=== PATIENT | male | born 1955 | race Caucasian/White ===

== ENCOUNTER → 2020-11-08 09:00 | Outpatient (BNVA) | payer MEDICARE, OTHER, SELFPAY | PROVIDERS: PCP Internal Medicine; Visit Provider Internal Medicine Cardiovascular Disease | DX: T82.09XA Other mechanical complication of heart valve prosthesis, initial encounter (principal); I51.7 Cardiomegaly; I10 Essential (primary) hypertension | CPT/HCPCS: 93005; 99202 ==

== ENCOUNTER → 2021-01-30 08:21 | Outpatient (REF) | payer MEDICARE, OTHER, SELFPAY ==
--- NOTE | 2021-01-30 08:25 | CA_ITS ---
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 Study Quality: Good ECG Rhythm: Sinus Conclusions: - 1. Normal LV systolic function with mild LVH with mildly dilated LV cavity with LVEF of 55-60% 2. Mildly dilated left atrium 3. Bioprosthetic mitral valve in place with mildly increased gradient is 6 mm Hg suggestive of probably mild stenosis 4. Normal RV systolic pressure 5. No gross pericardial effusion Findings Left Ventricle Mildly increased left ventricular cavity size. There is mildly increased left ventricular wall thickness. The left ventricular systolic function is normal. The visually estimated ejection fraction is between 55-60%. Diastolic function is indeterminate on the basis of available data. Wall Motion Rest Echo Findings The basal inferior and mid inferior segments are hypokinetic. All other scored wall segments showed normal motion. Right Ventricle Normal right ventricular cavity size and systolic function. Atria The left atrium is mildly dilated. There is no evidence of interatrial shunt. The right atrium is normal in size. Aortic Valve There is mild calcification of the aortic valve. There is no aortic valve stenosis. There is no aortic valve regurgitation. Mitral Valve A bioprosthetic mitral valve is present. The prosthetic mitral valve appears to be functioning abnormally. The mitral valve was not well visualized. There is no mitral valve regurgitation. The mean mitral valve gradient is 6.00 mmHg. The valve is well seated without any abnormal rocking motion. The mean gradient across the valve is increased and similar to the last echocardiogram. This may suggest mild stenosis. Pulmonic Valve The pulmonic valve was not well visualized. Tricuspid Valve Normal tricuspid valve structure. There is trace tricuspid valve regurgitation. The right ventricular systolic pressure is normal. The right ventricular systolic pressure is 20 mmHg. There is no evidence of pulmonary hypertension. Great Vessels All visible segments of the aorta are normal in size. The pulmonary artery was not well visualized. Venous The inferior vena cava is normal in size and collapses greater than 50% with inspiration. Pericardium/Pleural There is no evidence of pericardial effusion. Prior Study Comparison No significant change compared to prior study dated: 12/20/2016. Measurements 2D Linear Measurements IVSd: 1.26 0.6-0.9/0.6-1.0 cm LVIDd: 5.97 3.9-5.3/4.2-5.9 cm LVIDd Index: 2.75 2.4-3.2/2.2-3.1 cm/m2 LVIDs: 4.06 2.0-3.6 cm LVPWd: 1.26 0.7-1.1 cm Ao Root: 3.60 2.1-3.5 cm LA Diam: 5.00 2.7-3.8/3.0-4.0 cm LAIDs Index: 2.30 1.5-2.3 cm/m2 LV Mass: 415.15 67-162/88-224 g LV Mass Index: 191.31 43-95/49-115 g/m2 LVOT Diam: 2.60 3.0+(-)1.3 cm 2D Systolic Function EF 4C: 53.80 >55% EF 2C: 60.40 >55% EF BiP: 56.70 >55% Mitral Valve MV VTI: 0.66 MV Pk Jose: 1.81 MV Mn Jose: 1.02 MV Pk Grad: 13.00 MV Mn Grad: 5.00 MV Pk E: 1.17 MV PK A: 1.59 MV Decel Time: 195.00 E/A: 0.70 E'Lateral: 8.81 E'Medial: 5.77 E/E' Med: 20.30 E/E' Lat: 13.30 PHT: 57.00 MVA PHT: 3.86 MVA Continuity: 1.81 Decel [place]: 6.02 Aortic Valve AoV Pk Jose: 1.41 AoV Mn Jose: 0.95 AoV VTI: 0.36 AoV Pk Grad: 8.00 Aov Mn Grad: 4.00 ANDRES Cont.VTI: 3.30 LVOT LVOT Pk Jose: 0.99 LVOT Mn Jose: 0.63 LVOT VTI: 0.22 LVOT Pk Grad: 4.00 LVOT Mn Grad: 2.00 LVOT Diam: 2.60 LVOT Area: 5.31 Diastolic Function MV Pk E: 1.17 MV Pk A: 1.59 E/A: 0.70 E'Medial: 5.77 E/E' Med: 20.30 E' Laterial: 8.81 E/E' Lat: 13.30 Right Ventricle TAPSE (mm): 22.00 TVS' Jose: 11.00 Tricuspid Valve TR Pk Jose: 2.06 TR Pk Grad: 17.00 RA Press: 3.00 RVSP: 20.00 Great Vessels Aorta Ao Root-2D: 3.60 2.0-3.7 cm Ao Asc: 3.60 2.1-3.4 cm Pulmonary Valve PV Pk Jose: 1.14 Peak PV Grad: 5.00 Updated in Other Vendor System with Status of Final James Fernando MD electronically signed on 01/31/2021 11:29:42 AM with status of Final
== END ==
LOC: HO.CARD 08:21
PROVIDERS: PCP Internal Medicine; Visit Provider Internal Medicine Cardiovascular Disease
DX: T82.09XA Other mechanical complication of heart valve prosthesis, initial encounter (principal)
CPT/HCPCS: 93306

== ENCOUNTER → 2021-02-13 08:27 | Outpatient (BNVA) | payer MEDICARE, OTHER, SELFPAY | PROVIDERS: PCP Internal Medicine; Referring Provider Internal Medicine; Visit Provider Internal Medicine Cardiovascular Disease | DX: I51.7 Cardiomegaly (principal); T82.09XA Other mechanical complication of heart valve prosthesis, initial encounter; Z95.2 Presence of prosthetic heart valve | CPT/HCPCS: 99212 ==

== ENCOUNTER 2021-02-15 13:40 | Outpatient (REF) | payer MEDICARE, OTHER, SELFPAY ==
--- NOTE | ~2021-02-15 | XR_ITS ---
EXAMINATION: XR RIBS, LEFT CLINICAL INFORMATION: Fall. Left rib pain. COMPARISON: Most recent chest radiograph dated 06/21/2016. TECHNIQUE: PA view the chest as well as 4 views of the left ribs. FINDINGS: Left greater than right basilar atelectasis, unchanged. No pleural effusion or pneumothorax. Stable cardiomediastinal silhouette. Sternal wires and valvuloplasty. No displaced rib fracture. No lytic or blastic osseous lesion. No abnormal soft tissue calcification. XR/XR ribs LT min 3V w CXR1V IMPRESSION: No displaced rib fracture.
== END 2021-02-15 13:41 | disposition home or self-care (01) ==
LOC: HO.XRAY 13:40
PROVIDERS: PCP Internal Medicine; Visit Provider Internal Medicine
DX: R07.81 Pleurodynia (principal); Z91.81 History of falling
CPT/HCPCS: 71101

== ENCOUNTER 2021-03-05 10:14 | Outpatient (REF) | payer MEDICARE, OTHER, SELFPAY ==
[2021-03-05 11:23] LABS: Influenza A PCR NEGATIVE (Negative); Influenza B PCR NEGATIVE (Negative); Resp Syncy Virus RNA Qual PCR POSITIVE (Negative); SARS COV2 PCR INHOUSE NEGATIVE (Negative)
== END 2021-03-05 10:15 | disposition home or self-care (01) ==
LOC: HO.LNP 10:14
PROVIDERS: Visit Provider Internal Medicine
DX: Z20.822 Contact with and (suspected) exposure to COVID-19 (principal); R50.9 Fever, unspecified; J34.89 Other specified disorders of nose and nasal sinuses
CPT/HCPCS: 0241U

== ENCOUNTER → 2021-08-07 08:13 | Outpatient (BNVA) | payer MEDICARE, OTHER, SELFPAY | PROVIDERS: PCP Internal Medicine; Referring Provider Internal Medicine; Visit Provider Internal Medicine Cardiovascular Disease | DX: R00.2 Palpitations (principal); Z95.2 Presence of prosthetic heart valve | CPT/HCPCS: 99212 ==

== ENCOUNTER → 2021-08-09 07:13 | Outpatient (REF) | payer MEDICARE, OTHER, SELFPAY ==
--- NOTE | 2021-08-09 07:16 | HM_ITS ---
* Total monitoring time 3 days and 19 hours. * Underlying rhythm is sinus. Average 70/Min. Range 46 to 105/Min. * No atrial fibrillation or flutter or AV blocks or pauses. * Frequent supraventricular ectopy with a burden of 2.8%. * Very rare ventricular ectopy with minimal burden. * No patient events. MTDD
== END ==
LOC: HO.CARD 07:13
PROVIDERS: PCP Internal Medicine; Visit Provider Internal Medicine Cardiovascular Disease
DX: R00.2 Palpitations (principal)
CPT/HCPCS: 93242

== ENCOUNTER 2021-11-05 06:03 | Day surgery (SDC) | payer MEDICARE, OTHER, SELFPAY ==
[2021-10-29 19:51] VITALS: BMI 32.3
--- NOTE | 2021-11-01 13:36 | HO.ANESPROP2 ---
Documented by User: Rosanna Jessica NP 11/01/21 13:38 HPI - Anesthesia Eval Consult details Narrative: 66yo M for Upper Endoscopy and Colonoscopy with antibiotics *Multiple Med Allergies* [facility] Active Problems Active Problems: All Active Problems (Updated 10/29/21 @ 19:46 by Leandra Donato RN) S/P MVR (mitral valve replacement) (Acute) Prosthetic valve dysfunction (Acute) HTN (hypertension) (Acute) Palpitations (Acute) Past Medical History Medical History Asthma BPH (benign prostatic hyperplasia) COPD, mild Depression with anxiety Enlarged RV (right ventricle) GERD (gastroesophageal reflux disease) History of blood transfusion History of GI diverticular bleed Migraine Mitral regurgitation Obstructive sleep apnea PTSD (post-traumatic stress disorder) Type 2 diabetes mellitus Family History Family History Father Rheumatic fever Mother No problems noted. Sister Hx of aortic valve repair Brother Mitral valve replaced Surgical History Surgical History History of arthroscopy of right knee History of left inguinal hernia repair History of mitral valve replacement History of repair of left rotator cuff History of repair of right rotator cuff Hx of cardiac cath Social History Social History Patient Tobacco Use Status: Former Tobacco user Use of substances other than those prescribed or required for medical reasons: No Are you DNR?: No Advance Directives: Yes Advance Directives Information Provided: Yes Advance Directives on File: No (UNKNOWN) Advance Directives Date on File: 10/29/21 Recently lost weight without trying: No Nutrition Risks: No Nutritional Risk Meds Allergies Allergy/AdvReac Type Severity Reaction Status Date / Time DUSTIN Inhibitors Allergy Severe ANAPHYLAXIS Verified 11/05/21 06:46 [Dustin Inhibitors] thimerosal [Thimerosal] Allergy Severe ANGIOEDEMA Verified 11/05/21 06:36 aspartame [ASPARTAME] Allergy Unknown UNKNOWN Verified 11/05/21 06:36 aspirin Allergy Unknown Anaphylaxis Verified 10/29/21 19:43 Cephalosporins Allergy Unknown RASH Verified 11/05/21 06:36 [CEPHALOSPORINS] codeine [Codeine] Allergy Unknown wakes up Verified 11/05/21 06:47 combative fluoxetine [From PROZAC] Allergy Unknown REQUIRED Verified 11/05/21 06:36 HOSPITALIZATION hexachlorophene Allergy Unknown UNKNOWN Verified 11/05/21 06:36 [From PHISOHEX] melon Allergy Unknown UNKNOWN Verified 11/05/21 06:36 morphine Allergy Unknown wakes up Verified 11/05/21 06:49 combative NSAIDS (Non-Steroidal Allergy Unknown Anaphylaxis Verified 11/05/21 06:50 Anti-Inflamma [NSAIDS (NON-STEROIDAL ANTI-INFLAMMA] penicillin V Allergy Unknown Rash Verified 11/05/21 06:49 Penicillins Allergy Unknown Rash Verified 11/05/21 06:49 perfume Allergy Unknown UNKNOWN Verified 11/05/21 06:36 pineapple [PINEAPPLE] Allergy Unknown ANGIOEDEMA Verified 11/05/21 06:36 povidone-iodine Allergy Unknown UNKNOWN Verified 11/05/21 06:36 [From BETADINE] soap [Betadine] Allergy Unknown Unknown Verified 10/29/21 19:43 monosodium glutamate AdvReac Unknown HEADACHES Verified 11/05/21 06:46 aspartame Allergy Unknown Unknown Uncoded 10/29/21 19:43 dexon Allergy Unknown Unknown Uncoded 10/29/21 19:43 GLUE IN SHOES Allergy Unknown UNKNOWN Uncoded 02/03/20 15:43 melons Allergy Unknown Unknown Uncoded 10/29/21 19:43 PLASTIC TAPE Allergy Unknown skin Uncoded 11/05/21 06:49 problems POLYGLACTIC ACID(DEXON & Allergy Unknown UNKNOWN Uncoded 02/03/20 15:43 VICRYL) vicryl Allergy Unknown Unknown Uncoded 10/29/21 19:43 From Demerol AdvReac Unknown HALLUNICATI Uncoded 02/03/20 15:43 ON Home Medications Medication Instructions Recorded Confirmed Last Taken Type aspirin 81 mg tablet,delayed 81 mg PO DAILY 11/08/20 10/29/21 10/23/21 History release (Adult Aspirin Regimen) cholecalciferol (vitamin D3) 25 25 mcg PO DAILY 11/08/20 10/29/21 Unknown History mcg (1,000 unit) capsule clonazepam 0.5 mg tablet 0.5 mg PO DAILY PRN Anxiety 11/08/20 10/29/21 Unknown History epinephrine 0.3 mg/0.3 mL 0.3 mg IM Q10M PRN Allergic 11/08/20 10/29/21 Unknown History injection, auto-injector (EpiPen) Reaction finasteride 5 mg tablet 5 mg PO DAILY 11/08/20 10/29/21 Unknown History ipratropium 20 mcg-albuterol 100 1 puff inhalation Q6H 11/08/20 10/29/21 Unknown History mcg/actuation mist for inhalation (Combivent Respimat) ketoconazole 2 % topical cream 1 appl topical DAILY 11/08/20 10/29/21 Unknown History metformin 500 mg tablet,extended 500 mg PO DAILY 11/08/20 10/29/21 Unknown History release 24 hr metoprolol succinate 25 mg 25 mg PO DAILY 11/08/20 10/29/21 Unknown History tablet,extended release 24 hr mometasone (Asmanex Twisthaler) 2 inh inhalation BID 11/08/20 10/29/21 Unknown History oxybutynin chloride 10 mg 10 mg PO DAILY 11/08/20 10/29/21 Unknown History tablet,extended release 24 hr saw palmetto 160 mg capsule 320 mg PO DAILY 11/08/20 10/29/21 Unknown History terazosin 10 mg capsule 10 mg PO DAILY 11/08/20 10/29/21 Unknown History amlodipine 2.5 mg tablet 2.5 mg PO DAILY 02/13/21 10/29/21 Unknown History fluticasone propionate 50 1 spray intranasal DAILY 02/13/21 10/29/21 Unknown History mcg/actuation nasal spray,suspension montelukast 10 mg tablet 10 mg PO DAILY 02/13/21 10/29/21 Unknown History omeprazole 20 mg capsule,delayed 20 mg PO BID 02/13/21 10/29/21 Unknown History release azithromycin 500 mg tablet 500 mg PO DAILY 10/29/21 10/29/21 Unknown History Exam Exam Date and Time: November 01, 2021 1336 Height,Weight and Vital Signs: Height 5 ft 10 in Weight 102.058 kg Narrative Narrative: 3 day Holter 07/2021 Total monitoring time 3 days and 19 hours. Underlying rhythm is sinus.? Average 70/Min.? Range 46 to 105/Min. No atrial fibrillation or flutter or AV blocks or pauses. Frequent supraventricular ectopy with a burden of 2.8%. Very rare ventricular ectopy with minimal burden. No patient events. ECHO 01/2021 Conclusions: - ? 1. Normal LV systolic function with mild LVH with mildly ? ? dilated LV cavity with LVEF of 55-60%? 2. Mildly dilated left atrium? 3. Bioprosthetic mitral valve in place with mildly increased ? ? gradient is 6 mm Hg suggestive of probably mild stenosis ? 4. Normal RV systolic pressure ? 5. No gross pericardial effusion ? Documented by User: Radha Barba MD 11/05/21 08:03 [facility] Past Medical History Medical History Asthma BPH (benign prostatic hyperplasia) COPD, mild Depression with anxiety Enlarged RV (right ventricle) GERD (gastroesophageal reflux disease) History of blood transfusion History of GI diverticular bleed Migraine Mitral regurgitation Obstructive sleep apnea PTSD (post-traumatic stress disorder) Type 2 diabetes mellitus Family History Family History Father Rheumatic fever Mother No problems noted. Sister Hx of aortic valve repair Brother Mitral valve replaced Surgical History Surgical History History of arthroscopy of right knee History of left inguinal hernia repair History of mitral valve replacement History of repair of left rotator cuff History of repair of right rotator cuff Hx of cardiac cath History of Problems with Anesthesia: No Social History Social History Patient Tobacco Use Status: Former Tobacco user Use of substances other than those prescribed or required for medical reasons: No Are you DNR?: No Advance Directives: Yes Advance Directives Information Provided: Yes Advance Directives on File: No (UNKNOWN) Advance Directives Date on File: 10/29/21 Recently lost weight without trying: No Nutrition Risks: No Nutritional Risk Meds Allergies Allergy/AdvReac Type Severity Reaction Status Date / Time DUSTIN Inhibitors Allergy Severe ANAPHYLAXIS Verified 11/05/21 06:46 [Dustin Inhibitors] thimerosal [Thimerosal] Allergy Severe ANGIOEDEMA Verified 11/05/21 06:36 aspartame [ASPARTAME] Allergy Unknown UNKNOWN Verified 11/05/21 06:36 aspirin Allergy Unknown Anaphylaxis Verified 10/29/21 19:43 Cephalosporins Allergy Unknown RASH Verified 11/05/21 06:36 [CEPHALOSPORINS] codeine [Codeine] Allergy Unknown wakes up Verified 11/05/21 06:47 combative fluoxetine [From PROZAC] Allergy Unknown REQUIRED Verified 11/05/21 06:36 HOSPITALIZATION hexachlorophene Allergy Unknown UNKNOWN Verified 11/05/21 06:36 [From PHISOHEX] melon Allergy Unknown UNKNOWN Verified 11/05/21 06:36 morphine Allergy Unknown wakes up Verified 11/05/21 06:49 combative NSAIDS (Non-Steroidal Allergy Unknown Anaphylaxis Verified 11/05/21 06:50 Anti-Inflamma [NSAIDS (NON-STEROIDAL ANTI-INFLAMMA] penicillin V Allergy Unknown Rash Verified 11/05/21 06:49 Penicillins Allergy Unknown Rash Verified 11/05/21 06:49 perfume Allergy Unknown UNKNOWN Verified 11/05/21 06:36 pineapple [PINEAPPLE] Allergy Unknown ANGIOEDEMA Verified 11/05/21 06:36 povidone-iodine Allergy Unknown UNKNOWN Verified 11/05/21 06:36 [From BETADINE] soap [Betadine] Allergy Unknown Unknown Verified 10/29/21 19:43 monosodium glutamate AdvReac Unknown HEADACHES Verified 11/05/21 06:46 aspartame Allergy Unknown Unknown Uncoded 10/29/21 19:43 dexon Allergy Unknown Unknown Uncoded 10/29/21 19:43 GLUE IN SHOES Allergy Unknown UNKNOWN Uncoded 02/03/20 15:43 melons Allergy Unknown Unknown Uncoded 10/29/21 19:43 PLASTIC TAPE Allergy Unknown skin Uncoded 11/05/21 06:49 problems POLYGLACTIC ACID(DEXON & Allergy Unknown UNKNOWN Uncoded 02/03/20 15:43 VICRYL) vicryl Allergy Unknown Unknown Uncoded 10/29/21 19:43 From Demerol AdvReac Unknown HALLUNICATI Uncoded 02/03/20 15:43 ON Home Medications Medication Instructions Recorded Confirmed Last Taken Type aspirin 81 mg tablet,delayed 81 mg PO DAILY 11/08/20 10/29/21 10/23/21 History release (Adult Aspirin Regimen) cholecalciferol (vitamin D3) 25 25 mcg PO DAILY 11/08/20 10/29/21 Unknown History mcg (1,000 unit) capsule clonazepam 0.5 mg tablet 0.5 mg PO DAILY PRN Anxiety 11/08/20 10/29/21 Unknown History epinephrine 0.3 mg/0.3 mL 0.3 mg IM Q10M PRN Allergic 11/08/20 10/29/21 Unknown History injection, auto-injector (EpiPen) Reaction finasteride 5 mg tablet 5 mg PO DAILY 11/08/20 10/29/21 Unknown History ipratropium 20 mcg-albuterol 100 1 puff inhalation Q6H 11/08/20 10/29/21 Unknown History mcg/actuation mist for inhalation (Combivent Respimat) ketoconazole 2 % topical cream 1 appl topical DAILY 11/08/20 10/29/21 Unknown History metformin 500 mg tablet,extended 500 mg PO DAILY 11/08/20 10/29/21 Unknown History release 24 hr metoprolol succinate 25 mg 25 mg PO DAILY 11/08/20 10/29/21 Unknown History tablet,extended release 24 hr mometasone (Asmanex Twisthaler) 2 inh inhalation BID 11/08/20 10/29/21 Unknown History oxybutynin chloride 10 mg 10 mg PO DAILY 11/08/20 10/29/21 Unknown History tablet,extended release 24 hr saw palmetto 160 mg capsule 320 mg PO DAILY 11/08/20 10/29/21 Unknown History terazosin 10 mg capsule 10 mg PO DAILY 11/08/20 10/29/21 Unknown History amlodipine 2.5 mg tablet 2.5 mg PO DAILY 02/13/21 10/29/21 Unknown History fluticasone propionate 50 1 spray intranasal DAILY 02/13/21 10/29/21 Unknown History mcg/actuation nasal spray,suspension montelukast 10 mg tablet 10 mg PO DAILY 02/13/21 10/29/21 Unknown History omeprazole 20 mg capsule,delayed 20 mg PO BID 02/13/21 10/29/21 Unknown History release azithromycin 500 mg tablet 500 mg PO DAILY 10/29/21 10/29/21 Unknown History Exam Airway Mallampati Class: III (Receding chin) TM Dist: <=3cm Neck ROM: Limited Loose/Missing/Broken Teeth: No Heart: RRR Lungs: CTA Assessment and Plan Assessment Anesthesia Assessment: Anesthesia Plan Discussed and Chart Reviewed Final Anesthetic Review History of Problems with Anesthesia: No NPO: Yes ASA Class: III Final Preanesthetic Review: Meds/Allgs Chart Reviewed, Consent Obtained/Reviewed and Anes Risks/Benef Reviewed Patient Risk: Intermediate Procedure Risk: Intermediate Anesthetic Plan Anesthetic Plan: MAC: Disposition: Standard PACU
--- NOTE | 2021-11-05 | ECG_ITS ---
Test Reason : pre-op Blood Pressure : / mmHG Vent. Rate : 064 BPM Atrial Rate : 064 BPM P-R Int : 196 ms QRS Dur : 134 ms QT Int : 480 ms P-R-T Axes : -11 -21 015 degrees QTc Int : 495 ms Sinus rhythm with Premature atrial complexes Right bundle branch block Abnormal ECG When compared with ECG of 20-JUN-2016 19:03, No significant change was found Referred By: Rosanna Jessica Electronically Signed By:BASILIA VERONICA MD
[2021-11-05 06:06] VITALS: BP 163/77; PULSE 62; RESP 19; TEMP 36.1; O2SAT 97
[2021-11-05] MEDS: Gentamicin Sulfate/NaCl 80 MG/100 ML PIGGYBACK 100 MG IV (06:15)
[2021-11-05 06:20] LABS: Glucose, Whole Blood 175 mg/dL (60-115)
[2021-11-05] MEDS: vancomycin HCL 1,500 MG in 0.9 % Sodium Chloride 500 ML 333.33 MG IV (06:38)
[2021-11-05] MEDS: Lactated Ringers 1,000 ML 50 ML IVCONT (06:41)
[2021-11-05] MEDS: Sodium Phosphate,Mono-Dibasic 133 ML ENEMA PR (06:43)
[2021-11-05 06:59] LABS: Hematocrit 42.2 % (42.0-52.0); Hemoglobin 14.5 g/dl (14.0-18.0); Mean Corpuscular HGB Conc 34.4 g/dl (31.0-36.0); Mean Corpuscular Hemoglobin 30.9 pg (27.0-33.0); Mean Corpuscular Volume 89.8 fL (80.0-98.0); Mean Platelet Volume 9.8 fL (9.4-12.4); Platelet Count 129 X10*3/uL (160-400)
[2021-11-05 07:07] LABS: INTERNATIONAL NORM RATIO 1.2 (0.9-1.1); Prothrombin Time 13.6 SEC (9.9-13.0)
[2021-11-05 07:16] LABS: Anion Gap 14 (12-20); Blood Urea Nitrogen 8 mg/dL (9-16); Calcium 8.6 mg/dL (8.4-10.2); Carbon Dioxide 22 mmol/L (22-29); Chloride 106 mmol/L (96-108); Creatinine Clr Calc Pharmacy 104.4; Estimated Glomerular Filt Rate > 60; Glucose Fasting 189 mg/dL (60-99); Potassium 3.7 mmol/L (3.3-5.1); Sodium 138 mmol/L (135-145)
--- NOTE | 2021-11-05 07:33 | PC.NURSE ---
results from fleets yellow liquid
[2021-11-05 08:38] VITALS: BP 97/60; PULSE 61; RESP 20; TEMP 36.6; O2SAT 96
--- NOTE | 2021-11-05 08:46 | P.BOP_ITS ---
Brief Operative Note Date of Service: 11/05/21 Pre-op diagnosis: Romeo's, Screening Post-op diagnosis: other (Hiatal hernia, Romeo's, Diverticulosis) Procedure: EGD with biopsies, Colonoscopy to the cecum Surgeon: Migel Alvarado Anesthesia: MAC Was an Fabrication Machine Operator used for this Procedure?: No Estimated blood loss (mL): 2.0 Pathology: other (A. Esophagus 39-40cm) Condition: stable Disposition: PACU
[2021-11-05 08:53] VITALS: BP 120/81; PULSE 64; RESP 18; TEMP 36.8; O2SAT 93
--- NOTE | 2021-11-05 10:35 | OP_ITS ---
SURGEON: Migel Alvarado MD INDICATIONS: The patient presents for followup of Romeo's esophagus, personal history of tubular adenoma of the colon, family history of colon cancer, and colorectal cancer screening. Full consent has been obtained from him for this, including risks of bleeding and perforation. PREOPERATIVE DIAGNOSIS: POSTOPERATIVE DIAGNOSIS: PROCEDURE PERFORMED: Esophagogastroduodenoscopy with biopsies, and colonoscopy to the cecum. ESTIMATED BLOOD LOSS: COMPLICATIONS: ANESTHESIA: Medication used, monitored anesthesia care. ASSISTANTS: SPECIMENS: PREOPERATIVE DIAGNOSES: Romeo's esophagus and colorectal cancer screening. POSTOPERATIVE DIAGNOSES: Romeo's esophagus and colorectal cancer screening, hiatal hernia, diverticulosis, internal hemorrhoids. DESCRIPTION OF PROCEDURE: The patient was placed in the left lateral decubitus position. The Olympus video gastroscope was passed in the posterior oropharynx and upper esophagus under direct vision. The scope was passed slowly to the distal esophagus. The gastroesophageal junction appeared at 40 cm. Extending from this to 39 cm was a noncircumferential segment of probable Romeo's mucosa. There was no evidence of any lesions nor esophagitis. There was no stricture nor mass. The scope entered into the stomach. There was a small hiatal hernia. The scope was advanced to the pylorus and the duodenum was cannulated to the descending portion. The duodenum, including the bulb, appeared normal without mass or ulceration. The scope was withdrawn back into the stomach, the gastric antrum and body appeared normal with good peristalsis. The scope was retroflexed visualizing the proximal stomach carefully, which appeared normal, without mass or ulceration, other than known gastric polyps, which had been biopsied in the past. The scope was straightened and withdrawn back to the esophagus. Multiple biopsies were obtained between 39 and 40 cm in the area of what appeared to be Romeo's mucosa. Proximal to 39 cm, the esophageal mucosa appeared normal. The scope was withdrawn from the patient. He was turned around for the colonoscopy. The digital rectal exam revealed no abnormalities. The Olympus video pediatric colonoscope was entered into the rectum and advanced to the cecum with the assistance of abdominal pressure throughout the majority of the time the scope was being advanced. Once in the cecum, I did identify a normal-appearing cecal pouch with appendiceal orifice and a normal-appearing ileocecal valve. The entire cecum was well visualized and appeared normal. The ileocecal valve appeared normal. The scope was slowly withdrawn assessing all mucosal surfaces carefully. Preparation was excellent throughout the colon although he had extensive diverticulosis extending from the sigmoid colon to the ascending colon. There was a fair amount of spasm and some liquid in the sigmoid colon, although with irrigation and suctioning, this was for the most part cleared away. I did not visualize any sign of polyps, colitis, nor angiodysplasia. In the rectum, the scope was retroflexed visualizing some small internal hemorrhoids but no other pathology. The rectal mucosa appeared normal. The scope was straightened and withdrawn from the patient. He tolerated the procedure well and was returned to the recovery area in stable condition. IMPRESSION: 1. Small hiatal hernia, history of Romeo's esophagus. 2. Diverticulosis. 3. Internal hemorrhoids. PLAN: The results of the biopsies will be checked. Assuming there is no dysplasia, I would recommend a repeat upper endoscopy in 3 years. Given his previous history of tubular adenomas of the colon, and family history of colon cancer, I would recommend a followup colonoscopy at that time as well. He will otherwise see me on a p.r.n. basis. He will continue his daily omeprazole. This has been discussed with his . He was advised to resume his aspirin in 48 hours. MD PRINCE Galloway/LORENA / [id number] MTDD
== END 2021-11-05 09:20 | disposition home or self-care (01) ==
PROVIDERS: Nurse Practitioner; PCP Internal Medicine; Visit Provider Internal Medicine
PROC: (CPT 43239; principal; 2021-11-05 07:30)
DX: Z12.11 Encounter for screening for malignant neoplasm of colon (principal); Z86.010 Personal history of colon polyps; Z80.0 Family history of malignant neoplasm of digestive organs; K57.30 Diverticulosis of large intestine without perforation or abscess without bleeding; K64.8 Other hemorrhoids; K21.9 Gastro-esophageal reflux disease without esophagitis; K22.70 Barrett's esophagus without dysplasia; K31.7 Polyp of stomach and duodenum; K44.9 Diaphragmatic hernia without obstruction or gangrene; N40.0 Benign prostatic hyperplasia without lower urinary tract symptoms; I10 Essential (primary) hypertension; G47.33 Obstructive sleep apnea (adult) (pediatric); J44.9 Chronic obstructive pulmonary disease, unspecified; E11.9 Type 2 diabetes mellitus without complications; Z79.84 Long term (current) use of oral hypoglycemic drugs; Z79.51 Long term (current) use of inhaled steroids; Z79.82 Long term (current) use of aspirin; Z79.899 Other long term (current) drug therapy; Z87.891 Personal history of nicotine dependence; Z88.8 Allergy status to other drugs, medicaments and biological substances; Z88.0 Allergy status to penicillin
CPT/HCPCS: 43239; G0105; 36415; 80048; 82947; 85027; 85610; 88305; 93005; J1580; J3370

== ENCOUNTER → 2022-01-18 07:16 | Outpatient (REF) | payer MEDICARE, OTHER, SELFPAY ==
--- NOTE | 2022-01-18 07:23 | CA_ITS ---
Transthoracic Echocardiogram Patient (Last, First, Middle): Jared Jama, Gender: Male Date of : 1955 Age: 66 Procedure Date: 01/18/2022 Procedure Type: Transthoracic Echocardiogram Location: OP Height: 170.18 cm Weight: 111.13 kg BSA: 2.20 m2 Heart Rate: 58 bpm BP: 142 / 78 mmHg Inside Steward/Stewardess: KAYLA Referring MD: James Fernando MD Financial Auditor: James Fernando MD Symptoms: T82.09XA - Other mechanical complication of heart valve p... Study Quality: Adequate ECG Rhythm: Bradycardia Conclusions: - 1. Mildly dilated left ventricle with low normal LVEF of 50-55% with impaired relaxation filling pattern 2. Bioprosthetic mitral valve with mean gradient of 5 mm Hg, unchanged from before with trivial mitral regurgitation. 3. Mildly dilated left atrium 4. Normal RV systolic pressure 5. No gross pericardial effusion Findings Left Ventricle Mildly increased left ventricular cavity size. There is normal left ventricular wall thickness. The left ventricular systolic function is low normal. The visually estimated ejection fraction is between 50-55%. Regional wall motion abnormalities can not be excluded due to suboptimal endocardial definition. There is paradoxical septal motion consistent with post-operative status. Spectral Doppler is indicative of an impaired relaxation filling pattern. Right Ventricle The right ventricle was not well visualized. Mildly increased right ventricular cavity size. Atria The left atrium is mildly dilated. Interatrial shunt cannot be excluded. The right atrium was not well visualized. Aortic Valve There is mild calcification of the aortic valve. There is mild thickening of the aortic valve. There is no aortic valve stenosis. There is no aortic valve regurgitation. Mitral Valve A bioprosthetic mitral valve is present. There is trace mitral valve regurgitation. The mean mitral valve gradient is 5.00 mmHg. the bioprosthetic valve is well seated without any abnormal rocking motion Pulmonic Valve The pulmonic valve was not well visualized. There is trace pulmonic valve regurgitation. Tricuspid Valve Likely normal tricuspid valve structure and function. There is trace tricuspid valve regurgitation. The right ventricular systolic pressure is normal. The right ventricular systolic pressure is 20 mmHg. Normal right atrial pressure. There is no evidence of pulmonary hypertension. Great Vessels All visible segments of the aorta are normal in size. The pulmonary artery was not well visualized. Venous The inferior vena cava is normal in size and collapses greater than 50% with inspiration. Pericardium/Pleural There is no evidence of pericardial effusion. Prior Study Comparison Changes noted compared to prior study dated: 01/30/2021. LV systolic function may be marginally reduced Measurements 2D Linear Measurements IVSd: 1.29 0.6-0.9/0.6-1.0 cm LVIDd: 6.35 3.9-5.3/4.2-5.9 cm LVIDd Index: 2.89 2.4-3.2/2.2-3.1 cm/m2 LVIDs: 4.07 2.0-3.6 cm LVPWd: 0.89 0.7-1.1 cm LA Diam: 5.50 2.7-3.8/3.0-4.0 cm LAIDs Index: 2.50 1.5-2.3 cm/m2 LV Mass: 379.87 67-162/88-224 g LV Mass Index: 172.67 43-95/49-115 g/m2 LVOT Diam: 2.70 3.0+(-)1.3 cm 2D Systolic Function EF 4C: 51.40 >55% EF 2C: 54.80 >55% EF BiP: 51.10 >55% Mitral Valve MV VTI: 0.45 MV Pk Jose: 1.82 MV Mn Jose: 1.08 MV Pk Grad: 13.00 MV Mn Grad: 5.00 MV Pk E: 0.95 MV PK A: 1.57 MV Decel Time: 400.00 E/A: 0.60 E'Lateral: 4.87 E'Medial: 5.43 E/E' Med: 17.50 E/E' Lat: 19.50 PHT: 117.00 MVA PHT: 1.88 MVA Continuity: 1.99 Decel [place]: 2.37 Aortic Valve AoV Pk Jose: 1.24 AoV Mn Jose: 0.91 AoV VTI: 0.25 AoV Pk Grad: 6.00 Aov Mn Grad: 4.00 ANDRES Cont.VTI: 3.54 LVOT LVOT Pk Jose: 0.89 LVOT Mn Jose: 0.61 LVOT VTI: 0.16 LVOT Pk Grad: 3.00 LVOT Mn Grad: 2.00 LVOT Diam: 2.70 LVOT Area: 5.73 Diastolic Function MV Pk E: 0.95 MV Pk A: 1.57 E/A: 0.60 E'Medial: 5.43 E/E' Med: 17.50 E' Laterial: 4.87 E/E' Lat: 19.50 Tricuspid Valve TR Pk Jose: 2.07 TR Pk Grad: 17.00 RA Press: 3.00 RVSP: 20.00 Great Vessels Aorta Sinus of Valsalva: 3.80 2.0-3.5 cm Ao Asc: 3.70 2.1-3.4 cm Pulmonary Valve PV Pk Jose: 0.96 Peak PV Grad: 4.00 Updated in Other Vendor System with Status of Final James Fernando MD electronically signed on 01/21/2022 11:28:07 AM with status of Final
== END ==
LOC: HO.CARD 07:16
PROVIDERS: PCP Internal Medicine; Visit Provider Internal Medicine Cardiovascular Disease
DX: T82.09XA Other mechanical complication of heart valve prosthesis, initial encounter (principal)
CPT/HCPCS: 93306

== ENCOUNTER → 2022-01-24 09:20 | Outpatient (BNVA) | payer MEDICARE, OTHER, SELFPAY | PROVIDERS: PCP Internal Medicine; Referring Provider Internal Medicine; Visit Provider Internal Medicine Cardiovascular Disease | DX: I49.1 Atrial premature depolarization (principal); Z95.2 Presence of prosthetic heart valve; Z79.82 Long term (current) use of aspirin | CPT/HCPCS: 99212 ==

== ENCOUNTER → 2022-04-19 10:04 | Outpatient (BNVA) | payer MEDICARE, OTHER, SELFPAY | PROVIDERS: PCP Internal Medicine; Referring Provider Internal Medicine; Visit Provider Surgery | DX: L98.9 Disorder of the skin and subcutaneous tissue, unspecified (principal) | CPT/HCPCS: 99202 ==

== ENCOUNTER 2022-05-27 16:50 | Outpatient (REF) | payer MEDICARE, OTHER, SELFPAY ==
--- NOTE | ~2022-05-27 | XR_ITS ---
EXAMINATION: XR CHEST CLINICAL INFORMATION: Cough COMPARISON: X-ray 02/15/2021 TECHNIQUE: 2 views of the chest were obtained. FINDINGS: Sternotomy wires. Stable cardiomediastinal silhouette. Prosthetic valve. Bronchial wall thickening and peribronchial opacities in bilateral lower lungs. There is streaky opacities in the left lung base. No effusion, edema or pneumothorax. Dorsal spine degeneration. XR/XR chest 2V IMPRESSION: Bronchial wall thickening can be seen with a small airway process such as asthma or atypical/viral infections. She acute opacity left lung base, could represent atelectasis or developing infiltrates.. Recommendation is for a follow-up chest series to be obtained following treatment and/or resolution of symptoms to ensure resolution of this appearance.
[2022-05-27 17:05] LABS: MANUAL DIFF FLAG NO
[2022-05-27 17:24] LABS: Basophils Absolute Auto 0.1 X10*3/uL (0.0-0.2); Basophils Percent Auto 0.8 % (0-2); Eosinophils Absolute Auto 0.2 X10*3/uL (0.0-0.4); Eosinophils Percent Auto 3.4 % (0-4); Hematocrit 41.3 % (42.0-52.0); Hemoglobin 14.1 g/dl (14.0-18.0); Imm Gran Abs Auto 0.03 X10*3/uL (0.00-0.03); Imm Gran Pct Auto 0.5 % (0.0-0.4); Lymphocytes Absolute Auto 1.1 X10*3/uL (1.2-4.9); Lymphocytes Percent Auto 19.1 % (20-40); Mean Corpuscular HGB Conc 34.1 g/dl (31.0-36.0); Mean Corpuscular Hemoglobin 30.2 pg (27.0-33.0); Mean Corpuscular Volume 88.4 fL (80.0-98.0); Mean Platelet Volume 10.1 fL (9.4-12.4); Monocytes Absolute Auto 0.4 X10*3/uL (0.1-1.2); Monocytes Percent Auto 6.7 % (2-11); Neutrophils Absolute Auto 4.2 x10*3/uL (2.0-8.3); Neutrophils Percent Auto 69.5 % (45-73); Platelet Count 138 X10*3/uL (160-400); Red Blood Count 4.67 X10*6/uL (4.60-5.80); Red Cell Distribution Width 12.8 % (11.0-16.0)
[2022-05-27 17:43] LABS: Alanine Aminotransferase 20 U/L (0-40); Albumin Level 3.8 g/dL (3.5-5.0); Alkaline Phosphatase 57 U/L (39-117); Anion Gap 13 (12-20); Aspartate Amino Transferase 13 U/L (5-37); Bilirubin Total 0.3 mg/dL (0.0-1.0); Blood Urea Nitrogen 19 mg/dL (9-16); Calcium 9.1 mg/dL (8.4-10.2); Carbon Dioxide 23 mmol/L (22-29); Chloride 106 mmol/L (96-108); Estimated Glomerular Filt Rate > 60; Glucose Random 307 mg/dL (60-115); Sodium 138 mmol/L (135-145); Total Protein 6.6 g/dL (6.5-8.0)
[2022-05-27 17:45] LABS: B Type Natriuretic Peptide 81 pg/mL (<100)
[2022-05-27 17:59] LABS: Influenza A PCR NEGATIVE (Negative); Influenza B PCR NEGATIVE (Negative); Resp Syncy Virus RNA Qual PCR NEGATIVE (Negative); SARS COV2 PCR INHOUSE NEGATIVE (Negative)
== END 2022-05-27 16:51 | disposition home or self-care (01) ==
LOC: HO.LAB 16:50
PROVIDERS: PCP Internal Medicine; Visit Provider Internal Medicine
DX: R05.9 Cough, unspecified (principal); R06.02 Shortness of breath
CPT/HCPCS: 0241U; 71046; 80053; 83880; 85025

== ENCOUNTER 2022-05-28 10:56 | Outpatient (REF) | payer MEDICARE, OTHER, SELFPAY ==
[2022-05-28 14:21] LABS: Estimated Average Glucose 229 mg/dL; Hemoglobin A1c % 9.6 %
[2022-05-28 14:33] LABS: Creatinine Urine 90.19 mg/dL; Microalbum/Creatinine Ratio Ur 33.2 ug/mg cr
== END 2022-05-28 10:57 | disposition home or self-care (01) ==
LOC: HO.10HDL 10:56
PROVIDERS: Visit Provider Internal Medicine
DX: E11.9 Type 2 diabetes mellitus without complications (principal)
CPT/HCPCS: 36415; 82043; 83036

== ENCOUNTER 2022-06-25 10:49 | Outpatient (REF) | payer MEDICARE, OTHER, SELFPAY ==
[2022-06-25 11:01] VITALS: BP 152/85; PULSE 75; RESP 16; TEMP 36.6; O2SAT 94
[2022-06-25 11:03] VITALS: BMI 34.0
[2022-06-25 11:31] VITALS: BP 131/73; PULSE 73; RESP 16; O2SAT 95
--- NOTE | 2022-06-26 13:01 | W.PM.OPN ---
Operative Note Operative Note Date of Service: 06/26/22 Narrative: Preoperative diagnosis: Skin lesion left posterior shoulder Postoperative diagnosis: Same Procedure: Excision of skin lesion left posterior shoulder Surgeon: German Lopez MD Toxicology Supervisor: None Anesthesia: Local, lidocaine 2% plain Indications for procedure: 67-year-old male patient presenting with a slowly enlarging scaly lesion located on the left posterior shoulder measuring 6 mm in diameter. Operative findings: 6 mm slightly irregularly shaped and scaly brown lesion located in the posterior left shoulder. Specimen: Skin lesion left shoulder Estimated blood loss: 2 mL Complications: None Procedure details: Patient was brought to the minor surgery suite and placed in a right lateral decubitus position. The site of surgery was confirmed by the patient in the posterior left shoulder. After assuring informed consent the skin was prepped with Betadine and draped in a sterile fashion. An elliptical incision was then made with scalpel oriented transversely. This carried out through subcutaneous tissue and around the skin lesion. The lesion was passed off the table and sent to pathology for further examination. Hemostasis was assured using light pressure. Skin was then closed using interrupted 4-0 nylon sutures. Tegaderm dressing was then applied. The patient tolerated the procedure well. He was discharged to home in stable condition.
== END 2022-06-25 10:50 | disposition home or self-care (01) ==
LOC: HO.MS 10:49
PROVIDERS: PCP Internal Medicine; Visit Provider Surgery
PROC: (CPT 11402; principal; 2022-06-25 11:00)
DX: L82.1 Other seborrheic keratosis (principal)
CPT/HCPCS: 11402; 88305

== ENCOUNTER → 2022-07-02 09:09 | Outpatient (BNVA) | payer MEDICARE, OTHER, SELFPAY | PROVIDERS: PCP Internal Medicine; Visit Provider Surgery | DX: Z13.89 Encounter for screening for other disorder (principal) | CPT/HCPCS: 99212 ==

== ENCOUNTER 2022-09-30 06:01 | Outpatient (REF) | payer MEDICARE, OTHER, SELFPAY ==
[2022-09-30 07:41] LABS: Creatinine Urine 58.22 mg/dL
[2022-09-30 07:46] LABS: Alanine Aminotransferase 20 U/L (0-40); Albumin Level 3.9 g/dL (3.5-5.0); Alkaline Phosphatase 43 U/L (39-117); Anion Gap 10 (12-20); Aspartate Amino Transferase 16 U/L (5-37); Bilirubin Total 0.9 mg/dL (0.0-1.0); Blood Urea Nitrogen 14 mg/dL (9-16); Calcium 9.3 mg/dL (8.4-10.2); Carbon Dioxide 27 mmol/L (22-29); Chloride 104 mmol/L (96-108); Estimated Glomerular Filt Rate > 60; Glucose Random 215 mg/dL (60-115); Potassium 4.3 mmol/L (3.3-5.1); Sodium 137 mmol/L (135-145); Total Protein 6.5 g/dL (6.5-8.0)
[2022-09-30 07:48] LABS: Estimated Average Glucose 200 mg/dL; Hemoglobin A1c % 8.6 %
== END 2022-09-30 06:02 | disposition home or self-care (01) ==
LOC: HO.LAB 06:01
PROVIDERS: PCP Internal Medicine; Visit Provider Internal Medicine
DX: E11.9 Type 2 diabetes mellitus without complications (principal); K21.9 Gastro-esophageal reflux disease without esophagitis; I10 Essential (primary) hypertension
CPT/HCPCS: 36415; 80053; 82043; 83036

== ENCOUNTER → 2022-10-01 09:01 | Outpatient (BNVA) | payer MEDICARE, OTHER, SELFPAY | PROVIDERS: PCP Internal Medicine; Visit Provider Urology | DX: N40.1 Benign prostatic hyperplasia with lower urinary tract symptoms (principal); R39.12 Poor urinary stream | CPT/HCPCS: 51798; 99202 ==

== ENCOUNTER 2022-11-13 12:47 | Outpatient (AMB) | payer MEDICARE, OTHER, SELFPAY ==
--- NOTE | 2022-11-13 12:59 | A.OFFVIS_ITS ---
Intake Intake Visit Reasons: Cysto(cipro only) Intake Note: Patient presents today for a CYSTO Procedure, allergic to Betadine. * Meds: Finasteride * Allergies to Antibiotic- Penicillins * Blood Thinner: Aspirin * Urinalysis test clear for Cysto Disposible Uro-G Cystoscope Cannula * Lot: [id number] * Exp: 10/10/2024 Chuck Tender Required: No Accompanied by: Significant Other Allergies DUSTIN Inhibitors [Dustin Inhibitors] Allergy (Severe, Verified 01/16/23 09:57) ANAPHYLAXIS thimerosal [Thimerosal] Allergy (Severe, Verified 01/16/23 09:57) ANGIOEDEMA tamsulosin Allergy (Mild, Verified 01/16/23 09:57) tacycardia aspartame [ASPARTAME] Allergy (Unknown, Verified 01/16/23 09:57) UNKNOWN aspirin Allergy (Unknown, Verified 01/16/23 09:57) Anaphylaxis Cephalosporins [CEPHALOSPORINS] Allergy (Unknown, Verified 01/16/23 09:57) RASH codeine [Codeine] Allergy (Unknown, Verified 01/16/23 09:57) wakes up combative fluoxetine [From PROZAC] Allergy (Unknown, Verified 01/16/23 09:57) REQUIRED HOSPITALIZATION hexachlorophene [From PHISOHEX] Allergy (Unknown, Verified 01/16/23 09:57) UNKNOWN melon Allergy (Unknown, Verified 01/16/23 09:57) UNKNOWN morphine Allergy (Unknown, Verified 01/16/23 09:57) wakes up combative NSAIDS (Non-Steroidal Anti-Inflamma [NSAIDS (NON-STEROIDAL ANTI-INFLAMMA] Allergy (Unknown, Verified 01/16/23 09:57) Anaphylaxis penicillin V Allergy (Unknown, Verified 01/16/23 09:57) Rash Penicillins Allergy (Unknown, Verified 01/16/23 09:57) Rash perfume Allergy (Unknown, Verified 01/16/23 09:57) UNKNOWN pineapple [PINEAPPLE] Allergy (Unknown, Verified 01/16/23 09:57) ANGIOEDEMA povidone-iodine [From BETADINE] Allergy (Unknown, Verified 01/16/23 09:57) UNKNOWN soap [Betadine] Allergy (Unknown, Verified 01/16/23 09:57) Unknown monosodium glutamate Adverse Reaction (Unknown, Verified 01/16/23 09:57) HEADACHES aspartame Allergy (Unknown, Uncoded 01/16/23 09:57) Unknown dexon Allergy (Unknown, Uncoded 01/16/23 09:57) Unknown GLUE IN SHOES Allergy (Unknown, Uncoded 01/16/23 09:57) UNKNOWN melons Allergy (Unknown, Uncoded 01/16/23 09:57) Unknown PLASTIC TAPE Allergy (Unknown, Uncoded 01/16/23 09:57) skin problems POLYGLACTIC ACID(DEXON & VICRYL) Allergy (Unknown, Uncoded 01/16/23 09:57) UNKNOWN vicryl Allergy (Unknown, Uncoded 01/16/23 09:57) Unknown From Demerol Adverse Reaction (Unknown, Uncoded 01/16/23 09:57) HALLUNICATION HPI HPI Comments History of Present Illness Details Jared is a pleasant male. He is a patient of Dr. Atkinson. 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 Cystoscopy Bladder neck open Trabeculation grade 3 Small diverticulum Recommend trial bethanechol Lower urinary tract symptoms Progressive weakness of stream, nocturia, incomplete bladder emptying Background diabetes for greater than 10 years Current therapy with finasteride and terazosin Prior therapy with alpha blockers - did not tolerate tamsulosin secondary to increased heart rate PFSH Medical History History of GI diverticular bleed BPH (benign prostatic hyperplasia) History of blood transfusion GERD (gastroesophageal reflux disease) Type 2 diabetes mellitus Depression with anxiety PTSD (post-traumatic stress disorder) Migraine COPD, mild Asthma HTN (hypertension) Obstructive sleep apnea Enlarged RV (right ventricle) Mitral regurgitation Surgical History History of excision of lesion (06/25/22) History of arthroscopy of right knee History of left inguinal hernia repair History of repair of right rotator cuff History of repair of left rotator cuff History of mitral valve replacement S/P MVR (mitral valve replacement) Hx of cardiac cath Family History Father Rheumatic fever Mother No problems noted. Sister Hx of aortic valve repair Brother Mitral valve replaced Social History Patient Tobacco Use Status: Former Tobacco user Advance Directives Date on File: 10/29/21 Review of Systems Const Denies chills and Denies fever(s) Card Reports no additional complaints and Denies syncope Resp Denies cough GI Denies abdominal pain and Denies heartburn Reports as per HPI and Denies change in libido Neuro Denies syncope Psych Denies change in libido Endo Denies change in libido Physical Exam Const General: cooperative, healthy appearing, comfortable and no acute distress Orientation/consciousness: patient oriented x3 HEENT Face and sinus: Yes normal facial exam Mouth: moist mucous membranes Neck Neck: Yes normal visual inspection, Yes full ROM and Yes trachea midline Chest Chest palpation & inspection: normal inspection of the chest Resp Effort & Inspection: normal respiratory effort, able to speak in complete sentences and no respiratory distress GI Inspection: Yes normal to inspection Back/Spine/Pelvis Cervical Spine: normal cervical lordosis Thoracic/Lumbar Spine: thoracic and lumbar spine normal to inspection Skin General skin exam: no rashes or lesions noted Neuro General: patient oriented x3, gait normal, tone normal and moves all extremities Extrem General: Yes normal to inspection and Yes capillary refill normal Office Procedures Cystoscopy Consent Discussed risk and benefit or proposed procedure with the patient. Information consent for procedure given to the patient. Discussed technical aspects, risks, benefits and alternatives in full. Addressed all of the patient's questions and concerns regarding the procedure. The patient demonstrated knowledge and understanding. They wish to proceed with this procedure. Preparation The patient was prepped in the usual manner. A crane helper was present and in the room. Genitalia was prepped with betadine solution in a sterile manner. Lidocaine Jelly 2% was placed into the urethra and 16Fr flexible Olympus cystoscope was inserted into the meatus after adequate lubrication. Procedure Meatus circumcised Urethra anterior posterior urethra normal Prostatic Urethra mild hyperplasia Bladder examination with retroflexion of cystoscope Bladder Orifices normal shape and position Bladder Capacity medium Trabeculations - Cellule Formation - Diverticulum Formation - Mucosal Erythema - Bladder Tumor - [id number] Procedure code (CPT) selection complete Office Meds lidocaine HCl 2 % mucosal jelly in applicator Performing Provider: Pierre Rajput MD Performing Location: [facility] Administered by: Rabia Garza RN on 11/13/22 13:19 Dose Route Admin Location Dispensed Lot Number Expiration Date NDC Potato Pancake Frier 10 mL intra-urethral 10 mL Comments: pt received levaquin from PCP and took prior to coming into office, no prep with iodine as pt has allergy- Dr Rider aware Results AMB Urinalysis, Automated UA Leukoctes 0 Brenna/uL Last Edit by Rahul Best [facility] on 11/13/22 13:14 UA Nitrite Negative Last Edit by Rahul Best [facility] on 11/13/22 13:14 UA Urobilinogen 0.2 mg/dL Last Edit by Rahul Best [facility] on 11/13/22 13:1 4 UA Protein 0 mg/dL Last Edit by Rahul Best [facility] on 11/13/22 13:14 UA pH 6.0 Last Edit by Rahul Best [facility] on 11/13/22 13:14 UA Blood 0 Kory/uL Last Edit by Rahul Best [facility] on 11/13/22 13:14 UA Specific [place] 1.020 Last Edit by Rahul Best [facility] on 11/13/22 13: 14 UA Ketone Negative Last Edit by Rahul Best [facility] on 11/13/22 13:14 UA Bilirubin 0 mg/dL Last Edit by Rahul Best [facility] on 11/13/22 13:14 UA Glucose 0 mg/dL Last Edit by Rahul Best [facility] on 11/13/22 13:14 Results Reviewed Results Reviewed: Laboratory Last Values Urine pH (Auto) 6.0 11/13/22 13:03 Specific [place] (Auto) 1.020 11/13/22 13:03 Urine Protein (Auto) 0 mg/dL 11/13/22 13:03 Glucose (UA)(Auto) 0 mg/dL 11/13/22 13:03 Urine Ketones (Auto) Negative 11/13/22 13:03 Urine Blood (Auto) 0 Kory/uL 11/13/22 13:03 Urine Nitrite (Auto) Negative 11/13/22 13:03 Urine Bilirubin (Auto) 0 mg/dL 11/13/22 13:03 Urine Urobilinogen (Auto) 0.2 mg/dL 11/13/22 13:03 Leukocyte Esterase (Auto) 0 Brenna/uL 11/13/22 13:03 Assessment & Plan Assessment & Plan (1) Weak urinary stream: Code(s): R39.12 - Poor urinary stream (2) BPH (benign prostatic hyperplasia): Code(s): N40.0 - Benign prostatic hyperplasia without lower urinary tract symptoms Plan Two month follow-up Trial bethanechol Orders: Orders AMB Urinalysis Automated 11/13/22 Z13.9 - Encounter for screening, unspecified AMB Cystoscopy 11/13/22 N40.0 - Benign prostatic hyperplasia without lower urinary tract symptoms Medications: New bethanechol chloride 50 mg PO BID 180 tabs 1RF 90 days N40.0 - Benign prostatic hyperplasia without lower urinary tract symptoms Patient Instructions: Imaging studies, laboratory and physical exam results were discussed and reviewed in detail. No major barriers to patient understanding were identified. An opportunity to ask questions regarding the treatment plan was provided. All questions were answered. The patient expressed understanding and agreement with the above treatment plan. The patient is aware they should contact our office by phone for worsening of their current condition or the appearance of new urologic symptoms. Compliance is encouraged with any medications and followup testing that is ordered. It is a privilege to participate in the urologic care of your patient. If you have any questions or concerns regarding treatment for the above conditions, or other urologic issues, please do not hesitate to contact me. The office telephone contact is [phone]. This note is constructed using voice recognition software. While every effort has been made to ensure accuracy biodiesel plant manager errors may have been included. Yours sincerely, Dr Pierre Rajput MD, [facility] - Urology Providers of Expert, Compassionate Care for the Genitourinary System Coding Level of Care Code Est Pt Level 4 (56871) Diagnoses Weak urinary stream R39.12 BPH (benign prostatic hyperplasia) N40.0 CPT Codes Cystoscopy - CPT: 94521-[id number] ([id number])
== END 2022-11-13 14:08 | disposition home or self-care (01) ==
PROVIDERS: Visit Provider Urology
DX: R39.12 Poor urinary stream (principal); N40.0 Benign prostatic hyperplasia without lower urinary tract symptoms
CPT/HCPCS: 52000; 99214

== ENCOUNTER → 2022-11-13 12:47 | Outpatient (BNVA) | payer MEDICARE, OTHER, SELFPAY | PROVIDERS: Visit Provider Urology | DX: N40.1 Benign prostatic hyperplasia with lower urinary tract symptoms (principal); R39.12 Poor urinary stream | CPT/HCPCS: 52000; 99212 ==

== ENCOUNTER 2022-12-11 05:54 | Outpatient (REF) | payer MEDICARE, OTHER, SELFPAY ==
--- NOTE | ~2022-12-11 | XR_ITS ---
EXAMINATION: XR STERNUM CLINICAL INFORMATION: Painful sternum. COMPARISON: Chest radiographs dated 06/21/2016. TECHNIQUE: 3 views of the sternum were obtained. FINDINGS: There are no fractures. The xiphoid process is somewhat angled anteriorly, stable from prior examinations including chest radiographs dated 06/21/2016. No bone, joint or soft tissue abnormality is demonstrated. The sternoclavicular joints appear intact. There are intact median sternotomy wires. There has been a prior cardiac valvuloplasty. XR/XR sternum min 2V IMPRESSION: Unremarkable examination. There has been a prior median sternotomy, with intact sternotomy wires.
[2022-12-11 06:14] LABS: MANUAL DIFF FLAG NO
[2022-12-11 07:13] LABS: Basophils Absolute Auto 0.1 X10*3/uL (0.0-0.2); Basophils Percent Auto 0.7 % (0-2); Eosinophils Absolute Auto 0.3 X10*3/uL (0.0-0.4); Eosinophils Percent Auto 4.9 % (0-4); Hematocrit 42.4 % (42.0-52.0); Hemoglobin 14.4 g/dl (14.0-18.0); Imm Gran Abs Auto 0.02 X10*3/uL (0.00-0.03); Imm Gran Pct Auto 0.3 % (0.0-0.4); Lymphocytes Absolute Auto 1.3 X10*3/uL (1.2-4.9); Lymphocytes Percent Auto 18.4 % (20-40); Mean Corpuscular Hemoglobin 30.3 pg (27.0-33.0); Mean Corpuscular Volume 89.1 fL (80.0-98.0); Mean Platelet Volume 10.7 fL (9.4-12.4); Monocytes Absolute Auto 0.5 X10*3/uL (0.1-1.2); Monocytes Percent Auto 7.2 % (2-11); Neutrophils Absolute Auto 4.7 x10*3/uL (2.0-8.3); Neutrophils Percent Auto 68.5 % (45-73); Platelet Count 131 X10*3/uL (160-400); Red Blood Count 4.76 X10*6/uL (4.60-5.80); Red Cell Distribution Width 13.2 % (11.0-16.0); White Blood Count 6.9 X10*3/uL (4.8-10.8)
[2022-12-11 07:51] LABS: Alanine Aminotransferase 21 U/L (0-40); Albumin Level 3.8 g/dL (3.5-5.0); Alkaline Phosphatase 47 U/L (39-117); Anion Gap 11 (12-20); Aspartate Amino Transferase 15 U/L (5-37); Bilirubin Total 0.5 mg/dL (0.0-1.0); Blood Urea Nitrogen 16 mg/dL (9-16); C Reactive Protein 0.15 mg/dL (< or = 0.50); Calcium 9.2 mg/dL (8.4-10.2); Carbon Dioxide 24 mmol/L (22-29); Chloride 109 mmol/L (96-108); Estimated Glomerular Filt Rate > 60; Glucose Random 236 mg/dL (60-115); Potassium 4.1 mmol/L (3.3-5.1); Sodium 140 mmol/L (135-145); Total Protein 6.7 g/dL (6.5-8.0)
[2022-12-11 07:52] LABS: Estimated Average Glucose 197 mg/dL; Hemoglobin A1c % 8.5 %
== END 2022-12-11 05:55 | disposition home or self-care (01) ==
LOC: HO.XRAY 05:54
PROVIDERS: PCP Internal Medicine; Visit Provider Internal Medicine
DX: R07.2 Precordial pain (principal); I10 Essential (primary) hypertension; N40.0 Benign prostatic hyperplasia without lower urinary tract symptoms; D64.9 Anemia, unspecified; E11.9 Type 2 diabetes mellitus without complications
CPT/HCPCS: 36415; 71120; 80053; 82550; 83036; 85025; 86140

== ENCOUNTER 2022-12-25 07:38 | Outpatient (REF) | payer MEDICARE, OTHER, SELFPAY ==
--- NOTE | ~2022-12-25 | XR_ITS ---
EXAMINATION: XR SHOULDER, LEFT CLINICAL INFORMATION: Pain in left shoulder COMPARISON: Left shoulder 08/06/2016 TECHNIQUE: AP neutral and transscapular Y view of the left shoulder. FINDINGS: The bones intact. No fracture or dislocation. Tiny marginal osteophyte extends off the humeral head. Mild degenerative change acromioclavicular joint. No abnormal soft tissue calcifications. XR/XR shoulder LT min 2V IMPRESSION: Mild degenerative change. No acute bony abnormality.
== END 2022-12-25 07:39 | disposition home or self-care (01) ==
LOC: HO.HOSX 07:38
PROVIDERS: Visit Provider Orthopaedic Surgery
DX: M25.512 Pain in left shoulder (principal)
CPT/HCPCS: 73030; 99202

== ENCOUNTER 2022-12-25 13:40 | Outpatient (AMB) | payer MEDICARE, OTHER, SELFPAY ==
--- NOTE | 2022-12-25 14:03 | MHC.OFFVIS ---
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 The patient states that many years ago he underwent left shoulder rotator cuff repair surgery performed by Dr. Garcia after falling while walking his dog. He states that he did fairly well up until approximately 6 months ago when he fell walking down his stairs. Since that time he has not been able to lift his left hand to shoulder height. He has done physical therapy for 12 weeks over the last 6 months which aggravated his symptoms. He has also had multiple injections in the past which gave him minimal relief. He has tried Tylenol and anti-inflammatory medicines which gave him only mild relief. He denies any other injuries. Allergies DUSTIN Inhibitors [Dustin Inhibitors] Allergy (Severe, Verified 12/25/22 14:07) ANAPHYLAXIS thimerosal [Thimerosal] Allergy (Severe, Verified 12/25/22 14:07) ANGIOEDEMA tamsulosin Allergy (Mild, Verified 12/25/22 14:07) tacycardia aspartame [ASPARTAME] Allergy (Unknown, Verified 12/25/22 14:07) UNKNOWN aspirin Allergy (Unknown, Verified 12/25/22 14:07) Anaphylaxis Cephalosporins [CEPHALOSPORINS] Allergy (Unknown, Verified 12/25/22 14:07) RASH codeine [Codeine] Allergy (Unknown, Verified 12/25/22 14:07) wakes up combative fluoxetine [From PROZAC] Allergy (Unknown, Verified 12/25/22 14:07) REQUIRED HOSPITALIZATION hexachlorophene [From PHISOHEX] Allergy (Unknown, Verified 12/25/22 14:07) UNKNOWN melon Allergy (Unknown, Verified 12/25/22 14:07) UNKNOWN morphine Allergy (Unknown, Verified 12/25/22 14:07) wakes up combative NSAIDS (Non-Steroidal Anti-Inflamma [NSAIDS (NON-STEROIDAL ANTI-INFLAMMA] Allergy (Unknown, Verified 12/25/22 14:07) Anaphylaxis penicillin V Allergy (Unknown, Verified 12/25/22 14:07) Rash Penicillins Allergy (Unknown, Verified 12/25/22 14:07) Rash perfume Allergy (Unknown, Verified 12/25/22 14:07) UNKNOWN pineapple [PINEAPPLE] Allergy (Unknown, Verified 12/25/22 14:07) ANGIOEDEMA povidone-iodine [From BETADINE] Allergy (Unknown, Verified 12/25/22 14:07) UNKNOWN soap [Betadine] Allergy (Unknown, Verified 12/25/22 14:07) Unknown monosodium glutamate Adverse Reaction (Unknown, Verified 12/25/22 14:07) HEADACHES aspartame Allergy (Unknown, Uncoded 11/13/22 13:01) Unknown dexon Allergy (Unknown, Uncoded 11/13/22 13:01) Unknown GLUE IN SHOES Allergy (Unknown, Uncoded 11/13/22 13:01) UNKNOWN melons Allergy (Unknown, Uncoded 11/13/22 13:01) Unknown PLASTIC TAPE Allergy (Unknown, Uncoded 11/13/22 13:01) skin problems POLYGLACTIC ACID(DEXON & VICRYL) Allergy (Unknown, Uncoded 11/13/22 13:01) UNKNOWN vicryl Allergy (Unknown, Uncoded 11/13/22 13:01) Unknown From Demerol Adverse Reaction (Unknown, Uncoded 11/13/22 13:01) HALLUNICATION Medication List - Last Reconciled 12/25/22 by Percy Rausch MD alogliptin 12.5 mg PO QAM amlodipine 2.5 mg PO DAILY aspirin (Adult Aspirin Regimen) 81 mg PO DAILY atorvastatin 20 mg PO QPM tkrqrbseae-vvxzstiwdioum-zbat 50-325-40 mg tabs PO cholecalciferol (vitamin D3) 25 mcg PO DAILY clonazepam 0.5 mg PO DAILY PRN epinephrine (EpiPen) 0.3 mg IM Q10M PRN finasteride 5 mg PO DAILY fluoride (sodium) 1.1% PO fluticasone propionate 50 mcg/actuation 1 spray intranasal DAILY ipratropium-albuterol 20-100 mcg/actuation (Combivent Respimat) 1 puff inhalation Q6H ketoconazole 2% 1 appl topical DAILY metformin 1,000 mg PO DAILY metoprolol succinate ER 25 mg PO DAILY mometasone (Asmanex Twisthaler) 2 inhalations inhalation BID montelukast 10 mg PO DAILY omeprazole 20 mg PO BID saw palmetto 320 mg PO DAILY tadalafil (Cialis) 5 mg PO DAILY 30 days terazosin 10 mg PO DAILY [facility] Medical History Asthma BPH (benign prostatic hyperplasia) COPD, mild Depression with anxiety Enlarged RV (right ventricle) GERD (gastroesophageal reflux disease) History of blood transfusion History of GI diverticular bleed HTN (hypertension) Migraine Mitral regurgitation Obstructive sleep apnea PTSD (post-traumatic stress disorder) Type 2 diabetes mellitus Surgical History History of arthroscopy of right knee History of excision of lesion (06/25/22) History of left inguinal hernia repair History of mitral valve replacement History of repair of left rotator cuff History of repair of right rotator cuff Hx of cardiac cath S/P MVR (mitral valve replacement) Family History Father Rheumatic fever Mother No problems noted. Sister Hx of aortic valve repair Brother Mitral valve replaced Social History Patient Tobacco Use Status: Former Tobacco user Advance Directives Date on File: 10/29/21 Physical Exam Const Other: Well-nourished well-developed very friendly male awake alert and oriented x3 in no acute distress Extrem Other: Bilateral upper extremity examination shows good capillary refill, no skin lesions noted, normal sensation light touch Left shoulder examination shows almost full passive range of motion but limited active range of motion with forward flexion to 30 degrees, external rotation to 20 degrees, internal rotation to his back pocket, tenderness over his acromioclavicular joint, positive impingement signs Results Reviewed Results Reviewed: X-rays of the patient's left shoulder show severe acromioclavicular joint narrowing, a type 2 acromion, no acute bony abnormalities Assessment & Plan Assessment & Plan (1) Left shoulder pain: Code(s): M25.512 - Pain in left shoulder Plan Mr. Jama presents with progressively worsening left shoulder pain and weakness most likely due to a recurrence full-thickness rotator cuff tear. Thus, I will send the patient for an MRI of his left shoulder for further evaluation. I will see him back once the imaging study is completed. He will continue with his gentle stretching exercises in the meantime to prevent stiffness. Feel free to call me at any time should questions regarding his orthopedic management arise. Thank you very much for asking me to see this very friendly gentleman. I spent 22 minutes in reviewing the patient's records and imaging studies, seeing the patient and documenting in the medical record. Orders: Orders XR shoulder LT min 2V Today M25.512 - Pain in left shoulder MR shoulder LT wo con Today S46.012A - Strain of muscle(s) and tendon(s) of the rotator cuff of left shoulder, initial encounter Coding Level of Care Code New Pt Level 2 (56127) Diagnoses Left shoulder pain M25.512
== END 2022-12-25 14:35 | disposition home or self-care (01) ==
PROVIDERS: PCP Internal Medicine; Visit Provider Orthopaedic Surgery
DX: M25.512 Pain in left shoulder (principal)
CPT/HCPCS: 99202

== ENCOUNTER 2023-01-10 10:12 | Outpatient (REF) | payer MEDICARE, OTHER, SELFPAY ==
--- NOTE | ~2023-01-10 | MR_ITS ---
EXAMINATION: MRI SHOULDER WITHOUT CONTRAST, LEFT CLINICAL INFORMATION: Strain of muscle and tendon of rotator cuff, left. Patient reports left shoulder injury 2 months ago, pain, decreased range of motion. Patient reports prior left shoulder surgery 2-3 years ago. COMPARISON: MRI left shoulder 07/24/2016. X-ray 12/25/2022. TECHNIQUE: MRI of the shoulder without contrast is performed in a 1.5 Claribel high-field scanner. FINDINGS: CORACOACROMIAL ARCH: Moderate acromioclavicular arthritis. No significant fluid in the subacromial subdeltoid space. Undersurface of the acromion is concave. ROTATOR CUFF: There are postsurgical changes in the greater tuberosity/lateral humeral head, with susceptibility artifact. There is diffuse thinning heterogeneous signal of the supraspinatus tendon. These findings may reflect postsurgical changes, partial tearing, or a combination of these. No measurable tendon defect or retraction is seen. . Diffuse thinning of the infraspinatus tendon without focal measurable tear. Teres minor is intact. High-grade tearing of the subscapularis tendon, measuring approximately 2.4 cm medial-lateral. ROTATOR CUFF MUSCLES: Mild supraspinatus and infraspinatus muscle atrophy. BICEPS TENDON: The proximal biceps tendon is not visualized, could reflect postsurgical changes. Correlate with surgical history. LABRUM/CAPSULE: Posterior labrum is small in caliber with degenerative changes. Superior labrum inner margin blunting. No displaced labral tear is seen. GLENOHUMERAL JOINT/MARROW: Superior subluxation of the humeral head with respect to the glenoid. Mild glenohumeral joint degeneration. No acute fracture. Small glenohumeral joint effusion. Scattered low-signal foci and effusion could reflect synovitis or debris. MR/MR shoulder LT wo con IMPRESSION: 1. Supraspinatus findings with thinning and heterogeneous signal, could reflect postsurgical result, partial tearing, or a combination of these. No measurable full-thickness defect is identified. 2. Infraspinatus tendon diffuse thinning without full-thickness defect. 3. Posterior labrum degeneration/small caliber. Superior labrum inner margin blunting. 4. Mild glenohumeral joint osteoarthritis. Small joint fluid with possible mild synovitis/debris.
== END 2023-01-10 10:13 | disposition home or self-care (01) ==
LOC: HO.MRI 10:12
PROVIDERS: PCP Internal Medicine; Visit Provider Orthopaedic Surgery
DX: S46.012A Strain of muscle(s) and tendon(s) of the rotator cuff of left shoulder, initial encounter (principal)
CPT/HCPCS: 73221

== ENCOUNTER 2023-01-16 09:48 | Outpatient (AMB) | payer MEDICARE, OTHER, SELFPAY ==
--- NOTE | 2023-01-16 09:53 | A.OFFVIS_ITS ---
Intake Intake Visit Reasons: 2m follow up Intake Note: Patient is present for Follow Up PVR Urology Med: Finasteride, Tadalafil, Terazosin, Bethanechol Antibiotic Allergy: Penicillins Blood Thinner: Aspirin [facility]acy: [facility] PVR: 0ml Allergies DUSTIN Inhibitors [Dustin Inhibitors] Allergy (Severe, Verified 01/16/23 09:57) ANAPHYLAXIS thimerosal [Thimerosal] Allergy (Severe, Verified 01/16/23 09:57) ANGIOEDEMA tamsulosin Allergy (Mild, Verified 01/16/23 09:57) tacycardia aspartame [ASPARTAME] Allergy (Unknown, Verified 01/16/23 09:57) UNKNOWN aspirin Allergy (Unknown, Verified 01/16/23 09:57) Anaphylaxis Cephalosporins [CEPHALOSPORINS] Allergy (Unknown, Verified 01/16/23 09:57) RASH codeine [Codeine] Allergy (Unknown, Verified 01/16/23 09:57) wakes up combative fluoxetine [From PROZAC] Allergy (Unknown, Verified 01/16/23 09:57) REQUIRED HOSPITALIZATION hexachlorophene [From PHISOHEX] Allergy (Unknown, Verified 01/16/23 09:57) UNKNOWN melon Allergy (Unknown, Verified 01/16/23 09:57) UNKNOWN morphine Allergy (Unknown, Verified 01/16/23 09:57) wakes up combative NSAIDS (Non-Steroidal Anti-Inflamma [NSAIDS (NON-STEROIDAL ANTI-INFLAMMA] Allergy (Unknown, Verified 01/16/23 09:57) Anaphylaxis penicillin V Allergy (Unknown, Verified 01/16/23 09:57) Rash Penicillins Allergy (Unknown, Verified 01/16/23 09:57) Rash perfume Allergy (Unknown, Verified 01/16/23 09:57) UNKNOWN pineapple [PINEAPPLE] Allergy (Unknown, Verified 01/16/23 09:57) ANGIOEDEMA povidone-iodine [From BETADINE] Allergy (Unknown, Verified 01/16/23 09:57) UNKNOWN soap [Betadine] Allergy (Unknown, Verified 01/16/23 09:57) Unknown monosodium glutamate Adverse Reaction (Unknown, Verified 01/16/23 09:57) HEADACHES aspartame Allergy (Unknown, Uncoded 01/16/23 09:57) Unknown dexon Allergy (Unknown, Uncoded 01/16/23 09:57) Unknown GLUE IN SHOES Allergy (Unknown, Uncoded 01/16/23 09:57) UNKNOWN melons Allergy (Unknown, Uncoded 01/16/23 09:57) Unknown PLASTIC TAPE Allergy (Unknown, Uncoded 01/16/23 09:57) skin problems POLYGLACTIC ACID(DEXON & VICRYL) Allergy (Unknown, Uncoded 01/16/23 09:57) UNKNOWN vicryl Allergy (Unknown, Uncoded 01/16/23 09:57) Unknown From Demerol Adverse Reaction (Unknown, Uncoded 01/16/23 09:57) HALLUNICATION Medication List - Last Reconciled 01/16/23 by Pierre Rajput MD alogliptin 12.5 mg PO QAM amlodipine 2.5 mg PO DAILY aspirin (Adult Aspirin Regimen) 81 mg PO DAILY atorvastatin 20 mg PO QPM bethanechol chloride 50 mg PO BID lqtffikhqe-qhhbueahriecu-lybr 50-325-40 mg tabs PO cholecalciferol (vitamin D3) 25 mcg PO DAILY clonazepam 0.5 mg PO DAILY PRN epinephrine (EpiPen) 0.3 mg IM Q10M PRN finasteride 5 mg PO DAILY fluoride (sodium) 1.1% PO fluticasone propionate 50 mcg/actuation 1 spray intranasal DAILY ipratropium-albuterol 20-100 mcg/actuation (Combivent Respimat) 1 puff inhalation Q6H ketoconazole 2% 1 appl topical DAILY metformin 1,000 mg PO DAILY metformin ER 500 mg PO BID metoprolol succinate ER 25 mg PO DAILY mometasone (Asmanex Twisthaler) 2 inhalations inhalation BID montelukast 10 mg PO DAILY omeprazole 20 mg PO BID saw palmetto 320 mg PO DAILY tadalafil (Cialis) 5 mg PO DAILY 90 days terazosin 10 mg PO DAILY HPI HPI Comments History of Present Illness Details Jared is a pleasant male. He is a patient of Dr. Atkinson. 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 Did not tolerate bethanechol Great response from low-dose daily tadalafil Prescriptions refilled Lower urinary tract symptoms Progressive weakness of stream, nocturia, incomplete bladder emptying Background diabetes for greater than 10 years Current therapy with finasteride and terazosin Prior therapy with alpha blockers - did not tolerate tamsulosin secondary to increased heart rate 11/08 Cystoscopy Bladder neck open Trabeculation grade 3Small diverticulum [facility] Medical History (Updated 01/16/23 @ 10:41 by Pierre Rajput MD) Asthma BPH (benign prostatic hyperplasia) COPD, mild Depression with anxiety Enlarged RV (right ventricle) GERD (gastroesophageal reflux disease) History of blood transfusion History of GI diverticular bleed HTN (hypertension) Migraine Mitral regurgitation Obstructive sleep apnea PTSD (post-traumatic stress disorder) Type 2 diabetes mellitus Surgical History History of arthroscopy of right knee History of excision of lesion (06/25/22) History of left inguinal hernia repair History of mitral valve replacement History of repair of left rotator cuff History of repair of right rotator cuff Hx of cardiac cath S/P MVR (mitral valve replacement) Family History Father Rheumatic fever Mother No problems noted. Sister Hx of aortic valve repair Brother Mitral valve replaced Social History Patient Tobacco Use Status: Former Tobacco user Advance Directives Date on File: 10/29/21 Review of Systems Const Denies chills and Denies fever(s) Card Reports no additional complaints and Denies syncope Resp Denies cough GI Denies abdominal pain and Denies heartburn Reports as per HPI and Denies change in libido Neuro Denies syncope Psych Denies change in libido Endo Denies change in libido Physical Exam Const General: cooperative, healthy appearing, comfortable and no acute distress Orientation/consciousness: patient oriented x3 HEENT Face and sinus: Yes normal facial exam Mouth: moist mucous membranes Neck Neck: Yes normal visual inspection, Yes full ROM and Yes trachea midline Chest Chest palpation & inspection: normal inspection of the chest Resp Effort & Inspection: normal respiratory effort, able to speak in complete sentences and no respiratory distress GI Inspection: Yes normal to inspection Back/Spine/Pelvis Cervical Spine: normal cervical lordosis Thoracic/Lumbar Spine: thoracic and lumbar spine normal to inspection Skin General skin exam: no rashes or lesions noted Neuro General: patient oriented x3, gait normal, tone normal and moves all extremities Extrem General: Yes normal to inspection and Yes capillary refill normal Office Procedures Post Void Residual Post Residual Void Post Void Residual (PVR): 0 [id number] Void Residual by ultrasound Results AMB Urinalysis, Automated UA Leukoctes 0 Brenna/uL Last Edit by Camryn Lanza [facility] on 01/16/23 10:07 UA Nitrite Negative Last Edit by Camryn Lanza, A on 01/16/23 10:07 UA Urobilinogen 0.2 mg/dL Last Edit by Camryn Lanza, A on 01/16/23 10:0 7 UA Protein 15 mg/dL Last Edit by Camryn Lanza, A on 01/16/23 10:07 UA pH 5.0 Last Edit by Camryn Lanza, A on 01/16/23 10:07 UA Blood 0 Kory/uL Last Edit by Camryn Lnaza, A on 01/16/23 10:07 UA Specific [place] 1.030 Last Edit by Camryn Lanza A on 01/16/23 10: 07 UA Ketone Negative Last Edit by Camryn Lanza, A on 01/16/23 10:07 UA Bilirubin 1 mg/dL Last Edit by Camryn Lanza, A on 01/16/23 10:07 UA Glucose 100 mg/dL Last Edit by Camryn Lanza, [facility] on 01/16/23 10:07 Results Reviewed Results Reviewed: Laboratory Last Values Urine pH (Auto) 5.0 01/16/23 09:57 Specific [place] (Auto) 1.030 01/16/23 09:57 Urine Protein (Auto) 15 mg/dL 01/16/23 09:57 Glucose (UA)(Auto) 100 mg/dL 01/16/23 09:57 Urine Ketones (Auto) Negative 01/16/23 09:57 Urine Blood (Auto) 0 Kory/uL 01/16/23 09:57 Urine Nitrite (Auto) Negative 01/16/23 09:57 Urine Bilirubin (Auto) 1 mg/dL 01/16/23 09:57 Urine Urobilinogen (Auto) 0.2 mg/dL 01/16/23 09:57 Leukocyte Esterase (Auto) 0 Brenna/uL 01/16/23 09:57 Assessment & Plan Assessment & Plan (1) BPH (benign prostatic hyperplasia): Code(s): N40.0 - Benign prostatic hyperplasia without lower urinary tract symptoms (2) Type 2 diabetes mellitus: Code(s): E11.9 - Type 2 diabetes mellitus without complications (3) Erectile dysfunction associated with type 2 diabetes mellitus: Code(s): E11.69 - Type 2 diabetes mellitus with other specified complication; N52.1 - Erectile dysfunction due to diseases classified elsewhere Plan Six month follow-up Orders: Orders AMB Urinalysis Automated Today Z13.9 - Encounter for screening, unspecified AMB Post Void Residual by ultrasound Today N40.0 - Benign prostatic hyperplasia without lower urinary tract symptoms Medications: Changed From tadalafil (Cialis) 5 mg PO DAILY 30 days 30 tabs 1RF N40.0 - Benign prostatic hyperplasia without lower urinary tract symptoms To tadalafil (Cialis) 5 mg PO DAILY 90 days 90 tabs 3RF N40.0 - Benign prostatic hyperplasia without lower urinary tract symptoms Patient Instructions: Imaging studies, laboratory and physical exam results were discussed and reviewed in detail. No major barriers to patient understanding were identified. An opportunity to ask questions regarding the treatment plan was provided. All questions were answered. The patient expressed understanding and agreement with the above treatment plan. The patient is aware they should contact our office by phone for worsening of their current condition or the appearance of new urologic symptoms. Compliance is encouraged with any medications and followup testing that is ordered. It is a privilege to participate in the urologic care of your patient. If you have any questions or concerns regarding treatment for the above conditions, or other urologic issues, please do not hesitate to contact me. The office telephone contact is [phone]. This note is constructed using voice recognition software. While every effort has been made to ensure accuracy corner former errors may have been included. Yours sincerely, Dr Pierre Rajput MD, [facility] - Urology Providers of Expert, Compassionate Care for the Genitourinary System Coding Level of Care Code Est Pt Level 3 (99832) Diagnoses BPH (benign prostatic hyperplasia) N40.0 Type 2 diabetes mellitus E11.9 Erectile dysfunction associated with type 2 diabetes mellitus E11.69; N52.1 CPT Codes Post Residual Void - PVR CPT Code: 95533-Deuz Void Residual by ultrasound ([id number])
== END 2023-01-16 10:40 | disposition home or self-care (01) ==
PROVIDERS: PCP Internal Medicine; Visit Provider Urology
DX: N40.0 Benign prostatic hyperplasia without lower urinary tract symptoms (principal); E11.9 Type 2 diabetes mellitus without complications; E11.69 Type 2 diabetes mellitus with other specified complication; N52.1 Erectile dysfunction due to diseases classified elsewhere; Z13.9 Encounter for screening, unspecified
CPT/HCPCS: 99213

== ENCOUNTER → 2023-01-16 09:48 | Outpatient (BNVA) | payer MEDICARE, OTHER, SELFPAY | PROVIDERS: PCP Internal Medicine; Visit Provider Urology | DX: N40.0 Benign prostatic hyperplasia without lower urinary tract symptoms (principal); E11.69 Type 2 diabetes mellitus with other specified complication; N52.1 Erectile dysfunction due to diseases classified elsewhere | CPT/HCPCS: 51798; 81003; 99212 ==

== ENCOUNTER → 2023-01-17 08:01 | Outpatient (REF) | payer MEDICARE, OTHER, SELFPAY ==
--- NOTE | 2023-01-17 08:04 | HM_ITS ---
Conclusion: 1. Patient was monitored for total period of 3 days 2. Baseline was normal sinus rhythm with average heart of 70 beats per minute 3. No significant pauses noted 4. Frequent PACs noted with total burden of about 2% 5. One episode of fast heart rate consistent with SVT is noted at about 135 beats per minute 6. Patient marked symptoms 7 times with symptoms of shortness of breath and fluttering, 1 of them correlated with SVT MTDD
--- NOTE | 2023-01-17 08:04 | CA_ITS ---
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 There is mildly increased left ventricular wall thickness. The left ventricular systolic function is low normal. The visually estimated ejection fraction is between 50-55%. - Mildly increased right ventricular cavity size. There is normal right ventricular systolic function. - There is mild dilatation of the sinuses of Valsalva measuring 4.00 cm and mild dilatation of the ascending aorta measuring 3.70 cm. - A bioprosthetic mitral valve is present. There is no mitral valve regurgitation. Mean gradient across the MV 6 mm Hg. Findings Left Ventricle Normal left ventricular cavity size. There is mildly increased left ventricular wall thickness. The left ventricular systolic function is low normal. The visually estimated ejection fraction is between 50-55%. There is no evidence of regional wall motion abnormalities. Diastolic function is indeterminate on the basis of available data. Right Ventricle Mildly increased right ventricular cavity size. There is normal right ventricular systolic function. Atria The left atrium is severely dilated. The right atrium is mildly dilated. Aortic Valve There is a normal trileaflet aortic valve. There is no aortic valve stenosis. There is no aortic valve regurgitation. Mitral Valve A bioprosthetic mitral valve is present. There is no mitral valve regurgitation. Mean gradient across the MV 6 mm Hg. Pulmonic Valve Normal pulmonic valve structure and function. There is no pulmonic valve regurgitation. Tricuspid Valve Normal tricuspid valve structure and function. Tricuspid regurgitation envelope is inadequate for calculation of right ventricular systolic pressure. Normal right atrial pressure. Great Vessels There is mild dilatation of the sinuses of Valsalva measuring 4.00 cm and mild dilatation of the ascending aorta measuring 3.70 cm. Venous The inferior vena cava is normal in size and collapses greater than 50% with inspiration. Pericardium/Pleural There is no evidence of pericardial effusion. Prior Study Comparison Changes noted compared to prior study dated: 01/18/2022. Mild dilation of aorta. RV mildly dilated. Measurements 2D Linear Measurements IVSd: 1.35 0.6-0.9/0.6-1.0 cm LVIDd: 5.26 3.9-5.3/4.2-5.9 cm LVIDd Index: 2.37 2.4-3.2/2.2-3.1 cm/m2 LVIDs: 3.32 2.0-3.6 cm LVPWd: 1.16 0.7-1.1 cm LA Diam: 4.30 2.7-3.8/3.0-4.0 cm LAIDs Index: 1.94 1.5-2.3 cm/m2 LV Mass: 336.51 67-162/88-224 g LV Mass Index: 151.58 43-95/49-115 g/m2 LVOT Diam: 2.50 3.0+(-)1.3 cm 2D Volumes LA Vol: 49.50 2D Systolic Function EF 4C: 53.50 >55% EF 2C: 50.50 >55% EF BiP: 51.30 >55% Mitral Valve MV VTI: 0.53 MV Pk Jose: 1.83 MV Mn Jose: 1.22 MV Pk Grad: 13.00 MV Mn Grad: 7.00 MV Pk E: 1.14 MV PK A: 1.51 MV Decel Time: 266.00 E/A: 0.80 E'Lateral: 5.22 E'Medial: 5.77 E/E' Med: 19.80 E/E' Lat: 21.80 PHT: 78.00 MVA PHT: 2.82 MVA Continuity: 1.67 Decel Benzie: 4.30 Aortic Valve AoV Pk Jose: 1.47 AoV Mn Jose: 1.02 AoV VTI: 0.33 AoV Pk Grad: 9.00 Aov Mn Grad: 5.00 ANDRES Cont.VTI: 2.72 LVOT LVOT Pk Jose: 0.91 LVOT Mn Jose: 0.58 LVOT VTI: 0.18 LVOT Pk Grad: 3.00 LVOT Mn Grad: 2.00 LVOT Diam: 2.50 LVOT Area: 4.91 Diastolic Function MV Pk E: 1.14 MV Pk A: 1.51 E/A: 0.80 E'Medial: 5.77 E/E' Med: 19.80 E' Laterial: 5.22 E/E' Lat: 21.80 Right Ventricle TAPSE (mm): 20.40 TVS' Jose: 10.00 Tricuspid Valve RA Press: 3.00 Great Vessels Aorta Sinus of Valsalva: 4.00 2.0-3.5 cm Ao Asc: 3.70 2.1-3.4 cm Updated in Other Vendor System with Status of Final Chan Taylor MD electronically signed on 02/03/2023 1:45:23 PM with status of Final
== END ==
LOC: HO.CARD 08:01
PROVIDERS: PCP Internal Medicine; Visit Provider Internal Medicine Cardiovascular Disease
DX: Z95.2 Presence of prosthetic heart valve (principal); I49.1 Atrial premature depolarization
CPT/HCPCS: 93242; 93306

== ENCOUNTER → 2023-01-17 08:04 | Outpatient (BNV) | payer MEDICARE, OTHER, SELFPAY | PROVIDERS: PCP Internal Medicine; Visit Provider Internal Medicine Cardiovascular Disease | DX: I49.3 Ventricular premature depolarization (principal) | CPT/HCPCS: 93244; 93306 ==

== ENCOUNTER 2023-01-23 08:18 | Outpatient (AMB) | payer MEDICARE, OTHER, SELFPAY ==
--- NOTE | 2023-01-23 08:21 | MHC.OFFVIS ---
Intake Intake Visit Reasons: OV - Left Shoulder MRI Review Intake Note: Edwar is a 67 year old right hand dominant male who presents today as a new patient for a evaluation for his left shoulder pain and weakness. The patient states that many years ago he underwent left shoulder rotator cuff repair surgery performed by Dr. Garcia after falling while walking his dog. He states that he did fairly well up until approximately 6 months ago when he fell walking down his stairs. Since that time he has not been able to lift his left hand to shoulder height. He has done physical therapy for 12 weeks over the last 6 months which aggravated his symptoms. He has also had multiple injections in the past which gave him minimal relief. He has tried Tylenol and anti-inflammatory medicines which gave him only mild relief. He denies any other injuries. Allergies DUSTIN Inhibitors [Dustin Inhibitors] Allergy (Severe, Verified 01/16/23 09:57) ANAPHYLAXIS thimerosal [Thimerosal] Allergy (Severe, Verified 01/16/23 09:57) ANGIOEDEMA tamsulosin Allergy (Mild, Verified 01/16/23 09:57) tacycardia aspartame [ASPARTAME] Allergy (Unknown, Verified 01/16/23 09:57) UNKNOWN aspirin Allergy (Unknown, Verified 01/16/23 09:57) Anaphylaxis Cephalosporins [CEPHALOSPORINS] Allergy (Unknown, Verified 01/16/23 09:57) RASH codeine [Codeine] Allergy (Unknown, Verified 01/16/23 09:57) wakes up combative fluoxetine [From PROZAC] Allergy (Unknown, Verified 01/16/23 09:57) REQUIRED HOSPITALIZATION hexachlorophene [From PHISOHEX] Allergy (Unknown, Verified 01/16/23 09:57) UNKNOWN melon Allergy (Unknown, Verified 01/16/23 09:57) UNKNOWN morphine Allergy (Unknown, Verified 01/16/23 09:57) wakes up combative NSAIDS (Non-Steroidal Anti-Inflamma [NSAIDS (NON-STEROIDAL ANTI-INFLAMMA] Allergy (Unknown, Verified 01/16/23 09:57) Anaphylaxis penicillin V Allergy (Unknown, Verified 01/16/23 09:57) Rash Penicillins Allergy (Unknown, Verified 01/16/23 09:57) Rash perfume Allergy (Unknown, Verified 01/16/23 09:57) UNKNOWN pineapple [PINEAPPLE] Allergy (Unknown, Verified 01/16/23 09:57) ANGIOEDEMA povidone-iodine [From BETADINE] Allergy (Unknown, Verified 01/16/23 09:57) UNKNOWN soap [Betadine] Allergy (Unknown, Verified 01/16/23 09:57) Unknown monosodium glutamate Adverse Reaction (Unknown, Verified 01/16/23 09:57) HEADACHES aspartame Allergy (Unknown, Uncoded 01/16/23 09:57) Unknown dexon Allergy (Unknown, Uncoded 01/16/23 09:57) Unknown GLUE IN SHOES Allergy (Unknown, Uncoded 01/16/23 09:57) UNKNOWN melons Allergy (Unknown, Uncoded 01/16/23 09:57) Unknown PLASTIC TAPE Allergy (Unknown, Uncoded 01/16/23 09:57) skin problems POLYGLACTIC ACID(DEXON & VICRYL) Allergy (Unknown, Uncoded 01/16/23 09:57) UNKNOWN vicryl Allergy (Unknown, Uncoded 01/16/23 09:57) Unknown From Demerol Adverse Reaction (Unknown, Uncoded 01/16/23 09:57) HALLUNICATION Medication List - Last Reconciled 01/23/23 by Percy Rausch MD alogliptin 12.5 mg PO QAM amlodipine 2.5 mg PO DAILY aspirin (Adult Aspirin Regimen) 81 mg PO DAILY atorvastatin 20 mg PO QPM bethanechol chloride 50 mg PO BID ejvszdieuk-zwbbqcnqgdpnd-xjiw 50-325-40 mg tabs PO cholecalciferol (vitamin D3) 25 mcg PO DAILY clonazepam 0.5 mg PO DAILY PRN epinephrine (EpiPen) 0.3 mg IM Q10M PRN finasteride 5 mg PO DAILY fluoride (sodium) 1.1% PO fluticasone propionate 50 mcg/actuation 1 spray intranasal DAILY ipratropium-albuterol 20-100 mcg/actuation (Combivent Respimat) 1 puff inhalation Q6H ketoconazole 2% 1 appl topical DAILY metformin 1,000 mg PO DAILY metformin ER 500 mg PO BID metoprolol succinate ER 25 mg PO DAILY mometasone (Asmanex Twisthaler) 2 inhalations inhalation BID montelukast 10 mg PO DAILY omeprazole 20 mg PO BID saw palmetto 320 mg PO DAILY tadalafil (Cialis) 5 mg PO DAILY 90 days terazosin 10 mg PO DAILY FORMERLY [facility], [facility]–1983 Medical History (Updated 01/23/23 @ 08:44 by Percy Rausch MD) History of GI diverticular bleed BPH (benign prostatic hyperplasia) History of blood transfusion GERD (gastroesophageal reflux disease) Type 2 diabetes mellitus Depression with anxiety PTSD (post-traumatic stress disorder) Migraine COPD, mild Asthma HTN (hypertension) Obstructive sleep apnea Enlarged RV (right ventricle) Mitral regurgitation Surgical History History of excision of lesion (06/25/22) History of arthroscopy of right knee History of left inguinal hernia repair History of repair of right rotator cuff History of repair of left rotator cuff History of mitral valve replacement S/P MVR (mitral valve replacement) Hx of cardiac cath Family History Father Rheumatic fever Mother No problems noted. Sister Hx of aortic valve repair Brother Mitral valve replaced Social History Patient Tobacco Use Status: Former Tobacco user Advance Directives Date on File: 10/29/21 Physical Exam Const Other: Well-nourished well-developed very friendly male awake alert and oriented x3 in no acute distress Lungs clear to auscultation bilaterally with symmetric expansion Cardiovascular exam regular rate and rhythm Abdominal exam is soft nontender nondistended Extrem Other: Bilateral upper extremity examination shows good capillary refill, no skin lesions noted, normal sensation light touch Left shoulder examination shows decreased range of motion when compared to his right shoulder, 3/5 strength with supraspinatus testing, positive impingement signs, tenderness over his acromioclavicular joint, no instability Results Reviewed Results Reviewed: MRI of the patient's left shoulder show severe acromioclavicular joint narrowing, type 2 acromion, signal change within the supraspinatus tendon due to partial-thickness tearing versus a small full-thickness tear Assessment & Plan Assessment & Plan (1) Rotator cuff insufficiency of left shoulder: Code(s): M25.312 - Other instability, left shoulder Plan: Mr. Jama presents with progressively worsening left shoulder pain and weakness due to impingement syndrome, acromioclavicular joint arthritis and a partial-thickness rotator cuff tear versus a small full-thickness tear. I had a lengthy discussion with the patient regarding the treatment options. At this point the patient has failed continued non operative treatments. The risks and benefits of left shoulder surgery were discussed at length with the patient. The patient is interested in proceeding with surgery. Surgery will most likely involve left shoulder diagnostic arthroscopy with distal clavicle excision, acromioplasty and rotator cuff repair showed a full-thickness tear be found at the time of his surgery. My office will contact the patient to pick a surgery date. The patient will continue with his range of motion exercises in the meantime. He will follow-up as instructed. Feel free to call me at any time should questions regarding his orthopedic management arise. I spent 22 minutes in reviewing the patient's records and imaging studies, seeing the patient and documenting in the medical record. Coding Level of Care Code Est Pt Level 2 (18433) Diagnoses Rotator cuff insufficiency of left shoulder M25.312
== END 2023-01-23 08:33 | disposition home or self-care (01) ==
PROVIDERS: PCP Internal Medicine; Visit Provider Orthopaedic Surgery
DX: M25.312 Other instability, left shoulder (principal)
CPT/HCPCS: 99212

== ENCOUNTER → 2023-01-23 08:18 | Outpatient (BNVA) | payer MEDICARE, OTHER, SELFPAY | PROVIDERS: PCP Internal Medicine; Visit Provider Orthopaedic Surgery | DX: M25.312 Other instability, left shoulder (principal) | CPT/HCPCS: 99212 ==

== ENCOUNTER 2023-01-30 08:28 | Outpatient (AMB) | payer MEDICARE, OTHER, SELFPAY ==
[2023-01-30 08:31] VITALS: BP 124/80; PULSE 71; BMI 35.8
--- NOTE | 2023-01-30 08:31 | MHC.OFFVIS ---
Intake Vital Signs 01/30/23 08:31 Height 5 ft 9 in Weight 242 lb 8.136 oz BMI 35.8 BP 124/80 Blood Pressure Location Lt brachial Position Sitting Pulse 71 Intake Visit Reasons: 1 year follow up Intake Note: 1year follow-up with ekg has been having runs of SVT Rec Therapist Required: No Straw Hat Brim Cutter Operator: Straw Hat Brim Cutter Operator Present Accompanied by: Spouse Allergies DUSTIN Inhibitors [Dustin Inhibitors] Allergy (Severe, Verified 01/16/23 09:57) ANAPHYLAXIS thimerosal [Thimerosal] Allergy (Severe, Verified 01/16/23 09:57) ANGIOEDEMA tamsulosin Allergy (Mild, Verified 01/16/23 09:57) tacycardia aspartame [ASPARTAME] Allergy (Unknown, Verified 01/16/23 09:57) UNKNOWN aspirin Allergy (Unknown, Verified 01/16/23 09:57) Anaphylaxis Cephalosporins [CEPHALOSPORINS] Allergy (Unknown, Verified 01/16/23 09:57) RASH codeine [Codeine] Allergy (Unknown, Verified 01/16/23 09:57) wakes up combative fluoxetine [From PROZAC] Allergy (Unknown, Verified 01/16/23 09:57) REQUIRED HOSPITALIZATION hexachlorophene [From PHISOHEX] Allergy (Unknown, Verified 01/16/23 09:57) UNKNOWN melon Allergy (Unknown, Verified 01/16/23 09:57) UNKNOWN morphine Allergy (Unknown, Verified 01/16/23 09:57) wakes up combative NSAIDS (Non-Steroidal Anti-Inflamma [NSAIDS (NON-STEROIDAL ANTI-INFLAMMA] Allergy (Unknown, Verified 01/16/23 09:57) Anaphylaxis penicillin V Allergy (Unknown, Verified 01/16/23 09:57) Rash Penicillins Allergy (Unknown, Verified 01/16/23 09:57) Rash perfume Allergy (Unknown, Verified 01/16/23 09:57) UNKNOWN pineapple [PINEAPPLE] Allergy (Unknown, Verified 01/16/23 09:57) ANGIOEDEMA povidone-iodine [From BETADINE] Allergy (Unknown, Verified 01/16/23 09:57) UNKNOWN soap [Betadine] Allergy (Unknown, Verified 01/16/23 09:57) Unknown monosodium glutamate Adverse Reaction (Unknown, Verified 01/16/23 09:57) HEADACHES aspartame Allergy (Unknown, Uncoded 01/16/23 09:57) Unknown dexon Allergy (Unknown, Uncoded 01/16/23 09:57) Unknown GLUE IN SHOES Allergy (Unknown, Uncoded 01/16/23 09:57) UNKNOWN melons Allergy (Unknown, Uncoded 01/16/23 09:57) Unknown PLASTIC TAPE Allergy (Unknown, Uncoded 01/16/23 09:57) skin problems POLYGLACTIC ACID(DEXON & VICRYL) Allergy (Unknown, Uncoded 01/16/23 09:57) UNKNOWN vicryl Allergy (Unknown, Uncoded 01/16/23 09:57) Unknown From Demerol Adverse Reaction (Unknown, Uncoded 01/16/23 09:57) HALLUNICATION Medication List - Last Reconciled 01/30/23 by James Fernando MD alogliptin 12.5 mg PO QAM aspirin (Adult Aspirin Regimen) 81 mg PO DAILY atorvastatin 20 mg PO QPM jzlyxoeouo-qrvckyeulnfwv-hkrl 50-325-40 mg tabs PO cholecalciferol (vitamin D3) 25 mcg PO DAILY clonazepam 0.5 mg PO DAILY PRN diltiazem HCl (Cardizem CD) 120 mg PO DAILY epinephrine (EpiPen) 0.3 mg IM Q10M PRN finasteride 5 mg PO DAILY fluoride (sodium) 1.1% PO fluticasone propionate 50 mcg/actuation 1 spray intranasal DAILY ipratropium-albuterol 20-100 mcg/actuation (Combivent Respimat) 1 puff inhalation Q6H ketoconazole 2% 1 appl topical DAILY metformin 1,000 mg PO DAILY metoprolol succinate ER 25 mg PO DAILY mometasone (Asmanex Twisthaler) 2 inhalations inhalation BID montelukast 10 mg PO DAILY omeprazole 40 mg PO DAILY saw palmetto 320 mg PO DAILY tadalafil (Cialis) 5 mg PO DAILY 90 days terazosin 10 mg PO DAILY HPI HPI Comments History of Present Illness Details Edwar comes for follow-up. Since starting the Cardizem he feels a lot better. He said the symptoms of palpitations have improved significantly. He denies any worsening shortness of breath, orthopnea, PND. He does go for a walk for 3 miles without any restriction. He does get short of breath when he pushes himself, but denies any chest discomfort. Denies any orthopnea, PND. Does get leg edema but at the end of the day below the knee. This is not unusual. He said he is sleeping better on Cardizem med. Denies any lightheadedness, syncope. The blood pressure is better controlled. He is scheduled to undergo left shoulder surgery in near future. [facility] Medical History History of GI diverticular bleed BPH (benign prostatic hyperplasia) History of blood transfusion GERD (gastroesophageal reflux disease) Type 2 diabetes mellitus Depression with anxiety PTSD (post-traumatic stress disorder) Migraine COPD, mild Asthma HTN (hypertension) Obstructive sleep apnea Enlarged RV (right ventricle) Mitral regurgitation Surgical History History of excision of lesion (06/25/22) History of arthroscopy of right knee History of left inguinal hernia repair History of repair of right rotator cuff History of repair of left rotator cuff History of mitral valve replacement S/P MVR (mitral valve replacement) Hx of cardiac cath Family History Father Rheumatic fever Mother No problems noted. Sister Hx of aortic valve repair Brother Mitral valve replaced Social History Patient Tobacco Use Status: Former Tobacco user Advance Directives Date on File: 10/29/21 Review of Systems Const Denies chills, Denies fatigue, Denies fever(s), Denies frequent falls, Denies weakness, Denies weight gain and Denies weight loss ENT Denies dizziness Card Denies chest pain, Denies leg edema, Denies lightheadedness, Denies palpitations, Denies dyspnea, Denies dyspnea on exertion, Denies orthopnea and Denies other (loss of consciousness) Resp Denies cough, Denies dyspnea and Denies dyspnea on exertion GI Denies hematochezia and Denies change in stool character Musc Denies abnormal gait, Denies muscle weakness, Denies numbness, Denies radiating pain into limb and Denies tingling Neuro Denies abnormal gait, Denies dizziness, Denies frequent falls, Denies numbness, Denies tingling and Denies weakness Endo Denies fatigue and Denies palpitations Physical Exam Vital Signs: Last Vital Signs Pulse 71 01/30/23 08:31 BP 124/80 01/30/23 08:31 BMI result Body Mass Index 35.8 Const General: cooperative, comfortable, no acute distress, alert, awake and well groomed Nutritional Appearance: obese Orientation/consciousness: patient oriented x3 Limitations: ambulation with cane HEENT Head: Yes normocephalic and Yes atraumatic Neck Neck: Yes trachea midline, Yes supple and Yes no JVD Chest Chest palpation & inspection: normal inspection of the chest and other (Well-healed sternotomy scar) Resp Effort & Inspection: normal respiratory effort Auscultation: clear to auscultation bilaterally and diminished lung sounds Cardio Jugular venous distension: no JVD Palpation: normal PMI Rate: regular rate Rhythm: regular rhythm Heart sounds: S1 normal heart sound present and S2 normal heart sound present GI Inspection: Yes obesity Auscultation: normal bowel sounds Skin General skin exam: no rashes or lesions noted Neuro General: patient oriented x3 and no focal motor deficits Extrem General: Yes no clubbing, cyanosis or edema Psych Appearance: grossly normal Affect: Anxious affect present Office Procedures EKG Details: EKG shows normal sinus rhythm with right bundle-branch block, unchanged from before [id number], Complete Assessment & Plan Assessment & Plan (1) S/P MVR (mitral valve replacement): Comment: 33 mm bioprosthetic Sarika Lupilloward mitral valve replacement with Chord reconstruction, April 2017. Minimal coronary artery disease prior to surgery. Code(s): Z95.2 - Presence of prosthetic heart valve Plan: Patient bioprosthetic mitral valve replacement, with mildly elevated gradient not significantly changed. No symptoms related to it. Advised to continue current medical therapy including aspirin therapy. SBE prophylaxis as per ACC/[facility] guidelines. Will continue monitor echocardiogram on a yearly basis. (2) PAC (premature atrial contraction): Code(s): I49.1 - Atrial premature depolarization Plan: Prior history of palpitation with PAC with rapid heart rate. Both of these are improved significantly on metoprolol therapy as well as Cardizem therapy. He is tolerating the therapy well. Continue the same. Avoidance of stimulants was discussed. (3) Preoperative cardiovascular examination: Code(s): Z01.810 - Encounter for preprocedural cardiovascular examination Plan: Preoperative cardiovascular risk stratification for shoulder surgery. This is considered intermediate risk surgery under general anesthesia. He has good functional capacity with normal LV systolic function. Nonobstructive coronary artery disease by cardiac catheterization prior to mitral valve replacement. He is currently optimized to undergo surgery with low to intermediate risk for perioperative cardiovascular morbidity mortality. His aspirin can be withheld for 5-7 days prior to the surgery. Continue all other medications in the perioperative period. Will follow up in the clinic 1 year's time after echocardiogram. Thank you for allowing me to partake in his care Coding Level of Care Code Est Pt Level 4 (51954) Diagnoses S/P MVR (mitral valve replacement) Z95.2 PAC (premature atrial contraction) I49.1 Preoperative cardiovascular examination Z01.810 CPT Codes EKG - CPT: 57169-[id number], Complete ([id number])
== END 2023-01-30 09:09 | disposition home or self-care (01) ==
PROVIDERS: PCP Internal Medicine; Referring Provider Internal Medicine; Visit Provider Internal Medicine Cardiovascular Disease
DX: Z95.2 Presence of prosthetic heart valve (principal); I49.1 Atrial premature depolarization; Z01.810 Encounter for preprocedural cardiovascular examination
CPT/HCPCS: 93010; 99214

== ENCOUNTER → 2023-01-30 08:28 | Outpatient (BNVA) | payer MEDICARE, OTHER, SELFPAY | PROVIDERS: PCP Internal Medicine; Referring Provider Internal Medicine; Visit Provider Internal Medicine Cardiovascular Disease | DX: Z01.810 Encounter for preprocedural cardiovascular examination (principal); I49.1 Atrial premature depolarization; Z95.2 Presence of prosthetic heart valve; Z79.82 Long term (current) use of aspirin; Z79.899 Other long term (current) drug therapy | CPT/HCPCS: 93005; 99212 ==

== ENCOUNTER 2023-02-07 09:16 | Day surgery (SDC) | payer MEDICARE, OTHER, SELFPAY ==
[2023-02-05 11:19] VITALS: BMI 35.7
--- NOTE | 2023-02-06 09:35 | HO.ANESPROP2 ---
Documented by User: Rosanna Jessica NP 02/06/23 15:40 HPI - Anesthesia Eval Consult details Narrative: 67yo M for Left Shoulder Arthroscopy distal clavical excision,Acromioplasty rotator cuff repain Cardiac cleared: mitral valve replacement with Chord reconstruction, April 2017. Minimal coronary artery disease prior to surgery. *multiple med allergies* PMFSH Active Problems Active Problems: All Active Problems (Updated 01/23/23 @ 08:44 by Percy Rausch MD) Rotator cuff insufficiency of left shoulder (Acute) Type 2 diabetes mellitus (Acute) Erectile dysfunction associated with type 2 diabetes mellitus (Acute) Left shoulder pain (Acute) Weak urinary stream (Acute) BPH (benign prostatic hyperplasia) (Acute) Skin lesion of left arm (Acute) PAC (premature atrial contraction) (Acute) S/P MVR (mitral valve replacement) (Acute) Prosthetic valve dysfunction (Acute) HTN (hypertension) (Acute) Palpitations (Acute) Past Medical History Medical History History of GI diverticular bleed BPH (benign prostatic hyperplasia) History of blood transfusion GERD (gastroesophageal reflux disease) Type 2 diabetes mellitus Depression with anxiety PTSD (post-traumatic stress disorder) Migraine COPD, mild Asthma HTN (hypertension) Obstructive sleep apnea Enlarged RV (right ventricle) Mitral regurgitation Family History Family History Father Rheumatic fever Mother No problems noted. Sister Hx of aortic valve repair Brother Mitral valve replaced Surgical History Surgical History History of excision of lesion (06/25/22) History of arthroscopy of right knee History of left inguinal hernia repair History of repair of right rotator cuff History of repair of left rotator cuff History of mitral valve replacement S/P MVR (mitral valve replacement) Hx of cardiac cath History of Problems with Anesthesia: No Social History Social History Patient Tobacco Use Status: Former Tobacco user Advance Directives: No Advance Directives Information Provided: Yes Advance Directives Date on File: 10/29/21 Meds Allergies Allergy/AdvReac Type Severity Reaction Status Date / Time DUSTIN Inhibitors Allergy Severe ANAPHYLAXIS Verified 01/16/23 09:57 [Dustin Inhibitors] thimerosal [Thimerosal] Allergy Severe ANGIOEDEMA Verified 01/16/23 09:57 tamsulosin Allergy Mild tacycardia Verified 01/16/23 09:57 aspartame [ASPARTAME] Allergy Unknown UNKNOWN Verified 01/16/23 09:57 aspirin Allergy Unknown Anaphylaxis Verified 01/16/23 09:57 Cephalosporins Allergy Unknown RASH Verified 01/16/23 09:57 [CEPHALOSPORINS] codeine [Codeine] Allergy Unknown wakes up Verified 01/16/23 09:57 combative fluoxetine [From PROZAC] Allergy Unknown REQUIRED Verified 01/16/23 09:57 HOSPITALIZATION hexachlorophene Allergy Unknown UNKNOWN Verified 01/16/23 09:57 [From PHISOHEX] melon Allergy Unknown UNKNOWN Verified 01/16/23 09:57 morphine Allergy Unknown wakes up Verified 01/16/23 09:57 combative NSAIDS (Non-Steroidal Allergy Unknown Anaphylaxis Verified 01/16/23 09:57 Anti-Inflamma [NSAIDS (NON-STEROIDAL ANTI-INFLAMMA] penicillin V Allergy Unknown Rash Verified 01/16/23 09:57 Penicillins Allergy Unknown Rash Verified 01/16/23 09:57 perfume Allergy Unknown UNKNOWN Verified 01/16/23 09:57 pineapple [PINEAPPLE] Allergy Unknown ANGIOEDEMA Verified 01/16/23 09:57 povidone-iodine Allergy Unknown UNKNOWN Verified 01/16/23 09:57 [From BETADINE] soap [Betadine] Allergy Unknown Unknown Verified 01/16/23 09:57 monosodium glutamate AdvReac Unknown HEADACHES Verified 01/16/23 09:57 aspartame Allergy Unknown Unknown Uncoded 01/16/23 09:57 dexon Allergy Unknown Unknown Uncoded 01/16/23 09:57 GLUE IN SHOES Allergy Unknown UNKNOWN Uncoded 01/16/23 09:57 melons Allergy Unknown Unknown Uncoded 01/16/23 09:57 PLASTIC TAPE Allergy Unknown skin Uncoded 01/16/23 09:57 problems POLYGLACTIC ACID(DEXON & Allergy Unknown UNKNOWN Uncoded 01/16/23 09:57 VICRYL) vicryl Allergy Unknown Unknown Uncoded 01/16/23 09:57 From Demerol AdvReac Unknown HALLUNICATI Uncoded 01/16/23 09:57 ON Active Medications: Current Medications Clindamycin Phosphate (Cleocin) 600 mg in 50 mls @ 100 mls/hr IV PREOP ONE Stop: 02/07/23 05:29 Home Medications Medication Instructions Recorded Confirmed Last Taken Type aspirin 81 mg tablet,delayed 81 mg PO DAILY 11/08/20 01/30/23 10/23/21 History release (Adult Aspirin Regimen) cholecalciferol (vitamin D3) 25 25 mcg PO DAILY 11/08/20 01/30/23 Unknown History mcg (1,000 unit) capsule clonazepam 0.5 mg tablet 0.5 mg PO DAILY PRN Anxiety 11/08/20 01/30/23 Unknown History epinephrine 0.3 mg/0.3 mL 0.3 mg IM Q10M PRN Allergic 11/08/20 01/30/23 Unknown History injection, auto-injector (EpiPen) Reaction finasteride 5 mg tablet 5 mg PO DAILY 11/08/20 01/30/23 Unknown History ipratropium 20 mcg-albuterol 100 1 puff inhalation Q6H 11/08/20 01/30/23 Unknown History mcg/actuation mist for inhalation (Combivent Respimat) ketoconazole 2 % topical cream 1 appl topical DAILY 11/08/20 01/30/23 Unknown History metoprolol succinate 25 mg 25 mg PO DAILY 11/08/20 01/30/23 Unknown History tablet,extended release 24 hr mometasone 220 mcg/actuation(30 2 inh inhalation BID 11/08/20 01/30/23 Unknown History doses) breath activated powder inhaler (Asmanex Twisthaler) saw palmetto 160 mg capsule 320 mg PO DAILY 11/08/20 01/30/23 Unknown History fluticasone propionate 50 1 spray intranasal DAILY 02/13/21 01/30/23 Unknown History mcg/actuation nasal spray,suspension montelukast 10 mg tablet 10 mg PO DAILY 02/13/21 01/30/23 Unknown History yrwghsrbqp-zvrdnzmnvnmua-oxpxlgkb tab PO 04/19/22 01/30/23 Unknown History 50 mg-325 mg-40 mg tablet fluoride (sodium) 1.1 % dental PO 04/19/22 01/30/23 Unknown History paste alogliptin 12.5 mg tablet 12.5 mg PO QAM 12/25/22 01/30/23 Unknown History atorvastatin 20 mg tablet 20 mg PO QPM 12/25/22 01/30/23 Unknown History metformin 1,000 mg tablet 1,000 mg PO DAILY 12/25/22 01/30/23 Unknown History terazosin 10 mg capsule 10 mg PO DAILY 12/25/22 01/30/23 Unknown History omeprazole 20 mg capsule,delayed 40 mg PO DAILY 01/30/23 01/30/23 Unknown History release Exam Exam Date and Time: February 06, 2023 0935 Height,Weight and Vital Signs: Height 5 ft 9 in Weight 109.769 kg Pertinent Lab Results Pertinent Lab Results: Laboratory Tests 12/11/22 06:10 WBC 6.9 Hgb 14.4 Hct 42.4 Plt Count 131 L Sodium 140 Potassium 4.1 Chloride 109 H Carbon Dioxide 24 BUN 16 Creatinine 0.80 Narrative Narrative: EKG 01/2023 normal sinus rhythm with right bundle-branch block, unchanged from before ECHO 01/2023 Conclusions: - Normal left ventricular cavity size. There is mildly increased left ventricular wall thickness. The left ventricular systolic function is low normal. The visually estimated ejection fraction is between 50-55%. - Mildly increased right ventricular cavity size. There is normal right ventricular systolic function. - There is mild dilatation of the sinuses of Valsalva measuring 4.00 cm and mild dilatation of the ascending aorta measuring 3.70 cm. - A bioprosthetic mitral valve is present. There is no mitral valve regurgitation. Mean gradient across the MV 6 mm Hg. 3 Day Holter 01/2023 1. Patient was monitored for total period of 3 days 2. Baseline was normal sinus rhythm with average heart of 70 beats per minute 3. No significant pauses noted 4. Frequent PACs noted with total burden of about 2% 5. One episode of fast heart rate consistent with SVT is noted at about 135 beats per minute 6. Patient marked symptoms 7 times with symptoms of shortness of breath and fluttering, 1 of them correlated with SVT Assessment and Plan Assessment Anesthesia Assessment: Chart Reviewed Final Anesthetic Review History of Problems with Anesthesia: No Documented by User: Yan Junior MD 02/07/23 10:04 PMFSH Past Medical History Medical History History of GI diverticular bleed BPH (benign prostatic hyperplasia) History of blood transfusion GERD (gastroesophageal reflux disease) Type 2 diabetes mellitus Depression with anxiety PTSD (post-traumatic stress disorder) Migraine COPD, mild Asthma HTN (hypertension) Obstructive sleep apnea Enlarged RV (right ventricle) Mitral regurgitation Family History Family History Father Rheumatic fever Mother No problems noted. Sister Hx of aortic valve repair Brother Mitral valve replaced Family history of problems with anesthesia: No Surgical History Surgical History History of excision of lesion (06/25/22) History of arthroscopy of right knee History of left inguinal hernia repair History of repair of right rotator cuff History of repair of left rotator cuff History of mitral valve replacement S/P MVR (mitral valve replacement) Hx of cardiac cath Social History Social History Patient Tobacco Use Status: Former Tobacco user Advance Directives: No Advance Directives Information Provided: Yes Advance Directives Date on File: 10/29/21 Meds Allergies Allergy/AdvReac Type Severity Reaction Status Date / Time DUSTIN Inhibitors Allergy Severe ANAPHYLAXIS Verified 01/16/23 09:57 [Dustin Inhibitors] thimerosal [Thimerosal] Allergy Severe ANGIOEDEMA Verified 01/16/23 09:57 tamsulosin Allergy Mild tacycardia Verified 01/16/23 09:57 aspartame [ASPARTAME] Allergy Unknown UNKNOWN Verified 01/16/23 09:57 aspirin Allergy Unknown Anaphylaxis Verified 01/16/23 09:57 Cephalosporins Allergy Unknown RASH Verified 01/16/23 09:57 [CEPHALOSPORINS] codeine [Codeine] Allergy Unknown wakes up Verified 01/16/23 09:57 combative fluoxetine [From PROZAC] Allergy Unknown REQUIRED Verified 01/16/23 09:57 HOSPITALIZATION hexachlorophene Allergy Unknown UNKNOWN Verified 01/16/23 09:57 [From PHISOHEX] melon Allergy Unknown UNKNOWN Verified 01/16/23 09:57 morphine Allergy Unknown wakes up Verified 01/16/23 09:57 combative NSAIDS (Non-Steroidal Allergy Unknown Anaphylaxis Verified 01/16/23 09:57 Anti-Inflamma [NSAIDS (NON-STEROIDAL ANTI-INFLAMMA] penicillin V Allergy Unknown Rash Verified 01/16/23 09:57 Penicillins Allergy Unknown Rash Verified 01/16/23 09:57 perfume Allergy Unknown UNKNOWN Verified 01/16/23 09:57 pineapple [PINEAPPLE] Allergy Unknown ANGIOEDEMA Verified 01/16/23 09:57 povidone-iodine Allergy Unknown UNKNOWN Verified 01/16/23 09:57 [From BETADINE] soap [Betadine] Allergy Unknown Unknown Verified 01/16/23 09:57 monosodium glutamate AdvReac Unknown HEADACHES Verified 01/16/23 09:57 aspartame Allergy Unknown Unknown Uncoded 01/16/23 09:57 dexon Allergy Unknown Unknown Uncoded 01/16/23 09:57 GLUE IN SHOES Allergy Unknown UNKNOWN Uncoded 01/16/23 09:57 melons Allergy Unknown Unknown Uncoded 01/16/23 09:57 PLASTIC TAPE Allergy Unknown skin Uncoded 01/16/23 09:57 problems POLYGLACTIC ACID(DEXON & Allergy Unknown UNKNOWN Uncoded 01/16/23 09:57 VICRYL) vicryl Allergy Unknown Unknown Uncoded 01/16/23 09:57 From Demerol AdvReac Unknown HALLUNICATI Uncoded 01/16/23 09:57 ON Home Medications Medication Instructions Recorded Confirmed Last Taken Type aspirin 81 mg tablet,delayed 81 mg PO DAILY 11/08/20 01/30/23 10/23/21 History release (Adult Aspirin Regimen) cholecalciferol (vitamin D3) 25 25 mcg PO DAILY 11/08/20 01/30/23 Unknown History mcg (1,000 unit) capsule clonazepam 0.5 mg tablet 0.5 mg PO DAILY PRN Anxiety 11/08/20 01/30/23 Unknown History epinephrine 0.3 mg/0.3 mL 0.3 mg IM Q10M PRN Allergic 11/08/20 01/30/23 Unknown History injection, auto-injector (EpiPen) Reaction finasteride 5 mg tablet 5 mg PO DAILY 11/08/20 01/30/23 Unknown History ipratropium 20 mcg-albuterol 100 1 puff inhalation Q6H 11/08/20 01/30/23 Unknown History mcg/actuation mist for inhalation (Combivent Respimat) ketoconazole 2 % topical cream 1 appl topical DAILY 11/08/20 01/30/23 Unknown History metoprolol succinate 25 mg 25 mg PO DAILY 11/08/20 01/30/23 Unknown History tablet,extended release 24 hr mometasone 220 mcg/actuation(30 2 inh inhalation BID 11/08/20 01/30/23 Unknown History doses) breath activated powder inhaler (Asmanex Twisthaler) saw palmetto 160 mg capsule 320 mg PO DAILY 11/08/20 01/30/23 Unknown History fluticasone propionate 50 1 spray intranasal DAILY 02/13/21 01/30/23 Unknown History mcg/actuation nasal spray,suspension montelukast 10 mg tablet 10 mg PO DAILY 02/13/21 01/30/23 Unknown History fyvkzpukjy-nybrhcvzpvwgu-pdpufdgx tab PO 04/19/22 01/30/23 Unknown History 50 mg-325 mg-40 mg tablet fluoride (sodium) 1.1 % dental PO 04/19/22 01/30/23 Unknown History paste alogliptin 12.5 mg tablet 12.5 mg PO QAM 12/25/22 01/30/23 Unknown History atorvastatin 20 mg tablet 20 mg PO QPM 12/25/22 01/30/23 Unknown History metformin 1,000 mg tablet 1,000 mg PO DAILY 12/25/22 01/30/23 Unknown History terazosin 10 mg capsule 10 mg PO DAILY 12/25/22 01/30/23 Unknown History omeprazole 20 mg capsule,delayed 40 mg PO DAILY 01/30/23 01/30/23 Unknown History release Exam Airway Mallampati Class: III TM Dist: >3cm Neck ROM: Limited Heart: rrr Lungs: cts Assessment and Plan Assessment Anesthesia Assessment: Anesthesia Plan Discussed Final Anesthetic Review Family History of Problems with Anesthesia: No NPO: Yes ASA Class: III Final Preanesthetic Review: No Changes in Pt Med Stat, Meds/Allgs Chart Reviewed, Consent Obtained/Reviewed and Anes Risks/Benef Reviewed Patient Risk: Intermediate Procedure Risk: Intermediate Anesthetic Plan Anesthetic Plan: GA, Neuraxial Block: and Agree w/ Assess. and Plan Disposition: Standard PACU
[2023-02-07] VITALS (8 sets, daily range): BP systolic 140–150; BP diastolic 43–89; PULSE 60–67; RESP 14–18; TEMP 36.3–36.6; O2SAT 92–93
[2023-02-07 10:38] LABS: Glucose, Whole Blood 224 mg/dL (60-115)
[2023-02-07] MEDS: Lactated Ringers 1,000 ML 100 ML IVCONT (10:45)
--- NOTE | 2023-02-07 13:13 | PM.OP ---
Brief Operative Note Date of Service: 02/07/23 Pre-op diagnosis: Left shoulder rotator cuff tear, left shoulder impingement syndrome, left shoulder acromioclavicular joint arthritis Post-op diagnosis: same Procedure: Left shoulder diagnostic arthroscopy with left shoulder arthroscopic distal clavicle excision, left shoulder arthroscopic acromioplasty, left shoulder mini-open rotator cuff repair Implants: Two suture anchors ([employer] Intraline suture anchors with #2 Ultrabraid suture) Surgeon: Percy Rausch MD Anesthesia: GLMA Was an [facility] Di[facility] used for this Procedure?: Yes [facility] [employer] Dipper: Pavan Bustos Estimated blood loss (mL): 15 Pathology: none sent Condition: stable Disposition: PACU
--- NOTE | 2023-02-07 13:18 | P.OP_ITS ---
Operative Note Operative Note Date of Service: 02/07/23 Narrative: After the patient was identified as Jared Jama and their left shoulder was initialed by myself the patient was brought to the holding area where a left shoulder interscalene regional block was performed by the anesthesiologist in routine fashion. The patient was then brought to the operating room where general anesthesia was induced by the anesthesiologist in routine fashion. Because of the patient's allergy to cephalosporins he was given 600 mg of IV clindamycin preoperatively for infection prophylaxis. Examination under anesthesia of the patient's left shoulder showed full passive range of motion of the patient's left shoulder when compared to the right. The patient was gently positioned in the beach chair position with all bony prominences well padded. The patient's left shoulder region and upper extremity were prepped and draped in sterile fashion. A formal time-out was completed. A #11 scalpel blade was used to make a posterior portal 2 cm inferior and 1 cm medial to the posterolateral corner of the acromion. Blunt trocar technique was used to enter the glenohumeral joint in routine fashion. An anterior portal was made just lateral to the coracoid process after proper positioning was confirmed using a spinal needle. Diagnostic arthroscopy showed minimal degenerative changes of the glenoid and humeral head articular surfaces. There was a full-thickness tear of the supraspinatus tendon. There was tearing of the biceps tendon measuring approximately 80% of the tendon with. Thus, a biceps tenotomy was performed using an arthroscopic biter and the arthroscopic shaver. There was no inflammation of the anterior joint capsule. The arthroscope was then placed from the posterior portal into the subacromial space. A lateral portal was made 2 fingerbreadths lateral to the anterior lateral corner of the acromion. The ArthroCare Wand was used to ablate soft tissues along the undersurface of the acromion as well as to excise the coracoacromial ligament. There was a sharp spur along the undersurface of the acromion which was removed using the hooded bur. The arthroscope was then placed into the lateral portal and the acromioplasty was completed with the bur in the posterior portal using the posterior aspect of the acromion as a cutting block. The ArthroCare Wand was then brought in through the anterior portal and was used to ablate soft tissues along the acromioclavicular joint and distal clavicle. The posterior and superior ligamentous structures were left intact. A distal clavicle excision of 8 mm was performed using the hooded bur. Any remaining bursal tissue was removed using the arthroscopic shaver. The subacromial space was irrigated and then drained. All arthroscopic instruments were removed. Sterile gloves were changed and the shoulder was once again prepped with Betadine. A #15 scalpel blade was used to extend the lateral portal to the lateral edge of the acromion. The subacromial tissues were dissected using electrocautery down to the supe rficial deltoid fascia. The trocar split in the anterior raphe of the deltoid was then extended to the lateral edge of the acromion using electrocautery and curved Miller scissors. Any remaining bursal tissue was removed using curved Miller scissors. Subacromial and subdeltoid adhesions were bluntly dissected. The undersurface of the acromion was palpated and it was smooth. A #2 Ethibond tag suture was placed into the supraspinatus tendon. The tendon was easily mobilized to its insertion point on the glenoid. The wound was irrigated with copious amounts of normal saline solution. Two suture anchors were placed into the greater tuberosity in routine fashion. The rotator cuff repair was then performed using horizontal mattress sutures under minimal tension with the patient's elbow at their side. Following the repair the shoulder was taken through a full range of motion. The repair was stable. The wound was irrigated with copious amounts of normal saline solution. The superficial and deep deltoid fascia were closed with #1 Ethibond [id number] interrupted suture. The wound was once again irrigated. The subcutaneous tissues were closed with 3-0 Monocryl interrupted suture. The skin was closed with 3-0 Prolene subcuticular suture and Steri-Strips. The anterior and posterior portals were closed with 3-0 nylon interrupted suture. Dry sterile dressing was placed over all incisions. The patient's left upper extremity was placed into a sling. The patient was awoken and extubated in the operating room. The patient was transferred to the recovery room in stable condition.
[2023-02-07] MEDS: Clindamycin Phosphate/D5W 600 MG/50 ML PIGGYBACK 100 MG IV (13:39)
[2023-02-07] MEDS: ondansetron HCL 4 MG/2 ML VIAL IVPUSH (13:59)
--- NOTE | 2023-02-07 16:38 | PC.NURSE ---
received call from patients shortly following discharge regarding pain prescription script not yet called into pharmacy. Following discussion with md. Rausch and text to Ramya Verdin script was confirmed to have been sent into [facility] and I personally spoke with the pharmacist who confirmed script... where in which case I called back patients and closed the loop of communication with her informing her that the script was in process at the pharmacy.
== END 2023-02-07 14:48 | disposition home or self-care (01) ==
PROVIDERS: PCP Internal Medicine; Visit Provider Orthopaedic Surgery
PROC: (CPT 29805; principal; 2023-02-07 11:20)
DX: M75.102 Unspecified rotator cuff tear or rupture of left shoulder, not specified as traumatic (principal); M75.42 Impingement syndrome of left shoulder; M25.312 Other instability, left shoulder; M19.012 Primary osteoarthritis, left shoulder; Z98.890 Other specified postprocedural states; N40.0 Benign prostatic hyperplasia without lower urinary tract symptoms; K21.9 Gastro-esophageal reflux disease without esophagitis; J44.9 Chronic obstructive pulmonary disease, unspecified; F41.8 Other specified anxiety disorders; F43.10 Post-traumatic stress disorder, unspecified; I10 Essential (primary) hypertension; I34.0 Nonrheumatic mitral (valve) insufficiency; I42.2 Other hypertrophic cardiomyopathy; Z95.2 Presence of prosthetic heart valve; G47.33 Obstructive sleep apnea (adult) (pediatric); Z79.51 Long term (current) use of inhaled steroids; Z79.82 Long term (current) use of aspirin; Z79.84 Long term (current) use of oral hypoglycemic drugs; Z79.899 Other long term (current) drug therapy; Z88.8 Allergy status to other drugs, medicaments and biological substances; Z88.5 Allergy status to narcotic agent; Z88.1 Allergy status to other antibiotic agents; Z87.891 Personal history of nicotine dependence
CPT/HCPCS: 29827; 29826; 82947; C1713; J0171; J2405; J2795

== ENCOUNTER → 2023-02-07 09:16 | Outpatient (BNV) | payer MEDICARE, OTHER, SELFPAY | PROVIDERS: PCP Internal Medicine; Visit Provider Orthopaedic Surgery | DX: S46.011A Strain of muscle(s) and tendon(s) of the rotator cuff of right shoulder, initial encounter (principal); M75.41 Impingement syndrome of right shoulder; M19.011 Primary osteoarthritis, right shoulder | CPT/HCPCS: 29824; 29826; 29827 ==

== ENCOUNTER 2023-02-20 09:27 | Outpatient (AMB) | payer MEDICARE, OTHER, SELFPAY ==
--- NOTE | 2023-02-20 09:32 | MHC.OFFVIS ---
Intake Intake Visit Reasons: PO-Lt Shoulder RTC Repair 02/07/23 Intake Note: Jared a 67 year old male who presents today for a post operative left shoulder RTC repair, DOS 02/07/23 Patient reports pain is tolerable most of the time, states mild throbbing pain. Currently his pain level is 2 out of 10. Continues to do at home exercises as instructed. Allergies DUSTIN Inhibitors [Dustin Inhibitors] Allergy (Severe, Verified 01/16/23 09:57) ANAPHYLAXIS thimerosal [Thimerosal] Allergy (Severe, Verified 01/16/23 09:57) ANGIOEDEMA tamsulosin Allergy (Mild, Verified 01/16/23 09:57) tacycardia aspartame [ASPARTAME] Allergy (Unknown, Verified 01/16/23 09:57) UNKNOWN aspirin Allergy (Unknown, Verified 01/16/23 09:57) Anaphylaxis Cephalosporins [CEPHALOSPORINS] Allergy (Unknown, Verified 01/16/23 09:57) RASH codeine [Codeine] Allergy (Unknown, Verified 01/16/23 09:57) wakes up combative fluoxetine [From PROZAC] Allergy (Unknown, Verified 01/16/23 09:57) REQUIRED HOSPITALIZATION hexachlorophene [From PHISOHEX] Allergy (Unknown, Verified 01/16/23 09:57) UNKNOWN melon Allergy (Unknown, Verified 01/16/23 09:57) UNKNOWN morphine Allergy (Unknown, Verified 01/16/23 09:57) wakes up combative NSAIDS (Non-Steroidal Anti-Inflamma [NSAIDS (NON-STEROIDAL ANTI-INFLAMMA] Allergy (Unknown, Verified 01/16/23 09:57) Anaphylaxis penicillin V Allergy (Unknown, Verified 01/16/23 09:57) Rash Penicillins Allergy (Unknown, Verified 01/16/23 09:57) Rash perfume Allergy (Unknown, Verified 01/16/23 09:57) UNKNOWN pineapple [PINEAPPLE] Allergy (Unknown, Verified 01/16/23 09:57) ANGIOEDEMA povidone-iodine [From BETADINE] Allergy (Unknown, Verified 01/16/23 09:57) UNKNOWN soap [Betadine] Allergy (Unknown, Verified 01/16/23 09:57) Unknown monosodium glutamate Adverse Reaction (Unknown, Verified 01/16/23 09:57) HEADACHES aspartame Allergy (Unknown, Uncoded 01/16/23 09:57) Unknown dexon Allergy (Unknown, Uncoded 01/16/23 09:57) Unknown GLUE IN SHOES Allergy (Unknown, Uncoded 01/16/23 09:57) UNKNOWN melons Allergy (Unknown, Uncoded 01/16/23 09:57) Unknown PLASTIC TAPE Allergy (Unknown, Uncoded 01/16/23 09:57) skin problems POLYGLACTIC ACID(DEXON & VICRYL) Allergy (Unknown, Uncoded 01/16/23 09:57) UNKNOWN vicryl Allergy (Unknown, Uncoded 01/16/23 09:57) Unknown From Demerol Adverse Reaction (Unknown, Uncoded 01/16/23 09:57) HALLUNICATION HPI PO-Lt Shoulder RTC Repair 02/07/23 DR CORREA Details 67-year-old male who returns to the office today for post-op left shoulder RTC repair, 02/07/[address] Rausch. He states he has mild throbbing pain which is tolerable most of the time. He rates the pain as 2 on the scale of 0-10. He continues to do exercises at home as instructed. He is doing well overall and has no concerns today. [facility] Medical History (Updated 02/07/23 @ 10:20 by Dianne Allison RN) Elevated cholesterol History of GI diverticular bleed BPH (benign prostatic hyperplasia) History of blood transfusion GERD (gastroesophageal reflux disease) Type 2 diabetes mellitus Depression with anxiety PTSD (post-traumatic stress disorder) Migraine COPD, mild Asthma HTN (hypertension) Obstructive sleep apnea Enlarged RV (right ventricle) Mitral regurgitation Surgical History History of excision of lesion (06/25/22) History of arthroscopy of right knee History of left inguinal hernia repair History of repair of right rotator cuff History of repair of left rotator cuff History of mitral valve replacement S/P MVR (mitral valve replacement) Hx of cardiac cath Family History Father Rheumatic fever Mother No problems noted. 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 No erythema or drainage around the incision. NVI. Assessment & Plan Assessment & Plan (1) Rotator cuff insufficiency of left shoulder: Code(s): M25.312 - Other instability, left shoulder Plan Sutures removed today, steri strips applied. He will continue to wear the sling while sleeping and when he is out of the house. He can remove the sling for hygiene and exercises. I did review with him some pendulum exercises and scapular exercises. He is to do no active ROM or activation of RTC. He was given a handout today on some exercises that he can work on in next couple weeks and he will begin formal physical therapy on or around March 02. An order was placed today to initiate this and he will see us back in the office in [address] Rausch, sooner if needed. Orders: Orders PT Evaluation and Treatment Today M25.312 - Other instability, left shoulder Patient Instructions: Scribed for Pavan Bustos PA-C, by Asad Flowers medical attendant, on 02/20/2023 at 9:45 AM EST. Pavan Salmon PA-C, have personally reviewed and agree with the information entered by the scribe. Coding Level of Care Code Global (36149) Diagnoses Rotator cuff insufficiency of left shoulder M25.312
== END 2023-02-20 09:53 | disposition home or self-care (01) ==
PROVIDERS: PCP Internal Medicine; Visit Provider Physician Assistant
DX: M25.312 Other instability, left shoulder (principal)
CPT/HCPCS: 99024

== ENCOUNTER → 2023-02-20 09:27 | Outpatient (BNVA) | payer MEDICARE, OTHER, SELFPAY | PROVIDERS: PCP Internal Medicine; Visit Provider Physician Assistant ==

== ENCOUNTER 2023-03-20 09:00 | Outpatient (AMB) | payer MEDICARE, OTHER, SELFPAY ==
--- NOTE | 2023-03-20 09:14 | MHC.OFFVIS ---
Intake Intake Visit Reasons: PO-Lt Shoulder RTC Repair 02/07/23 Intake Note: Jared a 67 year old male who presents today for a post operative left shoulder RTC repair, DOS 02/07/23 States he is working with [employer]. States he is doing well just a little sore. He denies any fevers or chills. Allergies DUSTIN Inhibitors [Dustin Inhibitors] Allergy (Severe, Verified 03/20/23 09:16) ANAPHYLAXIS thimerosal [Thimerosal] Allergy (Severe, Verified 03/20/23 09:16) ANGIOEDEMA tamsulosin Allergy (Mild, Verified 03/20/23 09:16) tacycardia aspartame [ASPARTAME] Allergy (Unknown, Verified 03/20/23 09:16) UNKNOWN aspirin Allergy (Unknown, Verified 03/20/23 09:16) Anaphylaxis Cephalosporins [CEPHALOSPORINS] Allergy (Unknown, Verified 03/20/23 09:16) RASH codeine [Codeine] Allergy (Unknown, Verified 03/20/23 09:16) wakes up combative fluoxetine [From PROZAC] Allergy (Unknown, Verified 03/20/23 09:16) REQUIRED HOSPITALIZATION hexachlorophene [From PHISOHEX] Allergy (Unknown, Verified 03/20/23 09:16) UNKNOWN melon Allergy (Unknown, Verified 03/20/23 09:16) UNKNOWN morphine Allergy (Unknown, Verified 03/20/23 09:16) wakes up combative NSAIDS (Non-Steroidal Anti-Inflamma [NSAIDS (NON-STEROIDAL ANTI-INFLAMMA] Allergy (Unknown, Verified 03/20/23 09:16) Anaphylaxis penicillin V Allergy (Unknown, Verified 03/20/23 09:16) Rash Penicillins Allergy (Unknown, Verified 03/20/23 09:16) Rash perfume Allergy (Unknown, Verified 03/20/23 09:16) UNKNOWN pineapple [PINEAPPLE] Allergy (Unknown, Verified 03/20/23 09:16) ANGIOEDEMA povidone-iodine [From BETADINE] Allergy (Unknown, Verified 03/20/23 09:16) UNKNOWN soap [Betadine] Allergy (Unknown, Verified 03/20/23 09:16) Unknown monosodium glutamate Adverse Reaction (Unknown, Verified 03/20/23 09:16) HEADACHES aspartame Allergy (Unknown, Uncoded 03/20/23 09:16) Unknown dexon Allergy (Unknown, Uncoded 03/20/23 09:16) Unknown GLUE IN SHOES Allergy (Unknown, Uncoded 03/20/23 09:16) UNKNOWN melons Allergy (Unknown, Uncoded 03/20/23 09:16) Unknown PLASTIC TAPE Allergy (Unknown, Uncoded 03/20/23 09:16) skin problems POLYGLACTIC ACID(DEXON & VICRYL) Allergy (Unknown, Uncoded 03/20/23 09:16) UNKNOWN vicryl Allergy (Unknown, Uncoded 03/20/23 09:16) Unknown From Demerol Adverse Reaction (Unknown, Uncoded 03/20/23 09:16) HALLUNICATION Medication List - Last Reconciled 03/20/23 by Percy Rausch MD alogliptin (Nesina) 12.5 mg PO QAM aspirin (Adult Aspirin Regimen) 81 mg PO DAILY atorvastatin 20 mg PO QPM amrbckwqco-kwbpjtzudkmdu-tiyu 50-325-40 mg tabs PO DAILY PRN cholecalciferol (vitamin D3) 25 mcg PO DAILY clonazepam 0.5 mg PO DAILY PRN diltiazem HCl 180 mg PO DAILY epinephrine (EpiPen) 0.3 mg IM Q10M PRN finasteride 5 mg PO DAILY fluoride (sodium) 1.1% PO fluticasone propionate 50 mcg/actuation (Flonase Allergy Relief) 1 spray intranasal DAILY hydrocodone-acetaminophen 5-325 mg 1 tab PO Q4-6H PRN 7 days ipratropium-albuterol 20-100 mcg/actuation (Combivent Respimat) 1 puff inhalation Q6H metformin 1,000 mg PO DAILY metoprolol succinate ER 25 mg PO DAILY mometasone (Asmanex Twisthaler) 2 inhalations inhalation BID montelukast 10 mg PO DAILY omeprazole 40 mg PO DAILY saw palmetto 320 mg PO DAILY tadalafil (Cialis) 5 mg PO DAILY 90 days terazosin 10 mg PO DAILY PFSH Medical History (Updated 02/07/23 @ 10:20 by Dianne Allison RN) Elevated cholesterol History of GI diverticular bleed BPH (benign prostatic hyperplasia) History of blood transfusion GERD (gastroesophageal reflux disease) Type 2 diabetes mellitus Depression with anxiety PTSD (post-traumatic stress disorder) Migraine COPD, mild Asthma HTN (hypertension) Obstructive sleep apnea Enlarged RV (right ventricle) Mitral regurgitation Surgical History History of excision of lesion (06/25/22) History of arthroscopy of right knee History of left inguinal hernia repair History of repair of right rotator cuff History of repair of left rotator cuff History of mitral valve replacement S/P MVR (mitral valve replacement) Hx of cardiac cath Family History Father Rheumatic fever Mother No problems noted. 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 Physical Exam Extrem Other: Physical examination of the patient's left shoulder shows that the surgical incisions are well healed, no signs of infection, minimal discomfort with passive range of motion Assessment & Plan Assessment & Plan (1) Left shoulder pain: Code(s): M25.512 - Pain in left shoulder Plan Mr. Jama continues to do well after undergoing left shoulder rotator cuff repair surgery on 02/07/2023. He will continue going to formal physical therapy for now. I will hold off on active lifting until he is 8 weeks out from surgery. He will contact me prior to his follow-up appointment in 6 weeks should any questions or concerns arise. Feel free to call me at any time should questions regarding his orthopedic management arise. Orders: Orders XR shoulder LT min 2V Today M25.512 - Pain in left shoulder Coding Level of Care Code Global (26596) Diagnoses Left shoulder pain M25.512
== END 2023-03-20 09:32 | disposition home or self-care (01) ==
PROVIDERS: PCP Internal Medicine; Visit Provider Orthopaedic Surgery
DX: M25.512 Pain in left shoulder (principal)
CPT/HCPCS: 99024

== ENCOUNTER 2023-03-20 09:24 | Outpatient (REF) | payer MEDICARE, OTHER, SELFPAY ==
--- NOTE | ~2023-03-20 | XR_ITS ---
EXAMINATION: XR SHOULDER, LEFT CLINICAL INFORMATION: Pain in left shoulder COMPARISON: Left shoulder 12/25/2022 TECHNIQUE: AP external rotation, Grashey, scapular Y, and axillary views of the left shoulder. FINDINGS: The bones are intact. No fracture. Glenohumeral and acromioclavicular alignment is anatomic. There is interval widening of the acromioclavicular joint which now measures 0.96 cm. Interval placement of 2 surgical anchors in to the left humeral head. No abnormal soft tissue calcifications. The patient is status post median sternotomy. XR/XR shoulder LT min 2V IMPRESSION: Interval placement of 2 surgical anchors into the left humeral head.
== END 2023-03-20 09:25 | disposition home or self-care (01) ==
LOC: HO.HOSX 09:24
PROVIDERS: Visit Provider Orthopaedic Surgery
DX: M25.512 Pain in left shoulder (principal); Z79.899 Other long term (current) drug therapy
CPT/HCPCS: 73030

== ENCOUNTER 2023-04-25 07:00 | Outpatient (RCR) | payer MEDICARE, OTHER, SELFPAY ==
--- NOTE | 2023-03-11 09:32 | MHC.PT.EP ---
[facility] [place] [facility] [place] [facility] [place] [facility] [address] Navya Erazo [address] [phone] F: [phone] F: [phone] F: [phone] F: [phone] Physical Therapy Plan of Care Date of Evaluation: 03/10/23 Date of Surgery: 02/07/23 Diagnosis: L RTC repair: DOS 02/07/23 Assessment: Pt is a 68 y/o male referred to PT for eval and treat of R RTC repair performed on 02/07/[address] Rausch for management of R shoulder dysfunction resulting in decreased tolerance and ability to dress pullovers, lift objects of weight, place objects on high shelves, push pull objects, lay on his R side, and drive secondary to decreased R shoulder ROM and strength, surgical healing process and pain. Pt is deemed an appropriate candidate to receive skilled PT services in order to maximize his functional recovery. Frequency and Duration: The patient will be seen 2 x / wk x 10 wks. Short Term Goals: Initiate home program. Pt will achieve at least 160 degrees shoulder AROM flexion. Pt will no longer have pain at rest; initial: 2-07/26. Public Works Manager Goals: I with home program. Pt will be able to place objects on high shelf with managed Sx. Pt will be able to dress pullovers with managed Sx. Pt will improve SPADI outcome measure by at least 13 points. Treatment Plan: Modalities to reduce pain, spasms and effusion. Manual therapy to restore motion and function. Therapeutic exercise to improve strength and flexibility. Neuromuscular re-education for posture and balance. Therapeutic activities to return to functional activities of daily living. Electronically signed by: Fernando Crane PT. Please sign and return to therapist. Thank you for your referral.
--- NOTE | 2023-07-03 09:43 | MHC.PT.DC ---
[facility] [place] [facility] [place] [facility] [place] [facility] [address] Navya Erazo [address] [phone] F: [phone] F: [phone] F: [phone] F: [phone] Physical Therapy Discharge Report Diagnosis: L RTC repair: DOS 02/07/23 Date of Surgery: 02/07/23 Date of Evaluation: 03/10/23 Date of Discharge: 07/03/23 Treatments to Date: 12 Cancellations to Date: No Shows to Date: Discharge Status: Patient Elected to Stop Discharge Summary: Jared had been an active and motivated participant in his therapy until he voiced his dismay at having appointments changed d/t therapist illness. Though he was offered several times and opportunities though unfortunately requested DC and to go to another facility as he would not accept treatment times other than 7-8AM; as a courtesy his chart was left open in case he changed his mind. Electronically signed by: Fernando Crane PT. Please sign and return to therapist. Thank you for your referral.
== END 2023-07-03 09:44 | disposition home or self-care (01) ==
LOC: HO.PT 07:00
PROVIDERS: PCP Internal Medicine; Visit Provider Physician Assistant
DX: M25.312 Other instability, left shoulder (principal)
CPT/HCPCS: 97110; 97140; 97161; 97530

== ENCOUNTER 2023-05-01 08:35 | Outpatient (AMB) | payer MEDICARE, OTHER, SELFPAY ==
--- NOTE | 2023-05-01 08:37 | A.OFFVIS_ITS ---
Intake Intake Visit Reasons: PO-Lt Shoulder RTC Repair 02/07/23 Intake Note: Mr. Jama presents with complaints of mild discomfort in his left shoulder after undergoing left shoulder revision rotator cuff repair surgery on 02/07/2022. He continues with his physical therapy exercises. He denies any fevers or chills. Today is most concerned with right knee pain. He describes his right knee pain as sharp in nature. His knee pain has gotten worse over the last few weeks in spite of continued non operative treatments. He has tried Tylenol which gives him minimal relief. He has also done stretching exercises which gave him only mild relief. He denies any locking or giving way. He does not recall any specific traumatic event preceding the onset of his pain. Allergies DUSTIN Inhibitors [Dustin Inhibitors] Allergy (Severe, Verified 05/01/23 08:39) Anaphylaxis aspirin Allergy (Severe, Verified 05/01/23 08:39) Anaphylaxis NSAIDS (Non-Steroidal Anti-Inflamma [NSAIDS (NON-STEROIDAL ANTI-INFLAMMA] Allergy (Severe, Verified 05/01/23 08:39) Anaphylaxis thimerosal [Thimerosal] Allergy (Severe, Verified 05/01/23 08:39) Angioedema tamsulosin Allergy (Mild, Verified 05/01/23 08:39) tacycardia aspartame [ASPARTAME] Allergy (Unknown, Verified 05/01/23 08:39) Unknown Cephalosporins [CEPHALOSPORINS] Allergy (Unknown, Verified 05/01/23 08:39) Rash fluoxetine [From PROZAC] Allergy (Unknown, Verified 05/01/23 08:39) REQUIRED HOSPITALIZATION hexachlorophene [From PHISOHEX] Allergy (Unknown, Verified 05/01/23 08:39) Unknown melon Allergy (Unknown, Verified 05/01/23 08:39) Unknown penicillin V Allergy (Unknown, Verified 05/01/23 08:39) Rash Penicillins Allergy (Unknown, Verified 05/01/23 08:39) Rash perfume Allergy (Unknown, Verified 05/01/23 08:39) Unknown pineapple [PINEAPPLE] Allergy (Unknown, Verified 05/01/23 08:39) Angioedema povidone-iodine [From BETADINE] Allergy (Unknown, Verified 05/01/23 08:39) Unknown soap [Betadine] Allergy (Unknown, Verified 05/01/23 08:39) Unknown codeine [Codeine] Adverse Reaction (Unknown, Verified 05/01/23 08:39) wakes up combative monosodium glutamate Adverse Reaction (Unknown, Verified 05/01/23 08:39) Headache morphine Adverse Reaction (Unknown, Verified 05/01/23 08:39) wakes up combative meperidine [From Demerol] Adverse Reaction (Verified 05/01/23 08:39) Hallucinations dexon Allergy (Unknown, Uncoded 05/01/23 08:39) Unknown GLUE IN SHOES Allergy (Unknown, Uncoded 05/01/23 08:39) UNKNOWN PLASTIC TAPE Allergy (Unknown, Uncoded 05/01/23 08:39) skin problems POLYGLACTIC ACID(DEXON & VICRYL) Allergy (Unknown, Uncoded 05/01/23 08:39) UNKNOWN vicryl Allergy (Unknown, Uncoded 05/01/23 08:39) Unknown Medication List - Last Reconciled 05/01/23 by Percy Rausch MD aspirin (Adult Aspirin Regimen) 81 mg PO DAILY atorvastatin 20 mg PO QPM klmnxyjemj-ukapynehrncjw-vlae 50-325-40 mg tabs PO DAILY PRN cholecalciferol (vitamin D3) 25 mcg PO DAILY clonazepam 0.5 mg PO DAILY PRN diltiazem HCl 180 mg PO DAILY epinephrine (EpiPen) 0.3 mg IM Q10M PRN finasteride 5 mg PO DAILY fluoride (sodium) 1.1% PO fluticasone propionate 50 mcg/actuation (Flonase Allergy Relief) 1 spray intranasal DAILY ipratropium-albuterol 20-100 mcg/actuation (Combivent Respimat) 1 puff inhalation Q6H metformin 1,000 mg PO DAILY metoprolol succinate ER 25 mg PO BID 30 days mometasone (Asmanex Twisthaler) 2 inhalations inhalation BID montelukast 10 mg PO DAILY omeprazole 40 mg PO DAILY saw palmetto 320 mg PO DAILY semaglutide (weight loss) 0.5 mg subcut QWEEK tadalafil (Cialis) 5 mg PO DAILY 90 days terazosin 10 mg PO DAILY PFSH Medical History (Updated 05/01/23 @ 08:58 by Percy Rausch MD) Elevated cholesterol History of GI diverticular bleed BPH (benign prostatic hyperplasia) History of blood transfusion GERD (gastroesophageal reflux disease) Type 2 diabetes mellitus Depression with anxiety PTSD (post-traumatic stress disorder) Migraine COPD, mild Asthma HTN (hypertension) Obstructive sleep apnea Enlarged RV (right ventricle) Mitral regurgitation Surgical History (Reviewed 02/20/23 @ 09:36 by Brittany Valentino [facility]) History of excision of lesion (06/25/22) History of arthroscopy of right knee History of left inguinal hernia repair History of repair of right rotator cuff History of repair of left rotator cuff History of mitral valve replacement S/P MVR (mitral valve replacement) Hx of cardiac cath Family History Father Rheumatic fever Mother No problems noted. 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 Physical Exam Const Other: Well-nourished well-developed very friendly male awake alert and oriented x3 in no acute distress Extrem Other: Left shoulder examination shows that the surgical incisions are well healed, no erythema, almost full passive range of motion when compared to his right shoulder, minimal discomfort with resisted forward flexion, no discomfort with resisted internal or external rotation Right knee examination shows a minimal effusion, palpable crepitus with range of motion, pain with range of motion, no instability Office Procedures Joint Injection/Drain Joint Injection/Drain Primary Site: right knee Prep: site was prepped using aseptic technique Injected: 40 mg of, DepoMedrol and 1% plain lidocaine Procedure: The patient tolerated the procedure well Coding 42851 - Large joint Procedure code (CPT) selection complete Assessment & Plan Assessment & Plan (1) Rotator cuff insufficiency of left shoulder: Code(s): M25.312 - Other instability, left shoulder (2) Right knee pain: Code(s): M25.561 - Pain in right knee Plan Mr. Jama continues to do well after undergoing left shoulder revision rotator cuff repair surgery on 02/07/2023. He will continue with his physical therapy exercises. The do's and don'ts of lifting were discussed at length with the patient. The patient also has right knee pain due to degenerative joint disease. I had a lengthy discussion with the patient regarding the treatment options. The risks and benefits of a right knee cortisone injection were discussed at length with the patient. The patient wished to proceed. He tolerated the injection well. He will continue with his home stretching program. He will contact me prior to his follow-up appointment in 2 months should any questions or concerns arise. Feel free to call me at any time should questions regarding his orthopedic management arise. Orders: Orders AMB Joint Injection/Aspiration Today M25.561 - Pain in right knee PT Evaluation and Treatment Today M25.312 - Other instability, left shoulder Coding Level of Care Code Est Pt Level 2 (15269) Diagnoses Rotator cuff insufficiency of left shoulder M25.312 Right knee pain M25.561 CPT Codes Coding - 56907 Large joint: 77160 - Large joint ([id number])
== END 2023-05-01 09:03 | disposition home or self-care (01) ==
PROVIDERS: PCP Internal Medicine; Visit Provider Orthopaedic Surgery
DX: M25.312 Other instability, left shoulder (principal); M25.561 Pain in right knee
CPT/HCPCS: 20610; 99213

== ENCOUNTER → 2023-05-01 08:35 | Outpatient (BNVA) | payer MEDICARE, OTHER, SELFPAY | PROVIDERS: PCP Internal Medicine; Visit Provider Orthopaedic Surgery | DX: M25.312 Other instability, left shoulder (principal); M25.561 Pain in right knee | CPT/HCPCS: 20610; 99212; J1020 ==

== ENCOUNTER 2023-07-03 08:12 | Outpatient (AMB) | payer MEDICARE, OTHER, SELFPAY ==
--- NOTE | 2023-07-03 08:13 | MHC.OFFVIS ---
Intake Intake Visit Reasons: OV-Lt Shoulder RTC Repair 02/07/23 Intake Note: Jared is a 68 year old male who presents for his post operative appointment of his Left shoulder RTC repair on 02/07/2023. Patient reports that he is doing well he is still doing physical therapy at the [facility] which is going very well. He denies any fevers or chills. He does not take any medicines for his discomfort. Allergies DUSTIN Inhibitors [Dustin Inhibitors] Allergy (Severe, Verified 07/03/23 08:14) Anaphylaxis aspirin Allergy (Severe, Verified 07/03/23 08:14) Anaphylaxis NSAIDS (Non-Steroidal Anti-Inflamma [NSAIDS (NON-STEROIDAL ANTI-INFLAMMA] Allergy (Severe, Verified 07/03/23 08:14) Anaphylaxis thimerosal [Thimerosal] Allergy (Severe, Verified 07/03/23 08:14) Angioedema tamsulosin Allergy (Mild, Verified 07/03/23 08:14) tacycardia aspartame [ASPARTAME] Allergy (Unknown, Verified 07/03/23 08:14) Unknown Cephalosporins [CEPHALOSPORINS] Allergy (Unknown, Verified 07/03/23 08:14) Rash fluoxetine [From PROZAC] Allergy (Unknown, Verified 07/03/23 08:14) REQUIRED HOSPITALIZATION hexachlorophene [From PHISOHEX] Allergy (Unknown, Verified 07/03/23 08:14) Unknown melon Allergy (Unknown, Verified 07/03/23 08:14) Unknown penicillin V Allergy (Unknown, Verified 07/03/23 08:14) Rash Penicillins Allergy (Unknown, Verified 07/03/23 08:14) Rash perfume Allergy (Unknown, Verified 07/03/23 08:14) Unknown pineapple [PINEAPPLE] Allergy (Unknown, Verified 07/03/23 08:14) Angioedema povidone-iodine [From BETADINE] Allergy (Unknown, Verified 07/03/23 08:14) Unknown soap [Betadine] Allergy (Unknown, Verified 07/03/23 08:14) Unknown codeine [Codeine] Adverse Reaction (Unknown, Verified 07/03/23 08:14) wakes up combative monosodium glutamate Adverse Reaction (Unknown, Verified 07/03/23 08:14) Headache morphine Adverse Reaction (Unknown, Verified 07/03/23 08:14) wakes up combative meperidine [From Demerol] Adverse Reaction (Verified 07/03/23 08:14) Hallucinations dexon Allergy (Unknown, Uncoded 05/01/23 08:39) Unknown GLUE IN SHOES Allergy (Unknown, Uncoded 05/01/23 08:39) UNKNOWN PLASTIC TAPE Allergy (Unknown, Uncoded 05/01/23 08:39) skin problems POLYGLACTIC ACID(DEXON & VICRYL) Allergy (Unknown, Uncoded 05/01/23 08:39) UNKNOWN vicryl Allergy (Unknown, Uncoded 05/01/23 08:39) Unknown Medication List - Last Reconciled 07/03/23 by Percy Rausch MD aspirin (Adult Aspirin Regimen) 81 mg PO DAILY atorvastatin 20 mg PO QPM [id number]-[id number] 50-325-40 mg tabs PO DAILY PRN cholecalciferol (vitamin D3) 25 mcg PO DAILY clonazepam 0.5 mg PO DAILY PRN diltiazem HCl 180 mg PO DAILY epinephrine (EpiPen) 0.3 mg IM Q10M PRN finasteride 5 mg PO DAILY fluoride (sodium) 1.1% PO fluticasone propionate 50 mcg/actuation (Flonase Allergy Relief) 1 spray intranasal DAILY ipratropium-albuterol 20-100 mcg/actuation (Combivent Respimat) 1 puff inhalation Q6H metformin 1,000 mg PO DAILY metoprolol succinate ER 25 mg PO BID 30 days mometasone (Asmanex Twisthaler) 2 inhalations inhalation BID montelukast 10 mg PO DAILY omeprazole 40 mg PO DAILY saw palmetto 320 mg PO DAILY semaglutide (weight loss) 0.5 mg subcut QWEEK tadalafil (Cialis) 5 mg PO DAILY 90 days terazosin 10 mg PO DAILY PFSH Medical History Elevated cholesterol History of GI diverticular bleed BPH (benign prostatic hyperplasia) History of blood transfusion GERD (gastroesophageal reflux disease) Type 2 diabetes mellitus Depression with anxiety PTSD (post-traumatic stress disorder) Migraine COPD, mild Asthma HTN (hypertension) Obstructive sleep apnea Enlarged RV (right ventricle) Mitral regurgitation Surgical History History of excision of lesion (06/25/22) History of arthroscopy of right knee History of left inguinal hernia repair History of repair of right rotator cuff History of repair of left rotator cuff History of mitral valve replacement S/P MVR (mitral valve replacement) Hx of cardiac cath Family History Father Rheumatic fever Mother No problems noted. 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 Jama continues to do well after undergoing left shoulder rotator cuff repair surgery on 02/07/2023. He will continue going to formal physical therapy for now. The do's and don'ts of lifting were discussed at length with the patient. He will contact me prior to his follow-up appointment in 3 months should any questions or concerns arise. Feel free to call me at any time should questions regarding his orthopedic management arise. I spent 22 minutes in reviewing the patient's records and imaging studies, seeing the patient and documenting in the medical record. Coding Level of Care Code Est Pt Level 2 (99481) Diagnoses Left shoulder pain M25.512
== END 2023-07-03 08:48 | disposition home or self-care (01) ==
PROVIDERS: PCP Internal Medicine; Visit Provider Orthopaedic Surgery
DX: M25.512 Pain in left shoulder (principal)
CPT/HCPCS: 99213

== ENCOUNTER → 2023-07-03 08:12 | Outpatient (BNVA) | payer MEDICARE, OTHER, SELFPAY | PROVIDERS: PCP Internal Medicine; Visit Provider Orthopaedic Surgery | DX: M25.512 Pain in left shoulder (principal) | CPT/HCPCS: 99212 ==

== ENCOUNTER 2023-07-18 08:09 | Outpatient (AMB) | payer MEDICARE, OTHER, SELFPAY ==
--- NOTE | 2023-07-18 08:15 | A.OFFVIS_ITS ---
Intake Intake Visit Reasons: 6m/PVR confirmed Intake Note: Patient presents today for a follow-up Meds- Terazosin, Tadalafil, Finasteride Allergies to Antibiotic- Cephalosporins, Penicillins, Blood Thinner- Aspirin Post Void Residual: 26ml Patient Symptoms: None Accompanied by: Allergies DUSTIN Inhibitors [Dustin Inhibitors] Allergy (Severe, Verified 07/18/23 08:) Anaphylaxis aspirin Allergy (Severe, Verified 07/18/23:) Anaphylaxis NSAIDS (Non-Steroidal Anti-Inflamma [NSAIDS (NON-STEROIDAL ANTI-INFLAMMA] Allergy (Severe, Verified 07/18/23 08:) Anaphylaxis thimerosal [Thimerosal] Allergy (Severe, Verified 07/18/23:) Angioedema tamsulosin Allergy (Mild, Verified 07/18/23 08:) tacycardia aspartame [ASPARTAME] Allergy (Unknown, Verified 07/18/23 08:) Unknown Cephalosporins [CEPHALOSPORINS] Allergy (Unknown, Verified 07/18/23) Rash fluoxetine [From PROZAC] Allergy (Unknown, Verified 07/18/23:) REQUIRED HOSPITALIZATION hexachlorophene [From PHISOHEX] Allergy (Unknown, Verified 07/18/23:) Unknown melon Allergy (Unknown, Verified 07/18/23:) Unknown penicillin V Allergy (Unknown, Verified 07/18/23:) Rash Penicillins Allergy (Unknown, Verified 07/18/23:) Rash perfume Allergy (Unknown, Verified 07/18/23:) Unknown pineapple [PINEAPPLE] Allergy (Unknown, Verified 07/18/23) Angioedema povidone-iodine [From BETADINE] Allergy (Unknown, Verified 07/18/23:) Unknown soap [Betadine] Allergy (Unknown, Verified 07/18/23:) Unknown codeine [Codeine] Adverse Reaction (Unknown, Verified 03/01/24 08:29) wakes up combative monosodium glutamate Adverse Reaction (Unknown, Verified 07/18/23 08:) Headache morphine Adverse Reaction (Unknown, Verified 07/18/23 08:) wakes up combative meperidine [From Demerol] Adverse Reaction (Verified 07/18/23 08:) Hallucinations dexon Allergy (Unknown, Uncoded 07/18/23 08:29) Unknown GLUE IN SHOES Allergy (Unknown, Uncoded 07/18/23 08:) UNKNOWN PLASTIC TAPE Allergy (Unknown, Uncoded 07/18/23 08:) skin problems POLYGLACTIC ACID(DEXON & VICRYL) Allergy (Unknown, Uncoded 07/18/23 08:) UNKNOWN vicryl Allergy (Unknown, Uncoded 07/18/23 08:) Unknown HPI HPI Comments History of Present Illness Details Jared is a pleasant male. He is a patient of Dr. Atkinson. 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 Has been on combination therapy with finasteride, tadalafil, and terazosin Increasing urgency Discussed options Will retrial oxybutynin Does have weak stream as well Lower urinary tract symptoms Progressive weakness of stream, nocturia, incomplete bladder emptying Background diabetes for greater than 10 years Current therapy with finasteride and terazosin Prior therapy with alpha blockers - did not tolerate tamsulosin secondary to increased heart rate 11/08 Cystoscopy Bladder neck open Trabec ulation grade 3 - small diverticulum [facility] Medical History Elevated cholesterol History of GI diverticular bleed BPH (benign prostatic hyperplasia) History of blood transfusion GERD (gastroesophageal reflux disease) Type 2 diabetes mellitus Depression with anxiety PTSD (post-traumatic stress disorder) Migraine COPD, mild Asthma HTN (hypertension) Obstructive sleep apnea Enlarged RV (right ventricle) Mitral regurgitation Surgical History History of excision of lesion (06/25/22) History of arthroscopy of right knee History of left inguinal hernia repair History of repair of right rotator cuff History of repair of left rotator cuff History of mitral valve replacement S/P MVR (mitral valve replacement) Hx of cardiac cath Family History Father Rheumatic fever Mother No problems noted. 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 Review of Systems Const Denies chills and Denies fever(s) Card Reports no additional complaints and Denies syncope Resp Denies cough GI Denies abdominal pain and Denies heartburn Reports as per HPI and Denies change in libido Neuro Denies syncope Psych Denies change in libido Endo Denies change in libido Physical Exam Const General: cooperative, healthy appearing, comfortable and no acute distress Orientation/consciousness: patient oriented x3 HEENT Face and sinus: Yes normal facial exam Mouth: moist mucous membranes Neck Neck: Yes normal visual inspection, Yes full ROM and Yes trachea midline Chest Chest palpation & inspection: normal inspection of the chest Resp Effort & Inspection: normal respiratory effort, able to speak in complete sentences and no respiratory distress GI Inspection: Yes normal to inspection Back/Spine/Pelvis Cervical Spine: normal cervical lordosis Thoracic/Lumbar Spine: thoracic and lumbar spine normal to inspection Skin General skin exam: no rashes or lesions noted Neuro General: patient oriented x3, gait normal, tone normal and moves all extremities Extrem General: Yes normal to inspection and Yes capillary refill normal Office Procedures Post Void Residual Post Residual Void Post Void Residual (PVR): 26 [id number] Void Residual by ultrasound Assessment & Plan Assessment & Plan (1) Overactive bladder: Code(s): N32.81 - Overactive bladder (2) Nocturia more than twice per night: Code(s): R35.1 - Nocturia (3) Weak urinary stream: Code(s): R39.12 - Poor urinary stream Plan Trial oxybutynin Orders: Orders AMB Post Void Residual by ultrasound Today R33.9 - Retention of urine, unspecified Medications: New oxybutynin chloride ER 5 mg PO DAILY 30 tabs 1RF 30 days N32.81 - Overactive bladder Patient Instructions: Imaging studies, laboratory and physical exam results were discussed and reviewed in detail. No major barriers to patient understanding were identified. An opportunity to ask questions regarding the treatment plan was provided. All questions were answered. The patient expressed understanding and agreement with the above treatment plan. The patient is aware they should contact our office by phone for worsening of their current condition or the appearance of new urologic symptoms. Compliance is encouraged with any medications and followup testing that is ordered. It is a privilege to participate in the urologic care of your patient. If you have any questions or concerns regarding treatment for the above conditions, or other urologic issues, please do not hesitate to contact me. The office telephone contact is [phone]. This note is constructed using voice recognition software. While every effort has been made to ensure accuracy fishing captain errors may have been included. Yours sincerely, Dr Pierre Rajput MD, [facility] - Urology Providers of Expert, Compassionate Care for the Genitourinary System Coding Level of Care Code Est Pt Level 4 (10740) Diagnoses Overactive bladder N32.81 Nocturia more than twice per night R35.1 Weak urinary stream R39.12 CPT Codes Post Residual Void - PVR CPT Code: 64185-Vxxb Void Residual by ultrasound ([id number])
== END 2023-07-18 09:03 | disposition home or self-care (01) ==
PROVIDERS: PCP Internal Medicine; Visit Provider Urology
DX: N32.81 Overactive bladder (principal); R35.1 Nocturia; R39.12 Poor urinary stream
CPT/HCPCS: 99214

== ENCOUNTER → 2023-07-18 08:09 | Outpatient (BNVA) | payer MEDICARE, OTHER, SELFPAY | PROVIDERS: PCP Internal Medicine; Visit Provider Urology | DX: N32.81 Overactive bladder (principal); R35.1 Nocturia; R39.12 Poor urinary stream | CPT/HCPCS: 51798; 99212 ==

== ENCOUNTER 2023-08-12 08:11 | Outpatient (AMB) | payer MEDICARE, OTHER, SELFPAY ==
--- NOTE | 2023-08-12 08:16 | A.OFFVIS_ITS ---
Intake Vital Signs 08/12/23 08:20 Height 5 ft 9 in Weight 218 lb BMI 32.2 Intake Visit Reasons: OV-Left shoulder follow up Intake Note: Jared is a 68 year old male who presents for a follow up Left RTC Repair on 02/07/2023 The patient reports mild to moderate intermittent discomfort in his left shoulder. He does not take any medicines for his discomfort. He does not want any medicines for his discomfort. He continues to go to formal physical therapy. He states that although the therapy does cause some discomfort he feels like he continues to benefit from the physical therapy. Patient reports he is having pain and cracking. He is going to physical therapy and is having trouble some of the exercises. Allergies DUSTIN Inhibitors [Dustin Inhibitors] Allergy (Severe, Verified 08/12/23 08:23) Anaphylaxis aspirin Allergy (Severe, Verified 08/12/23 08:23) Anaphylaxis NSAIDS (Non-Steroidal Anti-Inflamma [NSAIDS (NON-STEROIDAL ANTI-INFLAMMA] Allergy (Severe, Verified 08/12/23 08:23) Anaphylaxis thimerosal [Thimerosal] Allergy (Severe, Verified 08/12/23 08:23) Angioedema tamsulosin Allergy (Mild, Verified 08/12/23 08:23) tacycardia aspartame [ASPARTAME] Allergy (Unknown, Verified 08/12/23 08:23) Unknown Cephalosporins [CEPHALOSPORINS] Allergy (Unknown, Verified 08/12/23 08:23) Rash fluoxetine [From PROZAC] Allergy (Unknown, Verified 08/12/23 08:23) REQUIRED HOSPITALIZATION hexachlorophene [From PHISOHEX] Allergy (Unknown, Verified 08/12/23 08:23) Unknown melon Allergy (Unknown, Verified 08/12/23 08:23) Unknown penicillin V Allergy (Unknown, Verified 08/12/23 08:23) Rash Penicillins Allergy (Unknown, Verified 08/12/23 08:23) Rash perfume Allergy (Unknown, Verified 08/12/23 08:23) Unknown pineapple [PINEAPPLE] Allergy (Unknown, Verified 08/12/23 08:23) Angioedema povidone-iodine [From BETADINE] Allergy (Unknown, Verified 08/12/23 08:23) Unknown soap [Betadine] Allergy (Unknown, Verified 08/12/23 08:23) Unknown codeine [Codeine] Adverse Reaction (Unknown, Verified 08/12/23 08:23) wakes up combative monosodium glutamate Adverse Reaction (Unknown, Verified 08/12/23 08:23) Headache morphine Adverse Reaction (Unknown, Verified 08/12/23 08:23) wakes up combative meperidine [From Demerol] Adverse Reaction (Verified 08/12/23 08:23) Hallucinations dexon Allergy (Unknown, Uncoded 07/18/23 08:29) Unknown GLUE IN SHOES Allergy (Unknown, Uncoded 07/18/23 08:29) UNKNOWN PLASTIC TAPE Allergy (Unknown, Uncoded 07/18/23 08:29) skin problems POLYGLACTIC ACID(DEXON & VICRYL) Allergy (Unknown, Uncoded 07/18/23 08:29) UNKNOWN vicryl Allergy (Unknown, Uncoded 07/18/23 08:29) Unknown Medication List - Last Reconciled 08/12/23 by Percy Rausch MD aspirin (Adult Aspirin Regimen) 81 mg PO DAILY atorvastatin 20 mg PO QPM [id number]-zmpndrviztmry-[id number] 50-325-40 mg tabs PO DAILY PRN cholecalciferol (vitamin D3) 25 mcg PO DAILY clonazepam 0.5 mg PO DAILY PRN diltiazem HCl 180 mg PO DAILY epinephrine (EpiPen) 0.3 mg IM Q10M PRN finasteride 5 mg PO DAILY fluoride (sodium) 1.1% PO fluticasone propionate 50 mcg/actuation (Flonase Allergy Relief) 1 spray intranasal DAILY ipratropium-albuterol 20-100 mcg/actuation (Combivent Respimat) 1 puff inhalat ion Q6H metformin 1,500 mg PO DAILY metformin ER 750 mg PO BID metoprolol succinate ER 25 mg PO BID 30 days mometasone (Asmanex Twisthaler) 2 inhalations inhalation BID montelukast 10 mg PO DAILY omeprazole 40 mg PO DAILY oxybutynin chloride ER 5 mg PO DAILY 30 days saw palmetto 320 mg PO DAILY semaglutide (weight loss) 0.5 mg subcut QWEEK tadalafil (Cialis) 5 mg PO DAILY 90 days terazosin 10 mg PO DAILY PFSH Medical History Elevated cholesterol History of GI diverticular bleed BPH (benign prostatic hyperplasia) History of blood transfusion GERD (gastroesophageal reflux disease) Type 2 diabetes mellitus Depression with anxiety PTSD (post-traumatic stress disorder) Migraine COPD, mild Asthma HTN (hypertension) Obstructive sleep apnea Enlarged RV (right ventricle) Mitral regurgitation Surgical History History of excision of lesion (06/25/22) History of arthroscopy of right knee History of left inguinal hernia repair History of repair of right rotator cuff History of repair of left rotator cuff History of mitral valve replacement S/P MVR (mitral valve replacement) Hx of cardiac cath Family History Father Rheumatic fever Mother No problems noted. 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 Physical Exam Vital Signs: BMI result Body Mass Index 32.2 Const Other: Well-nourished well-developed very friendly male awake alert and oriented x3 in no acute distress Extrem Other: Bilateral upper extremity examination shows good capillary refill, no skin lesions noted, normal sensation light touch Left shoulder examination shows full passive range of motion when compared to his right shoulder, 4/5 strength with supraspinatus testing, mild discomfort with resisted forward flexion, no discomfort with resisted internal or external rotation Assessment & Plan Assessment & Plan (1) Left shoulder pain: Code(s): M25.512 - Pain in left shoulder Plan Mr. Jama continues to do fairly well after undergoing left shoulder rotator cuff repair surgery on 02/07/2023. He will continue going to formal physical for now. He will gradually transition to a home exercise program. The do's and don'ts of lifting were discussed at length with the patient. He will contact me prior to his follow-up appointment in 2 months should any questions or concerns arise. Feel free to call me at any time should questions regarding his orthopedic management arise. I spent 22 minutes in reviewing the patient's records and imaging studies, seeing the patient and documenting in the medical record. Coding Level of Care Code Est Pt Level 2 (45291) Diagnoses Left shoulder pain M25.512
[2023-08-12 08:20] VITALS: BMI 32.2
== END 2023-08-12 08:44 | disposition home or self-care (01) ==
PROVIDERS: PCP Internal Medicine; Visit Provider Orthopaedic Surgery
DX: M25.512 Pain in left shoulder (principal)
CPT/HCPCS: 99213

== ENCOUNTER → 2023-08-12 08:11 | Outpatient (BNVA) | payer MEDICARE, OTHER, SELFPAY | PROVIDERS: PCP Internal Medicine; Visit Provider Orthopaedic Surgery | DX: M25.512 Pain in left shoulder (principal) | CPT/HCPCS: 99212 ==

== ENCOUNTER 2023-09-19 09:24 | Outpatient (AMB) | payer MEDICARE, OTHER, SELFPAY ==
--- NOTE | 2023-09-19 09:27 | MHC.OFFVIS ---
Intake Visit Reasons: 2M Med Review(Oxybutynin) Intake Note: Patient is Present for Telephone Follow Up Med review- Oxybutynin Urology Med: Terazosin, Finasteride, Tadalafil, Oxybutynin Antibiotic Allergy:Penicillin Blood Thinner: Aspirin Patient wants to discuss the oxybutynin wants to discuss about changing medication Allergies DUSTIN Inhibitors [Dustin Inhibitors] Allergy (Severe, Verified 09/19/23 09:29) Anaphylaxis aspirin Allergy (Severe, Verified 09/19/23 09:29) Anaphylaxis NSAIDS (Non-Steroidal Anti-Inflamma [NSAIDS (NON-STEROIDAL ANTI-INFLAMMA] Allergy (Severe, Verified 09/19/23 09:29) Anaphylaxis thimerosal [Thimerosal] Allergy (Severe, Verified 09/19/23 09:29) Angioedema tamsulosin Allergy (Mild, Verified 09/19/23 09:29) tacycardia aspartame [ASPARTAME] Allergy (Unknown, Verified 09/19/23 09:) Unknown Cephalosporins [CEPHALOSPORINS] Allergy (Unknown, Verified 09/19/23:) Rash fluoxetine [From PROZAC] Allergy (Unknown, Verified 09/19/23 09:) REQUIRED HOSPITALIZATION hexachlorophene [From PHISOHEX] Allergy (Unknown, Verified 09/19/23 09:) Unknown melon Allergy (Unknown, Verified 09/19/23:) Unknown penicillin V Allergy (Unknown, Verified 09/19/23 09:29) Rash Penicillins Allergy (Unknown, Verified 09/19/23 09:29) Rash perfume Allergy (Unknown, Verified 09/19/23 09:29) Unknown pineapple [PINEAPPLE] Allergy (Unknown, Verified 09/19/23 09:29) Angioedema povidone-iodine [From BETADINE] Allergy (Unknown, Verified 09/19/23 09:29) Unknown soap [Betadine] Allergy (Unknown, Verified 09/19/23 09:29) Unknown codeine [Codeine] Adverse Reaction (Unknown, Verified 09/19/23:29) wakes up combative monosodium glutamate Adverse Reaction (Unknown, Verified 09/19/23 09:29) Headache morphine Adverse Reaction (Unknown, Verified 09/19/23 09:29) wakes up combative meperidine [From Demerol] Adverse Reaction (Verified 09/19/23 09:29) Hallucinations dexon Allergy (Unknown, Uncoded 09/19/23 09:29) Unknown GLUE IN SHOES Allergy (Unknown, Uncoded 09/19/23 09:29) UNKNOWN PLASTIC TAPE Allergy (Unknown, Uncoded 09/19/23 09:29) skin problems POLYGLACTIC ACID(DEXON & VICRYL) Allergy (Unknown, Uncoded 09/19/23 09:29) UNKNOWN vicryl Allergy (Unknown, Uncoded 09/19/23 09:) Unknown HPI Comments Details: Jared is a pleasant male. He is a patient of Dr. Atkinson. He seen for the following urologic issues - Lower urinary tract symptoms - detrusor hyperactivity and impaired contractility Telemedicine Evaluation 15 min Consultation [employer] Chidi Video Six week follow-up urgency and frequency - continued ongoing care of complex chronic condition Had trial of oxybutynin for increased urgency - worked well Switched to VESIcare 2mg Has been on combination therapy with finasteride, tadalafil, and terazosin Lower urinary tract symptoms Progressive weakness of stream, nocturia, incomplete bladder emptying Background diabetes for greater than 10 years Current therapy with finasteride and terazosin Prior therapy with alpha blockers - did not tolerate tamsulosin secondary to increased heart rate 11/08 Cystoscopy Bladder neck open Trabeculation grade 3 - small diverticulum [facility] Medical History Elevated cholesterol History of GI diverticular bleed BPH (benign prostatic hyperplasia) History of blood transfusion GERD (gastroesophageal reflux disease) Type 2 diabetes mellitus Depression with anxiety PTSD (post-traumatic stress disorder) Migraine COPD, mild Asthma HTN (hypertension) Obstructive sleep apnea Enlarged RV (right ventricle) Mitral regurgitation Surgical History History of excision of lesion (06/25/22) History of arthroscopy of right knee History of left inguinal hernia repair History of repair of right rotator cuff History of repair of left rotator cuff History of mitral valve replacement S/P MVR (mitral valve replacement) Hx of cardiac cath Family History Father Rheumatic fever Mother No problems noted. 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 Review of Systems Const All systems reviewed & are unremarkable except as noted in HPI and below Reports no additional complaints Resp Reports no additional complaints GI Reports no additional complaints Reports as per HPI Musc Reports no additional complaints Physical Exam Telemedicine evaluation Appropriate responses Regular breathing rate and rhythm HEENT Head: Yes normal to inspection Ears: hearing grossly normal bilaterally Eyes General: appearance normal, both eyes and all related structures Neck Neck: Yes normal visual inspection Chest Chest palpation & inspection: normal inspection of the chest Resp Effort & Inspection: normal respiratory effort and able to speak in complete sentences Telehealth Telehealth Telehealth Platform: [employer] Location of provider rendering services: practice address Location of patient: address on file Patient Identification confirmed using: Name, : Yes Telehealth method: video Patient verbally consented to treatment: Yes Patient verbally consented to billing insurance company: Yes Patient informed of any privacy concerns related to visit: Yes Assessment & Plan Assessment & Plan (1) Overactive bladder: Code(s): N32.81 - Overactive bladder Category: Medical (2) Nocturia more than twice per night: Code(s): R35.1 - Nocturia Category: Medical Plan Trial tolterodine for 2 months He will call if effective Otherwise 6 month follow-up Medications: Changed From oxybutynin chloride ER 5 mg PO DAILY 30 days 30 tabs 1RF N32.81 - Overactive bladder To tolterodine ER 2 mg PO DAILY 30 days 30 caps 1RF N32.81 - Overactive bladder Patient Instructions: Imaging studies, laboratory and physical exam results were discussed and reviewed in detail. No major barriers to patient understanding were identified. An opportunity to ask questions regarding the treatment plan was provided. All questions were answered. The patient expressed understanding and agreement with the above treatment plan. The patient is aware they should contact our office by phone for worsening of their current condition or the appearance of new urologic symptoms. Compliance is encouraged with any medications and followup testing that is ordered. It is a privilege to participate in the urologic care of your patient. If you have any questions or concerns regarding treatment for the above conditions, or other urologic issues, please do not hesitate to contact me. The office telephone contact is [phone]. This note is constructed using voice recognition software. While every effort has been made to ensure accuracy honing machine set up operator errors may have been included. Yours sincerely, Dr Pierre Rajput MD, REK[facility] - Urology Providers of Expert, Compassionate Care for the Genitourinary System Coding Level of Care Code Tele Est Pt Level 3 (41129) Complex EM visit Add On G2211 Diagnoses Overactive bladder N32.81 Nocturia more than twice per night R35.1
== END 2023-09-19 10:00 | disposition home or self-care (01) ==
LOC: HO.HUSH 09:25
PROVIDERS: PCP Internal Medicine; Visit Provider Urology
DX: N32.81 Overactive bladder (principal); R35.1 Nocturia
CPT/HCPCS: 99213; G2211

== ENCOUNTER → 2023-09-19 09:24 | Outpatient (BNVA) | payer MEDICARE, OTHER, SELFPAY | PROVIDERS: PCP Internal Medicine; Visit Provider Urology ==

== ENCOUNTER 2023-11-11 07:34 | Outpatient (AMB) | payer MEDICARE, OTHER, SELFPAY ==
--- NOTE | 2023-11-11 07:41 | A.OFFVIS_ITS ---
Vital Signs 11/11/23 07:42 Height 5 ft 9 in Weight 215 lb BMI 31.7 Handedness Right Intake Visit Reasons: OV-Lt Shoulder RTC Repair 02/07/23 Intake Note: Jared is a 68 year old male who presents today for a follow up visit for Left Shoulder RTC Repair 02/07/23. Patient reports he is doing well, he reports he is having crunching sounds in his shoulder. [facility] he reports minimal discomfort in his left shoulder. He does not take any medicines for his discomfort. Allergies DUSTIN Inhibitors [Dustin Inhibitors] Allergy (Severe, Verified 11/11/23 07:42) Anaphylaxis aspirin Allergy (Severe, Verified 11/11/23 07:42) Anaphylaxis NSAIDS (Non-Steroidal Anti-Inflamma [NSAIDS (NON-STEROIDAL ANTI-INFLAMMA] Allergy (Severe, Verified 11/11/23 07:42) Anaphylaxis thimerosal [Thimerosal] Allergy (Severe, Verified 11/11/23 07:42) Angioedema tamsulosin Allergy (Mild, Verified 11/11/23 07:42) tacycardia aspartame [ASPARTAME] Allergy (Unknown, Verified 11/11/23 07:42) Unknown Cephalosporins [CEPHALOSPORINS] Allergy (Unknown, Verified 11/11/23 07:42) Rash fluoxetine [From PROZAC] Allergy (Unknown, Verified 11/11/23 07:42) REQUIRED HOSPITALIZATION hexachlorophene [From PHISOHEX] Allergy (Unknown, Verified 11/11/23 07:42) Unknown melon Allergy (Unknown, Verified 11/11/23 07:42) Unknown penicillin V Allergy (Unknown, Verified 11/11/23 07:42) Rash Penicillins Allergy (Unknown, Verified 11/11/23 07:42) Rash perfume Allergy (Unknown, Verified 11/11/23 07:42) Unknown pineapple [PINEAPPLE] Allergy (Unknown, Verified 11/11/23 07:42) Angioedema povidone-iodine [From BETADINE] Allergy (Unknown, Verified 11/11/23 07:42) Unknown soap [Betadine] Allergy (Unknown, Verified 11/11/23 07:42) Unknown codeine [Codeine] Adverse Reaction (Unknown, Verified 11/11/23 07:42) wakes up combative monosodium glutamate Adverse Reaction (Unknown, Verified 11/11/23 07:42) Headache morphine Adverse Reaction (Unknown, Verified 11/11/23 07:42) wakes up combative meperidine [From Demerol] Adverse Reaction (Verified 11/11/23 07:42) Hallucinations dexon Allergy (Unknown, Uncoded 11/11/23 07:42) Unknown GLUE IN SHOES Allergy (Unknown, Uncoded 11/11/23 07:42) UNKNOWN PLASTIC TAPE Allergy (Unknown, Uncoded 11/11/23 07:42) skin problems POLYGLACTIC ACID(DEXON & VICRYL) Allergy (Unknown, Uncoded 11/11/23 07:42) UNKNOWN vicryl Allergy (Unknown, Uncoded 11/11/23 07:42) Unknown Medication List - Last Reconciled 11/11/23 by Percy Raushc MD aspirin (Adult Aspirin Regimen) 81 mg PO DAILY atorvastatin 20 mg PO QPM sbzweteujk-mtktqsvktpjuw-moca 50-325-40 mg tabs PO DAILY PRN cholecalciferol (vitamin D3) 25 mcg PO DAILY clonazepam 0.5 mg PO DAILY PRN diltiazem HCl CD 180 mg PO DAILY epinephrine (EpiPen) 0.3 mg IM Q10M PRN finasteride 5 mg PO DAILY fluoride (sodium) 1.1% PO fluticasone propionate 50 mcg/actuation (Flonase Allergy Relief) 1 spray intranasal DAILY ipratropium-albuterol 20-100 mcg/actuation (Combivent Respimat) 1 puff inhalation Q6H metformin 1,500 mg PO DAILY metformin ER 750 mg PO BID metoprolol succinate ER 25 mg PO BID 30 days mometasone (Asmanex Twisthaler) 2 inhalations inhalation BID montelukast 10 mg PO DAILY omeprazole 40 mg PO DAILY saw palmetto 320 mg PO DAILY semaglutide (weight loss) 0.5 mg subcut QWEEK tadalafil (Cialis) 5 mg PO DAILY 90 days terazosin 10 mg PO DAILY tolterodine ER 4 mg PO DAILY 30 days [facility] Medical History Elevated cholesterol History of GI diverticular bleed BPH (benign prostatic hyperplasia) History of blood transfusion GERD (gastroesophageal reflux disease) Type 2 diabetes mellitus Depression with anxiety PTSD (post-traumatic stress disorder) Migraine COPD, mild Asthma HTN (hypertension) Obstructive sleep apnea Enlarged RV (right ventricle) Mitral regurgitation Surgical History History of excision of lesion (06/25/22) History of arthroscopy of right knee History of left inguinal hernia repair History of repair of right rotator cuff History of repair of left rotator cuff History of mitral valve replacement S/P MVR (mitral valve replacement) Hx of cardiac cath Family History Father Rheumatic fever Mother No problems noted. Sister Hx of aortic valve repair Brother Mitral valve replaced Social History (Updated 11/11/23 @ 07:43 by IAIN Hinson) Patient Tobacco Use Status: Former Tobacco user Advance Directives Date on File: 10/29/21 Current occupational status: retired Current occupation: ambidextrous, 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 Physical Exam Vital Signs: BMI result Body Mass Index 31.7 Const Other: Well-nourished well-developed very friendly male awake alert and oriented x3 in no acute distress Extrem Other: Bilateral upper extremity examination shows good capillary refill, no skin lesions noted, normal sensation light touch Left shoulder examination shows full range of motion when compared to his right shoulder, minimal discomfort with range of motion, no instability Assessment & Plan Assessment & Plan (1) Left shoulder pain: Code(s): M25.512 - Pain in left shoulder Category: Medical Plan Mr. Jama continues to do well after undergoing revision left shoulder rotator cuff repair surgery on 02/07/2023. Will continue with his activity modification s. The do's and don'ts of lifting were discussed at length with the patient. The patient will follow up with me on an as-needed basis should his symptoms worsen in any way. Feel free to call me at any time should questions regarding his orthopedic management arise. I spent 20 minutes in reviewing the patient's records and imaging studies, seeing the patient and documenting in the medical record. Coding Level of Care Code Est Pt Level 3 (29750) Diagnoses Left shoulder pain M25.512
[2023-11-11 07:42] VITALS: BMI 31.7
== END 2023-11-11 07:54 | disposition home or self-care (01) ==
PROVIDERS: PCP Internal Medicine; Visit Provider Orthopaedic Surgery
DX: M25.512 Pain in left shoulder (principal)
CPT/HCPCS: 99213

== ENCOUNTER → 2023-11-11 07:34 | Outpatient (BNVA) | payer MEDICARE, OTHER, SELFPAY | PROVIDERS: PCP Internal Medicine; Visit Provider Orthopaedic Surgery | DX: R35.1 Nocturia (principal); N32.81 Overactive bladder | CPT/HCPCS: 99212 ==

== ENCOUNTER 2023-11-11 10:45 | Outpatient (AMB) | payer MEDICARE, OTHER, SELFPAY ==
--- NOTE | 2023-11-11 10:48 | MHC.OFFVIS ---
Intake Visit Reasons: medication review/tolterodine Intake Note: Patient is Present for Telephone Follow Up Med Review Urology Med: Tolterodine, Tadalafil, Finasteride,Terazosin Antibiotic Allergy: Penicillin Blood Thinner: Aspirin Patient is not happy with tolterodine. Patient states that the medication as no to little effect for him. Patient states that Tadalafil has mild effect. Cartridge Filler Required: No Allergies DUSTIN Inhibitors [Dustin Inhibitors] Allergy (Severe, Verified 11/11/23 10:51) Anaphylaxis aspirin Allergy (Severe, Verified 11/11/23 10:51) Anaphylaxis NSAIDS (Non-Steroidal Anti-Inflamma [NSAIDS (NON-STEROIDAL ANTI-INFLAMMA] Allergy (Severe, Verified 11/11/23 10:51) Anaphylaxis thimerosal [Thimerosal] Allergy (Severe, Verified 11/11/23 10:51) Angioedema tamsulosin Allergy (Mild, Verified 11/11/23 10:51) tacycardia aspartame [ASPARTAME] Allergy (Unknown, Verified 11/11/23 10:51) Unknown Cephalosporins [CEPHALOSPORINS] Allergy (Unknown, Verified 11/11/23 10:51) Rash fluoxetine [From PROZAC] Allergy (Unknown, Verified 11/11/23 10:51) REQUIRED HOSPITALIZATION hexachlorophene [From PHISOHEX] Allergy (Unknown, Verified 11/11/23 10:51) Unknown melon Allergy (Unknown, Verified 11/11/23 10:51) Unknown penicillin V Allergy (Unknown, Verified 11/11/23 10:51) Rash Penicillins Allergy (Unknown, Verified 11/11/23 10:51) Rash perfume Allergy (Unknown, Verified 11/11/23 10:51) Unknown pineapple [PINEAPPLE] Allergy (Unknown, Verified 11/11/23 10:51) Angioedema povidone-iodine [From BETADINE] Allergy (Unknown, Verified 11/11/23 10:51) Unknown soap [Betadine] Allergy (Unknown, Verified 11/11/23 10:51) Unknown codeine [Codeine] Adverse Reaction (Unknown, Verified 11/11/23 10:51) wakes up combative monosodium glutamate Adverse Reaction (Unknown, Verified 11/11/23 10:51) Headache morphine Adverse Reaction (Unknown, Verified 11/11/23 10:51) wakes up combative meperidine [From Demerol] Adverse Reaction (Verified 11/11/23 10:51) Hallucinations dexon Allergy (Unknown, Uncoded 11/11/23 10:51) Unknown GLUE IN SHOES Allergy (Unknown, Uncoded 11/11/23 10:51) UNKNOWN PLASTIC TAPE Allergy (Unknown, Uncoded 11/11/23 10:51) skin problems POLYGLACTIC ACID(DEXON & VICRYL) Allergy (Unknown, Uncoded 11/11/23 10:51) UNKNOWN vicryl Allergy (Unknown, Uncoded 11/11/23 10:51) Unknown Medication List - Last Reconciled 11/11/23 by Pierre Rajput MD aspirin (Adult Aspirin Regimen) 81 mg PO DAILY atorvastatin 20 mg PO QPM [id number]-ytdgpoyhozjcf-cdma 50-325-40 mg tabs PO DAILY PRN cholecalciferol (vitamin D3) 25 mcg PO DAILY clonazepam 0.5 mg PO DAILY PRN diltiazem HCl CD 180 mg PO DAILY epinephrine (EpiPen) 0.3 mg IM Q10M PRN finasteride 5 mg PO DAILY fluoride (sodium) 1.1% PO fluticasone propionate 50 mcg/actuation (Flonase Allergy Relief) 1 spray intranasal DAILY ipratropium-albuterol 20-100 mcg/actuation (Combivent Respimat) 1 puff inhalation Q6H metformin 1,500 mg PO DAILY metformin ER 750 mg PO BID metoprolol succinate ER 25 mg PO BID 30 days mometasone (Asmanex Twisthaler) 2 inhalations inhalation BID montelukast 10 mg PO DAILY omeprazole 40 mg PO DAILY saw palmetto 320 mg PO DAILY semaglutide (weight loss) 0.5 mg subcut QWEEK tadalafil (Cialis) 5 mg PO DAILY 90 days terazosin 10 mg PO DAILY tolterodine ER 4 mg PO DAILY 30 days vibegron (Gemtesa) 75 mg PO DAILY 90 days HPI Comments Details: Jared is a pleasant male. He is a patient of Dr. Atkinson. He seen for the following urologic issues - Lower urinary tract symptoms - detrusor hyperactivity and impaired contractility Telemedicine Evaluation 15 min Consultation [employer] Chidi Video Tolterodine did not work Oxybutynin did work - had associated memory fog Has been on combination therapy with finasteride, tadalafil, and terazosin Trial Gemtessa - apparently covered Lower urinary tract symptoms Progressive weakness of stream, nocturia, incomplete bladder emptying Background diabetes for greater than 10 years Current therapy with finasteride and terazosin Prior therapy with alpha blockers - did not tolerate tamsulosin secondary to increased heart rate 11/08 Cystoscopy Bladder neck open Trabeculation grade 3 - small diverticulum [facility] Medical History Elevated cholesterol History of GI diverticular bleed BPH (benign prostatic hyperplasia) History of blood transfusion GERD (gastroesophageal reflux disease) Type 2 diabetes mellitus Depression with anxiety PTSD (post-traumatic stress disorder) Migraine COPD, mild Asthma HTN (hypertension) Obstructive sleep apnea Enlarged RV (right ventricle) Mitral regurgitation Surgical History History of excision of lesion (06/25/22) History of arthroscopy of right knee History of left inguinal hernia repair History of repair of right rotator cuff History of repair of left rotator cuff History of mitral valve replacement S/P MVR (mitral valve replacement) Hx of cardiac cath Family History Father Rheumatic fever Mother No problems noted. 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 Review of Systems Const All systems reviewed & are unremarkable except as noted in HPI and below Reports no additional complaints Resp Reports no additional complaints GI Reports no additional complaints Reports as per HPI Musc Reports no additional complaints Physical Exam Telemedicine evaluation Appropriate responses Regular breathing rate and rhythm HEENT Head: Yes normal to inspection Ears: hearing grossly normal bilaterally Eyes General: appearance normal, both eyes and all related structures Neck Neck: Yes normal visual inspection Chest Chest palpation & inspection: normal inspection of the chest Resp Effort & Inspection: normal respiratory effort and able to speak in complete sentences Telehealth Telehealth Telehealth Platform: [facility] Location of provider rendering services: practice address Location of patient: address on file Patient Identification confirmed using: Name, : Yes Telehealth method: video Patient verbally consented to treatment: Yes Patient verbally consented to billing insurance company: Yes Patient informed of any privacy concerns related to visit: Yes Minutes spent on Phone/Video with Pt.: 15 Assessment & Plan Assessment & Plan (1) Nocturia more than twice per night: Code(s): R35.1 - Nocturia Category: Medical (2) Overactive bladder: Code(s): N32.81 - Overactive bladder Category: Medical Plan Trial of beta antagonist Three-month follow-up Medications: New vibegron (Gemtesa) 75 mg PO DAILY 90 days 90 tabs 0RF N32.81 - Overactive bladder Patient Instructions: Imaging studies, laboratory and physical exam results were discussed and reviewed in detail. No major barriers to patient understanding were identified. An opportunity to ask questions regarding the treatment plan was provided. All questions were answered. The patient expressed understanding and agreement with the above treatment plan. The patient is aware they should contact our office by phone for worsening of their current condition or the appearance of new urologic symptoms. Compliance is encouraged with any medications and followup testing that is ordered. It is a privilege to participate in the urologic care of your patient. If you have any questions or concerns regarding treatment for the above conditions, or other urologic issues, please do not hesitate to contact me. The office telephone contact is [phone]. This note is constructed using voice recognition software. While every effort has been made to ensure accuracy sales appointment coordinator errors may have been included. Yours sincerely, Dr Pierre Rajput MD, RE[facility] - Urology Providers of Expert, Compassionate Care for the Genitourinary System Coding Level of Care Code Tele Est Pt Level 4 (58648) Diagnoses Nocturia more than twice per night R35.1 Overactive bladder N32.81
== END 2023-11-11 11:52 | disposition home or self-care (01) ==
LOC: HO.HUSH 10:45
PROVIDERS: PCP Internal Medicine; Visit Provider Urology
DX: R35.1 Nocturia (principal); N32.81 Overactive bladder
CPT/HCPCS: 99214

== ENCOUNTER 2023-12-30 16:10 | Outpatient (REF) | payer MEDICARE, OTHER, SELFPAY ==
[2023-12-30 16:35] LABS: MANUAL DIFF FLAG NO
[2023-12-30 16:40] LABS: Basophils Absolute Auto 0.1 X10*3/uL (0.0-0.2); Basophils Percent Auto 0.9 % (0-2); Eosinophils Absolute Auto 0.1 X10*3/uL (0.0-0.4); Eosinophils Percent Auto 1.7 % (0-4); Hematocrit 38.5 % (42.0-52.0); Hemoglobin 13.4 g/dl (14.0-18.0); Imm Gran Abs Auto 0.02 X10*3/uL (0.00-0.03); Imm Gran Pct Auto 0.3 % (0.0-0.4); Lymphocytes Percent Auto 15.7 % (20-40); Mean Corpuscular HGB Conc 34.8 g/dl (31.0-36.0); Mean Corpuscular Hemoglobin 31.2 pg (27.0-33.0); Mean Corpuscular Volume 89.5 fL (80.0-98.0); Mean Platelet Volume 10.3 fL (9.4-12.4); Monocytes Absolute Auto 0.4 X10*3/uL (0.1-1.2); Monocytes Percent Auto 6.7 % (2-11); Neutrophils Absolute Auto 4.8 x10*3/uL (2.0-8.3); Neutrophils Percent Auto 74.7 % (45-73); Platelet Count 100 X10*3/uL (160-400); White Blood Count 6.4 X10*3/uL (4.8-10.8)
[2023-12-30 17:10] LABS: B Type Natriuretic Peptide 93 pg/mL (<100)
[2023-12-30 17:12] LABS: Alanine Aminotransferase 15 U/L (0-40); Albumin Level 3.8 g/dL (3.5-5.0); Alkaline Phosphatase 42 U/L (39-117); Anion Gap 15 (12-20); Aspartate Amino Transferase 13 U/L (5-37); Bilirubin Total 0.6 mg/dL (0.0-1.0); Blood Urea Nitrogen 15 mg/dL (9-16); Calcium 9.3 mg/dL (8.4-10.2); Carbon Dioxide 20 mmol/L (22-29); Chloride 108 mmol/L (96-108); Estimated Glomerular Filt Rate > 60; Glucose Random 157 mg/dL (60-115); Potassium 3.9 mmol/L (3.3-5.1); Sodium 139 mmol/L (135-145); Total Protein 6.6 g/dL (6.5-8.0)
[2023-12-30 17:13] LABS: Troponin-I High Sensitivity 2.7 ng/L (<3.5-35.0)
[2023-12-30 17:28] LABS: Free T4 (Free Thyroxine) 1.09 ng/dL (0.71-1.85); Thyroid Stimulating Hormone 1.46 uIU/mL (0.32-4.0)
== END 2023-12-30 16:11 | disposition home or self-care (01) ==
LOC: HO.LAB 16:10
PROVIDERS: PCP Internal Medicine; Visit Provider Internal Medicine
DX: I48.91 Unspecified atrial fibrillation (principal); R60.9 Edema, unspecified; Z98.890 Other specified postprocedural states
CPT/HCPCS: 36415; 80053; 83880; 84439; 84443; 84484; 85025

== ENCOUNTER → 2023-12-31 12:39 | Outpatient (REF) | payer MEDICARE, OTHER, SELFPAY ==
--- NOTE | 2023-12-31 12:49 | CA_ITS ---
Transthoracic Echocardiogram Patient (Last, First, Middle): Jared Jama, Gender: Male Date of : 1955 Age: 68 Procedure Date: 12/31/2023 Procedure Type: Transthoracic Echocardiogram Location: OP Height: 175.26 cm Weight: 97.52 kg BSA: 2.13 m2 Heart Rate: bpm BP: 106 / 60 mmHg Co Founder And Chief Strategy Officer: DOMONIQUE Referring MD: Jamar Atkinson MD Symptoms: I48.3 TYPICAL ATRIAL FLUTTER R60.0 EDEMA Z95.2 S/P PROSTHETIC HEART VALVE Study Quality: Fair ECG Rhythm: Atrial flutter Conclusions: - The left ventricular systolic function is normal. The visually estimated ejection fraction is between 55-60%. - A bioprosthetic mitral valve is present. Mean gradient elevated at 12 mm Hg (HR 55/Min). Increase in gradient could be related to atrial flutter. Less likely valvular dysfunction. - Moderate pulmonary hypertension is present. Findings Left Ventricle Normal left ventricular cavity size. There is mildly increased left ventricular wall thickness. The left ventricular systolic function is normal. The visually estimated ejection fraction is between 55-60%. There is no evidence of regional wall motion abnormalities. Diastolic function is indeterminate on the basis of available data. Right Ventricle Mildly increased right ventricular cavity size. There is normal right ventricular systolic function. Atria The left atrium is severely dilated. The right atrium is mildly dilated. Aortic Valve There is a normal trileaflet aortic valve. There is mild calcification of the aortic valve. There is no aortic valve stenosis. There is no aortic valve regurgitation. Mitral Valve A bioprosthetic mitral valve is present. There is trace mitral valve regurgitation. Mean gradient elevated at 12 mm Hg (HR 55/Min). Increase in gradient could be related to atrial flutter. Less likely valvular dysfunction. Pulmonic Valve The pulmonic valve is likely normal. Tricuspid Valve There is mild tricuspid valve regurgitation. The right ventricular systolic pressure is 63 mmHg. Moderate pulmonary hypertension is present. Great Vessels The asc aorta is normal in size. Venous The inferior vena cava is dilated and collapses less than 50% with inspiration. Pericardium/Pleural There is no evidence of pericardial effusion. Prior Study Comparison Changes noted compared to prior study dated: 01/17/2023. Rhythm change. Increase in mitral valve gradients. Pulmonary Hypertension. Measurements 2D Linear Measurements IVSd: 1.13 0.6-0.9/0.6-1.0 cm LVIDd: 5.31 3.9-5.3/4.2-5.9 cm LVIDd Index: 2.49 2.4-3.2/2.2-3.1 cm/m2 LVIDs: 3.88 2.0-3.6 cm LVPWd: 1.11 0.7-1.1 cm LA Diam: 4.80 2.7-3.8/3.0-4.0 cm LAIDs Index: 2.25 1.5-2.3 cm/m2 LV Mass: 291.87 67-162/88-224 g LV Mass Index: 137.03 43-95/49-115 g/m2 LVOT Diam: 2.30 3.0+(-)1.3 cm 2D Systolic Function EF 4C: 65.90 >55% EF 2C: 60.80 >55% EF BiP: 64.70 >55% Mitral Valve MV VTI: 0.95 MV Pk Jose: 2.36 MV Mn Jose: 1.45 MV Pk Grad: 22.00 MV Mn Grad: 10.00 MV Pk E: 2.02 MV PK A: 1.58 MV Decel Time: 351.00 E/A: 1.30 E'Medial: 4.40 E/E' Med: 45.90 PHT: 103.00 MVA PHT: 2.14 MVA Continuity: 0.89 Decel Oliver: 5.76 Aortic Valve AoV Pk Jose: 1.42 AoV Mn Jose: 0.99 AoV VTI: 0.35 AoV Pk Grad: 8.00 Aov Mn Grad: 4.00 ANDRES Cont.VTI: 2.44 LVOT LVOT Pk Jose: 0.78 LVOT Mn Jose: 0.57 LVOT VTI: 0.20 LVOT Pk Grad: 2.00 LVOT Mn Grad: 1.00 LVOT Diam: 2.30 LVOT Area: 4.15 Diastolic Function MV Pk E: 2.02 MV Pk A: 1.58 E/A: 1.30 E'Medial: 4.40 E/E' Med: 45.90 Right Ventricle TAPSE (mm): 19.40 TVS' Jose: 11.50 Tricuspid Valve TR Pk Jose: 3.45 TR Pk Grad: 48.00 RA Press: 15.00 RVSP: 63.00 Great Vessels Aorta Sinus of Valsalva: 4.07 2.0-3.[address] Ridge: 2.84 1.7-3.4 cm Ao Asc: 3.70 2.1-3.4 cm Updated in Other Vendor System with Status of Final Ok Montero MD electronically signed on 01/02/2024 9:59:09 AM with status of Final
== END ==
LOC: HO.CARD 12:39
PROVIDERS: PCP Internal Medicine; Visit Provider Internal Medicine
DX: I48.3 Typical atrial flutter (principal); R60.0 Localized edema; Z95.2 Presence of prosthetic heart valve
CPT/HCPCS: 93306

== ENCOUNTER → 2023-12-31 12:49 | Outpatient (BNV) | payer MEDICARE, OTHER, SELFPAY | PROVIDERS: PCP Internal Medicine; Visit Provider Internal Medicine | DX: I36.1 Nonrheumatic tricuspid (valve) insufficiency (principal); I48.3 Typical atrial flutter; Z95.3 Presence of xenogenic heart valve; I27.20 Pulmonary hypertension, unspecified | CPT/HCPCS: 93306 ==

== ENCOUNTER 2024-01-05 15:05 | Outpatient (AMB) | payer MEDICARE, OTHER, SELFPAY ==
[2024-01-05 15:19] VITALS: BP 130/62; PULSE 52; BMI 31.3
--- NOTE | 2024-01-05 15:19 | A.OFFVIS_ITS ---
Vital Signs 01/05/24 15:19 Height 5 ft 9 in Weight 211 lb 10.3 oz BMI 31.3 BP 130/62 Blood Pressure Location Lt brachial Position Sitting Pulse 52 Pulse Source Monitor Intake Visit Reasons: abn ekg- Dr Demetrio boateng appt [place] [facility] Required: No Accompanied by: Self / Same As Patient Allergies DUSTIN Inhibitors [Dustin Inhibitors] Allergy (Severe, Verified 11/11/23 10:51) Anaphylaxis aspirin Allergy (Severe, Verified 11/11/23 10:51) Anaphylaxis NSAIDS (Non-Steroidal Anti-Inflamma [NSAIDS (NON-STEROIDAL ANTI-INFLAMMA] Allergy (Severe, Verified 11/11/23 10:51) Anaphylaxis thimerosal [Thimerosal] Allergy (Severe, Verified 11/11/23 10:51) Angioedema tamsulosin Allergy (Mild, Verified 11/11/23 10:51) tacycardia aspartame [ASPARTAME] Allergy (Unknown, Verified 11/11/23 10:51) Unknown Cephalosporins [CEPHALOSPORINS] Allergy (Unknown, Verified 11/11/23 10:51) Rash fluoxetine [From PROZAC] Allergy (Unknown, Verified 11/11/23 10:51) REQUIRED HOSPITALIZATION hexachlorophene [From PHISOHEX] Allergy (Unknown, Verified 11/11/23 10:51) Unknown melon Allergy (Unknown, Verified 11/11/23 10:51) Unknown penicillin V Allergy (Unknown, Verified 11/11/23 10:51) Rash Penicillins Allergy (Unknown, Verified 11/11/23 10:51) Rash perfume Allergy (Unknown, Verified 11/11/23 10:51) Unknown pineapple [PINEAPPLE] Allergy (Unknown, Verified 11/11/23 10:51) Angioedema povidone-iodine [From BETADINE] Allergy (Unknown, Verified 11/11/23 10:51) Unknown soap [Betadine] Allergy (Unknown, Verified 11/11/23 10:51) Unknown codeine [Codeine] Adverse Reaction (Unknown, Verified 11/11/23 10:51) wakes up combative monosodium glutamate Adverse Reaction (Unknown, Verified 11/11/23 10:51) Headache morphine Adverse Reaction (Unknown, Verified 11/11/23 10:51) wakes up combative meperidine [From Demerol] Adverse Reaction (Verified 11/11/23 10:51) Hallucinations dexon Allergy (Unknown, Uncoded 11/11/23 10:51) Unknown GLUE IN SHOES Allergy (Unknown, Uncoded 11/11/23 10:51) UNKNOWN PLASTIC TAPE Allergy (Unknown, Uncoded 11/11/23 10:51) skin problems POLYGLACTIC ACID(DEXON & VICRYL) Allergy (Unknown, Uncoded 11/11/23 10:51) UNKNOWN vicryl Allergy (Unknown, Uncoded 11/11/23 10:51) Unknown Medication List - Last Reconciled 01/05/24 by James Fernando MD apixaban (Eliquis) 5 mg PO BID aspirin (Adult Aspirin Regimen) 81 mg PO DAILY atorvastatin 20 mg PO QPM [id number]-[id number] 50-325-40 mg tabs PO DAILY PRN cholecalciferol (vitamin D3) 25 mcg PO DAILY clonazepam 0.5 mg PO DAILY PRN diltiazem HCl CD 180 mg PO DAILY epinephrine (EpiPen) 0.3 mg IM Q10M PRN finasteride 5 mg PO DAILY fluoride (sodium) 1.1% PO fluticasone propionate 50 mcg/actuation (Flonase Allergy Relief) 1 spray intranasal DAILY ipratropium-albuterol 20-100 mcg/actuation (Combivent Respimat) 1 puff inhalation Q6H mecobalamin (vitamin B12) 1,000 mcg PO DAILY metformin ER 750 mg PO BID metoprolol succinate ER 12.5 mg PO BID miconazole nitrate 2% (Antifungal (miconazole)) topical mometasone (Asmanex Twisthaler) 2 inhalations inhalation BID montelukast 10 mg PO DAILY omeprazole 40 mg PO DAILY saw palmetto 320 mg PO DAILY semaglutide (weight loss) 1 mg subcut QWEEK tadalafil (Cialis) 5 mg PO DAILY 90 days terazosin 10 mg PO DAILY HPI Comments Details: Edwar comes for follow-up after recently detected atrial flutter on echocard iogram. He subsequently had EKG done your office and was to be in atrial flutter with slow ventricular response. His metoprolol was reduced. Comes for follow-up with his . Says he has been excessively fatigued with exertional shortness of breath in the recent past few weeks. He also had symptoms suggestive of orthopnea and had significant leg edema although says that over the last week or so his shortness of breath and orthopnea have improved. His leg edema is improved as well. He is currently not on any diuretic regimen. His echocardiogram recently had shown normal LV ejection fraction 55-60% with increased gradient across the bioprosthetic mitral valve at 12 mm Hg which could be related to atrial flutter with moderate pulmonary hypertension along with severe left atrial enlargement. He denies any palpitations. Denies any lightheadedness, syncope. Started on Eliquis therapy last week by you and has taken it for 6 days, however he as fraction in his tooth and is considering having extraction done in the near future. Is very bothered by the symptoms and is disappointed with the new findings of atrial flutter/fibrillation. [facility] Medical History (Updated 01/05/24 @ 17:21 by James Fernando MD) Atrial flutter Elevated cholesterol History of GI diverticular bleed BPH (benign prostatic hyperplasia) History of blood transfusion GERD (gastroesophageal reflux disease) Type 2 diabetes mellitus Depression with anxiety PTSD (post-traumatic stress disorder) Migraine COPD, mild Asthma HTN (hypertension) Obstructive sleep apnea Enlarged RV (right ventricle) Mitral regurgitation Surgical History History of excision of lesion (06/25/22) History of arthroscopy of right knee History of left inguinal hernia repair History of repair of right rotator cuff History of repair of left rotator cuff History of mitral valve replacement S/P MVR (mitral valve replacement) Hx of cardiac cath Family History Father Rheumatic fever Mother No problems noted. 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 Review of Systems Const Denies chills, Denies fatigue, Denies fever(s), Denies frequent falls, Denies weakness, Denies weight gain and Denies weight loss ENT Denies dizziness Card Denies chest pain, Denies leg edema, Denies lightheadedness, Denies palpitations, Denies dyspnea and Denies dyspnea on exertion Resp Denies cough, Denies dyspnea and Denies dyspnea on exertion GI Denies hematochezia Musc Denies abnormal gait, Denies muscle weakness, Denies numbness, Denies radiating pain into limb and Denies tingling Neuro Denies abnormal gait, Denies dizziness, Denies frequent falls, Denies numbness, Denies tingling and Denies weakness Endo Denies fatigue and Denies palpitations Physical Exam Vital Signs: Last Vital Signs Pulse 52 01/05/24 15:19 BP 130/62 01/05/24 15:19 BMI result Body Mass Index 31.3 Const General: cooperative, comfortable, alert and awake Nutritional Appearance: obese Orientation/consciousness: patient oriented x3 Neck Neck: Yes trachea midline, Yes supple and Yes no JVD (Positive AJR) Resp Effort & Inspection: normal respiratory effort Auscultation: clear to auscultation bilaterally Cardio Rate: bradycardic Rhythm: abnormal rhythm irregularly irregular Heart sounds: S1 normal heart sound present, S2 normal heart sound present, no click, no gallops, no murmurs and no rubs GI Inspection: Yes obesity Auscultation: normal bowel sounds Skin General skin exam: no rashes or lesions noted Neuro General: patient oriented x3 and no focal motor deficits Extrem General: Yes no clubbing, cyanosis or edema Psych Appearance: grossly normal Office Procedures EKG Details: EKG shows atrial flutter with slow ventricular response with right bundle and left anterior fascicular block [id number], Complete Assessment & Plan Assessment & Plan (1) Atrial flutter: Code(s): I48.92 - Unspecified atrial flutter Category: Medical Plan: New onset atrial flutter with significant symptoms related to loss of AV synchrony with slow heart rate. Lot of his symptoms are suggestive of loss of atrial kick. He has significant left atrial enlargement. This was detected last week and he was started on oral anticoagulation promptly. I would discontinue his aspirin therapy to reduce bleeding risk. Given slow ventricular response will discontinue metoprolol therapy. For now continue Cardizem therapy. I think he will benefit from rhythm control approach. Has no overt signs of heart failure but is having some symptoms suggestive of the same. Clinically does not appear to be fluid overloaded. Will suggest to watch for signs and symptoms of heart failure. Would avoid diuretic therapy at this point in time. However he will benefit from rhythm control approach. Given his significant left atrial enlargement will need antiarrhythmic drug support. Once he is 3 weeks into oral anticoagulation start him on amiodarone 400 mg b.i.d. at which point in time will discontinue Cardizem therapy. Once loading is completed will follow him up for synchronized cardioversion. We discussed the procedure of synchronized cardioversion including risks, benefits, alternatives. Further treatment based on response to rhythm control clinically. (2) S/P MVR (mitral valve replacement): Comment: 33 mm bioprosthetic Sarika Edward mitral valve replacement with Chord reconstruction, April 2017. Minimal coronary artery disease prior to surgery. Code(s): Z95.2 - Presence of prosthetic heart valve Category: Surgical Plan: Status post bioprosthetic mitral valve replacement with increased gradient suggestive of potential mitral stenosis/prosthetic valve function. Will follow- up limited echocardiogram once he is maintaining sinus rhythm to assess for improvement in gradient to baseline status. SBE prophylaxis as per ACC/[place] guidelines. Continue oral anticoagulation therapy with Eliquis. Will follow up in the clinic after cardioversion in 8 weeks time. Thank you for allowing me to partake in his care Coding Level of Care Code Est Pt Level 4 (53047) Diagnoses Atrial flutter I48.92 S/P MVR (mitral valve replacement) Z95.2 CPT Codes EKG - CPT: 83113-[id number], Complete ([id number])
== END 2024-01-05 16:10 | disposition home or self-care (01) ==
PROVIDERS: PCP Internal Medicine; Visit Provider Internal Medicine Cardiovascular Disease
DX: I48.92 Unspecified atrial flutter (principal); Z95.2 Presence of prosthetic heart valve
CPT/HCPCS: 93010; 99214

== ENCOUNTER → 2024-01-05 15:05 | Outpatient (BNVA) | payer MEDICARE, OTHER, SELFPAY | PROVIDERS: PCP Internal Medicine; Visit Provider Internal Medicine Cardiovascular Disease | DX: I48.92 Unspecified atrial flutter (principal); I27.20 Pulmonary hypertension, unspecified; Z95.2 Presence of prosthetic heart valve; Z79.01 Long term (current) use of anticoagulants | CPT/HCPCS: 93005; 99212 ==

== ENCOUNTER 2024-02-01 12:06 | Inpatient (IN) | payer OTHER, MEDICARE, SELFPAY ==
[2024-02-01] VITALS (7 sets, daily range): BP systolic 142–177; BP diastolic 77–101; PULSE 43–103; RESP 14–24; TEMP 36.5–37; O2SAT 91–97; BMI 31.7
--- NOTE | ~2024-02-01 | CT_ITS ---
EXAMINATION: CT ANGIOGRAM CHEST CLINICAL INFORMATION: Hemoptysis. Nodule. Question pneumonia. Question PE. COMPARISON: None available. TECHNIQUE: Multiple axial images were obtained through the chest after the administration of 65 mL of Omnipaque 350 intravenous contrast. Extensive vascular post-processing including two-dimensional and three-dimensional reformatted images were created and reviewed on an independent workstation. This CT examination was performed using dose optimization techniques as appropriate, variously including the following: *Automated exposure control *Adjustment of mA and/or kV according to patient size (this includes techniques or standardized protocols for targeted exams where dose is matched to indication/reason for exam; i.e. extremities or head) *Use of iterative reconstruction technique DLP: 287 mGy-cm FINDINGS: PULMONARY ARTERIES: No evidence of pulmonary embolism. LUNGS/PLEURA: Limited by low lung volumes, motion, and technique. Bilateral interstitial prominence. Bilateral, predominantly perihilar groundglass with lung parenchymal density. Small to moderate bilateral pleural effusions with associated atelectasis. No pneumothorax. No evidence of pleural mass or thickening. MEDIASTINUM: Mildly enlarged cardiac silhouette. Status post valve replacement. No pericardial effusion. Uncoiled aorta consistent with hypertension. CORONARY ARTERY CALCIFICATION: Severe coronary arterial calcification and/or stent placement at the LAD. CHEST WALL/AXILLA: No lymphadenopathy by size criteria. Mild bilateral gynecomastia. UPPER ABDOMEN: Colonic diverticulosis without evidence of upper abdominal diverticulitis. OSSEOUS STRUCTURES: Mild degenerative change spine. Status post median sternotomy. CT/CT angio chest PE protocol IMPRESSION: No evidence of pulmonary embolism. Findings suggesting pulmonary edema with ttasr-xn-fyejhpif bilateral pleural effusions. Additional findings, as above. Electronically signed by: Mart Parikh MD 02/01/2024 05:31 PM EDT
--- NOTE | ~2024-02-01 | XR_ITS ---
EXAMINATION: XR CHEST CLINICAL INFORMATION: Productive cough COMPARISON: Chest radiograph 05/27/2022 TECHNIQUE: 2 views of the chest FINDINGS: Lines and tubes: Median sternotomy wires and mediastinal surgical clips. Cardiac valve prosthesis. Coronary artery stent. Surgical anchors in the left humeral head. New small bilateral pleural effusions with streaky bibasilar opacities which may reflect atelectasis given effusions with superimposed aspiration or infection. Bronchial wall thickening which can be seen with a small airways process such as asthma or atypical/viral infection. There is a 3.9 cm nodular opacity in medial right lung base. No pneumothorax. Ectatic thoracic aorta, unchanged. XR/XR chest 2V IMPRESSION: * There is a 3.9 cm nodular opacity in medial right lung base, unclear if this could correspond to a prominent hilar structure such as a dilated pulmonary artery versus an infrahilar lesion and recommend correlation with contrast-enhanced CT chest. * New small bilateral pleural effusions with streaky bibasilar opacities which may reflect atelectasis given effusions with superimposed aspiration or infection. * Bronchial wall thickening which can be seen with a small airways process such as asthma or atypical/viral infection. Electronically signed by: Morena Chi MD 02/01/2024 02:08 PM EDT
--- NOTE | 2024-02-01 12:46 | ED_ITS ---
HPI - URI/Sore Throat General Chief Complaint: Upper Respiratory Symptoms Stated Complaint: sore throat-redness Time Seen by Provider: 02/01/24 13:45 Source: patient Mode of arrival: ambulatory Limitations: no limitations History of Present Illness ED Provider: Rubin OLIVIER HPI Narrative: 68-year-old male history of atrial flutter, diabetes, mitral valve replacement, hypertension, COPD presents to ED for coughing, sore throat, and chest congestion. Patient denies any fever or chills. Patient denies any chest pain. Patient states scheduled for cardioversion this Friday. Patient states no relieve with nebulizers Patient denies any recent long travel or recent surgery. Related Data Home Medications ?Medication ?Instructions ?Recorded ?Confirmed cholecalciferol (vitamin D3) 25 25 mcg PO DAILY 11/08/20 01/05/24 mcg (1,000 unit) capsule clonazepam 0.5 mg tablet 0.5 mg PO DAILY PRN Anxiety 11/08/20 01/05/24 epinephrine 0.3 mg/0.3 mL 0.3 mg IM Q10M PRN Allergic 11/08/20 01/05/24 injection, auto-injector (EpiPen) Reaction finasteride 5 mg tablet 5 mg PO DAILY 11/08/20 02/01/24 ipratropium 20 mcg-albuterol 100 1 puff inhalation Q6H 11/08/20 01/05/24 mcg/actuation mist for inhalation (Combivent Respimat) mometasone 220 mcg/actuation(30 2 inh inhalation BID 11/08/20 01/05/24 doses) breath activated powder inhaler (Asmanex Twisthaler) saw palmetto 160 mg capsule 320 mg PO DAILY 11/08/20 01/05/24 fluticasone propionate 50 1 spray intranasal DAILY 02/13/21 01/05/24 mcg/actuation nasal spray,suspension (Flonase Allergy Relief) montelukast 10 mg tablet 10 mg PO DAILY 02/13/21 02/01/24 awufhagyzs-uxanrniyxngpc-jxowlaib tab PO DAILY PRN Migraine Headache 04/19/22 01/05/24 50 mg-325 mg-40 mg tablet fluoride (sodium) 1.1 % dental PO 04/19/22 01/05/24 paste atorvastatin 20 mg tablet 20 mg PO QPM 12/25/22 01/05/24 terazosin 10 mg capsule 10 mg PO DAILY 12/25/22 01/05/24 omeprazole 20 mg capsule,delayed 40 mg PO DAILY 01/30/23 02/01/24 release metformin 750 mg tablet,extended 750 mg PO BID 07/18/23 01/05/24 release 24 hr apixaban 5 mg tablet (Eliquis) 5 mg PO BID 01/05/24 02/01/24 mecobalamin (vitamin B12) 1,000 1,000 mcg PO DAILY 01/05/24 01/05/24 mcg lozenges miconazole nitrate 2 % topical topical 01/05/24 01/05/24 powder (Antifungal (miconazole)) semaglutide (weight loss) 0.5 1 mg subcut QWEEK 01/05/24 01/05/24 mg/0.5 mL subcutaneous pen injector Previous Rx's ?Medication ?Instructions ?Recorded tadalafil 5 mg tablet (Cialis) 5 mg PO DAILY 90 days #90 tabs 01/16/23 amiodarone 400 mg tablet 400 mg PO BID #30 tabs 01/13/24 Allergies Allergy/AdvReac Type Severity Reaction Status Date / Time DUSTIN Inhibitors Allergy Severe Anaphylaxis Verified 02/01/24 12:42 [Dustin Inhibitors] aspirin Allergy Severe Anaphylaxis Verified 02/01/24 12:42 NSAIDS (Non-Steroidal Allergy Severe Anaphylaxis Verified 02/01/24 12:42 Anti-Inflamma [NSAIDS (NON-STEROIDAL ANTI-INFLAMMA] thimerosal [Thimerosal] Allergy Severe Angioedema Verified 02/01/24 12:42 tamsulosin Allergy Mild tacycardia Verified 02/01/24 12:42 aspartame [ASPARTAME] Allergy Unknown Unknown Verified 02/01/24 12:42 Cephalosporins Allergy Unknown Rash Verified 02/01/24 12:42 [CEPHALOSPORINS] fluoxetine [From PROZAC] Allergy Unknown REQUIRED Verified 02/01/24 12:42 HOSPITALIZATION hexachlorophene Allergy Unknown Unknown Verified 02/01/24 12:42 [From PHISOHEX] melon Allergy Unknown Unknown Verified 02/01/24 12:42 penicillin V Allergy Unknown Rash Verified 02/01/24 12:42 Penicillins Allergy Unknown Rash Verified 02/01/24 12:42 perfume Allergy Unknown Unknown Verified 02/01/24 12:42 pineapple [PINEAPPLE] Allergy Unknown Angioedema Verified 02/01/24 12:42 povidone-iodine Allergy Unknown Unknown Verified 02/01/24 12:42 [From BETADINE] soap [Betadine] Allergy Unknown Unknown Verified 02/01/24 12:42 codeine [Codeine] AdvReac Unknown wakes up Verified 02/01/24 12:42 combative monosodium glutamate AdvReac Unknown Headache Verified 02/01/24 12:42 morphine AdvReac Unknown wakes up Verified 02/01/24 12:42 combative meperidine [From Demerol] AdvReac Hallucinati Verified 02/01/24 12:42 ons dexon Allergy Unknown Unknown Uncoded 11/11/23 10:51 GLUE IN SHOES Allergy Unknown UNKNOWN Uncoded 11/11/23 10:51 PLASTIC TAPE Allergy Unknown skin Uncoded 11/11/23 10:51 problems POLYGLACTIC ACID(DEXON & Allergy Unknown UNKNOWN Uncoded 11/11/23 10:51 VICRYL) vicryl Allergy Unknown Unknown Uncoded 11/11/23 10:51 Review of Systems 2 Review of Systems: Coughing, sore throat Yes all other systems are reviewed and are negative PMFSH Past Medical History Medical History Atrial flutter Elevated cholesterol History of GI diverticular bleed BPH (benign prostatic hyperplasia) History of blood transfusion GERD (gastroesophageal reflux disease) Type 2 diabetes mellitus Depression with anxiety PTSD (post-traumatic stress disorder) Migraine COPD, mild Asthma HTN (hypertension) Obstructive sleep apnea Enlarged RV (right ventricle) Mitral regurgitation Surgical History History of excision of lesion (06/25/22) History of arthroscopy of right knee History of left inguinal hernia repair History of repair of right rotator cuff History of repair of left rotator cuff History of mitral valve replacement S/P MVR (mitral valve replacement) Hx of cardiac cath Family History Family History Father Rheumatic fever Mother No problems noted. Sister Hx of aortic valve repair Brother Mitral valve replaced Social History Social History Patient Tobacco Use Status: Former Tobacco user Smoked in Last 30 Days: No Use of substances other than those prescribed or required for medical reasons: No Advance Directives: Yes Advance Directives on File: Yes Advance Directives Date on File: 10/29/21 Do you have a plan to hurt others: No Plan Nutrition Risks: No Nutritional Risk Current occupational status: retired Current occupation: ambidextrous, 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 Physical Exam 2 Vital Signs: Vital Signs: Last Vital Signs Temp 97.8 F 02/01/24 16:07 Pulse 103 H 02/01/24 19:41 Resp 16 02/01/24 19:41 BP 171/101 H 02/01/24 18:43 Pulse Ox 93 02/01/24 18:43 O2 Del Method Room Air 02/01/24 18:43 O2 Flow Rate 2 02/01/24 18:25 Oxygen Flow Rate 2 02/01/24 18:25 BMI result Body Mass Index 31.7 Const: General: cooperative, healthy appearing, comfortable, no acute distress, well developed, alert, awake and Physically active HEENT: Head: Yes normal to inspection, Yes No palpable skull fracture present, Yes normocephalic, Yes atraumatic and No abrasion Throat: Yes posterior oropharynx normal, Yes tonsils normal and Yes uvula midline Eyes: General: appearance normal, both eyes and all related structures Neck: Neck: Yes normal visual inspection, Yes full ROM, Yes no lymphadenopathy, Yes no meningeal signs, Yes trachea midline, Yes supple, No anterior neck swelling and No tender Chest: Chest palpation & inspection: normal inspection of the chest and normal palpation of entire chest wall Resp: Effort & Inspection: normal respiratory effort and able to speak in complete sentences Auscultation: clear to auscultation bilaterally Cardio: Jugular venous distension: no JVD Heart sounds: S1 normal heart sound present and S2 normal heart sound present GI: Inspection: Yes normal to inspection Palpation (GI): Soft to palpation, not firm, nontender, no guarding and not rigid : General: Yes no CVA tenderness Back/Spine/Pelvis: Back: no CVA tenderness and No back tenderness Skin: General skin exam: no rashes or lesions noted, elasticity normal and turgor normal Neuro: General: gait normal, tone normal, moves all extremities, Normal light touch and pain sensation, no meningeal signs, no focal motor deficits, CN's II- XI intact bilaterally and normal sensation to monofilament Extrem: Other: Bilateral lower extremity positive for swelling and pitting edema. Negative for calf tenderness. Patient states swelling is chronic and not new. General: Yes normal to inspection and Yes full ROM Psych: Appearance: grossly normal, well kempt and not disheveled Course Course Course Narrative: This is an RME performed by Carly Kumar PLASTICS NURSE: Additional HPI, ROS, PE not included below will be deferred to primary provider. Patient is a 68-year-old male who presents to the emergency department for evaluation. Yesterday developed a sore scratching throat, progressively worse today with pain difficulty swallowing, congestion, and a thick productive cough as of this morning. Has history of asthma/COPD overlap. Admits to a history of postnasal drip for which he is compliant with his fluticasone spray 2 sprays in the morning 2 sprays at night. He is scheduled to have a cardioversion on Friday and wanted to be cleared before then. Medications Administered Generic Name Dose Route Start Last Admin Trade Name Freq PRN Reason Stop Dose Admin Albuterol/Ipratropium 3 ml 02/01/24 20:00 02/01/24 19:41 Albuterol/Iprat 2.5/0.5mg 3 Ml Ampul.Neb INHALE 3 ml RQ4H WHILE AWAKE COLT Administration Amiodarone HCl 400 mg 02/01/24 19:00 02/01/24 21:11 Amiodarone Hcl 200 Mg Tablet PO Not Given BID COLT Apixaban 5 mg 02/01/24 19:00 02/01/24 21:11 Apixaban 5 Mg Tablet PO Not Given BID COLT Finasteride 5 mg 02/01/24 19:15 02/01/24 21:11 Finasteride 5 Mg Tablet PO Not Given BEDTIME COLT Discontinued Medications Generic Name Dose Route Start Last Admin Trade Name Freq PRN Reason Stop Dose Admin Furosemide 40 mg 02/01/24 18:09 02/01/24 18:43 Furosemide 40 Mg/4 Ml Vial IVPUSH 02/01/24 18:10 40 mg STAT STA Administration Protocol Ceftriaxone Sodium 1 gm/ 50 mls @ 100 mls/hr 02/01/24 16:05 02/01/24 18:25 Sodium Chloride IV 02/01/24 16:34 Infused ONCE ONE Infusion Doxycycline Hyclate 100 mg/ 250 mls @ 166.67 mls/hr 02/01/24 17:18 02/01/24 19:15 Sodium Chloride IV 02/01/24 18:47 Infused ONCE ONE Infusion Iohexol 100 ml 02/01/24 17:05 02/01/24 17:05 Iohexol 350 Mg/Ml 100 Ml Infus..Btl IV 02/01/24 17:06 65 ml ONCE ONE Administration Lorazepam 1 mg 02/01/24 16:08 02/01/24 16:27 Lorazepam 1 Mg Tablet PO 02/01/24 16:09 1 mg ONCE ONE Administration Lorazepam 0.5 mg 02/01/24 19:02 02/01/24 19:18 Lorazepam 2 Mg/Ml Vial IVPUSH 02/01/24 19:03 0.5 mg ONCE ONE Administration Methylprednisolone Sodium Succinate 125 mg 02/01/24 15:00 02/01/24 15:28 Methylprednisolone Sod Succ 125 Mg/2 Ml Vial IVPUSH 02/01/24 15:01 125 mg ONCE ONE Administration Medical Decision Making Medical Decision Making MDM Narrative: 5-year-old male presents to ED for coughing and sore throat with history of COPD, atrial flutter, diabetes, hypertension presents to ED for coughing, SOB, and sore throat. COVID swab strep negative. Chest x-ray shows possible bilateral superimposed pneumonia also has a nodule. Due to history of COPD with strong antibiotics. There was a delay patient received antibiotics due to presumed allergy reaction to cephalosporin which was on his chart. Patient and his family member confirm he does not have an allergic reaction to cephalosporins. Due to patient being on amiodarone he could not receive azithromycin or any fluoroquinolone due to increased risk of QT prolongation and torsade as per up-to-date. Discussed with Dr. Sullivan recommend adding doxycycline to ceftriaxone. During evaluation patient coughed up blood sputum. Was sent for a chest CTA to rule out PE and confirmed pneumonia. Lactic acid 1.2. O2 saturation lowest 89%. Placed on 1 L oxygen 6:14pm: Chest CTA states no PE but does show pulmonary edema with pleural effusion. Please and imaging reviewed with Dr. Herbert and he states patient should continue be treated as pneumonia with some CHF. CT scan on evaluation when looked at shows ground-glass opacities. He recommends starting patient on Lasix, continue antibiotics and admit. Patient is scheduled for cardioversion with Dr. Fernando on Friday. Case presented to and [facility]. Patient bradycardia heart rate low as 39. patient denies any dizziness, nuasea, vomitting, and is not hypotensive. Presently heart rate in the 50s on monitor. patient states feeling better after solumedorl Differential Diagnosis Differential Diagnoses: The differential diagnosis associated with the presentation includes (PE, pneumonia,) Admission/Observation Consideration of admission/observation: Escalation of care including admission/observation considered Consult Healthcare Provider Management of the patient was discussed with: Hospitalist (MELL Jo, Hospitalist) Lab Data MDM Lab Attestation statement: I reviewed the patient's lab results. 02/01/24 15:10 02/01/24 15:10 Labs: Lab Results 02/01/24 02/01/24 02/01/24 Range/Units 13:15 15:10 15:23 WBC 4.6 L (4.8-10.8) X10*3/uL RBC 4.32 L (4.60-5.80) X10*6/uL Hgb 13.0 L (14.0-18.0) g/dl Hct 38.0 L (42.0-52.0) % MCV 88.0 (80.0-98.0) fL MCH 30.1 (27.0-33.0) pg MCHC 34.2 (31.0-36.0) g/dl RDW 14.3 (11.0-16.0) % Plt Count 90 L (160-400) X10*3/uL MPV 10.5 (9.4-12.4) fL Immature Gran % (Auto) 0.4 (0.0-0.4) % Neut % (Auto) 76.2 H (45-73) % Lymph % (Auto) 13.3 L (20-40) % [place] % (Auto) 7.7 (2-11) % Eos % (Auto) 1.5 (0-4) % Baso % (Auto) 0.9 (0-2) % Lymph # (Auto) 0.6 L (1.2-4.9) X10*3/uL [place] # (Auto) 0.4 (0.1-1.2) X10*3/uL Eos # (Auto) 0.1 (0.0-0.4) X10*3/uL Baso # (Auto) 0.0 (0.0-0.2) X10*3/uL Abs Immat Gran (auto) 0.02 (0.00-0.03) X10*3/uL Absolute Neuts (auto) 3.5 (2.0-8.3) x10*3/uL Absolute Nucleated RBC 0.000 (0.0-0.012) X10*3/uL Nucleated RBC % (auto) 0.0 (0.0-0.2) /100WBC PT 17.9 H (11.1-13.3) SEC INR 1.5 H (0.9-1.1) APTT 36.9 H (26.0-36.8) SEC Sodium 145 (135-145) mmol/L Potassium 3.4 (3.3-5.1) mmol/L Chloride 107 (96-108) mmol/L Carbon Dioxide 27 (22-29) mmol/L Anion Gap 14 (12-20) BUN 14 (9-16) mg/dL Creatinine 0.73 (0.5-1.4) mg/dL Estim Creat Clear Calc 108.4 Estimated GFR > 60 Random Glucose 103 (60-115) mg/dL Lactic Acid 1.2 (0.5-2.0) mmol/L Calcium 9.8 (8.4-10.2) mg/dL Total Bilirubin 1.4 H (0.0-1.0) mg/dL AST 24 (5-37) U/L ALT 18 (0-40) U/L Alkaline Phosphatase 49 (39-117) U/L Troponin I High Sens 8.2 D (<3.5-35.0) ng/L B-Natriuretic Peptide 185 H (<100) pg/mL Total Protein 6.9 (6.5-8.0) g/dL Albumin 3.9 (3.5-5.0) g/dL Influenza Type A (PCR) NEGATIVE (Negative) Influenza Type B (PCR) NEGATIVE (Negative) RSV RNA Qual (PCR) NEGATIVE (Negative) SARS-CoV-2 RNA (RT-PCR) NEGATIVE (Negative) S. pyogenes GrpA JALIL Negative Negative (Negative) 09/15/24 Range/Units 18:37 WBC (4.8-10.8) X10*3/uL RBC (4.60-5.80) X10*6/uL Hgb (14.0-18.0) g/dl Hct (42.0-52.0) % MCV (80.0-98.0) fL MCH (27.0-33.0) pg MCHC (31.0-36.0) g/dl RDW (11.0-16.0) % Plt Count (160-400) X10*3/uL MPV (9.4-12.4) fL Immature Gran % (Auto) (0.0-0.4) % Neut % (Auto) (45-73) % Lymph % (Auto) (20-40) % [place] % (Auto) (2-11) % Eos % (Auto) (0-4) % Baso % (Auto) (0-2) % Lymph # (Auto) (1.2-4.9) X10*3/uL [place] # (Auto) (0.1-1.2) X10*3/uL Eos # (Auto) (0.0-0.4) X10*3/uL Baso # (Auto) (0.0-0.2) X10*3/uL Abs Immat Gran (auto) (0.00-0.03) X10*3/uL Absolute Neuts (auto) (2.0-8.3) x10*3/uL Absolute Nucleated RBC (0.0-0.012) X10*3/uL Nucleated RBC % (auto) (0.0-0.2) /100WBC PT (11.1-13.3) SEC INR (0.9-1.1) APTT (26.0-36.8) SEC Sodium (135-145) mmol/L Potassium (3.3-5.1) mmol/L Chloride (96-108) mmol/L Carbon Dioxide (22-29) mmol/L Anion Gap (12-20) BUN (9-16) mg/dL Creatinine (0.5-1.4) mg/dL Estim Creat Clear Calc Estimated GFR Random Glucose (60-115) mg/dL Lactic Acid (0.5-2.0) mmol/L Calcium (8.4-10.2) mg/dL Total Bilirubin (0.0-1.0) mg/dL AST (5-37) U/L ALT (0-40) U/L Alkaline Phosphatase (39-117) U/L Troponin I High Sens 8.0 (<3.5-35.0) ng/L B-Natriuretic Peptide (<100) pg/mL Total Protein (6.5-8.0) g/dL Albumin (3.5-5.0) g/dL Influenza Type A (PCR) (Negative) Influenza Type B (PCR) (Negative) RSV RNA Qual (PCR) (Negative) SARS-CoV-2 RNA (RT-PCR) (Negative) S. pyogenes GrpA JALIL (Negative) Independent Interpretation I performed an independent interpretation of an: EKG (Wide QRS bundle-branch block), Plain X-Ray and CT Scan Radiology Impression Discussion of test interpretation with radiology: I have reviewed the radiologist's reading. Independent Historian Clinical information obtained from an independent historian. History obtained from or confirmed by: Other (SOn) External Record Review External record reviewed: Other (prior visits) Critical Care Time Critical Care Time Critical Care Time: Yes Total Critical Care Time: 60 Attestation: chest xray shows possible pneumonia. anitiboitcs ordered. CT shows pulmonary edema with effusions. Lasix ordered Discharge Plan Discharge Clinical Impression: Pneumonia, CHF (congestive heart failure) Patient Disposition: Admitted As Inpatient
[2024-02-01 13:43] LABS: IDNOW Serial# 58CA691E; Strep A Nucleic Acid Negative (Negative)
[2024-02-01 14:25] LABS: Influenza A PCR NEGATIVE (Negative); Influenza B PCR NEGATIVE (Negative); Resp Syncy Virus RNA Qual PCR NEGATIVE (Negative); SARS COV2 PCR INHOUSE NEGATIVE (Negative)
--- NOTE | 2024-02-01 14:39 | ECG_ITS ---
Test Reason : SOB Blood Pressure : / mmHG Vent. Rate : 061 BPM Atrial Rate : 000 BPM P-R Int : 000 ms QRS Dur : 150 ms QT Int : 486 ms P-R-T Axes : 000 -17 021 degrees QTc Int : 489 ms Sinus rhythm with 1st degree A-V block Right bundle branch block Abnormal ECG When compared with ECG of 05-NOV-2021 06:34, No significant change was found Referred By: Rubin Sanches Electronically Signed By:PRABHU SEAMAN
[2024-02-01 15:15] LABS: MANUAL DIFF FLAG NO
[2024-02-01 15:17] LABS: PLT CLUMP 1; SCAN SMEAR FLAG 1
[2024-02-01 15:19] LABS: Basophils Percent Auto 0.9 % (0-2); Eosinophils Absolute Auto 0.1 X10*3/uL (0.0-0.4); Eosinophils Percent Auto 1.5 % (0-4); Imm Gran Abs Auto 0.02 X10*3/uL (0.00-0.03); Imm Gran Pct Auto 0.4 % (0.0-0.4); Lymphocytes Absolute Auto 0.6 X10*3/uL (1.2-4.9); Lymphocytes Percent Auto 13.3 % (20-40); Mean Corpuscular HGB Conc 34.2 g/dl (31.0-36.0); Mean Corpuscular Hemoglobin 30.1 pg (27.0-33.0); Mean Platelet Volume 10.5 fL (9.4-12.4); Monocytes Absolute Auto 0.4 X10*3/uL (0.1-1.2); Monocytes Percent Auto 7.7 % (2-11); Neutrophils Absolute Auto 3.5 x10*3/uL (2.0-8.3); Neutrophils Percent Auto 76.2 % (45-73); Red Blood Count 4.32 X10*6/uL (4.60-5.80); Red Cell Distribution Width 14.3 % (11.0-16.0)
[2024-02-01 15:21] LABS: Platelet Count 90 X10*3/uL (160-400); White Blood Count 4.6 X10*3/uL (4.8-10.8)
[2024-02-01 15:28] LABS: INTERNATIONAL NORM RATIO 1.5 (0.9-1.1); Lactic Acid 1.2 mmol/L (0.5-2.0); Prothrombin Time 17.9 SEC (11.1-13.3)
[2024-02-01] MEDS: methylPREDNISolone Sod Succ 125 MG/2 ML VIAL IVPUSH (15:28)
[2024-02-01 15:30] LABS: Partial Thromboplastin Time 36.9 SEC (26.0-36.8)
[2024-02-01 15:39] LABS: Troponin-I High Sensitivity 8.2 ng/L (<3.5-35.0)
[2024-02-01 15:43] LABS: Alanine Aminotransferase 18 U/L (0-40); Albumin Level 3.9 g/dL (3.5-5.0); Alkaline Phosphatase 49 U/L (39-117); Anion Gap 14 (12-20); Aspartate Amino Transferase 24 U/L (5-37); Bilirubin Total 1.4 mg/dL (0.0-1.0); Blood Urea Nitrogen 14 mg/dL (9-16); Calcium 9.8 mg/dL (8.4-10.2); Carbon Dioxide 27 mmol/L (22-29); Chloride 107 mmol/L (96-108); Creatinine Clr Calc Pharmacy 108.4; Estimated Glomerular Filt Rate > 60; Glucose Random 103 mg/dL (60-115); Potassium 3.4 mmol/L (3.3-5.1); Sodium 145 mmol/L (135-145); Total Protein 6.9 g/dL (6.5-8.0)
[2024-02-01 15:45] LABS: IDNOW Serial# 08D9AD1C; Strep A Nucleic Acid Negative (Negative)
[2024-02-01 15:51] LABS: B Type Natriuretic Peptide 185 pg/mL (<100)
[2024-02-01] MEDS: LORazepam 1 MG TABLET PO (16:27)
[2024-02-01] MEDS: cefTRIAXone sodium 1 GM in 0.9 % Sodium Chloride 50 ML IV (16:27)
[2024-02-01] MEDS: iohexoL 350 MG/ML 100 ML INFUS..BTL IV (17:05)
[2024-02-01] MEDS: Doxycycline Hyclate 100 MG in 0.9 % Sodium Chloride 250 ML 166.67 MG IV (17:41)
--- NOTE | 2024-02-01 18:31 | ECG_ITS ---
Test Reason : bradicardia Blood Pressure : / mmHG Vent. Rate : 057 BPM Atrial Rate : 241 BPM P-R Int : 000 ms QRS Dur : 142 ms QT Int : 520 ms P-R-T Axes : 000 -18 004 degrees QTc Int : 506 ms Atrial flutter with variable A-V block Right bundle branch block Abnormal ECG When compared with ECG of 01-FEB-2024 14:54, Atrial flutter has replaced Sinus rhythm Referred By: Rubin Sanches Electronically Signed By:PRABHU SEAMAN
[2024-02-01] MEDS: Furosemide 40 MG/4 ML VIAL IVPUSH (18:43)
--- NOTE | 2024-02-01 19:05 | PM.IMHP ---
History of Present Illness Date of Service: 02/01/24 Attending physician on admission: Basim Edge Chief Complaint: st, cough 68-year-old male with history of asthma/COPD overlap not on home O2, [id number]-[id number] type 2 diabetes, GERD, BPH, hyperlipidemia, PTSD, hypertension, ANJELICA on CPAP, mitral regurgitation, persistent atrial fibrillation scheduled for cardioversion on Friday anticoagulated with Eliquis presents to the ED earlier today for evaluation of sore throat, occasionally productive cough with clear sputum, labored breathing, and malaise. He states over the last week he has also been experiencing increase in bilateral lower extremity edema. There is also some nausea but no vomiting. Reports chronic orthopnea that has worsened over the last week. No fevers, chills, vomiting, dysuria, hematuria, increased urinary frequency, decreased urinary output, lightheadedness, palpitations, shortness of breath at rest, chest pain. Since arrival, heart rates have been variable ranging 40s -103 but on exam, primarily high 50s-60s. No fevers or hypotension. He is reporting some anxiety. There is no sustained hypoxia. No leukocytosis. Platelets 90. Renal function baseline, electrolyte levels normal. Total bilirubin 1.4, AST/ALT within normal limits. Troponin levels within normal limits. BNP 186. Negative for COVID-19, RSV, influenza, strep pyogenes. CTA of the chest negative for pulmonary embolisms but shows pulmonary edema with small to moderate bilateral pleural effusions. No focal consolidation. No sick contacts at home, but reports his was recently at SNF and he did visit often. He follows with Dr. Fernando and most recent echo in 12/2023 showed normal LV systolic function with EF 55-60% but indeterminate diastolic dysfunction. He is scheduled for cardioversion on Friday. Review of Systems Review of Systems: Yes all other systems are reviewed and are negative FORMERLY [facility] Medical History Atrial flutter Elevated cholesterol History of GI diverticular bleed BPH (benign prostatic hyperplasia) History of blood transfusion GERD (gastroesophageal reflux disease) Type 2 diabetes mellitus Depression with anxiety PTSD (post-traumatic stress disorder) Migraine COPD, mild Asthma HTN (hypertension) Obstructive sleep apnea Enlarged RV (right ventricle) Mitral regurgitation Family History Father Rheumatic fever Mother No problems noted. Sister Hx of aortic valve repair Brother Mitral valve replaced Surgical History History of excision of lesion (06/25/22) History of arthroscopy of right knee History of left inguinal hernia repair History of repair of right rotator cuff History of repair of left rotator cuff History of mitral valve replacement S/P MVR (mitral valve replacement) Hx of cardiac cath Social History Patient Tobacco Use Status: Former Tobacco user Smoked in Last 30 Days: No Use of substances other than those prescribed or required for medical reasons: No Advance Directives: Yes Advance Directives on File: Yes Advance Directives Date on File: 10/29/21 Do you have a plan to hurt others: No Plan Current occupational status: retired Current occupation: ambidextrous, 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 Meds Allergies Allergy/AdvReac Type Severity Reaction Status Date / Time DUSTIN Inhibitors Allergy Severe Anaphylaxis Verified 02/01/24 12:42 [Dustin Inhibitors] aspirin Allergy Severe Anaphylaxis Verified 02/01/24 12:42 NSAIDS (Non-Steroidal Allergy Severe Anaphylaxis Verified 02/01/24 12:42 Anti-Inflamma [NSAIDS (NON-STEROIDAL ANTI-INFLAMMA] thimerosal [Thimerosal] Allergy Severe Angioedema Verified 02/01/24 12:42 tamsulosin Allergy Mild tacycardia Verified 02/01/24 12:42 aspartame [ASPARTAME] Allergy Unknown Unknown Verified 02/01/24 12:42 Cephalosporins Allergy Unknown Rash Verified 02/01/24 12:42 [CEPHALOSPORINS] fluoxetine [From PROZAC] Allergy Unknown REQUIRED Verified 02/01/24 12:42 HOSPITALIZATION hexachlorophene Allergy Unknown Unknown Verified 02/01/24 12:42 [From PHISOHEX] melon Allergy Unknown Unknown Verified 02/01/24 12:42 penicillin V Allergy Unknown Rash Verified 02/01/24 12:42 Penicillins Allergy Unknown Rash Verified 02/01/24 12:42 perfume Allergy Unknown Unknown Verified 02/01/24 12:42 pineapple [PINEAPPLE] Allergy Unknown Angioedema Verified 02/01/24 12:42 povidone-iodine Allergy Unknown Unknown Verified 02/01/24 12:42 [From BETADINE] soap [Betadine] Allergy Unknown Unknown Verified 02/01/24 12:42 codeine [Codeine] AdvReac Unknown wakes up Verified 02/01/24 12:42 combative monosodium glutamate AdvReac Unknown Headache Verified 02/01/24 12:42 morphine AdvReac Unknown wakes up Verified 02/01/24 12:42 combative meperidine [From Demerol] AdvReac Hallucinati Verified 02/01/24 12:42 ons dexon Allergy Unknown Unknown Uncoded 11/11/23 10:51 GLUE IN SHOES Allergy Unknown UNKNOWN Uncoded 11/11/23 10:51 PLASTIC TAPE Allergy Unknown skin Uncoded 11/11/23 10:51 problems POLYGLACTIC ACID(DEXON & Allergy Unknown UNKNOWN Uncoded 11/11/23 10:51 VICRYL) vicryl Allergy Unknown Unknown Uncoded 11/11/23 10:51 Active Medications: Current Medications Acetaminophen (Acetaminophen 325 Mg Tablet) 650 mg PO Q6H PRN PRN Reason: Pain, Mild (Pain Scale 1-3), fever or headache Albuterol/Ipratropium (Albuterol/Iprat 2.5/0.5mg 3 Ml Ampul.Neb) 3 ml INHALE RQ4H WHILE AWAKE [facility] Amiodarone HCl (Amiodarone Hcl 200 Mg Tablet) 400 mg PO BID [facility] Apixaban (Apixaban 5 Mg Tablet) 5 mg PO BID [facility] Calcium Carbonate (Calcium Carbonate 750 Mg Tab.Chew) 750 mg PO Q4H PRN PRN Reason: Heartburn Finasteride (Finasteride 5 Mg Tablet) 5 mg PO DAILY [facility] Furosemide (Furosemide 20 Mg/2 Ml Vial) 20 mg IVPUSH DAILY COLT; Protocol Glucose (Glucose Gel 15 Gm Gel..Gram.) 15 gm PO Q15M PRN; Protocol PRN Reason: per Hypoglycemia Standing Ord. Dextrose (D10) 250 mls @ 750 mls/hr IV Q15M PRN; Protocol PRN Reason: per Hypoglycemia Standing Ord. Doxycycline Hyclate 100 mg/ (Sodium Chloride) 250 mls @ 166.67 mls/hr IV Q12H [facility] Insulin Human Lispro (Insulin Lispro 100 Unit/Ml 3 Ml Vial) 0 unit SUBCUT QIDACHS COLT; Protocol Magnesium Hydroxide (Milk Of Magnesia 30 Ml Oral.Susp) 30 ml PO DAILY PRN PRN Reason: Constipation Melatonin (Melatonin 3 Mg Tablet) 6 mg PO BEDTIME PRN PRN Reason: Insomnia Methylprednisolone Sodium Succinate (Methylprednisolone Sod Succ 40 Mg/Ml Vial) 40 mg IVPUSH Q12H COLT Sodium Chloride (0.9 % Sodium Chloride Flush 3 Ml Syringe) 3 ml IVFLUSH QSHIFT COLT Home Medications ?Medication ?Instructions ?Recorded ?Confirmed ?Last Taken ?Type cholecalciferol (vitamin D3) 25 25 mcg PO DAILY 11/08/20 01/05/24 Unknown History mcg (1,000 unit) capsule clonazepam 0.5 mg tablet 0.5 mg PO DAILY PRN Anxiety 11/08/20 01/05/24 Unknown History epinephrine 0.3 mg/0.3 mL 0.3 mg IM Q10M PRN Allergic 11/08/20 01/05/24 Unknown History injection, auto-injector (EpiPen) Reaction finasteride 5 mg tablet 5 mg PO DAILY 11/08/20 02/01/24 Unknown History ipratropium 20 mcg-albuterol 100 1 puff inhalation Q6H 11/08/20 01/05/24 Unknown History mcg/actuation mist for inhalation (Combivent Respimat) mometasone 220 mcg/actuation(30 2 inh inhalation BID 11/08/20 01/05/24 02/07/23 03:30 History doses) breath activated powder inhaler (Asmanex Twisthaler) saw palmetto 160 mg capsule 320 mg PO DAILY 11/08/20 01/05/24 Unknown History fluticasone propionate 50 1 spray intranasal DAILY 02/13/21 01/05/24 02/07/23 03:30 History mcg/actuation nasal spray,suspension (Flonase Allergy Relief) montelukast 10 mg tablet 10 mg PO DAILY 02/13/21 02/01/24 Unknown History dgzhivtyxm-dantbkkoinfmu-mhduwder tab PO DAILY PRN Migraine Headache 04/19/22 01/05/24 Unknown History 50 mg-325 mg-40 mg tablet fluoride (sodium) 1.1 % dental PO 04/19/22 01/05/24 Unknown History paste atorvastatin 20 mg tablet 20 mg PO QPM 12/25/22 01/05/24 Unknown History terazosin 10 mg capsule 10 mg PO DAILY 12/25/22 01/05/24 02/07/23 03:30 History omeprazole 20 mg capsule,delayed 40 mg PO DAILY 01/30/23 02/01/24 Unknown History release metformin 750 mg tablet,extended 750 mg PO BID 07/18/23 01/05/24 Unknown History release 24 hr apixaban 5 mg tablet (Eliquis) 5 mg PO BID 01/05/24 02/01/24 Unknown History mecobalamin (vitamin B12) 1,000 1,000 mcg PO DAILY 01/05/24 01/05/24 Unknown History mcg lozenges miconazole nitrate 2 % topical topical 01/05/24 01/05/24 Unknown History powder (Antifungal (miconazole)) semaglutide (weight loss) 0.5 1 mg subcut QWEEK 01/05/24 01/05/24 Unknown History mg/0.5 mL subcutaneous pen injector Physical Exam Vital Signs and Narrative: Vital Signs: Last Vital Signs Temp 97.8 F 02/01/24 16:07 Pulse 60 02/01/24 18:43 Resp 14 02/01/24 18:43 BP 171/101 H 02/01/24 18:43 Pulse Ox 93 02/01/24 18:43 O2 Del Method Room Air 02/01/24 18:43 O2 Flow Rate 2 02/01/24 18:25 Oxygen Flow Rate 2 02/01/24 18:25 BMI result Body Mass Index 31.7 Constitutional - Awake and Alert, No apparent distress Eyes - PERRLA, EOMI Cardiovascular - S1S2, RRR, 3+ ble edema, no jvd Respiratory - Normal lung expansion, Normal respiratory effort, No respiratory distress, bibasilar crackles, scattered faint wheezing bilaterally Gastrointestinal - NT / ND; +BS; No rebound or guarding Extremities - no calf tenderness bilaterally, no swelling Skin - Warm/Dry Neurological - Alert & oriented x3 Psychological - Appropriate affect Results Labs 02/01/24 15:10 02/01/24 15:10 Labs: Laboratory Results - last 24 hr 02/01/24 02/01/24 02/01/24 13:15 15:10 15:23 MCV 88.0 MCH 30.1 MCHC 34.2 RDW 14.3 Plt Count 90 L MPV 10.5 Immature Gran % (Auto) 0.4 Neut % (Auto) 76.2 H Lymph % (Auto) 13.3 L [place] % (Auto) 7.7 Eos % (Auto) 1.5 Baso % (Auto) 0.9 Lymph # (Auto) 0.6 L [place] # (Auto) 0.4 Eos # (Auto) 0.1 Baso # (Auto) 0.0 Abs Immat Gran (auto) 0.02 Absolute Neuts (auto) 3.5 Absolute Nucleated RBC 0.000 Nucleated RBC % (auto) 0.0 PT 17.9 H INR 1.5 H APTT 36.9 H Anion Gap 14 Estim Creat Clear Calc 108.4 Estimated GFR > 60 Random Glucose 103 Lactic Acid 1.2 Calcium 9.8 Total Bilirubin 1.4 H AST 24 ALT 18 Alkaline Phosphatase 49 Troponin I High Sens 8.2 D B-Natriuretic Peptide 185 H Total Protein 6.9 Albumin 3.9 Influenza Type A (PCR) NEGATIVE Influenza Type B (PCR) NEGATIVE RSV RNA Qual (PCR) NEGATIVE SARS-CoV-2 RNA (RT-PCR) NEGATIVE S. pyogenes GrpA JALIL Negative Negative 02/01/24 18:37 MCV MCH MCHC RDW Plt Count MPV Immature Gran % (Auto) Neut % (Auto) Lymph % (Auto) J[place] % (Auto) Eos % (Auto) Baso % (Auto) Lymph # (Auto) [place] # (Auto) Eos # (Auto) Baso # (Auto) Abs Immat Gran (auto) Absolute Neuts (auto) Absolute Nucleated RBC Nucleated RBC % (auto) PT INR APTT Anion Gap Estim Creat Clear Calc Estimated GFR Random Glucose Lactic Acid Calcium Total Bilirubin AST ALT Alkaline Phosphatase Troponin I High Sens 8.0 B-Natriuretic Peptide Total Protein Albumin Influenza Type A (PCR) Influenza Type B (PCR) RSV RNA Qual (PCR) SARS-CoV-2 RNA (RT-PCR) S. pyogenes GrpA JALIL Imaging Radiologist's Impressions: Impressions Chest X-Ray 02/01/24 12:49 IMPRESSION: * There is a 3.9 cm nodular opacity in medial right lung base, unclear if this could correspond to a prominent hilar structure such as a dilated pulmonary artery versus an infrahilar lesion and recommend correlation with contrast-enhanced CT chest. * New small bilateral pleural effusions with streaky bibasilar opacities which may reflect atelectasis given effusions with superimposed aspiration or infection. * Bronchial wall thickening which can be seen with a small airways process such as asthma or atypical/viral infection. Electronically signed by: Morena Chi MD 02/01/2024 02:08 PM EDT RP Chest CTA 02/01/24 16:43 IMPRESSION: No evidence of pulmonary embolism. Findings suggesting pulmonary edema with [id number] bilateral pleural effusions. Additional findings, as above. Electronically signed by: Mart Parikh MD 02/01/2024 05:31 PM EDT RP Assessment and Plan (1) CHF (congestive heart failure): Status: Acute (2) URI (upper respiratory infection): Status: Acute (3) COPD exacerbation: Status: Acute Plan 68-year-old male with history of asthma/COPD overlap not on home O2, hiy-mgwqihu-eenilpcsh type 2 diabetes, GERD, BPH, hyperlipidemia, PTSD, hypertension, ANJELICA on CPAP, mitral regurgitation, persistent atrial fibrillation scheduled for cardioversion on Friday anticoagulated with Eliquis admitted for CHF exacerbation #CHF exacerbation -likely in setting of viral URI. No hypoxia -CTA chest shows pulmonary edema with b/l small to moderate pleural effusions. BNP 185 -echo 12/2023 with normal LV systolic function with ef 55-60%, indeterminate diastolic dysfunction -IV lasix 40mg in ed, continue 20mg iv lasix daily -strict I&O -cardiac diet -cardiology consult #Viral URI with acute mild COPD exacerbation -clear/blood tinged sputum (on eliquis), no shay hemoptysis. No focal consolidation on imaging -negative for COVID-19, RSV, influenza. Check RPP -Loaded with iv methylprednisolone in the ed. Hold on further steroids as wheezing could be r/t fluid. Consider resuming if wheezing persists -DuoNebs q.4h while awake -doxycycline 100mg bid -symptomatic management # persistent atrial fibrillation with slow ventricular rate -rates 50s on average, not on rate control medications -continue Eliquis for anticoagulation -scheduled for cardioversion on Friday. Cardiology consult # bhv-jswpfdy-acadutukv type 2 diabetes -POC glucose, diabetic diet -Humalog on sliding scale -hold metformin, Ozempic. Monitor for steroid induced hyperglycemia # ANJELICA -CPAP bedtime # BPH -continue finasteride, tadalafil #hypertension -monitor blood pressures, not on antihypertensives -feels elevated blood pressures are related to anxiety. Give Ativan x1. Consider additional therapy if remains hypertensive # chronic normocytic anemia -H/H above transfusion threshold # chronic thrombocytopenia-mild -monitor platelets, can continue Eliquis DVT prophylaxis-Eliquis Full code Patient requires inpatient stay at least 2 midnights for management of CHF exacerbation requiring IV diuresis, close monitoring of intake versus output as well as monitoring of respiratory status with expert consultation Quality Stroke Does the patient have a stroke diagnosis?: No VTE Prior VTE?: No VTE Risk Level:: Medical - moderate - high VTE Device Contraindication: Treatment Not Indicated VTE Drug Contraindication: N/A - Med Ordered
[2024-02-01] MEDS: Amiodarone HCL 200 MG TABLET 400 MG PO (19:18)
[2024-02-01] MEDS: LORazepam 2 MG/ML VIAL 0.5 MG IVPUSH (19:18)
[2024-02-01] MEDS: Albuterol/Iprat 2.5/0.5MG 3 ML AMPUL.NEB INHALE (19:41)
[2024-02-01] MEDS: Finasteride 5 MG TABLET PO (20:40)
[2024-02-01] MEDS: Apixaban 5 MG TABLET PO (20:40)
[2024-02-01 21:21] LABS: Glucose, Whole Blood 196 mg/dL (60-115)
[2024-02-01] MEDS: Insulin Lispro 100 UNIT/ML 3 ML VIAL SUBCUT (22:01)
--- NOTE | 2024-02-01 22:08 | PC.NURSE ---
Patient's O2 Sat 88-90% on 2 LPM NC when asleep. Respiratory therapist notified, patient placed on home CPAP and O2 flow increased to 4 LPM. 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 Patient denies chest pain/SOB/heart palpitations. Call butler in patient's reach, plan of care ongoing.
[2024-02-02] VITALS (17 sets, daily range): BP systolic 126–160; BP diastolic 69–95; PULSE 52–87; RESP 13–24; TEMP 36.1–37.4; O2SAT 92–98
--- NOTE | 2024-02-02 00:01 | MHC.EDTECH ---
This tech took over care of patient at 2300,rounds and vitals completed,patient has a [place] Cath.placed by previous shift,emptied 1,500MLS of clear yellow urine,belongings list completed,copy placed in chart.patient was repositioned to comfort,call butler in reach
[2024-02-02] MEDS: 0.9 % Sodium Chloride Flush 3 ML SYRINGE IVFLUSH ×2 (00:08→21:25)
--- NOTE | 2024-02-02 01:37 | PC.NURSE ---
Dr. Torres informed of patient's heart rate 40-57 while asleep, BP 136/74, O2 Sat 92-94% on 4 LPM NC and nocturnal CPAP. Patient asymptomatic, he denies chest pain/SOB, no new orders at this time.
--- NOTE | 2024-02-02 03:05 | MHC.EDTECH ---
Hourly rounds and vitals completed,patient is resting quietly call butler in reach
[2024-02-02 05:03] LABS: MANUAL DIFF FLAG NO
[2024-02-02 05:07] LABS: Basophils Percent Auto 0.2 % (0-2); Hematocrit 37.3 % (42.0-52.0); Hemoglobin 12.7 g/dl (14.0-18.0); Imm Gran Abs Auto 0.01 X10*3/uL (0.00-0.03); Imm Gran Pct Auto 0.2 % (0.0-0.4); Lymphocytes Absolute Auto 0.3 X10*3/uL (1.2-4.9); Lymphocytes Percent Auto 6.6 % (20-40); Mean Corpuscular Hemoglobin 29.9 pg (27.0-33.0); Mean Corpuscular Volume 87.8 fL (80.0-98.0); Mean Platelet Volume 10.1 fL (9.4-12.4); Monocytes Absolute Auto 0.2 X10*3/uL (0.1-1.2); Monocytes Percent Auto 3.8 % (2-11); Neutrophils Absolute Auto 4.5 x10*3/uL (2.0-8.3); Neutrophils Percent Auto 89.2 % (45-73); Red Blood Count 4.25 X10*6/uL (4.60-5.80); Red Cell Distribution Width 14.2 % (11.0-16.0)
[2024-02-02 05:08] LABS: Platelet Count 91 X10*3/uL (160-400)
[2024-02-02 05:21] LABS: Anion Gap 17 (12-20); Blood Urea Nitrogen 12 mg/dL (9-16); Calcium 8.4 mg/dL (8.4-10.2); Carbon Dioxide 23 mmol/L (22-29); Chloride 105 mmol/L (96-108); Creatinine Clr Calc Pharmacy 108.4; Estimated Glomerular Filt Rate > 60; Glucose Random 161 mg/dL (60-115); Sodium 142 mmol/L (135-145)
[2024-02-02 05:25] LABS: B Type Natriuretic Peptide 275 pg/mL (<100)
--- NOTE | 2024-02-02 05:25 | MHC.EDTECH ---
Hourly rounds and vitals completed,emptied 400MLS from bag, Tea given per request,call butler in reach
[2024-02-02] MEDS: Omeprazole 40 MG CAPSULE.DR PO (06:01)
--- NOTE | 2024-02-02 06:02 | MHC.EDTECH ---
Addendum entered by Hazel Felder 02/02/24 06:03: patient was repositioned to comfort,call butler in reach Original Note: [place] Cath,fell off,patient is going to attempt to use the urinal,
[2024-02-02 07:09] LABS: Glucose, Whole Blood 150 mg/dL (60-115)
--- NOTE | 2024-02-02 07:19 | MHC.EDTECH ---
POC was taken @6:45 and the result 150, and call butler within PT reach.
[2024-02-02] MEDS: Doxycycline Hyclate 100 MG in 0.9 % Sodium Chloride 250 ML 166.67 MG IV ×2 (07:27→21:21)
[2024-02-02] MEDS: Albuterol/Iprat 2.5/0.5MG 3 ML AMPUL.NEB INHALE ×3 (08:34→20:26)
[2024-02-02] MEDS: Montelukast Sodium 10 MG TABLET PO (08:37)
[2024-02-02] MEDS: Furosemide 20 MG/2 ML VIAL IVPUSH ×2 (08:37→17:26)
[2024-02-02] MEDS: Amiodarone HCL 200 MG TABLET 400 MG PO ×2 (08:37→21:02)
[2024-02-02] MEDS: Apixaban 5 MG TABLET PO ×2 (08:37→21:02)
--- NOTE | 2024-02-02 09:02 | PC.NURSE ---
pt recently finished breathing treatment via RT at this time. pt currently speaking w/ dr. roberts at this time - pt aware of plan of care moving forward. patient's IV access' redressed. both access remain patent/intact at this time. pt remains on 4L via NC - resting in no apparent distress. no sob/wob noted. respirations even/unlabored. plan of care ongoing. call butler placed within reach.
--- NOTE | 2024-02-02 09:42 | P.CONCA_ITS ---
History of Present Illness History of Present Illness Date of Service: 02/02/24 Requesting physician: [facility] Consult reason: congestive heart failure Chief complaint: chf exac, afib slow vr, URI Narrative: I was consulted to see Jared in cardiology consultation today for management of new onset congestive heart failure. Patient is a pleasant 68-year-old male with prior history of bioprosthetic mitral valve replacement was recently noted to have new onset atrial flutter. He was then promptly started on oral anticoagulation therapy and subsequently I see him in the office. He was having significant symptoms of exercise intolerance with increasing shortness of breath and fatigue. However when I saw him in the office he was not having any signs of heart failure and we had decided to pursue rhythm control approach and had start him on amiodarone loading and was planned for synchronized cardioversion on February 03. Patient came in saying last does having increasing symptoms. He was having increasing worsening shortness of breath but overnight developed significant leg edema and he try to treat it at home by leg elevation but continued to get worsening shortness of breath not able to lay back with shortness of breath as well as not able to use CPAP. He then decided come to the emergency room yesterday. Was noted to be in pulmonary edema by chest CT with bilateral pleural effusion. Has been given Lasix and has diuresed about greater than 2500 cc and says he feels 100% better but still short of breath. Still has leg edema. Having some wheezing. He said he had some upper respiratory viral type stuff and infection. Maybe in mild COPD exacerbation. He said he had blood-tinged sputum but has not stopped his Eliquis therapy. He also has been taking his amiodarone therapy. Says at nighttime he was feeling a lot of fluttering. Currently feeling better. Blood pressure is stable. Denies any chest pain. Review of Systems 2 Constitutional: Constitutional: Reports fatigue ENT: Reports nasal congestion Cardiovascular: Cardiovascular: Denies chest pain, Reports leg edema, Denies lightheadedness, Denies Loss of Consciousness, Reports palpitations, Reports dyspnea on exertion and Reports orthopnea Respiratory: Respiratory: Reports cough, Reports dyspnea on exertion and Reports wheezing Gastrointestinal: Gastrointestinal: Reports no additional gastrointestinal complaints Musculoskeletal: Musculoskeletal: Reports no additional musculoskeletal complaints Neurologic: Reports system reviewed and no additional complaints, except as documented Endocrine: Endocrine: Reports no additional endocrine complaints, Reports fatigue and Reports palpitations Allergic/Immunologic: Allergic/Immunologic: Reports wheezing PMFSH Past Medical History Medical History Atrial flutter Elevated cholesterol History of GI diverticular bleed BPH (benign prostatic hyperplasia) History of blood transfusion GERD (gastroesophageal reflux disease) Type 2 diabetes mellitus Depression with anxiety PTSD (post-traumatic stress disorder) Migraine COPD, mild Asthma HTN (hypertension) Obstructive sleep apnea Enlarged RV (right ventricle) Mitral regurgitation Family History Family History Father Rheumatic fever Mother No problems noted. Sister Hx of aortic valve repair Brother Mitral valve replaced Surgical History Surgical History History of excision of lesion (06/25/22) History of arthroscopy of right knee History of left inguinal hernia repair History of repair of right rotator cuff History of repair of left rotator cuff History of mitral valve replacement S/P MVR (mitral valve replacement) Hx of cardiac cath Social History Social History Patient Tobacco Use Status: Former Tobacco user Smoked in Last 30 Days: No Use of substances other than those prescribed or required for medical reasons: No Advance Directives: Yes Advance Directives on File: Yes Advance Directives Date on File: 10/29/21 Do you have a plan to hurt others: No Plan Nutrition Risks: No Nutritional Risk Current occupational status: retired Current occupation: ambidextrous, 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 Meds Allergies Allergy/AdvReac Type Severity Reaction Status Date / Time DUSTIN Inhibitors Allergy Severe Anaphylaxis Verified 02/01/24 12:42 [Dustin Inhibitors] aspirin Allergy Severe Anaphylaxis Verified 02/01/24 12:42 NSAIDS (Non-Steroidal Allergy Severe Anaphylaxis Verified 02/01/24 12:42 Anti-Inflamma [NSAIDS (NON-STEROIDAL ANTI-INFLAMMA] thimerosal [Thimerosal] Allergy Severe Angioedema Verified 02/01/24 12:42 tamsulosin Allergy Mild tacycardia Verified 02/01/24 12:42 aspartame [ASPARTAME] Allergy Unknown Unknown Verified 02/01/24 12:42 Cephalosporins Allergy Unknown Rash Verified 02/01/24 12:42 [CEPHALOSPORINS] fluoxetine [From PROZAC] Allergy Unknown REQUIRED Verified 02/01/24 12:42 HOSPITALIZATION hexachlorophene Allergy Unknown Unknown Verified 02/01/24 12:42 [From PHISOHEX] melon Allergy Unknown Unknown Verified 02/01/24 12:42 penicillin V Allergy Unknown Rash Verified 02/01/24 12:42 Penicillins Allergy Unknown Rash Verified 02/01/24 12:42 perfume Allergy Unknown Unknown Verified 02/01/24 12:42 pineapple [PINEAPPLE] Allergy Unknown Angioedema Verified 02/01/24 12:42 povidone-iodine Allergy Unknown Unknown Verified 02/01/24 12:42 [From BETADINE] soap [Betadine] Allergy Unknown Unknown Verified 02/01/24 12:42 codeine [Codeine] AdvReac Unknown wakes up Verified 02/01/24 12:42 combative monosodium glutamate AdvReac Unknown Headache Verified 02/01/24 12:42 morphine AdvReac Unknown wakes up Verified 02/01/24 12:42 combative meperidine [From Demerol] AdvReac Hallucinati Verified 02/01/24 12:42 ons dexon Allergy Unknown Unknown Uncoded 11/11/23 10:51 GLUE IN SHOES Allergy Unknown UNKNOWN Uncoded 11/11/23 10:51 PLASTIC TAPE Allergy Unknown skin Uncoded 11/11/23 10:51 problems POLYGLACTIC ACID(DEXON & Allergy Unknown UNKNOWN Uncoded 11/11/23 10:51 VICRYL) vicryl Allergy Unknown Unknown Uncoded 11/11/23 10:51 Active Medications: Current Medications Acetaminophen (Acetaminophen 325 Mg Tablet) 650 mg PO Q6H PRN PRN Reason: Pain, Mild (Pain Scale 1-3), fever or headache Albuterol/Ipratropium (Albuterol/Iprat 2.5/0.5mg 3 Ml Ampul.Neb) 3 ml INHALE RQ4H WHILE AWAKE [facility] Last Admin: 02/02/24 08:34 Dose: 3 ml Amiodarone HCl (Amiodarone Hcl 200 Mg Tablet) 400 mg PO BID [facility] Last Admin: 02/02/24 08:37 Dose: 400 mg Apixaban (Apixaban 5 Mg Tablet) 5 mg PO BID [facility] Last Admin: 02/02/24 08:37 Dose: 5 mg Calcium Carbonate (Calcium Carbonate 750 Mg Tab.Chew) 750 mg PO Q4H PRN PRN Reason: Heartburn Finasteride (Finasteride 5 Mg Tablet) 5 mg PO BEDTIME [facility] Last Admin: 02/01/24 21:11 Dose: Not Given Furosemide (Furosemide 20 Mg/2 Ml Vial) 20 mg IVPUSH BID@0900,1800 [facility]; Protocol Glucose (Glucose Gel 15 Gm Gel..Gram.) 15 gm PO Q15M PRN; Protocol PRN Reason: per Hypoglycemia Standing Ord. Guaifenesin (Guaifenesin 200 Mg/10 Ml 10 Ml Liquid) 10 ml PO Q4H PRN PRN Reason: Cough Dextrose (D10) 250 mls @ 750 mls/hr IV Q15M PRN; Protocol PRN Reason: per Hypoglycemia Standing Ord. Doxycycline Hyclate 100 mg/ (Sodium Chloride) 250 mls @ 166.67 mls/hr IV Q12H [facility] Last Infusion: 02/02/24 09:05 Dose: Infused Insulin Human Lispro (Insulin Lispro 100 Unit/Ml 3 Ml Vial) 0 unit SUBCUT QIDACHS [facility]; Protocol Last Admin: 02/02/24 07:20 Dose: Not Given Magnesium Hydroxide (Milk Of Magnesia 30 Ml Oral.Susp) 30 ml PO DAILY PRN PRN Reason: Constipation Melatonin (Melatonin 3 Mg Tablet) 6 mg PO BEDTIME PRN PRN Reason: Insomnia Montelukast Sodium (Montelukast Sodium 10 Mg Tablet) 10 mg PO DAILY [facility] Last Admin: 02/02/24 08:37 Dose: 10 mg Non-Formulary Medication (Tadalafil [Cialis]) 5 mg PO BEDTIME [facility] Omeprazole (Omeprazole 40 Mg Capsule.Dr) 40 mg PO DAILY@0630 [facility] Last Admin: 02/02/24 06:01 Dose: 40 mg Sodium Chloride (0.9 % Sodium Chloride Flush 3 Ml Syringe) [facility] Last Admin: 02/02/24 07:27 Dose: Not Given Spironolactone (Spironolactone 25 Mg Tablet) 12.5 mg PO DAILY [facility]; Protocol Home Medications ?Medication ?Instructions ?Recorded ?Confirmed ?Last Taken ?Type cholecalciferol (vitamin D3) 25 25 mcg PO DAILY 11/08/20 01/05/24 Unknown History mcg (1,000 unit) capsule clonazepam 0.5 mg tablet 0.5 mg PO DAILY PRN Anxiety 11/08/20 01/05/24 Unknown History epinephrine 0.3 mg/0.3 mL 0.3 mg IM Q10M PRN Allergic 11/08/20 01/05/24 Unknown History injection, auto-injector (EpiPen) Reaction finasteride 5 mg tablet 5 mg PO DAILY 11/08/20 02/01/24 Unknown History ipratropium 20 mcg-albuterol 100 1 puff inhalation Q6H 11/08/20 01/05/24 Unknown History mcg/actuation mist for inhalation (Combivent Respimat) mometasone 220 mcg/actuation(30 2 inh inhalation BID 11/08/20 01/05/24 02/07/23 03:30 History doses) breath activated powder inhaler (Asmanex Twisthaler) saw palmetto 160 mg capsule 320 mg PO DAILY 11/08/20 01/05/24 Unknown History fluticasone propionate 50 1 spray intranasal DAILY 02/13/21 01/05/24 02/07/23 03:30 History mcg/actuation nasal spray,suspension (Flonase Allergy Relief) [id number] tab PO DAILY PRN Migraine Headache 04/19/22 01/05/24 Unknown History 50 mg-325 mg-40 mg tablet fluoride (sodium) 1.1 % dental PO 04/19/22 01/05/24 Unknown History paste atorvastatin 20 mg tablet 20 mg PO QPM 12/25/22 01/05/24 Unknown History omeprazole 20 mg capsule,delayed 40 mg PO DAILY 01/30/23 02/01/24 Unknown History release metformin 750 mg tablet,extended 750 mg PO BID 07/18/23 01/05/24 Unknown History release 24 hr apixaban 5 mg tablet (Eliquis) 5 mg PO BID 01/05/24 02/01/24 Unknown History mecobalamin (vitamin B12) 1,000 1,000 mcg PO DAILY 01/05/24 01/05/24 Unknown History mcg lozenges miconazole nitrate 2 % topical topical 01/05/24 01/05/24 Unknown History powder (Antifungal (miconazole)) semaglutide (weight loss) 0.5 1 mg subcut QWEEK 01/05/24 01/05/24 Unknown History mg/0.5 mL subcutaneous pen injector oxybutynin chloride 5 mg 5 mg PO DAILY 02/02/24 Unknown History tablet,extended release 24 hr tolterodine 2 mg capsule,extended 2 mg PO DAILY 02/02/24 Unknown History release 24 hr tolterodine 4 mg capsule,extended 4 mg PO DAILY 02/02/24 Unknown History release 24 hr vibegron 75 mg tablet (Gemtesa) 75 mg PO DAILY 02/02/24 Unknown History Physical Exam 2 Vital Signs: Vital Signs: Last Vital Signs Temp 98.5 F 02/02/24 08:14 Pulse 60 02/02/24 08:34 Resp 18 02/02/24 08:34 BP 126/89 02/02/24 08:37 Pulse Ox 95 02/02/24 08:14 O2 Del Method Nasal Cannula 02/02/24 08:14 O2 Flow Rate 4 02/02/24 08:14 Oxygen Flow Rate 2 02/01/24 18:25 BMI result Body Mass Index 31.7 Const: General: cooperative, alert, awake and in distress mild and respiratory Nutritional Appearance: obese Orientation/consciousness: patient oriented x3 HEENT: Head: Yes normocephalic and Yes atraumatic Neck: Neck: Yes trachea midline, Yes supple and Yes JVD Resp: Effort & Inspection: normal respiratory effort Auscultation: wheezes and diminished lung sounds Cardio: Jugular venous distension: JVD Rhythm: abnormal rhythm with ectopic beats Heart sounds: S1 normal heart sound present, S2 normal heart sound present, no click, no gallops and no murmurs GI: Inspection: Yes obesity Auscultation: normal bowel sounds Skin: General skin exam: no rashes or lesions noted and ecchymosis Neuro: General: patient oriented x3 and no focal motor deficits Extrem: General: No clubbing, No cyanosis and Yes edema Psych: Appearance: grossly normal Objective Labs and Meds 02/02/24 04:56 02/02/24 04:56 Lab results: Laboratory Results - last 24 hr 02/01/24 02/01/24 02/01/24 13:15 15:10 15:23 WBC 4.6 L RBC 4.32 L Hgb 13.0 L Hct 38.0 L MCV 88.0 MCH 30.1 MCHC 34.2 RDW 14.3 Plt Count 90 L MPV 10.5 Immature Gran % (Auto) 0.4 Neut % (Auto) 76.2 H Lymph % (Auto) 13.3 L [place] % (Auto) 7.7 Eos % (Auto) 1.5 Baso % (Auto) 0.9 Lymph # (Auto) 0.6 L [place] # (Auto) 0.4 Eos # (Auto) 0.1 Baso # (Auto) 0.0 Abs Immat Gran (auto) 0.02 Absolute Neuts (auto) 3.5 Absolute Nucleated RBC 0.000 Nucleated RBC % (auto) 0.0 PT 17.9 H INR 1.5 H APTT 36.9 H Sodium 145 Potassium 3.4 Chloride 107 Carbon Dioxide 27 Anion Gap 14 BUN 14 Creatinine 0.73 Estim Creat Clear Calc 108.4 Estimated GFR > 60 POC Glucose Random Glucose 103 Lactic Acid 1.2 Calcium 9.8 Total Bilirubin 1.4 H AST 24 ALT 18 Alkaline Phosphatase 49 Troponin I High Sens 8.2 D B-Natriuretic Peptide 185 H Total Protein 6.9 Albumin 3.9 Influenza Type A (PCR) NEGATIVE Influenza Type B (PCR) NEGATIVE RSV RNA Qual (PCR) NEGATIVE SARS-CoV-2 RNA (RT-PCR) NEGATIVE S. pyogenes GrpA JALIL Negative Negative 02/01/24 02/01/24 02/02/24 18:37 21:14 04:56 WBC 5.0 RBC 4.25 L Hgb 12.7 L Hct 37.3 L MCV 87.8 MCH 29.9 MCHC 34.0 RDW 14.2 Plt Count 91 L MPV 10.1 Immature Gran % (Auto) 0.2 Neut % (Auto) 89.2 H Lymph % (Auto) 6.6 L [place] % (Auto) 3.8 Eos % (Auto) 0.0 Baso % (Auto) 0.2 Lymph # (Auto) 0.3 L [place] # (Auto) 0.2 Eos # (Auto) 0.0 Baso # (Auto) 0.0 Abs Immat Gran (auto) 0.01 Absolute Neuts (auto) 4.5 Absolute Nucleated RBC 0.000 Nucleated RBC % (auto) 0.0 PT INR APTT Sodium 142 Potassium 3.0 L Chloride 105 Carbon Dioxide 23 Anion Gap 17 BUN 12 Creatinine 0.73 Estim Creat Clear Calc 108.4 Estimated GFR > 60 POC Glucose 196 H Random Glucose 161 H Lactic Acid Calcium 8.4 D Total Bilirubin AST ALT Alkaline Phosphatase Troponin I High Sens 8.0 B-Natriuretic Peptide 275 H Total Protein Albumin Influenza Type A (PCR) Influenza Type B (PCR) RSV RNA Qual (PCR) SARS-CoV-2 RNA (RT-PCR) S. pyogenes GrpA JALIL 02/02/24 06:58 WBC RBC Hgb Hct MCV MCH MCHC RDW Plt Count MPV Immature Gran % (Auto) Neut % (Auto) Lymph % (Auto) [place] % (Auto) Eos % (Auto) Baso % (Auto) Lymph # (Auto) [place] # (Auto) Eos # (Auto) Baso # (Auto) Abs Immat Gran (auto) Absolute Neuts (auto) Absolute Nucleated RBC Nucleated RBC % (auto) PT INR APTT Sodium Potassium Chloride Carbon Dioxide Anion Gap BUN Creatinine Estim Creat Clear Calc Estimated GFR POC Glucose 150 H Random Glucose Lactic Acid Calcium Total Bilirubin AST ALT Alkaline Phosphatase Troponin I High Sens B-Natriuretic Peptide Total Protein Albumin Influenza Type A (PCR) Influenza Type B (PCR) RSV RNA Qual (PCR) SARS-CoV-2 RNA (RT-PCR) S. pyogenes GrpA JALIL EKG shows atrial flutter with variable conduction with right bundle-branch block Imaging Radiologist's impression: Impressions Chest X-Ray 02/01/24 12:49 IMPRESSION: * There is a 3.9 cm nodular opacity in medial right lung base, unclear if this could correspond to a prominent hilar structure such as a dilated pulmonary artery versus an infrahilar lesion and recommend correlation with contrast-enhanced CT chest. * New small bilateral pleural effusions with streaky bibasilar opacities which may reflect atelectasis given effusions with superimposed aspiration or infection. * Bronchial wall thickening which can be seen with a small airways process such as asthma or atypical/viral infection. Electronically signed by: Morena Chi MD 02/01/2024 02:08 PM EDT Chest CTA 02/01/24 16:43 IMPRESSION: No evidence of pulmonary embolism. Findings suggesting pulmonary edema with [id number] bilateral pleural effusions. Additional findings, as above. Electronically signed by: Mart Parikh MD 02/01/2024 05:31 PM EDT Assessment and Plan (1) Heart failure: Status: Acute New onset decompensated congestive heart failure preserved LV ejection fraction patient with prior bioprosthetic mitral valve replacement with left atrial enlargement most likely related to new onset atrial flutter with loss of AV synchrony. Clinically still appears to be in heart failure with fluid overload. Continue IV diuresis, will increase Lasix to 20 mg IV b.i.d.. Strict intake and output chart needs to be pursued. Replace potassium. Please check magnesium. Add Aldactone 12.5 mg to his regimen. Will continue to monitor him. Continue to trend his electrolytes and renal function as well as BNP. Will continue to monitor and will most likely benefit from rhythm control approach as planned from before. (2) Atrial flutter: Status: Acute Atrial flutter, new onset few weeks ago, coming with decompensated congestive heart failure related to loss of AV synchrony. Question mitral valve dysfunction related to prosthetic dysfunction. Will continue to pursue rhythm control approach. Continue amiodarone loading 400 mg b.i.d. till tomorrow and switch to 200 mg daily on Friday. Continue Eliquis therapy. Plan for synchronized cardioversion if clinically stable and improved on Friday. Will follow with you Procedures Date of Service Date of Service: 02/02/24
--- NOTE | 2024-02-02 09:46 | HO.PM.IMPN ---
Subjective Subjective Date of Service: 02/02/24 Interval History: f/u on heart failure exacerbation is feeling much better today Physical Exam Vital Signs: Vital Signs: Last Vital Signs Temp 98.5 F 02/02/24 08:14 Pulse 60 02/02/24 08:34 Resp 18 02/02/24 08:34 BP 126/89 02/02/24 08:37 Pulse Ox 95 02/02/24 08:14 O2 Del Method Nasal Cannula 02/02/24 08:14 O2 Flow Rate 4 02/02/24 08:14 Oxygen Flow Rate 2 02/01/24 18:25 BMI result Body Mass Index 31.7 General: AO X 3, no acute distress Resp: CTA bilateral, 1 + edema CVS: S1,S2, iregular iregular, GI: +BS, NT, no distention Skin: No rash Neuro: motor grossly intact Psych: appropriate affect Objective Data Active Medications Acetaminophen (Acetaminophen 325 Mg Tablet) 650 mg PO Q6H PRN PRN Reason: Pain, Mild (Pain Scale 1-3), fever or headache Albuterol/Ipratropium (Albuterol/Iprat 2.5/0.5mg 3 Ml Ampul.Neb) 3 ml INHALE RQ4H WHILE AWAKE [facility] Last Admin: 02/02/24 08:34 Dose: 3 ml Documented By: LM Amiodarone HCl (Amiodarone Hcl 200 Mg Tablet) 400 mg PO BID [facility] Last Admin: 02/02/24 08:37 Dose: 400 mg Documented By: NELLIE Apixaban (Apixaban 5 Mg Tablet) 5 mg PO BID [facility] Last Admin: 02/02/24 08:37 Dose: 5 mg Documented By: NELLIE Calcium Carbonate (Calcium Carbonate 750 Mg Tab.Chew) 750 mg PO Q4H PRN PRN Reason: Heartburn Finasteride (Finasteride 5 Mg Tablet) 5 mg PO BEDTIME [facility] Last Admin: 02/01/24 21:11 Dose: Not Given Documented By: BROCK Non-Admin Reason: Duplicate Order Furosemide (Furosemide 20 Mg/2 Ml Vial) 20 mg IVPUSH BID@0900,1800 [facility]; Protocol Glucose (Glucose Gel 15 Gm Gel..Gram.) 15 gm PO Q15M PRN; Protocol PRN Reason: per Hypoglycemia Standing Ord. Guaifenesin (Guaifenesin 200 Mg/10 Ml 10 Ml Liquid) 10 ml PO Q4H PRN PRN Reason: Cough Dextrose (D10) 250 mls @ 750 mls/hr IV Q15M PRN; Protocol PRN Reason: per Hypoglycemia Standing Ord. Doxycycline Hyclate 100 mg/ (Sodium Chloride) 250 mls @ 166.67 mls/hr IV Q12H [facility] Last Infusion: 02/02/24 09:05 Dose: Infused Documented By: NELLIE Insulin Human Lispro (Insulin Lispro 100 Unit/Ml 3 Ml Vial) 0 unit SUBCUT QIDACHS [facility]; Protocol Last Admin: 02/02/24 07:20 Dose: Not Given Documented By: NELLIE Non-Admin Reason: No Insulin Coverage Magnesium Hydroxide (Milk Of Magnesia 30 Ml Oral.Susp) 30 ml PO DAILY PRN PRN Reason: Constipation Melatonin (Melatonin 3 Mg Tablet) 6 mg PO BEDTIME PRN PRN Reason: Insomnia Montelukast Sodium (Montelukast Sodium 10 Mg Tablet) 10 mg PO DAILY [facility] Last Admin: 02/02/24 08:37 Dose: 10 mg Documented By: NELLIE Non-Formulary Medication (Tadalafil [Cialis]) 5 mg PO BEDTIME [facility] Omeprazole (Omeprazole 40 Mg Capsule.Dr) 40 mg PO DAILY@0630 [facility] Last Admin: 02/02/24 06:01 Dose: 40 mg Documented By: BROCK Sodium Chloride (0.9 % Sodium Chloride Flush 3 Ml Syringe) [facility] Last Admin: 02/02/24 07:27 Dose: Not Given Documented By: NELLIE Non-Admin Reason: IV Running Spironolactone (Spironolactone 25 Mg Tablet) 12.5 mg PO DAILY [facility]; Protocol Labs 02/02/24 04:56 02/02/24 04:56 Labs: Laboratory Results - last 24 hr 02/01/24 02/01/24 02/01/24 13:15 15:10 15:23 MCV 88.0 MCH 30.1 MCHC 34.2 RDW 14.3 Plt Count 90 L MPV 10.5 Immature Gran % (Auto) 0.4 Neut % (Auto) 76.2 H Lymph % (Auto) 13.3 L [place] % (Auto) 7.7 Eos % (Auto) 1.5 Baso % (Auto) 0.9 Lymph # (Auto) 0.6 L [place] # (Auto) 0.4 Eos # (Auto) 0.1 Baso # (Auto) 0.0 Abs Immat Gran (auto) 0.02 Absolute Neuts (auto) 3.5 Absolute Nucleated RBC 0.000 Nucleated RBC % (auto) 0.0 PT 17.9 H INR 1.5 H APTT 36.9 H Anion Gap 14 Estim Creat Clear Calc 108.4 Estimated GFR > 60 POC Glucose Random Glucose 103 Lactic Acid 1.2 Calcium 9.8 Total Bilirubin 1.4 H AST 24 ALT 18 Alkaline Phosphatase 49 Troponin I High Sens 8.2 D B-Natriuretic Peptide 185 H Total Protein 6.9 Albumin 3.9 Influenza Type A (PCR) NEGATIVE Influenza Type B (PCR) NEGATIVE RSV RNA Qual (PCR) NEGATIVE SARS-CoV-2 RNA (RT-PCR) NEGATIVE S. pyogenes GrpA JALIL Negative Negative 02/01/24 02/01/24 02/02/24 18:37 21:14 04:56 MCV 87.8 MCH 29.9 MCHC 34.0 RDW 14.2 Plt Count 91 L MPV 10.1 Immature Gran % (Auto) 0.2 Neut % (Auto) 89.2 H Lymph % (Auto) 6.6 L [place] % (Auto) 3.8 Eos % (Auto) 0.0 Baso % (Auto) 0.2 Lymph # (Auto) 0.3 L [place] # (Auto) 0.2 Eos # (Auto) 0.0 Baso # (Auto) 0.0 Abs Immat Gran (auto) 0.01 Absolute Neuts (auto) 4.5 Absolute Nucleated RBC 0.000 Nucleated RBC % (auto) 0.0 PT INR APTT Anion Gap 17 Estim Creat Clear Calc 108.4 Estimated GFR > 60 POC Glucose 196 H Random Glucose 161 H Lactic Acid Calcium 8.4 D Total Bilirubin AST ALT Alkaline Phosphatase Troponin I High Sens 8.0 B-Natriuretic Peptide 275 H Total Protein Albumin Influenza Type A (PCR) Influenza Type B (PCR) RSV RNA Qual (PCR) SARS-CoV-2 RNA (RT-PCR) S. pyogenes GrpA JALIL 02/02/24 06:58 MCV MCH MCHC RDW Plt Count MPV Immature Gran % (Auto) Neut % (Auto) Lymph % (Auto) [place] % (Auto) Eos % (Auto) Baso % (Auto) Lymph # (Auto) [place] # (Auto) Eos # (Auto) Baso # (Auto) Abs Immat Gran (auto) Absolute Neuts (auto) Absolute Nucleated RBC Nucleated RBC % (auto) PT INR APTT Anion Gap Estim Creat Clear Calc Estimated GFR POC Glucose 150 H Random Glucose Lactic Acid Calcium Total Bilirubin AST ALT Alkaline Phosphatase Troponin I High Sens B-Natriuretic Peptide Total Protein Albumin Influenza Type A (PCR) Influenza Type B (PCR) RSV RNA Qual (PCR) SARS-CoV-2 RNA (RT-PCR) S. pyogenes GrpA JALIL Assessment and Plan (1) Heart failure: Status: Acute Plan 68-year-old male with history of asthma/COPD overlap not on home O2, [id number]-tjevrigrp type 2 diabetes, GERD, BPH, hyperlipidemia, PTSD, hypertension, ANJELICA on CPAP, mitral regurgitation, persistent atrial fibrillation scheduled for cardioversion on Friday anticoagulated with Eliquis admitted for CHF exacerbation #acute on chronic HFpEF -IV lasix 20 bid, aldacton 12.5 mg -monitor i/o, bmp, bnp and electrolytes -cardiology following -echo 12/2023 with normal LV systolic function with ef 55-60%, indeterminate diastolic dysfunction #Viral URI with acute mild COPD exacerbation -clear/blood tinged sputum (on eliquis), no shay hemoptysis. No focal consolidation on imaging -negative for COVID-19, RSV, influenza. Check RPP -IV steroid given in the ED, no indication for addtional steroid at this time -DuoNebs q.4h while awake -doxycycline 100mg bid x 5 for bronchitis -symptomatic management # persistent atrial fibrillation with slow ventricular rate -rates 50s on average, not on rate control medications -continue Eliquis for anticoagulation -scheduled for cardioversion on Friday. Cardiology consult # lpa-driluar-romufqqyw type 2 diabetes -POC glucose, diabetic diet -Humalog on sliding scale -hold metformin, Ozempic. Monitor for steroid induced hyperglycemia # ANJELICA -CPAP bedtime # BPH -continue finasteride, tadalafil #hypertension -monitor blood pressures, not on antihypertensives -feels elevated blood pressures are related to anxiety. Give Ativan x1. Consider additional therapy if remains hypertensive # chronic normocytic anemia -H/H above transfusion threshold # chronic thrombocytopenia-mild -monitor platelets, can continue Eliquis DVT prophylaxis-Eliquis Full code need for inpt: IV diuretics for acute heart failure Quality Stroke Does the patient have a stroke diagnosis?: No VTE Prior VTE?: No VTE Risk Level:: Medical - moderate - high VTE Device Contraindication: Treatment Not Indicated VTE Drug Contraindication: N/A - Med Ordered
--- NOTE | 2024-02-02 10:07 | PHA.MEDREC ---
Addendum entered by Yolanda Marrero RPh 02/02/24 10:19: reviewed by [facility]. Original Note: Pharmacy Consult ? Medication Reconciliation Pharmacy has completed the medication reconciliation. Spoke to patient to confirm medications. Patient wasn't sure on all his meds. He called his and I spoke to her over the phone. was able to confirm patients medications. states patient in no longer on [place] 1.1% dental salutation, Oxybutynin 5 mg, Tolterodine, and Gemtesa 75 Mg. states patient takes Semaglutide 0.5 mg every Friday, last does was , however there are no claim history. Metformin 750 mg , last filled 02-13-23 for 90 days patient needs to Hold for 3 days due to a cat scan with IV contrast, last dose was Friday. states patient takes Atorvastain 20 mg, however no claim history, Combivent inhaler is only as needed.
[2024-02-02] MEDS: Spironolactone 25 MG TABLET 12.5 MG PO (10:28)
--- NOTE | 2024-02-02 11:45 | MHC.CM.PN ---
PT REPORTS HE LIVES WITH HIS AND ADULT CHILD PT IS INDEPENDENT WITH CARE AND USES A CANE PT HAS A HCP ON FILE PCP: FREDDY LOPEZ [facility] DELIVERED DCP: HOME NO SERVICES VIA FAMILY TRANSPORT
[2024-02-02] MEDS: Cyanocobalamin (Vitamin B-12) 1,000 MCG TABLET 1000 MCG PO (12:24)
[2024-02-02] MEDS: Cholecalciferol (Vitamin D3) 25 MCG TABLET 50 MCG PO (12:24)
[2024-02-02 12:32] LABS: Glucose, Whole Blood 147 mg/dL (60-115)
[2024-02-02] MEDS: Fluticasone Propionate Nasal 16 GM SPRAY 1 SPRAY NOSTRIL-B ×2 (13:07→20:26)
[2024-02-02] MEDS: Potassium Chloride Packet 20 MEQ PACKET 40 MEQ PO (13:44)
[2024-02-02] MEDS: clonazePAM 0.5 MG TABLET PO (16:46)
--- NOTE | 2024-02-02 16:47 | PC.NURSE ---
pt verbalizes an increase in anxiety at this time - prn medication utilized. effectiveness pending. admission worksheet also complete - pt waiting for transportation to bed assigment at this time.
[2024-02-02 17:44] LABS: Glucose, Whole Blood 156 mg/dL (60-115)
[2024-02-02] MEDS: Insulin Lispro 100 UNIT/ML 3 ML VIAL SUBCUT (18:08)
[2024-02-02] MEDS: Atorvastatin Calcium 20 MG TABLET PO (21:03)
[2024-02-02] MEDS: Finasteride 5 MG TABLET PO (21:03)
[2024-02-02 21:52] LABS: Glucose, Whole Blood 144 mg/dL (60-115)
[2024-02-03] VITALS (9 sets, daily range): BP systolic 135–174; BP diastolic 70–90; PULSE 61–77; RESP 16–20; TEMP 36.1–36.8; O2SAT 92–96
[2024-02-03 06:37] LABS: Anion Gap 13 (12-20); Blood Urea Nitrogen 16 mg/dL (9-16); Calcium 8.7 mg/dL (8.4-10.2); Carbon Dioxide 29 mmol/L (22-29); Chloride 104 mmol/L (96-108); Creatinine Clr Calc Pharmacy 104.1; Estimated Glomerular Filt Rate > 60; Glucose Random 125 mg/dL (60-115); Potassium 3.1 mmol/L (3.3-5.1); Sodium 143 mmol/L (135-145)
[2024-02-03 06:49] LABS: B Type Natriuretic Peptide 98 pg/mL (<100)
[2024-02-03 07:34] LABS: Glucose, Whole Blood 126 mg/dL (60-115)
[2024-02-03] MEDS: Omeprazole 40 MG CAPSULE.DR PO (08:22)
[2024-02-03] MEDS: Amiodarone HCL 200 MG TABLET 400 MG PO ×2 (08:22→21:32)
[2024-02-03] MEDS: Doxycycline Hyclate 100 MG in 0.9 % Sodium Chloride 250 ML 166.67 MG IV ×2 (08:22→21:30)
[2024-02-03] MEDS: Cholecalciferol (Vitamin D3) 25 MCG TABLET 50 MCG PO (08:22)
[2024-02-03] MEDS: Montelukast Sodium 10 MG TABLET PO (08:22)
[2024-02-03] MEDS: Cyanocobalamin (Vitamin B-12) 1,000 MCG TABLET 1000 MCG PO (08:22)
[2024-02-03] MEDS: Furosemide 20 MG/2 ML VIAL IVPUSH ×2 (08:23→17:15)
[2024-02-03] MEDS: Spironolactone 25 MG TABLET 12.5 MG PO (08:23)
[2024-02-03] MEDS: Apixaban 5 MG TABLET PO ×2 (08:23→21:33)
[2024-02-03] MEDS: clonazePAM 0.5 MG TABLET PO ×2 (08:23→21:33)
[2024-02-03] MEDS: 0.9 % Sodium Chloride Flush 3 ML SYRINGE IVFLUSH ×2 (08:24→16:22)
[2024-02-03] MEDS: Albuterol/Iprat 2.5/0.5MG 3 ML AMPUL.NEB INHALE ×3 (08:54→20:45)
[2024-02-03] MEDS: Fluticasone Propionate 250 MCG BLST.W.DEV 2 PUFF INHALE ×2 (08:54→20:45)
--- NOTE | 2024-02-03 09:34 | PM.PNCARD ---
Subjective Subjective Date of Service: 02/03/24 Principal diagnosis: Atrial flutter/fibrillation, CHF. Interval history: Patient is feeling a lot better. Overall negative balance of about 4700 cc. Leg edema is improved significantly. Complains of cough productive of bloody streaked phlegm but this is improving. His more now brownish phlegm. He is currently getting antibiotics. He denies any palpitations. Overnight noted to have some slow heart rate response blood pressure is well controlled. Review of Systems Constitutional: Reports no additional constitutional complaints Cardiovascular: Denies chest pain, Denies lightheadedness, Denies Loss of Consciousness and Reports dyspnea on exertion Respiratory: Reports change in phlegm color, Reports excessive phlegm production and Reports dyspnea on exertion Gastrointestinal: Reports no additional gastrointestinal complaints Reports system reviewed and no additional complaints, except as documented Physical Exam Vital Signs: Last Vital Signs Temp 97.0 F 02/03/24 07:47 Pulse 65 02/03/24 08:56 Resp 18 02/03/24 08:56 BP 174/90 H 02/03/24 07:47 Pulse Ox 95 02/03/24 07:47 O2 Del Method Nasal Cannula 02/03/24 07:47 O2 Flow Rate 2 02/03/24 07:47 Oxygen Flow Rate 2 02/01/24 18:25 BMI result Body Mass Index 31.7 Const General: cooperative, alert, awake and in distress mild and respiratory Nutritional Appearance: obese Orientation/consciousness: patient oriented x3 HEENT Head: Yes normocephalic and Yes atraumatic Neck Neck: Yes trachea midline, Yes supple and Yes no JVD Resp Effort & Inspection: normal respiratory effort Auscultation: wheezes and diminished lung sounds Cardio Jugular venous distension: JVD Rhythm: abnormal rhythm with ectopic beats Heart sounds: S1 normal heart sound present, S2 normal heart sound present, no click, no gallops and no murmurs GI Inspection: Yes obesity Auscultation: normal bowel sounds Skin General skin exam: no rashes or lesions noted and ecchymosis Neuro General: patient oriented x3 and no focal motor deficits Extrem General: No clubbing, No cyanosis and Yes edema (Improved) Psych Appearance: grossly normal Objective Labs and Meds 02/02/24 04:56 02/03/24 06:01 Lab results: Laboratory Results - last 24 hr 02/02/24 02/02/24 02/02/24 12:19 17:33 21:13 Sodium Potassium Chloride Carbon Dioxide Anion Gap BUN Creatinine Estim Creat Clear Calc Estimated GFR POC Glucose 147 H 156 H 144 H Random Glucose Calcium B-Natriuretic Peptide 02/03/24 02/03/24 06:01 07:30 Sodium 143 Potassium 3.1 L Chloride 104 Carbon Dioxide 29 Anion Gap 13 BUN 16 Creatinine 0.76 Estim Creat Clear Calc 104.1 Estimated GFR > 60 POC Glucose 126 H Random Glucose 125 H Calcium 8.7 B-Natriuretic Peptide 98 Progress Note: A&P Assessment and plan (1) CHF exacerbation: Status: Acute Assessment and Plan: CHF exacerbation along with possible COPD exacerbation with productive phlegm. Currently getting antibiotics. Atrial fib improved significantly with diuresis. Continue diuresis for 1 more day. Most likely CHF exacerbation due to recent onset atrial flutter with loss of AV synchrony. Pursue rhythm control approach with synchronized cardioversion tomorrow. Increase spironolactone to 25 mg daily. Follow renal function and potassium level tomorrow. Strict intake and output chart needs to be pursued. (2) Atrial flutter: Status: Acute Assessment and Plan: Recent onset atrial flutter with patient's underlying structural heart issues with prior mitral valve replacement. Currently being loaded with amiodarone. Switch to 200 mg daily tomorrow. Pursuing synchronized cardioversion tomorrow. Please keep him NPO. Continue Eliquis therapy. Will follow with you Time Spent With Patient Time: Total time managing care of this patient today ____ minutes. Progress Note: Quality Stroke Does the patient have a stroke diagnosis?: No Procedures Date of Service Date of Service: 02/03/24
--- NOTE | 2024-02-03 10:17 | MHC.CM.PN ---
EMR REVIEWED, PER CARDIO WILL CONT TO DIURESE ONE MORE DAY AND PLAN FOR CARDIOVERSION TOMORROW 02/03, CM WILL CONT TO FOLLOW DC NEEDS.
[2024-02-03 10:55] LABS: Glucose, Whole Blood 129 mg/dL (60-115)
--- NOTE | 2024-02-03 15:24 | HO.PM.IMPN ---
Subjective Subjective Date of Service: 02/03/24 Interval History: afib ,hypokalemia Review of Systems feeling better denies any chest pain or sob productive cough Physical Exam Vital Signs: Vital Signs: Last Vital Signs Temp 97.0 F 02/03/24 15:18 Pulse 68 02/03/24 15:18 Resp 16 02/03/24 15:18 BP 159/79 H 02/03/24 15:18 Pulse Ox 94 02/03/24 15:18 O2 Del Method Nasal Cannula 02/03/24 15:18 O2 Flow Rate 2 02/03/24 15:18 Oxygen Flow Rate 2 02/01/24 18:25 BMI result Body Mass Index 31.7 Appearance: Alert.? Oriented X3.? has cough cvs: rrr, [id number] , trace edema res: air entry fair , has few scatter rhonchii abd: no rebound or guarding ,nt, bs present. ext pulses present , no cyanosis . neuro: axo3 , nonfocal. Objective Data Active Medications Acetaminophen (Acetaminophen 325 Mg Tablet) 650 mg PO Q6H PRN PRN Reason: Pain, Mild (Pain Scale 1-3), fever or headache Acetaminophen/Butalbital/Caffeine (Butalb/Acetamin/Caff 50/325/40 Tablet) 1 tab PO DAILY PRN PRN Reason: Migraine Headache Albuterol/Ipratropium (Albuterol/Iprat 2.5/0.5mg 3 Ml Ampul.Neb) 3 ml INHALE RQ4H WHILE AWAKE [facility] Last Admin: 02/03/24 08:54 Dose: 3 ml Documented By: YOVANY Albuterol/Ipratropium (Albuterol/Iprat 2.5/0.5mg 3 Ml Ampul.Neb) 3 ml INHALE Q4H PRN PRN Reason: Shortness Of Breath Or Wheezing Amiodarone HCl (Amiodarone Hcl 200 Mg Tablet) 400 mg PO BID [facility] Last Admin: 02/03/24 08:22 Dose: 400 mg Documented By: DOYLE Apixaban (Apixaban 5 Mg Tablet) 5 mg PO BID [facility] Last Admin: 02/03/24 08:23 Dose: 5 mg Documented By: DOYLE Atorvastatin Calcium (Atorvastatin Calcium 20 Mg Tablet) 20 mg PO BEDTIME [facility] Last Admin: 02/02/24 21:03 Dose: 20 mg Documented By: PAPA Calcium Carbonate (Calcium Carbonate 750 Mg Tab.Chew) 750 mg PO Q4H PRN PRN Reason: Heartburn Clonazepam (Clonazepam 0.5 Mg Tablet) 0.5 mg PO DAILY PRN PRN Reason: Anxiety Last Admin: 02/03/24 08:23 Dose: 0.5 mg Documented By: DOYLE Cyanocobalamin (Cyanocobalamin (Vitamin B-12) 1,000 Mcg Tablet) 1,000 mcg PO DAILY [facility] Last Admin: 02/03/24 08:22 Dose: 1,000 mcg Documented By: DOYLE Finasteride (Finasteride 5 Mg Tablet) 5 mg PO BEDTIME [facility] Last Admin: 02/02/24 21:03 Dose: 5 mg Documented By: PAPA Fluticasone Propionate (Fluticasone Propionate Nasal 16 Gm [place]) 1 spray NOSTRIL-B DAILY [facility] Last Admin: 02/02/24 20:26 Dose: 1 spray Documented By: HELEN Fluticasone Propionate (Fluticasone Propionate 250 Mcg Blst.W.Dev) 2 puff INHALE RBID [facility] Last Admin: 02/03/24 08:54 Dose: 2 puff Documented By: YOVANY Furosemide (Furosemide 20 Mg/2 Ml Vial) 20 mg IVPUSH BID@0900,1800 [facility]; Protocol Last Admin: 02/03/24 08:23 Dose: 20 mg Documented By: DOYLE Glucose (Glucose Gel 15 Gm Gel..Gram.) 15 gm PO Q15M PRN; Protocol PRN Reason: per Hypoglycemia Standing Ord. Guaifenesin (Guaifenesin 200 Mg/10 Ml 10 Ml Liquid) 10 ml PO Q4H PRN PRN Reason: Cough Dextrose (D10) 250 mls @ 750 mls/hr IV Q15M PRN; Protocol PRN Reason: per Hypoglycemia Standing Ord. Doxycycline Hyclate 100 mg/ (Sodium Chloride) 250 mls @ 166.67 mls/hr IV Q12H [facility] Last Infusion: 02/03/24 10:01 Dose: Infused Documented By: DOYLE Insulin Human Lispro (Insulin Lispro 100 Unit/Ml 3 Ml Vial) 0 unit SUBCUT QIDACHS [facility]; Protocol Last Admin: 02/03/24 11:43 Dose: Not Given Documented By: DOYLE Non-Admin Reason: No Insulin Coverage Magnesium Hydroxide (Milk Of Magnesia 30 Ml Oral.Susp) 30 ml PO DAILY PRN PRN Reason: Constipation Melatonin (Melatonin 3 Mg Tablet) 6 mg PO BEDTIME PRN PRN Reason: Insomnia Montelukast Sodium (Montelukast Sodium 10 Mg Tablet) 10 mg PO DAILY [facility] Last Admin: 02/03/24 08:22 Dose: 10 mg Documented By: DOYLE Omeprazole (Omeprazole 40 Mg Capsule.Dr) 40 mg PO DAILY@0630 [facility] Last Admin: 02/03/24 08:22 Dose: 40 mg Documented By: DOYLE Potassium Chloride (Potassium Chloride Er 20 Meq Tab.Er.Prt) 40 meq PO ONCE ONE Stop: 02/03/24 15:25 Sodium Chloride (0.9 % Sodium Chloride Flush 3 Ml Syringe) 3 ml IVFLUSH QSHIFT [facility] Last Admin: 02/03/24 08:24 Dose: 3 ml Documented By: DOYLE Spironolactone (Spironolactone 25 Mg Tablet) 12.5 mg PO DAILY [facility]; Protocol Last Admin: 02/03/24 08:23 Dose: 12.5 mg Documented By: DOYLE Vitamin D (Cholecalciferol (Vitamin D3) 25 Mcg Tablet) 50 mcg PO DAILY [facility] Last Admin: 02/03/24 08:22 Dose: 50 mcg Documented By: DOYLE Labs 02/02/24 04:56 02/03/24 06:01 Labs: Laboratory Results - last 24 hr 02/02/24 02/02/24 02/03/24 17:33 21:13 06:01 Anion Gap 13 Estim Creat Clear Calc 104.1 Estimated GFR > 60 POC Glucose 156 H 144 H Random Glucose 125 H Calcium 8.7 B-Natriuretic Peptide 98 02/03/24 02/03/24 07:30 10:51 Anion Gap Estim Creat Clear Calc Estimated GFR POC Glucose 126 H 129 H Random Glucose Calcium B-Natriuretic Peptide Microbiology Microbiology Results: Microbiology 02/01/24 15:23 Blood Culture - Preliminary Blood - Venous No growth after 24 hours. 02/01/24 15:10 Blood Culture - Preliminary Blood - Venous No growth after 24 hours. Assessment and Plan (1) CHF exacerbation: Status: Acute Assessment and Plan: 68-year-old male with history of asthma/COPD overlap not on home O2, sib-wanapnr-vavahtrvq type 2 diabetes, GERD, BPH, hyperlipidemia, PTSD, hypertension, ANJELICA on CPAP, mitral regurgitation, persistent atrial fibrillation scheduled for cardioversion on Friday anticoagulated with Eliquis admitted for CHF exacerbation acute on chronic HFpEF i/o 4.8 liter negative echo 12/2023 with normal LV systolic function with ef 55-60%, indeterminate diastolic dysfunction continue IV lasix 20 bid, aldacton 12.5 mg monitor i/o, bmp, bnp and electrolytes cardiology following Viral URI with acute mild COPD exacerbation clear/blood tinged sputum (on eliquis), no shay hemoptysis. No focal consolidation on imaging negative for COVID-19, RSV, influenza. RPP pending continue DuoNebs q.4h while awake,doxycycline 100mg bid x 5 for bronchitis,symptomatic management. persistent atrial fibrillation with slow ventricular rate Cardiology consult noted-Recent onset atrial flutter with patient's underlying structural heart issues with prior mitral valve replacement. started on amiodarone load,continue Eliquis for anticoagulation, npo , cardioversion in am . yfi-lqyfnkn-rhaoywlky type 2 diabetes -POC glucose, diabetic diet -Humalog on sliding scale -hold metformin, Ozempic. Monitor for steroid induced hyperglycemia ANJELICA-CPAP bedtime BPH-continue finasteride, tadalafil Hypertension -monitor blood pressures, not on antihypertensives -feels elevated blood pressures are related to anxiety. Give Ativan x1. Consider additional therapy if remains hypertensive chronic normocytic anemia -H/H above transfusion threshold chronic thrombocytopenia-mild -monitor platelets, can continue Eliquis DVT prophylaxis-Eliquis Full code need for inpt: IV diuretics for acute heart failure-moniter i/o ,renal function and electrolytes monitering ,cardiology followup Quality Stroke Does the patient have a stroke diagnosis?: No VTE Prior VTE?: No VTE Risk Level:: Medical - moderate - high VTE Device Contraindication: Treatment Not Indicated VTE Drug Contraindication: N/A - Med Ordered
[2024-02-03] MEDS: Potassium Chloride ER 20 MEQ TAB.ER.PRT 40 MEQ PO (16:18)
[2024-02-03 16:24] LABS: Glucose, Whole Blood 157 mg/dL (60-115)
[2024-02-03] MEDS: Insulin Lispro 100 UNIT/ML 3 ML VIAL SUBCUT (17:14)
[2024-02-03 19:45] LABS: Glucose, Whole Blood 135 mg/dL (60-115)
[2024-02-03] MEDS: Atorvastatin Calcium 20 MG TABLET PO (21:33)
[2024-02-03] MEDS: Finasteride 5 MG TABLET PO (21:33)
[2024-02-04] VITALS (18 sets, daily range): BP systolic 122–168; BP diastolic 70–88; PULSE 58–80; RESP 15–22; TEMP 36.1–36.8; O2SAT 92–96
[2024-02-04] MEDS: Albuterol/Iprat 2.5/0.5MG 3 ML AMPUL.NEB INHALE ×4 (07:10→18:48)
[2024-02-04] MEDS: Fluticasone Propionate 250 MCG BLST.W.DEV 2 PUFF INHALE ×2 (07:11→18:48)
[2024-02-04 07:33] LABS: Anion Gap 12 (12-20); Blood Urea Nitrogen 14 mg/dL (9-16); Calcium 8.3 mg/dL (8.4-10.2); Carbon Dioxide 30 mmol/L (22-29); Chloride 104 mmol/L (96-108); Creatinine Clr Calc Pharmacy 114.7; Estimated Glomerular Filt Rate > 60; Glucose Random 140 mg/dL (60-115); Magnesium 1.8 mg/dL (1.6-2.6); Potassium 2.9 mmol/L (3.3-5.1); Sodium 143 mmol/L (135-145)
[2024-02-04 07:49] LABS: Glucose, Whole Blood 146 mg/dL (60-115)
[2024-02-04] MEDS: Cholecalciferol (Vitamin D3) 25 MCG TABLET 50 MCG PO (08:35)
[2024-02-04] MEDS: Apixaban 5 MG TABLET PO ×2 (08:35→20:20)
[2024-02-04] MEDS: Montelukast Sodium 10 MG TABLET PO (08:35)
[2024-02-04] MEDS: Spironolactone 25 MG TABLET 12.5 MG PO (08:36)
[2024-02-04] MEDS: Cyanocobalamin (Vitamin B-12) 1,000 MCG TABLET 1000 MCG PO (08:36)
[2024-02-04] MEDS: Amiodarone HCL 200 MG TABLET PO (08:44)
[2024-02-04] MEDS: Doxazosin Mesylate 2 MG TABLET 8 MG PO (08:44)
[2024-02-04] MEDS: Acetaminophen 325 MG TABLET 650 MG PO (08:44)
[2024-02-04] MEDS: Furosemide 20 MG/2 ML VIAL IVPUSH (08:45)
[2024-02-04] MEDS: Potassium Chloride/H20 10 MEQ/100 ML PIGGYBACK 100 MEQ IV ×4 (08:49→12:50)
[2024-02-04] MEDS: Doxycycline Hyclate 100 MG in 0.9 % Sodium Chloride 250 ML 166.67 MG IV (08:54)
[2024-02-04] MEDS: clonazePAM 0.5 MG TABLET PO (08:54)
[2024-02-04] MEDS: 0.9 % Sodium Chloride Flush 3 ML SYRINGE IVFLUSH ×3 (08:55→23:31)
[2024-02-04] MEDS: Fluticasone Propionate Nasal 16 GM SPRAY 1 SPRAY NOSTRIL-B (08:59)
[2024-02-04 09:18] LABS: Adenovirus PCR Not Detected (Not Detect.); Bordetella parapertussis PCR Not Detected (Not Detect.); Bordetella pertussis PCR Not Detected (Not Detect.); Chlamydia pneumoniae PCR Not Detected (Not Detect.); Coronavirus 229E PCR Not Detected (Not Detect.); Coronavirus HKU1 PCR Not Detected (Not Detect.); Coronavirus NL63 PCR Not Detected (Not Detect.); Coronavirus OC43 PCR Not Detected (Not Detect.); Human metapneumovirus PCR Not Detected (Not Detect.); Influenza A PCR Not Detected (Not Detect.); Influenza B PCR Not Detected (Not Detect.); Mycoplasma pneumoniae PCR Not Detected (Not Detect.); Parainfluenza 1 PCR Not Detected (Not Detect.); Parainfluenza 2 PCR Not Detected (Not Detect.); Parainfluenza 3 PCR Not Detected (Not Detect.); Parainfluenza 4 PCR Not Detected (Not Detect.); RSV PCR Not Detected (Not Detect.); Rhino/Enterovirus PCR Detected (Not Detect.)
[2024-02-04 10:05] LABS: SARS-CoV-2 PCR Not Detected (Not Detect.)
--- NOTE | 2024-02-04 11:36 | PM.PNCARD ---
Subjective Subjective Date of Service: 02/04/24 Principal diagnosis: Atrial flutter/fibrillation, CHF. Interval history: Patient feeling a whole lot better. Cough is improved. Breathing has significantly improved. Diagnose with rhino virus. Remains in atrial flutter. Noted potassium to be low Review of Systems Constitutional: Reports no additional constitutional complaints Cardiovascular: Reports no additional cardiovascular complaints Respiratory: Reports cough (Improving) and Denies hemoptysis Gastrointestinal: Reports no additional gastrointestinal complaints Psychiatric: Reports no additional psychiatric complaints Endocrine: Reports no additional endocrine complaints Physical Exam Vital Signs: Last Vital Signs Temp 97.5 F 02/04/24 07:57 Pulse 70 02/04/24 07:57 Resp 20 02/04/24 07:57 BP 145/84 H 02/04/24 07:57 Pulse Ox 93 02/04/24 07:57 O2 Del Method Nasal Cannula 02/04/24 07:57 O2 Flow Rate 2 02/04/24 07:57 Oxygen Flow Rate 2 02/01/24 18:25 BMI result Body Mass Index 31.7 Const General: cooperative, alert, awake and in distress mild and respiratory Nutritional Appearance: obese Orientation/consciousness: patient oriented x3 HEENT Head: Yes normocephalic and Yes atraumatic Neck Neck: Yes trachea midline, Yes supple and Yes no JVD Resp Effort & Inspection: normal respiratory effort Auscultation: wheezes and diminished lung sounds Cardio Jugular venous distension: JVD Rhythm: abnormal rhythm with ectopic beats Heart sounds: S1 normal heart sound present, S2 normal heart sound present, no click, no gallops and no murmurs GI Inspection: Yes obesity Auscultation: normal bowel sounds Skin General skin exam: no rashes or lesions noted and ecchymosis Neuro General: patient oriented x3 and no focal motor deficits Extrem General: No clubbing, No cyanosis and Yes edema (Improved) Psych Appearance: grossly normal Objective Labs and Meds 02/02/24 04:56 02/04/24 05:59 Lab results: Laboratory Results - last 24 hr 02/01/24 02/03/24 02/03/24 13:15 16:16 19:39 Hold Purple Top Sodium Potassium Chloride Carbon Dioxide Anion Gap BUN Creatinine Estim Creat Clear Calc Estimated GFR POC Glucose 157 H 135 H Random Glucose Calcium Magnesium Respiratory Panel [facility] Cancelled Adenovirus (Rapid PCR) Cancelled B.pert (TEM-PCR) Cancelled B.parapertussis DNA PCR Cancelled C. pneumoniae DNA (PCR) Cancelled Coronavirus OC43 (PCR) Cancelled Coronavirus HKU1 (PCR) Cancelled Coronavirus 229E (PCR) Cancelled Coronavirus NL63 (PCR) Cancelled Human Metapneumovir PCR Cancelled Influenza A (RT-PCR) Cancelled Influenza B (RT-PCR) Cancelled M. pneumoniae (PCR) Cancelled Parainfluenza 1 (PCR) Cancelled Parainfluenza 2 (PCR) Cancelled Parainfluenza 3 (PCR) Cancelled Parainfluenza 4 (PCR) Cancelled RSV (PCR) Cancelled Entero/Rhino (PCR) Cancelled SARS-CoV-2 RNA (RT-PCR) Cancelled 02/04/24 02/04/24 02/04/24 05:59 07:44 08:00 Hold Purple Top SEE NOTE Sodium 143 Potassium 2.9 L* Chloride 104 Carbon Dioxide 30 H Anion Gap 12 BUN 14 Creatinine 0.69 Estim Creat Clear Calc 114.7 Estimated GFR > 60 POC Glucose 146 H Random Glucose 140 H Calcium 8.3 L Magnesium 1.8 Respiratory Panel [facility] See Note Adenovirus (Rapid PCR) Not Detected B.pert (TEM-PCR) Not Detected B.parapertussis DNA PCR Not Detected C. pneumoniae DNA (PCR) Not Detected Coronavirus OC43 (PCR) Not Detected Coronavirus HKU1 (PCR) Not Detected Coronavirus 229E (PCR) Not Detected Coronavirus NL63 (PCR) Not Detected Human Metapneumovir PCR Not Detected Influenza A (RT-PCR) Not Detected Influenza B (RT-PCR) Not Detected M. pneumoniae (PCR) Not Detected Parainfluenza 1 (PCR) Not Detected Parainfluenza 2 (PCR) Not Detected Parainfluenza 3 (PCR) Not Detected Parainfluenza 4 (PCR) Not Detected RSV (PCR) Not Detected Entero/Rhino (PCR) Detected A SARS-CoV-2 RNA (RT-PCR) Not Detected Progress Note: A&P Assessment and plan (1) CHF exacerbation: Status: Acute Assessment and Plan: Patient admitted with CHF exacerbation with viral infection, rhino virus. Currently heart failure has improved significantly with diuresis. Can switch to oral diuretics. Potassium significantly depleted and now is already received 1 dose of IV potassium. Also recommend additional 80 mEq by mouth. Continue Aldactone therapy. Synchronized cardioversion later today after he has received his potassium. Anticipate discharge tomorrow. (2) Atrial flutter: Status: Acute Assessment and Plan: Has been switch to maintenance dose with amiodarone 200 mg. Continue full oral anticoagulation Eliquis. Plan for cardioversion later today. Already has received 40 mEq of K IV since morning and will additionally get 80 mEq p.o. now. Risks and benefits of cardioversion were discussed. Understands agrees. Will follow with him. Time Spent With Patient Time: Total time managing care of this patient today ____ minutes. Progress Note: Quality Stroke Does the patient have a stroke diagnosis?: No Procedures Date of Service Date of Service: 02/04/24
[2024-02-04] MEDS: Potassium Chloride ER 20 MEQ TAB.ER.PRT 40 MEQ PO ×2 (11:51→11:54)
[2024-02-04 12:19] LABS: Glucose, Whole Blood 117 mg/dL (60-115)
--- NOTE | 2024-02-04 13:52 | P.CONAN_ITS ---
HPI - Anesthesia Eval Consult details Narrative: 68 yo M admitted with atrial flutter and CHF exacerbation PMF Active Problems Active Problems: All Active Problems CHF exacerbation (Acute) Heart failure (Acute) COPD exacerbation (Acute) URI (upper respiratory infection) (Acute) CHF (congestive heart failure) (Acute) Pneumonia (Acute) Nocturia more than twice per night (Acute) Overactive bladder (Acute) Right knee pain (Acute) Rotator cuff insufficiency of left shoulder (Acute) Erectile dysfunction associated with type 2 diabetes mellitus (Acute) Left shoulder pain (Acute) Weak urinary stream (Acute) Skin lesion of left arm (Acute) PAC (premature atrial contraction) (Acute) Palpitations (Acute) Prosthetic valve dysfunction (Acute) Atrial flutter (Acute) Type 2 diabetes mellitus (Acute) BPH (benign prostatic hyperplasia) (Acute) S/P MVR (mitral valve replacement) (Acute) HTN (hypertension) (Acute) Past Medical History Medical History (Updated 02/03/24 @ 09:37 by James Fernando MD) Atrial flutter Elevated cholesterol History of GI diverticular bleed BPH (benign prostatic hyperplasia) History of blood transfusion GERD (gastroesophageal reflux disease) Type 2 diabetes mellitus Depression with anxiety PTSD (post-traumatic stress disorder) Migraine COPD, mild Asthma HTN (hypertension) Obstructive sleep apnea Enlarged RV (right ventricle) Mitral regurgitation Family History Family History Father Rheumatic fever Mother No problems noted. Sister Hx of aortic valve repair Brother Mitral valve replaced Family history of problems with anesthesia: No Surgical History Surgical History (Updated 02/02/24 @ 14:56 by Cassi Carpio RN) History of esophagogastroduodenoscopy (EGD) H/O colonoscopy History of excision of lesion (06/25/22) History of arthroscopy of right knee History of left inguinal hernia repair History of repair of right rotator cuff History of repair of left rotator cuff History of mitral valve replacement S/P MVR (mitral valve replacement) Hx of cardiac cath History of Problems with Anesthesia: No Social History Social History Household Members: Family Housing: House Do you presently have visiting nurse or other home services: No Comment: pt refusing precautions steady on feet Patient Tobacco Use Status: Former Tobacco user Advance Directives Date on File: 10/29/21 service: Yes Current occupational status: retired Current occupation: ambidextrous, 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 Meds Allergies Allergy/AdvReac Type Severity Reaction Status Date / Time DUSTIN Inhibitors Allergy Severe Anaphylaxis Verified 02/01/24 12:42 [Dustin Inhibitors] aspirin Allergy Severe Anaphylaxis Verified 02/01/24 12:42 NSAIDS (Non-Steroidal Allergy Severe Anaphylaxis Verified 02/01/24 12:42 Anti-Inflamma [NSAIDS (NON-STEROIDAL ANTI-INFLAMMA] pineapple [PINEAPPLE] Allergy Severe Angioedema Verified 02/02/24 14:57 thimerosal [Thimerosal] Allergy Severe Angioedema Verified 02/01/24 12:42 Cephalosporins Allergy Intermediate Rash Verified 02/02/24 14:56 [CEPHALOSPORINS] fluoxetine [From PROZAC] Allergy Intermediate REQUIRED Verified 02/02/24 14:56 HOSPITALIZATION Penicillins Allergy Intermediate Rash Verified 02/02/24 14:56 tamsulosin Allergy Mild tacycardia Verified 02/01/24 12:42 aspartame [ASPARTAME] Allergy Unknown Unknown Verified 02/01/24 12:42 hexachlorophene Allergy Unknown Unknown Verified 02/01/24 12:42 [From PHISOHEX] melon Allergy Unknown Unknown Verified 02/01/24 12:42 perfume Allergy Unknown Unknown Verified 02/01/24 12:42 povidone-iodine Allergy Unknown Unknown Verified 02/01/24 12:42 [From BETADINE] soap [Betadine] Allergy Unknown Unknown Verified 02/01/24 12:42 codeine [Codeine] AdvReac Intermediate wakes up Verified 02/02/24 14:57 combative meperidine [From Demerol] AdvReac Intermediate Hallucinati Verified 02/02/24 14:57 ons monosodium glutamate AdvReac Intermediate Headache Verified 02/02/24 14:57 morphine AdvReac Intermediate wakes up Verified 02/02/24 14:57 combative dexon Allergy Unknown Unknown Uncoded 11/11/23 10:51 GLUE IN SHOES Allergy Unknown UNKNOWN Uncoded 11/11/23 10:51 PLASTIC TAPE Allergy Unknown skin Uncoded 11/11/23 10:51 problems POLYGLACTIC ACID(DEXON & Allergy Unknown UNKNOWN Uncoded 11/11/23 10:51 VICRYL) vicryl Allergy Unknown Unknown Uncoded 11/11/23 10:51 Active Medications: Current Medications Acetaminophen (Acetaminophen 325 Mg Tablet) 650 mg PO Q6H PRN PRN Reason: Pain, Mild (Pain Scale 1-3), fever or headache Last Admin: 02/04/24 08:44 Dose: 650 mg Acetaminophen/Butalbital/Caffeine (Butalb/Acetamin/Caff 50/325/40 Tablet) 1 tab PO DAILY PRN PRN Reason: Migraine Headache Albuterol Sulfate (Albuterol Sulfate (0.083%) 2.5 Mg/3 Ml Vial.Neb) 2.5 mg INHALE ONCE PRN PRN Reason: Shortness of Breath/Wheezing Albuterol/Ipratropium (Albuterol/Iprat 2.5/0.5mg 3 Ml Ampul.Neb) 3 ml INHALE RQ4H WHILE AWAKE [facility] Last Admin: 02/04/24 11:47 Dose: 3 ml Albuterol/Ipratropium (Albuterol/Iprat 2.5/0.5mg 3 Ml Ampul.Neb) 3 ml INHALE Q4H PRN PRN Reason: Shortness Of Breath Or Wheezing Amiodarone HCl (Amiodarone Hcl 200 Mg Tablet) 200 mg PO DAILY [facility] Apixaban (Apixaban 5 Mg Tablet) 5 mg PO BID [facility] Last Admin: 02/04/24 08:35 Dose: 5 mg Atorvastatin Calcium (Atorvastatin Calcium 20 Mg Tablet) 20 mg PO BEDTIME [facility] Last Admin: 02/03/24 21:33 Dose: 20 mg Calcium Carbonate (Calcium Carbonate 750 Mg Tab.Chew) 750 mg PO Q4H PRN PRN Reason: Heartburn Clonazepam (Clonazepam 0.5 Mg Tablet) 0.5 mg PO BID PRN PRN Reason: Anxiety Last Admin: 02/04/24 08:54 Dose: 0.5 mg Cyanocobalamin (Cyanocobalamin (Vitamin B-12) 1,000 Mcg Tablet) 1,000 mcg PO DAILY [facility] Last Admin: 02/04/24 08:36 Dose: 1,000 mcg Doxazosin Mesylate (Doxazosin Mesylate 2 Mg Tablet) 8 mg PO DAILY [facility] Last Admin: 02/04/24 08:44 Dose: 8 mg Finasteride (Finasteride 5 Mg Tablet) 5 mg PO BEDTIME [facility] Last Admin: 02/03/24 21:33 Dose: 5 mg Fluticasone Propionate (Fluticasone Propionate Nasal 16 Gm [place]) 1 spray NOSTRIL-B DAILY [facility] Last Admin: 02/04/24 08:59 Dose: 1 spray Fluticasone Propionate (Fluticasone Propionate 250 Mcg Blst.W.Dev) 2 puff INHALE RBID [facility] Last Admin: 02/04/24 07:11 Dose: 2 puff Furosemide (Furosemide 20 Mg/2 Ml Vial) 20 mg IVPUSH BID@0900,1800 [facility]; Protocol Last Admin: 02/04/24 08:45 Dose: 20 mg Glucose (Glucose Gel 15 Gm Gel..Gram.) 15 gm PO Q15M PRN; Protocol PRN Reason: per Hypoglycemia Standing Ord. Guaifenesin (Guaifenesin 200 Mg/10 Ml 10 Ml Liquid) 10 ml PO Q4H PRN PRN Reason: Cough Dextrose (D10) 250 mls @ 750 mls/hr IV Q15M PRN; Protocol PRN Reason: per Hypoglycemia Standing Ord. Doxycycline Hyclate 100 mg/ (Sodium Chloride) 250 mls @ 166.67 mls/hr IV Q12H [facility] Last Infusion: 02/04/24 10:45 Dose: Infused Lactated Ringer's (Lr) 1,000 mls @ 50 mls/hr IVCONT .Q20H [facility] Insulin Human Lispro (Insulin Lispro 100 Unit/Ml 3 Ml Vial) 0 unit SUBCUT QIDACHS [facility]; Protocol Last Admin: 02/04/24 12:26 Dose: Not Given Magnesium Hydroxide (Milk Of Magnesia 30 Ml Oral.Susp) 30 ml PO DAILY PRN PRN Reason: Constipation Magnesium Oxide (Magnesium Oxide 400 Mg Tablet) 400 mg PO BIDPC [facility] Melatonin (Melatonin 3 Mg Tablet) 6 mg PO BEDTIME PRN PRN Reason: Insomnia Montelukast Sodium (Montelukast Sodium 10 Mg Tablet) 10 mg PO DAILY [facility] Last Admin: 02/04/24 08:35 Dose: 10 mg Omeprazole (Omeprazole 40 Mg Capsule.Dr) 40 mg PO DAILY@0630 [facility] Last Admin: 02/04/24 06:11 Dose: Not Given Sodium Chloride (0.9 % Sodium Chloride Flush 3 Ml Syringe) 3 ml IVFLUSH QSHIFT [facility] Last Admin: 02/04/24 08:55 Dose: 3 ml Spironolactone (Spironolactone 25 Mg Tablet) 12.5 mg PO DAILY [facility]; Protocol Last Admin: 02/04/24 08:36 Dose: 12.5 mg Vitamin D (Cholecalciferol (Vitamin D3) 25 Mcg Tablet) 50 mcg PO DAILY [facility] Last Admin: 02/04/24 08:35 Dose: 50 mcg Home Medications ?Medication ?Instructions ?Recorded ?Confirmed ?Last Taken ?Type cholecalciferol (vitamin D3) 25 50 mcg PO DAILY 11/08/20 02/02/24 02/01/24 History mcg (1,000 unit) capsule clonazepam 0.5 mg tablet 0.5 mg PO DAILY PRN Anxiety 11/08/20 02/02/24 02/01/24 History epinephrine 0.3 mg/0.3 mL 0.3 mg IM Q10M PRN Allergic 11/08/20 02/02/24 Unknown History injection, auto-injector (EpiPen) Reaction finasteride 5 mg tablet 5 mg PO DAILY 11/08/20 02/01/24 02/01/24 History mometasone 220 mcg/actuation(30 2 inh inhalation BID 11/08/20 02/02/24 02/01/24 History doses) breath activated powder inhaler (Asmanex Twisthaler) saw palmetto 160 mg capsule 320 mg PO DAILY 11/08/20 02/02/24 02/01/24 History fluticasone propionate 50 1 spray intranasal DAILY 02/13/21 02/02/24 02/01/24 Hi story mcg/actuation nasal spray,suspension (Flonase Allergy Relief) [id number] 1 tab PO DAILY PRN Migraine 04/19/22 02/02/24 Unknown History 50 mg-325 mg-40 mg tablet Headache atorvastatin 20 mg tablet 20 mg PO BEDTIME 12/25/22 02/02/24 02/01/24 History omeprazole 20 mg capsule,delayed 40 mg PO DAILY@0630 01/30/23 02/02/24 02/01/24 History release metformin 750 mg tablet,extended 750 mg PO BID 07/18/23 02/02/24 02/01/24 History release 24 hr apixaban 5 mg tablet (Eliquis) 5 mg PO BID 01/05/24 02/01/24 02/01/24 History mecobalamin (vitamin B12) 1,000 1,000 mcg PO DAILY 01/05/24 02/02/24 02/01/24 History mcg lozenges semaglutide (weight loss) 0.5 1 mg subcut CHASE 01/05/24 02/02/24 01/18/24 History mg/0.5 mL subcutaneous pen injector ipratropium 20 mcg-albuterol 100 1 puff inhalation Q4H PRN 02/02/24 02/02/24 02/01/24 History mcg/actuation mist for inhalation Shortness Of Breath Or Wheezing (Combivent Respimat) terazosin 10 mg capsule 10 mg PO DAILY 02/03/24 02/03/24 Unknown History Exam Exam Date and Time: 02/04/24 1345 Height,Weight and Vital Signs: Height 5 ft 9 in Weight 97.522 kg Last Vital Signs Temp 97.1 F 02/04/24 12:00 Pulse 58 02/04/24 12:00 Resp 18 02/04/24 12:00 BP 142/86 H 02/04/24 12:00 Pulse Ox 92 02/04/24 12:00 O2 Del Method Room Air 02/04/24 12:00 O2 Flow Rate 2 02/04/24 07:57 Oxygen Flow Rate 2 02/01/24 18:25 Pertinent Lab Results Pertinent Lab Results: Laboratory Tests 02/01/24 02/01/24 02/01/24 13:15 13:15 15:10 WBC 4.6 L RBC 4.32 L Hgb 13.0 L Hct 38.0 L MCV 88.0 MCH 30.1 MCHC 34.2 RDW 14.3 Plt Count 90 L MPV 10.5 Immature Gran % (Auto) 0.4 Neut % (Auto) 76.2 H Lymph % (Auto) 13.3 L [place] % (Auto) 7.7 Eos % (Auto) 1.5 Baso % (Auto) 0.9 Lymph # (Auto) 0.6 L [place] # (Auto) 0.4 Eos # (Auto) 0.1 Baso # (Auto) 0.0 Abs Immat Gran (auto) 0.02 Absolute Neuts (auto) 3.5 Absolute Nucleated RBC 0.000 Nucleated RBC % (auto) 0.0 Hold Purple Top PT 17.9 H INR 1.5 H APTT 36.9 H Sodium 145 Potassium 3.4 Chloride 107 Carbon Dioxide 27 Anion Gap 14 BUN 14 Creatinine 0.73 Estim Creat Clear Calc 108.4 Estimated GFR > 60 POC Glucose Random Glucose 103 Lactic Acid 1.2 Calcium 9.8 Magnesium Total Bilirubin 1.4 H AST 24 ALT 18 Alkaline Phosphatase 49 Troponin I High Sens 8.2 D B-Natriuretic Peptide 185 H Total Protein 6.9 Albumin 3.9 Respiratory Panel Capps Cancelled Adenovirus (Rapid PCR) Cancelled B.pert (TEM-PCR) Cancelled B.parapertussis DNA PCR Cancelled C. pneumoniae DNA (PCR) Cancelled Coronavirus OC43 (PCR) Cancelled Coronavirus HKU1 (PCR) Cancelled Coronavirus 229E (PCR) Cancelled Coronavirus NL63 (PCR) Cancelled Human Metapneumovir PCR Cancelled Influenza A (RT-PCR) Cancelled Influenza Type A (PCR) NEGATIVE Influenza B (RT-PCR) Cancelled Influenza Type B (PCR) NEGATIVE M. pneumoniae (PCR) Cancelled Parainfluenza 1 (PCR) Cancelled Parainfluenza 2 (PCR) Cancelled Parainfluenza 3 (PCR) Cancelled Parainfluenza 4 (PCR) Cancelled RSV (PCR) Cancelled RSV RNA Qual (PCR) NEGATIVE Entero/Rhino (PCR) Cancelled SARS-CoV-2 RNA (RT-PCR) NEGATIVE Cancelled S. pyogenes GrpA JALIL Negative 02/01/24 02/01/24 02/01/24 15:23 18:37 21:14 WBC RBC Hgb Hct MCV MCH MCHC RDW Plt Count MPV Immature Gran % (Auto) Neut % (Auto) Lymph % (Auto) [place] % (Auto) Eos % (Auto) Baso % (Auto) Lymph # (Auto) [place] # (Auto) Eos # (Auto) Baso # (Auto) Abs Immat Gran (auto) Absolute Neuts (auto) Absolute Nucleated RBC Nucleated RBC % (auto) Hold Purple Top PT INR APTT Sodium Potassium Chloride Carbon Dioxide Anion Gap BUN Creatinine Estim Creat Clear Calc Estimated GFR POC Glucose 196 H Random Glucose Lactic Acid Calcium Magnesium Total Bilirubin AST ALT Alkaline Phosphatase Troponin I High Sens 8.0 B-Natriuretic Peptide Total Protein Albumin Respiratory Panel Capps Adenovirus (Rapid PCR) B.pert (TEM-PCR) B.parapertussis DNA PCR C. pneumoniae DNA (PCR) Coronavirus OC43 (PCR) Coronavirus HKU1 (PCR) Coronavirus 229E (PCR) Coronavirus NL63 (PCR) Human Metapneumovir PCR Influenza A (RT-PCR) Influenza Type A (PCR) Influenza B (RT-PCR) Influenza Type B (PCR) M. pneumoniae (PCR) Parainfluenza 1 (PCR) Parainfluenza 2 (PCR) Parainfluenza 3 (PCR) Parainfluenza 4 (PCR) RSV (PCR) RSV RNA Qual (PCR) Entero/Rhino (PCR) SARS-CoV-2 RNA (RT-PCR) S. pyogenes GrpA JALIL Negative 02/02/24 02/02/24 02/02/24 04:56 06:58 12:19 WBC 5.0 RBC 4.25 L Hgb 12.7 L Hct 37.3 L MCV 87.8 MCH 29.9 MCHC 34.0 RDW 14.2 Plt Count 91 L MPV 10.1 Immature Gran % (Auto) 0.2 Neut % (Auto) 89.2 H Lymph % (Auto) 6.6 L [place] % (Auto) 3.8 Eos % (Auto) 0.0 Baso % (Auto) 0.2 Lymph # (Auto) 0.3 L [place] # (Auto) 0.2 Eos # (Auto) 0.0 Baso # (Auto) 0.0 Abs Immat Gran (auto) 0.01 Absolute Neuts (auto) 4.5 Absolute Nucleated RBC 0.000 Nucleated RBC % (auto) 0.0 Hold Purple Top PT INR APTT Sodium 142 Potassium 3.0 L Chloride 105 Carbon Dioxide 23 Anion Gap 17 BUN 12 Creatinine 0.73 Estim Creat Clear Calc 108.4 Estimated GFR > 60 POC Glucose 150 H 147 H Random Glucose 161 H Lactic Acid Calcium 8.4 D Magnesium Total Bilirubin AST ALT Alkaline Phosphatase Troponin I High Sens B-Natriuretic Peptide 275 H Total Protein Albumin Respiratory Panel Capps Adenovirus (Rapid PCR) B.pert (TEM-PCR) B.parapertussis DNA PCR C. pneumoniae DNA (PCR) Coronavirus OC43 (PCR) Coronavirus HKU1 (PCR) Coronavirus 229E (PCR) Coronavirus NL63 (PCR) Human Metapneumovir PCR Influenza A (RT-PCR) Influenza Type A (PCR) Influenza B (RT-PCR) Influenza Type B (PCR) M. pneumoniae (PCR) Parainfluenza 1 (PCR) Parainfluenza 2 (PCR) Parainfluenza 3 (PCR) Parainfluenza 4 (PCR) RSV (PCR) RSV RNA Qual (PCR) Entero/Rhino (PCR) SARS-CoV-2 RNA (RT-PCR) S. pyogenes GrpA JALIL 02/02/24 02/02/24 02/03/24 17:33 21:13 06:01 WBC RBC Hgb Hct MCV MCH MCHC RDW Plt Count MPV Immature Gran % (Auto) Neut % (Auto) Lymph % (Auto) [place] % (Auto) Eos % (Auto) Baso % (Auto) Lymph # (Auto) [place] # (Auto) Eos # (Auto) Baso # (Auto) Abs Immat Gran (auto) Absolute Neuts (auto) Absolute Nucleated RBC Nucleated RBC % (auto) Hold Purple Top PT INR APTT Sodium 143 Potassium 3.1 L Chloride 104 Carbon Dioxide 29 Anion Gap 13 BUN 16 Creatinine 0.76 Estim Creat Clear Calc 104.1 Estimated GFR > 60 POC Glucose 156 H 144 H Random Glucose 125 H Lactic Acid Calcium 8.7 Magnesium Total Bilirubin AST ALT Alkaline Phosphatase Troponin I High Sens B-Natriuretic Peptide 98 Total Protein Albumin Respiratory Panel Capps Adenovirus (Rapid PCR) B.pert (TEM-PCR) B.parapertussis DNA PCR C. pneumoniae DNA (PCR) Coronavirus OC43 (PCR) Coronavirus HKU1 (PCR) Coronavirus 229E (PCR) Coronavirus NL63 (PCR) Human Metapneumovir PCR Influenza A (RT-PCR) Influenza Type A (PCR) Influenza B (RT-PCR) Influenza Type B (PCR) M. pneumoniae (PCR) Parainfluenza 1 (PCR) Parainfluenza 2 (PCR) Parainfluenza 3 (PCR) Parainfluenza 4 (PCR) RSV (PCR) RSV RNA Qual (PCR) Entero/Rhino (PCR) SARS-CoV-2 RNA (RT-PCR) S. pyogenes GrpA JALIL 02/03/24 02/03/24 02/03/24 07:30 10:51 16:16 WBC RBC Hgb Hct MCV MCH MCHC RDW Plt Count MPV Immature Gran % (Auto) Neut % (Auto) Lymph % (Auto) [place] % (Auto) Eos % (Auto) Baso % (Auto) Lymph # (Auto) [place] # (Auto) Eos # (Auto) Baso # (Auto) Abs Immat Gran (auto) Absolute Neuts (auto) Absolute Nucleated RBC Nucleated RBC % (auto) Hold Purple Top PT INR APTT Sodium Potassium Chloride Carbon Dioxide Anion Gap BUN Creatinine Estim Creat Clear Calc Estimated GFR POC Glucose 126 H 129 H 157 H Random Glucose Lactic Acid Calcium Magnesium Total Bilirubin AST ALT Alkaline Phosphatase Troponin I High Sens B-Natriuretic Peptide Total Protein Albumin Respiratory Panel Capps Adenovirus (Rapid PCR) B.pert (TEM-PCR) B.parapertussis DNA PCR C. pneumoniae DNA (PCR) Coronavirus OC43 (PCR) Coronavirus HKU1 (PCR) Coronavirus 229E (PCR) Coronavirus NL63 (PCR) Human Metapneumovir PCR Influenza A (RT-PCR) Influenza Type A (PCR) Influenza B (RT-PCR) Influenza Type B (PCR) M. pneumoniae (PCR) Parainfluenza 1 (PCR) Parainfluenza 2 (PCR) Parainfluenza 3 (PCR) Parainfluenza 4 (PCR) RSV (PCR) RSV RNA Qual (PCR) Entero/Rhino (PCR) SARS-CoV-2 RNA (RT-PCR) S. pyogenes GrpA JALIL 02/03/24 02/04/24 02/04/24 19:39 05:59 07:44 WBC RBC Hgb Hct MCV MCH MCHC RDW Plt Count MPV Immature Gran % (Auto) Neut % (Auto) Lymph % (Auto) [place] % (Auto) Eos % (Auto) Baso % (Auto) Lymph # (Auto) [place] # (Auto) Eos # (Auto) Baso # (Auto) Abs Immat Gran (auto) Absolute Neuts (auto) Absolute Nucleated RBC Nucleated RBC % (auto) Hold Purple Top SEE NOTE PT INR APTT Sodium 143 Potassium 2.9 L* Chloride 104 Carbon Dioxide 30 H Anion Gap 12 BUN 14 Creatinine 0.69 Estim Creat Clear Calc 114.7 Estimated GFR > 60 POC Glucose 135 H 146 H Random Glucose 140 H Lactic Acid Calcium 8.3 L Magnesium 1.8 Total Bilirubin AST ALT Alkaline Phosphatase Troponin I High Sens B-Natriuretic Peptide Total Protein Albumin Respiratory Panel Capps Adenovirus (Rapid PCR) B.pert (TEM-PCR) B.parapertussis DNA PCR C. pneumoniae DNA (PCR) Coronavirus OC43 (PCR) Coronavirus HKU1 (PCR) Coronavirus 229E (PCR) Coronavirus NL63 (PCR) Human Metapneumovir PCR Influenza A (RT-PCR) Influenza Type A (PCR) Influenza B (RT-PCR) Influenza Type B (PCR) M. pneumoniae (PCR) Parainfluenza 1 (PCR) Parainfluenza 2 (PCR) Parainfluenza 3 (PCR) Parainfluenza 4 (PCR) RSV (PCR) RSV RNA Qual (PCR) Entero/Rhino (PCR) SARS-CoV-2 RNA (RT-PCR) S. pyogenes GrpA JALIL 02/04/24 02/04/24 08:00 12:14 WBC RBC Hgb Hct MCV MCH MCHC RDW Plt Count MPV Immature Gran % (Auto) Neut % (Auto) Lymph % (Auto) [place] % (Auto) Eos % (Auto) Baso % (Auto) Lymph # (Auto) [place] # (Auto) Eos # (Auto) Baso # (Auto) Abs Immat Gran (auto) Absolute Neuts (auto) Absolute Nucleated RBC Nucleated RBC % (auto) Hold Purple Top PT INR APTT Sodium Potassium Chloride Carbon Dioxide Anion Gap BUN Creatinine Estim Creat Clear Calc Estimated GFR POC Glucose 117 H Random Glucose Lactic Acid Calcium Magnesium Total Bilirubin AST ALT Alkaline Phosphatase Troponin I High Sens B-Natriuretic Peptide Total Protein Albumin Respiratory Panel Capps See Note Adenovirus (Rapid PCR) Not Detected B.pert (TEM-PCR) Not Detected B.parapertussis DNA PCR Not Detected C. pneumoniae DNA (PCR) Not Detected Coronavirus OC43 (PCR) Not Detected Coronavirus HKU1 (PCR) Not Detected Coronavirus 229E (PCR) Not Detected Coronavirus NL63 (PCR) Not Detected Human Metapneumovir PCR Not Detected Influenza A (RT-PCR) Not Detected Influenza Type A (PCR) Influenza B (RT-PCR) Not Detected Influenza Type B (PCR) M. pneumoniae (PCR) Not Detected Parainfluenza 1 (PCR) Not Detected Parainfluenza 2 (PCR) Not Detected Parainfluenza 3 (PCR) Not Detected Parainfluenza 4 (PCR) Not Detected RSV (PCR) Not Detected RSV RNA Qual (PCR) Entero/Rhino (PCR) Detected A SARS-CoV-2 RNA (RT-PCR) Not Detected S. pyogenes GrpA JALIL Airway Mallampati Class: II TM Dist: >3cm Neck ROM: Full Partial: Upper Heart: S1S2 Lungs: CTAB Assessment and Plan Assessment Anesthesia Assessment: Anesthesia Plan Discussed and Chart Reviewed Final Anesthetic Review Family History of Problems with Anesthesia: No History of Problems with Anesthesia: No NPO: Yes ASA Class: III Final Preanesthetic Review: No Changes in Pt Med Stat, Meds/Allgs Chart Reviewed, Consent Obtained/Reviewed and Anes Risks/Benef Reviewed Patient Risk: Intermediate Procedure Risk: Low Anesthetic Plan Anesthetic Plan: MAC: and Agree w/ Assess. and Plan Disposition: Standard PACU
[2024-02-04] MEDS: Lactated Ringers 1,000 ML 50 ML IVCONT (13:57)
--- NOTE | 2024-02-04 14:12 | ECG_ITS ---
Test Reason : S/P CARDIOVERSION Blood Pressure : / mmHG Vent. Rate : 063 BPM Atrial Rate : 063 BPM P-R Int : 240 ms QRS Dur : 152 ms QT Int : 530 ms P-R-T Axes : -08 -18 018 degrees QTc Int : 542 ms Sinus rhythm with 1st degree A-V block Right bundle branch block Abnormal ECG When compared with ECG of 01-FEB-2024 18:51, Sinus rhythm has replaced Atrial flutter Referred By: James Fernando Electronically Signed By:PRABHU SEAMAN
--- NOTE | 2024-02-04 14:13 | HO.CARDIVERS ---
Cardioversion Procedure Note Cardioversion Date of Procedure: 02/04/2024 Ordering Provider: Dmitry Fernando Performing Provider: Dmitry Fernando Indication for Procedure: Persistent atrial flutter with heart failure Pre-Op Diagnosis: Same Post-Op Diagnosis: NSR Performed with Transesophageal Echo: No Consent: Verbal and Written consent was obtained from the patient before starting after treating CHF and confirming OAC use. The patient was made aware of the risk of synchronized cardioversion including benefits and alternatives Procedure: After consent obtained, cardioversion pads were attached in AP configuration and the patient was sedated by the anesthesia team. Once adequate sedation achieved, patient was delivered 200J of biphasic synchronized energy in AP configuration Complications: None Impression: Successful conversion to NSR Recommendations: 1. 12 lead EKG 2. Amiodaorne 200 mg daily. 3. Conitnue elishaunis
--- NOTE | 2024-02-04 14:46 | MHC.CM.PN ---
Per rounds and EMR review, pt had cardioversion today. DCP is home, self care. CM to follow for DC needs.
[2024-02-04 16:31] LABS: Glucose, Whole Blood 117 mg/dL (60-115)
--- NOTE | 2024-02-04 17:11 | HO.PM.IMPN ---
Subjective Subjective Date of Service: 02/04/24 Interval History: afib , hypokalemia Review of Systems seem improving denies any chest pain or sob Physical Exam Vital Signs: Vital Signs: Last Vital Signs Temp 97.7 F 02/04/24 15:50 Pulse 68 02/04/24 15:50 Resp 19 02/04/24 15:50 BP 168/77 H 02/04/24 15:50 Pulse Ox 96 02/04/24 15:50 O2 Del Method Room Air 02/04/24 15:50 O2 Flow Rate 3 02/04/24 14:43 Oxygen Flow Rate 2 02/01/24 18:25 BMI result Body Mass Index 31.7 Appearance: Alert.? Oriented X3.? has cough cvs: rrr, [id number] , trace edema res: air entry fair , has few scatter rhonchii abd: no rebound or guarding ,nt, bs present. ext pulses present , no cyanosis . neuro: axo3 , nonfocal. Objective Data Active Medications Acetaminophen (Acetaminophen 325 Mg Tablet) 650 mg PO Q6H PRN PRN Reason: Pain, Mild (Pain Scale 1-3), fever or headache Last Admin: 02/04/24 08:44 Dose: 650 mg Documented By: DOYLE Acetaminophen/Butalbital/Caffeine (Butalb/Acetamin/Caff 50/325/40 Tablet) 1 tab PO DAILY PRN PRN Reason: Migraine Headache Albuterol Sulfate (Albuterol Sulfate (0.083%) 2.5 Mg/3 Ml Vial.Neb) 2.5 mg INHALE ONCE PRN PRN Reason: Shortness of Breath/Wheezing Albuterol/Ipratropium (Albuterol/Iprat 2.5/0.5mg 3 Ml Ampul.Neb) 3 ml INHALE RQ4H WHILE AWAKE [facility] Last Admin: 02/04/24 15:14 Dose: 3 ml Documented By: KELLIE Albuterol/Ipratropium (Albuterol/Iprat 2.5/0.5mg 3 Ml Ampul.Neb) 3 ml INHALE Q4H PRN PRN Reason: Shortness Of Breath Or Wheezing Amiodarone HCl (Amiodarone Hcl 200 Mg Tablet) 200 mg PO DAILY [facility] Apixaban (Apixaban 5 Mg Tablet) 5 mg PO BID [facility] Last Admin: 02/04/24 08:35 Dose: 5 mg Documented By: DOYLE Atorvastatin Calcium (Atorvastatin Calcium 20 Mg Tablet) 20 mg PO BEDTIME [facility] Last Admin: 02/03/24 21:33 Dose: 20 mg Documented By: PAPA Calcium Carbonate (Calcium Carbonate 750 Mg Tab.Chew) 750 mg PO Q4H PRN PRN Reason: Heartburn Clonazepam (Clonazepam 0.5 Mg Tablet) 0.5 mg PO BID PRN PRN Reason: Anxiety Last Admin: 02/04/24 08:54 Dose: 0.5 mg Documented By: DOYLE Cyanocobalamin (Cyanocobalamin (Vitamin B-12) 1,000 Mcg Tablet) 1,000 mcg PO DAILY [facility] Last Admin: 02/04/24 08:36 Dose: 1,000 mcg Documented By: DOYLE Doxazosin Mesylate (Doxazosin Mesylate 2 Mg Tablet) 8 mg PO DAILY [facility] Last Admin: 02/04/24 08:44 Dose: 8 mg Documented By: DOYLE Finasteride (Finasteride 5 Mg Tablet) 5 mg PO BEDTIME [facility] Last Admin: 02/03/24 21:33 Dose: 5 mg Documented By: PAPA Fluticasone Propionate (Fluticasone Propionate Nasal 16 Gm [place]) 1 spray NOSTRIL-B DAILY [facility] Last Admin: 02/04/24 08:59 Dose: 1 spray Documented By: DOYLE Fluticasone Propionate (Fluticasone Propionate 250 Mcg Blst.W.Dev) 2 puff INHALE RBID [facility] Last Admin: 02/04/24 07:11 Dose: 2 puff Documented By: KELLIE Furosemide (Furosemide 20 Mg/2 Ml Vial) 20 mg IVPUSH BID@0900,1800 [facility]; Protocol Last Admin: 02/04/24 08:45 Dose: 20 mg Documented By: DOYLE Glucose (Glucose Gel 15 Gm Gel..Gram.) 15 gm PO Q15M PRN; Protocol PRN Reason: per Hypoglycemia Standing Ord. Guaifenesin (Guaifenesin 200 Mg/10 Ml 10 Ml Liquid) 10 ml PO Q4H PRN PRN Reason: Cough Dextrose (D10) 250 mls @ 750 mls/hr IV Q15M PRN; Protocol PRN Reason: per Hypoglycemia Standing Ord. Doxycycline Hyclate 100 mg/ (Sodium Chloride) 250 mls @ 166.67 mls/hr IV Q12H [facility] Last Infusion: 02/04/24 10:45 Dose: Infused Documented By: DOYLE Lactated Ringer's (Lr) 1,000 mls @ 50 mls/hr IVCONT .Q20H [facility] Last Admin: 02/04/24 13:57 Dose: 50 mls/hr Documented By: DEZ Insulin Human Lispro (Insulin Lispro 100 Unit/Ml 3 Ml Vial) 0 unit SUBCUT QIDACHS [facility]; Protocol Last Admin: 02/04/24 16:49 Dose: Not Given Documented By: DOYLE Non-Admin Reason: No Insulin Coverage Magnesium Hydroxide (Milk Of Magnesia 30 Ml Oral.Susp) 30 ml PO DAILY PRN PRN Reason: Constipation Magnesium Oxide (Magnesium Oxide 400 Mg Tablet) 400 mg PO BIDPC [facility] Melatonin (Melatonin 3 Mg Tablet) 6 mg PO BEDTIME PRN PRN Reason: Insomnia Montelukast Sodium (Montelukast Sodium 10 Mg Tablet) 10 mg PO DAILY [facility] Last Admin: 02/04/24 08:35 Dose: 10 mg Documented By: DOYLE Naloxone HCl (Naloxone Hcl 0.4 Mg/Ml Vial) 0.04 mg IVPUSH Q5M PRN PRN Reason: Excessive sedation or RR < 8 Omeprazole (Omeprazole 40 Mg Capsule.Dr) 40 mg PO DAILY@0630 [facility] Last Admin: 02/04/24 06:11 Dose: Not Given Documented By: PAPA Non-Admin Reason: Patient Refused Sodium Chloride (0.9 % Sodium Chloride Flush 3 Ml Syringe) 3 ml IVFLUSH QSHIFT [facility] Last Admin: 02/04/24 15:48 Dose: Not Given Documented By: DOYLE Non-Admin Reason: IV Running Spironolactone (Spironolactone 25 Mg Tablet) 12.5 mg PO DAILY [facility]; Protocol Last Admin: 02/04/24 08:36 Dose: 12.5 mg Documented By: DOYLE Vitamin D (Cholecalciferol (Vitamin D3) 25 Mcg Tablet) 50 mcg PO DAILY [facility] Last Admin: 02/04/24 08:35 Dose: 50 mcg Documented By: DOYLE Labs 02/02/24 04:56 09/18/24 05:59 Labs: Laboratory Results - last 24 hr 02/01/24 02/03/24 02/04/24 13:15 19:39 05:59 Hold Purple Top SEE NOTE Anion Gap 12 Estim Creat Clear Calc 114.7 Estimated GFR > 60 POC Glucose 135 H Random Glucose 140 H Calcium 8.3 L Magnesium 1.8 Respiratory Panel Capps Cancelled Adenovirus (Rapid PCR) Cancelled B.pert (TEM-PCR) Cancelled B.parapertussis DNA PCR Cancelled C. pneumoniae DNA (PCR) Cancelled Coronavirus OC43 (PCR) Cancelled Coronavirus HKU1 (PCR) Cancelled Coronavirus 229E (PCR) Cancelled Coronavirus NL63 (PCR) Cancelled Human Metapneumovir PCR Cancelled Influenza A (RT-PCR) Cancelled Influenza B (RT-PCR) Cancelled M. pneumoniae (PCR) Cancelled Parainfluenza 1 (PCR) Cancelled Parainfluenza 2 (PCR) Cancelled Parainfluenza 3 (PCR) Cancelled Parainfluenza 4 (PCR) Cancelled RSV (PCR) Cancelled Entero/Rhino (PCR) Cancelled SARS-CoV-2 RNA (RT-PCR) Cancelled 02/04/24 02/04/24 02/04/24 07:44 08:00 12:14 Hold Purple Top Anion Gap Estim Creat Clear Calc Estimated GFR POC Glucose 146 H 117 H Random Glucose Calcium Magnesium Respiratory Panel Capps See Note Adenovirus (Rapid PCR) Not Detected B.pert (TEM-PCR) Not Detected B.parapertussis DNA PCR Not Detected C. pneumoniae DNA (PCR) Not Detected Coronavirus OC43 (PCR) Not Detected Coronavirus HKU1 (PCR) Not Detected Coronavirus 229E (PCR) Not Detected Coronavirus NL63 (PCR) Not Detected Human Metapneumovir PCR Not Detected Influenza A (RT-PCR) Not Detected Influenza B (RT-PCR) Not Detected M. pneumoniae (PCR) Not Detected Parainfluenza 1 (PCR) Not Detected Parainfluenza 2 (PCR) Not Detected Parainfluenza 3 (PCR) Not Detected Parainfluenza 4 (PCR) Not Detected RSV (PCR) Not Detected Entero/Rhino (PCR) Detected A SARS-CoV-2 RNA (RT-PCR) Not Detected 02/04/24 16:24 Hold Purple Top Anion Gap Estim Creat Clear Calc Estimated GFR POC Glucose 117 H Random Glucose Calcium Magnesium Respiratory Panel Capps Adenovirus (Rapid PCR) B.pert (TEM-PCR) B.parapertussis DNA PCR C. pneumoniae DNA (PCR) Coronavirus OC43 (PCR) Coronavirus HKU1 (PCR) Coronavirus 229E (PCR) Coronavirus NL63 (PCR) Human Metapneumovir PCR Influenza A (RT-PCR) Influenza B (RT-PCR) M. pneumoniae (PCR) Parainfluenza 1 (PCR) Parainfluenza 2 (PCR) Parainfluenza 3 (PCR) Parainfluenza 4 (PCR) RSV (PCR) Entero/Rhino (PCR) SARS-CoV-2 RNA (RT-PCR) Microbiology Microbiology Results: Microbiology 02/01/24 15:23 Blood Culture - Preliminary Blood - Venous No growth after 48 hours. 02/01/24 15:10 Blood Culture - Preliminary Blood - Venous No growth after 48 hours. Assessment and Plan (1) CHF exacerbation: Status: Acute Assessment and Plan: 68-year-old male with history of asthma/COPD overlap not on home O2, [id number] type 2 diabetes, GERD, BPH, hyperlipidemia, PTSD, hypertension, ANJELICA on CPAP, mitral regurgitation, persistent atrial fibrillation scheduled for cardioversion on Friday anticoagulated with Eliquis admitted for CHF exacerbation acute on chronic HFpEF i/o 4.8 liter negative echo 12/2023 with normal LV systolic function with ef 55-60%, indeterminate diastolic dysfunction switch to po lasix 40 mg daily, aldacton 12.5 mg monitor i/o, bmp, bnp and electrolytes cardiology following Acute hypokalemia: Added IV and p.o. potassium Also added p.o. magnesium Viral URI with acute mild COPD exacerbation clear/blood tinged sputum (on eliquis), no shay hemoptysis. No focal consolidation on imaging negative for COVID-19, RSV, influenza. RPP pending continue DuoNebs q.4h while awake,doxycycline 100mg bid x 5 for bronchitis,symptomatic management. persistent atrial fibrillation with slow ventricular rate Cardiology consult noted-Recent onset atrial flutter with patient's underlying structural heart issues with prior mitral valve replacement. started on amiodarone load,continue Eliquis for anticoagulation Status post cardioversion today-now in as NSR grn-ilishis-ydldlxckl type 2 diabetes -POC glucose, diabetic diet -Humalog on sliding scale -hold metformin, Ozempic. Monitor for steroid induced hyperglycemia ANJELICA-CPAP bedtime BPH-continue finasteride, tadalafil Hypertension -monitor blood pressures, not on antihypertensives -feels elevated blood pressures are related to anxiety. Give Ativan x1. Consider additional therapy if remains hypertensive chronic normocytic anemia -H/H above transfusion threshold chronic thrombocytopenia-mild -monitor platelets, can continue Eliquis DVT prophylaxis-Eliquis Full code need for inpt: IV diuretics for acute heart failure-moniter i/o ,renal function and electrolytes monitering ,cardiology followup Quality Stroke Does the patient have a stroke diagnosis?: No VTE Prior VTE?: No VTE Risk Level:: Medical - moderate - high VTE Device Contraindication: Treatment Not Indicated VTE Drug Contraindication: N/A - Med Ordered
[2024-02-04] MEDS: Magnesium Oxide 400 MG TABLET PO (18:21)
[2024-02-04] MEDS: Melatonin 3 MG TABLET 6 MG PO (20:19)
[2024-02-04] MEDS: Atorvastatin Calcium 20 MG TABLET PO (20:19)
[2024-02-04] MEDS: Doxycycline Hyclate 100 MG in 0.9 % Sodium Chloride 250 ML 166.7 MG IV (20:19)
[2024-02-04] MEDS: Finasteride 5 MG TABLET PO (20:20)
[2024-02-04 20:48] LABS: Glucose, Whole Blood 149 mg/dL (60-115)
[2024-02-05] VITALS (9 sets, daily range): BP systolic 135–171; BP diastolic 70–81; PULSE 68–94; RESP 16–20; TEMP 36.2–37.2; O2SAT 88–98
[2024-02-05] MEDS: Omeprazole 40 MG CAPSULE.DR PO (06:54)
[2024-02-05] MEDS: Doxycycline Hyclate 100 MG in 0.9 % Sodium Chloride 250 ML 166.7 MG IV (06:55)
[2024-02-05 07:15] LABS: Blood Urea Nitrogen 13 mg/dL (9-16); Calcium 8.6 mg/dL (8.4-10.2); Creatinine Clr Calc Pharmacy 116.4; Estimated Glomerular Filt Rate > 60; Glucose Random 122 mg/dL (60-115)
[2024-02-05 07:22] LABS: Anion Gap 13 (12-20); Carbon Dioxide 28 mmol/L (22-29); Chloride 107 mmol/L (96-108); Potassium 4.2 mmol/L (3.3-5.1); Sodium 144 mmol/L (135-145)
[2024-02-05 07:36] LABS: Glucose, Whole Blood 119 mg/dL (60-115)
[2024-02-05] MEDS: Fluticasone Propionate 250 MCG BLST.W.DEV 2 PUFF INHALE (08:00)
[2024-02-05] MEDS: Albuterol/Iprat 2.5/0.5MG 3 ML AMPUL.NEB INHALE ×2 (08:00→12:07)
[2024-02-05] MEDS: 0.9 % Sodium Chloride Flush 3 ML SYRINGE IVFLUSH (08:49)
[2024-02-05] MEDS: Montelukast Sodium 10 MG TABLET PO (08:51)
[2024-02-05] MEDS: Magnesium Oxide 400 MG TABLET PO (08:51)
[2024-02-05] MEDS: Apixaban 5 MG TABLET PO (08:51)
[2024-02-05] MEDS: Doxazosin Mesylate 2 MG TABLET 8 MG PO (08:51)
[2024-02-05] MEDS: Cholecalciferol (Vitamin D3) 25 MCG TABLET 50 MCG PO (08:52)
[2024-02-05] MEDS: Cyanocobalamin (Vitamin B-12) 1,000 MCG TABLET 1000 MCG PO (08:52)
[2024-02-05] MEDS: Amiodarone HCL 200 MG TABLET PO (08:52)
[2024-02-05] MEDS: Spironolactone 25 MG TABLET 12.5 MG PO (09:03)
--- NOTE | 2024-02-05 10:15 | PM.PNCARD ---
Subjective Subjective Date of Service: 02/05/24 Principal diagnosis: Atrial flutter/fibrillation, CHF. Interval history: Status post cardioversion. Maintaining rhythm. Feeling better. Still having some cough although shortness of breath is much improved. Review of Systems Review of Systems Yes all other systems are reviewed and are negative Physical Exam Vital Signs: Last Vital Signs Temp 97.2 F 02/05/24 08:00 Pulse 81 02/05/24 08:03 Resp 16 02/05/24 08:03 BP 171/81 H 02/05/24 09:03 Pulse Ox 95 02/05/24 08:00 O2 Del Method Nasal Cannula 02/05/24 08:00 O2 Flow Rate 2 02/05/24 08:00 Oxygen Flow Rate 2 02/01/24 18:25 BMI result Body Mass Index 31.7 Const General: cooperative, alert, awake and in distress mild and respiratory Nutritional Appearance: obese Orientation/consciousness: patient oriented x3 HEENT Head: Yes normocephalic and Yes atraumatic Neck Neck: Yes trachea midline, Yes supple and Yes no JVD Resp Effort & Inspection: normal respiratory effort Auscultation: wheezes and diminished lung sounds Cardio Jugular venous distension: JVD Rate: regular rate Rhythm: regular rhythm Heart sounds: S1 normal heart sound present, S2 normal heart sound present, no click, no gallops and no murmurs GI Inspection: Yes obesity Auscultation: normal bowel sounds Skin General skin exam: no rashes or lesions noted and ecchymosis Neuro General: patient oriented x3 and no focal motor deficits Extrem General: No clubbing, No cyanosis and Yes edema (Improved) Psych Appearance: grossly normal Objective Labs and Meds 02/02/24 04:56 02/05/24 06:27 Lab results: Laboratory Results - last 24 hr 02/04/24 02/04/24 02/04/24 12:14 16:24 20:43 Sodium Potassium Chloride Carbon Dioxide Anion Gap BUN Creatinine Estim Creat Clear Calc Estimated GFR POC Glucose 117 H 117 H 149 H Random Glucose Calcium 02/05/24 02/05/24 06:27 07:30 Sodium 144 Potassium 4.2 D Chloride 107 Carbon Dioxide 28 Anion Gap 13 BUN 13 Creatinine 0.68 Estim Creat Clear Calc 116.4 Estimated GFR > 60 POC Glucose 119 H Random Glucose 122 H Calcium 8.6 Progress Note: A&P Assessment and plan (1) CHF exacerbation: Status: Acute Assessment and Plan: CHF exacerbation related atrial flutter and viral illness. Clinically doing well. Agree with switch to oral diuretics. Continue spironolactone therapy. Advised to monitor intake and output chart at home. Strict daily weight monitoring avoidance of salt loading was discussed additional diuretics as need be. Management of heart failure was discussed. Continue rhythm control approach. (2) Paroxysmal atrial flutter: Status: Acute Assessment and Plan: Paroxysmal atrial flutter, status post cardioversion. Currently on amiodarone therapy. Given his structural abnormality will need amiodarone therapy. Continue 200 mg daily. Continue full oral anticoagulation with Eliquis. Patient planned to be discharged. Will follow-up as outpatient Time Spent With Patient Time: Total time managing care of this patient today ____ minutes. Progress Note: Quality Stroke Does the patient have a stroke diagnosis?: No Procedures Date of Service Date of Service: 02/05/24
[2024-02-05] MEDS: Acetaminophen 325 MG TABLET 975 MG PO (10:17)
[2024-02-05] MEDS: Fluticasone Propionate Nasal 16 GM SPRAY 1 SPRAY NOSTRIL-B (10:21)
--- NOTE | 2024-02-05 11:13 | PM.DS ---
DS: Providers Provider Date of Service: 02/05/24 Date of admission: 02/01/24 18:58 Date of discharge: 02/05/24 Primary care physician: Jamar Atkinson MD Consults: 02/01/24 18:58 Consult to Cardiology Routine Consulting Provider: [facility] Reason for consultation: chf, afib/junctional rhythm- sched for cardioversion fri Attending physician on discharge: Tucker Harris Discharging clinician: Tucker Harris DS: Diagnosis Discharge Diagnosis (1) CHF exacerbation: Status: Acute (2) Paroxysmal atrial flutter: Status: Acute DS: Summary Hospital Course Hospital Course: 68-year-old male with history of asthma/COPD overlap not on home O2, [id number] type 2 diabetes, GERD, BPH, hyperlipidemia, PTSD, hypertension, ANJELICA on CPAP, mitral regurgitation, persistent atrial fibrillation scheduled for cardioversion on Friday anticoagulated with Eliquis presents to the ED earlier today for evaluation of sore throat, occasionally productive cough with clear sputum, labored breathing, and malaise. He states over the last week he has also been experiencing increase in bilateral lower extremity edema. There is also some nausea but no vomiting. Reports chronic orthopnea that has worsened over the last week. No fevers, chills, vomiting, dysuria, hematuria, increased urinary frequency, decreased urinary output, lightheadedness, palpitations, shortness of breath at rest, chest pain. Since arrival, heart rates have been variable ranging 40s -103 but on exam, primarily high 50s-60s. No fevers or hypotension. He is reporting some anxiety. There is no sustained hypoxia. No leukocytosis. Platelets 90. Renal function baseline, electrolyte levels normal. Total bilirubin 1.4, AST/ALT within normal limits. Troponin levels within normal limits. BNP 186. Negative for COVID-19, RSV, influenza, strep pyogenes. CTA of the chest negative for pulmonary embolisms but shows pulmonary edema with small to moderate bilateral pleural effusions. No focal consolidation. No sick contacts at home, but reports his was recently at SNF and he did visit often. He follows with Dr. Fernando and most recent echo in 12/2023 showed normal LV systolic function with EF 55-60% but indeterminate diastolic dysfunction. He is scheduled for cardioversion on Friday. Hospital course: Patient was admitted to the hospital for CHF exacerbation, mild acute COPD exacerbation( RPP -also has entro/rhino virus URi) in addition patient had persistent atrial fibrillation : Patient was started on nebs, steroids, antibiotics, added Lasix IV, in addition amiodarone given and seen by Cardiology-patient got cardioversion yesterday: With above management patient seems to be improved significantly. Hypokalemia repleted and resolved. Discussed with cardiology patient will be going home with amiodarone 200 mg daily, continue spironolactone, continue uninterrupted Eliquis. Patient Lasix adjusted with p.o. 40 mg daily. CHF education-monitor weight, leg edema if gaining weight 2 lb or more in a week consider outpatient diuretic adjustment. Patient has chronic thrombocytopenia: Platelets somewhat lower than baseline in 90s maintaining from last 2 days. Monitor CBC outpatient. Plan: amiodarone 200 mg daily, continue spironolactone, continue uninterrupted Eliquis. Patient Lasix adjusted with p.o. 40 mg daily. complete doxycylcine 100 mg po bid for 2 more days for acute bronchitis . Potassium 10 mEq p.o. daily as well as magnesium 400 mg daily limited supply added(please see discharge instruction). Amlodipine 2.5 mg daily added-patient says that he possibly has white coat hypertension-told the patient to monitor blood pressures at home and if consistently above 140s then may consider introducing amlodipine. Monitor CBC and BMP outpatient in 1 week. Follow-up with PCP and Cardiology outpatient. She is Time Attestation Total time managing care of this patient today: 40 mintues. Discharge Coordination Time (in mins): 40 min Quality: Safe Use of Opioids Does Pt have an Active Cancer Diagnosis on the Problem List?: No Quality: Stroke Does the patient have a stroke diagnosis?: No Physical Exam Vital Signs: Vital Signs: Last Vital Signs Temp 97.2 F 02/05/24 08:00 Pulse 81 02/05/24 08:03 Resp 16 02/05/24 08:03 BP 171/81 H 02/05/24 09:03 Pulse Ox 95 02/05/24 08:00 O2 Del Method Nasal Cannula 02/05/24 08:00 O2 Flow Rate 2 02/05/24 08:00 Oxygen Flow Rate 2 02/01/24 18:25 BMI result Body Mass Index 31.7 Appearance: Alert.? Oriented X3.? has cough cvs: rrr, [id number] , trace edema res: air entry fair , has few scatter rhonchii abd: no rebound or guarding ,nt, bs present. ext pulses present , no cyanosis . neuro: axo3 , nonfocal. DS: Data Data Completed and Pending Labs on day of discharge: Laboratory Results - last 24 hr 02/04/24 02/04/24 02/04/24 12:14 16:24 20:43 Sodium Potassium Chloride Carbon Dioxide Anion Gap BUN Creatinine Estim Creat Clear Calc Estimated GFR POC Glucose 117 H 117 H 149 H Random Glucose Calcium 02/05/24 02/05/24 06:27 07:30 Sodium 144 Potassium 4.2 D Chloride 107 Carbon Dioxide 28 Anion Gap 13 BUN 13 Creatinine 0.68 Estim Creat Clear Calc 116.4 Estimated GFR > 60 POC Glucose 119 H Random Glucose 122 H Calcium 8.6 Preliminary micro results at discharge 02/01/24 15:23 Blood Culture - Preliminary Blood - Venous No growth after 48 hours. 02/01/24 15:10 Blood Culture - Preliminary Blood - Venous No growth after 48 hours. Imaging Chest x-ray: Radiologist's impression: ITS Impressions Chest X-Ray 02/01/24 12:49 IMPRESSION: * There is a 3.9 cm nodular opacity in medial right lung base, unclear if this could correspond to a prominent hilar structure such as a dilated pulmonary artery versus an infrahilar lesion and recommend correlation with contrast-enhanced CT chest. * New small bilateral pleural effusions with streaky bibasilar opacities which may reflect atelectasis given effusions with superimposed aspiration or infection. * Bronchial wall thickening which can be seen with a small airways process such as asthma or atypical/viral infection. Electronically signed by: Morena Chi MD 02/01/2024 02:08 PM EDT RP Chest CTA 02/01/24 16:43 IMPRESSION: No evidence of pulmonary embolism. Findings suggesting pulmonary edema with [id number] bilateral pleural effusions. Additional findings, as above. Electronically signed by: Mart Parikh MD 02/01/2024 05:31 PM EDT RP Discharge Plan Discharge Anticipated Discharge Date/Time: 02/05/24 10:53 Patient Disposition: Home, Self-Care Discharge Diagnosis: afib Referrals: Jamar Atkinson MD [Primary Care Provider] - 1 Week Discharge Medications: New furosemide 40 mg Tablet 40 mg PO DAILY Qty: 90 0RF Protocol: Hold for SBP< HOLD for SBP < : 90 doxycycline hyclate 100 mg capsule 100 mg PO BID Qty: 4 0RF potassium chloride 10 mEq capsule, extended release 10 meq PO DAILY Qty: 20 0RF magnesium oxide 400 mg (241.3 mg magnesium) Tablet 400 mg PO DAILY Qty: 90 0RF amlodipine 2.5 mg tablet 2.5 mg PO BID Qty: 30 0RF Rx Instructions: bp flactuating -use only if bp persistently above 140/90mmhg Continued Combivent Respimat 20-100 mcg/actuation Mist 1 puff INHALATION Q4H PRN (Reason: Shortness Of Breath Or Wheezing) terazosin 10 mg Capsule 10 mg PO DAILY spironolactone 25 mg tablet 12.5 mg PO DAILY Qty: 90 5RF amiodarone 200 mg tablet 200 mg PO DAILY Qty: 90 5RF fluticasone propionate [Flonase Allergy Relief] 50 mcg/actuation spray,suspension 1 spray intranasal DAILY omeprazole 20 mg capsule,delayed release(DR/EC) 40 mg PO DAILY@0630 cholecalciferol (vitamin D3) 25 mcg (1,000 unit) capsule 50 mcg PO DAILY saw palmetto 160 mg capsule 320 mg PO DAILY Rx Instructions: give with food (meal/snack) Asmanex Twisthaler 220 mcg/ actuation (30) aerosol powdr breath activated 2 inh inhalation BID finasteride 5 mg tablet 5 mg PO DAILY clonazepam 0.5 mg tablet 0.5 mg PO DAILY PRN (Reason: Anxiety) epinephrine [EpiPen] 0.3 mg/0.3 mL auto-injector 0.3 mg IM Q10M PRN (Reason: Allergic Reaction) Rx Instructions: for 2 doses tiaagxscml-liverldbokmnv-jakd 50-325-40 mg tablet 1 tab PO DAILY PRN (Reason: Migraine Headache) atorvastatin 20 mg tablet 20 mg PO BEDTIME semaglutide (weight loss) 0.5 mg/0.5 mL pen injector 1 mg subcut CHASE Rx Instructions: administer weeks 5 through 8 of therapy Eliquis 5 mg tablet 5 mg PO BID mecobalamin (vitamin B12) 1,000 mcg lozenge 1,000 mcg PO DAILY Rx Instructions: allow to dissolve in mouth OR may chew lightly before swallowing metformin 750 mg tablet extended release 24 hr 750 mg PO BID Rx Instructions: Hold for 3 days Discharge Orders: Discharge Order (Routine); Ordered 02/05/24 Ordered By: Tucker Harris Diet: Advance to usual diet Activity on Discharge: As tolerated Stand Alone Forms: Patient Portal Discharge page Print Language: Kittitian Other Ambulatory Orders: Basic Metabolic Panel (Routine) Timeframe: 1 Week Facility: [facility] - Location: Laboratory Ordered By: Tucker Harris Complete Blood Count no Diff (Routine) Timeframe: 1 Week Facility: [facility] - Location: Laboratory Ordered By: Tucker Harris Care Plan Goals: Patient was admitted to the hospital for CHF exacerbation, mild acute COPD exacerbation( RPP -also has entro/rhino virus URi) in addition patient had persistent atrial fibrillation : Patient was started on nebs, steroids, antibiotics, added Lasix IV, in addition amiodarone given and seen by Cardiology-patient got cardioversion yesterday: With above management patient seems to be improved significantly. Hypokalemia repleted and resolved. Discussed with cardiology patient will be going home with amiodarone 200 mg daily, continue spironolactone, continue uninterrupted Eliquis. Patient Lasix adjusted with p.o. 40 mg daily. CHF education-monitor weight, leg edema if gaining weight 2 lb or more in a week consider outpatient diuretic adjustment. Patient has chronic thrombocytopenia: Platelets somewhat lower than baseline in 90s maintaining from last 2 days. Monitor CBC outpatient. Health Concerns: As above. Plan of Treatment: amiodarone 200 mg daily, continue spironolactone, continue uninterrupted Eliquis. Patient Lasix adjusted with p.o. 40 mg daily. complete doxycylcine 100 mg po bid for 2 more days for acute bronchitis . Potassium 10 mEq p.o. daily as well as magnesium 400 mg daily limited supply added(please see discharge instruction). Amlodipine 2.5 mg daily added-patient says that he possibly has white coat hypertension-told the patient to monitor blood pressures at home and if consistently above 140s then may consider introducing amlodipine. Monitor CBC and BMP outpatient in 1 week. Follow-up with PCP and Cardiology outpatient. Assessment: As above.
--- NOTE | 2024-02-05 11:19 | HO.POSTANES ---
Post Anesthesia Evaluation Post Anesthesia Evaluation Date of Service: 02/04/24 Vital Signs: Vital Signs Temp Pulse Resp BP Pulse Ox O2 Del Method O2 Flow Rate 02/05/24 09:03 171/81 H 02/05/24 08:51 171/81 H 02/05/24 08:03 81 16 02/05/24 08:00 97.2 F 68 18 171/81 H 95 Nasal Cannula 2 02/05/24 03:32 98.0 F 71 20 135/70 88 L Room Air Anesthesia: General Mental Status: Awake Pain Control: Satisfactory Nausea/Vomiting: None Hydration: Adequate Anesthesia-Related Issues: No Anes. Related Issues
[2024-02-05 11:44] LABS: Glucose, Whole Blood 123 mg/dL (60-115)
[2024-02-05] MEDS: amLODIPine Besylate 2.5 MG TABLET PO (11:57)
--- NOTE | 2024-02-05 12:04 | MHC.CM.PN ---
Per MD rounds patient is ready for discharge. Discharge to home selfcare. A family member will provide transport home.
== END 2024-02-05 13:02 | disposition home or self-care (01) | DRG 291 ==
LOC: HO.ED 19:07 → HO.EDOVER 19:14 → HO.IMC 02-02 15:32
PROVIDERS: Internal Medicine; Internal Medicine Cardiovascular Disease; Nurse Practitioner Family; Physician Assistant; Admitting Provider Physician Assistant; Emergency Provider Emergency Medicine Emergency Medical Services; PCP Internal Medicine; Referring Provider Internal Medicine; Visit Provider Internal Medicine
PROC: 5A2204Z Restoration of Cardiac Rhythm, Single (ICD-10-PCS; principal; 2024-02-04 14:00)
DX: I11.0 Hypertensive heart disease with heart failure (principal); I50.33 Acute on chronic diastolic (congestive) heart failure; I48.19 Other persistent atrial fibrillation; J44.1 Chronic obstructive pulmonary disease with (acute) exacerbation; I48.92 Unspecified atrial flutter; J44.0 Chronic obstructive pulmonary disease with (acute) lower respiratory infection; J20.9 Acute bronchitis, unspecified; G47.33 Obstructive sleep apnea (adult) (pediatric); D64.9 Anemia, unspecified; D69.6 Thrombocytopenia, unspecified; N40.0 Benign prostatic hyperplasia without lower urinary tract symptoms; B97.89 Other viral agents as the cause of diseases classified elsewhere; B97.10 Unspecified enterovirus as the cause of diseases classified elsewhere; F43.10 Post-traumatic stress disorder, unspecified; Z95.2 Presence of prosthetic heart valve; Z20.822 Contact with and (suspected) exposure to COVID-19; Z87.891 Personal history of nicotine dependence; Z79.01 Long term (current) use of anticoagulants; Z79.84 Long term (current) use of oral hypoglycemic drugs; Z79.51 Long term (current) use of inhaled steroids; Z79.85 Long-term (current) use of injectable non-insulin antidiabetic drugs; Z79.899 Other long term (current) drug therapy
CPT/HCPCS: 0241U; 36415; 71046; 71275; 80048; 80053; 82947; 83605; 83735; 83880; 84484; 85025; 85610; 85730; 87040; 87633; 87651; 92960; 93005; 94640; 99285; J0696; J1940; J2060; J2704; J2919; J3480; J7120; Q9967

== ENCOUNTER → 2024-02-01 18:58 | Outpatient (BNV) | payer MEDICARE, OTHER, SELFPAY | PROVIDERS: Admitting Provider Physician Assistant; Emergency Provider Emergency Medicine Emergency Medical Services; PCP Internal Medicine; Visit Provider Internal Medicine Cardiovascular Disease | DX: I50.33 Acute on chronic diastolic (congestive) heart failure (principal); I48.92 Unspecified atrial flutter | CPT/HCPCS: 92960; 99222; 99232; 99233 ==

== ENCOUNTER → 2024-02-01 18:58 | Outpatient (BNV) | payer MEDICARE, OTHER, SELFPAY | PROVIDERS: Admitting Provider Physician Assistant; Emergency Provider Emergency Medicine Emergency Medical Services; PCP Internal Medicine; Visit Provider Internal Medicine | DX: I50.33 Acute on chronic diastolic (congestive) heart failure (principal) | CPT/HCPCS: 99223; 99232; 99239 ==

== ENCOUNTER 2024-02-11 15:53 | Outpatient (REF) | payer MEDICARE, OTHER, SELFPAY ==
[2024-02-11 17:14] LABS: Hemoglobin 13.7 g/dl (14.0-18.0); Mean Corpuscular HGB Conc 33.4 g/dl (31.0-36.0); Mean Corpuscular Hemoglobin 29.7 pg (27.0-33.0); Mean Corpuscular Volume 88.9 fL (80.0-98.0); Mean Platelet Volume 10.1 fL (9.4-12.4); Platelet Count 135 X10*3/uL (160-400); Red Blood Count 4.61 X10*6/uL (4.60-5.80); Red Cell Distribution Width 14.1 % (11.0-16.0); White Blood Count 6.4 X10*3/uL (4.8-10.8)
[2024-02-11 17:32] LABS: B Type Natriuretic Peptide 148 pg/mL (<100)
[2024-02-11 17:41] LABS: Alanine Aminotransferase 18 U/L (0-40); Albumin Level 4.2 g/dL (3.5-5.0); Alkaline Phosphatase 45 U/L (39-117); Anion Gap 14 (12-20); Aspartate Amino Transferase 18 U/L (5-37); Bilirubin Total 0.8 mg/dL (0.0-1.0); Blood Urea Nitrogen 24 mg/dL (9-16); Calcium 10.1 mg/dL (8.4-10.2); Carbon Dioxide 29 mmol/L (22-29); Chloride 105 mmol/L (96-108); Estimated Glomerular Filt Rate > 60; Glucose Random 134 mg/dL (60-115); Potassium 4.2 mmol/L (3.3-5.1); Sodium 144 mmol/L (135-145); Total Protein 7.3 g/dL (6.5-8.0)
[2024-02-11 17:44] LABS: Magnesium 1.7 mg/dL (1.6-2.6)
[2024-02-11 17:45] LABS: Estimated Average Glucose 137 mg/dL; Hemoglobin A1c % 6.4 % (<6.0); Total Hemoglobin (HGBA1C) 3486.9322 umol/L
== END 2024-02-11 15:54 | disposition home or self-care (01) ==
LOC: HO.LAB 15:53
PROVIDERS: Internal Medicine; PCP Internal Medicine; Visit Provider Internal Medicine
DX: I48.91 Unspecified atrial fibrillation (principal); J44.9 Chronic obstructive pulmonary disease, unspecified; E11.9 Type 2 diabetes mellitus without complications; I45.10 Unspecified right bundle-branch block; D69.6 Thrombocytopenia, unspecified
CPT/HCPCS: 36415; 80053; 83036; 83735; 83880; 85027

== ENCOUNTER → 2024-02-18 06:45 | Outpatient (REF) | payer MEDICARE, OTHER, SELFPAY ==
--- NOTE | 2024-02-18 06:48 | HM_ITS ---
Conclusion: 1. Baseline was atrial fibrillation/flutter with average heart of 69 beats per minute with good rate control 2. No significant pauses noted 3. Patient marked the counter 15 times with reported symptoms of fluttering, thumping, all of which correlated with baseline atrial fibrillation MTDD
== END ==
LOC: HO.CARD 06:45
PROVIDERS: PCP Internal Medicine; Visit Provider Internal Medicine
DX: I48.92 Unspecified atrial flutter (principal)
CPT/HCPCS: 93242

== ENCOUNTER → 2024-02-18 06:48 | Outpatient (BNV) | payer MEDICARE, OTHER, SELFPAY | PROVIDERS: PCP Internal Medicine; Visit Provider Internal Medicine Cardiovascular Disease | DX: I48.91 Unspecified atrial fibrillation (principal) | CPT/HCPCS: 93244 ==

== ENCOUNTER → 2024-02-26 14:36 | Outpatient (REF) | payer MEDICARE, OTHER, SELFPAY ==
--- NOTE | 2024-02-26 14:40 | CA_ITS ---
Transthoracic Echocardiogram Patient (Last, First, Middle): Jared Jama, Gender: Male Date of : 1955 Age: 68 Procedure Date: 02/26/2024 Procedure Type: Transthoracic Echocardiogram Location: OP Height: 177.8 cm Weight: 89.81 kg BSA: 2.08 m2 Heart Rate: bpm BP: 124 / 72 mmHg Software Quality Specialist: TO Referring MD: James Fernando MD Symptoms: I48.92 - Unspecified atrial flutter Study Quality: Adequate Conclusions: - 1. Severe stenosis of the bioprosthetic valve 2. Normal LV ejection fraction 55-60% Findings Left Ventricle Normal left ventricular size and systolic function. There is mildly increased left ventricular wall thickness. The visually estimated ejection fraction is between 55-60%. Mitral Valve A bioprosthetic mitral valve is present. The prosthetic mitral valve appears to be functioning abnormally. Echo findings are consistent with stenosis of the mitral valve prosthesis. there appears to be severe stenosis of the bioprosthetic valve. Recommendations, Care & Conclusions Recommend a DOREEN. Measurements 2D Linear Measurements IVSd: 1.40 0.6-0.9/0.6-1.0 cm LVIDd: 5.60 3.9-5.3/4.2-5.9 cm LVIDd Index: 2.69 2.4-3.2/2.2-3.1 cm/m2 LVIDs: 4.19 2.0-3.6 cm LVPWd: 1.10 0.7-1.1 cm LA Diam: 5.00 2.7-3.8/3.0-4.0 cm LAIDs Index: 2.40 1.5-2.3 cm/m2 LV Mass: 370.06 67-162/88-224 g LV Mass Index: 177.91 43-95/49-115 g/m2 LVOT Diam: 2.40 3.0+(-)1.3 cm 2D Systolic Function EF 4C: 58.20 >55% EF 2C: 53.30 >55% EF BiP: 55.40 >55% Mitral Valve MV VTI: 0.96 MV Pk Jose: 2.24 MV Mn Jose: 1.51 MV Pk Grad: 20.00 MV Mn Grad: 11.00 MV Pk E: 2.06 MV PK A: 1.42 MV Decel Time: 336.00 E/A: 1.50 E'Lateral: 4.35 E'Medial: 4.46 E/E' Med: 46.20 E/E' Lat: 47.40 PHT: 98.00 MVA PHT: 2.24 MVA Continuity: 0.96 Decel [place]: 6.15 LVOT LVOT Pk Jose: 0.97 LVOT Mn Jose: 0.67 LVOT VTI: 0.20 LVOT Pk Grad: 4.00 LVOT Mn Grad: 2.00 LVOT Diam: 2.40 LVOT Area: 4.52 Diastolic Function MV Pk E: 2.06 MV Pk A: 1.42 E/A: 1.50 E'Medial: 4.46 E/E' Med: 46.20 E' Laterial: 4.35 E/E' Lat: 47.40 Tricuspid Valve RA Press: 8.00 Updated in Other Vendor System with Status of Final James Fernando MD electronically signed on 02/27/2024 4:12:33 PM with status of Final
== END ==
LOC: HO.CARD 14:36
PROVIDERS: PCP Internal Medicine; Visit Provider Internal Medicine Cardiovascular Disease
DX: I48.92 Unspecified atrial flutter (principal); I50.9 Heart failure, unspecified; Z95.2 Presence of prosthetic heart valve
CPT/HCPCS: 93308

== ENCOUNTER → 2024-02-26 14:40 | Outpatient (BNV) | payer MEDICARE, OTHER, SELFPAY | PROVIDERS: PCP Internal Medicine; Visit Provider Internal Medicine Cardiovascular Disease | DX: T82.857A Stenosis of other cardiac prosthetic devices, implants and grafts, initial encounter (principal) | CPT/HCPCS: 93308 ==

== ENCOUNTER 2024-03-04 13:48 | Outpatient (AMB) | payer MEDICARE, OTHER, SELFPAY ==
[2024-03-04 13:51] VITALS: BP 122/80; PULSE 66; BMI 29.5
--- NOTE | 2024-03-04 13:51 | A.OFFVIS_ITS ---
Vital Signs 03/04/24 13:51 Height 5 ft 9 in Weight 199 lb 11.821 oz BMI 29.5 BP 122/80 Blood Pressure Location Rt brachial Position Sitting Pulse 66 Pulse Source Monitor Intake Visit Reasons: Cath? Customer Service Receptionist Required: No Liquid Fertilizer Servicer: Liquid Fertilizer Servicer Present Allergies DUSTIN Inhibitors [Dustin Inhibitors] Allergy (Severe, Verified 03/04/24 13:54) Anaphylaxis aspirin Allergy (Severe, Verified 03/04/24 13:54) Anaphylaxis NSAIDS (Non-Steroidal Anti-Inflamma [NSAIDS (NON-STEROIDAL ANTI-INFLAMMA] Allergy (Severe, Verified 03/04/24 13:54) Anaphylaxis pineapple [PINEAPPLE] Allergy (Severe, Verified 03/04/24 13:54) Angioedema thimerosal [Thimerosal] Allergy (Severe, Verified 03/04/24 13:54) Angioedema Cephalosporins [CEPHALOSPORINS] Allergy (Intermediate, Verified 03/04/24 13:54) Rash fluoxetine [From PROZAC] Allergy (Intermediate, Verified 03/04/24 13:54) REQUIRED HOSPITALIZATION Penicillins Allergy (Intermediate, Verified 03/04/24 13:54) Rash tamsulosin Allergy (Mild, Verified 03/04/24 13:54) tacycardia aspartame [ASPARTAME] Allergy (Unknown, Verified 03/04/24 13:54) Unknown hexachlorophene [From PHISOHEX] Allergy (Unknown, Verified 03/04/24 13:54) Unknown melon Allergy (Unknown, Verified 03/04/24 13:54) Unknown perfume Allergy (Unknown, Verified 03/04/24 13:54) Unknown povidone-iodine [From BETADINE] Allergy (Unknown, Verified 03/04/24 13:54) Unknown soap [Betadine] Allergy (Unknown, Verified 03/04/24 13:54) Unknown codeine [Codeine] Adverse Reaction (Intermediate, Verified 03/04/24 13:54) wakes up combative meperidine [From Demerol] Adverse Reaction (Intermediate, Verified 03/04/24 13:54) Hallucinations monosodium glutamate Adverse Reaction (Intermediate, Verified 03/04/24 13:54) Headache morphine Adverse Reaction (Intermediate, Verified 03/04/24 13:54) wakes up combative dexon Allergy (Unknown, Uncoded 03/04/24 13:54) Unknown GLUE IN SHOES Allergy (Unknown, Uncoded 03/04/24 13:54) UNKNOWN PLASTIC TAPE Allergy (Unknown, Uncoded 03/04/24 13:54) skin problems POLYGLACTIC ACID(DEXON & VICRYL) Allergy (Unknown, Uncoded 03/04/24 13:54) UNKNOWN vicryl Allergy (Unknown, Uncoded 03/04/24 13:54) Unknown Medication List - Last Reconciled 03/04/24 by Gricelda Stanford NP-C amiodarone 200 mg PO DAILY amlodipine 2.5 mg PO BID apixaban (Eliquis) 5 mg PO BID atorvastatin 20 mg PO BEDTIME fbneacmxty-hixsxqiiaggvl-twmy 50-325-40 mg 1 tab PO DAILY PRN cholecalciferol (vitamin D3) 50 mcg PO DAILY clonazepam 0.5 mg PO DAILY PRN epinephrine (EpiPen) 0.3 mg IM Q10M PRN finasteride 5 mg PO DAILY fluticasone propionate 50 mcg/actuation (Flonase Allergy Relief) 1 spray intranasal DAILY furosemide 40 mg See Protocol PO DAILY ipratropium-albuterol 20-100 mcg/actuation (Combivent Respimat) 1 puff inhalation Q4H PRN magnesium oxide 400 mg PO DAILY mecobalamin (vitamin B12) 1,000 mcg PO DAILY metformin ER 750 mg PO BID mometasone (Asmanex Twisthaler) 2 inhalations inhalation BID omeprazole 40 mg PO DAILY@0630 potassium chloride ER 10 mEq PO DAILY saw palmetto 320 mg PO DAILY semaglutide (weight loss) 1 mg subcut CHASE spironolactone 12.5 mg (1/2 x 25 mg) PO DAILY tadalafil (Cialis) 5 mg PO DAILY terazosin 10 mg PO DAILY HPI HPI Cath?: Details: Jared is a 68-year-old male with past medical history of diabetes, hypertension, obstructive sleep apnea, mitral valve replacement, paroxysmal atrial flutter/ fibrillation who was recently admitted to [facility] with increased shortness of breath and treated for pneumonia and Congestive heart failure. During his admission he did have a cardioversion. He had a outpatient Holter monitor and echocardiogram and now presents for follow-up. Today he reports that he has not been feeling well in the last few weeks. He recalls that he felt better for a few days post cardioversion and then symptoms of lightheadedness, fatigue, shortness of breath resumed. At this point he continues to have shortness of breath with activity such as walking even short distances. He states prior to being diagnosed with atrial fibrillation he was walking 3 miles daily. He sleeps with 3 pillows which is not entirely new for him. Intermittent coughing with phlegm production is present. He has some mild leg edema which is overall improved since being started on daily Lasix. No chest discomfort at rest or with activities. He will feel his heart pounding irregularly and strong. He has not been having documented rapid rates. He does have dizziness that comes in waves that can occur with sitting or standing. He has not had any falls, presyncope or syncope. No bleeding issues reported with Eliquis use. is present. [facility] Medical History Atrial flutter Elevated cholesterol History of GI diverticular bleed BPH (benign prostatic hyperplasia) History of blood transfusion GERD (gastroesophageal reflux disease) Type 2 diabetes mellitus Depression with anxiety PTSD (post-traumatic stress disorder) Migraine COPD, mild Asthma HTN (hypertension) Obstructive sleep apnea Enlarged RV (right ventricle) Mitral regurgitation Surgical History History of esophagogastroduodenoscopy (EGD) H/O colonoscopy History of excision of lesion (06/25/22) History of arthroscopy of right knee History of left inguinal hernia repair History of repair of right rotator cuff History of repair of left rotator cuff History of mitral valve replacement S/P MVR (mitral valve replacement) Hx of cardiac cath Family History Father Rheumatic fever Mother No problems noted. Sister Hx of aortic valve repair Brother Mitral valve replaced Social History Household Members: Family Housing: House Do you presently have visiting nurse or other home services: No Comment: pt refusing precautions steady on feet Patient Tobacco Use Status: Former Tobacco user Advance Directives Date on File: 10/29/21 service: Yes Current occupational status: retired Current occupation: ambidextrous, 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 Review of Systems Const All systems reviewed & are unremarkable except as noted in HPI and below ENT Reports dizziness Card Denies chest pain, Denies chest pain at rest, Denies chest pain with activity, Denies rapid heart rate, Denies pedal edema, Denies edema, Denies leg edema, Denies lightheadedness, Reports palpitations, Reports dyspnea, Reports dyspnea on exertion and Denies orthopnea Resp Denies cough, Reports dyspnea and Reports dyspnea on exertion GI Denies hematochezia and Denies change in stool character Musc Denies abnormal gait, Denies limited range of motion, Denies muscle cramps, Denies muscle weakness, Denies numbness, Denies radiating pain into limb, Denies stiffness and Denies tingling Neuro Denies abnormal gait, Reports dizziness, Denies numbness and Denies tingling Endo Reports palpitations Physical Exam Vital Signs: Last Vital Signs Pulse 66 03/04/24 13:51 BP 122/80 03/04/24 13:51 BMI result Body Mass Index 29.5 Const General: cooperative, healthy appearing, comfortable and no acute distress Orientation/consciousness: patient oriented x3 Neck Neck: Yes normal visual inspection Resp Effort & Inspection: normal respiratory effort Auscultation: clear to auscultation bilaterally, no rales, no rhonchi and no wheezes Cardio Jugular venous distension: no JVD Rate: regular rate Rhythm: abnormal rhythm Heart sounds: S1 normal heart sound present, S2 normal heart sound present, no murmurs and no rubs Neuro General: patient oriented x3 Extrem Other: sock marking present General: Yes normal to inspection Psych Appearance: grossly normal Mental Status: mental status grossly normal Speech and movement: Normal speech and movement present Office Procedures EKG Details: Today, read by me, atrial flutter, right bundle branch block, rate 66, JT index 108.9 [id number], Complete Assessment & Plan Assessment & Plan (1) Atrial flutter: Code(s): I48.92 - Unspecified atrial flutter Category: Medical Qualifiers: Atrial flutter type: typical Qualified Code(s): I48.3 - Typical atrial flutter Plan: Newer history of atrial flutter. He was recently admitted to [facility] with pneumonia/Congestive heart failure. He was scheduled for an outpatient cardioversion but it was done while he was inpatient. He had been loaded with amiodarone and had cardioversion 02/04/2024. An outpatient Holter monitor on 02/18/2024 showed atrial fibrillation/flutter, average rate 69. His echocardiogram from 02/26/2024 is showing severe stenosis of the bioprosthetic mitral valve, EF 55-60%. EKG done today showing atrial flutter, right bundle branch block, rate 66, JT index 108.9. He now has persistent atrial fibrillation/flutter, which may be related to his severe mitral stenosis. Discussed with Dr. Montero. At this time will treat him with heart rate control. Will stop amiodarone. Patient states he is sensitive to medications. Will restart diltiazem at a lower dose than his last documented dose. Will start diltiazem CD 120 mg daily. will monitor his pulse rates and call us if his heart rate is running greater than 100 at which time his diltiazem dose will be increased. He previously had been on metoprolol as well and was having slow heart rates with evidence of junctional beats. Continue Eliquis for anticoagulation. No bleeding issues reported. (2) S/P MVR (mitral valve replacement): Comment: 33 mm bioprosthetic Sarika Edward mitral valve replacement with Chord reconstruction, April 2017. Minimal coronary artery disease prior to surgery. Code(s): Z95.2 - Presence of prosthetic heart valve Category: Surgical Plan: History of mitral valve replacement, 2016. Echocardiogram done 12/31/2023 showed EF 55-60%, bioprosthetic mitral valve with gradient 12 mmHg, moderate pulmonary hypertension. He was admitted to [facility] 02/01/24 with increased shortness of breath and treated for pneumonia and Congestive heart failure. He was diuresed and discharged with Lasix 40 mg daily. A repeat echocardiogram done on 02/26/2024 shows severe stenosis of the bioprosthetic mitral valve. This was reviewed by Dr. Fernando. Patient will need a diagnostic right and left heart catheterization to evaluate mitral valve and coronaries. If he in fact does have severe mitral stenosis then plan is to refer him to Cardiac surgery for mitral valve replacement, possible Maze procedure. Discussed this with him and he states understanding. Catheterization details and risks reviewed. Instructed to hold Eliquis 48 hours prior to the procedure. Stroke risk while off Eliquis reviewed with him. Will order preprocedure labs and will notify our blast furnace helper and Dr. Taylor of this plan for this procedure. Cardiology follow-up will be 2 weeks postprocedure. (3) Prosthetic valve dysfunction: Code(s): T82.09XA - Other mechanical complication of heart valve prosthesis, initial encounter Category: Medical Plan: As above (4) CHF (congestive heart failure): Code(s): I50.9 - Heart failure, unspecified Category: Medical Plan: Recent [facility] admission with heart failure. On exam today he does not appear fluid overloaded. He is reporting shortness of breath with activity, sleeps with 3 pillows. Continue daily Lasix. Will add BNP to upcoming labs. (5) Thrombocytopenia: Code(s): D69.6 - Thrombocytopenia, unspecified Category: Medical Plan: Reported history of chronic thrombocytopenia. Most recent labs from 02/11/2024 showed platelets 135. He has no bleeding issues reported. He continues on Eliquis. (6) Hospital discharge follow-up: Code(s): Z09 - Encounter for follow-up examination after completed treatment for conditions other than malignant neoplasm Category: Medical Plan: As above (7) Mitral stenosis: Code(s): I05.0 - Rheumatic mitral stenosis Category: Medical Plan: As above Plan Time spent on chart review, documentation, interview and assessment Orders: Orders Cardiac Cath RT Diagnostic Today I05.0 - Rheumatic mitral stenosis, T82.09XA - Other mechanical complication of heart valve prosthesis, initial encounter, Z95.2 - Presence of prosthetic heart valve Cardiac Cath LT Diagnostic Today I05.0 - Rheumatic mitral stenosis, T82.09XA - Other mechanical complication of heart valve prosthesis, initial encounter, Z95.2 - Presence of prosthetic heart valve Magnesium Today I50.9 - Heart failure, unspecified B Type Natriuretic Peptide Today I48.92 - Unspecified atrial flutter, I50.9 - Heart failure, unspecified, Z95.2 - Presence of prosthetic heart valve Basic Metabolic Panel Today I48.92 - Unspecified atrial flutter, I50.9 - Heart failure, unspecified, Z95.2 - Presence of prosthetic heart valve Complete Blood Count Auto Diff Today I05.0 - Rheumatic mitral stenosis Prothrombin Time INR Today D69.6 - Thrombocytopenia, unspecified, I05.0 - Rheumatic mitral stenosis Medications: New diltiazem HCl CD Stop Amiodarone, Start Diltiazem 120 mg PO DAILY 30 caps 2RF Discontinued amiodarone Discontinued Reason: Doctor's Order 200 mg PO DAILY 90 tabs 5RF amlodipine bp flactuating -use only if bp persistently above 140/90mmhg Discontinued Reason: Doctor's Order 2.5 mg PO BID 30 tabs 0RF Coding Level of Care Code Est Pt Level 4 (25986) Complex EM visit Add On G2211 Diagnoses Typical atrial flutter I48.3 Atrial flutter type: typical S/P MVR (mitral valve replacement) Z95.2 Prosthetic valve dysfunction T82.09XA CHF (congestive heart failure) I50.9 Thrombocytopenia D69.6 Hospital discharge follow-up Z09 Mitral stenosis I05.0 CPT Codes EKG - CPT: [id number], Complete ([id number]) Time Spent (min) 40
== END 2024-03-04 14:45 | disposition home or self-care (01) ==
PROVIDERS: PCP Internal Medicine; Visit Provider Nurse Practitioner Family
DX: I48.3 Typical atrial flutter (principal); Z95.2 Presence of prosthetic heart valve; T82.09XA Other mechanical complication of heart valve prosthesis, initial encounter; I50.9 Heart failure, unspecified; D69.6 Thrombocytopenia, unspecified; Z09 Encounter for follow-up examination after completed treatment for conditions other than malignant neoplasm; I05.0 Rheumatic mitral stenosis
CPT/HCPCS: 93010; 99214; G2211

== ENCOUNTER → 2024-03-04 13:48 | Outpatient (BNVA) | payer MEDICARE, OTHER, SELFPAY | PROVIDERS: PCP Internal Medicine; Visit Provider Nurse Practitioner Family | DX: I11.0 Hypertensive heart disease with heart failure (principal); I50.9 Heart failure, unspecified; I48.3 Typical atrial flutter; D69.6 Thrombocytopenia, unspecified; I05.0 Rheumatic mitral stenosis; I48.92 Unspecified atrial flutter; G47.33 Obstructive sleep apnea (adult) (pediatric); T82.09XA Other mechanical complication of heart valve prosthesis, initial encounter; X58.XXXA Exposure to other specified factors, initial encounter; Z09 Encounter for follow-up examination after completed treatment for conditions other than malignant neoplasm | CPT/HCPCS: 93005; 99212 ==

== ENCOUNTER 2024-03-05 05:59 | Outpatient (REF) | payer MEDICARE, OTHER, SELFPAY ==
[2024-03-05 06:13] LABS: MANUAL DIFF FLAG NO
[2024-03-05 06:50] LABS: Basophils Absolute Auto 0.1 X10*3/uL (0.0-0.2); Basophils Percent Auto 0.8 % (0-2); Eosinophils Absolute Auto 0.2 X10*3/uL (0.0-0.4); Eosinophils Percent Auto 2.7 % (0-4); Hematocrit 41.2 % (42.0-52.0); Hemoglobin 13.6 g/dl (14.0-18.0); Imm Gran Abs Auto 0.02 X10*3/uL (0.00-0.03); Imm Gran Pct Auto 0.3 % (0.0-0.4); Lymphocytes Absolute Auto 0.9 X10*3/uL (1.2-4.9); Lymphocytes Percent Auto 15.3 % (20-40); Mean Corpuscular Hemoglobin 29.7 pg (27.0-33.0); Mean Platelet Volume 10.1 fL (9.4-12.4); Monocytes Absolute Auto 0.5 X10*3/uL (0.1-1.2); Monocytes Percent Auto 8.1 % (2-11); Neutrophils Absolute Auto 4.4 x10*3/uL (2.0-8.3); Neutrophils Percent Auto 72.8 % (45-73); Red Blood Count 4.58 X10*6/uL (4.60-5.80)
[2024-03-05 06:51] LABS: Platelet Count 88 X10*3/uL (160-400)
[2024-03-05 06:54] LABS: INTERNATIONAL NORM RATIO 1.3 (0.9-1.1); Prothrombin Time 15.3 SEC (10.9-12.4)
[2024-03-05 07:07] LABS: Anion Gap 15 (12-20); Blood Urea Nitrogen 31 mg/dL (9-16); Calcium 9.7 mg/dL (8.4-10.2); Carbon Dioxide 28 mmol/L (22-29); Chloride 104 mmol/L (96-108); Estimated Glomerular Filt Rate > 60; Glucose Random 139 mg/dL (60-115); Magnesium 1.9 mg/dL (1.6-2.6); Potassium 4.6 mmol/L (3.3-5.1); Sodium 142 mmol/L (135-145)
[2024-03-05 07:15] LABS: B Type Natriuretic Peptide 48 pg/mL (<100)
== END 2024-03-05 06:00 | disposition home or self-care (01) ==
LOC: HO.LAB 05:59
PROVIDERS: Absent Provider Internal Medicine Cardiovascular Disease; PCP Internal Medicine; Visit Provider Nurse Practitioner Family
DX: I50.9 Heart failure, unspecified (principal); I48.92 Unspecified atrial flutter; Z95.2 Presence of prosthetic heart valve; D69.6 Thrombocytopenia, unspecified; I05.0 Rheumatic mitral stenosis
CPT/HCPCS: 36415; 80048; 83735; 83880; 85025; 85610

== ENCOUNTER → 2024-03-23 23:59 | Outpatient (BNV) | payer MEDICARE, OTHER, SELFPAY | PROVIDERS: PCP Internal Medicine; Visit Provider Internal Medicine Cardiovascular Disease | DX: I50.30 Unspecified diastolic (congestive) heart failure (principal) | CPT/HCPCS: 93460; 99152 ==

== ENCOUNTER 2024-04-08 15:12 | Outpatient (AMB) | payer MEDICARE, OTHER, SELFPAY ==
--- NOTE | 2024-04-08 15:24 | A.OFFVIS_ITS ---
Vital Signs 04/08/24 15:28 Height 5 ft 9 in Weight 198 lb 6.656 oz BMI 29.3 BP 116/78 Blood Pressure Location Lt brachial Position Sitting Pulse 63 Intake Visit Reasons: follow-up post cardiac cath Intake Note: Follow-up Cardiac cath with ekg c/o sob Director Part Required: No Chemistry Research Assistant: Chemistry Research Assistant Present Accompanied by: Spouse Allergies DUSTIN Inhibitors [Dustin Inhibitors] Allergy (Severe, Verified 03/04/24 13:54) Anaphylaxis aspirin Allergy (Severe, Verified 03/04/24 13:54) Anaphylaxis NSAIDS (Non-Steroidal Anti-Inflamma [NSAIDS (NON-STEROIDAL ANTI-INFLAMMA] Allergy (Severe, Verified 03/04/24 13:54) Anaphylaxis pineapple [PINEAPPLE] Allergy (Severe, Verified 03/04/24 13:54) Angioedema thimerosal [Thimerosal] Allergy (Severe, Verified 03/04/24 13:54) Angioedema Cephalosporins [CEPHALOSPORINS] Allergy (Intermediate, Verified 03/04/24 13:54) Rash fluoxetine [From PROZAC] Allergy (Intermediate, Verified 03/04/24 13:54) REQUIRED HOSPITALIZATION Penicillins Allergy (Intermediate, Verified 03/04/24 13:54) Rash tamsulosin Allergy (Mild, Verified 03/04/24 13:54) tacycardia aspartame [ASPARTAME] Allergy (Unknown, Verified 03/04/24 13:54) Unknown hexachlorophene [From PHISOHEX] Allergy (Unknown, Verified 03/04/24 13:54) Unknown melon Allergy (Unknown, Verified 03/04/24 13:54) Unknown perfume Allergy (Unknown, Verified 03/04/24 13:54) Unknown povidone-iodine [From BETADINE] Allergy (Unknown, Verified 03/04/24 13:54) Unknown soap [Betadine] Allergy (Unknown, Verified 03/04/24 13:54) Unknown codeine [Codeine] Adverse Reaction (Intermediate, Verified 03/04/24 13:54) wakes up combative meperidine [From Demerol] Adverse Reaction (Intermediate, Verified 03/04/24 13:54) Hallucinations monosodium glutamate Adverse Reaction (Intermediate, Verified 03/04/24 13:54) Headache morphine Adverse Reaction (Intermediate, Verified 03/04/24 13:54) wakes up combative dexon Allergy (Unknown, Uncoded 03/04/24 13:54) Unknown GLUE IN SHOES Allergy (Unknown, Uncoded 03/04/24 13:54) UNKNOWN PLASTIC TAPE Allergy (Unknown, Uncoded 03/04/24 13:54) skin problems POLYGLACTIC ACID(DEXON & VICRYL) Allergy (Unknown, Uncoded 03/04/24 13:54) UNKNOWN vicryl Allergy (Unknown, Uncoded 03/04/24 13:54) Unknown Medication List - Last Reconciled 04/08/24 by James Fernando MD apixaban (Eliquis) 5 mg PO BID atorvastatin 20 mg PO BEDTIME pvdxsnicls-qnlnqatkpswvw-zdcw 50-325-40 mg 1 tab PO DAILY PRN cholecalciferol (vitamin D3) 50 mcg PO DAILY clonazepam 0.5 mg PO DAILY PRN diltiazem HCl CD 120 mg PO DAILY epinephrine (EpiPen) 0.3 mg IM Q10M PRN finasteride 5 mg PO DAILY fluticasone propionate 50 mcg/actuation (Flonase Allergy Relief) 1 spray intranasal DAILY furosemide 40 mg See Protocol PO DAILY ipratropium-albuterol 20-100 mcg/actuation (Combivent Respimat) 1 puff inhalation Q4H PRN magnesium oxide 400 mg PO DAILY mecobalamin (vitamin B12) 1,000 mcg PO DAILY metformin ER 750 mg PO BID mometasone (Asmanex Twisthaler) 2 inhalations inhalation BID omeprazole 40 mg PO DAILY@0630 saw palmetto 320 mg PO DAILY semaglutide (weight loss) 1 mg subcut CHASE spironolactone 12.5 mg (1/2 x 25 mg) PO DAILY tadalafil (Cialis) 5 mg PO DAILY terazosin 10 mg PO DAILY HPI Comments Details: Jared comes for follow-up, accompanied by his . He underwent recent cardiac catheterization which showed and confirmed severe prosthetic mitral valve stenosis. He remains in atrial flutter. He remains quite symptomatic with exertional activity. Denies any orthopnea, PND, leg edema, abdominal distension. Overall heart failure syndrome seems to be in control. He denies any palpitations, lightheadedness, syncope. No exertional chest pain. There is no coronary artery disease noted. Patient has not seen Cardiothoracic surgery as yet. [facility] Medical History (Updated 04/10/24 @ 10:38 by James Fernando MD) Atrial flutter Elevated cholesterol History of GI diverticular bleed BPH (benign prostatic hyperplasia) History of blood transfusion GERD (gastroesophageal reflux disease) Type 2 diabetes mellitus Depression with anxiety PTSD (post-traumatic stress disorder) Migraine COPD, mild Asthma HTN (hypertension) Obstructive sleep apnea Enlarged RV (right ventricle) Mitral regurgitation Surgical History History of esophagogastroduodenoscopy (EGD) H/O colonoscopy History of excision of lesion (06/25/22) History of arthroscopy of right knee History of left inguinal hernia repair History of repair of right rotator cuff History of repair of left rotator cuff History of mitral valve replacement S/P MVR (mitral valve replacement) Hx of cardiac cath Family History Father Rheumatic fever Mother No problems noted. Sister Hx of aortic valve repair Brother Mitral valve replaced Social History Household Members: Family Housing: House Do you presently have visiting nurse or other home services: No Comment: pt refusing precautions steady on feet Patient Tobacco Use Status: Former Tobacco user Advance Directives Date on File: 10/29/21 service: Yes Current occupational status: retired Current occupation: ambidextrous, 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 Review of Systems Const All systems reviewed & are unremarkable except as noted in HPI and below ENT Reports dizziness Card Denies chest pain, Denies chest pain at rest, Denies chest pain with activity, Denies rapid heart rate, Denies pedal edema, Denies edema, Denies leg edema, Denies lightheadedness, Reports palpitations, Reports dyspnea, Reports dyspnea on exertion and Denies orthopnea Resp Denies cough, Reports dyspnea and Reports dyspnea on exertion GI Denies hematochezia and Denies change in stool character Musc Denies abnormal gait, Denies limited range of motion, Denies muscle cramps, Denies muscle weakness, Denies numbness, Denies radiating pain into limb, Denies stiffness and Denies tingling Neuro Denies abnormal gait, Reports dizziness, Denies numbness and Denies tingling Endo Reports palpitations Physical Exam Vital Signs: Last Vital Signs Pulse 63 04/08/24 15:28 BP 116/78 04/08/24 15:28 BMI result Body Mass Index 29.3 Const General: cooperative, healthy appearing, comfortable and no acute distress Orientation/consciousness: patient oriented x3 Neck Neck: Yes normal visual inspection Resp Effort & Inspection: normal respiratory effort Auscultation: clear to auscultation bilaterally, no rales, no rhonchi and no wheezes Cardio Jugular venous distension: no JVD Rate: regular rate Rhythm: abnormal rhythm Heart sounds: S1 normal heart sound present, S2 normal heart sound present, no murmurs and no rubs Neuro General: patient oriented x3 Extrem Other: sock marking present General: Yes normal to inspection Psych Appearance: grossly normal Mental Status: mental status grossly normal Speech and movement: Normal speech and movement present Office Procedures EKG Details: EKG shows atrial flutter with variable conduction with right bundle-branch block 93097-Auqearntzibftwute, Complete Assessment & Plan Assessment & Plan (1) Prosthetic mitral valve stenosis: Code(s): T82.857A - Stenosis of other cardiac prosthetic devices, implants and grafts, initial encounter Category: Medical Plan: Prosthetic valve stenosis with congestive heart failure syndrome with resistant atrial flutter which remains in atrial flutter. Clinically euvolemic and well compensated current diuretic dose. Discussed with him the need for mitral valve procedure and replacement. Higher risk of redo surgery was discussed with him. However I think that will be the best approach for him given that he does not have significant coronary disease. His comorbidities include advanced age, redo surgery, persistent atrial flutter, heart failure syndrome, COPD. However I think this will be the best approach for him. Discussed case with Dr. Guerrero will see him in the near future. He is agreeable and wants to pursue it. I do not think there is any role for transesophageal echocardiogram to further assess the mitral valve, confirmed by surgical team. SBE prophylaxis. (2) Atrial flutter: Code(s): I48.92 - Unspecified atrial flutter Category: Medical Qualifiers: Atrial flutter type: typical Qualified Code(s): I48.3 - Typical atrial flutter Plan: Persistent atrial flutter and has failed rhythm control approach despite amiodarone therapy and repeat cardioversion. I think at the time of redo surgery require Maze procedure to control his atrial arrhythmias and I think th ere will benefit overall long-term outcome and heart failure syndrome. This was discussed with him. For now continue oral anticoagulation therapy with Eliquis 5 mg b.i.d.. Continue current rate control with Cardizem therapy which has tolerated. (3) CHF (congestive heart failure): Code(s): I50.9 - Heart failure, unspecified Category: Medical Plan: Heart failure syndrome secondary to valvular disease and mitral stenosis. Clinically today appears to be euvolemic and well compensated. Does have NYHA class 2-3 symptoms related to mitral stenosis and atrial flutter. Will benefit from reintervention mitral valve is as atrial flutter. Currently continue current diuretic dose. Although there is no direct data for SGLT2 inhibitor therapy in patients with heart failure syndrome with valve disease, I would think clinically will help his heart failure syndrome. Will therefore start him on Jardiance 10 mg daily. Was discussed with him. Advised to reduce metformin dose. Advised to monitor sugars at home. Potential side effects to Jardiance therapy was discussed. Continue spironolactone therapy. Heart failure management discussed in details. Daily weight monitoring avoidance of salt loading was discussed. He understands this well. Will follow up in the clinic in 6 weeks time, sooner p.r.n.. Greater than 40 minutes was spent in managing his care. Medications: New empagliflozin (Jardiance) 10 mg PO DAILY 30 tabs 5RF Changed From metformin ER Hold for 3 days 750 mg PO BID To metformin ER Hold for 3 days 375 mg PO BID Coding Level of Care Code Est Pt Level 5 (42967) Complex EM visit Add On G2211 Diagnoses Prosthetic mitral valve stenosis T82.857A Typical atrial flutter I48.3 Atrial flutter type: typical CHF (congestive heart failure) I50.9 CPT Codes EKG - CPT: 17648-Rdqudfpjquehwkqye, Complete ([id number])
[2024-04-08 15:28] VITALS: BP 116/78; PULSE 63; BMI 29.3
== END 2024-04-08 16:09 | disposition home or self-care (01) ==
PROVIDERS: PCP Internal Medicine; Visit Provider Internal Medicine Cardiovascular Disease
DX: I48.3 Typical atrial flutter (principal); T82.857A Stenosis of other cardiac prosthetic devices, implants and grafts, initial encounter; I50.9 Heart failure, unspecified
CPT/HCPCS: 93010; 99215; G2211

== ENCOUNTER → 2024-04-08 15:12 | Outpatient (BNVA) | payer MEDICARE, OTHER, SELFPAY | PROVIDERS: PCP Internal Medicine; Visit Provider Internal Medicine Cardiovascular Disease | DX: T82.857D Stenosis of other cardiac prosthetic devices, implants and grafts, subsequent encounter (principal); I48.3 Typical atrial flutter; I50.9 Heart failure, unspecified | CPT/HCPCS: 93005; 99212 ==

== ENCOUNTER 2024-04-13 10:08 | Outpatient (AMB) | payer MEDICARE, OTHER, SELFPAY ==
--- NOTE | 2024-04-13 10:13 | A.OFFVIS_ITS ---
Intake Visit Reasons: 6M PVR/Med Review(Gemtesa) Intake Note: Patient is present for 6M PVR/MED REVIEW Urology Medication:TADALAFIL Antibiotic Allergy:PENICILLIN Blood Thinner:ELIQUIS TODAY'S PVR: 0ML'S Hot Stick Man Required: No Allergies DUSTIN Inhibitors [Dustin Inhibitors] Allergy (Severe, Verified 04/13/24 10:15) Anaphylaxis aspirin Allergy (Severe, Verified 04/13/24 10:15) Anaphylaxis NSAIDS (Non-Steroidal Anti-Inflamma [NSAIDS (NON-STEROIDAL ANTI-INFLAMMA] Allergy (Severe, Verified 04/13/24 10:15) Anaphylaxis pineapple [PINEAPPLE] Allergy (Severe, Verified 04/13/24 10:15) Angioedema thimerosal [Thimerosal] Allergy (Severe, Verified 04/13/24 10:15) Angioedema Cephalosporins [CEPHALOSPORINS] Allergy (Intermediate, Verified 04/13/24 10:15) Rash fluoxetine [From PROZAC] Allergy (Intermediate, Verified 04/13/24 10:15) REQUIRED HOSPITALIZATION Penicillins Allergy (Intermediate, Verified 04/13/24 10:15) Rash tamsulosin Allergy (Mild, Verified 04/13/24 10:15) tacycardia aspartame [ASPARTAME] Allergy (Unknown, Verified 04/13/24 10:15) Unknown hexachlorophene [From PHISOHEX] Allergy (Unknown, Verified 04/13/24 10:15) Unknown melon Allergy (Unknown, Verified 04/13/24 10:15) Unknown perfume Allergy (Unknown, Verified 04/13/24 10:15) Unknown povidone-iodine [From BETADINE] Allergy (Unknown, Verified 04/13/24 10:15) Unknown soap [Betadine] Allergy (Unknown, Verified 04/13/24 10:15) Unknown codeine [Codeine] Adverse Reaction (Intermediate, Verified 04/13/24 10:15) wakes up combative meperidine [From Demerol] Adverse Reaction (Intermediate, Verified 04/13/24 10:15) Hallucinations monosodium glutamate Adverse Reaction (Intermediate, Verified 04/13/24 10:15) Headache morphine Adverse Reaction (Intermediate, Verified 04/13/24 10:15) wakes up combative dexon Allergy (Unknown, Uncoded 04/13/24 10:15) Unknown GLUE IN SHOES Allergy (Unknown, Uncoded 04/13/24 10:15) UNKNOWN PLASTIC TAPE Allergy (Unknown, Uncoded 04/13/24 10:15) skin problems POLYGLACTIC ACID(DEXON & VICRYL) Allergy (Unknown, Uncoded 04/13/24 10:15) UNKNOWN vicryl Allergy (Unknown, Uncoded 04/13/24 10:15) Unknown HPI Comments Details: Jared is a pleasant male. He is a patient of Dr. Atkinson. 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 Trial Gemtessa - apparently covered Lower urinary tract symptoms Progressive weakness of stream, nocturia, incomplete bladder emptying Background diabetes for greater than 10 years Current therapy with finasteride and terazosin Prior therapy with alpha blockers - did not tolerate tamsulosin secondary to increased heart rate 11/08 Cystoscopy Bladder neck open Trabeculation grade 3 - small diverticulum PFSH Medical History (Updated 04/10/24 @ 10:38 by James Fernando MD) Atrial flutter Elevated cholesterol History of GI diverticular bleed BPH (benign prostatic hyperplasia) History of blood transfusion GERD (gastroesophageal reflux disease) Type 2 diabetes mellitus Depression with anxiety PTSD (post-traumatic stress disorder) Migraine COPD, mild Asthma HTN (hypertension) Obstructive sleep apnea Enlarged RV (right ventricle) Mitral regurgitation Surgical History History of esophagogastroduodenoscopy (EGD) H/O colonoscopy History of excision of lesion (06/25/22) History of arthroscopy of right knee History of left inguinal hernia repair History of repair of right rotator cuff History of repair of left rotator cuff History of mitral valve replacement S/P MVR (mitral valve replacement) Hx of cardiac cath Family History Father Rheumatic fever Mother No problems noted. Sister Hx of aortic valve repair Brother Mitral valve replaced Social History Household Members: Family Housing: House Do you presently have visiting nurse or other home services: No Comment: pt refusing precautions steady on feet Patient Tobacco Use Status: Former Tobacco user Advance Directives Date on File: 10/29/21 service: Yes Current occupational status: retired Current occupation: ambidextrous, 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 Office Procedures Post Void Residual Post Residual Void Post Void Residual (PVR): 0 [id number] Void Residual by ultrasound Results AMB Urinalysis, Automated UA Leukoctes 0 Brenna/uL Last Edit by IAIN Wilson on 04/13/24 10:30 UA Nitrite Negative Last Edit by IAIN Wilson on 04/13/24 10:30 UA Urobilinogen 0.2 mg/dL Last Edit by IAIN Wilson on 04/13/24 10:3 0 UA Protein 0 mg/dL Last Edit by IAIN Wilson on 04/13/24 10:30 UA pH 5.0 Last Edit by Jonathan Brooke CCM on 04/13/24 10:30 UA Blood 0 Kory/uL Last Edit by IAIN Wilson on 04/13/24 10:30 UA Specific [place] 1.025 Last Edit by Jonathna Brooke CCM on 04/13/24 10: 30 UA Ketone Negative Last Edit by IAIN Wilson on 04/13/24 10:30 UA Bilirubin 0 mg/dL Last Edit by IAIN Wilson on 04/13/24 10:30 UA Glucose 0 mg/dL Last Edit by IAIN Wilson on 04/13/24 10:30 Results Reviewed Results Reviewed: Laboratory Last Values Urine pH (Auto) 5.0 04/13/24 10:29 Specific [place] (Auto) 1.025 04/13/24 10:29 Urine Protein (Auto) 0 mg/dL 04/13/24 10:29 Glucose (UA)(Auto) 0 mg/dL 04/13/24 10:29 Urine Ketones (Auto) Negative 04/13/24 10:29 Urine Blood (Auto) 0 Kory/uL 04/13/24 10:29 Urine Nitrite (Auto) Negative 04/13/24 10:29 Urine Bilirubin (Auto) 0 mg/dL 04/13/24 10:29 Urine Urobilinogen (Auto) 0.2 mg/dL 04/13/24 10:29 Leukocyte Esterase (Auto) 0 Brenna/uL 04/13/24 10:29 Assessment & Plan Assessment & Plan Orders: Orders AMB Urinalysis Automated Today Z13.9 - Encounter for screening, unspecified Coding CPT Codes Post Residual Void - PVR CPT Code: 93076-Orpk Void Residual by ultrasound ([id number])
== END 2024-04-13 11:13 | disposition home or self-care (01) ==
PROVIDERS: PCP Internal Medicine; Visit Provider Urology
DX: Z13.9 Encounter for screening, unspecified (principal)

== ENCOUNTER → 2024-04-13 10:08 | Outpatient (BNVA) | payer MEDICARE, OTHER, SELFPAY | PROVIDERS: PCP Internal Medicine; Visit Provider Urology | DX: N40.0 Benign prostatic hyperplasia without lower urinary tract symptoms (principal); E11.69 Type 2 diabetes mellitus with other specified complication; N52.1 Erectile dysfunction due to diseases classified elsewhere; N32.81 Overactive bladder | CPT/HCPCS: 51798; 81003; 99212 ==

== ENCOUNTER 2024-05-10 07:20 | Inpatient (IN) | payer OTHER, SELFPAY ==
[2024-05-10] VITALS (10 sets, daily range): BP systolic 103–139; BP diastolic 59–83; PULSE 65–95; RESP 16–20; TEMP 36.1–37.1; O2SAT 92–96; BMI 28.6
--- NOTE | 2024-05-10 | ECG_ITS ---
Test Reason : SOB Blood Pressure : / mmHG Vent. Rate : 090 BPM Atrial Rate : 090 BPM P-R Int : 170 ms QRS Dur : 130 ms QT Int : 408 ms P-R-T Axes : -03 -18 021 degrees QTc Int : 499 ms Atrial flutter with variable block Right bundle branch block Abnormal ECG When compared with ECG of 04-FEB-2024 14:29, Atrial flutter present Referred By: Generic ED Physician Electronically Signed By:Chan Taylor
--- NOTE | ~2024-05-10 | XR_ITS ---
EXAMINATION: XR CHEST CLINICAL INFORMATION: dyspnea COMPARISON: X-ray dated February 01, 2024. TECHNIQUE: 2 views of the chest were obtained. FINDINGS: Indistinct margins in the perihilar regions with prominent interstitial markings. Opacity in the posterior costophrenic angles. Patchy opacity in the left upper hemithorax and to the medial right lower hemithorax. Status post sternotomy with the sternal wires and a heart valve prosthesis. Vascular clips in the mediastinum. Multilevel thoracic spondylosis. XR/XR chest 2V IMPRESSION: Pulmonary edema and bilateral pleural effusions, small to moderate volume. Underlying inflammatory versus infectious process should be considered in the correct clinical settings. Electronically signed by: Elio Rosa MD 05/10/2024 08:20 AM [facility]
--- NOTE | ~2024-05-10 | CT_ITS ---
EXAMINATION: CT ANGIOGRAM CHEST CLINICAL INFORMATION: Cough. Hemoptysis. COMPARISON: CT angiogram chest dated February 01, 2024. TECHNIQUE: Multiple axial images were obtained through the chest after the administration of 65 mL of Omnipaque 350 intravenous contrast. Extensive vascular post-processing including two-dimensional and three-dimensional reformatted images were created and reviewed on an independent workstation. SmartPrep technique. This CT examination was performed using dose optimization techniques as appropriate, variously including the following: *Automated exposure control *Adjustment of mA and/or kV according to patient size (this includes techniques or standardized protocols for targeted exams where dose is matched to indication/reason for exam; i.e. extremities or head) *Use of iterative reconstruction technique DLP: 350 mGy-cm FINDINGS: No intraluminal filling defects within the main pulmonary artery or its main branches. Mediastinum sternotomy and sternal wires. No aneurysm, thoracic aorta. Calcified plaques in the thoracic aorta and coronary arteries. There is mitral valve prosthesis. Bilateral pleural effusions, small to moderate volume. Bilateral multifocal patchy pulmonary groundglass extending from the perihilar region to the periphery of the lungs with a confluent pulmonary groundglass in the anterior segment left upper lobe. No pneumothorax. Respiratory airways patent. No gross pericardial effusion. Calcified plaques in the abdominal aorta and mesenteric arteries and splenic artery. Numerous diverticula in the large intestine. Multilevel spondylosis Skeleton without acute fracture or trauma-related listhesis. CT/CT angio chest PE protocol IMPRESSION: No acute pulmonary artery emboli. No thoracic aortic aneurysm. Concerning pulmonary edema and bilateral pleural effusions, small to moderate volume likely cardiogenic. Superimposed inflammatory infectious process in the left upper lung lobe cannot be excluded. Follow-up until resolution. Diverticular disease. Fleischner guidelines were followed. Electronically signed by: Elio Rosa MD 05/10/2024 01:24 PM EST
--- OUTSIDE RECORDS SUMMARY | 2024-05-10 07:22 | XMS_ITS | Continuity of Care Document ---
Author Organization [facility] Brittney ana Address [address] [place] [id number] Care Team Providers Care Uc Architect Name Role Phone Omer Nath Primary Care Physician Encounter [facility] Date(s): 04/30/24 - 05/07/24 [facility] [address] [place] [address] Drive [address] [place] [address]- Attending Physician: Isaiah Guerrero MD Referring Physician: James Fernando MD Encounter Type: Office Visit Allergies, Adverse Reactions, Alerts Substance Criticality Severity Reaction Reaction Severity Status morphine Penicillin V potassium Active lisinopril Active Demerol HCl Active Bee Stings Active JARROD inhibitors Activ e thimerosal topical A ctive Other Food Allergy 1 Active Betadine Active Dexone Active penicillin V potassium NSAID Active Other Environmental Allergy 2 Active NSAIDs Thimerosal Active 1MSG, aspartane, pineapple, melons 2VICRYL SUTURES Immunizations Given and Recorded Vaccine Date Status Refusal Reason pneumococcal 23-valent vaccine 05/02/17 Given Medications Asmanex 220 mcg Inhaler Inhalation, Refills 0, Maintenance, 08/11/18 9:34:26 AM EDT Start Date: 08/11/18 Status: Ordered Repeat number: 1 atorvastatin 20 mg oral tablet 1 tablet = 20 mg, By Mouth, Daily, # 30 tablet, 0 Refills, Maintenance, 03/23/24 10:04:00 AM EST, Tablet, Partial fill upon patient request if the prescription is for a schedule II opioid drug. Start Date: 03/23/24 Status: Ordered Quantity: 30.0 Unit: tablet Repeat number: 1 clonazePAM 0.5 mg oral tablet 1 tablet = 0.5 mg, By Mouth, 0 Refills, Maintenance, 08/11/18 9:34:52 AM EDT Start Date: 08/11/18 Status: Ordered Repeat number: 1 Combivent Respimat 20 mcg-100 mcg/inh inhalation aerosol 1 puffs, Inhalation, 4 times a day, 0 Refills, Maintenance, 08/11/18 9:34:11 AM EDT Start Date: 08/11/18 Status: Ordered Repeat number: 1 Diltiazem = 120 mg, Daily, 0 Refills, Maintenance, 03/23/24 10:06:00 AM EST, Partial fill upon patient requestif the prescription is for a schedule II opioid drug. Start Date: 03/23/24 Status: Ordered Repeat number: 1 Eliquis 5 mg oral tablet 1 tablet = 5 mg, By Mouth, 2 times a day, # 60 tablet, 5 Refills, Maintenance, 03/23/24 10:00:00 AM EST, Tablet, Partial fill upon patient request if the prescription is for a schedule II opioid drug. Start Date: 03/23/24 Status: Ordered Quantity: 60.0 Unit: tablet Repeat number: 1 finasteride 5 mg oral tablet 1 tablet = 5 mg, By Mouth, Daily, # 30 tablet, 0 Refills, Maintenance, 03/04/17 4:16:33 PM EDT, Tablet Start Date: 03/04/17 Status: Ordered Quantity: 30.0 Unit: tablet Repeat number: 1 fluticasone 50 mcg/inh nasal spray Daily, 0 Refills, Maintenance, 08/11/18 9:33:51 AM EDT Start Date: 08/11/18 Status: Ordered Repeat number: 1 Jardiance 10 mg oral tablet 1 tablet = 10 mg, By Mouth, Daily in AM, # 30 tablet, 0 Refills, Maintenance, 04/30/24 8:51:00 AM EST, Tablet, Partial fill upon patient request if the prescription is for a schedule II opioid drug. Start Date: 04/30/24 Status: Ordered Quantity: 30.0 Unit: tablet Repeat number: 1 Lasix 40 mg oral tablet 40 mg, 1, tablet, By Mouth, Daily, # 30 tablet, Refills 0, Maintenance, 03/23/24 10:06:00 AM EST, Partial fill upon patient request if the prescription is for a schedule II opioid drug. Start Date: 03/23/24 Status: Ordered Quantity: 30.0 Unit: tablet Repeat number: 1 magnesium oxide 400 mg oral capsule 1 capsule = 400 mg, By Mouth, Daily, # 75 capsule, 0 Refills, Maintenance, 03/23/24 10:07:00 AM EST,Capsule, Partial fill upon patient request if the prescription is for a schedule II opioid drug. Start Date: 03/23/24 Status: Ordered Quantity: 75.0 Unit: capsule Repeat number: 1 Metformin = 750 mg, By Mouth, 2 times a day, 0 Refills, Maintenance, 03/23/24 10:04:00 AM EST, Partial fill upon patient request if the prescription is for a schedule II opioid drug. Start Date: 03/23/24 Status: Ordered Repeat number: 1 Omeprazole = 20 mg, By Mouth, Daily, 0 Refills, Maintenance, 03/04/17 4:18:09 PM EDT Start Date: 03/04/17 Status: Ordered Repeat number: 1 Ozempic (1 mg dose) 0 Refills, Maintenance, 03/23/24 10:07:00 AM EST, Partial fill upon patient request if the prescription is for a schedule II opioid drug. Start Date: 03/23/24 Status: Ordered Repeat number: 1 Saw Washburn = 320 mg, By Mouth, Daily, 0 Refills, Maintenance, 08/11/18 9:36:05 AM EDT Start Date: 08/11/18 Status: Ordered Repeat number: 1 Singulair 10 mg oral tablet 10 mg, 1, tablet, By Mouth, Daily, in the evening, Refills 0, Maintenance, 03/04/17 4:18:45 PM EDT Start Date: 03/04/17 Status: Ordered Repeat number: 1 spironolactone 25 mg oral tablet 12.5 mg, 0.5, tablet, By Mouth, Daily, # 15 tablet, Refills 0, Maintenance, 03/23/24 10:06:00 AM EST, Partial fill upon patient request if the prescription is for a schedule II opioid drug. Start Date: 03/23/24 Status: Ordered Quantity: 15.0 Unit: tablet Repeat number: 1 tadalafil By Mouth, Daily, 0 Refills, Maintenance, 03/23/24 10:01:00 AM EST, Partial fill upon patient requestif the prescription is for a schedule II opioid drug. Start Date: 03/23/24 Status: Ordered Repeat number: 1 terazosin 10 mg oral capsule 10 mg, 1, capsule, By Mouth, Daily at bedtime, Refills 0, Maintenance, 08/11/18 9:33:09 AM EDT Start Date: 08/11/18 Status: Ordered Repeat number: 1 Vitamin B12 1000 mcg oral tablet 1 tablet = 1,000 mcg, By Mouth, Daily, # 30 tablet, 0 Refills, Maintenance, 03/23/24 10:01:00 AM EST, Tablet, Partial fill upon patient request if the prescription is for a schedule II opioid drug. Start Date: 03/23/24 Status: Ordered Quantity: 30.0 Unit: tablet Repeat number: 1 Vitamin D3 = 1,000 International_Units, By Mouth, Daily, 0 Refills, Maintenance, 03/04/17 4:15:23 PM EDT Start Date: 03/04/17 Status: Ordered Repeat number: 1 Problem List Condition Confirmation Course Effective Dates Status Health Status Informant Anemia Confirmed Active BPH (benign prostatic hypertrophy) Confirmed Active Decreased hearing of right ear Confirmed Active Diabetes mellitus Confirmed Active Dyslipidemia Confirmed Active Ex-smoker, 1 ppd X10 years, quit 1996 Confirmed Active Exposure to lionel gas Confirmed 1990 Active GERD (gastroesophageal reflux disease) Confirmed Active Heart murmur Confirmed Active HTN (hypertension) Confirmed Active Mitral regurgitation Confirmed Active Obesity (BMI 37.5 as of 04/21/2017) Confirmed Active ANJELICA on CPAP Confirmed Active OA (osteoarthritis), s/p right knee Confirmed Active S/P multiple left inguinal hernia repairs Confirmed Active PTSD (post-traumatic stress disorder) Confirmed Active Emphysema/COPD Confirmed Active Right bundle branch block (RBBB) Confirmed Active Spondylolisthesis Confirmed Active Vital Signs Most recent to oldest [Reference Range]: 1 2 Height 177.8 cm (04/30/24 8:51 AM) 177.8 cm (04/30/24 8:50 AM) Weight 87.2 kg (04/30/24 8:50 AM) Oxygen Saturation [94-100 %] 98 % (04/30/24 8:50 AM) Pulse Rate [55-90 bpm] 70 bpm (04/30/24 8:50 AM) Body Mass Index [18.5-24.99 kg/m2] 27.58 kg/m2 *H* (04/30/24 8:50 AM) Blood Pressure [90-138/55-84 mm Hg] 130/ 72mm Hg (04/30/24 8:51 AM) 128/70mm Hg (04/30/24 8:50 AM) Respiratory Rate [16-30 br/min] 14 br/mi n *L* (04/30/24 8:50 AM) Temperature [96.8-100.4 DegF] 97 DegF (04/30/24 8:50 AM) Mode of Delivery (Oxygen) Room air (04/30/24 8:50 AM) Blood pressure sites Arm, right (04/30/24 8:51 AM) Arm, left (04/30/24 8:50 AM) Temperature Route Oral (04/30/24 8:50 AM) Weight Obtained Via Standing scale (04/30/24 8:50 AM) Social History Social History Type Response Smoking Status Former smoker; Tobac co use times per day: 1 ppd, quit 1996; Number of years: 10; Total pack years: 10; entered on: 04/21/17 Sex Sex Representation Male (finding) Patient Care team information Care Team Personnel Name: Vinny NUNES, Valeria Ribeiro Position: [facility] SN RN Member Role: Primary Care Nurse Name: Beverly Ge RN Position: [facility] Hospital Stevedoring Superintendent Member Role: Primary Care Nurse Name: Belem Corrigan RN Position: [facility] RN Supv Member Role: Primary Care Nurse Name: Omer Nath Position: Reference Physician Member Role: PCP Address: [address] [place] [address] Telecom: Care Team Related Persons Name: NIR OVIEDO Insurance Providers Guarantor name: [employer] Health Plan Information #: 1 Payer: MEDICARE PART B OUTPT Member Number: [id number] Policy Number: SUNNY Group Number: [employer] Health Plan Information #: 2 Payer: FOR LIFE MCR A ONLY Member Number: [id number] Policy Number: SUNNY Group Number: [id number]
--- OUTSIDE RECORDS SUMMARY | 2024-05-10 07:23 | XMS_ITS | Encounter Summary ---
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 Organization [facility] Address [address] [place] [address] Care Team Providers Care Animal Nutritionist Name Role Phone CHITO SEGURA Primary Care Provider Unavail able Insurance Providers: All historical and current Section Date Range: From patient's date of to the date document was created. This section includes the names of all active insurance providers for the patient. Insurance Provider Type of Coverage Plan Name Start of Policy Coverage End of Policy Coverage Group Number Member ID Insurance Provider's Telephone Number Policy Santacruz's Name Patient's Relationship to Policy Santacruz MEDICARE (WNR) MEDICARE (M) PART A Feb 16, 2018 PART A [id number] [phone] [id number] YENNY OVIEDO PATIENT MEDICARE (WNR) MEDICARE (M) PART B Feb 16, 2018 PART B [id number] YENNY OVIEDO PATIENT MEDICARE (WNR) MEDICARE (M) PART A Oct 17, 2006 PART A [id number] YENNY OVIEDO PATIENT FOR LIFE TFL* Apr 06, 2018 [id number] YENNY OVIEDO PATIENT Selected Encounter This section includes the information on record at MD for the Encounter. Date/Time Encounter Type Encounter Description Reason Pro vider Source Jan 05, 2024 12:00 AM Outpatient Encounter EVENT (HISTORICAL) IHE Encounter Template Text not used by [facility] Plan of Treatment: Future Appointments (+ 6 months) and Future Tests (+/- 45 days) The Plan of Treatment section includes future care activities for the patient from all [facility] This section includes future appointments and future orders which are active, pending or scheduled. Future Appointments This section includes appointments that were scheduled to occur 6 months from the date of the Encounter, up to a maximum of 20 appointments. The data comes from all MD treatment facilities. Appointment Date/Time Appointment Type Appointme nt Facility Name Jan 12, 2024 11:25 AM [facility] [place] [facility] Jan 12, 2024 11:40 AM [facility] [place] [facility] Jan 22, 2024 01:00 PM [facility] [place] [facility] Jan 29, 2024 08:45 AM [facility] [place] [facility] Feb 16, 2024 08:00 AM [facility] [place] [facility] [place] Feb 17, 2024 07:30 AM AMBULATORY - NONE [facility] [place] [facility] Mar 16, 2024 09:30 AM AMBULATORY - NONE [facility] [place] [facility] Mar 30, 2024 07:30 AM [facility] [place] [facility] Apr 06, 2024 09:00 [facility] 12[facility]24 08:00 [facility] Apr 12, 2024 11:00 AM [facility] [place] [facility] Apr 12, 2024 01:30 PM [facility] [place] [facility] Apr 30, 2024 01:40 PM AMBULATORY - NONE [facility] [place] [facility] May 28, 2024 08:30 AM [facility] [place] [facility] May 31, 2024 11:00 AM [facility] [place] [facility] Jun 01, 2024 07:30 AM AMBULATORY - NONE [facility] [place] [facility] Jun 28, 2024 08:00 AM [facility] Lab Results: +/- 30 days of the encounter This section includes the Chemistry and Hematology Lab Results on record with MD for the patient. Radiology Reports and Pathology Reports are provided separately, in subsequent sections. Lab Results This section contains the Chemistry/Hematology Results that were resulted 30 days before or 30 daysafter the date of the Encounter. Date/Time Source Result Type Result - Unit Interpretation Reference Range Comment Jan 05, 2024 07:32 AM [facility] LIVER FUNCTION Specimen Type: SERUM No comment entered. Ordering Provider: AYUSH SEGURA F Report Released Date/Time: Jul 21, 2023 02:25 PM Reporting Lab: [address] [address] Performing Lab: [address] [address] PROTEIN,TOTAL 6.3 g/dL 6.0-8.3 ALBUMIN 3.6 g/dL 3.5-5.0 ALKALINE PHOSPHATASE 39 U/L L 40-150 AST 13 U/L 5-34 ALT 15 U/L BILIRUBIN, TOTAL 1.0 mg/dL 0.2-1.2 Jan 05, 2024 07:32 AM [facility] BASIC METABOLIC PANEL (fasting) Specimen Type: SERUM No comment entered. Ordering Provider: AYUSH SEGURA F Report Released Date/Time: Jul 21, 2023 02:25 PM Reporting Lab: [address] [address] Performing Lab: [address] [address] UREA NITROGEN 21 mg/dL 7-25 GLUCOSE 126 mg/dL H 65-100 SODIUM 139 mmol/L 135-145 POTASSIUM 3.9 mmol/L 3.5-5.0 CHLORIDE 107 mmol/L 100-110 CO2 22 meq/L 20-30 CREATININE, Serum 0.68 mg/dL 0.50-1.40 eGFR(CKD-EPI 2020) >90 mL/min >60 Jan 05, 2024 07:32 AM [facility] LIPID PANEL FASTING Specimen Type: SERUM No comment entered. Ordering Provider: AYUSH SEGURA F Report Released Date/Time: Jul 21, 2023 02:25 PM Reporting Lab: [facility] [address] [facility] [phone] Performing Lab: [facility] [address] [facility] [address] CHOLESTEROL 116 mg/dL TRIGLYCERIDE 73 mg/dL 0-150 LDL calculated 62 mg/dL 0-129 CHOL/HDL 3.0 HDL CHOLESTEROL 39 mg/dL L 40-60 Jan 05, 2024 07:32 AM [facility] MICROALBUMIN CREATININE RATIO PANEL Specimen Type: URINE No comment entered. Ordering Provider: AYUSH SEGURA F Report Released Date/Time: Jul 21, 2023 02:25 PM Reporting Lab: [facility] [address] [facility] [address] Performing Lab: [address] [address] MICROALBUMIN/C REATININE RATIO 45.9 mg/g H 0-29.9 MICROALBUMIN,Q UANTITATIVE 5.0 mg/dL RR UNAVAIL CREATININE URINE 108.91 mg/dL Jan 05, 2024 07:32 AM [facility] PSA Specimen Type: SERUM No comment entered. Ordering Provider: AYUSH SEGURA F Report Released Date/Time: Jul 21, 2023 02:25 PM Reporting Lab: [facility] [address] [facility] [address] Performing Lab: [address] [address] PSA < 0.10 ng/mL 0.00-4.00 Jan 05, 2024 07:32 AM [facility] HEMOGLOBIN A1C PANEL Specimen Type: BLOOD Comment: Values obtained from A1C measurements can vary. For atypical A1C assays, a reported value of 7.0 could actually be between 6.72 and 7.28 if measured by a reference method. A reported value of 9.0 could actually be between 8.73 and 9.27. Ref: http://www.ngs p.org/CAPdata. asp Ordering Provider: AYUSH SEGURA F Report Released Date/Time: Jul 21, 2023 02:25 PM Reporting Lab: [address] [address] Performing Lab: [address] [address] HEMOGLOBIN A1C 6.1 H 4.0-5.6 Jan 05, 2024 07:32 AM [facility] URINALYSIS Specimen Type: URINE Comment: If Glucose = >500 and Ketones are positive, please alert the Physician. Ordering Provider: AYUSH SEGURA F Report Released Date/Time: Jul 21, 2023 02:25 PM Reporting Lab: [address] [address] Performing Lab: [address] [address] UA COLOR Yellow Yellow UA APPEARANCE Clear Clear UA GLUCOSE Normal mg/dL Negative UA KETONES NEGATIVE mg/dL Negative UA BLOOD NEGATIVE mg/dL Negative UA PROTEIN 10 mg/dL Negative UA NITRITE NEGATIVE mg/dL Negative UA BILIRUBIN NEGATIVE mg/dL Negative UA SPECIFIC GRAVITY 1.027 H 1.016-1.02 2 UA pH 5.5 5.0-9.0 UA UROBILINOGEN Normal mg/dL <2.0 UA LEUKOCYTE NEGATIVE Negative Social History: Smoking Status (Most current) and Tobacco Use (All prior to encounter date) This section includes the most current, and the historical, smoking and tobacco- related health factors from the MD facility where the Encounter took place. Current Smoking Status This section includes the most current smoking, or tobacco-related health factor, from the MD facility where the Encounter took place. Date/Time Current Smoking Status Comment Facil ity Jul 21, 2023 01:30 PM VA-TOBACCO FORMER USER [facility] Tobacco Use History This section includes a history of the smoking, or tobacco-related health factors, that were collected on or before the date of the Encounter. The data comes from the MD facility where the Encounter took place. Date/Time Smoking Status/Tobacco Use Comment F acility Jul 21, 2023 01:30 PM VA-TOBACCO QUIT 15 YRS OR MORE [facility] [place] [facility] Mar 28, 2021 03:28 PM VA-TOBACCO FORMER USER [facility] [place] [facility] Mar 28, 2021 03:28 PM VA-TOBACCO QUIT 15 YRS OR MORE [facility] [place] [facility] Dec 02, 2019 09:36 AM [facility] Apr 23, 2005 10:19 AM QUIT [facility]BACCO [facility] Advance Directives: All historical and current Section Date Range: From patient's date of to the date document was created. This section includes ALL of a patient's completed or amended MD Advance and Rescinded Directives. The entries below indicate that a directive exists for the patient, but an actual copy is not included with this document. The data comes from all MD facilities. Date Advance Directives Provider Source Dec 16, 2011 ADVANCE DIRECTIVE DISCUSSION MARGARITA TERRAZASFIELD Encounter Notes: All associated encounter notes This section contains the clinical notes associated to the Encounter. Date/Time Encounter Note(s) Provider Source Jan 05, 2024 12:00 AM NONVA CONSULT: LOCAL TITLE: COMMUNITY CARE-CONSULT RESULT NOTE STANDARD TITLE: NONVA CONSULT DATE OF NOTE: JAN 05, 2024 ENTRY DATE: FEB 12, 2024@11:34:23 AUTHOR: DAVE CAMPOS EXP COSIGNER: URGENCY: STATUS: COMPLETED VistA Imaging - Scanned Document SCANNED DOCUMENT SIGNATURE NOT REQUIRED Electronically Filed: 02/12/2024 by: DAVE AVINA [facility] Jan 05, 2024 12:00 AM NONVA CONSULT: LOCAL TITLE: COMMUNITY CARE-CONSULT RESULT NOTE STANDARD TITLE: NONVA CONSULT DATE OF NOTE: JAN 05, 2024 ENTRY DATE: FEB 12, 2024@12:24:51 AUTHOR: MAGO WAN EXP COSIGNER: URGENCY: STATUS: COMPLETED VistA Imaging - Scanned Document SCANNED DOCUMENT SIGNATURE NOT REQUIRED Electronically Filed: 02/12/2024 by: MAGO WAN FURNITURE MAKER MAGO WAN [facility]
--- OUTSIDE RECORDS SUMMARY | 2024-05-10 07:23 | XMS_ITS | Encounter Summary ---
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 Address [address] [place] [address] Care Team Providers Care Implementation Project Manager Name Role Phone OMER MEDRANO Primary Care Provider Unavail able Insurance Providers: [...] PART A Feb 16, 2018 PART A [id number] YENNY OVIEDO PATIENT MEDICARE (WNR) MEDICARE (M) PART B Feb 16, 2018 PART B [id number] YENNY OVIEDO ES PATIENT MEDICARE (WNR) MEDICARE (M) PART A Oct 17, 2006 PART A [id number] [facility] [phone] YENNY OVIEDO PATIENT FOR LIFE TFL* Apr 06, 2018 [id number] YENNY OVIEDO PATIENT Selected Encounter This section includes the information on record at [place] for the Encounter. Date/Time Encounter Type Encounter Description Reason Provider Source Feb 11, 2024 10:27 AM Outpatient Encounter PRIMARY CARE/MEDICINE AISHA SANDERS [facility] Encounter Template Text not used by [place] Plan of Treatment: Future Appointments (+ 6 months) and Future Tests (+/- 45 days) The Plan of Treatment section includes future care activities for the [facility] [place] [facility] This section includes future appointments and future orders which are active, pending or scheduled. Future Appointments This section includes appointments that were scheduled to occur 6 months from the date of the Encounter, up to a maximum of 20 appointments. The data comes from all [place] treatment facilities. Appointment Date/Time Appointment Type Appointme nt Facility Name Feb 16, 2024 08:00 AM [facility] Feb 17, 2024 07:30 AM AM[facility]ULATORY [facility] NONE [facility] [place] [facility] Mar 16, 2024 09:30 AM AMBULATORY - NONE [facility] [place] [facility] Mar 30, 2024 07:30 AM AMBULATORY - MEDICINE [place] [facility] [place] [facility] Apr 06, 2024 09:00 AM [facility] Apr 12, 2024 08:00 AM [facility] Apr 12, 2024 11:00 AM AMBULATORY - [place]ICINE [place] [facility] [facility] Apr 12, 2024 01:30 PM AMBULATORY - MEDICINE [place] [facility] [place] [facility] Apr 30, 2024 01:40 PM AMBULATORY - NONE [facility] [place] [facility] May 28, 2024 08:30 AM AMBULATORY - MEDICINE [place] [facility] [facility] May 31, 2024 11:00 AM AMBULATORY - MEDICINE [place] [facility] [place] [facility] Jun 01, 2024 07:30 AM AMBULATORY - NONE [facility] [place] [facility] Jun 28, 2024 08:00 AM AMBULATORY - MEDICINE [facility] Lab Results: +/- 30 days of the encounter This section includes the Chemistry and Hematology Lab Results on record with [place] for the patient. Radiology Reports and Pathology Reports are provided separately, in subsequent sections. Lab Results This section contains the Chemistry/Hematology Results that were resulted 30 days before or 30 daysafter the date of the Encounter. Date/Time Source Result Type Result - Unit Interpretation Reference Range Comment Feb 27, 2024 07:43 AM [facility] CREATININE (eGFR 2020) Specimen Type: SERUM No comment entered. Ordering Provider: ELIEL MEDRANO Report Released Date/Time: Feb 23, 2024 02:44 PM Reporting Lab: [facility] [address] [address] Performing Lab: [address] [address] CREATININE, Serum 0.84 mg/dL 0.50-1.40 eGFR(CKD-EPI 2020) >90 mL/min >60 Feb 27, 2024 07:43 AM [facility] LIVER FUNCTION Specimen Type: SERUM No comment entered. Ordering Provider: ELIEL MEDRANO Report Released Date/Time: Feb 23, 2024 02:44 PM Reporting Lab: [address] [address] Performing Lab: [address] [address] PROTEIN,TOTAL 6.3 g/dL 6.0-8.3 ALBUMIN 3.5 g/dL 3.5-5.0 ALKALINE PHOSPHATASE 45 U/L 40-150 AST 19 U/L 5-34 ALT 23 U/L BILIRUBIN, TOTAL 0.6 mg/dL 0.2-1.2 Feb 27, 2024 07:43 AM [facility] PT & INR (COUMADIN) Specimen Type: PLASMA No comment entered. Ordering Provider: ELIEL MEDRANO Report Released Date/Time: Feb 23, 2024 02:44 PM Reporting Lab: [address] [address] Performing Lab: [address] [address] INR 1.4 PROTIME 15.4 s H 10.0-13.1 Feb 27, 2024 07:43 AM [facility] CBC Specimen Type: BLOOD No comment entered. Ordering Provider: ELIEL MEDRANO Report Released Date/Time: Feb 23, 2024 02:44 PM Reporting Lab: [facility] [address] [address] Performing Lab: [place] [facility] [address] [address] WBC 6.44 10*3/uL 4.50-11.00 RBC 4.42 10*6/uL 4.23-5.66 HGB 13.1 g/dL 12.8-17 HCT 38.8 L 39.2-50.4 MCV 87.8 fL 82-99 MCHC 33.8 g/dL 30.8-35.1 PLT 116 10*3/uL L 140-360 RDW-CV 14.6 12.0-16.0 MCH 29.6 pg 26.2-32.6 Social History: Smoking Status (Most current) and Tobacco Use (All prior to encounter date) This section includes the most current, and the historical, smoking and tobacco- related health factors from the [place] facility where the Encounter took place. Current Smoking Status This section includes the most current smoking, or tobacco-related health factor, from the [place] facility where the Encounter took place. Date/Time Current Smoking Status Comment Facil ity Jul 21, 2023 01:30 PM [facility] Tobacco Use History This section includes a history of the smoking, or tobacco-related health factors, that were collected on or before the date of the Encounter. The data comes from the [place] facility where the Encounter took place. Date/Time Smoking Status/Tobacco Use Comment F acility Jul 21, 2023 01:30 PM VA-TOBACCO QUIT 15 YRS OR MORE [place] [facility] [place] [facility] Mar 28, 2021 03:28 PM VA-TOBACCO FORMER USER [place] [facility] [place] [facility] Mar 28, 2021 03:28 PM VA-TOBACCO QUIT 15 YRS OR MORE [place] [facility] [place] [facility] Dec 02, 2019 09:36 AM VA-TOBACCO NEVER USED [place] [facility] [place] [facility] Apr 23, 2005 10:19 AM QUIT [facility]BAC[facility] Advance Directives: All historical and current Section Date Range: From patient's date of to the date document was created. This section includes ALL of a patient's completed or amended [place] Advance and Rescinded Directives. The entries below indicate that a directive exists for the patient, but an actual copy is not included with this document. The data comes from all [place] facilities. Date Advance Directives Provider Source Dec 16, 2011 ADVANCE DIRECTIVE DISCUSSION MARGARITA TERRAZAS [place] Encounter Notes: All associated encounter notes This section contains the clinical notes associated to the Encounter. Date/Time Encounter Note(s) Provider Source Feb 11, 2024 10:27 AM PRIMARY CARE Yaphie MESSAGING: LOCAL TITLE: PRIMARY CARE SECURE MESSAGING STANDARD TITLE: PRIMARY CARE SECURE MESSAGING DATE OF NOTE: FEB 11, 2024@10:27 ENTRY DATE: FEB 11, 2024@10:27:32 AUTHOR: AISHA SANDERS EXP COSIGNER: URGENCY: STATUS: COMPLETED ------Original Message ------- Sent: 02/10/2024 05:51 AM ET From: ANDREEA OVIEDO To: Sebas MEDRANO_PRIMARY CARE_[facility] Subject: Medication:renewals please I am recently discharged from the hospital for CHF, A-Flutter and Pneumonia. I am now using Combivent regularly and require a renewal for the prescription, as well as one for Tadalafil which has . Thank You, Andreea Oviedo ------Original Message ------- Sent: 02/10/2024 08:57 AM ET From: AISHA SANDERS To: ANDREEA OVIEDO Subject: Medication:renewals please Good Morning, It looks like your PCP has ordered you MOMETASONE inhaler which has not be refilled in one year. Are you using both inhalers or just the Combivent now? We have not received the records from your visit at [facility] and will have to request these notes. Thank you for your service, MANJU Ware - PACT Contract Driver ------Original Message ------- Sent: 02/10/2024 05:05 PM ET From: ANDREEA OVIEDO To: Sebas MEDRANO_PRIMARY CARE_[facility] Subject: Medication:renewals please Aisha, I am currently using Combivent and Mometasone. Thank you, Andreea Oviedo ------Original Message ------- Sent: 02/10/2024 05:28 PM ET From: ANDREEA OVIEDO To: COLTONSebas_[facility]IMARY [facility] Subject: Medication:renewals please I guess I'm a little confused, I have an active PRN script for Combivent from the [place] longstanding, which I am now using regularly. I have an Asthamex HFA prescription from the [place] that I have been using and refilling over a long period of time BID. [facility] Mometasone twisthaler to the HFA a while ago, that may be why it appears it is inactive. If there is something I need do to facilitate you receiving records from my marketing automation manager Dr. Fernando, [facility] or Dr. Tu Atkinson my PCP (outside the [place]) please let me know. I have an appointment tomorrow with Dr. Atkinson whose office is across the street from [facility] (Dr. Fernando). Whatever you want is fine, just let me know what to do to help or expedite. Thanks ------Original Message ------- Sent: 02/11/2024 10:27 AM ET From: AISHA SANDERS To: ANDREEA OVIEDO Subject: Medication:renewals please Good Morning, Yes we do want notes from the prescriber at [facility] to review. Our fax number is . Please have their office send us the office visit notes and any prescriptions from your marketing automation manager can be sent to the [place] pharmacy directly to be filled . In the meantime I will forward this message thread to Mr. Medrano so we can look into the manner. Thank you for your service, MANJU Ware - PACT Contract Driver /es/ AISHA SANDERS RN REGISTERED NURSE Signed: 02/11/2024 10:27 Receipt Acknowledged By: 02/11/2024 12:55 /lisa/ Omer Medrano PA-C STAFF PHYSICIAN YIELD CLERK AISHA SANDERS [facility]
--- OUTSIDE RECORDS SUMMARY | 2024-05-10 07:23 | XMS_ITS ---
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 [place] Organization [place] Address [address] [place] [address] Care Team Providers Care Roll Panner Name Role Phone CHITO SEGURA Primary Care [...] PART A Feb 16, 2018 PART A [id number] YENNY OVIEDO PATIENT MEDICARE (WNR) MEDICARE (M) PART B Feb 16, 2018 PART B [id number] YENNY OVIEDO ES PATIENT MEDICARE (WNR) MEDICARE (M) PART A Oct 17, 2006 PART A [id number] [facility] YENNY OVIEDO PATIENT FOR LIFE TFL* Apr 06, 2018 [id number] [phone] YENNY OVIEDO PATIENT Selected Encounter This section includes the information on record at [place] for the Encounter. Date/Time Encounter Type Encounter Description Reason Provider Source Feb 12, 2024 10:52 AM Outpatient Encounter PRIMARY CARE/MEDICINE AISHA SANDERS [facility] Encounter Template Text not used by [place] Plan of Treatment: Future Appointments (+ 6 months) and Future Tests (+/- 45 days) The Plan of Treatment section includes future care activities for the patient [facility] [place] [facility]. This section includes future appointments and future orders which are active, pending or scheduled. Future Appointments This section includes appointments that were scheduled to occur 6 months from the date of the Encounter, up to a maximum of 20 appointments. The data comes from all [place] treatment facilities. Appointment Date/Time Appointment Type Appointme nt Facility Name Feb 16, 2024 08:00 AM [facility]ULATORY [facility] Feb 17, 2024 07:30 AM AMBULATORY - NONE [facility] [place] [facility] Mar 16, 2024 09:30 AM AMBULATORY - NONE [facility] [place] [facility] Mar 30, 2024 07:30 AM AMBULATORY - MEDICINE [place] [facility] [place] [facility] Apr 06, 2024 09:00 AM AM[facility]ULATORY [facility] Apr 12, 2024 08:00 AM AM[facility]ULATORY [facility] MED[facility] Apr 12, 2024 11:00 AM AMBULATORY - MEDICINE [place] [facility] [place] [facility] Apr 12, 2024 01:30 PM AMBULATORY - MEDICINE [place] [facility] [place] [facility] Apr 30, 2024 01:40 PM AMBULATORY - NONE [facility] [place] [facility] May 28, 2024 08:30 AM AMBULATORY - MEDICINE [place] [facility] [place] [facility] May 31, 2024 11:00 AM AMBULATORY - MEDICINE [place] [facility] [place] [facility] Jun 01, 2024 07:30 AM AMBULATORY - NONE [facility] [place] [facility] Jun 28, 2024 08:00 AM AMBULATORY - MEDICINE [facility] Lab Results: +/- 30 days of the encounter This section includes the Chemistry and Hematology Lab Results on record with [place] for the patient. Radiology Reports and Pathology Reports are provided separately, in subsequent sections. Lab Results This section contains the Chemistry/Hematology Results that were resulted 30 days before or 30 daysafter the date of the Encounter. Date/Time Source Result Type Result - Unit Interpretation Reference Range Comment Feb 27, 2024 07:43 AM [facility] CREATININE (eGFR 2020) Specimen Type: SERUM No comment entered. Ordering Provider: ELIEL SEGURA Report Released Date/Time: Feb 23, 2024 02:44 PM Reporting Lab: [address] [address] Performing Lab: [address] [address] CREATININE, Serum 0.84 mg/dL 0.50-1.40 eGFR(CKD-EPI 2020) >90 mL/min >60 Feb 27, 2024 07:43 AM [facility] PT & INR (COUMADIN) Specimen Type: PLASMA No comment entered. Ordering Provider: ELIEL SEGURA Report Released Date/Time: Feb 23, 2024 02:44 PM Reporting Lab: [address] [address] Performing Lab: [address] [address] INR 1.4 PROTIME 15.4 s H 10.0-13.1 Feb 27, 2024 07:43 AM [facility] LIVER FUNCTION Specimen Type: SERUM No comment entered. Ordering Provider: ELIEL SEGURA Report Released Date/Time: Feb 23, 2024 02:44 PM Reporting Lab: [address] [address] Performing Lab: [address] [address] PROTEIN,TOTAL 6.3 g/dL 6.0-8.3 ALBUMIN 3.5 g/dL 3.5-5.0 ALKALINE PHOSPHATASE 45 U/L 40-150 AST 19 U/L 5-34 ALT 23 U/L BILIRUBIN, TOTAL 0.6 mg/dL 0.2-1.2 Feb 27, 2024 07:43 AM [facility] CBC Specimen Type: BLOOD No comment entered. Ordering Provider: ELIEL SEGURA Report Released Date/Time: Feb 23, 2024 02:44 PM Reporting Lab: [facility] [address] [address] Performing Lab: [place] [facility] [address] [address] WBC 6.44 10*3/uL 4.50-11.00 RBC 4.42 10*6/uL [...] and tobacco- related health factors from the [place] facility where the Encounter took place. Current Smoking Status This section includes the most current smoking, or tobacco-related health factor, from the [place] facility where the Encounter took place. Date/Time Current Smoking Status Comment Ginger ity Jul 21, 2023 01:30 PM VA-TOBACCO QUIT 15 YRS OR MORE [facility] Tobacco Use History This section includes a history of the smoking, or tobacco-related health factors, that were collected on or before the date of the Encounter. The data comes from the [place] facility where the Encounter took place. Date/Time Smoking Status/Tobacco Use Comment F acility Jul 21, 2023 01:30 PM VA-TOBACCO QUIT 15 YRS OR MORE [place] [facility] [place] [facility] Mar 28, 2021 03:28 PM VA-[facility]BACCO [facility] Mar 28, 2021 03:28 PM VA-TOBACCO QUIT 15 YRS OR MORE [place] [facility] [place] [facility] Dec 02, 2019 09:36 AM VA-TOBACCO NEVER USED [facility] [place] [facility] Apr 23, 2005 10:19 AM QUIT TOBACCO USE IN PAST YEAR [facility] Advance Directives: All historical and current Section Date Range: From patient's date of to the date document was created. This section includes ALL of a patient's completed or amended [place] Advance and Rescinded Directives. The entries below indicate that a directive exists for the patient, but an actual copy is not included with this document. The data comes from all [place] facilities. Date Advance Directives Provider Source Dec 16, 2011 ADVANCE DIRECTIVE DISCUSSION MARGARITA TERRAZAS [place] Encounter Notes: All associated encounter notes This section contains the clinical notes associated to the Encounter. Date/Time Encounter Note(s) Provider Source Feb 12, 2024 10:52 AM PRIMARY CARE SECURE MESSAGING: LOCAL TITLE: PRIMARY CARE SECURE MESSAGING STANDARD TITLE: PRIMARY CARE SECURE MESSAGING DATE OF NOTE: FEB 12, 2024@10:52 ENTRY DATE: FEB 12, 2024@10:52:12 AUTHOR: AISHA SANDERS EXP COSIGNER: URGENCY: STATUS: COMPLETED ------Original Message ------ Sent: 02/12/2024 10:32 AM ET From: ANDREEA OVIEDO To: Sebas SEGURA_PRIMARY CARE_[facility] Subject: General:Records Request I have asked Dr. Tu Atkinson, who first diagnosed my A-Flutter, for his office notes on my visits. I have provided him the FAX number you gave that his office will send these on to you as requested. We are currently downloading [facility] notes for you as you wanted. These will be put in files and send to you as Add Attachment in a later message today. Further update, although I underwent cardioversion, which was successful at the time, I have since reverted back into A-Flutter and will fwd info and office notes as available. The unofficial/pending plan calls for another cardioversion or ablation to be determined. Call me if you need anything. Alina Oviedo /lisa/ AISHA SANDERS, RN REGISTERED NURSE Signed: 02/12/2024 10:52 AISHA SANDERS [place] [facility]
--- OUTSIDE RECORDS SUMMARY | 2024-05-10 07:23 | XMS_ITS ---
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 [place] Organization [place] Address [address] [place] [address] Care Team Providers Care Staffing Associate Name Role Phone CHITO SEGURA Primary Care [...] PART A Feb 16, 2018 PART A [id number] YENNY OVIEDO ES PATIENT MEDICARE (WNR) MEDICARE (M) PART B Feb 16, 2018 PART B [id number] YENNY OVIEDO ES PATIENT MEDICARE (WNR) MEDICARE (M) PART A Oct 17, 2006 PART A [id number] [facility] YENNY OVIEDO PATIENT FOR LIFE TFL* Apr 06, 2018 [id number] YENNY OVIEDO PATIENT Selected Encounter This section includes the information on record at [place] for the Encounter. Date/Time Encounter Type Encounter Description Reason Pro vider Source Feb 12, 2024 12:01 PM Outpatient Encounter ADMIN PAT ACTIVTIES (MASNONCT) IHE Encounter Template Text not used by [place] Plan of Treatment: Future Appointments (+ 6 months) and Future Tests (+/- 45 days) The Plan of Treatment section includes future care activities for the patient from all [place] treatmentfacilities. This section includes future appointments and future orders which are active, pending or scheduled. Future Appointments This section includes appointments that were scheduled to occur 6 months from the date of the Encounter, up to a maximum of 20 appointments. The data comes from all [place] treatment facilities. Appointment Date/Time Appointment Type Appointme nt Facility Name Feb 16, 2024 08:00 AM AMBULATORY - MEDICINE [facility] Feb 17, 2024 07:30 AM AMBULATORY - NONE [place] [facility] [place] [facility] Mar 16, 2024 09:30 AM AMBULATORY - NONE [place] [facility] [place] [facility] Mar 30, 2024 07:30 AM AMBULATORY - MEDICINE [place] [facility] [place] [facility] Apr 06, 2024 09:00 AM AMBULATORY - MEDICINE [facility] Apr 12, 2024 08:00 AM AMBULATORY - MEDICINE [facility] Apr 12, 2024 11:00 AM AMBULATORY - MEDICINE [place] [facility] [place] [facility] Apr 12, 2024 01:30 PM AMBULATORY - MEDICINE [place] [facility] [place] [facility] Apr 30, 2024 01:40 PM AMBULATORY - NONE [place] [facility] [place] [facility] May 28, 2024 08:30 AM AMBULATORY - MEDICINE [place] [facility] [place] [facility] May 31, 2024 11:00 AM AMBULATORY - MEDICINE [place] [facility] [place] [facility] Jun 01, 2024 07:30 AM AMBULATORY - NONE [place] [facility] [place] [facility] Jun 28, 2024 08:00 AM [facility] Lab Results: +/- 30 days of the encounter This section includes the Chemistry and Hematology Lab Results on record with [place] for the patient. Radiology Reports and Pathology Reports are provided separately, in subsequent sections. Lab Results This section contains the Chemistry/Hematology Results that were resulted 30 days before or 30 daysafter the date of the Encounter. Date/Time Source Result Type Result - Unit Interpretation Reference Range Comment Feb 27, 2024 07:43 AM [facility] CREATININE (eGFR 2020) Specimen Type: SERUM No comment entered. Ordering Provider: ELIEL SEGURA Report Released Date/Time: Feb 23, 2024 02:44 PM Reporting Lab: [facility] [address] [facility] [address] Performing Lab: [address] [address] CREATININE, Serum 0.84 mg/dL 0.50-1.40 eGFR(CKD-EPI 2020) >90 mL/min >60 Feb 27, 2024 07:43 AM [facility] PT & INR (COUMADIN) Specimen Type: PLASMA No comment entered. Ordering Provider: ELIEL SEGURA Report Released Date/Time: Feb 23, 2024 02:44 PM Reporting Lab: [address] [address] Performing Lab: [address] [address] INR 1.4 PROTIME 15.4 s H 10.0-13.1 Feb 27, 2024 07:43 AM [facility] LIVER FUNCTION Specimen Type: SERUM No comment entered. Ordering Provider: ELIEL SEGURA Report Released Date/Time: Feb 23, 2024 02:44 PM Reporting Lab: [address] [address] Performing Lab: [address] [address] PROTEIN,TOTAL 6.3 g/dL 6.0-8.3 ALBUMIN 3.5 g/dL 3.5-5.0 ALKALINE PHOSPHATASE 45 U/L 40-150 AST 19 U/L 5-34 ALT 23 U/L BILIRUBIN, TOTAL 0.6 mg/dL 0.2-1.2 Feb 27, 2024 07:43 AM [facility] CBC Specimen Type: BLOOD No comment entered. Ordering Provider: ELIEL SEGURA Report Released Date/Time: Feb 23, 2024 02:44 PM Reporting Lab: [place] [facility] [place] [facility] [address] [facility] [address] Performing Lab: [place] [facility] [place] [facility] [address] [facility] [address] WBC 6.44 10*3/uL 4.50-11.00 RBC 4.42 10*6/uL [...] and tobacco- related health factors from the [place] facility where the Encounter took place. Current Smoking Status This section includes the most current smoking, or tobacco-related health factor, from the [place] facility where the Encounter took place. Date/Time Current Smoking Status Comment Ginger ellis Jul 21, 2023 01:30 PM [facility]ACCO [facility] Tobacco Use History This section includes a history of the smoking, or tobacco-related health factors, that were collected on or before the date of the Encounter. The data comes from the [place] facility where the Encounter took place. Date/Time Smoking Status/Tobacco Use Comment F acsophia Jul 21, 2023 01:30 PM VA-TOBACCO QUIT 15 YRS OR MORE [place] [facility] [place] [facility] Mar 28, 2021 03:28 PM VA-TOBACCO FORMER USER [place] [facility] [place] [facility] Mar 28, 2021 03:28 PM VA-TOBACCO QUIT 15 YRS OR MORE [place] [facility] [place] [facility] Dec 02, 2019 09:36 AM VA-TOBACCO NEVER USED [place] [facility] [place] [facility] Apr 23, 2005 10:19 AM QUIT TOBACCO USE IN PAST YEAR [place] [facility] [place] [facility] Advance Directives: All historical and current Section Date Range: From patient's date of to the date document was created. This section includes ALL of a patient's completed or amended VA Advance and Rescinded Directives. The entries below indicate that a directive exists for the patient, but an actual copy is not included with this document. The data comes from all [place] facilities. Date Advance Directives Provider Source Dec 16, 2011 ADVANCE DIRECTIVE DISCUSSION MARGARITA TERRAZAS [place] Encounter Notes: All associated encounter notes This section contains the clinical notes associated to the Encounter. Date/Time Encounter Note(s) Provider Source Feb 12, 2024 12:01 PM ADMINISTRATIVE NOTE: LOCAL TITLE: CCC: SCHEDULING ADMINISTRATION STANDARD TITLE: ADMINISTRATIVE NOTE DATE OF NOTE: FEB 12, 2024@12:01:32 ENTRY DATE: FEB 12, 2024@12:01:32 AUTHOR: TREVOR HUNTER COSIGNER: URGENCY: STATUS: COMPLETED CCC: SCHEDULING ADMINISTRATION Has ADDENDA Patient Demographics Patient Name: ANDREEA OVIEDO Patient Primary Phone: [phone] Patient Primary Address: [address] [place] [address] Patient : 1955 Patient Age: 68 Caller/Recipient Relation to Patient: Self Administrative Administrative Note Reason: Other Administrative Note Comments: Pine calling requesting to speak with PACT RN. Pine states he would like to discuss the phone call he received from [facility] in regards to ER visit last week. Please advise. IMPORTANT: This note was created by [facility] Clinical Contact Center staff. Please do not alert the staff member by adding them as a signer for future communications. Alerts are not monitored by this user. /lisa/ TREVOR HUNTER V1 [facility] A[facility] Signed: 02/12/2024 12:01 Receipt Acknowledged By: 02/12/2024 14:37 /lisa/ AISHA SANDERS RN REGISTERED NURSE 02/13/2024 10:19 /es/ DERIC FLORES LPN 02/12/2024 ADDENDUM STATUS: COMPLETED Spoke to who updated PACT on health concerns, reporting returning to a- flutter after cardioversion and wanted to confirm active Cardiology consult to continue care. Pine has consult good until 07/2024, call with any additional questions. Understood and agreed to plan. /lisa/ AISHA SANDERS, MANJU REGISTERED NURSE Signed: 02/12/2024 14:38 [facility]
--- OUTSIDE RECORDS SUMMARY | 2024-05-10 07:24 | XMS_ITS | Encounter Summary ---
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 [place] Organization [facility] [place] Address [address] [place] [address] Care Team Providers Care Technology Instructor Name Role Phone CHITO SEGURA Primary Care [...] PART A Feb 16, 2018 PART A [id number] YENNY OVIEDO PATIENT MEDICARE (WNR) MEDICARE (M) PART B Feb 16, 2018 PART B [id number] YENNY OVIEDO PATIENT MEDICARE (WNR) MEDICARE (M) PART A Oct 17, 2006 PART A [id number] [facility] [phone] YENNY OVIEDO PATIENT FOR LIFE TFL* Apr 06, 2018 [id number] YENNY OVIEDO PATIENT Selected Encounter This section includes the information on record at [place] for the Encounter. Date/Time Encounter Type Encounter Description Reason Pro vider Source Feb 19, 2024 09:26 AM Outpatient Encounter EVENT (HISTORICAL) IHE Encounter Template Text not used by [facility] Plan of Treatment: Future Appointments (+ 6 months) and Future Tests (+/- 45 days) The Plan of Treatment section includes future care activities for the patient from all [place] [facility]. This section includes future appointments and future orders which are active, pending or scheduled. Future Appointments This section includes appointments that were scheduled to occur 6 months from the date of the Encounter, up to a maximum of 20 appointments. The data comes from all [place] treatment facilities. Appointment Date/Time Appointment Type Appointme nt Facility Name Mar 16, 2024 09:30 AM AMBULATORY - NONE [place] [facility] [place] [facility] Mar 30, 2024 07:30 AM AMBULATORY - MEDICINE [place] [facility] [place] [facility] Apr 06, 2024 09:00 AM AMBULATORY - MEDICINE [facility] Apr 12, 2024 08:00 AM AMBULATORY - MEDICINE [facility] Apr 12, 2024 11:00 AM AMBULATORY - MEDICINE [place] [facility] [place] [facility] Apr 12, 2024 01:30 PM AMBULATORY - MEDICINE [place] [facility] [facility] Apr 30, 2024 01:40 PM AMBULATORY - NONE [place] [facility] [place] [facility] May 28, 2024 08:30 AM AMBULATORY - MEDICINE [place] [facility] [place] [facility] May 31, 2024 11:00 AM AMBULATORY - MEDICINE [place] [facility] [place] [facility] Jun 01, 2024 07:30 AM AMBULATORY - NONE [place] [facility] [facility] Jun 28, 2024 08:00 AM AMBULATORY - MEDICINE [facility] Lab Results: +/- 30 days of the encounter This section includes the Chemistry and Hematology Lab Results on record with [place] for the patient. Radiology Reports and Pathology Reports are provided separately, in subsequent sections. Lab Results This section contains the Chemistry/Hematology Results that were resulted 30 days before or 30 daysafter the date of the Encounter. Date/Time Source Result Type Result - Unit Interpretation Reference Range Comment Feb 27, 2024 07:43 AM [place] [facility] [place] [facility] CREATININE (eGFR 2020) Specimen Type: SERUM No comment entered. Ordering Provider: ELIEL SEGURA Report Released Date/Time: Feb 23, 2024 02:44 PM Reporting Lab: [facility] [address] [address] Performing Lab: [facility] [address] CREATININE, Serum 0.84 mg/dL 0.50-1.40 eGFR(CKD-EPI 2020) >90 mL/min >60 Feb 27, 2024 07:43 AM [facility] PT & INR (COUMADIN) Specimen Type: PLASMA No comment entered. Ordering Provider: ELIEL SEGURA Report Released Date/Time: Feb 23, 2024 02:44 PM Reporting Lab: [facility]N [facility] [address] Performing Lab: [facility] [address] INR 1.4 PROTIME 15.4 s H 10.0-13.1 Feb 27, 2024 07:43 AM [facility] LIVER FUNCTION Specimen Type: SERUM No comment entered. Ordering Provider: ELIEL SEGURA Report Released Date/Time: Feb 23, 2024 02:44 PM Reporting Lab: [facility]ITALN [facility]ITALUSETS [address] [address] Performing Lab: [facility] [address] PROTEIN,TOTAL 6.3 g/dL 6.0-8.3 ALBUMIN 3.5 g/dL 3.5-5.0 ALKALINE PHOSPHATASE 45 U/L 40-150 AST 19 U/L 5-34 ALT 23 U/L BILIRUBIN, TOTAL 0.6 mg/dL 0.2-1.2 Feb 27, 2024 07:43 AM [facility] CBC Specimen Type: BLOOD No comment entered. Ordering Provider: ELIEL SEGURA Report Released Date/Time: Feb 23, 2024 02:44 PM Reporting Lab: [facility]ITALN [facility]ITALUSETS [address] [address] Performing Lab: [facility]ITALN [facility]USE[facility] [address] [facility] [address] WBC 6.44 10*3/uL 4.50-11.00 RBC 4.42 10*6/uL [...] and tobacco- related health factors from the [place] facility where the Encounter took place. Current Smoking Status This section includes the most current smoking, or tobacco-related health factor, from the [place] facility where the Encounter took place. Date/Time Current Smoking Status Comment Facil ity Jul 21, 2023 01:30 PM VA-TOBACCO QUIT 15 YRS OR MORE [facility] Tobacco Use History This section includes a history of the smoking, or tobacco-related health factors, that were collected on or before the date of the Encounter. The data comes from the [place] facility where the Encounter took place. Date/Time Smoking Status/Tobacco Use Comment F acsophia Jul 21, 2023 01:30 PM VA-TOBACCO QUIT 15 YRS OR MORE [facility] Mar 28, 2021 03:28 PM VA-TOBACCO FORMER [facility]ER [facility]N [facility] Mar 28, 2021 03:28 PM VA-TOBACCO QUIT 15 YRS OR MORE [facility] Dec 02, 2019 09:36 AM VA-TOBACCO NEVER USED [facility] Apr 23, 2005 10:19 AM QUIT TOBACCO USE IN PAST YEAR [facility] Advance Directives: All historical and current Section Date Range: From patient's date of to the date document was created. This section includes ALL of a patient's completed or amended [place] Advance and Rescinded Directives. The entries below indicate that a directive exists for the patient, but an actual copy is not included with this document. The data comes from all [place] facilities. Date Advance Directives Provider Source Dec 16, 2011 ADVANCE DIRECTIVE DISCUSSION MARGARITA TERRAZAS [place] Encounter Notes: All associated encounter notes This section contains the clinical notes associated to the Encounter. Date/Time Encounter Note(s) Provider Source Feb 19, 2024 09:26 AM [facility]ERGY & IMMUNOLO GY ADVERSE EVENT NOTE: LOCAL TITLE: Adverse React/Allergy STANDARD TITLE: ALLERGY & IMMUNOLOGY ADVERSE EVENT NOTE DATE OF NOTE: FEB 19, 2024@09:26:17 ENTRY DATE: FEB 19, 2024@09:26:19 AUTHOR: AL GOMES EXP COSIGNER: URGENCY: STATUS: COMPLETED The allergy to PENICILLIN was removed on 02/19/24. This reaction was either an erroneous entry or was found to no longer be a true allergy. Author's comments: - PT reports no allergy /es/ AL GOMES PharmD CLINICAL PHARMACIST Signed: 02/19/2024 09:36 AL GOMES [place] [facility]
--- OUTSIDE RECORDS SUMMARY | 2024-05-10 07:24 | XMS_ITS | Encounter Summary ---
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 Date/Time Encounter Type Encounter Description Reason Provider Source Feb 16, 2024 08:00 AM OFFICE O/P EST LOW 20 MIN PODIATRY ICD-10-CM L60.3 Nail dystrophy JUVENAL ROSS [facility] Encounter Template Text not used by [place] Assessments - Encounter Diagnoses This section includes the primary and secondary diagnoses documented for the Encounter. Date/Time Primary/Secondary Diagnosis Diagnosis Name Provider Source Feb 16, 2024 08:20 AM PRIMARY Nail dystrophy JUVENAL ROSS [place] Feb 16, 2024 08:20 AM SECONDARY Pain in left toe(s) JUVENAL ROSS [place] Feb 16, 2024 08:20 AM SECONDARY Pain in right toe(s) JUVENAL ROSS [place] Feb 16, 2024 08:20 AM SECONDARY Type 2 diabetes w diabetic peripheral angiopath w/o gangrene JUVENAL ROSS [place] Plan of Treatment: Future Appointments (+ 6 months) and Future Tests (+/- 45 days) The Plan of Treatment section includes future care activities for the patient [facility] [place] [facility] This section includes future appointments and future orders which are active, pending or scheduled. Future Appointments This section includes appointments that were scheduled to occur 6 months from the date of the Encounter, up to a maximum of 20 appointments. The data comes from all [place] treatment facilities. Appointment Date/Time Appointment Type Appointme nt Facility Name Feb 17, 2024 07:30 AM AMBULATORY - NONE [facility] [place] [facility] Mar 16, 2024 09:30 AM AMBULATORY - NONE [facility] [place] [facility] Mar 30, 2024 07:30 AM AMBULATORY - MEDICINE [facility] [place] [facility] Apr 06, 2024 09:00 [facility] Apr 12, 2024 08:00 AM [facility] - MEDICINE [facility] Apr 12, 2024 11:00 AM AMBULATORY - MEDICINE [facility] [place] [facility] Apr 12, 2024 01:30 PM AMBULATORY - MEDICINE [facility] [place] [facility] Apr 30, 2024 01:40 PM AMBULATORY - NONE [facility] [place] [facility] May 28, 2024 08:30 AM AMBULATORY - MEDICINE [facility] [place] [facility] May 31, 2024 11:00 AM AMBULATORY - MEDICINE [facility] [place] [facility] Jun 01, 2024 07:30 AM AMBULATORY - NONE [facility] [place] [facility] Jun 28, 2024 08:00 AM AMBULATORY - MEDICINE [facility] Lab Results: +/- 30 days of the encounter This section includes the Chemistry and Hematology Lab Results on record with [place] for the patient. Radiology Reports and Pathology Reports are provided separately, in subsequent sections. Lab Results This section contains the Chemistry/Hematology Results that were resulted 30 days before or 30 daysafter the date of the Encounter. Date/Time Source Result Type Result - Unit Interpretation Reference Range Comment Feb 27, 2024 07:43 AM [facility] CREATININE (eGFR 2020) Specimen Type: SERUM No comment entered. Ordering Provider: ELIEL SEGURA Report Released Date/Time: Feb 23, 2024 02:44 PM Reporting [facility]: [facility] [address] [address] Performing Lab: [address] [address] CREATININE, Serum 0.84 mg/dL 0.50-1.40 eGFR(CKD-EPI 2020) >90 mL/min >60 Feb 27, 2024 07:43 AM [facility] PT & INR (COUMADIN) Specimen Type: PLASMA No comment entered. Ordering Provider: ELIEL SEGURA Report Released Date/Time: Feb 23, 2024 02:44 PM Reporting [facility] [address] Performing Lab: [facility] [address] INR 1.4 PROTIME 15.4 s H 10.0-13.1 Feb 27, 2024 07:43 AM [facility] LIVER FUNCTION Specimen Type: SERUM No comment entered. Ordering Provider: ELIEL SEGURA Report Released Date/Time: Feb 23, 2024 02:44 PM Reporting [facility] [address] Performing Lab: [address] [address] PROTEIN,TOTAL 6.3 g/dL 6.0-8.3 ALBUMIN 3.5 g/dL 3.5-5.0 ALKALINE PHOSPHATASE 45 U/L 40-150 AST 19 U/L 5-34 ALT 23 U/L BILIRUBIN, TOTAL 0.6 mg/dL 0.2-1.2 Feb 27, 2024 07:43 AM [facility] CBC Specimen Type: BLOOD No comment entered. Ordering Provider: ELIEL SEGURA Report Released Date/Time: Feb 23, 2024 02:44 PM Reporting Lab: [facility] [address] [facility] [address] Performing Lab: [facility] [address] [facility] [address] WBC 6.44 10*3/uL 4.50-11.00 RBC 4.42 10*6/uL [...] and tobacco- related health factors from the [place] facility where the Encounter took place. Current Smoking Status This section includes the most current smoking, or tobacco-related health factor, from the [place] facility where the Encounter took place. Date/Time Current Smoking Status Comment Ginger ellis Jul 22, 2022 10:00 AM VA-TOBACCO FORMER USER [place] Tobacco Use History This section includes a history of the smoking, or tobacco-related health factors, that were collected on or before the date of the Encounter. The data comes from the [place] facility where the Encounter took place. Date/Time Smoking Status/Tobacco Use Comment F yusef Jul 22, 2022 10:00 AM AR-TOBACCO QUIT 15 YRS OR MORE [place] Dec 02, 2018 09:23 AM VA-TOBACCO FORMER USER [place] Dec 02, 2018 09:23 AM AR-TOBACCO QUIT 15 YRS OR MORE [place] Apr 20, 2018 10:23 AM VA-TOBACCO FORMER USER [place] Apr 20, 2018 10:23 AM VA-TOBACCO QUIT 15 YRS OR MORE [place] Dec 16, 2016 08:40 AM QUIT TOBACCO USE > 7 YEARS AGO [place] Jul 17, 2015 08:14 AM QUIT TOBACCO USE > 7 YEARS AGO quit many yrs ago [place] Aug 04, 2009 08:22 AM QUIT TOBACCO USE > 7 YEARS AGO quit over ten years ago [place] Dec 03, 2007 02:22 PM QUIT TOBACCO USE 1 -7 YEARS AGO [place] May 21, 2007 08:03 AM QUIT TOBACCO USE 1 -7 YEARS AGO [place] Jul 25, 2004 09:38 AM CURRENT SMOKER Smokes about 10 cigarettes/day, and trying to quit on his own [place] Apr 27, 2004 01:32 PM LIFETIME NON-TOBACCO USER [place] Advance Directives: All historical and current Section Date Range: From patient's date of to the date document was created. This section includes ALL of a patient's completed or amended [place] Advance and Rescinded Directives. The entries below indicate that a directive exists for the patient, but an actual copy is not included with this document. The data comes from all [facility]. Date Advance Directives Provider Source Dec 16, 2011 ADVANCE DIRECTIVE DISCUSSION MARGARITA TERRAZAS [place] Encounter Notes: All associated encounter notes This section contains the clinical notes associated to the Encounter. Date/Time Encounter Note(s) Provider Source Feb 16, 2024 07:24 AM PODIATRY NOTE: LOCAL TITLE: PODIATRY NOTE STANDARD TITLE: PODIATRY NOTE DATE OF NOTE: FEB 16, 2024@07:24 ENTRY DATE: FEB 16, 2024@07:24:45 AUTHOR: JUVENAL ROSS COSIGNER: URGENCY: STATUS: COMPLETED NOTE: HAS RECEIVED BOTH COVID VACCINE DOSES + 3 BOOSTERS AT [facility] LAST SEEN FOR TREATMENT: 12/01/2023 S: Pt. is a 68yo alert W[facility] CAUC MALE who IS SEEN for CONTINUED podiatric examination & CARE for treatment of a presenting complaint of painful thick ingrown toenails. Patient has DM & is at risk of injury with self or other non- professional care. Patient had been referred by: DR. DESIR Location of symptoms are: nails 1-2-3-4-5 bilateral Onset of symptoms has been several weeks due to this being a recurrent condition that has been exacerbating over the past few weeks. Duration of symptoms is daily with periods of xacerbation and remission. Description of symptoms is of an aching nature. Contributing factors are: shoes and increased activity. RELATES BEING HOSPITALIZED WITH SEVERAL PROBLEMS INCLUDING CARDIAC REQUIRING CARDIO VERSION ADN NOW ON OZEMPIC? AND FELL AND FRACTURED HER HIP. PMH: Active problems - Computerized Problem List is the source for the following: *NOTE: REVIEWED ABOVE NOTING Non-contributory OTHER THAN DM AND OBESITY *PLEASE SEE PROBLEM LIST TEMPLATE FOR COMPLETE LIST NEEDED. Family History: Non-contributory Social History: N/A *NOTE: DENIES ANY RECENT CHANGES IN MEDS UPON QUESTIONING TODAY-SEE RECONCILIATION PERFORMED THIS DATE BELOW TOBACCO USE = NONE Allergies: NONSTEROIDAL ANTI-INFLAMMATORY, PENICILLIN, ROCEPHIN, POVIDONE IODINE, PHISOHEX, THIMEROSAL, PAXIL, PINEAPPLES, MONOSODIUM GLUTAMATE, MELONS, LISINOPRIL Previous Surgery/Hospitalization: N/A *NOTE: A1c = 6.1 (LAST TAKEN: 12/2023) WLC=735WW RISK: 2 HEIGHT:249 lb [113.2 kg] (12/02/2019 09:35) WEIGHT:70 in [177.8 cm] (07/06/2019 09:15) REVIEW OF SYSTEMS: DEFERRED BEING NON-CONTRIBUTORY TO THE CC & I HAVE REVIEWED THE PCP NOTES AND PMH WELL. O: DERMATOLOGICAL: Exam reveals skin color & text to be WNL. Temp is diminished warm to cool proximal to distal. There is normal distribution of hair noted. Nails are thickened yellow-brown discolored and displaying flakiness, crumbling, sub-ungual debris and rubor in the affected nail grooves. The affected nails are 1-2-3 BILAT. There are no superficial painful hyperkeratotic lesions noted at this time. There are no rashes, ulcers, indurations or nodules noted. VASCULAR: Exam reveals DP & PT pulses to be +2 equal & symmetrical bilateral. CFT is < 3 sec x 10. There are no superficial varices noted and there is +2 edema noted. MUSCULOSKELETAL: Exam reveals muscle strength and tone to be equal & symmetrical bilaterally & WNL for an individual of this age and present physical-medical condition. There is pain free ROM at all joints distal to and including the ankle. THERE ARE NO APPARENT BONY ABNORMALITIES NOTED AT THIS TIME. NEUROLOGICAL: Exam reveals S/D, vibratory, light touch & proprioception sensations to be equal & symmetrical bilaterally & WNL for an individual of this age and present physical-medical status. Protective sensation utilizing a Jessup-Janak lOg monofilament is 10/10 bilateral. BIOMECHANICAL: Exam is deferred at this time as BEING non-contributory to the cc . A: Clinical Impression is painful onychocryptic dystrophic nails 1-2-3-4-5 RT & 1-2-3 LEFT in the presence of DM & PAIN. P: Treatment consists of debridement-reduction of all nails via manual & electric means with excision of the offending nail borders and thinning of the nail plates to the point of imminent bleeding. All care rendered without complications & the patient is progressing well after podiatric care this date and will be scheduled for periodic podiatric care in an attempt to prevent future complications due to the underlying medical conditions. Treatment by a non-professional could be extremely hazardous to the patient's wellbeing due to the underlying medical conditions. RTC: (04/12 & 06/28 @ 8AM) ) *REVIEWED HOME FOOT CARE FEET ARE IN EXCELLENT CONDITION AND I PROVIDED HIM WITH WRITTEN RECOMMENDATIONS FOR FOOT CARE TO BE REVIEWED AT HOME (FOOT CARE TIPS). *DISCUSSED NEW PROTOCOLS AND CALLED [facility] TODAY FOR RESCHEDULING I DISCUSSED THE FINDINGS & PLAN WITH PATIENT (UNCHANGED SINCE PREVIOUS VISIT) & PATIENT AGREES AND UNDERSTANDS PLAN & RECEIVED MIRROR Medication Reconciliation: PERFORMED TODAY - SEE BELOW. Outpatient: Has the patient been taking medications as documented in the EMLR? YES: The patient has been taking medications as documented in the EMLR. Essential Medication List for Review used to complete this medication reconciliation. INCLUDED IN THIS LIST: Alphabetical list of active outpatient prescriptions dispensed from this [facility] (local) and dispensed from another [place] or DoD facility (remote) as well as inpatient orders (local, pending and active), local clinic medications, locally documented non-VA medications, and local prescriptions that have or been discontinued in the past 90 days. - All changes in medications, including all non-VA/Herbal/OTC medications were entered into CPRS. - If there were any medications the patient should no longer take, they were discontinued. - The patient/caregiver was instructed to update this list, discard old lists, and take this list to the next appointment, whether with a VA or non-VA provider. JLV Link Data on this list may not be complete. Please check JLV. Allergies/ADRs (Tool #5) FACILITY ALLERGY/ADR -------- CLNCL/HLTH RAJESH REPT EFF [id number] TAMSULOSIN [facility] LISINOPRIL [facility] LOSARTAN [facility] MELONS [facility] MONOSODIUM GLUTAMATE [facility] NONSTEROIDAL ANTI-INFLAMMATORY [facility] PAXIL [facility] PENICILLIN [facility] PHISOHEX [facility]INE[facility]PL[facility] ROCEPHIN [facility] TAMSULOSIN [facility] THIMEROSAL Med Recon NoGlossary (Tool #1) INCLUDED IN THIS LIST: Alphabetical list of active outpatient prescriptions dispensed from this VA (local) and dispensed from another [place] or [facility] facility (remote) as well as inpatient orders (local pending and active), local clinic medications, locally documented non-VA medications, and local prescriptions that have or been discontinued in the past 90 days. Non-VA Meds Last Documented On: September 29, 2023 NOTE The display of VA prescriptions dispensed from another [place] or DoD facility (remote) is limited to active outpatient prescription entries matched to National Drug File at the originating site and may not include some items such as investigational drugs, compounds, etc. NOT INCLUDED IN THIS LIST: Medications self-entered by the patient into personal health records (i.e. [employer] Access) are NOT included in this list. Non-VA medications documented outside this VA, remote inpatient orders (regardless of status) and remote clinic medications are NOT included in this list. The patient and provider must always discuss medications the patient is taking, regardless of where the medication was dispensed or obtained. OUTPT ALBUTEROL 100/IPRATRO 20MCG 120D PO INHL (Status = Active) INHALE 1 PUFF BY MOUTH FOUR TIMES DAILY NEEDED --FOR BREATHING Rx# [id number] Last Released: 02/13/24 Qty/Days Supply: Rx Expiration Date: 02/11/25 Refills Remainin Indication: FOR BRONCHOSPASM OUTPT ATORVASTATIN CALCIUM 40MG TAB (Status = Active/Suspended) TAKE ONE-HALF TABLET BY MOUTH EVERY EVENING FOR CHOLESTEROL Rx# [id number] Last Released: 12/16/23 Qty/Days Supply: Rx Expiration Date: 04/28/24 Refills Remainin Indication: FOR HIGH CHOLESTEROL Non-VA CHOLECALCIF 25MCG (D3-1,000UNIT) TAB TAKE ONE TABLET BY MOUTH ONCE DAILY Indication: FOR VITAMIN D DEFICIENCY OUTPT CYANOCOBALAMIN 1000MCG TAB (Status = Discontinued) TAKE ONE TABLET BY MOUTH ONCE DAILY Rx# [id number] Last Released: 12/30/23 Qty/Days Supply: Rx Expiration Date: 04/28/24 Refills Remainin Indication: FOR PREVENTION OF VITAMIN B12 DEFICIENCY OUTPT CYANOCOBALAMIN 1000MCG TAB (Status = Active/Suspended) TAKE ONE TABLET BY MOUTH ONCE DAILY Rx# [id number] Last Released: Qt/Days Supply: Rx Expiration Date: 01/22/25 Refills Remainin Indication: FOR PREVENTION OF VITAMIN B12 DEFICIENCY Non-VA DICLOFENAC 1% GEL (EQV-VOLTAREN) GEL,TOP APPLY TOPICALLY FOUR TIMES A DAY OUTPT DILTIAZEM (EQV-CARDIZEM) 180MG 24HR CAP (Status = Discontinued) TAKE ONE CAPSULE BY MOUTH ONCE DAILY Rx# [id number] Last Released: 11/12/23 Qty/Days Supply: Rx Expiration Date: 06/04/24 Refills Remainin OUTPT EPINEPHRINE (EQV-EPI-PEN) 0.3MG/0.3ML (Status = Active) INJECT DIRECTED INTRAMUSCULARLY NEEDED FOR LIFE THREATENING ALLERGIC REACTION Rx# [id number] Last Released: 01/26/24 Qty/Days Supply: Rx Expiration Date: 04/21/24 Refills Remainin Indication: FOR LIFE THREATENING ALLERGIC REACTION OUTPT FINASTERIDE 5MG TAB (Status = Discontinued) TAKE ONE TABLET BY MOUTH DAILY FOR PROSTATE Rx# [id number] Last Released: 12/27/23 Qty/Days Supply: Rx Expiration Date: 02/19/24 Refills Remainin OUTPT FINASTERIDE 5MG TAB (Status = Active/Suspended) TAKE ONE TABLET BY MOUTH DAILY FOR PROSTATE Rx# [id number] Last Released: Qt Supply: Rx Expiration Date: 01/22/25 Refills Remainin OUTPT FLUTICASONE PROP 50MCG 120D NASAL INHL (Status = Active) INSTILL 2 SPRAYS INTO EACH NOSTRIL ONCE DAILY NEEDED FOR NASAL IRRITATION/INFLAMMATION Rx# [id number] Last Released: 02/04/24 Qty/Days Supply: Rx Expiration Date: 07/21/24 Refills Remainin OUTPT KETOCONAZOLE 2% CREAM (Status = Active/Suspended) APPLY A THIN LAYER TOPICALLY TWICE DAILY FOR ATHLETE'S FOOT Rx# [id number] Last Released: 11/26/23 Qty/Days Supply: Rx Expiration Date: 06/13/24 Refills Remainin Indication: FOR ATHLETE'S FOOT OUTPT METFORMIN HCL 750MG 24HR SA TAB (Status = Active) TAKE TWO TABLETS BY MOUTH EVERY EVENING Rx# [id number] Last Released: 01/06/24 Qty/Days Supply: Rx Expiration Date: 07/21/24 Refills Remainin Indication: FOR TYPE 2 DIABETES MELLITUS OUTPT METOPROLOL SUCCINATE 25MG SA TAB (Status = Discontinued) TAKE ONE TABLET BY MOUTH TWICE DAILY FOR HEART FAILURE Rx# [id number] Last Released: 12/30/23 Qty/Days Supply: Rx Expiration Date: 04/28/24 Refills Remainin Indication: FOR CHRONIC HEART FAILURE OUTPT MICONAZOLE NITRATE 2% TOP PWDR (Status = Active) APPLY SMALL AMOUNT TOPICALLY TWICE DAILY FOR ATHLETE'S FOOT Rx# [id number] Last Released: 11/26/23 Qty/Days Supply: Rx Expiration Date: 07/03/24 Refills Remainin Indication: FOR ATHLETE'S FOOT OUTPT MOMETASONE 200MCG/ACTUAT 120D ORAL INHL (Status = Discontinued) INHALE 2 PUFFS BY MOUTH TWICE DAILY FOR CONTROLLER MEDICATION FOR ASTHMA --RINSE MOUTH AFTER EACH USE Rx# [id number] Last Released: 12/30/23 Qty/Days Supply: Rx Expiration Date: 04/23/24 Refills Remainin Indication: FOR CONTROLLER MEDICATION FOR ASTHMA OUTPT MOMETASONE 200MCG/ACTUAT 120D ORAL INHL (Status = Active/Suspended) INHALE 2 PUFFS BY MOUTH TWICE DAILY FOR CONTROLLER MEDICATION FOR ASTHMA --RINSE MOUTH AFTER EACH USE Rx# [id number] Last Released: QtDays Supply: Rx Expiration Date: 01/22/25 Refills Remainin Indication: FOR CONTROLLER MEDICATION FOR ASTHMA OUTPT MONTELUKAST NA 10MG TAB (Status = Active/Suspended) TAKE ONE TABLET BY MOUTH EVERY EVENING FOR CONTROLLER MEDICATION FOR ASTHMA Rx# [id number] Last Released: 12/16/23 Qty/Days Supply: Rx Expiration Date: 04/28/24 Refills Remainin Indication: FOR CONTROLLER MEDICATION FOR ASTHMA OUTPT OMEPRAZOLE 20MG EC CAP (Status = Active) TAKE TWO CAPSULES BY MOUTH DAILY FOR STOMACH ACID Rx# [id number] Last Released: 02/04/24 Qty/Days Supply: Rx Expiration Date: 07/21/24 Refills Remainin Non-VA OTHER CAP/TAB TAKE BUTALBITAL BY MOUTH ONCE DAILY NEEDED About twice a year for headaches. Non-VA SAW PALMETTO CAP/TAB TAKE BY MOUTH OUTPT SEMAGLUTIDE 1MG/0.75ML INJ PEN 3ML (Status = Active) INJECT 1MG SUBCUTANEOUSLY ONCE A WEEK FOR TYPE 2 DIABETES MELLITUS Rx# [id number] Last Released: 02/11/24 Qty/Days Supply: 06/15 Rx Expiration Date: 06/09/24 Refills Remainin Indication: FOR TYPE 2 DIABETES MELLITUS OUTPT TADALAFIL 5MG TAB (Status = Active) TAKE ONE TABLET BY MOUTH ONCE DAILY FOR BPH Rx# [id number] Last Released: 02/02/24 Qty/Days Supply: Rx Expiration Date: 07/21/24 Refills Remainin Indication: FOR ERECTILE DYSFUNTION OUTPT TERAZOSIN HCL 10MG CAP (Status = Active) TAKE ONE CAPSULE BY MOUTH AT BEDTIME FOR BPH Rx# [id number] Last Released: 01/22/24 Qty/Days Supply: Rx Expiration Date: 07/21/24 Refills Remainin Non-VA TOLTERODINE TARTRATE 2MG SA CAP TAKE 1 CAPSULE BY MOUTH ONCE DAILY Non-VA medication not recommended by VA provider. OUTPT TRIAMCINOLONE ACETONIDE 0.1% CREAM (Status = Active) APPLY A THIN LAYER TOPICALLY TWICE DAILY FOR ITCHING Rx# [id number] Last Released: 10/29/23 Qty/Days Supply: /90 Rx Expiration Date: 06/09/24 Refills Remainin Indication: FOR ITCHING OUTPT WATER STERILE FOR IRRIGATION (Status = Active) IRRIGATE MODERATE AMOUNT DIRECTED ONCE DAILY FOR C-PAP MACHINE Rx# [id number] Last Released: 10/31/23 Qty/Days Supply: 55472/60 Rx Expiration Date: 07/21/24 Refills Remainin SUPPLIES OUTPT ACCU-CHEK GUIDE (GLUCOSE) TEST STRIP (Status = Active) USE 1 STRIP TO TEST BLOOD SUGARS TWO TIMES A WEEK Rx# [id number] Last Released: 11/12/23 Qty/Days Supply: 50/180 Rx Expiration Date: 06/03/24 Refills Remainin Indication: DIABETES MELLITUS /es/ JUVENAL ROSS 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
--- OUTSIDE RECORDS SUMMARY | 2024-05-10 07:24 | XMS_ITS ---
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 [place] Organization [place] Address [address] [place] [address] Care Team Providers Care Capacity Planning Manager Name Role Phone CHITO SEGURA Primary Care [...] PART A Feb 16, 2018 PART A [id number] YENNY OVIEDO PATIENT MEDICARE (WNR) MEDICARE (M) PART B Feb 16, 2018 PART B [id number] YENNY OVIEDO ES PATIENT MEDICARE (WNR) MEDICARE (M) PART A Oct 17, 2006 PART A [id number] [facility] YENNY OVIEDO PATIENT FOR LIFE TFL* Apr 06, 2018 [id number] YENNY OVIEDO PATIENT Selected Encounter This section includes the information on record at [place] for the Encounter. Date/Time Encounter Type Encounter Description Reason Provider Source Feb 17, 2024 07:30 AM RESIN THREE SURFACES-ANTERIO DENTAL ICD-10-CM K03.6 Deposits [accretions] on teeth HOHREITER,VINC ENT IHE Encounter Template Text not used by VA Assessments - Encounter Diagnoses This section includes the primary and secondary diagnoses documented for the Encounter. Date/Time Primary/Secondary Diagnosis Diagnosis Name Provider Source Feb 17, 2024 10:35 AM PRIMARY Deposits [accretions] on teeth HOHREITER,VINC ENT [place] [facility] [place] [facility] Plan of Treatment: Future Appointments (+ 6 months) and Future Tests (+/- 45 days) The Plan of Treatment section includes future care activities for the patient from all [place] [facility] This section includes future appointments and future orders which are active, pending or scheduled. Future Appointments This section includes appointments that were scheduled to occur 6 months from the date of the Encounter, up to a maximum of 20 appointments. The data comes from all [place] treatment facilities. Appointment Date/Time Appointment Type Appointme nt Facility Name Mar 16, 2024 09:30 AM AMBULATORY - NONE [place] [facility] [place] [facility] Mar 30, 2024 07:30 AM AMBULATORY - MEDICINE CO [facility] [place] [facility] Apr 06, 2024 09:00 AM AMBULATORY - MEDICINE [facility] Apr 12, 2024 08:00 AM AMBULATORY - MEDICINE [facility] Apr 12, 2024 11:00 AM AMBULATORY - MEDICINE CO [facility] [place] [facility] Apr 12, 2024 01:30 PM AMBULATORY - MEDICINE CO [facility] [place] [facility] Apr 30, 2024 01:40 PM AMBULATORY - NONE [place] [facility] [place] [facility] May 28, 2024 08:30 AM AMBULATORY - MEDICINE CO [facility] [place] [facility] May 31, 2024 11:00 AM AMBULATORY - MEDICINE CO [facility] [place] [facility] Jun 01, 2024 07:30 AM AMBULATORY - NONE [facility] [place] [facility] Jun 28, 2024 08:00 AM AMBULATORY - MEDICINE [facility] Lab Results: +/- 30 days of the encounter This section includes the Chemistry and Hematology Lab Results on record with [place] for the patient. Radiology Reports and Pathology Reports are provided separately, in subsequent sections. Lab Results This section contains the Chemistry/Hematology Results that were resulted 30 days before or 30 daysafter the date of the Encounter. Date/Time Source Result Type Result - Unit Interpretation Reference Range Comment Feb 27, 2024 07:43 AM [facility] CREATININE (eGFR 2020) Specimen Type: SERUM No comment entered. Ordering Provider: ELIEL SEGURA Report Released Date/Time: Feb 23, 2024 02:44 PM Reporting [facility] [address] [address] Performing Lab: [facility] [address] CREATININE, Serum 0.84 mg/dL 0.50-1.40 eGFR(CKD-EPI 2020) >90 mL/min >60 Feb 27, 2024 07:43 AM [facility] PT & INR (COUMADIN) Specimen Type: PLASMA No comment entered. Ordering Provider: ELIEL SEGURA Report Released Date/Time: Feb 23, 2024 02:44 PM Reporting Lab[facility] [address] [address] Performing Lab: [address] [address] INR 1.4 PROTIME 15.4 s H 10.0-13.1 Feb 27, 2024 07:43 AM [facility] LIVER FUNCTION Specimen Type: SERUM No comment entered. Ordering Provider: ELIEL SEGURA Report Released Date/Time: Feb 23, 2024 02:44 PM Reporting Lab: [facility] [address] [address] Performing Lab: [facility] [address] PROTEIN,TOTAL 6.3 g/dL 6.0-8.3 ALBUMIN 3.5 g/dL 3.5-5.0 ALKALINE PHOSPHATASE 45 U/L 40-150 AST 19 U/L 5-34 ALT 23 U/L BILIRUBIN, TOTAL 0.6 mg/dL 0.2-1.2 Feb 27, 2024 07:43 AM [facility] CBC Specimen Type: BLOOD No comment entered. Ordering Provider: ELIEL SEGURA Report Released Date/Time: Feb 23, 2024 02:44 PM Reporting Lab[facility] [address] [address] Performing Lab: [facility] [address] [address] WBC 6.44 10*3/uL 4.50-11.00 RBC 4.42 10*6/uL [...] and tobacco- related health factors from the [place] facility where the Encounter took place. Current Smoking Status This section includes the most current smoking, or tobacco-related health factor, from the [place] facility where the Encounter took place. Date/Time Current Smoking Status Comment Ginger ellis Jul 21, 2023 01:30 PM VA-TOBACCO [facility] Tobacco Use History This section includes a history of the smoking, or tobacco-related health factors, that were collected on or before the date of the Encounter. The data comes from the [place] facility where the Encounter took place. Date/Time Smoking Status/Tobacco Use Comment F acsophia Jul 21, 2023 01:30 PM VA-TOBACCO QUIT 15 YRS OR MORE [facility] [place] [facility] Mar 28, 2021 03:28 PM VA-TOBACCO FORMER USER [place] [facility] [place] [facility] Mar 28, 2021 03:28 PM VA-TOBACCO QUIT 15 YRS OR MORE [facility] [place] [facility] Dec 02, 2019 09:36 AM VA-TOBACCO NEVER USED [place] [facility] [place] [facility] Apr 23, 2005 10:19 AM QUIT TOBACCO USE IN PAST YEAR [facility] Advance Directives: All historical and current Section Date Range: From patient's date of to the date document was created. This section includes ALL of a patient's completed or amended [place] Advance and Rescinded Directives. The entries below indicate that a directive exists for the patient, but an actual copy is not included with this document. The data comes from all [place] facilities. Date Advance Directives Provider Source Dec 16, 2011 ADVANCE DIRECTIVE DISCUSSION MARGARITA TERRAZAS [place] Encounter Notes: All associated encounter notes This section contains the clinical notes associated to the Encounter. Date/Time Encounter Note(s) Provider Source Feb 17, 2024 10:32 AM DENTISTRY NOTE: LOCAL TITLE: DENTAL NOTE STANDARD TITLE: DENTISTRY NOTE DATE OF NOTE: FEB 17, 2024@10:32 ENTRY DATE: FEB 17, 2024@10:35:43 AUTHOR: VIKI KELLEY COSIGNER: URGENCY: STATUS: COMPLETED Patient Name: ANDREEA OVIEDO, : 1955, Age: 68 Visit: S: Feb 17, 2024@07:30 [facility] DENTAL DMD 2. Primary PCE Diagnosis: K03.6 (DEPOSITS [ACCRETIONS] ON TEETH). Dental Category: 15-OPC, Class IV. Treatment Status: Maintenance. Completed Care: (D0140) LIMIT ORAL EVAL PROBLM FOCUS. DX: K03.6 Deposits [Accretions] on Teeth (D5422) DENTURES ADJUST PART MANDBL. DX: K03.6 Deposits [Accretions] on Teeth (D2332) RESIN THREE SURFACES-ANTERIO. Tooth: 6. Surface(s): MFD. DX: K03.6 Deposits [Accretions] on Teeth Presentation/Chief Complaint: Patient presents for limited oral evaluation Irritating suture from recent extraction Vital Signs: Dental Pain (0-10): 0 Past Medical History and Medications: Significant changes are noted since the last dental visit: Taking amiodarone Active Problems: Atrial fibrillation (SCT 82621763) Exposure to potentially hazardous substance (SCT 539734798472920) SAS - Sleep apnea syndrome (SCT 24851476) COPD - Chronic Obstructive Pulmonary Disease (SCT 24445608) Gastroesophageal reflux disease (SCT 498090865) Benign localized hyperplasia of prostate ([facility] 926388232) Deficiency of vitamin D3 ([facility] 065725086) Thrombocytopenia ([facility] 006631176) Diabetes mellitus type 2 ([facility] 72480917) Disorder of rotator cuff ([facility] 301412335) Lumbar Radiculopathy (ICD-9-CM 724.4) Diverticulitis, Colonic (ICD-9-CM 562.11) Gastroesophageal Reflux Disorder (ICD-9-CM 530.81) Degenerative arthritis ([facility] 397496841) Mitral Valve Prolapse (ICD-9-CM 424.0) Hyperlipidaemia ([facility] 10455806) Benign essential hypertension ([facility] 2755456) Obesity (ICD-9-CM 278.00) Posttraumatic Stress Disorder (EC) (ICD-9-CM 309.81) Panic Attacks (EC) (ICD-9-CM 300.01) Active Medications: Medication reconciliation performed within the scope of dental. needs new pre-med due to med contraindication with azithromycin; Verdigre states he has tolerated cephalexin well in the past ALBUTEROL 100/IPRATRO 20MCG 120D PO INHL - (ACTIVE) FLUTICASONE PROP 50MCG 120D NASAL INHL - (ACTIVE) OMEPRAZOLE 20MG EC CAP - (ACTIVE) TERAZOSIN HCL 10MG CAP - (ACTIVE) WATER STERILE FOR IRRIGATION - (ACTIVE) METFORMIN HCL 750MG 24HR SA TAB - (ACTIVE) TADALAFIL 5MG TAB - (ACTIVE) MICONAZOLE NITRATE 2% TOP PWDR - (ACTIVE) SEMAGLUTIDE 1MG/0.75ML INJ PEN 3ML - (ACTIVE) TRIAMCINOLONE ACETONIDE 0.1% CREAM - (ACTIVE) ACCU-CHEK GUIDE (GLUCOSE) TEST STRIP - (ACTIVE) EPINEPHRINE (EQV-EPI-PEN) 0.3MG/0.3ML - (ACTIVE) DICLOFENAC 1% GEL (EQV-VOLTAREN) GEL,TOP - (ACTIVE) CHOLECALCIF 25MCG (D3-1,000UNIT) TAB - (ACTIVE) OTHER CAP/TAB - (ACTIVE) SAW PALMETTO CAP/TAB - (ACTIVE) TOLTERODINE TARTRATE 2MG SA CAP - (ACTIVE) Oral Examination: Dental Examination: Missing Teeth: 1, 4, 12, 16, 17, 18, 19, 29, 30, 31, 32. Tx: smoothed preparation #6, restored with composite (A3). Adjusted margins, contacts, and occlusion. Adjusted denture for tissue comfort. Assessment/Plan: No contraindications for planned procedure(s). No treatment required at this time Reviewed risks/benefits/alternatives associated with the proposed treatment plan. Patient agrees to treatment plan as discussed. Disposition: Next visit: Prophylaxis Patient to return to dental clinic for continuing care. - - - - - - - - - - - - - - - - - - - - - - - - - - - - - - /lisa/ VIKI KELLEY DMD DENTIST Signed: 02/17/2024 10:35 VIKI KELLEY [facility]
--- OUTSIDE RECORDS SUMMARY | 2024-05-10 07:24 | XMS_ITS | Encounter Summary ---
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 [place] Organization [place] Address [address] [place] [address] Care Team Providers Care Computer Programming Supervisor Name Role Phone OMER MEDRANO Primary Care [...] PART A Feb 16, 2018 PART A [id number] YENNY OVIEDO PATIENT MEDICARE (WNR) MEDICARE (M) PART B Feb 16, 2018 PART B [id number] YENNY OVIEDO ES PATIENT MEDICARE (WNR) MEDICARE (M) PART A Oct 17, 2006 PART A [id number] [facility] [phone] YENNY OVIEDO PATIENT FOR LIFE TFL* Apr 06, 2018 [id number] 11 YENNY OVIEDO PATIENT Selected Encounter This section includes the information on record at [place] for the Encounter. Date/Time Encounter Type Encounter Description Reason Provider Source Feb 20, 2024 11:17 AM Outpatient Encounter PRIMARY CARE/MEDICINE [facility] FLORES IHE Encounter Template Text not used by [place] Plan of Treatment: Future Appointments (+ 6 months) and Future Tests (+/- 45 days) The Plan of Treatment section includes future care activities for the patient from all [place] [facility]. This section includes future appointments and [...] 16, 2024 09:30 AM AMBULATORY - NONE [place] [facility] [place] [facility] Mar 30, 2024 07:30 AM AMBULATORY - MEDICINE [place] [facility] [place] [facility] Apr 06, 2024 09:00 AM AMBULATORY - MEDICINE [facility] Apr 12, 2024 08:00 AM AMBULATORY - MEDICINE [facility] Apr 12, 2024 11:00 AM AMBULATORY - MEDICINE [place] C [facility] [place] [facility] Apr 12, 2024 01:30 PM AMBULATORY - MEDICINE [place] C [facility] [place] [facility] Apr 30, 2024 01:40 PM AMBULATORY - NONE [place] [facility] [place] [facility] May 28, 2024 08:30 AM AMBULATORY - MEDICINE [place] C [facility] [place] [facility] May 31, 2024 11:00 AM AMBULATORY - MEDICINE [place] C [facility] [place] [facility] Jun 01, 2024 07:30 AM AMBULATORY - NONE [place] [facility] [place] [facility] Jun 28, 2024 08:00 AM AMBULATORY [...] Range Comment Feb 27, 2024 07:43 AM [place] [facility] [place] [facility] CREATININE (eGFR 2020) Specimen Type: SERUM No comment entered. Ordering Provider: ELIEL MEDRANO Report Released Date/Time: Feb 23, 2024 02:44 PM Reporting Lab: [facility] [address] [address] Performing Lab: [facility] [address] CREATININE, Serum 0.84 mg/dL 0.50-1.40 eGFR(CKD-EPI 2020) >90 mL/min >60 Feb 27, 2024 07:43 AM [facility] LIVER FUNCTION Specimen Type: SERUM No comment entered. Ordering Provider: ELIEL MEDRANO Report Released Date/Time: Feb 23, 2024 02:44 PM Reporting Lab: [facility] TRN [facility]ENTER[facility] [address] [address] Performing Lab: [facility] [address] PROTEIN,TOTAL 6.3 g/dL 6.0-8.3 ALBUMIN 3.5 g/dL 3.5-5.0 ALKALINE PHOSPHATASE 45 U/L 40-150 AST 19 U/L 5-34 ALT 23 U/L BILIRUBIN, TOTAL 0.6 mg/dL 0.2-1.2 Feb 27, 2024 07:43 AM [facility] PT & INR (COUMADIN) Specimen Type: PLASMA No comment entered. Ordering Provider: ELIEL MEDRANO Report Released Date/Time: Feb 23, 2024 02:44 PM Reporting Lab: [facility]ENTER[facility]ETS [address] [address] Performing Lab: [facility]ENTER[facility]ETS [address] [address] INR 1.4 PROTIME 15.4 s H 10.0-13.1 Feb 27, 2024 07:43 AM [facility] CBC Specimen Type: BLOOD No comment entered. Ordering Provider: ELIEL MEDRANO Report Released Date/Time: Feb 23, 2024 02:44 PM Reporting Lab: [facility]ENTER[facility] [address] [address] Performing Lab: [facility] [place] [facility] [address] [address] WBC 6.44 10*3/uL 4.50-11.00 RBC 4.42 10*6/uL [...] 21, 2023 01:30 PM VA-TOBACCO FORMER USER [facility] Tobacco Use History This section includes a history of the smoking, or tobacco-related health factors, that were collected on or before the date of the Encounter. The data comes from the [place] facility where the Encounter took place. Date/Time Smoking Status/Tobacco Use Comment Wilberto luciosophia Jul 21, 2023 01:30 PM VA-TOBACCO QUIT 15 YRS OR MORE [facility] Mar 28, 2021 03:28 PM VA-TOBACCO FORMER [facility]ER [facility] Mar 28, 2021 03:28 PM VA-TOBACCO QUIT 15 YRS OR MORE [facility] WSN [facility] Dec 02, 2019 09:36 AM VA-TOBACCO NEVER USED [facility] Apr 23, 2005 10:19 AM QUIT TOBACCO USE IN PAST YEAR [facility] Advance Directives: All historical and current Section Date Range: From patient's date of to the date document was created. This section includes ALL of a patient's completed or amended [place] Advance and Rescinded Directives. The entries below indicate that a directive exists for the patient, but an actual copy is not included with this document. The data comes from all [place] facilities. Date Advance Directives Provider Source Dec 16, 2011 ADVANCE DIRECTIVE DISCUSSION JOSEF TERRAZASCARLOS PEPE JONES Encounter Notes: All associated encounter notes This section contains the clinical notes associated to the Encounter. Date/Time Encounter Note(s) Provider Source Feb 24, 2024 08:05 AM ADDENDUM: LOCAL TITLE: Addendum STANDARD TITLE: ADDENDUM DATE OF NOTE: FEB 24, 2024@08:05:09 ENTRY DATE: FEB 24, 2024@08:05:10 AUTHOR: OMER MEDRANO COSIGNER: URGENCY: STATUS: COMPLETED Please tell him that we need some labs to updated his blood thinner. Nonfasting. /lisa/ Omer Medrano PA-C STAFF PHYSICIAN PHILOSOPHY FACULTY MEMBER Signed: 02/24/2024 08:05 Receipt Acknowledged By: 02/24/2024 14:44 /lisa/ DERIC FLORES LPN ========= --- Original Document --- 02/20/24 PRIMARY CARE SECURE MESSAGING: ------Original Message -------- Sent: 02/19/2024 08:59 AM ET From: ANDREEA OVIEDO To: Sebas MEDRANO_PRIMARY CARE_[facility] Subject: Medication:Tadalafil, Eliquis ,Antibiotics 1. My Tadalafil script ran out and I called the pharmacy about it as directed online. They said you need to renew it, which I already knew. 2. Eliquis...Ordered by and am followed by Dr. Fernando. Pharmacy provided script by Dr. Fernando and the pharmacy is talking to me about some anticoag clinic. Pharmacy isn't filling it as of now. I spoke to German in the pharmacy this morning and told him have been on it since 29 December and stopping it is NOT an option. I currently am wearing Holter Monitor and scheduled for an Echo the . Will advise you on further actions/tests/procedure s by Dr. Fernando, but concerned about Eliquis stoppage. He and Dr. Atkinson (PCP) following me closely with all results to you. 3. Have removed Rocephin from allergy list. Received Ceftriaxone on 02/01/24 and Cefazolin during my valve replacement without issue. I was not the one who listed it as an allergy. Instructions please on Eliquis or someone please tell me what is up with who wants what. /lisa/ DERIC FLORES LPN Signed: 02/20/2024 11:17 Receipt Acknowledged By: 02/22/2024 16:45 /lisa/ Omer Medrano PA-C STAFF PHYSICIAN PHILOSOPHY FACULTY MEMBER OMER MEDRANO [place] [facility] Feb 20, 2024 11:17 AM PR[facility] E MESSAGING: LOCAL TITLE: PRIMARY CARE SECURE MESSAGING STANDARD TITLE: PRIMARY CARE SECURE MESSAGING DATE OF NOTE: FEB 20, 2024@11:17 ENTRY DATE: FEB 20, 2024@11:17:09 AUTHOR: DERIC FLORES EXP COSIGNER: URGENCY: STATUS: COMPLETED PRIMARY CARE SECURE MESSAGING Has ADDENDA ------Original Message -------- Sent: 02/19/2024 08:59 AM ET From: ANDREEA OVIEDO To: Sebas MEDRANO_PRIMARY CARE[facility] Subject: Medication:Tadalafil, Eliquis ,Antibiotics 1. My Tadalafil script ran out and I called the pharmacy about it as directed online. They said you need to renew it, which I already knew. 2. Eliquis...Ordered by and am followed by Dr. Fernando. Pharmacy provided script by Dr. Fernando and the pharmacy is talking to me about some anticoag clinic. Pharmacy isn't filling it as of now. I spoke to German in the pharmacy this morning and told him have been on it since 29 December and stopping it is NOT an option. I currently am wearing Holter Monitor and scheduled for an Echo the . Will advise you on further actions/tests/procedure s by Dr. Fernando, but concerned about Eliquis stoppage. He and Dr. Atkinson (PCP) following me closely with all results to you. 3. Have removed Rocephin from allergy list. Received Ceftriaxone on 02/01/24 and Cefazolin during my valve replacement without issue. I was not the one who listed it as an allergy. Instructions please on Eliquis or someone please tell me what is up with who wants what. /lisa/ DERIC FLORES LPN Signed: 02/20/2024 11:17 Receipt Acknowledged By: 02/22/2024 16:45 /lisa/ Omer Medrano PA-C STAFF PHYSICIAN PHILOSOPHY FACULTY MEMBER 02/24/2024 ADDENDUM STATUS: COMPLETED Please tell him that we need some labs to updated his blood thinner. Nonfasting. /lisa/ Omer Medrano PA-C STAFF PHYSICIAN PHILOSOPHY FACULTY MEMBER Signed: 02/24/2024 08:05 Receipt Acknowledged By: * AWAITING SIGNATURE * DERIC FLORES CHRISTOPHER E [place] [facility]
--- OUTSIDE RECORDS SUMMARY | 2024-05-10 07:24 | XMS_ITS | Encounter Summary ---
Author Name [place] Address [address] [place] [id number] Care Team Providers Care Brazer Electronic Name Role Phone CHITO SEGURA Primary Care [...] PART A Feb 16, 2018 PART A [id number] YENNY OVIEDO PATIENT MEDICARE (WNR) MEDICARE (M) PART B Feb 16, 2018 PART B [id number] YENNY OVIEDO PATIENT MEDICARE (WNR) MEDICARE (M) PART A Oct 17, 2006 PART A [id number] [facility] YENNY OVIEDO PATIENT FOR LIFE TFL* Apr 06, 2018 [id number] YENNY OVIEDO PATIENT Selected Encounter This section includes the information on record at [place] for the Encounter. Date/Time Encounter Type Encounter Description Reason Pro vider Source Feb 16, 2024 08:21 AM Outpatient Encounter DENTAL IHE Encounter Template Text not used by [facility] Plan of Treatment: Future Appointments (+ 6 months) and Future Tests (+/- 45 days) The Plan of Treatment section includes future care activities for the patient from all [place] [facility]. This section includes future appointments and future orders which are active, pending or scheduled. Future Appointments This section includes appointments that were scheduled to occur 6 months from the date of the Encounter, up to a maximum of 20 appointments. The data comes from all [place] treatment facilities. Appointment Date/Time Appointment Type Appointme nt Facility Name Feb 17, 2024 07:30 AM AMBULATORY - NONE [place] [facility] [place] [facility] Mar 16, 2024 09:30 AM AMBULATORY - NONE [place] [facility] [place] [facility] Mar 30, 2024 07:30 AM AMBULATORY - MEDICINE [place] [facility] Apr 06, 2024 09:00 AM [facility] Apr 12, 2024 08:00 AM [facility] Apr 12, 2024 11:00 AM AMBULATORY [place]ICINE [place] [facility] Apr 12, 2024 01:30 PM AMBULATORY [place]ICINE [place] [facility] Apr 30, 2024 01:40 PM AMBULATORY - NONE [place] [facility] [place] [facility] May 28, 2024 08:30 AM AMBULATORY [place]ICINE [place] [facility] May 31, 2024 11:00 AM AMBULATORY - MEDICINE [place] [facility] Jun 01, 2024 07:30 AM AMBULATORY - NONE [place] [facility] [facility] Jun 28, 2024 08:00 AM AMBULATORY - MEDICINE [facility] Lab Results: +/- 30 days of the encounter This section includes the Chemistry and Hematology Lab Results on record with [place] for the patient. Radiology Reports and Pathology Reports are provided separately, in subsequent sections. Lab Results This section contains the Chemistry/Hematology Results that were resulted 30 days before or 30 daysafter the date of the Encounter. Date/Time Source Result Type Result - Unit Interpretation Reference Range Comment Feb 27, 2024 07:43 AM [place] [facility] [facility] CREATININE (eGFR 2020) Specimen Type: SERUM No comment entered. Ordering Provider: ELIEL SEGURA Report Released Date/Time: Feb 23, 2024 02:44 PM Reporting Lab: [address] [address] [facility] [address] [address] CREATININE, Serum 0.84 mg/dL 0.50-1.40 eGFR(CKD-EPI 2020) >90 mL/min >60 Feb 27, 2024 07:43 AM [facility] PT & INR (COUMADIN) Specimen Type: PLASMA No comment entered. Ordering Provider: ELIEL SEGURA Report Released Date/Time: Feb 23, 2024 02:44 PM Reporting Lab: [address] [address] Performing Lab: [address] [address] INR 1.4 PROTIME 15.4 s H 10.0-13.1 Feb 27, 2024 07:43 AM [facility] LIVER FUNCTION Specimen Type: SERUM No comment entered. Ordering Provider: ELIEL SEGURA Report Released Date/Time: Feb 23, 2024 02:44 PM Reporting Lab: [address] [address] Performing Lab: [address] [address] PROTEIN,TOTAL 6.3 g/dL 6.0-8.3 ALBUMIN 3.5 g/dL 3.5-5.0 ALKALINE PHOSPHATASE 45 U/L 40-150 AST 19 U/L 5-34 ALT 23 U/L BILIRUBIN, TOTAL 0.6 mg/dL 0.2-1.2 Feb 27, 2024 07:43 AM [facility] CBC Specimen Type: BLOOD No comment entered. Ordering Provider: ELIEL SEGURA Report Released Date/Time: Feb 23, 2024 02:44 PM Reporting Lab: [address] [address] Performing Lab: [place] [facility] [address] [facility] [address] WBC 6.44 10*3/uL 4.50-11.00 RBC 4.42 10*6/uL [...] and tobacco- related health factors from the [place] facility where the Encounter took place. Current Smoking Status This section includes the most current smoking, or tobacco-related health factor, from the [place] facility where the Encounter took place. Date/Time Current Smoking Status Comment Ginger ity Jul 21, 2023 01:30 PM [facility] Tobacco Use History This section includes a history of the smoking, or tobacco-related health factors, that were collected on or before the date of the Encounter. The data comes from the [place] facility where the Encounter took place. Date/Time Smoking Status/Tobacco Use Comment F acility Jul 21, 2023 01:30 PM VA-TOBACCO QUIT 15 YRS OR MORE [facility] Mar 28, 2021 03:28 PM VA-TOBACCO FORMER USER [place] [facility] Mar 28, 2021 03:28 PM VA-TOBACCO QUIT 15 YRS OR MORE [place] [facility] Dec 02, 2019 09:36 AM VA-TOBACCO NEVER USED [facility] Apr 23, 2005 10:19 AM QUIT TOBACCO USE [facility] PAST [facility] Advance Directives: All historical and current Section Date Range: From patient's date of to the date document was created. This section includes ALL of a patient's completed or amended [place] Advance and Rescinded Directives. The entries below indicate that a directive exists for the patient, but an actual copy is not included with this document. The data comes from all [place] facilities. Date Advance Directives Provider Source Dec 16, 2011 ADVANCE DIRECTIVE DISCUSSION MARGARITA TERRAZAS [place] Encounter Notes: All associated encounter notes This section contains the clinical notes associated to the Encounter. Date/Time Encounter Note(s) Provider Source Feb 16, 2024 08:21 AM DENTISTRY TELEPHON E ENCOUNTER NOTE: LOCAL TITLE: TELEPHONE NOTE/DENTAL STANDARD TITLE: DENTISTRY TELEPHONE ENCOUNTER NOTE DATE OF NOTE: FEB 16, 2024@08:21 ENTRY DATE: FEB 16, 2024@08:21:21 AUTHOR: SOSA ESTEBAN EXP COSIGNER: URGENCY: STATUS: COMPLETED Called pt and LM to confirm dental appointment on 02/17/2024 at 7:30 am. /lisa/ SOSA ESTEBAN ADVANCED [employer] Signed: 02/16/2024 08:22 SOSA ESTEBAN [place] [facility] [facility] [facility]
--- OUTSIDE RECORDS SUMMARY | 2024-05-10 07:24 | XMS_ITS | Encounter Summary ---
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 Address [address] [place] [address] Care Team Providers Care Roadway Technician Name Role Phone CHITO SEGURA Primary Care [...] PART A Feb 16, 2018 PART A [id number] YENNY OVIEDO PATIENT MEDICARE (WNR) MEDICARE (M) PART B Feb 16, 2018 PART B [id number] YENNY OVIEDO ES PATIENT MEDICARE (WNR) MEDICARE (M) PART A Oct 17, 2006 PART A [id number] YENNY OVIEDO PATIENT FOR LIFE TFL* Apr 06, 2018 [id number] [phone] YENNY OVIEDO PATIENT Selected Encounter This section includes the information on record at [place] for the Encounter. Date/Time Encounter Type Encounter Description Reason Pro vider Source Dec 31, 2023 12:00 AM Outpatient Encounter COMMUNITY CARE CONSULT IHE Encounter Template Text not used by [place] Plan of Treatment: Future Appointments (+ 6 months) and Future Tests (+/- 45 days) The Plan of Treatment section includes future care activities for the patient from all [place] [facility]. This section includes future appointments and future orders which are active, pending or scheduled. Future Appointments This section includes appointments that were scheduled to occur 6 months from the date of the Encounter, up to a maximum of 20 appointments. The data comes from all [place] treatment facilities. Appointment Date/Time Appointment Type Appointme nt Facility Name Jan 12, 2024 11:25 AM AMBULATORY - MEDICINE [place] [facility] [place] [facility] Jan 12, 2024 11:40 AM AMBULATORY - MEDICINE [place] [facility] [place] [facility] Jan 22, 2024 01:00 PM AMBULATORY - MEDICINE [place] [facility] [place] [facility] Jan 29, 2024 08:45 AM AMBULATORY - MEDICINE [place] [facility] [place] [facility] Feb 16, 2024 08:00 AM [facility] Feb 17, 2024 07:30 AM AMBULATORY - NONE [place] [facility] [place] [facility] Mar 16, 2024 09:30 AM AMBULATORY - NONE [place] [facility] [place] [facility] Mar 30, 2024 07:30 AM AMBULATORY - MEDICINE [place] [facility] [place] [facility] Apr 06, 2024 09:00 AM [facility] [place] [facility] [place] Apr 12, 2024 08:00 AM [facility] Apr 12, 2024 11:00 AM AMBULATORY - [place]ICINE [place] [facility] Apr 12, 2024 01:30 PM AMBULATORY - MEDICINE [place] [facility] [place] [facility] Apr 30, 2024 01:40 PM AMBULATORY - NONE [facility] [place] [facility] May 28, 2024 08:30 AM AMBULATORY - MEDICINE [place] [facility] [place] [facility] May 31, 2024 11:00 AM AMBULATORY - MEDICINE [place] [facility] [place] [facility] Jun 01, 2024 07:30 AM AMBULATORY - NONE [place] [facility] [place] [facility] Jun 28, 2024 08:00 AM AM[facility]ULATORY - MEDICINE [facility] Lab Results: +/- 30 days of the encounter This section includes the Chemistry and Hematology Lab Results on record with [place] for the patient. Radiology Reports and Pathology Reports are provided separately, in subsequent sections. Lab Results This section contains the Chemistry/Hematology Results that were resulted 30 days before or 30 daysafter the date of the Encounter. Date/Time Source Result Type Result - Unit Interpretation Reference Range Comment Jan 05, 2024 07:32 AM [facility] LIVER FUNCTION Specimen Type: SERUM No comment entered. Ordering Provider: AYUSH SEGURA F Report Released Date/Time: Jul 21, 2023 02:25 PM Reporting Lab: [address] [address] Performing Lab: [address] [address] PROTEIN,TOTAL 6.3 g/dL 6.0-8.3 ALBUMIN 3.6 g/dL 3.5-5.0 ALKALINE PHOSPHATASE 39 U/L L 40-150 AST 13 U/L 5-34 ALT 15 U/L BILIRUBIN, TOTAL 1.0 mg/dL 0.2-1.2 Jan 05, 2024 07:32 AM [facility] BASIC METABOLIC PANEL (fasting) Specimen Type: SERUM No comment entered. Ordering Provider: AYUSH SEGURA Report Released Date/Time: Jul 21, 2023 02:25 PM Reporting Lab: [address] [address] Performing Lab: [address] [address] UREA NITROGEN 21 mg/dL 7-25 GLUCOSE 126 mg/dL H 65-100 SODIUM 139 mmol/L 135-145 POTASSIUM 3.9 mmol/L 3.5-5.0 CHLORIDE 107 mmol/L 100-110 CO2 22 meq/L 20-30 CREATININE, Serum 0.68 mg/dL 0.50-1.40 eGFR(CKD-EPI 2020) >90 mL/min >60 Jan 05, 2024 07:32 AM [facility] LIPID PANEL FASTING Specimen Type: SERUM No comment entered. Ordering Provider: AYUSH SEGURA F Report Released Date/Time: Jul 21, 2023 02:25 PM Reporting Lab: [facility] [address] [facility] [address] Performing Lab: [facility] [address] [facility] [address] CHOLESTEROL 116 mg/dL TRIGLYCERIDE 73 mg/dL 0-150 LDL calculated 62 mg/dL 0-129 CHOL/HDL 3.0 HDL CHOLESTEROL 39 mg/dL L 40-60 Jan 05, 2024 07:32 AM [facility] MICROALBUMIN CREATININE RATIO PANEL Specimen Type: URINE No comment entered. Ordering Provider: AYUSH SEGURA F Report Released Date/Time: Jul 21, 2023 02:25 PM Reporting Lab: [facility] [address] [facility] [address] Performing Lab: [address] [address] MICROALBUMIN/C REATININE RATIO 45.9 mg/g H 0-29.9 MICROALBUMIN,Q UANTITATIVE 5.0 mg/dL RR UNAVAIL CREATININE URINE 108.91 mg/dL Jan 05, 2024 07:32 AM [facility] PSA Specimen Type: SERUM No comment entered. Ordering Provider: AYUSH SEGURA F Report Released Date/Time: Jul 21, 2023 02:25 PM Reporting Lab: [address] [address] Performing Lab: [address] [address] PSA < 0.10 ng/mL 0.00-4.00 Jan 05, 2024 07:32 AM [facility] HEMOGLOBIN A1C PANEL Specimen Type: BLOOD Comment: [...] Jul 21, 2023 02:25 PM Reporting Lab: [address] [address] Performing Lab: [address] [address] HEMOGLOBIN A1C 6.1 H 4.0-5.6 Jan 05, 2024 07:32 AM [facility] URINALYSIS Specimen Type: URINE Comment: If Glucose = >500 and Ketones are positive, please alert the Physician. Ordering Provider: AYUSH SEGURA F Report Released Date/Time: Jul 21, 2023 02:25 PM Reporting Lab: [address] [address] Performing Lab: [address] [address] UA COLOR Yellow Yellow UA APPEARANCE Clear [...] and tobacco- related health factors from the [place] facility where the Encounter took place. Current Smoking Status This section includes the most current smoking, or tobacco-related health factor, from the [place] facility where the Encounter took place. Date/Time Current Smoking Status Comment Facil ity Jul 21, 2023 01:30 PM VA-TOBACCO FORMER USER [facility] Tobacco Use History This section includes a history of the smoking, or tobacco-related health factors, that were collected on or before the date of the Encounter. The data comes from the [place] facility where the Encounter took place. Date/Time Smoking Status/Tobacco Use Comment F acility Jul 21, 2023 01:30 PM [facility] [place] [facility] Mar 28, 2021 03:28 PM [facility] Mar 28, 2021 03:28 PM VA-TOBACCO QUIT [facility] OR [facility] Dec 02, 2019 09:36 AM [facility] Apr 23, 2005 10:19 AM QUIT TOBACCO USE IN PAST YEAR [facility] Advance Directives: All historical and current Section Date Range: From patient's date of to the date document was created. This section includes ALL of a patient's completed or amended [place] Advance and Rescinded Directives. The entries below indicate that a directive exists for the patient, but an actual copy is not included with this document. The data comes from all [place] facilities. Date Advance Directives Provider Source Dec 16, 2011 ADVANCE DIRECTIVE DISCUSSION MARGARITA TERRAZAS [place] Encounter Notes: All associated encounter notes This section contains the clinical notes associated to the Encounter. Date/Time Encounter Note(s) Provider Source Dec 31, 2023 12:00 AM NONVA CONSULT: LOCAL TITLE: COMMUNITY CARE-CONSULT RESULT NOTE STANDARD TITLE: NONVA CONSULT DATE OF NOTE: DEC 31, 2023 ENTRY DATE: FEB 12, 2024@12:18:32 AUTHOR: MAGO WAN EXP COSIGNER: URGENCY: STATUS: COMPLETED VistA Imaging - Scanned Document SCANNED DOCUMENT SIGNATURE NOT REQUIRED Electronically Filed: 02/12/2024 by: MAGO WAN STANDARDS ENGINEER MAGO WAN [facility]
--- OUTSIDE RECORDS SUMMARY | 2024-05-10 07:24 | XMS_ITS | Encounter Summary ---
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 Address [address] [place] [address] Care Team Providers Care Drafter (Cad) Electronic Name Role Phone CHITO SEGURA Primary [...] PART A Feb 16, 2018 PART A [id number] YENNY OVIEDO PATIENT MEDICARE (WNR) MEDICARE (M) PART B Feb 16, 2018 PART B [id number] YENNY OVIEDO PATIENT MEDICARE (WNR) MEDICARE (M) PART A Oct 17, 2006 PART A [id number] [facility] [phone] YENNY OVIEDO PATIENT FOR LIFE TFL* Apr 06, 2018 [id number] YENNY OVIEDO PATIENT Selected Encounter This section includes the information on record at [place] for the Encounter. Date/Time Encounter Type Encounter Description Reason Pro vider Source Feb 19, 2024 09:28 AM Outpatient Encounter EVENT (HISTORICAL) IHE Encounter Template Text not used by [place] Plan of Treatment: Future Appointments (+ 6 months) and Future Tests (+/- 45 days) The Plan of Treatment section includes future care activities for the patient from all [place] [facility]. This section includes future appointments and future orders which are active, pending or scheduled. Future Appointments This section includes appointments that were scheduled to occur 6 months from the date of the Encounter, up to a maximum of 20 appointments. The data comes from all [place] treatment facilities. Appointment Date/Time Appointment Type Appointme nt Facility Name Mar 16, 2024 09:30 AM AMBULATORY - NONE [place] [facility] [place] [facility] Mar 30, 2024 07:30 AM AMBULATORY - MEDICINE [place] [facility] Apr 06, 2024 09:00 AM AMBULATORY - MEDICINE [facility] Apr 12, 2024 08:00 AM AMBULATORY - MEDICINE [facility] Apr 12, 2024 11:00 AM AMBULATORY - MEDICINE [place] [facility] Apr 12, 2024 01:30 PM AMBULATORY - MEDICINE [place] [facility] Apr 30, 2024 01:40 PM AMBULATORY - NONE [place] [facility] [place] [facility] May 28, 2024 08:30 AM AMBULATORY - MEDICINE [place] [facility] May 31, 2024 11:00 AM AMBULATORY - MEDICINE [place] [facility] Jun 01, 2024 07:30 AM AMBULATORY - NONE [place] [facility] [facility] Jun 28, 2024 08:00 AM AMBULATORY - MEDICINE [facility] Lab Results: +/- 30 days of the encounter This section includes the Chemistry and Hematology Lab Results on record with [place] for the patient. Radiology Reports and Pathology Reports are provided separately, in subsequent sections. Lab Results This section contains the Chemistry/Hematology Results that were resulted 30 days before or 30 daysafter the date of the Encounter. Date/Time Source Result Type Result - Unit Interpretation Reference Range Comment Feb 27, 2024 07:43 AM [place] [facility] CREATININE (eGFR 2020) Specimen Type: SERUM No comment entered. Ordering Provider: ELIEL SEGURA Report Released Date/Time: Feb 23, 2024 02:44 PM Reporting Lab: [facility] [address] [address] Performing Lab: [facility] [address] CREATININE, Serum 0.84 mg/dL 0.50-1.40 eGFR(CKD-EPI 2020) >90 mL/min >60 Feb 27, 2024 07:43 AM [facility] PT & INR (COUMADIN) Specimen Type: PLASMA No comment entered. Ordering Provider: ELIEL SEGURA Report Released Date/Time: Feb 23, 2024 02:44 PM Reporting Lab: [facility] [address] Performing Lab: [facility] [address] INR 1.4 PROTIME 15.4 s H 10.0-13.1 Feb 27, 2024 07:43 AM [facility] LIVER FUNCTION Specimen Type: SERUM No comment entered. Ordering Provider: ELIEL SEGURA Report Released Date/Time: Feb 23, 2024 02:44 PM Reporting Lab: [facility] [address] [address] Performing Lab: [facility] [address] PROTEIN,TOTAL 6.3 g/dL 6.0-8.3 ALBUMIN 3.5 g/dL 3.5-5.0 ALKALINE PHOSPHATASE 45 U/L 40-150 AST 19 U/L 5-34 ALT 23 U/L BILIRUBIN, TOTAL 0.6 mg/dL 0.2-1.2 Feb 27, 2024 07:43 AM [facility] CBC Specimen Type: BLOOD No comment entered. Ordering Provider: ELIEL SEGURA Report Released Date/Time: Feb 23, 2024 02:44 PM Reporting Lab: [facility]ENTERUSETS [address] [address] Performing Lab: [facility] [address] [facility] [address] WBC 6.44 10*3/uL 4.50-11.00 RBC 4.42 10*6/uL [...] and tobacco- related health factors from the [place] facility where the Encounter took place. Current Smoking Status This section includes the most current smoking, or tobacco-related health factor, from the [place] facility where the Encounter took place. Date/Time Current Smoking Status Comment Facil ity Jul 21, 2023 01:30 PM VA-TOBACCO QUIT 15 YRS OR MORE [facility] Tobacco Use History This section includes a history of the smoking, or tobacco-related health factors, that were collected on or before the date of the Encounter. The data comes from the [place] facility where the Encounter took place. Date/Time Smoking Status/Tobacco Use Comment F acsophia Jul 21, 2023 01:30 PM VA-TOBACCO QUIT 15 YRS OR MORE [facility] Mar 28, 2021 03:28 PM VA-TOBACCO FORMER USER [facility] Mar 28, 2021 03:28 PM VA-TOBACCO QUIT 15 YRS OR MORE [facility] Dec 02, 2019 09:36 AM VA-TOBACCO NEVER USED [facility] Apr 23, 2005 10:19 AM QUIT TOBACCO USE IN PAST YEAR [facility] Advance Directives: All historical and current Section Date Range: From patient's date of to the date document was created. This section includes ALL of a patient's completed or amended [place] Advance and Rescinded Directives. The entries below indicate that a directive exists for the patient, but an actual copy is not included with this document. The data comes from all [place] facilities. Date Advance Directives Provider Source Dec 16, 2011 ADVANCE DIRECTIVE DISCUSSION MARGARITA TERRAZAS [place] Encounter Notes: All associated encounter notes This section contains the clinical notes associated to the Encounter. Date/Time Encounter Note(s) Provider Source Feb 19, 2024 09:28 AM ALLERGY & IMMUNOLO GY ADVERSE EVENT NOTE: LOCAL TITLE: Adverse React/Allergy STANDARD TITLE: ALLERGY & IMMUNOLOGY ADVERSE EVENT NOTE DATE OF NOTE: FEB 19, 2024@09:28:52 ENTRY DATE: FEB 19, 2024@09:28:54 AUTHOR: AL GOMES EXP COSIGNER: URGENCY: STATUS: COMPLETED The allergy to ROCEPHIN was removed on 02/19/24. This reaction was either an erroneous entry or was found to no longer be a true allergy. Author's comments: PT reports no known allergy to this med/class, PT is unclear why this allergy is listed /es/ AL GOMES,PharmD CLINICAL PHARMACIST Signed: 02/19/2024 09:36 AL GOMES [place] [facility]
--- OUTSIDE RECORDS SUMMARY | 2024-05-10 07:25 | XMS_ITS | Encounter Summary ---
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 [place] Organization [facility] [place] Address [address] [place] [address] Care Team Providers Care Nurse Outreach Case Manager Name Role Phone CHITO SEGURA Primary [...] PART A Feb 16, 2018 PART A [id number] YENNY OVIEDO PATIENT MEDICARE (WNR) MEDICARE (M) PART B Feb 16, 2018 PART B [id number] YENNY OVIEDO ES PATIENT MEDICARE (WNR) MEDICARE (M) PART A Oct 17, 2006 PART A [id number] [facility] YENNY OVIEDO PATIENT FOR LIFE TFL* Apr 06, 2018 [id number] [phone] YENNY OVIEDO PATIENT Selected Encounter This section includes the information on record at OR for the Encounter. Date/Time Encounter Type Encounter Description Reason Provider Source Mar 09, 2024 08:46 AM Outpatient Encounter PRIMARY CARE/MEDICINE AISHA SANDERS E Encounter Template Text not used by OR Plan of Treatment: Future Appointments (+ 6 months) and Future Tests (+/- 45 days) The Plan of Treatment section includes future care activities for the patient from [facility] This section includes future appointments and future orders which are active, pending or scheduled. Future Appointments This section includes appointments that were scheduled to occur 6 months from the date of the Encounter, up to a maximum of 20 appointments. The data comes from all [facility]. Appointment Date/Time Appointment Type Appointme nt Facility Name Mar 16, 2024 09:30 AM AMBULATORY - NONE [place] [facility] [place] [facility] Mar 30, 2024 07:30 AM AMBULATORY - MEDICINE [place] [facility] [place] [facility] Apr 06, 2024 09:00 AM AM[facility]ULATORY - MEDICINE [facility] Apr 12, 2024 08:00 AM [facility] Apr 12, 2024 11:00 AM AMBULATORY - MEDICINE [place] [facility] [place] [facility] Apr 12, 2024 01:30 PM AMBULATORY - MEDICINE [place] [facility] [place] [facility] Apr 30, 2024 01:40 PM AMBULATORY - NONE [place] [facility] [place] [facility] May 28, 2024 08:30 AM AMBULATORY - MEDICINE [place] [facility] [place] [facility] May 31, 2024 11:00 AM AMBULATORY - MEDICINE [place] [facility] [place] [facility] Jun 01, 2024 07:30 AM AMBULATORY - NONE [place] [facility] [place] [facility] Jun 28, 2024 08:00 AM [facility] Aug 23, 2024 08:00 AM [facility] Active, Pending, and Scheduled Orders This section includes a listing of several types of active, pending, and scheduled orders, including clinic medications orders, diagnostic test orders, procedure orders and consult orders; where the start date of the order is 45 days before the date of the Encounter or 45 days after the date of theEncounter. The data comes from all [facility]. Test Date/Time Test Type Test Details Facility Name Apr 15, 2024 07:42 AM Consult Order COMMUNITY CARE-CARDIAC SURGERY Cons Coloring Machine Operator's Choice OR [facility] Lab Results: +/- 30 days of the encounter This section includes the Chemistry and Hematology Lab Results on record with [place] for the patient. Radiology Reports and Pathology Reports are provided separately, in subsequent sections. Lab Results This section contains the Chemistry/Hematology Results that were resulted 30 days before or 30 daysafter the date of the Encounter. Date/Time Source Result Type Result - Unit Interpretation Reference Range Comment Feb 27, 2024 07:43 AM [facility] CREATININE (eGFR 2020) Specimen Type: SERUM No comment entered. Ordering Provider: ELIEL SEGURA Report Released Date/Time: Feb 23, 2024 02:44 PM Reporting Lab: [address] [address] Performing Lab: [address] [address] CREATININE, Serum 0.84 mg/dL 0.50-1.40 eGFR(CKD-EPI 2020) >90 mL/min >60 Feb 27, 2024 07:43 AM [facility] LIVER FUNCTION Specimen Type: SERUM No comment entered. Ordering Provider: ELIEL SEGURA Report Released Date/Time: Feb 23, 2024 02:44 PM Reporting Lab: [address] [address] Performing Lab: [address] [address] PROTEIN,TOTAL 6.3 g/dL 6.0-8.3 ALBUMIN 3.5 g/dL 3.5-5.0 ALKALINE PHOSPHATASE 45 U/L 40-150 AST 19 U/L 5-34 ALT 23 U/L BILIRUBIN, TOTAL 0.6 mg/dL 0.2-1.2 Feb 27, 2024 07:43 AM [facility] PT & INR (COUMADIN) Specimen Type: PLASMA No comment entered. Ordering Provider: ELIEL SEGURA Report Released Date/Time: Feb 23, 2024 02:44 PM Reporting Lab: [address] [address] Performing Lab: [facility] [address] [facility] [address] INR 1.4 PROTIME 15.4 s H 10.0-13.1 Feb 27, 2024 07:43 AM [facility] CBC Specimen Type: BLOOD No comment entered. Ordering Provider: ELIEL SEGURA Report Released Date/Time: Feb 23, 2024 02:44 PM Reporting Lab: [facility] [address] [address] Performing Lab: [facility] [address] [address] WBC 6.44 10*3/uL 4.50-11.00 RBC 4.42 10*6/uL [...] and tobacco- related health factors from the [place] facility where the Encounter took place. Current Smoking Status This section includes the most current smoking, or tobacco-related health factor, from the [place] facility where the Encounter took place. Date/Time Current Smoking Status Comment Ginger ellis Jul 21, 2023 01:30 PM VA-TOBACCO FORMER USER [facility] Tobacco Use History This section includes a history of the smoking, or tobacco-related health factors, that were collected on or before the date of the Encounter. The data comes from the [place] facility where the Encounter took place. Date/Time Smoking Status/Tobacco Use Comment F yusef Jul 21, 2023 01:30 PM VA-TOBACCO QUIT 15 YRS OR MORE [facility] Mar 28, 2021 03:28 PM VA-TOBACCO FORMER USER [facility] Mar 28, 2021 03:28 PM [place]-TOBACCO QUIT 15 YRS OR MORE [facility] Dec 02, 2019 09:36 AM VA-TOBACCO NEVER USED [facility] Apr 23, 2005 10:19 AM QUIT TOBACCO USE IN PAST YEAR [facility] Advance Directives: All historical and current Section Date Range: From patient's date of to the date document was created. This section includes ALL of a patient's completed or amended [place] Advance and Rescinded Directives. The entries below indicate that a directive exists for the patient, but an actual copy is not included with this document. The data comes from all [place] facilities. Date Advance Directives Provider Source Dec 16, 2011 ADVANCE DIRECTIVE DISCUSSION MARGARITA TERRAZAS Encounter Notes: All associated encounter notes This section contains the clinical notes associated to the Encounter. Date/Time Encounter Note(s) Provider Source Mar 09, 2024 08:46 AM PRIMARY CARE [employer] MESSAGING: [facility] TITLE: PRIMARY CARE SECURE MESSAGING STANDARD TITLE: PRIMARY CARE SECURE MESSAGING DATE OF NOTE: MAR 09, 2024@08:46 ENTRY DATE: MAR 09, 2024@08:46:30 AUTHOR: AISHA SANDERS COSIGNER: URGENCY: STATUS: COMPLETED ------Original Message ------- Sent: 03/05/2024 11:00 AM ET From: ANDREEA OVIEDO To: Sebas SEGURA_PRIMARY CARE_[facility] Subject: General:Cardiology Visit Notes and Labs Attachments: Cardiology visit 03.04.2024.pdf (275.14 KB), Lab results.pdf (134.47 KB) Attached are the office notes from my Cardiology visit on 03/04/2024 and labs that were performed 03/05/2024. Will keep you updated on all future events as soon as we know. If you need to share information with my Cardiologists office and my PCP, please let me know if I need to sign a waiver for this or this message is sufficient. Andreea Oviedo ------Original Message ------- Sent: 03/08/2024 08:37 AM ET From: AISHA SANDERS To: ANDREEA OVIEDO Subject: General:Cardiology Visit Notes and Labs Thank you very much, I will save these notes to your file and update your PCP. I do not believe we should need any waiver to share info between providers. Thank you for your service, MANJU Ware - PACT Board Attendant ------Original Message ------- Sent: 03/08/2024 08:43 AM ET From: ANDREEA OVIEDO To: Sebas SEGURA_PRIMARY CARE_[facility] Subject: General:Cardiology Visit Notes and Labs Thank you. I am scheduled for a cardiac cath, possible stent if needed and an exploration of my mitral valve. This will be done at [facility] by Dr Taylor on March 23. ------Original Message ------- Sent: 03/09/2024 08:46 AM ET From: AISHA SANDERS To: ANDREEA OVIEDO Subject: General:Cardiology Visit Notes and Labs Thank you , I will pass along the information. Thank you for your service, MANJU Ware - PACT Board Attendant /lisa/ AISHA SANDERS RN REGISTERED NURSE Signed: 03/09/2024 08:46 AISHA SANDERS [facility]
--- OUTSIDE RECORDS SUMMARY | 2024-05-10 07:25 | XMS_ITS | Encounter Summary ---
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 Address [address] [place] [address] Care Team Providers Care Lighter Name Role Phone CHITO SEGURA Primary Care [...] PART A Feb 16, 2018 PART A [id number] [phone] YENNY OVIEDO PATIENT MEDICARE (WNR) MEDICARE (M) PART B Feb 16, 2018 PART B [id number] [phone] [id number] YENNY OVIEDO PATIENT MEDICARE (WNR) MEDICARE (M) PART A Oct 17, 2006 PART A [id number] YENNY OVIEDO PATIENT FOR LIFE TFL* Apr 06, 2018 [id number] YENNY OVIEDO PATIENT Selected Encounter This section includes the information on record at [place] for the Encounter. Date/Time Encounter Type Encounter Description Reason Pro vider Source Feb 12, 2024 12:00 AM Outpatient Encounter EVENT (HISTORICAL) IHE Encounter Template Text not used by [facility] Plan of Treatment: Future Appointments (+ 6 months) and Future Tests (+/- 45 days) The Plan of Treatment section includes future care activities for the patient from all [place] [facility]. This section includes future appointments and future orders which are active, pending or scheduled. Future Appointments This section includes appointments that were scheduled to occur 6 months from the date of the Encounter, up to a maximum of 20 appointments. The data comes from all [place] treatment facilities. Appointment Date/Time Appointment Type Appointme nt Facility Name Feb 16, 2024 08:00 AM AMBULATORY - MEDICINE [facility] Feb 17, 2024 07:30 AM AMBULATORY - NONE [place] [facility] [place] [facility] Mar 16, 2024 09:30 AM AMBULATORY - NONE [place] [facility] [place] [facility] Mar 30, 2024 07:30 AM AMBULATORY - MEDICINE [place] [facility] [place] [facility] Apr 06, 2024 09:00 AM AMBULATORY - MEDICINE [facility] Apr 12, 2024 08:00 AM AMBULATORY - MEDICINE [facility] Apr 12, 2024 11:00 AM AMBULATORY - MEDICINE [place] [facility] [place] [facility] Apr 12, 2024 01:30 PM AMBULATORY - MEDICINE [place] [facility] [place] [facility] Apr 30, 2024 01:40 PM AMBULATORY - NONE [place] [facility] [place] [facility] May 28, 2024 08:30 AM AMBULATORY - MEDICINE [place] [facility] [place] [facility] May 31, 2024 11:00 AM AMBULATORY - MEDICINE [place] [facility] [place] [facility] Jun 01, 2024 07:30 AM AMBULATORY - NONE [place] [facility] [place] [facility] Jun 28, 2024 08:00 AM AMBULATORY - MEDICINE [facility] Lab Results: +/- 30 days of the encounter This section includes the Chemistry and Hematology Lab Results on record with [place] for the patient. Radiology Reports and Pathology Reports are provided separately, in subsequent sections. Lab Results This section contains the Chemistry/Hematology Results that were resulted 30 days before or 30 daysafter the date of the Encounter. Date/Time Source Result Type Result - Unit Interpretation Reference Range Comment Feb 27, 2024 07:43 AM [facility] [place] [facility] CREATININE (eGFR 2020) Specimen Type: SERUM No comment entered. Ordering Provider: ELIEL SEGURA Report Released Date/Time: Feb 23, 2024 02:44 PM Reporting Lab: [facility] [address] [address] Performing Lab: [address] [address] CREATININE, Serum 0.84 mg/dL 0.50-1.40 eGFR(CKD-EPI 2020) >90 mL/min >60 Feb 27, 2024 07:43 AM [facility] LIVER FUNCTION Specimen Type: SERUM No comment entered. Ordering Provider: ELIEL SEGURA Report Released Date/Time: Feb 23, 2024 02:44 PM Reporting Lab: [address] [address] Performing Lab: [address] [address] PROTEIN,TOTAL 6.3 g/dL 6.0-8.3 ALBUMIN 3.5 g/dL 3.5-5.0 ALKALINE PHOSPHATASE 45 U/L 40-150 AST 19 U/L 5-34 ALT 23 U/L BILIRUBIN, TOTAL 0.6 mg/dL 0.2-1.2 Feb 27, 2024 07:43 AM [facility] PT & INR (COUMADIN) Specimen Type: PLASMA No comment entered. Ordering Provider: ELIEL SEGURA Report Released Date/Time: Feb 23, 2024 02:44 PM Reporting Lab: [address] [address] Performing Lab: [address] [address] INR 1.4 PROTIME 15.4 s H 10.0-13.1 Feb 27, 2024 07:43 AM [facility] CBC Specimen Type: BLOOD No comment entered. Ordering Provider: ELIEL SEGURA Report Released Date/Time: Feb 23, 2024 02:44 PM Reporting [facility] [place] [facility] [address] [address] Performing Lab: [place] [facility] [address] [address] WBC 6.44 10*3/uL 4.50-11.00 RBC 4.42 10*6/uL [...] and tobacco- related health factors from the [place] facility where the Encounter took place. Current Smoking Status This section includes the most current smoking, or tobacco-related health factor, from the [place] facility where the Encounter took place. Date/Time Current Smoking Status Comment Facil ity Jul 21, 2023 01:30 PM [facility] Tobacco Use History This section includes a history of the smoking, or tobacco-related health factors, that were collected on or before the date of the Encounter. The data comes from the [place] facility where the Encounter took place. Date/Time Smoking Status/Tobacco Use Comment F acility Jul 21, 2023 01:30 PM VA-TOBACCO QUIT 15 YRS OR MORE [place] [facility] [place] [facility] Mar 28, 2021 03:28 PM VA-TOBACCO FORMER USER [place] [facility] [place] [facility] Mar 28, 2021 03:28 PM VA-TOBACCO QUIT 15 YRS OR MORE [place] [facility] [place] [facility] Dec 02, 2019 09:36 AM VA-TOBACCO NEVER USED [place] [facility] [place] [facility] Apr 23, 2005 10:19 AM QUIT TOBACCO USE [facility] Advance Directives: All historical and current Section Date Range: From patient's date of to the date document was created. This section includes ALL of a patient's completed or amended [place] Advance and Rescinded Directives. The entries below indicate that a directive exists for the patient, but an actual copy is not included with this document. The data comes from all [place] facilities. Date Advance Directives Provider Source Dec 16, 2011 ADVANCE DIRECTIVE DISCUSSION MARGARITA TERRAZAS [place] Encounter Notes: All associated encounter notes This section contains the clinical notes associated to the Encounter. Date/Time Encounter Note(s) Provider Source Feb 12, 2024 12:00 AM NONVA NOTE: LOCAL TITLE: NON-VA OUTPATIENT NOTES STANDARD TITLE: NONVA NOTE DATE OF NOTE: FEB 12, 2024 ENTRY DATE: MAR 19, 2024@08:31:32 AUTHOR: ALICIA SIMPSON COSIGNER: URGENCY: STATUS: COMPLETED VistA Imaging - Scanned Document SCANNED DOCUMENT SIGNATURE NOT REQUIRED Electronically Filed: 03/19/2024 by: SORAIDA SIMPSON Store Administrative Assistant SORAIDA SIMPSON [place] [facility]
--- OUTSIDE RECORDS SUMMARY | 2024-05-10 07:25 | XMS_ITS | Encounter Summary ---
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 [place] Organization [facility] [place] [facility] [place] Address [address] [place] [id number] Care Team Providers Care Pet Caregiver Name Role Phone CHITO SEGURA Primary Care [...] Policy Santacruz's Name Patient's Relationship to Policy Santcaruz MEDICARE (WNR) MEDICARE (M) PART A Feb 16, 2018 PART A [id number] YENNY OVIEDO PATIENT MEDICARE (WNR) MEDICARE (M) PART B Feb 16, 2018 PART B [id number] YENNY OVIEDO ES PATIENT MEDICARE (WNR) MEDICARE (M) PART A Oct 17, 2006 PART A [id number] [id number] YENNY OVIEDO PATIENT FOR LIFE TFL* Apr 06, 2018 [id number] YENNY OVIEDO PATIENT Selected Encounter This section includes the information on record at [place] for the Encounter. Date/Time Encounter Type Encounter Description Reason Provider Source Jul 04, 2023 09:00 AM THERAPEUTIC EXERCISES OCCUPATIONAL THERAPY ICD-10-CM M25.312 Other instability, left shoulder MACHON,DEENA E IHE Encounter Template Text not used by [place] Assessments - Encounter Diagnoses This section includes the primary and secondary diagnoses documented for the Encounter. Date/Time Primary/Secondary Diagnosis Diagnosis Name Provider Source Jul 04, 2023 01:49 PM PRIMARY Other instability, left shoulder MACHON,DEENA E [facility] [place] [facility] Plan of Treatment: Future Appointments (+ 6 months) and Future Tests (+/- 45 days) The Plan of Treatment section includes future care activities for the patient from [facility] This section includes future appointments and future orders which are active, pending or scheduled. Future Appointments This section includes appointments that were scheduled to occur 6 months from the date of the Encounter, up to a maximum of 20 appointments. The data comes from all [place] treatment facilities. Appointment Date/Time Appointment Type Appointme nt Facility Name Jul 08, 2023 10:00 AM AMBULATORY - [facility] [place] [facility] Jul 17, 2023 08:30 AM AMBULATORY - [facility] MEDICIN [facility] [place] [facility] Jul 17, 2023 12:00 PM AMBULATORY - NONE [facility] [place] [facility] Jul 21, 2023 01:30 PM AMBULATORY - MEDICINE [facility] [place] [facility] Jul 24, 2023 08:30 AM AMBULATORY - RE[facility]AB MEDICIN E [facility] [place] [facility] Jul 31, 2023 08:30 AM AMBULATORY - [facility] MEDICIN [facility] [place] [facility] Aug 04, 2023 08:00 AM [facility] Aug 04, 2023 08:30 AM [facility]ATORY - MEDICINE [facility] Aug 06, 2023 09:00 AM AMBULATORY - REH[facility] MEDICIN E [facility] [place] [facility] Aug 20, 2023 08:30 AM AMBULATORY - REHAB MEDICIN E [facility] [place] [facility] Aug 26, 2023 09:00 AM AMBULATORY - REHAB MEDICIN E [facility] [place] [facility] Sep 01, 2023 09:00 AM AMBULATORY - RE[facility]AB MEDICIN E [facility] [place] [facility] Sep 09, 2023 08:00 AM AMBULATORY - MEDICINE [facility] [place] [facility] Sep 15, 2023 09:00 AM AMB[facility] [place] [facility] September 22, 2023 09:00 AM AMBULATORY - REHAB MEDICIN E [facility] [place] [facility] September 29, 2023 08:00 AM [facility]IC[facility] [place] September 29, 2023 08:30 AM AMB[facility]ATORY - MEDICINE [facility] [place] October 01, 2023 09:00 AM AMBULATORY - REHAB MEDICIN E [facility] [place] [facility] October 07, 2023 02:30 PM AMBULATORY - REHAB MEDICIN E [facility] [place] [facility] October 16, 2023 07:30 AM AMBULATORY - REHAB MEDICIN E [facility] [place] [facility] Lab Results: +/- 30 days of the encounter This section includes the Chemistry and Hematology Lab Results on record with [place] for the patient. Radiology Reports and Pathology Reports are provided separately, in subsequent sections. Lab Results This section contains the Chemistry/Hematology Results that were resulted 30 days before or 30 daysafter the date of the Encounter. Date/Time Source Result Type Result - Unit Interpretation Reference Range Comment Jul 17, 2023 07:35 AM [facility] [place] [facility] HEMOGLOBIN A1C PANEL Specimen Type: BLOOD Comment: Values obtained from A1C measurements can vary. For atypical A1C assays, a reported value of 7.0 could actually be between 6.72 and 7.28 if measured by a reference method. A reported value of 9.0 could actually be between 8.73 and 9.27. Ref: http://www.ngs p.org/CAPdata. asp Ordering Provider: AYUSH SEGURA Report Released Date/Time: Apr 28, 2023 03:05 PM Reporting Lab: [facility] [place] [facility] [address] [facility] [address] Performing Lab: [facility] [address] HEMOGLOBIN A1C 6.5 H 4.0-5.6 Jul 17, 2023 07:35 AM [facility] LIVER FUNCTION Specimen Type: SERUM No comment entered. Ordering Provider: AYUSH SEGURA F Report Released Date/Time: Apr 28, 2023 03:05 PM Reporting Lab: [facility] [address] [facility] [address] Performing Lab: [address] [address] PROTEIN,TOTAL 6.2 g/dL 6.0-8.3 ALBUMIN 3.7 g/dL 3.5-5.0 ALKALINE PHOSPHATASE 35 U/L L 40-150 AST 12 U/L 5-34 ALT 13 U/L BILIRUBIN, TOTAL 0.8 mg/dL 0.2-1.2 Jul 17, 2023 07:35 AM [facility] BASIC METABOLIC PANEL (fasting) Specimen Type: SERUM No comment entered. Ordering Provider: AYUSH SEGURA F Report Released Date/Time: Apr 28, 2023 03:05 PM Reporting Lab: [facility] [address] [facility] [address] Performing Lab: [address] [address] UREA NITROGEN 14 mg/dL 7-25 GLUCOSE 128 mg/dL H 65-100 SODIUM 142 mmol/L 135-145 POTASSIUM 3.9 mmol/L 3.5-5.0 CHLORIDE 107 mmol/L 100-110 CO2 24 meq/L 20-30 CREATININE, Serum 0.69 mg/dL 0.50-1.40 eGFR(CKD-EPI 2020) >90 mL/min >60 Jul 17, 2023 07:35 AM [facility] VITAMIN B12 Specimen Type: SERUM No comment entered. Ordering Provider: AYUSH SEGURA F Report Released Date/Time: Apr 28, 2023 03:05 PM Reporting Lab: [address] [address] Performing Lab: [address] [address] VITAMIN B12 643 pg/mL 200-900 Jul 17, 2023 07:35 AM [facility] MICROALBUMIN CREATININE RATIO PANEL Specimen Type: URINE No comment entered. Ordering Provider: AYUSH SEGURA Report Released Date/Time: Apr 28, 2023 03:05 PM Reporting Lab: [facility] [address] [facility] [address] Performing Lab: [facility] [address] [facility] [address] MICROALBUMIN/C REATININE RATIO 37.0 mg/g H 0-29.9 MICROALBUMIN,Q UANTITATIVE 3.4 mg/dL RR UNAVAIL CREATININE URINE 91.89 mg/dL Jul 17, 2023 07:35 AM [facility] LIPID PANEL FASTING Specimen Type: SERUM No comment entered. Ordering Provider: AYUSH SEGURA Report Released Date/Time: Apr 28, 2023 03:05 PM Reporting Lab: [facility] [address] [facility] [address] Performing Lab: [address] [address] CHOLESTEROL 118 mg/dL TRIGLYCERIDE 107 mg/dL 0-150 LDL calculated 58 mg/dL 0-129 CHOL/HDL 3.0 HDL CHOLESTEROL 39 mg/dL L 40-60 Social History: Smoking Status (Most current) and Tobacco Use (All prior to encounter date) This section includes the most current, and the historical, smoking and tobacco- related health factors from the PR facility where the Encounter took place. Current Smoking Status This section includes the most current smoking, or tobacco-related health factor, from the PR facility where the Encounter took place. Date/Time Current Smoking Status Comment Facil ity Mar 28, 2021 03:28 PM VA-TOBACCO FORMER USER [facility] Tobacco Use History This section includes a history of the smoking, or tobacco-related health factors, that were collected on or before the date of the Encounter. The data comes from the PR facility where the Encounter took place. Date/Time Smoking Status/Tobacco Use Comment F acility Mar 28, 2021 03:28 PM VA-TOBACCO QUIT 15 YRS OR MORE [facility] Dec 02, 2019 09:36 AM VA-TOBACCO NEVER USED [facility] Apr 23, 2005 10:19 AM QUIT TOBACCO USE IN PAST YEAR [facility] Advance Directives: All historical and current Section Date Range: From patient's date of to the date document was created. This section includes ALL of a patient's completed or amended [place] Advance and Rescinded Directives. The entries below indicate that a directive exists for the patient, but an actual copy is not included with this document. The data comes from all [place] facilities. Date Advance Directives Provider Source Dec 16, 2011 ADVANCE DIRECTIVE DISCUSSION MKJOSEFCARLOS PEPE Tereso [place] Encounter Notes: All associated encounter notes This section contains the clinical notes associated to the Encounter. 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 OT Treatment Precautions: Patient identified by full name and date of Received fax from [place] orthopedic Surgeon, Dr Rausch, for PT evaluation and treatment for left shoulder instability. Special instructions: passive/active ROM and gentle therabands. DOS: 02/08/2024 21 weeks post-op SUBJECTIVE: Pt reports that his shoulder is sore. He didn't push his exercises and felt a couple of twinges. It was sore this morning. He saw Dr. Rausch yesterday and he felt everything looked good. Pain Level: 07/26 OBJECTIVE: AROM: Shoulder: [R] [L] 07/04: [L] Flexion: WNL 99* 120 Abduction: WNL 76* 84 IR: WNL L4 L4 ER: WNL C5 C7 THERAPEUTIC EXERCISE: *UBE 2' forward, 2' backward 1.0 *hiram into flexion, w/ 10 second hold on L, x10 *wall slides into flexion, 1x10 *reactive iso's w/ green band, IR, 2x10 *reactive iso's w/ green band, ER, 2x10 *shoulder rows w/ blue band, 2x10 ADDED: *wall walk into abduction, 32x5 *wall slides into abduction, 1x10 *sh ER w/ green band, 2x10 Access Code: [email or web address] URL: [email or web address] Date: 07/04/2023 Prepared by: [facility] Exercises - Shoulder Flexion Wall Slide with Towel - 1 x daily - 7 x weekly - 3 sets - 10 reps - Supine Shoulder Flexion AAROM with Dowel - 1 x daily - 7 x weekly - 3 sets - 10 reps - Supine Shoulder Press - 1 x daily - 7 x weekly - 3 sets - 10 reps - Standing Shoulder Flexion to 90 Degrees - 1 x daily - 7 x weekly - 3 sets - 10 reps - Shoulder Internal Rotation Reactive Isometrics - 1 x daily - 7 x weekly - 3 sets - 10 reps - Standing Bilateral Low Shoulder Row with Anchored Resistance - 1 x daily - 7 x weekly - 3 sets - 10 reps - Standing Shoulder Abduction Finger Walk at Wall - 1 x daily - 7 x weekly - 3 sets - 10 reps - Standing Shoulder Abduction Slides at Wall - 1 x daily - 7 x weekly - 3 sets - 10 reps - Shoulder External Rotation with Anchored Resistance - 1 x daily - 7 x weekly - 3 sets - 10 reps MINUTES: 18 MANUAL THERAPY: *mobilization to anterior shoulder musculature, seated MINUTES: 8 THERAPEUTIC DYNAMIC ACTIVITIES: MINUTES: NEUROMUSCULAR EDUCATION: MINUTES: OTHER: MINUTES: MODALITIES: *MHP to L shoulder prior to tx MINUTES: 3 [] Contraindication screen completed prior to modality [] Skin intact pre/post SELF CARE/EDUCATION: MINUTES: Patient education was provided for all aspects of care during this clinical encounter. ASSESSMENT: pt tolerated tx well this date. he reports issues mostly w/ abduction; feels it is just stiff/weak. focused on adding wall slides and wall walk into abduction, which he tolerated well. he was also able to tolerate ER w/o iso's. w/ IR, he had moderate crepitation in the GH joint so this exercise was held. extreme tightness throughout anterior shoulder musculature; pt reported feeling improved following tx. PLAN: continue w/ OT POC; modify tx as needed. progress w/ HEP as tolerated. pt is in agreement w/ this POC. /lisa/ Deena Pike, MS OTR/Stewart, CHT Occupational Therapist Signed: 07/04/2023 13:49 DEENA PIKE [facility]
--- OUTSIDE RECORDS SUMMARY | 2024-05-10 07:25 | XMS_ITS | Encounter Summary ---
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 [place] Organization [facility] [place] [facility] [place] Address [address] [place] [address] Care Team Providers Care Cloth Washer Operator Name Role Phone CHITO SEGURA Primary Care [...] PART A Feb 16, 2018 PART A [id number] YENNY OVIEDO PATIENT MEDICARE (WNR) MEDICARE (M) PART B Feb 16, 2018 PART B [id number] [id number] YENNY OVIEDO ES PATIENT MEDICARE (WNR) MEDICARE (M) PART A Oct 17, 2006 PART A [id number] [facility] YENNY OVIEDO PATIENT FOR LIFE TFL* Apr 06, 2018 [id number] YENNY OVIEDO PATIENT Selected Encounter This section includes the information on record at [place] for the Encounter. Date/Time Encounter Type Encounter Description Reason Provider Source Jul 03, 2023 08:45 AM Outpatient Encounter PODIATRY NAVEEN WITT Ayah Encounter Template Text not used by [place] Plan of Treatment: Future Appointments (+ 6 months) and Future Tests (+/- 45 days) The Plan of Treatment section includes future care activities for the patient from all [place] [facility]. This section includes future appointments and future orders which are active, pending or scheduled. Future Appointments This section includes appointments that were scheduled to occur 6 months from the date of the Encounter, up to a maximum of 20 appointments. The data comes from all [place] treatment facilities. Appointment Date/Time Appointment Type Appointme nt Facility Name Jul 04, 2023 09:00 AM AMBULATORY - REH[facility] MEDICIN E [facility] [place] [facility] Jul 08, 2023 10:00 AM AMBULATORY - REHAB MEDICIN E [facility] [place] [facility] Jul 17, 2023 08:30 AM AMBULATORY - REHAB MEDICIN E [facility] [place] [facility] Jul 17, 2023 12:00 PM AMBULATORY - NONE [facility] [place] [facility] Jul 21, 2023 01:30 PM AMBULATORY - MEDICINE [facility] [place] [facility] Jul 24, 2023 08:30 AM AMBULATORY - REHAB MEDICIN E [facility] [place] [facility] Jul 31, 2023 08:30 AM AMBULATORY - REHAB MEDICIN E [facility] [place] [facility] Aug 04, 2023 08:00 AM [facility]ORY [facility] MEDICINE [facility] Aug 04, 2023 08:30 AM [facility]ORY [facility] MEDICINE [facility] Aug 06, 2023 09:00 AM AMBULATORY - REHAB MEDICIN E [facility] [place] [facility] Aug 20, 2023 08:30 AM AMBULATORY - REHAB MEDICIN E [facility] [place] [facility] Aug 26, 2023 09:00 AM AMBULATORY - REHAB MEDICIN E [facility] [place] [facility] Sep 01, 2023 09:00 AM AMBULATORY - REHAB MEDICIN E [facility] [place] [facility] Sep 09, 2023 08:00 AM AMBULATORY - MEDICINE [facility] [place] [facility] Sep 15, 2023 09:00 AM [facility] [place] [facility] September 22, 2023 09:00 AM [facility] [place] [facility] September 29, 2023 08:00 AM AMBULATORY - MEDICINE [facility] [place] September 29, 2023 08:30 AM AMBULATORY - MEDICINE [facility] [place] October 01, 2023 09:00 AM [facility] October 07, 2023 02:30 PM [facility] Lab Results: +/- 30 days of [...] Range Comment Jul 17, 2023 07:35 AM [facility] HEMOGLOBIN A1C PANEL Specimen Type: BLOOD [...] Apr 28, 2023 03:05 PM Reporting Lab: [address] [address] Performing Lab: [address] [address] HEMOGLOBIN A1C 6.5 H 4.0-5.6 Jul 17, 2023 07:35 AM [facility] BASIC METABOLIC PANEL (fasting) Specimen Type: SERUM No comment entered. Ordering Provider: AYUSH SEGURA F Report Released Date/Time: Apr 28, 2023 03:05 PM Reporting Lab: [address] [address] Performing Lab: [facility] [address] [facility] [address] UREA NITROGEN 14 mg/dL 7-25 GLUCOSE 128 mg/dL H 65-100 SODIUM 142 mmol/L 135-145 POTASSIUM 3.9 mmol/L 3.5-5.0 CHLORIDE 107 mmol/L 100-110 CO2 24 meq/L 20-30 CREATININE, Serum 0.69 mg/dL 0.50-1.40 eGFR(CKD-EPI 2020) >90 mL/min >60 Jul 17, 2023 07:35 AM [facility] LIVER FUNCTION Specimen Type: SERUM No comment entered. Ordering Provider: AYUSH SEGURA Report Released Date/Time: Apr 28, 2023 03:05 PM Reporting Lab: [address] [address] Performing Lab: [address] [address] PROTEIN,TOTAL 6.2 g/dL 6.0-8.3 ALBUMIN 3.7 g/dL 3.5-5.0 ALKALINE PHOSPHATASE 35 U/L L 40-150 AST 12 U/L 5-34 ALT 13 U/L BILIRUBIN, TOTAL 0.8 mg/dL 0.2-1.2 Jul 17, 2023 07:35 AM [facility] VITAMIN B12 Specimen Type: SERUM No comment entered. Ordering Provider: AYUSH SEGURA Report Released Date/Time: Apr 28, 2023 03:05 PM Reporting Lab: [address] [address] Performing Lab: [address] [address] VITAMIN B12 643 pg/mL 200-900 Jul 17, 2023 07:35 AM [facility] MICROALBUMIN CREATININE RATIO PANEL Specimen Type: URINE No comment entered. Ordering Provider: AYUSH SEGURA F Report Released Date/Time: Apr 28, 2023 03:05 PM Reporting Lab: [address] [place] [address] Performing Lab: [facility] [address] [facility] [address] MICROALBUMIN/C REATININE RATIO 37.0 mg/g H 0-29.9 MICROALBUMIN,Q UANTITATIVE 3.4 mg/dL RR UNAVAIL CREATININE URINE 91.89 mg/dL Jul 17, 2023 07:35 AM [facility] LIPID PANEL FASTING Specimen Type: SERUM No comment entered. Ordering Provider: AYUSH SEGURA Report Released Date/Time: Apr 28, 2023 03:05 PM Reporting Lab: [facility] [address] [facility] [address] Performing Lab: [facility] [address] [facility] [address] CHOLESTEROL 118 mg/dL TRIGLYCERIDE 107 mg/dL 0-150 [...] 28, 2021 03:28 PM VA-TOBACCO FORMER USER [facility] Tobacco Use History This section includes a history of the smoking, or tobacco-related health factors, that were collected on or before the date of the Encounter. The data comes from the [place] facility where the Encounter took place. Date/Time Smoking Status/Tobacco Use Comment F acility Mar 28, 2021 03:28 PM VA-TOBACCO QUIT 15 YRS OR MORE [facility] Dec 02, 2019 09:36 AM VA-TOBACCO NEVER USED [facility] Apr 23, 2005 10:19 AM QUIT TOBACCO USE IN PAST YEAR [facility] Advance Directives: All historical and current [...] 16, 2011 ADVANCE DIRECTIVE DISCUSSION MARGARITA TERRAZAS ROBERT Encounter Notes: All associated encounter notes This section contains the clinical notes associated to the Encounter. Date/Time Encounter Note(s) Provider Source Jul 03, 2023 08:45 AM PODIATRY SECURE ME SSAGING: [facility] TITLE: PODIATRY SECURE MESSAGING STANDARD TITLE: PODIATRY SECURE MESSAGING DATE OF NOTE: JUL 03, 2023@08:45 ENTRY DATE: JUL 03, 2023@08:45:58 AUTHOR: NAVEEN WITT EXP COSIGNER: URGENCY: STATUS: COMPLETED ------Original Message Sent: 07/03/2023 08:40 AM ET From: ANDREEA OVIEDO To: PODIATRY_SOPC@ Subject: Medication:Miconozole powder Could you please renew my prescription for miconazole powder. I have started on my last bottle. Thank you Andreea Oviedo /lisa/ NAVEEN WITT HEALTH DIESEL LOCOMOTIVE ENGINEER Signed: 07/03/2023 08:45 Receipt Acknowledged By: 07/03/2023 08:52 /lisa/ JUVENAL ROSS DPM TALENT ENGINEER NAVEEN WITT
--- OUTSIDE RECORDS SUMMARY | 2024-05-10 07:25 | XMS_ITS | Encounter Summary ---
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 Address [address] [place] [address] Care Team Providers Care Electronic Data Interchange Specialist Name Role Phone CHITO SEGURA Primary Care [...] PART A Feb 16, 2018 PART A [id number] YENNY OVIEDO PATIENT MEDICARE (WNR) MEDICARE (M) PART B Feb 16, 2018 PART B [id number] [phone] [id number] YENNY OVIEDO PATIENT MEDICARE (WNR) MEDICARE (M) PART A Oct 17, 2006 PART A [id number] [phone] [id number] YENNY OVIEDO PATIENT FOR LIFE TFL* Apr 06, 2018 [id number] YENNY OVIEDO PATIENT Selected Encounter This section includes the information on record at [place] for the Encounter. Date/Time Encounter Type Encounter Description Reason Pro vider Source Feb 01, 2024 12:00 AM Outpatient Encounter EVENT (HISTORICAL) IHE Encounter Template Text not used by [facility] Plan of Treatment: Future Appointments (+ 6 months) and Future Tests (+/- 45 days) The Plan of Treatment section includes future care activities for the patient from all [place] treatment[facility]. This section includes future appointments and future [...] 2024 08:00 AM AMBULATORY - MEDICINE [facility] Feb 17, 2024 07:30 AM AMBULATORY - NONE [facility] [place] [facility] Mar 16, 2024 09:30 AM AMBULATORY - NONE [facility] [place] [facility] Mar 30, 2024 07:30 AM AMBULATORY - MEDICINE [place] [facility] [place] [facility] Apr 06, 2024 09:00 AM AMBULATORY - MEDICINE [facility] Apr 12, 2024 08:00 AM AMBULATORY - MEDICINE [facility] Apr 12, 2024 11:00 AM AMBULATORY - MEDICINE [place] [facility] [place] [facility] Apr 12, 2024 01:30 PM AMBULATORY - MEDICINE [place] [facility] [place] [facility] Apr 30, 2024 01:40 PM AMBULATORY - NONE [facility] [place] [facility] May 28, 2024 08:30 AM AMBULATORY - MEDICINE [place] [facility] [place] [facility] May 31, 2024 11:00 AM AMBULATORY - MEDICINE [place] [facility] [place] [facility] Jun 01, 2024 07:30 AM AMBULATORY - NONE [facility] [place] [facility] Jun 28, 2024 08:00 AM AMBULATORY - MEDICINE [facility] Lab Results: +/- 30 days of [...] Provider: AYUSH SEGURA F Report Released Date/Time: Feb 23, 2024 02:44 PM Reporting Lab: [facility] [address] [facility] [address] Performing Lab: [address] [address] CREATININE, Serum 0.84 mg/dL 0.50-1.40 eGFR(CKD-EPI 2020) >90 mL/min >60 Feb 27, 2024 07:43 AM [facility] LIVER FUNCTION Specimen Type: SERUM No comment entered. Ordering Provider: AYUSH SEGURA F Report Released Date/Time: Feb 23, 2024 02:44 PM Reporting Lab: [address] [address] Performing Lab: [address] [address] PROTEIN,TOTAL 6.3 g/dL 6.0-8.3 ALBUMIN 3.5 g/dL 3.5-5.0 ALKALINE PHOSPHATASE 45 U/L 40-150 AST 19 U/L 5-34 ALT 23 U/L BILIRUBIN, TOTAL 0.6 mg/dL 0.2-1.2 Feb 27, 2024 07:43 AM [facility] PT & INR (COUMADIN) Specimen Type: PLASMA No comment entered. Ordering Provider: AYUSH SEGURA F Report Released Date/Time: Feb 23, 2024 02:44 PM Reporting Lab: [address] [address] Performing Lab: [address] [address] INR 1.4 PROTIME 15.4 s H 10.0-13.1 Feb 27, 2024 07:43 AM [facility] CBC Specimen Type: BLOOD No comment entered. Ordering Provider: AYUSH SEGURA F Report Released Date/Time: Feb 23, 2024 02:44 PM Reporting Lab: [facility] [address] [facility] [address] Performing Lab: [address] [address] WBC 6.44 10*3/uL 4.50-11.00 RBC 4.42 10*6/uL 4.23-5.66 HGB 13.1 g/dL 12.8-17 HCT 38.8 L 39.2-50.4 MCV 87.8 fL 82-99 MCHC 33.8 g/dL 30.8-35.1 PLT 116 10*3/uL L 140-360 RDW-CV 14.6 12.0-16.0 MCH 29.6 pg 26.2-32.6 Jan 05, 2024 07:32 AM [facility] LIVER FUNCTION Specimen Type: SERUM No comment entered. Ordering Provider: AYUSH SEGURA F Report Released Date/Time: Jul 21, 2023 02:25 PM Reporting Lab: [address] [address] Performing Lab: [address] [address] PROTEIN,TOTAL 6.3 g/dL 6.0-8.3 ALBUMIN 3.6 g/dL 3.5-5.0 ALKALINE PHOSPHATASE 39 U/L L 40-150 AST 13 U/L 5-34 ALT 15 U/L BILIRUBIN, TOTAL 1.0 mg/dL 0.2-1.2 Jan 05, 2024 07:32 AM [facility] BASIC METABOLIC PANEL (fasting) Specimen Type: SERUM No comment entered. Ordering Provider: AYUSH SEGURA F Report Released Date/Time: Jul 21, 2023 02:25 PM Reporting Lab: [address] [address] Performing Lab: [address] [address] UREA NITROGEN 21 mg/dL 7-25 GLUCOSE 126 mg/dL H 65-100 SODIUM 139 mmol/L 135-145 POTASSIUM 3.9 mmol/L 3.5-5.0 CHLORIDE 107 mmol/L 100-110 CO2 22 meq/L 20-30 CREATININE, Serum 0.68 mg/dL 0.50-1.40 eGFR(CKD-EPI 2020) >90 mL/min >60 Jan 05, 2024 07:32 AM [facility] LIPID PANEL FASTING Specimen Type: SERUM No comment entered. Ordering Provider: AYUSH SEGURA F Report Released Date/Time: Jul 21, 2023 02:25 PM Reporting Lab: [facility] [address] [facility] [address] Performing Lab: [facility] [address] [address] CHOLESTEROL 116 mg/dL TRIGLYCERIDE 73 mg/dL 0-150 LDL calculated 62 mg/dL 0-129 CHOL/HDL 3.0 HDL CHOLESTEROL 39 mg/dL L 40-60 Jan 05, 2024 07:32 AM [facility] MICROALBUMIN CREATININE RATIO PANEL Specimen Type: URINE No comment entered. Ordering Provider: AYUSH SEGUAR F Report Released Date/Time: Jul 21, 2023 02:25 PM Reporting Lab: [facility] [address] [facility] [address] Performing Lab: [facility] [address] [facility] [address] MICROALBUMIN/C REATININE RATIO 45.9 mg/g H 0-29.9 MICROALBUMIN,Q UANTITATIVE 5.0 mg/dL RR UNAVAIL CREATININE URINE 108.91 mg/dL Jan 05, 2024 07:32 AM [facility] PSA Specimen Type: SERUM No comment entered. Ordering Provider: AYUSH SEGURA F Report Released Date/Time: Jul 21, 2023 02:25 PM Reporting Lab: [facility] [address] [address] Performing Lab: [facility] [address] PSA < 0.10 ng/mL 0.00-4.00 Jan 05, 2024 07:32 AM [facility] HEMOGLOBIN A1C PANEL Specimen Type: BLOOD [...] Jul 21, 2023 02:25 PM Reporting Lab: [address] [address] Performing Lab: [address] [address] HEMOGLOBIN A1C 6.1 H 4.0-5.6 Jan 05, 2024 07:32 AM [facility] URINALYSIS Specimen Type: URINE Comment: If Glucose = >500 and Ketones are positive, please alert the Physician. Ordering Provider: AYUSH SEGURA Report Released Date/Time: Jul 21, 2023 02:25 PM Reporting Lab: [address] [address] Performing Lab: [address] [address] UA COLOR Yellow Yellow UA APPEARANCE Clear [...] place. Date/Time Current Smoking Status Comment Facil caleb Jul 21, 2023 01:30 PM [facility]-TOBACCO [facility] Tobacco Use History This section includes a history of the smoking, or tobacco-related health factors, that were collected on or before the date of the Encounter. The data comes from the [place] facility where the Encounter took place. Date/Time Smoking Status/Tobacco Use Comment F acsophia Jul 21, 2023 01:30 PM VA-TOBACCO QUIT 15 YRS OR MORE [facility] Mar 28, 2021 03:28 PM VA-TOBACCO FORMER USER [place] [facility] [place] [facility] Mar 28, 2021 03:28 PM VA-TOBACCO QUIT 15 YRS OR MORE [place] [facility] Dec 02, 2019 09:36 AM VA-TOBACCO NEVER USED [place] [facility] [facility] Apr 23, 2005 10:19 AM QUIT TOBACCO USE IN PAST YEAR [facility] Advance Directives: All historical and current Section Date Range: From patient's date of to the date document was created. This section includes ALL of a patient's completed or amended [place] Advance and Rescinded Directives. The entries below indicate that a directive exists for the patient, but an actual copy is not included with this document. The data comes from all [place] facilities. Date Advance Directives Provider Source Dec 16, 2011 ADVANCE DIRECTIVE DISCUSSION MARGARITA TERRAZAS [place] Encounter Notes: All associated encounter notes This section contains the clinical notes associated to the Encounter. Date/Time Encounter Note(s) Provider Source Feb 01, 2024 12:00 AM NONVA NOTE: LOCAL TITLE: NON-VA HOSPITALIZATIONS/ER STANDARD TITLE: NONVA NOTE DATE OF NOTE: FEB 01, 2024 ENTRY DATE: MAR 04, 2024@15:16:01 AUTHOR: PRIMO HADDAD EXP COSIGNER: URGENCY: STATUS: COMPLETED VistA Imaging - Scanned Document SCANNED DOCUMENT SIGNATURE NOT REQUIRED Electronically Filed: 03/04/2024 by: PRIMO ORTEGA [facility]
--- OUTSIDE RECORDS SUMMARY | 2024-05-10 07:25 | XMS_ITS | Encounter Summary ---
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 Address [address] [place] [id number] Care Team Providers Care Logging Tractor Operator Name Role Phone CHITO SEGURA Primary [...] Member ID Insurance Provider's Telephone Number Policy Santacurz's Name Patient's Relationship to Policy Santacruz MEDICARE (WNR) MEDICARE (M) PART A Feb 16, 2018 PART A [id number] YENNY OVIEDO ANDREW PATIENT MEDICARE (WNR) MEDICARE (M) PART B Feb 16, 2018 PART B [id number] YENNY OVIEDO ES PATIENT MEDICARE (WNR) MEDICARE (M) PART A Oct 17, 2006 PART A [id number] [facility] YENNY OVIEDO PATIENT FOR LIFE TFL* Apr 06, 2018 [id number] YENNY OVIEDO PATIENT Selected Encounter This section includes the information on record at [place] for the Encounter. Date/Time Encounter Type Encounter Description Reason Provider Source Mar 16, 2024 09:30 AM BRIEF ASSESSMENT DENTAL ICD-10-CM K03.81 Cracked tooth HOHREITER,VINC ENT IHE Encounter Template Text not used by [place] Assessments - Encounter Diagnoses This section includes the primary and secondary diagnoses documented for the Encounter. Date/Time Primary/Secondary Diagnosis Diagnosis Name Provider Source Mar 16, 2024 10:22 AM PRIMARY Cracked tooth HOHREITER,VINC ENT [place] [facility] [place] [facility] Plan of Treatment: Future Appointments (+ 6 months) and Future Tests (+/- 45 days) The Plan of Treatment section includes future care activities for the patient from all [place] [facility]. This section includes future appointments and future orders which are active, pending or scheduled. Future Appointments This section includes appointments that were scheduled to occur 6 months from the date of the Encounter, up to a maximum of 20 appointments. The data comes from all [place] treatment [facility]. Appointment Date/Time Appointment Type Appointme nt Facility Name Mar 30, 2024 07:30 AM AMBULATORY - MEDICINE [place] [facility] [place] [facility] Apr 06, 2024 09:00 AM AMBULATORY - MEDICINE [facility] Apr 12, 2024 08:00 AM AMBULATORY - MEDICINE [facility] Apr 12, 2024 11:00 AM AMBULATORY - MEDICINE [place] [facility] [facility] Apr 12, 2024 01:30 PM AMBULATORY - MEDICINE [place] [facility] [facility] Apr 30, 2024 01:40 PM AMBULATORY - NONE [place] [facility] [place] [facility] May 28, 2024 08:30 AM AMBULATORY - MEDICINE [place] [facility] [place] [facility] May 31, 2024 11:00 AM AMBULATORY - MEDICINE [place] [facility] [place] [facility] Jun 01, 2024 07:30 AM AMBULATORY - NONE [place] [facility] [place] [facility] Jun 28, 2024 08:00 AM [facility] Aug 23, 2024 08:00 AM [facility] Active, Pending, and Scheduled Orders This section includes a listing of several types of active, pending, and scheduled orders, including clinic medications orders, diagnostic test orders, procedure orders and consult orders; where the start date of the order is 45 days before the date of the Encounter or 45 days after the date of theEncounter. The data comes from all [place] treatment facilities. Test Date/Time Test Type Test Details Facility Name Apr 15, 2024 07:42 AM Consult Order COMMUNITY CARE-CARDIAC SURGERY Cons Gas Distribution Supervisor's Choice [facility] Lab Results: +/- 30 days of the encounter This section includes the Chemistry and Hematology Lab Results on record with [place] for the patient. Radiology Reports and Pathology Reports are provided separately, in subsequent sections. Lab Results This section contains the Chemistry/Hematology Results that were resulted 30 days before or 30 daysafter the date of the Encounter. Date/Time Source Result Type Result - Unit Interpretation Reference Range Comment Feb 27, 2024 07:43 AM [facility] CREATININE (eGFR 2020) Specimen Type: SERUM No comment entered. Ordering Provider: ELIEL SEGURA Report Released Date/Time: Feb 23, 2024 02:44 PM Reporting Lab: [address] [address] Performing Lab: [address] [address] CREATININE, Serum 0.84 mg/dL 0.50-1.40 eGFR(CKD-EPI 2020) >90 mL/min >60 Feb 27, 2024 07:43 AM [facility] PT & INR (COUMADIN) Specimen Type: PLASMA No comment entered. Ordering Provider: ELIEL SEGURA Report Released Date/Time: Feb 23, 2024 02:44 PM Reporting Lab: [facility] [address] Performing Lab: [address] [address] INR 1.4 PROTIME 15.4 s H 10.0-13.1 Feb 27, 2024 07:43 AM [facility] LIVER FUNCTION Specimen Type: SERUM No comment entered. Ordering Provider: ELIEL SEGURA Report Released Date/Time: Feb 23, 2024 02:44 PM Reporting Lab: [address] [address] Performing Lab: [facility] [address] [facility] [address] PROTEIN,TOTAL 6.3 g/dL 6.0-8.3 ALBUMIN 3.5 g/dL 3.5-5.0 ALKALINE PHOSPHATASE 45 U/L 40-150 AST 19 U/L 5-34 ALT 23 U/L BILIRUBIN, TOTAL 0.6 mg/dL 0.2-1.2 Feb 27, 2024 07:43 AM [facility] CBC Specimen Type: BLOOD No comment entered. Ordering Provider: ELIEL SEGURA Report Released Date/Time: Feb 23, 2024 02:44 PM Reporting Lab: [facility] [address] [facility] [address] Performing Lab: [address] [address] WBC 6.44 10*3/uL 4.50-11.00 RBC 4.42 10*6/uL [...] and tobacco- related health factors from the [place] facility where the Encounter took place. Current Smoking Status This section includes the most current smoking, or tobacco-related health factor, from the [place] facility where the Encounter took place. Date/Time Current Smoking Status Comment Facil ity Jul 21, 2023 01:30 PM VA-TOBACCO FORMER USER [facility] Tobacco Use History This section includes a history of the smoking, or tobacco-related health factors, that were collected on or before the date of the Encounter. The data comes from the [place] facility where the Encounter took place. Date/Time Smoking Status/Tobacco Use Comment F acility Jul 21, 2023 01:30 PM [facility]-TOBACCO [facility] [place] [facility] Mar 28, 2021 03:28 PM VA-TOBACCO FORMER USER [place] [facility] [place] [facility] Mar 28, 2021 03:28 PM VA-TOBACCO QUIT 15 YRS OR MORE [place] [facility] [place] [facility] Dec 02, 2019 09:36 AM [facility]-TOBACCO [facility] Apr 23, 2005 10:19 AM QUIT TOBACCO USE IN PAST YEAR [facility] Advance Directives: All historical and current Section Date Range: From patient's date of to the date document was created. This section includes ALL of a patient's completed or amended [place] Advance and Rescinded Directives. The entries below indicate that a directive exists for the patient, but an actual copy is not included with this document. The data comes from all [place] facilities. Date Advance Directives Provider Source Dec 16, 2011 ADVANCE DIRECTIVE DISCUSSION MARGARITA TERRAZAS [place] [place] Encounter Notes: All associated encounter notes This section contains the clinical notes associated to the Encounter. Date/Time Encounter Note(s) Provider Source Mar 16, 2024 10:21 AM DENTISTRY NOTE: LOCAL TITLE: DENTAL NOTE STANDARD TITLE: DENTISTRY NOTE DATE OF NOTE: MAR 16, 2024@10:21 ENTRY DATE: MAR 16, 2024@10:22:54 AUTHOR: VIKI KELLEY COSIGNER: URGENCY: STATUS: COMPLETED Patient Name: ANDREEA OVIEDO, : 1955, Age: 69 Visit: S: Mar 16, 2024@09:30 [facility] DENTAL DMD 2. Primary PCE Diagnosis: K03.81 (Cracked tooth). Dental Category: 15-OPC, Class IV. Treatment Status: Maintenance. Completed Care: (D2335) RESIN 4/> SURF OR W INCIS AN. Tooth: 7. Surface(s): MIFL. DX: K03.81 Cracked Tooth (D2335) RESIN 4/> SURF OR W INCIS AN. Tooth: 10. Surface(s): MIFL. DX: K03.81 Cracked Tooth (D0191) BRIEF ASSESSMENT. DX: K03.81 Cracked Tooth Dental Alerts: Had heart valve replacement on Apr 30, 2017. [facility] Cardiac Surgery requires premedication one hour before dental procedures. 500 mg Azithromycin per current AHA guidelines. In the past he premedicated with 600 mg Clindamycin. - - - - - - - - - - - - - - - - - - - - - - - - - - - - - - Patient presented to dental clinic for congregation of 7,10 Brief assessment reveals incisal chipping/cracking on 7,10 TIME OUT/Safety goals (correct patient, procedure, site, position) were verified immediately prior to the procedure. Full name and last-4-SSN used. Checked and confirmed sterilization monitors in instrument packs. Medical history reviewed. All VA & non-VA medications reconciled within the scope of dental. Reviewed findings, treatment plan, risks, benefits, and possible complications requiring other treatment. Patient understood and agreed to treatment plan. Answered all questions. Anesthetic: none required Tx: Smoothed preparations, restored with composite (A3). Adjusted margins, contacts, and occlusion. Patient advised: -Possible temporary sensitivity, soreness -May need future root canal/crown/extraction -May fracture in the future -Importance of oral hygiene -Call if there are any concerns. NV: Prophylaxis /es/ VIKI KELLEY DMD DENTIST Signed: 03/16/2024 10:22 VIKI KELLEY CNTRL [facility]
--- OUTSIDE RECORDS SUMMARY | 2024-05-10 07:25 | XMS_ITS | Encounter Summary ---
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 [place] [facility] [place] Address [address] [place] [id number] Care Team Providers Care Labor Relations Officer Name Role Phone CHITO SEGURA Primary Care [...] PART A Feb 16, 2018 PART A [id number] YENNY OVIEDO PATIENT MEDICARE (WNR) MEDICARE (M) PART B Feb 16, 2018 PART B [id number] YENNY OVIEDO ES PATIENT MEDICARE (WNR) MEDICARE (M) PART A Oct 17, 2006 PART A [id number] YENNY OVIEDO PATIENT FOR LIFE TFL* Apr 06, 2018 [id number] YENNY OVIEDO PATIENT Selected Encounter This section includes the information on record at NH for the Encounter. Date/Time Encounter Type Encounter Description Reason Pro vider Source Dec 30, 2023 12:00 PM Outpatient Encounter COMMUNITY CARE CONSULT IHE Encounter Template Text not used by NH Plan of Treatment: Future Appointments (+ 6 months) and Future Tests (+/- 45 days) The Plan of Treatment section includes future care activities for the [facility] This section includes future appointments and future orders which are active, pending or scheduled. Future Appointments This section includes appointments that were scheduled to occur 6 months from the date of the Encounter, up to a maximum of 20 appointments. The data comes from all [place] treatment facilities. Appointment Date/Time Appointment Type Appointme nt Facility Name Jan 12, 2024 11:25 AM [facility] [place] [facility] Jan 12, 2024 11:40 AM [facility] [place] [facility] Jan 22, 2024 01:00 PM [facility]UL[facility] [place] [facility] Jan 29, 2024 08:45 AM [facility] [place] [facility] Feb 16, 2024 08:00 AM [facility] Feb 17, 2024 07:30 AM [facility]ULATORY - NONE [facility] [place] [facility] Mar 16, 2024 09:30 AM [facility]ULATORY - NONE [facility] [place] [facility] Mar 30, 2024 07:30 AM [facility] [place] [facility] Apr 06, 2024 09:00 AM [facility] [place] [facility] [facility] [place] Apr 12, 2024 08:00 AM [facility] [place] Apr 12, 2024 11:00 AM [facility] [place] [facility] Apr 12, 2024 01:30 PM [facility] [place] [facility] Apr 30, 2024 01:40 PM AMBULATORY - NONE [facility] [place] [facility] May 28, 2024 08:30 AM [facility] [place] [facility] May 31, 2024 11:00 AM [facility] [place] [facility] Jun 01, 2024 07:30 AM AMBULATORY - NONE [facility] [place] [facility] Jun 28, 2024 08:00 AM [facility] Lab Results: +/- 30 days of the encounter This section includes the Chemistry and Hematology Lab Results on record with NH for the patient. Radiology Reports and Pathology Reports are provided separately, in subsequent sections. Lab Results This section contains the Chemistry/Hematology Results that were resulted 30 days before or 30 daysafter the date of the Encounter. Date/Time Source Result Type Result - Unit Interpretation Reference Range Comment Jan 05, 2024 07:32 AM [facility] LIVER FUNCTION Specimen Type: SERUM No comment entered. Ordering Provider: AYUSH SEGURA F Report Released Date/Time: Jul 21, 2023 02:25 PM Reporting Lab: [address] [address] Performing Lab: [address] [address] PROTEIN,TOTAL 6.3 g/dL 6.0-8.3 ALBUMIN 3.6 g/dL 3.5-5.0 ALKALINE PHOSPHATASE 39 U/L L 40-150 AST 13 U/L 5-34 ALT 15 U/L BILIRUBIN, TOTAL 1.0 mg/dL 0.2-1.2 Jan 05, 2024 07:32 AM [facility] BASIC METABOLIC PANEL (fasting) Specimen Type: SERUM No comment entered. Ordering Provider: AYUSH SEGURA Report Released Date/Time: Jul 21, 2023 02:25 PM Reporting Lab: [address] [address] Performing Lab: [address] [address] UREA NITROGEN 21 mg/dL 7-25 GLUCOSE 126 mg/dL H 65-100 SODIUM 139 mmol/L 135-145 POTASSIUM 3.9 mmol/L 3.5-5.0 CHLORIDE 107 mmol/L 100-110 CO2 22 meq/L 20-30 CREATININE, Serum 0.68 mg/dL 0.50-1.40 eGFR(CKD-EPI 2020) >90 mL/min >60 Jan 05, 2024 07:32 AM [facility] LIPID PANEL FASTING Specimen Type: SERUM No comment entered. Ordering Provider: AYUSH SEGURA F Report Released Date/Time: Jul 21, 2023 02:25 PM Reporting Lab: [facility] [address] [facility] [address] Performing Lab: [facility] [address] [facility] [address] CHOLESTEROL 116 mg/dL TRIGLYCERIDE 73 mg/dL 0-150 LDL calculated 62 mg/dL 0-129 CHOL/HDL 3.0 HDL CHOLESTEROL 39 mg/dL L 40-60 Jan 05, 2024 07:32 AM [facility] MICROALBUMIN CREATININE RATIO PANEL Specimen Type: URINE No comment entered. Ordering Provider: AYUSH SEGURA F Report Released Date/Time: Jul 21, 2023 02:25 PM Reporting Lab: [facility] [address] [facility] [address] Performing Lab: [address] [address] MICROALBUMIN/C REATININE RATIO 45.9 mg/g H 0-29.9 MICROALBUMIN,Q UANTITATIVE 5.0 mg/dL RR UNAVAIL CREATININE URINE 108.91 mg/dL Jan 05, 2024 07:32 AM [facility] PSA Specimen Type: SERUM No comment entered. Ordering Provider: AYUSH SEGURA F Report Released Date/Time: Jul 21, 2023 02:25 PM Reporting Lab: [address] [address] Performing Lab: [address] [address] PSA < 0.10 ng/mL 0.00-4.00 Jan 05, 2024 07:32 AM [facility] HEMOGLOBIN A1C PANEL Specimen Type: BLOOD [...] Jul 21, 2023 02:25 PM Reporting Lab: [address] [address] Performing Lab: [address] [address] HEMOGLOBIN A1C 6.1 H 4.0-5.6 Jan 05, 2024 07:32 AM [facility] URINALYSIS Specimen Type: URINE Comment: If Glucose = >500 and Ketones are positive, please alert the Physician. Ordering Provider: AYUSH SEGURA F Report Released Date/Time: Jul 21, 2023 02:25 PM Reporting Lab: [address] [address] Performing Lab: [address] [address] UA COLOR Yellow Yellow UA APPEARANCE Clear [...] and tobacco- related health factors from the [place] facility where the Encounter took place. Current Smoking Status This section includes the most current smoking, or tobacco-related health factor, from the NH facility where the Encounter took place. Date/Time Current Smoking Status Comment Facil ity Jul 21, 2023 01:30 PM VA-TOBACCO FORMER USER [facility] Tobacco Use History This section includes a history of the smoking, or tobacco-related health factors, that were collected on or before the date of the Encounter. The data comes from the [place] facility where the Encounter took place. Date/Time Smoking Status/Tobacco Use Comment F acility Jul 21, 2023 01:30 PM VA-TOBACCO QUIT 15 YRS OR MORE [facility] [place] [facility] Mar 28, 2021 03:28 PM [facility] Mar 28, 2021 03:28 PM VA-TOBACCO QUIT 15 YRS OR MORE [facility] Dec 02, 2019 09:36 AM [facility]ACCO [facility] Apr 23, 2005 10:19 AM QUIT TOBACCO USE IN PAST YEAR [facility] Advance Directives: All historical and current Section Date Range: From patient's date of to the date document was created. This section includes ALL of a patient's completed or amended [place] Advance and Rescinded Directives. The entries below indicate that a directive exists for the patient, but an actual copy is not included with this document. The data comes from all [place] facilities. Date Advance Directives Provider Source Dec 16, 2011 ADVANCE DIRECTIVE DISCUSSION MARGARITA TERRAZAS CRANE Encounter Notes: All associated encounter notes This section contains the clinical notes associated to the Encounter. Date/Time Encounter Note(s) Provider Source Dec 30, 2023 12:00 PM NONVA CONSULT: LOCAL TITLE: COMMUNITY CARE-CONSULT RESULT NOTE STANDARD TITLE: NONVA CONSULT DATE OF NOTE: DEC 30, 2023@12:00 ENTRY DATE: MAR 15, 2024@14:02:38 AUTHOR: MINNIE MEDEIROS EXP COSIGNER: URGENCY: STATUS: COMPLETED VistA Imaging - Scanned Document [facility] CARDIO-OFFICE NOTES 12/29+02/10 SCANNED DOCUMENT SIGNATURE NOT REQUIRED Electronically Filed: 03/15/2024 by: MINNIE MEDEIROS GRAPHICS MANAGER MINNIE MEDEIROS [facility]
--- OUTSIDE RECORDS SUMMARY | 2024-05-10 07:25 | XMS_ITS | Encounter Summary ---
Author Name [facility] [place] [facility] [place] Address [address] [place] [address] Care Team Providers Care Station Cashier Name Role Phone CHITO SEGURA Primary Care [...] PART A Feb 16, 2018 PART A [id number] YENNY OVIEDO PATIENT MEDICARE (WNR) MEDICARE (M) PART B Feb 16, 2018 PART B [id number] YENNY OVIDEO ES PATIENT MEDICARE (WNR) MEDICARE (M) PART A Oct 17, 2006 PART A [id number] [facility] YENNY OVIEDO PATIENT FOR LIFE TFL* Apr 06, 2018 [id number] YENNY OVIEDO PATIENT Selected Encounter This section includes the information on record at [place] for the Encounter. Date/Time Encounter Type Encounter Description Reason Provider Source Feb 27, 2024 11:47 AM MTMS BY PHARM HAND MOLDER 15 MIN TELEPHONE/DMITRI MELARA ICD-10-CM Z51.81 Encounter for therapeutic drug level monitoring [facility]OOKE F IHE Encounter Template Text not used by [place] Assessments - Encounter Diagnoses This section includes the primary and secondary diagnoses documented for the Encounter. Date/Time Primary/Secondary Diagnosis Diagnosis Name Provider Source Feb 27, 2024 11:47 AM PRIMARY Encounter for therapeutic drug level monitoring STEFANY JUNG [facility] ([id number]) Feb 27, 2024 11:47 AM SECONDARY termination clerk (current) use of anticoagulants ERICHSTEFANY [facility] ([id number]) Plan of Treatment: Future Appointments (+ 6 months) and Future Tests (+/- 45 days) The Plan of Treatment section includes future care activities for the [facility] [place] [facility] This section includes future appointments and future orders which are active, pending or scheduled. Future Appointments This section includes appointments that were scheduled to occur 6 months from the date of the Encounter, up to a maximum of 20 appointments. The data comes from all [place] treatment facilities. Appointment Date/Time Appointment Type Appointme nt Facility Name Mar 16, 2024 09:30 AM AM[facility]ULATORY - NONE [facility] [place] [facility] Mar 30, 2024 07:30 AM AM[facility]ULATORY - [facility]ICINE [facility] [place] [facility] Apr 06, 2024 09:00 AM [facility] Apr 12, 2024 08:00 AM [facility] Apr 12, 2024 11:00 AM [facility] - MEDICINE [facility] [place] [facility] Apr 12, 2024 01:30 PM AMBULATORY - MEDICINE [facility] [place] [facility] Apr 30, 2024 01:40 PM AMBULATORY - NONE [facility] [place] [facility] May 28, 2024 08:30 AM AMBULATORY - MEDICINE [facility] [place] [facility] May 31, 2024 11:00 AM AMBULATORY - MEDICINE [facility] [place] [facility] Jun 01, 2024 07:30 AM AMBULATORY - NONE [facility] [place] [facility] Jun 28, 2024 08:00 AM [facility]ORY - MEDICINE [facility] Aug 23, 2024 08:00 AM AMBULATORY - MEDICINE [facility] Lab Results: +/- 30 days of the encounter This section includes the Chemistry and Hematology Lab Results on record with [place] for the patient. Radiology Reports and Pathology Reports are provided separately, in subsequent sections. Lab Results This section contains the Chemistry/Hematology Results that were resulted 30 days before or 30 daysafter the date of the Encounter. Date/Time Source Result Type Result - Unit Interpretation Reference Range Comment Feb 27, 2024 07:43 AM [facility] CREATININE (eGFR 2020) Specimen Type: SERUM No comment entered. Ordering Provider: ELIEL SEGURA Report Released Date/Time: Feb 23, 2024 02:44 PM Reporting Lab: [address] [address] Performing Lab: [address] [address] CREATININE, Serum 0.84 mg/dL 0.50-1.40 eGFR(CKD-EPI 2020) >90 mL/min >60 Feb 27, 2024 07:43 AM [facility] PT & INR (COUMADIN) Specimen Type: PLASMA No comment entered. Ordering Provider: ELIEL SEGURA Report Released Date/Time: Feb 23, 2024 02:44 PM Reporting Lab: [address] [address] Performing Lab: [address] [address] INR 1.4 PROTIME 15.4 s H 10.0-13.1 Feb 27, 2024 07:43 AM [facility] LIVER FUNCTION Specimen Type: SERUM No comment entered. Ordering Provider: ELIEL SEGURA Report Released Date/Time: Feb 23, 2024 02:44 PM Reporting Lab: [address] [address] Performing Lab: [address] [address] PROTEIN,TOTAL 6.3 g/dL 6.0-8.3 ALBUMIN 3.5 g/dL 3.5-5.0 ALKALINE PHOSPHATASE 45 U/L 40-150 AST 19 U/L 5-34 ALT 23 U/L BILIRUBIN, TOTAL 0.6 mg/dL 0.2-1.2 Feb 27, 2024 07:43 AM [facility] CBC Specimen Type: BLOOD No comment entered. Ordering Provider: ELIEL SEGURA Report Released Date/Time: Feb 23, 2024 02:44 PM Reporting Lab: [facility] [address] [facility] [address] Performing Lab: [facility] [address] [facility] [facility] [facility] [address] WBC 6.44 10*3/uL 4.50-11.00 RBC 4.42 10*6/uL 4.23-5.66 HGB 13.1 g/dL 12.8-17 HCT 38.8 L 39.2-50.4 MCV 87.8 fL 82-99 MCHC 33.8 g/dL 30.8-35.1 PLT 116 10*3/uL L 140-360 RDW-CV 14.6 12.0-16.0 MCH 29.6 pg 26.2-32.6 Advance Directives: All historical and current Section Date Range: From patient's date of to the date document was created. This section includes ALL of a patient's completed or amended [place] Advance and Rescinded Directives. The entries below indicate that a directive exists for the patient, but an actual copy is not included with this document. The data comes from all [place] facilities. Date Advance Directives Provider Source Dec 16, 2011 ADVANCE DIRECTIVE DISCUSSION MARGARITA TERRAZAS MASTERSON Encounter Notes: All associated encounter notes This section contains the clinical notes associated to the Encounter. Date/Time Encounter Note(s) Provider Source Feb 27, 2024 11:47 AM PHARMACY MEDICATION MGT CONSULT: LOCAL TITLE: CONSULT REPORT/ANTICOAGULATION CLINIC STANDARD TITLE: PHARMACY MEDICATION MGT CONSULT DATE OF NOTE: FEB 27, 2024@11:47 ENTRY DATE: FEB 27, 2024@11:47:11 AUTHOR: NINO JUNG EXP COSIGNER: URGENCY: STATUS: COMPLETED Reason for visit: Initial Education for Apixaban/Eliquis Indication: atrial fibrillation Start Date: December 2023 Expected Duration: indefinite Referring Provider: DINO Campbell Patient Contact: Subjective: Called and spoke with re: apixaban use. He reports he has been taking this since December, taking q12 hours without issue or concern. Pt has a glass of wine a couple times per year. Denies upcoming surgeries/procedures. Labs: CBC (last 90 days): CBC Collection DT Specimen Test Name Result Units Ref Range 02/27/2024 07:43 BLOOD WBC 6.44 K/cmm 4.50 - 11.00 02/27/2024 07:43 BLOOD RBC 4.42 M/cmm 4.23 - 5.66 02/27/2024 07:43 BLOOD HGB 13.1 g/dL 12.8 - 17 02/27/2024 07:43 BLOOD HCT 38.8 L % 39.2 - 50.4 02/27/2024 07:43 BLOOD MCV 87.8 fl 82 - 99 02/27/2024 07:43 BLOOD MCHC 33.8 g/dL 30.8 - 35.1 02/27/2024 07:43 BLOOD PLT 116 L K/cmm 140 - 360 02/27/2024 07:43 BLOOD RDW-CV 14.6 % 12.0 - 16.0 SrCr (last 6 weeks): CREATININE-EGFR 02/27/24 07:43 0.84 CRCL IBW: CrCl(est): 93.8 mL/min (Creat:0.84 02/27/24) CRCL ACT: 97.22 mL/min CRCL ADJ: 93.8 mL/min (02/27/24) LFTs wnl Vitals: Weight (BMI): 220 lb [99.79 kg] (01/22/2024 13:00) BMI: 31.6 Height: 70 in [177.8 cm] (01/03/2022 10:15) Active Outpatient Medications (including Supplies): ACCU-CHEK GUIDE (GLUCOSE) TEST STRIP USE 1 STRIP TO TEST ACTIVE BLOOD SUGARS TWO TIMES A WEEK ALBUTEROL 100/IPRATRO 20MCG 120D PO INHL INHALE 1 PUFF BY ACTIVE MOUTH FOUR TIMES DAILY NEEDED --FOR BREATHING AMIODARONE HCL 200MG TAB TAKE ONE TABLET BY MOUTH ONCE ACTIVE DAILY APIXABAN 5MG TAB TAKE ONE TABLET BY MOUTH EVERY 12 HOURS HOLD FOR PREVENTION OF BLOOD CLOTS ATORVASTATIN CALCIUM 40MG TAB TAKE ONE-HALF TABLET BY ACTIVE (S) MOUTH EVERY EVENING FOR CHOLESTEROL CEPHALEXIN 500MG CAP TAKE FOUR CAPSULES BY MOUTH ONE TIME ACTIVE ; TAKE ONE HOUR PRIOR TO DENTAL APPOINTMENT (8 CAPSULES COVERS 2 DENTAL APPOINTMENTS) CYANOCOBALAMIN 1000MCG TAB TAKE ONE TABLET BY MOUTH ONCE ACTIVE (S) DAILY EPINEPHRINE (EQV-EPI-PEN) 0.3MG/0.3ML INJECT DIRECTED ACTIVE INTRAMUSCULARLY NEEDED FOR LIFE THREATENING ALLERGIC REACTION FINASTERIDE 5MG TAB TAKE ONE TABLET BY MOUTH DAILY FOR ACTIVE (S) PROSTATE FLUTICASONE PROP 50MCG 120D NASAL INHL INSTILL 2 SPRAYS ACTIVE INTO EACH NOSTRIL ONCE DAILY NEEDED FOR NASAL IRRITATION/INFLAMMATION KETOCONAZOLE 2% CREAM APPLY A THIN LAYER TOPICALLY TWICE ACTIVE DAILY FOR ATHLETE'S FOOT METFORMIN HCL 750MG 24HR SA TAB TAKE TWO TABLETS BY MOUTH ACTIVE EVERY EVENING METRONIDAZOLE 500MG TAB TAKE FOUR TABLETS BY MOUTH ONE ACTIVE TIME DENTAL PRE-MEDICATION (COVERS 2 APPOINTMENTS) MICONAZOLE NITRATE 2% TOP PWDR APPLY SMALL AMOUNT ACTIVE TOPICALLY TWICE DAILY FOR ATHLETE'S FOOT MOMETASONE 200MCG/ACTUAT 120D ORAL INHL INHALE 2 PUFFS BY ACTIVE (S) MOUTH TWICE DAILY FOR CONTROLLER MEDICATION FOR ASTHMA --RINSE MOUTH AFTER EACH USE MONTELUKAST NA 10MG TAB TAKE ONE TABLET BY MOUTH EVERY ACTIVE (S) EVENING FOR CONTROLLER MEDICATION FOR ASTHMA OMEPRAZOLE 20MG EC CAP TAKE TWO CAPSULES BY MOUTH DAILY ACTIVE FOR STOMACH ACID SEMAGLUTIDE 1MG/0.75ML INJ PEN 3ML INJECT 1MG ACTIVE SUBCUTANEOUSLY ONCE A WEEK FOR TYPE 2 DIABETES MELLITUS SPIRONOLACTONE 25MG TAB TAKE ONE-HALF TABLET BY MOUTH ONCE ACTIVE DAILY TADALAFIL 5MG TAB TAKE ONE TABLET BY MOUTH ONCE DAILY FOR ACTIVE (S) BPH TERAZOSIN HCL 10MG CAP TAKE ONE CAPSULE BY MOUTH AT ACTIVE BEDTIME FOR BPH TRIAMCINOLONE ACETONIDE 0.1% CREAM APPLY A THIN LAYER ACTIVE TOPICALLY TWICE DAILY FOR ITCHING WATER STERILE FOR IRRIGATION IRRIGATE MODERATE AMOUNT ACTIVE DIRECTED ONCE DAILY FOR C-PAP MACHINE Non-VA CHOLECALCIF 25MCG (D3-1,000UNIT) TAB 25MCG BY MOUTH ACTIVE ONCE DAILY Non-VA DICLOFENAC 1% GEL (EQV-VOLTAREN) GEL,TOP TOPICALLY ACTIVE Non-VA OTHER CAP/TAB BUTALBITAL BY MOUTH ONCE DAILY ACTIVE NEEDED Non-VA SAW PALMETTO CAP/TAB BY MOUTH ACTIVE Non-VA TOLTERODINE TARTRATE 2MG SA CAP 2MG BY MOUTH ONCE ACTIVE DAILY Interacting Meds: diclofenac gel: increased bleeding risk, systemic absorption low Apixaban: The patient was provided with the following education: --Purpose of Apixaban --Signs and symptoms of stroke and thrombosis and what to do should they occur --Medication Identification --Dosing recommendations -Apixaban may be taken with or without food -Apixaban may be crushed --Storage recommendations -Store medication in a dry area at room temperature --Recommendations for missed doses or overdosage --Importance of medication compliance and avoiding lapses in therapy to minimize the risk of stroke --Monitor for signs/symptoms of bleeding, including: -[address] or brown urine -Red or black tarry stools -Coughing up blood -Vomiting blood or vomit that looks like coffee grounds -Reoccurring nosebleeds -Unusual bleeding from the gums -Bleeding from a cut that does not stop -Headaches, dizziness or weakness --Discussed interaction with EtOH, do not exceed 2 drinks/24 hours --Contact this clinic or provider if patient experiences and serious or intolerable adverse effects --Review risks associated with falling --Which medications to avoid due to drug interactions --Importance of notifying all providers of any medication patient is taking or changes that may occur --What to do if patient wants to discontinue therapy --Contact this clinic or provider if scheduled for a procedure --Contact number for the [facility] provided Assessment/Plan: Continue: Apixaban 5mg twice daily, pt requests VA RX be suspended for a couple weeks out as he currently has supply Will ask [facility] tech to please mail apixaban in a.fib handout to pt. Patient is requesting medical alert braclet with the following: apixaban/amiodarone/tadala cally, NIDDM, mitral valve replacement, PTSD,asthma, A+ blood. Allergies: ACEi, betadine, NSAIDs, MSG, tropical fruits. Will enter consult though informed pt unsure if VA can provide bracelet with that much information on it. Time Spent: 15 min Next Appt: n/a, discharge to passive management Next PCP Appt: Mar EDUCATION Provided with verbal instructions: Yes Provided with written instructions: No Barriers to learning: No Readiness to learn: Yes Specific dose directions reviewed: Yes Opportunity for questions/discussion: Yes Reports understanding of instructions: Yes Further learning needs: No PBM PharmD Pharmacotherapy Rem V12: Medication reconciliation (changes to active VA and non-VA medication lists to reconcile differences) No changes to medication lists made (medication review completed, no discrepancies identified) /lisa/ NINO JUNG PHARMD, [facility] Clinical Pharmacist Practitioner Signed: 02/27/2024 12:03 NINO JUNG [facility] ([id number])
--- OUTSIDE RECORDS SUMMARY | 2024-05-10 07:26 | XMS_ITS ---
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 ([place]) Organization [facility] ([place]) Address [address] [place] [id number] Care Team Providers Care Manager Work Name Role Phone CHITO SEGURA Primary Care [...] PART A Feb 16, 2018 PART A [id number] YENNY OVIEDO PATIENT MEDICARE (WNR) MEDICARE (M) PART B Feb 16, 2018 PART B [id number] YENNY OVIEDO ES PATIENT MEDICARE (WNR) MEDICARE (M) PART A Oct 17, 2006 PART A [id number] [facility] [place] YENNY OVIEDO PATIENT FOR LIFE TFL* Apr 06, 2018 [id number] YENNY OVIEDO PATIENT Selected Encounter This section includes the information on record at OR for the Encounter. Date/Time Encounter Type Encounter Description Reason Provider Source Aug 13, 2023 10:59 AM Outpatient Encounter OCCUPATIONAL THERAPY JHONATHAN CAM Ayah Encounter Template Text not used by OR Plan of Treatment: Future Appointments (+ 6 months) and Future Tests (+/- 45 days) The Plan of Treatment section includes future care activities for the patient from all [facility]. This section includes future appointments and future orders which are active, pending or scheduled. Future Appointments This section includes appointments that were scheduled to occur 6 months from the date of the Encounter, up to a maximum of 20 appointments. The data comes from all OR treatment facilities. Appointment Date/Time Appointment Type Appointme nt Facility Name Aug 20, 2023 08:30 AM AMBULATORY [facility] [place] [facility] Aug 26, 2023 09:00 AM AMBULATORY - [facility]IC[facility] [place] [facility] Sep 01, 2023 09:00 AM AMBULATORY - [facility] MEDICIN E [facility] [place] [facility] Sep 09, 2023 08:00 AM AMBULATORY - MEDICINE [facility] [place] [facility] Sep 15, 2023 09:00 AM AMBULATORY - [facility] MEDICIN E [facility] [place] [facility] September 22, 2023 09:00 AM AMBULATORY - RE[facility]AB MEDICIN E [facility] [place] [facility] September 29, 2023 08:00 AM AMBULATORY - MEDICINE [facility] September 29, 2023 08:30 AM AMBULATORY - MEDICINE [facility] October 01, 2023 09:00 AM AMBULATORY - REHAB MEDICIN E [facility] [place] [facility] October 07, 2023 02:30 PM AMBULATORY - REHAB MEDICIN E [facility] [place] [facility] October 16, 2023 07:30 AM AMBULATORY - REHAB MEDICIN E [facility] [place] [facility] Nov 03, 2023 07:30 AM AMBULATORY - REHAB MEDICIN E [facility] [place] [facility] Nov 06, 2023 11:00 AM AMBULATORY - MEDICINE [facility] [place] [facility] Nov 10, 2023 07:30 AM AMBULATORY - REHAB MEDICIN E [facility] [place] [facility] Nov 18, 2023 11:00 AM AMBULATORY - NONE [facility] [place] [facility] Nov 27, 2023 07:15 AM AMBULATORY - NONE [facility] [place] [facility] Nov 27, 2023 07:45 AM AMBULATORY - NONE [facility] [place] [facility] Dec 01, 2023 08:00 AM AMBULATORY - MEDICINE [facility] Jan 12, 2024 11:25 AM AMBULATORY - MEDICINE [place] [facility] [place] [facility] Jan 12, 2024 11:40 AM AMBULATORY - MEDIC[facility] Lab Results: +/- 30 days of the [...] Range Comment Jul 17, 2023 07:35 AM [facility] HEMOGLOBIN A1C PANEL Specimen Type: BLOOD Comment: [...] Apr 28, 2023 03:05 PM Reporting Lab: [facility] [address] Performing Lab: [facility] [address] HEMOGLOBIN A1C 6.5 H 4.0-5.6 Jul 17, 2023 07:35 AM [facility] VITAMIN B12 Specimen Type: SERUM No comment entered. Ordering Provider: AYUSH SEGURA F Report Released Date/Time: Apr 28, 2023 03:05 PM Reporting Lab: [facility] [address] [address] Performing Lab: [facility] [address] [address] VITAMIN B12 643 pg/mL 200-900 Jul 17, 2023 07:35 AM [facility] LIVER FUNCTION Specimen Type: SERUM No comment entered. Ordering Provider: AYUSH SEGURA F Report Released Date/Time: Apr 28, 2023 03:05 PM Reporting Lab: [address] [address] Performing Lab: [address] [address] PROTEIN,TOTAL 6.2 g/dL 6.0-8.3 ALBUMIN 3.7 g/dL 3.5-5.0 ALKALINE PHOSPHATASE 35 U/L L 40-150 AST 12 U/L 5-34 ALT 13 U/L BILIRUBIN, TOTAL 0.8 mg/dL 0.2-1.2 Jul 17, 2023 07:35 AM [facility] BASIC METABOLIC PANEL (fasting) Specimen Type: SERUM No comment entered. Ordering Provider: AYUSH SEGURA F Report Released Date/Time: Apr 28, 2023 03:05 PM Reporting Lab: [address] [address] Performing Lab: [address] [address] UREA NITROGEN 14 mg/dL 7-25 GLUCOSE 128 mg/dL H 65-100 SODIUM 142 mmol/L 135-145 POTASSIUM 3.9 mmol/L 3.5-5.0 CHLORIDE 107 mmol/L 100-110 CO2 24 meq/L 20-30 CREATININE, Serum 0.69 mg/dL 0.50-1.40 eGFR(CKD-EPI 2020) >90 mL/min >60 Jul 17, 2023 07:35 AM [facility] MICROALBUMIN CREATININE RATIO PANEL Specimen Type: URINE No comment entered. Ordering Provider: AYUSH SEGURA F Report Released Date/Time: Apr 28, 2023 03:05 PM Reporting Lab: [address] [address] Performing Lab: [facility] [place] [facility] [address] [facility] [address] MICROALBUMIN/C REATININE RATIO 37.0 mg/g H 0-29.9 MICROALBUMIN,Q UANTITATIVE 3.4 mg/dL RR UNAVAIL CREATININE URINE 91.89 mg/dL Jul 17, 2023 07:35 AM [facility] LIPID PANEL FASTING Specimen Type: SERUM No comment entered. Ordering Provider: AYUSH SEGURA Report Released Date/Time: Apr 28, 2023 03:05 PM Reporting Lab: [facility] [address] [facility] [address] Performing Lab: [facility] [address] [facility] [address] CHOLESTEROL 118 mg/dL TRIGLYCERIDE 107 mg/dL 0-150 [...] 21, 2023 01:30 PM VA-TOBACCO FOR[facility]ER [facility] Tobacco Use History This section includes a history of the smoking, or tobacco-related health factors, that were collected on or before the date of the Encounter. The data comes from the OR facility where the Encounter took place. Date/Time Smoking Status/Tobacco Use Comment F acility Jul 21, 2023 01:30 PM VA-TOBACCO QUIT 15 YRS OR MORE [place] [facility] [place] [facility] Mar 28, 2021 03:28 PM VA-TOBACCO FORMER USER [place] [facility] [place] [facility] Mar 28, 2021 03:28 PM VA-TOBACCO QUIT 15 YRS OR MORE [facility] Dec 02, 2019 09:36 AM VA-TOBACCO NEVER [facility]ED [facility] Apr 23, 2005 10:19 AM QUIT TOBACCO USE IN PAST YEAR [place] [facility] [place] [facility] Advance Directives: All historical and current Section [...] 16, 2011 ADVANCE DIRECTIVE DISCUSSION MARGARITA TERRAZAS [place] Encounter Notes: All associated encounter notes This section contains the clinical notes associated to the Encounter. Date/Time Encounter Note(s) Provider Source Aug 13, 2023 10:59 AM SECURE MESSAGING: LOCAL TITLE: OCCUPATIONAL THERAPY SECURE MESSAGE STANDARD TITLE: SECURE MESSAGING DATE OF NOTE: AUG 13, 2023@10:59 ENTRY DATE: AUG 13, 2023@11:59:51 AUTHOR: JHONATHAN CAM COSIGNER: URGENCY: STATUS: COMPLETED ------Original Message ------- Sent: 08/06/2023 03:53 PM ET From: ANDREEA OVIEDO To: OCCUPATIONAL THERAPY_[facility]M/SPOPC! Subject: General:Triplets in my Shoulder Hi, Downloaded the report and printed it. Thank you. Edwar ------Original Message ------- Sent: 08/12/2023 09:05 AM ET From: ANDREEA OVIEDO To: OCCUPATIONAL THERAPY_[facility]/SPOPC! Subject: General:Triplets in my Shoulder Very discouraged with surgeon visit. He did not listen to me and set his mind in the direction he wanted to go. Clearly I was given the [place] out the door. I would say in his rapid fire non-response I did manage to elicit one plausible explanation of the problem, scar tissue! So I can only figure that this is the best way to proceed and I will just have to work with the pain...so there it is. He was VERY surprised I refused offers of pain meds, injections and so on...I just wasn't interested in them or considering them as an option. I made it clear I was more interested in the mechanics and possible REALISTIC options, See you tomorrow. /lisa/ JHONATHAN CAM OTR/[place] OCCUPATIONAL THERAPIST Signed: 08/13/2023 11:59 JHONATHAN ACM [facility]
--- OUTSIDE RECORDS SUMMARY | 2024-05-10 07:26 | XMS_ITS | Encounter Summary ---
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 Date/Time Encounter Type Encounter Description Reason Provider Source Jul 14, 2023 08:14 AM Outpatient Encounter PRIMARY CARE/MEDICINE AISHA SANDERS E Encounter Template Text not used by ID Plan of Treatment: Future Appointments (+ 6 months) and Future Tests (+/- 45 days) The Plan of Treatment section includes future care activities for the patient [facility] This section includes future appointments and future orders which are active, pending or scheduled. Future Appointments This section includes appointments that were scheduled to occur 6 months from the date of the Encounter, up to a maximum of 20 appointments. The data comes from all ID treatment facilities. Appointment Date/Time Appointment Type Appointme nt Facility Name Jul 17, 2023 08:30 AM AMBULATORY - [facility] MEDICIN E [facility] [place] [facility] Jul 17, 2023 12:00 PM AMBULATORY - NONE [facility] [place] [facility] Jul 21, 2023 01:30 PM AMBULATORY - MEDICINE [facility] [place] [facility] Jul 24, 2023 08:30 AM AMBULATORY - REHAB MEDICIN E [facility] [place] [facility] Jul 31, 2023 08:30 AM AMBULATORY - REHAB MEDICIN E [facility] [place] [facility] Aug 04, 2023 08:00 AM [facility] Aug 04, 2023 08:30 AM [facility] Aug 06, 2023 09:00 AM AMBULATORY - REHAB MEDICIN E [facility] [place] [facility] Aug 20, 2023 08:30 AM AMBULATORY - REHAB MEDICIN E [facility] [place] [facility] Aug 26, 2023 09:00 AM AMBULATORY - REHAB MEDICIN E [facility] [place] [facility] Sep 01, 2023 09:00 AM AMBULATORY - REHAB MEDICIN E [facility] [place] [facility] Sep 09, 2023 08:00 AM AMBULATORY - MEDICINE [facility] [place] [facility] Sep 15, 2023 09:00 AM AMBULATORY - REHAB MEDICIN E [facility] [place] [facility] September 22, 2023 09:00 AM AMBULATORY - REHAB MEDICIN E [facility] [place] [facility] September 29, 2023 08:00 AM [facility] September 29, 2023 08:30 AM AM[place]ORY - [place]IC[place] October 01, 2023 09:00 AM AMBULATORY - REHAB MEDICIN E [facility] [place] [facility] October 07, 2023 02:30 PM AMBULATORY - REHAB MEDICIN E [facility] [place] [facility] October 16, 2023 07:30 AM AMBULATORY - REHAB MEDICIN E [facility] [place] [facility] Nov 03, 2023 07:30 AM AMBULATORY - REHAB MEDICIN E [facility] [place] [facility] Lab Results: +/- 30 days of the encounter This section includes the Chemistry and Hematology Lab Results on record with ID for the patient. Radiology Reports and Pathology Reports are provided separately, in subsequent sections. Lab Results This section contains the Chemistry/Hematology Results that were resulted 30 days before or 30 daysafter the date of the Encounter. Date/Time Source Result Type Result - Unit Interpretation Reference Range Comment Jul 17, 2023 07:35 AM [facility] HEMOGLOBIN A1C PANEL Specimen Type: BLOOD Comment: Values obtained from A1C measurements can vary. For atypical A1C assays, a reported value of 7.0 could actually be between 6.72 and 7.28 if measured by a reference method. A reported value of 9.0 could actually be between 8.73 and 9.27. Ref: http://www.ngs p.org/CAPdata. asp Ordering Provider: AYUSH MEDRANO Report Released Date/Time: Apr 28, 2023 03:05 PM Reporting [facility]: [facility] [address] [address] Performing Lab: [address] [address] HEMOGLOBIN A1C 6.5 H 4.0-5.6 Jul 17, 2023 07:35 AM [facility] BASIC METABOLIC PANEL (fasting) Specimen Type: SERUM No comment entered. Ordering Provider: AYUSH MEDRANO Report Released Date/Time: Apr 28, 2023 03:05 PM Reporting Lab: [address] [address] Performing Lab: [facility] [address] [facility] [address] UREA NITROGEN 14 mg/dL 7-25 GLUCOSE 128 mg/dL H 65-100 SODIUM 142 mmol/L 135-145 POTASSIUM 3.9 mmol/L 3.5-5.0 CHLORIDE 107 mmol/L 100-110 CO2 24 meq/L 20-30 CREATININE, Serum 0.69 mg/dL 0.50-1.40 eGFR(CKD-EPI 2020) >90 mL/min >60 Jul 17, 2023 07:35 AM [facility] LIVER FUNCTION Specimen Type: SERUM No comment entered. Ordering Provider: AYUSH MEDRANO F Report Released Date/Time: Apr 28, 2023 03:05 PM Reporting Lab: [address] [address] Performing Lab: [address] [address] PROTEIN,TOTAL 6.2 g/dL 6.0-8.3 ALBUMIN 3.7 g/dL 3.5-5.0 ALKALINE PHOSPHATASE 35 U/L L 40-150 AST 12 U/L 5-34 ALT 13 U/L BILIRUBIN, TOTAL 0.8 mg/dL 0.2-1.2 Jul 17, 2023 07:35 AM [facility] VITAMIN B12 Specimen Type: SERUM No comment entered. Ordering Provider: AYUSH MEDRANO Report Released Date/Time: Apr 28, 2023 03:05 PM Reporting Lab: [address] [address] Performing Lab: [address] [address] VITAMIN B12 643 pg/mL 200-900 Jul 17, 2023 07:35 AM [facility] MICROALBUMIN CREATININE RATIO PANEL Specimen Type: URINE No comment entered. Ordering Provider: AYUSH MEDRANO F Report Released Date/Time: Apr 28, 2023 03:05 PM Reporting Lab: [address] [address] Performing Lab: [facility] [address] [facility] [address] MICROALBUMIN/C REATININE RATIO 37.0 mg/g H 0-29.9 MICROALBUMIN,Q UANTITATIVE 3.4 mg/dL RR UNAVAIL CREATININE URINE 91.89 mg/dL Jul 17, 2023 07:35 AM [facility] LIPID PANEL FASTING Specimen Type: SERUM No comment entered. Ordering Provider: AYUSH MEDRANO Report Released Date/Time: Apr 28, 2023 03:05 PM Reporting Lab: [facility] [address] [facility] [address] Performing Lab: [facility] [address] [facility] [address] CHOLESTEROL 118 mg/dL TRIGLYCERIDE 107 mg/dL 0-150 LDL calculated 58 mg/dL 0-129 CHOL/HDL 3.0 HDL CHOLESTEROL 39 mg/dL L 40-60 Social History: Smoking Status (Most current) and Tobacco Use (All prior to encounter date) This section includes the most current, and the historical, smoking and tobacco- related health factors from the ID facility where the Encounter took place. Current Smoking Status This section includes the most current smoking, or tobacco-related health factor, from the ID facility where the Encounter took place. Date/Time Current Smoking Status Comment Facil ity Mar 28, 2021 03:28 PM VA-TOBACCO FORMER USER [facility] Tobacco Use History This section includes a history of the smoking, or tobacco-related health factors, that were collected on or before the date of the Encounter. The data comes from the ID facility where the Encounter took place. Date/Time Smoking Status/Tobacco Use Comment F acility Mar 28, 2021 03:28 PM VA-TOBACCO QUIT 15 YRS OR MORE [facility] Dec 02, 2019 09:36 AM VA-TOBACCO NEVER USED [facility] Apr 23, 2005 10:19 AM QUIT TOBACCO USE IN PAST YEAR [facility] Advance Directives: All historical and current Section Date Range: From patient's date of to the date document was created. This section includes ALL of a patient's completed or amended VA Advance and Rescinded Directives. The entries below indicate that a directive exists for the patient, but an actual copy is not included with this document. The data comes from all ID facilities. Date Advance Directives Provider Source Dec 16, 2011 ADVANCE DIRECTIVE DISCUSSION MARGARITA TERRAZAS [place] Encounter Notes: All associated encounter notes This section contains the clinical notes associated to the Encounter. Date/Time Encounter Note(s) Provider Source Jul 24, 2023 08:56 AM PRIMARY CARE [place] MESSAGING: LOCAL TITLE: PRIMARY CARE SECURE MESSAGING STANDARD TITLE: PRIMARY CARE SECURE MESSAGING DATE OF NOTE: JUL 24, 2023@08:56 ENTRY DATE: JUL 24, 2023@08:56:50 AUTHOR: AISHA SANDERS COSIGNER: URGENCY: STATUS: COMPLETED ------Original Message -------- Sent: 07/14/2023 09:56 AM ET From: ANDREEA OVIEDO To: Sebas MEDRANO_PRIMARY CARE_[facility] Subject: Appointment:Pre-visit labs Thank you. Andreea Oviedo ------Original Message -------- Sent: 07/24/2023 07:17 AM ET From: ANDREEA OVIEDO To: Saad [facility] Subject: Appointment:Pre-visit labs This message is to let you and Mauri Medrano know I have sent blood pressure information for possible medication review and current lab results to my uniform maker Dr. Fernando as Mauri BARILLAS has instructed. Alina Oviedo ------Original Message -------- Sent: 07/24/2023 08:56 AM ET From: AISHA SANDERS To: ANDREEA OVIEDO Subject: Appointment:Pre-visit labs Thank you very much ! Will forwarded your message to your PCP to make him aware. Have a great day. Thank you for your service, Aisha RN - PACT Histological Illustrator /lisa/ AISHA SANDERS RN REGISTERED NURSE Signed: 07/24/2023 08:56 AISHA SANDERS [facility] Jul 14, 2023 08:14 AM PRIMARY CARE SECUR E MESSAGING: LOCAL TITLE: PRIMARY CARE SECURE MESSAGING STANDARD TITLE: PRIMARY CARE SECURE MESSAGING DATE OF NOTE: JUL 14, 2023@08:14 ENTRY DATE: JUL 14, 2023@08:14:09 AUTHOR: AISHA SANDERS EXP COSIGNER: URGENCY: STATUS: COMPLETED ------Original Message -------- Sent: 07/12/2023 08:44 AM ET From: ANDREEA OVIEDO To: RADHASebas SEGURA_PRIMARY CARE_[facility] Subject: Appointment:Pre-visit labs I have an appointment with you on 21 Jul 2023. Would I need to get pre-visit labs? Thank you Andreea Oviedo [phone] ------Original Message -------- Sent: 07/14/2023 08:14 AM ET From: AISHA SANDERS To: ANDREEA OVIEDO Subject: Appointment:Pre-visit labs Yes, there are labs for you to complete prior to your next appointment with Mr. Medrano. Fasting is not necessary. If you have any other questions, don't hesitate to ask. Thank you for your service, MANJU Ware - PACT Histological Illustrator /lisa/ AISHA SANDERS RN REGISTERED NURSE Signed: 07/14/2023 08:14 AISHA SANDERS [facility]
--- OUTSIDE RECORDS SUMMARY | 2024-05-10 07:26 | XMS_ITS ---
Author Name [facility] [place] [facility] [place] Organization [facility] [place] Address [address] [place] [id number] Care Team Providers Care Lens Maker Name Role Phone CHITO MEDRANO Primary Care [...] PART A Feb 16, 2018 PART A [id number] [phone] YENNY OVIEDO ES PATIENT MEDICARE (WNR) MEDICARE (M) PART B Feb 16, 2018 PART B [id number] YENNY OVIEDO ES PATIENT MEDICARE (WNR) MEDICARE (M) PART A Oct 17, 2006 PART A [id number] [facility] YENNY OVIEDO PATIENT FOR LIFE TFL* Apr 06, 2018 [id number] YENNY OVIEDO PATIENT Selected Encounter This section includes the information on record at [place] for the Encounter. Date/Time Encounter Type Encounter Description Reason Provider Source Jul 21, 2023 01:30 PM OFFICE O/P EST LOW 20 MIN PRIMARY CARE/MEDICINE ICD-10-CM G47.30 Sleep apnea, unspecified AYUSH MEDRANO E Encounter Template Text not used by [place] Assessments - Encounter Diagnoses This section includes the primary and secondary diagnoses documented for the Encounter. Date/Time Primary/Secondary Diagnosis Diagnosis Name Provider Source Jul 21, 2023 02:28 PM PRIMARY Sleep apnea, unspecified ELIEL MEDRANOPeter Ladd [facility] [place] [facility] Jul 21, 2023 02:28 PM SECONDARY Benign prostatic hyperplasia with lower urinary tract symp ELIEL MEDRANO [place] [facility] [place] [facility] Jul 21, 2023 02:28 PM SECONDARY Chronic obstructive pulmonary disease, unspecified ELIEL MEDRANOPeter Ladd [facility] [place] [facility] Jul 21, 2023 02:28 PM SECONDARY Hypertension secondary to endocrine disorders ELIEL MEDRANOPeter Ladd [place] [facility] [place] [facility] Jul 21, 2023 02:28 PM SECONDARY Type 2 diabetes mellitus with unspecified complications ELIEL MEDRANOPeter Ladd [place] [facility] [place] [facility] Plan of Treatment: Future Appointments (+ 6 months) and Future Tests (+/- 45 days) The Plan of Treatment section includes future care activities for the [facility] [place] [facility] This section includes future appointments and future orders which are active, pending or scheduled. Future Appointments This section includes appointments that were scheduled to occur 6 months from the date of the Encounter, up to a maximum of 20 appointments. The data comes from all [place] treatment facilities. Appointment Date/Time Appointment Type Appointme nt Facility Name Jul 24, 2023 08:30 AM AMBULAT[facility] [place] [facility] Jul 31, 2023 08:30 AM AMBULAT[facility] [place] [facility] Aug 04, 2023 08:00 AM [facility] Aug 04, 2023 08:30 AM [facility]ORY [facility] MEDIC[facility] Aug 06, 2023 09:00 AM AMBULATORY [facility] [place] [facility] Aug 20, 2023 08:30 AM AMBULATORY [facility] [place] [facility] Aug 26, 2023 09:00 AM [facility] [place] [facility] Sep 01, 2023 09:00 AM AMBULAT[facility] [place] [facility] Sep 09, 2023 08:00 AM [facility] [place] [facility] Sep 15, 2023 09:00 AM AMBULATORY [facility] [place] [facility] September 22, 2023 09:00 AM AMBULAT[facility] [place] [facility] September 29, 2023 08:00 AM [facility] [facility] [place] September 29, 2023 08:30 AM AM[facility]ORY - [facility]IC[place] [facility] [place] October 01, 2023 09:00 AM AMBULAT[facility] [place] [facility] October 07, 2023 02:30 PM AMBULATORY [facility] [place] [facility] October 16, 2023 07:30 AM AMBULATORY [facility] [place] [facility] Nov 03, 2023 07:30 AM AMBULAT[facility] [place] [facility] Nov 06, 2023 11:00 AM AMBULATORY - [facility]ICINE [facility] [place] [facility] Nov 10, 2023 07:30 AM AMBULAT[facility] [place] [facility] Nov 18, 2023 11:00 AM AMBULATORY - NONE [facility] [place] [facility] Lab Results: +/- 30 days of the encounter This section includes the Chemistry and Hematology Lab Results on record with [place] for the patient. Radiology Reports and Pathology Reports are provided separately, in subsequent sections. Lab Results This section contains the Chemistry/Hematology Results that were resulted 30 days before or 30 daysafter the date of the Encounter. Date/Time Source Result Type Result - Unit Interpretation Reference Range Comment Jul 17, 2023 07:35 AM [facility] [place] [facility] HEMOGLOBIN A1C PANEL Specimen Type: BLOOD Comment: Values obtained from A1C measurements can vary. For atypical A1C assays, a reported value of 7.0 could actually be between 6.72 and 7.28 if measured by a reference method. A reported value of 9.0 could actually be between 8.73 and 9.27. Ref: http://www.ngs p.org/CAPdata. asp Ordering Provider: AYUSH MEDRANO F Report Released Date/Time: Apr 28, 2023 03:05 PM Reporting Lab: [address] [address] Performing Lab: [address] [address] HEMOGLOBIN A1C 6.5 H 4.0-5.6 Jul 17, 2023 07:35 AM [facility] LIVER FUNCTION Specimen Type: SERUM No comment entered. Ordering Provider: AYUSH MEDRANOM F Report Released Date/Time: Apr 28, 2023 03:05 PM Reporting Lab: [address] [address] Performing Lab: [address] [address] PROTEIN,TOTAL 6.2 g/dL 6.0-8.3 ALBUMIN 3.7 g/dL 3.5-5.0 ALKALINE PHOSPHATASE 35 U/L L 40-150 AST 12 U/L 5-34 ALT 13 U/L BILIRUBIN, TOTAL 0.8 mg/dL 0.2-1.2 Jul 17, 2023 07:35 AM [facility] BASIC METABOLIC PANEL (fasting) Specimen Type: SERUM No comment entered. Ordering Provider: AYUSH MEDRANO F Report Released Date/Time: Apr 28, 2023 03:05 PM Reporting Lab: [address] [address] Performing Lab: [address] [address] UREA NITROGEN 14 mg/dL 7-25 GLUCOSE 128 mg/dL H 65-100 SODIUM 142 mmol/L 135-145 POTASSIUM 3.9 mmol/L 3.5-5.0 CHLORIDE 107 mmol/L 100-110 CO2 24 meq/L 20-30 CREATININE, Serum 0.69 mg/dL 0.50-1.40 eGFR(CKD-EPI 2020) >90 mL/min >60 Jul 17, 2023 07:35 AM [facility] MICROALBUMIN CREATININE RATIO PANEL Specimen Type: URINE No comment entered. Ordering Provider: AYUSH MEDRANO F Report Released Date/Time: Apr 28, 2023 03:05 PM Reporting Lab: [facility] [place] [facility] [address] [facility] [address] Performing Lab: [facility] [address] [facility] [address] MICROALBUMIN/C REATININE RATIO 37.0 mg/g H 0-29.9 MICROALBUMIN,Q UANTITATIVE 3.4 mg/dL RR UNAVAIL CREATININE URINE 91.89 mg/dL Jul 17, 2023 07:35 AM [facility] VITAMIN B12 Specimen Type: SERUM No comment entered. Ordering Provider: AYUSH MEDRANO F Report Released Date/Time: Apr 28, 2023 03:05 PM Reporting Lab: [facility] [address] [facility] [address] Performing Lab: [facility] [address] [facility] [address] VITAMIN B12 643 pg/mL 200-900 Jul 17, 2023 07:35 AM [facility] LIPID PANEL FASTING Specimen Type: SERUM No comment entered. Ordering Provider: AYUSH MEDRANO Report Released Date/Time: Apr 28, 2023 03:05 PM Reporting Lab: [facility]ITAL[facility] [address] [facility] [address] Performing Lab: [facility]ITAL[facility] [address] [address] CHOLESTEROL 118 mg/dL TRIGLYCERIDE 107 mg/dL 0-150 LDL calculated 58 mg/dL 0-129 CHOL/HDL 3.0 HDL CHOLESTEROL 39 mg/dL L 40-60 Vital Signs: All taken on the encounter date This section contains inpatient and outpatient Vital Signs collected on the date of the Encounter. Date/Time Temperature Pulse Blood Pressure Respiratory Rate SP02 Pain Height Weight Body Mass Index Source Jul 21, 2023 01:26 PM 97.8 53 154/74 20 92 238.8 34 [facility] Social History: Smoking Status (Most current) and Tobacco Use (All prior to encounter date) This section includes the most current, and the historical, smoking and tobacco- related health factors from the [place] facility where the Encounter took place. Current Smoking Status This section includes the most current smoking, or tobacco-related health factor, from the [place] facility where the Encounter took place. Date/Time Current Smoking Status Comment Facil ity Jul 21, 2023 01:30 PM VA-TOBACCO FOR[facility]ER [facility] Tobacco Use History This section includes a history of the smoking, or tobacco-related health factors, that were collected on or before the date of the Encounter. The data comes from the [place] facility where the Encounter took place. Date/Time Smoking Status/Tobacco Use Comment F acility Jul 21, 2023 01:30 PM VA-TOBACCO QUIT 15 YRS OR MORE [place] [facility] Mar 28, 2021 03:28 PM [facility]AC[facility] Mar 28, 2021 03:28 PM VA-TOBACCO QUIT 15 YRS OR MORE [place] [facility] [place] [facility] Dec 02, 2019 09:36 AM VA-TOBACCO NEVER USED [facility] [place] [facility] Apr 23, 2005 10:19 AM QUIT TOBACCO USE IN PAST YEAR [facility] Advance Directives: All historical and current Section Date Range: From patient's date of to the date document was created. This section includes ALL of a patient's completed or amended [place] Advance and Rescinded Directives. The entries below indicate that a directive exists for the patient, but an actual copy is not included with this document. The data comes from all [place] facilities. Date Advance Directives Provider Source Dec 16, 2011 ADVANCE DIRECTIVE DISCUSSION MARGARITA TERRAZAS [employer] Encounter Notes: All associated encounter notes This section contains the clinical notes associated to the Encounter. Date/Time Encounter Note(s) Provider Source Jul 21, 2023 03:17 PM ADDENDUM: LOCAL TITLE: Addendum STANDARD TITLE: ADDENDUM DATE OF NOTE: JUL 21, 2023@15:17:04 ENTRY DATE: JUL 21, 2023@15:17:05 AUTHOR: CHITO MEDRANO Wilberto SALAZARIGNER: URGENCY: STATUS: COMPLETED His reports sending shot info in an this winter. If needed, message her and she will send again OR have him carry it up. Enter in chart. /lisa/ Chito Medraon PA-C STAFF PHYSICIAN ELECTRICAL WIRER Signed: 07/21/2023 15:17 Receipt Acknowledged By: 07/22/2023 07:43 /es/ AISHA SANDERS RN REGISTERED NURSE --- Original Document --- 07/21/23 DINO NOTE: CC/HPI/A/P: 68 year old MALE here in follow-up for; htn, home readings are lower than ours, they will d/w DR Cohen DM with nephropathy, mild, glucose is in good control. Past hx of ADRs to ACEIs and ARBs. They will address with DR Cohen as well. ANJELICA< ffm works well, thru here. Review of systems: Patient reports no changes from [place] [place] [facility], in meds or any admissions. Active problems - Computerized Problem List is the source for the followin. Palpitations 2. SAS - Sleep apnea syndrome 3. COPD - Chronic Obstructive Pulmonary Disease ([facility] [id number]) 4. Gastroesophageal reflux disease 5. Benign localized hyperplasia of prostate 6. Deficiency of vitamin D3 7. Thrombocytopenia 8. Diabetes mellitus type 2 (SNOMED CT 57009268) 9. Disorder of rotator cuff 10. Lumbar Radiculopathy EMG motor loss post.tib Bilat Chronic R. L5-S1 dennerv. L-S MRI 01/27 disc bulge + mild mod stenosis L3-4, 4-5.+ R.L4-5 foraminal narrowing. Schmorl's node T12 11. Diverticulitis, Colonic * 12. Gastroesophageal Reflux Disorder 13. Degenerative arthritis (SNOMED CT 656278928) 14. Mitral Valve Prolapse ECHO 01/25 EF 55-60%. AV mildly thickened. No AI/. mild LAE myxom. degen MV. mild MVP.mild-mod MR. mild TR. [id number] Echo 02/26EF60%,2-3+MR,LAE,myx. degen MV, no change fr [address] Kassidy Campbell [phone] 15. Hyperlipidaemia (SNOMED CT 34316990) 16. Benign essential hypertension (SNOMED CT 5269743) Dr Saunders 17. Obesity 18. Posttraumatic Stress Disorder 19. Panic Attacks SERVICE CONNECTED % - 80 VA and Non VA meds were reconciled with the patient who left with a corrected copy. See medication page for details. Active and Recently Outpatient Medications (excluding Supplies): Active Outpatient Medications Status 1) ACCU-CHEK GUIDE (GLUCOSE) TEST STRIP USE 1 STRIP TO ACTIVE (S) TEST BLOOD SUGARS TWO TIMES A WEEK 2) ATORVASTATIN CALCIUM 40MG TAB TAKE ONE-HALF TABLET BY ACTIVE MOUTH EVERY EVENING FOR CHOLESTEROL 3) CYANOCOBALAMIN 1000MCG TAB TAKE ONE TABLET BY MOUTH ACTIVE ONCE DAILY 4) DILTIAZEM (EQV-CARDIZEM) 180MG 24HR CAP TAKE ONE ACTIVE (S) CAPSULE BY MOUTH ONCE DAILY 5) FINASTERIDE 5MG TAB TAKE ONE TABLET BY MOUTH DAILY ACTIVE FOR PROSTATE 6) FLUTICASONE PROP 50MCG 120D NASAL INHL INSTILL 2 ACTIVE (S) SPRAYS INTO EACH NOSTRIL ONCE DAILY NEEDED FOR NASAL IRRITATION/INFLAMMATION 7) KETOCONAZOLE 2% CREAM APPLY A THIN LAYER TOPICALLY ACTIVE (S) TWICE DAILY FOR ATHLETE'S FOOT 8) METFORMIN HCL 750MG 24HR SA TAB TAKE TWO TABLETS BY ACTIVE (S) MOUTH EVERY EVENING 9) METOPROLOL SUCCINATE 25MG SA TAB TAKE ONE TABLET BY ACTIVE MOUTH TWICE DAILY FOR HEART FAILURE 10) MICONAZOLE NITRATE 2% TOP PWDR APPLY SMALL AMOUNT ACTIVE TOPICALLY TWICE DAILY FOR ATHLETE'S FOOT 11) MOMETASONE 200MCG/ACTUAT 120D ORAL INHL INHALE 2 ACTIVE PUFFS BY MOUTH TWICE DAILY FOR CONTROLLER MEDICATION FOR ASTHMA --RINSE MOUTH AFTER EACH USE 12) MONTELUKAST NA 10MG TAB TAKE ONE TABLET BY MOUTH ACTIVE EVERY EVENING FOR CONTROLLER MEDICATION FOR ASTHMA 13) OMEPRAZOLE 20MG EC CAP TAKE TWO CAPSULES BY MOUTH ACTIVE (S) DAILY FOR STOMACH ACID 14) SEMAGLUTIDE 1MG/0.75ML INJ PEN 3ML INJECT 1MG ACTIVE (S) SUBCUTANEOUSLY ONCE A WEEK FOR TYPE 2 DIABETES MELLITUS 15) TADALAFIL 5MG TAB TAKE ONE TABLET BY MOUTH ONCE DAILY ACTIVE FOR BPH 16) TERAZOSIN HCL 10MG CAP TAKE ONE CAPSULE BY MOUTH AT ACTIVE (S) BEDTIME FOR BPH 17) TRIAMCINOLONE ACETONIDE 0.1% CREAM APPLY A THIN LAYER ACTIVE TOPICALLY TWICE DAILY FOR ITCHING 18) WATER STERILE FOR IRRIGATION IRRIGATE MODERATE AMOUNT ACTIVE (S) DIRECTED ONCE DAILY FOR C-PAP MACHINE Pending Outpatient Medications Status 1) CLONAZEPAM 0.5MG TAB TAKE ONE TABLET BY MOUTH AT PENDING BEDTIME NEEDED (DO NOT TAKE WITH ALCOHOL OR ANY MEDICATIONS THAT ARE SEDATING. DO NOT DRIVE OR OPERATE MACHINERY WHILE TAKING THIS) 2) FLUTICASONE PROP 50MCG 120D NASAL INHL INSTILL 2 PENDING SPRAYS INTO EACH NOSTRIL ONCE DAILY NEEDED FOR NASAL IRRITATION/INFLAMMATION 3) METFORMIN HCL 750MG 24HR SA TAB TAKE TWO TABLETS BY PENDING MOUTH EVERY EVENING 4) OMEPRAZOLE 20MG EC CAP TAKE TWO CAPSULES BY MOUTH PENDING ONCE DAILY FOR STOMACH ACID 5) TADALAFIL 5MG TAB TAKE ONE TABLET BY MOUTH ONCE DAILY PENDING FOR BPH 6) TERAZOSIN HCL 10MG CAP TAKE ONE CAPSULE BY MOUTH AT PENDING BEDTIME FOR BPH 7) WATER STERILE FOR IRRIGATION IRRIGATE MODERATE AMOUNT PENDING DIRECTED ONCE DAILY FOR C-PAP MACHINE Inactive Outpatient Medications Status 1) CLONAZEPAM 0.5MG TAB TAKE ONE TABLET BY MOUTH AT BEDTIME NEEDED FOR PANIC DISORDER (DO NOT TAKE WITH ALCOHOL OR ANY MEDICATIONS THAT ARE SEDATING. DO NOT DRIVE OR OPERATE MACHINERY WHILE TAKING THIS) Active Non-VA Medications Status 1) Non-VA ASPIRIN 81MG EC TAB 81MG BY MOUTH ACTIVE 2) Non-VA CHOLECALCIF 25MCG (D3-1,000UNIT) TAB 25MCG BY ACTIVE MOUTH ONCE DAILY 3) Non-VA DICLOFENAC 1% GEL (EQV-VOLTAREN) GEL,TOP ACTIVE TOPICALLY 4) Non-VA OTHER CAP/TAB BUTALBITAL BY MOUTH ONCE DAILY ACTIVE NEEDED 5) Non-VA SAW PALMETTO CAP/TAB BY MOUTH ACTIVE 31 Total Medications 97.8 F [36.6 C] (07/21/2023 13:26) 53 (07/21/2023 13:26) 20 (07/21/2023 13:26) 154/74 (07/21/2023 13:26) 0 (04/28/2023 14:11) 70 in [177.8 cm] (01/03/2022 10:15) 238.8 lb [108.32 kg] (07/21/2023 13:26) BMI: 34.3 Neuro: Alert and oriented times three, grossly nonfocal, nasolabial folds intact. Thyroid nonpalpable. Cor: Regular rate and rhythm, normal s1 and 2 without Murmur, carotid bruits or pedal edema. Lungs; Clear to auscultation bilaterally. Recent labs reviewed with patient today: /lisa/ Chito Medrano PA-C STAFF PHYSICIAN ELECTRICAL WIRER Signed: 07/21/2023 14:28 CHTIO MEDRANO [place] [facility] Jul 21, 2023 02:25 PM PHYSICIAN ELECTRICAL WIRER NOTE: LOCAL TITLE: PA NOTE STANDARD TITLE: PHYSICIAN ELECTRICAL WIRER NOTE DATE OF NOTE: JUL 21, 2023@14:25 ENTRY DATE: JUL 21, 2023@14:25:55 AUTHOR: CHITO MEDRANO EXP COSIGNER: URGENCY: STATUS: COMPLETED DINO NOTE Has ADDENDA CC/HPI/A/P: 68 year old MALE here in follow-up for; htn, home readings are lower than ours, they will d/w DR Cohen DM with nephropathy, mild, glucose is in good control. Past hx of ADRs to ACEIs and ARBs. They will address with DR Cohen as well. ANJELICA< ffm works well, thru here. Review of systems: Patient reports no changes from [facility], in meds or any admissions. Active problems - Computerized Problem List is the source for the followin. Palpitations 2. SAS - Sleep apnea syndrome 3. COPD - Chronic Obstructive Pulmonary Disease ([facility] 26678487) 4. Gastroesophageal reflux disease 5. Benign localized hyperplasia of prostate 6. Deficiency of vitamin D3 7. Thrombocytopenia 8. Diabetes mellitus type 2 (SNOMED CT 56677284) 9. Disorder of rotator cuff 10. Lumbar Radiculopathy EMG motor loss post.tib Bilat Chronic R. L5-S1 dennerv. L-S MRI 01/27 disc bulge + mild mod stenosis L3-4, 4-5.+ R.L4-5 foraminal narrowing. Schmorl's node T12 11. Diverticulitis, Colonic * 12. Gastroesophageal Reflux Disorder 13. Degenerative arthritis (SNOMED CT 624673556) 14. Mitral Valve Prolapse ECHO 01/25 EF 55-60%. AV mildly thickened. No AI/. mild LAE myxom. degen MV. mild MVP.mild-mod MR. mild TR. [id number] Echo 02/26EF60%,2-3+MR,LAE,myx. degen MV, no change fr [address] Kassidy Campbell [phone] 15. Hyperlipidaemia (SNOMED CT 51552356) 16. Benign essential hypertension (SNOMED CT 7058584) Dr Saunders 17. Obesity 18. Posttraumatic Stress Disorder 19. Panic Attacks SERVICE CONNECTED % - 80 VA and Non VA meds were reconciled with the patient who left with a corrected copy. See medication page for details. Active and Recently Outpatient Medications (excluding Supplies): Active Outpatient Medications Status 1) ACCU-CHEK GUIDE (GLUCOSE) TEST STRIP USE 1 STRIP TO ACTIVE (S) TEST BLOOD SUGARS TWO TIMES A WEEK 2) ATORVASTATIN CALCIUM 40MG TAB TAKE ONE-HALF TABLET BY ACTIVE MOUTH EVERY EVENING FOR CHOLESTEROL 3) CYANOCOBALAMIN 1000MCG TAB TAKE ONE TABLET BY MOUTH ACTIVE ONCE DAILY 4) DILTIAZEM (EQV-CARDIZEM) 180MG 24HR CAP TAKE ONE ACTIVE (S) CAPSULE BY MOUTH ONCE DAILY 5) FINASTERIDE 5MG TAB TAKE ONE TABLET BY MOUTH DAILY ACTIVE FOR PROSTATE 6) FLUTICASONE PROP 50MCG 120D NASAL INHL INSTILL 2 ACTIVE (S) SPRAYS INTO EACH NOSTRIL ONCE DAILY NEEDED FOR NASAL IRRITATION/INFLAMMATION 7) KETOCONAZOLE 2% CREAM APPLY A THIN LAYER TOPICALLY ACTIVE (S) TWICE DAILY FOR ATHLETE'S FOOT 8) METFORMIN HCL 750MG 24HR SA TAB TAKE TWO TABLETS BY ACTIVE (S) MOUTH EVERY EVENING 9) METOPROLOL SUCCINATE 25MG SA TAB TAKE ONE TABLET BY ACTIVE MOUTH TWICE DAILY FOR HEART FAILURE 10) MICONAZOLE NITRATE 2% TOP PWDR APPLY SMALL AMOUNT ACTIVE TOPICALLY TWICE DAILY FOR ATHLETE'S FOOT 11) MOMETASONE 200MCG/ACTUAT 120D ORAL INHL INHALE 2 ACTIVE PUFFS BY MOUTH TWICE DAILY FOR CONTROLLER MEDICATION FOR ASTHMA --RINSE MOUTH AFTER EACH USE 12) MONTELUKAST NA 10MG TAB TAKE ONE TABLET BY MOUTH ACTIVE EVERY EVENING FOR CONTROLLER MEDICATION FOR ASTHMA 13) OMEPRAZOLE 20MG EC CAP TAKE TWO CAPSULES BY MOUTH ACTIVE (S) DAILY FOR STOMACH ACID 14) SEMAGLUTIDE 1MG/0.75ML INJ PEN 3ML INJECT 1MG ACTIVE (S) SUBCUTANEOUSLY ONCE A WEEK FOR TYPE 2 DIABETES MELLITUS 15) TADALAFIL 5MG TAB TAKE ONE TABLET BY MOUTH ONCE DAILY ACTIVE FOR BPH 16) TERAZOSIN HCL 10MG CAP TAKE ONE CAPSULE BY MOUTH AT ACTIVE (S) BEDTIME FOR BPH 17) TRIAMCINOLONE ACETONIDE 0.1% CREAM APPLY A THIN LAYER ACTIVE TOPICALLY TWICE DAILY FOR ITCHING 18) WATER STERILE FOR IRRIGATION IRRIGATE MODERATE AMOUNT ACTIVE (S) DIRECTED ONCE DAILY FOR C-PAP MACHINE Pending Outpatient Medications Status 1) CLONAZEPAM 0.5MG TAB TAKE ONE TABLET BY MOUTH AT PENDING BEDTIME NEEDED (DO NOT TAKE WITH ALCOHOL OR ANY MEDICATIONS THAT ARE SEDATING. DO NOT DRIVE OR OPERATE MACHINERY WHILE TAKING THIS) 2) FLUTICASONE PROP 50MCG 120D NASAL INHL INSTILL 2 PENDING SPRAYS INTO EACH NOSTRIL ONCE DAILY NEEDED FOR NASAL IRRITATION/INFLAMMATION 3) METFORMIN HCL 750MG 24HR SA TAB TAKE TWO TABLETS BY PENDING MOUTH EVERY EVENING 4) OMEPRAZOLE 20MG EC CAP TAKE TWO CAPSULES BY MOUTH PENDING ONCE DAILY FOR STOMACH ACID 5) TADALAFIL 5MG TAB TAKE ONE TABLET BY MOUTH ONCE DAILY PENDING FOR BPH 6) TERAZOSIN HCL 10MG CAP TAKE ONE CAPSULE BY MOUTH AT PENDING BEDTIME FOR BPH 7) WATER STERILE FOR IRRIGATION IRRIGATE MODERATE AMOUNT PENDING DIRECTED ONCE DAILY FOR C-PAP MACHINE Inactive Outpatient Medications Status 1) CLONAZEPAM 0.5MG TAB TAKE ONE TABLET BY MOUTH AT BEDTIME NEEDED FOR PANIC DISORDER (DO NOT TAKE WITH ALCOHOL OR ANY MEDICATIONS THAT ARE SEDATING. DO NOT DRIVE OR OPERATE MACHINERY WHILE TAKING THIS) Active Non-VA Medications Status 1) Non-VA ASPIRIN 81MG EC TAB 81MG BY MOUTH ACTIVE 2) Non-VA CHOLECALCIF 25MCG (D3-1,000UNIT) TAB 25MCG BY ACTIVE MOUTH ONCE DAILY 3) Non-VA DICLOFENAC 1% GEL (EQV-VOLTAREN) GEL,TOP ACTIVE TOPICALLY 4) Non-VA OTHER CAP/TAB BUTALBITAL BY MOUTH ONCE DAILY ACTIVE NEEDED 5) Non-VA SAW PALMETTO CAP/TAB BY MOUTH ACTIVE 31 Total Medications 97.8 F [36.6 C] (07/21/2023 13:26) 53 (07/21/2023 13:26) 20 (07/21/2023 13:26) 154/74 (07/21/2023 13:26) 0 (04/28/2023 14:11) 70 in [177.8 cm] (01/03/2022 10:15) 238.8 lb [108.32 kg] (07/21/2023 13:26) BMI: 34.3 Neuro: Alert and oriented times three, grossly nonfocal, nasolabial folds intact. Thyroid nonpalpable. Cor: Regular rate and rhythm, normal s1 and 2 without Murmur, carotid bruits or pedal edema. Lungs; Clear to auscultation bilaterally. Recent labs reviewed with patient today: /lisa/ Chito Medrano PA-C STAFF PHYSICIAN ELECTRICAL WIRER Signed: 07/21/2023 14:28 07/21/2023 ADDENDUM STATUS: COMPLETED His reports sending shot info in an this winter. If needed, message her and she will send again OR have him carry it up. Enter in chart. /mumtaz Medrano PA-C STAFF PHYSICIAN ELECTRICAL WIRER Signed: 07/21/2023 15:17 Receipt Acknowledged By: * AWAITING SIGNATURE * AISHA SANDERS WILLIAM F [facility] Jul 21, 2023 02:15 PM ACCOUNTING OF DISCLOSURES NOTE: LOCAL TITLE: STATE PRESCRIPTION DRUG MONITORING PROGRAM STANDARD TITLE: ACCOUNTING OF DISCLOSURES NOTE DATE OF NOTE: JUL 21, 2023@14:15:05 ENTRY DATE: JUL 21, 2023@14:15:05 AUTHOR: CHITO MEDRANO EXP COSIGNER: URGENCY: STATUS: COMPLETED This PDMP query was submitted by Chito Medrano. The clinical justification for this PDMP query is to review controlled substances prescribed outside of the [facility], and any additional information that may become available, as an important component of standard clinical care, and in accordance with [facility] policy. Patient information was shared with the PDMP [employer] [place]. Prescription(s) filled outside the [facility] in the last 90 days are noted. However, they do not raise significant safety concerns and do not influence the treatment plan at this time. 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 [employer] [id number] The (1573) 0/0 Comm Ins [place] 06/18/2023 1 06/17/2023 Clonazepam 0.5 Mg Tablet 30.00 30 Ra Cla [id number] [place] (4904[place] 0/0 /[place] 02/07/2023 2 02/07/2023 Hydrocodone-Acetamin 5-325 Mg 42.00 7 Ta Meu [id number] The (1573) 0/0 30.00 MME Comm Ins [place] 10/03/2022 1 07/25/2022 Clonazepam 0.5 Mg Tablet 30.00 30 An Peter [id number] [place] (5614) 1 /[place] 07/26/2022 1 07/25/2022 Clonazepam 0.5 Mg Tablet 30.00 30 An Peter [id number] [place] (5614) 0 /[place] /lisa/ Chito Medrano PA-C STAFF PHYSICIAN ELECTRICAL WIRER Signed: 07/21/2023 14:25 CHITO MEDRANO [place] [facility] Jul 21, 2023 01:33 PM PREVENTIVE MEDICINE NURSING NOTE: LOCAL TITLE: CLINICAL REMINDERS/NURSING STANDARD TITLE: PREVENTIVE MEDICINE NURSING NOTE DATE OF NOTE: JUL 21, 2023@13:33 ENTRY DATE: JUL 21, 2023@13:33:25 AUTHOR: AISHA SANDERS EXP COSIGNER: URGENCY: STATUS: COMPLETED Suicide Screen: C-SSRS Screening [place] Suicide Severity Rating Scale (C-SSRS) screener 1. Over the past month, have you wished you were or wished you could go to sleep and not wake up? No 2. Over the past month, have you had any actual thoughts of killing yourself? No 3. Over the past month, have you been thinking about how you might do this? Response not required due to responses to other questions. 4. Over the past month, have you had these thoughts and had some intention of acting on them? Response not required due to responses to other questions. 5. Over the past month, have you started to work out or worked out the details of how to kill yourself? Response not required due to responses to other questions. 6. If yes, at any time in the past month did you intend to carry out this plan? Response not required due to responses to other questions. 7. In your lifetime, have you ever done anything, started to do anything, or prepared to do anything to end your life (for example, collected pills, obtained a gun, gave away valuables, went to the roof but didn't jump)? No 8. If YES, was this within the past 3 months? Response not required due to responses to other questions. Homelessness/Food Insecurity Screen: In the past 2 months, have you been living in stable housing that you own, rent, or stay in as part of a household? Yes - Living in stable housing. Are you worried or concerned that in the next 2 months you may NOT have stable housing that you own, rent, or stay in as part of a household? No - Not worried about housing near future The [place] reports the following: Within the past 12 months, you worried whether your food would run out before you got money to buy more. Never true Within the past 12 months, the food you bought just didn't last and you didn't have money to get more. Never true Depression Screening: Perform PHQ-2 A PHQ-2 screen was performed. The score was 0 which is a negative screen for depression. Over the past two weeks, how often have you been bothered by the following problems? 1. Little interest or pleasure in doing things Not at all 2. Feeling down, depressed, or hopeless Not at all Tobacco Use Screening: The patient is a former tobacco user. The patient quit fifteen or more years ago. Alcohol Use Screen (AUDIT-C): Alcohol Screen: SCREEN FOR ALCOHOL (AUDIT-C) An alcohol screening test (AUDIT-C) was negative (score=1). 1. How often did you have a drink containing alcohol in the past year? Consider a drink to be a 12 ounce can or bottle of regular beer, 8 ounces of malt liquor, a 5 ounce glass of table wine, or a 1.5 ounce shot of liquor (like scotch, gin, or vodka). Monthly or less 2. How many drinks containing alcohol did you have on a typical day when you were drinking in the past year? One or two drinks 3. How often did you have six or more drinks on one occasion in the past year? Never RHS Screen: RHS Screen Session Format: Face to Face Environmental Check Upon inquiry, the individual reports that the environment is safe to proceed. Informed Consent to Screen and Document The individual consents to proceed with screening. The individual consents to documentation of responses. PRIMARY SCREEN: In the past 12 months, how often did a current or former intimate partner (e.g., boyfriend, girlfriend, , , sexual partner): 1. Scream or curse at you Never 2. Insult or talk down to you Never 3. Threaten you with harm Never 4. Physically hurt you Never 5. Force or pressure you to have sexual contact against your will, or when you were unable to say no Never ?? The HITS tool (items 1-4 above) is [place] copyright protected by Maurice Cardona MD, and the user has full rights to use it throughout the [place] system. PRIMARY SCREEN RESULT: The Primary Screen is NEGATIVE. The individual answered never to all forms of IPV above (i.e., answered never to all 5 items) The individual accepts education and/or resources: Other: N/A EDUCATION: The individual indicated readiness to learn. Education offered during this session as noted above. The individual indicated understanding by asking relevant questions and making appropriate comments. No barriers to learning were observed or identified. /lisa/ AISHA SANDERS, RN REGISTERED NURSE Signed: 07/21/2023 13:47 [facility]ANDERS [place] [facility]
--- OUTSIDE RECORDS SUMMARY | 2024-05-10 07:26 | XMS_ITS | Encounter Summary ---
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 [facility] [place] Address [address] [place] [id number] Care Team Providers Care Stone Driller Helper Name Role Phone CHITO SEGURA Primary Care [...] PART A Feb 16, 2018 PART A [id number] YENNY OVIEDO ES PATIENT MEDICARE (WNR) MEDICARE (M) PART B Feb 16, 2018 PART B [id number] YENNY OVIEDO ES PATIENT MEDICARE (WNR) MEDICARE (M) PART A Oct 17, 2006 PART A [id number] [facility] YENNY OVIEDO PATIENT FOR LIFE TFL* Apr 06, 2018 [id number] YENNY OVIEDO PATIENT Selected Encounter This section includes the information on record at [place] for the Encounter. Date/Time Encounter Type Encounter Description Reason Provider Source Jul 24, 2023 08:30 AM THERAPEUTIC EXERCISES OCCUPATIONAL THERAPY ICD-10-CM M25.312 Other instability, left shoulder MACHON,NAN E IHE Encounter Template Text not used by [place] Assessments - Encounter Diagnoses This section includes the primary and secondary diagnoses documented for the Encounter. Date/Time Primary/Secondary Diagnosis Diagnosis Name Provider Source Jul 24, 2023 12:14 PM PRIMARY Other instability, left shoulder MACHON,NAN E [facility] [place] [facility] Plan of Treatment: Future Appointments (+ 6 months) and Future Tests (+/- 45 days) The Plan of Treatment section includes future care activities for the patient from all [facility]. This section includes future appointments and future orders which are active, pending or scheduled. Future Appointments This section includes appointments that were scheduled to occur 6 months from the date of the Encounter, up to a maximum of 20 appointments. The data comes from all [place] treatment facilities. Appointment Date/Time Appointment Type Appointme nt Facility Name Jul 31, 2023 08:30 AM AMBULATORY - [facility] [place] [facility] Aug 04, 2023 08:00 AM [facility] Aug 04, 2023 08:30 AM [facility] Aug 06, 2023 09:00 AM AMBULATORY - [facility] MEDICIN [facility] [place] [facility] Aug 20, 2023 08:30 AM AMBULATORY - [facility]HAB MEDICIN E [facility] [place] [facility] Aug 26, 2023 09:00 AM AMBULATORY - RE[facility]AB MEDICIN [facility] [place] [facility] Sep 01, 2023 09:00 AM AMBULATORY - RE[facility]AB MEDICIN [facility] [place] [facility] Sep 09, 2023 08:00 AM [facility] [place] [facility] Sep 15, 2023 09:00 AM AMBULATORY - REHAB MEDICIN [facility] [place] [facility] September 22, 2023 09:00 AM AMBULATORY - REHAB MEDICIN E [facility] [place] [facility] September 29, 2023 08:00 AM [facility] September 29, 2023 08:30 AM [facility]ORY [facility] October 01, 2023 09:00 AM AMBULATORY - REHAB MEDICIN [facility] [place] [facility] October 07, 2023 02:30 PM AMBULATORY - REHAB MEDICIN E [facility] [place] [facility] October 16, 2023 07:30 AM AMBULATORY - REHAB MEDICIN E [facility] [place] [facility] Nov 03, 2023 07:30 AM AMBULATORY - REHAB MEDICIN [facility] [place] [facility] Nov 06, 2023 11:00 AM [facility] [place] [facility] Nov 10, 2023 07:30 AM AMBULATORY - REHAB MEDICIN E [facility] [place] [facility] Nov 18, 2023 11:00 AM AMBULATORY - NONE [facility] [place] [facility] Nov 27, 2023 07:15 AM AMBULATORY - NONE [facility] [place] [facility] Lab Results: +/- 30 days of the encounter This section includes the Chemistry and Hematology Lab Results on record with [place] for the patient. Radiology Reports and Pathology Reports are provided separately, in subsequent sections. Lab Results This section contains the Chemistry/Hematology Results that were resulted 30 days before or 30 daysafter the date of the Encounter. Date/Time Source Result Type Result - Unit Interpretation Reference Range Comment Jul 17, 2023 07:35 AM [facility] HEMOGLOBIN A1C PANEL Specimen Type: BLOOD [...] Apr 28, 2023 03:05 PM Reporting Lab: [facility] [address] [facility] [address] Performing Lab: [facility] [address] [address] HEMOGLOBIN A1C 6.5 H 4.0-5.6 Jul 17, 2023 07:35 AM [facility] BASIC METABOLIC PANEL (fasting) Specimen Type: SERUM No comment entered. Ordering Provider: AYUSH SEGURAM F Report Released Date/Time: Apr 28, 2023 03:05 PM Reporting Lab: [facility] [address] [facility] [address] Performing Lab: [address] [address] UREA NITROGEN 14 mg/dL 7-25 GLUCOSE 128 mg/dL H 65-100 SODIUM 142 mmol/L 135-145 POTASSIUM 3.9 mmol/L 3.5-5.0 CHLORIDE 107 mmol/L 100-110 CO2 24 meq/L 20-30 CREATININE, Serum 0.69 mg/dL 0.50-1.40 eGFR(CKD-EPI 2020) >90 mL/min >60 Jul 17, 2023 07:35 AM [facility] VITAMIN B12 Specimen Type: SERUM No comment entered. Ordering Provider: AYUSH SEGURAM F Report Released Date/Time: Apr 28, 2023 03:05 PM Reporting Lab: [address] [address] Performing Lab: [address] [address] VITAMIN B12 643 pg/mL 200-900 Jul 17, 2023 07:35 AM [facility] LIVER FUNCTION Specimen Type: SERUM No comment entered. Ordering Provider: AYUSH SEGURA F Report Released Date/Time: Apr 28, 2023 03:05 PM Reporting Lab: [address] [address] Performing Lab: [address] [address] PROTEIN,TOTAL 6.2 g/dL 6.0-8.3 ALBUMIN 3.7 g/dL 3.5-5.0 ALKALINE PHOSPHATASE 35 U/L L 40-150 AST 12 U/L 5-34 ALT 13 U/L BILIRUBIN, TOTAL 0.8 mg/dL 0.2-1.2 Jul 17, 2023 07:35 AM [facility] MICROALBUMIN CREATININE RATIO PANEL Specimen Type: URINE No comment entered. Ordering Provider: AYUSH SEGURA F Report Released Date/Time: Apr 28, 2023 03:05 PM Reporting Lab: [facility] [address] [facility] [address] Performing Lab: [address] [address] MICROALBUMIN/C REATININE RATIO 37.0 mg/g H 0-29.9 MICROALBUMIN,Q UANTITATIVE 3.4 mg/dL RR UNAVAIL CREATININE URINE 91.89 mg/dL Jul 17, 2023 07:35 AM [facility] LIPID PANEL FASTING Specimen Type: SERUM No comment entered. Ordering Provider: AYUSH SEGURA F Report Released Date/Time: Apr 28, 2023 03:05 PM Reporting Lab: [address] [address] Performing Lab: [address] [address] CHOLESTEROL 118 mg/dL TRIGLYCERIDE 107 mg/dL 0-150 LDL calculated 58 mg/dL 0-129 CHOL/HDL 3.0 HDL CHOLESTEROL 39 mg/dL L 40-60 Social History: Smoking Status (Most current) and Tobacco Use (All prior to encounter date) This section includes the most current, and the historical, smoking and tobacco- related health factors from the [place] facility where the Encounter took place. Current Smoking Status This section includes the most current smoking, or tobacco-related health factor, from the [place] facility where the Encounter took place. Date/Time Current Smoking Status Comment Facil ity Jul 21, 2023 01:30 PM VA-TOBACCO FORMER USER [facility] Tobacco Use History This section includes a history of the smoking, or tobacco-related health factors, that were collected on or before the date of the Encounter. The data comes from the [place] facility where the Encounter took place. Date/Time Smoking Status/Tobacco Use Comment F acsophia Jul 21, 2023 01:30 PM VA-TOBACCO QUIT 15 YRS OR MORE [facility] Mar 28, 2021 03:28 PM VA-TOBACCO FORMER USER [facility] [place] [facility] Mar 28, 2021 03:28 PM VA-TOBACCO QUIT 15 YRS OR MORE [facility] [place] [facility] Dec 02, 2019 09:36 AM VA-TOBACCO NEVER USED [facility] [place] [facility] Apr 23, 2005 10:19 AM QUIT TOBACCO USE IN PAST YEAR [facility] [place] [facility] Advance Directives: All historical and current Section Date Range: From patient's date of to the date document was created. This section includes ALL of a patient's completed or amended [place] Advance and Rescinded Directives. The entries below indicate that a directive exists for the patient, but an actual copy is not included with this document. The data comes from all [place] facilities. Date Advance Directives Provider Source Dec 16, 2011 ADVANCE DIRECTIVE DISCUSSION MARGARITA TERRA[facility] [place] Encounter Notes: All associated encounter notes This section contains the clinical notes associated to the Encounter. 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 Special instructions: passive/active ROM and gentle therabands. DOS: 02/08/2024 23 weeks 6 days post-op SUBJECTIVE: Pt reports that he did take a break from the exercises and he feels it is better. He's wondering if it was just some inflammation in there. Pain Level: 2-3/10 OBJECTIVE: THERAPEUTIC EXERCISE: *UBE 2' forward, 2' backward 2.0 *hiram into flexion, w/ 10 second hold on L, x10 *wall walk into flexion, 34x5 *wall walk into scaption, 34x5 *supine shoulder flexion, 1x10 *supine chest press, 1x10 ADDED: *biceps curls w/ 2# weight, 2x10 Access Code: [email or web address] URL: [email or web address] Date: 07/24/2023 Prepared by: JORDAN [facility] Exercises - Supine Shoulder Flexion AAROM with Dowel - 1 x daily - 7 x weekly - 3 sets - 10 reps - Supine Shoulder Press - 1 x daily - 7 x weekly - 3 sets - 10 reps - Shoulder Extension with Resistance - 1 x daily - 7 x weekly - 3 sets - 10 reps - Standing Bilateral Low Shoulder Row with Anchored Resistance - 1 x daily - 7 x weekly - 3 sets - 10 reps - Standing Shoulder Flexion Wall Walk - 1 x daily - 7 x weekly - 3 sets - 10 reps - Standing Shoulder Abduction Finger Walk at Wall - 1 x daily - 7 x weekly - 3 sets - 10 reps - Seated Elbow Flexion with Dumbbells - 1 x daily - 7 x weekly - 3 sets - 10 reps MINUTES: 14 MANUAL THERAPY: *mobilization to anterior shoulder musculature, supine MINUTES: 10 THERAPEUTIC DYNAMIC ACTIVITIES: MINUTES: NEUROMUSCULAR EDUCATION: MINUTES: OTHER: MINUTES: MODALITIES: *MHP to L shoulder prior to tx MINUTES: 3 [] Contraindication screen completed prior to modality [] Skin intact pre/post SELF CARE/EDUCATION: MINUTES: Patient education was provided for all aspects of care during this clinical encounter. ASSESSMENT: pt tolerated tx well this date. decreased intensity of HEP. pt engaged in therapy at comfort level. during mobilization, ttp and tightness noted throughout anterior shoulder musculature. AROM tested; full shoulder flexion, slightly decreased shoulder abduction. pt reported feeling good following tx. PLAN: continue w/ OT POC; modify tx as needed. progress w/ HEP as tolerated. pt is in agreement w/ this POC. /lisa/ Nan Pike, MS OTR/[place], CHT Occupational Therapist Signed: 07/24/2023 12:14 NAN PIKE [facility] [place] [facility]
--- OUTSIDE RECORDS SUMMARY | 2024-05-10 07:26 | XMS_ITS ---
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 [place] [facility] [place] Address [address] [place] [id number] Care Team Providers Care Manager Organizational Name Role Phone CHITO SEGURA Primary Care [...] PART A Feb 16, 2018 PART A [id number] YENNY OVIEDO ES PATIENT MEDICARE (WNR) MEDICARE (M) PART B Feb 16, 2018 PART B [id number] YENNY OVIEDO ES PATIENT MEDICARE (WNR) MEDICARE (M) PART A Oct 17, 2006 PART A [id number] YENNY OVIEDO PATIENT FOR LIFE TFL* Apr 06, 2018 [id number] YENNY OVIEDO PATIENT Selected Encounter This section includes the information on record at [place] for the Encounter. Date/Time Encounter Type Encounter Description Reason Provider Source Aug 06, 2023 09:00 AM THERAPEUTIC EXERCISES OCCUPATIONAL THERAPY ICD-10-CM M25.312 Other instability, left shoulder MACHON,NAN E IHE Encounter Template Text not used by [place] Assessments - Encounter Diagnoses This section includes the primary and secondary diagnoses documented for the Encounter. Date/Time Primary/Secondary Diagnosis Diagnosis Name Provider Source Aug 06, 2023 11:52 AM PRIMARY Other instability, left shoulder MACHON,NAN E [place] [facility] [place] [facility] Plan of Treatment: Future Appointments (+ 6 months) and Future Tests (+/- 45 days) The Plan of Treatment section includes future care activities for the patient from all [place] treatmentfacilities. This section includes future appointments and [...] REHAB MEDICIN E [facility] [place] [facility] Aug 26, 2023 09:00 AM AMBULATORY - REHAB MEDICIN E [facility] [place] [facility] Sep 01, 2023 09:00 AM AMBULATORY - REHAB MEDICIN E [facility] [place] [facility] Sep 09, 2023 08:00 AM AMBULATORY - MEDICINE [facility] [place] [facility] Sep 15, 2023 09:00 AM AMBULATORY - REHAB MEDICIN E [facility] [place] [facility] September 22, 2023 09:00 AM AMBULATORY - REHAB MEDICIN E [facility] [place] [facility] September 29, 2023 08:00 AM [facility]ORY [facility] MEDICINE [facility] September 29, 2023 08:30 AM [facility] October 01, 2023 09:00 AM AMBULATORY - REHAB MEDICIN E [facility] [place] [facility] October 07, 2023 02:30 PM AMBULATORY - REHAB MEDICIN E [facility] [place] [facility] October 16, 2023 07:30 AM AMBULATORY - REHAB MEDICIN E [facility] [place] [facility] Nov 03, 2023 07:30 AM AMBULATORY - REHAB MEDICIN E [facility] [place] [facility] Nov 06, 2023 11:00 AM AMBULATORY - MEDICINE [facility] [place] [facility] Nov 10, 2023 07:30 AM AMBULATORY - REHAB MEDICIN E [facility] [place] [facility] Nov 18, 2023 11:00 AM AMBULATORY - NONE [facility] [place] [facility] Nov 27, 2023 07:15 AM AMBULATORY - NONE [facility] [place] [facility] Nov 27, 2023 07:45 AM AMBULATORY - NONE [facility] [place] [facility] Dec 01, 2023 08:00 AM AMBULATORY - MEDICINE [facility] [place] Jan 12, 2024 11:25 AM AMBULATORY - MEDICINE [place] [facility] [place] [facility] Jan 12, 2024 11:40 AM [facility] Lab Results: +/- 30 days of the [...] Jul 17, 2023 07:35 AM [facility] HEMOGLOBIN A1C PANEL Specimen Type: BLOOD [...] 2023 03:05 PM Reporting Lab: [facility] [address] [facility] [address] Performing Lab: [facility] [address] [address] HEMOGLOBIN A1C 6.5 H 4.0-5.6 Jul 17, 2023 07:35 AM [facility] LIVER FUNCTION Specimen Type: SERUM No comment entered. Ordering Provider: AYUSH SEGURA F Report Released Date/Time: Apr 28, 2023 03:05 PM Reporting Lab: [facility] [address] [facility] [address] Performing Lab: [address] [address] PROTEIN,TOTAL 6.2 g/dL 6.0-8.3 ALBUMIN 3.7 g/dL 3.5-5.0 ALKALINE PHOSPHATASE 35 U/L L 40-150 AST 12 U/L 5-34 ALT 13 U/L BILIRUBIN, TOTAL 0.8 mg/dL 0.2-1.2 Jul 17, 2023 07:35 AM [facility] BASIC METABOLIC PANEL (fasting) Specimen Type: SERUM No comment entered. Ordering Provider: AYUSH SEGURA F Report Released Date/Time: Apr 28, 2023 03:05 PM Reporting Lab: [facility] [address] [facility] [address] Performing Lab: [address] [address] UREA NITROGEN 14 mg/dL 7-25 GLUCOSE 128 mg/dL H 65-100 SODIUM 142 mmol/L 135-145 POTASSIUM 3.9 mmol/L 3.5-5.0 CHLORIDE 107 mmol/L 100-110 CO2 24 meq/L 20-30 CREATININE, Serum 0.69 mg/dL 0.50-1.40 eGFR(CKD-EPI 2020) >90 mL/min >60 Jul 17, 2023 07:35 AM [facility] VITAMIN B12 Specimen Type: SERUM No comment entered. Ordering Provider: AYUSH SEGURA F Report Released Date/Time: Apr 28, 2023 03:05 PM Reporting Lab: [facility] [address] [facility] [address] Performing Lab: [address] [address] VITAMIN B12 643 pg/mL 200-900 Jul 17, 2023 07:35 AM [facility] MICROALBUMIN CREATININE RATIO PANEL Specimen Type: URINE No comment entered. Ordering Provider: AYUSH SEGURA F Report Released Date/Time: Apr 28, 2023 03:05 PM Reporting Lab: [facility] [address] [facility] [address] Performing Lab: [address] [address] MICROALBUMIN/C REATININE RATIO 37.0 mg/g H 0-29.9 MICROALBUMIN,Q UANTITATIVE 3.4 mg/dL RR UNAVAIL CREATININE URINE 91.89 mg/dL Jul 17, 2023 07:35 AM [facility] LIPID PANEL FASTING Specimen Type: SERUM No comment entered. Ordering Provider: AYUSH SEGURA F Report Released Date/Time: Apr 28, 2023 03:05 PM Reporting Lab: [address] [address] Performing Lab: [address] [address] CHOLESTEROL 118 mg/dL TRIGLYCERIDE 107 mg/dL 0-150 [...] 21, 2023 01:30 PM VA-TOBACCO FORMER USER [facility] Tobacco Use History This section includes a history of the smoking, or tobacco-related health factors, that were collected on or before the date of the Encounter. The data comes from the [place] facility where the Encounter took place. Date/Time Smoking Status/Tobacco Use Comment F acsophia Jul 21, 2023 01:30 PM VA-TOBACCO QUIT 15 YRS OR MORE [facility] Mar 28, 2021 03:28 PM VA-TOBACCO FORMER USER [place] [facility] [place] [facility] Mar 28, 2021 03:28 PM VA-TOBACCO QUIT 15 YRS OR MORE [place] [facility] [place] [facility] Dec 02, 2019 09:36 AM VA-TOBACCO NEVER USED [place] [facility] [place] [facility] Apr 23, 2005 10:19 AM QUIT TOBACCO USE IN PAST YEAR [place] [facility] [place] [facility] Advance Directives: All historical and current Section [...] 16, 2011 ADVANCE DIRECTIVE DISCUSSION MARGARITA TERRAZAS [place] Encounter Notes: All associated encounter notes This section contains the clinical notes associated to the Encounter. 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 Special instructions: passive/active ROM and gentle therabands. DOS: 02/08/2024 25 weeks 5 days post-op SUBJECTIVE: Pt reports that since he has laid off of the exercises it has improved, but it's still cracking. Pain Level: 2-07/26 OBJECTIVE: AROM: 05/27: Shoulder: [R] [L] 07/04: [L] 08/05: [L] Flexion: WNL 99* 120 148* Abduction: WNL 76* 84 115* IR: WNL L4 L4 L4 ER: WNL C5 C7 C7 *discomfort noted w/ flexion/abduction THERAPEUTIC EXERCISE: *UBE 2' forward, 2' backward 2.0 *hiram into flexion, w/ 10 second hold on L, x10 *wall walk into flexion, 34x5 *wall walk into scaption, 34x5 *wall slides into flexion, 1x10 ON HOLD: *IR iso's against wall, 5 second hold x5-HOLD *shoulder flexion iso's against wall, 5 second hold x5-HOLD *trialed ER iso's against wall-pt reported increased pain-HOLD Access Code: [email or web address] URL: [email or web address] Date: 07/31/2023 Prepared by: JORDAN [facility] Exercises - Supine Shoulder Flexion AAROM with [...] 3 sets - 10 reps - Standing Isometric Shoulder Internal Rotation at Doorway - 1 x daily - 7 x weekly - 3 sets - 5 reps - 5 hold - Isometric Shoulder Flexion at Wall - 1 x daily - 7 x weekly - 3 sets - 5 reps - 5 hold MINUTES: 15 MANUAL THERAPY: *mobilization to anterior shoulder musculature/biceps musculature, supine MINUTES: 10 THERAPEUTIC DYNAMIC ACTIVITIES: MINUTES: NEUROMUSCULAR EDUCATION: MINUTES: OTHER: MINUTES: MODALITIES: *MHP to L shoulder prior to tx MINUTES: 3 [] Contraindication screen completed prior to modality [] Skin intact pre/post SELF CARE/EDUCATION: MINUTES: Patient education was provided for all aspects of care during this clinical encounter. ASSESSMENT: pt tolerated tx well this date. he does report his shoulder is still sore and still popping. it had started popping w/ isometrics as well. trialed all AAROM w/o increased discomfort. some snapping noted but not bad at all. during mobilization, max ttp and tightness noted specifically over biceps musculature. the pt noted that this mimicked the pain he has been experiencing. PLAN: continue w/ OT POC; modify tx as needed. progress w/ HEP as tolerated. pt is in agreement w/ this POC. /lisa/ Nan Pike, MS OTR/L, CHT Occupational Therapist Signed: 08/06/2023 11:52 NAN PIKE [facility] [place] [facility]
--- OUTSIDE RECORDS SUMMARY | 2024-05-10 07:26 | XMS_ITS | Encounter Summary ---
Author Name [facility] [place] [facility] Address [address] [place] [id number] Care Team Providers Care Sequins Spooler Name Role Phone CHITO SEGURA Primary Care [...] PART A Feb 16, 2018 PART A [id number] YENNY OVIEDO LISA PATIENT MEDICARE (WNR) MEDICARE (M) PART B Feb 16, 2018 PART B [id number] YENNY OVIEDO LISA PATIENT MEDICARE (WNR) MEDICARE (M) PART A Oct 17, 2006 PART A [id number] YENNY OVIEDO LISA PATIENT FOR LIFE TFL* Apr 06, 2018 [id number] YENNY OVIEDO PATIENT Selected Encounter This section includes the information on record at [place] for the Encounter. Date/Time Encounter Type Encounter Description Reason Provider Source Aug 04, 2023 08:30 AM MTMS BY PHARM ADDL 15 MIN CLINICAL PHARMACY ICD-10-CM E11.8 Type 2 diabetes mellitus with unspecified complications JONAH SANCHEZ Ayah Encounter Template Text not used by [place] Assessments - Encounter Diagnoses This section includes the primary and secondary diagnoses documented for the Encounter. Date/Time Primary/Secondary Diagnosis Diagnosis Name Provider Source Aug 04, 2023 08:49 AM PRIMARY Type 2 diabetes mellitus with unspecified complications JONAH SANCHEZ DOERUN Plan of Treatment: Future Appointments (+ 6 months) and Future Tests (+/- 45 days) The Plan of Treatment section includes future care activities for the patient from all [place] [facility]. This section includes future appointments and future orders which are active, pending or scheduled. Future Appointments This section includes appointments that were scheduled to occur 6 months from the date of the Encounter, up to a maximum of 20 appointments. The data comes from all [place] treatment facilities. Appointment Date/Time Appointment Type Appointme nt Facility Name Aug 06, 2023 09:00 AM [facility] Aug 20, 2023 08:30 AM AMBULATORY [facility] Aug 26, 2023 09:00 AM AMBULATORY - [facility] Sep 01, 2023 09:00 AM AMBULATORY - [facility] Sep 09, 2023 08:00 AM [facility] Sep 15, 2023 09:00 AM AMBULATORY - [facility] September 22, 2023 09:00 AM AMBULATORY - [facility] September 29, 2023 08:00 AM [facility] September 29, 2023 08:30 AM [facility] October 01, 2023 09:00 AM AMBULATORY [facility] October 07, 2023 02:30 PM AMBULATORY - [facility] October 16, 2023 07:30 AM AMBULATORY - [facility] Nov 03, 2023 07:30 AM AMBULATORY - [facility] Nov 06, 2023 11:00 AM [facility] Nov 10, 2023 07:30 AM AMBULATORY [facility] Nov 18, 2023 11:00 AM AMBULATORY - NONE [facility] Nov 27, 2023 07:15 AM AMBULATORY - NONE [facility] Nov 27, 2023 07:45 AM AMBULATORY - NONE [facility] Dec 01, 2023 08:00 AM [facility] Jan 12, 2024 11:25 AM [facility] Lab Results: +/- 30 days of the encounter This section includes the Chemistry and Hematology Lab Results on record with [place] for the patient. Radiology Reports and Pathology Reports are provided separately, in subsequent sections. Lab Results This section contains the Chemistry/Hematology Results that were resulted 30 days before or 30 daysafter the date of the Encounter. Date/Time Source Result Type Result - Unit Interpretation Reference Range Comment Jul 17, 2023 07:35 AM [facility] HEMOGLOBIN A1C PANEL Specimen Type: BLOOD Comment: [...] Apr 28, 2023 03:05 PM Reporting Lab: [facility] [address] [facility] [address] Performing Lab: [facility] [address] [address] HEMOGLOBIN A1C 6.5 H 4.0-5.6 Jul 17, 2023 07:35 AM [facility] LIVER FUNCTION Specimen Type: SERUM No comment entered. Ordering Provider: AYUSH SEGURA F Report Released Date/Time: Apr 28, 2023 03:05 PM Reporting Lab: [facility] [address] [facility] [address] Performing Lab: [address] [address] PROTEIN,TOTAL 6.2 g/dL 6.0-8.3 ALBUMIN 3.7 g/dL 3.5-5.0 ALKALINE PHOSPHATASE 35 U/L L 40-150 AST 12 U/L 5-34 ALT 13 U/L BILIRUBIN, TOTAL 0.8 mg/dL 0.2-1.2 Jul 17, 2023 07:35 AM [facility] BASIC METABOLIC PANEL (fasting) Specimen Type: SERUM No comment entered. Ordering Provider: AYUSH SEGURAM F Report Released Date/Time: Apr 28, 2023 03:05 PM Reporting Lab: [facility] [address] [facility] [address] Performing Lab: [address] [address] UREA NITROGEN 14 mg/dL 7-25 GLUCOSE 128 mg/dL H 65-100 SODIUM 142 mmol/L 135-145 POTASSIUM 3.9 mmol/L 3.5-5.0 CHLORIDE 107 mmol/L 100-110 CO2 24 meq/L 20-30 CREATININE, Serum 0.69 mg/dL 0.50-1.40 eGFR(CKD-EPI 2020) >90 mL/min >60 Jul 17, 2023 07:35 AM [facility] VITAMIN B12 Specimen Type: SERUM No comment entered. Ordering Provider: AYUSH SEGURA F Report Released Date/Time: Apr 28, 2023 03:05 PM Reporting Lab: [address] [address] Performing Lab: [address] [address] VITAMIN B12 643 pg/mL 200-900 Jul 17, 2023 07:35 AM [facility] MICROALBUMIN CREATININE RATIO PANEL Specimen Type: URINE No comment entered. Ordering Provider: AYUSH SEGURA Report Released Date/Time: Apr 28, 2023 03:05 PM Reporting Lab: [facility] [address] [facility] [address] Performing Lab: [address] [address] MICROALBUMIN/C REATININE RATIO 37.0 mg/g H 0-29.9 MICROALBUMIN,Q UANTITATIVE 3.4 mg/dL RR UNAVAIL CREATININE URINE 91.89 mg/dL Jul 17, 2023 07:35 AM [facility] LIPID PANEL FASTING Specimen Type: SERUM No comment entered. Ordering Provider: AYUSH SEGURA Report Released Date/Time: Apr 28, 2023 03:05 PM Reporting Lab: [address] [address] Performing Lab: [address] [address] CHOLESTEROL 118 mg/dL TRIGLYCERIDE 107 mg/dL 0-150 LDL calculated 58 mg/dL 0-129 CHOL/HDL 3.0 HDL CHOLESTEROL 39 mg/dL L 40-60 Social History: Smoking Status (Most current) and Tobacco Use (All prior to encounter date) This section includes the most current, and the historical, smoking and tobacco- related health factors from the [place] facility where the Encounter took place. Current Smoking Status This section includes the most current smoking, or tobacco-related health factor, from the [place] facility where the Encounter took place. Date/Time Current Smoking Status Comment Ginger ellis Jul 22, 2022 10:00 AM [place]-TOBACCO QU[place] 15 YRS OR MORE DOERUN Tobacco Use History This section includes a history of the smoking, or tobacco-related health factors, that were collected on or before the date of the Encounter. The data comes from the [place] facility where the Encounter took place. Date/Time Smoking Status/Tobacco Use Comment Wilberto holbrook Jul 22, 2022 10:00 AM [place]-TOBACCO QUIT 15 YRS OR MORE DOERUN Dec 02, 2018 09:23 AM [place]-TOBACCO FORMER USER DOERUN Dec 02, 2018 09:23 AM VA-TOBACCO QUIT 15 YRS OR MORE DOERUN Apr 20, 2018 10:23 AM VA-TOBACCO FORMER USER DOERUN Apr 20, 2018 10:23 AM VA-TOBACCO QUIT 15 YRS OR MORE DOERUN Dec 16, 2016 08:40 AM QUIT TOBACCO USE > 7 YEARS AGO DOERUN Jul 17, 2015 08:14 AM QUIT TOBACCO USE > 7 YEARS AGO quit many yrs ago DOERUN Aug 04, 2009 08:22 AM QUIT TOBACCO USE > 7 YEARS AGO quit over ten years ago DOERUN Dec 03, 2007 02:22 PM QUIT TOBACCO USE 1 -7 YEARS AGO DOERUN May 21, 2007 08:03 AM QUIT TOBACCO USE 1 -7 YEARS AGO DOERUN Jul 25, 2004 09:38 AM CURRENT SMOKER Smokes about 10 cigarettes/day, and trying to quit on his own DOERUN Apr 27, 2004 01:32 PM LIFETIME NON-TOBACCO USER DOERUN Advance Directives: All historical and current Section Date Range: From patient's date of to the date document was created. This section includes ALL of a patient's completed or amended [place] Advance and Rescinded Directives. The entries below indicate that a directive exists for the patient, but an actual copy is not included with this document. The data comes from all [facility]. Date Advance Directives Provider Source Dec 16, 2011 ADVANCE DIRECTIVE DISCUSSION MARGARITA TERRAZAS DOERUN Encounter Notes: All associated encounter notes This section contains the clinical notes associated to the Encounter. Date/Time Encounter Note(s) Provider Source Aug 04, 2023 08:25 AM PHARMACY OUTPATIEN T NOTE: LOCAL TITLE: PHARMACY CLINIC NOTE STANDARD TITLE: PHARMACY OUTPATIENT NOTE DATE OF NOTE: AUG 04, 2023@08:25 ENTRY DATE: AUG 04, 2023@08:25:58 AUTHOR: JONAH SANCHEZ COSIGNER: URGENCY: STATUS: COMPLETED Known Allergies: NONSTEROIDAL ANTI-INFLAMMATORY, PENICILLIN, ROCEPHIN, POVIDONE IODINE, PHISOHEX THIMEROSAL, PAXIL, PINEAPPLES, MONOSODIUM GLUTAMATE, MELONS, LISINOPRIL TAMSULOSIN Minesh MARSHA presented for follow-up for diabetes management treatment. Subjective: presents to clinic today with . Notes he is doing well; early riser (4am) and walks 3 miles every morning. Notes weight loss is slow, but has had >10lb weight loss. Appetite decreased; no snacking. Tolerating therapy without ADRs; nausea has subsided. He is very pleased with BG control. Notes he is followed by non-VA calibration tester; BP yesterday 136/74. As noted previously, pt is participating in PT and no longer wearing a shoulder brace s/p surgery. Objective: Diabetes Medication Regimen: semaglutide 1mg once weekly metformin SA 750mg BID Adherence: denies missed doses HEMOGLOBIN A1C TREND Collection DT Spec HGBA1c 07/17/2023 07:35 BLOOD 6.5 H 04/29/2023 07:36 BLOOD 7.6 H 02/04/2023 08:03 BLOOD 9.1 H 09/13/2022 08:49 BLOOD 8.6 H 07/17/2022 09:26 BLOOD 9.7 H LIPID PANEL TREND Collection DT Spec CHOL HDL CHO/HDL LDL-d LDL-c TRIG 07/17/2023 07:35 SERUM 118 39 L 3.0 58 107 04/29/2023 07:36 SERUM 119 42 2.8 53 121 02/04/2023 08:03 SERUM 129 40 3.2 60 147 09/13/2022 08:49 SERUM 130 40 3.3 56 170 H 07/17/2022 09:26 SERUM 164 36 L 4.6 83 226 H CREATININE-EGFR 07/17/23 07:35 0.69 04/29/23 07:36 0.71 02/04/23 08:03 0.72 CrCl: CRCL IBW: CrCl(est): 113.8 mL/min (Creat:0.72 02/04/23) CRCL ACT: 100 mL/min CRCL ADJ: 113.8 mL/min (02/04/23) Patient self-monitoring of blood glucose: [facility]: At home : Patient self-monitors blood glucose 1x day and reports the following (mg/dl): Date Range: 05/07/2023 - 08/04/2023 bG values are displayed in mg/dL # of tests 27 Average 122 SD 10.3 Highest 142 Lowest 96 Avg tests/day 0.3 # HI 0 # LO 0 <70 0.0% 70-180 100.0% >180 0.0% Hypos(<69) 0 Date Range: 05/07/2023 - 08/04/2023 bG values are displayed in mg/dL 00:00- 05:30- 08:00- 11:00- 12:30- 17:00- 18:30- :30- 05:30 08:00 11:00 12:30 17:00 18:30 21:30 00:00 05/10/2023 126 05/11/2023 127 05/14/2023 126 05/17/2023 140 05/18/2023 135 05/19/2023 126 05/21/2023 113 05/23/2023 133 05/26/2023 118 05/27/2023 128 Melonie 05/29/2023 120 Melonie 06/05/2023 120 06/09/2023 133 06/13/2023 121 06/16/2023 121 Melonie 06/19/2023 113 06/23/2023 109 Melonie 06/26/2023 129 06/30/2023 123 Melonie 07/03/2023 142 07/07/2023 115 Melonie 07/10/2023 115 07/14/2023 122 Melonie 07/17/2023 96 Mon 07/21/2023 117 07/29/2023 129 08/04/2023 106 Patient eats on avg. 3x day: Diet Patterns: *Cut back on CHO a while ago ; quantity decreased, a lot of vegetables B: skips or cottage cheese + blueberries L: light; cheese D: protein + vegetable Snacks: none further Drinks: water, coffee (black) Exercise: Walks daily (3 miles AM, 1 mile PM) HYPOGLYCEMIC Events: 0 in the last 2 weeks Hypoglycemia recognition & treatment reviewed: Yes EtOH/Illicit drugs: Alcohol: 1 beer 3x/week Tobacco: denies Other: Denies personal or fhx thyroid cancer or MENS Denies hx UTIs Denies hx pancreatitis Hx mitral valve prolapse Personal Goals: Aware of diabets; thinks about and avoids candy Improve BG control Lose weight Asessment/Plan: A1c is currently AT goal of <7% as per [facility] Diabetes Treatment Guidelines with a goal fasting BG of <130 and a goal post-prandial BG of <180. May consider A1c <7-8%. A1c improved and at goal; BG consistent with this and at goal. Tolerating therapy without ADRs. Will continue current regimen. Praised on efforts thusf ar with LSMs and encouraged to continue. Will continue to monitor. Pt would like to coordinate visits with podiatry [id number]. Diabetes (Goal A1c<7%, FBG 90-110mg/dL, 2hPP<180mg/dL): - CONTINUE semaglutide 1mg once weekly - CONTINUE metformin SA 750mg BID - SMBG 2-3x/week - Monitor for s/sx hypoglycemia and contact clinic if BG consistently < 70mg/dL - Healthy lifestyle modifications encouraged - Repeat A1c: October 2023 Clinic's Next Scheduled Follow-up: 8 weeks HTN: Last BP elevated but home BP at goal; ADR to JARROD-I. ASCVD: atorvastatin 20mg/day Microalb: 28.3 mg/G (04/2023) History of Preventive Care: Most recent visit to stock parts inspector: 05/2023 Most recent visit to optometry: 02/2023; Diabetes without retinopathy or macular edema either eye. Time Spent: 30 minutes PBM PharmD Pharmacotherapy Rem V12: PHARMACIST INTERVENTIONS: TYPE 2 DIABETES MELLITUS Medication monitoring, no dosage change required, continue to monitor and assess Medication reconciliation (changes to active VA and non-VA medication lists to reconcile differences) No changes to medication lists made (medication review completed, no discrepancies identified) /lisa/ Jonah Sanchez PharmD Clinical Pharmacy Practitioner Signed: 08/04/2023 08:49 JONAH SANCHEZ DOERUN
--- OUTSIDE RECORDS SUMMARY | 2024-05-10 07:26 | XMS_ITS | Encounter Summary ---
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 [place] [facility] [place] Address [address] [place] [id number] Care Team Providers Care Tip Puncher Name Role Phone CHITO SEGURA Primary Care [...] PART A Feb 16, 2018 PART A [id number] [phone] YENNY OVIEDO PATIENT MEDICARE (WNR) MEDICARE (M) PART B Feb 16, 2018 PART B [id number] YENNY OVIEDO ES PATIENT MEDICARE (WNR) MEDICARE (M) PART A Oct 17, 2006 PART A [id number] [facility] YENNY OVIEDO PATIENT FOR LIFE TFL* Apr 06, 2018 [id number] YENNY OVIEDO PATIENT Selected Encounter This section includes the information on record at [place] for the Encounter. Date/Time Encounter Type Encounter Description Reason Provider Source Jul 17, 2023 08:30 AM THERAPEUTIC EXERCISES OCCUPATIONAL THERAPY ICD-10-CM M25.312 Other instability, left shoulder MACHON,NAN E IHE Encounter Template Text not used by [place] Assessments - Encounter Diagnoses This section includes the primary and secondary diagnoses documented for the Encounter. Date/Time Primary/Secondary Diagnosis Diagnosis Name Provider Source Jul 17, 2023 01:00 PM PRIMARY Other instability, left shoulder MACHON,NAN E [place] [facility] [place] [facility] Plan of Treatment: Future Appointments (+ 6 months) and Future Tests (+/- 45 days) The Plan of Treatment section includes future care activities for the patient from all [place] [facility] This section includes future appointments and future orders which are active, pending or scheduled. Future Appointments This section includes appointments that were scheduled to occur 6 months from the date of the Encounter, up to a maximum of 20 appointments. The data comes from all [place] treatment facilities. Appointment Date/Time Appointment Type Appointme nt Facility Name Jul 21, 2023 01:30 PM [facility]ULATORY [facility] MEDICINE [facility] [place] [facility] Jul 24, 2023 08:30 AM AMBULATORY - REHAB MEDICIN E [facility] [place] [facility] Jul 31, 2023 08:30 AM AMBULATORY - REHAB MEDICIN E [facility] [place] [facility] Aug 04, 2023 08:00 AM [facility] Aug 04, 2023 08:30 AM [facility] MEDICINE [facility] Aug 06, 2023 09:00 AM AMBULATORY - REHAB MEDICIN E [facility] [place] [facility] Aug 20, 2023 08:30 AM AMBULATORY - REHAB MEDICIN E [facility] [place] [facility] Aug 26, 2023 09:00 AM AMBULATORY - REHAB MEDICIN E [facility] [place] [facility] Sep 01, 2023 09:00 AM AMBULATORY - REHAB MEDICIN E [facility] [place] [facility] Sep 09, 2023 08:00 AM AMBULATORY - MEDICINE [facility] [place] [facility] Sep 15, 2023 09:00 AM AMBULATORY - REHAB MEDICIN E [facility] [place] [facility] September 22, 2023 09:00 AM AMBULATORY - REHAB MEDICIN E [facility] [place] [facility] September 29, 2023 08:00 AM [facility]ORY - MEDICINE [place] [place] September 29, 2023 08:30 AM AMBUL[facility]ORY - MEDICINE [place] [place] October 01, 2023 09:00 AM AMBULATORY - REHAB MEDICIN E [facility] [place] [facility] October 07, 2023 02:30 PM AMBULATORY - REHAB MEDICIN E [facility] [place] [facility] October 16, 2023 07:30 AM AMBULATORY - REHAB MEDICIN E [facility] [place] [facility] Nov 03, 2023 07:30 AM AMBULATORY - REHAB MEDICIN E [facility] [place] [facility] Nov 06, 2023 11:00 AM AMBULATORY - MEDICINE [facility] [place] [facility] Nov 10, 2023 07:30 AM AMBULATORY - REHAB MEDICIN E [facility] [place] [facility] Lab Results: +/- 30 days of [...] Range Comment Jul 17, 2023 07:[address] [facility] HEMOGLOBIN A1C PANEL Specimen Type: BLOOD [...] PM Reporting Lab: [facility] [place] [facility] [address] [address] Performing Lab: [facility] [address] HEMOGLOBIN A1C 6.5 H 4.0-5.6 Jul 17, 2023 07:[address] LIVER FUNCTION Specimen Type: SERUM No comment entered. Ordering Provider: AYUSH SEGURA F Report Released Date/Time: Apr 28, 2023 03:05 PM Reporting Lab: [facility] [address] [address] [address] Performing Lab: [address] [address] PROTEIN,TOTAL 6.2 g/dL 6.0-8.3 ALBUMIN 3.7 g/dL 3.5-5.0 ALKALINE PHOSPHATASE 35 U/L L 40-150 AST 12 U/L 5-34 ALT 13 U/L BILIRUBIN, TOTAL 0.8 mg/dL 0.2-1.2 Jul 17, 2023 07:35 AM [facility] BASIC METABOLIC PANEL (fasting) Specimen Type: SERUM No comment entered. Ordering Provider: AYUSH SEGURA F Report Released Date/Time: Apr 28, 2023 03:05 PM Reporting Lab: [address] [address] Performing Lab: [address] [address] UREA NITROGEN 14 mg/dL 7-25 GLUCOSE 128 mg/dL H 65-100 SODIUM 142 mmol/L 135-145 POTASSIUM 3.9 mmol/L 3.5-5.0 CHLORIDE 107 mmol/L 100-110 CO2 24 meq/L 20-30 CREATININE, Serum 0.69 mg/dL 0.50-1.40 eGFR(CKD-EPI 2020) >90 mL/min >60 Jul 17, 2023 07:35 AM [facility] VITAMIN B12 Specimen Type: SERUM No comment entered. Ordering Provider: AYUSH SEGURA F Report Released Date/Time: Apr 28, 2023 03:05 PM Reporting Lab: [address] [address] Performing Lab: [address] [address] VITAMIN B12 643 pg/mL 200-900 Jul 17, 2023 07:35 AM [facility] MICROALBUMIN CREATININE RATIO PANEL Specimen Type: URINE No comment entered. Ordering Provider: AYUSH SEGURA Report Released Date/Time: Apr 28, 2023 03:05 PM Reporting Lab: [facility] [address] [address] Performing Lab: [address] [address] MICROALBUMIN/C REATININE RATIO 37.0 mg/g H 0-29.9 MICROALBUMIN,Q UANTITATIVE 3.4 mg/dL RR UNAVAIL CREATININE URINE 91.89 mg/dL Jul 17, 2023 07:35 AM [facility] LIPID PANEL FASTING Specimen Type: SERUM No comment entered. Ordering Provider: AYUSH SEGURA Report Released Date/Time: Apr 28, 2023 03:05 PM Reporting Lab: [facility] [address] [facility] [address] Performing Lab: [address] [address] CHOLESTEROL 118 mg/dL TRIGLYCERIDE 107 mg/dL 0-150 [...] 28, 2021 03:28 PM VA-TOBACCO FORMER USER [facility] Tobacco Use History This section includes a history of the smoking, or tobacco-related health factors, that were collected on or before the date of the Encounter. The data comes from the [place] facility where the Encounter took place. Date/Time Smoking Status/Tobacco Use Comment F acility Mar 28, 2021 03:28 PM VA-TOBACCO QUIT 15 YRS OR MORE [facility] Dec 02, 2019 09:36 AM VA-TOBACCO NEVER USED [facility] Apr 23, 2005 10:19 AM QUIT TOBACCO USE IN PAST YEAR [facility] Advance Directives: All historical and current Section Date Range: From patient's date of to the date document was created. This section includes ALL of a patient's completed or amended [place] Advance and Rescinded Directives. The entries below indicate that a directive exists for the patient, but an actual copy is not included with this document. The data comes from all [place] facilities. Date Advance Directives Provider Source Dec 16, 2011 ADVANCE DIRECTIVE DISCUSSION MARGARITA TERRAZAS [place] Encounter Notes: All associated encounter notes This section contains the clinical notes associated to the Encounter. 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 Special instructions: passive/active ROM and gentle therabands. DOS: 02/08/2024 22 weeks 5 days post-op SUBJECTIVE: Pt reports that he continues to experience lots of clicks. Pain Level: 0/10 OBJECTIVE: THERAPEUTIC EXERCISE: *UBE 2' forward, 2' backward 2.0 *hiram into flexion, w/ 10 second hold on L, x10 *wall slides into flexion, 1x10 *shoulder rows w/ blue band, 1x10 *wall slides into abduction, 1x10 *shoulder extensions w/ blue band, 2x10 ADDED: *shoulder flexion w/ 1# weight, 2x10 (to 90*) *shoulder scaption w/ 1# weight, 2x10 (to 90*) Access Code: [email or web address] URL: [email or web address] Date: 07/17/2023 Prepared by: [facility] Exercises - Shoulder Flexion Wall Slide with [...] - Standing Shoulder Flexion to 90 Degrees with Dumbbells - 1 x daily - 7 x weekly - 3 sets - 10 reps - Scaption with Dumbbells - 1 x daily - 7 x weekly - 3 sets - 10 reps MINUTES: 16 MANUAL THERAPY: *mobilization to anterior shoulder musculature, seated MINUTES: 8 THERAPEUTIC DYNAMIC ACTIVITIES: MINUTES: NEUROMUSCULAR EDUCATION: MINUTES: OTHER: MINUTES: MODALITIES: *MHP to L shoulder prior to tx MINUTES: 3 [] Contraindication screen completed prior to modality [] Skin intact pre/post SELF CARE/EDUCATION: MINUTES: Patient education was provided for all aspects of care during this clinical encounter. ASSESSMENT: pt tolerated tx well this date. persistent crepitation noted but w/o pain. added on shoulder flexion/scaption w/ weight which pt tolerated well, but w/ crepitation. PLAN: continue w/ OT POC; modify tx as needed. progress w/ HEP as tolerated. pt is in agreement w/ this POC. /lisa/ Nan Pike, MS OTR/L, CHT Occupational Therapist Signed: 07/17/2023 13:00 NAN PIKE [facility]
--- OUTSIDE RECORDS SUMMARY | 2024-05-10 07:26 | XMS_ITS ---
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 [place] [facility] [place] Address [address] [place] [address] Care Team Providers Care Vocational Teacher Name Role Phone CHITO SEGURA Primary Care [...] PART A Feb 16, 2018 PART A [id number] YENNY OVIEDO ES PATIENT MEDICARE (WNR) MEDICARE (M) PART B Feb 16, 2018 PART B [id number] YENNY OVIEDO ES PATIENT MEDICARE (WNR) MEDICARE (M) PART A Oct 17, 2006 PART A [id number] [facility] YENNY OVIEDO PATIENT FOR LIFE TFL* Apr 06, 2018 [id number] YENNY OVIEDO PATIENT Selected Encounter This section includes the information on record at [place] for the Encounter. Date/Time Encounter Type Encounter Description Reason Provider Source Jul 31, 2023 08:30 AM THERAPEUTIC EXERCISES OCCUPATIONAL THERAPY ICD-10-CM M25.312 Other instability, left shoulder MACHON,NAN E IHE Encounter Template Text not used by [place] Assessments - Encounter Diagnoses This section includes the primary and secondary diagnoses documented for the Encounter. Date/Time Primary/Secondary Diagnosis Diagnosis Name Provider Source Jul 31, 2023 12:55 PM PRIMARY Other instability, left shoulder MACHON,NAN E [place] [facility] [place] [facility] Plan of Treatment: Future Appointments (+ 6 months) and Future Tests (+/- 45 days) The Plan of Treatment section includes future care activities for the patient from all [place] [facility]. This section includes future appointments and future orders which are active, pending or scheduled. Future Appointments This section includes appointments that were scheduled to occur 6 months from the date of the Encounter, up to a maximum of 20 appointments. The data comes from all [place] treatment facilities. Appointment Date/Time Appointment Type Appointme nt Facility Name Aug 04, 2023 08:00 AM AMBULATORY - MEDICINE [facility] Aug 04, 2023 08:30 AM AMBULATORY - MEDICINE [facility] Aug 06, 2023 09:00 AM AMBULATORY - REHAB MEDICIN E [facility] [place] [facility] Aug 20, 2023 08:30 AM AMBULATORY - REHAB MEDICIN E [facility] [place] [facility] Aug 26, 2023 09:00 AM AMBULATORY - REHAB MEDICIN E [facility] [place] [facility] Sep 01, 2023 09:00 AM AMBULATORY - REHAB MEDICIN E [facility] [facility] Sep 09, 2023 08:00 AM AMBULATORY - MEDICINE [facility] [facility] Sep 15, 2023 09:00 AM AMBULATORY - REHAB MEDICIN E [facility] [facility] September 22, 2023 09:00 AM AMBULATORY - REHAB MEDICIN E [place] [facility] [facility] September 29, 2023 08:00 [facility], [facility] 08:30 [facility] October 01, 2023 09:00 AM AMBULATORY - REHAB MEDICIN E [facility] [facility] October 07, 2023 02:30 PM AMBULATORY - REHAB MEDICIN E [facility] [facility] October 16, 2023 07:30 AM AMBULATORY - REHAB MEDICIN E [facility] [facility] Nov 03, 2023 07:30 AM AMBULATORY - REHAB MEDICIN E [facility] [facility] Nov 06, 2023 11:00 AM AMBULATORY - MEDICINE [facility] [place] [facility] Nov 10, 2023 07:30 AM AMBULATORY - REHAB MEDICIN E [facility] [facility] Nov 18, 2023 11:00 AM AMBULATORY - NONE [facility] [facility] Nov 27, 2023 07:15 AM AMBULATORY - NONE [facility] [place] [facility] Nov 27, 2023 07:45 AM AMBULATORY - NONE [place] [facility] [place] [facility] Lab Results: +/- 30 days of the encounter This section includes the Chemistry and Hematology Lab Results on record with [place] for the patient. Radiology Reports and Pathology Reports are provided separately, in subsequent sections. Lab Results This section contains the Chemistry/Hematology Results that were resulted 30 days before or 30 daysafter the date of the Encounter. Date/Time Source Result Type Result - Unit Interpretation Reference Range Comment Jul 17, 2023 07:35 AM [facility] HEMOGLOBIN A1C PANEL Specimen Type: BLOOD [...] Apr 28, 2023 03:05 PM Reporting Lab[facility] [address] [address] [address] Performing Lab: [facility] [address] [address] [address] HEMOGLOBIN A1C 6.5 H 4.0-5.6 Jul 17, 2023 07:35 AM [facility] LIVER FUNCTION Specimen Type: SERUM No comment entered. Ordering Provider: AYUSH SEGURAM F Report Released Date/Time: Apr 28, 2023 03:05 PM Reporting Lab: [address] [address] Performing Lab: [address] [address] PROTEIN,TOTAL 6.2 g/dL 6.0-8.3 ALBUMIN 3.7 g/dL 3.5-5.0 ALKALINE PHOSPHATASE 35 U/L L 40-150 AST 12 U/L 5-34 ALT 13 U/L BILIRUBIN, TOTAL 0.8 mg/dL 0.2-1.2 Jul 17, 2023 07:35 AM [facility] BASIC METABOLIC PANEL (fasting) Specimen Type: SERUM No comment entered. Ordering Provider: AYUSH SEGURAM F Report Released Date/Time: Apr 28, 2023 03:05 PM Reporting Lab: [address] [address] Performing Lab: [address] [address] UREA NITROGEN 14 mg/dL 7-25 GLUCOSE 128 mg/dL H 65-100 SODIUM 142 mmol/L 135-145 POTASSIUM 3.9 mmol/L 3.5-5.0 CHLORIDE 107 mmol/L 100-110 CO2 24 meq/L 20-30 CREATININE, Serum 0.69 mg/dL 0.50-1.40 eGFR(CKD-EPI 2020) >90 mL/min >60 Jul 17, 2023 07:35 AM [facility] VITAMIN B12 Specimen Type: SERUM No comment entered. Ordering Provider: AYUSH SEGURAM F Report Released Date/Time: Apr 28, 2023 03:05 PM Reporting Lab: [address] [address] Performing Lab: [address] [address] VITAMIN B12 643 pg/mL 200-900 Jul 17, 2023 07:35 AM [facility] MICROALBUMIN CREATININE RATIO PANEL Specimen Type: URINE No comment entered. Ordering Provider: AYUSH SEGURA F Report Released Date/Time: Apr 28, 2023 03:05 PM Reporting Lab: [facility] [address] [address] [address] Performing Lab: [address] [address] MICROALBUMIN/C REATININE RATIO 37.0 mg/g H 0-29.9 MICROALBUMIN,Q UANTITATIVE 3.4 mg/dL RR UNAVAIL CREATININE URINE 91.89 mg/dL Jul 17, 2023 07:35 AM [facility] LIPID PANEL FASTING Specimen Type: SERUM No comment entered. Ordering Provider: AYUSH SEGURA F Report Released Date/Time: Apr 28, 2023 03:05 PM Reporting Lab: [address] [address] Performing Lab: [address] [address] CHOLESTEROL 118 mg/dL TRIGLYCERIDE 107 mg/dL 0-150 LDL calculated 58 mg/dL 0-129 CHOL/HDL 3.0 HDL CHOLESTEROL 39 mg/dL L 40-60 Social History: Smoking Status (Most current) and Tobacco Use (All prior to encounter date) This section includes the most current, and the historical, smoking and tobacco- related health factors from the [place] facility where the Encounter took place. Current Smoking Status This section includes the most current smoking, or tobacco-related health factor, from the [place] facility where the Encounter took place. Date/Time Current Smoking Status Comment Facil ity Jul 21, 2023 01:30 PM VA-TOBACCO QUIT 15 YRS OR MORE [facility] Tobacco Use History This section includes a history of the smoking, or tobacco-related health factors, that were collected on or before the date of the Encounter. The data comes from the [place] facility where the Encounter took place. Date/Time Smoking Status/Tobacco Use Comment F acsophia Jul 21, 2023 01:30 PM [place]-TOBACCO QUIT 15 YRS OR MORE [facility] Mar 28, 2021 03:28 PM VA-TOBACCO FORMER USER [place] [facility] [place] [facility] Mar 28, 2021 03:28 PM VA-TOBACCO QUIT 15 YRS OR MORE [place] [facility] [place] [facility] Dec 02, 2019 09:36 AM VA-TOBACCO NEVER USED [place] [facility] [place] [facility] Apr 23, 2005 10:19 AM QUIT TOBACCO USE IN PAST YEAR [facility] Advance Directives: All historical and current Section Date Range: From patient's date of to the date document was created. This section includes ALL of a patient's completed or amended [place] Advance and Rescinded Directives. The entries below indicate that a directive exists for the patient, but an actual copy is not included with this document. The data comes from all [place] facilities. Date Advance Directives Provider Source Dec 16, 2011 ADVANCE DIRECTIVE DISCUSSION MARGARITA TERRAZAS [place] Encounter Notes: All associated encounter notes This section contains the clinical notes associated to the Encounter. 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 Special instructions: passive/active ROM and gentle therabands. DOS: 02/08/2024 24 weeks 6 days post-op SUBJECTIVE: Pt reports that he was doing the shoulder rows 2-3 days ago and something snapped and was accompanied by pain. It's still sore now. He stopped doing the rows. Pain Level: 4/10 Imagin03/20/2023: FINDINGS: The bones are intact. No fracture. Glenohumeral and acromioclavicular alignment is anatomic. There is interval widening of the acromioclavicular joint which now measures 0.96 cm. Interval placement of 2 surgical anchors in to the left humeral head. No abnormal soft tissue calcifications. The patient is status post median sternotomy. OBJECTIVE: THERAPEUTIC EXERCISE: *UBE 2' forward, 2' backward 2.0 *hiram into flexion, w/ 10 second hold on L, x10 *wall walk into flexion, 34x5 *wall walk into scaption, 34x5 *wall slides into flexion, 1x10 ADDED: *IR iso's against wall, 5 second hold x5 *shoulder flexion iso's against wall, 5 second hold x5 *trialed ER iso's against wall-pt reported increased pain-HOLD Access Code: [email or web address] URL: [email or web address] Date: 07/31/2023 Prepared by: JORDAN [facility] Exercises - Supine Shoulder Flexion AAROM [...] 15 MANUAL THERAPY: *mobilization to anterior shoulder musculature/scar mob, supine MINUTES: 10 THERAPEUTIC DYNAMIC ACTIVITIES: MINUTES: NEUROMUSCULAR EDUCATION: MINUTES: OTHER: MINUTES: MODALITIES: *MHP to L shoulder prior to tx MINUTES: 3 [] Contraindication screen completed prior to modality [] Skin intact pre/post SELF CARE/EDUCATION: MINUTES: Patient education was provided for all aspects of care during this clinical encounter. ASSESSMENT: pt tolerated tx well this date. he reported recent onset of painful crepitation w/ resisted shoulder rows so took a break. today, he is able to tolerate most AAROM TE. also added iso's for flexion and IR. he denied any pain nor crepitation w/ these. focused on loosening up scar tissue as well as decreasing tightness throughout anterior shoulder musculature during MT. pt reported feeling improved following tx. PLAN: continue w/ OT POC; modify tx as needed. progress w/ HEP as tolerated. pt is in agreement w/ this POC. /lisa/ Nan Pike, MS OTR/L, CHT Occupational Therapist Signed: 07/31/2023 12:55 NAN PIKE [facility]
--- OUTSIDE RECORDS SUMMARY | 2024-05-10 07:26 | XMS_ITS ---
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 [facility] [place] Address [address] [place] [address] Care Team Providers Care Care Connector Name Role Phone CHITO SEGURA Primary Care [...] PART A Feb 16, 2018 PART A [id number] YENNY OVIEDO PATIENT MEDICARE (WNR) MEDICARE (M) PART B Feb 16, 2018 PART B [id number] YENNY OVIEDO ES PATIENT MEDICARE (WNR) MEDICARE (M) PART A Oct 17, 2006 PART A [id number] [facility] [phone] YENNY OVIEDO PATIENT FOR LIFE TFL* Apr 06, 2018 [id number] YENNY OVIEDO PATIENT Selected Encounter This section includes the information on [place] at [place] for the Encounter. Date/Time Encounter Type Encounter Description Reason Provider Source Jul 17, 2023 12:00 PM POS [employer] PRESSURE FILTER SLEEP MEDICINE ICD-10-CM G47.30 Sleep apnea, unspecified ST YASSINE KIM P E Encounter Template Text not used by [place] Assessments - Encounter Diagnoses This section includes the primary and secondary diagnoses documented for the Encounter. Date/Time Primary/Secondary Diagnosis Diagnosis Name Provider Source Jul 17, 2023 12:42 PM PRIMARY Sleep apnea, unspecified ST JULIOYASSINE [place] [facility] [place] [facility] Plan of Treatment: Future Appointments (+ 6 months) and Future Tests (+/- 45 days) The Plan of Treatment section includes future care activities for the patient from all [place] [facility] This section includes future appointments and future [...] 21, 2023 01:30 PM AMBULATORY - MEDICINE [place] [facility] [place] [facility] Jul 24, 2023 08:30 AM AMBULATORY - REHAB MEDICIN E [place] [facility] [place] [facility] Jul 31, 2023 08:30 AM AMBULATORY - REHAB MEDICIN E [place] [facility] [place] [facility] Aug 04, 2023 08:00 AM AM[facility]ULATORY - MEDICINE [facility] Aug 04, 2023 08:30 AM AMBULATORY - MEDICINE [facility] Aug 06, 2023 09:00 AM AMBULATORY - REHAB MEDICIN E [place] [facility] [place] [facility] Aug 20, 2023 08:30 AM AMBULATORY - REHAB MEDICIN E [place] [facility] [place] [facility] Aug 26, 2023 09:00 AM AMBULATORY - REHAB MEDICIN E [place] [facility] [place] [facility] Sep 01, 2023 09:00 AM AMBULATORY - REHAB MEDICIN E [facility] [place] [facility] Sep 09, 2023 08:00 AM AMBULATORY - MEDICINE [place] [facility] [place] [facility] Sep 15, 2023 09:00 AM AMBULATORY - REHAB MEDICIN E [facility] [place] [facility] September 22, 2023 09:00 AM AMBULATORY - REHAB MEDICIN E [place] [facility] [place] [facility] September 29, 2023 08:00 AM AMBULATORY - MEDICINE [place] [place] September 29, 2023 08:30 AM AMBULATORY - MEDICINE [place] [place] October 01, 2023 09:00 AM AMBULATORY - REHAB MEDICIN E [facility] [place] [facility] October 07, 2023 02:30 PM AMBULATORY - REHAB MEDICIN E [facility] [place] [facility] October 16, 2023 07:30 AM AMBULATORY - REHAB MEDICIN E [place] [facility] [place] [facility] Nov 03, 2023 07:30 AM AMBULATORY - REHAB MEDICIN E [facility] [place] [facility] Nov 06, 2023 11:00 AM AMBULATORY - MEDICINE [place] [facility] [place] [facility] Nov 10, 2023 07:30 AM AMBULATORY - REHAB MEDICIN E [place] [facility] [place] [facility] Lab Results: +/- 30 days [...] Range Comment Jul 17, 2023 07:35 AM [place] [facility] [facility] HEMOGLOBIN A1C PANEL Specimen Type: [...] Apr 28, 2023 03:05 PM Reporting Lab: [place] [facility] [place] [facility] [address] [address] Performing Lab: [place] [facility] [place] [address] [address] HEMOGLOBIN A1C 6.5 H 4.0-5.6 Jul 17, 2023 07:35 AM [facility] BASIC METABOLIC PANEL (fasting) Specimen Type: SERUM No comment entered. Ordering Provider: AYUSH SEGURA F Report Released Date/Time: Apr 28, 2023 03:05 PM Reporting Lab: [facility] [address] [address] Performing Lab: [address] [address] UREA NITROGEN 14 mg/dL 7-25 GLUCOSE 128 mg/dL H 65-100 SODIUM 142 mmol/L 135-145 POTASSIUM 3.9 mmol/L 3.5-5.0 CHLORIDE 107 mmol/L 100-110 CO2 24 meq/L 20-30 CREATININE, Serum 0.69 mg/dL 0.50-1.40 eGFR(CKD-EPI 2020) >90 mL/min >60 Jul 17, 2023 07:35 AM [facility] LIVER FUNCTION Specimen Type: SERUM No comment entered. Ordering Provider: AYUSH SEGURA F Report Released Date/Time: Apr 28, 2023 03:05 PM Reporting Lab: [address] [address] Performing Lab: [address] [address] PROTEIN,TOTAL 6.2 g/dL 6.0-8.3 ALBUMIN 3.7 g/dL 3.5-5.0 ALKALINE PHOSPHATASE 35 U/L L 40-150 AST 12 U/L 5-34 ALT 13 U/L BILIRUBIN, TOTAL 0.8 mg/dL 0.2-1.2 Jul 17, 2023 07:35 AM [facility] VITAMIN B12 Specimen Type: SERUM No comment entered. Ordering Provider: AYUSH SEGURA F Report Released Date/Time: Apr 28, 2023 03:05 PM Reporting Lab: [facility] [address] [address] Performing Lab: [address] [address] VITAMIN B12 643 pg/mL 200-900 Jul 17, 2023 07:35 AM [facility] MICROALBUMIN CREATININE RATIO PANEL Specimen Type: URINE No comment entered. Ordering Provider: AYUSH SEGURA Report Released Date/Time: Apr 28, 2023 03:05 PM Reporting Lab: [facility] [address] [address] Performing Lab: [address] [address] MICROALBUMIN/C REATININE RATIO 37.0 mg/g H 0-29.9 MICROALBUMIN,Q UANTITATIVE 3.4 mg/dL RR UNAVAIL CREATININE URINE 91.89 mg/dL Jul 17, 2023 07:35 AM [facility] LIPID PANEL FASTING Specimen Type: SERUM No comment entered. Ordering Provider: AYUSH SEGURA Report Released Date/Time: Apr 28, 2023 03:05 PM Reporting Lab: [address] [address] Performing Lab: [address] [address] CHOLESTEROL 118 mg/dL TRIGLYCERIDE 107 mg/dL 0-150 [...] 28, 2021 03:28 PM VA-TOBACCO FORMER USER [facility] Tobacco Use History This section includes a history of the smoking, or tobacco-related health factors, that were collected on or before the date of the Encounter. The data comes from the [place] facility where the Encounter took place. Date/Time Smoking Status/Tobacco Use Comment F acility Mar 28, 2021 03:28 PM VA-TOBACCO QUIT 15 YRS OR MORE [facility] Dec 02, 2019 09:36 AM VA-TOBACCO NEVER USED [facility] Apr 23, 2005 10:19 AM QUIT TOBACCO USE IN PAST YEAR [facility] Advance Directives: All historical and current [...] 16, 2011 ADVANCE DIRECTIVE DISCUSSION MARGARITA TERRAZAS [place] Encounter Notes: All associated encounter notes This section contains the clinical notes associated to the Encounter. Date/Time Encounter Note(s) Provider Source Jul 17, 2023 12:03 PM RESPIRATORY THERAP Y CONSULT: LOCAL TITLE: CONSULT REPORT/RESPIRATORY THERAPY STANDARD TITLE: RESPIRATORY THERAPY CONSULT DATE OF NOTE: JUL 17, 2023@12:03 ENTRY DATE: JUL 17, 2023@12:03:36 AUTHOR: YASSINE BARGER EXP COSIGNER: URGENCY: STATUS: COMPLETED [facility] Connect ([facility]VC) Standard Documentation VVC Clinician Resources Only: E911 (Emergency Call Relay Center): [phone] National Veterans Crisis Line - 988 then press #1. [facility] Suicide Coordinator [phone], Ext. [phone]; Back-up Ext. [phone] [place] Police, Natalia PRESTON [phone] Introduction: Visit is being conducted by [place] [employer] [facility]. identified with 2 identifiers: [X] Full Name [X] Date of [ ] [place] ID Card Emergency Plan: confirmed and/or provided the following information in case of emergency or technology failure. PATIENT PHONE - PHONE NUMBER [CELLULAR] - Is patient phone number correct, if not, enter below: [place]'s phone number: ANDREEA OVIEDO [address], [place], [address] 's present location and address for appointment: [place] 's emergency contact name and phone number: [facility] [phone] [place] reported that location is private and safe: Yes Informed Consent: [place] informed of the risks and benefits of Telehealth video care. [place] has the right to refuse video services. If refuses video visit, a [id number]-[id number]-mkwa visit will be scheduled. verbalized consent for this video visit: Yes [place] provided consent for any other persons present for visit: Yes If yes, who and relationship to patient: Secure visit: Visit was locked for security and privacy: Yes diagnosed with sleep apnea had VVC visit to discuss device replacement. 's APAP is noisy with high run hours and it may be out of warranty but an RMA will be submitted. is compliant. 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 has supply of masks. gives consent for appointment. 's address, phone and email confirmed. We reviewed operation of device, My options and sleep report menu and care and cleaning. He received written handout on care and cleaning, schedule for replacement supplies, clinic contact information and operating manual. was urged to reach out to the clinic for any issues or problems. He will be followed up in [facility] in 4 weeks. /lisa/ YASSINE BARGER RESPIRATORY THERAPIST Signed: 07/17/2023 12:44 YASSINE BARGER [place] [facility]
--- OUTSIDE RECORDS SUMMARY | 2024-05-10 07:26 | XMS_ITS ---
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 [facility] [place] Address [address] [place] [id number] Care Team Providers Care Bible Worker Name Role Phone CHITO SEGURA Primary [...] PART A Feb 16, 2018 PART A [id number] YENNY OVIEDO PATIENT MEDICARE (WNR) MEDICARE (M) PART B Feb 16, 2018 PART B [id number] YENNY OVIEDO ES PATIENT MEDICARE (WNR) MEDICARE (M) PART A Oct 17, 2006 PART A [id number] YENNY OVIEDO PATIENT FOR LIFE TFL* Apr 06, 2018 [id number] YENNY OVIEDO PATIENT Selected Encounter This section includes the information on record at [place] for the Encounter. Date/Time Encounter Type Encounter Description Reason Provider Source Jul 08, 2023 10:00 AM THERAPEUTIC EXERCISES OCCUPATIONAL THERAPY ICD-10-CM M25.312 Other instability, left shoulder MACHON,NAN E IHE Encounter Template Text not used by [place] Assessments - Encounter Diagnoses This section includes the primary and secondary diagnoses documented for the Encounter. Date/Time Primary/Secondary Diagnosis Diagnosis Name Provider Source Jul 09, 2023 07:07 AM PRIMARY Other instability, left shoulder MACHON,NAN E [place] [facility] [place] [facility] Plan of Treatment: Future Appointments (+ 6 months) and Future Tests (+/- 45 days) The Plan of Treatment section includes future care activities for the patient from all [place] [facility]. This section includes future appointments and future orders which are active, pending or scheduled. Future Appointments This section includes appointments that were scheduled to occur 6 months from the date of the Encounter, up to a maximum of 20 appointments. The data comes from all [place] treatment facilities. Appointment Date/Time Appointment Type Appointme nt Facility Name Jul 17, 2023 08:30 AM AMBULATORY - REHAB MEDICIN E [facility] [place] [facility] Jul 17, 2023 12:00 PM AMBULATORY - NONE [place] [facility] [place] [facility] Jul 21, 2023 01:30 PM AMBULATORY - MEDICINE [place] [facility] [place] [facility] Jul 24, 2023 08:30 AM AMBULATORY - REHAB MEDICIN E [facility] [place] [facility] Jul 31, 2023 08:30 AM AMBULATORY - REHAB MEDICIN E [facility] [place] [facility] Aug 04, 2023 08:00 AM [facility] MEDICINE [facility] Aug 04, 2023 08:30 AM AMBULATORY - MEDICINE [facility] Aug 06, 2023 09:00 AM AMBULATORY - REHAB MEDICIN E [place] [facility] [place] [facility] Aug 20, 2023 08:30 AM AMBULATORY - REHAB MEDICIN E [facility] [place] [facility] Aug 26, 2023 09:00 AM AMBULATORY - REHAB MEDICIN E [facility] [place] [facility] Sep 01, 2023 09:00 AM AMBULATORY - REHAB MEDICIN E [facility] [place] [facility] Sep 09, 2023 08:00 AM AMBULATORY - MEDICINE [place] [facility] [place] [facility] Sep 15, 2023 09:00 AM AMBULATORY - REHAB MEDICIN E [facility] [place] [facility] September 22, 2023 09:00 AM AMBULATORY - REHAB MEDICIN E [facility] [place] [facility] September 29, 2023 08:00 AM AMBULATORY - [...] MEDICIN E [place] [facility] [place] [facility] Nov 03, 2023 07:30 AM AMBULATORY - REHAB MEDICIN E [facility] [place] [facility] Lab Results: +/- 30 days of the encounter This section includes the Chemistry and Hematology Lab Results on record with [place] for the patient. Radiology Reports and Pathology Reports are provided separately, in subsequent sections. Lab Results This section contains the Chemistry/Hematology Results that were resulted 30 days before or 30 daysafter the date of the Encounter. Date/Time Source Result Type Result - Unit Interpretation Reference Range Comment Jul 17, 2023 07:35 AM [facility] HEMOGLOBIN A1C PANEL Specimen Type: BLOOD Comment: [...] Apr 28, 2023 03:05 PM Reporting Lab: [facility] [place] [facility] [address] [address] Performing Lab: [facility] [address] HEMOGLOBIN A1C 6.5 H 4.0-5.6 Jul 17, 2023 07:35 AM [facility] BASIC METABOLIC PANEL (fasting) Specimen Type: SERUM No comment entered. Ordering Provider: AYUSH SEGURA F Report Released Date/Time: Apr 28, 2023 03:05 PM Reporting Lab: [facility] [address] [address] Performing Lab: [address] [address] UREA NITROGEN 14 mg/dL 7-25 GLUCOSE 128 mg/dL H 65-100 SODIUM 142 mmol/L 135-145 POTASSIUM 3.9 mmol/L 3.5-5.0 CHLORIDE 107 mmol/L 100-110 CO2 24 meq/L 20-30 CREATININE, Serum 0.69 mg/dL 0.50-1.40 eGFR(CKD-EPI 2020) >90 mL/min >60 Jul 17, 2023 07:35 AM [facility] LIVER FUNCTION Specimen Type: SERUM No comment entered. Ordering Provider: AYUSH SEGURA F Report Released Date/Time: Apr 28, 2023 03:05 PM Reporting Lab: [facility] [address] [facility] [address] Performing Lab: [address] [address] PROTEIN,TOTAL 6.2 g/dL 6.0-8.3 ALBUMIN 3.7 g/dL 3.5-5.0 ALKALINE PHOSPHATASE 35 U/L L 40-150 AST 12 U/L 5-34 ALT 13 U/L BILIRUBIN, TOTAL 0.8 mg/dL 0.2-1.2 Jul 17, 2023 07:35 AM [facility] VITAMIN B12 Specimen Type: SERUM No comment entered. Ordering Provider: AYUSH SEGURA F Report Released Date/Time: Apr 28, 2023 03:05 PM Reporting Lab: [facility] [address] [facility] [address] Performing Lab: [address] [address] VITAMIN B12 643 pg/mL 200-900 Jul 17, 2023 07:35 AM [facility] MICROALBUMIN CREATININE RATIO PANEL Specimen Type: URINE No comment entered. Ordering Provider: AYUSH SEGURA Report Released Date/Time: Apr 28, 2023 03:05 PM Reporting Lab: [facility] [address] [facility] [address] Performing Lab: [facility] [address] [facility] [address] MICROALBUMIN/C REATININE RATIO 37.0 mg/g H 0-29.9 MICROALBUMIN,Q UANTITATIVE 3.4 mg/dL RR UNAVAIL CREATININE URINE 91.89 mg/dL Jul 17, 2023 07:35 AM [facility] LIPID PANEL FASTING Specimen Type: SERUM No comment entered. Ordering Provider: AYUSH SEGURA Report Released Date/Time: Apr 28, 2023 03:05 PM Reporting Lab: [facility] [address] [facility] [address] Performing Lab: [facility] [address] [facility] [address] CHOLESTEROL 118 mg/dL TRIGLYCERIDE 107 mg/dL 0-150 LDL calculated 58 mg/dL 0-129 CHOL/HDL 3.0 HDL CHOLESTEROL 39 mg/dL L 40-60 Social History: Smoking Status (Most current) and Tobacco Use (All prior to encounter date) This section includes the most current, and the historical, smoking and tobacco- related health factors from the [place] facility where the Encounter took place. Current Smoking Status This section includes the most current smoking, or tobacco-related health factor, from the [place] facility where the Encounter took place. Date/Time Current Smoking Status Comment Facil ity Mar 28, 2021 03:28 PM VA-TOBACCO FORMER USER [facility] Tobacco Use History This section includes a history of the smoking, or tobacco-related health factors, that were collected on or before the date of the Encounter. The data comes from the [place] facility where the Encounter took place. Date/Time Smoking Status/Tobacco Use Comment F acility Mar 28, 2021 03:28 PM VA-TOBACCO QUIT 15 YRS OR MORE [facility] Dec 02, 2019 09:36 AM VA-TOBACCO NEVER USED [facility] Apr 23, 2005 10:19 AM QUIT TOBACCO USE IN PAST YEAR [facility] Advance Directives: All historical and current Section Date Range: From patient's date of to the date document was created. This section includes ALL of a patient's completed or amended [place] Advance and Rescinded Directives. The entries below indicate that a directive exists for the patient, but an actual copy is not included with this document. The data comes from all [place] facilities. Date Advance Directives Provider Source Dec 16, 2011 ADVANCE DIRECTIVE DISCUSSION MARGARITA TERRAZAS [place] Encounter Notes: All associated encounter notes This section contains the clinical notes associated to the Encounter. 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 Special instructions: passive/active ROM and gentle therabands. DOS: 02/08/2024 21 weeks 4 days post-op SUBJECTIVE: Pt reports that he was experiencing a lot of extra clicks yesterday during the exercises. Pain Level: 2/10 OBJECTIVE: THERAPEUTIC EXERCISE: *UBE 2' forward, 2' backward 1.0 *hiram into flexion, w/ 10 second hold on L, x10 *wall slides into flexion, 1x10 *reactive iso's w/ green band, IR, 1x10 *reactive iso's w/ green band, ER, 1x10 *shoulder rows w/ blue band, 1x10 *wall walk into abduction, 34x5 *wall slides into abduction, 1x10 *sh ER w/ green band, -HOLD ADDED: *shoulder extensions w/ blue band, 2x10 Access Code: [email or web address] URL: [email or web address] Date: 07/08/2023 Prepared by: [facility] Exercises - Shoulder Flexion Wall Slide [...] ASSESSMENT: pt tolerated tx well this date. despite persistent crepitation, his AAROM and activity tolerance is quite good. and his pain at rest has decreased. added on shoulder extensions which pt tolerated well. during mobilization, persistent ttp and tightness throughout anterior shoulder musculature. despite this the pt reported feeling much improved following tx. PLAN: continue w/ OT POC; modify tx as needed. progress w/ HEP as tolerated. pt is in agreement w/ this POC. /lisa/ Nan Pike, MS OTR/[place], CHT Occupational Therapist Signed: 07/09/2023 07:07 [facility]
--- OUTSIDE RECORDS SUMMARY | 2024-05-10 07:26 | XMS_ITS | Encounter Summary ---
Author Name [facility] ([place]) [facility] Address [address] [place] [id number] Care Team Providers Care Software Application Tester Name Role Phone CHITO SEGURA Primary Care [...] PART A Feb 16, 2018 PART A [id number] YENNY OVIEDO ANDREW PATIENT MEDICARE (WNR) MEDICARE (M) PART B Feb 16, 2018 PART B [id number] [phone] YENNY OVIEDO ANDREW PATIENT MEDICARE (WNR) MEDICARE (M) PART A Oct 17, 2006 PART A [id number] YENNY OVIEDO PATIENT FOR LIFE TFL* Apr 06, 2018 [id number] YENNY OVIEDO PATIENT Selected Encounter This section includes the information on record at [place] for the Encounter. Date/Time Encounter Type Encounter Description Reason Provider Source Aug 04, 2023 08:00 AM OFFICE O/P EST LOW 20 MIN PODIATRY ICD-10-CM L60.3 Nail dystrophy JUVENAL ROSS [facility] Encounter Template Text not used by [place] Assessments - Encounter Diagnoses This section includes the primary and secondary diagnoses documented for the Encounter. Date/Time Primary/Secondary Diagnosis Diagnosis Name Provider Source Aug 04, 2023 08:24 AM PRIMARY Nail dystrophy JUVENAL ROSS [facility] Aug 04, 2023 08:24 AM SECONDARY Ingrowing nail JUVENAL ROSS [place] Aug 04, 2023 08:24 AM SECONDARY Pain in left toe(s) JUVENAL ROSS [place] Aug 04, 2023 08:24 AM SECONDARY Pain in right toe(s) JUVENAL ROSS [place] Aug 04, 2023 08:24 AM SECONDARY Type 2 diabetes w diabetic peripheral angiopath w/o gangrene JUVENAL ROSS Plan of Treatment: Future Appointments (+ 6 months) and Future Tests (+/- 45 days) The Plan of Treatment section includes future care activities for the patient from all [place] [facility] [place] This section includes future appointments and future orders which are active, pending or scheduled. Future Appointments This section includes appointments that were scheduled to occur 6 months from the date of the Encounter, up to a maximum of 20 appointments. The data comes from all [place] treatment facilities. Appointment Date/Time Appointment Type Appointme nt Facility Name Aug 06, 2023 09:00 AM AMBULATORY [facility] [place] [facility] Aug 20, 2023 08:30 AM AMBULATORY - [facility]IC[facility] [place] [facility] Aug 26, 2023 09:00 AM AMBULATORY - [facility]HAB MEDICIN [facility] [place] [facility] Sep 01, 2023 09:00 AM AMBULATORY - [facility] MEDICIN [facility] [place] [facility] Sep 09, 2023 08:00 AM [facility] [place] [facility] Sep 15, 2023 09:00 AM AMBULATORY - [facility] MEDICIN [facility] [place] [facility] September 22, 2023 09:00 AM AMBULATORY - [facility]HAB MEDICIN [facility] [place] [facility] September 29, 2023 08:00 AM [facility] September 29, 2023 08:30 AM [facility]ATORY - MEDICINE [facility] October 01, 2023 09:00 AM AMBULATORY - [facility] MEDICIN [facility] [place] [facility] October 07, 2023 02:30 PM [facility] October 16, 2023 07:30 AM AMBULAT[facility] Nov 03, 2023 07:30 AM AMBULATORY [facility] Nov 06, 2023 11:00 AM [facility] Nov 10, 2023 07:30 AM AMBULATORY - [facility] MEDICIN [facility] [place] [facility] Nov 18, 2023 11:00 AM AMBULATORY - NONE [facility] [place] [facility] Nov 27, 2023 07:15 AM AMBULATORY - NONE [facility] [place] [facility] Nov 27, 2023 07:45 AM AMBULATORY - NONE [facility] [place] [facility] Dec 01, 2023 08:00 AM AMBULATORY - MEDICINE [facility] Jan 12, 2024 11:25 AM [facility]ORY [facility] [place] [facility] Lab Results: +/- 30 days of the encounter This section includes the Chemistry and Hematology Lab Results on record with [place] for the patient. Radiology Reports and Pathology Reports are provided separately, in subsequent sections. Lab Results This section contains the Chemistry/Hematology Results that were resulted 30 days before or 30 daysafter the date of the Encounter. Date/Time Source Result Type Result - Unit Interpretation Reference Range Comment Jul 17, 2023 07:35 AM [facility] [place] [facility] HEMOGLOBIN A1C PANEL Specimen Type: BLOOD [...] Apr 28, 2023 03:05 PM Reporting Lab: [facility] [place] [facility] [address] [facility] [address] Performing Lab: [facility] [place] [facility] [address] [facility] [address] HEMOGLOBIN A1C 6.5 H 4.0-5.6 Jul 17, 2023 07:35 AM [facility] [place] [facility] BASIC METABOLIC PANEL (fasting) Specimen Type: SERUM No comment entered. Ordering Provider: AYUSH SEGURA F Report Released Date/Time: Apr 28, 2023 03:05 PM Reporting Lab: [facility] [place] [facility] [address] [facility] [address] Performing Lab: [facility] [address] [address] UREA NITROGEN 14 mg/dL 7-25 GLUCOSE 128 mg/dL H 65-100 SODIUM 142 mmol/L 135-145 POTASSIUM 3.9 mmol/L 3.5-5.0 CHLORIDE 107 mmol/L 100-110 CO2 24 meq/L 20-30 CREATININE, Serum 0.69 mg/dL 0.50-1.40 eGFR(CKD-EPI 2020) >90 mL/min >60 Jul 17, 2023 07:35 AM [facility] VITAMIN B12 Specimen Type: SERUM No comment entered. Ordering Provider: AYUSH SEGURA Report Released Date/Time: Apr 28, 2023 03:05 PM Reporting Lab: [facility] [address] [address] Performing Lab: [facility] [address] [address] VITAMIN B12 643 pg/mL 200-900 Jul 17, 2023 07:35 AM [facility] LIVER FUNCTION Specimen Type: SERUM No comment entered. Ordering Provider: AYUSH SEGURA F Report Released Date/Time: Apr 28, 2023 03:05 PM Reporting Lab: [facility] [address] [address] Performing Lab: [facility] [address] [address] PROTEIN,TOTAL 6.2 g/dL 6.0-8.3 ALBUMIN 3.7 g/dL 3.5-5.0 ALKALINE PHOSPHATASE 35 U/L L 40-150 AST 12 U/L 5-34 ALT 13 U/L BILIRUBIN, TOTAL 0.8 mg/dL 0.2-1.2 Jul 17, 2023 07:35 AM [facility] MICROALBUMIN CREATININE RATIO PANEL Specimen Type: URINE No comment entered. Ordering Provider: AYUSH SEGURA F Report Released Date/Time: Apr 28, 2023 03:05 PM Reporting Lab: [address] [address] Performing Lab: [address] [address] MICROALBUMIN/C REATININE RATIO 37.0 mg/g H 0-29.9 MICROALBUMIN,Q UANTITATIVE 3.4 mg/dL RR UNAVAIL CREATININE URINE 91.89 mg/dL Jul 17, 2023 07:35 AM [facility] LIPID PANEL FASTING Specimen Type: SERUM No comment entered. Ordering Provider: AYUSH SEGURA F Report Released Date/Time: Apr 28, 2023 03:05 PM Reporting Lab: [facility] [address] [facility] [address] Performing Lab: [address] [address] CHOLESTEROL 118 mg/dL TRIGLYCERIDE 107 mg/dL 0-150 LDL calculated 58 mg/dL 0-129 CHOL/HDL 3.0 HDL CHOLESTEROL 39 mg/dL L 40-60 Social History: Smoking Status (Most current) and Tobacco Use (All prior to encounter date) This section includes the most current, and the historical, smoking and tobacco- related health factors from the [place] facility where the Encounter took place. Current Smoking Status This section includes the most current smoking, or tobacco-related health factor, from the [place] facility where the Encounter took place. Date/Time Current Smoking Status Comment Gigner ellis Jul 22, 2022 10:00 AM [place]-TOBACCO FORMER USER [facility] Tobacco Use History This section includes a history of the smoking, or tobacco-related health factors, that were collected on or before the date of the Encounter. The data comes from the [place] facility where the Encounter took place. Date/Time Smoking Status/Tobacco Use Comment F acility Jul 22, 2022 10:00 AM VA-TOBACCO QUIT 15 YRS OR MORE [facility] Dec 02, 2018 09:23 AM VA-TOBACCO FORMER USER [facility] Dec 02, 2018 09:23 AM VA-TOBACCO QUIT 15 YRS OR MORE [facility] Apr 20, 2018 10:23 AM VA-TOBACCO FORMER USER [facility] Apr 20, 2018 10:23 AM VA-TOBACCO QUIT 15 YRS OR MORE [facility] Dec 16, 2016 08:40 AM QUIT TOBACCO USE > 7 YEARS AGO [facility] Jul 17, 2015 08:14 AM QUIT TOBACCO USE > 7 YEARS AGO quit many yrs ago [facility] Aug 04, 2009 08:22 AM QUIT TOBACCO USE > 7 YEARS AGO quit over ten years ago [facility] Dec 03, 2007 02:22 PM QUIT TOBACCO USE 1 -7 YEARS AGO [facility] May 21, 2007 08:03 AM QUIT TOBACCO USE 1 -7 YEARS AGO [facility] Jul 25, 2004 09:38 AM CURRENT SMOKER Smokes about 10 cigarettes/day, and trying to quit on his own [facility] Apr 27, 2004 01:32 PM LIFETIME NON-TOBACCO USER [facility] Advance Directives: All historical and current Section Date Range: From patient's date of to the date document was created. This section includes ALL of a patient's completed or amended [place] Advance and Rescinded Directives. The entries below indicate that a directive exists for the patient, but an actual copy is not included with this document. The data comes from all [facility]. Date Advance Directives Provider Source Dec 16, 2011 ADVANCE DIRECTIVE DISCUSSION MARGARITA TERRAZAS [facility] Encounter Notes: All associated encounter notes This section contains the clinical notes associated to the Encounter. Date/Time Encounter Note(s) Provider Source Aug 27, 2023 01:50 PM LETTERS: LOCAL TITLE: PATIENT LETTER (B) STANDARD TITLE: LETTERS DATE OF NOTE: AUG 27, 2023@13:50 ENTRY DATE: AUG 27, 2023@13:50:22 AUTHOR: NAVEEN WITT COSIGNER: URGENCY: STATUS: COMPLETED [facility] [address] [place] [id number] [phone] * ANDREEA OVIEDO [address] [place] [id number] Date: AUG 27, 2023 Dear : This is a reminder letter that your SHOES are ready for pick at [facility] [place] located at [address] [place] [address]. You may picker/puller your shoes and or orthotics at your convenience any day, Friday through Friday between 8:30am and 3:30pm. You do not need an appointment. BUT WE DO REQUEST THAT YOU CALL BEFORE ARRIVING TO MAKE SURE THE PODIATRY HE[facility] PROFESSOR IS AVAILABLE ON THAT DAY. Call [phone] for Naveen if you have any questions. We hope to see you soon, Sincerely, Office Staff for:CHITO SEGURA [facility] Provider Upcoming Appointments: 09/01/2023 09:00 CWM/NO/OCCUPATIONAL THERA 09/15/2023 09:00 CWM/NO/OCCUPATIONAL THERA 09/22/2023 09:00 CWM/NO/OCCUPATIONAL THERA 09/29/2023 08:00 CWM/SO/PODIATRY/ROSS 09/29/2023 08:30 CWM/SO/PHARM/PACT 1 10/01/2023 07:15 CWM/NO/DENTAL/RDH1 AM 10/01/2023 09:00 CWM/NO/OCCUPATIONAL THERA 12/01/2023 08:00 CWM/SO/PODIATRY/ROSS 01/16/2024 10:30 CWM/NO/PACT 3 01/29/2024 08:45 COM CARE-CARDIOLOGY 03/30/2024 07:30 CWM/NO/OPTOMETRY/NAVEEN TATE [facility] Aug 04, 2023 07:19 AM PODIATRY NOTE: LOCAL TITLE: PODIATRY NOTE STANDARD TITLE: PODIATRY NOTE DATE OF NOTE: AUG 04, 2023@07:19 ENTRY DATE: AUG 04, 2023@07:19:59 AUTHOR: JUVENAL ROSS COSIGNER: URGENCY: STATUS: COMPLETED NOTE: HAS RECEIVED BOTH COVID VACCINE DOSES + 3 BOOSTERS AT [facility] LAST SEEN FOR TREATMENT: 06/09/2023 S: Pt. is a 68yo alert WDWN [...] of symptoms is daily with periods of exacerbation and remission. Description of symptoms is of an aching nature. Contributing factors are: shoes and increased activity. PMH: Active problems - Computerized Problem List [...] LISINOPRIL Previous Surgery/Hospitalization: N/A *NOTE: A1c = 6.5 (LAST TAKEN: 06/2023) EPD=556NC RISK: 2 HEIGHT:249 lb [113.2 kg] (12/02/2019 [...] no rashes, ulcers, indurations or nodules noted. NOTE: NEW CONCERN ABOUT A RECURRENT INFLAMMATION PLANTAR ARCH BILAT RT> LT ANAD HAS RESPONDED TO TRIAMCINALONE CR 1% IN THE PAST SO I ORDERED A NEW RX AT THIS TIME TO BE PICKED UP AT PHARMACY VASCULAR: Exam reveals DP & PT pulses [...] present physical-medical status. Protective sensation utilizing a [place] lOg monofilament is 10/10 bilateral. BIOMECHANICAL: Exam is deferred at this time as BEING non-contributory to the cc . A: Clinical Impression is painful onychocryptic dystrophic nails 1-2-3 BILATERAL in the presence of DM & PAIN. [...] due to the underlying medical conditions. RTC: (09/28 & 11/30 @ 8AM) ) *REVIEWED HOME FOOT CARE FEET ARE IN EXCELLENT CONDITION AND I PROVIDED HIM WITH WRITTEN RECOMMENDATIONS FOR FOOT CARE TO BE REVIEWED AT HOME (FOOT CARE TIPS). *DISCUSSED NEW PROTOCOLS AND CALLED [facility] TODAY FOR RESCHEDULING I DISCUSSED THE FINDINGS & PLAN WITH PATIENT (UNCHANGED SINCE PREVIOUS VISIT) & PATIENT AGREES AND UNDERSTANDS PLAN & RECEIVED MIRROR DISCUSSED MAKING A CORN BREAD FOR ME AND OUR VARYING TASTES IN FOODS ORDERED NEW THERAPEUTIC SHOES & 6 WHITE SOCKS Medication Reconciliation: PERFORMED TODAY - SEE BELOW. Outpatient: Has the patient been taking medications as documented in the EMLR? YES: The patient has been taking medications as documented in the EMLR. Essential Medication List for Review used to complete this medication reconciliation. INCLUDED IN THIS LIST: Alphabetical list of active outpatient prescriptions dispensed from this [place] (local) and dispensed from another [place] or [facility] facility (remote) as well as inpatient orders [...] list may not be complete. Please check [employer]. Allergies/ADRs (Tool #5) FACILITY ALLERGY/ADR -------- CLNCL/HLTH RAJESH REPT EFF [id number] TAMSULOSIN [facility] LISINOPRIL [...] [facility] THIMEROSAL Med Recon [place] (Tool #1) INCLUDED IN THIS LIST: Alphabetical list of active outpatient prescriptions dispensed from this [place] (local) and dispensed from another [place] or [facility] facility (remote) as well as inpatient orders (local pending and active), local clinic medications, locally documented non-VA medications, and local prescriptions that have or been discontinued in the past 90 days. Non-VA Meds Last Documented On: Jul 21, 2023 NOTE The display of VA prescriptions dispensed from another [place] or [facility] facility (remote) is limited to active outpatient prescription entries matched to National Drug File at the originating site and may not include some items such as investigational drugs, compounds, etc. NOT INCLUDED IN THIS LIST: Medications self-entered by the patient into personal health records (i.e. [employer]) are NOT included in this list. Non-VA medications documented outside this [place], remote inpatient orders (regardless of status) and remote clinic medications are NOT included in this list. The patient and provider must always discuss medications the patient is taking, regardless of where the medication was dispensed or obtained. Non-VA ASPIRIN 81MG EC TAB TAKE ONE TABLET BY MOUTH EVERY DAY OUTPT ATORVASTATIN CALCIUM 40MG TAB (Status = Active) TAKE ONE-HALF TABLET BY MOUTH EVERY EVENING FOR CHOLESTEROL Rx# [id number] Last Released: 07/02/23 Qty/Days Supply: Rx Expiration Date: 04/28/24 Refills Remainin Indication: FOR HIGH CHOLESTEROL Non-VA CHOLECALCIF 25MCG (D3-1,000UNIT) TAB TAKE ONE TABLET BY MOUTH ONCE DAILY Indication: FOR VITAMIN D DEFICIENCY OUTPT CLONAZEPAM 0.5MG TAB (Status = Discontinued) TAKE ONE TABLET BY MOUTH AT BEDTIME NEEDED FOR PANIC DISORDER (DO NOT TAKE WITH ALCOHOL OR ANY MEDICATIONS THAT ARE SEDATING. DO NOT DRIVE OR OPERATE MACHINERY WHILE TAKING THIS) Rx# [id number] Last Released: 06/18/23 Qty/Days Supply: Rx Expiration Date: 07/17/23 Refills Remainin Indication: FOR PANIC DISORDER OUTPT CLONAZEPAM 0.5MG TAB (Status = Active) TAKE ONE TABLET BY MOUTH AT BEDTIME NEEDED FOR PANIC DISORDER (DO NOT TAKE WITH ALCOHOL OR ANY MEDICATIONS THAT ARE SEDATING. DO NOT DRIVE OR OPERATE MACHINERY WHILE TAKING THIS) Rx# [id number] Last Released: 07/24/23 Qty/Days Supply: Rx Expiration Date: 08/20/23 Refills Remainin Indication: FOR PANIC DISORDER OUTPT CYANOCOBALAMIN 1000MCG TAB (Status = Active) TAKE ONE TABLET BY MOUTH ONCE DAILY Rx# [id number] Last Released: 07/10/23 Qty/Days Supply: Rx Expiration Date: 04/28/24 Refills Remainin Indication: FOR PREVENTION OF VITAMIN B12 DEFICIENCY Non-VA DICLOFENAC 1% GEL (EQV-VOLTAREN) GEL,TOP APPLY TOPICALLY FOUR TIMES A DAY OUTPT DILTIAZEM (EQV-CARDIZEM) 180MG 24HR CAP (Status = Active/Suspended) TAKE ONE CAPSULE BY MOUTH ONCE DAILY Rx# [id number] Last Released: 06/05/23 Qty/Days Supply: Rx Expiration Date: 06/04/24 Refills Remainin OUTPT FINASTERIDE 5MG TAB (Status = Active) TAKE ONE TABLET BY MOUTH DAILY FOR PROSTATE Rx# [id number] Last Released: 06/26/23 Qty/Days Supply: Rx Expiration Date: 02/19/24 Refills Remainin OUTPT FLUTICASONE PROP 50MCG 120D NASAL INHL (Status = Discontinued) INSTILL 2 SPRAYS INTO EACH NOSTRIL ONCE DAILY NEEDED FOR NASAL IRRITATION/INFLAMMATION Rx# [id number] Last Released: 05/28/23 Qty/Days Supply: Rx Expiration Date: 02/19/24 Refills Remainin OUTPT FLUTICASONE PROP 50MCG 120D NASAL INHL (Status = Active/Suspended) INSTILL 2 SPRAYS INTO EACH NOSTRIL ONCE DAILY NEEDED FOR NASAL IRRITATION/INFLAMMATION Rx# [id number] Last Released: QtDays Supply: Rx Expiration Date: 07/21/24 Refills Remainin OUTPT KETOCONAZOLE 2% CREAM (Status = Active/Suspended) APPLY A THIN LAYER TOPICALLY TWICE DAILY FOR ATHLETE'S FOOT Rx# [id number] Last Released: 06/20/23 Qty/Days Supply: 60 Rx Expiration Date: 06/13/24 Refills Remainin Indication: FOR ATHLETE'S FOOT OUTPT METFORMIN HCL 750MG 24HR SA TAB (Status = Discontinued) TAKE TWO TABLETS BY MOUTH EVERY EVENING Rx# [id number] Last Released: 04/25/23 Qty/Days Supply: [id number] Rx Expiration Date: 02/14/24 Refills Remainin Indication: FOR TYPE 2 DIABETES MELLITUS OUTPT METFORMIN HCL 750MG 24HR SA TAB (Status = Active) TAKE TWO TABLETS BY MOUTH EVERY EVENING Rx# [id number] Last Released: 07/24/23 Qty/Days Supply: [id number] Rx Expiration Date: 07/21/24 Refills Remainin Indication: FOR TYPE 2 DIABETES MELLITUS OUTPT METOPROLOL SUCCINATE 25MG SA TAB (Status = Active) TAKE ONE TABLET BY MOUTH TWICE DAILY FOR HEART FAILURE Rx# [id number] Last Released: 07/10/23 Qty/Days Supply: [id number] Rx Expiration Date: 04/28/24 Refills Remainin Indication: FOR CHRONIC HEART FAILURE OUTPT MICONAZOLE NITRATE 2% TOP PWDR (Status = Discontinued) APPLY SMALL AMOUNT TOPICALLY TWICE DAILY Rx# [id number] Last Released: 04/01/23 Qty/Days Supply: 85 Rx Expiration Date: 07/26/23 Refills Remainin Indication: FOR FUNGAL INFECTION OF SKIN OUTPT MICONAZOLE NITRATE 2% TOP PWDR (Status = Active) APPLY SMALL AMOUNT TOPICALLY TWICE DAILY FOR ATHLETE'S FOOT Rx# [id number] Last Released: 07/07/23 Qty/Days Supply: 85/30 Rx Expiration Date: 07/03/24 Refills Remainin Indication: FOR ATHLETE'S FOOT OUTPT MOMETASONE 200MCG/ACTUAT 120D ORAL INHL (Status = Active) INHALE 2 PUFFS BY MOUTH TWICE DAILY FOR CONTROLLER MEDICATION FOR ASTHMA --RINSE MOUTH AFTER EACH USE Rx# [id number] Last Released: 07/03/23 Qty/Days Supply: Rx Expiration Date: 04/23/24 Refills Remainin Indication: FOR CONTROLLER MEDICATION FOR ASTHMA OUTPT MONTELUKAST NA 10MG TAB (Status = Active) TAKE ONE TABLET BY MOUTH EVERY EVENING FOR CONTROLLER MEDICATION FOR ASTHMA Rx# [id number] Last Released: 07/02/23 Qty/Days Supply: Rx Expiration Date: 04/28/24 Refills Remainin Indication: FOR CONTROLLER MEDICATION FOR ASTHMA OUTPT OMEPRAZOLE 20MG EC CAP (Status = Discontinued) TAKE TWO CAPSULES BY MOUTH DAILY FOR STOMACH ACID Rx# [id number] Last Released: 05/28/23 Qty Supply: Rx Expiration Date: 02/19/24 Refills Remainin OUTPT OMEPRAZOLE 20MG EC CAP (Status = Active/Suspended) TAKE TWO CAPSULES BY MOUTH DAILY FOR STOMACH ACID Rx# [id number] Last Released: Supply: Rx Expiration Date: 07/21/24 Refills Remainin Non-VA OTHER CAP/TAB TAKE BUTALBITAL BY MOUTH ONCE DAILY NEEDED About twice a year for headaches. Non-VA SAW PALMETTO CAP/TAB TAKE BY MOUTH OUTPT SEMAGLUTIDE 1MG/0.75ML INJ PEN 3ML (Status = Discontinued) INJECT 1MG SUBCUTANEOUSLY ONCE A WEEK Rx# [id number] Last Released: 04/23/23 Qty/Days Supply: 06/15 Rx Expiration Date: 04/14/24 Refills Remainin Indication: FOR TYPE 2 DIABETES MELLITUS OUTPT SEMAGLUTIDE 1MG/0.75ML INJ PEN 3ML (Status = Active) INJECT 1MG SUBCUTANEOUSLY ONCE A WEEK FOR TYPE 2 DIABETES MELLITUS Rx# [id number] Last Released: 07/23/23 Qty/Days Supply: 06/15 Rx Expiration Date: 06/09/24 Refills Remainin Indication: FOR TYPE 2 DIABETES MELLITUS OUTPT SEMAGLUTIDE 2MG/0.75ML INJ PEN 3ML (Status = Discontinued) INJECT 2MG SUBCUTANEOUSLY ONCE A WEEK FOR TYPE 2 DIABETES MELLITUS Rx# [id number] Last Released: 06/04/23 Qty/Days Supply: 06/17 Rx Expiration Date: 06/04/24 Refills Remainin Indication: FOR TYPE 2 DIABETES MELLITUS OUTPT TADALAFIL 5MG TAB (Status = Discontinued) TAKE ONE TABLET BY MOUTH ONCE DAILY FOR BPH Rx# [id number] Last Released: 07/18/23 Qty/Days Supply: Rx Expiration Date: 02/07/24 Refills Remainin Indication: FOR ERECTILE DYSFUNTION OUTPT TADALAFIL 5MG TAB (Status = Active/Suspended) TAKE ONE TABLET BY MOUTH ONCE DAILY FOR BPH Rx# [id number] Last Released: Qt Supply: Rx Expiration Date: 07/21/24 Refills Remainin Indication: FOR ERECTILE DYSFUNTION OUTPT TERAZOSIN HCL 10MG CAP (Status = Discontinued) TAKE ONE CAPSULE BY MOUTH AT BEDTIME FOR BPH Rx# [id number] Last Released: 05/28/23 Qty/Days Supply: Rx Expiration Date: 12/14/23 Refills Remainin OUTPT TERAZOSIN HCL 10MG CAP (Status = Active/Suspended) TAKE ONE CAPSULE BY MOUTH AT BEDTIME FOR BPH Rx# [id number] Last Released: Qt Supply: Rx Expiration Date: 07/21/24 Refills Remainin OUTPT TRIAMCINOLONE ACETONIDE 0.1% CREAM (Status = Active) APPLY A THIN LAYER TOPICALLY TWICE DAILY FOR ITCHING Rx# [id number] Last Released: 06/09/23 Qty/Days Supply: Rx Expiration Date: 06/09/24 Refills Remainin Indication: FOR ITCHING OUTPT WATER STERILE FOR IRRIGATION (Status = Discontinued) IRRIGATE MODERATE AMOUNT DIRECTED ONCE DAILY FOR C-PAP MACHINE Rx# [id number] Last Released: 07/23/23 Qty/Days Supply: 60 Rx Expiration Date: 07/26/23 Refills Remainin OUTPT WATER STERILE FOR IRRIGATION (Status = Active/Suspended) IRRIGATE MODERATE AMOUNT DIRECTED ONCE DAILY FOR C-PAP MACHINE Rx# [id number] Last Released: Qt Supply: 60 Rx Expiration Date: 07/21/24 Refills Remainin SUPPLIES OUTPT ACCU-CHEK GUIDE (GLUCOSE) TEST STRIP (Status = Discontinued) USE 1 STRIP TO TEST BLOOD SUGARS ONCE DAILY NEEDED DIABETES MELLITUS Rx# [id number] Last Released: Qty/Days Supply: 50180 Rx Expiration Date: 02/19/24 Refills Remainin Indication: DIABETES MELLITUS OUTPT ACCU-CHEK GUIDE (GLUCOSE) TEST STRIP (Status = Active/Suspended) USE 1 STRIP TO TEST BLOOD SUGARS TWO TIMES A WEEK Rx# [id number] Last Released: 06/03/23 Qty/Days Supply: 50/180 Rx Expiration Date: 06/03/24 Refills Remainin Indication: DIABETES MELLITUS OUTPT LANCET,SOFTCLIX (Status = ) USE 1 LANCET ONCE DAILY DIRECTED BY PROVIDER DIABETES MELLITUS Rx# [id number] Last Released: 06/20/23 Qty/Days Supply: 100/90 Rx Expiration Date: 07/26/23 Refills Remainin Indication: DIABETES MELLITUS /es/ JUVENAL ROSS 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
--- OUTSIDE RECORDS SUMMARY | 2024-05-10 07:27 | XMS_ITS ---
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 [place] [facility] [place] Address [address] [place] [id number] Care Team Providers Care Powerhouse Mechanic Supervisor Name Role Phone CHITO SEGURA Primary Care [...] PART A Feb 16, 2018 PART A [id number] YENNY OVIEDO PATIENT MEDICARE (WNR) MEDICARE (M) PART B Feb 16, 2018 PART B [id number] YENNY OVIEDO ES PATIENT MEDICARE (WNR) MEDICARE (M) PART A Oct 17, 2006 PART A [id number] YENNY OVIEDO PATIENT FOR LIFE TFL* Apr 06, 2018 [id number] YENNY OVIEDO PATIENT Selected Encounter This section includes the information on record at [place] for the Encounter. Date/Time Encounter Type Encounter Description Reason Provider Source September 22, 2023 09:00 AM THERAPEUTIC EXERCISES OCCUPATIONAL THERAPY ICD-10-CM M25.312 Other instability, left shoulder MACHON,DEENA E IHE Encounter Template Text not used by [place] Assessments - Encounter Diagnoses This section includes the primary and secondary diagnoses documented for the Encounter. Date/Time Primary/Secondary Diagnosis Diagnosis Name Provider Source September 22, 2023 01:50 PM PRIMARY Other instability, left shoulder MACHON,DEENA E [facility] [place] [facility] Plan of Treatment: Future Appointments (+ 6 months) and Future Tests (+/- 45 days) The Plan of Treatment section includes future care activities for the patient from all [place] treatmentfacilities. This section includes future appointments and future orders which are active, pending or scheduled. Future Appointments This section includes appointments that were scheduled to occur 6 months from the date of the Encounter, up to a maximum of 20 appointments. The data comes from all [place] treatment facilities. Appointment Date/Time Appointment Type Appointme nt Facility Name September 29, 2023 08:00 AM [facility]ORY [facility] September 29, 2023 08:30 AM [facility]ORY - [facility]ICINE [facility] October 01, 2023 09:00 AM AMBULATORY - REHAB MEDICIN E [facility] [place] [facility] October 07, 2023 02:30 PM AMBULATORY - REHAB MEDICIN E [facility] [place] [facility] October 16, 2023 07:30 AM AMBULATORY - REHAB MEDICIN E [facility] [place] [facility] Nov 03, 2023 07:30 AM AMBULATORY - REHAB MEDICIN E [facility] [place] [facility] Nov 06, 2023 11:00 AM AMBULATORY - MEDICINE [facility] [place] [facility] Nov 10, 2023 07:30 AM AMBULATORY - REHAB MEDICIN E [facility] [place] [facility] Nov 18, 2023 11:00 AM AMBULATORY - NONE [facility] [place] [facility] Nov 27, 2023 07:15 AM AMBULATORY - NONE [facility] [place] [facility] Nov 27, 2023 07:45 AM AMBULATORY - NONE [facility] [place] [facility] Dec 01, 2023 08:00 AM [facility]ORY [facility] Jan 12, 2024 11:25 AM AMBULATORY - MEDICINE [facility] [place] [facility] Jan 12, 2024 11:40 AM AMBULATORY - MEDICINE [place] [facility] [place] [facility] Jan 22, 2024 01:00 PM AMBULATORY - MEDICINE [facility] [place] [facility] Jan 29, 2024 08:45 AM AMBULATORY - MEDICINE [facility] [place] [facility] Feb 16, 2024 08:00 AM [place] [place] Feb 17, 2024 07:30 AM AMBULATORY - NONE [facility] [place] [facility] Mar 16, 2024 09:30 AM [facility] Social History: Smoking Status (Most current) and [...] 21, 2023 01:30 PM VA-TOBACCO FORMER USER [place] [facility] Tobacco Use History This section includes a history of the smoking, or tobacco-related health factors, that were collected on or before the date of the Encounter. The data comes from the [place] facility where the Encounter took place. Date/Time Smoking Status/Tobacco Use Comment Wilberto holbrook Jul 21, 2023 01:30 PM VA-TOBACCO QUIT 15 YRS OR MORE [place] [facility] [place] [facility] Mar 28, 2021 03:28 PM VA-TOBACCO FORMER USER [place] [facility] [place] [facility] Mar 28, 2021 03:28 PM VA-TOBACCO QUIT 15 YRS OR MORE [facility] [place] [facility] Dec 02, 2019 09:36 AM VA-TOBACCO NEVER USED [facility] [place] [facility] Apr 23, 2005 10:19 AM QUIT TOBACCO USE IN PAST YEAR [place] [facility] [place] [facility] Advance Directives: All historical and current Section Date Range: From patient's date of to the date document was created. This section includes ALL of a patient's completed or amended [place] Advance and Rescinded Directives. The entries below indicate that a directive exists for the patient, but an actual copy is not included with this document. The data comes from all [place] facilities. Date Advance Directives Provider Source Dec 16, 2011 ADVANCE DIRECTIVE DISCUSSION MARGARITA TERRAZAS [place] Encounter Notes: All associated encounter notes This section contains the clinical notes associated to the Encounter. 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 Special instructions: passive/active ROM and gentle theraband. DOS: 02/08/2024 30 weeks 3 days post-op SUBJECTIVE: Pt reports shoulder is alright. He feels he needs to work on strength. His shoulder was bothering him yesterday from driving 6 hours. Pain: 2-3/10 currently OBJECTIVE: THERAPEUTIC EXERCISE: *UBE 2' forward, 2' backward 2.0 *hiram into flexion, w/ 10 second hold on L, x10 *wall slides into flexion, 1x10 *chest press w/ 2# weight, 2x10 *Supine shoulder supine with 2# weight, 2x10 *shoulder rows w/ blue band, 2x10 Access Code: [email or web address] URL: [email or web address] Date: 09/01/2023 Prepared by: [place] [facility] Exercises - Supine Shoulder Flexion AAROM [...] - 5 reps - 5 hold - Supine Shoulder Alphabet - 1 x daily - 7 x weekly - 3 sets - 10 reps - Standing Bent Over Single Arm Scapular Row with Table Support - 1 x daily - 7 x weekly - 3 sets - 10 reps - Seated Shoulder Shrugs - 1 x daily - 7 x weekly - 3 sets - 10 reps - Supine Scapular Protraction in Flexion with Dumbbells - 1 x daily - 7 x weekly - 3 sets - 10 reps MINUTES: 16 MANUAL THERAPY: *mobilization to anterior shoulder musculature/biceps musculature, supine MINUTES: 8 THERAPEUTIC DYNAMIC ACTIVITIES: MINUTES: NEUROMUSCULAR EDUCATION: MINUTES: OTHER: MINUTES: MODALITIES: *MHP to L shoulder prior to tx MINUTES: 3 [] Contraindication screen completed prior to modality [] Skin intact pre/post SELF CARE/EDUCATION: MINUTES: Patient education was provided for all aspects of care during this clinical encounter. ASSESSMENT: Pt tolerated tx well. Reintroduced rows to tx and HEP.; crepitation noted in scapular musculature during rows. continued w/ 2# weight w/ supine shoulder flexion, added 2# weight w/ supine chest press. Pt tolerated and performed well. Ttp in anterior shoulder musculature. No increase in pain during tx. PLAN: continue w/ OT POC; modify tx as needed. progress w/ HEP as tolerated. pt is in agreement w/ this POC. This treatment was primarily performed by TRISTIAN Rose, however, I, Deena Pike, MS OTR/[place]wart, [place], was present during the course of this treatment in its entirety providing direct supervision for this student, I agree with treatment and plan of care as stated above. /lisa/ Deena Pike, MS CHRISTINAR/LESLEY William Occupational Therapist Signed: 09/22/2023 13:50 Receipt Acknowledged By: 09/22/2023 13:53 /lisa/ [employer] OCCUPATIONAL THERAPY STUDENT DEENA PIKE [facility]
--- OUTSIDE RECORDS SUMMARY | 2024-05-10 07:27 | XMS_ITS ---
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 [place] [facility] [place] Address [address] [place] [id number] Care Team Providers Care Surfboard Designer Name Role Phone CHITO SEGURA Primary Care [...] PART A Feb 16, 2018 PART A [id number] YENNY OVIEDO ES PATIENT MEDICARE (WNR) MEDICARE (M) PART B Feb 16, 2018 PART B [id number] YENNY OVIEDO ES PATIENT MEDICARE (WNR) MEDICARE (M) PART A Oct 17, 2006 PART A [id number] YENNY OVIEDO PATIENT FOR LIFE TFL* Apr 06, 2018 [id number] YENNY OVIEDO PATIENT Selected Encounter This section includes the information on record at [place] for the Encounter. Date/Time Encounter Type Encounter Description Reason Provider Source Aug 26, 2023 09:00 AM THERAPEUTIC EXERCISES OCCUPATIONAL THERAPY ICD-10-CM M25.312 Other instability, left shoulder MACHON,NAN E IHE Encounter Template Text not used by [place] Assessments - Encounter Diagnoses This section includes the primary and secondary diagnoses documented for the Encounter. Date/Time Primary/Secondary Diagnosis Diagnosis Name Provider Source Aug 26, 2023 11:51 AM PRIMARY Other instability, left shoulder MACHON,NAN E [place] [facility] [place] [facility] Plan of Treatment: Future Appointments (+ 6 months) and Future Tests (+/- 45 days) The Plan of Treatment section includes future care activities for the patient from all [place] treatmentfacilities. This section includes future appointments and future orders which are active, pending or scheduled. Future Appointments This section includes appointments that were scheduled to occur 6 months from the date of the Encounter, up to a maximum of 20 appointments. The data comes from all [place] treatment facilities. Appointment Date/Time Appointment Type Appointme nt Facility Name Sep 01, 2023 09:00 AM AMBULATORY - REHAB MEDICIN E [facility] [place] [facility] Sep 09, 2023 08:00 AM AMBULATORY - MEDICINE [facility] [place] [facility] Sep 15, 2023 09:00 AM AMBULATORY - REHAB MEDICIN E [facility] [place] [facility] September 22, 2023 09:00 AM AMBULATORY - REHAB MEDICIN E [facility] [place] [facility] September 29, 2023 08:00 AM [facility] September 29, 2023 08:30 AM [facility] October 01, 2023 09:00 AM AMBULATORY - REHAB MEDICIN E [facility] [place] [facility] October 07, 2023 02:30 PM AMBULATORY - REHAB MEDICIN E [facility] [place] [facility] October 16, 2023 07:30 AM AMBULATORY - REHAB MEDICIN E [facility] [place] [facility] Nov 03, 2023 07:30 AM AMBULATORY - REHAB MEDICIN E [facility] [place] [facility] Nov 06, 2023 11:00 AM AMBULATORY - MEDICINE [facility] [place] [facility] Nov 10, 2023 07:30 AM AMBULATORY - REHAB MEDICIN E [facility] [place] [facility] Nov 18, 2023 11:00 AM AMBULATORY - NONE [facility] [place] [facility] Nov 27, 2023 07:15 AM AMBULATORY - NONE [facility] [place] [facility] Nov 27, 2023 07:45 AM AMBULATORY - NONE [facility] [place] [facility] Dec 01, 2023 08:00 AM AMBULATORY - MEDICINE [facility] [place] Jan 12, 2024 11:25 AM AMBULATORY - MEDICINE [facility] [place] [facility] Jan 12, 2024 11:40 AM AMBULATORY - MEDICINE [facility] [place] [facility] Jan 22, 2024 01:00 PM AMBULATORY - MEDICINE [facility] [place] [facility] Jan 29, 2024 08:45 AM AMBULATORY - MEDICINE [facility] [place] [facility] Social History: Smoking Status (Most current) and Tobacco Use (All prior to encounter date) This section includes the most current, and the historical, smoking and tobacco- related health factors from the [place] facility where the Encounter took place. Current Smoking Status This section includes the most current smoking, or tobacco-related health factor, from the [place] facility where the Encounter took place. Date/Time Current Smoking Status Comment Facil ity Jul 21, 2023 01:30 PM VA-TOBACCO FORMER USER [place] [facility] [place] [facility] Tobacco Use History This section includes a history of the smoking, or tobacco-related health factors, that were collected on or before the date of the Encounter. The data comes from the [place] facility where the Encounter took place. Date/Time Smoking Status/Tobacco Use Comment F acility Jul 21, 2023 01:30 PM VA-TOBACCO QUIT 15 YRS OR MORE [facility] [place] [facility] Mar 28, 2021 03:28 PM VA-TOBACCO FORMER USER [facility] [place] [facility] Mar 28, 2021 03:28 PM VA-TOBACCO QUIT 15 YRS OR MORE [facility] [place] [facility] Dec 02, 2019 09:36 AM VA-TOBACCO NEVER USED [facility] [place] [facility] Apr 23, 2005 10:19 AM QUIT TOBACCO USE IN PAST YEAR [facility] [place] [facility] Advance Directives: All historical and current Section Date Range: From patient's date of to the date document was created. This section includes ALL of a patient's completed or amended [place] Advance and Rescinded Directives. The entries below indicate that a directive exists for the patient, but an actual copy is not included with this document. The data comes from all [place] facilities. Date Advance Directives Provider Source Dec 16, 2011 ADVANCE DIRECTIVE DISCUSSION MARGARITA TERRAZAS [place] Encounter Notes: All associated encounter notes This section contains the clinical notes associated to the Encounter. 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 Special instructions: passive/active ROM and gentle theraband. DOS: 02/08/2024 25 weeks 5 days post-op SUBJECTIVE: Pt reports that his surgeon didn't seem to be concerned. He's still having the crepitation in the shoulder. Pain Level: 2/10 OBJECTIVE: THERAPEUTIC EXERCISE: *UBE 2' forward, 2' backward 2.0 *hiram into flexion, w/ 10 second hold on L, x10 *wall slides into flexion, 1x10 ADDED: *ABC's in supine, x2, on L *shoulder shrugs, seated, 2x10 *single arm bent rows, 2x10 Access Code: [email or web address] URL: [email or web address] Date: 08/26/2023 Prepared by: [place] [facility] Exercises - Supine Shoulder Flexion AAROM with [...] - 3 sets - 10 reps MINUTES: 17 MANUAL THERAPY: *mobilization to anterior shoulder musculature/biceps musculature, supine *taping of AC joint MINUTES: 10 THERAPEUTIC DYNAMIC ACTIVITIES: MINUTES: NEUROMUSCULAR EDUCATION: MINUTES: OTHER: MINUTES: MODALITIES: *MHP to L shoulder prior to tx MINUTES: 3 [] Contraindication screen completed prior to modality [] Skin intact pre/post SELF CARE/EDUCATION: MINUTES: Patient education was provided for all aspects of care during this clinical encounter. ASSESSMENT: pt tolerated tx well this date. palpable crepitation at AC joint. pt reports the shoulder is just sore. decreased tightness noted throughout anterior shoulder musculature, as well as decreased ttp per patient. added scapular stab TE which he tolerated well. crepitation noted in periscap musculature during single arm bent rows. also provided k-tape for more stabilization of AC joint. pt was instructed in care for removing k-tape. PLAN: continue w/ OT POC; modify tx as needed. progress w/ HEP as tolerated. pt is in agreement w/ this POC. /lisa/ Nan Pike, MS OTR/Stewart, CHT Occupational Therapist Signed: 08/26/2023 11:51 NAN PIKE [facility]L [facility]
--- OUTSIDE RECORDS SUMMARY | 2024-05-10 07:27 | XMS_ITS | Encounter Summary ---
Author Name [facility] [place] [facility] Address [address] [place] [id number] Care Team Providers Care Supply Chain Tech Name Role Phone CHITO SEGURA Primary Care [...] PART A Feb 16, 2018 PART A [id number] YENNY OVIEDO ANDREW PATIENT MEDICARE (WNR) MEDICARE (M) PART B Feb 16, 2018 PART B [id number] YENNY OVIEDO ANDREW PATIENT MEDICARE (WNR) MEDICARE (M) PART A Oct 17, 2006 PART A [id number] YENNY OVIEDO PATIENT FOR LIFE TFL* Apr 06, 2018 [id number] YENNY OVIEDO PATIENT Selected Encounter This section includes the information on record at [place] for the Encounter. Date/Time Encounter Type Encounter Description Reason Provider Source Sep 09, 2023 08:00 AM DIABETIC CUSTOM MOLDED SHOE PODIATRY ICD-10-CM E11.9 Type 2 diabetes mellitus without complications NAVEEN WITT [place] Encounter Template Text not used by [place] Assessments - Encounter Diagnoses This section includes the primary and secondary diagnoses documented for the Encounter. Date/Time Primary/Secondary Diagnosis Diagnosis Name Provider Source Sep 09, 2023 03:32 PM PRIMARY Type 2 diabetes mellitus without complications NAVEEN WITT [place] Plan of Treatment: Future Appointments (+ 6 months) and Future Tests (+/- 45 days) The Plan of Treatment section includes future care activities for the patient [facility] [place] [facility] This section includes future appointments and future orders which are active, pending or scheduled. Future Appointments This section includes appointments that were scheduled to occur 6 months from the date of the Encounter, up to a maximum of 20 appointments. The data comes from all [place] treatment facilities. Appointment Date/Time Appointment Type Appointme nt Facility Name Sep 15, 2023 09:00 AM AM[facility]ULATORY [facility] [place] [facility] September 22, 2023 09:00 AM AMBULATORY [facility] [place] [facility] September 29, 2023 08:00 AM [facility] September 29, 2023 08:30 AM [facility] October 01, 2023 09:00 AM AMBULATORY - [facility] [place] [facility] October 07, 2023 02:30 PM AMBULATORY - [facility] [place] [facility] October 16, 2023 07:30 AM AMBULATORY - [facility] [place] [facility] Nov 03, 2023 07:30 AM AMBULATORY - [facility] [place] [facility] Nov 06, 2023 11:00 AM [facility] [place] [facility] Nov 10, 2023 07:30 AM AMBULATORY - [facility] [place] [facility] Nov 18, 2023 11:00 AM AMBULATORY - NONE [facility] [place] [facility] Nov 27, 2023 07:15 AM AMBULATORY - NONE [facility] [place] [facility] Nov 27, 2023 07:45 AM AMBULATORY - NONE [facility] [place] [facility] Dec 01, 2023 08:00 AM [facility]ULATORY [facility]IC[facility] Jan 12, 2024 11:25 AM [facility] [place] [facility] Jan 12, 2024 11:40 AM [facility] [place] [facility] Jan 22, 2024 01:00 PM AM[facility]UL[facility]ORY [facility] [place] [facility] Jan 29, 2024 08:45 AM [facility] [place] [facility] Feb 16, 2024 08:00 AM [facility]ATORY [facility] Feb 17, 2024 07:30 AM AM[facility]ULATORY - NONE [facility] [place] [facility] Social History: Smoking Status (Most current) and [...] Current Smoking Status Comment Ginger ity Jul 22, 2022 10:00 AM VA-TOBACCO QUIT 15 YRS OR MORE [place] Tobacco Use History This section includes a history of the smoking, or tobacco-related health factors, that were collected on or before the date of the Encounter. The data comes from the [place] facility where the Encounter took place. Date/Time Smoking Status/Tobacco Use Comment F acility Jul 22, 2022 10:00 AM VA-TOBACCO QUIT 15 YRS OR MORE [place] Dec 02, 2018 09:23 AM VA-TOBACCO FORMER USER [place] Dec 02, 2018 09:23 AM VA-TOBACCO QUIT 15 YRS OR MORE [place] Apr 20, 2018 10:23 AM VA-TOBACCO FORMER USER [place] Apr 20, 2018 10:23 AM VA-TOBACCO QUIT 15 YRS OR MORE [place] Dec 16, 2016 08:40 AM QUIT TOBACCO USE > 7 YEARS AGO [place] Jul 17, 2015 08:14 AM QUIT TOBACCO USE > 7 YEARS AGO quit many yrs ago [place] Aug 04, 2009 08:22 AM QUIT TOBACCO USE > 7 YEARS AGO quit over ten years ago [place] Dec 03, 2007 02:22 PM QUIT TOBACCO USE 1 -7 YEARS AGO [place] May 21, 2007 08:03 AM QUIT TOBACCO USE 1 -7 YEARS AGO [place] Jul 25, 2004 09:38 AM CURRENT SMOKER Smokes about 10 cigarettes/day, and trying to quit on his own [place] Apr 27, 2004 01:32 PM LIFETIME NON-TOBACCO USER [place] Advance Directives: All historical and current Section [...] 16, 2011 ADVANCE DIRECTIVE DISCUSSION MARGARITA TERRAZAS [place] Encounter Notes: All associated encounter notes This section contains the clinical notes associated to the Encounter. Date/Time Encounter Note(s) Provider Source Sep 09, 2023 03:31 PM PODIATRY NOTE: LOCAL TITLE: PODIATRY NOTE STANDARD TITLE: PODIATRY NOTE DATE OF NOTE: SEP 09, 2023@15:31 ENTRY DATE: SEP 09, 2023@15:31:57 AUTHOR: NAVEEN WITT EXP COSIGNER: URGENCY: STATUS: COMPLETED PODIATRY NOTE Has ADDENDA S: Pt presents for pickup of new therapeutic shoes. O: No new foot health issues at this time. A:Type 2 Diabetes Mellitus P: Dispensed Dr. Karina Blanco [id number] size 14 Medium. They were checked for fit by palpating the length, width and height in the toe box area. They were very comfortable and was instructed to wear them around the house to make sure they fit properly. Pt was informed that if he elected to wear them out on the street that they will not be able to returned within 30 days of dispensing of shoes. Pt was Instructed to make a follow up appt. in the event the shoes do not fit properly-and to bring shoes to that visit. /es/ NAVEEN WITT HEALTH FIRE OFFICER Signed: 09/09/2023 15:32 09/29/2023 ADDENDUM STATUS: COMPLETED shoe high back caused a friction ulcer on the Right upper tendon area, about the size of a pea. Healing well, pt has discontinued using the shoes and will try a different style. /andrew/ NAVEEN WITT HEALTH FIRE OFFICER Signed: 09/29/2023 08:06 NAVEEN WITT
--- OUTSIDE RECORDS SUMMARY | 2024-05-10 07:27 | XMS_ITS | Encounter Summary ---
Author Name [facility] [place]) Organization [facility] Address [address] [place] [id number] Care Team Providers Care Treasury Analyst Name Role Phone CHITO SEGURA Primary Care [...] PART A Feb 16, 2018 PART A [id number] YENNY OVIEDO PATIENT MEDICARE (WNR) MEDICARE (M) PART B Feb 16, 2018 PART B [id number] YENNY OVIEDO ANDREW PATIENT MEDICARE (WNR) MEDICARE (M) PART A Oct 17, 2006 PART A [id number] [phone] [id number] YENNY OVIEDO PATIENT FOR LIFE TFL* Apr 06, 2018 [id number] YENNY OVIEDO PATIENT Selected Encounter This section includes the information on record at [place] for the Encounter. Date/Time Encounter Type Encounter Description Reason Provider Source Nov 06, 2023 11:00 AM DIABETIC CUSTOM MOLDED SHOE PODIATRY ICD-10-CM E11.9 Type 2 diabetes mellitus without complications NAVEEN WITT [place] Encounter Template Text not used by [place] Assessments - Encounter Diagnoses This section includes the primary and secondary diagnoses documented for the Encounter. Date/Time Primary/Secondary Diagnosis Diagnosis Name Provider Source Nov 06, 2023 02:03 PM PRIMARY Type 2 diabetes mellitus without complications NAVEEN WITT [place] Plan of Treatment: Future Appointments (+ 6 months) and Future Tests (+/- 45 days) The Plan of Treatment section includes future care activities for the [facility] [place] [facility]. This section includes future appointments and future orders which are active, pending or scheduled. Future Appointments This section includes appointments that were scheduled to occur 6 months from the date of the Encounter, up to a maximum of 20 appointments. The data comes from all [place] treatment facilities. Appointment Date/Time Appointment Type Appointme nt Facility Name Nov 10, 2023 07:30 AM AMBULATORY [facility] [place] [facility] Nov 18, 2023 11:00 AM AMBULATORY - NONE [facility] [place] [facility] Nov 27, 2023 07:15 AM AMBULATORY - NONE [facility] [place] [facility] Nov 27, 2023 07:45 AM AMBULATORY - NONE [facility] [place] [facility] Dec 01, 2023 08:00 AM [facility] Jan 12, 2024 11:25 AM [facility] [place] [facility] Jan 12, 2024 11:40 AM [facility] [place] [facility] Jan 22, 2024 01:00 PM AM[facility]ULATORY [facility] [place] [facility] Jan 29, 2024 08:45 AM [facility] [place] [facility] Feb 16, 2024 08:00 AM [facility]ATORY [facility] Feb 17, 2024 07:30 AM AMBULATORY - NONE [facility] [place] [facility] Mar 16, 2024 09:30 AM AMBULATORY - NONE [facility] [place] [facility] Mar 30, 2024 07:30 AM [facility] [place] [facility] Apr 06, 2024 09:00 AM [facility] Apr 12, 2024 08:00 AM [facility]ATORY - [facility]IC[facility] Apr 12, 2024 11:00 AM [facility] [place] [facility] Apr 12, 2024 01:30 PM [facility] [place] [facility] Apr 30, 2024 01:40 PM [facility] Social History: Smoking Status (Most current) [...] ity Jul 22, 2022 10:00 AM VA-TOBACCO FORMER USER [place] Tobacco Use History This section includes a history of the smoking, or tobacco-related health factors, that were collected on or before the date of the Encounter. The data comes from the [place] facility where the Encounter took place. Date/Time Smoking Status/Tobacco Use Comment F acility Jul 22, 2022 10:00 AM VA-TOBACCO QUIT 15 YRS OR MORE [place] Dec 02, 2018 09:23 AM VA-TOBACCO FORMER USER [place] Dec 02, 2018 09:23 AM VA-TOBACCO QUIT 15 YRS OR MORE [place] Apr 20, 2018 10:23 AM VA-TOBACCO FORMER USER [place] Apr 20, 2018 10:23 AM VA-TOBACCO QUIT 15 YRS OR MORE [place] Dec 16, 2016 08:40 AM QUIT TOBACCO USE > 7 YEARS AGO [place] Jul 17, 2015 08:14 AM QUIT TOBACCO USE > 7 YEARS AGO quit many yrs ago [place] Aug 04, 2009 08:22 AM QUIT TOBACCO USE > 7 YEARS AGO quit over ten years ago [place] Dec 03, 2007 02:22 PM QUIT TOBACCO USE 1 -7 YEARS AGO [place] May 21, 2007 08:03 AM QUIT TOBACCO USE 1 -7 YEARS AGO [place] Jul 25, 2004 09:38 AM CURRENT SMOKER Smokes about 10 cigarettes/day, and trying to quit on his own [place] Apr 27, 2004 01:32 PM LIFETIME NON-TOBACCO USER [place] Advance Directives: All historical and current Section [...] 16, 2011 ADVANCE DIRECTIVE DISCUSSION MARGARITA TERRAZAS [place] Encounter Notes: All associated encounter notes This section contains the clinical notes associated to the Encounter. Date/Time Encounter Note(s) Provider Source Nov 06, 2023 02:02 PM PODIATRY NOTE: LOCAL TITLE: PODIATRY NOTE STANDARD TITLE: PODIATRY NOTE DATE OF NOTE: NOV 06, 2023@14:02 ENTRY DATE: NOV 06, 2023@14:02:11 AUTHOR: NAVEEN WITT EXP COSIGNER: URGENCY: STATUS: COMPLETED S: Pt presents for pickup of new therapeutic shoes. O: No new foot health issues at this time. A:Type 2 Diabetes Mellitus P: Dispensed mtNey molina 9702-3L size 14D. They were checked for fit by palpating [...] properly-and to bring shoes to that visit. /andrew/ NAVEEN WITT HEALTH SPA HOST Signed: 11/06/2023 14:03 NAVEEN WITT
--- OUTSIDE RECORDS SUMMARY | 2024-05-10 07:27 | XMS_ITS | Encounter Summary ---
Author Name [facility] ([place] Organization [facility] of [facility] ([place]) Address [address] [place] [id number] Care Team Providers Care Industrial Engineering Technician Name Role Phone CHITO SEGURA Primary [...] PART A Feb 16, 2018 PART A [id number] YENNY OVIEDO ANDREW PATIENT MEDICARE (WNR) MEDICARE (M) PART B Feb 16, 2018 PART B [id number] YENNY OVIEDO ANDREW PATIENT MEDICARE (WNR) MEDICARE (M) PART A Oct 17, 2006 PART A [id number] YENNY OVIEDO PATIENT FOR LIFE TFL* Apr 06, 2018 [id number] YENNY OVIEDO PATIENT Selected Encounter This section includes the information on record at [place] for the Encounter. Date/Time Encounter Type Encounter Description Reason Provider Source September 29, 2023 08:00 AM OFFICE O/P EST LOW 20 MIN PODIATRY ICD-10-CM L60.3 Nail dystrophy JUVENAL ROSS Ayah Encounter Template Text not used by [place] Assessments - Encounter Diagnoses This section includes the primary and secondary diagnoses documented for the Encounter. Date/Time Primary/Secondary Diagnosis Diagnosis Name Provider Source September 29, 2023 08:23 AM PRIMARY Nail dystrophy JUVENAL ROSS September 29, 2023 08:23 AM SECONDARY Ingrowing nail JUVENAL ROSS ROBERT September 29, 2023 08:23 AM SECONDARY Pain in left toe(s) JUVENAL ROSS ROBERT September 29, 2023 08:23 AM SECONDARY Pain in right toe(s) JUVENAL ROSS ROBERT September 29, 2023 08:23 AM SECONDARY Type 2 diabetes w diabetic peripheral angiopath w/o gangrene JUVENAL ROSS Plan of Treatment: Future Appointments (+ 6 months) and Future Tests (+/- 45 days) The Plan of Treatment section includes future care activities for the patient from all [place] treatmentfacilities. This section includes future appointments and future orders which are active, pending or scheduled. Future Appointments This section includes appointments that were scheduled to occur 6 months from the date of the Encounter, up to a maximum of 20 appointments. The data comes from all [place] treatment facilities. Appointment Date/Time Appointment Type Appointme nt Facility Name October 01, 2023 09:00 AM AMBULATORY - [facility] October 07, 2023 02:30 PM AMBULATORY - [facility] October 16, 2023 07:30 AM AMBULATORY - [facility]IC[facility] Nov 03, 2023 07:30 AM AMBULATORY - [facility]IC[facility] Nov 06, 2023 11:00 AM [facility] Nov 10, 2023 07:30 AM AMBULATORY - [facility]IC[facility] Nov 18, 2023 11:00 AM AMBULATORY - NONE [facility] Nov 27, 2023 07:15 AM AMBULATORY - NONE [facility] Nov 27, 2023 07:45 AM AMBULATORY - NONE [facility] Dec 01, 2023 08:00 AM [facility] [place] Jan 12, 2024 11:25 AM [facility] Jan 12, 2024 11:40 AM [facility] Jan 22, 2024 01:00 PM [facility]ORY [facility] Jan 29, 2024 08:45 AM [facility]UL[facility] Feb 16, 2024 08:00 AM [facility] Feb 17, 2024 07:30 AM AMBULATORY - NONE [facility] Mar 16, 2024 09:30 AM AMBULATORY - NONE [facility] Mar 30, 2024 07:30 AM [facility]ORY [facility] Social History: Smoking Status (Most current) [...] 22, 2022 10:00 AM VA-TOBACCO FORMER USER [facility] Tobacco Use History This section includes a history of the smoking, or tobacco-related health factors, that were collected on or before the date of the Encounter. The data comes from the [place] facility where the Encounter took place. Date/Time Smoking Status/Tobacco Use Comment F yusef Jul 22, 2022 10:00 AM VA-TOBACCO QUIT 15 YRS OR MORE [facility] Dec 02, 2018 09:23 AM VA-TOBACCO FORMER USER [facility] Dec 02, 2018 09:23 AM VA-TOBACCO QUIT 15 YRS OR MORE [facility] Apr 20, 2018 10:23 AM VA-TOBACCO FORMER USER [facility] Apr 20, 2018 10:23 AM VA-TOBACCO QUIT 15 YRS OR MORE [facility] Dec 16, 2016 08:40 AM QUIT TOBACCO USE > 7 YEARS AGO [facility] Jul 17, 2015 08:14 AM QUIT TOBACCO USE > 7 YEARS AGO quit many yrs ago [facility] Aug 04, 2009 08:22 AM QUIT TOBACCO USE > 7 YEARS AGO quit over ten years ago [facility] Dec 03, 2007 02:22 PM QUIT TOBACCO USE 1 -7 YEARS AGO [facility] May 21, 2007 08:03 AM QUIT TOBACCO USE 1 -7 YEARS AGO [facility] Jul 25, 2004 09:38 AM CURRENT SMOKER Smokes about 10 cigarettes/day, and trying to quit on his own [facility] Apr 27, 2004 01:32 PM LIFETIME NON-TOBACCO USER [facility] Advance Directives: All historical and current Section [...] 16, 2011 ADVANCE DIRECTIVE DISCUSSION MARGARITA TERRAZAS [facility] Encounter Notes: All associated encounter notes This section contains the clinical notes associated to the Encounter. Date/Time Encounter Note(s) Provider Source Oct 27, 2023 02:29 PM LETTERS: LOCAL TITLE: PATIENT LETTER (B) STANDARD TITLE: LETTERS DATE OF NOTE: OCT 27, 2023@14:29 ENTRY DATE: OCT 27, 2023@14:29:29 AUTHOR: NAVEEN WITT COSIGNER: URGENCY: STATUS: COMPLETED [facility] [address] [place] [address] [phone] * [phone] * ANDREEA OVIEDO [address] [place] [id number] Date: OCT 27, 2023 Dear [place]: This is a reminder letter that your SHOES are ready for pick at the [facility] in [facility] located at [address] [place] [address]. You may pecan picker your shoes and or orthotics at your convenience any day, Friday through Friday between 8:30am and 3:30pm. You do not need an appointment. BUT WE DO REQUEST THAT YOU CALL BEFORE ARRIVING TO MAKE SURE THE PODIATRY HEALTH AUDIO VISUAL FACILITIES ENGINEER IS AVAILABLE ON THAT DAY. Call [phone] for Naveen if you have any questions. We hope to see you soon, Sincerely, Office Staff for:CHITO SEGURA [facility] Care Provider Upcoming Appointments: 11/03/2023 07:30 CWM/NO/OCCUPATIONAL THERA 11/10/2023 07:30 CWM/NO/OCCUPATIONAL THERA 11/27/2023 07:15 CWM/NO/DENTAL/RDH1 AM 12/01/2023 08:00 CWM/SO/PODIATRY/CODY 01/16/2024 10:30 CWM/NO/PACT 3 01/29/2024 08:45 COM CARE-CARDIOLOGY 02/16/2024 08:00 CWM/SO/PODIATRY/CODY 03/30/2024 07:30 CWM/NO/OPTOMETRY/ALCON 04/06/2024 09:00 CWM/SO/PHARM/PACT 1 NAVEEN WITT [facility] September 29, 2023 07:14 AM PODIATRY NOTE: LOCAL TITLE: PODIATRY NOTE STANDARD TITLE: PODIATRY NOTE DATE OF NOTE: SEPTEMBER 29, 2023@07:14 ENTRY DATE: SEPTEMBER 29, 2023@07:14:27 AUTHOR: JUVENAL ROSS COSIGNER: URGENCY: STATUS: COMPLETED NOTE: HAS RECEIVED BOTH COVID VACCINE DOSES + 3 BOOSTERS AT [facility] LAST SEEN FOR TREATMENT: 08/04/2023 S: Pt. is a 68yo alert WDWN [...] *NOTE: A1c = 6.5 (LAST TAKEN: 06/2023) QLE=596BM RISK: 2 HEIGHT:249 lb [113.2 kg] (12/02/2019 [...] present physical-medical status. Protective sensation utilizing a [place] lOg monofilament is 10/10 bilateral. BIOMECHANICAL: Exam is deferred at this time as BEING non-contributory to the cc . A: Clinical Impression is painful onychocryptic dystrophic nails 1-2-3-4-5 RT & 1- 2-3 LEFT in the presence of DM & [...] due to the underlying medical conditions. RTC: ( 11/30 & 02/15 @ 8AM) ) *REVIEWED HOME FOOT CARE FEET ARE IN EXCELLENT CONDITION AND I PROVIDED HIM WITH WRITTEN RECOMMENDATIONS FOR FOOT CARE TO BE REVIEWED AT HOME (FOOT CARE TIPS). *DISCUSSED NEW PROTOCOLS AND CALLED [facility] TODAY FOR RESCHEDULING I DISCUSSED THE FINDINGS & PLAN WITH PATIENT (UNCHANGED SINCE PREVIOUS VISIT) & PATIENT AGREES AND UNDERSTANDS PLAN & RECEIVED MIRROR NOTE: DISPENSED PPT HEEL LIFTS BILATERAL FOR HIS BLUE SNEAKERS THAT HAVE A HIGH HEEL AREA TTHAT RUBS HIS ACHILLES TENDON AN DUPON INITIAL AMBULATION HE SEES AN IMPROVEMENT-BUT NEEDS TO TEST DURING HIS 1 1/2 HOUR WALKS AND ORDERED NEW THERAPEUTIC SHOES WITH LOWER HEEL COUNTER. Medication Reconciliation: PERFORMED TODAY - SEE BELOW. Outpatient: Has the patient been taking medications as documented in the EMLR? YES: The patient has been taking medications as documented in the EMLR. Essential Medication List for Review used to complete this medication reconciliation. INCLUDED IN THIS LIST: Alphabetical list of active outpatient prescriptions dispensed from this [place] (local) and dispensed from another [place] or [facility] facility (remote) as well as inpatient [...] list may not be complete. Please check [employer]. Allergies/ADRs (Tool #5) FACILITY ALLERGY/ADR -------- CLNCL/HLTH RAJESH REPT EFF [id number] TAMSULOSIN [facility] LISINOPRIL [...] this [facility] (local) and dispensed from another [place] or [facility] facility (remote) as well as inpatient orders (local pending and active), local clinic medications, locally documented non-VA medications, and local prescriptions that have or been discontinued in the past 90 days. Non-VA Meds Last Documented On: Jul 21, 2023 NOTE The display of VA prescriptions dispensed from another [place] or [facility] facility (remote) is limited to active outpatient prescription entries matched to National Drug File at the originating site and may not include some items such as investigational drugs, compounds, etc. NOT INCLUDED IN THIS LIST: Medications self-entered by the patient into personal health records (i.e. [employer]) are NOT included in this list. Non-VA medications documented outside this [place], remote inpatient orders (regardless of status) and [...] BY MOUTH EVERY EVENING FOR CHOLESTEROL Rx# [id number] Last Released: 09/17/23 Qty/Days Supply: Rx Expiration Date: 04/28/24 Refills [...] OR OPERATE MACHINERY WHILE TAKING THIS) Rx# [id number] Last Released: 06/18/23 Qty/Days Supply: Rx Expiration Date: 07/17/23 Refills Remainin Indication: FOR PANIC DISORDER OUTPT CLONAZEPAM 0.5MG TAB (Status = ) TAKE ONE TABLET BY MOUTH AT BEDTIME NEEDED FOR PANIC DISORDER (DO NOT TAKE WITH ALCOHOL OR ANY MEDICATIONS THAT ARE SEDATING. DO NOT DRIVE OR OPERATE MACHINERY WHILE TAKING THIS) Rx# [id number] Last Released: 07/24/23 Qty/Days Supply: Rx Expiration Date: 08/20/23 Refills Remainin Indication: FOR PANIC DISORDER OUTPT CYANOCOBALAMIN 1000MCG TAB (Status = Active/Suspended) TAKE ONE TABLET BY MOUTH ONCE DAILY Rx# [id number] Last Released: 07/10/23 Qty/Days Supply: Rx Expiration Date: 04/28/24 Refills Remainin Indication: FOR PREVENTION OF VITAMIN B12 DEFICIENCY Non-VA DICLOFENAC 1% GEL (EQV-VOLTAREN) GEL,TOP APPLY TOPICALLY FOUR TIMES A DAY OUTPT DILTIAZEM (EQV-CARDIZEM) 180MG 24HR CAP (Status = Active/Suspended) TAKE ONE CAPSULE BY MOUTH ONCE DAILY Rx# [id number] Last Released: 08/13/23 Qty/Days Supply: Rx Expiration Date: 06/04/24 Refills Remainin OUTPT FINASTERIDE 5MG TAB (Status = Active) TAKE ONE TABLET BY MOUTH DAILY FOR PROSTATE Rx# [id number] Last Released: 09/24/23 Qty/Days Supply: Rx Expiration Date: 02/19/24 Refills Remainin OUTPT FLUTICASONE PROP 50MCG 120D NASAL INHL (Status = Discontinued) INSTILL 2 SPRAYS INTO EACH NOSTRIL ONCE DAILY NEEDED FOR NASAL IRRITATION/INFLAMMATION Rx# [id number] Last Released: 05/28/23 Qty/Days Supply: Rx Expiration Date: 02/19/24 Refills Remainin OUTPT FLUTICASONE PROP 50MCG 120D NASAL INHL (Status = Active) INSTILL 2 SPRAYS INTO EACH NOSTRIL ONCE DAILY NEEDED FOR NASAL IRRITATION/INFLAMMATION Rx# [id number] Last Released: 08/18/23 Qty/Days Supply: Rx Expiration Date: 07/21/24 Refills Remainin OUTPT KETOCONAZOLE 2% CREAM (Status = Active) APPLY A THIN LAYER TOPICALLY TWICE DAILY FOR ATHLETE'S FOOT Rx# [id number] Last Released: 08/20/23 Qty/Days Supply: Rx Expiration Date: 06/13/24 Refills Remainin Indication: FOR ATHLETE'S FOOT OUTPT METFORMIN HCL 750MG 24HR SA TAB (Status = Discontinued) TAKE TWO TABLETS BY MOUTH EVERY EVENING Rx# [id number] Last Released: 04/25/23 Qty/Days Supply: 180 Rx Expiration Date: 02/14/24 Refills Remainin Indication: FOR TYPE 2 DIABETES MELLITUS OUTPT METFORMIN HCL 750MG 24HR SA TAB (Status = Active/Suspended) TAKE TWO TABLETS BY MOUTH EVERY EVENING Rx# [id number] Last Released: 07/24/23 Qty/Days Supply: 180 Rx Expiration Date: 07/21/24 Refills Remainin Indication: FOR TYPE 2 DIABETES MELLITUS OUTPT METOPROLOL SUCCINATE 25MG SA TAB (Status = Active/Suspended) TAKE ONE TABLET BY MOUTH TWICE DAILY FOR HEART FAILURE Rx# [id number] Last Released: 07/10/23 Qty/Days Supply: Rx Expiration Date: 04/28/24 Refills Remainin Indication: FOR CHRONIC HEART FAILURE OUTPT MICONAZOLE NITRATE 2% TOP PWDR (Status = Discontinued) APPLY SMALL AMOUNT TOPICALLY TWICE DAILY Rx# [id number] Last Released: 04/01/23 Qty/Days Supply: 85 Rx Expiration Date: 07/26/23 Refills Remainin Indication: FOR FUNGAL INFECTION OF SKIN OUTPT MICONAZOLE NITRATE 2% TOP PWDR (Status = Active) APPLY SMALL AMOUNT TOPICALLY TWICE DAILY FOR ATHLETE'S FOOT Rx# [id number] Last Released: 09/10/23 Qty/Days Supply: 8530 Rx Expiration Date: 07/03/24 Refills Remainin Indication: FOR ATHLETE'S FOOT OUTPT MOMETASONE 200MCG/ACTUAT 120D ORAL INHL (Status = Active/Suspended) INHALE 2 PUFFS BY MOUTH TWICE DAILY FOR CONTROLLER MEDICATION FOR ASTHMA --RINSE MOUTH AFTER EACH USE Rx# [id number] Last Released: 07/03/23 Qty/Days Supply: Rx Expiration Date: 04/23/24 Refills Remainin Indication: FOR CONTROLLER MEDICATION FOR ASTHMA OUTPT MONTELUKAST NA 10MG TAB (Status = Active) TAKE ONE TABLET BY MOUTH EVERY EVENING FOR CONTROLLER MEDICATION FOR ASTHMA Rx# [id number] Last Released: 09/17/23 Qty/Days Supply: 90 Rx Expiration Date: 04/28/24 Refills Remainin Indication: FOR CONTROLLER MEDICATION FOR ASTHMA OUTPT OMEPRAZOLE 20MG EC CAP (Status = Discontinued) TAKE TWO CAPSULES BY MOUTH DAILY FOR STOMACH ACID Rx# [id number] Last Released: 05/28/23 Qty/Days Supply: 180 Rx Expiration Date: 02/19/24 Refills Remainin OUTPT OMEPRAZOLE 20MG EC CAP (Status = Active) TAKE TWO CAPSULES BY MOUTH DAILY FOR STOMACH ACID Rx# [id number] Last Released: 08/18/23 Qty/Days Supply: Rx Expiration Date: 07/21/24 Refills Remainin Non-VA OTHER CAP/TAB TAKE BUTALBITAL BY MOUTH ONCE DAILY NEEDED About twice a year for headaches. Non-VA SAW PALMETTO CAP/TAB TAKE BY MOUTH OUTPT SEMAGLUTIDE 1MG/0.75ML INJ PEN 3ML (Status = Active) INJECT 1MG SUBCUTANEOUSLY ONCE A WEEK FOR TYPE 2 DIABETES MELLITUS Rx# [id number] Last Released: 09/24/23 Qty/Days Supply: 06/15 Rx Expiration Date: 06/09/24 Refills Remainin Indication: FOR TYPE 2 DIABETES MELLITUS OUTPT TADALAFIL 5MG TAB (Status = Discontinued) TAKE ONE TABLET BY MOUTH ONCE DAILY FOR BPH Rx# [id number] Last Released: 07/18/23 Qty/Days Supply: Rx Expiration Date: 02/07/24 Refills Remainin Indication: FOR ERECTILE DYSFUNTION OUTPT TADALAFIL 5MG TAB (Status = Active/Suspended) TAKE ONE TABLET BY MOUTH ONCE DAILY FOR BPH Rx# [id number] Last Released: 09/09/23 Qty/Days Supply: Rx Expiration Date: 07/21/24 Refills Remainin Indication: FOR ERECTILE DYSFUNTION OUTPT TERAZOSIN HCL 10MG CAP (Status = Discontinued) TAKE ONE CAPSULE BY MOUTH AT BEDTIME FOR BPH Rx# [id number] Last Released: 05/28/23 Qty/Days Supply: Rx Expiration Date: 12/14/23 Refills Remainin OUTPT TERAZOSIN HCL 10MG CAP (Status = Active/Suspended) TAKE ONE CAPSULE BY MOUTH AT BEDTIME FOR BPH Rx# [id number] Last Released: 08/05/23 Qty/Days Supply: Rx Expiration Date: 07/21/24 Refills Remainin OUTPT TRIAMCINOLONE ACETONIDE 0.1% CREAM (Status = Active) APPLY A THIN LAYER TOPICALLY TWICE DAILY FOR ITCHING Rx# [id number] Last Released: 06/09/23 Qty/Days Supply: 454/90 Rx Expiration Date: 06/09/24 Refills Remainin Indication: FOR ITCHING OUTPT WATER STERILE FOR IRRIGATION (Status = Discontinued) IRRIGATE MODERATE AMOUNT DIRECTED ONCE DAILY FOR C-PAP MACHINE Rx# [id number] Last Released: 07/23/23 Qty/Days Supply: 17780/60 Rx Expiration Date: 07/26/23 Refills Remainin OUTPT WATER STERILE FOR IRRIGATION (Status = Active) IRRIGATE MODERATE AMOUNT DIRECTED ONCE DAILY FOR C-PAP MACHINE Rx# [id number] Last Released: 09/06/23 Qty/Days Supply: 32366/60 Rx Expiration Date: 07/21/24 Refills Remainin SUPPLIES OUTPT ACCU-CHEK GUIDE (GLUCOSE) TEST STRIP (Status = Active/Suspended) USE 1 STRIP TO TEST BLOOD SUGARS TWO TIMES A WEEK Rx# [id number] Last Released: 06/03/23 Qty/Days Supply: 50/180 Rx Expiration Date: 06/03/24 Refills Remainin Indication: DIABETES MELLITUS OUTPT LANCET,SOFTCLIX (Status = ) USE 1 LANCET ONCE DAILY DIRECTED BY PROVIDER DIABETES MELLITUS Rx# [id number] Last Released: 06/20/23 Qty/Days Supply: 100/90 Rx Expiration Date: 07/26/23 Refills Remainin Indication: DIABETES MELLITUS /es/ JUVENAL ROSS DPM MOTION PICTURE DIRECTOR Signed: 09/29/2023 08:24 JUVENAL ROSS
--- OUTSIDE RECORDS SUMMARY | 2024-05-10 07:27 | XMS_ITS ---
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 Address [address] [place] [id number] Care Team Providers Care Mica Plate Layer Hand Name Role Phone CHITO SEGURA Primary Care [...] PART A Feb 16, 2018 PART A [id number] YENNY OVIEDO ES PATIENT MEDICARE (WNR) MEDICARE (M) PART B Feb 16, 2018 PART B [id number] YENNY OVIEDO ES PATIENT MEDICARE (WNR) MEDICARE (M) PART A Oct 17, 2006 PART A [id number] YENNY OVIEDO PATIENT FOR LIFE TFL* Apr 06, 2018 [id number] YENNY OVIEDO PATIENT Selected Encounter This section includes the information on record at [place] for the Encounter. Date/Time Encounter Type Encounter Description Reason Provider Source Sep 01, 2023 09:00 AM THERAPEUTIC EXERCISES OCCUPATIONAL THERAPY ICD-10-CM M25.312 Other instability, left shoulder MACHON,NAN E IHE Encounter Template Text not used by [place] Assessments - Encounter Diagnoses This section includes the primary and secondary diagnoses documented for the Encounter. Date/Time Primary/Secondary Diagnosis Diagnosis Name Provider Source Sep 01, 2023 01:12 PM PRIMARY Other instability, left shoulder MACHON,NAN E [facility] [place] [facility] Plan of Treatment: Future Appointments (+ 6 months) and Future Tests (+/- 45 days) The Plan of Treatment section includes future care activities for the patient from all [place] treatmentfacilities. This section includes future appointments and future orders which are active, pending or scheduled. Future Appointments This section includes appointments that were scheduled to occur 6 months from the date of the Encounter, up to a maximum of 20 appointments. The data comes from all [place] treatment facilities. Appointment Date/Time Appointment Type Appointme nt Facility Name Sep 09, 2023 08:00 AM AMBULATORY - MEDICINE [facility] [place] [facility] Sep 15, 2023 09:00 AM AMBULATORY - REHAB MEDICIN E [facility] [place] [facility] September 22, 2023 09:00 AM AMBULATORY - REHAB MEDICIN E [facility] [place] [facility] September 29, 2023 08:00 AM [facility]INE [facility] September 29, 2023 08:30 AM [facility]ATORY - MEDICINE [facility] October 01, 2023 09:00 AM AMBULATORY - REHAB MEDICIN E [facility] [place] [facility] October 07, 2023 02:30 PM AMBULATORY - REHAB MEDICIN E [facility] [place] [facility] October 16, 2023 07:30 AM AMBULATORY - REHAB MEDICIN E [facility] [place] [facility] Nov 03, 2023 07:30 AM AMBULATORY - REHAB MEDICIN E [facility] [place] [facility] Nov 06, 2023 11:00 AM AMBULATORY - MEDICINE [facility] [place] [facility] Nov 10, 2023 07:30 AM AMBULATORY - REHAB MEDICIN E [facility] [place] [facility] Nov 18, 2023 11:00 AM AMBULATORY - NONE [facility] [place] [facility] Nov 27, 2023 07:15 AM AMBULATORY - NONE [facility] [place] [facility] Nov 27, 2023 07:45 AM AMBULATORY - NONE [facility] [place] [facility] Dec 01, 2023 08:00 AM [facility]ATORY [facility] MEDICINE [facility] Jan 12, 2024 11:25 AM AMBULATORY - MEDICINE [facility] [place] [facility] Jan 12, 2024 11:40 AM AMBULATORY - MEDICINE [facility] [place] [facility] Jan 22, 2024 01:00 PM AMBULATORY - MEDICINE [facility] [place] [facility] Jan 29, 2024 08:45 AM AM[place]ULATORY [place]ICINE [place] [facility] [place] [facility] Feb 16, 2024 08:00 AM AMBULATORY - MEDICINE [facility] Social History: Smoking Status (Most current) [...] 21, 2023 01:30 PM VA[facility]TOBACCO [facility] Tobacco Use History This section includes a history of the smoking, or tobacco-related health factors, that were collected on or before the date of the Encounter. The data comes from the [place] facility where the Encounter took place. Date/Time Smoking Status/Tobacco Use Comment F acility Jul 21, 2023 01:30 PM VA-TOBACCO QUIT 15 YRS OR MORE [facility] [place] [facility] Mar 28, 2021 03:28 PM VA-TOBACCO FORMER USER [facility] [place] [facility] Mar 28, 2021 03:28 PM VA-TOBACCO QUIT 15 YRS OR MORE [facility] [place] [facility] Dec 02, 2019 09:36 AM VA-TOBACCO NEVER USED [facility] [place] [facility] Apr 23, 2005 10:19 AM QUIT TOBACCO USE IN PAST YEAR [facility] [place] [facility] Advance Directives: All historical and current Section [...] 16, 2011 ADVANCE DIRECTIVE DISCUSSION MARGARITA TERRAZAS [place] Encounter Notes: All associated encounter notes This section contains the clinical notes associated to the Encounter. 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 Special instructions: passive/active ROM and gentle theraband. DOS: 02/08/2024 29 weeks 3 days post-op SUBJECTIVE: Pt reports that his shoulder is ok. Still cracking, sometimes uncomfortable w/ the cracking. Pain Level: 0/10 OBJECTIVE: THERAPEUTIC EXERCISE: *UBE 2' forward, 2' backward 2.0 *hiram into flexion, w/ 10 second hold on L, x10 *wall slides into flexion, 1x10 *ABC's in supine, x2, on L *shoulder shrugs, seated, 2x10 *single arm bent rows, 2x10 ADDED: *supine serratus punches, 2x10 (w/ physical support for prompting) Access Code: [email or web address] URL: [email or web address] Date: 09/01/2023 Prepared by: [place] [facility] Exercises - Supine Shoulder Flexion [...] musculature, supine *taping of AC joint MINUTES: 8 THERAPEUTIC DYNAMIC ACTIVITIES: MINUTES: NEUROMUSCULAR EDUCATION: MINUTES: OTHER: MINUTES: MODALITIES: *MHP to L shoulder prior to tx MINUTES: 3 [] Contraindication screen completed prior to modality [] Skin intact pre/post SELF CARE/EDUCATION: MINUTES: Patient education was provided for all aspects of care during this clinical encounter. ASSESSMENT: pt tolerated tx well this date. he continues to experience crepitation. some observed difficulty w/ shoulder shrugs likely d/t decreased proprioception. pt does well w/ supine alphabet. instructed in serratus punches which he tolerated well. tightness and ttp noted in anterior shoulder. pt denied increased pain following tx. PLAN: continue w/ OT POC; modify tx as needed. progress w/ HEP as tolerated. pt is in agreement w/ this POC. /lisa/ Nan Pike, MS OTR/Stewart, CHT Occupational Therapist Signed: 09/01/2023 13:12 NAN PIKE [facility]
--- OUTSIDE RECORDS SUMMARY | 2024-05-10 07:27 | XMS_ITS | Encounter Summary ---
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 Address [address] [place] [id number] Care Team Providers Care Film Sound Engineer Name Role Phone CHITO SEGURA Primary Care [...] PART A Feb 16, 2018 PART A [id number] YENNY OVIEDO PATIENT MEDICARE (WNR) MEDICARE (M) PART B Feb 16, 2018 PART B [id number] YENNY OVIEDO ES PATIENT MEDICARE (WNR) MEDICARE (M) PART A Oct 17, 2006 PART A [id number] [facility] YENNY OVIEDO PATIENT FOR LIFE TFL* Apr 06, 2018 [id number] YENNY OVIEDO PATIENT Selected Encounter This section includes the information on record at [place] for the Encounter. Date/Time Encounter Type Encounter Description Reason Provider Source October 16, 2023 07:30 AM THERAPEUTIC EXERCISES OCCUPATIONAL THERAPY ICD-10-CM M25.312 Other instability, left shoulder MACHON,DEENA E IHE Encounter Template Text not used by [place] Assessments - Encounter Diagnoses This section includes the primary and secondary diagnoses documented for the Encounter. Date/Time Primary/Secondary Diagnosis Diagnosis Name Provider Source October 16, 2023 03:34 PM PRIMARY Other instability, left shoulder MACHON,DEENA E [facility] [place] [facility] Plan of Treatment: Future Appointments (+ 6 months) and Future Tests (+/- 45 days) The Plan of Treatment section includes future care activities for the patient from all [place] treatmentfacilities. This section includes future appointments and future orders which are active, pending or scheduled. Future Appointments This section includes appointments that were scheduled to occur 6 months from the date of the Encounter, up to a maximum of 20 appointments. The data comes from all [place] treatment facilities. Appointment Date/Time Appointment Type Appointme nt Facility Name Nov 03, 2023 07:30 AM AMBULATORY - REHAB MEDICIN E [facility] [place] [facility] Nov 06, 2023 11:00 AM AMBULATORY - MEDICINE [facility] [place] [facility] Nov 10, 2023 07:30 AM AMBULATORY - REHAB MEDICIN E [facility] [place] [facility] Nov 18, 2023 11:00 AM AMBULATORY - NONE [facility] [place] [facility] Nov 27, 2023 07:15 AM AMBULATORY - NONE [facility] [place] [facility] Nov 27, 2023 07:45 AM AMBULATORY - NONE [facility] [place] [facility] Dec 01, 2023 08:00 AM [facility]ORY [facility]INE [facility] Jan 12, 2024 11:25 AM AMBULATORY - MEDICINE [facility] [place] [facility] Jan 12, 2024 11:40 AM AMBULATORY - MEDICINE [facility] [place] [facility] Jan 22, 2024 01:00 PM AMBULATORY - MEDICINE [facility] [place] [facility] Jan 29, 2024 08:45 AM AMBULATORY - MEDICINE [facility] [place] [facility] Feb 16, 2024 08:00 AM AMBULATORY - MEDICINE [facility] Feb 17, 2024 07:30 AM AMBULATORY - NONE [facility] [place] [facility] Mar 16, 2024 09:30 AM AMBULATORY - NONE [facility] [place] [facility] Mar 30, 2024 07:30 AM AMBULATORY - MEDICINE [facility] [place] [facility] Apr 06, 2024 09:00 AM AMBULATORY - MEDICINE [facility] Apr 12, 2024 08:00 AM AMBULATORY - MEDICINE [facility] Apr 12, 2024 11:00 AM AMBULATORY - MEDICINE [place] [facility] [place] [facility] Apr 12, 2024 01:30 PM AMBULATORY - MEDICINE [place] [facility] [place] [facility] Social History: Smoking Status (Most current) and Tobacco Use (All prior to encounter date) This section includes the most current, and the historical, smoking and tobacco- related health factors from the [place] facility where the Encounter took place. Current Smoking Status This section includes the most current smoking, or tobacco-related health factor, from the [place] facility where the Encounter took place. Date/Time Current Smoking Status Comment Facil ity Jul 21, 2023 01:30 PM [facility]BACCO [facility] Tobacco Use History This section includes a history of the smoking, or tobacco-related health factors, that were collected on or before the date of the Encounter. The data comes from the [place] facility where the Encounter took place. Date/Time Smoking Status/Tobacco Use Comment F acility Jul 21, 2023 01:30 PM VA-TOBACCO QUIT 15 YRS OR MORE [place] [facility] [place] [facility] Mar 28, 2021 03:28 PM VA-TOBACCO FORMER USER [place] [facility] [place] [facility] Mar 28, 2021 03:28 PM VA-TOBACCO QUIT 15 YRS OR MORE [place] [facility] [place] [facility] Dec 02, 2019 09:36 AM VA-TOBACCO NEVER USED [place] [facility] [place] [facility] Apr 23, 2005 10:19 AM QUIT TOBACCO USE [facility]ST [facility] Advance Directives: All historical and current Section Date Range: From patient's date of to the date document was created. This section includes ALL of a patient's completed or amended [place] Advance and Rescinded Directives. The entries below indicate that a directive exists for the patient, but an actual copy is not included with this document. The data comes from all [place] facilities. Date Advance Directives Provider Source Dec 16, 2011 ADVANCE DIRECTIVE DISCUSSION MARGARITA TERRAZAS [place] Encounter Notes: All associated encounter notes This section contains the clinical notes associated to the Encounter. 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 Special instructions: passive/active ROM and gentle theraband. DOS: 02/08/2024 SUBJECTIVE: Pt reports he fell on Friday and braced himself with L arm/shoulder. He does feel that he's getting stronger, the fall just set him back a bit. Pain: 3/10 currently OBJECTIVE: THERAPEUTIC EXERCISE: *UBE 2' forward, 2' backward 2.0 *hiram into flexion, w/ 10 second hold on L, x10 *wall slides into flexion, 1x10 *ABCs scap ball on wall, x2 ADDED: *bicep curls w/ 2# weight, 1 x10 MINUTES: 16 MANUAL THERAPY: *mobilization to anterior shoulder musculature/biceps musculature/ posterior shoulder musculature, seated MINUTES: 8 THERAPEUTIC DYNAMIC ACTIVITIES: MINUTES: NEUROMUSCULAR EDUCATION: MINUTES: OTHER: MINUTES: MODALITIES: *MHP to L shoulder prior to tx MINUTES: 3 [] Contraindication screen completed prior to modality [] Skin intact pre/post SELF CARE/EDUCATION: MINUTES: Patient education was provided for all aspects of care during this clinical encounter. ASSESSMENT: Pt tolerated tx well. Pt reports falling on shoulder a few days ago, took it easy with exercises. added bicep curls, pt performed and tolerated well with no increase in pain. Pt denies pain but endorses fatigue with exercise. Ttp in anterior shoulder musculature as well as posterior shoulder musculature. Pt reported feeling a bit sore following tx. PLAN: continue w/ OT POC; modify tx as needed. progress w/ HEP as tolerated. pt is in agreement w/ this POC. This treatment was primarily performed by TRISTIAN Martin, however, I, MS MARY ALICE Martin/Stewart, [place], was present during the course of this treatment in its entirety providing direct supervision for this student, I agree with treatment and plan of care as stated above. /lisa/ MS MARY ALICE Zuluaga/LESLEY William Occupational Therapist Signed: 10/16/2023 15:34 Receipt Acknowledged By: 10/16/2023 15:36 /lisa/ [employer] OCCUPATIONAL THERAPY STUDENT DEENA PIKE [facility] [place] [facility]
--- OUTSIDE RECORDS SUMMARY | 2024-05-10 07:27 | XMS_ITS | Encounter Summary ---
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 Address [address] [place] [address] Care Team Providers Care Conservation Specialist Name Role Phone CHITO SEGURA Primary [...] PART A Feb 16, 2018 PART A [id number] [phone] YENNY OVIEDO ES PATIENT MEDICARE (WNR) MEDICARE (M) PART B Feb 16, 2018 PART B [id number] YENNY OVIEDO ES PATIENT MEDICARE (WNR) MEDICARE (M) PART A Oct 17, 2006 PART A [id number] [facility] [id number] YENNY OVIEDO PATIENT FOR LIFE TFL* Apr 06, 2018 [id number] YENNY OVIEDO PATIENT Selected Encounter This section includes the information on record at [place] for the Encounter. Date/Time Encounter Type Encounter Description Reason Provider Source Aug 20, 2023 08:30 AM THERAPEUTIC EXERCISES OCCUPATIONAL THERAPY ICD-10-CM M25.312 Other instability, left shoulder JOHNSON,EVELY N OFELIA IHE Encounter Template Text not used by [place] Assessments - Encounter Diagnoses This section includes the primary and secondary diagnoses documented for the Encounter. Date/Time Primary/Secondary Diagnosis Diagnosis Name Provider Source Aug 20, 2023 11:02 AM PRIMARY Other instability, left shoulder JOHNSON,EVELY N OFELIA [place] [facility] [place] [facility] Plan of Treatment: Future Appointments (+ 6 months) and Future Tests (+/- 45 days) The Plan of Treatment section includes future care activities for the patient from all [place] treatmentfacilities. This section includes future appointments and future orders which are active, pending or scheduled. Future Appointments This section includes appointments that were scheduled to occur 6 months from the date of the Encounter, up to a maximum of 20 appointments. The data comes from all [place] treatment facilities. Appointment Date/Time Appointment Type Appointme nt Facility Name Aug 26, 2023 09:00 AM AMBULATORY - REH[facility] MEDICIN E [facility] [place] [facility] Sep 01, 2023 09:00 AM AMBULATORY - REHAB MEDICIN E [facility] [place] [facility] Sep 09, 2023 08:00 AM AMBULATORY [place]ICINE [place] [facility] [facility] [facility] Sep 15, 2023 09:00 AM AMBULATORY - REHAB MEDICIN E [facility] [place] [facility] September 22, 2023 09:00 AM AMBULATORY - REHAB MEDICIN E [facility] [facility] September 29, 2023 08:00 AM [facility]ATORY - MEDICINE [facility] September 29, 2023 08:30 AM AMBULATORY - MEDICINE [facility] October 01, 2023 09:00 AM AMBULATORY - REHAB MEDICIN E [facility] [place] [facility] October 07, 2023 02:30 PM AMBULATORY - REHAB MEDICIN E [facility] [place] [facility] October 16, 2023 07:30 AM AMBULATORY - REHAB MEDICIN E [facility] [place] [facility] Nov 03, 2023 07:30 AM AMBULATORY - REHAB MEDICIN E [facility] [place] [facility] Nov 06, 2023 11:00 AM AMBULATORY - MEDICINE [place] [facility] [place] [facility] Nov 10, 2023 07:30 AM AMBULATORY - REHAB MEDICIN E [facility] [place] [facility] Nov 18, 2023 11:00 AM AMBULATORY - NONE [facility] [place] [facility] Nov 27, 2023 07:15 AM AMBULATORY - NONE [facility] [place] [facility] Nov 27, 2023 07:45 AM AMBULATORY - NONE [facility] [place] [facility] Dec 01, 2023 08:00 AM AMBULATORY - MEDICINE [facility] [place] Jan 12, 2024 11:25 AM AMBULATORY - MEDICINE [place] [facility] [facility] Jan 12, 2024 11:40 AM AMBULATORY - MEDICINE [place] [facility] [facility] [facility] Jan 22, 2024 01:00 PM AMBULATORY - MEDICINE [place] [facility] [facility] Social History: Smoking Status (Most current) and Tobacco Use (All prior to encounter date) This section includes the most current, and the historical, smoking and tobacco- related health factors from the [place] facility where the Encounter took place. Current Smoking Status This section includes the most current smoking, or tobacco-related health factor, from the [place] facility where the Encounter took place. Date/Time Current Smoking Status Comment Facil ity Jul 21, 2023 01:30 PM [facility] Tobacco Use History This section includes a history of the smoking, or tobacco-related health factors, that were collected on or before the date of the Encounter. The data comes from the [place] facility where the Encounter took place. Date/Time Smoking Status/Tobacco Use Comment F acility Jul 21, 2023 01:30 PM VA-TOBACCO QUIT 15 YRS OR MORE [facility] [place] [facility] Mar 28, 2021 03:28 PM VA-TOBACCO FORMER USER [place] [facility] [facility] Mar 28, 2021 03:28 PM VA-TOBACCO QUIT 15 YRS OR MORE [facility] [place] [facility] Dec 02, 2019 09:36 AM VA-TOBACCO NEVER USED [facility] [facility] Apr 23, 2005 10:19 AM QUIT TOBACCO USE IN PAST YEAR [place] [facility] [facility] Advance Directives: All historical and current Section Date Range: From patient's date of to the date document was created. This section includes ALL of a patient's completed or amended VA Advance and Rescinded Directives. The entries below indicate that a directive exists for the patient, but an actual copy is not included with this document. The data comes from all [place] facilities. Date Advance Directives Provider Source Dec 16, 2011 ADVANCE DIRECTIVE DISCUSSION MARGARITA TERRAZAS BOTKINS Encounter Notes: All associated encounter notes This section contains the clinical notes associated to the Encounter. 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 OT Treatment Precautions: Patient identified by full name and date of Pt. identified by full name and TREATMENT PRECAUTIONS OR DAILY INSTRUCTIONS: (Vitals, surgical precautions etc.) SUBJECTIVE: have my last apt with my orthopedic doctor coming up and I can't wait . THERAPEUTIC EXERCISE: MINUTES: 27 OBJECTIVE: MHP for 3 minutes UBE 2'forward to 2'backwards Dionisio's LUE with a hold for 10 sec. 1 set of 10 wall slides 1 set of 10 supine chest press using 2 lb. dowel 2 sets of 10 shoulder flexion in supine using 2 Lb. dowel 2 sets of 10 MANUAL THERAPY: MINUTES: THERAPEUTIC DYNAMIC ACTIVITIES: MINUTES: NEUROMUSCULAR EDUCATION: MINUTES: OTHER: MINUTES: MODALITIES: MHP MINUTES: 3 [] Contraindication screen completed prior to modality [] Skin intact pre/post SELF CARE/EDUCATION: MINUTES: Patient education was provided for all aspects of care during this clinical encounter. ASSESSMENT: did well, stated he does what he can at home and takes a break when he has increased pain. Pain was 4/10 today and stated he has been dealing with this for some time. No difficulties completing exercises. Palpated veterans arm anterior shoulder and he flinched,pain level high when touched stated he takes hot showers to relieve his pain. PLAN: Continua/ OT POC; modify Tx as needed. progress w/ HEP as tolerated. pt is in agreement w/ this POC. 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
--- OUTSIDE RECORDS SUMMARY | 2024-05-10 07:27 | XMS_ITS | Encounter Summary ---
Author Name [facility] [place] Address [address] [place] [id number] Care Team Providers Care Measurement Technician Name Role Phone CHITO SEGURA Primary [...] PART A Feb 16, 2018 PART A [id number] [phone] YENNY OVIEDO PATIENT MEDICARE (WNR) MEDICARE (M) PART B Feb 16, 2018 PART B [id number] YENNY OVIEDO PATIENT MEDICARE (WNR) MEDICARE (M) PART A Oct 17, 2006 PART A [id number] [facility] YENNY OVIEDO PATIENT FOR LIFE TFL* Apr 06, 2018 [id number] YENNY OVIEDO PATIENT Selected Encounter This section includes the information on record at [place] for the Encounter. Date/Time Encounter Type Encounter Description Reason Pro vider Source Sep 09, 2023 10:39 AM Outpatient Encounter DENTAL IHE Encounter Template Text not used by [place] Plan of Treatment: Future Appointments (+ 6 months) and Future Tests (+/- 45 days) The Plan of Treatment section includes future care activities for the patient [facility] [place] [facility]. This section includes future appointments and [...] REHAB MEDICIN E [facility] [place] [facility] September 22, 2023 09:00 AM AMBULATORY - REHAB MEDICIN E [facility] [facility] September 29, 2023 08:00 AM [facility]ATORY - MEDICINE [facility] September 29, 2023 08:30 AM AMBULATORY - MEDICINE [facility] October 01, 2023 09:00 AM AMBULATORY - REHAB MEDICIN E [facility] [facility] October 07, 2023 02:30 PM AMBULATORY - REHAB MEDICIN E [facility] [place] [facility] October 16, 2023 07:30 AM AMBULATORY - REHAB MEDICIN E [facility] [facility] Nov 03, 2023 07:30 AM AMBULATORY - REHAB MEDICIN E [facility] [facility] Nov 06, 2023 11:00 AM AMBULATORY - MEDICINE [facility] [place] [facility] Nov 10, 2023 07:30 AM AMBULATORY - REHAB MEDICIN E [facility] [facility] Nov 18, 2023 11:00 AM AMBULATORY - NONE [facility] [facility] Nov 27, 2023 07:15 AM AMBULATORY - NONE [facility] [place] [facility] Nov 27, 2023 07:45 AM AMBULATORY - NONE [facility] [facility] Dec 01, 2023 08:00 AM AMBULATORY - MEDICINE [facility] Jan 12, 2024 11:25 AM AMBULATORY - MEDICINE [place] [facility] [place] [facility] Jan 12, 2024 11:40 AM AMBULATORY - MEDICINE [place] [facility] [place] [facility] Jan 22, 2024 01:00 PM AMBULATORY - MEDICINE [place] [facility] [place] [facility] Jan 29, 2024 08:45 AM AMBULATORY - MEDICINE [place] [facility] [facility] Feb 16, 2024 08:00 AM AMBULATORY - MEDICINE [facility] Feb 17, 2024 07:30 AM [facility] Social History: Smoking Status (Most current) [...] 21, 2023 01:30 PM [facility] Tobacco Use History This section includes a history of the smoking, or tobacco-related health factors, that were collected on or before the date of the Encounter. The data comes from the [place] facility where the Encounter took place. Date/Time Smoking Status/Tobacco Use Comment F acility Jul 21, 2023 01:30 PM VA-TOBACCO QUIT 15 YRS OR MORE [place] [facility] [place] [facility] Mar 28, 2021 03:28 PM VA-TOBACCO FORMER USER [place] [facility] [facility] Mar 28, 2021 03:28 PM VA-TOBACCO QUIT 15 YRS OR MORE [place] [facility] [facility] Dec 02, 2019 09:36 AM VA-TOBACCO NEVER USED [place] [facility] [place] [facility] Apr 23, 2005 10:19 AM QUIT TOBACCO USE IN PAST YEAR [place] [facility] Advance Directives: All historical and current [...] Encounter Note(s) Provider Source Sep 09, 2023 10:39 AM DENTISTRY TELEPHON E ENCOUNTER NOTE: LOCAL TITLE: TELEPHONE NOTE/DENTAL STANDARD TITLE: DENTISTRY TELEPHONE ENCOUNTER NOTE DATE OF NOTE: SEP 09, 2023@10:39 ENTRY DATE: SEP 09, 2023@10:39:24 AUTHOR: SOSA ESTEBAN EXP COSIGNER: URGENCY: STATUS: COMPLETED Called and spoke with pt, appointment with dental on 09/30/2023, pt states he will call back to reschedule. /lisa/ SOSA ESTEBAN ADVANCED HANDER IN Signed: 09/09/2023 10:40 SOSA ESTEBAN [facility]
--- OUTSIDE RECORDS SUMMARY | 2024-05-10 07:27 | XMS_ITS | Encounter Summary ---
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 Address [address] [place] [id number] Care Team Providers Care Info Print Press Operator Name Role Phone CHITO SEGURA Primary [...] PART A Feb 16, 2018 PART A [id number] YENNY OVIEDO ES PATIENT MEDICARE (WNR) MEDICARE (M) PART B Feb 16, 2018 PART B [id number] YENNY OVIEDO ES PATIENT MEDICARE (WNR) MEDICARE (M) PART A Oct 17, 2006 PART A [id number] [facility] YENNY OVIEDO PATIENT FOR LIFE TFL* Apr 06, 2018 [id number] YENNY OVIEDO PATIENT Selected Encounter This section includes the [place] on [place] at [place] for the Encounter. Date/Time Encounter Type Encounter Description Reason Provider Source Nov 03, 2023 07:30 AM THERAPEUTIC EXERCISES OCCUPATIONAL THERAPY ICD-10-CM M25.312 Other instability, left shoulder MACHON,NAN E IHE Encounter Template Text not used by [place] Assessments - Encounter Diagnoses This section includes the primary and secondary diagnoses documented for the Encounter. Date/Time Primary/Secondary Diagnosis Diagnosis Name Provider Source Nov 03, 2023 08:27 AM PRIMARY Other instability, left shoulder MACHON,NAN E [facility] [place] [facility] Plan of Treatment: Future Appointments (+ 6 [...] Appointment Type Appointme nt Facility Name Nov 06, 2023 11:00 AM AMBULATORY - MEDICINE [facility] [facility] Nov 10, 2023 07:30 AM AMBULATORY - REHAB MEDICIN E [facility] [facility] Nov 18, 2023 11:00 AM AMBULATORY - NONE [facility] [facility] Nov 27, 2023 07:15 AM AMBULATORY - NONE [facility] [facility] Nov 27, 2023 07:45 AM AMBULATORY - NONE [facility] [facility] Dec 01, 2023 08:00 AM AM[facility]ATORY [facility] Jan 12, 2024 11:25 AM AMBULATORY - MEDICINE [place] [facility] [place] [facility] Jan 12, 2024 11:40 AM AMBULATORY - MEDICINE [facility] [place] [facility] Jan 22, 2024 01:00 PM AMBULATORY - MEDICINE [facility] [place] [facility] Jan 29, 2024 08:45 AM AMBULATORY - MEDICINE [facility] [place] [facility] Feb 16, 2024 08:00 AM AMBULATORY - MEDICINE [facility] [place] Feb 17, 2024 07:30 AM AMBULATORY - NONE [facility] [facility] Mar 16, 2024 09:30 AM AMBULATORY - NONE [facility] [facility] Mar 30, 2024 07:30 AM AMBULATORY - MEDICINE [place] [facility] [facility] Apr 06, 2024 09:00 AM AMBULATORY - [facility] Apr 12, 2024 08:00 AM AM[facility]AT[facility] - [facility] Apr 12, 2024 11:00 AM AMBULATORY - MEDICINE [place] [facility] [place] [facility] Apr 12, 2024 01:30 PM AMBULATORY - MEDICINE [place] [facility] [place] [facility] Apr 30, 2024 01:40 PM [facility] Social History: Smoking Status (Most current) [...] 21, 2023 01:30 PM [facility] Tobacco Use History This section includes a history of the smoking, or tobacco-related health factors, that were collected on or before the date of the Encounter. The data comes from the [place] facility where the Encounter took place. Date/Time Smoking Status/Tobacco Use Comment F acility Jul 21, 2023 01:30 PM VA-TOBACCO QUIT 15 YRS OR MORE [place] [facility] [place] [facility] Mar 28, 2021 03:28 PM VA-TOBACCO FORMER USER [place] [facility] [place] [facility] Mar 28, 2021 03:28 PM VA-TOBACCO QUIT 15 YRS OR MORE [place] [facility] [place] [facility] Dec 02, 2019 09:36 AM VA-TOBACCO NEVER USED [place] [facility] [facility] Apr 23, 2005 10:19 AM QUIT TOBACCO USE IN PAST YEAR [facility] Advance Directives: All historical and [...] 16, 2011 ADVANCE DIRECTIVE DISCUSSION MARGARITA TERRAZAS [place] Encounter Notes: All associated encounter notes This section contains the clinical notes associated to the Encounter. 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 Pain: 2/10 currently OBJECTIVE: THERAPEUTIC EXERCISE: *UBE 2' forward, 2' backward 2.0 *hiram into flexion, w/ 10 second hold on L, x10 *wall slides into flexion, 1x10 *ABCs scap ball on wall, x1 *bicep curls w/ 2# weight, 1x10 ADDED: *shoulder flexion w/ 2# weight, 1x10 *body blade IR and ER, 30 seconds x1, 1 minute x 1 MINUTES: 20 MANUAL THERAPY: *mobilization to anterior shoulder musculature/biceps [...] ASSESSMENT: Pt tolerated tx well. Pt reports feeling a bit sore today. Pt tolerated strengthening exercises well. Added shoulder flexion w/ weight and body blade ER and IR. Pt tolerated and performed well. Pt reports no increased in pain during TE but feeling sore following tx. Ttp at anterior shoulder musculature. Although feeling sore, pt is tolerating strengthening well. PLAN: continue w/ OT POC; modify tx as needed. progress w/ HEP as tolerated. pt is in agreement w/ this POC. This treatment was primarily performed by TRISTIAN Martin, however, I, Nan Pike, [place] VASQUEZR/Stewart, [place], was present during the course of this treatment in its entirety providing direct supervision for this student, I agree with treatment and plan of care as stated above. /lisa/ Nan Pike MS OTR/LESLEY William Occupational Therapist Signed: 11/03/2023 08:27 Receipt Acknowledged By: 11/03/2023 08:28 /lisa/ [employer] OCCUPATIONAL THERAPY STUDENT NAN PIKE [facility]
--- OUTSIDE RECORDS SUMMARY | 2024-05-10 07:27 | XMS_ITS | Encounter Summary ---
Author Name Department of Vetera Affairs ([place]) Organization [facility] Address [address] [place] [id number] Care Team Providers Care Outside Plant Engineer Name Role Phone CHITO SEGURA Primary [...] PART A Feb 16, 2018 PART A [id number] [phone] YENNY OVIEDO LISA PATIENT MEDICARE (WNR) MEDICARE (M) PART B Feb 16, 2018 PART B [id number] YENNY OVIEDO LISA PATIENT MEDICARE (WNR) MEDICARE (M) PART A Oct 17, 2006 PART A [id number] YENNY OVIEDO LISA PATIENT FOR LIFE TFL* Apr 06, 2018 [id number] YENNY OVIEDO PATIENT Selected Encounter This section includes the information on record at [place] for the Encounter. Date/Time Encounter Type Encounter Description Reason Provider Source September 29, 2023 08:30 AM MTMS BY PHARM ADDL 15 MIN CLINICAL PHARMACY ICD-10-CM E11.8 Type 2 diabetes mellitus with unspecified complications JONAH SANCHEZ Ayah Encounter Template Text not used by [place] Assessments - Encounter Diagnoses This section includes the primary and secondary diagnoses documented for the Encounter. Date/Time Primary/Secondary Diagnosis Diagnosis Name Provider Source September 29, 2023 08:41 AM PRIMARY Type 2 diabetes mellitus with unspecified complications JONAH SANCHEZ [place] Plan of Treatment: Future Appointments (+ 6 months) and Future Tests (+/- 45 days) The Plan of Treatment section includes future care activities for the patient from all [place] [facility] This section includes future appointments [...] REHAB [facility]IC[facility] [place] [facility] October 07, 2023 02:30 PM AMBULATORY - RE[facility] MEDICIN [facility] [place] [facility] October 16, 2023 07:30 AM AMBULATORY - REHAB MEDICIN E [facility] [place] [facility] Nov 03, 2023 07:30 AM AMBULATORY - REHAB MEDICIN E [facility] [place] [facility] Nov 06, 2023 11:00 AM AMBULATORY - MEDICINE [facility] [place] [facility] Nov 10, 2023 07:30 AM AMBULATORY - REHAB MEDICIN E [facility] [place] [facility] Nov 18, 2023 11:00 AM AMBULATORY - NONE [facility] [place] [facility] Nov 27, 2023 07:15 AM AMBULATORY - NONE [facility] [place] [facility] Nov 27, 2023 07:45 AM AMBULATORY - NONE [facility] [place] [facility] Dec 01, 2023 08:00 AM AMBULATORY - MEDICINE [facility] Jan 12, 2024 11:25 AM AMBULATORY - MEDICINE [facility] [place] [facility] Jan 12, 2024 11:40 AM AMBULATORY - MEDICINE [facility] [place] [facility] Jan 22, 2024 01:00 PM AMBULATORY - MEDICINE [facility] [place] [facility] Jan 29, 2024 08:45 AM AMBULATORY - MEDICINE [facility] [place] [facility] Feb 16, 2024 08:00 AM [facility] Feb 17, 2024 07:30 AM AMBULATORY - NONE [facility] [place] [facility] Mar 16, 2024 09:30 AM AMBULATORY - NONE [facility] [place] [facility] Mar 30, 2024 07:30 AM AMBULATORY - MEDICINE [facility] [place] [facility] Social History: Smoking Status (Most [...] 22, 2022 10:00 AM VA-TOBACCO FORMER USER [place] Tobacco Use History This section includes a history of the smoking, or tobacco-related health factors, that were collected on or before the date of the Encounter. The data comes from the [place] facility where the Encounter took place. Date/Time Smoking Status/Tobacco Use Comment Wilberto holbrook Jul 22, 2022 10:00 AM VA-TOBACCO QUIT 15 YRS OR MORE [place] Dec 02, 2018 09:23 AM VA-TOBACCO FORMER USER [place] Dec 02, 2018 09:23 AM VA-TOBACCO QUIT 15 YRS OR MORE [place] Apr 20, 2018 10:23 AM VA-TOBACCO FORMER USER [place] Apr 20, 2018 10:23 AM VA-TOBACCO QUIT 15 YRS OR MORE [place] Dec 16, 2016 08:40 AM QUIT TOBACCO USE > 7 YEARS AGO [place] Jul 17, 2015 08:14 AM QUIT TOBACCO USE > 7 YEARS AGO quit many yrs ago [place] Aug 04, 2009 08:22 AM QUIT TOBACCO USE > 7 YEARS AGO quit over ten years ago [place] Dec 03, 2007 02:22 PM QUIT TOBACCO USE 1 -7 YEARS AGO [place] May 21, 2007 08:03 AM QUIT TOBACCO USE 1 -7 YEARS AGO [place] Jul 25, 2004 09:38 AM CURRENT SMOKER Smokes about 10 cigarettes/day, and trying to quit on his own [place] Apr 27, 2004 01:32 PM LIFETIME NON-TOBACCO USER [place] Advance Directives: All historical and current Section [...] 16, 2011 ADVANCE DIRECTIVE DISCUSSION MARGARITA TERRAZAS [place] Encounter Notes: All associated encounter notes This section contains the clinical notes associated to the Encounter. Date/Time Encounter Note(s) Provider Source September 29, 2023 08:20 AM PHARMACY OUTPATIEN T NOTE: LOCAL TITLE: PHARMACY CLINIC NOTE STANDARD TITLE: PHARMACY OUTPATIENT NOTE DATE OF NOTE: SEPTEMBER 29, 2023@08:20 ENTRY DATE: SEPTEMBER 29, 2023@08:20:32 AUTHOR: JONAH SANCHEZ COSIGNER: URGENCY: STATUS: COMPLETED Known Allergies: NONSTEROIDAL ANTI-INFLAMMATORY, PENICILLIN, ROCEPHIN, POVIDONE IODINE, PHISOHEX THIMEROSAL, PAXIL, PINEAPPLES, MONOSODIUM GLUTAMATE, MELONS, LISINOPRIL TAMSULOSIN ANDREEA SCOTTIE PREET presented for follow-up for diabetes management treatment. Subjective: Captain Cook presents to clinic today with . Notes he is doing well; early riser (4am) and walks 3 miles every morning. Notes weight loss; clothes fitting looser but did not weigh this week. Notes he will weigh and send reading to clinic; has had >10lb weight loss per previous. Appetite decreased; no snacking and portions are much smaller. Tolerating therapy; occassional nausea which is tolerable, no vomiting. Notes he is followed by non-VA collet making machine operator. Also followed by non-VA urology; medications being adjusted and will update with changes. Objective: Diabetes Medication Regimen: semaglutide 1mg once [...] and reports the following (mg/dl): Date Range: 08/31/2023 - 09/29/2023 bG values are displayed in mg/dL # of tests 7 Average 123 SD 3.8 Highest 131 Lowest 120 Avg tests/day 0.2 # HI 0 # LO 0 <70 0.0% 70-180 100.0% >180 0.0% Hypos(<69) 0 Date Range: 08/31/2023 - 09/29/2023 bG values are displayed in mg/dL 00:00- 05:30- 08:00- 11:00- 12:30- 17:00- 18:30- 21:30- 05:30 08:00 11:00 12:30 17:00 18:30 21:30 00:00 09/02/2023 121 09/05/2023 121 09/08/2023 124 09/13/2023 121 09/16/2023 120 09/22/2023 131 Melonie 09/25/2023 122 Patient eats on avg. 3x day: Diet [...] BG of <180. May consider A1c <7-8%. Last A1c and BG readings at goal. Pt will repeat labwork prior to next PCP visit. Overall, tolerating therapy. Will continue current regimen. Praised on efforts thusf ar with LSMs and encouraged to continue. Will continue to monitor. Will f/u q6-12 months; sooner as needed. Diabetes (Goal A1c<7%, FBG 90-110mg/dL, 2hPP<180mg/dL): - CONTINUE semaglutide 1mg once weekly - CONTINUE metformin SA 750mg BID - SMBG 2-3x/week - Monitor for s/sx hypoglycemia and contact clinic if BG consistently < 70mg/dL - Healthy lifestyle modifications encouraged - Repeat A1c: on order by PCP for next visit Clinic's Next Scheduled Follow-up: 6 months HTN: Last BP elevated but home BP at goal; ADR to JARROD-I. ASCVD: atorvastatin 20mg/day Microalb: 28.3 mg/G (04/2023) History of Preventive Care: Most recent visit to depot manager: 09/2023 Most recent visit to optometry: 02/2023; Diabetes without retinopathy or macular edema either eye. Time Spent: 20 minutes PBM PharmD Pharmacotherapy Rem V12: PHARMACIST INTERVENTIONS: TYPE 2 DIABETES MELLITUS Medication monitoring, no dosage change required, continue to monitor and assess Medication reconciliation (changes to active VA and non-VA medication lists to reconcile differences) No changes to medication lists made (medication review completed, no discrepancies identified) /lisa/ Jonah Sanchez PharmD Clinical Pharmacy Practitioner Signed: 09/29/2023 08:41 JONAH SANCHEZFIELD
--- OUTSIDE RECORDS SUMMARY | 2024-05-10 07:27 | XMS_ITS ---
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 ([place]) Address [address] [place] [address] Care Team Providers Care Ear Mold Laboratory Technician Name Role Phone CHITO SEGURA Primary [...] PART A Feb 16, 2018 PART A [id number] YENNY OVIEDO ES PATIENT MEDICARE (WNR) MEDICARE (M) PART B Feb 16, 2018 PART B [id number] YENNY OVIEDO ES PATIENT MEDICARE (WNR) MEDICARE (M) PART A Oct 17, 2006 PART A [id number] [facility] YENNY OVIEDO PATIENT FOR LIFE TFL* Apr 06, 2018 [id number] YENNY OVIEDO PATIENT Selected Encounter This section includes the information on record at ID for the Encounter. Date/Time Encounter Type Encounter Description Reason Provider Source October 01, 2023 09:00 AM KRISTOPHER MDLTY 1+ULTRASOUND EA 15 OCCUPATIONAL THERAPY ICD-10-CM M25.312 Other instability, left shoulder MACHON,NAN E IHE Encounter Template Text not used by [place] Assessments - Encounter Diagnoses This section includes the primary and secondary diagnoses documented for the Encounter. Date/Time Primary/Secondary Diagnosis Diagnosis Name Provider Source October 01, 2023 01:21 PM PRIMARY Other instability, left shoulder MACHON,NAN E [facility] [place] [facility] Plan of Treatment: Future Appointments (+ 6 months) and Future Tests (+/- 45 days) The Plan of Treatment section includes future care activities for the patient from all [place] [facility]. This section includes future appointments and future orders which are active, pending or scheduled. Future Appointments This section includes appointments that were scheduled to occur 6 months from the date of the Encounter, up to a maximum of 20 appointments. The data comes from all [place] treatment facilities. Appointment Date/Time Appointment Type Appointme nt Facility Name October 07, 2023 02:30 PM AMBULATORY - REH[facility] MEDICIN E [facility] [place] [facility] October 16, 2023 07:30 AM AMBULATORY - REH[facility] MEDICIN E [facility] [place] [facility] Nov 03, 2023 07:30 AM AMBULATORY - REHAB MEDICIN E [facility] [place] [facility] Nov 06, 2023 11:00 AM AMBULATORY - MEDICINE [facility] [place] [facility] Nov 10, 2023 07:30 AM AMBULATORY - REHAB MEDICIN E [facility] [place] [facility] Nov 18, 2023 11:00 AM AMBULATORY - NONE [facility] [place] [facility] Nov 27, 2023 07:15 AM AMBULATORY - NONE [facility] [place] [facility] Nov 27, 2023 07:45 AM AMBULATORY - NONE [facility] [place] [facility] Dec 01, 2023 08:00 AM [facility] Jan 12, 2024 11:25 AM AMBULATORY - MEDICINE [facility] [place] [facility] Jan 12, 2024 11:40 AM AMBULATORY - MEDICINE [facility] [place] [facility] Jan 22, 2024 01:00 PM AMBULATORY - MEDICINE [facility] [place] [facility] Jan 29, 2024 08:45 AM AMBULATORY - MEDICINE [place] [facility] [place] [facility] Feb 16, 2024 08:00 AM AMBULATORY - MEDICINE [facility] Feb 17, 2024 07:30 AM AMBULATORY - NONE [facility] [place] [facility] Mar 16, 2024 09:30 AM AMBULATORY - NONE [facility] [place] [facility] Mar 30, 2024 07:30 AM AMBULATORY - MEDICINE [facility] Social History: Smoking Status (Most current) [...] 21, 2023 01:30 PM [facility] Tobacco Use History This section includes a history of the smoking, or tobacco-related health factors, that were collected on or before the date of the Encounter. The data comes from the [place] facility where the Encounter took place. Date/Time Smoking Status/Tobacco Use Comment F acility Jul 21, 2023 01:30 PM VA-TOBACCO QUIT 15 YRS OR MORE [facility] [place] [facility] Mar 28, 2021 03:28 PM VA-TOBACCO FORMER USER [place] [facility] [place] [facility] Mar 28, 2021 03:28 PM VA-TOBACCO QUIT 15 YRS OR MORE [facility] [place] [facility] Dec 02, 2019 09:36 AM VA-TOBACCO NEVER USED [facility] Apr 23, 2005 10:19 AM QUIT [facility]AC[facility] Advance Directives: All historical and current [...] 16, 2011 ADVANCE DIRECTIVE DISCUSSION MARGARITA TERRAZAS [place] Encounter Notes: All associated encounter notes This section contains the clinical notes associated to the Encounter. 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 Special instructions: passive/active ROM and gentle theraband. DOS: 02/08/2024 SUBJECTIVE: Pt reports shoulder is alright. He [...] *Supine shoulder supine with 2# weight, 2x10 ADDED: *sh ER w/ 1# weight in sidelying, 2x10 Access Code: [email or web address] URL: [email or web address] Date: 10/01/2023 Prepared by: ID [facility] Exercises - Supine Shoulder Flexion AAROM with [...] - 3 sets - 10 reps - Sidelying Shoulder ER with Towel and Dumbbell - 1 x daily - 7 x [...] clinical encounter. ASSESSMENT: Pt tolerated tx well. Discomfort and crepitation noted with rows, discontinued from tx. continued w/ 2# weight w/ supine shoulder flexion and supine chest press. Pt tolerated and performed well. Added side lying ER with weight. Pt reported no increase in pain during exercise. Ttp in anterior shoulder musculature. No increase in pain during tx. PLAN: continue w/ OT POC; modify tx as needed. progress w/ HEP as tolerated. pt is in agreement w/ this POC. This treatment was primarily performed by TRISTIAN Rose, however, I, Nan Pike, MS OTR/Stewart, MARKT, was present during the course of this treatment in its entirety providing direct supervision for this student, I agree with treatment and plan of care as stated above. /lisa/ Nan Pike, MS OTR/Stewart, LESLEY Occupational Therapist Signed: 10/01/2023 13:21 NAN PIKE [facility]
--- OUTSIDE RECORDS SUMMARY | 2024-05-10 07:27 | XMS_ITS | Encounter Summary ---
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 [place] Organization [place] Address [address] [place] [address] Care Team Providers Care Storeroom Supervisor Name Role Phone CHITO SEGURA Primary [...] PART A Feb 16, 2018 PART A [id number] YENNY OVIEDO ES PATIENT MEDICARE (WNR) MEDICARE (M) PART B Feb 16, 2018 PART B [id number] YENNY OVIEDO ES PATIENT MEDICARE (WNR) MEDICARE (M) PART A Oct 17, 2006 PART A [id number] [facility] [phone] YENNY OVIEDO PATIENT FOR LIFE TFL* Apr 06, 2018 [id number] YENNY OVIEDO PATIENT Selected Encounter This section includes the information on record at [place] for the Encounter. Date/Time Encounter Type Encounter Description Reason Provider Source October 07, 2023 02:30 PM THERAPEUTIC EXERCISES OCCUPATIONAL THERAPY ICD-10-CM M25.312 Other instability, left shoulder MACHON,NAN E IHE Encounter Template Text not used by [place] Assessments - Encounter Diagnoses This section includes the primary and secondary diagnoses documented for the Encounter. Date/Time Primary/Secondary Diagnosis Diagnosis Name Provider Source October 08, 2023 07:16 AM PRIMARY Other instability, left shoulder MACHON,NAN E [facility] [place] [facility] Plan of Treatment: Future Appointments [...] Appointment Type Appointme nt Facility Name October 16, 2023 07:30 AM AMBULATORY - REHAB MEDICIN E [facility] [place] [facility] Nov 03, 2023 07:30 AM AMBULATORY - REHAB MEDICIN E [facility] [place] [facility] Nov 06, 2023 11:00 AM AMBULATORY - MEDICINE [facility] [place] [facility] Nov 10, 2023 07:30 AM AMBULATORY - REHAB MEDICIN E [facility] [place] [facility] Nov 18, 2023 11:00 AM AMBULATORY - NONE [facility] [place] [facility] Nov 27, 2023 07:15 AM AMBULATORY - NONE [facility] [place] [facility] Nov 27, 2023 07:45 AM AMBULATORY - NONE [facility] [place] [facility] Dec 01, 2023 08:00 AM [facility] Jan 12, 2024 11:25 AM AMBULATORY - MEDICINE [facility] [facility] Jan 12, 2024 11:40 AM AMBULATORY - MEDICINE [facility] [place] [facility] Jan 22, 2024 01:00 PM AMBULATORY - MEDICINE [facility] [place] [facility] Jan 29, 2024 08:45 AM AMBULATORY - MEDICINE [facility] [place] [facility] Feb 16, 2024 08:00 AM AM[facility]ULATORY - [facility]ICINE [facility] Feb 17, 2024 07:30 AM AMBULATORY - NONE [facility] [place] [facility] Mar 16, 2024 09:30 AM AMBULATORY - NONE [facility] [place] [facility] Mar 30, 2024 07:30 AM AMBULATORY - MEDICINE [facility] [place] [facility] Apr 06, 2024 09:00 AM AMBULATORY - MEDICINE [facility] Social History: Smoking Status (Most [...] 21, 2023 01:30 PM [facility] Tobacco Use History This section includes a history of the smoking, or tobacco-related health factors, that were collected on or before the date of the Encounter. The data comes from the [place] facility where the Encounter took place. Date/Time Smoking Status/Tobacco Use Comment F acility Jul 21, 2023 01:30 PM VA-TOBACCO QUIT 15 YRS OR MORE [facility] [place] [facility] Mar 28, 2021 03:28 PM VA-TOBACCO FORMER USER [facility] [place] [facility] Mar 28, 2021 03:28 PM VA-TOBACCO QUIT 15 YRS OR MORE [facility] [place] [facility] Dec 02, 2019 09:36 AM VA-TOBACCO NEVER USED [place] [facility] [place] [facility] Apr 23, 2005 10:19 AM QUIT TOBACCO USE IN PAST YEAR MA [facility] Advance Directives: All historical and [...] Encounter. 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 Special instructions: passive/active ROM and gentle theraband. DOS: 02/08/2024 SUBJECTIVE: Pt reports shoulder very sore lately. He hasn't been able to do HEP because of inflammation in shoulder. He's not sure what exacerbated it. Pain: 2-3/10 currently OBJECTIVE: THERAPEUTIC EXERCISE: *UBE 2' forward, 2' backward 2.0 *hiram into flexion, w/ 10 second hold on L, x10 *wall slides into flexion, 1x10 *sh rows w/ blue bands, 1x10 *sh extensions w/ blue bands, 1x10 ADDED: *ABCs scap ball on wall, x2 URL: [email or web address] Date: 10/01/2023 Prepared by: [facility] Exercises - Supine Shoulder Flexion AAROM [...] THERAPY: *mobilization to anterior shoulder musculature/biceps musculature, seated MINUTES: 8 THERAPEUTIC DYNAMIC ACTIVITIES: MINUTES: NEUROMUSCULAR EDUCATION: MINUTES: OTHER: MINUTES: MODALITIES: *MHP to L shoulder prior to tx MINUTES: 3 [] Contraindication screen completed prior to modality [] Skin intact pre/post SELF CARE/EDUCATION: MINUTES: Patient education was provided for all aspects of care during this clinical encounter. ASSESSMENT: Pt tolerated tx well. Pt reports feeling sore today, took it easy with exercises. added ABCs ball on wall. Pt performed and tolerated well. Pt denies pain but endorses fatigue with exercise. Ttp in anterior shoulder musculature. No increase in pain during or following tx. PLAN: continue w/ OT POC; modify tx as needed. progress w/ HEP as tolerated. pt is in agreement w/ this POC. This treatment was primarily performed by TRISTIAN Martin, however, I, Nan Pike, MS OTR/L, CHT, was present during the course of this treatment in its entirety providing direct supervision for this student, I agree with treatment and plan of care as stated above. /lisa/ Nan Pike, MS OTR/LESLEY William Occupational Therapist Signed: 10/08/2023 07:16 Receipt Acknowledged By: 10/08/2023 07:19 /lisa/ [employer] OCCUPATIONAL THERAPY STUDENT NAN PIKE [place] [facility]
--- OUTSIDE RECORDS SUMMARY | 2024-05-10 07:27 | XMS_ITS ---
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 [place]) Organization [facility] [place] [facility] [place] Address [address] [place] [address] Care Team Providers Care Freight Handler Name Role Phone CHITO SEGURA Primary Care [...] PART A Feb 16, 2018 PART A [id number] YENNY OVIEDO ES PATIENT MEDICARE (WNR) MEDICARE (M) PART B Feb 16, 2018 PART B [id number] YENNY OVIEDO ES PATIENT MEDICARE (WNR) MEDICARE (M) PART A Oct 17, 2006 PART A [id number] YENNY OVIEDO PATIENT FOR LIFE TFL* Apr 06, 2018 [id number] YENNY OVIEDO PATIENT Selected Encounter This section includes the information on record at OR for the Encounter. Date/Time Encounter Type Encounter Description Reason Provider Source Sep 15, 2023 09:00 AM THERAPEUTIC EXERCISES OCCUPATIONAL THERAPY ICD-10-CM M25.312 Other instability, left shoulder MACHON,NAN E IHE Encounter Template Text not used by OR Assessments - Encounter Diagnoses This section includes the primary and secondary diagnoses documented for the Encounter. Date/Time Primary/Secondary Diagnosis Diagnosis Name Provider Source Sep 15, 2023 02:19 PM PRIMARY Other instability, left shoulder MACHON,NAN E [facility] [place] [facility] Plan of Treatment: Future Appointments (+ 6 months) and Future Tests (+/- 45 days) The Plan of Treatment section includes future care activities for the patient from all [place] treatmentfacilities. This section includes future appointments and future orders which are active, pending or scheduled. Future Appointments This section includes appointments that were scheduled to occur 6 months from the date of the Encounter, up to a maximum of 20 appointments. The data comes from all [place] treatment facilities. Appointment Date/Time Appointment Type Appointme nt Facility Name September 22, 2023 09:00 AM AMBULATORY - REHAB MEDICIN E [facility] [place] [facility] September 29, 2023 08:00 AM [facility]ULATORY - MEDICINE [facility] September 29, 2023 08:30 AM AM[facility]ATORY - MEDICINE [facility] October 01, 2023 09:00 AM AMBULATORY - REHAB MEDICIN E [facility] [place] [facility] October 07, 2023 02:30 PM AMBULATORY - REHAB MEDICIN E [facility] [place] [facility] October 16, 2023 07:30 AM AMBULATORY - REHAB MEDICIN E [facility] [place] [facility] Nov 03, 2023 07:30 AM AMBULATORY - REHAB MEDICIN E [facility] [place] [facility] Nov 06, 2023 11:00 AM AMBULATORY - MEDICINE [facility] [place] [facility] Nov 10, 2023 07:30 AM AMBULATORY - REHAB MEDICIN E [facility] [place] [facility] Nov 18, 2023 11:00 AM AMBULATORY - NONE [facility] [place] [facility] Nov 27, 2023 07:15 AM AMBULATORY - NONE [facility] [place] [facility] Nov 27, 2023 07:45 AM AMBULATORY - NONE [facility] [place] [facility] Dec 01, 2023 08:00 AM [facility] Jan 12, 2024 11:25 AM AMBULATORY - MEDICINE [place] [facility] [place] [facility] Jan 12, 2024 11:40 AM AMBULATORY - MEDICINE [place] [facility] [place] [facility] Jan 22, 2024 01:00 PM AMBULATORY - MEDICINE [place] [facility] [place] [facility] Jan 29, 2024 08:45 AM AMBULATORY - MEDICINE [place] [facility] [place] [facility] Feb 16, 2024 08:00 AM AMBULATORY - MEDICINE [facility] Feb 17, 2024 07:30 AM AMBULATORY - NONE [facility] [place] [facility] Mar 16, 2024 09:30 AM AMBULATORY - NONE [facility] [place] [facility] Social History: Smoking Status (Most current) and [...] 21, 2023 01:30 PM VA-TOBACCO FORMER USER [place] [facility] [place] [facility] Tobacco Use History This section includes a history of the smoking, or tobacco-related health factors, that were collected on or before the date of the Encounter. The data comes from the [place] facility where the Encounter took place. Date/Time Smoking Status/Tobacco Use Comment F acility Jul 21, 2023 01:30 PM VA-TOBACCO QUIT 15 YRS OR MORE [facility] [place] [facility] Mar 28, 2021 03:28 PM VA-TOBACCO FORMER USER [facility] [place] [facility] Mar 28, 2021 03:28 PM VA-TOBACCO QUIT 15 YRS OR MORE [facility] [place] [facility] Dec 02, 2019 09:36 AM VA-TOBACCO NEVER USED [facility] [place] [facility] Apr 23, 2005 10:19 AM QUIT TOBACCO USE IN PAST YEAR [facility] [place] [facility] Advance Directives: All historical and current Section [...] 16, 2011 ADVANCE DIRECTIVE DISCUSSION MARGARITA TERRAZAS [place] Encounter Notes: All associated encounter notes This section contains the clinical notes associated to the Encounter. 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 Special instructions: passive/active ROM and gentle theraband. DOS: 02/08/2024 29 weeks 3 days post-op SUBJECTIVE: Pt reports clicking in the shoulder and no change in pain. Pain seems to come and go. Pain: 0/10 rest 6/10 at worst OBJECTIVE: THERAPEUTIC EXERCISE: *UBE 2' forward, 2' backward 2.0 *hiram into flexion, w/ 10 second hold on L, x10 *wall slides into flexion, 1x10 *ABC's in supine, x2, on L *single arm bent rows, 2x10 w/ 2# weight *supine serratus punches, 1x10 Added: Supine shoulder supine with 2# weight, 2x 10 Access Code: [email or web address] URL: [email or web address] Date: 09/01/2023 Prepared by: OR [facility] Exercises - Supine Shoulder Flexion AAROM with [...] clinical encounter. ASSESSMENT: Pt tolerated tx well. Crepitation noted in scapular musculature during bent rows. Added supine flexion with weight to HEP and tx and pt tolerated well. Ttp in anterior shoulder musculature. Less tightness noted in anterior shoulder following mobilization. pt reported feeling good after tx. PLAN: continue w/ OT POC; modify tx as needed. progress w/ HEP as tolerated. pt is in agreement w/ this POC. This treatment was primarily performed by TRISTIAN Rose, however, Nan Salmon, MS OTR/L, CHT, was present during the course of this treatment in its entirety providing direct supervision for this student, I agree with treatment and plan of care as stated above. /lisa/ Nan Pike, MS OTR/Stewart, CHT Occupational Therapist Signed: 09/15/2023 14:19 Receipt Acknowledged By: 09/15/2023 14:23 /lisa/ [employer] OCCUPATIONAL THERAPY STUDENT NAN [facility]KE [facility]
--- OUTSIDE RECORDS SUMMARY | 2024-05-10 07:28 | XMS_ITS | Encounter Summary ---
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 [place] Organization Department of [place] Address [address] [place] [address] Care Team Providers Care Loading Machine Operator Helper Name Role Phone CHITO SEGURA Primary [...] PART A Feb 16, 2018 PART A [id number] YENNY OVIEDO ES PATIENT MEDICARE (WNR) MEDICARE (M) PART B Feb 16, 2018 PART B [id number] YENNY OVIEDO ES PATIENT MEDICARE (WNR) MEDICARE (M) PART A Oct 17, 2006 PART A [id number] [facility] YENNY OVIEDO PATIENT FOR LIFE TFL* Apr 06, 2018 [id number] YENNY OVIEDO PATIENT Selected Encounter This section includes the information on record at OR for the Encounter. Date/Time Encounter Type Encounter Description Reason Provider Source Nov 10, 2023 07:30 AM THERAPEUTIC EXERCISES OCCUPATIONAL THERAPY ICD-10-CM M25.312 Other instability, left shoulder MACHON,DEENA E IHE Encounter Template Text not used by OR Assessments - Encounter Diagnoses This section includes the primary and secondary diagnoses documented for the Encounter. Date/Time Primary/Secondary Diagnosis Diagnosis Name Provider Source Nov 10, 2023 11:20 AM PRIMARY Other instability, left shoulder MACHON,DEENA E [place] [facility] [place] [facility] Plan of Treatment: Future Appointments [...] Appointment Type Appointme nt Facility Name Nov 18, 2023 11:00 AM AMBULATORY - NONE [facility] [place] [facility] Nov 27, 2023 07:15 AM AMBULATORY - NONE [facility] [place] [facility] Nov 27, 2023 07:45 AM AMBULATORY - NONE [facility] [place] [facility] Dec 01, 2023 08:00 AM [facility] Jan 12, 2024 11:25 AM AMBULATORY - MEDICINE [place] [facility] [place] [facility] Jan 12, 2024 11:40 AM AMBULATORY - MEDICINE [place] [facility] [place] [facility] Jan 22, 2024 01:00 PM AMBULATORY - MEDICINE [place] [facility] [place] [facility] Jan 29, 2024 08:45 AM AMBULATORY - MEDICINE [place] [facility] [place] [facility] Feb 16, 2024 08:00 AM AMBULATORY - MEDICINE [facility] Feb 17, 2024 07:30 AM AMBULATORY - NONE [facility] [place] [facility] Mar 16, 2024 09:30 AM AMBULATORY - NONE [facility] [place] [facility] Mar 30, 2024 07:30 AM AMBULATORY - MEDICINE [place] [facility] [place] [facility] Apr 06, 2024 09:00 AM [facility] Apr 12, 2024 08:00 AM [place] [place] [place] Apr 12, 2024 11:00 AM AMBULATORY - MEDICINE [place] [facility] [place] [facility] Apr 12, 2024 01:30 PM AMBULATORY - MEDICINE [place] [facility] [place] [facility] Apr 30, 2024 01:40 PM AMBULATORY - NONE [facility] Social History: Smoking Status (Most [...] 21, 2023 01:30 PM [facility] Tobacco Use History This section includes a history of the smoking, or tobacco-related health factors, that were collected on or before the date of the Encounter. The data comes from the [place] facility where the Encounter took place. Date/Time Smoking Status/Tobacco Use Comment F acility Jul 21, 2023 01:30 PM VA-TOBACCO QUIT 15 YRS OR MORE [place] [facility] [place] [facility] Mar 28, 2021 03:28 PM VA-TOBACCO FORMER USER [place] [facility] [place] [facility] Mar 28, 2021 03:28 PM VA-TOBACCO QUIT 15 YRS OR MORE [place] [facility] [place] [facility] Dec 02, 2019 09:36 AM VA-TOBACCO [facility]ED [facility] Apr 23, 2005 10:19 AM QUIT TOBACCO USE IN PAST YEAR [facility] Advance Directives: All historical and current [...] Encounter. 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 It is sore today. It is overall better than it was. Pain: 1-2/10 currently OBJECTIVE: AROM: Shoulder: [R] [L] Flexion: WNL WNL Abduction: WNL WNL IR: WNL WNL ER: WNL WNL MMT: Shoulder: [R] [L] Flexion: 5/5 4+/5 Abduction: 5/5 5/5 IR: 5/5 5/5 ER: 5/5 5/5 Resisted Motions: discomfort noted w/ resisted shoulder flexion THERAPEUTIC EXERCISE: *UBE 2' forward, 2' backward 2.0 *hiram into flexion, w/ 10 second hold on L, x10 *wall slides into flexion, 1x10 *ABCs scap ball on wall, x1 *bicep curls w/ 3# weight, 1x10 *shoulder flexion w/ 3# weight, 1x10 MINUTES: 20 MANUAL THERAPY: *mobilization to anterior shoulder musculature/biceps musculature, seated MINUTES: 9 THERAPEUTIC DYNAMIC ACTIVITIES: MINUTES: NEUROMUSCULAR EDUCATION: MINUTES: OTHER: MINUTES: MODALITIES: *MHP to L shoulder prior to tx MINUTES: 3 [] Contraindication screen completed prior to modality [] Skin intact pre/post SELF CARE/EDUCATION: MINUTES: Patient education was provided for all aspects of care during this clinical encounter. ASSESSMENT: Pt tolerated tx well. Pt reports feeling a bit sore. Pt continues to tolerate strengthening exercises well. Increased weight to 3# with sh flexion and bicep curls. Pt tolerated and performed well. Pt reports no increased in pain during TE. Ttp and tightness noted in anterior shoulder musculature. AROM is WNL and strength is nearly full in all planes. persistent crepitation noted. Pt reports his shoulder overall is better than it was before initiating tx. PLAN: Pt to continue with HEP. Will keep chart open for 30 days in the event he would like to schedule a few additional visits. pt is in agreement w/ this POC. This treatment was primarily performed by TRISTIAN Martin, however, I, Deena Pike MS OTR/Stewart, LESLEY, was present during the course of this treatment in its entirety providing direct supervision for this student, I agree with treatment and plan of care as stated above. /lisa/ MS MARY ALICE Zuluaga/LESLEY William Occupational Therapist Signed: 11/10/2023 11:20 Receipt Acknowledged By: 11/10/2023 11:24 /lisa/ [employer] OCCUPATIONAL THERAPY STUDENT DEENA PIKE [facility]
--- OUTSIDE RECORDS SUMMARY | 2024-05-10 07:28 | XMS_ITS ---
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 Address [address] [place] [id number] Care Team Providers Care Prop And Scenery Maker Name Role Phone CHITO SEGURA Primary Care [...] PART A Feb 16, 2018 PART A [id number] YENNY OVIEDO PATIENT MEDICARE (WNR) MEDICARE (M) PART B Feb 16, 2018 PART B [id number] YENNY OVIEDO ES PATIENT MEDICARE (WNR) MEDICARE (M) PART A Oct 17, 2006 PART A [id number] [facility] [phone] YENNY OVIEDO PATIENT FOR LIFE TFL* Apr 06, 2018 [id number] YENNY OVIEDO PATIENT Selected Encounter This section includes the information on record at [place] for the Encounter. Date/Time Encounter Type Encounter Description Reason Provider Source Nov 24, 2023 04:06 PM REPL WATER CHAMBER, PAP DEV ADMIN PAT ACTIVTIES (MASNONCT) ICD-10-CM G47.30 Sleep apnea, unspecified YASSINE BARGER E Encounter Template Text not used by [place] Assessments - Encounter Diagnoses This section includes the primary and secondary diagnoses documented for the Encounter. Date/Time Primary/Secondary Diagnosis Diagnosis Name Provider Source Dec 20, 2023 08:31 AM PRIMARY Sleep apnea, unspecified YASSINE BARGER [place] [facility] [facility] Plan of Treatment: Future Appointments (+ 6 months) and Future Tests (+/- 45 days) The Plan of Treatment section includes future care activities for the patient from all [place] treatmentfacilities. This section includes future appointments and future orders which are active, pending or scheduled. Future Appointments This section includes appointments that were scheduled to occur 6 months from the date of the Encounter, up to a maximum of 20 appointments. The data comes from all [place] treatment facilities. Appointment Date/Time Appointment Type Appointme nt Facility Name Nov 27, 2023 07:15 AM AMBULATORY - NONE [facility] [place] [facility] Nov 27, 2023 07:45 AM AMBULATORY - NONE [facility] [place] [facility] Dec 01, 2023 08:00 AM AMBULATORY - MEDICINE [facility] Jan 12, 2024 11:25 AM AMBULATORY - MEDICINE [place] [facility] [place] [facility] Jan 12, 2024 11:40 AM AMBULATORY - MEDICINE [place] [facility] [place] [facility] Jan 22, 2024 01:00 PM AMBULATORY - MEDICINE [place] [facility] [place] [facility] Jan 29, 2024 08:45 AM AMBULATORY - MEDICINE [place] [facility] [place] [facility] Feb 16, 2024 08:00 AM AMBULATORY - MEDICINE [facility] Feb 17, 2024 07:30 AM AMBULATORY - NONE [facility] [facility] Mar 16, 2024 09:30 AM AMBULATORY - NONE [facility] [facility] Mar 30, 2024 07:30 AM AMBULATORY - MEDICINE [place] [facility] [place] [facility] Apr 06, 2024 09:00 AM AMBULATORY - MEDICINE [facility] Apr 12, 2024 08:00 AM AMBULATORY - MEDICINE [facility] Apr 12, 2024 11:00 AM AM[place]UL[place]ORY - [place] [facility] Apr 12, 2024 01:30 PM AMBULATORY - MEDICINE [place] [facility] [place] [facility] Apr 30, 2024 01:40 PM [facility] Social History: Smoking Status (Most current) [...] 21, 2023 01:30 PM VA-TOBACCO [facility] Tobacco Use History This section includes a history of the smoking, or tobacco-related health factors, that were collected on or before the date of the Encounter. The data comes from the [place] facility where the Encounter took place. Date/Time Smoking Status/Tobacco Use Comment F acility Jul 21, 2023 01:30 PM [facility] Mar 28, 2021 03:28 PM [facility]ACCO [facility] Mar 28, 2021 03:28 PM VA-TOBACCO QUIT 15 YRS OR MORE [place] [facility] [place] [facility] Dec 02, 2019 09:36 AM VA-TOBACCO [facility]ED [facility] Apr 23, 2005 10:19 AM QUIT TOBACCO USE [facility]ST [facility] Advance Directives: All historical and [...] Encounter. Date/Time Encounter Note(s) Provider Source Nov 24, 2023 04:06 PM RESPIRATORY THERAP Y NOTE: LOCAL TITLE: RESPIRATORY THERAPY NOTE(BLANK) STANDARD TITLE: RESPIRATORY THERAPY NOTE DATE OF NOTE: NOV 24, 2023@16:06 ENTRY DATE: NOV 24, 2023@16:06:14 AUTHOR: YASSINE BARGER EXP COSIGNER: URGENCY: STATUS: COMPLETED diagnosed with sleep apnea requested replacement supplies. Equipment will be sent to vet's home address via prosthetic stock. /lisa/ YASSINE BARGER RESPIRATORY THERAPIST Signed: 11/24/2023 16:07 YASSINE BARGER [place] [facility] [facility] [facility]
--- OUTSIDE RECORDS SUMMARY | 2024-05-10 07:28 | XMS_ITS | Encounter Summary ---
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 Address [address] [place] [address] Care Team Providers Care Nurse Practitioner Physician Assistant Name Role Phone CHITO SEGURA Primary Care [...] PART A Feb 16, 2018 PART A [id number] YENNY OVIEDO PATIENT MEDICARE (WNR) MEDICARE (M) PART B Feb 16, 2018 PART B [id number] [phone] [id number] YENNY OVIEDO ES PATIENT MEDICARE (WNR) MEDICARE (M) PART A Oct 17, 2006 PART A [id number] [facility] [phone] YENNY OVIEDO PATIENT FOR LIFE TFL* Apr 06, 2018 [id number] [phone] YENNY OVIEDO PATIENT Selected Encounter This section includes the information on record at [place] for the Encounter. Date/Time Encounter Type Encounter Description Reason Provider Source Nov 10, 2023 04:42 PM POS AIRWAY PRESSURE CPAP TELEPHONE/MEDICIN E ICD-10-CM G47.30 Sleep apnea, unspecified JOHNNY CURRY [facility] Encounter Template Text not used by [place] Assessments - Encounter Diagnoses This section includes the primary and secondary diagnoses documented for the Encounter. Date/Time Primary/Secondary Diagnosis Diagnosis Name Provider Source Nov 10, 2023 04:42 PM PRIMARY Sleep apnea, unspecified JOHNNY CURRY [place] [facility] Plan of Treatment: Future Appointments (+ 6 months) and Future Tests (+/- 45 days) The Plan of Treatment section includes future care activities for the patient from all [place] [facility]. This section includes future appointments and future orders which are active, pending or scheduled. Future Appointments This section includes appointments that were scheduled to occur 6 months from the date of the Encounter, up to a maximum of 20 appointments. The data comes from all [place] treatment facilities. Appointment Date/Time Appointment Type Appointme nt Facility Name Nov 18, 2023 11:00 AM AMBULATORY [facility] NONE [facility] [place] [facility] Nov 27, 2023 07:15 AM AMBULATORY [facility] NONE [facility] [place] [facility] Nov 27, 2023 07:45 AM AMBULATORY - NONE [place] [facility] [place] [facility] Dec 01, 2023 08:00 AM AMBULATORY - MEDICINE [facility] Jan 12, 2024 11:25 AM AMBULATORY - MEDICINE [place] [facility] [place] [facility] Jan 12, 2024 11:40 AM AMBULATORY - MEDICINE [place] [facility] [place] [facility] Jan 22, 2024 01:00 PM AMBULATORY - MEDICINE [place] [facility] [place] [facility] Jan 29, 2024 08:45 AM AMBULATORY - MEDICINE [place] [facility] [place] [facility] Feb 16, 2024 08:00 AM AMBULATORY - MEDICINE [facility] Feb 17, 2024 07:30 AM AMBULATORY - NONE [facility] [place] [facility] Mar 16, 2024 09:30 AM AMBULATORY - NONE [facility] [place] [facility] Mar 30, 2024 07:30 AM AMBULATORY - MEDICINE [place] [facility] [place] [facility] Apr 06, 2024 09:00 AM AMBULATORY - MEDICINE [facility] Apr 12, 2024 08:00 AM AM[place]IC[place] [place] Apr 12, 2024 11:00 AM AMBULATORY - MEDICINE [place] [facility] [place] [facility] Apr 12, 2024 01:30 PM AMBULATORY - MEDICINE [place] [facility] [place] [facility] Apr 30, 2024 01:40 PM AMBULATORY - NONE [place] [facility] Social History: Smoking Status (Most current) and Tobacco Use (All prior to encounter date) This section includes the most current, and the historical, smoking and tobacco- related health factors from the [place] facility where the Encounter took place. Current Smoking Status This section includes the most current smoking, or tobacco-related health factor, from the [place] facility where the Encounter took place. Date/Time Current Smoking Status Comment Ginger ity Jul 21, 2023 01:30 PM [facility] Tobacco Use History This section includes a history of the smoking, or tobacco-related health factors, that were collected on or before the date of the Encounter. The data comes from the [place] facility where the Encounter took place. Date/Time Smoking Status/Tobacco Use Comment F acility Jul 21, 2023 01:30 PM VA-TOBACCO QUIT 15 YRS OR MORE [place] [facility] [facility] Mar 28, 2021 03:28 PM VA-TOBACCO FORMER USER [place] [facility] [place] [facility] Mar 28, 2021 03:28 PM VA-TOBACCO QUIT 15 YRS OR MORE [place] [facility] [facility] Dec 02, 2019 09:36 AM VA-TOBACCO NEVER USED [place] [facility] Apr 23, 2005 10:19 AM QUIT [facility]AC[facility] Advance Directives: All historical and current Section Date Range: From patient's date of to the date document was created. This section includes ALL of a patient's completed or amended [place] Advance and Rescinded Directives. The entries below indicate that a directive exists for the patient, but an actual copy is not included with this document. The data comes from all [place] facilities. Date Advance Directives Provider Source Dec 16, 2011 ADVANCE DIRECTIVE DISCUSSION MARGARITA TERRAZAS Encounter Notes: All associated encounter notes This section contains the clinical notes associated to the Encounter. Date/Time Encounter Note(s) Provider Source Nov 10, 2023 04:42 PM RESPIRATORY THERAP Y NOTE: LOCAL TITLE: RESPIRATORY THERAPY NOTE(BLANK) STANDARD TITLE: RESPIRATORY THERAPY NOTE DATE OF NOTE: NOV 10, 2023@16:42 ENTRY DATE: NOV 10, 2023@16:42:56 AUTHOR: JOHNNY CURRY COSIGNER: URGENCY: STATUS: COMPLETED , diagnosed with sleep apnea, contacted clinic for a PAP supplies. is compliant and supplies will be ordered from [facility]. [facility] is out of water tubs at this time. /lisa/ JOHNNY CURRY, JEWELLERY DESIGNER RESPIRATORY THERAPIST Signed: 11/10/2023 16:44 JOHNNY CURRY [place] [facility]
--- OUTSIDE RECORDS SUMMARY | 2024-05-10 07:28 | XMS_ITS | Encounter Summary ---
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 Address [address] [place] [id number] Care Team Providers Care Dry Wall Finisher Name Role Phone CHITO SEGURA Primary Care [...] PART A Feb 16, 2018 PART A [id number] [phone] YENNY OVIEDO PATIENT MEDICARE (WNR) MEDICARE (M) PART B Feb 16, 2018 PART B [id number] [phone] [id number] YENNY OVIEDO ES PATIENT MEDICARE (WNR) MEDICARE (M) PART A Oct 17, 2006 PART A [id number] YENNY OVIEDO PATIENT FOR LIFE TFL* Apr 06, 2018 [id number] YENNY OVIEDO PATIENT Selected Encounter This section includes the information on record at [place] for the Encounter. Date/Time Encounter Type Encounter Description Reason Provider Source Nov 10, 2023 02:21 PM Outpatient Encounter PODIATRY NAVEEN WITT [place] Encounter Template Text not used by [place] Plan of Treatment: Future Appointments (+ 6 months) and Future Tests (+/- 45 days) The Plan of Treatment section includes future care activities for the patient from all [place] [facility]. This section includes future appointments and [...] AMBULATORY - NONE [facility] [place] [facility] Nov 27, 2023 07:15 AM AMBULATORY - NONE [facility] [place] [facility] Nov 27, 2023 07:45 AM AMBULATORY - NONE [facility] [place] [facility] Dec 01, 2023 08:00 AM AMBULATORY - MEDICINE [facility] Jan 12, 2024 11:25 AM AMBULATORY - MEDICINE [facility] [place] [facility] Jan 12, 2024 11:40 AM AMBULATORY - MEDICINE [facility] [place] [facility] Jan 22, 2024 01:00 PM AMBULATORY - MEDICINE [facility] [place] [facility] Jan 29, 2024 08:45 AM AMBULATORY - MEDICINE [facility] [place] [facility] Feb 16, 2024 08:00 AM AMBULATORY - MEDICINE [facility] Feb 17, 2024 07:30 AM AMBULATORY - NONE [facility] [place] [facility] Mar 16, 2024 09:30 AM AMBULATORY - NONE [facility] [place] [facility] Mar 30, 2024 07:30 AM AMBULATORY - MEDICINE [facility] [place] [facility] Apr 06, 2024 09:00 AM AMBULATORY - MEDICINE [facility] Apr 12, 2024 08:00 AM AMBULATORY - MEDICINE [facility] Apr 12, 2024 11:00 AM AMBULATORY - MEDICINE [facility] [place] [facility] Apr 12, 2024 01:30 PM AMBULATORY - MEDICINE [facility] [place] [facility] Apr 30, 2024 01:40 PM AMBULATORY - NONE [facility] [place] [facility] Social History: Smoking Status (Most current) and [...] place. Date/Time Current Smoking Status Comment Ginger fortuney Jul 21, 2023 01:30 PM VA-TOBACCO FORMER USER [facility] Tobacco Use History This section includes a history of the smoking, or tobacco-related health factors, that were collected on or before the date of the Encounter. The data comes from the [place] facility where the Encounter took place. Date/Time Smoking Status/Tobacco Use Comment Wilberto holbrook Jul 21, 2023 01:30 PM VA-TOBACCO QUIT 15 YRS OR [facility] Mar 28, 2021 03:28 PM [facility]AC[facility] Mar 28, 2021 03:28 PM VA-TOBACCO QUIT [facility] Dec 02, 2019 09:36 AM VA-TOBACCO NEVER USED [facility] Apr 23, 2005 10:19 AM QUIT TOBACCO USE IN PAST YEAR [facility] Advance Directives: All historical and [...] 16, 2011 ADVANCE DIRECTIVE DISCUSSION MARGARITA TERRAZAS [place] Encounter Notes: All associated encounter notes This section contains the clinical notes associated to the Encounter. Date/Time Encounter Note(s) Provider Source Nov 10, 2023 02:21 PM PODIATRY SECURE ME SSAGING: [facility] TITLE: PODIATRY SECURE MESSAGING STANDARD TITLE: PODIATRY SECURE MESSAGING DATE OF NOTE: NOV 10, 2023@14:21 ENTRY DATE: NOV 10, 2023@15:21:48 AUTHOR: NAVEEN WITT EXP COSIGNER: URGENCY: STATUS: COMPLETED PODIATRY SECURE MESSAGING Has ADDENDA ------Original Message Sent: 11/10/2023 01:19 PM ET From: ANDREEA OVIEDO To: PODIATRY_SOPC@ Subject: General:Delivery this morning Again, many many thanks to you and Marni for the outstanding support, therapy and kindness throughout my time with both of you. So often we vets have had to fight for care, but such is not the case with you. I am very much aware that I am/can be a difficult read, I've never ever made a good communication patient and I apologize had I been so for you both. Thank you for being the 'good guys', I was most fortunate to have the compass lead me to your door. In my opinion you deserve much more than a cheesecake. /lisa/ NAVEEN WITT HEALTH MESS ATTENDANT CREW Signed: 11/10/2023 15:21 Receipt Acknowledged By: 11/10/2023 15:54 /lisa/ MARNI JUSTICE OCCUPATIONAL THERAPY STUDENT 11/10/2023 ADDENDUM STATUS: COMPLETED I belive this was ment for pt. /lisa/ NAVEEN WITT HEALTH MESS ATTENDANT CREW Signed: 11/10/2023 15:22 NAVEEN WITT [place]
--- OUTSIDE RECORDS SUMMARY | 2024-05-10 07:28 | XMS_ITS | Encounter Summary ---
Author Name [place] Organization [place] Address [address] [place] [address] Care Team Providers Care Building Materials Sales Attendant Name Role Phone CHITO SEGURA Primary Care [...] PART A Feb 16, 2018 PART A [id number] YENNY OVIEDO PATIENT MEDICARE (WNR) MEDICARE (M) PART B Feb 16, 2018 PART B [id number] [id number] YENNY OVIEDO PATIENT MEDICARE (WNR) MEDICARE (M) PART A Oct 17, 2006 PART A [id number] [facility] YENNY OVIEDO PATIENT FOR LIFE TFL* Apr 06, 2018 [id number] YENNY OVIEDO PATIENT Selected Encounter This section includes the information on record at [place] for the Encounter. Date/Time Encounter Type Encounter Description Reason Pro vider Source Nov 12, 2023 10:00 AM Outpatient Encounter DENTAL IHE Encounter Template Text not used by [place] Plan of Treatment: Future Appointments (+ 6 months) and Future Tests (+/- 45 days) The Plan of Treatment section includes future care activities for the patient from all [place] [facility]. This section includes future appointments and [...] AMBULATORY - NONE [facility] [place] [facility] Nov 27, 2023 07:15 AM AMBULATORY - NONE [facility] [place] [facility] Nov 27, 2023 07:45 AM AMBULATORY - NONE [facility] [place] [facility] Dec 01, 2023 08:00 AM AMBULATORY - MEDICINE [facility] Jan 12, 2024 11:25 AM AMBULATORY - MEDICINE [facility] [place] [facility] Jan 12, 2024 11:40 AM AMBULATORY - MEDICINE [facility] [place] [facility] Jan 22, 2024 01:00 PM AMBULATORY - MEDICINE [facility] [place] [facility] Jan 29, 2024 08:45 AM AMBULATORY - MEDICINE [facility] [place] [facility] Feb 16, 2024 08:00 AM AMBULATORY - MEDICINE [facility] Feb 17, 2024 07:30 AM AMBULATORY - NONE [facility] [place] [facility] Mar 16, 2024 09:30 AM AMBULATORY - NONE [facility] [place] [facility] Mar 30, 2024 07:30 AM AMBULATORY - MEDICINE [facility] [place] [facility] Apr 06, 2024 09:00 AM AMBULATORY - MEDICINE [facility] Apr 12, 2024 08:00 AM AMBULATORY - MEDICINE [facility] Apr 12, 2024 11:00 AM AMBULATORY - MEDICINE [facility] [place] [facility] Apr 12, 2024 01:30 PM AMBULATORY - MEDICINE [facility] [place] [facility] Apr 30, 2024 01:40 PM AMBULATORY - NONE [facility] [facility] Social History: Smoking Status (Most [...] 21, 2023 01:30 PM [facility]-TOBACCO [facility] Tobacco Use History This section includes a history of the smoking, or tobacco-related health factors, that were collected on or before the date of the Encounter. The data comes from the [place] facility where the Encounter took place. Date/Time Smoking Status/Tobacco Use Comment F acility Jul 21, 2023 01:30 PM VA-TOBACCO QUIT 15 YRS OR MORE [facility] Mar 28, 2021 03:28 PM VA-TOBACCO FORMER USER [place] [facility] [place] [facility] Mar 28, 2021 03:28 PM VA-TOBACCO QUIT 15 YRS OR MORE [place] [facility] [place] [facility] Dec 02, 2019 09:36 AM VA-TOBACCO NEVER USED [facility] [place] [facility] Apr 23, 2005 10:19 AM QUIT TOBACCO USE IN PAST YEAR [facility] Advance Directives: All historical and current [...]
--- OUTSIDE RECORDS SUMMARY | 2024-05-10 07:28 | XMS_ITS | Encounter Summary ---
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 Address [address] [place] [address] Care Team Providers Care Track Welder Name Role Phone CHITO SEGURA Primary Care [...] PART A Feb 16, 2018 PART A [id number] YENNY OVIEDO PATIENT MEDICARE (WNR) MEDICARE (M) PART B Feb 16, 2018 PART B [id number] [id number] YENNY OVIEDO ES PATIENT MEDICARE (WNR) MEDICARE (M) PART A Oct 17, 2006 PART A [id number] [facility] YENNY OVIEDO PATIENT FOR LIFE TFL* Apr 06, 2018 [id number] YENNY OVIEDO PATIENT Selected Encounter This section includes the information on record at [place] for the Encounter. Date/Time Encounter Type Encounter Description Reason Provider Source Nov 18, 2023 11:00 AM INTRAORAL PERIAPICAL FIRST DENTAL ICD-10-CM K03.81 Cracked tooth BRANDI SEXTON [facility] Encounter Template Text not used by [place] Assessments - Encounter Diagnoses This section includes the primary and secondary diagnoses documented for the Encounter. Date/Time Primary/Secondary Diagnosis Diagnosis Name Provider Source Nov 18, 2023 02:55 PM PRIMARY Cracked tooth BRANDI SEXTON [place] [facility] [place] [facility] Plan of Treatment: Future Appointments (+ 6 months) and Future Tests (+/- 45 days) The Plan of Treatment section includes future care activities for the patient from all [place] treatmentfacilities. This section includes future appointments and [...] AMBULATORY - NONE [facility] [facility] Nov 27, 2023 07:45 AM AMBULATORY - NONE [facility] [place] [facility] Dec 01, 2023 08:00 AM AMBULATORY - MEDICINE [facility] Jan 12, 2024 11:25 AM AMBULATORY - MEDICINE [facility] [place] [facility] Jan 12, 2024 11:40 AM AMBULATORY - MEDICINE [facility] [place] [facility] Jan 22, 2024 01:00 PM AMBULATORY - MEDICINE [facility] [place] [facility] Jan 29, 2024 08:45 AM AMBULATORY - MEDICINE [facility] [place] [facility] Feb 16, 2024 08:00 AM AMBULATORY - MEDICINE [facility] Feb 17, 2024 07:30 AM AMBULATORY - NONE [facility] [place] [facility] Mar 16, 2024 09:30 AM AMBULATORY - NONE [facility] [place] [facility] Mar 30, 2024 07:30 AM AMBULATORY - MEDICINE [facility] [place] [facility] Apr 06, 2024 09:00 AM AMBULATORY - MEDICINE [facility] Apr 12, 2024 08:00 AM AMBULATORY - MEDICINE [facility] Apr 12, 2024 11:00 AM AMBULATORY - MEDICINE [facility] [place] [facility] Apr 12, 2024 01:30 PM [facility] Apr 30, 2024 01:40 PM [facility]ORY - NONE [facility] Vital Signs: All taken on the encounter date This section contains inpatient and outpatient Vital Signs collected on the date of the Encounter. Date/Time Temperature Pulse Blood Pressure Respiratory Rate SP02 Pain Height Weight Body Mass Index Source Nov 18, 2023 11:14 AM 69 145/90 96 [facility] Social History: Smoking Status (Most current) and [...] PM VA-TOBACCO QUIT 15 YRS OR MORE [facility] Tobacco Use History This section includes a history of the smoking, or tobacco-related health factors, that were collected on or before the date of the Encounter. The data comes from the [place] facility where the Encounter took place. Date/Time Smoking Status/Tobacco Use Comment F acility Jul 21, 2023 01:30 PM VA-TOBACCO QUIT 15 YRS OR MORE [place] [facility] Mar 28, 2021 03:28 PM VA-TOBACCO FOR[facility] Mar 28, 2021 03:28 PM VA-TOBACCO QUIT 15 YRS OR MORE [place] [facility] Dec 02, 2019 09:36 AM VA-TOBACCO NEVER USED [facility] Apr 23, 2005 10:19 AM QUIT TOBACCO USE IN PAST YEAR [facility] Advance Directives: All historical and current Section Date Range: From patient's date of to the date document was created. This section includes ALL of a patient's completed or amended [place] Advance and Rescinded Directives. The entries below indicate that a directive exists for the patient, but an actual copy is not included with this document. The data comes from all [place] facilities. Date Advance Directives Provider Source Dec 16, 2011 ADVANCE DIRECTIVE DISCUSSION MARGARITA TERRAZAS [place] Encounter Notes: All associated encounter notes This section contains the clinical notes associated to the Encounter. Date/Time Encounter Note(s) Provider Source Nov 18, 2023 02:55 PM DENTISTRY CONSULT: LOCAL TITLE: CONSULT REPORT/DENTAL STANDARD TITLE: DENTISTRY CONSULT DATE OF NOTE: NOV 18, 2023@14:55 ENTRY DATE: NOV 18, 2023@14:55:25 AUTHOR: BRANDI SEXTON EXP COSIGNER: URGENCY: STATUS: COMPLETED Please refer to dental note. /lisa/ BRANDI SEXTON DMD Staff Dentist Signed: 11/18/2023 14:55 BRANDI SEXTON [place] [facility] [facility] Nov 18, 2023 02:53 PM DENTISTRY NOTE: LOCAL TITLE: DENTAL NOTE STANDARD TITLE: DENTISTRY NOTE DATE OF NOTE: NOV 18, 2023@14:53 ENTRY DATE: NOV 18, 2023@14:55:13 AUTHOR: BRANDI SEXTON EXP COSIGNER: URGENCY: STATUS: COMPLETED Patient Name: ANDREEA OVIEDO, : 1955, Age: 68 Visit: S: Nov 18, 2023@11:00 [facility] DENTAL DMD 1. Primary PCE Diagnosis: K03.81 (Cracked tooth). Dental Category: 15-OPC, Class IV. Treatment Status: Maintenance. Completed Care: (D0140) LIMIT ORAL EVAL PROBLM FOCUS. DX: K03.81 Cracked Tooth (D0220) INTRAORAL PERIAPICAL FIRST. Tooth: 31. DX: K03.81 Cracked Tooth Presentation/Chief Complaint: Patient presented to dental clinic for limited oral evaluation Spontaneous pain and severe pain on biting on lower right back tooth (points to #31) since beginning of October. Time out performed. Used full name and date Vital Signs: Dental Pain (0-10): 2. 7 on biting. 11/18/2023 11:14 Blood Pressure (mmHg): 145/90 11/18/2023 11:14 Pulse (BPM): 69 11/18/2023 11:14 7 on biting 11/18/2023 11:14 Reviewed medical history. Medications and allergies were reviewed and reconciled within scope of dental service. Dental Alerts: Had heart valve replacement on Apr 30, 2017. [facility] Cardiac Surgery requires premedication one hour before dental procedures. 500 mg Azithromycin per current AHA guidelines. In the past he premedicated with 600 mg Clindamycin. Patient reported taking 500 mg of Azithromycin approximately an hour before this dental appointment. Oral Examination: Oral cancer screening - no apparent pathology noted at this visit. Dental Examination: Missing Teeth: 1, 4, 12, 16, 17, 18, 19, 29, 30, 32. Endodontically Treated: 31(dm) Wilbert Percha. Tooth #31 - sensitive on percussion. Radiolucency at furcation, crack line. No swelling. Assessment/Plan: Fracture in endodontically-treated tooth #31. Plan: Referral to oral surgeon for extraction of tooth #31. Referring to treating dentist for further treatment planning Final treatment plan to be completed at a later time Planned Procedures: Unsequenced (D0120) PERIODIC ORAL EVAL EST: . DX: (). Phase 1 (D7210) SURG REM ERUPTED TOOTH: 31. DX: (). Sequencing Notes: 11/18/2023: Referring to [facility] for extraction of tooth #31. Reviewed findings, risks/benefits/alternative s associated with the proposed treatment plan. Patient indicated understanding and agreed to treatment plan as discussed. Answered all questions. Advised him to call if he has any concerns. Disposition: Next dental visit: Has upcoming appointment for hygiene recare and periodic oral evaluation Patient to return to dental clinic for continuing care. - - - - - - - - - - - - - - - - - - - - - - - - - - - - - - /lisa/ BRANDI SEXTON DMD Staff Dentist Signed: 11/18/2023 14:55 BRANDI SEXTON [place] [facility] [place] [facility]
--- OUTSIDE RECORDS SUMMARY | 2024-05-10 07:29 | XMS_ITS ---
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 Address [address] [place] [id number] Care Team Providers Care Manager Reimbursement Name Role Phone CHITO SEGURA Primary Care [...] PART A Feb 16, 2018 PART A [id number] YENNY OVIEDO PATIENT MEDICARE (WNR) MEDICARE (M) PART B Feb 16, 2018 PART B [id number] YENNY OVIEDO ANDREW PATIENT MEDICARE (WNR) MEDICARE (M) PART A Oct 17, 2006 PART A [id number] [facility] YENNY OVIEDO PATIENT FOR LIFE TFL* Apr 06, 2018 [id number] YENNY OVIEDO PATIENT Selected Encounter This section includes the information on record at [place] for the Encounter. Date/Time Encounter Type Encounter Description Reason Provider Source Nov 27, 2023 07:45 AM DENTAL BITEWING FOUR IMAGES DENTAL ICD-10-CM K03.6 Deposits [accretions] on teeth HOHREITER,VINC ENT IHE Encounter Template Text not used by [place] Assessments - Encounter Diagnoses This section includes the primary and secondary diagnoses documented for the Encounter. Date/Time Primary/Secondary Diagnosis Diagnosis Name Provider Source Nov 27, 2023 10:18 AM PRIMARY Deposits [accretions] on teeth HOHREITER,VINC ENT [place] [facility] [place] [facility] Plan of Treatment: Future Appointments (+ 6 months) and Future Tests (+/- 45 days) The Plan of Treatment section includes future care activities for the patient from all [place] [facility] This section includes future appointments and future orders which are active, pending or scheduled. Future Appointments This section includes appointments that were scheduled to occur 6 months from the date of the Encounter, up to a maximum of 20 appointments. The data comes from all [place] treatment facilities. Appointment Date/Time Appointment Type Appointme nt Facility Name Dec 01, 2023 08:00 AM AMBULATORY - MEDICINE [facility] Jan 12, 2024 11:25 AM AMBULATORY - MEDICINE [facility] [place] [facility] Jan 12, 2024 11:40 AM AM[place]UL[place]ORY [place]IC[place] [facility] [place] [facility] Jan 22, 2024 01:00 PM AMBULATORY - MEDICINE [facility] [place] [facility] Jan 29, 2024 08:45 AM AMBULATORY - MEDICINE [facility] [place] [facility] Feb 16, 2024 08:00 AM AMBULATORY - MEDICINE [facility] Feb 17, 2024 07:30 AM AMBULATORY - NONE [facility] [place] [facility] Mar 16, 2024 09:30 AM AMBULATORY - NONE [facility] [place] [facility] Mar 30, 2024 07:30 AM AMBULATORY - MEDICINE [facility] [place] [facility] Apr 06, 2024 09:00 AM AMBULATORY - MEDICINE [facility] Apr 12, 2024 08:00 AM AMBULATORY - MEDICINE [facility] Apr 12, 2024 11:00 AM AMBULATORY - MEDICINE [facility] [place] [facility] Apr 12, 2024 01:30 PM AMBULATORY - MEDICINE [facility] [place] [facility] Apr 30, 2024 01:40 PM AMBULATORY - NONE [place] [facility] [place] [facility] May 28, 2024 08:30 AM [facility] [place] [facility] Social History: Smoking Status (Most current) and Tobacco Use (All prior to encounter date) This section includes the most current, and the historical, smoking and tobacco- related health factors from the [place] facility where the Encounter took place. Current Smoking Status This section includes the most current smoking, or tobacco-related health factor, from the [place] facility where the Encounter took place. Date/Time Current Smoking Status Comment Facil ity Jul 21, 2023 01:30 PM [facility] Tobacco Use History This section includes a history of the smoking, or tobacco-related health factors, that were collected on or before the date of the Encounter. The data comes from the [place] facility where the Encounter took place. Date/Time Smoking Status/Tobacco Use Comment F acility Jul 21, 2023 01:30 PM VA-TOBACCO QUIT 15 YRS OR MORE [place] [facility] [place] [facility] Mar 28, 2021 03:28 PM VA-TOBACCO FORMER USER [place] [facility] [place] [facility] Mar 28, 2021 03:28 PM VA-TOBACCO QUIT 15 YRS OR MORE [place] [facility] [place] [facility] Dec 02, 2019 09:36 AM VA-TOBACCO NEVER USED [place] [facility] [place] [facility] Apr 23, 2005 10:19 AM [facility] Advance Directives: All historical and current Section Date Range: From patient's date of to the date document was created. This section includes ALL of a patient's completed or amended [place] Advance and Rescinded Directives. The entries below indicate that a directive exists for the patient, but an actual copy is not included with this document. The data comes from all [place] facilities. Date Advance Directives Provider Source Dec 16, 2011 ADVANCE DIRECTIVE DISCUSSION MARGARITA TERRAZAS STATELINE Encounter Notes: All associated encounter notes This section contains the clinical notes associated to the Encounter. Date/Time Encounter Note(s) Provider Source Nov 27, 2023 10:19 AM DENTISTRY CONSULT: LOCAL TITLE: CONSULT REPORT/DENTAL STANDARD TITLE: DENTISTRY CONSULT DATE OF NOTE: NOV 27, 2023@10:19 ENTRY DATE: NOV 27, 2023@10:19:37 AUTHOR: VIKI KELLEY EXP COSIGNER: URGENCY: STATUS: COMPLETED Closing imaging consult /es/ VIKI KELLEY DMD DENTIST Signed: 11/27/2023 10:20 VIKI KELLEY [facility] Nov 27, 2023 10:16 AM DENTISTRY NOTE: LOCAL TITLE: DENTAL NOTE STANDARD TITLE: DENTISTRY NOTE DATE OF NOTE: NOV 27, 2023@10:16 ENTRY DATE: NOV 27, 2023@10:18:54 AUTHOR: VIKI KELLEY EXP COSIGNER: URGENCY: STATUS: COMPLETED Patient Name: ANDREEA OVIEDO, : 1955, Age: 68 Visit: V: Nov 27, 2023@07:45 [facility] DENTAL DMD 2. Primary PCE Diagnosis: K03.6 (DEPOSITS [ACCRETIONS] ON TEETH). Dental Category: 15-OPC, Class IV. Treatment Status: Maintenance. Completed Care: (D0120) PERIODIC ORAL EVAL EST. DX: K03.6 Deposits [Accretions] on Teeth (D0274) DENTAL BITEWING FOUR IMAGES. DX: K03.6 Deposits [Accretions] on Teeth Presentation/Chief Complaint: Patient presents for periodic oral evaluation Patient has no dental complaints Vital Signs: Dental Pain (0-10): 3 Past Medical History and Medications: No significant changes since the last dental visit Active Problems: Exposure to potentially hazardous substance ([facility] [id number]) Palpitations ([facility] [id number]) SAS - Sleep apnea syndrome ([facility] [id number]) COPD - Chronic Obstructive Pulmonary Disease ([facility] [id number]) Gastroesophageal reflux disease ([facility] [id number]) Benign localized hyperplasia of prostate ([facility] [id number]) Deficiency of vitamin D3 ([facility] [id number]) Thrombocytopenia ([facility] 503161018) Diabetes mellitus type 2 ([facility] [id number]) Disorder of rotator cuff ([facility] [id number]) Lumbar Radiculopathy (ICD-9-CM 724.4) Diverticulitis, Colonic (ICD-9-CM 562.11) Gastroesophageal Reflux Disorder (ICD-9-CM 530.81) Degenerative arthritis ([facility] 710999399) Mitral Valve Prolapse (ICD-9-CM 424.0) Hyperlipidaemia ([facility] 25461276) Benign essential hypertension ([facility] 6782645) Obesity (ICD-9-CM 278.00) Posttraumatic Stress Disorder (EC) (ICD-9-CM 309.81) Panic Attacks (EC) (ICD-9-CM 300.01) Active Medications: Medication reconciliation performed within the scope of dental. FLUTICASONE PROP 50MCG 120D NASAL INHL - (ACTIVE) OMEPRAZOLE 20MG EC CAP - (ACTIVE) WATER STERILE FOR IRRIGATION - (ACTIVE) METFORMIN HCL 750MG 24HR SA TAB - (ACTIVE) MICONAZOLE NITRATE 2% TOP PWDR - (ACTIVE) SEMAGLUTIDE 1MG/0.75ML INJ PEN 3ML - (ACTIVE) TRIAMCINOLONE ACETONIDE 0.1% CREAM - (ACTIVE) DILTIAZEM (EQV-CARDIZEM) 180MG 24HR CAP - (ACTIVE) ACCU-CHEK GUIDE (GLUCOSE) TEST STRIP - (ACTIVE) ASPIRIN 81MG EC TAB - (ACTIVE) DICLOFENAC 1% GEL (EQV-VOLTAREN) GEL,TOP - (ACTIVE) CHOLECALCIF 25MCG (D3-1,000UNIT) TAB - (ACTIVE) OTHER CAP/TAB - (ACTIVE) SAW PALMETTO CAP/TAB - (ACTIVE) TOLTERODINE TARTRATE 2MG SA CAP - (ACTIVE) Intraoral and Extraoral Screening Exam Findings: 11/27/2023 Head and neck assessment with oral cancer screening is negative: no apparent pathology noted. Oral Examination: Oral Health Assessment Findings: Create Date: 11/27/2023 - [facility] Plaque Index: 1 - Slight Xerostomia: 0 - None Caries Risk: 2 - Moderate Oral Hygiene: 2 - Fair Dentition exhibits no apparent evidence of dental pathology at this visit No Significant Tooth Mobility Noted Periodontal Screening/Recording (PSR): 3-2-3 - - - 3-2-3 Periodontal Assessment: Good Periodontal Health Assessment/Plan: No contraindications for planned procedure(s) Planned Procedures: (D2330) RESIN ONE SURFACE-ANTERIOR: 6(F). DX: (). (D5422) DENTURES ADJUST PART MANDBL: . DX: (). (D7210) SURG REM ERUPTED TOOTH: 31. DX: (). Reviewed risks/benefits/alternatives associated with the proposed treatment plan. Patient agrees to treatment plan as discussed. Disposition: Next visit: Adjust Partial after Ext #31 + 6F abrasion restore Patient to return to dental clinic for continuing care. - - - - - - - - - - - - - - - - - - - - - - - - - - - - - - /andrew/ VIKI KELLEY DMD DENTIST Signed: 11/27/2023 10:18 VIKI KELLEY [facility]
--- OUTSIDE RECORDS SUMMARY | 2024-05-10 07:29 | XMS_ITS | Encounter Summary ---
Author Name [facility] [place] Address [address] [place] [id number] Care Team Providers Care Finger Lift Operator Name Role Phone CHITO SEGURA Primary [...] PART A Feb 16, 2018 PART A [id number] YENNY OVIEDO PATIENT MEDICARE (WNR) MEDICARE (M) PART B Feb 16, 2018 PART B [id number] YENNY OVIEDO PATIENT MEDICARE (WNR) MEDICARE (M) PART A Oct 17, 2006 PART A [id number] [facility] [phone] YENNY OVIEDO PATIENT FOR LIFE TFL* Apr 06, 2018 [id number] YENNY OVIEDO PATIENT Selected Encounter This section includes the information on record at [place] for the Encounter. Date/Time Encounter Type Encounter Description Reason Pro vider Source Nov 26, 2023 08:41 AM Outpatient Encounter DENTAL IHE Encounter Template Text not used by [place] Plan of Treatment: Future Appointments (+ 6 months) and Future Tests (+/- 45 days) The Plan of Treatment section includes future care activities for the patient [facility] all [place] [facility] This section includes future appointments [...] - NONE [facility] [place] [facility] Nov 27, 2023 07:45 AM AMBULATORY - NONE [facility] [place] [facility] Dec 01, 2023 08:00 AM AMBULATORY - MEDICINE [facility] Jan 12, 2024 11:25 AM AMBULATORY - MEDICINE [facility] [place] [facility] Jan 12, 2024 11:40 AM AMBULATORY - MEDICINE [facility] [place] [facility] Jan 22, 2024 01:00 PM AMBULATORY - MEDICINE [facility] [place] [facility] Jan 29, 2024 08:45 AM AMBULATORY - MEDICINE [facility] [place] [facility] Feb 16, 2024 08:00 AM AMBULATORY - MEDICINE [facility] Feb 17, 2024 07:30 AM AMBULATORY - NONE [facility] [place] [facility] Mar 16, 2024 09:30 AM AMBULATORY - NONE [facility] [place] [facility] Mar 30, 2024 07:30 AM AMBULATORY - MEDICINE [facility] [place] [facility] Apr 06, 2024 09:00 [facility] Apr 12[facility] 2024 08:00 [facility] Apr 12, 2024 11:00 AM AMBULATORY - MEDICINE [facility] [place] [facility] Apr 12, 2024 01:30 PM AMBULATORY - MEDICINE [facility] [place] [facility] Apr 30, 2024 01:40 PM AMBULATORY - NONE [facility] [place] [facility] May 28, 2024 08:30 AM AMBULATORY - MEDICINE [facility] [place] [facility] Social History: Smoking Status (Most current) [...] place. Date/Time Smoking Status/Tobacco Use Comment Wilberto acsophia Jul 21, 2023 01:30 PM VA-TOBACCO QUIT 15 YRS OR MORE [facility] Mar 28, 2021 03:28 PM [facility] Mar 28, 2021 03:28 PM VA-TOBACCO QUIT [facility] YRS OR [facility] Dec 02, 2019 09:36 AM VA-TOBACCO NEVER USED [facility] [place] [facility] Apr 23, 2005 10:19 AM QUIT TOBACCO USE [facility]ST [facility] Advance Directives: All historical and current Section Date Range: From patient's date of to the date document was created. This section includes ALL of a patient's completed or amended [place] Advance and Rescinded Directives. The entries below [...] Encounter. Date/Time Encounter Note(s) Provider Source Nov 26, 2023 08:41 AM DENTISTRY TELEPHON E ENCOUNTER NOTE: LOCAL TITLE: TELEPHONE NOTE/DENTAL STANDARD TITLE: DENTISTRY TELEPHONE ENCOUNTER NOTE DATE OF NOTE: NOV 26, 2023@08:41 ENTRY DATE: NOV 26, 2023@08:41:14 AUTHOR: SOSA ESTEBAN EXP COSIGNER: URGENCY: STATUS: COMPLETED Spoke with pt to confirm dental appointment on 11/27/2023 at 7:15 /lisa/ SOSA ESTEBAN ADVANCED ELECTROPHYSIOLOGIST Signed: 11/26/2023 08:42 SOSA ESTEBANL [facility]
--- OUTSIDE RECORDS SUMMARY | 2024-05-10 07:29 | XMS_ITS ---
Author Name [facility] [place] [place] Organization [facility] [place] Address [address] [place] [id number] Care Team Providers Care Auto Research Engineer Name Role Phone CHITO MEDRANO Primary Care [...] PART A Feb 16, 2018 PART A [id number] [phone] YENNY OVIEDO ES PATIENT MEDICARE (WNR) MEDICARE (M) PART B Feb 16, 2018 PART B [id number] YENNY OVIEDO ES PATIENT MEDICARE (WNR) MEDICARE (M) PART A Oct 17, 2006 PART A [id number] [facility] YENNY OVIEDO PATIENT FOR LIFE TFL* Apr 06, 2018 [id number] YENNY OVIEDO PATIENT Selected Encounter This section includes the information on record at [place] for the Encounter. Date/Time Encounter Type Encounter Description Reason Provider Source Jan 22, 2024 01:00 PM OFFICE O/P EST LOW 20 MIN PRIMARY CARE/MEDICINE ICD-10-CM R00.2 Palpitations ELIEL MEDRANO LIZA F IHE Encounter Template Text not used by [place] Assessments - Encounter Diagnoses This section includes the primary and secondary diagnoses documented for the Encounter. Date/Time Primary/Secondary Diagnosis Diagnosis Name Provider Source Jan 22, 2024 01:28 PM PRIMARY Palpitations AYUSH MEDRANO ARTEM F [place] [facility] [place] [facility] Plan of Treatment: Future Appointments (+ 6 months) and Future Tests (+/- 45 days) The Plan of Treatment section includes future care activities for the patient from all [place] [facility]. This section includes future appointments and future orders which are active, pending or scheduled. Future Appointments This section includes appointments that were scheduled to occur 6 months from the date of the Encounter, up to a maximum of 20 appointments. The data comes from all [place] treatment facilities. Appointment Date/Time Appointment Type Appointme nt Facility Name Jan 29, 2024 08:45 AM AMBULATORY - MEDICINE [place] [facility] [place] [facility] Feb 16, 2024 08:00 AM [facility] Feb 17, 2024 07:30 AM AMBULATORY - NONE [facility] [place] [facility] Mar 16, 2024 09:30 AM AMBULATORY - NONE [facility] [place] [facility] Mar 30, 2024 07:30 AM AMBULATORY - MEDICINE [facility] [place] [place] [facility] Apr 06, 2024 09:00 AM AMBULATORY - MEDICINE [facility] Apr 12, 2024 08:00 AM AMBULATORY - MEDICINE [facility] Apr 12, 2024 11:00 AM AMBULATORY - MEDICINE [facility] [place] [place] [facility] Apr 12, 2024 01:30 PM AMBULATORY - MEDICINE [facility] [place] [facility] Apr 30, 2024 01:40 PM AMBULATORY - NONE [facility] [place] [facility] May 28, 2024 08:30 AM AMBULATORY - MEDICINE [facility] [place] [facility] May 31, 2024 11:00 AM AMBULATORY - MEDICINE [facility] [place] [facility] Jun 01, 2024 07:30 AM AMBULATORY - NONE [facility] [facility] Jun 28, 2024 08:00 AM AMBULATORY - MEDICINE [facility] Lab Results: +/- 30 days [...] Range Comment Jan 05, 2024 07:32 AM [facility] LIVER FUNCTION Specimen Type: SERUM No comment entered. Ordering Provider: AYUSH MEDRANO F Report Released Date/Time: Jul 21, 2023 02:25 PM Reporting Lab: [address] [address] Performing Lab: [address] [address] PROTEIN,TOTAL 6.3 g/dL 6.0-8.3 ALBUMIN 3.6 g/dL 3.5-5.0 ALKALINE PHOSPHATASE 39 U/L L 40-150 AST 13 U/L 5-34 ALT 15 U/L BILIRUBIN, TOTAL 1.0 mg/dL 0.2-1.2 Jan 05, 2024 07:32 AM [facility] BASIC METABOLIC PANEL (fasting) Specimen Type: SERUM No comment entered. Ordering Provider: AYUSH MEDRANO F Report Released Date/Time: Jul 21, 2023 02:25 PM Reporting Lab: [address] [address] Performing Lab: [address] [address] UREA NITROGEN 21 mg/dL 7-25 GLUCOSE 126 mg/dL H 65-100 SODIUM 139 mmol/L 135-145 POTASSIUM 3.9 mmol/L 3.5-5.0 CHLORIDE 107 mmol/L 100-110 CO2 22 meq/L 20-30 CREATININE, Serum 0.68 mg/dL 0.50-1.40 eGFR(CKD-EPI 2020) >90 mL/min >60 Jan 05, 2024 07:32 AM [facility] LIPID PANEL FASTING Specimen Type: SERUM No comment entered. Ordering Provider: AYUSH MEDRANO F Report Released Date/Time: Jul 21, 2023 02:25 PM Reporting Lab: [facility] [address] [facility] [address] Performing Lab: [facility] [address] [facility] [address] CHOLESTEROL 116 mg/dL TRIGLYCERIDE 73 mg/dL 0-150 LDL calculated 62 mg/dL 0-129 CHOL/HDL 3.0 HDL CHOLESTEROL 39 mg/dL L 40-60 Jan 05, 2024 07:32 AM [facility] MICROALBUMIN CREATININE RATIO PANEL Specimen Type: URINE No comment entered. Ordering Provider: AYUSH MEDRANO F Report Released Date/Time: Jul 21, 2023 02:25 PM Reporting Lab: [address] [address] Performing Lab: [address] [address] MICROALBUMIN/C REATININE RATIO 45.9 mg/g H 0-29.9 MICROALBUMIN,Q UANTITATIVE 5.0 mg/dL RR UNAVAIL CREATININE URINE 108.91 mg/dL Jan 05, 2024 07:32 AM [facility] PSA Specimen Type: SERUM No comment entered. Ordering Provider: AYUSH MEDRANO F Report Released Date/Time: Jul 21, 2023 02:25 PM Reporting Lab: [facility] [address] [facility] [address] Performing Lab: [address] [address] PSA < 0.10 ng/mL 0.00-4.00 Jan 05, 2024 07:32 AM [facility] HEMOGLOBIN A1C PANEL Specimen Type: BLOOD Comment: Values obtained from A1C measurements can vary. For atypical A1C assays, a reported value of 7.0 could actually be between 6.72 and 7.28 if measured by a reference method. A reported value of 9.0 could actually be between 8.73 and 9.27. Ref: http://www.ngs p.org/CAPdata. asp Ordering Provider: AYUSH MEDRANO Report Released Date/Time: Jul 21, 2023 02:25 PM Reporting Lab: [address] [address] Performing Lab: [address] [address] HEMOGLOBIN A1C 6.1 H 4.0-5.6 Jan 05, 2024 07:32 AM [facility] URINALYSIS Specimen Type: URINE Comment: If Glucose = >500 and Ketones are positive, please alert the Physician. Ordering Provider: AYUSH MEDRANO Report Released Date/Time: Jul 21, 2023 02:25 PM Reporting Lab: [address] [address] Performing Lab: [address] [address] UA COLOR Yellow Yellow UA APPEARANCE Clear Clear UA GLUCOSE Normal mg/dL Negative UA KETONES NEGATIVE mg/dL Negative UA BLOOD NEGATIVE mg/dL Negative UA PROTEIN 10 mg/dL Negative UA NITRITE NEGATIVE mg/dL Negative UA BILIRUBIN NEGATIVE mg/dL Negative UA SPECIFIC GRAVITY 1.027 H 1.016-1.02 2 UA pH 5.5 5.0-9.0 UA UROBILINOGEN Normal mg/dL <2.0 UA LEUKOCYTE NEGATIVE Negative Vital Signs: All taken on the encounter date This section contains inpatient and outpatient Vital Signs collected on the date of the Encounter. Date/Time Temperature Pulse Blood Pressure Respiratory Rate SP02 Pain Height Weight Body Mass Index Source Jan 22, 2024 01:00 PM 98.7 56 130/80 16 96 3 220 32 [facility] Social History: Smoking Status (Most current) and [...] 21, 2023 01:30 PM VA-TOBACCO [facility] Tobacco Use History This section includes a history of the smoking, or tobacco-related health factors, that were collected on or before the date of the Encounter. The data comes from the [place] facility where the Encounter took place. Date/Time Smoking Status/Tobacco Use Comment F yusef Jul 21, 2023 01:30 PM [facility]-TO[facility]ACCO QUIT 15 YRS [facility] Mar 28, 2021 03:28 PM VA-TOBACCO FORMER USER [place] [facility] [place] [facility] Mar 28, 2021 03:28 PM VA-TOBACCO QUIT 15 YRS OR MORE [facility] Dec 02, 2019 09:36 AM VA-TOBACCO NEVER USED [facility] Apr 23, 2005 10:19 AM QUIT TOBACCO USE IN PAST YEAR [facility] Advance Directives: All historical and current Section [...] 16, 2011 ADVANCE DIRECTIVE DISCUSSION [facility] Encounter Notes: All associated encounter notes This section contains the clinical notes associated to the Encounter. Date/Time Encounter Note(s) Provider Source Jan 22, 2024 01:25 PM PHYSICIAN E LEARNING MANAGER NOTE: LOCAL TITLE: DINO NOTE STANDARD TITLE: PHYSICIAN E LEARNING MANAGER NOTE DATE OF NOTE: JAN 22, 2024@13:25 ENTRY DATE: JAN 22, 2024@13:25:46 AUTHOR: CHITO MEDRANO COSIGNER: URGENCY: STATUS: COMPLETED DINO NOTE Has ADDENDA CC/HPI/A/P: 68 year old MALE here in follow-up for; New A flutter, still loading amiodarone via Kofi Atkinson and Kassie, declines an order here for now. Fills me in on other med changes, which I apply to chart Cardioversion pending in about two weeks. he brings recent cardio records. f/u 4 months. Review of systems: Patient reports no changes from [facility], in meds or any admissions. Active problems - Computerized Problem List is the source for the followin. Exposure to potentially hazardous substance ([facility] [id number]) Entered automatically through [employer] Problem List documentation program 2. Palpitations 3. SAS - Sleep apnea syndrome 4. COPD - Chronic Obstructive Pulmonary Disease (SCT 38660744) 5. Gastroesophageal reflux disease 6. Benign localized hyperplasia of prostate 7. Deficiency of vitamin D3 8. Thrombocytopenia 9. Diabetes mellitus type 2 (SNOMED CT 46141013) 10. Disorder of rotator cuff 11. Lumbar Radiculopathy EMG motor loss post.tib Bilat Chronic R. L5-S1 dennerv. L-S MRI 01/27 disc bulge + mild mod stenosis L3-4, 4-5.+ R.L4-5 foraminal narrowing. Schmorl's node T12 12. Diverticulitis, Colonic * 13. Gastroesophageal Reflux Disorder 14. Degenerative arthritis (SNOMED CT 722621846) 15. Mitral Valve Prolapse ECHO 01/25 EF 55-60%. AV mildly thickened. No AI/. mild LAE myxom. degen MV. mild MVP.mild-mod MR. mild TR. [id number] Echo 02/26EF60%,2-3+MR,LAE,myx. degen MV, no change fr [address] Kassidy Campbell [phone] 16. Hyperlipidaemia (SNOMED CT 10478415) 17. Benign essential hypertension (SNOMED CT 0475655) Dr Saunders 18. Obesity 19. Posttraumatic Stress Disorder 20. Panic Attacks SERVICE CONNECTED % - 80 VA and Non VA meds were reconciled with the patient who left with a corrected copy. See medication page for details. Active and Recently Outpatient Medications (excluding Supplies): Active Outpatient Medications Status 1) ACCU-CHEK GUIDE (GLUCOSE) TEST STRIP USE 1 STRIP TO ACTIVE TEST BLOOD SUGARS TWO TIMES A WEEK [...] SA TAB TAKE TWO TABLETS BY ACTIVE MOUTH EVERY EVENING 9) METOPROLOL SUCCINATE 25MG [...] BY MOUTH AT ACTIVE BEDTIME FOR BPH 17) TRIAMCINOLONE ACETONIDE 0.1% CREAM APPLY A THIN LAYER ACTIVE TOPICALLY TWICE DAILY FOR ITCHING 18) WATER STERILE FOR IRRIGATION IRRIGATE MODERATE AMOUNT ACTIVE DIRECTED ONCE DAILY FOR C-PAP MACHINE Active Non-VA Medications Status 1) Non-VA CHOLECALCIF 25MCG (D3-1,000UNIT) TAB 25MCG BY ACTIVE MOUTH ONCE DAILY 2) Non-VA DICLOFENAC 1% GEL (EQV-VOLTAREN) GEL,TOP ACTIVE TOPICALLY 3) Non-VA OTHER CAP/TAB BUTALBITAL BY MOUTH ONCE DAILY ACTIVE NEEDED 4) Non-VA SAW PALMETTO CAP/TAB BY MOUTH ACTIVE 5) Non-VA TOLTERODINE TARTRATE 2MG SA CAP 2MG BY MOUTH ACTIVE ONCE DAILY 23 Total Medications 98.7 F [37.1 C] (01/22/2024 13:00) 56 (01/22/2024 13:00) 16 (01/22/2024 13:00) 130/80 (01/22/2024 13:00) 3 (01/22/2024 13:00) 70 in [177.8 cm] (01/03/2022 10:15) 220 lb [99.79 kg] (01/22/2024 13:00) BMI: 31.6 Neuro: Alert and oriented times three, grossly nonfocal, nasolabial folds intact. Recent labs reviewed with patient today:yes Advance Directive Screen AD: Patient has an up-to-date Advance Directive at an outside, non-va facility and was asked to forward a copy to his/her clinician. /lisa/ Chito Medrano PA-C STAFF PHYSICIAN E LEARNING MANAGER Signed: 01/22/2024 13:28 01/22/2024 ADDENDUM STATUS: COMPLETED Eliquis added as well, he will have them fax an rx to pharmacy. /mumtaz Medrano PA-C STAFF PHYSICIAN E LEARNING MANAGER Signed: 01/22/2024 13:29 CHITO MEDRANO [facility] [place] [facility] Jan 22, 2024 01:01 PM PREVENTIVE MEDICINE NURSING NOTE: LOCAL TITLE: CLINICAL REMINDERS/NURSING STANDARD TITLE: PREVENTIVE MEDICINE NURSING NOTE DATE OF NOTE: JAN 22, 2024@13:01 ENTRY DATE: JAN 22, 2024@13:01:47 AUTHOR: DERIC FLORES EXP COSIGNER: URGENCY: STATUS: COMPLETED PAVE Foot Check: Patient indicates foot exam (including monofilament test for sensation) was performed in the past year in the private sector: Date: December 01, 2023 Result: Normal /lisa/ DERIC FLORES LPN DERIC FLORES LPN Signed: 01/22/2024 13:02 DERIC FLORES [facility]
--- OUTSIDE RECORDS SUMMARY | 2024-05-10 07:29 | XMS_ITS | Encounter Summary ---
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 Organization [place] Address [address] [place] [address] Care Team Providers Care Clinical Trainer Name Role Phone CHITO SEGURA Primary Care [...] PART A Feb 16, 2018 PART A [id number] [phone] [id number] YENNY OVIEDO PATIENT MEDICARE (WNR) MEDICARE (M) PART B Feb 16, 2018 PART B [id number] YENNY OVIEDO PATIENT MEDICARE (WNR) MEDICARE (M) PART A Oct 17, 2006 PART A [id number] YENNY OVIEDO PATIENT FOR LIFE TFL* Apr 06, 2018 [id number] YENNY OVIEDO PATIENT Selected Encounter This section includes the information on record at [place] for the Encounter. Date/Time Encounter Type Encounter Description Reason Pro vider Source Dec 01, 2023 12:00 AM Outpatient Encounter EVENT (HISTORICAL) IHE Encounter Template Text not used by [place] Plan of Treatment: Future Appointments (+ 6 months) and Future Tests (+/- 45 days) The Plan of Treatment section includes future care activities for the patient [facility] [place] [facility] This section includes future appointments [...] MEDICINE [facility] [facility] Jan 12, 2024 11:40 AM AMBULATORY - [place]ICINE [place] [facility] [place] [facility] Jan 22, 2024 01:00 PM AMBULATORY - MEDICINE [facility] [facility] Jan 29, 2024 08:45 AM AMBULATORY - [place]ICINE [place] [facility] [place] [facility] Feb 16, 2024 08:00 AM [facility] Feb 17, 2024 07:30 AM AMBULATORY - NONE [facility] [place] [facility] Mar 16, 2024 09:30 AM AMBULATORY - NONE [facility] [place] [facility] Mar 30, 2024 07:30 AM AMBULATORY - MEDICINE [facility] [place] [facility] Apr 06, 2024 09:00 AM [facility] Apr 12, 2024 08:00 AM [facility]ICINE [facility] Apr 12, 2024 11:00 AM AMBULATORY - [place]ICINE [place] [facility] [place] [facility] Apr 12, 2024 01:30 PM AMBULATORY - MEDICINE [facility] [place] [facility] Apr 30, 2024 01:40 PM AMBULATORY - NONE [facility] [place] [facility] May 28, 2024 08:30 AM AMBULATORY - MEDICINE [facility] [place] [facility] May 31, 2024 11:00 AM AMBULATORY - MEDICINE [place] [facility] [facility] Jun 01, 2024 07:30 AM AMBULATORY - NONE [place] [facility] [facility] Social History: Smoking Status (Most current) and [...] 21, 2023 01:30 PM [facility] Tobacco Use History This section includes a history of the smoking, or tobacco-related health factors, that were collected on or before the date of the Encounter. The data comes from the [place] facility where the Encounter took place. Date/Time Smoking Status/Tobacco Use Comment F acsophia Jul 21, 2023 01:30 PM VA-TOBACCO QUIT 15 YRS OR MORE [place] [facility] [place] [facility] Mar 28, 2021 03:28 PM VA-TOBACCO FORMER USER [place] [facility] [facility] Mar 28, 2021 03:28 PM VA-TOBACCO QUIT 15 YRS OR MORE [place] [facility] [facility] Dec 02, 2019 09:36 AM VA-TOBACCO NEVER USED [place] [facility] [place] [facility] Apr 23, 2005 10:19 AM QUIT TOBACCO USE IN PAST YEAR [facility] Advance Directives: All historical and [...]
--- OUTSIDE RECORDS SUMMARY | 2024-05-10 07:29 | XMS_ITS ---
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 Address [address] [place] [id number] Care Team Providers Care Director Human Services Name Role Phone CHITO SEGURA Primary Care [...] PART A Feb 16, 2018 PART A [id number] YENNY OVIEDO PATIENT MEDICARE (WNR) MEDICARE (M) PART B Feb 16, 2018 PART B [id number] YENNY OVIEDO ES PATIENT MEDICARE (WNR) MEDICARE (M) PART A Oct 17, 2006 PART A [id number] [facility] [phone] YENNY OVIEDO PATIENT FOR LIFE TFL* Apr 06, 2018 [id number] [phone] YENNY OVIEDO PATIENT Selected Encounter This section includes the information on record at [place] for the Encounter. Date/Time Encounter Type Encounter Description Reason Provider Source Nov 27, 2023 07:15 AM ORAL HYGIENE INSTRUCTION DENTAL ICD-10-CM K03.6 Deposits [accretions] on teeth JHONATHAN VILLAREAL E Encounter Template Text not used by [place] Assessments - Encounter Diagnoses This section includes the primary and secondary diagnoses documented for the Encounter. Date/Time Primary/Secondary Diagnosis Diagnosis Name Provider Source Nov 27, 2023 08:18 AM PRIMARY Deposits [accretions] on teeth JHONATHAN VILLAREAL [place] [facility] [place] [facility] Plan of Treatment: Future Appointments (+ 6 months) and Future Tests (+/- 45 days) The Plan of Treatment section includes future care activities for the patient from all [place] treatmentfacilities. This section includes future appointments and future orders which are active, pending or scheduled. Future Appointments This section includes appointments that were scheduled to occur 6 months from the date of the Encounter, up to a maximum of 20 appointments. The data comes from all [place] treatment facilities. Appointment Date/Time Appointment Type Appointme nt Facility Name Dec 01, 2023 08:00 AM AMBULATORY - MEDICINE [facility] Jan 12, 2024 11:25 AM AMBULATORY - MEDICINE [place] [facility] [place] [facility] Jan 12, 2024 11:40 AM AMBULATORY - MEDICINE [place] [facility] [place] [facility] Jan 22, 2024 01:00 PM AMBULATORY - MEDICINE [place] [facility] [place] [facility] Jan 29, 2024 08:45 AM AMBULATORY - MEDICINE [place] [facility] [place] [facility] Feb 16, 2024 08:00 AM AMBULATORY - MEDICINE [facility] Feb 17, 2024 07:30 AM AMBULATORY - NONE [place] [facility] [place] [facility] Mar 16, 2024 09:30 AM AMBULATORY - NONE [place] [facility] [place] [facility] Mar 30, 2024 07:30 AM AMBULATORY - MEDICINE [place] [facility] [place] [facility] Apr 06, 2024 09:00 AM AMBULATORY - MEDICINE [facility] Apr 12, 2024 08:00 AM AMBULATORY - MEDICINE [facility] Apr 12, 2024 11:00 AM AMBULATORY - MEDICINE [place] [facility] [place] [facility] Apr 12, 2024 01:30 PM AMBULATORY - MEDICINE [place] [facility] [place] [facility] Apr 30, 2024 01:40 PM AMBULATORY - NONE [place] [facility] [place] [facility] May 28, 2024 08:30 AM [facility] [place] [facility] Social History: Smoking Status (Most current) and Tobacco Use (All prior to encounter date) This section includes the most current, and the historical, smoking and tobacco- related health factors from the [place] facility where the Encounter took place. Current Smoking Status This section includes the most current smoking, or tobacco-related health factor, from the [place] facility where the Encounter took place. Date/Time Current Smoking Status Comment Ginger ity Jul 21, 2023 01:30 PM [facility]CO [facility] Tobacco Use History This section includes a history of the smoking, or tobacco-related health factors, that were collected on or before the date of the Encounter. The data comes from the [place] facility where the Encounter took place. Date/Time Smoking Status/Tobacco Use Comment F acility Jul 21, 2023 01:30 PM VA-TOBACCO QUIT 15 YRS OR MORE [place] [facility] [place] [facility] Mar 28, 2021 03:28 PM VA-TOBACCO FORMER USER [place] [facility] [place] [facility] Mar 28, 2021 03:28 PM VA-TOBACCO QUIT 15 YRS OR MORE [place] [facility] [place] [facility] Dec 02, 2019 09:36 AM VA-TOBACCO NEVER USED [place] [facility] [place] [facility] Apr 23, 2005 10:19 AM QUIT [facility] Advance Directives: All historical and current Section Date Range: From patient's date of to the date document was created. This section includes ALL of a patient's completed or amended [place] Advance and Rescinded Directives. The entries below indicate that a directive exists for the patient, but an actual copy is not included with this document. The data comes from all [place] facilities. Date Advance Directives Provider Source Dec 16, 2011 ADVANCE DIRECTIVE DISCUSSION MARGARITA TERRAZAS Encounter Notes: All associated encounter notes This section contains the clinical notes associated to the Encounter. Date/Time Encounter Note(s) Provider Source Nov 27, 2023 08:14 AM DENTISTRY NOTE: LOCAL TITLE: DENTAL NOTE STANDARD TITLE: DENTISTRY NOTE DATE OF NOTE: NOV 27, 2023@08:14 ENTRY DATE: NOV 27, 2023@08:18:47 AUTHOR: JHONATHAN VILLAREAL COSIGNER: URGENCY: STATUS: COMPLETED Patient Name: ANDREEA OVIEDO, : 1955, Age: 68 Visit: S: Nov 27, 2023@07:15 CWM/NO/DENTAL/RDH1 AM. Primary PCE Diagnosis: K03.6 (Deposits [accretions] on teeth). Dental Category: 15-OPC, Class IV. Treatment Status: Maintenance. Completed Care: (D1110) DENTAL PROPHYLAXIS ADULT. DX: K03.6 Deposits [Accretions] on Teeth (D1206) TOPICAL FLUORIDE VARNISH. DX: K03.6 Deposits [Accretions] on Teeth (D1330) ORAL HYGIENE INSTRUCTION. DX: K03.6 Deposits [Accretions] on Teeth Dental Alerts: Had heart valve replacement on Apr 30, 2017. [facility] Cardiac Surgery requires premedication one hour before dental procedures. 500 mg Azithromycin per current AHA guidelines. In the past he premedicated with 600 mg Clindamycin. Oral Health Assessment Findings: Plaque Index: 1 - Slight Xerostomia: 0 - None Caries Risk: 2 - Moderate Oral Hygiene: 2 - Fair - - - - - - - - - - - - - - - - - - - - - - - - - - - - - - TIME OUT/Safety goals were verified immediately prior to the procedure. (Correct patient, procedure, site, position) Full name and date used. STERILIZATION MONITOR IN INSTRUMENT PACK CHECKED AND CONFIRMED CC: Patient said #31 feels the same. Has not been contacted by CC yet. PREMEDICATION: Patient stated they took premed. PAST MEDICAL HISTORY: Reviewed, no contraindications for treatment. LAST RADIOGRAPHS: BWX: 10/02/22 PANO: 01/26/18 ( CC to due pano) NEW RADIOGRAPHS: BWX SOFT TISSUE SCREENING: no abnormalities noted EXAMINATION: by Dr. Davis (see dr note) ORAL HYGIENE ASSESSMENT: generalized light plaque generalized light stain PERIODONTAL ASSESSMENT: localized light calculus lucia mandibular anteriors localized light inflammation localized light bleeding generalized recession Partial/Denture: Patient said he can not wear his lower partial due to #31 bothering him. Discussed after the tooth is extracted may be able to add that tooth to th epartial or make a new partial DENTAL TREATMENT PROVIDED: PROPHYLAXIS - hand scaling, piezo, kazakh, floss TOPICAL FLUORIDE APPLICATION - Varnish PRE-RINSE WITH CREST RINSE ORAL HYGIENE INSTRUCTIONS GIVEN TO PATIENT: Patinet brushes mostly once a day with a manual toothbrush. Discussed brushing twice a few times a week to help prevent cavities under cornws and bridges. Patient understood. Discussed angling bristles into gumlines to remove plaque and bacteria. DISPOSITION: 6 MONTHS RECARE NEXT VISIT: filling #6 F and add to partial or make a new one /lisa/ JHONATHAN VILLAREAL [facility], DENTAL SERVICE Signed: 11/27/2023 08:18 JHONATHAN VILLAREAL [place] [facility]
--- OUTSIDE RECORDS SUMMARY | 2024-05-10 07:29 | XMS_ITS | Encounter Summary ---
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 Address [address] [place] [address] Care Team Providers Care Tag Stringer Name Role Phone CHITO SEGURA Primary Care [...] PART A Feb 16, 2018 PART A [id number] [phone] YENNY OVIEDO PATIENT MEDICARE (WNR) MEDICARE (M) PART B Feb 16, 2018 PART B [id number] YENNY OVIEDO ES PATIENT MEDICARE (WNR) MEDICARE (M) PART A Oct 17, 2006 PART A [id number] [facility] YENNY OVIEDO PATIENT FOR LIFE TFL* Apr 06, 2018 [id number] YENNY OVIEDO PATIENT Selected Encounter This section includes the information on record at [place] for the Encounter. Date/Time Encounter Type Encounter Description Reason Provider Source Jan 05, 2024 04:05 PM POS AIRWAY PRESSURE CPAP TELEPHONE/MEDICIN E ICD-10-CM G47.30 Sleep apnea, unspecified ST AMYASSINE HANCOCK P IHE Encounter Template Text not used by [place] Assessments - Encounter Diagnoses This section includes the primary and secondary diagnoses documented for the Encounter. Date/Time Primary/Secondary Diagnosis Diagnosis Name Provider Source Jan 05, 2024 04:05 PM PRIMARY Sleep apnea, unspecified ST JULIOYASSINE P [place] [facility] [place] [facility] Plan of Treatment: Future Appointments (+ 6 months) and Future Tests (+/- 45 days) The Plan of Treatment section includes future care activities for the patient from all [place] treatmentfacilities. This section includes future appointments and future orders which are active, pending or scheduled. Future Appointments This section includes appointments that were scheduled to occur 6 months from the date of the Encounter, up to a maximum of 20 appointments. The data comes from all [place] treatment facilities. Appointment Date/Time Appointment Type Appointme nt Facility Name Jan 12, 2024 11:25 AM AMBULATORY - MEDICINE [place] [facility] [place] [facility] Jan 12, 2024 11:40 AM AMBULATORY - MEDICINE [place] [facility] [place] [facility] Jan 22, 2024 01:00 PM AMBULATORY - MEDICINE [place] [facility] [place] [facility] Jan 29, 2024 08:45 AM AMBULATORY - MEDICINE [place] [facility] [place] [facility] Feb 16, 2024 08:00 AM AMBULATORY - MEDICINE [facility] Feb 17, 2024 07:30 AM AMBULATORY - NONE [place] [facility] [place] [facility] Mar 16, 2024 09:30 AM AMBULATORY - NONE [place] [facility] [place] [facility] Mar 30, 2024 07:30 AM AMBULATORY - MEDICINE [place] [facility] [place] [facility] Apr 06, 2024 09:00 AM [facility]ORY [facility] Apr 12, 2024 08:00 AM [facility] Apr 12, 2024 11:00 AM AMBULATORY - MEDICINE [place] [facility] [place] [facility] Apr 12, 2024 01:30 PM AMBULATORY - MEDICINE [place] [facility] [place] [facility] Apr 30, 2024 01:40 PM AMBULATORY - NONE [place] [facility] [place] [facility] May 28, 2024 08:30 AM AMBULATORY - MEDICINE [place] [facility] [place] [facility] May 31, 2024 11:00 AM AMBULATORY - MEDICINE [place] [facility] [place] [facility] Jun 01, 2024 07:30 AM AMBULATORY - NONE [place] [facility] [place] [facility] Jun 28, 2024 08:00 AM AMBULATORY - MEDICINE [facility] Lab Results: +/- 30 days of the encounter This section includes the Chemistry and Hematology Lab Results on record with [place] for the patient. Radiology Reports and Pathology Reports are provided separately, in subsequent sections. Lab Results This section contains the Chemistry/Hematology Results that were resulted 30 days before or 30 daysafter the date of the Encounter. Date/Time Source Result Type Result - Unit Interpretation Reference Range Comment Jan 05, 2024 07:32 AM [place] [facility] MICROALBUMIN CREATININE RATIO PANEL Specimen Type: URINE No comment entered. Ordering Provider: AYUSH SEGURA F Report Released Date/Time: Jul 21, 2023 02:25 PM Reporting Lab: [place] [facility] [address] [facility] [address] Performing Lab: [facility] [address] [facility] [address] MICROALBUMIN/C REATININE RATIO 45.9 mg/g H 0-29.9 MICROALBUMIN,Q UANTITATIVE 5.0 mg/dL RR UNAVAIL CREATININE URINE 108.91 mg/dL Jan 05, 2024 07:32 AM [facility] LIVER FUNCTION Specimen Type: SERUM No comment entered. Ordering Provider: AYUSH SEGURA F Report Released Date/Time: Jul 21, 2023 02:25 PM Reporting Lab: [facility] [address] [facility] [address] Performing Lab: [facility] [address] [address] PROTEIN,TOTAL 6.3 g/dL 6.0-8.3 ALBUMIN 3.6 g/dL 3.5-5.0 ALKALINE PHOSPHATASE 39 U/L L 40-150 AST 13 U/L 5-34 ALT 15 U/L BILIRUBIN, TOTAL 1.0 mg/dL 0.2-1.2 Jan 05, 2024 07:32 AM [facility] BASIC METABOLIC PANEL (fasting) Specimen Type: SERUM No comment entered. Ordering Provider: AYUSH SEGURA F Report Released Date/Time: Jul 21, 2023 02:25 PM Reporting Lab: [facility] [address] [facility] [address] Performing Lab: [address] [address] UREA NITROGEN 21 mg/dL 7-25 GLUCOSE 126 mg/dL H 65-100 SODIUM 139 mmol/L 135-145 POTASSIUM 3.9 mmol/L 3.5-5.0 CHLORIDE 107 mmol/L 100-110 CO2 22 meq/L 20-30 CREATININE, Serum 0.68 mg/dL 0.50-1.40 eGFR(CKD-EPI 2020) >90 mL/min >60 Jan 05, 2024 07:32 AM [facility] LIPID PANEL FASTING Specimen Type: SERUM No comment entered. Ordering Provider: AYUSH SEGURA F Report Released Date/Time: Jul 21, 2023 02:25 PM Reporting Lab: [address] [address] Performing Lab: [address] [address] CHOLESTEROL 116 mg/dL TRIGLYCERIDE 73 mg/dL 0-150 LDL calculated 62 mg/dL 0-129 CHOL/HDL 3.0 HDL CHOLESTEROL 39 mg/dL L 40-60 Jan 05, 2024 07:32 AM [facility] HEMOGLOBIN A1C PANEL Specimen Type: BLOOD [...] Jul 21, 2023 02:25 PM Reporting Lab: [place] [address] [address] Performing Lab: [address] [address] HEMOGLOBIN A1C 6.1 H 4.0-5.6 Jan 05, 2024 07:32 AM [facility] PSA Specimen Type: SERUM No comment entered. Ordering Provider: AYUSH SEGURA F Report Released Date/Time: Jul 21, 2023 02:25 PM Reporting Lab: [address] [address] Performing Lab: [address] [address] PSA < 0.10 ng/mL 0.00-4.00 Jan 05, 2024 07:32 AM [facility] URINALYSIS Specimen Type: URINE Comment: If Glucose = >500 and Ketones are positive, please alert the Physician. Ordering Provider: AYUSH SEGURA Report Released Date/Time: Jul 21, 2023 02:25 PM Reporting Lab: [address] [address] Performing Lab: [address] [address] UA COLOR Yellow Yellow UA APPEARANCE Clear [...] and tobacco- related health factors from the [place] facility where the Encounter took place. Current Smoking Status This section includes the most current smoking, or tobacco-related health factor, from the [place] facility where the Encounter took place. Date/Time Current Smoking Status Shasha ellis Jul 21, 2023 01:30 PM VA-TOBACCO FOR[facility] USER [facility] Tobacco Use History This section includes a history of the smoking, or tobacco-related health factors, that were collected on or before the date of the Encounter. The data comes from the [place] facility where the Encounter took place. Date/Time Smoking Status/Tobacco Use Comment F acility Jul 21, 2023 01:30 PM VA-TOBACCO QUIT 15 YRS OR MORE [facility] Mar 28, 2021 03:28 PM VA-TOBACCO FORMER USER [place] [facility] Mar 28, 2021 03:28 PM VA-TOBACCO QUIT 15 YRS OR MORE [facility] Dec 02, 2019 09:36 AM VA-TOBACCO NEVER USED [facility] Apr 23, 2005 10:19 AM QUIT TOBACCO USE IN PAST YEAR [facility] Advance Directives: All historical and current Section Date Range: From patient's date of to the date document was created. This section includes ALL of a patient's completed or amended [place] Advance and Rescinded Directives. The entries below indicate that a directive exists for the patient, but an actual copy is not included with this document. The data comes from all [place] facilities. Date Advance Directives Provider Source Dec 16, 2011 ADVANCE DIRECTIVE DISCUSSION MARGARITA TERRAZAS [place] Encounter Notes: All associated encounter notes This section contains the clinical notes associated to the Encounter. Date/Time Encounter Note(s) Provider Source Jan 05, 2024 04:05 PM RESPIRATORY THERAP Y NOTE: LOCAL TITLE: RESPIRATORY THERAPY NOTE(BLANK) STANDARD TITLE: RESPIRATORY THERAPY NOTE DATE OF NOTE: JAN 05, 2024@16:05 ENTRY DATE: JAN 05, 2024@16:05:37 AUTHOR: YASSINE BARGER EXP COSIGNER: URGENCY: STATUS: COMPLETED Telephone Coding and Documentation: Diagnosis: Sleep Apnea Actual time spent with Patient via telephone: 15 minutes. [place] diagnosed with sleep apnea called to discuss VACT sleep specialist recommendation as follows: REPLY: 1. [employer] ResMed data reviewed. (see below), P95 was 8.8 cwp with low residual AHI of 1/hr (APAP 5-14 cwp). 2. Would recommend to try him on APAP 8-14 cm H0 (based on his download data). Can Discontinue ramp or if needed Change ramp time to 5 minutes with starting pressure of 7 cm H20. Can also decrease EPR to 2 cm H20. 3. Would also suggest to check his machine, to make sure its functioning well as well as his mask. 4. If he continue to struggle after the change, can consider CPAP titration study. Dia is agreeable to settings change. Dia also reports he is in A-flutter and will be scheduled for cardioversion. [employer] Compliance Report Usage 12/07/2023 - 01/05/2024 Usage days 29/30 days (97%) >= 4 hours 29 days (97%) < 4 hours 0 days (0%) Usage hours 188 hours 0 minutes Average usage (total days) 6 hours 16 minutes Average usage (days used) 6 hours 29 minutes Median usage (days used) 6 hours 45 minutes Total used hours (value since last reset - 01/05/2024) 998 hours [employer] 11 AutoSet Serial number [id number] Mode AutoSet Min Pressure 5 cmH2O Max Pressure 14 cmH2O EPR Off Response Soft Therapy Pressure - cmH2O Median: 6.4 95th percentile: 9.0 Maximum: 10.2 Leaks - L/min Median: 0.0 95th percentile: 1.7 Maximum: 13.1 Events per hour AI: 0.2 HI: 1.3 AHI: 1.5 Apnea Index Central: 0.1 Obstructive: 0.1 Unknown: 0.0 RERA Index 0.0 Humza-Fu respiration (average duration per night) 1 minutes (0%) /lisa/ YASSINE BARGER RESPIRATORY THERAPIST Signed: 01/05/2024 16:36 YASSINE BARGER [place] [facility] [place] [facility]
--- OUTSIDE RECORDS SUMMARY | 2024-05-10 07:29 | XMS_ITS ---
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 Date/Time Encounter Type Encounter Description Reason Provider Source Jan 16, 2024 01:50 PM Outpatient Encounter PRIMARY CARE/MEDICINE AISHA SANDERS [facility] Encounter Template Text not used by [place] Plan of Treatment: Future Appointments (+ 6 months) and Future Tests (+/- 45 days) The Plan of Treatment section includes future care activities for the patient from all [place] [facility]. This section includes future appointments and future orders which are active, pending or scheduled. Future Appointments This section includes appointments that were scheduled to occur 6 months from the date of the Encounter, up to a maximum of 20 appointments. The data comes from all [place] treatment facilities. Appointment Date/Time Appointment Type Appointme nt Facility Name Jan 22, 2024 01:00 PM AMBULATORY - MEDICINE [place] [facility] [place] [facility] Jan 29, 2024 08:45 AM AMBULATORY - MEDICINE [place] [facility] [place] [facility] Feb 16, 2024 08:00 AM [facility]ATORY - MEDICINE [facility] Feb 17, 2024 07:30 AM AMBULATORY - NONE [place] [facility] [place] [facility] Mar 16, 2024 09:30 AM AMBULATORY - NONE [facility] [place] [facility] Mar 30, 2024 07:30 AM AMBULATORY - MEDICINE [place] [facility] [place] [facility] Apr 06, 2024 09:00 AM AM[facility]ATORY - MEDICINE [facility] Apr 12, 2024 08:00 AM AM[facility]ULATORY - MEDICINE [facility] Apr 12, 2024 11:00 AM AMBULATORY - MEDICINE [place] [facility] [place] [facility] Apr 12, 2024 01:30 PM AMBULATORY - MEDICINE [place] [facility] [place] [facility] Apr 30, 2024 01:40 PM AMBULATORY - NONE [facility] [place] [facility] May 28, 2024 08:30 AM AMBULATORY - MEDICINE [place] [facility] [place] [facility] May 31, 2024 11:00 AM AMBULATORY - MEDICINE [place] [facility] [place] [facility] Jun 01, 2024 07:30 AM AMBULATORY - NONE [place] [facility] [place] [facility] Jun 28, 2024 08:00 AM AM[facility]ULATORY - MEDICINE [facility] Lab Results: +/- 30 days of the encounter This section includes the Chemistry and Hematology Lab Results on record with [place] for the patient. Radiology Reports and Pathology Reports are provided separately, in subsequent sections. Lab Results This section contains the Chemistry/Hematology Results that were resulted 30 days before or 30 daysafter the date of the Encounter. Date/Time Source Result Type Result - Unit Interpretation Reference Range Comment Jan 05, 2024 07:32 AM [facility] LIVER FUNCTION Specimen Type: SERUM No comment entered. Ordering Provider: AYUSH MEDRANO F Report Released Date/Time: Jul 21, 2023 02:25 PM Reporting Lab: [address] [address] Performing Lab: [address] [address] PROTEIN,TOTAL 6.3 g/dL 6.0-8.3 ALBUMIN 3.6 g/dL 3.5-5.0 ALKALINE PHOSPHATASE 39 U/L L 40-150 AST 13 U/L 5-34 ALT 15 U/L BILIRUBIN, TOTAL 1.0 mg/dL 0.2-1.2 Jan 05, 2024 07:32 AM [facility] BASIC METABOLIC PANEL (fasting) Specimen Type: SERUM No comment entered. Ordering Provider: AYUSH MEDRANO F Report Released Date/Time: Jul 21, 2023 02:25 PM Reporting Lab: [address] [address] Performing Lab: [address] [address] UREA NITROGEN 21 mg/dL 7-25 GLUCOSE 126 mg/dL H 65-100 SODIUM 139 mmol/L 135-145 POTASSIUM 3.9 mmol/L 3.5-5.0 CHLORIDE 107 mmol/L 100-110 CO2 22 meq/L 20-30 CREATININE, Serum 0.68 mg/dL 0.50-1.40 eGFR(CKD-EPI 2020) >90 mL/min >60 Jan 05, 2024 07:32 AM [facility] LIPID PANEL FASTING Specimen Type: SERUM No comment entered. Ordering Provider: AYUSH MEDRANO F Report Released Date/Time: Jul 21, 2023 02:25 PM Reporting Lab: [address] [address] Performing Lab: [facility] [address] [facility] [address] CHOLESTEROL 116 mg/dL TRIGLYCERIDE 73 mg/dL 0-150 LDL calculated 62 mg/dL 0-129 CHOL/HDL 3.0 HDL CHOLESTEROL 39 mg/dL L 40-60 Jan 05, 2024 07:32 AM [facility] MICROALBUMIN CREATININE RATIO PANEL Specimen Type: URINE No comment entered. Ordering Provider: AYUSH MEDRANO F Report Released Date/Time: Jul 21, 2023 02:25 PM Reporting Lab: [address] [address] Performing Lab: [address] [address] MICROALBUMIN/C REATININE RATIO 45.9 mg/g H 0-29.9 MICROALBUMIN,Q UANTITATIVE 5.0 mg/dL RR UNAVAIL CREATININE URINE 108.91 mg/dL Jan 05, 2024 07:32 AM [facility] PSA Specimen Type: SERUM No comment entered. Ordering Provider: AYUSH MEDRANO Report Released Date/Time: Jul 21, 2023 02:25 PM Reporting Lab: [address] [address] Performing Lab: [address] [address] PSA < 0.10 ng/mL 0.00-4.00 Jan 05, 2024 07:32 AM [facility] HEMOGLOBIN A1C PANEL Specimen Type: BLOOD Comment: [...] Jul 21, 2023 02:25 PM Reporting Lab: [address] [place] [address] Performing Lab: [address] [address] HEMOGLOBIN A1C 6.1 H 4.0-5.6 Jan 05, 2024 07:32 AM [facility] URINALYSIS Specimen Type: URINE Comment: If Glucose = >500 and Ketones are positive, please alert the Physician. Ordering Provider: AYUSH MEDRANO Report Released Date/Time: Jul 21, 2023 02:25 PM Reporting Lab: [facility] [address] [facility] [address] Performing Lab: [address] [address] UA COLOR Yellow Yellow UA APPEARANCE Clear [...] and tobacco- related health factors from the [place] facility where the Encounter took place. Current Smoking Status This section includes the most current smoking, or tobacco-related health factor, from the [place] facility where the Encounter took place. Date/Time Current Smoking Status Comment Ginger ellis Jul 21, 2023 01:30 PM VA-TOBACCO FORMER USER [facility] Tobacco Use History This section includes a history of the smoking, or tobacco-related health factors, that were collected on or before the date of the Encounter. The data comes from the [place] facility where the Encounter took place. Date/Time Smoking Status/Tobacco Use Comment F yusef Jul 21, 2023 01:30 PM VA-TOBACCO QUIT 15 YRS OR MORE [facility] Mar 28, 2021 03:28 PM VA-TOBACCO FORMER USER [facility] Mar 28, 2021 03:28 PM [facility]BACCO QUIT [facility]RS [facility] Dec 02, 2019 09:36 AM [facility]-TOBACCO [facility] USED [facility] Apr 23, 2005 10:19 AM QUIT TOBACCO USE IN PAST YEAR [facility] Advance Directives: All historical and current Section Date Range: From patient's date of to the date document was created. This section includes ALL of a patient's completed or amended [place] Advance and Rescinded Directives. The entries below indicate that a directive exists for the patient, but an actual copy is not included with this document. The data comes from all [place] facilities. Date Advance Directives Provider Source Dec 16, 2011 ADVANCE DIRECTIVE DISCUSSION MARGARITA TERRAZAS NARVON Encounter Notes: All associated encounter notes This section contains the clinical notes associated to the Encounter. Date/Time Encounter Note(s) Provider Source Jan 16, 2024 01:51 PM ADDENDUM: LOCAL TITLE: Addendum STANDARD TITLE: ADDENDUM DATE OF NOTE: JAN 16, 2024@13:51:48 ENTRY DATE: JAN 16, 2024@13:51:48 AUTHOR: AISHA SANDERS EXP COSIGNER: URGENCY: STATUS: COMPLETED [place] was seen in office with non-VA PCP Dr. Mae? found to be in a-flutter put on Eliquis BID cardioversion or ablation scheduled on Feb 04 with [facility] whom plan to also add amiodarone at that time. Will need renewal of Cardiology Consult. Consult entered, pending provider signature. /lisa/ AISHA SANDERS RN REGISTERED NURSE Signed: 01/16/2024 14:02 Receipt Acknowledged By: 01/16/2024 15:35 /lisa/ Omer Medrano PA-C STAFF PHYSICIAN RESIDENCE SUPERVISOR ====== --- Original Document --- 01/16/24 PRIMARY CARE SECURE MESSAGING: ------Original Message ------- Sent: 01/16/2024 11:36 AM ET From: ANDREEA OVIEDO To: Sebas MEDRANO_[facility] Subject: General:Dec appointment My fell and fractured her hip as we were leaving for my appointment. I called the [place] with message to you as she went to the ambulance and hospital. I am in A- flutter and need cardioversion Feb 03. I have multiple med changes, one is Eliquis BID. Possible ablation at some point if no conversion. I will be in touch or you can call me at anytime. Edwar Wiley 73[address] Feb ------Original Message ------- Sent: 01/16/2024 01:10 PM ET From: AISHA SANDERS To: ANDREEA OVIEDO Subject: General:Dec appointment We are very to sorry to hear about this and are wishing her and you the best. Sounds like you will have a lot going on in the next few weeks. Your Cardiology consult for [facility] in July of this year, do you need this renewed for them or will be you seeing another provider for the medication and cardioversion? Were you recently in the hospital for the a-flutter or just an office appointment? I would like to get the notes to share with Mr. Medrano. Thank you for your service, MANJU Ware - PACT Field Placement Director ------Original Message ------- Sent: 01/16/2024 01:18 PM ET From: ANDREEA OVIEDO To: Sebas MEDRANO_[facility] Subject: General:Dec appointment Yes, I will probably need that. Could you please call me at [phone] so we can give you an accurate update on my Cardiology status. I have all the paperwork and reports thanks /lisa/ AISHA SANDERS RN REGISTERED NURSE Signed: 01/16/2024 13:50 AISHA SANDERS [place] [facility] [place] [facility] Jan 16, 2024 01:50 PM PRIMARY CARE SECUR E MESSAGING: LOCAL TITLE: PRIMARY CARE SECURE MESSAGING STANDARD TITLE: PRIMARY CARE SECURE MESSAGING DATE OF NOTE: JAN 16, 2024@13:50 ENTRY DATE: JAN 16, 2024@13:50:42 AUTHOR: AISHA SANDERS EXP COSIGNER: URGENCY: STATUS: COMPLETED PRIMARY CARE SECURE MESSAGING Has ADDENDA ------Original Message ------- Sent: 01/16/2024 11:36 AM ET From: ANDREEA OVIEDO To: Sebas MEDRANO_[facility] Subject: General:Dec appointment My fell and fractured her hip as we were leaving for my appointment. I called the [place] with message to you as she went to the ambulance and hospital. I am in A- flutter and need cardioversion Feb 03. I have multiple med changes, one is Eliquis BID. Possible ablation at some point if no conversion. I will be in touch or you can call me at anytime. Edwar Oviedo 7311 Feb ------Original Message ------- Sent: 01/16/2024 01:10 PM ET From: AISHA SANDERS To: ANDREEA OVIEDO Subject: General:Dec appointment We are very to sorry to hear about this and are wishing her and you the best. Sounds like you will have a lot going on in the next few weeks. Your Cardiology consult for [facility] in July of this year, do you need this renewed for them or will be you seeing another provider for the medication and cardioversion? Were you recently in the hospital for the a-flutter or just an office appointment? I would like to get the notes to share with Mr. Medrano. Thank you for your service, MANJU Ware - PACT Field Placement Director ------Original Message ------- Sent: 01/16/2024 01:18 PM ET From: ANDREEA OVIEDO To: Sebas MEDRANO[facility] Subject: General:Dec appointment Yes, I will probably need that. Could you please call me at [phone] so we can give you an accurate update on my Cardiology status. I have all the paperwork and reports thanks /lisa/ AISHA SANDERS RN REGISTERED NURSE Signed: 01/16/2024 13:50 01/16/2024 ADDENDUM STATUS: COMPLETED [place] was seen in office with non-VA PCP Dr. Mae? found to be in a-flutter put on Eliquis BID cardioversion or ablation scheduled on Feb 04 with [facility] whom plan to also add amiodarone at that time. Will need renewal of Cardiology Consult. Consult entered, pending provider signature. /lisa/ AISHA SANDERS RN REGISTERED NURSE Signed: 01/16/2024 14:02 Receipt Acknowledged By: * AWAITING SIGNATURE * OMER MEDRANO LAUREN M [place] [facility]
--- OUTSIDE RECORDS SUMMARY | 2024-05-10 07:29 | XMS_ITS | Encounter Summary ---
Author Name [facility] ([place] Organization [facility] Address [address] [place] [id number] Care Team Providers Care Drill Press Set Up Operator Name Role Phone CHITO SEGURA Primary [...] PART A Feb 16, 2018 PART A [id number] YENNY OVIEDO ANDREW PATIENT MEDICARE (WNR) MEDICARE (M) PART B Feb 16, 2018 PART B [id number] [phone] YENNY OVIEDO ANDREW PATIENT MEDICARE (WNR) MEDICARE (M) PART A Oct 17, 2006 PART A [id number] YENNY OVIEDO PATIENT FOR LIFE TFL* Apr 06, 2018 [id number] YENNY OVIEDO PATIENT Selected Encounter This section includes the information on record at [place] for the Encounter. Date/Time Encounter Type Encounter Description Reason Provider Source Dec 01, 2023 08:00 AM OFFICE O/P EST LOW 20 MIN PODIATRY ICD-10-CM L60.3 Nail dystrophy JUVENAL ROSS [facility] Encounter Template Text not used by [place] Assessments - Encounter Diagnoses This section includes the primary and secondary diagnoses documented for the Encounter. 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 This section includes future appointments and future [...] 12, 2024 11:25 AM AM[place]ULATORY [place]ICINE [place] [facility] [place] [facility] Jan 12, 2024 11:40 AM [facility] [place] [facility] Jan 22, 2024 01:00 PM AMBULATORY - MEDICINE [facility] [place] [facility] Jan 29, 2024 08:45 AM AMBULATORY - MEDICINE [facility] [place] [facility] Feb 16, 2024 08:00 AM [facility]INE [facility] Feb 17, 2024 07:30 AM AMBULATORY - NONE [facility] [place] [facility] Mar 16, 2024 09:30 AM AMBULATORY - NONE [facility] [place] [facility] Mar 30, 2024 07:30 AM AMBULATORY - MEDICINE [facility] [place] [facility] Apr 06, 2024 09:00 AM [facility]ORY - [facility]ICINE [facility] Apr 12, 2024 08:00 AM [facility]ORY - [facility]ICINE [facility] Apr 12, 2024 11:00 AM AMBULATORY - MEDICINE [facility] [place] [facility] Apr 12, 2024 01:30 PM AM[place]UL[place]ORY [place]ICINE [place] [facility] [place] [facility] Apr 30, 2024 01:40 PM AMBULATORY - NONE [facility] [place] [facility] May 28, 2024 08:30 AM AMBULATORY [place]ICINE [place] [facility] [place] [facility] May 31, 2024 11:00 AM AMBULATORY [place]ICINE [place] [facility] [place] [facility] Jun 01, 2024 07:30 AM AMBULATORY - NONE [place] [facility] [place] [facility] Social History: Smoking Status (Most [...] Current Smoking Status Comment Facil ity Jul 22, 2022 10:00 AM VA-TOBACCO QUIT 15 YRS OR MORE [facility] Tobacco Use History This section includes a history of the smoking, or tobacco-related health factors, that were collected on or before the date of the Encounter. The data comes from the [place] facility where the Encounter took place. Date/Time Smoking Status/Tobacco Use Comment F acility Jul 22, 2022 10:00 AM VA-TOBACCO QUIT 15 YRS OR MORE [facility] Dec 02, 2018 09:23 AM VA-TOBACCO FORMER USER [facility] Dec 02, 2018 09:23 AM VA-TOBACCO QUIT 15 YRS OR MORE [facility] Apr 20, 2018 10:23 AM VA-TOBACCO FORMER USER [facility] Apr 20, 2018 10:23 AM VA-TOBACCO QUIT 15 YRS OR MORE [facility] Dec 16, 2016 08:40 AM QUIT TOBACCO USE > 7 YEARS AGO [facility] Jul 17, 2015 08:14 AM QUIT TOBACCO USE > 7 YEARS AGO quit many yrs ago [facility] Aug 04, 2009 08:22 AM QUIT TOBACCO USE > 7 YEARS AGO quit over ten years ago [facility] Dec 03, 2007 02:22 PM QUIT TOBACCO USE 1 -7 YEARS AGO [facility] May 21, 2007 08:03 AM QUIT TOBACCO USE 1 -7 YEARS AGO [facility] Jul 25, 2004 09:38 AM CURRENT SMOKER Smokes about 10 cigarettes/day, and trying to quit on his own [facility] Apr 27, 2004 01:32 PM LIFETIME NON-TOBACCO USER [facility] Advance Directives: All historical and current Section [...] 16, 2011 ADVANCE DIRECTIVE DISCUSSION MARGARITA TERRAZAS [facility] Encounter Notes: All associated encounter notes This section contains the clinical notes associated to the Encounter. Date/Time Encounter Note(s) Provider Source Dec 01, 2023 07:29 AM PODIATRY NOTE: LOCAL TITLE: PODIATRY NOTE STANDARD TITLE: PODIATRY NOTE DATE OF NOTE: DEC 01, 2023@07:29 ENTRY DATE: DEC 01, 2023@07:29:26 AUTHOR: JUVENAL ROSS COSIGNER: URGENCY: STATUS: COMPLETED NOTE: HAS RECEIVED BOTH COVID VACCINE DOSES + 3 BOOSTERS AT [facility] LAST SEEN FOR TREATMENT: 09/29/2023 S: Pt. is a 68yo alert WDWN [...] N/A *NOTE: A1c = 6.5 (LAST TAKEN: 11/2023) EPM=549BF RISK: 2 HEIGHT:249 lb [113.2 kg] (12/02/2019 [...] RECURRENT INFLAMMATION PLANTAR ARCH BILAT RT> LT AND HAS RESOLVED AT THIS TIME. VASCULAR: Exam reveals DP & PT pulses [...] present physical-medical status. Protective sensation utilizing a Giltner-Janak lOg monofilament is 10/10 bilateral. BIOMECHANICAL: Exam [...] due to the underlying medical conditions. RTC: (02/15 & 04/12 @ 8AM) ) *REVIEWED HOME FOOT CARE FEET ARE IN EXCELLENT CONDITION AND I PROVIDED HIM WITH WRITTEN RECOMMENDATIONS FOR FOOT CARE TO BE REVIEWED AT HOME (FOOT CARE TIPS). *DISCUSSED NEW PROTOCOLS AND CALLED [facility] TODAY FOR RESCHEDULING I DISCUSSED THE FINDINGS & PLAN WITH PATIENT (UNCHANGED SINCE PREVIOUS VISIT) & PATIENT AGREES AND UNDERSTANDS PLAN & RECEIVED MIRROR NOTE: POSTERIOR HEEL LESION HAS RESOLVED WITH NEW SHOES AND INSERTS Medication Reconciliation: PERFORMED TODAY - SEE BELOW. Outpatient: Has the patient been taking medications as documented in the EMLR? YES: The patient has been taking medications as documented in the EMLR. Essential Medication List for Review used to complete this medication reconciliation. INCLUDED IN THIS LIST: Alphabetical list of active outpatient prescriptions dispensed from this [place] (local) and dispensed from another [place] or [facility] facility (remote) as well as inpatient orders [...] FACILITY ALLERGY/ADR -------- CLNCL/HLTH RAJESH REPT EFF [id number] TAMSULOSIN [facility] [place] [facility] LISINOPRIL [...] [facility] [place] [facility] THIMEROSAL Med Recon NoGloary (Tool #1) INCLUDED IN THIS LIST: Alphabetical list of active outpatient prescriptions dispensed from this [facility] (local) and dispensed from another [place] or [facility] facility (remote) as well as inpatient orders (local pending and active), local clinic medications, locally documented non-VA medications, and local prescriptions that have or been discontinued in the past 90 days. Non-VA Meds Last Documented On: September 29, 2023 NOTE The display of VA prescriptions dispensed from another [place] or [facility] facility (remote) is limited to active outpatient prescription entries matched to National Drug File at the originating site and may not include some items such as investigational drugs, compounds, etc. NOT INCLUDED IN THIS LIST: Medications self-entered by the patient into personal health records (i.e. [employer]) are NOT included in this list. Non-VA medications documented outside this [place], remote inpatient orders (regardless of status) and [...] BY MOUTH EVERY EVENING FOR CHOLESTEROL Rx# [id number] Last Released: 09/17/23 Qty/Days Supply: Rx Expiration Date: 04/28/24 Refills Remainin Indication: FOR HIGH CHOLESTEROL Non-VA CHOLECALCIF 25MCG (D3-1,000UNIT) TAB TAKE ONE TABLET BY MOUTH ONCE DAILY Indication: FOR VITAMIN D DEFICIENCY OUTPT CYANOCOBALAMIN 1000MCG TAB (Status = Active/Suspended) TAKE ONE TABLET BY MOUTH ONCE DAILY Rx# [id number] Last Released: 10/01/23 Qty/Days Supply: Rx Expiration Date: 04/28/24 Refills Remainin Indication: FOR PREVENTION OF VITAMIN B12 DEFICIENCY Non-VA DICLOFENAC 1% GEL (EQV-VOLTAREN) GEL,TOP APPLY TOPICALLY FOUR TIMES A DAY OUTPT DILTIAZEM (EQV-CARDIZEM) 180MG 24HR CAP (Status = Active) TAKE ONE CAPSULE BY MOUTH ONCE DAILY Rx# [id number] Last Released: 11/12/23 Qty/Days Supply: Rx Expiration Date: 06/04/24 Refills Remainin OUTPT FINASTERIDE 5MG TAB (Status = Active/Suspended) TAKE ONE TABLET BY MOUTH DAILY FOR PROSTATE Rx# [id number] Last Released: 09/24/23 Qty/Days Supply: Rx Expiration Date: 02/19/24 Refills Remainin OUTPT FLUTICASONE PROP 50MCG 120D NASAL INHL (Status = Active) INSTILL 2 SPRAYS INTO EACH NOSTRIL ONCE DAILY NEEDED FOR NASAL IRRITATION/INFLAMMATION Rx# [id number] Last Released: 11/05/23 Qty/Days Supply: Rx Expiration Date: 07/21/24 Refills Remainin OUTPT KETOCONAZOLE 2% CREAM (Status = Active/Suspended) APPLY A THIN LAYER TOPICALLY TWICE DAILY FOR ATHLETE'S FOOT Rx# [id number] Last Released: 11/26/23 Qty/Days Supply: Rx Expiration Date: 06/13/24 Refills Remainin Indication: FOR ATHLETE'S FOOT OUTPT METFORMIN HCL 750MG 24HR SA TAB (Status = Active) TAKE TWO TABLETS BY MOUTH EVERY EVENING Rx# [id number] Last Released: 10/17/23 Qty/Days Supply: Rx Expiration Date: 07/21/24 Refills Remainin Indication: FOR TYPE 2 DIABETES MELLITUS OUTPT METOPROLOL SUCCINATE 25MG SA TAB (Status = Active/Suspended) TAKE ONE TABLET BY MOUTH TWICE DAILY FOR HEART FAILURE Rx# [id number] Last Released: 10/01/23 Qty/Days Supply: Rx Expiration Date: 04/28/24 Refills Remainin Indication: FOR CHRONIC HEART FAILURE OUTPT MICONAZOLE NITRATE 2% TOP PWDR (Status = Active) APPLY SMALL AMOUNT TOPICALLY TWICE DAILY FOR ATHLETE'S FOOT Rx# [id number] Last Released: 11/26/23 Qty/Days Supply: Rx Expiration Date: 07/03/24 Refills Remainin Indication: FOR ATHLETE'S FOOT OUTPT MOMETASONE 200MCG/ACTUAT 120D ORAL INHL (Status = Active/Suspended) INHALE 2 PUFFS BY MOUTH TWICE DAILY FOR CONTROLLER MEDICATION FOR ASTHMA --RINSE MOUTH AFTER EACH USE Rx# [id number] Last Released: 10/01/23 Qty/Days Supply: Rx Expiration Date: 04/23/24 Refills Remainin Indication: FOR CONTROLLER MEDICATION FOR ASTHMA OUTPT MONTELUKAST NA 10MG TAB (Status = Active/Suspended) TAKE ONE TABLET BY MOUTH EVERY EVENING FOR CONTROLLER MEDICATION FOR ASTHMA Rx# [id number] Last Released: 09/17/23 Qty/Days Supply: Rx Expiration Date: 04/28/24 Refills Remainin Indication: FOR CONTROLLER MEDICATION FOR ASTHMA OUTPT OMEPRAZOLE 20MG EC CAP (Status = Active) TAKE TWO CAPSULES BY MOUTH DAILY FOR STOMACH ACID Rx# [id number] Last Released: 11/05/23 Qty/Days Supply: Rx Expiration Date: 07/21/24 Refills Remainin Non-VA OTHER CAP/TAB TAKE BUTALBITAL BY MOUTH ONCE DAILY NEEDED About twice a year for headaches. Non-VA SAW PALMETTO CAP/TAB TAKE BY MOUTH OUTPT SEMAGLUTIDE 1MG/0.75ML INJ PEN 3ML (Status = Active) INJECT 1MG SUBCUTANEOUSLY ONCE A WEEK FOR TYPE 2 DIABETES MELLITUS Rx# [id number] Last Released: 11/12/23 Qty/Days Supply: 06/15 Rx Expiration Date: 06/09/24 Refills Remainin Indication: FOR TYPE 2 DIABETES MELLITUS OUTPT TADALAFIL 5MG TAB (Status = Active/Suspended) TAKE ONE TABLET BY MOUTH ONCE DAILY FOR BPH Rx# [id number] Last Released: 11/03/23 Qty/Days Supply: Rx Expiration Date: 07/21/24 Refills Remainin Indication: FOR ERECTILE DYSFUNTION OUTPT TERAZOSIN HCL 10MG CAP (Status = Active/Suspended) TAKE ONE CAPSULE BY MOUTH AT BEDTIME FOR BPH Rx# [id number] Last Released: 10/24/23 Qty/Days Supply: Rx Expiration Date: 07/21/24 Refills Remainin Non-VA TOLTERODINE TARTRATE 2MG SA CAP TAKE 1 CAPSULE BY MOUTH ONCE DAILY Non-VA medication not recommended by VA provider. OUTPT TRIAMCINOLONE ACETONIDE 0.1% CREAM (Status = Active) APPLY A THIN LAYER TOPICALLY TWICE DAILY FOR ITCHING Rx# [id number] Last Released: 10/29/23 Qty/Days Supply: 454/90 Rx Expiration Date: 06/09/24 Refills Remainin Indication: FOR ITCHING OUTPT WATER STERILE FOR IRRIGATION (Status = Active) IRRIGATE MODERATE AMOUNT DIRECTED ONCE DAILY FOR C-PAP MACHINE Rx# [id number] Last Released: 10/31/23 Qty/Days Supply: 05504/60 Rx Expiration Date: 07/21/24 Refills Remainin SUPPLIES OUTPT ACCU-CHEK GUIDE (GLUCOSE) TEST STRIP (Status = Active) USE 1 STRIP TO TEST BLOOD SUGARS TWO TIMES A WEEK Rx# [id number] Last Released: 11/12/23 Qty/Days Supply: 50/180 Rx Expiration Date: 06/03/24 Refills Remainin Indication: DIABETES MELLITUS /es/ JUVENAL ROSS 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
--- OUTSIDE RECORDS SUMMARY | 2024-05-10 07:30 | XMS_ITS | Encounter Summary ---
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 [place] [facility] [place] [facility] [place] Address [address] [place] [id number] Care Team Providers Care Boom Worker Name Role Phone CHITO SEGURA Primary [...] PART A Feb 16, 2018 PART A [id number] YENNY OVIEDO ES PATIENT MEDICARE (WNR) MEDICARE (M) PART B Feb 16, 2018 PART B [id number] YENNY OVIEDO ES PATIENT MEDICARE (WNR) MEDICARE (M) PART A Oct 17, 2006 PART A [id number] [facility] YENNY OVIEDO PATIENT FOR LIFE TFL* Apr 06, 2018 [id number] YENNY OVIEDO PATIENT Selected Encounter This section includes the information on record at [place] for the Encounter. Date/Time Encounter Type Encounter Description Reason Provider Source May 27, 2023 01:30 PM THERAPEUTIC EXERCISES OCCUPATIONAL THERAPY ICD-10-CM M25.312 Other instability, left shoulder MACHON,DEENA E IHE Encounter Template Text not used by [place] Assessments - Encounter Diagnoses This section includes the primary and secondary diagnoses documented for the Encounter. Date/Time Primary/Secondary Diagnosis Diagnosis Name Provider Source May 27, 2023 04:23 PM PRIMARY Other instability, left shoulder MACHON,DEENA E [place] [facility] [place] [facility] Plan of Treatment: Future Appointments (+ 6 months) and Future Tests (+/- 45 days) The Plan of Treatment section includes future care activities for the patient from all [place] [facility] This section includes future appointments and future orders which are active, pending or scheduled. Future Appointments This section includes appointments that were scheduled to occur 6 months from the date of the Encounter, up to a maximum of 20 appointments. The data comes from all [place] treatment facilities. Appointment Date/Time Appointment Type Appointme nt Facility Name May 30, 2023 10:00 AM AMBULATORY - MEDICINE [place] [facility] [place] [facility] Jun 03, 2023 03:30 PM AMBULATORY - REHAB MEDICIN [facility] [place] [facility] Jun 04, 2023 10:00 AM AMBULATORY - MEDICINE [facility] Jun 09, 2023 08:00 AM AMBULATORY - MEDICINE [facility] Jun 09, 2023 08:30 AM AMBULATORY - MEDICINE [facility] Jun 09, 2023 02:30 PM AMBULATORY - REHAB MEDICIN E [facility] [place] [facility] Jun 16, 2023 08:00 AM AMBULATORY - REHAB MEDICIN E [facility] [place] [facility] Jun 23, 2023 07:30 AM AMBULATORY - REHAB MEDICIN E [facility] [place] [facility] Jun 23, 2023 08:00 AM AMBULATORY - MEDICINE [facility] [place] [facility] Jul 04, 2023 09:00 AM AMBULATORY - REHAB MEDICIN E [facility] [place] [facility] Jul 08, 2023 10:00 AM AMBULATORY - REHAB MEDICIN E [facility] [place] [facility] Jul 17, 2023 08:30 AM AMBULATORY - REHAB MEDICIN E [facility] [place] [facility] Jul 17, 2023 12:00 PM AMBULATORY - NONE [facility] [place] [facility] Jul 21, 2023 01:30 PM AMBULATORY - MEDICINE [facility] [place] [facility] Jul 24, 2023 08:30 AM AMBULATORY - REHAB MEDICIN E [facility] [place] [facility] Jul 31, 2023 08:30 AM AMBULATORY - REHAB MEDICIN E [facility] [place] [facility] Aug 04, 2023 08:00 AM AMBUL[place]ORY - MEDICINE [place] [place] Aug 04, 2023 08:30 AM AMBUL[place]ORY - MEDICINE [place] [place] Aug 06, 2023 09:00 AM AMBULATORY - REHAB MEDICIN E [facility] [place] [facility] Aug 20, 2023 08:30 AM AMBULATORY - [facility]ICIN [facility] Lab Results: +/- 30 days of the encounter This section includes the Chemistry and Hematology Lab Results on record with [place] for the patient. Radiology Reports and Pathology Reports are provided separately, in subsequent sections. Lab Results This section contains the Chemistry/Hematology Results that were resulted 30 days before or 30 daysafter the date of the Encounter. Date/Time Source Result Type Result - Unit Interpretation Reference Range Comment Apr 29, 2023 07:36 AM [facility] HEMOGLOBIN A1C PANEL Specimen Type: BLOOD Comment: Values obtained from A1C measurements can vary. For atypical A1C assays, a reported value of 7.0 could actually be between 6.72 and 7.28 if measured by a reference method. A reported value of 9.0 could actually be between 8.73 and 9.27. Ref: http://www.ngs p.org/CAPdata. asp Ordering Provider: AYUSH SEGURA Report Released Date/Time: Apr 16, 2023 11:31 AM Reporting Lab: [place] [facility] [address] [address] Performing Lab: [facility] [address] [address] HEMOGLOBIN A1C 7.6 H 4.0-5.6 Apr 29, 2023 07:36 AM [facility] MICROALBUMIN CREATININE RATIO PANEL Specimen Type: URINE No comment entered. Ordering Provider: AYUSH SEGURA F Report Released Date/Time: Apr 16, 2023 11:31 AM Reporting Lab: [address] [address] Performing Lab: [address] [address] MICROALBUMIN/C REATININE RATIO 28.3 mg/g 0-29.9 MICROALBUMIN,Q UANTITATIVE 3.4 mg/dL RR UNAVAIL CREATININE URINE 120.12 mg/dL Apr 29, 2023 07:36 AM [facility] LIVER FUNCTION Specimen Type: SERUM No comment entered. Ordering Provider: AYUSH SEGURA F Report Released Date/Time: Apr 16, 2023 11:31 AM Reporting Lab: [address] [address] Performing Lab: [address] [address] PROTEIN,TOTAL 6.7 g/dL 6.0-8.3 ALBUMIN 3.6 g/dL 3.5-5.0 ALKALINE PHOSPHATASE 43 U/L 40-150 AST 14 U/L 5-34 ALT 16 U/L BILIRUBIN, TOTAL 0.7 mg/dL 0.2-1.2 Apr 29, 2023 07:36 AM [facility] BASIC METABOLIC PANEL (fasting) Specimen Type: SERUM No comment entered. Ordering Provider: AYUSH SEGURA F Report Released Date/Time: Apr 16, 2023 11:31 AM Reporting Lab: [address] [address] Performing Lab: [address] [address] UREA NITROGEN 14 mg/dL 7-25 GLUCOSE 135 mg/dL H 65-100 SODIUM 139 mmol/L 135-145 POTASSIUM 4.0 mmol/L 3.5-5.0 CHLORIDE 106 mmol/L 100-110 CO2 24 meq/L 20-30 CREATININE, Serum 0.71 mg/dL 0.50-1.40 eGFR(CKD-EPI 2020) >90 mL/min >60 Apr 29, 2023 07:36 AM [facility] LIPID PANEL FASTING Specimen Type: SERUM No comment entered. Ordering Provider: AYUSH SEGURA F Report Released Date/Time: Apr 16, 2023 11:31 AM Reporting Lab: [facility] [address] [address] Performing Lab: [facility] [address] [address] CHOLESTEROL 119 mg/dL TRIGLYCERIDE 121 mg/dL 0-150 LDL calculated 53 mg/dL 0-129 CHOL/HDL 2.8 HDL CHOLESTEROL 42 mg/dL 40-60 Apr 29, 2023 07:36 AM [facility] URINALYSIS Specimen Type: URINE Comment: If Glucose = >500 and Ketones are positive, please alert the Physician. Ordering Provider: AYUSH SEGURA F Report Released Date/Time: Apr 16, 2023 11:31 AM Reporting Lab: [facility] [address] [address] Performing Lab: [facility] [address] [address] UA COLOR Yellow Yellow UA APPEARANCE Clear Clear UA GLUCOSE NEGATIVE mg/dL Negative UA KETONES NEGATIVE mg/dL Negative UA BLOOD NEGATIVE mg/dL Negative UA PROTEIN NEGATIVE mg/dL Negative UA NITRITE NEGATIVE mg/dL Negative UA BILIRUBIN NEGATIVE mg/dL Negative UA SPECIFIC GRAVITY 1.024 H 1.016-1.02 2 UA pH 5.5 5.0-9.0 UA UROBILINOGEN <2.0 mg/dL <2.0 UA LEUKOCYTE NEGATIVE Negative Apr 29, 2023 07:36 AM [facility] CBC AND DIFF (AUTO) Specimen Type: BLOOD No comment entered. Ordering Provider: AYUSH SEGURA F Report Released Date/Time: Apr 16, 2023 11:31 AM Reporting Lab: [facility] [address] [address] Performing Lab: [facility] [address] [address] WBC 6.37 10*3/uL 4.50-11.00 RBC 4.63 10*6/uL 4.23-5.66 HGB 13.9 g/dL 12.8-17 HCT 41.1 39.2-50.4 MCV 88.8 fL 82-99 MCHC 33.8 g/dL 30.8-35.1 PLT 126 10*3/uL L 140-360 RDW-CV 13.4 12.0-16.0 [place], Abs 0.47 10*3/uL 0.30-1.10 MCH 30.0 pg 26.2-32.6 Neut % 73.5 43.7-75.8 Lymph % 15.5 14.0-42.3 [place] % 7.4 5.1-13.7 Eos % 2.7 0.4-6.8 Baso % 0.6 0.1-2.0 Neut, Abs 4.68 10*3/uL 2.20-7.60 Lymph, Abs 0.99 10*3/uL L 1.00-3.20 Eos, Abs 0.17 10*3/uL 0.03-0.44 Baso, Abs 0.04 10*3/uL 0.01-0.13 Immature Gran % 0.3 0.0-0.7 Immature Gran, Abs 0.02 10*3/uL 0.00-0.06 Social History: Smoking Status (Most current) and Tobacco Use (All prior to encounter date) This section includes the most current, and the historical, smoking and tobacco- related health factors from the [place] facility where the Encounter took place. Current Smoking Status This section includes the most current smoking, or tobacco-related health factor, from the [place] facility where the Encounter took place. Date/Time Current Smoking Status Comment Facil ity Mar 28, 2021 03:28 PM VA-TOBACCO FORMER USER [facility] Tobacco Use History This section includes a history of the smoking, or tobacco-related health factors, that were collected on or before the date of the Encounter. The data comes from the [place] facility where the Encounter took place. Date/Time Smoking Status/Tobacco Use Comment F acility Mar 28, 2021 03:28 PM IN-TOBACCO QUIT 15 YRS OR MORE [facility] Dec 02, 2019 09:36 AM VA-TOBACCO NEVER USED [facility] Apr 23, 2005 10:19 AM QUIT TOBACCO USE IN PAST YEAR [facility] Advance Directives: All historical and current Section Date Range: From patient's date of to the date document was created. This section includes ALL of a patient's completed or amended [place] Advance and Rescinded Directives. The entries below indicate that a directive exists for the patient, but an actual copy is not included with this document. The data comes from all [place] facilities. Date Advance Directives Provider Source Dec 16, 2011 ADVANCE DIRECTIVE DISCUSSION MARGARITA TERRAZAS NECHE Encounter Notes: All associated encounter notes This section contains the clinical notes associated to the Encounter. Date/Time Encounter Note(s) Provider Source May 27, 2023 11:02 AM OCCUPATIONAL MEDICINE CONSULT: LOCAL TITLE: CONSULT REPORT/OCCUPATIONAL THERAPY STANDARD TITLE: OCCUPATIONAL MEDICINE CONSULT DATE OF NOTE: MAY 27, 2023@11:02 ENTRY DATE: MAY 27, 2023@11:03:27 AUTHOR: DEENA PIKE COSIGNER: GEMA MOORE URGENCY: STATUS: COMPLETED Initial Evaluation date: May Progress Note Date: Treatment #: eval Treatment time: 50 minutes Diagnosis: Other Instability, left Shoulder(ICD-10-CM M25.312) Provider: Miracle Moore [facility] OT Treatment Precautions: Patient identified by full name and date of Received fax from [place] orthopedic Surgeon, Dr Rausch, for PT evaluation and treatment for left shoulder instability. Special instructions: passive/active ROM and gentle therabands. 15 weeks 4 days post-op S: Mr. Oviedo is a 68 y/o 80% SC male who was referred to OT for L non- dominant shoulder pain. He was seen in the OT clinic on 05/27/2023. PMH: Active problems - Computerized Problem List is the source for the followin. Palpitations 2. SAS - Sleep apnea syndrome 3. COPD - Chronic Obstructive Pulmonary Disease (SCT 74677998) 4. Gastroesophageal reflux disease 5. Benign localized hyperplasia of prostate 6. Deficiency of vitamin D3 7. Thrombocytopenia 8. Diabetes mellitus type 2 (SNOMED CT 83562984) 9. Disorder of rotator cuff 10. Lumbar Radiculopathy 11. Diverticulitis, Colonic * 12. Gastroesophageal Reflux Disorder 13. Degenerative arthritis (SNOMED CT 675355398) 14. Mitral Valve Prolapse 15. Hyperlipidaemia (SNOMED CT 51592287) 16. Benign essential hypertension (SNOMED CT 2437832) 17. Obesity 18. Posttraumatic Stress Disorder 19. Panic Attacks GWENDOLYN: pt reports that he had shoulder surgery on 02/07/2023; he reports that the therapy was subpar. acromioplasty, RTC repair. he is having pain and he is trying to get into strengthening mode. he had previous surgery (open RTC repair) and arthroscopic repair. he has to assist his L arm w/ his R when lifting heavy items. Imaging: none in CPRS Pain Level: 1/10 at rest, increasing to 5/10 at worst Pain Location: anterolateral shoulder Aggravating Factors: too much activity, sleeping on it just right Alleviating Factors: heat O: Pt is R hand dominant. 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 He enjoys walking and bike riding. Enjoys camping w/ his trailer. Clinical Presentation: rounded shoulders, FHP pt ambulates w/ a cane. mild infra/supra atrophy noted b/l Palpation: ttp and tightness noted over anterior shoulder muscualture AROM: Shoulder: [R] [L] Flexion: WNL 99* Abduction: WNL 76* IR: WNL L4 ER: WNL C5 *pt denies pain MMT: Shoulder: NT Special Tests: NT Sensation: denies paresthesia's; intact to light touch. TX: *MHP x3' to L shoulder prior to tx *UBE 2' forward, 2' backward 1.0 *hiram into flexion, w/ 10 second hold on L, x10 *wall ladder into abduction, 30x5 *wall slides into flexion, 1x10 *supine shoulder flexion, 1x10 *supine chest press, 1x10 Access Code: [email or web address] URL: [email or web address] Date: 05/27/2023 Prepared by: [facility] Exercises - Standing Shoulder Abduction Finger Walk at Wall - 1 x daily - 7 x weekly - 3 sets - 10 reps - Shoulder Flexion Wall Slide with Towel - 1 x daily - 7 x weekly - 3 sets - 10 reps - Supine Shoulder Flexion AAROM with Dowel - 1 x daily - 7 x weekly - 3 sets - 10 reps - Supine Shoulder Press - 1 x daily - 7 x weekly - 3 sets - 10 reps ASSESSMENT: Edwar is a 68 y/o male whom presents to the OT clinic 15 weeks 4 days post arthroscopic RTC repair and acromioplasty. his AROM is not where it is to be expected d/t disrupted rehab process. He tolerated tx well and was motivated to improve his ROM, strength and functional use of his L non-dominant UE. O.T. 1x/wk x 4-6 wks with treatment to include: - A/AA/PROM - Stretching and Strengthening (lucia. RC and cheri-scap mms) - Manual techniques (including jt. mobs, stretching, TPR, STM) - Modalities (including ice, heat, US, TENS) - Pt. education (HEP, postural ed.) All interventions prn, as indicated by pt. condition. Short term goals (4 weeks): 1. (I) w/ HEP 2. Pt will perform prone scap ther ex I'ly 3. ROM: Increase shoulder PROM to WFL all motions 4. 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 R shoulder perform active shoulder flexion movement w/o compensation 2. ROM: WFL actively 3. Strength: 5/5 for flexion/abd w/o sig increase in pain The practitioner's co-signature on this note signifies agreement with plan of care and clinical diagnosis code. /lisa/ Deena Pike, MS OTR/L, CHT Occupational Therapist Signed: 05/27/2023 16:23 /lisa/ GEMA MOORE MD PRIMARY CARE PHYSICIAN Cosigned: 06/12/2023 08:34 DEENA PIKE [facility]
--- OUTSIDE RECORDS SUMMARY | 2024-05-10 07:30 | XMS_ITS ---
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 [place] [facility] [place] Address [address] [place] [address] Care Team Providers Care Hotel Night Auditor Name Role Phone OMER MEDRANO Primary Care [...] PART A Feb 16, 2018 PART A [id number] [phone] YENNY OVIEDO PATIENT MEDICARE (WNR) MEDICARE (M) PART B Feb 16, 2018 PART B [id number] YENNY OVIEDO PATIENT MEDICARE (WNR) MEDICARE (M) PART A Oct 17, 2006 PART A [id number] [phone] YENNY OVIEDO PATIENT FOR LIFE TFL* Apr 06, 2018 [id number] YENNY OVIEDO PATIENT Selected Encounter This section includes the information on record at [place] for the Encounter. Date/Time Encounter Type Encounter Description Reason Pro vider Source Feb 03, 2024 01:13 PM Outpatient Encounter TELEPHONE CASE MANAGEMENT IHE Encounter Template Text not used by [place] Plan of Treatment: Future Appointments (+ 6 months) and Future Tests (+/- 45 days) The Plan of Treatment section includes future care activities for the patient from all [place] [facility]. This section includes future appointments [...] AMBULATORY - NONE [place] [facility] [place] [facility] Mar 16, 2024 09:30 AM AMBULATORY - NONE [place] [facility] [place] [facility] Mar 30, 2024 07:30 AM AMBULATORY - MEDICINE [place] [facility] [place] [facility] Apr 06, 2024 09:00 AM [facility]ORY - [facility]ICINE [facility] Apr 12, 2024 08:00 AM AMBULATORY - MEDICINE [facility] Apr 12, 2024 11:00 AM AMBULATORY - MEDICINE [place] [facility] Apr 12, 2024 01:30 PM AMBULATORY - MEDICINE [place] [place] [facility] Apr 30, 2024 01:40 PM AMBULATORY - NONE [place] [facility] [place] [facility] May 28, 2024 08:30 AM AMBULATORY - MEDICINE [place] [place] [facility] May 31, 2024 11:00 AM AMBULATORY - MEDICINE [place] [facility] [place] [place] [facility] Jun 01, 2024 07:30 AM AMBULATORY - NONE [place] [facility] [place] [facility] Jun 28, 2024 08:00 AM [facility] Lab Results: +/- 30 days [...] 2024 07:43 AM [place] [facility] [place] [facility] CREATININE (eGFR 2020) Specimen Type: SERUM No comment entered. Ordering Provider: AYUSH MEDRANO F Report Released Date/Time: Feb 23, 2024 02:44 PM Reporting Lab: [facility] [address] [address] Performing Lab: [address] [address] CREATININE, Serum 0.84 mg/dL 0.50-1.40 eGFR(CKD-EPI 2020) >90 mL/min >60 Feb 27, 2024 07:43 AM [facility] LIVER FUNCTION Specimen Type: SERUM No comment entered. Ordering Provider: AYUSH MEDRANOM F Report Released Date/Time: Feb 23, 2024 02:44 PM Reporting Lab: [address] [address] Performing Lab: [address] [address] PROTEIN,TOTAL 6.3 g/dL 6.0-8.3 ALBUMIN 3.5 g/dL 3.5-5.0 ALKALINE PHOSPHATASE 45 U/L 40-150 AST 19 U/L 5-34 ALT 23 U/L BILIRUBIN, TOTAL 0.6 mg/dL 0.2-1.2 Feb 27, 2024 07:43 AM [facility] PT & INR (COUMADIN) Specimen Type: PLASMA No comment entered. Ordering Provider: AYUSH MEDRANO F Report Released Date/Time: Feb 23, 2024 02:44 PM Reporting Lab: [address] [address] Performing Lab: [address] [address] INR 1.4 PROTIME 15.4 s H 10.0-13.1 Feb 27, 2024 07:43 AM [facility] CBC Specimen Type: BLOOD No comment entered. Ordering Provider: AYUSH MEDRANO F Report Released Date/Time: Feb 23, 2024 02:44 PM Reporting Lab: [facility] [address] [address] Performing Lab: [address] [address] WBC 6.44 10*3/uL 4.50-11.00 RBC 4.42 10*6/uL 4.23-5.66 HGB 13.1 g/dL 12.8-17 HCT 38.8 L 39.2-50.4 MCV 87.8 fL 82-99 MCHC 33.8 g/dL 30.8-35.1 PLT 116 10*3/uL L 140-360 RDW-CV 14.6 12.0-16.0 MCH 29.6 pg 26.2-32.6 Jan 05, 2024 07:32 AM [facility] LIVER FUNCTION Specimen Type: SERUM No comment entered. Ordering Provider: AYUSH MEDRANO F Report Released Date/Time: Jul 21, 2023 02:25 PM Reporting Lab: [address] [address] Performing Lab: [address] [address] PROTEIN,TOTAL 6.3 g/dL 6.0-8.3 ALBUMIN 3.6 g/dL 3.5-5.0 ALKALINE PHOSPHATASE 39 U/L L 40-150 AST 13 U/L 5-34 ALT 15 U/L BILIRUBIN, TOTAL 1.0 mg/dL 0.2-1.2 Jan 05, 2024 07:32 AM [facility] BASIC METABOLIC PANEL (fasting) Specimen Type: SERUM No comment entered. Ordering Provider: AYUSH MEDRANO F Report Released Date/Time: Jul 21, 2023 02:25 PM Reporting Lab: [address] [address] Performing Lab: [address] [address] UREA NITROGEN 21 mg/dL 7-25 GLUCOSE 126 mg/dL H 65-100 SODIUM 139 mmol/L 135-145 POTASSIUM 3.9 mmol/L 3.5-5.0 CHLORIDE 107 mmol/L 100-110 CO2 22 meq/L 20-30 CREATININE, Serum 0.68 mg/dL 0.50-1.40 eGFR(CKD-EPI 2020) >90 mL/min >60 Jan 05, 2024 07:32 AM [facility] LIPID PANEL FASTING Specimen Type: SERUM No comment entered. Ordering Provider: AYUSH MEDRANO F Report Released Date/Time: Jul 21, 2023 02:25 PM Reporting Lab: [facility] [address] [address] Performing Lab: [facility] [address] [address] CHOLESTEROL 116 mg/dL TRIGLYCERIDE 73 mg/dL 0-150 LDL calculated 62 mg/dL 0-129 CHOL/HDL 3.0 HDL CHOLESTEROL 39 mg/dL L 40-60 Jan 05, 2024 07:32 AM [facility] MICROALBUMIN CREATININE RATIO PANEL Specimen Type: URINE No comment entered. Ordering Provider: AYUSH MEDRANO F Report Released Date/Time: Jul 21, 2023 02:25 PM Reporting Lab: [facility] [address] [address] Performing Lab: [facility] [address] [address] MICROALBUMIN/C REATININE RATIO 45.9 mg/g H 0-29.9 MICROALBUMIN,Q UANTITATIVE 5.0 mg/dL RR UNAVAIL CREATININE URINE 108.91 mg/dL Jan 05, 2024 07:32 AM [facility] PSA Specimen Type: SERUM No comment entered. Ordering Provider: AYUSH MEDRANO F Report Released Date/Time: Jul 21, 2023 02:25 PM Reporting Lab: [facility] [address] [address] Performing Lab: [address] [address] PSA < 0.10 ng/mL 0.00-4.00 Jan 05, [...] Jul 21, 2023 02:25 PM Reporting Lab: [address] [address] Performing Lab: [address] [address] HEMOGLOBIN A1C 6.1 H 4.0-5.6 Jan 05, 2024 07:32 AM [facility] URINALYSIS Specimen Type: URINE Comment: If Glucose = >500 and Ketones are positive, please alert the Physician. Ordering Provider: AYUSH MEDRANO Report Released Date/Time: Jul 21, 2023 02:25 PM Reporting Lab: [address] [address] Performing Lab: [address] [address] UA COLOR Yellow Yellow UA APPEARANCE Clear [...] 01:30 PM VA-TOBACCO FOR[facility]ER [facility] Tobacco Use History This section includes a history of the smoking, or tobacco-related health factors, that were collected on or before the date of the Encounter. The data comes from the [place] facility where the Encounter took place. Date/Time Smoking Status/Tobacco Use Comment F acility Jul 21, 2023 01:30 PM VA-TOBACCO QUIT 15 YRS OR MORE [facility] Mar 28, 2021 03:28 PM VA-TOBACCO FORMER USER [place] [facility] [facility] Mar 28, 2021 03:28 PM VA-TOBACCO QUIT 15 YRS OR MORE NV CNT [facility] Dec 02, 2019 09:36 AM VA-TOBACCO NEVER USED [place] CNTR [facility] Apr 23, 2005 10:19 AM [...] 2011 ADVANCE DIRECTIVE DISCUSSION MARGARITA TERRAZAS [place] Encounter Notes: All associated encounter notes This section contains the clinical notes associated to the Encounter. Date/Time Encounter Note(s) Provider Source Feb 03, 2024 01:13 PM TRANSFER SUMMARIZA TION NOTE: LOCAL TITLE: CUSTODIAL MANAGER/OCC/HOSPITAL NOTIFICATION NOTE STANDARD TITLE: TRANSFER SUMMARIZATION NOTE DATE OF NOTE: FEB 03, 2024@13:13 ENTRY DATE: FEB 03, 2024@13:13:21 AUTHOR: SUSAN JASSO EXP COSIGNER: URGENCY: STATUS: COMPLETED CUSTODIAL MANAGER/OCC/HOSPITAL NOTIFICATION NOTE Has ADDENDA presented to [facility] on 01/31 for CHF exacerbation afib and URI. revceived Utilization review fax. /es/ SUSAN JASSO Registered Nurse Validation Analyst Signed: 02/03/2024 13:17 Receipt Acknowledged By: 02/05/2024 16:48 /es/ Omer Medrano PA-C STAFF PHYSICIAN MANAGER REHAB 02/03/2024 13:29 /es/ AISHA SANDERS, RN REGISTERED NURSE 03/25/2024 ADDENDUM STATUS: COMPLETED was discharged on 02/04 to home no services. No additional information was provided. /lisa/ SUSAN JASSO Registered Nurse Validation Analyst Signed: 03/25/2024 13:00 SUSAN JASSO [place] [facility]
--- OUTSIDE RECORDS SUMMARY | 2024-05-10 07:30 | XMS_ITS ---
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 [place] Organization [place] Address [address] [place] [address] Care Team Providers Care Miter Sawyer Name Role Phone OMER MEDRANO Primary Care [...] PART A Feb 16, 2018 PART A [id number] YENNY OVIEDO PATIENT MEDICARE (WNR) MEDICARE (M) PART B Feb 16, 2018 PART B [id number] YENNY OVIEDO ES PATIENT MEDICARE (WNR) MEDICARE (M) PART A Oct 17, 2006 PART A [id number] YENNY OVIEDO PATIENT FOR LIFE TFL* Apr 06, 2018 [id number] YENNY OVIEDO PATIENT Selected Encounter This section includes the information on record at [place] for the Encounter. Date/Time Encounter Type Encounter Description Reason Pro vider Source Feb 04, 2024 06:29 AM Outpatient Encounter COMMUNITY CARE CONSULT IHE Encounter Template Text not used by [place] Plan of Treatment: Future Appointments (+ 6 months) and Future Tests (+/- 45 days) The Plan of Treatment section includes future care activities for the patient from all [place] [facility]. This section includes future appointments and future orders which are active, pending or scheduled. Future Appointments This section includes appointments that were scheduled to occur 6 months from the date of the Encounter, up to a maximum of 20 appointments. The data comes from all [place] treatment facilities. Appointment Date/Time Appointment Type Appointme nt Facility Name Feb 16, 2024 08:00 AM [facility] Feb 17, 2024 07:30 AM AMBULATORY - NONE [place] [facility] [place] [place] [facility] Mar 16, 2024 09:30 AM AMBULATORY - NONE [place] [facility] [place] [facility] Mar 30, 2024 07:30 AM AMBULATORY - MEDICINE [place] [place] [facility] Apr 06, 2024 09:00 AM [facility]ULATORY - MEDICINE [facility] Apr 12, 2024 08:00 AM AMBULATORY - MEDICINE [facility] Apr 12, 2024 11:00 AM AMBULATORY - MEDICINE [place] [facility] [place] [facility] Apr 12, 2024 01:30 PM AMBULATORY - MEDICINE [place] [facility] [place] [facility] Apr 30, 2024 01:40 PM AMBULATORY - NONE [place] [facility] [place] [facility] May 28, 2024 08:30 AM AMBULATORY - MEDICINE [place] [facility] [place] [facility] May 31, 2024 11:00 AM AMBULATORY - MEDICINE [place] [facility] [place] [facility] Jun 01, 2024 07:30 AM AMBULATORY - NONE [place] [facility] [place] [facility] Jun 28, 2024 08:00 AM [facility] Lab Results: +/- 30 days of the encounter This section includes the Chemistry and Hematology Lab Results on record with [place] for the patient. Radiology Reports and Pathology Reports are provided separately, in subsequent sections. Lab Results This section contains the Chemistry/Hematology Results that were resulted 30 days before or 30 daysafter the date of the Encounter. Date/Time Source Result Type Result - Unit Interpretation Reference Range Comment Feb 27, 2024 07:43 AM [place] [facility] [facility] CREATININE (eGFR 2020) Specimen Type: SERUM No comment entered. Ordering Provider: ELIEL MEDRANO Report Released Date/Time: Feb 23, 2024 02:44 PM Reporting Lab: [address] [address] Performing Lab: [address] [address] CREATININE, Serum 0.84 mg/dL 0.50-1.40 eGFR(CKD-EPI 2020) >90 mL/min >60 Feb 27, 2024 07:43 AM [facility] PT & INR (COUMADIN) Specimen Type: PLASMA No comment entered. Ordering Provider: ELIEL MEDRANO Report Released Date/Time: Feb 23, 2024 02:44 PM Reporting Lab: [address] [address] Performing Lab: [address] [address] INR 1.4 PROTIME 15.4 s H 10.0-13.1 Feb 27, 2024 07:43 AM [facility] LIVER FUNCTION Specimen Type: SERUM No comment entered. Ordering Provider: ELIEL MEDRANO Report Released Date/Time: Feb 23, 2024 02:44 PM Reporting Lab: [address] [address] Performing Lab: [address] [address] PROTEIN,TOTAL 6.3 g/dL 6.0-8.3 ALBUMIN 3.5 g/dL 3.5-5.0 ALKALINE PHOSPHATASE 45 U/L 40-150 AST 19 U/L 5-34 ALT 23 U/L BILIRUBIN, TOTAL 0.6 mg/dL 0.2-1.2 Feb 27, 2024 07:43 AM [facility] CBC Specimen Type: BLOOD No comment entered. Ordering Provider: ELIEL MEDRANO Report Released Date/Time: Feb 23, 2024 02:44 PM Reporting Lab: [place] [facility] [place] [facility] [address] [facility] [address] Performing Lab: [place] [facility] [facility] [address] [facility] [address] WBC 6.44 10*3/uL 4.50-11.00 RBC 4.42 10*6/uL [...] and tobacco- related health factors from the [place] facility where the Encounter took place. Current Smoking Status This section includes the most current smoking, or tobacco-related health factor, from the [place] facility where the Encounter took place. Date/Time Current Smoking Status Comment Facil ity Jul 21, 2023 01:30 PM VA-TOBACCO FOR[facility] Tobacco Use History This section includes a history of the smoking, or tobacco-related health factors, that were collected on or before the date of the Encounter. The data comes from the [place] facility where the Encounter took place. Date/Time Smoking Status/Tobacco Use Comment F acility Jul 21, 2023 01:30 PM VA-TOBACCO QUIT 15 YRS OR MORE [place] [facility] [place] [facility] Mar 28, 2021 03:28 PM VA-TOBACCO FORMER USER [place] [facility] [place] [facility] Mar 28, 2021 03:28 PM VA-TOBACCO QUIT 15 YRS OR MORE [place] [facility] [place] [facility] Dec 02, 2019 09:36 AM VA-TOBACCO NEVER USED [place] [facility] [place] [facility] Apr 23, 2005 10:19 AM QUIT TOBACCO USE IN PAST YEAR [facility] Advance Directives: All historical and current Section Date Range: From patient's date of to the date document was created. This section includes ALL of a patient's completed or amended [place] Advance and Rescinded Directives. The entries below indicate that a directive exists for the patient, but an actual copy is not included with this document. The data comes from all [place] facilities. Date Advance Directives Provider Source Dec 16, 2011 ADVANCE DIRECTIVE DISCUSSION MARGARITA TERRAZAS [place] Encounter Notes: All associated encounter notes This section contains the clinical notes associated to the Encounter. Date/Time Encounter Note(s) Provider Source Feb 04, 2024 06:29 AM NONVA NOTE: [facility] PRESENTING CARE COORD PLAN STANDARD TITLE: NONVA NOTE DATE OF NOTE: FEB 04, 2024@06:29 ENTRY DATE: FEB 04, 2024@06:29:55 AUTHOR: AGUSTIN HI EXP COSIGNER: URGENCY: STATUS: COMPLETED Emergency Notification Intake Date Presenting to the Facility: Jan Method of Contact: Notified from ECR worklist Notification ID: [id number] [facility] Referral [facility]: [facility] Name: Hospital: [facility] Address: City: [place] State: [place] Zip Code: Phone : Community Facility Point of Contact: Name: LENIN SINGH Phone: Chief complaint: SORE THROAT REDNESS Primary Diagnosis: Disposition Admitted Route of Admission: ER Date of Admission: Jan Admitting Diagnosis: CHF EXACERBATION, AFIB SLOW VR Community Care Provider: Confirm Level of Care: /lisa/ AGUSTIN HI CARE IN THE COMMUNITY RELATIONS Signed: 02/04/2024 06:31 Receipt Acknowledged By: 02/06/2024 07:45 /es/ SANDER ABRAHAM REGISTERED NURSE for AISHA SANDERS 02/11/2024 07:44 /es/ Meliza Silva MSN,RN,[facility] TRANSFER/TRAVELING COORDINATOR 02/05/2024 16:48 /lisa/ Omer Medrano PA-C STAFF PHYSICIAN DIRECTOR OF CONSERVATION AGUSTIN HI
--- OUTSIDE RECORDS SUMMARY | 2024-05-10 07:30 | XMS_ITS | Encounter Summary ---
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 [place] Organization [facility] [place] Address [address] [place] [address] Care Team Providers Care [employer] Advanced Operator Maintainer Name Role Phone CHITO SEGURA Primary Care [...] PART A Feb 16, 2018 PART A [id number] YENNY OVIEDO PATIENT MEDICARE (WNR) MEDICARE (M) PART B Feb 16, 2018 PART B [id number] YENNY OVIEDO ES PATIENT MEDICARE (WNR) MEDICARE (M) PART A Oct 17, 2006 PART A [id number] [facility] [phone] YENNY OVIEDO PATIENT FOR LIFE TFL* Apr 06, 2018 [id number] YENNY OVIEDO PATIENT Selected Encounter This section includes the information on record at [place] for the Encounter. Date/Time Encounter Type Encounter Description Reason Pro vider Source May 14, 2023 02:25 PM Outpatient Encounter PRIMARY CARE/MEDICINE IHE Encounter Template Text not used by [place] Plan of Treatment: Future Appointments (+ 6 months) and Future Tests (+/- 45 days) The Plan of Treatment section includes future care activities for the patient from all [place] [facility] This section includes future appointments and future orders which are active, pending or scheduled. Future Appointments This section includes appointments that were scheduled to occur 6 months from the date of the Encounter, up to a maximum of 20 appointments. The data comes from all [place] treatment facilities. Appointment Date/Time Appointment Type Appointme nt Facility Name May 27, 2023 01:30 PM AMBULAT[facility] [place] [facility] May 30, 2023 10:00 AM [facility] [place] [facility] Jun 03, 2023 03:30 PM AMBULATORY - [facility] MEDICIN [facility] [place] [facility] Jun 04, 2023 10:00 AM [facility] Jun 09, 2023 08:00 AM [facility]ORY [facility] MEDICINE [facility] Jun 09, 2023 08:30 AM [facility]ATORY - MEDICINE [facility] Jun 09, 2023 02:30 PM AMBULATORY - [facility]AB MEDICIN [facility] [place] [facility] Jun 16, 2023 08:00 AM AMBULATORY - REHAB MEDICIN E [facility] [place] [facility] Jun 23, 2023 07:30 AM AMBULATORY - REHAB MEDICIN [facility] [place] [facility] Jun 23, 2023 08:00 AM [facility]ULATORY [facility] MEDICINE [facility] [place] [facility] Jul 04, 2023 09:00 AM AMBULATORY - RE[facility]AB MEDICIN [facility] [place] [facility] Jul 08, 2023 10:00 AM AMBULATORY - REHAB MEDICIN [facility] [place] [facility] Jul 17, 2023 08:30 AM AMBULATORY - REHAB MEDICIN [facility] [place] [facility] Jul 17, 2023 12:00 PM AMBULATORY - NONE [facility] [place] [facility] Jul 21, 2023 01:30 PM AM[facility]ULATORY [facility] MEDICINE [facility] [place] [facility] Jul 24, 2023 08:30 AM AMBULATORY - RE[facility]AB MEDICIN [facility] [place] [facility] Jul 31, 2023 08:30 AM [facility] [place] [facility] Aug 04, 2023 08:00 AM [facility] Aug 04, 2023 08:30 AM [facility] Aug 06, 2023 09:00 AM AMBULATORY - RE[facility]AB MEDICIN [facility] [place] [facility] Lab Results: +/- 30 days of the encounter This section includes the Chemistry and Hematology Lab Results on record with [place] for the patient. Radiology Reports and Pathology Reports are provided separately, in subsequent sections. Lab Results This section contains the Chemistry/Hematology Results that were resulted 30 days before or 30 daysafter the date of the Encounter. Date/Time Source Result Type Result - Unit Interpretation Reference Range Comment Apr 29, 2023 07:36 AM [facility] HEMOGLOBIN A1C PANEL Specimen Type: BLOOD [...] Apr 16, 2023 11:31 AM Reporting Lab: [facility] [place] [facility] [address] [facility] [address] Performing Lab: [place] [facility] [place] [facility] [address] [facility] [address] HEMOGLOBIN A1C 7.6 H 4.0-5.6 Apr 29, 2023 07:36 AM [facility] [place] [facility] MICROALBUMIN CREATININE RATIO PANEL Specimen Type: URINE No comment entered. Ordering Provider: AYUSH SEGURA F Report Released Date/Time: Apr 16, 2023 11:31 AM Reporting Lab: [facility] [place] [facility] [address] [facility] [address] Performing Lab: [facility] [address] [address] MICROALBUMIN/C REATININE RATIO 28.3 mg/g 0-29.9 MICROALBUMIN,Q UANTITATIVE 3.4 mg/dL RR UNAVAIL CREATININE URINE 120.12 mg/dL Apr 29, 2023 07:36 AM [facility] LIVER FUNCTION Specimen Type: SERUM No comment entered. Ordering Provider: AYUSH SEGURA F Report Released Date/Time: Apr 16, 2023 11:31 AM Reporting Lab: [facility] [address] [facility] [address] Performing Lab: [address] [address] PROTEIN,TOTAL 6.7 g/dL 6.0-8.3 ALBUMIN 3.6 g/dL 3.5-5.0 ALKALINE PHOSPHATASE 43 U/L 40-150 AST 14 U/L 5-34 ALT 16 U/L BILIRUBIN, TOTAL 0.7 mg/dL 0.2-1.2 Apr 29, 2023 07:36 AM [facility] LIPID PANEL FASTING Specimen Type: SERUM No comment entered. Ordering Provider: AYUSH SEGURA F Report Released Date/Time: Apr 16, 2023 11:31 AM Reporting Lab: [facility] [address] [facility] [address] Performing Lab: [address] [address] CHOLESTEROL 119 mg/dL TRIGLYCERIDE 121 mg/dL 0-150 LDL calculated 53 mg/dL 0-129 CHOL/HDL 2.8 HDL CHOLESTEROL 42 mg/dL 40-60 Apr 29, 2023 07:36 AM [facility] BASIC METABOLIC PANEL (fasting) Specimen Type: SERUM No comment entered. Ordering Provider: AYUSH SEGURA F Report Released Date/Time: Apr 16, 2023 11:31 AM Reporting Lab: [facility] [address] [facility] [address] Performing Lab: [address] [address] UREA NITROGEN 14 mg/dL 7-25 GLUCOSE 135 mg/dL H 65-100 SODIUM 139 mmol/L 135-145 POTASSIUM 4.0 mmol/L 3.5-5.0 CHLORIDE 106 mmol/L 100-110 CO2 24 meq/L 20-30 CREATININE, Serum 0.71 mg/dL 0.50-1.40 eGFR(CKD-EPI 2020) >90 mL/min >60 Apr 29, 2023 07:36 AM [facility] URINALYSIS Specimen Type: URINE Comment: If Glucose = >500 and Ketones are positive, please alert the Physician. Ordering Provider: AYUSH SEGURA F Report Released Date/Time: Apr 16, 2023 11:31 AM Reporting Lab: [address] [address] Performing Lab: [address] [address] UA COLOR Yellow Yellow UA APPEARANCE Clear Clear UA GLUCOSE NEGATIVE mg/dL Negative UA KETONES NEGATIVE mg/dL Negative UA BLOOD NEGATIVE mg/dL Negative UA PROTEIN NEGATIVE mg/dL Negative UA NITRITE NEGATIVE mg/dL Negative UA BILIRUBIN NEGATIVE mg/dL Negative UA SPECIFIC GRAVITY 1.024 H 1.016-1.02 2 UA pH 5.5 5.0-9.0 UA UROBILINOGEN <2.0 mg/dL <2.0 UA LEUKOCYTE NEGATIVE Negative Apr 29, 2023 07:36 AM [facility] CBC AND DIFF (AUTO) Specimen Type: BLOOD No comment entered. Ordering Provider: AYUSH SEGURA F Report Released Date/Time: Apr 16, 2023 11:31 AM Reporting Lab: [address] [address] Performing Lab: [address] [address] WBC 6.37 10*3/uL 4.50-11.00 RBC 4.63 10*6/uL 4.23-5.66 HGB 13.9 g/dL 12.8-17 HCT 41.1 39.2-50.4 MCV 88.8 fL 82-99 MCHC 33.8 g/dL 30.8-35.1 PLT 126 10*3/uL L 140-360 RDW-CV 13.4 12.0-16.0 [place], Abs 0.47 10*3/uL 0.30-1.10 MCH 30.0 pg 26.2-32.6 Neut % 73.5 43.7-75.8 Lymph % 15.5 14.0-42.3 [place] % 7.4 5.1-13.7 Eos % 2.7 0.4-6.8 [...] and tobacco- related health factors from the [place] facility where the Encounter took place. Current Smoking Status This section includes the most current smoking, or tobacco-related health factor, from the [place] facility where the Encounter took place. Date/Time Current Smoking Status Comment Facil ity Mar 28, 2021 03:28 PM VA-TOBACCO FORMER USER [facility] Tobacco Use History This section includes a history of the smoking, or tobacco-related health factors, that were collected on or before the date of the Encounter. The data comes from the [place] facility where the Encounter took place. Date/Time Smoking Status/Tobacco Use Comment F acility Mar 28, 2021 03:28 PM [place]-TOBACCO QUIT 15 YRS OR MORE [facility] Dec 02, 2019 09:36 AM VA-TOBACCO NEVER USED [facility] Apr 23, 2005 10:19 AM QUIT TOBACCO USE IN PAST YEAR [facility] Advance Directives: All historical and current Section Date Range: From patient's date of to the date document was created. This section includes ALL of a patient's completed or amended VA Advance and Rescinded Directives. The entries below indicate that a directive exists for the patient, but an actual copy is not included with this document. The data comes from all [place] facilities. Date Advance Directives Provider Source Dec 16, 2011 ADVANCE DIRECTIVE DISCUSSION MARGARITA TERRAZAS Encounter Notes: All associated encounter notes This section contains the clinical notes associated to the Encounter. Date/Time Encounter Note(s) Provider Source May 14, 2023 02:25 PM ADMINISTRATIVE NOT E: LOCAL TITLE: ADMINISTRATIVE NOTE STANDARD TITLE: ADMINISTRATIVE NOTE DATE OF NOTE: MAY 14, 2023@14:25 ENTRY DATE: MAY 14, 2023@14:25:40 AUTHOR: AJAY FELICIANO EXP COSIGNER: URGENCY: STATUS: COMPLETED Received fax from [place] orthopedic Surgeon, Dr Rausch, for PT evaluation and treatment for left shoulder instability. Special instructions: passive/active ROM and gentle therabands. Comment added to outpatient OT consult with information noted above and then [facility] /lisa/ ANN RAMIREZN RN-BC REGISTERED NURSE Signed: 05/14/2023 14:27 AJAY FELICIANO
--- OUTSIDE RECORDS SUMMARY | 2024-05-10 07:30 | XMS_ITS ---
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 Organization [place] Address [address] [place] [address] Care Team Providers Care Physician Specialist Name Role Phone CHITO SEGURA Primary [...] PART A Feb 16, 2018 PART A [id number] [phone] YENNY OVIEDO PATIENT MEDICARE (WNR) MEDICARE (M) PART B Feb 16, 2018 PART B [id number] YENNY OVIEDO ES PATIENT MEDICARE (WNR) MEDICARE (M) PART A Oct 17, 2006 PART A [id number] [facility] [phone] YENNY OVIEDO PATIENT FOR LIFE TFL* Apr 06, 2018 [id number] [phone] YENNY OVIEDO PATIENT Selected Encounter This section includes the information on record at [place] for the Encounter. Date/Time Encounter Type Encounter Description Reason Pro vider Source Jan 23, 2024 09:53 AM Outpatient Encounter PRIMARY CARE/MEDICINE IHE Encounter Template Text not used by [facility] Plan of Treatment: Future Appointments (+ 6 months) and Future Tests (+/- 45 days) The Plan of Treatment section includes future care activities for the patient from all [place] [facility]. This section includes future appointments and [...] 29, 2024 08:45 AM AMBULATORY - MEDICINE [place] [facility] [place] [facility] Feb 16, 2024 08:00 AM AMBULATORY - MEDICINE [facility] Feb 17, 2024 07:30 AM AMBULATORY - NONE [place] [facility] [place] [facility] Mar 16, 2024 09:30 AM AMBULATORY - NONE [facility] [place] [facility] Mar 30, 2024 07:30 AM AMBULATORY - MEDICINE [place] [facility] [place] [facility] Apr 06, 2024 09:00 AM AMBULATORY - MEDICINE [facility] Apr 12, 2024 08:00 AM AMBULATORY - MEDICINE [facility] Apr 12, 2024 11:00 AM AMBULATORY - MEDICINE [place] [facility] [place] [facility] Apr 12, 2024 01:30 PM AMBULATORY - MEDICINE [place] [facility] [place] [facility] Apr 30, 2024 01:40 PM AMBULATORY - NONE [facility] [place] [facility] May 28, 2024 08:30 AM AMBULATORY - MEDICINE [place] [facility] [place] [facility] May 31, 2024 11:00 AM AMBULATORY - MEDICINE [place] [facility] [place] [facility] Jun 01, 2024 07:30 AM AMBULATORY - NONE [facility] [place] [facility] Jun 28, 2024 08:00 AM AMBULATORY - MEDICINE [facility] Lab Results: +/- 30 [...] Range Comment Jan 05, 2024 07:32 AM [facility] LIVER FUNCTION Specimen Type: SERUM No comment entered. Ordering Provider: AYUSH SEGURA F Report Released Date/Time: Jul 21, 2023 02:25 PM Reporting Lab: [facility] [address] [facility] [address] Performing Lab: [facility] [address] [facility] [address] PROTEIN,TOTAL 6.3 g/dL 6.0-8.3 ALBUMIN 3.6 g/dL 3.5-5.0 ALKALINE PHOSPHATASE 39 U/L L 40-150 AST 13 U/L 5-34 ALT 15 U/L BILIRUBIN, TOTAL 1.0 mg/dL 0.2-1.2 Jan 05, 2024 07:32 AM [facility] BASIC METABOLIC PANEL (fasting) Specimen Type: SERUM No comment entered. Ordering Provider: AYUSH SEGURA F Report Released Date/Time: Jul 21, 2023 02:25 PM Reporting Lab: [facility] [address] [facility] [address] Performing Lab: [facility] [address] [facility] [address] UREA NITROGEN 21 mg/dL 7-25 GLUCOSE 126 mg/dL H 65-100 SODIUM 139 mmol/L 135-145 POTASSIUM 3.9 mmol/L 3.5-5.0 CHLORIDE 107 mmol/L 100-110 CO2 22 meq/L 20-30 CREATININE, Serum 0.68 mg/dL 0.50-1.40 eGFR(CKD-EPI 2020) >90 mL/min >60 Jan 05, 2024 07:32 AM [facility] LIPID PANEL FASTING Specimen Type: SERUM No comment entered. Ordering Provider: AYUSH SEGURA F Report Released Date/Time: Jul 21, 2023 02:25 PM Reporting Lab: [address] [address] Performing Lab: [address] [address] CHOLESTEROL 116 mg/dL TRIGLYCERIDE 73 mg/dL 0-150 LDL calculated 62 mg/dL 0-129 CHOL/HDL 3.0 HDL CHOLESTEROL 39 mg/dL L 40-60 Jan 05, 2024 07:32 AM [facility] MICROALBUMIN CREATININE RATIO PANEL Specimen Type: URINE No comment entered. Ordering Provider: AYUSH SEGURA F Report Released Date/Time: Jul 21, 2023 02:25 PM Reporting Lab: [facility] [address] [facility] [address] Performing Lab: [address] [address] MICROALBUMIN/C REATININE RATIO 45.9 mg/g H 0-29.9 MICROALBUMIN,Q UANTITATIVE 5.0 mg/dL RR UNAVAIL CREATININE URINE 108.91 mg/dL Jan 05, 2024 07:32 AM [facility] PSA Specimen Type: SERUM No comment entered. Ordering Provider: AYUSH SEGURA F Report Released Date/Time: Jul 21, 2023 02:25 PM Reporting Lab: [facility] [address] [facility] [address] Performing Lab: [address] [address] PSA < 0.10 ng/mL 0.00-4.00 Jan 05, 2024 07:32 AM [facility] HEMOGLOBIN A1C PANEL Specimen Type: BLOOD [...] Jul 21, 2023 02:25 PM Reporting Lab: [address] [address] Performing Lab: [address] [place] [address] HEMOGLOBIN A1C 6.1 H 4.0-5.6 Jan 05, 2024 07:32 AM [facility] URINALYSIS Specimen Type: URINE Comment: If Glucose = >500 and Ketones are positive, please alert the Physician. Ordering Provider: AYUSH SEGURA Report Released Date/Time: Jul 21, 2023 02:25 PM Reporting Lab: [address] [address] Performing Lab: [address] [address] UA COLOR Yellow Yellow UA APPEARANCE Clear [...] 21, 2023 01:30 PM VA-TOBACCO FORMER USER [facility] Tobacco Use History This section includes a history of the smoking, or tobacco-related health factors, that were collected on or before the date of the Encounter. The data comes from the [place] facility where the Encounter took place. Date/Time Smoking Status/Tobacco Use Comment F acility Jul 21, 2023 01:30 PM VA-TOBACCO QUIT 15 YRS OR MORE [facility] Mar 28, 2021 03:28 PM VA-TOBACCO FORMER USER [facility] Mar 28, 2021 03:28 PM VA-TOBACCO QUIT 15 YRS OR MORE [facility] Dec 02, 2019 09:36 AM VA-TOBACCO NEVER USED [facility] Apr 23, 2005 10:19 AM QUIT TOBACCO USE IN PAST YEAR [facility] Advance Directives: All historical and current [...] 16, 2011 ADVANCE DIRECTIVE DISCUSSION MARGARITA TERRAZAS [place] Encounter Notes: All associated encounter notes This section contains the clinical notes associated to the Encounter. Date/Time Encounter Note(s) Provider Source Jan 23, 2024 09:53 AM ADMINISTRATIVE NOTE: LOCAL TITLE: FAX/MAIL RECEIVED STANDARD TITLE: ADMINISTRATIVE NOTE DATE OF NOTE: JAN 23, 2024@09:53 ENTRY DATE: JAN 23, 2024@09:54:02 AUTHOR: GRACE MONDRAGON EXP COSIGNER: URGENCY: STATUS: COMPLETED FAX/MAIL RECEIVED Has ADDENDA Document Received On: Jan Document Type: ImaginG/[place] [facility] ECHOCARDIOGRAM REPORT Date of Service: Jan Facility and or Provider: Contact Information: PCP of Record: CHITO SEGURA Next visit with PCP: 01/29/2024 08:45 [facility] CARE-CARDIOLOGY 02/16/2024 08:00 CWM/SO/PODIATRY/ROSS 02/17/2024 07:30 [facility] DENTAL DMD 2 03/30/2024 07:30 CWM/NO/OPTOMETRY/ALCON 04/06/2024 09:00 CWM/SO/PHARM/PACT 1 04/12/2024 08:00 CWM/SO/PODIATRY/ROSS 05/28/2024 08:30 CWM/NO/PACT 3 06/01/2024 07:30 [facility] DENTAL RDH 1 AM Primary Care May keep copies of this document for up to 14 days and send the original for scanning. /lisa/ GRACE MONDRAGON AMSA Signed: 01/23/2024 09:56 01/23/2024 ADDENDUM STATUS: COMPLETED PLACED IN PACT 3 FOLDER /lisa/ GRACE MONDRAGON AMSA Signed: 01/23/2024 09:57 [facility] MOD[facility]AGON [facility]
--- OUTSIDE RECORDS SUMMARY | 2024-05-10 07:30 | XMS_ITS ---
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 [place] Organization [facility] [place] Address [address] [place] [address] Care Team Providers Care Edge Banding Off Bearer Name Role Phone CHITO SEGURA Primary Care [...] PART A Feb 16, 2018 PART A [id number] YENNY OVIEDO ES PATIENT MEDICARE (WNR) MEDICARE (M) PART B Feb 16, 2018 PART B [id number] YENNY OVIEDO ES PATIENT MEDICARE (WNR) MEDICARE (M) PART A Oct 17, 2006 PART A [id number] [facility] YENNY OVIEDO PATIENT FOR LIFE TFL* Apr 06, 2018 [id number] 11 YENNY OVIEDO PATIENT Selected Encounter This section includes the information on record at [place] for the Encounter. Date/Time Encounter Type Encounter Description Reason Provider Source Jan 28, 2024 04:23 PM COLLJ & INTERPJ DATA EA 30 D TELEPHONE/MEDICIN E ICD-10-CM G47.30 Sleep apnea, unspecified JOHNNY CURRY E Encounter Template Text not used by [place] Assessments - Encounter Diagnoses This section includes the primary and secondary diagnoses documented for the Encounter. Date/Time Primary/Secondary Diagnosis Diagnosis Name Provider Source Jan 28, 2024 04:23 PM PRIMARY Sleep apnea, unspecified JOHNNY CURRY [place] [facility] [place] [facility] Plan of Treatment: Future Appointments (+ 6 months) and Future Tests (+/- 45 days) The Plan of Treatment section includes future care activities for the patient from all [place] treatmentfacilities. This section includes future appointments and future orders which are active, pending or scheduled. Future Appointments This section includes appointments that were scheduled to occur 6 months from the date of the Encounter, up to a maximum of 20 appointments. The data comes from all [place] treatment facilities. Appointment Date/Time Appointment Type Appointme nt Facility Name Jan 29, 2024 08:45 AM AMBULATORY - MEDICINE [facility] [place] [facility] Feb 16, 2024 08:00 AM [facility]ICINE [facility] Feb 17, 2024 07:30 AM AMBULATORY - NONE [facility] [place] [facility] Mar 16, 2024 09:30 AM AMBULATORY - NONE [facility] [place] [facility] Mar 30, 2024 07:30 AM AMBULATORY - MEDICINE [facility] [place] [facility] Apr 06, 2024 09:00 AM AMBULATORY - MEDICINE [facility] Apr 12, 2024 08:00 AM [facility]ATORY - MEDICINE [facility] Apr 12, 2024 11:00 AM AMBULATORY - MEDICINE [facility] [place] [facility] Apr 12, 2024 01:30 PM AMBULATORY - MEDICINE [facility] [place] [facility] Apr 30, 2024 01:40 PM AMBULATORY - NONE [facility] [place] [facility] May 28, 2024 08:30 AM AMBULATORY - MEDICINE [facility] [place] [facility] May 31, 2024 11:00 AM AMBULATORY - MEDICINE [facility] [place] [facility] Jun 01, 2024 07:30 AM AMBULATORY - NONE [facility] [place] [facility] Jun 28, 2024 08:00 AM AMBULATORY - MEDICINE [facility] Lab Results: +/- 30 days of the encounter This section includes the Chemistry and Hematology Lab Results on record with [place] for the patient. Radiology Reports and Pathology Reports are provided separately, in subsequent sections. Lab Results This section contains the Chemistry/Hematology Results that were resulted 30 days before or 30 daysafter the date of the Encounter. Date/Time Source Result Type Result - Unit Interpretation Reference Range Comment Feb 27, 2024 07:43 AM [facility] CREATININE (eGFR 2020) Specimen Type: SERUM No comment entered. Ordering Provider: AYUSH SEGURA F Report Released Date/Time: Feb 23, 2024 02:44 PM Reporting Lab: [address] [address] Performing Lab: [address] [address] CREATININE, Serum 0.84 mg/dL 0.50-1.40 eGFR(CKD-EPI 2020) >90 mL/min >60 Feb 27, 2024 07:43 AM [facility] PT & INR (COUMADIN) Specimen Type: PLASMA No comment entered. Ordering Provider: AYUSH SEGURA Report Released Date/Time: Feb 23, 2024 02:44 PM Reporting Lab: [address] [address] Performing Lab: [address] [address] INR 1.4 PROTIME 15.4 s H 10.0-13.1 Feb 27, 2024 07:43 AM [facility] LIVER FUNCTION Specimen Type: SERUM No comment entered. Ordering Provider: AYUSH SEGURA F Report Released Date/Time: Feb 23, 2024 02:44 PM Reporting Lab: [address] [address] Performing Lab: [address] [address] PROTEIN,TOTAL 6.3 g/dL 6.0-8.3 ALBUMIN 3.5 g/dL 3.5-5.0 ALKALINE PHOSPHATASE 45 U/L 40-150 AST 19 U/L 5-34 ALT 23 U/L BILIRUBIN, TOTAL 0.6 mg/dL 0.2-1.2 Feb 27, 2024 07:43 AM [facility] CBC Specimen Type: BLOOD No comment entered. Ordering Provider: AYUSH SEGURA F Report Released Date/Time: Feb 23, 2024 02:44 PM Reporting Lab: [address] [address] Performing Lab: [address] [address] WBC 6.44 10*3/uL 4.50-11.00 RBC 4.42 10*6/uL 4.23-5.66 HGB 13.1 g/dL 12.8-17 HCT 38.8 L 39.2-50.4 MCV 87.8 fL 82-99 MCHC 33.8 g/dL 30.8-35.1 PLT 116 10*3/uL L 140-360 RDW-CV 14.6 12.0-16.0 MCH 29.6 pg 26.2-32.6 Jan 05, 2024 07:32 AM [facility] LIVER FUNCTION Specimen Type: SERUM No comment entered. Ordering Provider: AYUSH SEGURA F Report Released Date/Time: Jul 21, 2023 02:25 PM Reporting Lab: [address] [address] Performing Lab: [address] [address] PROTEIN,TOTAL 6.3 g/dL 6.0-8.3 ALBUMIN 3.6 g/dL 3.5-5.0 ALKALINE PHOSPHATASE 39 U/L L 40-150 AST 13 U/L 5-34 ALT 15 U/L BILIRUBIN, TOTAL 1.0 mg/dL 0.2-1.2 Jan 05, 2024 07:32 AM [facility] BASIC METABOLIC PANEL (fasting) Specimen Type: SERUM No comment entered. Ordering Provider: AYUSH SEGURA F Report Released Date/Time: Jul 21, 2023 02:25 PM Reporting Lab: [facility] [address] [facility] [address] Performing Lab: [facility] [address] [address] UREA NITROGEN 21 mg/dL 7-25 GLUCOSE 126 mg/dL H 65-100 SODIUM 139 mmol/L 135-145 POTASSIUM 3.9 mmol/L 3.5-5.0 CHLORIDE 107 mmol/L 100-110 CO2 22 meq/L 20-30 CREATININE, Serum 0.68 mg/dL 0.50-1.40 eGFR(CKD-EPI 2020) >90 mL/min >60 Jan 05, 2024 07:32 AM [facility] LIPID PANEL FASTING Specimen Type: SERUM No comment entered. Ordering Provider: AYUSH SEGURA F Report Released Date/Time: Jul 21, 2023 02:25 PM Reporting Lab: [facility] [address] [facility] [address] Performing Lab: [facility] [address] [facility] [address] CHOLESTEROL 116 mg/dL TRIGLYCERIDE 73 mg/dL 0-150 LDL calculated 62 mg/dL 0-129 CHOL/HDL 3.0 HDL CHOLESTEROL 39 mg/dL L 40-60 Jan 05, 2024 07:32 AM [facility] MICROALBUMIN CREATININE RATIO PANEL Specimen Type: URINE No comment entered. Ordering Provider: AYUSH SEGURA F Report Released Date/Time: Jul 21, 2023 02:25 PM Reporting Lab: [facility] [address] [facility] [address] Performing Lab: [address] [address] MICROALBUMIN/C REATININE RATIO 45.9 mg/g H 0-29.9 MICROALBUMIN,Q UANTITATIVE 5.0 mg/dL RR UNAVAIL CREATININE URINE 108.91 mg/dL Jan 05, 2024 07:32 AM [facility] PSA Specimen Type: SERUM No comment entered. Ordering Provider: AYUSH SEGURA F Report Released Date/Time: Jul 21, 2023 02:25 PM Reporting Lab: [address] [address] Performing Lab: [address] [address] PSA < 0.10 ng/mL 0.00-4.00 Jan 05, 2024 07:32 AM [facility] HEMOGLOBIN A1C PANEL Specimen Type: BLOOD [...] Jul 21, 2023 02:25 PM Reporting Lab: [address] [address] Performing Lab: [address] [address] HEMOGLOBIN A1C 6.1 H 4.0-5.6 Jan 05, 2024 07:32 AM [facility] URINALYSIS Specimen Type: URINE Comment: If Glucose = >500 and Ketones are positive, please alert the Physician. Ordering Provider: AYUSH SEGURA F Report Released Date/Time: Jul 21, 2023 02:25 PM Reporting Lab: [address] [address] Performing Lab: [address] [address] UA COLOR Yellow Yellow UA APPEARANCE Clear [...] and tobacco- related health factors from the [place] facility where the Encounter took place. Current Smoking Status This section includes the most current smoking, or tobacco-related health factor, from the [place] facility where the Encounter took place. Date/Time Current Smoking Status Comment Ginger ity Jul 21, 2023 01:30 PM VA-TOBACCO [facility] Tobacco Use History This section includes a history of the smoking, or tobacco-related health factors, that were collected on or before the date of the Encounter. The data comes from the [place] facility where the Encounter took place. Date/Time Smoking Status/Tobacco Use Comment F acility Jul 21, 2023 01:30 PM VA-TOBACCO [facility]IT [facility]RS [facility] Mar 28, 2021 03:28 PM VA-TOBACCO FORMER USER [place] [facility] [place] [facility] Mar 28, 2021 03:28 PM VA-TOBACCO QUIT 15 YRS OR MORE [facility] Dec 02, 2019 09:36 AM VA-TOBACCO [facility]ED [facility] Apr 23, 2005 10:19 AM QUIT TOBACCO USE IN PAST YEAR [facility] Advance Directives: All historical and current Section Date Range: From patient's date of to the date document was created. This section includes ALL of a patient's completed or amended [place] Advance and Rescinded Directives. The entries below indicate that a directive exists for the patient, but an actual copy is not included with this document. The data comes from all [place] facilities. Date Advance Directives Provider Source Dec 16, 2011 ADVANCE DIRECTIVE DISCUSSION MARGARITA TERRAZASFIELD Encounter Notes: All associated encounter notes This section contains the clinical notes associated to the Encounter. Date/Time Encounter Note(s) Provider Source Jan 28, 2024 04:24 PM SLEEP MEDICINE NOT E: LOCAL TITLE: CPAP CLINIC NOTE STANDARD TITLE: SLEEP MEDICINE NOTE DATE OF NOTE: JAN 28, 2024@16:24 ENTRY DATE: JAN 28, 2024@16:24:07 AUTHOR: JOHNNY CURRY EXP COSIGNER: URGENCY: STATUS: COMPLETED , dx ANJELICA, secure messaged with complaint he cannot tolerate the settings change and requested the pressure be turned down. His start pressure was decreased back to 5cm and EPR 1 added. He was advised to let us know if it doesn't help him tolerate PAP. /es/ JOHNNY CURRY, LAP MAKER RESPIRATORY THERAPIST Signed: 01/28/2024 16:27 JOHNNY CURRY [place]
--- OUTSIDE RECORDS SUMMARY | 2024-05-10 07:30 | XMS_ITS | Encounter Summary ---
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 Date/Time Encounter Type Encounter Description Reason Provider Source May 30, 2023 10:00 AM RPR&REFITG SPECT XCP [facility]HAKIA OPTOMETRY ICD-10-CM Z46.0 Encounter for fit/adjst of spectacles and contact lenses KIARRA TERRAZAS [facility] Encounter Template Text not used by [place] Assessments - Encounter Diagnoses This section includes the primary and secondary diagnoses documented for the Encounter. Date/Time Primary/Secondary Diagnosis Diagnosis Name Provider Source May 30, 2023 10:02 AM PRIMARY Encounter for fit/adjst of spectacles and contact lenses KIARRA TERRAZAS [place] [facility] [facility] Plan of Treatment: Future Appointments (+ 6 months) and Future Tests (+/- 45 days) The Plan of Treatment section includes future care activities for the patient from all [place] treatmentfacilities. This section includes future appointments and future orders which are active, pending or scheduled. Future Appointments This section includes appointments that were scheduled to occur 6 months from the date of the Encounter, up to a maximum of 20 appointments. The data comes from all [place] treatment facilities. Appointment Date/Time Appointment Type Appointme nt Facility Name Jun 03, 2023 03:30 PM AMBULATORY - REHAB MEDICIN E [facility] [place] [facility] Jun 04, 2023 10:00 AM [facility]ATORY [facility]ICINE [facility] Jun 09, 2023 08:00 AM [facility]ICINE [facility] Jun 09, 2023 08:30 AM [facility]ATORY - MEDICINE [facility] Jun 09, 2023 02:30 PM AMBULATORY - REHAB MEDICIN E [facility] [place] [facility] Jun 16, 2023 08:00 AM AMBULATORY - REHAB MEDICIN E [facility] [place] [facility] Jun 23, 2023 07:30 AM AMBULATORY - REHAB MEDICIN E [facility] [place] [facility] Jun 23, 2023 08:00 AM AMBULATORY - MEDICINE [facility] [place] [facility] Jul 04, 2023 09:00 AM AMBULATORY - REHAB MEDICIN E [facility] [place] [facility] Jul 08, 2023 10:00 AM AMBULATORY - REHAB MEDICIN E [facility] [facility] Jul 17, 2023 08:30 AM AMBULATORY - REHAB MEDICIN E [facility] [facility] Jul 17, 2023 12:00 PM AMBULATORY - NONE [facility] [facility] Jul 21, 2023 01:30 PM AMBULATORY - MEDICINE [facility] [place] [facility] Jul 24, 2023 08:30 AM AMBULATORY - REHAB MEDICIN E [facility] [place] [facility] Jul 31, 2023 08:30 AM AMBULATORY - REHAB MEDICIN E [facility] [place] [facility] Aug 04, 2023 08:00 AM [facility] [place]ICINE [facility] [place] Aug 04, 2023 08:30 AM [facility]ORY [place]IC[place] [facility] [place] Aug 06, 2023 09:00 AM AMBULATORY - REHAB MEDICIN E [facility] [place] [facility] Aug 20, 2023 08:30 AM AMBULATORY - REHAB MEDICIN E [facility] [place] [facility] Aug 26, 2023 09:00 AM AMBULATORY - REHAB MEDICIN E [place] [facility] [place] [facility] Social History: Smoking Status [...] 28, 2021 03:28 PM [facility]ACCO [facility] Tobacco Use History This section includes a history of the smoking, or tobacco-related health factors, that were collected on or before the date of the Encounter. The data comes from the [place] facility where the Encounter took place. Date/Time Smoking Status/Tobacco Use Comment F acility Mar 28, 2021 03:28 PM VA-TOBACCO QUIT 15 YRS OR MORE [place] [facility] [place] [facility] Dec 02, 2019 09:36 AM VA-TOBACCO NEVER USED [place] [facility] [place] [facility] Apr 23, 2005 10:19 AM QUIT TOBACCO USE IN PAST [facility]AR [facility] Advance Directives: All historical and current Section [...] 16, 2011 ADVANCE DIRECTIVE DISCUSSION MARGARITA TERRAZAS [place] Encounter Notes: All associated encounter notes This section contains the clinical notes associated to the Encounter. Date/Time Encounter Note(s) Provider Source May 30, 2023 09:57 AM OPTOMETRY NOTE: LOCAL TITLE: OPTOMETRY NOTE STANDARD TITLE: OPTOMETRY NOTE DATE OF NOTE: MAY 30, 2023@09:57 ENTRY DATE: MAY 30, 2023@09:57:21 AUTHOR: KIARRA TERRAZAS EXP COSIGNER: URGENCY: STATUS: COMPLETED OPT HT & OPT Student fit and adjusted 1 pair(s) of eyeglasses per patient request. /lisa/ Kiarra Terrazas [facility] Web Feeder Signed: 05/30/2023 10:03 KIARRA TERRAZAS [place] [facility]
--- OUTSIDE RECORDS SUMMARY | 2024-05-10 07:30 | XMS_ITS | Encounter Summary ---
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 Organization [place] Address [address] [place] [address] Care Team Providers Care Maintenance Clerk Name Role Phone CHITO SEGURA Primary Care [...] PART A Feb 16, 2018 PART A [id number] YENNY OVIEDO ES PATIENT MEDICARE (WNR) MEDICARE (M) PART B Feb 16, 2018 PART B [id number] YENNY OVIEDO ES PATIENT MEDICARE (WNR) MEDICARE (M) PART A Oct 17, 2006 PART A [id number] [facility] YENNY OVIEDO PATIENT FOR LIFE TFL* Apr 06, 2018 [id number] [phone] YENNY OVIEDO PATIENT Selected Encounter This section includes the information on record at [place] for the Encounter. Date/Time Encounter Type Encounter Description Reason Pro vider Source May 30, 2023 01:54 PM Outpatient Encounter ADMIN PAT ACTIVTIES (MASNONCT) IHE Encounter Template Text not used by [place] Plan of Treatment: Future Appointments (+ 6 months) and Future Tests (+/- 45 days) The Plan of Treatment section includes future care activities for the [facility] [place] [facility] This section includes future [...] REHAB MEDICIN E [facility] [place] [facility] Jun 04, 2023 10:00 AM AMBULATORY - MEDICINE [facility] Jun 09, 2023 08:00 AM [facility] MEDICINE [facility] Jun 09, 2023 08:30 AM [facility]ATORY [facility] MEDICINE [facility] Jun 09, 2023 02:30 PM AMBULATORY - REHAB MEDICIN E [facility] [place] [facility] Jun 16, 2023 08:00 AM AMBULATORY - REHAB MEDICIN E [facility] [place] [facility] Jun 23, 2023 07:30 AM AMBULATORY - REHAB MEDICIN E [facility] [place] [facility] Jun 23, 2023 08:00 AM AMBULATORY - MEDICINE [facility] [place] [facility] Jul 04, 2023 09:00 AM AMBULATORY - REHAB MEDICIN E [facility] [place] [facility] Jul 08, 2023 10:00 AM AMBULATORY - REHAB MEDICIN E [facility] [place] [facility] Jul 17, 2023 08:30 AM AMBULATORY - REHAB MEDICIN E [facility] [place] [facility] Jul 17, 2023 12:00 PM AMBULATORY - NONE [facility] [place] [facility] Jul 21, 2023 01:30 PM AMBULATORY - MEDICINE [facility] [place] [facility] Jul 24, 2023 08:30 AM AMBULATORY - REHAB MEDICIN E [facility] [place] [facility] Jul 31, 2023 08:30 AM AMBULATORY - REHAB MEDICIN E [facility] [place] [facility] Aug 04, 2023 08:00 AM AMBULATORY - MEDICINE [facility] [place] Aug 04, 2023 08:30 AM AMBULATORY - MEDICINE [facility] [place] Aug 06, 2023 09:00 AM AMBULATORY - REHAB MEDICIN E [place] [facility] [place] [facility] Aug 20, 2023 08:30 AM AMBULATORY - REHAB MEDICIN E [place] [facility] [place] [facility] Aug 26, 2023 09:00 AM AMBULATORY - [facility] [place] [facility] Social History: Smoking Status (Most [...] 28, 2021 03:28 PM VA-TOBACCO FORMER USER [facility] Tobacco Use History This section includes a history of the smoking, or tobacco-related health factors, that were collected on or before the date of the Encounter. The data comes from the [place] facility where the Encounter took place. Date/Time Smoking Status/Tobacco Use Comment F acility Mar 28, 2021 03:28 PM VA-TOBACCO QUIT 15 YRS OR MORE [facility] [place] [facility] Dec 02, 2019 09:36 AM VA-TOBACCO NEVER USED [facility] Apr 23, 2005 10:19 AM QUIT TOBACCO USE IN PAST YEAR [facility] Advance Directives: All historical [...] Encounter Note(s) Provider Source May 30, 2023 01:54 PM PHARMACY OUTPATIEN T MEDICATION MGT NOTE: LOCAL TITLE: PHARMACY OUTPATIENT MEDICATION NOTE STANDARD TITLE: PHARMACY OUTPATIENT MEDICATION MGT NOTE DATE OF NOTE: MAY 30, 2023@13:54 ENTRY DATE: MAY 30, 2023@13:54:29 AUTHOR: FLORENCIA RAHMAN EXP COSIGNER: URGENCY: STATUS: COMPLETED Ozempic 1mg is on box shook patcher backorder. The approximate release date right now is mid-late May. Script will be placed on-hold. /lisa/ FLORENCIA RAHMAN JR STUDENT LIFE ADVISOR Signed: 05/30/2023 13:54 Receipt Acknowledged By: 06/04/2023 08:23 /lisa/ Evelyne Sanchez, CorneliusD Clinical Pharmacy Practitioner FLORENCIA RAHMAN [facility]
--- OUTSIDE RECORDS SUMMARY | 2024-05-10 07:30 | XMS_ITS | Encounter Summary ---
Author Name [facility] [place] [place] Organization [place] Address [address] [place] [id number] Care Team Providers Care Armhole Sewer Name Role Phone CHITO SEGURA Primary Care [...] PART A Feb 16, 2018 PART A [id number] YENNY OVIEDO ANDREW PATIENT MEDICARE (WNR) MEDICARE (M) PART B Feb 16, 2018 PART B [id number] YENNY OVIEDO ANDREW PATIENT MEDICARE (WNR) MEDICARE (M) PART A Oct 17, 2006 PART A [id number] YENNY OVIEDO PATIENT FOR LIFE TFL* Apr 06, 2018 [id number] YENNY OVIEDO PATIENT Selected Encounter This section includes the information on record at [place] for the Encounter. Date/Time Encounter Type Encounter Description Reason Provider Source Jan 02, 2024 01:17 PM Outpatient Encounter SLEEP MEDICINE ICD-10-CM G47.33 Obstructive sleep apnea (adult) (pediatric) CURIOSO-UY,CY NTHIA IHE Encounter Template Text not used by [place] Assessments - Encounter Diagnoses This section includes the primary and secondary diagnoses documented for the Encounter. Date/Time Primary/Secondary Diagnosis Diagnosis Name Provider Source Jan 02, 2024 01:34 PM PRIMARY Obstructive sleep apnea (adult) (pediatric) CURIOSO-UY,KELLE THIA [facility] Plan of Treatment: Future Appointments (+ 6 months) and Future Tests (+/- 45 days) The Plan of Treatment section includes future care activities for the patient from all [place] treatmentfacilities. This section includes future appointments and [...] 12, 2024 11:25 AM AMBULATORY - MEDICINE [place] [facility] [place] [facility] Jan 12, 2024 11:40 AM AMBULATORY - MEDICINE [place] [facility] [place] [facility] Jan 22, 2024 01:00 PM AMBULATORY - MEDICINE [place] [facility] [place] [facility] Jan 29, 2024 08:45 AM AMBULATORY - MEDICINE [place] [facility] [place] [facility] Feb 16, 2024 08:00 AM [facility]ORY - MEDICINE [facility] Feb 17, 2024 07:30 AM AMBULATORY - NONE [facility] [place] [facility] Mar 16, 2024 09:30 AM AMBULATORY - NONE [facility] [place] [facility] Mar 30, 2024 07:30 AM AMBULATORY - MEDICINE [facility] [place] [facility] Apr 06, 2024 09:00 AM [facility]ULATORY - MEDICINE [facility] Apr 12, 2024 08:00 AM AMBULATORY - MEDICINE [facility] Apr 12, 2024 11:00 AM AMBULATORY - MEDICINE [place] [facility] [place] [facility] Apr 12, 2024 01:30 PM AMBULATORY - MEDICINE [place] [facility] [place] [facility] Apr 30, 2024 01:40 PM AMBULATORY - NONE [facility] [place] [facility] May 28, 2024 08:30 AM AMBULATORY - MEDICINE [facility] [place] [facility] May 31, 2024 11:00 AM [facility] Jun 01, 2024 07:30 AM [facility] Jun 28, 2024 08:00 AM [facility] Lab Results: +/- 30 days of [...] Range Comment Jan 05, 2024 07:32 AM [facility] Specimen Type: SERUM No comment entered. Ordering Provider: AYUSH SEGURA F Report Released Date/Time: Jul 21, 2023 02:25 PM Reporting Lab: [address] [address] Performing Lab: [address] [address] PROTEIN,TOTAL 6.3 g/dL 6.0-8.3 ALBUMIN 3.6 g/dL 3.5-5.0 ALKALINE PHOSPHATASE 39 U/L L 40-150 AST 13 U/L 5-34 ALT 15 U/L BILIRUBIN, TOTAL 1.0 mg/dL 0.2-1.2 Jan 05, 2024 07:32 AM [facility] BASIC METABOLIC PANEL (fasting) Specimen Type: SERUM No comment entered. Ordering Provider: AYUSH SEGURA F Report Released Date/Time: Jul 21, 2023 02:25 PM Reporting Lab: [address] [address] Performing Lab: [address] [address] UREA NITROGEN 21 mg/dL 7-25 GLUCOSE 126 mg/dL H 65-100 SODIUM 139 mmol/L 135-145 POTASSIUM 3.9 mmol/L 3.5-5.0 CHLORIDE 107 mmol/L 100-110 CO2 22 meq/L 20-30 CREATININE, Serum 0.68 mg/dL 0.50-1.40 eGFR(CKD-EPI 2020) >90 mL/min >60 Jan 05, 2024 07:32 AM [facility] LIPID PANEL FASTING Specimen Type: SERUM No comment entered. Ordering Provider: AYUSH SEGURAM F Report Released Date/Time: Jul 21, 2023 02:25 PM Reporting Lab: [facility] [address] [facility] [address] Performing Lab: [facility] [address] [facility] [address] CHOLESTEROL 116 mg/dL TRIGLYCERIDE 73 mg/dL 0-150 LDL calculated 62 mg/dL 0-129 CHOL/HDL 3.0 HDL CHOLESTEROL 39 mg/dL L 40-60 Jan 05, 2024 07:32 AM [facility] MICROALBUMIN CREATININE RATIO PANEL Specimen Type: URINE No comment entered. Ordering Provider: AYUSH SEGURA F Report Released Date/Time: Jul 21, 2023 02:25 PM Reporting Lab: [facility] [address] [facility] [address] Performing Lab: [facility] [address] [facility] [address] MICROALBUMIN/C REATININE RATIO 45.9 mg/g H 0-29.9 MICROALBUMIN,Q UANTITATIVE 5.0 mg/dL RR UNAVAIL CREATININE URINE 108.91 mg/dL Jan 05, 2024 07:32 AM [facility] PSA Specimen Type: SERUM No comment entered. Ordering Provider: AYUSH SEGURA F Report Released Date/Time: Jul 21, 2023 02:25 PM Reporting Lab: [facility] [address] [facility] [address] Performing Lab: [facility] [address] [facility] [address] PSA < 0.10 ng/mL 0.00-4.00 Jan 05, 2024 07:32 AM [facility] HEMOGLOBIN A1C PANEL Specimen Type: BLOOD Comment: [...] Jul 21, 2023 02:25 PM Reporting Lab: [address] [address] Performing Lab: [address] [address] HEMOGLOBIN A1C 6.1 H 4.0-5.6 Jan 05, 2024 07:32 AM [facility] URINALYSIS Specimen Type: URINE Comment: If Glucose = >500 and Ketones are positive, please alert the Physician. Ordering Provider: AYUSH SEGURA Report Released Date/Time: Jul 21, 2023 02:25 PM Reporting Lab: [address] [address] Performing Lab: [address] [address] UA COLOR Yellow Yellow UA APPEARANCE Clear Clear UA GLUCOSE Normal mg/dL Negative UA KETONES NEGATIVE mg/dL Negative UA BLOOD NEGATIVE mg/dL Negative UA PROTEIN 10 mg/dL Negative UA NITRITE NEGATIVE mg/dL Negative UA BILIRUBIN NEGATIVE mg/dL Negative UA SPECIFIC GRAVITY 1.027 H 1.016-1.02 2 UA pH 5.5 5.0-9.0 UA UROBILINOGEN Normal mg/dL <2.0 UA LEUKOCYTE NEGATIVE Negative Advance Directives: All historical and current Section [...] Encounter. Date/Time Encounter Note(s) Provider Source Jan 02, 2024 01:17 PM SLEEP MEDICINE TIM GARCÍA: MARGARET TITLE: SLEEP DISORDER E-CONSULT NOTE (WHAV) STANDARD TITLE: SLEEP MEDICINE CONSULT DATE OF NOTE: JAN 02, 2024@13:17 ENTRY DATE: JAN 02, 2024@13:17:43 AUTHOR: KIARRA MELENDEZ COSIGNER: URGENCY: STATUS: COMPLETED Reason For Request: I have been experiencing problems breathing, (or not breathing at times), during my use of the CPAP. I find myself struggling to get air and feel I am not receiving the pressure needed. I find I need to raise my upper body with more pillows while using the CPAP to decrease what feel like periods of apnea that actually wake me, seemingly completely out of breath. REPLY: 1. [employer] Resmed data reviewed. (see below), P95 was 8.8 [...] struggle after the change, can consider CPAP titratin study. Resmed Data: ANDREEA OVIEDO 12/03/2023 - 01/01/2024 : 1955 Age: 68 years [place] Compliance Report Compliance Payor Standard Usage 12/03/2023 - 01/01/2024 Usage days 30/30 days (100%) >= 4 hours 30 days (100%) < 4 hours 0 days (0%) Usage hours 191 hours 17 minutes Average usage (total days) 6 hours 23 minutes Average usage (days used) 6 hours 23 minutes Median usage (days used) 6 hours 24 minutes Total used hours (value since last reset - 01/01/2024) 978 hours AirSense 11 AutoSet Serial number [id number] Mode AutoSet Min Pressure 5 cmH2O Max Pressure 14 cmH2O EPR Off Response Soft Therapy Pressure - cmH2O Median: 6.2 95th percentile: 8.8 Maximum: 9.9 Leaks - L/min Median: 0.0 95th percentile: 1.5 Maximum: 11.8 Events per hour AI: 0.2 HI: 0.8 AHI: 1.0 Apnea Index Central: 0.1 Obstructive: 0.1 Unknown: 0.0 RERA Index 0.0 Humza-Fu respiration (average duration per night) 0 minutes (0%) Usage - hours Printed on 01/02/2024 - App [employer] version [id number] Page 1 of / KIARRA MELENDEZ MD ATTENDING Signed: 01/02/2024 13:34 KIARRA MELENDEZ [facility]
--- OUTSIDE RECORDS SUMMARY | 2024-05-10 07:31 | XMS_ITS | Encounter Summary ---
Author Name [facility] [place] [place] Organization [facility] Address [address] [place] [address] Care Team Providers Care Fraud Analyst Name Role Phone CHITO SEGURA Primary [...] PART A Feb 16, 2018 PART A [id number] YENNY OVIEDO ES PATIENT MEDICARE (WNR) MEDICARE (M) PART B Feb 16, 2018 PART B [id number] YENNY OVIEDO PATIENT MEDICARE (WNR) MEDICARE (M) PART A Oct 17, 2006 PART A [id number] YENNY OVIEDO PATIENT FOR LIFE TFL* Apr 06, 2018 [id number] YENNY OVIEDO PATIENT Selected Encounter This section includes the information on record at [place] for the Encounter. Date/Time Encounter Type Encounter Description Reason Provider Source Jun 04, 2023 10:00 AM MTMS BY PHARM HEARING THERAPIST 15 MIN TELEPHONE PRIMARY CARE ICD-10-CM E11.8 Type 2 diabetes mellitus with unspecified complications EVELYNE SANCHEZ Ayah Encounter Template Text not used by [place] Assessments - Encounter Diagnoses This section includes the primary and secondary diagnoses documented for the Encounter. Date/Time Primary/Secondary Diagnosis Diagnosis Name Provider Source Jun 04, 2023 10:00 AM PRIMARY Type 2 diabetes mellitus with unspecified complications EVELYNE SANCHEZ [place] Plan of Treatment: Future Appointments (+ 6 months) and Future Tests (+/- 45 days) The Plan of Treatment section includes future care activities for the patient from [facility] This section includes future appointments and future orders which are active, pending or scheduled. Future Appointments This section includes appointments that were scheduled to occur 6 months from the date of the Encounter, up to a maximum of 20 appointments. The data comes from all [place] treatment facilities. Appointment Date/Time Appointment Type Appointme nt Facility Name Jun 09, 2023 08:00 AM [facility] Jun 09, 2023 08:30 AM AMBULATORY - MEDICINE [facility] Jun 09, 2023 02:30 PM AMBULATORY - REHAB MEDICIN [place] [facility] [place] [facility] Jun 16, 2023 08:00 AM AMBULATORY - REHAB MEDICIN E [facility] [place] [facility] Jun 23, 2023 07:30 AM AMBULATORY - REHAB MEDICIN E [facility] [place] [facility] Jun 23, 2023 08:00 AM AMBULATORY - MEDICINE [facility] [place] [facility] Jul 04, 2023 09:00 AM AMBULATORY - REHAB MEDICIN E [facility] [place] [facility] Jul 08, 2023 10:00 AM AMBULATORY - REHAB MEDICIN E [facility] [place] [facility] Jul 17, 2023 08:30 AM AMBULATORY - REHAB MEDICIN E [facility] [place] [facility] Jul 17, 2023 12:00 PM AMBULATORY - NONE [facility] [place] [facility] Jul 21, 2023 01:30 PM AMBULATORY - MEDICINE [facility] [place] [facility] Jul 24, 2023 08:30 AM AMBULATORY - REHAB MEDICIN E [facility] [place] [facility] Jul 31, 2023 08:30 AM AMBULATORY - REHAB MEDICIN E [facility] [place] [facility] Aug 04, 2023 08:00 AM [facility] Aug 04, 2023 08:30 AM [facility] [place] [place] Aug 06, 2023 09:00 AM AMBULATORY - REHAB MEDICIN E [facility] [place] [facility] Aug 20, 2023 08:30 AM AMBULATORY - REHAB MEDICIN E [facility] [place] [facility] Aug 26, 2023 09:00 AM AMBULATORY - REHAB MEDICIN E [facility] [place] [facility] Sep 01, 2023 09:00 AM AMBULATORY - REHAB MEDICIN E [facility] [place] [facility] Sep 09, 2023 08:00 AM AMBULATORY - MEDICINE [facility] [place] [facility] Social History: Smoking Status (Most [...] ellis Jul 22, 2022 10:00 AM VA-TOBACCO QUIT 15 YRS OR MORE [place] Tobacco Use History This section includes a history of the smoking, or tobacco-related health factors, that were collected on or before the date of the Encounter. The data comes from the [place] facility where the Encounter took place. Date/Time Smoking Status/Tobacco Use Comment F acility Jul 22, 2022 10:00 AM VA-TOBACCO QUIT 15 YRS OR MORE [place] Dec 02, 2018 09:23 AM VA-TOBACCO FORMER USER [place] Dec 02, 2018 09:23 AM VA-TOBACCO QUIT 15 YRS OR MORE [place] Apr 20, 2018 10:23 AM VA-TOBACCO FORMER USER [place] Apr 20, 2018 10:23 AM VA-TOBACCO QUIT 15 YRS OR MORE [place] Dec 16, 2016 08:40 AM QUIT TOBACCO USE > 7 YEARS AGO [place] Jul 17, 2015 08:14 AM QUIT TOBACCO USE > 7 YEARS AGO quit many yrs ago [place] Aug 04, 2009 08:22 AM QUIT TOBACCO USE > 7 YEARS AGO quit over ten years ago [place] Dec 03, 2007 02:22 PM QUIT TOBACCO USE 1 -7 YEARS AGO [place] May 21, 2007 08:03 AM QUIT TOBACCO USE 1 -7 YEARS AGO [place] Jul 25, 2004 09:38 AM CURRENT SMOKER Smokes about 10 cigarettes/day, and trying to quit on his own [place] Apr 27, 2004 01:32 PM LIFETIME NON-TOBACCO USER [place] Advance Directives: All historical and current Section [...] 16, 2011 ADVANCE DIRECTIVE DISCUSSION MARGARITA TERRAZAS [place] Encounter Notes: All associated encounter notes This section contains the clinical notes associated to the Encounter. Date/Time Encounter Note(s) Provider Source Jun 04, 2023 08:28 AM PHARMACY OUTPATIEN T NOTE: LOCAL TITLE: PHARMACY CLINIC NOTE STANDARD TITLE: PHARMACY OUTPATIENT NOTE DATE OF NOTE: JUN 04, 2023@08:28 ENTRY DATE: JUN 04, 2023@08:28:10 AUTHOR: EVELYNE SANCHEZ EXP COSIGNER: URGENCY: STATUS: COMPLETED ANDREEA OVIEDO is a 68 yo MALE [facility]. HPI: S: Alerted by pharmacy that semaglutide 1mg dose is on backorder with availability ~mid-late May. Pt has one dose remaining of the 1mg dose. He denies any ADRs. He did have COVID recently and was on Paxlovid; notes he did not tolerate therapy well. He has lost > 15lbs; appetite decreased with semaglutide. Pt notes BG good ; denies any hypoglycemia. DIABETES (type/duration) Current Regimen: - Semaglutide 1mg once weekly - metformin SA 750mg BID Pertinent Labs: HEMOGLOBIN A1C TREND Collection DT Spec HGBA1c 04/29/2023 07:36 BLOOD 7.6 H 02/04/2023 08:03 BLOOD 9.1 H 09/13/2022 08:49 BLOOD 8.6 H 07/17/2022 09:26 BLOOD 9.7 H 12/28/2021 07:24 BLOOD 7.3 H LIPID PANEL TREND Collection DT Spec CHOL HDL CHO/HDL LDL-d LDL-c TRIG 04/29/2023 07:36 SERUM 119 42 2.8 53 121 02/04/2023 08:03 SERUM 129 40 3.2 60 147 09/13/2022 08:49 SERUM 130 40 3.3 56 170 H 07/17/2022 09:26 SERUM 164 36 L 4.6 83 226 H 12/28/2021 07:24 SERUM 174 36 L 4.8 95 217 H CREATININE-EGFR 04/29/23 07:36 0.71 02/04/23 08:03 0.72 09/13/22 08:49 0.76 A/P: 1. DM: Will increase semaglutide to 2mg dose given backorder of 1mg. BMI 33. Pt is tolerating therapy without ADRs. Will f/u on 06/09/23 in clinic as planned. Pt to monitor for and report any ADRs. Time Spent: 10 minutes PBM PharmD Pharmacotherapy Rem V12: PHARMACIST INTERVENTIONS: TYPE 2 DIABETES MELLITUS Medication Intervention(s) Medication reconciliation (changes to active VA and non-VA medication lists to reconcile differences) Changes to medication lists made Update dose, frequency, duration and/or dosage form of medication /lisa/ Evelyne Sanchez PharmD Clinical Pharmacy Practitioner Signed: 06/04/2023 08:35 EVELYNE SANCHEZ
--- OUTSIDE RECORDS SUMMARY | 2024-05-10 07:31 | XMS_ITS ---
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 Organization [place] Address [address] [place] [address] Care Team Providers Care Twitchell Operator Name Role Phone CHITO MENDEZ Primary Care Provider Unavail able Insurance Providers: [...] PART A Feb 16, 2018 PART A [id number] YENNY OVIEDO ES PATIENT MEDICARE (WNR) MEDICARE (M) PART B Feb 16, 2018 PART B [id number] YENNY OVIEDO ES PATIENT MEDICARE (WNR) MEDICARE (M) PART A Oct 17, 2006 PART A [id number] [facility] YENNY OVIEDO PATIENT FOR LIFE TFL* Apr 06, 2018 [id number] [phone] YENNY OVIEDO PATIENT Selected Encounter This section includes the information on record at [place] for the Encounter. Date/Time Encounter Type Encounter Description Reason Pro vider Source Jun 04, 2023 11:56 AM Outpatient Encounter ADMIN PAT ACTIVTIES (MASNONCT) IHE Encounter Template Text not used by [place] Plan of Treatment: Future Appointments (+ 6 months) and Future Tests (+/- 45 days) The Plan of Treatment section includes future care activities for the patient from all [place] [facility]. This section includes future appointments [...] AMBULATORY - MEDICINE [facility] Jun 09, 2023 08:30 AM AM[facility]ATORY - MEDICINE [facility] Jun 09, 2023 02:30 PM AMBULATORY - REHAB MEDICIN [facility] [place] [facility] Jun 16, 2023 08:00 AM AMBULATORY - REHAB MEDICIN E [facility] [place] [facility] Jun 23, 2023 07:30 AM AMBULATORY - REHAB MEDICIN [facility] [place] [facility] Jun 23, 2023 08:00 AM AMBULATORY - MEDICINE [facility] [place] [facility] Jul 04, 2023 09:00 AM AMBULATORY - REHAB MEDICIN E [facility] [place] [facility] Jul 08, 2023 10:00 AM AMBULATORY - REHAB MEDICIN [facility] [place] [facility] Jul 17, 2023 08:30 AM AMBULATORY - REHAB MEDICIN [facility] [place] [facility] Jul 17, 2023 12:00 PM AMBULATORY - NONE [facility] [place] [facility] Jul 21, 2023 01:30 PM AMBULATORY - MEDICINE [facility] [place] [facility] Jul 24, 2023 08:30 AM AMBULATORY - REHAB MEDICIN [facility] [place] [facility] Jul 31, 2023 08:30 AM AMBULATORY - REHAB MEDICIN E [facility] [place] [facility] Aug 04, 2023 08:00 AM AM[facility]ATORY - [facility]ICINE [facility] Aug 04, 2023 08:30 AM AM[facility]ATORY - MEDICINE [facility] Aug 06, 2023 09:00 AM AMBULATORY - REHAB MEDICIN E [facility] [place] [facility] Aug 20, 2023 08:30 AM AMBULATORY - REHAB MEDICIN E [facility] [place] [facility] Aug 26, 2023 09:00 AM AMBULATORY - REHAB MEDICIN E [facility] [place] [facility] Sep 01, 2023 09:00 AM AMBULATORY - REHAB MEDICIN E [facility] [place] [facility] Sep 09, 2023 08:00 AM [facility] Social History: Smoking Status (Most current) [...] ity Mar 28, 2021 03:28 PM [facility] Tobacco Use History This section includes a history of the smoking, or tobacco-related health factors, that were collected on or before the date of the Encounter. The data comes from the [place] facility where the Encounter took place. Date/Time Smoking Status/Tobacco Use Comment F acility Mar 28, 2021 03:28 PM VA-TOBACCO QUIT 15 YRS OR MORE [place] [facility] [place] [facility] Dec 02, 2019 09:36 AM VA-TOBACCO NEVER USED [place] [facility] Apr 23, 2005 10:19 AM QUIT [facility]BACCO USE [facility] Advance Directives: All historical and current [...] 16, 2011 ADVANCE DIRECTIVE DISCUSSION MARGARITA TERRAZAS [place] Encounter Notes: All associated encounter notes This section contains the clinical notes associated to the Encounter. Date/Time Encounter Note(s) Provider Source Jun 04, 2023 11:56 AM ADMINISTRATIVE NOT E: LOCAL TITLE: CCC: SCHEDULING ADMINISTRATION STANDARD TITLE: ADMINISTRATIVE NOTE DATE OF NOTE: JUN 04, 2023@11:56:34 ENTRY DATE: JUN 04, 2023@11:56:34 AUTHOR: SUSAN RAMOS EXP COSIGNER: URGENCY: STATUS: COMPLETED CCC: SCHEDULING ADMINISTRATION Has ADDENDA Patient Demographics Patient Name: ANDREEA OVIEDO Patient Primary Phone: [phone] Patient Primary [address]: [address] [place] [id number] Patient : 1955 Patient Age: 68 Caller/Recipient Relation to Patient: Self Administrative Administrative Note Reason: Other Administrative Note Comments: Pt called in regarding a fax that was sent over his outside provider. He would like a call back to follow up on this [phone]. /lisa/ SUSAN MADERA 1 [facility] Signed: 06/04/2023 11:56 Receipt Acknowledged By: 06/09/2023 10:23 /es/ AYAAN BURGESS ADVANCED DIP STAND LOADER 06/04/2023 14:26 /es/ ELOINA RAMIREZ RN-BC REGISTERED NURSE 06/04/2023 13:16 /lisa/ MARY WATTS LPN Licensed Practical Nurse 06/04/2023 ADDENDUM STATUS: COMPLETED Called and spoke with him and his and they report that has established with DINO Mendez in [facility] and they are trying to have prescription sent to his current [facility] from his [facility] cardiology provider for cardizem. They received secure message reply from [facility] RN in [place] as speaking with author on phone and will follow up with them as advised. /lisa/ ELOINA RAMIREZ RN-BC REGISTERED NURSE Signed: 06/04/2023 14:28 SUSAN RAMOS [place] [facility]
--- OUTSIDE RECORDS SUMMARY | 2024-05-10 07:31 | XMS_ITS ---
Author Name [place] Address [address] [place] [address] Care Team Providers Care High Heel Builder Name Role Phone CHITO SEGURA Primary Care [...] PART A Feb 16, 2018 PART A [id number] YENNY OVIEDO PATIENT MEDICARE (WNR) MEDICARE (M) PART B Feb 16, 2018 PART B [id number] YENNY OVIEDO ES PATIENT MEDICARE (WNR) MEDICARE (M) PART A Oct 17, 2006 PART A [id number] [facility] YENNY OVIEDO PATIENT FOR LIFE TFL* Apr 06, 2018 [id number] YENNY OVIEDO PATIENT Selected Encounter This section includes the information on record at [place] for the Encounter. Date/Time Encounter Type Encounter Description Reason Provider Source May 30, 2023 02:00 PM Outpatient Encounter PRIMARY CARE/MEDICINE AISHA SANDERS Ayah Encounter Template Text not used by [place] Plan of Treatment: Future Appointments (+ 6 months) and Future Tests (+/- 45 days) The Plan of Treatment section includes future care activities for the patient from all [place] [facility] This section includes future appointments and future orders which are active, pending or scheduled. Future Appointments This section includes appointments that were scheduled to occur 6 months from the date of the Encounter, up to a maximum of 20 appointments. The data comes from all [place] treatment facilities. Appointment Date/Time Appointment Type Appointme nt Facility Name Jun 03, 2023 03:30 PM AMBULATORY [facility] [place] [facility] Jun 04, 2023 10:00 AM [facility]ICINE [facility] Jun 09, 2023 08:00 AM [facility]ORY - MEDICINE [facility] Jun 09, 2023 08:30 [facility] Jun 09, 2023 02:30 PM AMBULATORY - [facility]IN [facility] [place] [facility] Jun 16, 2023 08:00 AM AMBULATORY - [facility]IN [facility] [place] [facility] Jun 23, 2023 07:30 AM AMBULATORY - [facility]IN [facility] [place] [facility] Jun 23, 2023 08:00 AM AMBULATORY [facility] MEDICINE [facility] [place] [facility] Jul 04, 2023 09:00 AM AMBULATORY - [facility]IN [facility] [place] [facility] Jul 08, 2023 10:00 AM AMBULATORY - RE[facility]AB [facility]IN [facility] [place] [facility] Jul 17, 2023 08:30 AM AMBULATORY - REHAB [facility]ICIN [facility] [place] [facility] Jul 17, 2023 12:00 PM AMBULATORY - NONE [facility] [place] [facility] Jul 21, 2023 01:30 PM AMBULATORY - MEDICINE [facility] [place] [facility] Jul 24, 2023 08:30 AM AMBULATORY - REHAB MEDICIN [facility] [place] [facility] Jul 31, 2023 08:30 AM AMBULATORY [facility] [place] [facility] Aug 04, 2023 08:00 AM [facility]ORY [place]IC[place] [place] Aug 04, 2023 08:30 AM AM[facility]ORY [place]IC[place] [place] Aug 06, 2023 09:00 AM [facility] Aug 20, 2023 08:30 AM [facility] Aug 26, 2023 09:00 AM [facility] Social History: Smoking Status (Most current) and Tobacco Use (All prior to encounter date) This section includes the most current, and the historical, smoking and tobacco- related health factors from the [place] facility where the Encounter took place. Current Smoking Status This section includes the most current smoking, or tobacco-related health factor, from the [place] facility where the Encounter took place. Date/Time Current Smoking Status Comment Facil ity Mar 28, 2021 03:28 PM VA-TOBACCO FORMER USER [facility] Tobacco Use History This section includes a history of the smoking, or tobacco-related health factors, that were collected on or before the date of the Encounter. The data comes from the [place] facility where the Encounter took place. Date/Time Smoking Status/Tobacco Use Comment F acility Mar 28, 2021 03:28 PM VA-TOBACCO QUIT 15 YRS OR MORE [facility] Dec 02, 2019 09:36 AM VA-TOBACCO NEVER USED [facility] Apr 23, 2005 10:19 AM QUIT TOBACCO USE IN PAST YEAR [facility] Advance Directives: All historical and current Section Date Range: From patient's date of to the date document was created. This section includes ALL of a patient's completed or amended [place] Advance and Rescinded Directives. The entries below indicate that a directive exists for the patient, but an actual copy is not included with this document. The data comes from all [place] facilities. Date Advance Directives Provider Source Dec 16, 2011 ADVANCE DIRECTIVE DISCUSSION MARGARITA TERRAZASFIELD Encounter Notes: All associated encounter notes This section contains the clinical notes associated to the Encounter. Date/Time Encounter Note(s) Provider Source May 30, 2023 02:00 PM PRIMARY CARE SECUR E MESSAGING: LOCAL TITLE: PRIMARY CARE SECURE MESSAGING STANDARD TITLE: PRIMARY CARE SECURE MESSAGING DATE OF NOTE: MAY 30, 2023@14:00 ENTRY DATE: MAY 30, 2023@14:00:40 AUTHOR: AISHA SANDERS EXP COSIGNER: URGENCY: STATUS: COMPLETED ------Original Message ------- Sent: 05/30/2023 11:33 AM ET From: ANDREEA OVIEDO To: Sebas SEGURA_PRIMARY CARE_[facility] Subject: Medication:Diltiazem prescription Good morning, My pourer bull ladle Dr. James Fernando faxed a new prescription to you on 26 May 2023 for diltiazem HCL ER 180 mg. He has been titrating the dose since January, and this prescription that I require. I'm checking to see if you have received this prescription and if not please let me know so I can follow up with his office. Thank you. Andreea Oviedo [phone] ------Original Message ------- Sent: 05/30/2023 02:00 PM ET From: AISHA SANDERS To: ANDREEA OVIEDO Subject: Medication:Diltiazem prescription I checked with Pharmacy and it was not sent to them to fill. Their fax is and their phone number is [phone] Thank you for your service, MANJU Ware - PACT Rubber Cutting Machine Tender /es/ AISHA SANDERS RN REGISTERED NURSE Signed: 05/30/2023 14:00 AISHA SANDERS [place] [facility]
--- OUTSIDE RECORDS SUMMARY | 2024-05-10 07:31 | XMS_ITS | Encounter Summary ---
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 Address [address] [place] [id number] Care Team Providers Care Windsmith Name Role Phone CHITO SEGURA Primary Care [...] PART A Feb 16, 2018 PART A [id number] YENNY OVIEDO ES PATIENT MEDICARE (WNR) MEDICARE (M) PART B Feb 16, 2018 PART B [id number] YENNY OVIEDO ES PATIENT MEDICARE (WNR) MEDICARE (M) PART A Oct 17, 2006 PART A [id number] [facility] YENNY OVIEDO PATIENT FOR LIFE TFL* Apr 06, 2018 [id number] YENNY OVIEDO PATIENT Selected Encounter This section includes the information on record at [place] for the Encounter. Date/Time Encounter Type Encounter Description Reason Provider Source Jun 03, 2023 03:30 PM THERAPEUTIC EXERCISES OCCUPATIONAL THERAPY ICD-10-CM M25.312 Other instability, left shoulder MACHON,NAN E IHE Encounter Template Text not used by [place] Assessments - Encounter Diagnoses This section includes the primary and secondary diagnoses documented for the Encounter. Date/Time Primary/Secondary Diagnosis Diagnosis Name Provider Source Jun 03, 2023 03:46 PM PRIMARY Other instability, left shoulder MACHON,NAN E [place] [facility] [facility] Plan of Treatment: Future Appointments (+ 6 months) and Future Tests (+/- 45 days) The Plan of Treatment section includes future care activities for the patient from all [place] [facility]. This section includes future appointments and future orders which are active, pending or scheduled. Future Appointments This section includes appointments that were scheduled to occur 6 months from the date of the Encounter, up to a maximum of 20 appointments. The data comes from all [place] treatment facilities. Appointment Date/Time Appointment Type Appointme nt Facility Name Jun 04, 2023 10:00 AM [facility]ULATORY - MEDICINE [facility] Jun 09, 2023 08:00 AM [facility]ATORY - MEDICINE [facility] Jun 09, 2023 08:30 AM [facility]ULATORY - MEDICINE [facility] Jun 09, 2023 02:30 PM AMBULATORY - RE[facility]ICIN [facility] [place] [facility] Jun 16, 2023 08:00 AM AMBULATORY - REHAB MEDICIN E [facility] [place] [facility] Jun 23, 2023 07:30 AM AMBULATORY - REHAB [facility]IN [facility] [place] [facility] Jun 23, 2023 08:00 AM AMBULATORY - MEDICINE [facility] [place] [facility] Jul 04, 2023 09:00 AM AMBULATORY - REHAB MEDICIN [facility] [place] [facility] Jul 08, 2023 10:00 AM AMBULATORY - REHAB [facility]IN [facility] [place] [facility] Jul 17, 2023 08:30 AM AMBULATORY - REHAB MED[facility]IN [facility] [place] [facility] Jul 17, 2023 12:00 PM AMBULATORY - NONE [facility] [place] [facility] Jul 21, 2023 01:30 PM AMBULATORY - MEDICINE [facility] [place] [facility] Jul 24, 2023 08:30 AM AMBULATORY - REHAB MEDICIN [facility] [place] [facility] Jul 31, 2023 08:30 AM AMBULATORY - REHAB MEDICIN [facility] [place] [facility] Aug 04, 2023 08:00 AM AMBULATORY - MEDICINE [facility] [place] Aug 04, 2023 08:30 AM AMBULATORY - MEDICINE [place] [place] Aug 06, 2023 09:00 AM AMBULATORY - REHAB MEDICIN [facility] [place] [facility] Aug 20, 2023 08:30 AM AMBULATORY - REHAB MEDICIN E [facility] [place] [facility] Aug 26, 2023 09:00 AM AMBULATORY - REHAB MEDICIN E [facility] [place] [facility] Sep 01, 2023 09:00 AM AMBULATORY - REHAB MEDICIN E [place] [facility] [place] [facility] Social History: Smoking Status (Most [...] 28, 2021 03:28 PM [facility]ACCO [facility] Tobacco Use History This section includes a history of the smoking, or tobacco-related health factors, that were collected on or before the date of the Encounter. The data comes from the [place] facility where the Encounter took place. Date/Time Smoking Status/Tobacco Use Comment F acility Mar 28, 2021 03:28 PM VA-TOBACCO QUIT 15 YRS OR MORE [place] [facility] [place] [facility] Dec 02, 2019 09:36 AM VA-TOBACCO NEVER USED [place] [facility] [facility] Apr 23, 2005 10:19 AM QUIT TOBACCO USE [facility] [place] [facility] Advance Directives: All historical and current [...] 2011 ADVANCE DIRECTIVE DISCUSSION JOSEF TERRAZASCARLOS PEPE SANCHEZFIELD Encounter Notes: All associated encounter notes This section contains the clinical notes associated to the Encounter. 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 Special instructions: passive/active ROM and gentle therabands. 16 weeks 4 days post-op SUBJECTIVE: Pt reports that his shoulder is sore from the exercises. Pain Level: 4-5/10 OBJECTIVE: THERAPEUTIC EXERCISE: *UBE 2' forward, 2' backward 1.0 *hiram into flexion, w/ 10 second hold on L, x10 *wall ladder into abduction, 35x5 *wall slides into flexion, 1x10 ADDED: *wall walk into scaption, 35x5 *IR iso's, 5 second hold x5 *ER iso's, 5 second hold x5 Access Code: [email or web address] URL: [email or web address] / Date: 06/03/2023 Prepared by: [facility] Exercises - Standing Shoulder Abduction Finger [...] 7 x weekly - 3 sets - 3 reps - 5 hold - Standing Isometric Shoulder External Rotation with Doorway - 1 x daily - 7 x weekly - 3 sets - 3 reps - 5 hold MINUTES: MANUAL THERAPY: *mobilization to anterior shoulder musculature, [...] pt tolerated tx well this date. he felt that the supine TE was too easy; discussed that it was important to engage in daily to improve his proprioception. pt v/u. added on 3 new exercises which he tolerated well. during mobilization, pt reported tightness as well as ttp. stiffness noted following tx, but no increase in pain. PLAN: continue w/ OT POC; modify tx as needed. pt is in agreement w/ this POC. /lisa/ Nan Pike, MS OTR/[place]wart, CHT Occupational Therapist Signed: 06/03/2023 15:46 NAN PIKE [facility]
--- OUTSIDE RECORDS SUMMARY | 2024-05-10 07:31 | XMS_ITS | Encounter Summary ---
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 Address [address] [place] [address] Care Team Providers Care Slot Floor Person Name Role Phone CHITO SEGURA Primary Care [...] PART A Feb 16, 2018 PART A [id number] YENNY OVIEDO PATIENT MEDICARE (WNR) MEDICARE (M) PART B Feb 16, 2018 PART B [id number] YENNY OVIEDO ES PATIENT MEDICARE (WNR) MEDICARE (M) PART A Oct 17, 2006 PART A [id number] [facility] [phone] YENNY OVIEDO PATIENT FOR LIFE TFL* Apr 06, 2018 [id number] YENNY OVIEDO PATIENT Selected Encounter This section includes the information on record at [place] for the Encounter. Date/Time Encounter Type Encounter Description Reason Pro vider Source Jun 06, 2023 04:10 PM Outpatient Encounter PRIMARY CARE/MEDICINE IHE Encounter Template Text not used by [place] Plan of Treatment: Future Appointments (+ 6 months) and Future Tests (+/- 45 days) The Plan of Treatment section includes future care activities for the patient from all [place] [facility] This section includes future appointments and [...] 2023 08:00 AM AMBULATORY - MEDICINE [facility] Jun 09, 2023 08:30 AM AMBULATORY - MEDICINE [facility] Jun 09, 2023 02:30 PM AMBULATORY - RE[facility] MEDICIN E [facility] [place] [facility] Jun 16, 2023 08:00 AM AMBULATORY - REHAB MEDICIN E [facility] [place] [facility] Jun 23, 2023 07:30 AM AMBULATORY - REHAB MEDICIN E [facility] [place] [facility] Jun 23, 2023 08:00 AM AMBULATORY - MEDICINE [facility] [place] [facility] Jul 04, 2023 09:00 AM AMBULATORY - REHAB MEDICIN E [facility] [place] [facility] Jul 08, 2023 10:00 AM AMBULATORY - REHAB MEDICIN E [facility] [place] [facility] Jul 17, 2023 08:30 AM AMBULATORY - REHAB MEDICIN E [facility] [place] [facility] Jul 17, 2023 12:00 PM AMBULATORY - NONE [facility] [place] [facility] Jul 21, 2023 01:30 PM AMBULATORY - MEDICINE [facility] [place] [place] [facility] Jul 24, 2023 08:30 AM AMBULATORY - REHAB MEDICIN E [facility] [place] [facility] Jul 31, 2023 08:30 AM AMBULATORY - REHAB MEDICIN E [facility] [place] [facility] Aug 04, 2023 08:00 AM AMBULATORY - MED[facility]INE [facility] Aug 04, 2023 08:30 AM AMBULATORY - MEDICINE [facility] Aug 06, 2023 09:00 AM AMBULATORY - REHAB MEDICIN E [place] [facility] [place] [facility] Aug 20, 2023 08:30 AM AMBULATORY - REHAB MEDICIN E [facility] [facility] Aug 26, 2023 09:00 AM AMBULATORY - REHAB MEDICIN E [facility] [facility] Sep 01, 2023 09:00 AM AMBULATORY - REHAB MEDICIN E [place] [facility] [place] [facility] Sep 09, 2023 08:00 AM [facility] Social History: Smoking Status (Most [...] 28, 2021 03:28 PM [facility] Tobacco Use History This section includes a history of the smoking, or tobacco-related health factors, that were collected on or before the date of the Encounter. The data comes from the [place] facility where the Encounter took place. Date/Time Smoking Status/Tobacco Use Comment F acility Mar 28, 2021 03:28 PM VA-TOBACCO QUIT 15 YRS OR MORE [place] [facility] Dec 02, 2019 09:36 AM VA-TOBACCO NEVER USED [place] [facility] Apr 23, 2005 10:19 AM QUIT TOBACCO USE [facility] Advance Directives: All historical and current Section Date Range: From patient's date of to the date document was created. This section includes ALL of a patient's completed or amended [place] Advance and Rescinded Directives. The entries below indicate that a directive exists for the patient, but an actual copy is not included with this document. The data comes from all [place] facilities. Date Advance Directives Provider Source Dec 16, 2011 ADVANCE DIRECTIVE DISCUSSION MARGARITA TERRAZAS Encounter Notes: All associated encounter notes This section contains the clinical notes associated to the Encounter. Date/Time Encounter Note(s) Provider Source Jun 06, 2023 04:10 PM PRIMARY CARE TELEP LAURYN ENCOUNTER NOTE: LOCAL TITLE: TELEPHONE NOTE/PRIMARY CARE STANDARD TITLE: PRIMARY CARE TELEPHONE ENCOUNTER NOTE DATE OF NOTE: JUN 06, 2023@16:10 ENTRY DATE: JUN 06, 2023@16:11:06 AUTHOR: TRUNG ALARCON COSIGNER: URGENCY: STATUS: COMPLETED AMSA called and spoke with about who his primary is,he stated he cancelled his appointment with [facility] and tranfered his Primary to [place]. He is keeping all of his other [facility] appointments with [facility]/PHARM/PACT 1 and [facility]/PODIATRY. /es/ TRUNG ALARCON ADVANCED PROFESSOR OF POLITICAL SCIENCE Signed: 06/06/2023 16:21 TRUNG ALARCON [place] [facility]
--- OUTSIDE RECORDS SUMMARY | 2024-05-10 07:32 | XMS_ITS | Encounter Summary ---
Author Name [facility] ([facility]) [facility] Address [address] [place] [id number] Care Team Providers Care Business Excellence Leader Name Role Phone CHITO SEGURA Primary Care [...] PART A Feb 16, 2018 PART A [id number] YENNY OVIEDO ANDREW PATIENT MEDICARE (WNR) MEDICARE (M) PART B Feb 16, 2018 PART B [id number] YENNY OVIEDO ANDREW PATIENT MEDICARE (WNR) MEDICARE (M) PART A Oct 17, 2006 PART A [id number] YENNY OVIEDO PATIENT FOR LIFE TFL* Apr 06, 2018 [id number] YENNY OVIEDO PATIENT Selected Encounter This section includes the information on record at NH for the Encounter. Date/Time Encounter Type Encounter Description Reason Provider Source Jun 09, 2023 08:00 AM OFFICE O/P EST LOW 20 MIN PODIATRY ICD-10-CM L60.3 Nail dystrophy JUVENAL ROSS [facility] Encounter Template Text not used by NH Assessments - Encounter Diagnoses This section includes the primary and secondary diagnoses documented for the Encounter. Date/Time Primary/Secondary Diagnosis Diagnosis Name Provider Source Jun 09, 2023 08:23 AM PRIMARY Nail dystrophy JUVENAL ROSS [place] Jun 09, 2023 08:23 AM SECONDARY Irritant contact dermatitis due to oils and greases JUVENAL ROSS [place] Jun 09, 2023 08:23 AM SECONDARY Pain in left toe(s) JUVENAL ROSS [place] Jun 09, 2023 08:23 AM SECONDARY Pain in right toe(s) JUVENAL ROSS [place] Jun 09, 2023 08:23 AM SECONDARY Type 2 diabetes w diabetic peripheral angiopath w/o gangrene JUVENAL ROSS [place] Plan of Treatment: Future Appointments (+ 6 months) and Future Tests (+/- 45 days) The Plan of Treatment section includes future care activities for the [facility] This section includes future appointments and future orders which are active, pending or scheduled. Future Appointments This section includes appointments that were scheduled to occur 6 months from the date of the Encounter, up to a maximum of 20 appointments. The data comes from all [place] treatment facilities. Appointment Date/Time Appointment Type Appointme nt Facility Name Jun 16, 2023 08:00 AM AMBULATORY [facility] [place] [facility] Jun 23, 2023 07:30 AM AMBULATORY - [facility] [place] [facility] Jun 23, 2023 08:00 AM [facility] [place] [facility] Jul 04, 2023 09:00 AM AMBULATORY - [facility] MEDIC[facility] [place] [facility] Jul 08, 2023 10:00 AM AMBULATORY - REHAB MEDICIN [facility] [place] [facility] Jul 17, 2023 08:30 AM AMBULATORY - REHAB MEDICIN [facility] [place] [facility] Jul 17, 2023 12:00 PM AMBULATORY - NONE [facility] [place] [facility] Jul 21, 2023 01:30 PM [facility]ULATORY [facility] [place] [facility] Jul 24, 2023 08:30 AM AMBULATORY - [facility] MEDICIN [facility] [place] [facility] Jul 31, 2023 08:30 AM AMBULATORY - [facility] MEDICIN [facility] [place] [facility] Aug 04, 2023 08:00 AM [facility]ORY [place] [facility] [facility] [place] Aug 04, 2023 08:30 AM AM[facility]UL[facility]ORY [place] [facility] [place] Aug 06, 2023 09:00 AM AMBULATORY - [facility]IC[facility] [place] [facility] Aug 20, 2023 08:30 AM AMBULATORY - [facility]IC[facility] [place] [facility] Aug 26, 2023 09:00 AM AMBULATORY - [facility] MEDICIN [facility] [place] [facility] Sep 01, 2023 09:00 AM AMBULATORY - [facility] [place] [facility] Sep 09, 2023 08:00 AM [facility]ORY [facility] [place] [facility] Sep 15, 2023 09:00 AM AMBULATORY - [facility] [place] [facility] September 22, 2023 09:00 AM AMBULATORY - [facility]IC[facility] [place] [facility] September 29, 2023 08:00 AM [facility] Social History: Smoking Status (Most current) [...] 22, 2022 10:00 AM VA-TOBACCO FORMER USER [place] Tobacco Use History This section includes a history of the smoking, or tobacco-related health factors, that were collected on or before the date of the Encounter. The data comes from the NH facility where the Encounter took place. Date/Time Smoking Status/Tobacco Use Comment F acility Jul 22, 2022 10:00 AM VA-TOBACCO QUIT 15 YRS OR MORE [place] Dec 02, 2018 09:23 AM VA-TOBACCO FORMER USER [place] Dec 02, 2018 09:23 AM VA-TOBACCO QUIT 15 YRS OR MORE [place] Apr 20, 2018 10:23 AM VA-TOBACCO FORMER USER [place] Apr 20, 2018 10:23 AM VA-TOBACCO QUIT 15 YRS OR MORE [place] Dec 16, 2016 08:40 AM QUIT TOBACCO USE > 7 YEARS AGO [place] Jul 17, 2015 08:14 AM QUIT TOBACCO USE > 7 YEARS AGO quit many yrs ago [place] Aug 04, 2009 08:22 AM QUIT TOBACCO USE > 7 YEARS AGO quit over ten years ago [place] Dec 03, 2007 02:22 PM QUIT TOBACCO USE 1 -7 YEARS AGO [place] May 21, 2007 08:03 AM QUIT TOBACCO USE 1 -7 YEARS AGO [place] Jul 25, 2004 09:38 AM CURRENT SMOKER Smokes about 10 cigarettes/day, and trying to quit on his own [place] Apr 27, 2004 01:32 PM LIFETIME NON-TOBACCO USER [place] Advance Directives: All historical and current Section [...] 16, 2011 ADVANCE DIRECTIVE DISCUSSION MARGARITA TERRAZAS [place] Encounter Notes: All associated encounter notes This section contains the clinical notes associated to the Encounter. Date/Time Encounter Note(s) Provider Source Jun 09, 2023 07:19 AM PODIATRY NOTE: LOCAL TITLE: PODIATRY NOTE STANDARD TITLE: PODIATRY NOTE DATE OF NOTE: JUN 09, 2023@07:19 ENTRY DATE: JUN 09, 2023@07:19:21 AUTHOR: JUVENAL ROSS COSIGNER: URGENCY: STATUS: COMPLETED NOTE: HAS RECEIVED BOTH COVID VACCINE DOSES + 3 BOOSTERS AT [facility] LAST SEEN FOR TREATMENT: 04/07/2023 S: Pt. is a 68yo alert WDWN [...] LISINOPRIL Previous Surgery/Hospitalization: N/A *NOTE: A1c = 7.6 (LAST TAKEN: 04/2023) UCD=[id number] RISK: 2 HEIGHT:249 lb [113.2 kg] (12/02/2019 [...] present physical-medical status. Protective sensation utilizing a [place] lOg monofilament is 10/10 bilateral. BIOMECHANICAL: Exam [...] due to the underlying medical conditions. RTC: (08/03; 09/28 & @ 8AM) ) *REVIEWED HOME FOOT CARE FEET ARE IN EXCELLENT CONDITION AND I PROVIDED HIM WITH WRITTEN RECOMMENDATIONS FOR FOOT CARE TO BE REVIEWED AT HOME (FOOT CARE TIPS). 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 Medication Reconciliation: PERFORMED TODAY - SEE BELOW. Outpatient: Has the patient been taking medications as documented in the EMLR? YES: The patient has been taking medications as documented in the EMLR. Essential Medication List for Review used to complete this medication reconciliation. INCLUDED IN THIS LIST: Alphabetical list of active outpatient prescriptions dispensed from this [facility] (local) and dispensed from another NH or DoD facility (remote) as well as [...] FACILITY ALLERGY/ADR -------- CLNCL/HLTH RAJESH REPT EFF [id number] TAMSULOSIN [facility] [place] [facility] LIS[facility]IL [facility] [place] [...] [facility] [place] [facility]AL [facility] INCLUDED IN THIS LIST: Alphabetical list of active outpatient prescriptions dispensed from this VA (local) and dispensed from another NH or [facility] facility (remote) as well as inpatient orders (local pending and active), local clinic medications, locally documented non-VA medications, and local prescriptions that have or been discontinued in the past 90 days. Non-VA Meds Last Documented On: Apr 28, 2023 NOTE The display of VA prescriptions dispensed from another NH or [facility] facility (remote) is limited to active outpatient prescription entries matched to National Drug File at the originating site and may not include some items such as investigational drugs, compounds, etc. NOT INCLUDED IN THIS LIST: Medications self-entered by the patient into personal health records (i.e. [employer]) are NOT included in this list. Non-VA medications documented outside this NH, remote inpatient orders (regardless of status) and remote clinic medications are NOT included in this list. The patient and provider must always discuss medications the patient is taking, regardless of where the medication was dispensed or obtained. Non-VA ASPIRIN 81MG EC TAB TAKE ONE TABLET BY MOUTH EVERY DAY OUTPT ATORVASTATIN CALCIUM 40MG TAB (Status = Discontinued) TAKE ONE-HALF TABLET BY MOUTH EVERY EVENING FOR HIGH CHOLESTEROL FOR CHOLESTEROL Rx# [id number] Last Released: 04/01/23 Qty/Days Supply: Rx Expiration Date: 07/23/23 Refills Remainin Indication: FOR HIGH CHOLESTEROL OUTPT ATORVASTATIN CALCIUM 40MG TAB (Status = Active/Suspended) TAKE ONE-HALF TABLET BY MOUTH EVERY EVENING FOR CHOLESTEROL Rx# [id number] Last Released: Qt Supply: Rx Expiration Date: 04/28/24 Refills Remainin Indication: FOR HIGH CHOLESTEROL OUTPT AZITHROMYCIN 500MG TAB (Status = ) TAKE ONE TABLET BY MOUTH ONE TIME 1 HOUR PRIOR DENTAL APPOINTMENT PREMEDICATION Rx# [id number] Last Released: 04/03/23 Qty/Days Supply: 09/20 Rx Expiration Date: 05/01/23 Refills Remainin Indication: FOR INFECTION CAUSED BY BACTERIA Non-VA CHOLECALCIF 25MCG (D3-1,000UNIT) TAB TAKE ONE TABLET BY MOUTH ONCE DAILY Indication: FOR VITAMIN D DEFICIENCY OUTPT CYANOCOBALAMIN 1000MCG TAB (Status = Active) TAKE ONE TABLET BY MOUTH ONCE DAILY Rx# [id number] Last Released: 04/30/23 Qty/Days Supply: Rx Expiration Date: 04/28/24 Refills Remainin Indication: FOR PREVENTION OF VITAMIN B12 DEFICIENCY OUTPT CYANOCOBALAMIN 500MCG TAB (Status = Discontinued) TAKE ONE TABLET BY MOUTH ONCE DAILY FOR PREVENTION OF VITAMIN B12 DEFICIENCY Rx# [id number] Last Released: 03/15/23 Qty/Days Supply: 100 Rx Expiration Date: 10/04/23 Refills Remainin Indication: FOR PREVENTION OF VITAMIN B12 DEFICIENCY Non-VA DICLOFENAC 1% GEL (EQV-VOLTAREN) GEL,TOP APPLY TOPICALLY FOUR TIMES A DAY Non-VA DILTIAZEM (EQV-CARDIZEM) 180MG 24HR CAP TAKE 1 CAPSULE BY MOUTH AT NOON Indication: FOR HIGH BLOOD PRESSURE OUTPT DILTIAZEM (EQV-CARDIZEM) 180MG 24HR CAP (Status = Active) TAKE ONE CAPSULE BY MOUTH ONCE DAILY Rx# [id number] Last Released: 06/05/23 Qty/Days Supply: Rx Expiration Date: 06/04/24 Refills Remainin OUTPT FINASTERIDE 5MG TAB (Status = Active/Suspended) TAKE ONE TABLET BY MOUTH DAILY FOR PROSTATE Rx# [id number] Last Released: 04/05/23 Qty/Days Supply: Rx Expiration Date: 02/19/24 Refills Remainin OUTPT FLUTICASONE PROP 50MCG 120D NASAL INHL (Status = Active) INSTILL 2 SPRAYS INTO EACH NOSTRIL ONCE DAILY NEEDED FOR NASAL IRRITATION/INFLAMMATION Rx# [id number] Last Released: 05/28/23 Qty/Days Supply: Rx Expiration Date: 02/19/24 Refills Remainin OUTPT METFORMIN HCL 750MG 24HR SA TAB (Status = Active) TAKE TWO TABLETS BY MOUTH EVERY EVENING Rx# [id number] Last Released: 04/25/23 Qty/Days Supply: 180 Rx Expiration Date: 02/14/24 Refills Remainin Indication: FOR TYPE 2 DIABETES MELLITUS OUTPT METOPROLOL SUCCINATE 25MG SA TAB (Status = Discontinued) TAKE ONE TABLET BY MOUTH ONCE DAILY FOR HEART FAILURE Rx# [id number] Last Released: 03/15/23 Qty/Days Supply: Rx Expiration Date: 02/19/24 Refills Remainin OUTPT METOPROLOL SUCCINATE 25MG SA TAB (Status = Active) TAKE ONE TABLET BY MOUTH TWICE DAILY FOR HEART FAILURE Rx# [id number] Last Released: 04/30/23 Qty/Days Supply: Rx Expiration Date: 04/28/24 Refills Remainin Indication: FOR CHRONIC HEART FAILURE OUTPT MICONAZOLE NITRATE 2% TOP PWDR (Status = Active) APPLY SMALL AMOUNT TOPICALLY TWICE DAILY Rx# [id number] Last Released: 04/01/23 Qty/Days Supply: Rx Expiration Date: 07/26/23 Refills Remainin Indication: FOR FUNGAL INFECTION OF SKIN OUTPT MOMETASONE 200MCG/ACTUAT 120D ORAL INHL (Status = Active/Suspended) INHALE 2 PUFFS BY MOUTH TWICE DAILY FOR CONTROLLER MEDICATION FOR ASTHMA --RINSE MOUTH AFTER EACH USE Rx# [id number] Last Released: 04/23/23 Qty/Days Supply: Rx Expiration Date: 04/23/24 Refills Remainin Indication: FOR CONTROLLER MEDICATION FOR ASTHMA OUTPT MOMETASONE FUROATE 220MCG ORAL INHL 60 (Status = Discontinued) INHALE 2 PUFFS BY MOUTH TWICE DAILY FOR CONTROLLER MEDICATION FOR ASTHMA --RINSE MOUTH AFTER EACH USE Rx# [id number] Last Released: 04/25/23 Qty/Days Supply: Rx Expiration Date: 07/27/23 Refills Remainin Indication: FOR CONTROLLER MEDICATION FOR ASTHMA OUTPT MONTELUKAST NA 10MG TAB (Status = Discontinued) TAKE ONE TABLET BY MOUTH EVERY EVENING FOR CONTROLLER MEDICATION FOR ASTHMA Rx# [id number] Last Released: 04/01/23 Qty/Days Supply: Rx Expiration Date: 07/23/23 Refills Remainin Indication: FOR CONTROLLER MEDICATION FOR ASTHMA OUTPT MONTELUKAST NA 10MG TAB (Status = Active/Suspended) TAKE ONE TABLET BY MOUTH EVERY EVENING FOR CONTROLLER MEDICATION FOR ASTHMA Rx# [id number] Last Released: Qty/Days Supply: Rx Expiration Date: 04/28/24 Refills Remainin Indication: FOR CONTROLLER MEDICATION FOR ASTHMA OUTPT OMEPRAZOLE 20MG EC CAP (Status = Active) TAKE TWO CAPSULES BY MOUTH DAILY FOR STOMACH ACID Rx# [id number] Last Released: 05/28/23 Qty/Days Supply: 180 Rx Expiration Date: 02/19/24 Refills Remainin OUTPT SEMAGLUTIDE 0.25MG/0.375ML INJ PEN 3ML (Status = Discontinued) INJECT 0.25MG SUBCUTANEOUSLY ONCE A WEEK FOR TYPE 2 DIABETES MELLITUS Rx# [id number] Last Released: 03/11/23 Qty/Days Supply: 06/15 Rx Expiration Date: 04/06/23 Refills Remainin Indication: FOR TYPE 2 DIABETES MELLITUS OUTPT SEMAGLUTIDE 0.25MG/0.375ML INJ PEN 3ML (Status = Discontinued) INJECT 0.5MG SUBCUTANEOUSLY ONCE A WEEK Rx# [id number] Last Released: 04/07/23 Qty/Days Supply: 06/15 Rx Expiration Date: 04/04/24 Refills Remainin Indication: FOR TYPE 2 DIABETES MELLITUS OUTPT SEMAGLUTIDE 1MG/0.75ML INJ PEN 3ML (Status = Discontinued) INJECT 1MG SUBCUTANEOUSLY ONCE A WEEK Rx# [id number] Last Released: 04/23/23 Qty/Days Supply: 06/15 Rx Expiration Date: 04/14/24 Refills Remainin Indication: FOR TYPE 2 DIABETES MELLITUS OUTPT SEMAGLUTIDE 2MG/0.75ML INJ PEN 3ML (Status = Active) INJECT 2MG SUBCUTANEOUSLY ONCE A WEEK FOR TYPE 2 DIABETES MELLITUS Rx# [id number] Last Released: 06/04/23 Qty/Days Supply: 06/17 Rx Expiration Date: 06/04/24 Refills Remainin Indication: FOR TYPE 2 DIABETES MELLITUS OUTPT TADALAFIL 5MG TAB (Status = Active) TAKE ONE TABLET BY MOUTH ONCE DAILY FOR BPH Rx# [id number] Last Released: 05/27/23 Qty/Days Supply: Rx Expiration Date: 02/07/24 Refills Remainin Indication: FOR ERECTILE DYSFUNTION OUTPT TERAZOSIN HCL 10MG CAP (Status = Active) TAKE ONE CAPSULE BY MOUTH AT BEDTIME FOR BPH Rx# [id number] Last Released: 05/28/23 Qty/Days Supply: 90/ Rx Expiration Date: 12/14/23 Refills Remainin OUTPT WATER STERILE FOR IRRIGATION (Status = Active) IRRIGATE MODERATE AMOUNT DIRECTED ONCE DAILY FOR C-PAP MACHINE Rx# [id number] Last Released: 05/24/23 Qty/Days Supply: 41853/60 Rx Expiration Date: 07/26/23 Refills Remainin SUPPLIES OUTPT ACCU-CHEK GUIDE (GLUCOSE) TEST STRIP (Status = Discontinued) USE 1 STRIP TO TEST BLOOD SUGARS ONCE DAILY NEEDED DIABETES MELLITUS Rx# [id number] Last Released: Qty/Days Supply: 50/180 Rx Expiration Date: 02/19/24 Refills Remainin Indication: DIABETES MELLITUS OUTPT ACCU-CHEK GUIDE (GLUCOSE) TEST STRIP (Status = Active) USE 1 STRIP TO TEST BLOOD SUGARS TWO TIMES A WEEK Rx# [id number] Last Released: 06/03/23 Qty/Days Supply: 50/180 Rx Expiration Date: 06/03/24 Refills Remainin Indication: DIABETES MELLITUS OUTPT LANCET,SOFTCLIX (Status = Active) USE 1 LANCET ONCE DAILY DIRECTED BY PROVIDER DIABETES MELLITUS Rx# [id number] Last Released: 07/26/22 Qty/Days Supply: 100/90 Rx Expiration Date: 07/26/23 Refills Remainin Indication: DIABETES MELLITUS /es/ 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
--- OUTSIDE RECORDS SUMMARY | 2024-05-10 07:32 | XMS_ITS | Encounter Summary ---
Author Name Department [place] Organization [place] Address [address] [place] [id number] Care Team Providers Care Instructional Technology Facilitator Name Role Phone CHITO SEGURA Primary Care [...] PART A Feb 16, 2018 PART A [id number] [phone] YENNY OVIEDO PATIENT MEDICARE (WNR) MEDICARE (M) PART B Feb 16, 2018 PART B [id number] YENNY OVIEDO ES PATIENT MEDICARE (WNR) MEDICARE (M) PART A Oct 17, 2006 PART A [id number] [facility] YENNY OVIEDO PATIENT FOR LIFE TFL* Apr 06, 2018 [id number] YENNY OVIEDO PATIENT Selected Encounter This section includes the information on record at [place] for the Encounter. Date/Time Encounter Type Encounter Description Reason Provider Source Jun 23, 2023 08:00 AM SELF-MGMT EDUC & TRAIN 1 PT SLEEP MEDICINE ICD-10-CM G47.30 Sleep apnea, unspecified JARMOLOWICZ,BE TSY E Encounter Template Text not used by [place] Assessments - Encounter Diagnoses This section includes the primary and secondary diagnoses documented for the Encounter. Date/Time Primary/Secondary Diagnosis Diagnosis Name Provider Source Jun 23, 2023 04:03 PM PRIMARY Sleep apnea, unspecified JARMOLOWICZ,BE TSY [place] [facility] [place] [facility] Plan of Treatment: Future Appointments (+ 6 months) and Future Tests (+/- 45 days) The Plan of Treatment section includes future care activities for the patient from all [place] [facility] This section includes future appointments [...] REHAB MEDICIN E [facility] [place] [facility] Jul 08, 2023 10:00 AM AMBULATORY - REHAB MEDICIN E [facility] [facility] Jul 17, 2023 08:30 AM AMBULATORY - REHAB MEDICIN E [facility] [place] [facility] Jul 17, 2023 12:00 PM AMBULATORY - NONE [place] [facility] [place] [place] [facility] Jul 21, 2023 01:30 PM AMBULATORY - MEDICINE [place] [facility] [place] [facility] Jul 24, 2023 08:30 AM AMBULATORY - REHAB MEDICIN E [facility] [facility] Jul 31, 2023 08:30 AM AMBULATORY - REHAB MEDICIN E [facility] [place] [facility] Aug 04, 2023 08:00 AM [facility]ATORY [facility] Aug 04, 2023 08:30 AM AMBULATORY - MEDICINE [facility] Aug 06, 2023 09:00 AM AMBULATORY - REHAB MEDICIN E [facility] [facility] Aug 20, 2023 08:30 AM AMBULATORY - REHAB MEDICIN E [facility] [place] [facility] Aug 26, 2023 09:00 AM AMBULATORY - REHAB MEDICIN E [facility] [facility] Sep 01, 2023 09:00 AM AMBULATORY - REHAB MEDICIN E [facility] [place] [facility] Sep 09, 2023 08:00 AM AMBULATORY - MEDICINE [facility] [place] [facility] Sep 15, 2023 09:00 AM AMBULATORY - REHAB MEDICIN E [facility] [facility] September 22, 2023 09:00 AM AMBULATORY - REHAB MEDICIN E [facility] [place] [facility] September 29, 2023 08:00 AM AM[place]ORY [place]IC[place] [place] September 29, 2023 08:30 AM AMBULATORY - MEDICINE [place] [place] October 01, 2023 09:00 AM AMBULATORY - REHAB MEDICIN E [facility] [facility] October 07, 2023 02:30 PM AMBULATORY - REHAB MEDICIN E [facility] [place] [facility] Lab Results: +/- 30 days of the encounter This section includes the Chemistry and Hematology Lab Results on record with [place] for the patient. Radiology Reports and Pathology Reports are provided separately, in subsequent sections. Lab Results This section contains the Chemistry/Hematology Results that were resulted 30 days before or 30 daysafter the date of the Encounter. Date/Time Source Result Type Result - Unit Interpretation Reference Range Comment Jul 17, 2023 07:35 AM [facility] HEMOGLOBIN A1C PANEL Specimen Type: [...] Apr 28, 2023 03:05 PM Reporting Lab: [facility] [address] [address] Performing Lab: [address] [address] HEMOGLOBIN A1C 6.5 H 4.0-5.6 Jul 17, 2023 07:35 AM [facility] LIVER FUNCTION Specimen Type: SERUM No comment entered. Ordering Provider: AYUSH SEGURA F Report Released Date/Time: Apr 28, 2023 03:05 PM Reporting Lab: [facility] [address] [address] Performing Lab: [address] [address] PROTEIN,TOTAL 6.2 g/dL 6.0-8.3 ALBUMIN 3.7 g/dL 3.5-5.0 ALKALINE PHOSPHATASE 35 U/L L 40-150 AST 12 U/L 5-34 ALT 13 U/L BILIRUBIN, TOTAL 0.8 mg/dL 0.2-1.2 Jul 17, 2023 07:35 AM [facility] BASIC METABOLIC PANEL (fasting) Specimen Type: SERUM No comment entered. Ordering Provider: AYUSH SEGURA F Report Released Date/Time: Apr 28, 2023 03:05 PM Reporting Lab: [facility] [address] [address] Performing Lab: [address] [address] UREA NITROGEN 14 mg/dL 7-25 GLUCOSE 128 mg/dL H 65-100 SODIUM 142 mmol/L 135-145 POTASSIUM 3.9 mmol/L 3.5-5.0 CHLORIDE 107 mmol/L 100-110 CO2 24 meq/L 20-30 CREATININE, Serum 0.69 mg/dL 0.50-1.40 eGFR(CKD-EPI 2020) >90 mL/min >60 Jul 17, 2023 07:35 AM [facility] VITAMIN B12 Specimen Type: SERUM No comment entered. Ordering Provider: AYUSH SEGURA F Report Released Date/Time: Apr 28, 2023 03:05 PM Reporting Lab: [facility] [address] [address] [address] Performing Lab: [address] [address] VITAMIN B12 643 pg/mL 200-900 Jul 17, 2023 07:35 AM [facility] MICROALBUMIN CREATININE RATIO PANEL Specimen Type: URINE No comment entered. Ordering Provider: AYUSH SEGURA F Report Released Date/Time: Apr 28, 2023 03:05 PM Reporting Lab: [facility] [address] [address] Performing Lab: [address] [address] MICROALBUMIN/C REATININE RATIO 37.0 mg/g H 0-29.9 MICROALBUMIN,Q UANTITATIVE 3.4 mg/dL RR UNAVAIL CREATININE URINE 91.89 mg/dL Jul 17, 2023 07:35 AM [facility] LIPID PANEL FASTING Specimen Type: SERUM No comment entered. Ordering Provider: AYUSH SEGURA Report Released Date/Time: Apr 28, 2023 03:05 PM Reporting Lab: [facility] [address] [address] Performing Lab: [address] [address] CHOLESTEROL 118 mg/dL TRIGLYCERIDE 107 mg/dL 0-150 [...] 28, 2021 03:28 PM VA-TOBACCO FORMER USER [facility] Tobacco Use History This section includes a history of the smoking, or tobacco-related health factors, that were collected on or before the date of the Encounter. The data comes from the [place] facility where the Encounter took place. Date/Time Smoking Status/Tobacco Use Comment F acility Mar 28, 2021 03:28 PM VA-TOBACCO QUIT 15 YRS OR MORE [facility] Dec 02, 2019 09:36 AM [place]-TOBACCO NEVER USED [facility] Apr 23, 2005 10:19 AM QUIT TOBACCO USE IN PAST YEAR [facility] Advance Directives: All historical and current Section Date Range: From patient's date of to the date document was created. This section includes ALL of a patient's completed or amended [place] Advance and Rescinded Directives. The entries below [...] Encounter. Date/Time Encounter Note(s) Provider Source Jun 23, 2023 01:58 PM RESPIRATORY THERAP Y NOTE: LOCAL TITLE: RESPIRATORY THERAPY NOTE(BLANK) STANDARD TITLE: RESPIRATORY THERAPY NOTE DATE OF NOTE: JUN 23, 2023@13:58 ENTRY DATE: JUN 23, 2023@13:58:17 AUTHOR: NEO WILKINS EXP COSIGNER: URGENCY: STATUS: COMPLETED with sleep apnea stopped at radiology window asking to have his CPAP machine evaluated. He stated it wasn't ramping up to a higher pressure and he was concerned. Gus's machine was set up and he was walked through the mask fit test wearing his mask. He was assured the device is working properly. Gus's CPAP machine is >5 years old with >93377 hours and he could use a replacement. He contacted his provider's office and a new consult was placed for a replacement machine. /lisa/ NEO WILKINS BA, POSTAL SERVICE MAIL PROCESSOR, RPFT RESPIRATORY THERAPIST Signed: 06/23/2023 16:03 NEO WILKINS [facility]
--- OUTSIDE RECORDS SUMMARY | 2024-05-10 07:32 | XMS_ITS | Encounter Summary ---
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 Address [address] [place] [address] Care Team Providers Care Border Measurer Name Role Phone CHITO SEGURA Primary Care [...] PART A Feb 16, 2018 PART A [id number] [phone] YENNY OVIEDO PATIENT MEDICARE (WNR) MEDICARE (M) PART B Feb 16, 2018 PART B [id number] YENNY OVIEDO ES PATIENT MEDICARE (WNR) MEDICARE (M) PART A Oct 17, 2006 PART A [id number] [facility] YENNY OVIEDO PATIENT FOR LIFE TFL* Apr 06, 2018 [id number] YENNY OVIEDO PATIENT Selected Encounter This section includes the information on record at [place] for the Encounter. Date/Time Encounter Type Encounter Description Reason Provider Source Mar 30, 2024 07:30 AM FIT SPECTACLES BIFOCAL OPTOMETRY ICD-10-CM Z46.0 Encounter for fit/adjst of spectacles and contact lenses MARY RONDON Encounter Template Text not used by [place] Assessments - Encounter Diagnoses This section includes the primary and secondary diagnoses documented for the Encounter. Date/Time Primary/Secondary Diagnosis Diagnosis Name Provider Source Mar 30, 2024 07:30 AM PRIMARY Encounter for fit/adjst of spectacles and contact lenses JACQUELYN WILCOX [place] [facility] Plan of Treatment: Future Appointments (+ 6 months) and Future Tests (+/- 45 days) The Plan of Treatment section includes future care activities for the patient from all [place] [facility]. This section includes future appointments and future orders which are active, pending or scheduled. Future Appointments This section includes appointments that were scheduled to occur 6 months from the date of the Encounter, up to a maximum of 20 appointments. The data comes from all [place] treatment facilities. Appointment Date/Time Appointment Type Appointme nt Facility Name Apr 06, 2024 09:00 AM AM[facility]ULATORY - MEDICINE [facility] Apr 12, 2024 08:00 AM AMBULATORY - MEDICINE [facility] Apr 12, 2024 11:00 AM AM[place]ULATORY [place] MEDICINE [place] [facility] Apr 12, 2024 01:30 PM AMBULATORY - MEDICINE [place] [facility] Apr 30, 2024 01:40 PM AMBULATORY - NONE [place] [facility] [place] [facility] May 28, 2024 08:30 AM AMBULATORY - MEDICINE [place] [facility] [place] [facility] May 31, 2024 11:00 AM AMBULATORY - MEDICINE [place] [facility] Jun 01, 2024 07:30 AM AMBULATORY - NONE [place] [facility] [place] [facility] Jun 28, 2024 08:00 [facility] Aug 23, 2024 08:00 AM AMBULATORY - MEDICINE [facility] Active, Pending, and Scheduled Orders This section includes a listing of several types of active, pending, and scheduled orders, including clinic medications orders, diagnostic test orders, procedure orders and consult orders; where the start date of the order is 45 days before the date of the Encounter or 45 days after the date of theEncounter. The data comes from all [place] treatment facilities. Test Date/Time Test Type Test Details Facility Name Apr 15, 2024 07:42 AM Consult Order COMMUNITY CARE-CARDIAC SURGERY Cons [employer] Investigator[facility] Choice [facility] Social History: Smoking Status (Most current) and Tobacco Use (All prior to encounter date) This section includes the most current, and the historical, smoking and tobacco- related health factors from the [facility] facility where the Encounter took place. Current Smoking Status This section includes the most current smoking, or tobacco-related health factor, from the VA facility where the Encounter took place. Date/Time Current Smoking Status Comment Facil ity Jul 21, 2023 01:30 PM [facility]ACCO [facility] Tobacco Use History This section includes a history of the smoking, or tobacco-related health factors, that were collected on or before the date of the Encounter. The data comes from the [place] facility where the Encounter took place. Date/Time Smoking Status/Tobacco Use Comment F acility Jul 21, 2023 01:30 PM VA-TOBACCO QUIT 15 YRS OR MORE [place] [facility] Mar 28, 2021 03:28 PM [facility] Mar 28, 2021 03:28 PM [facility]BACCO [facility]IT [facility] Dec 02, 2019 09:36 AM [facility]BACCO [facility] Apr 23, 2005 10:19 AM QUIT TOBACCO [facility] Advance Directives: All historical and current Section Date Range: From patient's date of to the date document was created. This section includes ALL of a patient's completed or amended [place] Advance and Rescinded Directives. The entries below indicate that a directive exists for the patient, but an actual copy is not included with this document. The data comes from all [place] facilities. Date Advance Directives Provider Source Dec 16, 2011 ADVANCE DIRECTIVE DISCUSSION MARGARITA TERRAZAS [place] Encounter Notes: All associated encounter notes This section contains the clinical notes associated to the Encounter. Date/Time Encounter Note(s) Provider Source Mar 30, 2024 08:25 AM OPTOMETRY NOTE: LOCAL TITLE: OPTOMETRY NOTE STANDARD TITLE: OPTOMETRY NOTE DATE OF NOTE: MAR 30, 2024@08:25 ENTRY DATE: MAR 30, 2024@08:25:50 AUTHOR: FLORIAN MCCARTY COSIGNER: URGENCY: STATUS: COMPLETED OPTOMETRY NOTE Has ADDENDA Adjusted one pair today. The quote provided below is for informational purposes only. Please verify prior to the creation of a purchase order. ANDREEA HERNANDEZBBA 7311 RX INFORMATION OD -2.00 -1.00 X72 Add:+2.50 Pzm:0.00 Dir: Prz2:0.00 Dir2: OS -2.00 -0.50 X35 Add:+2.50 Pzm:0.00 Dir: Prz2:0.00 Dir2: FITTING INFORMATION FPD:66 NPD:62 [place]:R: L: SEG HT:R:13 L:13 Tint:HA Shade:3 VA Billable Items FRAME: SARAVANAN ANTIQUE SILVER 56-16-145 Right Lens: POLY BIFOCAL FT28 1.586 POLY Left Lens: POLY BIFOCAL FT28 1.586 POLY KLEAR ANTI-REFLECTIVE COATING SOLID TINT CLIN items [employer] - AR Coating 0002 - Bifocal - Glass Plastic Poly The quote provided below is for informational purposes only. Please verify prior to the creation of a purchase order. ANDREEA HERNANDEZBBA 7311 RX INFORMATION OD -2.00 -1.00 X72 Add:+2.50 Pzm:0.00 Dir: Prz2:0.00 Dir2: OS -2.00 -0.50 X35 Add:+2.50 Pzm:0.00 Dir: Prz2:0.00 Dir2: FITTING INFORMATION FPD:66 NPD:62 [place]:R: L: SEG HT:R:13 L:13 Tint:None Shade:None VA Billable Items FRAME: SARAVANAN ANTIQUE SILVER 56-16-145 Right Lens: POLY BIFOCAL FT28 1.586 POLY Left Lens: POLY BIFOCAL FT28 1.586 POLY KLEAR ANTI-REFLECTIVE COATING CLIN items [employer] - AR Coating 0002 - Bifocal - Glass Plastic Poly /lisa/ FLORIAN MCCARTY BAR HELPER Signed: 03/30/2024 08:28 Receipt Acknowledged By: 03/30/2024 08:29 /lisa/ Jacquelyn Wilcox LPN Licensed Practical Nurse 03/30/2024 ADDENDUM STATUS: COMPLETED PDS metal mockup maker fit 2 Bifocal eyeglasses on 03/30/2024. OPT HT entered consult(s) as requested for provider signature. /lisa/ Jacquelyn Wilcox LPN Licensed Practical Nurse Signed: 03/30/2024 08:32 FLORIAN MCCARTY CNTRL TRN [facility]
--- OUTSIDE RECORDS SUMMARY | 2024-05-10 07:32 | XMS_ITS | Encounter Summary ---
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 Address [address] [place] [address] Care Team Providers Care Sand Miller Name Role Phone CHITO SEGURA Primary Care [...] PART A Feb 16, 2018 PART A [id number] YENNY OVIEDO PATIENT MEDICARE (WNR) MEDICARE (M) PART B Feb 16, 2018 PART B [id number] YENNY OVIEDO ES PATIENT MEDICARE (WNR) MEDICARE (M) PART A Oct 17, 2006 PART A [id number] [facility] YENNY OVIEDO PATIENT FOR LIFE TFL* Apr 06, 2018 [id number] YENNY OVIEDO PATIENT Selected Encounter This section includes the information on record at [place] for the Encounter. Date/Time Encounter Type Encounter Description Reason Provider Source Jun 09, 2023 09:20 AM Outpatient Encounter PRIMARY CARE/MEDICINE AISHA SANDERS E Encounter Template Text not used by [place] Plan of Treatment: Future Appointments (+ 6 months) and Future Tests (+/- 45 days) The Plan of Treatment section includes future care activities for the patient from all [place] [facility] [place] This section includes future appointments and future [...] REHAB MEDICIN E [facility] [facility] Jun 23, 2023 07:30 AM AMBULATORY - REHAB MEDICIN E [facility] [place] [facility] Jun 23, 2023 08:00 AM AMBULATORY - MEDICINE [place] [facility] [place] [facility] Jul 04, 2023 09:00 AM AMBULATORY - REHAB MEDICIN E [place] [facility] [place] [facility] Jul 08, 2023 10:00 AM AMBULATORY - REHAB MEDICIN E [facility] [place] [facility] Jul 17, 2023 08:30 AM AMBULATORY - REHAB MEDICIN E [place] [facility] [place] [facility] Jul 17, 2023 12:00 PM AMBULATORY - NONE [place] [facility] [place] [facility] Jul 21, 2023 01:30 PM AMBULATORY - MEDICINE [place] [facility] [place] [facility] Jul 24, 2023 08:30 AM AMBULATORY - REHAB MEDICIN E [facility] [place] [facility] Jul 31, 2023 08:30 AM AMBULATORY - REHAB MEDICIN E [place] [facility] [place] [facility] Aug 04, 2023 08:00 AM AM[facility]ULATORY - MEDICINE [facility] Aug 04, 2023 08:30 AM AMBULATORY - MEDICINE [facility] Aug 06, 2023 09:00 AM AMBULATORY - REHAB MEDICIN E [place] [facility] [place] [facility] Aug 20, 2023 08:30 AM AMBULATORY - REHAB MEDICIN E [facility] [place] [facility] Aug 26, 2023 09:00 AM AMBULATORY - REHAB MEDICIN E [facility] [place] [facility] Sep 01, 2023 09:00 AM AMBULATORY - REHAB MEDICIN E [place] [facility] [place] [facility] Sep 09, 2023 08:00 AM AMBULATORY - MEDICINE [place] [place] [facility] Sep 15, 2023 09:00 AM AMBULATORY - REHAB MEDICIN [place] [facility] [facility] September 22, 2023 09:00 AM AMBULATORY - [place] [facility] September 29, 2023 08:00 AM [facility] [...] 28, 2021 03:28 PM VA-TOBACCO FORMER USER [facility] Tobacco Use History This section includes a history of the smoking, or tobacco-related health factors, that were collected on or before the date of the Encounter. The data comes from the [place] facility where the Encounter took place. Date/Time Smoking Status/Tobacco Use Comment F acility Mar 28, 2021 03:28 PM VA-TOBACCO QUIT 15 YRS OR [facility] Dec 02, 2019 09:36 AM VA-TOBACCO NEVER USED [facility] Apr 23, 2005 10:19 AM QUIT TOBACCO USE [facility] Advance Directives: All historical and [...] Encounter Note(s) Provider Source Jun 09, 2023 09:20 AM PRIMARY CARE SECUR E MESSAGING: LOCAL TITLE: PRIMARY CARE SECURE MESSAGING STANDARD TITLE: PRIMARY CARE SECURE MESSAGING DATE OF NOTE: JUN 09, 2023@09:20 ENTRY DATE: JUN 09, 2023@09:20:36 AUTHOR: AISHA SANDERS EXP COSIGNER: URGENCY: STATUS: COMPLETED PRIMARY CARE SECURE MESSAGING Has ADDENDA ------Original Message ------- Sent: 06/06/2023 06:54 PM ET From: ANDREEA OVIEDO To: Sebas SEGURA_PRIMARY CARE_[facility] Subject: Medication:Renew Clonazepam Please renew my prescription for Clonazepam 0.5 mg at bedtime as needed. Old prescription number [id number]. Thank you, Andreea Oviedo [phone] /lisa/ AISHA SANDERS RN REGISTERED NURSE Signed: 06/09/2023 09:20 Receipt Acknowledged By: 06/17/2023 10:46 /lisa/ MIGUELINA ROBERTS NP NURSE PRACTITIONER for CHITO Ladd [place] 06/17/2023 ADDENDUM STATUS: COMPLETED Chart reviewed. Vet has been recieiving this for several years, uses very infrequently. Will rx 30 tabs. If begins to use more frequently, will need to discuss alternative as benzos not ideal for this age group. /lisa/ MIGUELINA ROBERTS NP NURSE PRACTITIONER Signed: 06/17/2023 10:42 AISHA SANDERS [place] [facility]
--- OUTSIDE RECORDS SUMMARY | 2024-05-10 07:32 | XMS_ITS | Encounter Summary ---
Author Name Department of [place] ([place]) Organization [facility] Address [address] [place] [id number] Care Team Providers Care Aws Developer Name Role Phone CHITO SEGURA Primary Care [...] PART A Feb 16, 2018 PART A [id number] YENNY OVIEDO ANDREW PATIENT MEDICARE (WNR) MEDICARE (M) PART B Feb 16, 2018 PART B [id number] YENNY OVIEDO ANDREW PATIENT MEDICARE (WNR) MEDICARE (M) PART A Oct 17, 2006 PART A [id number] YENNY OVIEDO ANDREW PATIENT FOR LIFE TFL* Apr 06, 2018 [id number] YENNY OVIEDO PATIENT Selected Encounter This section includes the information on record at [place] for the Encounter. Date/Time Encounter Type Encounter Description Reason Provider Source Jun 09, 2023 08:30 AM MTMS BY PHARM ADDL 15 MIN CLINICAL PHARMACY ICD-10-CM E11.8 Type 2 diabetes mellitus with unspecified complications EVELYNE SANCHEZ Ayah Encounter Template Text not used by [place] Assessments - Encounter Diagnoses This section includes the primary and secondary diagnoses documented for the Encounter. Date/Time Primary/Secondary Diagnosis Diagnosis Name Provider Source Jun 09, 2023 08:49 AM PRIMARY Type 2 diabetes mellitus with unspecified complications EVELYNE SANCHEZ [place] Plan of Treatment: Future Appointments (+ 6 months) and Future Tests (+/- 45 days) The Plan of Treatment section includes future care activities for the patient from all [place] [facility] This section includes future appointments [...] [facility]IC[facility] [place] [facility] Jun 23, 2023 07:30 AM AMBULATORY - [facility]IC[facility] [place] [facility] Jun 23, 2023 08:00 AM AMBULATORY - MEDICINE [facility] [place] [facility] Jul 04, 2023 09:00 AM AMBULATORY - [facility] MEDICIN [facility] [place] [facility] Jul 08, 2023 10:00 AM AMBULATORY - RE[facility]AB MEDICIN [facility] [place] [facility] Jul 17, 2023 08:30 AM AMBULATORY - RE[facility]AB MEDICIN [facility] [place] [facility] Jul 17, 2023 12:00 PM AMBULATORY - NONE [facility] [place] [facility] Jul 21, 2023 01:30 PM AMBULATORY - MEDICINE [facility] [place] [facility] Jul 24, 2023 08:30 AM AMBULATORY - RE[facility]AB MEDICIN [facility] [place] [facility] Jul 31, 2023 08:30 AM AMBULATORY - [facility]ICIN [facility] [place] [facility] Aug 04, 2023 08:00 AM [facility] Aug 04, 2023 08:30 AM [facility]ULATORY - MEDICINE [facility] Aug 06, 2023 09:00 AM AMBULATORY - [facility] MEDICIN [facility] [place] [facility] Aug 20, 2023 08:30 AM AMBULATORY - RE[facility]AB MEDICIN [facility] [place] [facility] Aug 26, 2023 09:00 AM AMBULATORY - REHAB MEDICIN [facility] [place] [facility] Sep 01, 2023 09:00 AM AMBULATORY - REHAB MEDICIN [facility] [place] [facility] Sep 09, 2023 08:00 AM AMBULATORY - MEDICINE [facility] [place] [facility] Sep 15, 2023 09:00 AM AMBULATORY - REHAB MEDICIN [facility] [place] [facility] September 22, 2023 09:00 AM AMBULATORY - [facility] MEDICIN [facility] [place] [facility] September 29, 2023 08:00 AM AMBULATORY - MEDICINE [facility] Social History: Smoking Status (Most current) [...] AM VA-TOBACCO QUIT 15 YRS OR MORE [place] Tobacco Use History This section includes a history of the smoking, or tobacco-related health factors, that were collected on or before the date of the Encounter. The data comes from the [place] facility where the Encounter took place. Date/Time Smoking Status/Tobacco Use Comment F acility Jul 22, 2022 10:00 AM VA-TOBACCO QUIT 15 YRS OR MORE [place] Dec 02, 2018 09:23 AM VA-TOBACCO FORMER USER [place] Dec 02, 2018 09:23 AM VA-TOBACCO QUIT 15 YRS OR MORE [place] Apr 20, 2018 10:23 AM VA-TOBACCO FORMER USER [place] Apr 20, 2018 10:23 AM VA-TOBACCO QUIT 15 YRS OR MORE [place] Dec 16, 2016 08:40 AM QUIT TOBACCO USE > 7 YEARS AGO [place] Jul 17, 2015 08:14 AM QUIT TOBACCO USE > 7 YEARS AGO quit many yrs ago [place] Aug 04, 2009 08:22 AM QUIT TOBACCO USE > 7 YEARS AGO quit over ten years ago [place] Dec 03, 2007 02:22 PM QUIT TOBACCO USE 1 -7 YEARS AGO [place] May 21, 2007 08:03 AM QUIT TOBACCO USE 1 -7 YEARS AGO [place] Jul 25, 2004 09:38 AM CURRENT SMOKER Smokes about 10 cigarettes/day, and trying to quit on his own [place] Apr 27, 2004 01:32 PM LIFETIME NON-TOBACCO USER [place] Advance Directives: All historical and current Section Date Range: From patient's date of to the date document was created. This section includes ALL of a patient's completed or amended [place] Advance and Rescinded Directives. The entries below indicate that a directive exists for the patient, but an actual copy is not included with this document. The data comes from all [place] facilities. Date Advance Directives Provider Source Dec 16, 2011 ADVANCE DIRECTIVE DISCUSSION MARGARITA TERRAZAS [place] Encounter Notes: All associated encounter notes This section contains the clinical notes associated to the Encounter. Date/Time Encounter Note(s) Provider Source Jun 09, 2023 08:20 AM PHARMACY OUTPATIEN T NOTE: LOCAL TITLE: PHARMACY CLINIC NOTE STANDARD TITLE: PHARMACY OUTPATIENT NOTE DATE OF NOTE: JUN 09, 2023@08:20 ENTRY DATE: JUN 09, 2023@08:20:13 AUTHOR: EVELYNE SANCHEZIGNER: URGENCY: STATUS: COMPLETED Known Allergies: NONSTEROIDAL ANTI-INFLAMMATORY, PENICILLIN, ROCEPHIN, POVIDONE IODINE, PHISOHEX THIMEROSAL, PAXIL, PINEAPPLES, MONOSODIUM GLUTAMATE, MELONS, LISINOPRIL TAMSULOSIN ANDREEA OVIEDO presented for follow-up for diabetes management treatment. Subjective: Globe presents to clinic today with . Recently, planned to titrate semaglutide to 2mg once weekly d/t 1mg shortage; it is now available and pt has not yet picked up 2mg RX. He notes he is overall tolerating therapy but does not significant decrease in appetite and some nausea but tolerable and not impacting QOL. He has had 10lb weight loss. No longer snacking. He is very pleased with BG control. As noted previously, pt is participating in [...] 0.71 02/04/23 08:03 0.72 09/13/22 08:49 0.76 CrCl: CRCL IBW: CrCl(est): 113.8 mL/min (Creat:0.72 02/04/23) CRCL ACT: 100 mL/min CRCL ADJ: 113.8 mL/min (02/04/23) Patient self-monitoring of blood glucose: [facility]: At home : Patient self-monitors blood glucose 1x day and reports the following (mg/dl): Date Range: 05/11/2023 - 06/09/2023 bG values are displayed in mg/dL # of tests 12 Average 127 SD 7.9 Highest 140 Lowest 113 Avg tests/day 0.4 # HI 0 # LO 0 <70 0.0% 70-180 100.0% >180 0.0% Hypos(<69) 0 Date Range: 05/11/2023 - 06/09/2023 bG values are displayed in mg/dL 00:00- :30- 08:00- 11:00- 12:30- 17:00- 18:30- :- :30 08:00 11:00 12:30 17:00 18:30 21:30 00:00 05/11/2023 127 05/14/2023 126 05/17/2023 140 05/18/2023 135 05/19/2023 126 05/21/2023 113 05/23/2023 133 05/26/2023 118 05/27/2023 128 Melonie 05/29/2023 120 Melonie 06/05/2023 120 06/09/2023 133 Patient eats on avg. 3x day: Diet Patterns: *Cut back on CHO a while ago ; quantity decreased, a lot of vegetables B: skips L: light; cheese D: protein + vegetable [...] control Lose weight Asessment/Plan: A1c is currently above goal of <7% as per VA/DoD Diabetes Treatment Guidelines with a goal fasting BG of <130 and a goal post-prandial BG of <180. May consider A1c <7-8%. A1c improved and BG mostly at goal. Pt notes he is overall tolerating semaglutide despite some nausea. Given this though, will not increase to 2mg; will continue with 1mg dose. Encouraged to continue with LSMs. Contact clinic if any worsening s/sx ADRs or questions/concerns. Diabetes (Goal A1c<7%, FBG 90-110mg/dL, 2hPP<180mg/dL): - D/C order for semaglutide 2mg once weekly; CONTINUE semaglutide 1mg once weekly - CONTINUE metformin SA 750mg BID - SMBG 2-3x/week - Monitor for s/sx hypoglycemia and contact clinic if BG consistently < 70mg/dL - Healthy lifestyle modifications encouraged - Repeat A1c: July 2023 Clinic's Next Scheduled Follow-up: 8 weeks HTN: Last BP at goal; ADR to JARROD-I. ASCVD: atorvastatin 20mg/day Microalb: 28.3 mg/G (04/2023) History of Preventive Care: Most recent visit to social work professor: 05/2023 Most recent visit to optometry: 02/2023; Diabetes without retinopathy or macular edema either eye. Time Spent: 30 minutes PBM PharmD Pharmacotherapy Rem V12: PHARMACIST INTERVENTIONS: TYPE 2 DIABETES MELLITUS Medication Intervention(s) Medication reconciliation (changes to active VA and non-VA medication lists to reconcile differences) Changes to medication lists made Update dose, frequency, duration and/or dosage form of medication /andrew/ Evelyne Sanchez PharmD Clinical Pharmacy Practitioner Signed: 06/09/2023 08:49 EVELYNE SANCHEZ
--- OUTSIDE RECORDS SUMMARY | 2024-05-10 07:32 | XMS_ITS | Encounter Summary ---
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 Address [address] [place] [address] Care Team Providers Care Hand Packer/Packager Name Role Phone CHITO SEGURA Primary Care [...] PART A Feb 16, 2018 PART A [id number] YENNY OVIEDO ES PATIENT MEDICARE (WNR) MEDICARE (M) PART B Feb 16, 2018 PART B [id number] YENNY OVIEDO ES PATIENT MEDICARE (WNR) MEDICARE (M) PART A Oct 17, 2006 PART A [id number] YENNY OVIEDO PATIENT FOR LIFE TFL* Apr 06, 2018 [id number] YENNY OVIEDO PATIENT Selected Encounter This section includes the information on record at [place] for the Encounter. Date/Time Encounter Type Encounter Description Reason Provider Source Jun 16, 2023 08:00 AM THERAPEUTIC EXERCISES OCCUPATIONAL THERAPY ICD-10-CM M25.312 Other instability, left shoulder MACHON,NAN E IHE Encounter Template Text not used by [place] Assessments - Encounter Diagnoses This section includes the primary and secondary diagnoses documented for the Encounter. Date/Time Primary/Secondary Diagnosis Diagnosis Name Provider Source Jun 16, 2023 09:51 AM PRIMARY Other instability, left shoulder MACHON,NAN E [place] [facility] [place] [facility] Plan of Treatment: Future Appointments (+ 6 months) and Future Tests (+/- 45 days) The Plan of Treatment section includes future care activities for the patient from all [place] [facility]. This section includes future appointments and future orders which are active, pending or scheduled. Future Appointments This section includes appointments that were scheduled to occur 6 months from the date of the Encounter, up to a maximum of 20 appointments. The data comes from all [place] treatment facilities. Appointment Date/Time Appointment Type Appointme nt Facility Name Jun 23, 2023 07:30 AM AMBULATORY - [facility] [place] [facility] Jun 23, 2023 08:00 AM AMBULATORY - MEDICINE [facility] [place] [facility] Jul 04, 2023 09:00 AM AMBULATORY - REHAB MEDICIN E [facility] [place] [facility] Jul 08, 2023 10:00 AM AMBULATORY - REHAB MEDICIN E [facility] [place] [facility] Jul 17, 2023 08:30 AM AMBULATORY - REHAB MEDICIN E [facility] [place] [facility] Jul 17, 2023 12:00 PM AMBULATORY - NONE [facility] [place] [facility] Jul 21, 2023 01:30 PM AMBULATORY - MEDICINE [facility] [place] [facility] Jul 24, 2023 08:30 AM AMBULATORY - REHAB MEDICIN E [facility] [place] [facility] Jul 31, 2023 08:30 AM AMBULATORY - REHAB MEDICIN [facility] [place] [facility] Aug 04, 2023 08:00 AM [facility]INE [facility] Aug 04, 2023 08:30 AM [facility]ATORY - [facility]INE [facility] Aug 06, 2023 09:00 AM AMBULATORY - REHAB MEDICIN [facility] [place] [facility] Aug 20, 2023 08:30 AM AMBULATORY - REHAB MEDICIN [facility] [place] [facility] Aug 26, 2023 09:00 AM AMBULATORY - REHAB MEDICIN E [facility] [place] [facility] Sep 01, 2023 09:00 AM AMBULATORY - REHAB MEDICIN [facility] [place] [facility] Sep 09, 2023 08:00 AM [facility] Sep 15, 2023 09:00 AM AMBULATORY - REHAB MEDICIN E [facility] [place] [facility] September 22, 2023 09:00 AM AMBULATORY - REHAB MEDICIN E [place] [facility] [place] [facility] September 29, 2023 08:00 AM [facility] [place] [facility] [place] September 29, 2023 08:30 [facility] Social History: Smoking Status (Most current) and [...] 28, 2021 03:28 PM [facility] Tobacco Use History This section includes a history of the smoking, or tobacco-related health factors, that were collected on or before the date of the Encounter. The data comes from the [place] facility where the Encounter took place. Date/Time Smoking Status/Tobacco Use Comment F acility Mar 28, 2021 03:28 PM VA-TOBACCO QUIT 15 YRS OR MORE [place] [facility] Dec 02, 2019 09:36 AM [facility]ACCO [facility] Apr 23, 2005 10:19 AM QUIT TOBACCO USE [facility] Advance Directives: All historical and current [...] 16, 2011 ADVANCE DIRECTIVE DISCUSSION MARGARITA TERRAZAS [place] Encounter Notes: All associated encounter notes This section contains the clinical notes associated to the Encounter. 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 Special instructions: passive/active ROM and gentle therabands. DOS: 02/08/2024 18 weeks 3 days post-op SUBJECTIVE: Pt reports that his shoulder is sore. He feels it became inflamed and he's not sure from what. Pain Level: 3-4/10 OBJECTIVE: THERAPEUTIC EXERCISE: *UBE 2' forward, 2' backward 1.0 *hiram into flexion, w/ 10 second hold on L, x10 *wall slides into flexion, 1x10 *reactive iso's, IR, 2x10 *reactive iso's, ER, 2x10 *supine chest press, 1x10 *supine shoulder flexion, 1x10 *shoulder flexion AROM, b/l, 1x5 Access Code: [email or web address] URL: [email or web address] App / Date: 06/16/2023 Prepared by: [facility] Exercises - Shoulder Flexion Wall Slide [...] - 10 reps - Shoulder External Rotation Reactive Isometrics - 1 x daily - 7 x weekly - 3 sets - 10 reps - Shoulder Internal Rotation Reactive Isometrics - 1 x daily - 7 x weekly - 3 sets - 10 reps MINUTES: 18 MANUAL THERAPY: *mobilization to anterior shoulder musculature, supine MINUTES: 8 THERAPEUTIC DYNAMIC ACTIVITIES: MINUTES: NEUROMUSCULAR EDUCATION: MINUTES: OTHER: MINUTES: MODALITIES: *MHP to L shoulder prior to tx MINUTES: 3 [] Contraindication screen completed prior to modality [] Skin intact pre/post SELF CARE/EDUCATION: MINUTES: Patient education was provided for all aspects of care during this clinical encounter. ASSESSMENT: pt tolerated tx well this date. replaced basic iso's w/ reactive which he tolerated well. despite some reported increased soreness, he did very well. his quality of movement is improved w/ supine TE. did discuss being aware of not shrugging his shoulder through active motion. during mob, tightness palpable. pt reported improved discomfort following tx. PLAN: continue w/ OT POC; modify tx as needed. pt is in agreement w/ this POC. /lisa/ Nan Pike, MS OTR/[place]wart, CHT Occupational Therapist Signed: 06/16/2023 09:51 NAN PIKE [facility]
--- OUTSIDE RECORDS SUMMARY | 2024-05-10 07:32 | XMS_ITS | Encounter Summary ---
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 Organization [place] Address [address] [place] [address] Care Team Providers Care City Editor Name Role Phone CHITO SEGURA Primary Care [...] PART A Feb 16, 2018 PART A [id number] YENNY OVIEDO PATIENT MEDICARE (WNR) MEDICARE (M) PART B Feb 16, 2018 PART B [id number] YENNY OVIEDO PATIENT MEDICARE (WNR) MEDICARE (M) PART A Oct 17, 2006 PART A [id number] [facility] YENNY OVIEDO PATIENT FOR LIFE TFL* Apr 06, 2018 [id number] YENNY OVIEDO PATIENT Selected Encounter This section includes the information on record at [place] for the Encounter. Date/Time Encounter Type Encounter Description Reason Pro vider Source Mar 30, 2024 08:59 AM Outpatient Encounter OPTOMETRY IHE Encounter Template Text not used by [place] Plan of Treatment: Future Appointments (+ 6 months) and Future Tests (+/- 45 days) The Plan of Treatment section includes future care activities for the patient from all [place] [facility]. This section includes future appointments and future orders which are active, pending or scheduled. Future Appointments This section includes appointments that were scheduled to occur 6 months from the date of the Encounter, up to a maximum of 20 appointments. The data comes from all [facility]. Appointment Date/Time Appointment Type Appointme nt Facility Name Apr 06, 2024 09:00 AM [facility]ORY [facility]INE [facility] Apr 12, 2024 08:00 AM [facility]ORY [facility]INE [facility] Apr 12, 2024 11:00 AM AM[place]ORY [place]INE [place] [facility] [place] [facility] Apr 12, 2024 01:30 PM AM[facility]ORY - [place]ICINE [place] [facility] [place] [facility] Apr 30, 2024 01:40 PM AMBULATORY - NONE [place] [facility] [place] [facility] May 28, 2024 08:30 AM AMBULATORY - MEDICINE [place] [facility] [place] [facility] May 31, 2024 11:00 AM AMBULATORY - MEDICINE [place] [facility] [place] [facility] Jun 01, 2024 07:30 AM AMBULATORY - NONE [place] [facility] [place] [facility] Jun 28, 2024 08:00 AM [facility]ORY - MEDICINE [facility] Aug 23, 2024 08:00 AM [facility] Active, Pending, and Scheduled Orders This section includes a listing of several types of active, pending, and scheduled orders, including clinic medications orders, diagnostic test orders, procedure orders and consult orders; where the start date of the order is 45 days before the date of the Encounter or 45 days after the date of theEncounter. The data comes from all [facility]. Test Date/Time Test Type Test Details Facility Name Apr 15, 2024 07:42 AM Consult Order COMMUNITY CARE-CARDIAC SURGERY Cons District Operations Manager's Choice [facility] [facility] Social History: Smoking Status (Most current) and Tobacco Use (All prior to encounter date) This section includes the most current, and the historical, smoking and tobacco- related health factors from the [place] facility where the Encounter took place. Current Smoking Status This section includes the most current smoking, or tobacco-related health factor, from the [place] facility where the Encounter took place. Date/Time Current Smoking Status Comment Ginger ellis Jul 21, 2023 01:30 PM VA-TOBACCO FORMER USER [facility] Tobacco Use History This section includes a history of the smoking, or tobacco-related health factors, that were collected on or before the date of the Encounter. The data comes from the [place] facility where the Encounter took place. Date/Time Smoking Status/Tobacco Use Comment Wilberto holbrook Jul 21, 2023 01:30 PM VA-TOBACCO QUIT 15 YRS OR MORE [facility] Mar 28, 2021 03:28 PM VA-[facility]BACCO [facility] Mar 28, 2021 03:28 PM [facility] Dec 02, 2019 09:36 AM VA-TOBACCO NEVER USED [facility] Apr 23, 2005 10:19 AM QUIT TOBACCO USE IN PAST YEAR [facility] Advance Directives: All historical and current Section Date Range: From patient's date of to the date document was created. This section includes ALL of a patient's completed or amended [place] Advance and Rescinded Directives. The entries below indicate that a directive exists for the patient, but an actual copy is not included with this document. The data comes from all [place] facilities. Date Advance Directives Provider Source Dec 16, 2011 ADVANCE DIRECTIVE DISCUSSION MARGARITA TERRAZAS [place] Encounter Notes: All associated encounter notes This section contains the clinical notes associated to the Encounter. Date/Time Encounter Note(s) Provider Source Mar 30, 2024 08:59 AM TELEPHONE ENCOUNTE R NOTE: LOCAL TITLE: TELEPHONE NOTE/SPECIALTY CLINIC STANDARD TITLE: TELEPHONE ENCOUNTER NOTE DATE OF NOTE: MAR 30, 2024@08:59 ENTRY DATE: MAR 30, 2024@08:59:52 AUTHOR: NANCY MELENDEZ EXP COSIGNER: URGENCY: STATUS: COMPLETED called asking if one of the pairs of glasses he picked out were for sunglasses. Veterans phone number on file has been confirmed. /lisa/ NANCY MELENDEZ COLLISION MECHANIC Signed: 03/30/2024 09:00 Receipt Acknowledged By: 03/30/2024 09:16 /lisa/ NANCY JORGENSENL [facility]
--- OUTSIDE RECORDS SUMMARY | 2024-05-10 07:32 | XMS_ITS ---
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 [place] [facility] [place] [facility] [place] Address [address] [place] [id number] Care Team Providers Care Deportation Examiner Name Role Phone CHITO SEGURA Primary Care [...] PART A Feb 16, 2018 PART A [id number] YENNY OVIEDO ES PATIENT MEDICARE (WNR) MEDICARE (M) PART B Feb 16, 2018 PART B [id number] YENNY OVIEDO ES PATIENT MEDICARE (WNR) MEDICARE (M) PART A Oct 17, 2006 PART A [id number] [facility] YENNY OVIEDO PATIENT FOR LIFE TFL* Apr 06, 2018 [id number] YENNY OVIEDO PATIENT Selected Encounter This section includes the information on record at [place] for the Encounter. Date/Time Encounter Type Encounter Description Reason Provider Source Jun 09, 2023 02:30 PM THERAPEUTIC EXERCISES OCCUPATIONAL THERAPY ICD-10-CM M25.312 Other instability, left shoulder MACHON,NAN E IHE Encounter Template Text not used by [place] Assessments - Encounter Diagnoses This section includes the primary and secondary diagnoses documented for the Encounter. Date/Time Primary/Secondary Diagnosis Diagnosis Name Provider Source Jun 09, 2023 03:21 PM PRIMARY Other instability, left shoulder MACHON,NAN E [place] [facility] [place] [facility] Plan of Treatment: Future Appointments (+ 6 months) and Future Tests (+/- 45 days) The Plan of Treatment section includes future care activities for the patient from all [place] treatmentfacilities. This section includes future appointments and future orders which are active, pending or scheduled. Future Appointments This section includes appointments that were scheduled to occur 6 months from the date of the Encounter, up to a maximum of 20 appointments. The data comes from all [place] treatment facilities. Appointment Date/Time Appointment Type Appointme nt Facility Name Jun 16, 2023 08:00 AM AMBULATORY - REHAB MEDICIN E [facility] [place] [facility] Jun 23, 2023 07:30 AM AMBULATORY - REHAB MEDICIN E [facility] [place] [facility] Jun 23, 2023 08:00 AM AMBULATORY - MEDICINE [facility] [place] [facility] Jul 04, 2023 09:00 AM AMBULATORY - REHAB MEDICIN E [facility] [place] [facility] Jul 08, 2023 10:00 AM AMBULATORY - REHAB MEDICIN E [facility] [place] [facility] Jul 17, 2023 08:30 AM AMBULATORY - REHAB MEDICIN E [facility] [place] [facility] Jul 17, 2023 12:00 PM AMBULATORY - NONE [facility] [place] [facility] Jul 21, 2023 01:30 PM AMBULATORY - MEDICINE [facility] [place] [facility] Jul 24, 2023 08:30 AM AMBULATORY - REHAB MEDICIN E [facility] [place] [facility] Jul 31, 2023 08:30 AM AMBULATORY - REHAB MEDICIN E [facility] [place] [facility] Aug 04, 2023 08:00 AM [facility] Aug 04, 2023 08:30 AM [facility] Aug 06, 2023 09:00 AM AMBULATORY - REHAB MEDICIN E [facility] [place] [facility] Aug 20, 2023 08:30 AM AMBULATORY - REHAB MEDICIN E [facility] [place] [facility] Aug 26, 2023 09:00 AM AMBULATORY - REHAB MEDICIN E [facility] [place] [facility] Sep 01, 2023 09:00 AM AMBULATORY - REHAB MEDICIN E [facility] [place] [facility] Sep 09, 2023 08:00 AM AMBULATORY - MEDICINE [facility] [place] [facility] Sep 15, 2023 09:00 AM AMBULATORY - REHAB MEDICIN E [facility] [place] [facility] September 22, 2023 09:00 AM AMBULATORY - REHAB MEDICIN E [facility] [place] [facility] September 29, 2023 08:00 AM AMBULATORY - MEDICINE [facility] Social History: Smoking Status (Most current) and Tobacco Use (All prior to encounter date) This section includes the most current, and the historical, smoking and tobacco- related health factors from the [place] facility where the Encounter took place. Current Smoking Status This section includes the most current smoking, or tobacco-related health factor, from the [place] facility where the Encounter took place. Date/Time Current Smoking Status Comment Facil ity Mar 28, 2021 03:28 PM [facility] [place] [facility] Tobacco Use History This section includes a history of the smoking, or tobacco-related health factors, that were collected on or before the date of the Encounter. The data comes from the [place] facility where the Encounter took place. Date/Time Smoking Status/Tobacco Use Comment F acility Mar 28, 2021 03:28 PM VA-TOBACCO QUIT 15 YRS OR MORE [place] [facility] [place] [facility] Dec 02, 2019 09:36 AM VA-TOBACCO NEVER USED [facility] [place] [facility] Apr 23, 2005 10:19 AM QUIT TOBACCO USE IN PAST YEAR [place] [facility] [place] [facility] Advance Directives: All historical and current Section Date Range: From patient's date of to the date document was created. This section includes ALL of a patient's completed or amended [place] Advance and Rescinded Directives. The entries below indicate that a directive exists for the patient, but an actual copy is not included with this document. The data comes from all [place] facilities. Date Advance Directives Provider Source Dec 16, 2011 ADVANCE DIRECTIVE DISCUSSION MARGARITA TERRAZAS [place] Encounter Notes: All associated encounter notes This section contains the clinical notes associated to the Encounter. 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 Special instructions: passive/active ROM and gentle therabands. 17 weeks 3 days post-op SUBJECTIVE: Pt reports that his shoulder is sore. He was doing the exercises and it's sore along the top of the shoulder. Pain Level: 4/10 OBJECTIVE: THERAPEUTIC EXERCISE: *UBE 2' forward, 2' backward 1.0 *hiram into flexion, w/ 10 second hold on L, x10 *wall ladder into abduction, 35x5 *wall slides into flexion, 1x10 *wall walk into scaption, 35x5 *IR iso's, 5 second hold x5 *ER iso's, 5 second hold x5 ADDED: *shoulder flexion AROM, b/l, 1x5 Access Code: [email or web address] URL: [email or web address] Date: 06/09/2023 Prepared by: [facility] Exercises - Standing Shoulder Abduction Finger [...] 3 reps - 5 hold - Standing Shoulder Flexion to 90 Degrees [...] tx well this date. he does report some soreness and some mild clicking in the shoulder, however this did not occur today. also added AROM shoulder flexion to 90*. he also demonstrated much improved shoulder flexion as compared to his IE. pt is observed to don/doff coat w/ improved motion and w/o assist. ttp noted throughout anterior shoulder musculature but improved following tx. PLAN: continue w/ OT POC; modify tx as needed. pt is in agreement w/ this POC. /lisa/ Nan Pike, MS OTR/[place], CHT Occupational Therapist Signed: 06/09/2023 15:21 [facility]
--- OUTSIDE RECORDS SUMMARY | 2024-05-10 07:32 | XMS_ITS ---
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 [place] Organization [facility] [place] Address [address] [place] [address] Care Team Providers Care Hand Shoe Cutter Name Role Phone CHITO SEGURA Primary Care [...] PART A Feb 16, 2018 PART A [id number] YENNY OVIEDO PATIENT MEDICARE (WNR) MEDICARE (M) PART B Feb 16, 2018 PART B [id number] [phone] [id number] YENNY OVIEDO ES PATIENT MEDICARE (WNR) MEDICARE (M) PART A Oct 17, 2006 PART A [id number] [facility] [place] YENNY OVIEDO PATIENT FOR LIFE TFL* Apr 06, 2018 [id number] [phone] YENNY OVIEDO PATIENT Selected Encounter This section includes the information on record at [place] for the Encounter. Date/Time Encounter Type Encounter Description Reason Provider Source Jun 23, 2023 09:20 AM Outpatient Encounter PRIMARY CARE/MEDICINE AISHA SANDERS E Encounter Template Text not used by [place] Plan of Treatment: Future Appointments (+ 6 months) and Future Tests (+/- 45 days) The Plan of Treatment section includes future care activities for the patient from all [place] [facility]. This section includes future appointments and future orders which are active, pending or scheduled. Future Appointments This section includes appointments that were scheduled to occur 6 months from the date of the Encounter, up to a maximum of 20 appointments. The data comes from all [place] treatment facilities. Appointment Date/Time Appointment Type Appointme nt Facility Name Jul 04, 2023 09:00 AM AMBULATORY - REHAB MEDICIN E [facility] [place] [facility] Jul 08, 2023 10:00 AM AMBULATORY - REHAB MEDICIN E [facility] [place] [facility] Jul 17, 2023 08:30 AM AMBULATORY - REHAB MEDICIN E [facility] [place] [facility] Jul 17, 2023 12:00 PM AMBULATORY - NONE [facility] [place] [facility] Jul 21, 2023 01:30 PM AMBULATORY - MEDICINE [facility] [place] [facility] Jul 24, 2023 08:30 AM AMBULATORY - REHAB MEDICIN E [facility] [place] [facility] Jul 31, 2023 08:30 AM AMBULATORY - REHAB MEDICIN E [facility] [place] [facility] Aug 04, 2023 08:00 AM [facility]ATORY - [facility]ICINE [facility] Aug 04, 2023 08:30 AM [facility]ATORY - MEDICINE [facility] Aug 06, 2023 09:00 AM AMBULATORY - REHAB MEDICIN E [facility] [place] [facility] Aug 20, 2023 08:30 AM AMBULATORY - REHAB MEDICIN E [facility] [place] [facility] Aug 26, 2023 09:00 AM AMBULATORY - REHAB MEDICIN E [facility] [place] [facility] Sep 01, 2023 09:00 AM AMBULATORY - REHAB MEDICIN E [facility] [place] [facility] Sep 09, 2023 08:00 AM AMBULATORY - MEDICINE [facility] [place] [facility] Sep 15, 2023 09:00 AM [facility] [place] [facility] September 22, 2023 09:00 AM [facility] [place] [facility] September 29, 2023 08:00 AM AM[place]ORY [place]IC[place] [place] September 29, 2023 08:30 AM [place]ORY - [place]ICINE [place] October 01, 2023 09:00 AM AMBULAT[facility] - [facility] October 07, 2023 02:30 PM AMBULAT[facility] - [facility] Lab Results: +/- 30 days of the encounter This section includes the Chemistry and Hematology Lab Results on record with [place] for the patient. Radiology Reports and Pathology Reports are provided separately, in subsequent sections. Lab Results This section contains the Chemistry/Hematology Results that were resulted 30 days before or 30 daysafter the date of the Encounter. Date/Time Source Result Type Result - Unit Interpretation Reference Range Comment Jul 17, 2023 07:35 AM [facility] HEMOGLOBIN A1C PANEL Specimen [...] Apr 28, 2023 03:05 PM Reporting Lab: [address] [address] Performing Lab: [address] [address] HEMOGLOBIN A1C 6.5 H 4.0-5.6 Jul 17, 2023 07:35 AM [facility] LIVER FUNCTION Specimen Type: SERUM No comment entered. Ordering Provider: AYUSH SEGURA Report Released Date/Time: Apr 28, 2023 03:05 PM Reporting Lab: [address] [address] Performing Lab: [address] [address] PROTEIN,TOTAL 6.2 g/dL 6.0-8.3 ALBUMIN 3.7 g/dL 3.5-5.0 ALKALINE PHOSPHATASE 35 U/L L 40-150 AST 12 U/L 5-34 ALT 13 U/L BILIRUBIN, TOTAL 0.8 mg/dL 0.2-1.2 Jul 17, 2023 07:35 AM [facility] BASIC METABOLIC PANEL (fasting) Specimen Type: SERUM No comment entered. Ordering Provider: AYUSH SEGURA F Report Released Date/Time: Apr 28, 2023 03:05 PM Reporting Lab: [address] [address] Performing Lab: [address] [address] UREA NITROGEN 14 mg/dL 7-25 GLUCOSE 128 mg/dL H 65-100 SODIUM 142 mmol/L 135-145 POTASSIUM 3.9 mmol/L 3.5-5.0 CHLORIDE 107 mmol/L 100-110 CO2 24 meq/L 20-30 CREATININE, Serum 0.69 mg/dL 0.50-1.40 eGFR(CKD-EPI 2020) >90 mL/min >60 Jul 17, 2023 07:35 AM [facility] VITAMIN B12 Specimen Type: SERUM No comment entered. Ordering Provider: AYUSH SEGURA F Report Released Date/Time: Apr 28, 2023 03:05 PM Reporting Lab: [address] [address] Performing Lab: [address] [address] VITAMIN B12 643 pg/mL 200-900 Jul 17, 2023 07:35 AM [facility] MICROALBUMIN CREATININE RATIO PANEL Specimen Type: URINE No comment entered. Ordering Provider: AYUSH SEGURA F Report Released Date/Time: Apr 28, 2023 03:05 PM Reporting Lab: [address] [place] [address] Performing Lab: [facility] [address] [address] MICROALBUMIN/C REATININE RATIO 37.0 mg/g H 0-29.9 MICROALBUMIN,Q UANTITATIVE 3.4 mg/dL RR UNAVAIL CREATININE URINE 91.89 mg/dL Jul 17, 2023 07:35 AM [facility] LIPID PANEL FASTING Specimen Type: SERUM No comment entered. Ordering Provider: AYUSH SEGURA Report Released Date/Time: Apr 28, 2023 03:05 PM Reporting Lab: [facility] [address] [address] Performing Lab: [facility] [address] [address] CHOLESTEROL 118 mg/dL TRIGLYCERIDE 107 mg/dL 0-150 LDL calculated 58 mg/dL 0-129 CHOL/HDL 3.0 HDL CHOLESTEROL 39 mg/dL L 40-60 Social History: Smoking Status (Most current) and Tobacco Use (All prior to encounter date) This section includes the most current, and the historical, smoking and tobacco- related health factors from the [place] facility where the Encounter took place. Current Smoking Status This section includes the most current smoking, or tobacco-related health factor, from the [place] facility where the Encounter took place. Date/Time Current Smoking Status Comment Facil ity Mar 28, 2021 03:28 PM VA-TOBACCO QUIT 15 YRS OR MORE [facility] Tobacco Use History This section includes a history of the smoking, or tobacco-related health factors, that were collected on or before the date of the Encounter. The data comes from the [place] facility where the Encounter took place. Date/Time Smoking Status/Tobacco Use Comment F acility Mar 28, 2021 03:28 PM VA-TOBACCO QUIT [address] [facility] [place] Dec 02, 2019 09:36 AM VA-TOBACCO [facility] Apr 23, 2005 10:19 AM QUIT TOBACCO USE IN PAST YEAR [facility] Advance Directives: All historical and current Section Date Range: From patient's date of to the date document was created. This section includes ALL of a patient's completed or amended [place] Advance and Rescinded Directives. The entries below indicate that a directive exists for the patient, but an actual copy is not included with this document. The data comes from all [place] facilities. Date Advance Directives Provider Source Dec 16, 2011 ADVANCE DIRECTIVE DISCUSSION MARGARITA TERRAZAS [facility] Encounter Notes: All associated encounter notes This section contains the clinical notes associated to the Encounter. Date/Time Encounter Note(s) Provider Source Jun 23, 2023 09:20 AM PRIMARY CARE SECUR E MESSAGING: LOCAL TITLE: PRIMARY CARE SECURE MESSAGING STANDARD TITLE: PRIMARY CARE SECURE MESSAGING DATE OF NOTE: JUN 23, 2023@09:20 ENTRY DATE: JUN 23, 2023@09:20:07 AUTHOR: AISHA SANDERS EXP COSIGNER: URGENCY: STATUS: COMPLETED ------Original Message ------- Sent: 06/23/2023 09:11 AM ET From: ANDREEA OVIEDO To: Sebas SEGURA_PRIMARY CARE_[facility] Subject: General:CPAP Machine I saw Pam in Pulmonary/Respiratory Therapy this morning and she instructed me to request a referral from you for a new CPAP machine, as mine is from 2018 and should be replaced. Thank you. Edwar Oviedo /lisa/ AISHA SANDERS RN REGISTERED NURSE Signed: 06/23/2023 09:20 Receipt Acknowledged By: 06/23/2023 14:43 /lisa/ MIGUELINA ROBERTS NP NURSE PRACTITIONER for AISHA MORAN [place] [facility]
--- OUTSIDE RECORDS SUMMARY | 2024-05-10 07:32 | XMS_ITS ---
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 Address [address] [place] [id number] Care Team Providers Care Junior Accountant Bookkeeper Name Role Phone CHITO SEGURA Primary Care [...] PART A Feb 16, 2018 PART A [id number] [phone] YENNY OVIEDO PATIENT MEDICARE (WNR) MEDICARE (M) PART B Feb 16, 2018 PART B [id number] YENNY OVIEDO ES PATIENT MEDICARE (WNR) MEDICARE (M) PART A Oct 17, 2006 PART A [id number] [facility] YENNY OVIEDO PATIENT FOR LIFE TFL* Apr 06, 2018 [id number] YENNY OVIEDO PATIENT Selected Encounter This section includes the information on record at CT for the Encounter. Date/Time Encounter Type Encounter Description Reason Provider Source Jun 23, 2023 07:30 AM THERAPEUTIC EXERCISES OCCUPATIONAL THERAPY ICD-10-CM M25.312 Other instability, left shoulder MACHON,NAN E IHE Encounter Template Text not used by CT Assessments - Encounter Diagnoses This section includes the primary and secondary diagnoses documented for the Encounter. Date/Time Primary/Secondary Diagnosis Diagnosis Name Provider Source Jun 23, 2023 02:18 PM PRIMARY Other instability, left shoulder MACHON,NAN E [place] [facility] [place] [facility] Plan of Treatment: Future Appointments (+ 6 months) and Future Tests (+/- 45 days) The Plan of Treatment section includes future care activities for the patient [facility] This section includes future appointments and future orders which are active, pending or scheduled. Future Appointments This section includes appointments that were scheduled to occur 6 months from the date of the Encounter, up to a maximum of 20 appointments. The data comes from all [place] treatment facilities. Appointment Date/Time Appointment Type Appointme nt Facility Name Jul 04, 2023 09:00 AM AMBULATORY - [facility]ICIN [facility] [place] [facility] Jul 08, 2023 10:00 AM AMBULATORY - RE[facility]AB MEDICIN E [facility] [place] [facility] Jul 17, 2023 08:30 AM AMBULATORY - REHAB MEDICIN E [facility] [place] [facility] Jul 17, 2023 12:00 PM AMBULATORY - NONE [facility] [place] [facility] Jul 21, 2023 01:30 PM AMBULATORY [facility] MEDICINE [facility] [place] [facility] Jul 24, 2023 08:30 AM AMBULATORY - REHAB MEDICIN E [facility] [place] [facility] Jul 31, 2023 08:30 AM AMBULATORY - REHAB MEDICIN E [facility] [place] [facility] Aug 04, 2023 08:00 AM [facility] Aug 04, 2023 08:30 AM [facility] Aug 06, 2023 09:00 AM AMBULATORY - RE[facility] MEDICIN [facility] [place] [facility] Aug 20, 2023 08:30 AM AMBULATORY - REHAB MEDICIN E [facility] [place] [facility] Aug 26, 2023 09:00 AM AMBULATORY - REHAB MEDICIN E [facility] [place] [facility] Sep 01, 2023 09:00 AM AMBULATORY - [facility] [place] [facility] Sep 09, 2023 08:00 AM AMBULATORY - MEDICINE [facility] [place] [facility] Sep 15, 2023 09:00 AM AMBULATORY - REHAB MEDICIN E [facility] [place] [facility] September 22, 2023 09:00 AM AMBULATORY - REHAB MEDICIN E [facility] [place] [facility] September 29, 2023 08:00 AM [facility] [place] September 29, 2023 08:30 AM [facility] [place]IC[place] October 01, 2023 09:00 AM AMBULATORY - REHAB MEDICIN E [facility] [place] [facility] October 07, 2023 02:30 PM AMBULATORY - REHAB MEDICIN E [facility] [place] [facility] Lab Results: +/- 30 days of the encounter This section includes the Chemistry and Hematology Lab Results on record with CT for the patient. Radiology Reports and Pathology Reports are provided separately, in subsequent sections. Lab Results This section contains the Chemistry/Hematology Results that were resulted 30 days before or 30 daysafter the date of the Encounter. Date/Time Source Result Type Result - Unit Interpretation Reference Range Comment Jul 17, 2023 07:35 AM [facility] HEMOGLOBIN A1C PANEL Specimen Type: BLOOD Comment: [...] Apr 28, 2023 03:05 PM Reporting Lab: [place] [facility] [place] [facility] [address] [facility] [address] Performing Lab: [facility] [address] [address] HEMOGLOBIN A1C 6.5 H 4.0-5.6 Jul 17, 2023 07:35 AM [facility] BASIC METABOLIC PANEL (fasting) Specimen Type: SERUM No comment entered. Ordering Provider: AYUHS SEGURA F Report Released Date/Time: Apr 28, 2023 03:05 PM Reporting Lab: [facility] [address] [facility] [address] Performing Lab: [facility] [address] [facility] [address] UREA NITROGEN 14 mg/dL 7-25 GLUCOSE 128 mg/dL H 65-100 SODIUM 142 mmol/L 135-145 POTASSIUM 3.9 mmol/L 3.5-5.0 CHLORIDE 107 mmol/L 100-110 CO2 24 meq/L 20-30 CREATININE, Serum 0.69 mg/dL 0.50-1.40 eGFR(CKD-EPI 2020) >90 mL/min >60 Jul 17, 2023 07:35 AM [facility] MICROALBUMIN CREATININE RATIO PANEL Specimen Type: URINE No comment entered. Ordering Provider: AYUSH SEGURA F Report Released Date/Time: Apr 28, 2023 03:05 PM Reporting Lab: [facility] [address] [facility] [address] Performing Lab: [facility] [address] [facility] [address] MICROALBUMIN/C REATININE RATIO 37.0 mg/g H 0-29.9 MICROALBUMIN,Q UANTITATIVE 3.4 mg/dL RR UNAVAIL CREATININE URINE 91.89 mg/dL Jul 17, 2023 07:35 AM [facility] VITAMIN B12 Specimen Type: SERUM No comment entered. Ordering Provider: AYUSH SEGURA F Report Released Date/Time: Apr 28, 2023 03:05 PM Reporting Lab: [facility] [address] [facility] [address] Performing Lab: [address] [address] VITAMIN B12 643 pg/mL 200-900 Jul 17, 2023 07:35 AM [facility] LIPID PANEL FASTING Specimen Type: SERUM No comment entered. Ordering Provider: AYUSH SEGURA F Report Released Date/Time: Apr 28, 2023 03:05 PM Reporting Lab: [facility] [address] [facility] [address] Performing Lab: [address] [address] CHOLESTEROL 118 mg/dL TRIGLYCERIDE 107 mg/dL 0-150 LDL calculated 58 mg/dL 0-129 CHOL/HDL 3.0 HDL CHOLESTEROL 39 mg/dL L 40-60 Jul 17, 2023 07:35 AM [facility] LIVER FUNCTION Specimen Type: SERUM No comment entered. Ordering Provider: AYUSH SEGURA F Report Released Date/Time: Apr 28, 2023 03:05 PM Reporting Lab: [facility] [address] [facility] [address] Performing Lab: [address] [address] PROTEIN,TOTAL 6.2 g/dL 6.0-8.3 ALBUMIN 3.7 g/dL 3.5-5.0 ALKALINE PHOSPHATASE 35 U/L L 40-150 AST 12 U/L 5-34 ALT 13 U/L BILIRUBIN, TOTAL 0.8 mg/dL 0.2-1.2 Social History: Smoking Status (Most current) and Tobacco Use (All prior to encounter date) This section includes the most current, and the historical, smoking and tobacco- related health factors from the CT facility where the Encounter took place. Current Smoking Status This section includes the most current smoking, or tobacco-related health factor, from the [place] facility where the Encounter took place. Date/Time Current Smoking Status Comment Facil ity Mar 28, 2021 03:28 PM VA-TOBACCO FORMER USER [facility] Tobacco Use History This section includes a history of the smoking, or tobacco-related health factors, that were collected on or before the date of the Encounter. The data comes from the [place] facility where the Encounter took place. Date/Time Smoking Status/Tobacco Use Comment F acility Mar 28, 2021 03:28 PM VA-TOBACCO QUIT 15 YRS OR MORE [facility] Dec 02, 2019 09:36 AM VA-TOBACCO NEVER USED [facility] Apr 23, 2005 10:19 AM QUIT TOBACCO USE IN PAST YEAR [facility] Advance Directives: All historical and current Section Date Range: From patient's date of to the date document was created. This section includes ALL of a patient's completed or amended CT Advance and Rescinded Directives. The entries below indicate that a directive exists for the patient, but an actual copy is not included with this document. The data comes from all CT facilities. Date Advance Directives Provider Source Dec 16, 2011 ADVANCE DIRECTIVE DISCUSSION MARGARITA TERRAZAS [place] Encounter Notes: All associated encounter notes This section contains the clinical notes associated to the Encounter. 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 OT Treatment Precautions: Patient identified by full name and date of Received fax from [facility]opedic Surgeon, Dr Rausch, for PT evaluation and treatment for left shoulder instability. Special instructions: passive/active ROM and gentle therabands. DOS: 02/08/2024 19 weeks 3 days post-op SUBJECTIVE: Pt reports that his shoulder was sore a lot over the weekend. It's still sore today. A lot of clicking this morning. Pain Level: 3/10 OBJECTIVE: THERAPEUTIC EXERCISE: *UBE 2' forward, 2' backward 1.0 *hiram into flexion, w/ 10 second hold on L, x10 *wall slides into flexion, 1x10 *reactive iso's w/ green band, IR, 2x10 *reactive iso's w/ green band, ER, 2x10 *supine chest press, 1x10 *supine shoulder flexion, AROM, 1x10 ADDED: *shoulder rows w/ blue band, 2x10 (issued blue band) Access Code: [email or web address] URL: [email or web address] Date: 06/23/2023 Prepared by: JORDAN [facility] Exercises - Shoulder Flexion Wall Slide [...] ASSESSMENT: pt tolerated tx well this date. pt was requesting review of reactive iso's. he was performing properly at home but perhaps w/ too much tension on the band. instructed to begin w/ less tension; this felt improved but IR was more challenging than ER. also added shoulder rows which pt tolerated well. during mobilization, ttp and tightness noted throughout anterior shoulder musculature. pt reported feeling improved following tx. PLAN: continue w/ OT POC; modify tx as needed. pt is in agreement w/ this POC. /lisa/ Nan Pike, MS OTR/Stewart, CHT Occupational Therapist Signed: 06/23/2023 14:18 NAN PIKE [facility] [place] [facility]
--- OUTSIDE RECORDS SUMMARY | 2024-05-10 07:32 | XMS_ITS | Encounter Summary ---
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 [facility] [place] Address [address] [place] [id number] Care Team Providers Care Toe Pounder Name Role Phone CHITO SEGURA Primary Care [...] PART A Feb 16, 2018 PART A [id number] [phone] YENNY OVIEDO PATIENT MEDICARE (WNR) MEDICARE (M) PART B Feb 16, 2018 PART B [id number] YENNY OVIEDO PATIENT MEDICARE (WNR) MEDICARE (M) PART A Oct 17, 2006 PART A [id number] YENNY OVIEDO PATIENT FOR LIFE TFL* Apr 06, 2018 [id number] YENNY OVIEDO PATIENT Selected Encounter This section includes the information on record at [place] for the Encounter. Date/Time Encounter Type Encounter Description Reason Pro vider Source Jun 17, 2023 10:43 AM Outpatient Encounter TELEPHONE PRIMARY CARE IHE Encounter Template Text not used by [place] Plan of Treatment: Future Appointments (+ 6 months) and Future Tests (+/- 45 days) The Plan of Treatment section includes future care activities for the patient [facility] [place] [facility] This section includes future appointments and [...] REHAB MEDICIN E [facility] [place] [facility] Jun 23, 2023 08:00 AM AMBULATORY - MEDICINE [facility] [place] [facility] Jul 04, 2023 09:00 AM AMBULATORY - REHAB MEDICIN E [facility] [place] [facility] Jul 08, 2023 10:00 AM AMBULATORY - REHAB MEDICIN E [facility] [place] [facility] Jul 17, 2023 08:30 AM AMBULATORY - REHAB MEDICIN E [facility] [place] [facility] Jul 17, 2023 12:00 PM AMBULATORY - NONE [facility] [place] [facility] Jul 21, 2023 01:30 PM AMBULATORY - MEDICINE [facility] [place] [facility] Jul 24, 2023 08:30 AM AMBULATORY - REHAB MEDICIN E [facility] [place] [facility] Jul 31, 2023 08:30 AM AMBULATORY - REHAB MEDICIN E [facility] [place] [facility] Aug 04, 2023 08:00 AM [facility] Aug 04, 2023 08:30 AM [facility] Aug 06, 2023 09:00 AM AMBULATORY - REHAB MEDICIN E [facility] [place] [facility] Aug 20, 2023 08:30 AM AMBULATORY - REHAB MEDICIN E [facility] [place] [facility] Aug 26, 2023 09:00 AM AMBULATORY - REHAB MEDICIN E [facility] [place] [facility] Sep 01, 2023 09:00 AM AMBULATORY - REHAB MEDICIN E [facility] [place] [facility] Sep 09, 2023 08:00 AM AMBULATORY - MEDICINE [facility] [place] [facility] Sep 15, 2023 09:00 AM AMBULATORY - REHAB MEDICIN E [facility] [place] [facility] September 22, 2023 09:00 AM AMBULATORY - REHAB MEDICIN E [facility] [place] [facility] September 29, 2023 08:00 AM [facility] September 29, 2023 08:30 AM AMBULATORY - MEDICINE [facility] Lab Results: +/- 30 days of the encounter This section includes the Chemistry and Hematology Lab Results on record with [place] for the patient. Radiology Reports and Pathology Reports are provided separately, in subsequent sections. Lab Results This section contains the Chemistry/Hematology Results that were resulted 30 days before or 30 daysafter the date of the Encounter. Date/Time Source Result Type Result - Unit Interpretation Reference Range Comment Jul 17, 2023 07:35 AM [facility] HEMOGLOBIN A1C PANEL Specimen Type: BLOOD [...] 2023 03:05 PM Reporting Lab: [facility] [address] [address] Performing Lab: [facility] [address] HEMOGLOBIN A1C 6.5 H 4.0-5.6 Jul 17, 2023 07:35 AM [facility] LIPID PANEL FASTING Specimen Type: SERUM No comment entered. Ordering Provider: AYUSH SEGURA Report Released Date/Time: Apr 28, 2023 03:05 PM Reporting Lab: [facility] [address] [address] Performing Lab: [facility] [address] [facility] [address] CHOLESTEROL 118 mg/dL TRIGLYCERIDE 107 mg/dL 0-150 LDL calculated 58 mg/dL 0-129 CHOL/HDL 3.0 HDL CHOLESTEROL 39 mg/dL L 40-60 Jul 17, 2023 07:35 AM [facility] VITAMIN B12 Specimen Type: SERUM No comment entered. Ordering Provider: AYUSH SEGURA F Report Released Date/Time: Apr 28, 2023 03:05 PM Reporting Lab: [facility] [address] [facility] [address] Performing Lab: [address] [address] VITAMIN B12 643 pg/mL 200-900 Jul 17, 2023 07:35 AM [facility] MICROALBUMIN CREATININE RATIO PANEL Specimen Type: URINE No comment entered. Ordering Provider: AYUSH SEGURA F Report Released Date/Time: Apr 28, 2023 03:05 PM Reporting Lab: [address] [address] Performing Lab: [address] [address] MICROALBUMIN/C REATININE RATIO 37.0 mg/g H 0-29.9 MICROALBUMIN,Q UANTITATIVE 3.4 mg/dL RR UNAVAIL CREATININE URINE 91.89 mg/dL Jul 17, 2023 07:35 AM [facility] LIVER FUNCTION Specimen Type: SERUM No comment entered. Ordering Provider: AYUSH SEGURA F Report Released Date/Time: Apr 28, 2023 03:05 PM Reporting Lab: [facility] [address] [address] Performing Lab: [address] [address] PROTEIN,TOTAL 6.2 g/dL 6.0-8.3 ALBUMIN 3.7 g/dL 3.5-5.0 ALKALINE PHOSPHATASE 35 U/L L 40-150 AST 12 U/L 5-34 ALT 13 U/L BILIRUBIN, TOTAL 0.8 mg/dL 0.2-1.2 Jul 17, 2023 07:35 AM [facility] BASIC METABOLIC PANEL (fasting) Specimen Type: SERUM No comment entered. Ordering Provider: AYUSH SEGURA Report Released Date/Time: Apr 28, 2023 03:05 PM Reporting Lab: [facility] [address] [facility] [address] Performing Lab: [facility] [address] [facility] [address] UREA NITROGEN 14 mg/dL 7-25 GLUCOSE 128 mg/dL H 65-100 SODIUM 142 mmol/L 135-145 POTASSIUM 3.9 mmol/L 3.5-5.0 CHLORIDE 107 mmol/L 100-110 CO2 24 meq/L 20-30 CREATININE, Serum 0.69 mg/dL 0.50-1.40 eGFR(CKD-EPI 2020) >90 mL/min >60 Social History: Smoking Status (Most current) and [...] PM VA-TOBACCO QUIT 15 YRS OR MORE [facility] Tobacco Use History This section includes a history of the smoking, or tobacco-related health factors, that were collected on or before the date of the Encounter. The data comes from the [place] facility where the Encounter took place. Date/Time Smoking Status/Tobacco Use Comment F acility Mar 28, 2021 03:28 PM [place]-TO[place] QU[place] 15 YRS OR MORE [facility] Dec 02, 2019 09:36 AM VA-TOBACCO NEVER USED [facility] Apr 23, 2005 10:19 AM QUIT TOBACCO USE IN PAST YEAR [facility] Advance Directives: All historical and current Section [...] 16, 2011 ADVANCE DIRECTIVE DISCUSSION MARGARITA TERRAZAS [place] Encounter Notes: All associated encounter notes This section contains the clinical notes associated to the Encounter. Date/Time Encounter Note(s) Provider Source Jun 17, 2023 10:43 AM ACCOUNTING OF DISC LOSURES NOTE: LOCAL TITLE: STATE PRESCRIPTION DRUG MONITORING PROGRAM STANDARD TITLE: ACCOUNTING OF DISCLOSURES NOTE DATE OF NOTE: JUN 17, 2023@10:43:44 ENTRY DATE: JUN 17, 2023@10:43:44 AUTHOR: CROW ROBERTS COSIGNER: URGENCY: STATUS: COMPLETED This PDMP query was submitted by Crow Roberts. The clinical justification for this PDMP query is to review controlled substances prescribed outside of the [facility], and any additional information that may become available, as an important component of standard clinical care, and in accordance with [facility] policy. Patient information was shared with the PDMP [place]. No prescription(s) for controlled substances outside the [facility] were found in the last 90 days. /lisa/ CROW ROBERTS NP NURSE PRACTITIONER Signed: 06/17/2023 10:43 CROW ROBERTS [facility]
--- OUTSIDE RECORDS SUMMARY | 2024-05-10 07:32 | XMS_ITS ---
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 Date/Time Encounter Type Encounter Description Reason Provider Source Mar 30, 2024 07:30 AM COMPRE OPH EXAM EST PT 1/> OPTOMETRY ICD-10-CM E11.9 Type 2 diabetes mellitus without complications JESSI RONDON [facility] Encounter Template Text not used by MD Assessments - Encounter Diagnoses This section includes the primary and secondary diagnoses documented for the Encounter. Date/Time Primary/Secondary Diagnosis Diagnosis Name Provider Source Mar 30, 2024 08:00 AM PRIMARY Type 2 diabetes mellitus without complications JESSI RONDON [facility] [place] [facility] Mar 30, 2024 08:00 AM SECONDARY Combined forms of age-related cataract, bilateral JESSI RONDON [facility] [place] [facility] Plan of Treatment: Future Appointments (+ 6 months) and Future Tests (+/- 45 days) The Plan of Treatment section includes [facility] care activities for the [facility] This section includes future appointments and future [...] 2024 09:00 AM AMBULATORY - MEDICINE [facility] Apr 12, 2024 08:00 AM AMBULATORY - MEDICINE [facility] Apr 12, 2024 11:00 AM AMBULATORY - MEDICINE [facility] [place] [facility] Apr 12, 2024 01:30 PM AMBULATORY - MEDICINE MD [facility] [place] [facility] Apr 30, 2024 01:40 PM AMBULATORY - NONE [facility] [place] [facility] May 28, 2024 08:30 AM AMBULATORY - MEDICINE MD [facility] [place] [facility] May 31, 2024 11:00 AM AMBULATORY - MEDICINE MD [facility] [place] [facility] Jun 01, 2024 07:30 AM AMBULATORY - NONE [facility] [place] [facility] Jun 28, 2024 08:00 AM [facility] Aug 23, 2024 08:00 AM [facility] - [facility] Active, Pending, and Scheduled Orders This section includes a listing of several types of active, pending, and scheduled orders, including clinic medications orders, diagnostic test orders, procedure orders and consult orders; where the start date of the order is 45 days before the date of the Encounter or 45 days after the date of theEncounter. The data comes from all MD treatment facilities. Test Date/Time Test Type Test Details Facility Name Apr 15, 2024 07:42 AM Consult Order COMMUNITY CARE-CARDIAC SURGERY Cons [employer] [facility] Social History: Smoking Status (Most current) [...] 21, 2023 01:30 PM VA-TOBACCO FORMER USER [facility] Tobacco Use History This section includes a history of the smoking, or tobacco-related health factors, that were collected on or before the date of the Encounter. The data comes from the MD facility where the Encounter took place. Date/Time Smoking Status/Tobacco Use Comment F acility Jul 21, 2023 01:30 PM VA-TOBACCO QUIT 15 YRS OR MORE [facility] Mar 28, 2021 03:28 PM VA-TOBACCO [facility] Mar 28, 2021 03:28 PM VA-TOBACCO QUIT 15 YRS OR MORE [facility] Dec 02, 2019 09:36 AM VA-TOBACCO NEVER USED [facility] Apr 23, 2005 10:19 AM QUIT TOBACCO USE IN PAST YEAR [facility] Advance Directives: All historical and current [...] Encounter Note(s) Provider Source Mar 30, 2024 07:35 AM OPTOMETRY NOTE: LOCAL TITLE: OPTOMETRY NOTE STANDARD TITLE: OPTOMETRY NOTE DATE OF NOTE: MAR 30, 2024@07:35 ENTRY DATE: MAR 30, 2024@07:35:48 AUTHOR: KEKE RONDON EXP COSIGNER: URGENCY: STATUS: COMPLETED Active problems - Computerized Problem List is the source for the followin. Long-term current use of anticoagulant 2. Atrial fibrillation (RUST 67360428) 3. Exposure to potentially hazardous substance (RUST [id number]) 4. SAS - Sleep apnea syndrome 5. COPD - Chronic Obstructive Pulmonary Disease (RUST [id number]) 6. Gastroesophageal reflux disease 7. Benign localized hyperplasia of prostate 8. Deficiency of vitamin D3 9. Thrombocytopenia 10. Diabetes mellitus type 2 (SNOMED CT 46629469) 11. Disorder of rotator cuff 12. Lumbar Radiculopathy 13. Diverticulitis, Colonic * 14. Gastroesophageal Reflux Disorder 15. Degenerative arthritis (SNOMED CT 144243381) 16. Mitral Valve Prolapse 17. Hyperlipidaemia (SNOMED CT 74813929) 18. Benign essential hypertension (SNOMED CT 2376822) 19. Obesity 20. Posttraumatic Stress Disorder 21. Panic Attacks Active Outpatient Medications (including Supplies): Active Outpatient Medications Status 1) ACCU-CHEK GUIDE (GLUCOSE) TEST STRIP USE 1 STRIP TO ACTIVE TEST BLOOD SUGARS TWO TIMES A WEEK 2) ALBUTEROL 100/IPRATRO 20MCG 120D PO INHL INHALE 1 ACTIVE PUFF BY MOUTH FOUR TIMES DAILY NEEDED --FOR BREATHING 3) APIXABAN 5MG TAB TAKE ONE TABLET BY MOUTH EVERY 12 ACTIVE HOURS FOR PREVENTION OF BLOOD CLOTS 4) ATORVASTATIN CALCIUM 40MG TAB TAKE ONE-HALF TABLET BY ACTIVE MOUTH EVERY EVENING FOR CHOLESTEROL 5) CYANOCOBALAMIN 1000MCG TAB TAKE ONE TABLET BY MOUTH ACTIVE ONCE DAILY 6) DILTIAZEM (EQV-CARDIZEM) 120MG 24HR CAP TAKE ONE ACTIVE CAPSULE BY MOUTH ONCE DAILY FOR HIGH BLOOD PRESSURE 7) EPINEPHRINE (EQV-EPI-PEN) 0.3MG/0.3ML INJECT ACTIVE DIRECTED INTRAMUSCULARLY NEEDED FOR LIFE THREATENING ALLERGIC REACTION 8) FINASTERIDE 5MG TAB TAKE ONE TABLET BY MOUTH DAILY ACTIVE (S) FOR PROSTATE 9) FLUTICASONE PROP 50MCG 120D NASAL INHL INSTILL 2 ACTIVE SPRAYS INTO EACH NOSTRIL ONCE DAILY NEEDED FOR NASAL IRRITATION/INFLAMMATION 10) KETOCONAZOLE 2% CREAM APPLY A THIN LAYER TOPICALLY ACTIVE TWICE DAILY FOR ATHLETE'S FOOT 11) METFORMIN HCL 750MG 24HR SA TAB TAKE TWO TABLETS BY ACTIVE (S) MOUTH EVERY EVENING 12) MICONAZOLE NITRATE 2% TOP PWDR APPLY SMALL AMOUNT ACTIVE TOPICALLY TWICE DAILY FOR ATHLETE'S FOOT 13) MOMETASONE 200MCG/ACTUAT 120D ORAL INHL INHALE 2 ACTIVE PUFFS BY MOUTH TWICE DAILY FOR CONTROLLER MEDICATION FOR ASTHMA --RINSE MOUTH AFTER EACH USE 14) MONTELUKAST NA 10MG TAB TAKE ONE TABLET BY MOUTH ACTIVE EVERY EVENING FOR CONTROLLER MEDICATION FOR ASTHMA 15) OMEPRAZOLE 20MG EC CAP TAKE TWO CAPSULES BY MOUTH ACTIVE DAILY FOR STOMACH ACID 16) SEMAGLUTIDE 1MG/0.75ML INJ PEN 3ML INJECT 1MG ACTIVE SUBCUTANEOUSLY ONCE A WEEK FOR TYPE 2 DIABETES MELLITUS 17) SPIRONOLACTONE 25MG TAB TAKE ONE-HALF TABLET BY MOUTH ACTIVE ONCE DAILY 18) TADALAFIL 5MG TAB TAKE ONE TABLET BY MOUTH ONCE DAILY ACTIVE FOR BPH 19) TERAZOSIN HCL 10MG CAP TAKE ONE CAPSULE BY MOUTH AT ACTIVE (S) BEDTIME FOR BPH 20) TRIAMCINOLONE ACETONIDE 0.1% CREAM APPLY A THIN LAYER ACTIVE TOPICALLY TWICE DAILY FOR ITCHING 21) WATER STERILE FOR IRRIGATION IRRIGATE MODERATE AMOUNT [...] CAP 2MG BY MOUTH ACTIVE ONCE DAILY 26 Total Medications Allergies: NONSTEROIDAL ANTI-INFLAMMATORY, POVIDONE IODINE, PHISOHEX, THIMEROSAL, PAXIL PINEAPPLES, MONOSODIUM GLUTAMATE, MELONS, LISINOPRIL, TAMSULOSIN, LOSARTAN All medications including those prescribed by outside VA's, community providers, and all OTC meds were reviewed and reconciled with patient to the best of their abilities. This 69 year old MALE is seen today for comprehensive eye examination. Medical, eye, personal, and social history are all reviewed and is contributory to today's visit for diabetes without retinopathy or macular edema either eye as well as bilateral cataracts. His last eye examination was here on March 13, 2023. His most recent hemoglobin A1c obtained on January 05, 2024 was 6.1. He presents today noting increased difficulty in focusing for distance and near which he attributes to his failing heart valve which requires replacement. (-) Pain: (-) ALEGRIA: (-) Diplopia: (-) Flashes: (-) Floaters: (-) Amaurosis Fugax/Tia's: (-) Eye Injury: (-) Eye Surgery: (-) TBI: Chief Complaint: Increased difficulty focusing distance and near Vision: With 20/40 right eye 20/25 left eye Without Correction Pupils, EOMS, confrontation mathews are all done and show round, miotic minimally reactive pupils without afferent pupillary defect with full extraocular motility and full confrontation mathews to finger countining each eye Current Wear: OD: -2.50 -1.25 axis 072 OS: -2.00 -0.50 axis 035 +2.50 add Refraction: OD: -2.00 -1.00 axis 072 20/20 ( slow) OS: -2.00 -0.50 axis 035 20/20 +2.50 add 20/20 Tonometry: 9 OD 9 OS Time: 7:29 AM dilated with tropicamide 1% and phenylephrine 2.5% each eye after dilation warning given and verbal consent obtained PreTreatment IOP: OD OS Pachymetry: Rosacea facies Anterior segment: Lids: Dermatochalasis, ptosis with lower lid bags and mild lower lid ectropion right and left lower lid Conj: White and quiet each eye Cornea: Clear centrally without staining or pigment each eye AC: 3+ and quiet each eye Iris: Normal no each eye NVI Lens: 1+ to 2 nuclear sclerosis with trace anterior cortical changes each eye Vit: Clear each eye Fundus exam: Dilated: xxx Non dilated: C/D: 0.50 right eye 0.45 left eye with distinct disc margins, good color no NVD Macula: No lipid, edema, thickening each eye A/V: 1/2 each eye Vessels: Normal each eye Periphery: No NVE, holes, tears, detachments each eye Impression: Diabetes without retinopathy or macular edema either eye. Stressed the importance of continued optimize control of blood sugar, blood pressure and cholesterol with healthy lifestyle. Bilateral nuclear sclerotic and cortical cataracts functioning well visually at present. Update glasses today. Plan: Patient education as noted above reviewed exam findings now. Ordered new bifocals clear and sun. Return in 12 months or sooner if need be. Education: Diabetes: Patient was educated regarding diabetes and related ocular complications including retinopathy and cataract formation as well as other related systemic complications. The importance of good blood sugar control, blood sugar testing as recommended by their PCP and the importance of timely follow up were all emphasized. Ophthalmic medication reconciliation: He is currently not taking or prescribed any ocular medications. Medication Reconciliation: Outpatient: Has the patient been taking medications as documented in the EMLR? YES: The patient has been taking medications as documented in the EMLR. Essential Medication List for Review used to complete this medication reconciliation. INCLUDED IN THIS LIST: Alphabetical list of active outpatient prescriptions dispensed from this VA (local) and dispensed from another VA or DoD facility (remote) as well as [...] whether with a VA or non-VA provider. JL Link Data on this list may not be complete. Please check JLV. Allergies/ADRs (Tool #5) FACILITY ALLERGY/ADR -------- CLNCL/HLTH RAJESH REPT EFF [id number] TAMSULOSIN [facility] [place] [facility] LISINOPRIL [facility] [place] [facility] LOSARTAN [facility] [place] [facility] MELONS [facility] [place] [facility] MONOSODIUM GLUTAMATE [facility] [place] [facility] NONSTEROIDAL ANTI-INFLAMMATORY [facility] [place] [facility] PAXIL [facility] [place] [facility] PHISOHEX [facility] [place] [facility] PINEAPPLES [facility] [place] POVIDONE IODINE [facility] [place] [facility] TAMSULOSIN [facility] [place] [facility] THIMEROSAL Med Recon NoGlossary (Tool #1) INCLUDED IN THIS LIST: Alphabetical list of active outpatient prescriptions dispensed from this VA (local) and dispensed from another VA or DoD facility (remote) as well as inpatient orders (local pending and active), local clinic medications, locally documented non-VA medications, and local prescriptions that have or been discontinued in the past 90 days. Non-VA Meds Last Documented On: September 29, 2023 NOTE The display of VA prescriptions dispensed from another VA or DoD facility (remote) is limited to active outpatient prescription entries matched to National Drug File at the originating site and may not include some items such as investigational drugs, compounds, etc. NOT INCLUDED IN THIS LIST: Medications self-entered by the patient into personal health records (i.e. [employer]) are NOT included in this list. Non-VA medications documented outside this MD, remote inpatient orders (regardless of status) and remote clinic medications are NOT included in this list. The patient and provider must always discuss medications the patient is taking, regardless of where the medication was dispensed or obtained. OUTPT ALBUTEROL 100/IPRATRO 20MCG 120D PO INHL (Status = Active) INHALE 1 PUFF BY MOUTH FOUR TIMES DAILY NEEDED --FOR BREATHING Rx# [id number] Last Released: 02/13/24 Qty/Days Supply: Rx Expiration Date: 02/11/25 Refills Remainin Indication: FOR BRONCHOSPASM OUTPT AMIODARONE HCL 200MG TAB (Status = Discontinued) TAKE ONE TABLET BY MOUTH ONCE DAILY Rx# [id number] Last Released: 02/18/24 Qty/Days Supply: Rx Expiration Date: 02/05/25 Refills Remainin OUTPT APIXABAN 5MG TAB (Status = Active) TAKE ONE TABLET BY MOUTH EVERY 12 HOURS FOR PREVENTION OF BLOOD CLOTS Rx# [id number] Last Released: 03/06/24 Qty/Days Supply: 180 Rx Expiration Date: 02/18/25 Refills Remainin Indication: FOR PREVENTION OF BLOOD CLOTS OUTPT ATORVASTATIN CALCIUM 40MG TAB (Status = Active) TAKE ONE-HALF TABLET BY MOUTH EVERY EVENING FOR CHOLESTEROL Rx# [id number] Last Released: 03/12/24 Qty/Days Supply: 45 Rx Expiration Date: 04/28/24 Refills Remainin Indication: FOR HIGH CHOLESTEROL OUTPT CEPHALEXIN 500MG CAP (Status = ) TAKE FOUR CAPSULES BY MOUTH ONE TIME ; TAKE ONE HOUR PRIOR TO DENTAL APPOINTMENT (8 CAPSULES COVERS 2 DENTAL APPOINTMENTS) Rx# [id number] Last Released: 02/21/24 Qty/Days Supply: 12/18 Rx Expiration Date: 03/20/24 Refills Remainin Indication: FOR INFECTION CAUSED BY BACTERIA Non-VA CHOLECALCIF 25MCG (D3-1,000UNIT) TAB TAKE ONE TABLET BY MOUTH ONCE DAILY Indication: FOR VITAMIN D DEFICIENCY OUTPT CYANOCOBALAMIN 1000MCG TAB (Status = Discontinued) TAKE ONE TABLET BY MOUTH ONCE DAILY Rx# [id number] Last Released: 12/30/23 Qty/Days Supply: Rx Expiration Date: 04/28/24 Refills Remainin Indication: FOR PREVENTION OF VITAMIN B12 DEFICIENCY OUTPT CYANOCOBALAMIN 1000MCG TAB (Status = Active) TAKE ONE TABLET BY MOUTH ONCE DAILY Rx# [id number] Last Released: Qty/Days Supply: Rx Expiration Date: 01/22/25 Refills Remainin Indication: FOR PREVENTION OF VITAMIN B12 DEFICIENCY Non-VA DICLOFENAC 1% GEL (EQV-VOLTAREN) GEL,TOP APPLY TOPICALLY FOUR TIMES A DAY OUTPT DILTIAZEM (EQV-CARDIZEM) 120MG 24HR CAP (Status = Active) TAKE ONE CAPSULE BY MOUTH ONCE DAILY FOR HIGH BLOOD PRESSURE Rx# [id number] Last Released: 03/12/24 Qty/Days Supply: Rx Expiration Date: 06/08/24 Refills Remainin Indication: FOR HIGH BLOOD PRESSURE OUTPT DILTIAZEM (EQV-CARDIZEM) 180MG 24HR CAP (Status = Discontinued) TAKE ONE CAPSULE BY MOUTH ONCE DAILY Rx# [id number] Last Released: 11/12/23 Qty/Days Supply: Rx Expiration Date: 06/04/24 Refills Remainin OUTPT EPINEPHRINE (EQV-EPI-PEN) 0.3MG/0.3ML (Status = Active) INJECT DIRECTED INTRAMUSCULARLY NEEDED FOR LIFE THREATENING ALLERGIC REACTION Rx# [id number] Last Released: 01/26/24 Qty/Days Supply: Rx Expiration Date: 04/21/24 Refills Remainin Indication: FOR LIFE THREATENING ALLERGIC REACTION OUTPT FINASTERIDE 5MG TAB (Status = Discontinued) TAKE ONE TABLET BY MOUTH DAILY FOR PROSTATE Rx# [id number] Last Released: 12/27/23 Qty/Days Supply: Rx Expiration Date: 02/19/24 Refills Remainin OUTPT FINASTERIDE 5MG TAB (Status = Active/Suspended) TAKE ONE TABLET BY MOUTH DAILY FOR PROSTATE Rx# [id number] Last Released: 03/26/24 Qty/Days Supply: Rx Expiration Date: 01/22/25 Refills Remainin OUTPT FLUTICASONE PROP 50MCG 120D NASAL INHL (Status = Active) INSTILL 2 SPRAYS INTO EACH NOSTRIL ONCE DAILY NEEDED FOR NASAL IRRITATION/INFLAMMATION Rx# [id number] Last Released: 02/04/24 Qty/Days Supply: Rx Expiration Date: 07/21/24 Refills Remainin OUTPT KETOCONAZOLE 2% CREAM (Status = Active) APPLY A THIN LAYER TOPICALLY TWICE DAILY FOR ATHLETE'S FOOT Rx# [id number] Last Released: 02/21/24 Qty/Days Supply: 60 Rx Expiration Date: 06/13/24 Refills Remainin Indication: FOR ATHLETE'S FOOT OUTPT METFORMIN HCL 750MG 24HR SA TAB (Status = Active/Suspended) TAKE TWO TABLETS BY MOUTH EVERY EVENING Rx# [id number] Last Released: 01/06/24 Qty/Days Supply: 180 Rx Expiration Date: 07/21/24 Refills Remainin Indication: FOR TYPE 2 DIABETES MELLITUS OUTPT METOPROLOL SUCCINATE 25MG SA TAB (Status = Discontinued) TAKE ONE TABLET BY MOUTH TWICE DAILY FOR HEART FAILURE Rx# [id number] Last Released: 12/30/23 Qty/Days Supply: Rx Expiration Date: 04/28/24 Refills Remainin Indication: FOR CHRONIC HEART FAILURE OUTPT METRONIDAZOLE 500MG TAB (Status = ) TAKE FOUR TABLETS BY MOUTH ONE TIME DENTAL PRE-MEDICATION (COVERS 2 APPOINTMENTS) Rx# [id number] Last Released: 02/19/24 Qty/Days Supply: 12/18 Rx Expiration Date: 03/18/24 Refills Remainin Indication: FOR INFECTION OUTPT MICONAZOLE NITRATE 2% [facility] (Status = Active) APPLY SMALL AMOUNT TOPICALLY TWICE DAILY FOR ATHLETE'S FOOT Rx# [id number] Last Released: 11/26/23 Qty/Days Supply: Rx Expiration Date: 07/03/24 Refills Remainin Indication: FOR ATHLETE'S FOOT OUTPT MOMETASONE 200MCG/ACTUAT 120D ORAL INHL (Status = Discontinued) INHALE 2 PUFFS BY MOUTH TWICE DAILY FOR CONTROLLER MEDICATION FOR ASTHMA --RINSE MOUTH AFTER EACH USE Rx# [id number] Last Released: 12/30/23 Qty/Days Supply: Rx Expiration Date: 04/23/24 Refills Remainin Indication: FOR CONTROLLER MEDICATION FOR ASTHMA OUTPT MOMETASONE 200MCG/ACTUAT 120D ORAL INHL (Status = Active) INHALE 2 PUFFS BY MOUTH TWICE DAILY FOR CONTROLLER MEDICATION FOR ASTHMA --RINSE MOUTH AFTER EACH USE Rx# [id number] Last Released: Qt Supply: Rx Expiration Date: 01/22/25 Refills Remainin Indication: FOR CONTROLLER MEDICATION FOR ASTHMA OUTPT MONTELUKAST NA 10MG TAB (Status = Active) TAKE ONE TABLET BY MOUTH EVERY EVENING FOR CONTROLLER MEDICATION FOR ASTHMA Rx# [id number] Last Released: 03/12/24 Qty/Days Supply: Rx Expiration Date: 04/28/24 Refills Remainin Indication: FOR CONTROLLER MEDICATION FOR ASTHMA OUTPT OMEPRAZOLE 20MG EC CAP (Status = Active) TAKE TWO CAPSULES BY MOUTH DAILY FOR STOMACH ACID Rx# [id number] Last Released: 02/04/24 Qty/Days Supply: Rx Expiration Date: 07/21/24 Refills Remainin Non-VA OTHER CAP/TAB TAKE BUTALBITAL BY MOUTH ONCE DAILY NEEDED About twice a year for headaches. Non-VA SAW PALMETTO CAP/TAB TAKE BY MOUTH OUTPT SEMAGLUTIDE 1MG/0.75ML INJ PEN 3ML (Status = Active) INJECT 1MG SUBCUTANEOUSLY ONCE A WEEK FOR TYPE 2 DIABETES MELLITUS Rx# [id number] Last Released: 03/17/24 Qty/Days Supply: 06/15 Rx Expiration Date: 06/09/24 Refills Remainin Indication: FOR TYPE 2 DIABETES MELLITUS OUTPT SPIRONOLACTONE 25MG TAB (Status = Active) TAKE ONE-HALF TABLET BY MOUTH ONCE DAILY Rx# [id number] Last Released: 02/19/24 Qty/Days Supply: Rx Expiration Date: 02/05/25 Refills Remainin OUTPT TADALAFIL 5MG TAB (Status = Discontinued) TAKE ONE TABLET BY MOUTH ONCE DAILY FOR BPH Rx# [id number] Last Released: 02/02/24 Qty/Days Supply: Rx Expiration Date: 07/21/24 Refills Remainin Indication: FOR ERECTILE DYSFUNTION OUTPT TADALAFIL 5MG TAB (Status = Active) TAKE ONE TABLET BY MOUTH ONCE DAILY FOR BPH Rx# [id number] Last Released: 03/04/24 Qty/Days Supply: Rx Expiration Date: 02/21/25 Refills Remainin Indication: FOR ERECTILE DYSFUNTION OUTPT TERAZOSIN HCL 10MG CAP (Status = Active/Suspended) TAKE ONE CAPSULE BY MOUTH AT BEDTIME FOR BPH Rx# [id number] Last Released: 01/22/24 Qty/Days Supply: Rx Expiration Date: 07/21/24 Refills Remainin Non-VA TOLTERODINE TARTRATE 2MG SA CAP TAKE 1 CAPSULE BY MOUTH ONCE DAILY Non-VA medication not recommended by VA provider. OUTPT TRIAMCINOLONE ACETONIDE 0.1% CREAM (Status = Active) APPLY A THIN LAYER TOPICALLY TWICE DAILY FOR ITCHING Rx# [id number] Last Released: 10/29/23 Qty/Days Supply: 90 Rx Expiration Date: 06/09/24 Refills Remainin Indication: FOR ITCHING OUTPT WATER STERILE FOR IRRIGATION (Status = Active) IRRIGATE MODERATE AMOUNT DIRECTED ONCE DAILY FOR C-PAP MACHINE Rx# [id number] Last Released: 03/17/24 Qty/Days Supply: 62609/60 Rx Expiration Date: 07/21/24 Refills Remainin SUPPLIES OUTPT ACCU-CHEK GUIDE (GLUCOSE) TEST STRIP (Status = Active) USE 1 STRIP TO TEST BLOOD SUGARS TWO TIMES A WEEK Rx# [id number] Last Released: 11/12/23 Qty/Days Supply: 50/180 Rx Expiration Date: 06/03/24 Refills Remainin Indication: DIABETES MELLITUS Declines printed copy of medication list now. /lisa/ Keke Rondon OD CHIEF OF OPTOMETRY Signed: 03/30/2024 08:01 KEKE RONDON [facility]
--- OUTSIDE RECORDS SUMMARY | 2024-05-10 07:32 | XMS_ITS | Encounter Summary ---
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 Address [address] [place] [id number] Care Team Providers Care Helicopter Officer Name Role Phone CHITO SEGURA Primary [...] PART A Feb 16, 2018 PART A [id number] YENNY OVIEDO PATIENT MEDICARE (WNR) MEDICARE (M) PART B Feb 16, 2018 PART B [id number] YENNY OVIEDO ES PATIENT MEDICARE (WNR) MEDICARE (M) PART A Oct 17, 2006 PART A [id number] YENNY OVIEDO PATIENT FOR LIFE TFL* Apr 06, 2018 [id number] YENNY OVIEDO PATIENT Selected Encounter This section includes the information on record at [place] for the Encounter. Date/Time Encounter Type Encounter Description Reason Pro vider Source Jun 09, 2023 10:19 AM Outpatient Encounter PODIATRY IHE Encounter Template Text not used by [place] Plan of Treatment: Future Appointments (+ 6 months) and Future Tests (+/- 45 days) The Plan of Treatment section includes future care activities for the patient from all [place] [facility]. This section includes future appointments and [...] REHAB MEDIC[facility] [place] [facility] Jun 23, 2023 07:30 AM AMBULATORY - REHAB MEDICIN E [facility] [place] [facility] Jun 23, 2023 08:00 AM AMBULATORY - MEDICINE [place] [facility] [place] [facility] Jul 04, 2023 09:00 AM AMBULATORY - REHAB MEDICIN E [facility] [place] [facility] Jul 08, 2023 10:00 AM AMBULATORY - REHAB MEDICIN E [facility] [place] [facility] Jul 17, 2023 08:30 AM AMBULATORY - REHAB MEDICIN E [facility] [place] [facility] Jul 17, 2023 12:00 PM AMBULATORY - NONE [facility] [place] [facility] Jul 21, 2023 01:30 PM AMBULATORY - MEDICINE [place] [facility] [place] [place] [facility] Jul 24, 2023 08:30 AM AMBULATORY - REHAB MEDICIN E [facility] [place] [facility] Jul 31, 2023 08:30 AM AMBULATORY - REHAB MEDICIN E [facility] [place] [place] [facility] Aug 04, 2023 08:00 AM AM[facility]ULATORY [facility] Aug 04, 2023 08:30 AM [facility] Aug 06, 2023 09:00 AM AMBULATORY - [facility] MEDICIN [facility] [place] [facility] Aug 20, 2023 08:30 AM AMBULATORY - REHAB MEDICIN E [facility] [place] [facility] Aug 26, 2023 09:00 AM AMBULATORY - REHAB MEDICIN E [facility] [place] [facility] Sep 01, 2023 09:00 AM AMBULATORY - REHAB MEDICIN E [place] [facility] [place] [facility] Sep 09, 2023 08:00 AM AMBULATORY - MEDICINE [place] [facility] [place] [facility] Sep 15, 2023 09:00 AM AMBULATORY - REHAB MEDICIN E [place] [facility] [place] [facility] September 22, 2023 09:00 AM [facility] September 29, 2023 08:00 AM AMBULATORY - MEDICINE [facility] Social History: Smoking Status (Most current) [...] 28, 2021 03:28 PM VA-TOBACCO FORMER USER [facility] Tobacco Use History This section includes a history of the smoking, or tobacco-related health factors, that were collected on or before the date of the Encounter. The data comes from the [place] facility where the Encounter took place. Date/Time Smoking Status/Tobacco Use Comment F acility Mar 28, 2021 03:28 PM VA-TOBACCO QUIT 15 YRS OR [facility] Dec 02, 2019 09:36 AM VA-TOBACCO [facility] Apr 23, 2005 10:19 AM QUIT [facility] Advance Directives: All historical and current Section Date Range: From patient's date of to the date document was created. This section includes ALL of a patient's completed or amended [place] Advance and Rescinded Directives. The entries below [...] Encounter Note(s) Provider Source Jun 09, 2023 10:19 AM TELEPHONE ENCOUNTE R NOTE: LOCAL TITLE: TELEPHONE NOTE/SPECIALTY CLINIC STANDARD TITLE: TELEPHONE ENCOUNTER NOTE DATE OF NOTE: JUN 09, 2023@10:19 ENTRY DATE: JUN 09, 2023@10:19:31 AUTHOR: GASTON OLVERA EXP COSIGNER: URGENCY: STATUS: COMPLETED called stating he was only able to grape picker 1 rx and would like to grape picker the second. Vet states he will be at [facility] this afternoon and would like to pick it up then /lisa/ GASTON OLVERA COMPRESSION MOLDING MACHINE SETTER Signed: 06/09/2023 10:21 Receipt Acknowledged By: 06/09/2023 11:49 /lisa/ JUVENAL ROSS DPM VOCATIONAL REHABILITATION COUNSELOR GASTON OLVERA [place]
--- OUTSIDE RECORDS SUMMARY | 2024-05-10 07:33 | XMS_ITS ---
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 Organization [place] Address [address] [place] [id number] Care Team Providers Care Quantitative Analyst Developer Name Role Phone CHITO SEGURA Primary [...] PART A Feb 16, 2018 PART A [id number] YENNY OVIEDO PATIENT MEDICARE (WNR) MEDICARE (M) PART B Feb 16, 2018 PART B [id number] YENNY OVIEDO ES PATIENT MEDICARE (WNR) MEDICARE (M) PART A Oct 17, 2006 PART A [id number] YENNY OVIEDO PATIENT FOR LIFE TFL* Apr 06, 2018 [id number] YENNY OVIEDO PATIENT Selected Encounter This section includes the information on record at [place] for the Encounter. Date/Time Encounter Type Encounter Description Reason Pro vider Source Mar 04, 2024 12:00 AM Outpatient Encounter COMMUNITY CARE CONSULT IHE Encounter Template Text not used by [place] Plan of Treatment: Future Appointments (+ 6 months) and Future Tests (+/- 45 days) The Plan of Treatment section includes future care activities for the patient from all [place] [facility]. This section includes future appointments and future orders which are active, pending or scheduled. Future Appointments This section includes appointments that were scheduled to occur 6 months from the date of the Encounter, up to a maximum of 20 appointments. The data comes from all [facility]. Appointment Date/Time Appointment Type Appointme nt Facility Name Mar 16, 2024 09:30 AM AMBULATORY - NONE [place] [facility] [place] [facility] Mar 30, 2024 07:30 AM AMBULATORY - MEDICINE [place] [facility] [place] [facility] Apr 06, 2024 09:00 AM AMBULATORY - MEDICINE [facility] Apr 12, 2024 08:00 AM AMBULATORY - MEDICINE [facility] Apr 12, 2024 11:00 AM AMBULATORY - MEDICINE [place] [facility] [place] [facility] Apr 12, 2024 01:30 PM AMBULATORY - MEDICINE [place] [facility] [place] [facility] Apr 30, 2024 01:40 PM AMBULATORY - NONE [place] [facility] [place] [facility] May 28, 2024 08:30 AM AMBULATORY - MEDICINE [place] [facility] [place] [facility] May 31, 2024 11:00 AM AMBULATORY - MEDICINE [place] [facility] [place] [facility] Jun 01, 2024 07:30 AM AMBULATORY - NONE [place] [facility] [place] [facility] Jun 28, 2024 08:00 AM AMBULATORY - MEDICINE [facility] Aug 23, 2024 08:00 AM AMBULATORY - MEDICINE [facility] Active, Pending, and Scheduled Orders This section includes a listing of several types of active, pending, and scheduled orders, including clinic medications orders, diagnostic test orders, procedure orders and consult orders; where the start date of the order is 45 days before the date of the Encounter or 45 days after the date of theEncounter. The data comes from all [facility]. Test Date/Time Test Type Test Details Facility Name Apr 15, 2024 07:42 AM Consult Order COMMUNITY CARE-CARDIAC SURGERY Cons Shutdown Planner's Choice [place] [facility] [place] [facility] Lab Results: +/- 30 days of [...] Range Comment Feb 27, 2024 07:43 AM [facility] CREATININE (eGFR 2020) Specimen Type: SERUM No comment entered. Ordering Provider: ELIEL SEGURA Report Released Date/Time: Feb 23, 2024 02:44 PM Reporting Lab: [address] [address] Performing Lab: [address] [address] CREATININE, Serum 0.84 mg/dL 0.50-1.40 eGFR(CKD-EPI 2020) >90 mL/min >60 Feb 27, 2024 07:43 AM [facility] LIVER FUNCTION Specimen Type: SERUM No comment entered. Ordering Provider: ELILE SEGURA Report Released Date/Time: Feb 23, 2024 02:44 PM Reporting Lab: [address] [address] Performing Lab: [address] [address] PROTEIN,TOTAL 6.3 g/dL 6.0-8.3 ALBUMIN 3.5 g/dL 3.5-5.0 ALKALINE PHOSPHATASE 45 U/L 40-150 AST 19 U/L 5-34 ALT 23 U/L BILIRUBIN, TOTAL 0.6 mg/dL 0.2-1.2 Feb 27, 2024 07:43 AM [facility] PT & INR (COUMADIN) Specimen Type: PLASMA No comment entered. Ordering Provider: ELIEL SEGURA Report Released Date/Time: Feb 23, 2024 02:44 PM Reporting Lab: [address] [address] Performing Lab: [facility] [address] [address] INR 1.4 PROTIME 15.4 s H 10.0-13.1 Feb 27, 2024 07:43 AM [facility] CBC Specimen Type: BLOOD No comment entered. Ordering Provider: ELIEL SEGURA Report Released Date/Time: Feb 23, 2024 02:44 PM Reporting Lab: [facility] [address] [address] Performing Lab: [facility] [address] [address] WBC 6.44 10*3/uL 4.50-11.00 RBC 4.42 10*6/uL [...] 21, 2023 01:30 PM VA-TOBACCO FORMER USER [facility] Tobacco Use History This section includes a history of the smoking, or tobacco-related health factors, that were collected on or before the date of the Encounter. The data comes from the [place] facility where the Encounter took place. Date/Time Smoking Status/Tobacco Use Comment Wilberto holbrook Jul 21, 2023 01:30 PM VA-TOBACCO QUIT 15 YRS OR MORE [facility] Mar 28, 2021 03:28 PM VA-TOBACCO FORMER USER [facility] Mar 28, 2021 03:28 PM VA-TOBACCO QUIT 15 YRS OR MORE [facility] Dec 02, 2019 09:36 AM VA-TOBACCO NEVER USED [facility] Apr 23, 2005 10:19 AM QUIT TOBACCO USE IN PAST YEAR [facility] Advance Directives: All historical and current Section [...] 16, 2011 ADVANCE DIRECTIVE DISCUSSION MARGARITA TERRAZAS [place] Encounter Notes: All associated encounter notes This section contains the clinical notes associated to the Encounter. Date/Time Encounter Note(s) Provider Source Mar 04, 2024 12:00 AM NONVA CONSULT: LOCAL TITLE: COMMUNITY CARE-CONSULT RESULT NOTE STANDARD TITLE: NONVA CONSULT DATE OF NOTE: MAR 04, 2024 ENTRY DATE: APR 02, 2024@14:21:18 AUTHOR: MAGO WAN EXP COSIGNER: URGENCY: STATUS: COMPLETED VistA Imaging - Scanned Document SCANNED DOCUMENT SIGNATURE NOT REQUIRED Electronically Filed: 04/02/2024 by: MAGO WAN BRIEF WRITER MAGO WAN [facility]
--- OUTSIDE RECORDS SUMMARY | 2024-05-10 07:33 | XMS_ITS | Encounter Summary ---
Author Name [place] Address [address] [place] [address] Care Team Providers Care Operating Room Surgical Technician Name Role Phone CHITO SEGURA Primary [...] PART A Feb 16, 2018 PART A [id number] YENNY OVIEDO PATIENT MEDICARE (WNR) MEDICARE (M) PART B Feb 16, 2018 PART B [id number] YENNY OVIEDO ES PATIENT MEDICARE (WNR) MEDICARE (M) PART A Oct 17, 2006 PART A [id number] [facility] YENNY OVIEDO PATIENT FOR LIFE TFL* Apr 06, 2018 [id number] [phone] YENNY OVIEDO PATIENT Selected Encounter This section includes the information on record at [place] for the Encounter. Date/Time Encounter Type Encounter Description Reason Provider Source Apr 02, 2024 02:20 PM Outpatient Encounter PRIMARY CARE/MEDICINE BEVERLY FLORES IHAyah Encounter Template Text not used by [place] Plan of Treatment: Future Appointments (+ 6 months) and Future Tests (+/- 45 days) The Plan of Treatment section includes future care activities for the patient from all [place] [facility]. This section includes future appointments and future orders which are active, pending or scheduled. Future Appointments This section includes appointments that were scheduled to occur 6 months from the date of the Encounter, up to a maximum of 20 appointments. The data comes from all [facility]. Appointment Date/Time Appointment Type Appointme nt Facility Name Apr 06, 2024 09:00 AM AMBULATORY - MEDICINE [facility] Apr 12, 2024 08:00 AM AMBULATORY - MEDICINE [facility] Apr 12, 2024 11:00 AM AMBULATORY - MEDICINE [place] [facility] Apr 12, 2024 01:30 PM AMBULATORY - MEDICINE [place] [facility] Apr 30, 2024 01:40 PM AMBULATORY - NONE [place] [facility] [place] [facility] May 28, 2024 08:30 AM AMBULATORY - MEDICINE [place] [facility] May 31, 2024 11:00 AM AMBULATORY - MEDICINE [place] [facility] Jun 01, 2024 07:30 AM AMBULATORY - NONE [place] [facility] [place] [facility] Jun 28, 2024 08:00 AM AMBULATORY - MEDICINE [facility] Aug 23, 2024 08:00 AM [facility] Active, Pending, and Scheduled Orders This section includes a listing of several types of active, pending, and scheduled orders, including clinic medications orders, diagnostic test orders, procedure orders and consult orders; where the start date of the order is 45 days before the date of the Encounter or 45 days after the date of theEncounter. The data comes from all [facility]. Test Date/Time Test Type Test Details Facility Name Apr 15, 2024 07:42 AM Consult Order COMMUNITY CARE-CARDIAC SURGERY Cons [employer] Cord's Choice [place] [facility] [place] [facility] Social History: Smoking Status (Most current) [...] ellis Jul 21, 2023 01:30 PM VA-TOBACCO QUIT 15 YRS OR MORE [facility] Tobacco Use History This section includes a history of the smoking, or tobacco-related health factors, that were collected on or before the date of the Encounter. The data comes from the [place] facility where the Encounter took place. Date/Time Smoking Status/Tobacco Use Comment Wilberto holbrook Jul 21, 2023 01:30 PM VA-TOBACCO QUIT 15 YRS OR [facility] Mar 28, 2021 03:28 PM VA-TOBACCO FORMER USER [place] [facility] [facility] Mar 28, 2021 03:28 PM VA-TOBACCO QUIT 15 YRS OR MORE [facility] Dec 02, 2019 09:36 AM VA-TOBACCO NEVER USED [facility] Apr 23, 2005 10:19 AM QUIT TOBACCO USE IN PAST YEAR [facility] Advance Directives: All historical and current [...] 16, 2011 ADVANCE DIRECTIVE DISCUSSION MARGARITA TERRAZAS [place] Encounter Notes: All associated encounter notes This section contains the clinical notes associated to the Encounter. Date/Time Encounter Note(s) Provider Source Apr 02, 2024 02:20 PM PRIMARY CARE Circular E MESSAGING: LOCAL TITLE: PRIMARY CARE SECURE MESSAGING STANDARD TITLE: PRIMARY CARE SECURE MESSAGING DATE OF NOTE: APR 02, 2024@14:20 ENTRY DATE: APR 02, 2024@14:20:04 AUTHOR: DERIC FLORES COSIGNER: URGENCY: STATUS: COMPLETED ------Original Message -------- Sent: 04/02/2024 01:11 PM ET From: ANDREEA OVIEDO To: Sebas SEGURA_PRIMARY CARE_[facility] Subject: Test:Cardiac Cath Physician Report Excellent, we can't get the access to [facility] portal you are privy to. From now on I will keep you in the loop of any visits there. This is far less complicated for you to await a fax or hardcopy in much less time. It would appear I am headed for another replacement however. Have a good weekend. Andreea Oviedo /lisa/ DERIC FLORES LPN Signed: 04/02/2024 14:20 Receipt Acknowledged By: 04/02/2024 15:46 /lisa/ AISHA SANDERS, RN REGISTERED NURSE DERIC FLORES [facility]
--- OUTSIDE RECORDS SUMMARY | 2024-05-10 07:33 | XMS_ITS ---
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 Address [address] [place] [address] Care Team Providers Care Wind Energy Technician Name Role Phone CHITO SEGURA Primary [...] PART A Feb 16, 2018 PART A [id number] YENNY OVIEDO PATIENT MEDICARE (WNR) MEDICARE (M) PART B Feb 16, 2018 PART B [id number] YENNY OVIEDO PATIENT MEDICARE (WNR) MEDICARE (M) PART A Oct 17, 2006 PART A [id number] YENNY OVIEDO PATIENT FOR LIFE TFL* Apr 06, 2018 [id number] YENNY OVIEDO PATIENT Selected Encounter This section includes the information on record at [place] for the Encounter. Date/Time Encounter Type Encounter Description Reason Pro vider Source Feb 04, 2024 12:00 AM Outpatient Encounter EVENT (HISTORICAL) IHE Encounter Template Text not used by [place] Plan of Treatment: Future Appointments (+ 6 months) and Future Tests (+/- 45 days) The Plan of Treatment section includes future care activities for the patient from all [place] [facility]. This section includes future appointments and future [...] AMBULATORY - MEDICINE [facility] Feb 17, 2024 07:30 AM AMBULATORY - NONE [place] [facility] [place] [facility] Mar 16, 2024 09:30 AM AMBULATORY - NONE [place] [facility] [place] [facility] Mar 30, 2024 07:30 AM AMBULATORY - MEDICINE [place] [facility] Apr 06, 2024 09:00 AM AMBULATORY - MEDICINE [facility] Apr 12, 2024 08:00 AM AMBULATORY - MEDICINE [facility] Apr 12, 2024 11:00 AM AMBULATORY - MEDICINE [place] [facility] Apr 12, 2024 01:30 PM AMBULATORY - MEDICINE [place] [facility] Apr 30, 2024 01:40 PM AMBULATORY - NONE [place] [facility] [place] [facility] May 28, 2024 08:30 AM AMBULATORY - MEDICINE [place] [facility] May 31, 2024 11:00 AM AMBULATORY - MEDICINE [place] [facility] [place] [place] [facility] Feb 23, 2024 02:44 PM Reporting Lab: [address] [address] Performing Lab: [address] [address] CREATININE, Serum 0.84 mg/dL 0.50-1.40 eGFR(CKD-EPI 2020) >90 mL/min >60 Feb 27, 2024 07:43 AM [facility] CBC Specimen Type: BLOOD No comment entered. Ordering Provider: ELIEL SEGURA Report Released Date/Time: Feb 23, 2024 02:44 PM Reporting Lab: [address] [address] Performing Lab: [address] [address] WBC 6.44 10*3/uL 4.50-11.00 RBC 4.42 10*6/uL 4.23-5.66 HGB 13.1 g/dL 12.8-17 HCT 38.8 L 39.2-50.4 MCV 87.8 fL 82-99 MCHC 33.8 g/dL 30.8-35.1 PLT 116 10*3/uL L 140-360 RDW-CV 14.6 12.0-16.0 MCH 29.6 pg 26.2-32.6 Feb 27, 2024 07:43 AM [facility] PT & INR (COUMADIN) Specimen Type: PLASMA No comment entered. Ordering Provider: ELIEL SEGURA Report Released Date/Time: Feb 23, 2024 02:44 PM Reporting Lab: [address] [address] Performing Lab: [address] [address] INR 1.4 PROTIME 15.4 s H 10.0-13.1 Feb 27, 2024 07:43 AM [facility] LIVER FUNCTION Specimen Type: SERUM No comment entered. Ordering Provider: ELIEL SEGURA Report Released Date/Time: Feb 23, 2024 02:44 PM Reporting Lab: [facility] [address] [address] Performing Lab: [facility] [address] [address] PROTEIN,TOTAL 6.3 g/dL 6.0-8.3 ALBUMIN 3.5 g/dL 3.5-5.0 ALKALINE PHOSPHATASE 45 U/L 40-150 AST 19 U/L 5-34 ALT 23 U/L BILIRUBIN, TOTAL 0.6 mg/dL 0.2-1.2 Social History: Smoking Status (Most [...] 21, 2023 01:30 PM [facility]ACCO [facility] Tobacco Use History This section includes a history of the smoking, or tobacco-related health factors, that were collected on or before the date of the Encounter. The data comes from the [place] facility where the Encounter took place. Date/Time Smoking Status/Tobacco Use Comment F acility Jul 21, 2023 01:30 PM VA-TOBACCO QUIT 15 YRS OR MORE [place] [facility] Mar 28, 2021 03:28 PM VA-TOBACCO FORMER USER [place] [place] [facility] Mar 28, 2021 03:28 PM VA-TOBACCO QUIT 15 YRS OR MORE [place] [facility] [place] [facility] Dec 02, 2019 09:36 AM VA-TOBACCO NEVER USED [place] [place] [facility] Apr 23, 2005 10:19 AM QUIT TOBACCO USE IN PAST YEAR [facility] Advance Directives: All historical and [...] 16, 2011 ADVANCE DIRECTIVE DISCUSSION MARGARITA TERRAZAS [place] Encounter Notes: All associated encounter notes This section contains the clinical notes associated to the Encounter. Date/Time Encounter Note(s) Provider Source Feb 04, 2024 12:00 AM NONVA DIAGNOSTIC S [place] REPORT: LOCAL TITLE: NON-VA DIAGNOSTICS STANDARD TITLE: NONVA DIAGNOSTIC STUDY REPORT DATE OF NOTE: FEB 04, 2024 ENTRY DATE: APR 02, 2024@15:15:01 AUTHOR: MAGO WAN EXP COSIGNER: URGENCY: STATUS: COMPLETED VistA Imaging - Scanned Document SCANNED DOCUMENT SIGNATURE NOT REQUIRED Electronically Filed: 04/02/2024 by: MAGO WAN MASTIC FLOOR LAYER MAGO WAN [place] [facility]
--- OUTSIDE RECORDS SUMMARY | 2024-05-10 07:33 | XMS_ITS | Encounter Summary ---
Author Name [facility] ([place]) [facility] Address [address] [place] [address] Care Team Providers Care Livestock Agent Name Role Phone CHITO SEGURA Primary Care [...] PART A Feb 16, 2018 PART A [id number] YENNY OVIEDO ANDREW PATIENT MEDICARE (WNR) MEDICARE (M) PART B Feb 16, 2018 PART B [id number] YENNY OVIEDO ANDREW PATIENT MEDICARE (WNR) MEDICARE (M) PART A Oct 17, 2006 PART A [id number] YENNY OVIEDO PATIENT FOR LIFE TFL* Apr 06, 2018 [id number] YENNY OVIEDO PATIENT Selected Encounter This section includes the information on record at [place] for the Encounter. Date/Time Encounter Type Encounter Description Reason Provider Source Apr 12, 2024 08:00 AM OFFICE O/P EST LOW 20 MIN PODIATRY ICD-10-CM L60.3 Nail dystrophy JUVENAL ROSS [facility] Encounter Template Text not used by [place] Assessments - Encounter Diagnoses This section includes the primary and secondary diagnoses documented for the Encounter. Date/Time Primary/Secondary Diagnosis Diagnosis Name Provider Source Apr 12, 2024 08:20 AM PRIMARY Nail dystrophy JUVENAL ROSS Apr 12, 2024 08:20 AM SECONDARY Pain in left toe(s) JUVENAL ROSS [place] Apr 12, 2024 08:20 AM SECONDARY Pain in right toe(s) JUVENAL ROSS [place] Apr 12, 2024 08:20 AM SECONDARY Type 2 diabetes w diabetic peripheral angiopath w/o gangrene JUVENAL ROSS [place] Plan of Treatment: Future Appointments (+ 6 months) and Future Tests (+/- 45 days) The Plan of Treatment section includes future care activities for the patient from all [place] [facility]. This section includes future appointments and future orders which are active, pending or scheduled. Future Appointments This section includes appointments that were scheduled to occur 6 months from the date of the Encounter, up to a maximum of 20 appointments. The data comes from all [facility]. Appointment Date/Time Appointment Type Appointme nt Facility Name Apr 30, 2024 01:40 PM [facility] May 28, 2024 08:30 AM [facility] May 31, 2024 11:00 AM [facility] Jun 01, 2024 07:30 AM [facility] Jun 28, 2024 08:00 AM [facility] Aug 23, 2024 08:00 AM AMBULATORY - MEDICINE [facility] October 08, 2024 09:00 AM AMBULATORY - MEDICINE [facility] Active, Pending, and Scheduled Orders This section includes a listing of several types of active, pending, and scheduled orders, including clinic medications orders, diagnostic test orders, procedure orders and consult orders; where the start date of the order is 45 days before the date of the Encounter or 45 days after the date of theEncounter. The data comes from all [facility]. Test Date/Time Test Type Test Details Facility Name Apr 15, 2024 07:42 AM Consult Order COMMUNITY CARE-CARDIAC SURGERY Cons Clinical Data Analyst's Choice [facility] Social History: Smoking [...] 22, 2022 10:00 AM VA-TOBACCO FORMER USER [facility] Tobacco Use History This section includes a history of the smoking, or tobacco-related health factors, that were collected on or before the date of the Encounter. The data comes from the [place] facility where the Encounter took place. Date/Time Smoking Status/Tobacco Use Comment F acsophia Jul 22, 2022 10:00 AM VA-TOBACCO QUIT 15 YRS OR MORE [facility] Dec 02, 2018 09:23 AM VA-TOBACCO FORMER USER [facility] Dec 02, 2018 09:23 AM VA-TOBACCO QUIT 15 YRS OR MORE [facility] Apr 20, 2018 10:23 AM VA-TOBACCO FORMER USER [facility] Apr 20, 2018 10:23 AM VA-TOBACCO QUIT 15 YRS OR MORE [facility] Dec 16, 2016 08:40 AM QUIT TOBACCO USE > 7 YEARS AGO [facility] Jul 17, 2015 08:14 AM QUIT TOBACCO USE > 7 YEARS AGO quit many yrs ago [facility] Aug 04, 2009 08:22 AM QUIT TOBACCO USE > 7 YEARS AGO quit over ten years ago [facility] Dec 03, 2007 02:22 PM QUIT TOBACCO USE 1 -7 YEARS AGO [facility] May 21, 2007 08:03 AM QUIT TOBACCO USE 1 -7 YEARS AGO [facility] Jul 25, 2004 09:38 AM CURRENT SMOKER Smokes about 10 cigarettes/day, and trying to quit on his own [facility] Apr 27, 2004 01:32 PM LIFETIME NON-TOBACCO USER [facility] Advance Directives: All historical and current Section [...] 16, 2011 ADVANCE DIRECTIVE DISCUSSION MARGARITA TERRAZAS [facility] Encounter Notes: All associated encounter notes This section contains the clinical notes associated to the Encounter. Date/Time Encounter Note(s) Provider Source Apr 12, 2024 07:17 AM PODIATRY NOTE: LOCAL TITLE: PODIATRY NOTE STANDARD TITLE: PODIATRY NOTE DATE OF NOTE: APR 12, 2024@07:17 ENTRY DATE: APR 12, 2024@07:17:43 AUTHOR: JUVENAL ROSS EXP COSIGNER: URGENCY: STATUS: COMPLETED NOTE: HAS RECEIVED BOTH COVID VACCINE DOSES + 3 BOOSTERS AT [facility] LAST SEEN FOR TREATMENT: 02/16/2024 S: Pt. is a 69yo alert WDWN CAUC MALE who IS SEEN [...] *NOTE: A1c = 6.1 (LAST TAKEN: 12/2023) NAF=912RA RISK: 2 HEIGHT:249 lb [113.2 kg] (12/02/2019 [...] present physical-medical status. Protective sensation utilizing a [place] lOg monofilament is 10/10 bilateral. BIOMECHANICAL: Exam [...] due to the underlying medical conditions. RTC: (06/28 & 08/23@ 8AM) ) *REVIEWED HOME FOOT CARE FEET ARE IN EXCELLENT CONDITION AND I PROVIDED HIM WITH WRITTEN RECOMMENDATIONS FOR FOOT CARE TO BE REVIEWED AT HOME (FOOT CARE TIPS). *DISCUSSED NEW PROTOCOLS AND CALLED [facility] TODAY FOR RESCHEDULING I DISCUSSED THE FINDINGS & PLAN WITH PATIENT (UNCHANGED SINCE PREVIOUS VISIT) & PATIENT AGREES AND UNDERSTANDS PLAN & RECEIVED MIRROR DISCUSSED THE NEED TO REPLACE A HEART VALVE AFTER ONLY 7 YEARS AND IS WAITING TO HEAR ABOUT THE DATE FOR SURGERY. Medication Reconciliation: PERFORMED TODAY - SEE BELOW. RECENTLY PLACED ON ELIQUIS 5MG BID & LASIX 40MG ONCE DAILY Outpatient: Has the patient been taking medications as documented in the EMLR? YES: The patient has been taking medications as documented in the EMLR. Essential Medication List for Review used to complete this medication reconciliation. INCLUDED IN THIS LIST: Alphabetical list of active outpatient prescriptions dispensed from this [place] (local) and dispensed from another [place] or [facility] facility (remote) as well as inpatient [...] FACILITY ALLERGY/ADR -------- CLNCL/HLTH RAJESH REPT EFF [id number] TAMSULOSIN [facility] LISINOPRIL [...] [facility] TAMSULOSIN [facility] THIMEROSAL Med Recon Katarina (Tool #1) INCLUDED IN THIS LIST: Alphabetical list of active outpatient prescriptions dispensed from this DE (local) and dispensed from another [place] or [facility] facility (remote) as well as inpatient orders (local pending and active), local clinic medications, locally documented non-VA medications, and local prescriptions that have or been discontinued in the past 90 days. Non-VA Meds Last Documented On: September 29, 2023 NOTE The display of VA prescriptions dispensed from another [place] or [facility] facility (remote) is limited to active outpatient prescription entries matched to National Drug File at the originating site and may not include some items such as investigational drugs, compounds, etc. NOT INCLUDED IN THIS LIST: Medications self-entered by the patient into personal health records (i.e. [employer]) are NOT included in this list. Non-VA medications documented outside this DE, remote inpatient orders (regardless of status) and remote clinic medications are NOT included in this list. The patient and provider must always discuss medications the patient is taking, regardless of where the medication was dispensed or obtained. OUTPT ALBUTEROL 100/IPRATRO 20MCG 120D PO [facility] (Status = Active) INHALE 1 PUFF BY MOUTH FOUR TIMES DAILY NEEDED --FOR BREATHING Rx# [id number] Last Released: 02/13/24 Qty/Days Supply: Rx Expiration Date: 02/11/25 Refills Remainin Indication: FOR BRONCHOSPASM OUTPT AMIODARONE HCL 200MG TAB (Status = Discontinued) TAKE ONE TABLET BY MOUTH ONCE DAILY Rx# [id number] Last Released: 02/18/24 Qty/Days Supply: Rx Expiration Date: 02/05/25 Refills Remainin OUTPT APIXABAN 5MG TAB (Status = Active) TAKE ONE TABLET BY MOUTH EVERY 12 HOURS FOR PREVENTION OF BLOOD CLOTS Rx# [id number] Last Released: 03/06/24 Qty/Days Supply: 180 Rx Expiration Date: 02/18/25 Refills Remainin Indication: FOR PREVENTION OF BLOOD CLOTS OUTPT ATORVASTATIN CALCIUM 40MG TAB (Status = Active) TAKE ONE-HALF TABLET BY MOUTH EVERY EVENING FOR CHOLESTEROL Rx# [id number] Last Released: 03/12/24 Qty/Days Supply: Rx Expiration Date: 04/28/24 Refills Remainin Indication: FOR HIGH CHOLESTEROL OUTPT CEPHALEXIN 500MG CAP (Status = ) TAKE FOUR CAPSULES BY MOUTH ONE TIME ; TAKE ONE HOUR PRIOR TO DENTAL APPOINTMENT (8 CAPSULES COVERS 2 DENTAL APPOINTMENTS) Rx# [id number] Last Released: 02/21/24 Qty/Days Supply: 12/18 Rx Expiration Date: 03/20/24 Refills Remainin Indication: FOR INFECTION CAUSED BY BACTERIA Non-VA CHOLECALCIF 25MCG (D3-1,000UNIT) TAB TAKE ONE TABLET BY MOUTH ONCE DAILY Indication: FOR VITAMIN D DEFICIENCY OUTPT CYANOCOBALAMIN 1000MCG TAB (Status = Discontinued) TAKE ONE TABLET BY MOUTH ONCE DAILY Rx# [id number] Last Released: 12/30/23 Qty/Days Supply: Rx Expiration Date: 04/28/24 Refills Remainin Indication: FOR PREVENTION OF VITAMIN B12 DEFICIENCY OUTPT CYANOCOBALAMIN 1000MCG TAB (Status = Active) TAKE ONE TABLET BY MOUTH ONCE DAILY Rx# [id number] Last Released: 04/02/24 Qty/Days Supply: Rx Expiration Date: 01/22/25 Refills Remainin Indication: FOR PREVENTION OF VITAMIN B12 DEFICIENCY Non-VA DICLOFENAC 1% GEL (EQV-VOLTAREN) GEL,TOP APPLY TOPICALLY FOUR TIMES A DAY OUTPT DILTIAZEM (EQV-CARDIZEM) 120MG 24HR CAP (Status = Active) TAKE ONE CAPSULE BY MOUTH ONCE DAILY FOR HIGH BLOOD PRESSURE Rx# [id number] Last Released: 03/12/24 Qty/Days Supply: Rx Expiration Date: 06/08/24 Refills Remainin Indication: FOR HIGH BLOOD PRESSURE OUTPT DILTIAZEM (EQV-CARDIZEM) 180MG 24HR CAP (Status = Discontinued) TAKE ONE CAPSULE BY MOUTH ONCE DAILY Rx# [id number] Last Released: 11/12/23 Qty/Days Supply: Rx Expiration Date: 06/04/24 Refills Remainin OUTPT EPINEPHRINE (EQV-EPI-PEN) 0.3MG/0.3ML (Status = Active) INJECT DIRECTED INTRAMUSCULARLY NEEDED FOR LIFE THREATENING ALLERGIC REACTION Rx# [id number] Last Released: 01/26/24 Qty/Days Supply: Rx Expiration Date: 04/21/24 Refills Remainin Indication: FOR LIFE THREATENING ALLERGIC REACTION OUTPT FINASTERIDE 5MG TAB (Status = Discontinued) TAKE ONE TABLET BY MOUTH DAILY FOR PROSTATE Rx# [id number] Last Released: 12/27/23 Qty/Days Supply: Rx Expiration Date: 02/19/24 Refills Remainin OUTPT FINASTERIDE 5MG TAB (Status = Active/Suspended) TAKE ONE TABLET BY MOUTH DAILY FOR PROSTATE Rx# [id number] Last Released: 03/26/24 Qty/Days Supply: Rx Expiration Date: 01/22/25 Refills Remainin OUTPT FLUTICASONE PROP 50MCG 120D NASAL INHL (Status = Active) INSTILL 2 SPRAYS INTO EACH NOSTRIL ONCE DAILY NEEDED FOR NASAL IRRITATION/INFLAMMATION Rx# [id number] Last Released: 02/04/24 Qty/Days Supply: Rx Expiration Date: 07/21/24 Refills Remainin OUTPT KETOCONAZOLE 2% CREAM (Status = Active) APPLY A THIN LAYER TOPICALLY TWICE DAILY FOR ATHLETE'S FOOT Rx# [id number] Last Released: 02/21/24 Qty/Days Supply: Rx Expiration Date: 06/13/24 Refills Remainin Indication: FOR ATHLETE'S FOOT OUTPT METFORMIN HCL 750MG 24HR SA TAB (Status = Active) TAKE TWO TABLETS BY MOUTH EVERY EVENING Rx# [id number] Last Released: 04/10/24 Qty/Days Supply: Rx Expiration Date: 07/21/24 Refills Remainin Indication: FOR TYPE 2 DIABETES MELLITUS OUTPT METOPROLOL SUCCINATE 25MG SA TAB (Status = Discontinued) TAKE ONE TABLET BY MOUTH TWICE DAILY FOR HEART FAILURE Rx# [id number] Last Released: 12/30/23 Qty/Days Supply: Rx Expiration Date: 04/28/24 Refills Remainin Indication: FOR CHRONIC HEART FAILURE OUTPT METRONIDAZOLE 500MG TAB (Status = ) TAKE FOUR TABLETS BY MOUTH ONE TIME DENTAL PRE-MEDICATION (COVERS 2 APPOINTMENTS) Rx# [id number] Last Released: 02/19/24 Qty/Days Supply: 12/18 Rx Expiration Date: 03/18/24 Refills Remainin Indication: FOR INFECTION OUTPT MICONAZOLE NITRATE 2% TOP PWDR (Status = Active) APPLY SMALL AMOUNT TOPICALLY TWICE DAILY FOR ATHLETE'S FOOT Rx# [id number] Last Released: 11/26/23 Qty/Days Supply: Rx Expiration Date: 07/03/24 Refills Remainin Indication: FOR ATHLETE'S FOOT OUTPT MOMETASONE 200MCG/ACTUAT 120D ORAL INHL (Status = Discontinued) INHALE 2 PUFFS BY MOUTH TWICE DAILY FOR CONTROLLER MEDICATION FOR ASTHMA --RINSE MOUTH AFTER EACH USE Rx# [id number] Last Released: 12/30/23 Qty/Days Supply: Rx Expiration Date: 04/23/24 Refills Remainin Indication: FOR CONTROLLER MEDICATION FOR ASTHMA OUTPT MOMETASONE 200MCG/ACTUAT 120D ORAL INHL (Status = Active) INHALE 2 PUFFS BY MOUTH TWICE DAILY FOR CONTROLLER MEDICATION FOR ASTHMA --RINSE MOUTH AFTER EACH USE Rx# [id number] Last Released: 04/02/24 Qty/Days Supply: Rx Expiration Date: 01/22/25 Refills Remainin Indication: FOR CONTROLLER MEDICATION FOR ASTHMA OUTPT MONTELUKAST NA 10MG TAB (Status = Active) TAKE ONE TABLET BY MOUTH EVERY EVENING FOR CONTROLLER MEDICATION FOR ASTHMA Rx# [id number] Last Released: 03/12/24 Qty/Days Supply: Rx Expiration Date: 04/28/24 Refills Remainin Indication: FOR CONTROLLER MEDICATION FOR ASTHMA OUTPT OMEPRAZOLE 20MG EC CAP (Status = Active) TAKE TWO CAPSULES BY MOUTH DAILY FOR STOMACH ACID Rx# [id number] Last Released: 02/04/24 Qty/Days Supply: Rx Expiration Date: 07/21/24 Refills Remainin Non-VA OTHER CAP/TAB TAKE BUTALBITAL BY MOUTH ONCE DAILY NEEDED About twice a year for headaches. Non-VA SAW PALMETTO CAP/TAB TAKE BY MOUTH OUTPT SEMAGLUTIDE 1MG/0.75ML INJ PEN 3ML (Status = Active) INJECT 1MG SUBCUTANEOUSLY ONCE A WEEK FOR TYPE 2 DIABETES MELLITUS Rx# [id number] Last Released: 03/17/24 Qty/Days Supply: 06/15 Rx Expiration Date: 06/09/24 Refills Remainin Indication: FOR TYPE 2 DIABETES MELLITUS OUTPT SPIRONOLACTONE 25MG TAB (Status = Active) TAKE ONE-HALF TABLET BY MOUTH ONCE DAILY Rx# [id number] Last Released: 02/19/24 Qty/Days Supply: Rx Expiration Date: 02/05/25 Refills Remainin OUTPT TADALAFIL 5MG TAB (Status = Discontinued) TAKE ONE TABLET BY MOUTH ONCE DAILY FOR BPH Rx# [id number] Last Released: 02/02/24 Qty/Days Supply: Rx Expiration Date: 07/21/24 Refills Remainin Indication: FOR ERECTILE DYSFUNTION OUTPT TADALAFIL 5MG TAB (Status = Active) TAKE ONE TABLET BY MOUTH ONCE DAILY FOR BPH Rx# [id number] Last Released: 03/04/24 Qty/Days Supply: Rx Expiration Date: 02/21/25 Refills Remainin Indication: FOR ERECTILE DYSFUNTION OUTPT TERAZOSIN HCL 10MG CAP (Status = Active/Suspended) TAKE ONE CAPSULE BY MOUTH AT BEDTIME FOR BPH Rx# [id number] Last Released: 01/22/24 Qty/Days Supply: Rx Expiration Date: 07/21/24 Refills Remainin Non-VA TOLTERODINE TARTRATE 2MG SA CAP TAKE 1 CAPSULE BY MOUTH ONCE DAILY Non-VA medication not recommended by VA provider. OUTPT TRIAMCINOLONE ACETONIDE 0.1% CREAM (Status = Active) APPLY A THIN LAYER TOPICALLY TWICE DAILY FOR ITCHING Rx# [id number] Last Released: 10/29/23 Qty/Days Supply: Rx Expiration Date: 06/09/24 Refills Remainin Indication: FOR ITCHING OUTPT WATER STERILE FOR IRRIGATION (Status = Active) IRRIGATE MODERATE AMOUNT DIRECTED ONCE DAILY FOR C-PAP MACHINE Rx# [id number] Last Released: 03/17/24 Qty/Days Supply: 35304/60 Rx Expiration Date: 07/21/24 Refills Remainin SUPPLIES OUTPT ACCU-CHEK GUIDE (GLUCOSE) TEST STRIP (Status = Active) USE 1 STRIP TO TEST BLOOD SUGARS TWO TIMES A WEEK Rx# [id number] Last Released: 11/12/23 Qty/Days Supply: 50/180 Rx Expiration Date: 06/03/24 Refills Remainin Indication: DIABETES MELLITUS /es/ JUVENAL ROSS DPM [employer] Signed: 04/12/2024 08:20 JUVENAL ROSS [facility]
--- OUTSIDE RECORDS SUMMARY | 2024-05-10 07:33 | XMS_ITS | Encounter Summary ---
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 [place] Organization [facility] [place] Address [address] [place] [address] Care Team Providers Care Double Corner Cutter Name Role Phone CHITO SEGURA Primary [...] PART A Feb 16, 2018 PART A [id number] YENNY OVIEDO PATIENT MEDICARE (WNR) MEDICARE (M) PART B Feb 16, 2018 PART B [id number] YENNY OVIEDO ES PATIENT MEDICARE (WNR) MEDICARE (M) PART A Oct 17, 2006 PART A [id number] YENNY OVIEDO PATIENT FOR LIFE TFL* Apr 06, 2018 [id number] YENNY OVIEDO PATIENT Selected Encounter This section includes the information on record at [place] for the Encounter. Date/Time Encounter Type Encounter Description Reason Provider Source Apr 19, 2024 02:26 PM QNHP OL DIG ASSMT&MGMT 5-10 CLINICAL PHARMACY ICD-10-CM E11.8 Type 2 diabetes mellitus with unspecified complications [facility] Encounter Template Text not used by [place] Assessments - Encounter Diagnoses This section includes the primary and secondary diagnoses documented for the Encounter. Date/Time Primary/Secondary Diagnosis Diagnosis Name Provider Source Apr 19, 2024 02:31 PM PRIMARY Type 2 diabetes mellitus with unspecified complications [facility] Plan of Treatment: Future Appointments (+ 6 months) and Future Tests (+/- 45 days) The Plan of Treatment section includes future care activities for the patient from all [place] [facility]. This section includes future appointments and future orders which are active, pending or scheduled. Future Appointments This section includes appointments that were scheduled to occur 6 months from the date of the Encounter, up to a maximum of 20 appointments. The data comes from all [facility]. Appointment Date/Time Appointment Type Appointme nt Facility Name Apr 30, 2024 01:40 PM [facility] May 28, 2024 08:30 AM [facility] May 31, 2024 11:00 AM [facility] Jun 01, 2024 07:30 AM [facility] Jun 28, 2024 08:00 AM [facility] Aug 23, 2024 08:00 AM [facility] October 08, 2024 09:00 AM [facility] Active, Pending, and [...] of theEncounter. The data comes from all [facility]. Test Date/Time Test Type Test Details Facility Name Apr 15, 2024 07:42 AM Consult Order COMMUNITY CARE-CARDIAC SURGERY Cons [facility] Ped[facility] Advance Directives: All historical and current Section [...] 16, 2011 ADVANCE DIRECTIVE DISCUSSION MARGARITA TERRAZAS BLOOMERY Encounter Notes: All associated encounter notes This section contains the clinical notes associated to the Encounter. Date/Time Encounter Note(s) Provider Source Apr 19, 2024 02:26 PM PHARMACY CONSULT: LOCAL TITLE: CONSULT REPORT/PRIOR AUTH FACILITY PADR STANDARD TITLE: PHARMACY CONSULT DATE OF NOTE: APR 19, 2024@14:26 ENTRY DATE: APR 19, 2024@14:26:43 AUTHOR: ILA UP EXP COSIGNER: URGENCY: STATUS: COMPLETED The medical record has been reviewed with regard to this restricted drug request. Medication requested: SEMAGLUTIDE 1MG/0.75ML INJ PEN 3ML Medication indication: DM II Medical history relevant to this request: Pt is following with PACT CPP for management of DM. Pt is using metformin, empagliflozin (per PA-F request, pt with ADR to therapy). A1c is at goal. Pt with CVD and weight reduction with use of semaglutide. Pt approved for continued use. Pt with active empagliflozin nonVA but ADR to use per PA-F consult, please add ADR to cover sheet for empagliflozin if pt is no longer using. Thank you! The request is APPROVED - The patient previously responded to a non-formulary or non-preferred agent and serious risk is associated with a change the preferred formulary alternative(s) /lisa/ Ila Up, PharmD, [facility] Clinical Security Advisor Signed: 04/19/2024 14:31 IL[facility] UP [facility]
--- OUTSIDE RECORDS SUMMARY | 2024-05-10 07:33 | XMS_ITS | Encounter Summary ---
Author Name [facility] (MD) Organization [facility] Address [address] [place] [id number] Care Team Providers Care Breakdown Mill Operator Name Role Phone CHITO SEGURA Primary [...] PART A Feb 16, 2018 PART A [id number] YENNY OVIEDO ES PATIENT MEDICARE (WNR) MEDICARE (M) PART B Feb 16, 2018 PART B [id number] YENNY OVIEDO PATIENT MEDICARE (WNR) MEDICARE (M) PART A Oct 17, 2006 PART A [id number] YENNY OVIEDO PATIENT FOR LIFE TFL* Apr 06, 2018 [id number] YENNY OVIEDO PATIENT Selected Encounter This section includes the information on record at MD for the Encounter. Date/Time Encounter Type Encounter Description Reason Provider Source Apr 12, 2024 01:30 PM MTMS BY PHARM [facility] 15 MIN TELEPHONE PRIMARY CARE ICD-10-CM E11.8 Type 2 diabetes mellitus with unspecified complications EVELYNE SANCHEZ Ayah Encounter Template Text not used by MD Assessments - Encounter Diagnoses This section includes the primary and secondary diagnoses documented for the Encounter. Date/Time Primary/Secondary Diagnosis Diagnosis Name Provider Source Apr 12, 2024 01:30 PM PRIMARY Type 2 diabetes mellitus with unspecified complications EVELYNE SANCHEZ [facility] Plan of Treatment: Future Appointments (+ 6 months) and Future Tests (+/- 45 days) The Plan of Treatment section includes future care activities for the patient [facility] This section includes future appointments and future orders which are active, pending or scheduled. Future Appointments This section includes appointments that were scheduled to occur 6 months from the date of the Encounter, up to a maximum of 20 appointments. The data comes from all [facility]. Appointment Date/Time Appointment Type Appointme nt Facility Name Apr 30, 2024 01:40 PM [facility] May 28, 2024 08:30 AM [facility]ULATORY - MEDICINE [facility] [place] [facility] May 31, 2024 11:00 AM AMBULATORY - MEDICINE [facility] Jun 01, 2024 07:30 AM [facility] Jun 28, 2024 08:00 AM [facility] Aug 23, 2024 08:00 AM [facility] October 08, 2024 09:00 AM [facility]ICINE [facility] Active, Pending, and Scheduled Orders This section includes a listing of several types of active, pending, and scheduled orders, including clinic medications orders, diagnostic test orders, procedure orders and consult orders; where the start date of the order is 45 days before the date of the Encounter or 45 days after the date of theEncounter. The data comes from all [facility]. Test Date/Time Test Type Test Details Facility Name Apr 15, 2024 07:42 AM Consult Order COMMUNITY CARE-CARDIAC SURGERY Cons Mandrel Press [facility] Social History: Smoking Status (Most [...] 22, 2022 10:00 AM VA-TOBACCO FORMER USER [facility] Tobacco Use History This section includes a history of the smoking, or tobacco-related health factors, that were collected on or before the date of the Encounter. The data comes from the MD facility where the Encounter took place. Date/Time Smoking Status/Tobacco Use Comment Wilberto holbrook Jul 22, 2022 10:00 AM VA-TOBACCO QUIT 15 YRS OR MORE [facility] Dec 02, 2018 09:23 AM VA-TOBACCO FORMER USER [facility] Dec 02, 2018 09:23 AM VA-TOBACCO QUIT 15 YRS OR MORE [facility] Apr 20, 2018 10:23 AM VA-TOBACCO FORMER USER [facility] Apr 20, 2018 10:23 AM VA-TOBACCO QUIT 15 YRS OR MORE [facility] Dec 16, 2016 08:40 AM QUIT TOBACCO USE > 7 YEARS AGO [facility] Jul 17, 2015 08:14 AM QUIT TOBACCO USE > 7 YEARS AGO quit many yrs ago [place] Aug 04, 2009 08:22 AM QUIT TOBACCO USE > 7 YEARS AGO quit over ten years ago [facility] Dec 03, 2007 02:22 PM QUIT TOBACCO USE 1 -7 YEARS AGO [facility] May 21, 2007 08:03 AM QUIT TOBACCO USE 1 -7 YEARS AGO [facility] Jul 25, 2004 09:38 AM CURRENT SMOKER Smokes about 10 cigarettes/day, and trying to quit on his own [facility] Apr 27, 2004 01:32 PM LIFETIME NON-TOBACCO USER [facility] Advance Directives: All historical and current Section Date Range: From patient's date of to the date document was created. This section includes ALL of a patient's completed or amended MD Advance and Rescinded Directives. The entries below indicate that a directive exists for the patient, but an actual copy is not included with this document. The data comes from all [facility]. Date Advance Directives Provider Source Dec 16, 2011 ADVANCE DIRECTIVE DISCUSSION MARGARITA TERRAZAS [facility] Encounter Notes: All associated encounter notes This section contains the clinical notes associated to the Encounter. Date/Time Encounter Note(s) Provider Source Apr 12, 2024 01:30 PM PHARMACY OUTPATIEN T NOTE: LOCAL TITLE: PHARMACY CLINIC NOTE STANDARD TITLE: PHARMACY OUTPATIENT NOTE DATE OF NOTE: APR 12, 2024@13:30 ENTRY DATE: APR 12, 2024@13:30:25 AUTHOR: EVELYNE SANCHEZ EXP COSIGNER: URGENCY: STATUS: COMPLETED ANDREEA OVIEDO is a 69 yo MALE [facility]. HPI: S: sent secure message with recent cardiology notes requesting RX for empagliflozin 10mg daily; hx CHF. Last FTF visit in pharmacy clinic 04/06/24 (see notes for details). Contacted via telephone for f/u on request. Active problems - Computerized Problem List is the source for the followin. Long-term current use of anticoagulant 2. Atrial fibrillation (SCT 45748839) 3. Exposure to potentially hazardous substance (SCT 836585249080938) 4. SAS - Sleep apnea syndrome 5. COPD - Chronic Obstructive Pulmonary Disease (SCT 73214099) 6. Gastroesophageal reflux disease 7. Benign localized hyperplasia of prostate 8. Deficiency of vitamin D3 9. Thrombocytopenia 10. Diabetes mellitus type 2 (SNOMED CT 24133592) 11. Disorder of rotator cuff 12. Lumbar Radiculopathy 13. Diverticulitis, Colonic * 14. Gastroesophageal Reflux Disorder 15. Degenerative arthritis (SNOMED CT 633125612) 16. Mitral Valve Prolapse 17. Hyperlipidaemia (SNOMED CT 69424027) 18. Benign essential hypertension (SNOMED CT 9885887) 19. Obesity 20. Posttraumatic Stress Disorder 21. [...] ACTIVE TWICE DAILY FOR ATHLETE'S FOOT 11) MICONAZOLE NITRATE 2% TOP PWDR APPLY SMALL AMOUNT ACTIVE TOPICALLY TWICE DAILY FOR ATHLETE'S FOOT 12) MOMETASONE 200MCG/ACTUAT 120D ORAL INHL INHALE 2 ACTIVE PUFFS BY MOUTH TWICE DAILY FOR CONTROLLER MEDICATION FOR ASTHMA --RINSE MOUTH AFTER EACH USE 13) MONTELUKAST NA 10MG TAB TAKE ONE TABLET BY MOUTH ACTIVE EVERY EVENING FOR CONTROLLER MEDICATION FOR ASTHMA 14) OMEPRAZOLE 20MG EC CAP TAKE TWO CAPSULES BY MOUTH ACTIVE (S) DAILY FOR STOMACH ACID 15) SEMAGLUTIDE 1MG/0.75ML INJ PEN 3ML INJECT 1MG ACTIVE SUBCUTANEOUSLY ONCE A WEEK FOR TYPE 2 DIABETES MELLITUS 16) SPIRONOLACTONE 25MG TAB TAKE ONE-HALF TABLET BY MOUTH ACTIVE ONCE DAILY 17) TADALAFIL 5MG TAB TAKE ONE TABLET BY MOUTH ONCE DAILY ACTIVE (S) FOR BPH 18) TERAZOSIN HCL 10MG CAP TAKE ONE CAPSULE BY MOUTH AT ACTIVE (S) BEDTIME FOR BPH 19) TRIAMCINOLONE ACETONIDE 0.1% CREAM APPLY A THIN LAYER ACTIVE TOPICALLY TWICE DAILY FOR ITCHING 20) WATER STERILE FOR IRRIGATION IRRIGATE MODERATE AMOUNT ACTIVE DIRECTED ONCE DAILY FOR C-PAP MACHINE Pending Outpatient Medications Status 1) EMPAGLIFLOZIN 25MG TAB TAKE ONE-HALF TABLET BY MOUTH PENDING ONCE DAILY 2) METFORMIN HCL 750MG 24HR SA TAB TAKE ONE TABLET BY PENDING MOUTH EVERY EVENING 3) TABLET CUTTER (PILL SPLITTER) USE CUTTER DIRECTED PENDING ONCE DAILY TO SPLIT TABLETS Active Non-VA Medications Status 1) Non-VA CHOLECALCIF 25MCG (D3-1,000UNIT) TAB 25MCG BY ACTIVE MOUTH ONCE DAILY 2) Non-VA DICLOFENAC 1% GEL (EQV-VOLTAREN) GEL,TOP ACTIVE TOPICALLY 3) Non-VA OTHER CAP/TAB BUTALBITAL BY MOUTH ONCE DAILY ACTIVE NEEDED 4) Non-VA SAW PALMETTO CAP/TAB BY MOUTH ACTIVE 5) Non-VA TOLTERODINE TARTRATE 2MG SA CAP 2MG BY MOUTH ACTIVE ONCE DAILY Date Range: 02/07/2024 - 04/06/2024 bG values are displayed in mg/dL # of tests 6 Average 134 SD 37 Highest 207 Lowest 105 Avg tests/day 0.1 # HI 0 # LO 0 <70 0.0% 70-180 83.3% >180 16.7% Hypos(<69) 0 Date Range: 02/07/2024 - 04/06/2024 bG values are displayed in mg/dL 00:00- 05:30- 08:00- 11:00- 12:30- 17:00- 18:30- 21:30- 05:30 08:00 11:00 12:30 17:00 18:30 21:30 00:00 02/15/2024 207 02/23/2024 132 03/21/2024 117 03/28/2024 105 Melonie 04/01/2024 120 04/02/2024 120 Pertinent Labs: HEMOGLOBIN A1C TREND Collection DT Spec HGBA1c 01/05/2024 07:32 BLOOD 6.1 H 07/17/2023 07:35 BLOOD 6.5 H 04/29/2023 07:36 BLOOD 7.6 H 02/04/2023 08:03 BLOOD 9.1 H 09/13/2022 08:49 BLOOD 8.6 H LIPID PANEL TREND Collection DT Spec CHOL HDL CHO/HDL LDL-d LDL-c TRIG 01/05/2024 07:32 SERUM 116 39 L 3.0 62 73 07/17/2023 07:35 SERUM 118 39 L 3.0 58 107 04/29/2023 07:36 SERUM 119 42 2.8 53 121 02/04/2023 08:03 SERUM 129 40 3.2 60 147 09/13/2022 08:49 SERUM 130 40 3.3 56 170 H CREATININE-EGFR 02/27/24 07:43 0.84 01/05/24 07:32 0.68 07/17/23 07:35 0.69 A/P: Discussed [facility] preferred dosing of empagliflozin 12.5mg once daily. MOA, potential ADRs, dosing and administration reviewed. Will mail RX along with tablet cutter. Pt's electronic operator also recommended reduction to metformin from metformin SA 1500mg daily to 750mg daily. Given A1c and BG at goal, will proceed with this. Encouraged to continue with LSMs. Contact clinic if BG trending <100mg/dL. F/U: 6 weeks to review labwork (SCr/eGFR; anticipate BMP will be ordered for PCP visit); September 2024 for FTF visit as previously scheduled. Time Spent: 15 minutes PBM PharmD Pharmacotherapy Rem V12: PHARMACIST INTERVENTIONS: TYPE 2 DIABETES MELLITUS Medication Intervention(s) Initiate new medication Medication reconciliation (changes to active VA and non-VA medication lists to reconcile differences) Changes to medication lists made Update dose, frequency, duration and/or dosage form of medication Add or renew medication /es/ Evelyne Sanchez PharmD Clinical Pharmacy Practitioner Signed: 04/12/2024 13:34 EVELYNE SANCHEZFIELD
--- OUTSIDE RECORDS SUMMARY | 2024-05-10 07:33 | XMS_ITS | Encounter Summary ---
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 Organization [facility] Address [address] [place] [address] Care Team Providers Care Box Car Loader Name Role Phone CHITO MEDRANO Primary Care [...] PART A Feb 16, 2018 PART A [id number] YENNY OVIEDO PATIENT MEDICARE (WNR) MEDICARE (M) PART B Feb 16, 2018 PART B [id number] YENNY OVIEDO ES PATIENT MEDICARE (WNR) MEDICARE (M) PART A Oct 17, 2006 PART A [id number] [facility] [place] [phone] YENNY OVIEDO PATIENT FOR LIFE TFL* Apr 06, 2018 [id number] YENNY OVIEDO PATIENT Selected Encounter This section includes the information on record at [place] for the Encounter. Date/Time Encounter Type Encounter Description Reason Provider Source Apr 09, 2024 08:07 AM Outpatient Encounter PRIMARY CARE/MEDICINE BEVERLY FLORES IHE Encounter Template Text not used by [place] Plan of Treatment: Future Appointments (+ 6 months) and Future Tests (+/- 45 days) The Plan of Treatment section includes future care activities for the patient from all [place] [facility] [place] This section includes future appointments and future orders which are active, pending or scheduled. Future Appointments This section includes appointments that were scheduled to occur 6 months from the date of the Encounter, up to a maximum of 20 appointments. The data comes from all [facility]. Appointment Date/Time Appointment Type Appointme nt Facility Name Apr 12, 2024 08:00 AM [facility] Apr 12, 2024 11:00 AM AMBULATORY - MEDICINE [place] [facility] [place] [facility] Apr 12, 2024 01:30 PM AMBULATORY - MEDICINE [place] [facility] [place] [facility] Apr 30, 2024 01:40 PM AMBULATORY - NONE [place] [facility] [place] [facility] May 28, 2024 08:30 AM AMBULATORY - MEDICINE [place] [facility] [place] [facility] May 31, 2024 11:00 AM AMBULATORY - MEDICINE [place] [facility] [place] [facility] Jun 01, 2024 07:30 AM AMBULATORY - NONE [facility] [place] [place] [facility] Jun 28, 2024 08:00 AM [facility] Aug 23, 2024 08:00 AM [facility] Active, Pending, and Scheduled Orders This section includes a listing of several types of active, pending, and scheduled orders, including clinic medications orders, diagnostic test orders, procedure orders and consult orders; where the start date of the order is 45 days before the date of the Encounter or 45 days after the date of theEncounter. The data comes from all [facility]. Test Date/Time Test Type Test Details Facility Name Apr 15, 2024 07:42 AM Consult Order COMMUNITY CARE-CARDIAC SURGERY Cons [employer] [facility] [facility] [place] [facility] [place] [facility] Social History: [...] PM VA-TOBACCO QUIT 15 YRS OR MORE [facility] Tobacco Use History This section includes a history of the smoking, or tobacco-related health factors, that were collected on or before the date of the Encounter. The data comes from the [place] facility where the Encounter took place. Date/Time Smoking Status/Tobacco Use Comment Wilberto holbrook Jul 21, 2023 01:30 PM VA-TOBACCO QUIT [facility] YRS [facility] Mar 28, 2021 03:28 PM VA-TOBACCO FORMER USER [place] [facility] [place] [facility] Mar 28, 2021 03:28 PM VA-TOBACCO QUIT 15 YRS OR MORE [facility] Dec 02, 2019 09:36 AM VA-TOBACCO NEVER USED [facility] Apr 23, 2005 10:19 AM QUIT TOBACCO USE IN PAST YEAR [facility] Advance Directives: All historical and current [...] 16, 2011 ADVANCE DIRECTIVE DISCUSSION MARGARITA TERRAZAS [place] Encounter Notes: All associated encounter notes This section contains the clinical notes associated to the Encounter. Date/Time Encounter Note(s) Provider Source Apr 13, 2024 02:10 PM ADDENDUM: LOCAL TITLE: Addendum STANDARD TITLE: ADDENDUM DATE OF NOTE: APR 13, 2024@14:10:38 ENTRY DATE: APR 13, 2024@14:10:39 AUTHOR: SUHAIL MATAMOROS EXP COSIGNER: URGENCY: STATUS: COMPLETED Maria Esther from [facility] called back. She states that Manson needs to see cardiac surgery at [facility] for a TAVR workup. If PCP in agreement, please enter new cardiology consult to start this process with [facility]. [facility] [address], [address] [place] [address] ([place]) [phone] ([place]) Tax ID: [id number] Maria Esther also states that Manson called [facility] cardiology this morning to discuss his prescriptions. She states that was told the plan is to cut the Jardiance 25mg tablet in half to make a 12.5mg dose but the recommended dose for CHF is 10mg. She states that Dr. Fernando would recommend changing to an alternate drug like Farxiga if unable to be on Jardiance 10mg. Elen the nurse at [facility] cardiology can be reached tomorrow 04/14 with questions or for further discussion. Maria Esther states she is off tomorrow. P: [phone] /es/ SUHAIL [facility] ELOINA RN SRAVAN Signed: 04/13/2024 14:18 Receipt Acknowledged By: 04/13/2024 14:31 /es/ Evelyne Sanchez, PharmD Clinical Pharmacy Practitioner * AWAITING SIGNATURE * CHITO MEDRANO F ====== --- Original Document --- 04/09/24 PRIMARY CARE SECURE MESSAGING: ------Original Message ------- Sent: 04/09/2024 06:11 AM ET From: ANDREEA OVIEDO To: Sebas MEDRANO_PRIMARY CARE_[facility] Subject: General:Records sent, Lasix and Current status In the discharge record from [facility] I last sent it is noted that I must now continue with 40mg Lasix. Please let me know if you want Dr. Fernando to write a script for this or is the d/c summary enough for you to order this for me? I saw Dr. Fernando yesterday and he provided me a script for Jardiance and I am faxing this to you. Evelyne Sanchez of the [place] suggested we ask Dr. Fernando about this and we notified her, but do not have her fax number. We're awaiting Dr. Fernando's notes from the visit yesterday to send them to you, hopefully today. 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 He is calling Dr. Isaiah Guerrero at [facility] who did the first replacement for the referral. If not available he mentioned a Dr. Pina. Edwar Oviedo /lisa/ DERIC FLORES LPN Signed: 04/09/2024 08:07 Receipt Acknowledged By: * AWAITING SIGNATURE * CHITO MEDRANO 04/09/2024 ADDENDUM STATUS: COMPLETED As above, I will review faxes and probably write the 40 of lasix he mentions. I will add Evelyne Sanchez for thoughts about the Jardiance I will add Tacho Matamoros to ask for thoughts about consults. We probably need to write him for vascular surgery where Dr Guerrero works? And does he need a fresh cardiology consult as well? /lisa/ Chtio Medrano PA-C STAFF PHYSICIAN MODERN LANGUAGES PROFESSOR Signed: 04/09/2024 08:31 Receipt Acknowledged By: 04/13/2024 11:22 /lisa/ SUHAIL MATAMOROS [facility] BSN RN SRAVAN 04/09/2024 09:13 /lisa/ Evelyne Sanchez PharmD Clinical Pharmacy Practitioner 04/09/2024 ADDENDUM STATUS: COMPLETED Spoke with who will send database report writer cardiology records and notes when available. Will order empagliflozin from [place] after reviewing. /lisa/ Evelyne Sanchez PharmD Clinical Pharmacy Practitioner Signed: 04/09/2024 09:17 04/11/2024 ADDENDUM STATUS: COMPLETED CC Cardiology current until july, per Tacho's comments on my December consult, which was cancelled. I will ask her to contact cardiology for current RXs? /mumtaz Medrano PA-C STAFF PHYSICIAN MODERN LANGUAGES PROFESSOR Signed: 04/11/2024 10:17 Receipt Acknowledged By: 04/13/2024 11:22 /lisa/ SUHAIL DUVALL RN SRAVAN 04/13/2024 ADDENDUM STATUS: COMPLETED I left a message for missionary coordinator Betina at [facility] to discuss the plan. P:[phone] F: [phone] I also left a message for Dr. Fernando's medical dermatologist Ember. P:[phone] I will get more information about the follow up plan and what consult is needed for Dr. Guerrero at [facility]. Current cardiology consult for [facility] is valid until 07/2024 and would cover prescriptions written by [facility] providers And Dr. Fernando if needed. Thank you /lisa/ SUHAIL DUVALL RN SRAVAN Signed: 04/13/2024 11:35 04/13/2024 ADDENDUM STATUS: UNSIGNED You may not VIEW this UNSIGNED Addendum. SUHAIL MATAMOROS [place] [facility] [place] [facility] Apr 11, 2024 10:16 AM ADDENDUM: LOCAL TITLE: Addendum STANDARD TITLE: ADDENDUM DATE OF NOTE: APR 11, 2024@10:16:04 ENTRY DATE: APR 11, 2024@10:16:05 AUTHOR: CHITO MEDRANO: URGENCY: STATUS: COMPLETED CC Cardiology current until july, per Tacho's comments on my December consult, which was cancelled. I will ask her to contact cardiology for current RXs? /lisa/ Chito Medrano PA-C STAFF PHYSICIAN MODERN LANGUAGES PROFESSOR Signed: 04/11/2024 10:17 Receipt Acknowledged By: 04/13/2024 11:22 /lisa/ SUHAIL DUVALL RN SRAVAN ====== --- Original Document --- 04/09/24 PRIMARY CARE SECURE MESSAGING: ------Original Message ------- Sent: 04/09/2024 06:11 AM ET From: ANDREEA OVIEDO To: Sebas MEDRANO_PRIMARY CARE_[facility] Subject: General:Records sent, Lasix and Current status In the discharge record from [facility] I last sent it is noted that I must now continue with 40mg Lasix. Please let me know if you want Dr. Fernando to write a script for this or is the d/c summary enough for you to order this for me? I saw Dr. Fernando yesterday and he provided me a script for Jardiance and I am faxing this to you. Evelyne Sanchez of the [place] suggested we ask Dr. Fernando about this and we notified her, but do not have her fax number. We're awaiting Dr. Fernando's notes from the visit yesterday to send them to you, hopefully today. 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 He is calling Dr. Isaiah Guerrero at [facility] who did the first replacement for the referral. If not available he mentioned a Dr. Pina. Edwar Oviedo /lisa/ DERIC FLORES LPN Signed: 04/09/2024 08:07 Receipt Acknowledged By: * AWAITING SIGNATURE * CHITO MEDRANO 04/09/2024 ADDENDUM STATUS: COMPLETED As above, I will review faxes and probably write the 40 of lasix he mentions. I will add Evelyne Sanchez for thoughts about the Jardiance I will add Tacho Matamoros to ask for thoughts about consults. We probably need to write him for vascular surgery where Dr Guerrero works? And does he need a fresh cardiology consult as well? /lisa/ Chito Medrano PA-C STAFF PHYSICIAN MODERN LANGUAGES PROFESSOR Signed: 04/09/2024 08:31 Receipt Acknowledged By: 04/13/2024 11:22 /es/ SUHAIL MATAMOROS [facility] BSN RN SRAVAN 04/09/2024 09:13 /lisa/ Evelyne Sanchez, PharmD Clinical Pharmacy Practitioner 04/09/2024 ADDENDUM STATUS: COMPLETED Spoke with Manson who will send database report writer cardiology records and notes when available. Will order empagliflozin from [place] after reviewing. /lisa/ Evelyne Sanchez PharmD Clinical Pharmacy Practitioner Signed: 04/09/2024 09:17 CHITO MEDRANO [facility] [place] [facility] Apr 09, 2024 08:28 AM ADDENDUM: LOCAL TITLE: Addendum STANDARD TITLE: ADDENDUM DATE OF NOTE: APR 09, 2024@08:28:56 ENTRY DATE: APR 09, 2024@08:28:57 AUTHOR: CHITO MEDRANO EXP COSIGNER: URGENCY: STATUS: COMPLETED As above, I will review faxes and probably write the 40 of lasix he mentions. I will add Evelyne Sanchez for thoughts about the Jardiance I will add Tacho Matamoros to ask for thoughts about consults. We probably need to write him for vascular surgery where Dr Guerrero works? And does he need a fresh cardiology consult as well? /lisa/ Chito Medrano PA-C STAFF PHYSICIAN MODERN LANGUAGES PROFESSOR Signed: 04/09/2024 08:31 Receipt Acknowledged By: 04/13/2024 11:22 /lisa/ SUHAIL MATAMOROS [facility] BSN RN SRAVAN 04/09/2024 09:13 /lisa/ Evelyne Sanchez PharmD Clinical Pharmacy Practitioner ====== --- Original Document --- 04/09/24 PRIMARY CARE SECURE MESSAGING: ------Original Message ------- Sent: 04/09/2024 06:11 AM ET From: ANDREEA OVIEDO To: Sebas MEDRANO_PRIMARY CARE_[facility] Subject: General:Records sent, Lasix and Current status In the discharge record from [facility] I last sent it is noted that I must now continue with 40mg Lasix. Please let me know if you want Dr. Fernando to write a script for this or is the d/c summary enough for you to order this for me? I saw Dr. Fernando yesterday and he provided me a script for Jardiance and I am faxing this to you. Evelyne Sanchez of the [place] suggested we ask Dr. Fernando about this and we notified her, but do not have her fax number. We're awaiting Dr. Fernando's notes from the visit yesterday to send them to you, hopefully today. 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 He is calling Dr. sIaiah Guerrero at [facility] who did the first replacement for the referral. If not available he mentioned a Dr. Pina. Edwar Oviedo /lisa/ DERIC FLORES LPN Signed: 04/09/2024 08:07 Receipt Acknowledged By: * AWAITING SIGNATURE * CHITO MEDRANO 04/09/2024 ADDENDUM STATUS: COMPLETED Spoke with who will send database report writer cardiology records and notes when available. Will order empagliflozin from [place] after reviewing. /lisa/ Evelyne Sanchez, PharmRosy Clinical Pharmacy Practitioner Signed: 04/09/2024 09:17 04/11/2024 ADDENDUM STATUS: COMPLETED CC Cardiology current until july, per Tacho's comments on my December consult, which was cancelled. I will ask her to contact cardiology for current RXs? /lisa/ Chito Medrano PA-C STAFF PHYSICIAN MODERN LANGUAGES PROFESSOR Signed: 04/11/2024 10:17 Receipt Acknowledged By: * AWAITING SIGNATURE * SUHAIL MATAMOROS WILLIAM F [facility] [place] [facility] Apr 09, 2024 08:07 AM PRIMARY CARE SECURE MESSAGING: LOCAL TITLE: PRIMARY CARE SECURE MESSAGING STANDARD TITLE: PRIMARY CARE SECURE MESSAGING DATE OF NOTE: APR 09, 2024@08:07 ENTRY DATE: APR 09, 2024@08:07:15 AUTHOR: DERIC FLORES EXP COSIGNER: URGENCY: STATUS: COMPLETED PRIMARY CARE SECURE MESSAGING Has ADDENDA ------Original Message ------- Sent: 04/09/2024 06:11 AM ET From: ANDREEA OVIEDO To: Sebas MEDRANO_PRIMARY CARE_[facility] Subject: General:Records sent, Lasix and Current status In the discharge record from [facility] I last sent it is noted that I must now continue with 40mg Lasix. Please let me know if you want Dr. Fernando to write a script for this or is the d/c summary enough for you to order this for me? I saw Dr. Fernando yesterday and he provided me a script for Jardiance and I am faxing this to you. Evelyne Sanchez of the [place] suggested we ask Dr. Fernando about this and we notified her, but do not have her fax number. We're awaiting Dr. Fernando's notes from the visit yesterday to send them to you, hopefully today. 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 He is calling Dr. Isaiah Guerrero at [facility] who did the first replacement for the referral. If not available he mentioned a Dr. Pina. Edwar Oviedo /lisa/ DERIC FLORES LPN Signed: 04/09/2024 08:07 Receipt Acknowledged By: 04/15/2024 07:35 /lisa/ Chito Medrano PA-C STAFF PHYSICIAN MODERN LANGUAGES PROFESSOR 04/09/2024 ADDENDUM STATUS: COMPLETED As above, I will review faxes and probably write the 40 of lasix he mentions. I will add Evelyne Sanchez for thoughts about the Jardiance I will add Tacho Matamoros to ask for thoughts about consults. We probably need to write him for vascular surgery where Dr Guerrero works? And does he need a fresh cardiology consult as well? /lisa/ Chito Medrano PA-C STAFF PHYSICIAN MODERN LANGUAGES PROFESSOR Signed: 04/09/2024 08:31 Receipt Acknowledged By: 04/13/2024 11:22 /lisa/ SUHAIL MATAMOROS [facility] BSN RN SRAVAN 04/09/2024 09:13 /es/ Evelyne Sanchez PharmD Clinical Pharmacy Practitioner 04/09/2024 ADDENDUM STATUS: COMPLETED Spoke with Manson who will send database report writer cardiology records and notes when available. Will order empagliflozin from [place] after reviewing. /lisa/ Evelyne Sanchez PharmD Clinical Pharmacy Practitioner Signed: 04/09/2024 09:17 04/11/2024 ADDENDUM STATUS: COMPLETED CC Cardiology current until july, per Tacho's comments on my December consult, which was cancelled. I will ask her to contact cardiology for current RXs? /es/ Chito Medrano PA-C STAFF PHYSICIAN MODERN LANGUAGES PROFESSOR Signed: 04/11/2024 10:17 Receipt Acknowledged By: 04/13/2024 11:22 /es/ SUHAIL MATAMOROS [facility] Ning DUVALL RN SRAVAN 04/13/2024 ADDENDUM STATUS: COMPLETED I left a message for missionary coordinator Betina at [facility] to discuss the plan. P:[phone] F: [phone] I also left a message for Dr. Fernando's medical dermatologist Ember. P:[phone] I will get more information about the follow up plan and what consult is needed for Dr. Guerrero at [facility]. Current cardiology consult for [facility] is valid until 07/2024 and would cover prescriptions written by [facility] providers And Dr. Fernando if needed. Thank you /lisa/ SUHAIL MATAMOROS [facility] Ning DUVALL RN SRAVAN Signed: 04/13/2024 11:35 04/13/2024 ADDENDUM STATUS: COMPLETED Maria Esther from [facility] called back. She states that needs to see cardiac surgery at [facility] for a TAVR workup. If PCP in agreement, please enter new cardiology consult to start this process with [facility]. [facility] [address] [place] [address], [address] [place] [address] ([place]) [phone] ([place]) Tax ID: [id number] Maria Esther also states that called [facility] cardiology this morning to discuss his prescriptions. She states that Manson was told the plan is to cut the Jardiance 25mg tablet in half to make a 12.5mg dose but the recommended dose for CHF is 10mg. She states that Dr. Fernando would recommend changing to an alternate drug like Farxiga if unable to be on Jardiance 10mg. Elen the nurse at [facility] cardiology can be reached tomorrow 04/14 with questions or for further discussion. Maria Esther states she is off tomorrow. P: [phone] /lisa/ SUHAIL [facility] BSN RN SRAVAN Signed: 04/13/2024 14:18 Receipt Acknowledged By: 04/13/2024 14:31 /lisa/ Evelyne Sanchez PharmD Clinical Pharmacy Practitioner * AWAITING SIGNATURE * CHITO MEDRANO 04/13/2024 ADDENDUM STATUS: COMPLETED Discussed with patient that [place] national cost saving initiative was previously to utilize empagliflozin 12.5mg dose instead of 10mg. He states he is filling this non-[place] and will continue to do so unless furhter changes advised. /lisa/ Evelyne Sanchez PharmD Clinical Pharmacy Practitioner Signed: 04/13/2024 14:32 [facility] FL[facility]ES [facility]
--- OUTSIDE RECORDS SUMMARY | 2024-05-10 07:33 | XMS_ITS | Encounter Summary ---
Author Name Department of [place] Organization Department of [facility] Affairs [place] Address [address] [place] [id number] Care Team Providers Care Seam Hammerer Name Role Phone CHITO SEGURA Primary Care [...] PART A Feb 16, 2018 PART A [id number] [phone] [id number] YENNY OVIEDO ANDREW PATIENT MEDICARE (WNR) MEDICARE (M) PART B Feb 16, 2018 PART B [id number] [phone] [id number] YENNY OVIEDO ANDREW PATIENT MEDICARE (WNR) MEDICARE (M) PART A Oct 17, 2006 PART A [id number] YENNY OVIEDO PATIENT FOR LIFE TFL* Apr 06, 2018 [id number] YENNY OVIEDO PATIENT Selected Encounter This section includes the information on record at [place] for the Encounter. Date/Time Encounter Type Encounter Description Reason Provider Source Apr 06, 2024 09:00 AM MTMS BY PHARM ADDL 15 MIN CLINICAL PHARMACY ICD-10-CM E11.8 Type 2 diabetes mellitus with unspecified complications EVELYNE SANCHEZ Ayah Encounter Template Text not used by [place] Assessments - Encounter Diagnoses This section includes the primary and secondary diagnoses documented for the Encounter. Date/Time Primary/Secondary Diagnosis Diagnosis Name Provider Source Apr 06, 2024 09:28 AM PRIMARY Type 2 diabetes mellitus with unspecified complications EVELYNE SANCHEZ [place] Plan of Treatment: Future Appointments (+ 6 months) and Future Tests (+/- 45 days) The Plan of Treatment section includes future care activities for the patient from all [place] [facility]. This section includes future appointments and future orders which are active, pending or scheduled. Future Appointments This section includes appointments that were scheduled to occur 6 months from the date of the Encounter, up to a maximum of 20 appointments. The data comes from all [facility] [address]. Appointment Date/Time Appointment Type Appointme nt Facility Name Apr 12, 2024 08:00 AM AMBULATORY - MEDICINE [facility] Apr 12, 2024 11:00 AM AMBULATORY - MEDICINE [place] [facility] [place] [facility] Apr 12, 2024 01:30 PM AMBULATORY - MEDICINE IN [facility] [facility] Apr 30, 2024 01:40 PM AMBULATORY - NONE IN [facility] [place] [facility] May 28, 2024 08:30 AM AMBULATORY - MEDICINE IN [facility] [place] [facility] May 31, 2024 11:00 AM AMBULATORY - MEDICINE IN [facility] [place] [facility] Jun 01, 2024 07:30 AM AMBULATORY NONE [place] [facility] [place] [facility] Jun 28, 2024 08:00 AM AMBULATORY - MEDICINE [facility] Aug 23, 2024 08:00 AM [facility] Active, Pending, and Scheduled Orders This [...] comes from all [facility] [address]. Test Date/Time Test Type Test Details Facility Name Apr 15, 2024 07:42 AM Consult Order COMMUNITY CARE-CARDIAC SURGERY Cons Braiding Machine Tender's Choice [facility] [place] [facility] Vital Signs: All taken on the encounter date This section contains inpatient and outpatient Vital Signs collected on the date of the Encounter. Date/Time Temperature Pulse Blood Pressure Respiratory Rate SP02 Pain Height Weight Body Mass Index Source Apr 06, 2024 08:58 AM 196 28 [facility] [place] Social History: Smoking Status (Most current) and [...] 22, 2022 10:00 AM VA-TOBACCO FORMER USER [place] Tobacco Use History This section includes a history of the smoking, or tobacco-related health factors, that were collected on or before the date of the Encounter. The data comes from the [place] facility where the Encounter took place. Date/Time Smoking Status/Tobacco Use Comment F acility Jul 22, 2022 10:00 AM VA-TOBACCO QUIT 15 YRS OR MORE [place] Dec 02, 2018 09:23 AM VA-TOBACCO FORMER USER [place] Dec 02, 2018 09:23 AM VA-TOBACCO QUIT 15 YRS OR MORE [place] Apr 20, 2018 10:23 AM VA-TOBACCO FORMER USER [place] Apr 20, 2018 10:23 AM VA-TOBACCO QUIT 15 YRS OR MORE [place] Dec 16, 2016 08:40 AM QUIT TOBACCO USE > 7 YEARS AGO [place] Jul 17, 2015 08:14 AM QUIT TOBACCO USE > 7 YEARS AGO quit many yrs ago [place] Aug 04, 2009 08:22 AM QUIT TOBACCO USE > 7 YEARS AGO quit over ten years ago [place] Dec 03, 2007 02:22 PM QUIT TOBACCO USE 1 -7 YEARS AGO [place] May 21, 2007 08:03 AM QUIT TOBACCO USE 1 -7 YEARS AGO [place] Jul 25, 2004 09:38 AM CURRENT SMOKER Smokes about 10 cigarettes/day, and trying to quit on his own [place] Apr 27, 2004 01:32 PM LIFETIME NON-TOBACCO USER [place] Advance Directives: All historical and current Section [...] 2011 ADVANCE DIRECTIVE DISCUSSION MARGARITA TERRAZAS [place] Encounter Notes: All associated encounter notes This section contains the clinical notes associated to the Encounter. Date/Time Encounter Note(s) Provider Source Apr 06, 2024 08:46 AM PHARMACY OUTPATIEN T NOTE: LOCAL TITLE: PHARMACY CLINIC NOTE STANDARD TITLE: PHARMACY OUTPATIENT NOTE DATE OF NOTE: APR 06, 2024@08:46 ENTRY DATE: APR 06, 2024@08:46:43 AUTHOR: EVELYEN SANCHEZ COSIGNER: URGENCY: STATUS: COMPLETED Known Allergies: NONSTEROIDAL ANTI-INFLAMMATORY, PENICILLIN, ROCEPHIN, POVIDONE IODINE, PHISOHEX THIMEROSAL, PAXIL, PINEAPPLES, MONOSODIUM GLUTAMATE, MELONS, LISINOPRIL TAMSULOSIN ANDREEA OVIEDO presented for follow-up for diabetes management treatment. Subjective: presents to clinic today with . is in walker; broke her hip in December 2023 and had surgery; now walking with walker and will graduate to cane. Pt notes that things have not been good at home; dtr will be needing surgery and he has had hospitalizations for CHF. He was dx with atrial flutter; had cardioversion, now in atrial fibrillation with planned ablation/ another cardioversion. He is on apixaban and will also need a valve replacement, he is hoping May 2024. Previously noted, early riser (4am) and walks 3 miles every morning; unable to do this currently and disappointed by it. Notes weight loss; clothes fitting looser. Tolerating therapy; occassional nausea which is tolerable, no vomiting. Notes he is followed by non-VA scooping machine tender. Also followed by non-VA urology; medications being adjusted and will update with changes. BP: 130/80 (01/22/2024 13:00) HR: 56 (01/22/2024 13:00) HT: 70 in [177.8 cm] (01/03/2022 10:15) WT: 196 lb [88.90 kg] (04/06/2024 08:58) BMI: BMI: 28.2 Objective: Diabetes Medication Regimen: semaglutide 1mg once weekly metformin SA 750mg BID Adherence: denies missed doses HEMOGLOBIN A1C TREND Collection DT Spec HGBA1c Non-VA A1c 6.4% (02/11/24). 01/05/2024 07:32 BLOOD 6.1 H 07/17/2023 07:35 [...] 0.84 01/05/24 07:32 0.68 07/17/23 07:35 0.69 CrCl: CRCL IBW: CrCl(est): 83.3 mL/min (Creat:0.84 02/27/24) CRCL ACT: 85.38 mL/min CRCL ADJ: 83.3 mL/min (02/27/24) Patient self-monitoring of blood glucose: [facility]: At home : Patient self-monitors blood glucose 1x day and reports the following (mg/dl): Date Range: 02/07/2024 - 04/06/2024 bG values are displayed in mg/dL # of tests 6 Average 134 SD 37 Highest 207 Lowest 105 Avg tests/day 0.1 # HI 0 # LO 0 <70 0.0% 70-180 83.3% >180 16.7% Hypos(<69) 0 Date Range: 02/07/2024 - 04/06/2024 bG values are displayed in mg/dL 00:00- :30- 08:00- 11:00- 12:30- 17:00- 18:30- 21:30- 05:30 08:00 11:00 12:30 17:00 18:30 21:30 00:00 02/15/2024 207 02/23/2024 132 03/21/2024 117 03/28/2024 105 Melonie 04/01/2024 120 04/02/2024 120 Patient eats on avg. 3x day: Diet [...] of <180. May consider A1c <7-8%. A1c at goal. With exception of one elevated BG, others at goal. Overall tolerating therapy. Will continue with current regimen. Support/encouragement provided. Discussed consideration of SGLT-2 inhibitor in setting of CHF; not on CPRS problem list but per pt's report. He will discuss with scooping machine tender and update clinic. Will continue to monitor. Will f/u q6-12 months; sooner as needed. Diabetes (Goal A1c<7%, FBG 90-110mg/dL, 2hPP<180mg/dL): - CONTINUE semaglutide 1mg once weekly - CONTINUE metformin SA 750mg BID - SMBG 2-3x/week - Monitor for s/sx hypoglycemia and contact clinic if BG consistently < 70mg/dL - Healthy lifestyle modifications encouraged - Repeat A1c: prior to f/u Clinic's Next Scheduled Follow-up: 6 months HTN: Last BP at [facility]; ADR to JARROD-I. Followed by cardiology. ASCVD: atorvastatin 20mg/day Microalb: 28.3 mg/G (04/2023) History of Preventive Care: Most recent visit to certified coder: 01/2024 Most recent visit to optometry: 03/2024; Diabetes without retinopathy or macular edema either eye. Time Spent: 25 minutes PBM PharmD Pharmacotherapy Rem V12: PHARMACIST INTERVENTIONS: TYPE 2 DIABETES MELLITUS Medication monitoring, no dosage change required, continue to monitor and assess Medication reconciliation (changes to active VA and non-VA medication lists to reconcile differences) No changes to medication lists made (medication review completed, no discrepancies identified) /andrew/ Evelyne Sanchez PharmD Clinical Pharmacy Practitioner Signed: 04/06/2024 09:28 EVELYNE SANCHEZ
--- OUTSIDE RECORDS SUMMARY | 2024-05-10 07:33 | XMS_ITS | Encounter Summary ---
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 [facility] [place] Address [address] [place] [address] Care Team Providers Care Rn Case Manager Name Role Phone CHITO SEGURA [...] PART A Feb 16, 2018 PART A [id number] YENNY OVIEDO PATIENT MEDICARE (WNR) MEDICARE (M) PART B Feb 16, 2018 PART B [id number] YENNY OVIEDO PATIENT MEDICARE (WNR) MEDICARE (M) PART A Oct 17, 2006 PART A [id number] [facility] [phone] YENNY OVIEDO PATIENT FOR LIFE TFL* Apr 06, 2018 [id number] YENNY OVIEDO PATIENT Selected Encounter This section includes the information on record at [place] for the Encounter. Date/Time Encounter Type Encounter Description Reason Pro vider Source Apr 19, 2024 11:11 AM Outpatient Encounter TELEPHONE PRIMARY CARE IHE Encounter Template Text not used by [place] Plan of Treatment: Future Appointments (+ 6 months) and Future Tests (+/- 45 days) The Plan of Treatment section includes future care activities for the patient from all [place] [facility]. This section includes future appointments and future orders which are active, pending or scheduled. Future Appointments This section includes appointments that were scheduled to occur 6 months from the date of the Encounter, up to a maximum of 20 appointments. The data comes from all [facility]. Appointment Date/Time Appointment Type Appointme nt Facility Name Apr 30, 2024 01:40 PM [facility] May 28, 2024 08:30 AM [facility]INE [facility] May 31, 2024 11:00 AM AMBULAT[facility] Jun 01, 2024 07:30 AM [facility] Jun 28, 2024 08:00 AM AMBULATORY - MEDICINE [facility] Aug 23, 2024 08:00 AM [facility] October 08, 2024 09:00 AM AMBULATORY - MEDICINE [facility] Active, Pending, and Scheduled Orders This section includes a listing of several types of active, pending, and scheduled orders, including clinic medications orders, diagnostic test orders, procedure orders and consult orders; where the start date of the order is 45 days before the date of the Encounter or 45 days after the date of theEncounter. The data comes from all [facility]. Test Date/Time Test Type Test Details Facility Name Apr 15, 2024 07:42 AM Consult Order COMMUNITY CARE-CARDIAC SURGERY Cons Material Mover's Choice [facility] Social History: Smoking Status (Most current) [...] 21, 2023 01:30 PM VA-TOBACCO FORMER USER [facility] Tobacco Use History This section includes a history of the smoking, or tobacco-related health factors, that were collected on or before the date of the Encounter. The data comes from the [place] facility where the Encounter took place. Date/Time Smoking Status/Tobacco Use Comment F acility Jul 21, 2023 01:30 PM VA-TOBACCO QUIT 15 YRS OR MORE [place] [facility] Mar 28, 2021 03:28 PM VA-TOBACCO FORMER USER [place] [facility] Mar 28, 2021 03:28 PM [place]-TOBACCO QUIT 15 YRS OR MORE [place] [facility] Dec 02, 2019 09:36 AM VA-TOBACCO NEVER USED [facility] Apr 23, 2005 10:19 AM QUIT TOBACCO USE IN PAST YEAR [facility] Advance Directives: All historical and current [...] 16, 2011 ADVANCE DIRECTIVE DISCUSSION MARGARITA TERRAZAS [place] Encounter Notes: All associated encounter notes This section contains the clinical notes associated to the Encounter. Date/Time Encounter Note(s) Provider Source Apr 19, 2024 11:11 AM TELEPHONE ENCOUNTE R NOTE: LOCAL TITLE: TELEPHONE NOTE/SPECIALTY CLINIC STANDARD TITLE: TELEPHONE ENCOUNTER NOTE DATE OF NOTE: APR 19, 2024@11:11 ENTRY DATE: APR 19, 2024@11:11:23 AUTHOR: NANCY MELENDEZ EXP COSIGNER: URGENCY: STATUS: COMPLETED called stating he has a code on his machine stating he needs to replace the tubing and he does not have a new tube to replace it with. would like some assistance with this issue and also to order supplies. He would like hose, filter, mask and tank. Veterans phine number and address have been confirmed. /lisa/ NANCY MELENDEZ ENGINEERING ADMINISTRATOR Signed: 04/19/2024 11:12 Receipt Acknowledged By: 04/19/2024 11:40 /es/ INNA HESTER,FITTING ROOM MAINTENANCE MECHANIC RESPIRATORY THERAPIST 04/19/2024 12:18 /es/ YASSINE BARGER RESPIRATORY THERAPIST 04/19/2024 11:23 /es/ JOHNNY CURRY, OIL FIELD ROUSTABOUT RESPIRATORY THERAPIST NANCY MELENDEZ [facility]
--- OUTSIDE RECORDS SUMMARY | 2024-05-10 07:33 | XMS_ITS | Encounter Summary ---
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 Organization [place] Address [address] [place] [address] Care Team Providers Care Sales Lead Name Role Phone CHITO SEGURA Primary Care [...] PART A Feb 16, 2018 PART A [id number] YENNY OVIEDO PATIENT MEDICARE (WNR) MEDICARE (M) PART B Feb 16, 2018 PART B [id number] YENNY OVIEDO ES PATIENT MEDICARE (WNR) MEDICARE (M) PART A Oct 17, 2006 PART A [id number] [phone] [id number] YENNY OVIEDO PATIENT FOR LIFE TFL* Apr 06, 2018 [id number] YENNY OVIEDO PATIENT Selected Encounter This section includes the information on record at [place] for the Encounter. Date/Time Encounter Type Encounter Description Reason Pro vider Source Jan 12, 2024 12:00 AM Outpatient Encounter COMMUNITY CARE CONSULT IHE Encounter Template Text not used by [place] Plan of Treatment: Future Appointments (+ 6 months) and Future Tests (+/- 45 days) The Plan of Treatment section includes future care activities for the patient from all [place] [facility]. This section includes future appointments and future orders which are active, pending or scheduled. Future Appointments This section includes appointments that were scheduled to occur 6 months from the date of the Encounter, up to a maximum of 20 appointments. The data comes from all [place] treatment facilities. Appointment Date/Time Appointment Type Appointme nt Facility Name Jan 22, 2024 01:00 PM AMBULATORY - MEDICINE [place] [facility] [place] [facility] Jan 29, 2024 08:45 AM AMBULATORY - MEDICINE [place] [facility] [place] [facility] Feb 16, 2024 08:00 AM [facility] Feb 17, 2024 07:30 AM AMBULATORY - NONE [place] [facility] [place] [facility] Mar 16, 2024 09:30 AM AMBULATORY - NONE [place] [facility] [place] [facility] Mar 30, 2024 07:30 AM AMBULATORY - MEDICINE [place] [facility] [place] [facility] Apr 06, 2024 09:00 AM [facility] Apr 12, 2024 08:00 AM [facility] [place] Apr 12, 2024 11:00 AM AMBULATORY - MEDICINE [place] [place] [facility] Apr 12, 2024 01:30 PM AMBULATORY - MEDICINE [place] [facility] [place] [facility] Apr 30, 2024 01:40 PM AMBULATORY - NONE [facility] [place] [place] [facility] May 28, 2024 08:30 AM AMBULATORY - MEDICINE [place] [facility] [place] [facility] May 31, 2024 11:00 AM AMBULATORY - MEDICINE [place] [facility] [place] [facility] Jun 01, 2024 07:30 AM AMBULATORY - NONE [place] [facility] [place] [facility] Jun 28, 2024 08:00 AM AMBULATORY - MEDICINE [facility] Lab Results: +/- 30 days of the encounter This section includes the Chemistry and Hematology Lab Results on record with [place] for the patient. Radiology Reports and Pathology Reports are provided separately, in subsequent sections. Lab Results This section contains the Chemistry/Hematology Results that were resulted 30 days before or 30 daysafter the date of the Encounter. Date/Time Source Result Type Result - Unit Interpretation Reference Range Comment Jan 05, 2024 07:32 AM [facility] LIVER FUNCTION Specimen Type: SERUM No comment entered. Ordering Provider: AYUSH SEGURA F Report Released Date/Time: Jul 21, 2023 02:25 PM Reporting Lab: [address] [address] Performing Lab: [address] [address] PROTEIN,TOTAL 6.3 g/dL 6.0-8.3 ALBUMIN 3.6 g/dL 3.5-5.0 ALKALINE PHOSPHATASE 39 U/L L 40-150 AST 13 U/L 5-34 ALT 15 U/L BILIRUBIN, TOTAL 1.0 mg/dL 0.2-1.2 Jan 05, 2024 07:32 AM [facility] BASIC METABOLIC PANEL (fasting) Specimen Type: SERUM No comment entered. Ordering Provider: AYUSH SEGURA F Report Released Date/Time: Jul 21, 2023 02:25 PM Reporting Lab: [address] [address] Performing Lab: [address] [address] UREA NITROGEN 21 mg/dL 7-25 GLUCOSE 126 mg/dL H 65-100 SODIUM 139 mmol/L 135-145 POTASSIUM 3.9 mmol/L 3.5-5.0 CHLORIDE 107 mmol/L 100-110 CO2 22 meq/L 20-30 CREATININE, Serum 0.68 mg/dL 0.50-1.40 eGFR(CKD-EPI 2020) >90 mL/min >60 Jan 05, 2024 07:32 AM [facility] LIPID PANEL FASTING Specimen Type: SERUM No comment entered. Ordering Provider: AYUSH SEGURA F Report Released Date/Time: Jul 21, 2023 02:25 PM Reporting Lab: [address] [address] Performing Lab: [facility] [address] [facility] [address] CHOLESTEROL 116 mg/dL TRIGLYCERIDE 73 mg/dL 0-150 LDL calculated 62 mg/dL 0-129 CHOL/HDL 3.0 HDL CHOLESTEROL 39 mg/dL L 40-60 Jan 05, 2024 07:32 AM [facility] MICROALBUMIN CREATININE RATIO PANEL Specimen Type: URINE No comment entered. Ordering Provider: AYUSH SEGURA F Report Released Date/Time: Jul 21, 2023 02:25 PM Reporting Lab: [facility] [address] [facility] [address] Performing Lab: [facility] [address] [facility] [address] MICROALBUMIN/C REATININE RATIO 45.9 mg/g H 0-29.9 MICROALBUMIN,Q UANTITATIVE 5.0 mg/dL RR UNAVAIL CREATININE URINE 108.91 mg/dL Jan 05, 2024 07:32 AM [facility] PSA Specimen Type: SERUM No comment entered. Ordering Provider: AYUSH SEGURA F Report Released Date/Time: Jul 21, 2023 02:25 PM Reporting Lab: [facility] [address] [facility] [address] Performing Lab: [address] [address] PSA < 0.10 ng/mL 0.00-4.00 Jan 05, 2024 07:32 AM [facility] HEMOGLOBIN A1C PANEL Specimen Type: [...] Jul 21, 2023 02:25 PM Reporting Lab: [address] [address] Performing Lab: [facility] [address] [facility] [address] HEMOGLOBIN A1C 6.1 H 4.0-5.6 Jan 05, 2024 07:32 AM [facility] URINALYSIS Specimen Type: URINE Comment: If Glucose = >500 and Ketones are positive, please alert the Physician. Ordering Provider: AYUSH SEGURA Report Released Date/Time: Jul 21, 2023 02:25 PM Reporting Lab: [facility] [address] [facility] [address] Performing Lab: [address] [address] UA COLOR Yellow Yellow UA APPEARANCE Clear [...] and tobacco- related health factors from the [place] facility where the Encounter took place. Current Smoking Status This section includes the most current smoking, or tobacco-related health factor, from the [place] facility where the Encounter took place. Date/Time Current Smoking Status Comment Ginger ellis Jul 21, 2023 01:30 PM VA-TOBACCO FORMER USER [facility] Tobacco Use History This section includes a history of the smoking, or tobacco-related health factors, that were collected on or before the date of the Encounter. The data comes from the [place] facility where the Encounter took place. Date/Time Smoking Status/Tobacco Use Comment F acsophia Jul 21, 2023 01:30 PM VA-TOBACCO QUIT 15 YRS OR MORE [facility] Mar 28, 2021 03:28 PM VA-TOBACCO FORMER USER [facility] Mar 28, 2021 03:28 PM VA-TOBACCO QUIT 15 YRS OR MORE [facility] Dec 02, 2019 09:36 AM VA-TOBACCO NEVER USED [facility] Apr 23, 2005 10:19 AM QUIT TOBACCO USE IN PAST YEAR [facility] Advance Directives: All historical and current Section Date Range: From patient's date of to the date document was created. This section includes ALL of a patient's completed or amended [place] Advance and Rescinded Directives. The entries below indicate that a directive exists for the patient, but an actual copy is not included with this document. The data comes from all [place] facilities. Date Advance Directives Provider Source Dec 16, 2011 ADVANCE DIRECTIVE DISCUSSION MARGARITA TERRAZAS [place] Encounter Notes: All associated encounter notes This section contains the clinical notes associated to the Encounter. Date/Time Encounter Note(s) Provider Source Jan 12, 2024 12:00 AM NONVA CONSULT: LOCAL TITLE: COMMUNITY CARE-CONSULT RESULT NOTE STANDARD TITLE: NONVA CONSULT DATE OF NOTE: JAN 12, 2024 ENTRY DATE: APR 08, 2024@16:06:29 AUTHOR: PRIMO HADDAD EXP COSIGNER: URGENCY: STATUS: COMPLETED VistA Imaging - Scanned Document SCANNED DOCUMENT SIGNATURE NOT REQUIRED Electronically Filed: 04/08/2024 by: PRIMO ORTEGA [facility]"
--- OUTSIDE RECORDS SUMMARY | 2024-05-10 07:33 | XMS_ITS | Encounter Summary ---
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 ([place]) Organization Department of Vetera Affairs [place] Address [address] [place] [address] Care Team Providers Care Under Cutting Machine Operator Name Role Phone CHITO SEGURA Primary [...] PART A Feb 16, 2018 PART A [id number] [id number] YENNY OVIEDO PATIENT MEDICARE (WNR) MEDICARE (M) PART B Feb 16, 2018 PART B [id number] YENNY OVIEDO PATIENT MEDICARE (WNR) MEDICARE (M) PART A Oct 17, 2006 PART A [id number] [facility] YENNY OVIEDO PATIENT FOR LIFE TFL* Apr 06, 2018 [id number] 11 YENNY OVIEDO PATIENT Selected Encounter This section includes the information on record at [place] for the Encounter. Date/Time Encounter Type Encounter Description Reason Provider Source Mar 30, 2024 03:46 PM Outpatient Encounter OPTOMETRY SUMI,JEANNETTEMIKE DANIELS IHAyah Encounter Template Text not used by DC Plan of Treatment: Future Appointments (+ 6 months) and Future Tests (+/- 45 days) The Plan of Treatment section includes future care activities for the patient from all [place] [facility]. This section includes future appointments and future orders which are active, pending or scheduled. Future Appointments This section includes appointments that were scheduled to occur 6 months from the date of the Encounter, up to a maximum of 20 appointments. The data comes from all [facility]. Appointment Date/Time Appointment Type Appointme nt Facility Name Apr 06, 2024 09:00 AM [facility] Apr 12, 2024 08:00 AM AMBULATORY - MEDICINE [facility] Apr 12, 2024 11:00 AM AMBULATORY - MEDICINE [place] [facility] Apr 12, 2024 01:30 PM AMBULATORY - MEDICINE DC [facility] [place] [place] [facility] Apr 30, 2024 01:40 PM AMBULATORY - NONE [place] [facility] [place] [facility] May 28, 2024 08:30 AM AMBULATORY - MEDICINE DC [facility] [place] [place] [facility] May 31, 2024 11:00 AM AMBULATORY - MEDICINE DC [facility] [place] [facility] Jun 01, 2024 07:30 AM AMBULATORY - NONE [place] [facility] Jun 28, 2024 08:00 AM [facility] Aug 23, 2024 08:00 AM [...] of theEncounter. The data comes from all [facility]. Test Date/Time Test Type Test Details Facility Name Apr 15, 2024 07:42 AM Consult Order COMMUNITY CARE-CARDIAC SURGERY Cons Mint Machine Operator's Choice [place] [facility] Social History: Smoking Status (Most current) and Tobacco Use (All prior to encounter date) This section includes the most current, and the historical, smoking and tobacco- related health factors from the DC facility where the Encounter took place. Current Smoking Status This section includes the most current smoking, or tobacco-related health factor, from the [place] facility where the Encounter took place. Date/Time Current Smoking Status Comment Ginger ellis Jul 21, 2023 01:30 PM VA-TOBACCO FORMER USER [facility] Tobacco Use History This section includes a history of the smoking, or tobacco-related health factors, that were collected on or before the date of the Encounter. The data comes from the [place] facility where the Encounter took place. Date/Time Smoking Status/Tobacco Use Comment Wilberto holbrook Jul 21, 2023 01:30 PM VA-TOBACCO QUIT 15 YRS OR MORE [facility] Mar 28, 2021 03:28 PM [facility]-TOBACCO [facility] Mar 28, 2021 03:28 PM VA-TOBACCO QUIT 15 YRS OR MORE [facility] Dec 02, 2019 09:36 AM VA-TOBACCO NEVER USED [facility] Apr 23, 2005 10:19 AM QUIT TOBACCO USE IN PAST YEAR [facility] Advance Directives: All historical and current Section Date Range: From patient's date of to the date document was created. This section includes ALL of a patient's completed or amended DC Advance and Rescinded Directives. The entries below indicate that a directive exists for the patient, but an actual copy is not included with this document. The data comes from all [place] facilities. Date Advance Directives Provider Source Dec 16, 2011 ADVANCE DIRECTIVE DISCUSSION MARGARITA TERRAZAS ALEXANDER Encounter Notes: All associated encounter notes This section contains the clinical notes associated to the Encounter. Date/Time Encounter Note(s) Provider Source Mar 30, 2024 03:46 PM OPTOMETRY SECURE MESSAGING: LOCAL TITLE: OPTOMETRY SECURE MESSAGING STANDARD TITLE: OPTOMETRY SECURE MESSAGING DATE OF NOTE: MAR 30, 2024@15:46 ENTRY DATE: MAR 30, 2024@15:46:17 AUTHOR: JEANNETTE JONAS COSIGNER: URGENCY: STATUS: COMPLETED ------Original Message ------- Sent: 03/30/2024 01:46 PM ET From: JEANNETTE JONAS To: ANDREEA OVIEDO Subject: General:General Inquiry Good afternoon, Sent message to Florian as requested. she states that she ordered you a pair of clear bifocals and a Pair of Sunglasses with the Perez dark tint as requested with the same frames for both. Are you looking for a pair of yellow tint glasses if so let me know and will send request to your provider as that is not up to Florian, Florian said she also called you and left you a message of this information. Thank you Jeannette ------Original Message ------- Sent: 03/30/2024 03:37 PM ET From: ANDREEA OVIEDO To: OPTOMETRY_NHM@ Subject: General:General Inquiry Thank you for sending it on to Florian. No, I do not want a pair of yellow tint sunglasses, am very happy with the pair Florian ordered. (I actually hate yellow tint lenses) I just checked my incoming calls and I received no call or message from Florian at my listed cell number. I know the correct number is in my records and there have been no changes to it. My cell number is [phone], I wonder if it was misdialed by one digit or ???, things happen. Thank you for alerting me to this. Please thank Florian for having ordered them for them. Any confusion experienced was clearly mine alone. Alina Oviedo /lisa/ JEANNETTE DANIELS [facility] Signed: 03/30/2024 15:46 Receipt Acknowledged By: 03/30/2024 16:28 /lisa/ FLORIAN [facility] JEANNETTE JONAS [facility]
--- OUTSIDE RECORDS SUMMARY | 2024-05-10 07:33 | XMS_ITS | Encounter Summary ---
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 Organization Department [place] Address [address] [place] [address] Care Team Providers Care Flow Manager Name Role Phone CHITO SEGURA Primary [...] PART A Feb 16, 2018 PART A [id number] YENNY OVIEDO PATIENT MEDICARE (WNR) MEDICARE (M) PART B Feb 16, 2018 PART B [id number] YENNY OVIEDO PATIENT MEDICARE (WNR) MEDICARE (M) PART A Oct 17, 2006 PART A [id number] [facility] YENNY OVIEDO PATIENT FOR LIFE TFL* Apr 06, 2018 [id number] YENNY OVIEDO PATIENT Selected Encounter This section includes the information on record at [place] for the Encounter. Date/Time Encounter Type Encounter Description Reason Pro vider Source Apr 19, 2024 11:25 AM Outpatient Encounter TELEPHONE/MEDICINE IHE Encounter Template Text not used by [place] Plan of Treatment: Future Appointments (+ 6 months) and Future Tests (+/- 45 days) The Plan of Treatment section includes future care activities for the patient from all [place] [facility]. This section includes future appointments and future orders which are active, pending or scheduled. Future Appointments This section includes appointments that were scheduled to occur 6 months from the date of the Encounter, up to a maximum of 20 appointments. The data comes from all [facility]. Appointment Date/Time Appointment Type Appointme nt Facility Name Apr 30, 2024 01:40 PM [facility]ONE [facility] May 28, 2024 08:30 AM [facility] May 31, 2024 11:00 AM [facility] Jun 01, 2024 07:30 AM AMBULATORY - NONE [facility] Jun 28, 2024 08:00 AM AMBULATORY - MEDICINE [facility] Aug 23, 2024 08:00 AM [facility] October 08, 2024 09:00 AM AMBULATORY - MEDICINE [facility] Active, [...] of theEncounter. The data comes from all [facility]. Test Date/Time Test Type Test Details Facility Name Apr 15, 2024 07:42 AM Consult Order COMMUNITY CARE-CARDIAC SURGERY Cons Trimmer Loader's Choice [facility] Social History: Smoking Status (Most current) [...] 21, 2023 01:30 PM VA-TOBACCO FORMER USER [facility] Tobacco Use History This section includes a history of the smoking, or tobacco-related health factors, that were collected on or before the date of the Encounter. The data comes from the [place] facility where the Encounter took place. Date/Time Smoking Status/Tobacco Use Comment F acility Jul 21, 2023 01:30 PM VA-TOBACCO QUIT 15 YRS OR MORE [facility] Mar 28, 2021 03:28 PM VA-TOBACCO FORMER USER [facility] Mar 28, 2021 03:28 PM VA-TOBACCO QUIT 15 YRS OR MORE [place] [facility] [place] [facility] Dec 02, 2019 09:36 AM VA-TOBACCO NEVER USED [place] [facility] Apr 23, 2005 10:19 AM QUIT TOBACCO USE IN PAST YEAR [facility] Advance Directives: All historical and current [...] Encounter Note(s) Provider Source Apr 19, 2024 11:25 AM SLEEP MEDICINE NOT E: LOCAL TITLE: CPAP CLINIC NOTE STANDARD TITLE: SLEEP MEDICINE NOTE DATE OF NOTE: APR 19, 2024@11:25 ENTRY DATE: APR 19, 2024@11:25:11 AUTHOR: JOHNNY CURRY EXP COSIGNER: URGENCY: STATUS: COMPLETED , diagnosed with sleep apnea, contacted clinic for a PAP supplies. is compliant and supplies will be ordered from [facility]. /lisa/ JOHNNY CURRY CRT RESPIRATORY THERAPIST Signed: 04/19/2024 11:26 JOHNNY CURRY
--- OUTSIDE RECORDS SUMMARY | 2024-05-10 07:33 | XMS_ITS | Encounter Summary ---
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 ([place]) Organization Department of Vetera Affairs [place] Address [address] [place] [address] Care Team Providers Care Senior Product Designer Name Role Phone CHITO SEGURA Primary [...] PART A Feb 16, 2018 PART A [id number] YENNY OVIEDO PATIENT MEDICARE (WNR) MEDICARE (M) PART B Feb 16, 2018 PART B [id number] YENNY OVIEDO ES PATIENT MEDICARE (WNR) MEDICARE (M) PART A Oct 17, 2006 PART A [id number] [facility] YENNY OVIEDO PATIENT FOR LIFE TFL* Apr 06, 2018 [id number] YENNY OVIEDO PATIENT Selected Encounter This section includes the information on record at [place] for the Encounter. Date/Time Encounter Type Encounter Description Reason Provider Source Mar 30, 2024 12:49 PM Outpatient Encounter OPTOMETRY SUMI,RAMIROMIKE DANIELS IHAyah Encounter Template Text not used by [place] Plan of Treatment: Future Appointments (+ 6 months) and Future Tests (+/- 45 days) The Plan of Treatment section includes future care activities for the patient from all [place] [facility]. This section includes future appointments and future orders which are active, pending or scheduled. Future Appointments This section includes appointments that were scheduled to occur 6 months from the date of the Encounter, up to a maximum of 20 appointments. The data comes from all [facility]. Appointment Date/Time Appointment Type Appointme nt Facility Name Apr 06, 2024 09:00 AM [facility] Apr 12, 2024 08:00 AM AMBULATORY - MEDICINE [facility] Apr 12, 2024 11:00 AM AMBULATORY - MEDICINE [place] [facility] Apr 12, 2024 01:30 PM AMBULATORY - MEDICINE [place] [facility] Apr 30, 2024 01:40 PM AMBULATORY - NONE [place] [facility] May 28, 2024 08:30 AM AMBULATORY - MEDICINE [place] [facility] May 31, 2024 11:00 AM AMBULATORY - MEDICINE [place] [facility] Jun 01, 2024 07:30 AM AMBULATORY - NONE [place] [facility] Jun 28, 2024 08:00 AM [facility] Aug 23, 2024 08:00 AM AMBULATORY - MEDICINE [facility] Active, Pending, and [...] of theEncounter. The data comes from all [facility]. Test Date/Time Test Type Test Details Facility Name Apr 15, 2024 07:42 AM Consult Order COMMUNITY CARE-CARDIAC SURGERY Cons [employer] Flatbed Truck Driver's Choice [place] [facility] Social History: Smoking Status (Most current) and [...] 21, 2023 01:30 PM VA-TOBACCO FORMER USER [facility] Tobacco Use History This section includes a history of the smoking, or tobacco-related health factors, that were collected on or before the date of the Encounter. The data comes from the [place] facility where the Encounter took place. Date/Time Smoking Status/Tobacco Use Comment Wilberto holbrook Jul 21, 2023 01:30 PM VA-TOBACCO QUIT 15 YRS OR MORE [facility] Mar 28, 2021 03:28 PM VA-TOBACCO [facility] Mar 28, 2021 03:28 PM VA-TOBACCO QUIT 15 YRS OR MORE [facility] Dec 02, 2019 09:36 AM VA-TOBACCO NEVER USED [facility] Apr 23, 2005 10:19 AM QUIT TOBACCO USE IN PAST YEAR [facility] Advance Directives: All historical and current [...] 16, 2011 ADVANCE DIRECTIVE DISCUSSION MARGARITA TERRAZAS [place] Encounter Notes: All associated encounter notes This section contains the clinical notes associated to the Encounter. Date/Time Encounter Note(s) Provider Source Mar 30, 2024 01:35 PM ADDENDUM: LOCAL TITLE: Addendum STANDARD TITLE: ADDENDUM DATE OF NOTE: MAR 30, 2024@13:35:48 ENTRY DATE: MAR 30, 2024@13:35:49 AUTHOR: FLORIAN MCCARTY EXP COSIGNER: URGENCY: STATUS: COMPLETED Per provider one pair clear and one pair sun diamond #3 ordered for . /lisa/ FLORIAN MCCARTY RECYCLING CENTER OPERATOR Signed: 03/30/2024 13:36 Receipt Acknowledged By: 03/30/2024 13:46 /es/ RAMIRO JONAS [facility] TECHHENDRICKS COMMUNITY HOSPITALIAN ====== --- Original Document --- 03/30/24 OPTOMETRY SECURE MESSAGING: ------Original Message ------- Sent: 03/30/2024 12:45 PM ET From: ANDREEA OVIEDO To: OPTOMETRY_NHM@ Subject: General:Glasses order from today's visit Please fwd to Florian. Florian, I incorrectly answered your question regarding two pairs of glasses. In my mind I thought you were ordering one clear set and one sunglasses, but on recalling our conversation I messed up and did not clarify one pair of each. My last pair of sunglasses had bifocal lenses and the GREENish or darkest tint you offer, not the yellow or pale orange . I am able to come back if required to resolve my error should you wish I do so or feel free to call me if you want. Andreea Oviedo, [id number]. /es/ RAMIRO BOONELON [facility] TECHINICIAN Signed: 03/30/2024 12:49 Receipt Acknowledged By: * AWAITING SIGNATURE * FLORIAN MCCARTY 03/30/2024 ADDENDUM STATUS: UNSIGNED You may not VIEW this UNSIGNED Addendum. FLORIAN MCCARTY [facility] [place] [facility] Mar 30, 2024 12:49 PM OPTOMETRY SECURE MESSAGING: LOCAL TITLE: OPTOMETRY SECURE MESSAGING STANDARD TITLE: OPTOMETRY SECURE MESSAGING DATE OF NOTE: MAR 30, 2024@12:49 ENTRY DATE: MAR 30, 2024@12:49:37 AUTHOR: RAMIRO JONAS EXP COSIGNER: URGENCY: STATUS: COMPLETED OPTOMETRY SECURE MESSAGING Has ADDENDA ------Original Message ------- Sent: 03/30/2024 12:45 PM ET From: ANDREEA OVIEDO To: OPTOMETRY_[facility]@ Subject: General:Glasses order from today's visit Please fwd to Nicole. Ford, I incorrectly answered your question regarding two pairs of glasses. In my mind I thought you were ordering one clear set and one sunglasses, but on recalling our conversation I messed up and did not clarify one pair of each. My last pair of sunglasses had bifocal lenses and the GREENish or darkest tint you offer, not the yellow or pale orange . I am able to come back if required to resolve my error should you wish I do so or feel free to call me if you want. Andreea Oviedo, [id number]. /lisa/ RAMIRO DANIELS [facility] Signed: 03/30/2024 12:49 Receipt Acknowledged By: 03/30/2024 14:39 /lisa/ FLORIAN [place] 03/30/2024 ADDENDUM STATUS: COMPLETED Per provider one pair clear and one pair sun diamond #3 ordered for . /lisa/ FLORIAN [place] Signed: 03/30/2024 13:36 Receipt Acknowledged By: 03/30/2024 13:46 /lisa/ RAMIRO DANIELS [facility] 03/30/2024 ADDENDUM STATUS: COMPLETED Sent message in secure message back to patient to inform him of information given by florian. /lisa/ RAMIRO DANIELS [facility] Signed: 03/30/2024 13:47 RAMIRO JONAS [place] CNTRL TRN [facility]
--- OUTSIDE RECORDS SUMMARY | 2024-05-10 07:33 | XMS_ITS | Encounter Summary ---
Author Name Department of Vetera Affairs ([place]) Organization Department of Vetera Affairs [place] Address [address] [place] [address] Care Team Providers Care Evs Tech Name Role Phone CHITO MENDEZ Primary Care [...] PART A Feb 16, 2018 PART A [id number] YENNY OVIEDO PATIENT MEDICARE (WNR) MEDICARE (M) PART B Feb 16, 2018 PART B [id number] YENNY OVIEDO ES PATIENT MEDICARE (WNR) MEDICARE (M) PART A Oct 17, 2006 PART A [id number] [facility] YENNY OVIEDO PATIENT FOR LIFE TFL* Apr 06, 2018 [id number] YENNY OVIEDO PATIENT Selected Encounter This section includes the information on record at [place] for the Encounter. Date/Time Encounter Type Encounter Description Reason Provider Source Apr 12, 2024 02:53 PM Outpatient Encounter PRIMARY CARE/MEDICINE BEVERLY FLORES IHE Encounter Template Text not used by DC Plan of Treatment: Future Appointments (+ 6 months) and Future Tests (+/- 45 days) The Plan of Treatment section includes future care activities for the patient from all [place] [facility]. This section includes future appointments and future orders which are active, pending or scheduled. Future Appointments This section includes appointments that were scheduled to occur 6 months from the date of the Encounter, up to a maximum of 20 appointments. The data comes from all [facility]. Appointment Date/Time Appointment Type Appointme nt Facility Name Apr 30, 2024 01:40 PM AMBULATORY - NONE [place] [place] [facility] May 28, 2024 08:30 AM AMBULATORY - MEDICINE [place] C [place] [facility] May 31, 2024 11:00 AM AMBULATORY - MEDICINE [place] C [place] [facility] Jun 01, 2024 07:30 AM AMBULATORY - NONE [place] [place] [facility] Jun 28, 2024 08:00 AM [facility] Aug 23, 2024 08:00 AM AMBULATORY - MEDICINE SPRI [facility] October 08, 2024 09:00 AM [...] of theEncounter. The data comes from all [facility]. Test Date/Time Test Type Test Details Facility Name Apr 15, 2024 07:42 AM Consult Order COMMUNITY CARE-CARDIAC SURGERY Cons Solar Thermal Technician's Choice [place] [facility]TR [place] [facility] Social History: Smoking Status (Most [...] 21, 2023 01:30 PM VA-TOBACCO FORMER USER [place] [facility] Tobacco Use History This section includes a history of the smoking, or tobacco-related health factors, that were collected on or before the date of the Encounter. The data comes from the [place] facility where the Encounter took place. Date/Time Smoking Status/Tobacco Use Comment F acility Jul 21, 2023 01:30 PM DC-TOBACCO QUIT 15 YRS OR MORE [facility] Mar 28, 2021 03:28 PM VA-TOBACCO FORMER USER [facility] Mar 28, 2021 03:28 PM DC-TOBACCO QUIT 15 YRS OR MORE DC CNT WSN [facility] Dec 02, 2019 09:36 AM VA-TOBACCO [facility]ED [facility] Apr 23, 2005 10:19 AM QUIT TOBACCO USE IN PAST YEAR [facility] Advance Directives: All historical and current Section [...] 16, 2011 ADVANCE DIRECTIVE DISCUSSION MARGARITA TERRAZAS [place] Encounter Notes: All associated encounter notes This section contains the clinical notes associated to the Encounter. Date/Time Encounter Note(s) Provider Source Apr 12, 2024 02:53 PM PRIMARY CARE [email or web address] E MESSAGING: LOCAL TITLE: PRIMARY CARE SECURE MESSAGING STANDARD TITLE: PRIMARY CARE SECURE MESSAGING DATE OF NOTE: APR 12, 2024@14:53 ENTRY DATE: APR 12, 2024@14:53:01 AUTHOR: DERIC FLORES EXP COSIGNER: URGENCY: STATUS: COMPLETED ------Original Message -------- Sent: 04/10/2024 11:27 AM ET From: ANDREEA OVIEDO To: Sebas MENDEZ_PRIMARY CARE_[facility] Subject: General:Cardiology OV 04.08.2024 Attachments: Dr Fernando OV 04.08.2024.pdf (266.09 KB) Mr. Mendez, Attached are the office notes from my visit with Dr. James Fernando, my Swift Tender. Andreea Oviedo ------Original Message -------- Sent: 04/12/2024 11:37 AM ET From: JEANIE SANDERS To: ANDREEA OVIEDO Subject: General:Cardiology OV 04.08.2024 Thank you, I have forwarded these to your PCP for review. Thank you for your service, Jenaie RN - PACT Planting Material Unloader ------Original Message -------- Sent: 04/12/2024 12:37 PM ET From: ANDREEA OVIEDO To: COLTONSebas_PRIMARY CARE_[facility] Subject: General:Cardiology OV 04.08.2024 Appreciate the response. We're trying to get reports to you as soon as they are available. Have not heard from Dr. Guerrero for my appointment that is to come. I expect Thanksgiving week is a bit tight for them and may hear next week. Have a good Thanksgiving and please pass same on to Mauri Shaffer for me. Edwar Oviedo /lisa/ DERIC FLORES LPN Signed: 04/12/2024 14:53 DERIC FLORES CNTRL TRN [facility]
--- OUTSIDE RECORDS SUMMARY | 2024-05-10 07:33 | XMS_ITS | Encounter Summary ---
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 Organization [place] Address [address] [place] [address] Care Team Providers Care Men'S Custom Hair Piece Consultant Name Role Phone CHITO SEGURA Primary Care [...] PART A Feb 16, 2018 PART A [id number] YENNY OVIEDO ES PATIENT MEDICARE (WNR) MEDICARE (M) PART B Feb 16, 2018 PART B [id number] [phone] [id number] YENNY OVIEDO ES PATIENT MEDICARE (WNR) MEDICARE (M) PART A Oct 17, 2006 PART A [id number] YENNY OVIEDO PATIENT FOR LIFE TFL* Apr 06, 2018 [id number] YENNY OVIEDO PATIENT Selected Encounter This section includes the information on record at [place] for the Encounter. Date/Time Encounter Type Encounter Description Reason Provider Source Apr 12, 2024 11:00 AM RPR&REFITG SPECT XCP APHAKIA OPTOMETRY ICD-10-CM Z46.0 Encounter for fit/adjst of spectacles and contact lenses KIARRA TERRAZAS [facility] Encounter Template Text not used by [place] Assessments - Encounter Diagnoses This section includes the primary and secondary diagnoses documented for the Encounter. Date/Time Primary/Secondary Diagnosis Diagnosis Name Provider Source Apr 12, 2024 11:11 AM PRIMARY Encounter for fit/adjst of spectacles and contact lenses KIARRA TERRAZAS [facility] Plan of Treatment: Future Appointments (+ 6 months) and Future Tests (+/- 45 days) The Plan of Treatment section includes future care activities for the patient from all [place] [facility]. This section includes future appointments [...] 2024 01:40 PM AMBULATORY - NONE [place] [facility] [facility] May 28, 2024 08:30 AM AM[facility]ORY [facility] May 31, 2024 11:00 AM AM[facility]ULAT[facility] - [facility] Jun 01, 2024 07:30 AM AMBULATORY - NONE [facility] [place] [facility] Jun 28, 2024 08:00 AM [facility] Aug 23, 2024 08:00 AM [facility] October 08, 2024 09:00 AM [facility] Active, Pending, and Scheduled Orders This section includes a listing of several types of active, pending, and scheduled orders, including clinic medications orders, diagnostic test orders, procedure orders and consult orders; where the start date of the order is 45 days before the date of the Encounter or 45 days after the date of theEncounter. The data comes from all [facility]. Test Date/Time Test Type Test Details Facility Name Apr 15, 2024 07:42 AM Consult Order COMMUNITY CARE-CARDIAC SURGERY Cons Cartridge Loading Operator's Choice [facility] Social History: Smoking Status (Most current) [...] 21, 2023 01:30 PM VA-TOBACCO [facility] Tobacco Use History This section includes a history of the smoking, or tobacco-related health factors, that were collected on or before the date of the Encounter. The data comes from the [place] facility where the Encounter took place. Date/Time Smoking Status/Tobacco Use Comment Wilberto holbrook Jul 21, 2023 01:30 PM VA-TOBACCO QUIT 15 YRS OR MORE [facility] [place] [facility] Mar 28, 2021 03:28 PM VA-TOBACCO [facility] Mar 28, 2021 03:28 PM VA-TOBACCO QUIT 15 YRS OR MORE [facility] Dec 02, 2019 09:36 AM VA[facility]TOBACCO [facility] Apr 23, 2005 10:19 AM QUIT TOBACCO USE IN PAST YEAR [facility] Advance Directives: All historical and current [...] 16, 2011 ADVANCE DIRECTIVE DISCUSSION MARGARITA TERRAZAS [place] Encounter Notes: All associated encounter notes This section contains the clinical notes associated to the Encounter. Date/Time Encounter Note(s) Provider Source Apr 12, 2024 11:09 AM OPTOMETRY NOTE: LOCAL TITLE: OPTOMETRY NOTE STANDARD TITLE: OPTOMETRY NOTE DATE OF NOTE: APR 12, 2024@11:09 ENTRY DATE: APR 12, 2024@11:09:33 AUTHOR: KIARRA TERRAZAS CHR EXP COSIGNER: URGENCY: STATUS: COMPLETED OPT HT fit and adjusted 2 pair(s) of eyeglasses per patient request. /lisa/ Kiarra Terrazas [facility] Webfocus Developer Signed: 04/12/2024 11:11 KIARRA TERRAZAS CNTL [facility]N [facility]
--- OUTSIDE RECORDS SUMMARY | 2024-05-10 07:34 | XMS_ITS | Encounter Summary ---
Author Name Department of [place] Organization [place] Address [address] [place] [address] Care Team Providers Care Councillor [employer] Land [employer] Name Role Phone CHITO MEDRANO Primary Care [...] PART A Feb 16, 2018 PART A [id number] YENNY OVIEDO PATIENT MEDICARE (WNR) MEDICARE (M) PART B Feb 16, 2018 PART B [id number] YENNY OVIEDO ES PATIENT MEDICARE (WNR) MEDICARE (M) PART A Oct 17, 2006 PART A [id number] [facility] YENNY OVIEDO PATIENT FOR LIFE TFL* Apr 06, 2018 [id number] YENNY OVIEDO PATIENT Selected Encounter This section includes the information on record at [place] for the Encounter. Date/Time Encounter Type Encounter Description Reason Provider Source May 03, 2024 02:26 PM Outpatient Encounter PRIMARY CARE/MEDICINE AISHA SANDERS E Encounter Template Text not used by [place] Plan of Treatment: Future Appointments (+ 6 months) and Future Tests (+/- 45 days) The Plan of Treatment section includes future care activities for the patient from all [place] [facility]. This section includes future appointments and future orders which are active, pending or scheduled. Future Appointments This section includes appointments that were scheduled to occur 6 months from the date of the Encounter, up to a maximum of 20 appointments. The data comes from all [place] treatment facilities. Appointment Date/Time Appointment Type Appointme nt Facility Name May 28, 2024 08:30 AM AMBULATORY - MEDICINE [facility] NTR [facility] May 31, 2024 11:00 AM AMBULATORY - MEDICINE [facility]L [facility] Jun 01, 2024 07:30 AM [facility] Jun 28, 2024 08:00 AM AMBULATORY - MEDICINE [facility] Aug 23, 2024 08:00 AM [facility] October 08, 2024 09:00 AM [facility] Active, Pending, and Scheduled Orders This section includes a listing of several types of active, pending, and scheduled orders, including clinic medications orders, diagnostic test orders, procedure orders and consult orders; where the start date of the order is 45 days before the date of the Encounter or 45 days after the date of theEncounter. The data comes from all [facility]. Test Date/Time Test Type Test Details Facility Name Apr 15, 2024 07:42 AM Consult Order COMMUNITY CARE-CARDIAC SURGERY Cons Press Hand Supervisor's Choice [facility] Social History: Smoking Status (Most current) [...] Ginger ellis Jul 21, 2023 01:30 PM DE-TOBACCO FORMER USER [facility] Tobacco Use History This section includes a history of the smoking, or tobacco-related health factors, that were collected on or before the date of the Encounter. The data comes from the [place] facility where the Encounter took place. Date/Time Smoking Status/Tobacco Use Comment F acility Jul 21, 2023 01:30 PM VA-TOBACCO QUIT 15 YRS OR MORE [place] [facility] [place] [facility] Mar 28, 2021 03:28 PM VA-TOBACCO FORMER USER [facility] Mar 28, 2021 03:28 PM VA-TOBACCO QUIT 15 YRS OR MORE [place] [facility] [place] [facility] Dec 02, 2019 09:36 AM VA-TOBACCO NEVER USED [place] [facility]TR [place] [facility] Apr 23, 2005 10:19 AM QUIT TOBACCO USE IN PAST YEAR [facility] Advance Directives: All historical and current [...] Encounter. Date/Time Encounter Note(s) Provider Source May 03, 2024 02:26 PM PRIMARY CARE Callystro E MESSAGING: LOCAL TITLE: PRIMARY CARE SECURE MESSAGING STANDARD TITLE: PRIMARY CARE SECURE MESSAGING DATE OF NOTE: MAY 03, 2024@14:26 ENTRY DATE: MAY 03, 2024@14:26:34 AUTHOR: AISHA SANDERS COSIGNER: URGENCY: STATUS: COMPLETED ------Original Message -------- Sent: 05/03/2024 07:40 AM ET From: ANDREEA OVIEDO To: Sebas MEDRANO_PRIMARY CARE_[facility] Subject: General:Office visit with Dr. Yolanda Ware, Saw Dr. Guerrero Friday at [facility] and his notes should be available on portal. Nutshell of visit is he is hesitant to do open valve replacement for multitude of reasons and has discussed my case with Dr. Mayes, (do not know him, but ratings are fabulous on him), for purpose of determining TAVR vs an open at [facility] or sending me to [place]. Awaiting a call from Dr. Mayes today or tomorrow. I suspect you will get more definite info from his notes, as we do not get full access to all portal notes. Edwar Oviedo ------Original Message -------- Sent: 05/03/2024 02:26 PM ET From: AISHA SANDERS To: ANDREEA OVIEDO Subject: General:Office visit with Dr. Guerrero Good Afternoon, Thank for letting us know! I was able to pull the note from the portal and share with Mr. Medrano Thank you for your service, MANJU Ware - PACT Lay Out Carpenter p.s. your chocolate cake was delicious! Happy Holidays! /es/ AISHA SANDERS RN REGISTERED NURSE Signed: 05/03/2024 14:26 AISHA SANDERS [facility]
--- OUTSIDE RECORDS SUMMARY | 2024-05-10 07:34 | XMS_ITS | Encounter Summary ---
Author Name Department of Vetera Affairs ([place] Organization Department of [place] Address [address] [place] [address] Care Team Providers Care Pst Supervisor Name Role Phone CHITO SEGURA Primary [...] PART A Feb 16, 2018 PART A [id number] YENNY OVIEDO PATIENT MEDICARE (WNR) MEDICARE (M) PART B Feb 16, 2018 PART B [id number] YENNY OVIEDO ES PATIENT MEDICARE (WNR) MEDICARE (M) PART A Oct 17, 2006 PART A [id number] [facility] YENNY OVIEDO PATIENT FOR LIFE TFL* Apr 06, 2018 [id number] YENNY OVIEDO PATIENT Selected Encounter This section includes the information on record at [place] for the Encounter. Date/Time Encounter Type Encounter Description Reason Provider Source Apr 23, 2024 02:49 PM Outpatient Encounter PRIMARY CARE/MEDICINE AISHA SANDERS E Encounter Template Text not used by [place] Plan of Treatment: Future Appointments (+ 6 months) and Future Tests (+/- 45 days) The Plan of Treatment section includes future care activities for the patient from all [place] [facility]. This section includes future appointments and future orders which are active, pending or scheduled. Future Appointments This section includes appointments that were scheduled to occur 6 months from the date of the Encounter, up to a maximum of 20 appointments. The data comes from all [facility] facilities. Appointment Date/Time Appointment Type Appointme nt Facility Name Apr 30, 2024 01:40 PM [facility] NONE [facility] May 28, 2024 08:30 AM [facility] - [facility] May 31, 2024 11:00 AM AMBULATORY - MEDICINE [facility] [place]L [place] [facility] Jun 01, 2024 07:30 AM [facility] Jun 28, 2024 08:00 AM [facility] Aug 23, 2024 08:00 AM AMB[facility] - [place]ICINE [place] [place] October 08, 2024 09:00 AM AMBULATORY - MEDICINE [facility] Active, Pending, and Scheduled Orders This section includes a listing of several types of active, pending, and scheduled orders, including clinic medications orders, diagnostic test orders, procedure orders and consult orders; where the start date of the order is 45 days before the date of the Encounter or 45 days after the date of theEncounter. The data comes from all [facility]. Test Date/Time Test Type Test Details Facility Name Apr 15, 2024 07:42 AM Consult Order COMMUNITY CARE-CARDIAC SURGERY Cons Reexaminer's Choice [facility] Social History: Smoking Status [...] 21, 2023 01:30 PM VA-TOBACCO FOR[facility] Tobacco Use History This section includes a history of the smoking, or tobacco-related health factors, that were collected on or before the date of the Encounter. The data comes from the [place] facility where the Encounter took place. Date/Time Smoking Status/Tobacco Use Comment F acility Jul 21, 2023 01:30 PM OR-TOBACCO QUIT 15 YRS OR MORE [facility] Mar 28, 2021 03:28 PM VA-TOBACCO FORMER USER [facility] Mar 28, 2021 03:28 PM OR-TOBACCO QUIT 15 YRS OR MORE [facility] WSN [facility] Dec 02, 2019 09:36 AM [facility]ACCO [facility] Apr 23, 2005 10:19 AM QUIT TOBACCO USE IN PAST YEAR [facility] Advance Directives: All historical and current Section [...] 16, 2011 ADVANCE DIRECTIVE DISCUSSION MARGARITA TERRAZAS [place] Encounter Notes: All associated encounter notes This section contains the clinical notes associated to the Encounter. Date/Time Encounter Note(s) Provider Source Apr 26, 2024 11:18 AM PRIMARY CARE SECURE MESSAGING: LOCAL TITLE: PRIMARY CARE SECURE MESSAGING STANDARD TITLE: PRIMARY CARE SECURE MESSAGING DATE OF NOTE: APR 26, 2024@11:18 ENTRY DATE: APR 26, 2024@11:18:36 AUTHOR: DERIC FLORES COSIGNER: URGENCY: STATUS: COMPLETED ------Original Message ------- Sent: 04/23/2024 03:30 PM ET From: ANDREEA OVIEDO To: Sebas SEGURA_PRIMARY CARE_[facility] Subject: General:Approval for Cardiac Surgery Aisha, thanks for going out of your way for me I really appreciate the trouble you went to on this. I am just off the phone with Dr. Guerrero's office and spoke with Ananda. She checked their incoming faxes and stated they have not received the information as of yet. On Friday I am to hear from HELEN by [address] or the other on their receipt of the information. I will wait to see what evolves on this and get back to you to let you know what happened or ask what I need do or who I need contact. I think this should pass from your hands at this point and I do not want to become a problem child for you. Thank you so very much again, Edwar Oviedo /lisa/ DERIC FLORES LPN Signed: 04/26/2024 11:18 Receipt Acknowledged By: 04/26/2024 11:22 /lisa/ AISHA SANDERS, RN REGISTERED NURSE DERIC FLORES [place] [place] [facility] Apr 23, 2024 02:49 PM PRIMARY CARE SECURE MESSAGING: LOCAL TITLE: PRIMARY CARE SECURE MESSAGING STANDARD TITLE: PRIMARY CARE SECURE MESSAGING DATE OF NOTE: APR 23, 2024@14:49 ENTRY DATE: APR 23, 2024@14:49:31 AUTHOR: AISHA SANDERS EXP COSIGNER: URGENCY: STATUS: COMPLETED ------Original Message ------- Sent: 04/23/2024 11:45 AM ET From: ANDREEA OVIEDO To: Sebas SEGURA_PRIMARY CARE_[facility] Subject: General:Approval for Cardiac Surgery Hunter Ware requested I let you know if I received any word about an approval number for my mitral valve replacement from the office/person that provide this. As of this morning I have had no notifications from that office or person. Edwar Oviedo ------Original Message ------- Sent: 04/23/2024 02:49 PM ET From: AISHA SANDERS To: ANDREEA OVIEDO Subject: General:Approval for Cardiac Surgery Below Should include all the information you need: DU-Documents uploaded to [facility]. RSP-Records faxed/sent to Community [facility] Provider. FUV-Follow up communication with provider/vendor to check on status FUD-[facility] Appointment scheduled/rescheduled. ASD-[facility] Appointment scheduled date: 04/30/2024 IAV-[place] informed of appt via: Phone and mail RCT-Referral Coordination Pst Supervisor RADHA-CONSTANZA User Role: Panel Instrument Repairer COM-Additional Comments: Referral Number: [id number] Priority: Routine Referral Issue Date: 2024-04-19 Expiration Date: 2024-10-27 First Appointment Date: 2024-04-30 Thank you for your service, MANJU Ware - PACT Act Tutor /es/ AISHA SANDERS RN REGISTERED NURSE Signed: 04/23/2024 14:49 AISHA SANDERS OR CNTRL TRN [facility]
--- OUTSIDE RECORDS SUMMARY | 2024-05-10 07:34 | XMS_ITS | Patient Health Record ---
Author Organization [facility] Address [address] [place] [address] Care Team Providers Care Sound Truck Operator Name Role Phone Jamar Atkinson MD Primary Care Provider Migel Godinez Unavailable [phone] ALLERGIES Allergen (clinical drug ingredient) Drug/Non Drug Allergy documented on EMR Reaction Allergy Type Onset Date Status Aspartame Unknown Drug Allergy Active Dexon/Vicryl (uncoded) Unknown Allergy Active angiotensin-converting enzyme inhibitor (FN) Dustin inhibitors (uncoded) Unknown Allergy Active Melons,pineapple (uncoded) Unknown Allergy Active Monosodium glutamate MSG (uncoded) Unknown Allergy Active Thimerosal Unknown Drug Allergy Active penicillin G Penicillin G Sodium Unknown Drug Allergy Active povidone-iodine Betadine Unknown Drug Allergy A ctive REASON FOR REFERRAL No Information MEDICATIONS Medication SIG (Take, Route, Frequency, Duration) Notes Start Date End Date Status Aspirin 81 81 MG 1 tablet Orally Once a day for 30 day(s) Active amLODIPine Besy-Benazepril HCl 2.5-10 MG as directed Orally Active Finasteride 5 MG 1 tablet Orally Once a day for 30 day(s) Active Sodium Fluoride 1.1 (0.5 F) MG 1 tablet at bedtime, after brushing teeth Orally Once a day for 30 day(s) Active oxyBUTYnin Chloride ER 10 MG 1 tablet Orally Once a day for 30 day(s) Active Miconazole Nitrate 2 % 1 application Ext ernally Twice a day for 14 day(s) Active Asmanex 60 Metered Doses 220 MCG/INH 1 puff in the evening Inhalation Once a day Active Combivent Respimat 20-100 MCG/ACT 1 puff Inhalation Four times a day Active Omeprazole 20 MG 1 capsule Orally Onc e a day for 30 day(s) Active [place] (Serenoa repens) 320 MG as directed Orally Active Fluticasone Propionate 50 MCG/ACT 1 spray in each nostril Nasally Once a day for 30 day(s) Active Cinnamon 500 MG as directed Orally Active Metoprolol Succinate 25 MG 1 capsule Ora lly Once a day Active EpiPen Active Terazosin HCl 10 MG 1 capsule Orally Onc e a day for 30 day(s) Active Clindamycin HCl 300 MG as directed Orall y every 8 hrs Active Vitamin D3 1000 UNIT 1 capsule Orally On ce a day for 30 day(s) Active clonazePAM 0.5 MG 1 tablet at bedtime Orally Once a day Active Milk Thistle 200 MG as directed Orally Active Montelukast Sodium 10 MG 1 tablet Orally Once a day for 30 day(s) Active metFORMIN HCl 500 MG 1 tablet with a damien l Orally Once a day for 30 day(s) Active IMMUNIZATIONS Vaccine Route Administration Date Status Comme nts Influenza Unknown 01/17/2018 Administered Influenza Unknown 03/07/2021 Administered SOCIAL HISTORY Tobacco Use: Social History Observation Description Date Details (start date - stop date) Former Smoker NA - NA Sex Assigned At : Social History Observation Description Sex Assigned At Unknown Tobacco Use/Smoking Question Answer Notes Patient is a former smoker When did you stop smoking? ended in the 1990 How long has it been since you last smoked? > 10 years Alcohol Screen Question Answer Notes Did you have a drink containing alcohol in the p ast year? 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) Active confirmed 307702769 Problem Diverticulosis of colon (K57.30) Active confirmed Diverticulosi s of colon (435825945) Problem Gastric polyp (K31.7) Active confirmed Gastric polyp (46004836) Problem Romeo esophagus (K22.70) Active confirmed Romeo esophagus (545363239) PLAN OF TREATMENT Pending Test Test Name Order Date Pathology 11/05/2021 Future Test Test Name Order Date UPPER GI ENDOSCOPY 07/28/2018 COLONOSCOPY 07/28/2018 UPPER GI ENDOSCOPY 09/19/2021 COLONOSCOPY 09/19/2021 Insurance Providers Payer Name Payer Address Payer Phone Subscriber Number Group Number Insured Name Patient Relationship to Insured Coverage Start Date Coverage End Date MEDICARE OF [place] [address] [place] [address] [phone] [id number] ANDREEA OVIEDO Self - patient is the insured [employer] [address] [place] [address] [id number] ANDREEA OVIEDO Self - patient is the insured MEDICAL (GENERAL) HISTORY Medical History History ICD Code NIDDM COPD Asthma PTSD Denies ID,CVA,renal disease BPH Negative colonoscopies in , 2006, and 06/2010 except for diffuse diverticulosis and a hyperplastic polyp Diverticular bleed in 2009 and sigmoid d iverticulitis on CT scan in 08/2010 GERD--EGD in 1994--HH, mild esophagitis- -bx neg for H.pylori and Romeo's Mitral valve disease with surgery as bel ow Screening colonoscopy in September of 2018 with removal of a tubular adenoma. The prep was somewhat limited. Upper endoscopy in September revealed a small area of Romeo's esophagus with biopsies negative for dysplasia, small hiatal hernia, and benign gastric polyps. Surgical History Surgery Date(Month/Year) Mitral Valve Replacement-Bovine 04/30/17 Left Rotator Cuff Repair 08/2015 Right Rotator Cuff Repair 06/2014 Left Inguinal Hernia repair x 3 Right knee arthroscopy Nerve release,left foot
--- OUTSIDE RECORDS SUMMARY | 2024-05-10 07:34 | XMS_ITS | Encounter Summary ---
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 [place] [facility] [place] Address [address] [place] [id number] Care Team Providers Care Biotechnician Name Role Phone CHITO SEGURA Primary Care [...] PART A Feb 16, 2018 PART A [id number] YENNY OVIEDO PATIENT MEDICARE (WNR) MEDICARE (M) PART B Feb 16, 2018 PART B [id number] YENNY OVIEDO ES PATIENT MEDICARE (WNR) MEDICARE (M) PART A Oct 17, 2006 PART A [id number] YENNY OVIEDO PATIENT FOR LIFE TFL* Apr 06, 2018 [id number] YENNY OVIEDO PATIENT Selected Encounter This section includes the information on record at [place] for the Encounter. Date/Time Encounter Type Encounter Description Reason Pro vider Source Mar 23, 2024 12:00 AM Outpatient Encounter COMMUNITY CARE CONSULT IHE Encounter Template Text not used by [place] Plan of Treatment: Future Appointments (+ 6 months) and Future Tests (+/- 45 days) The Plan of Treatment section includes future care activities for the patient from all [place] [facility] This section includes future appointments and future orders which are active, pending or scheduled. Future Appointments This section includes appointments that were scheduled to occur 6 months from the date of the Encounter, up to a maximum of 20 appointments. The data comes from all [facility]. Appointment Date/Time Appointment Type Appointme nt Facility Name Mar 30, 2024 07:30 AM AMBULATORY [place]ICINE [place] [facility] [place] [facility] Apr 06, 2024 09:00 AM [facility] Apr 12, 2024 08:00 AM [facility]IC[facility] Apr 12, 2024 11:00 AM AMBULATORY [place]ICINE [place] [facility] [place] [facility] Apr 12, 2024 01:30 PM AMBULATORY [place]ICINE [place] [facility] [place] [facility] Apr 30, 2024 01:40 PM AMBULATORY - NONE [place] [facility] [place] [facility] May 28, 2024 08:30 AM AMBULATORY [place]ICINE [place] [facility] [place] [facility] May 31, 2024 11:00 AM AMBULATORY - MEDICINE [place] [facility] [place] [facility] Jun 01, 2024 07:30 AM AMBULATORY - NONE [place] [facility] [place] [facility] Jun 28, 2024 08:00 AM [facility] Aug 23, 2024 08:00 AM AMBULATORY - MEDICINE [facility] Active, Pending, and Scheduled [...] comes from all [facility]. Test Date/Time Test Type Test Details Facility Name Apr 15, 2024 07:42 AM Consult Order COMMUNITY CARE-CARDIAC SURGERY Cons Music Worker's Choice [facility] Lab Results: +/- 30 days of [...] Range Comment Feb 27, 2024 07:43 AM [facility] CREATININE (eGFR 2020) Specimen Type: SERUM No comment entered. Ordering Provider: ELIEL SEGURA Report Released Date/Time: Feb 23, 2024 02:44 PM Reporting Lab: [address] [id number] Performing Lab: [address] [address] CREATININE, Serum 0.84 mg/dL 0.50-1.40 eGFR(CKD-EPI 2020) >90 mL/min >60 Feb 27, 2024 07:43 AM [facility] PT & INR (COUMADIN) Specimen Type: PLASMA No comment entered. Ordering Provider: ELIEL SEGURA Report Released Date/Time: Feb 23, 2024 02:44 PM Reporting Lab: [address] [address] Performing Lab: [address] [id number] INR 1.4 PROTIME 15.4 s H 10.0-13.1 Feb 27, 2024 07:43 AM [facility] CBC Specimen Type: BLOOD No comment entered. Ordering Provider: ELIEL SEGURA Report Released Date/Time: Feb 23, 2024 02:44 PM Reporting Lab: [address] [id number] Performing Lab: [address] [id number] WBC 6.44 10*3/uL 4.50-11.00 RBC 4.42 10*6/uL 4.23-5.66 HGB 13.1 g/dL 12.8-17 HCT 38.8 L 39.2-50.4 MCV 87.8 fL 82-99 MCHC 33.8 g/dL 30.8-35.1 PLT 116 10*3/uL L 140-360 RDW-CV 14.6 12.0-16.0 MCH 29.6 pg 26.2-32.6 Feb 27, 2024 07:43 AM [facility] LIVER FUNCTION Specimen Type: SERUM No comment entered. Ordering Provider: ELIEL SEGURA Report Released Date/Time: Feb 23, 2024 02:44 PM Reporting Lab: [facility] [address] [facility] [phone] Performing Lab: [address] [address] PROTEIN,TOTAL 6.3 g/dL 6.0-8.3 ALBUMIN 3.5 g/dL 3.5-5.0 ALKALINE PHOSPHATASE 45 U/L 40-150 AST 19 U/L 5-34 ALT 23 U/L BILIRUBIN, TOTAL 0.6 mg/dL 0.2-1.2 Social History: Smoking Status (Most current) and Tobacco Use (All prior to encounter date) This section includes the most current, and the historical, smoking and tobacco- related health factors from the [place] facility where the Encounter took place. Current Smoking Status This section includes the most current smoking, or tobacco-related health factor, from the [place] facility where the Encounter took place. Date/Time Current Smoking Status Comment Ginger ellis Jul 21, 2023 01:30 PM VA-TOBACCO QUIT 15 YRS OR MORE [facility] Tobacco Use History This section includes a history of the smoking, or tobacco-related health factors, that were collected on or before the date of the Encounter. The data comes from the [place] facility where the Encounter took place. Date/Time Smoking Status/Tobacco Use Comment F acsophia Jul 21, 2023 01:30 PM [facility]CO [facility]RS [facility] Mar 28, 2021 03:28 PM VA-TOBACCO FORMER USER [facility] Mar 28, 2021 03:28 PM VA-TOBACCO QUIT 15 YRS OR MORE [facility] Dec 02, 2019 09:36 AM VA-TOBACCO NEVER USED [facility] Apr 23, 2005 10:19 AM QUIT TOBACCO USE IN PAST YEAR [facility] Advance Directives: All historical and [...] 16, 2011 ADVANCE DIRECTIVE DISCUSSION MARGARITA TERRAZAS HUMBOLDT Encounter Notes: All associated encounter notes This section contains the clinical notes associated to the Encounter. Date/Time Encounter Note(s) Provider Source Mar 23, 2024 12:00 AM NONVA CONSULT: LOCAL TITLE: COMMUNITY CARE-CONSULT RESULT NOTE STANDARD TITLE: NONVA CONSULT DATE OF NOTE: MAR 23, 2024 ENTRY DATE: APR 29, 2024@10:23:55 AUTHOR: MINNIE MEDEIROS EXP COSIGNER: URGENCY: STATUS: COMPLETED VistA Imaging - Scanned Document SCANNED DOCUMENT SIGNATURE NOT REQUIRED Electronically Filed: 04/29/2024 by: MINNIE MEDEIROS [employer] PRODUCT DEVELOPMENT MANAGER MINNIE MEDEIROS [facility]
[2024-05-10 08:02] LABS: MANUAL DIFF FLAG NO
[2024-05-10 08:08] LABS: Prothrombin Time 22.9 SEC (10.9-12.4)
--- NOTE | 2024-05-10 08:13 | ED.SOB ---
HPI - SOB/Dyspnea General Chief Complaint: Dyspnea Stated Complaint: Spitting up blood, chills Time Seen by Provider: 05/10/24 08:01 Source: patient, family and old records reviewed Mode of arrival: ambulatory Limitations: no limitations History of Present Illness ED Provider: LAVERNE CORREA Narrative: 69 yo male with PMH of afib on eliquis, failing bovine MV with stenosis following up at [facility] to get repeat replacement, thrombocytopenia, CHF, pneumonia, ED, aflutter, DM2, HTN, BPH here with c/o chills last night, nasal congestion, coughing did have episode of streaks of blood in it scant no clots but also had nose bleed so he wasn't sure where it was coming from. No CP. He feels his swelling in legs is better. He has no fevers. He used his inhaler with no improvement this AM. He took all of his medications including lasix. No recent travel or sick contacts. MD elicited complaint: shortness of breath and cough (scant streaks of blood in it) Pertinent past history: congestive heart failure Onset (ago): day(s) (1) Context: recent illness (URI starting last night) Timing: intermittent Severity: mild Exacerbating factors: coughing Relieving factors: nothing Known history of: congestive heart failure Associated symptoms: cough, sputum production and hemoptysis Treatment prior to arrival: none Related Data Home Medications ?Medication ?Instructions ?Recorded ?Confirmed cholecalciferol (vitamin D3) 25 50 mcg PO DAILY 11/08/20 04/08/24 mcg (1,000 unit) capsule clonazepam 0.5 mg tablet 0.5 mg PO DAILY PRN Anxiety 11/08/20 04/08/24 epinephrine 0.3 mg/0.3 mL 0.3 mg IM Q10M PRN Allergic 11/08/20 04/08/24 injection, auto-injector (EpiPen) Reaction finasteride 5 mg tablet 5 mg PO DAILY 11/08/20 04/08/24 mometasone 220 mcg/actuation(30 2 inh inhalation BID 11/08/20 04/08/24 doses) breath activated powder inhaler (Asmanex Twisthaler) saw palmetto 160 mg capsule 320 mg PO DAILY 11/08/20 04/08/24 fluticasone propionate 50 1 spray intranasal DAILY 02/13/21 04/08/24 mcg/actuation nasal spray,suspension (Flonase Allergy Relief) eflaefghsb-jhwvwhxheoaha-jredjopn 1 tab PO DAILY PRN Migraine 04/19/22 04/08/24 50 mg-325 mg-40 mg tablet Headache atorvastatin 20 mg tablet 20 mg PO BEDTIME 12/25/22 04/08/24 omeprazole 20 mg capsule,delayed 40 mg PO DAILY@0630 01/30/23 04/08/24 release apixaban 5 mg tablet (Eliquis) 5 mg PO BID 01/05/24 04/08/24 mecobalamin (vitamin B12) 1,000 1,000 mcg PO DAILY 01/05/24 04/08/24 mcg lozenges semaglutide (weight loss) 0.5 1 mg subcut CHASE 01/05/24 04/08/24 mg/0.5 mL subcutaneous pen injector ipratropium 20 mcg-albuterol 100 1 puff inhalation Q4H PRN 02/02/24 04/08/24 mcg/actuation mist for inhalation Shortness Of Breath Or Wheezing (Combivent Respimat) terazosin 10 mg capsule 10 mg PO DAILY 02/03/24 04/08/24 tadalafil 5 mg tablet (Cialis) 5 mg PO DAILY 03/04/24 04/08/24 metformin 750 mg tablet,extended 375 mg PO BID 04/08/24 04/08/24 release 24 hr Previous Rx's ?Medication ?Instructions ?Recorded furosemide 40 mg tablet 40 mg PO DAILY #90 tabs 02/05/24 magnesium oxide 400 mg (241.3 mg 400 mg PO DAILY #90 tabs 02/05/24 magnesium) tablet spironolactone 25 mg tablet 12.5 mg (1/2 x 25 mg) PO DAILY #90 02/05/24 tabs diltiazem HCl 120 mg 120 mg PO DAILY #30 caps 03/04/24 capsule,extended release 24 hr empagliflozin 10 mg tablet 10 mg PO DAILY #90 tabs 04/13/24 (Jardiance) Allergies Allergy/AdvReac Type Severity Reaction Status Date / Time DUSTIN Inhibitors Allergy Severe Anaphylaxis Verified 05/10/24 07:32 [Dustin Inhibitors] aspirin Allergy Severe Anaphylaxis Verified 05/10/24 07:32 NSAIDS (Non-Steroidal Allergy Severe Anaphylaxis Verified 05/10/24 07:32 Anti-Inflamma [NSAIDS (NON-STEROIDAL ANTI-INFLAMMA] pineapple [PINEAPPLE] Allergy Severe Angioedema Verified 05/10/24 07:32 thimerosal [Thimerosal] Allergy Severe Angioedema Verified 05/10/24 07:32 Cephalosporins Allergy Intermediate Rash Verified 05/10/24 07:32 [CEPHALOSPORINS] fluoxetine [From PROZAC] Allergy Intermediate REQUIRED Verified 05/10/24 07:32 HOSPITALIZATION Penicillins Allergy Intermediate Rash Verified 05/10/24 07:32 tamsulosin Allergy Mild tacycardia Verified 05/10/24 07:32 aspartame [ASPARTAME] Allergy Unknown Unknown Verified 05/10/24 07:32 hexachlorophene Allergy Unknown Unknown Verified 05/10/24 07:32 [From PHISOHEX] melon Allergy Unknown Unknown Verified 05/10/24 07:32 perfume Allergy Unknown Unknown Verified 05/10/24 07:32 povidone-iodine Allergy Unknown Unknown Verified 05/10/24 07:32 [From BETADINE] soap [Betadine] Allergy Unknown Unknown Verified 05/10/24 07:32 codeine [Codeine] AdvReac Intermediate wakes up Verified 05/10/24 07:32 combative meperidine [From Demerol] AdvReac Intermediate Hallucinati Verified 05/10/24 07:32 ons monosodium glutamate AdvReac Intermediate Headache Verified 05/10/24 07:32 morphine AdvReac Intermediate wakes up Verified 05/10/24 07:32 combative dexon Allergy Unknown Unknown Uncoded 04/13/24 10:15 GLUE IN SHOES Allergy Unknown UNKNOWN Uncoded 04/13/24 10:15 PLASTIC TAPE Allergy Unknown skin Uncoded 04/13/24 10:15 problems POLYGLACTIC ACID(DEXON & Allergy Unknown UNKNOWN Uncoded 04/13/24 10:15 VICRYL) vicryl Allergy Unknown Unknown Uncoded 04/13/24 10:15 Review of Systems Review of Systems: Constitutional : No Fever, pos Chills ENT/Mouth : No Hoarseness, No sore throat, No Rhinorrhea, pos epistaxis Eyes: No Redness, No Discharge, No Vision Changes Cardiovascular : No Chest Pain, positive SOB, pos edema Respiratory : positive Cough, pos Sputum, no Wheezing, Gastrointestinal : No Nausea, No Vomiting, No Diarrhea, No abdominal Pain Genitourinary : No Dysuria, No Hematuria Musculoskeletal : No joint pain, pos Myalgias Skin : No rash Neuro : No Weakness, No Numbness, No Headache Psych : No anxiety, depression Heme/Lymph: No Bruising, No Bleeding Endocrine : No Polyuria, No Polydipsia All other systems reviewed and are negative [facility] Past Medical History Attestation statement: The following information was validated with the patient. Source: old records reviewed Medical History Atrial flutter Elevated cholesterol History of GI diverticular bleed BPH (benign prostatic hyperplasia) History of blood transfusion GERD (gastroesophageal reflux disease) Type 2 diabetes mellitus Depression with anxiety PTSD (post-traumatic stress disorder) Migraine COPD, mild Asthma HTN (hypertension) Obstructive sleep apnea Enlarged RV (right ventricle) Mitral regurgitation Surgical History History of esophagogastroduodenoscopy (EGD) H/O colonoscopy History of excision of lesion (06/25/22) History of arthroscopy of right knee History of left inguinal hernia repair History of repair of right rotator cuff History of repair of left rotator cuff History of mitral valve replacement S/P MVR (mitral valve replacement) Hx of cardiac cath Family History Family History Father Rheumatic fever Mother No problems noted. Sister Hx of aortic valve repair Brother Mitral valve replaced Social History Social History Household Members: Family Housing: House Do you presently have visiting nurse or other home services: No Alcohol intake: current Alcohol intake frequency: holidays/special occasions only Comment: pt refusing precautions steady on feet Patient Tobacco Use Status: Former Tobacco user Smoked in Last 30 Days: No Use of substances other than those prescribed or required for medical reasons: No Advance Directives: Yes Advance Directives on File: Yes Advance Directives Date on File: 10/29/21 service: Yes Current occupational status: retired 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 Oriented X3. No acute distress. Eyes: Pupils equal, round and reactive to light. ENT: Pharynx normal. no blood in nose or mouth Neck: Normal inspection. Neck supple. CVS: Normal heart rate and rhythm. Pulses normal. Respiratory: No respiratory distress. Breath sounds crackles in LLL Abdomen: Soft and nontender. Skin: Skin warm and dry. Normal skin color. Normal skin turgor. Extremities: 1-2+ pitting lower extremity edema. Neuro: Oriented X 3. No motor deficit. No sensory deficit. Course Course Course Narrative: suspect CHF not infection no wbc count no fevers, Medications Administered Discontinued Medications Generic Name Dose Route Start Last Admin Trade Name Freq PRN Reason Stop Dose Admin Furosemide 40 mg 05/10/24 09:13 05/10/24 09:48 Furosemide 40 Mg/4 Ml Vial IVPUSH 05/10/24 09:14 40 mg STAT STA Administration Protocol Medical Decision Making Medical Decision Making MDM Narrative: 69 yo male with PMH of afib on eliquis, failing bovine MV with stenosis following up at [facility] to get repeat replacement, thrombocytopenia, CHF, pneumonia, ED, aflutter, DM2, HTN, BPH here with c/o cough, chills not feeling well since last night no sick contacts or travel, he has swelling in legs but feels it is better than baseline - he took his lasix this AM. He had nosebleed/hemoptysis unclear if it was nose bleed causing blood in sputum. At this time start with labs, IV lasix, CXR and work up for CHF vs URI CXR edema ?opacities given his hemoptysis will obtain CTA for further eval and and any signs of active bleeding Differential Diagnosis Differential Diagnoses: The differential diagnosis associated with the presentation includes CHF, viral syndrome, hemoptysis, mass Admission/Observation Consideration of admission/observation: Escalation of care including admission/observation considered admit for diuresis hypoxia per Brandon admit here and direnaee he will work on plans for further management no need to transfer today Consult Healthcare Provider Management of the patient was discussed with: Hospitalist (will admit) and Lead Mechanical Engineer Dr. Taylor aware and has seen patient plans to touch base with cardiology from [facility] - patient in failure at this time but no shock has new O2 requirement Lab Data MDM Lab Attestation statement: I reviewed the patient's lab results. 05/10/24 07:53 05/10/24 07:53 Labs: Lab Results 05/10/24 05/10/24 05/10/24 Range/Units 07:53 07:54 08:14 WBC 7.5 (4.8-10.8) X10*3/uL RBC 4.08 L (4.60-5.80) X10*6/uL Hgb 12.3 L (14.0-18.0) g/dl Hct 36.7 L (42.0-52.0) % MCV 90.0 (80.0-98.0) fL MCH 30.1 (27.0-33.0) pg MCHC 33.5 (31.0-36.0) g/dl RDW 14.6 (11.0-16.0) % Plt Count 99 L (160-400) X10*3/uL MPV 10.0 (9.4-12.4) fL Immature Gran % (Auto) 0.3 (0.0-0.4) % Neut % (Auto) 83.5 H (45-73) % Lymph % (Auto) 7.0 L (20-40) % [place] % (Auto) 8.2 (2-11) % Eos % (Auto) 0.7 (0-4) % Baso % (Auto) 0.3 (0-2) % Lymph # (Auto) 0.5 L (1.2-4.9) X10*3/uL [place] # (Auto) 0.6 (0.1-1.2) X10*3/uL Eos # (Auto) 0.1 (0.0-0.4) X10*3/uL Baso # (Auto) 0.0 (0.0-0.2) X10*3/uL Abs Immat Gran (auto) 0.02 (0.00-0.03) X10*3/uL Absolute Neuts (auto) 6.3 (2.0-8.3) x10*3/uL Absolute Nucleated RBC 0.000 (0.0-0.012) X10*3/uL Nucleated RBC % (auto) 0.0 (0.0-0.2) /100WBC PT 22.9 H D (10.9-12.4) SEC INR 2.0 H (0.9-1.1) Sodium 140 (135-145) mmol/L Potassium 3.8 (3.3-5.1) mmol/L Chloride 107 (96-108) mmol/L Carbon Dioxide 22 (22-29) mmol/L Anion Gap 15 (12-20) BUN 25 H (9-16) mg/dL Creatinine 0.97 (0.5-1.4) mg/dL Estim Creat Clear Calc 78.3 Estimated GFR > 60 Random Glucose 161 H (60-115) mg/dL Lactic Acid (0.5-2.0) mmol/L Calcium 8.6 D (8.4-10.2) mg/dL Total Bilirubin 1.6 H (0.0-1.0) mg/dL AST 18 (5-37) U/L ALT 12 (0-40) U/L Alkaline Phosphatase 52 (39-117) U/L Troponin I High Sens 21.3 D (<3.5-35.0) ng/L B-Natriuretic Peptide 232 H (<100) pg/mL Total Protein 6.6 (6.5-8.0) g/dL Albumin 3.6 (3.5-5.0) g/dL Urine Color Yellow Urine Appearance Clear Urine pH 5.0 (5.0-9.0) Ur Specific [place] 1.010 (1.005-1.025) Urine Protein Negative (Neg-Trace) mg/dL Urine Glucose (UA) >=1000 H (Negative) mg/dL Urine Ketones Negative (Negative) mg/dL Urine Blood Negative (Negative) Urine Nitrite Negative (Negative) Ur Leukocyte Esterase Negative (Negative) Urine RBC 0-2 (0-2) /HPF Urine WBC 0-5 (0-5) /HPF Ur Squamous Epith Cells 0-2 (0-2) /HPF Urine Bacteria None Seen (None Seen) Hyaline Casts 0-2 (0-2) /LPF Influenza Type A (PCR) NEGATIVE (Negative) Influenza Type B (PCR) NEGATIVE (Negative) RSV RNA Qual (PCR) NEGATIVE (Negative) SARS-CoV-2 RNA (RT-PCR) NEGATIVE (Negative) 05/10/24 Range/Units 09:23 WBC (4.8-10.8) X10*3/uL RBC (4.60-5.80) X10*6/uL Hgb (14.0-18.0) g/dl Hct (42.0-52.0) % MCV (80.0-98.0) fL MCH (27.0-33.0) pg MCHC (31.0-36.0) g/dl RDW (11.0-16.0) % Plt Count (160-400) X10*3/uL MPV (9.4-12.4) fL Immature Gran % (Auto) (0.0-0.4) % Neut % (Auto) (45-73) % Lymph % (Auto) (20-40) % [place] % (Auto) (2-11) % Eos % (Auto) (0-4) % Baso % (Auto) (0-2) % Lymph # (Auto) (1.2-4.9) X10*3/uL [place] # (Auto) (0.1-1.2) X10*3/uL Eos # (Auto) (0.0-0.4) X10*3/uL Baso # (Auto) (0.0-0.2) X10*3/uL Abs Immat Gran (auto) (0.00-0.03) X10*3/uL Absolute Neuts (auto) (2.0-8.3) x10*3/uL Absolute Nucleated RBC (0.0-0.012) X10*3/uL Nucleated RBC % (auto) (0.0-0.2) /100WBC PT (10.9-12.4) SEC INR (0.9-1.1) Sodium (135-145) mmol/L Potassium (3.3-5.1) mmol/L Chloride (96-108) mmol/L Carbon Dioxide (22-29) mmol/L Anion Gap (12-20) BUN (9-16) mg/dL Creatinine (0.5-1.4) mg/dL Estim Creat Clear Calc Estimated GFR Random Glucose (60-115) mg/dL Lactic Acid 1.1 (0.5-2.0) mmol/L Calcium (8.4-10.2) mg/dL Total Bilirubin (0.0-1.0) mg/dL AST (5-37) U/L ALT (0-40) U/L Alkaline Phosphatase (39-117) U/L Troponin I High Sens (<3.5-35.0) ng/L B-Natriuretic Peptide (<100) pg/mL Total Protein (6.5-8.0) g/dL Albumin (3.5-5.0) g/dL Urine Color Urine Appearance Urine pH (5.0-9.0) Ur Specific [place] (1.005-1.025) Urine Protein (Neg-Trace) mg/dL Urine Glucose (UA) (Negative) mg/dL Urine Ketones (Negative) mg/dL Urine Blood (Negative) Urine Nitrite (Negative) Ur Leukocyte Esterase (Negative) Urine RBC (0-2) /HPF Urine WBC (0-5) /HPF Ur Squamous Epith Cells (0-2) /HPF Urine Bacteria (None Seen) Hyaline Casts (0-2) /LPF Influenza Type A (PCR) (Negative) Influenza Type B (PCR) (Negative) RSV RNA Qual (PCR) (Negative) SARS-CoV-2 RNA (RT-PCR) (Negative) Independent Interpretation I performed an independent interpretation of an: EKG, Plain X-Ray (pulm edema) and CT Scan (edema no VTE) Interpretation: Rate: 90 Rhythm: NSR [place]: left Normal P waves. 1st degree AVB Normal QRS complex. ST T wave : inverted t waves V1-V3, no JOE qTC: 499 prior studies: no sig change from priors The study has been interpreted contemporaneously by me. . Radiology Impression Discussion of test interpretation with radiology: I have reviewed the radiologist's reading. Independent Historian Clinical information obtained from an independent historian. History obtained from or confirmed by: Spouse External Record Review External record reviewed: Inpatient record and Outpatient record Discharge Plan Discharge Clinical Impression: Hypoxia CHF exacerbation Qualifiers: Heart failure type: unspecified Qualified Code(s): I50.9 - Heart failure, unspecified Patient Disposition: Admitted As Inpatient Print Language: Spanish
[2024-05-10 08:16] LABS: Basophils Percent Auto 0.3 % (0-2); Eosinophils Absolute Auto 0.1 X10*3/uL (0.0-0.4); Eosinophils Percent Auto 0.7 % (0-4); Hematocrit 36.7 % (42.0-52.0); Hemoglobin 12.3 g/dl (14.0-18.0); Imm Gran Abs Auto 0.02 X10*3/uL (0.00-0.03); Imm Gran Pct Auto 0.3 % (0.0-0.4); Lymphocytes Absolute Auto 0.5 X10*3/uL (1.2-4.9); Mean Corpuscular HGB Conc 33.5 g/dl (31.0-36.0); Mean Corpuscular Hemoglobin 30.1 pg (27.0-33.0); Monocytes Absolute Auto 0.6 X10*3/uL (0.1-1.2); Monocytes Percent Auto 8.2 % (2-11); Neutrophils Absolute Auto 6.3 x10*3/uL (2.0-8.3); Neutrophils Percent Auto 83.5 % (45-73); Red Blood Count 4.08 X10*6/uL (4.60-5.80); Red Cell Distribution Width 14.6 % (11.0-16.0); White Blood Count 7.5 X10*3/uL (4.8-10.8)
[2024-05-10 08:18] LABS: Platelet Count 99 X10*3/uL (160-400)
[2024-05-10 08:24] LABS: Appearance Urine Clear; Color Urine Yellow; Glucose Urine UA >=1000 mg/dL (Negative); Leukocyte Esterase Urine Negative (Negative); Nitrite Urine Negative (Negative); UMIC TRIGGER UACC YES; Urine Blood Negative (Negative); Urine Ketones Negative (Negative); Urine Protein Negative (Neg-Trace)
[2024-05-10 08:29] LABS: B Type Natriuretic Peptide 232 pg/mL (<100)
[2024-05-10 08:31] LABS: Albumin Level 3.6 g/dL (3.5-5.0); Anion Gap 15 (12-20); Aspartate Amino Transferase 18 U/L (5-37); Bilirubin Total 1.6 mg/dL (0.0-1.0); Blood Urea Nitrogen 25 mg/dL (9-16); Calcium 8.6 mg/dL (8.4-10.2); Carbon Dioxide 22 mmol/L (22-29); Chloride 107 mmol/L (96-108); Creatinine Clr Calc Pharmacy 78.3; Estimated Glomerular Filt Rate > 60; Glucose Random 161 mg/dL (60-115); Potassium 3.8 mmol/L (3.3-5.1); Sodium 140 mmol/L (135-145); Total Protein 6.6 g/dL (6.5-8.0)
[2024-05-10 08:31] LABS: Troponin-I High Sensitivity 21.3 ng/L (<3.5-35.0)
[2024-05-10 08:41] LABS: Bacteria Urine None Seen (None Seen); Hyaline Casts Urine 0-2 /LPF (0-2); RBC Urine 0-2 /HPF (0-2); Squamous Epithelial Cell Urine 0-2 /HPF (0-2); WBC Urine 0-5 /HPF (0-5)
[2024-05-10 08:41] LABS: Influenza A PCR NEGATIVE (Negative); Influenza B PCR NEGATIVE (Negative); Resp Syncy Virus RNA Qual PCR NEGATIVE (Negative); SARS COV2 PCR INHOUSE NEGATIVE (Negative)
[2024-05-10 09:46] LABS: Lactic Acid 1.1 mmol/L (0.5-2.0)
[2024-05-10] MEDS: Furosemide 40 MG/4 ML VIAL IVPUSH (09:48)
[2024-05-10 10:47] LABS: Alanine Aminotransferase 12 U/L (0-40); Alkaline Phosphatase 52 U/L (39-117)
--- NOTE | 2024-05-10 11:05 | P.CONCA_ITS ---
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 He apparently has seen cardiac surgery at [facility] and it was felt that he is a high-risk for redo surgery. As per that who is a nurse, they were told that he may have to go to [place] to get a lateral thoracotomy versus transcatheter mitral valve replacement. He was due to see Dr. Mayes for that but started having some chills yesterday along with progressive shortness of breath and lower extremity edema over the last few days. He also coughed up a small amount of blood. With these symptoms he presented to [facility]. He was hypoxic and is currently on 3 L nasal cannula. He is comfortable. He said he had to sit up yesterday in a recliner. He was on amiodarone for atrial fibrillation/atrial flutter but in February he was taken off the amiodarone and was started on diltiazem 120 mg daily. He has been compliant with medicine and he is on anticoagulation with apixaban 5 mg twice a day. [facility] Past Medical History Medical History Atrial flutter Elevated cholesterol History of GI diverticular bleed BPH (benign prostatic hyperplasia) History of blood transfusion GERD (gastroesophageal reflux disease) Type 2 diabetes mellitus Depression with anxiety PTSD (post-traumatic stress disorder) Migraine COPD, mild Asthma HTN (hypertension) Obstructive sleep apnea Enlarged RV (right ventricle) Mitral regurgitation Family History Family History Father Rheumatic fever Mother No problems noted. Sister Hx of aortic valve repair Brother Mitral valve replaced Surgical History Surgical History History of esophagogastroduodenoscopy (EGD) H/O colonoscopy History of excision of lesion (06/25/22) History of arthroscopy of right knee History of left inguinal hernia repair History of repair of right rotator cuff History of repair of left rotator cuff History of mitral valve replacement S/P MVR (mitral valve replacement) Hx of cardiac cath Social History Social History Household Members: Family Housing: House Do you presently have visiting nurse or other home services: No Alcohol intake: current Alcohol intake frequency: holidays/special occasions only Comment: pt refusing precautions steady on feet Patient Tobacco Use Status: Former Tobacco user Smoked in Last 30 Days: No Use of substances other than those prescribed or required for medical reasons: No Advance Directives: Yes Advance Directives on File: Yes Advance Directives Date on File: 10/29/21 service: Yes Current occupational status: retired Current occupation: ambidextrous, 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 Meds Allergies Allergy/AdvReac Type Severity Reaction Status Date / Time DUSTIN Inhibitors Allergy Severe Anaphylaxis Verified 05/10/24 07:32 [Dustin Inhibitors] aspirin Allergy Severe Anaphylaxis Verified 05/10/24 07:32 NSAIDS (Non-Steroidal Allergy Severe Anaphylaxis Verified 05/10/24 07:32 Anti-Inflamma [NSAIDS (NON-STEROIDAL ANTI-INFLAMMA] pineapple [PINEAPPLE] Allergy Severe Angioedema Verified 05/10/24 07:32 thimerosal [Thimerosal] Allergy Severe Angioedema Verified 05/10/24 07:32 Cephalosporins Allergy Intermediate Rash Verified 05/10/24 07:32 [CEPHALOSPORINS] fluoxetine [From PROZAC] Allergy Intermediate REQUIRED Verified 05/10/24 07:32 HOSPITALIZATION Penicillins Allergy Intermediate Rash Verified 05/10/24 07:32 tamsulosin Allergy Mild tacycardia Verified 05/10/24 07:32 aspartame [ASPARTAME] Allergy Unknown Unknown Verified 05/10/24 07:32 hexachlorophene Allergy Unknown Unknown Verified 05/10/24 07:32 [From PHISOHEX] melon Allergy Unknown Unknown Verified 05/10/24 07:32 perfume Allergy Unknown Unknown Verified 05/10/24 07:32 povidone-iodine Allergy Unknown Unknown Verified 05/10/24 07:32 [From BETADINE] soap [Betadine] Allergy Unknown Unknown Verified 05/10/24 07:32 codeine [Codeine] AdvReac Intermediate wakes up Verified 05/10/24 07:32 combative meperidine [From Demerol] AdvReac Intermediate Hallucinati Verified 05/10/24 07:32 ons monosodium glutamate AdvReac Intermediate Headache Verified 05/10/24 07:32 morphine AdvReac Intermediate wakes up Verified 05/10/24 07:32 combative dexon Allergy Unknown Unknown Uncoded 04/13/24 10:15 GLUE IN SHOES Allergy Unknown UNKNOWN Uncoded 04/13/24 10:15 PLASTIC TAPE Allergy Unknown skin Uncoded 04/13/24 10:15 problems POLYGLACTIC ACID(DEXON & Allergy Unknown UNKNOWN Uncoded 04/13/24 10:15 VICRYL) vicryl Allergy Unknown Unknown Uncoded 04/13/24 10:15 Home Medications ?Medication ?Instructions ?Recorded ?Confirmed ?Last Taken ?Type cholecalciferol (vitamin D3) 25 50 mcg PO DAILY 11/08/20 04/08/24 02/01/24 History mcg (1,000 unit) capsule clonazepam 0.5 mg tablet 0.5 mg PO DAILY PRN Anxiety 11/08/20 04/08/24 02/01/24 History epinephrine 0.3 mg/0.3 mL 0.3 mg IM Q10M PRN Allergic 11/08/20 04/08/24 Unknown History injection, auto-injector (EpiPen) Reaction finasteride 5 mg tablet 5 mg PO DAILY 11/08/20 04/08/24 02/01/24 History mometasone 220 mcg/actuation(30 2 inh inhalation BID 11/08/20 04/08/24 02/01/24 History doses) breath activated powder inhaler (Asmanex Twisthaler) saw palmetto 160 mg capsule 320 mg PO DAILY 11/08/20 04/08/24 02/01/24 History fluticasone propionate 50 1 spray intranasal DAILY 02/13/21 04/08/24 02/01/24 History mcg/actuation nasal spray,suspension (Flonase Allergy Relief) [id number] 1 tab PO DAILY PRN Migraine 04/19/22 04/08/24 Unknown History 50 mg-325 mg-40 mg tablet Headache atorvastatin 20 mg tablet 20 mg PO BEDTIME 12/25/22 04/08/24 02/01/24 History omeprazole 20 mg capsule,delayed 40 mg PO DAILY@0630 01/30/23 04/08/24 02/01/24 History release apixaban 5 mg tablet (Eliquis) 5 mg PO BID 01/05/24 04/08/24 02/01/24 History mecobalamin (vitamin B12) 1,000 1,000 mcg PO DAILY 01/05/24 04/08/24 02/01/24 History mcg lozenges semaglutide (weight loss) 0.5 1 mg subcut CHASE 01/05/24 04/08/24 01/18/24 History mg/0.5 mL subcutaneous pen injector ipratropium 20 mcg-albuterol 100 1 puff inhalation Q4H PRN 02/02/24 04/08/24 02/01/24 History mcg/actuation mist for inhalation Shortness Of Breath Or Wheezing (Combivent Respimat) terazosin 10 mg capsule 10 mg PO DAILY 02/03/24 04/08/24 Unknown History tadalafil 5 mg tablet (Cialis) 5 mg PO DAILY 03/04/24 04/08/24 Unknown History metformin 750 mg tablet,extended 375 mg PO BID 04/08/24 04/08/24 Unknown History release 24 hr Physical Exam 2 Vital Signs: Vital Signs: Last Vital Signs Temp 98.8 F 05/10/24 07:27 Pulse 91 05/10/24 10:21 Resp 20 05/10/24 10:21 BP 112/67 05/10/24 10:21 Pulse Ox 3 L 05/10/24 10:21 O2 Del Method Nasal Cannula 05/10/24 10:21 BMI result Body Mass Index 30.0 GENERAL APPEARANCE: On supplemental oxygen. NECK: no carotid bruit, + jugular venous distention. SKIN: no suspicious lesions, warm and dry. HEART: no obvious murmur, regular rate and rhythm. LUNGS: Crackles both bases. ABDOMEN: soft, nontender. EXTREMITIES: Mild edema. PERIPHERAL PULSES: equal. NEUROLOGIC: No gross deficits, AAO X 3 Objective Labs and Meds 05/10/24 07:53 05/10/24 07:53 Lab results: Laboratory Results - last 24 hr 05/10/24 05/10/24 05/10/24 07:53 07:54 08:14 WBC 7.5 RBC 4.08 L Hgb 12.3 L Hct 36.7 L MCV 90.0 MCH 30.1 MCHC 33.5 RDW 14.6 Plt Count 99 L MPV 10.0 Immature Gran % (Auto) 0.3 Neut % (Auto) 83.5 H Lymph % (Auto) 7.0 L [place] % (Auto) 8.2 Eos % (Auto) 0.7 Baso % (Auto) 0.3 Lymph # (Auto) 0.5 L [place] # (Auto) 0.6 Eos # (Auto) 0.1 Baso # (Auto) 0.0 Abs Immat Gran (auto) 0.02 Absolute Neuts (auto) 6.3 Absolute Nucleated RBC 0.000 Nucleated RBC % (auto) 0.0 PT 22.9 H D INR 2.0 H Sodium 140 Potassium 3.8 Chloride 107 Carbon Dioxide 22 Anion Gap 15 BUN 25 H Creatinine 0.97 Estim Creat Clear Calc 78.3 Estimated GFR > 60 Random Glucose 161 H Lactic Acid Calcium 8.6 D Total Bilirubin 1.6 H AST 18 ALT 12 Alkaline Phosphatase 52 Troponin I High Sens 21.3 D B-Natriuretic Peptide 232 H Total Protein 6.6 Albumin 3.6 Urine Color Yellow Urine Appearance Clear Urine pH 5.0 Ur Specific [place] 1.010 Urine Protein Negative Urine Glucose (UA) >=1000 H Urine Ketones Negative Urine Blood Negative Urine Nitrite Negative Ur Leukocyte Esterase Negative Urine RBC 0-2 Urine WBC 0-5 Ur Squamous Epith Cells 0-2 Urine Bacteria None Seen Hyaline Casts 0-2 Influenza Type A (PCR) NEGATIVE Influenza Type B (PCR) NEGATIVE RSV RNA Qual (PCR) NEGATIVE SARS-CoV-2 RNA (RT-PCR) NEGATIVE 05/10/24 09:23 WBC RBC Hgb Hct MCV MCH MCHC RDW Plt Count MPV Immature Gran % (Auto) Neut % (Auto) Lymph % (Auto) [place] % (Auto) Eos % (Auto) Baso % (Auto) Lymph # (Auto) [place] # (Auto) Eos # (Auto) Baso # (Auto) Abs Immat Gran (auto) Absolute Neuts (auto) Absolute Nucleated RBC Nucleated RBC % (auto) PT INR Sodium Potassium Chloride Carbon Dioxide Anion Gap BUN Creatinine Estim Creat Clear Calc Estimated GFR Random Glucose Lactic Acid 1.1 Calcium Total Bilirubin AST ALT Alkaline Phosphatase Troponin I High Sens B-Natriuretic Peptide Total Protein Albumin Urine Color Urine Appearance Urine pH Ur Specific [place] Urine Protein Urine Glucose (UA) Urine Ketones Urine Blood Urine Nitrite Ur Leukocyte Esterase Urine RBC Urine WBC Ur Squamous Epith Cells Urine Bacteria Hyaline Casts Influenza Type A (PCR) Influenza Type B (PCR) RSV RNA Qual (PCR) SARS-CoV-2 RNA (RT-PCR) Imaging Radiologist's impression: Impressions Chest X-Ray 05/10/24 08:08 IMPRESSION: Pulmonary edema and bilateral pleural effusions, small to moderate volume. Underlying inflammatory versus infectious process should be considered in the correct clinical settings. Electronically signed by: Elio Rosa MD 05/10/2024 08:20 AM [facility] Assessment and Plan (1) Prosthetic mitral valve stenosis: Status: Acute (2) CHF exacerbation: Qualifiers: Heart failure type: unspecified Qualified Code(s): I50.9 - Heart failure, unspecified Status: Acute (3) Atrial flutter: Qualifiers: Atrial flutter type: typical Qualified Code(s): I48.3 - Typical atrial flutter Status: Acute Plan 69-year-old gentleman with background of prosthetic mitral valve replacement with recent dyspnea and fatigue with echocardiography and cardiac catheterization confirming severe prosthetic mitral valve stenosis. He is being assessed for valve replacement and it appears he is a high-risk for redo surgery. Clinically he appears to be volume overloaded currently and I think his presentation is due to acute congestive heart failure. Lasix 40 mg IV b.i.d.. Continue Eliquis and diltiazem. He had a CTA done today and we will follow up on that. I think the hemoptysis is likely related to mitral stenosis but other etiologies like infection should be ruled out to given the chills. If any suspicion for infection he should be covered given prosthetic mitral valve. I will discuss the case at [facility] to see if he should be transferred to [facility] for further workup. Thank you for allowing me to participate in the care of your patient. Please feel free to contact me if you have any questions. Procedures Date of Service Date of Service: 05/10/24
--- NOTE | 2024-05-10 12:43 | PC.NURSE ---
pt heard from [facility] regarding his heart valve replacement - pt scheduled for May 21, 2024. informed MD Taylor of this information.
--- NOTE | 2024-05-10 14:07 | P.HPHOSP_ITS ---
History of Present Illness Date of Service: 05/10/24 Chief Complaint: progressive dyspnea/hemoptysis 69yo M with history bioprosthetic mitral valve replacement/chord repair [2017], persistent atrial flutter on apixaban, ANJELICA on CPAP, HTN, and DM2 presenting with progressive exertional dyspnea, orthopnea, and leg edema over the last 3 days. He could hear crackles in his lungs this morning; these cleared when he sat up. Today he coughed up a small amount of blood. He was noted to be hypoxic and is now on 3L O2 via nasal cannula. No recent medication changes and he endorses compliance with furosemide. He did have a recent meal that was higher in sodium than he would like. CT showed pulmonary edema with bilateral cardiogenic pleural effusions. BNP 232 [was 48 back in February]. He was given 40 mg of IV furosemide and is diuresing copiously now. No fever, chills, cough, or chest pain. The prosthetic mitral valve has been noted to be severely stenosed with area of 1.14 cm2 and mean gradient of 11 mm Hg on recent cardiac catheterization; no significant coronary artery disease. Review of Systems 2 Review of Systems: Yes all other systems are reviewed and are negative [facility] Medical History Atrial flutter Elevated cholesterol History of GI diverticular bleed BPH (benign prostatic hyperplasia) History of blood transfusion GERD (gastroesophageal reflux disease) Type 2 diabetes mellitus Depression with anxiety PTSD (post-traumatic stress disorder) Migraine COPD, mild Asthma HTN (hypertension) Obstructive sleep apnea Enlarged RV (right ventricle) Mitral regurgitation Family History Father Rheumatic fever Mother No problems noted. Sister Hx of aortic valve repair Brother Mitral valve replaced Surgical History History of esophagogastroduodenoscopy (EGD) H/O colonoscopy History of excision of lesion (06/25/22) History of arthroscopy of right knee History of left inguinal hernia repair History of repair of right rotator cuff History of repair of left rotator cuff History of mitral valve replacement S/P MVR (mitral valve replacement) Hx of cardiac cath Social History Household Members: Family Housing: House Do you presently have visiting nurse or other home services: No Alcohol intake: current Alcohol intake frequency: holidays/special occasions only Comment: pt refusing precautions steady on feet Patient Tobacco Use Status: Former Tobacco user Smoked in Last 30 Days: No Use of substances other than those prescribed or required for medical reasons: No Currently Displaying Signs/Symptoms of Drug Intoxication Withdrawal: No Have you been hit, kicked, punched, or otherwise hurt by someone within the past year? If so, by whom?: No Do you feel safe in your current relationship?: Yes Is there a partner from a previous relationship who is making you feel unsafe now?: No Are you made to feel afraid or neglected: No Advance Directives: Yes Advance Directives on File: Yes Advance Directives Date on File: 10/29/21 Do you have a plan to hurt others: No Plan Recently lost weight without trying: No How much weight loss: 24-33 pounds Eating poorly because of decreased appetite: Yes Nutrition screen score: 4 Nutrition Risks: No Nutritional Risk Poor oral hygiene: No service: Yes Current occupational status: retired Current occupation: ambidextrous, 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 Meds Allergies Allergy/AdvReac Type Severity Reaction Status Date / Time DUSTIN Inhibitors Allergy Severe Anaphylaxis Verified 05/10/24 07:32 [Dustin Inhibitors] aspirin Allergy Severe Anaphylaxis Verified 05/10/24 07:32 NSAIDS (Non-Steroidal Allergy Severe Anaphylaxis Verified 05/10/24 07:32 Anti-Inflamma [NSAIDS (NON-STEROIDAL ANTI-INFLAMMA] pineapple [PINEAPPLE] Allergy Severe Angioedema Verified 05/10/24 07:32 thimerosal [Thimerosal] Allergy Severe Angioedema Verified 05/10/24 07:32 Cephalosporins Allergy Intermediate Rash Verified 05/10/24 07:32 [CEPHALOSPORINS] fluoxetine [From PROZAC] Allergy Intermediate REQUIRED Verified 05/10/24 07:32 HOSPITALIZATION Penicillins Allergy Intermediate Rash Verified 05/10/24 07:32 tamsulosin Allergy Mild tacycardia Verified 05/10/24 07:32 aspartame [ASPARTAME] Allergy Unknown Unknown Verified 05/10/24 07:32 hexachlorophene Allergy Unknown Unknown Verified 05/10/24 07:32 [From PHISOHEX] melon Allergy Unknown Unknown Verified 05/10/24 07:32 perfume Allergy Unknown Unknown Verified 05/10/24 07:32 povidone-iodine Allergy Unknown Unknown Verified 05/10/24 07:32 [From BETADINE] soap [Betadine] Allergy Unknown Unknown Verified 05/10/24 07:32 codeine [Codeine] AdvReac Intermediate wakes up Verified 05/10/24 07:32 combative meperidine [From Demerol] AdvReac Intermediate Hallucinati Verified 05/10/24 07:32 ons monosodium glutamate AdvReac Intermediate Headache Verified 05/10/24 07:32 morphine AdvReac Intermediate wakes up Verified 05/10/24 07:32 combative dexon Allergy Unknown Unknown Uncoded 04/13/24 10:15 GLUE IN SHOES Allergy Unknown UNKNOWN Uncoded 04/13/24 10:15 PLASTIC TAPE Allergy Unknown skin Uncoded 04/13/24 10:15 problems POLYGLACTIC ACID(DEXON & Allergy Unknown UNKNOWN Uncoded 04/13/24 10:15 VICRYL) vicryl Allergy Unknown Unknown Uncoded 04/13/24 10:15 Active Medications: Current Medications Acetaminophen (Acetaminophen 325 Mg Tablet) 650 mg PO Q6H PRN PRN Reason: Pain, Mild 1-3,fever,headache Sodium Chloride (0.9 % Sodium Chloride Flush 3 Ml Syringe) [facility] Medications ?Medication ?Instructions ?Recorded ?Confirmed ?Last Taken ?Type cholecalciferol (vitamin D3) 25 50 mcg PO DAILY 11/08/20 05/10/24 05/10/24 History mcg (1,000 unit) capsule clonazepam 0.5 mg tablet 0.5 mg PO DAILY PRN Anxiety 11/08/20 05/10/24 02/01/24 History epinephrine 0.3 mg/0.3 mL 0.3 mg IM Q10M PRN Allergic 11/08/20 05/10/24 Unknown History injection, auto-injector (EpiPen) Reaction finasteride 5 mg tablet 5 mg PO DAILY 11/08/20 05/10/24 05/10/24 History mometasone 220 mcg/actuation(30 2 inh inhalation BID 11/08/20 05/10/24 05/10/24 History doses) breath activated powder inhaler ([employer]er) saw palmetto 160 mg capsule 160 mg PO DAILY 11/08/20 05/10/24 05/10/24 History fluticasone propionate 50 1 spray intranasal BID 02/13/21 05/10/24 05/10/24 History mcg/actuation nasal spray,suspension (Flonase Allergy Relief) [id number] 1 tab PO DAILY PRN Migraine 04/19/22 05/10/24 Unknown History 50 mg-325 mg-40 mg tablet Headache atorvastatin 20 mg tablet 20 mg PO BEDTIME 12/25/22 05/10/24 05/10/24 History omeprazole 20 mg capsule,delayed 40 mg PO DAILY@0630 01/30/23 05/10/24 05/10/24 History release apixaban 5 mg tablet (Eliquis) 5 mg PO BID 01/05/24 05/10/24 05/10/24 History semaglutide (weight loss) 0.5 1 mg subcut CHASE 01/05/24 05/10/24 05/09/24 History mg/0.5 mL subcutaneous pen injector terazosin 10 mg capsule 10 mg PO DAILY 02/03/24 05/10/24 05/10/24 History tadalafil 5 mg tablet (Cialis) 5 mg PO BEDTIME 03/04/24 05/10/24 05/10/24 History metformin 750 mg tablet,extended 750 mg PO BID 04/08/24 05/10/24 05/10/24 History release 24 hr cyanocobalamin (vitamin B-12) 100 100 mcg PO DAILY 05/10/24 05/10/24 05/10/24 History mcg tablet diltiazem HCl 120 mg 120 mg PO BEDTIME 05/10/24 05/10/24 05/10/24 History capsule,extended release 24 hr levalbuterol tartrate 45 2 puff inhalation BID PRN 05/10/24 05/10/24 05/10/24 History mcg/actuation aerosol inhaler SOB/Wheezing Physical Exam 2 Vital Signs and Narrative: Vital Signs: Last Vital Signs Temp 98.8 F 05/10/24 07:27 Pulse 73 05/10/24 12:18 Resp 18 05/10/24 12:18 BP 115/70 05/10/24 12:18 Pulse Ox 94 05/10/24 12:18 O2 Del Method Room Air 05/10/24 12:18 O2 Flow Rate 3 05/10/24 12:18 BMI result Body Mass Index 30.0 Gen: in no acute distress HEENT: sclera anicteric, moist mucus membranes Neck: supple, JVD present Lungs: bibasilar inspiratory crackles Heart: regular rate and rhythm, no murmurs Abd: soft, non-tender, non-distended Ext: 1+ bilateral leg edema Skin: warm/well-perfused Neuro: alert and oriented x3, no focal findings Psych: appropriate affect Results Labs 05/10/24 07:53 05/11/24 06:10 Labs: Laboratory Results - last 24 hr 05/10/24 05/10/24 05/10/24 07:53 07:54 08:14 MCV 90.0 MCH 30.1 MCHC 33.5 RDW 14.6 Plt Count 99 L MPV 10.0 Immature Gran % (Auto) 0.3 Neut % (Auto) 83.5 H Lymph % (Auto) 7.0 L [place] % (Auto) 8.2 Eos % (Auto) 0.7 Baso % (Auto) 0.3 Lymph # (Auto) 0.5 L [place] # (Auto) 0.6 Eos # (Auto) 0.1 Baso # (Auto) 0.0 Abs Immat Gran (auto) 0.02 Absolute Neuts (auto) 6.3 Absolute Nucleated RBC 0.000 Nucleated RBC % (auto) 0.0 PT 22.9 H D INR 2.0 H Anion Gap 15 Estim Creat Clear Calc 78.3 Estimated GFR > 60 Random Glucose 161 H Lactic Acid Calcium 8.6 D Total Bilirubin 1.6 H AST 18 ALT 12 Alkaline Phosphatase 52 Troponin I High Sens 21.3 D B-Natriuretic Peptide 232 H Total Protein 6.6 Albumin 3.6 Urine Color Yellow Urine Appearance Clear Urine pH 5.0 Ur Specific [place] 1.010 Urine Protein Negative Urine Glucose (UA) >=1000 H Urine Ketones Negative Urine Blood Negative Urine Nitrite Negative Ur Leukocyte Esterase Negative Urine RBC 0-2 Urine WBC 0-5 Ur Squamous Epith Cells 0-2 Urine Bacteria None Seen Hyaline Casts 0-2 Influenza Type A (PCR) NEGATIVE Influenza Type B (PCR) NEGATIVE RSV RNA Qual (PCR) NEGATIVE SARS-CoV-2 RNA (RT-PCR) NEGATIVE 05/10/24 09:23 MCV MCH MCHC RDW Plt Count MPV Immature Gran % (Auto) Neut % (Auto) Lymph % (Auto) [place] % (Auto) Eos % (Auto) Baso % (Auto) Lymph # (Auto) [place] # (Auto) Eos # (Auto) Baso # (Auto) Abs Immat Gran (auto) Absolute Neuts (auto) Absolute Nucleated RBC Nucleated RBC % (auto) PT INR Anion Gap Estim Creat Clear Calc Estimated GFR Random Glucose Lactic Acid 1.1 Calcium Total Bilirubin AST ALT Alkaline Phosphatase Troponin I High Sens B-Natriuretic Peptide Total Protein Albumin Urine Color Urine Appearance Urine pH Ur Specific [place] Urine Protein Urine Glucose (UA) Urine Ketones Urine Blood Urine Nitrite Ur Leukocyte Esterase Urine RBC Urine WBC Ur Squamous Epith Cells Urine Bacteria Hyaline Casts Influenza Type A (PCR) Influenza Type B (PCR) RSV RNA Qual (PCR) SARS-CoV-2 RNA (RT-PCR) Imaging Radiologist's Impressions: Impressions Chest X-Ray 05/10/24 08:08 IMPRESSION: Pulmonary edema and bilateral pleural effusions, small to moderate volume. Underlying inflammatory versus infectious process should be considered in the correct clinical settings. Electronically signed by: Elio Rosa MD 05/10/2024 08:20 AM EST RP Chest CTA 05/10/24 09:06 IMPRESSION: No acute pulmonary artery emboli. No thoracic aortic aneurysm. Concerning pulmonary edema and bilateral pleural effusions, small to moderate volume likely cardiogenic. Superimposed inflammatory infectious process in the left upper lung lobe cannot be excluded. Follow-up until resolution. Diverticular disease. Fleischner guidelines were followed. Electronically signed by: Elio Rosa MD 05/10/2024 01:24 PM EST RP Assessment and Plan (1) CHF (congestive heart failure): Status: Acute Plan 69yo M with history bioprosthetic mitral valve replacement/chord repair [2017] with subsequent severe stenosis, persistent atrial flutter on apixaban, ANJELICA on CPAP, HTN, and DM2 presenting with progressive exertional dyspnea, orthopnea, leg edema, and now hemoptysis. Found to have pulmonary edema with cardiogenic pleural effusions related to valvular CHF. acute hypoxic respiratory failure due to acute decompensated heart failure [acute/chronic HFpEF, valvular CHF] - Admit to telemetry with Cardiology consultation. Diurese with furosemide. Monitor BNP, lytes, I/O, weight. Cardiology to discuss with [facility] to see if valve replacement can be expedited. Continue empagliflozin and spironolactone. persistent atrial flutter - Continue apixaban and diltiazem asthma/COPD overlap not in acute exac - Prn nebs, inhaled steroid prostatism - Finasteride, terazosin. DM2 - Correction-dose lispro, empagliflozin; hold MTF VTE prophylaxis - apixaban dispo - acute care transfer code status - full I anticipate that the patient will stay at least 2 midnights as an inpatient in the hospital due to the above reasons. It is neither reasonable nor safe to care for them in a less acute setting. Quality Stroke Does the patient have a stroke diagnosis?: No VTE Prior VTE?: No VTE Risk Level:: Medical - moderate - high VTE Device Contraindication: N/A - Device Ordered VTE Drug Contraindication: N/A - Med Ordered
[2024-05-10 14:56] LABS: Procalcitonin 0.04 ng/mL
--- NOTE | 2024-05-10 15:22 | PHA.MEDREC ---
Addendum entered by Tammi Johnson RPh 05/10/24 19:03: Reviewed by [facility]. [facility] . Original Note: Pharmacy Consult ? Medication Reconciliation Pharmacy has completed the medication reconciliation. Spoke with patient and the patients over the phone was the one who confirmed the patients medications. They confirmed the patient is taking an Asmenex inhaler inhaling 2 puffs BID as needed for SOB or Wheezing, there is no claims for that in the patients claims. The patient confirmed he took his medications this morning.
[2024-05-10] MEDS: Fluticasone Propionate Nasal 16 GM SPRAY 1 SPRAY NOSTRIL-B (20:09)
[2024-05-10] MEDS: Apixaban 5 MG TABLET PO (20:09)
[2024-05-10] MEDS: Atorvastatin Calcium 20 MG TABLET PO (20:09)
[2024-05-10] MEDS: dilTIAZem HCL CD 120 MG CAP.ER.DEG PO (20:09)
[2024-05-10] MEDS: 0.9 % Sodium Chloride Flush 3 ML SYRINGE IVFLUSH (20:11)
[2024-05-11] VITALS (7 sets, daily range): BP systolic 101–141; BP diastolic 59–81; PULSE 54–89; RESP 16–20; TEMP 36.4–37; O2SAT 91–95
[2024-05-11] MEDS: Omeprazole 40 MG CAPSULE.DR PO (06:07)
[2024-05-11 06:39] LABS: Anion Gap 16 (12-20); Blood Urea Nitrogen 24 mg/dL (9-16); Calcium 8.8 mg/dL (8.4-10.2); Carbon Dioxide 24 mmol/L (22-29); Chloride 106 mmol/L (96-108); Creatinine Clr Calc Pharmacy 92.9; Estimated Glomerular Filt Rate > 60; Glucose Random 131 mg/dL (60-115); Magnesium 2.4 mg/dL (1.6-2.6); Potassium 3.6 mmol/L (3.3-5.1); Sodium 142 mmol/L (135-145)
[2024-05-11] MEDS: Fluticasone Propionate 250 MCG BLST.W.DEV 1 PUFF INHALE ×2 (07:54→19:27)
[2024-05-11] MEDS: Doxazosin Mesylate 2 MG TABLET 8 MG PO (08:20)
[2024-05-11] MEDS: Furosemide 40 MG/4 ML VIAL IVPUSH (08:20)
[2024-05-11] MEDS: Finasteride 5 MG TABLET PO (08:20)
[2024-05-11] MEDS: Empagliflozin 10 MG TABLET PO (08:21)
[2024-05-11] MEDS: Cholecalciferol (Vitamin D3) 25 MCG TABLET 50 MCG PO (08:21)
[2024-05-11] MEDS: Cyanocobalamin (Vitamin B-12) 1,000 MCG TABLET 1000 MCG PO (08:21)
[2024-05-11] MEDS: Spironolactone 25 MG TABLET 12.5 MG PO (08:21)
[2024-05-11] MEDS: 0.9 % Sodium Chloride Flush 3 ML SYRINGE IVFLUSH ×2 (08:21→15:11)
[2024-05-11] MEDS: Apixaban 5 MG TABLET PO ×2 (08:21→20:50)
[2024-05-11] MEDS: Fluticasone Propionate Nasal 16 GM SPRAY 1 SPRAY NOSTRIL-B ×2 (08:29→21:02)
--- NOTE | 2024-05-11 08:56 | P.PNCA_ITS ---
Subjective Subjective Date of Service: 05/11/24 Interval history: Seen examined at bedside. Still volume overloaded. Physical Exam Vital Signs: Last Vital Signs Temp 97.5 F 05/11/24 07:48 Pulse 89 05/11/24 08:01 Resp 16 05/11/24 08:01 BP 141/73 H 05/11/24 07:48 Pulse Ox 93 05/11/24 07:48 O2 Del Method Room Air 05/11/24 07:48 O2 Flow Rate 2.5 05/11/24 03:10 BMI result Body Mass Index 28.6 GENERAL APPEARANCE: On supplemental oxygen. NECK: no carotid bruit, + jugular venous distention. SKIN: no suspicious lesions, warm and dry. HEART: no obvious murmur, regular rate and rhythm. LUNGS: Crackles both bases. ABDOMEN: soft, nontender. EXTREMITIES: Mild edema. PERIPHERAL PULSES: equal. NEUROLOGIC: No gross deficits, AAO X 3 Objective Labs and Meds 05/10/24 07:53 05/11/24 06:10 Lab results: Laboratory Results - last 24 hr 05/10/24 05/10/24 05/11/24 07:53 09:23 06:10 Sodium 142 Potassium 3.6 Chloride 106 Carbon Dioxide 24 Anion Gap 16 BUN 24 H Creatinine 0.80 Estim Creat Clear Calc 92.9 Estimated GFR > 60 Random Glucose 131 H Lactic Acid 1.1 Calcium 8.8 Magnesium 2.4 ALT 12 Alkaline Phosphatase 52 Procalcitonin 0.04 Imaging Radiologist's impression: Impressions Chest CTA 05/10/24 09:06 IMPRESSION: No acute pulmonary artery emboli. No thoracic aortic aneurysm. Concerning pulmonary edema and bilateral pleural effusions, small to moderate volume likely cardiogenic. Superimposed inflammatory infectious process in the left upper lung lobe cannot be excluded. Follow-up until resolution. Diverticular disease. Fleischner guidelines were followed. Electronically signed by: Elio Rosa MD 05/10/2024 01:24 PM [facility] Progress Note: A&P Assessment and plan (1) Prosthetic mitral valve stenosis: Status: Acute (2) CHF exacerbation: Status: Acute Plan Pleasant 69-year-old gentleman with prosthetic mitral valve stenosis and congestive heart failure. Diuresing and improving clinically. Still volume overloaded. Continue IV diuretics today. We will reassess him tomorrow and depending on volume status we will transition him to oral Lasix. Plan will be to transfer him to [facility] tomorrow for CTA TMVR protocol so he could start workup for transcatheter mitral valve replacement. We will follow along with you. Thank you for allowing me to participate in the care of your patient. Please feel free to contact me if you have any questions. Time Spent With Patient Time: Total time managing care of this patient today ____ minutes. Progress Note: Quality Stroke Does the patient have a stroke diagnosis?: No Procedures Date of Service Date of Service: 05/11/24
--- NOTE | 2024-05-11 09:43 | MHC.CM.PN ---
[facility] I[facility] 05/11/24, Pt. lives with family, PCP is confirmed: Jamar Atkinson, HCP is on file: names his Yoly. Pt. is independent, no home health services, uses a cane. DCP is acute care transfer to [facility] via [facility].
--- NOTE | 2024-05-11 11:33 | MHC.CLN ---
NUTRITION DIET=DIABETIC 2200 KCALS, 2 GRAM SODIUM. REVIEW OF WEIGHT HX SHOWS -9.8% WEIGHT LOSS X 6 MONTHS. CHANGE IN FLUID STATUS IS LIKELY CONTRIBUTOR TO WEIGHT LOSS. PATIENT WITH DX CHF AND DIURESED DURING ADM.
--- NOTE | 2024-05-11 11:45 | HO.PM.IMPN ---
Subjective Subjective Date of Service: 05/11/24 Interval History: less dyspnea, still having some minor hemoptysis, no chest pain Review of Systems Review of Systems: Yes all other systems are reviewed and are negative Physical Exam Vital Signs: Vital Signs: Last Vital Signs Temp 97.5 F 05/11/24 07:48 Pulse 89 05/11/24 08:01 Resp 16 05/11/24 08:01 BP 141/73 H 05/11/24 07:48 Pulse Ox 93 05/11/24 07:48 O2 Del Method Room Air 05/11/24 07:48 O2 Flow Rate 2.5 05/11/24 03:10 BMI result Body Mass Index 28.6 Gen: in no acute distress HEENT: sclera anicteric, moist mucus membranes Neck: supple, JVD present Lungs: bibasilar inspiratory crackles Heart: regular rate and rhythm, no murmurs Abd: soft, non-tender, non-distended Ext: trace bilateral leg edema Skin: warm/well-perfused Neuro: alert and oriented x3, no focal findings Psych: appropriate affect Objective Data Active Medications Acetaminophen (Acetaminophen 325 Mg Tablet) 650 mg PO Q6H PRN PRN Reason: Pain, Mild 1-3,fever,headache Acetaminophen/Butalbital/Caffeine (Butalb/Acetamin/Caff 50/325/40 Tablet) 1 tab PO DAILY PRN PRN Reason: Migraine Headache Al Hydroxide/Mg Hydroxide (Magnesium Hydrox/Alum Hydrox 30 Ml Oral.Susp) 30 ml PO Q4H PRN PRN Reason: Heartburn Apixaban (Apixaban 5 Mg Tablet) 5 mg PO BID [facility] Last Admin: 05/11/24 08:21 Dose: 5 mg Documented By: OTF Atorvastatin Calcium (Atorvastatin Calcium 20 Mg Tablet) 20 mg PO BEDTIME [facility] Last Admin: 05/10/24 20:09 Dose: 20 mg Documented By: CAROL Calcium Carbonate (Calcium Carbonate 750 Mg Tab.Chew) 750 mg PO Q4H PRN PRN Reason: Heartburn Clonazepam (Clonazepam 0.5 Mg Tablet) 0.5 mg PO DAILY PRN PRN Reason: Anxiety Cyanocobalamin (Cyanocobalamin (Vitamin B-12) 1,000 Mcg Tablet) 1,000 mcg PO DAILY [facility] Last Admin: 05/11/24 08:21 Dose: 1,000 mcg Documented By: OTF Diltiazem HCl (Diltiazem Hcl Cd 120 Mg Cap.Er.Deg) 120 mg PO BEDTIME [facility]; Protocol Last Admin: 05/10/24 20:09 Dose: 120 mg Documented By: CAROL Doxazosin Mesylate (Doxazosin Mesylate 2 Mg Tablet) 8 mg PO DAILY [facility] Last Admin: 05/11/24 08:20 Dose: 8 mg Documented By: OTF Empagliflozin (Empagliflozin 10 Mg Tablet) 10 mg PO DAILY [facility] Last Admin: 05/11/24 08:21 Dose: 10 mg Documented By: OTF Epinephrine (Epinephrine 1 Mg/Ml Vial) 0.3 mg IM Q10M PRN PRN Reason: Allergic Reaction Finasteride (Finasteride 5 Mg Tablet) 5 mg PO DAILY [facility] Last Admin: 05/11/24 08:20 Dose: 5 mg Documented By: OTF Fluticasone Propionate (Fluticasone Propionate Nasal 16 Gm [place]) 1 spray NOSTRIL-B BID [facility] Last Admin: 05/11/24 08:29 Dose: 1 spray Documented By: OTF Fluticasone Propionate (Fluticasone Propionate 250 Mcg Blst.W.Dev) 1 puff INHALE RBID [facility] Last Admin: 05/11/24 07:54 Dose: 1 puff Documented By: LD Furosemide (Furosemide 40 Mg/4 Ml Vial) 40 mg IVPUSH DAILY [facility]; Protocol Last Admin: 05/11/24 08:20 Dose: 40 mg Documented By: OTF Melatonin (Melatonin 3 Mg Tablet) 6 mg PO BEDTIME PRN PRN Reason: Insomnia Non-Formulary Medication (Levalbuterol Tartrate) 2 puff INHALE BID PRN PRN Reason: SOB/Wheezing Omeprazole (Omeprazole 40 Mg Capsule.Dr) 40 mg PO DAILY@0630 [facility] Last Admin: 05/11/24 06:07 Dose: 40 mg Documented By: CAROL Ondansetron HCl (Ondansetron Hcl 4 Mg/2 Ml Vial) 4 mg IVPUSH Q8H PRN PRN Reason: Nausea and Vomiting Polyethylene Glycol (Polyethylene Glycol 3350 17 Gm Powd.Pack) 17 gm PO DAILY PRN PRN Reason: Constipation Sodium Chloride (0.9 % Sodium Chloride Flush 3 Ml Syringe) 3 ml IVFLUSH QSHIFT [facility] Last Admin: 05/11/24 08:21 Dose: 3 ml Documented By: OTF Spironolactone (Spironolactone 25 Mg Tablet) 12.5 mg PO DAILY [facility]; Protocol Last Admin: 05/11/24 08:21 Dose: 12.5 mg Documented By: OTF Vitamin D (Cholecalciferol (Vitamin D3) 25 Mcg Tablet) 50 mcg PO DAILY [facility] Last Admin: 05/11/24 08:21 Dose: 50 mcg Documented By: OTF Labs 05/10/24 07:53 05/11/24 06:10 Labs: Laboratory Results - last 24 hr 05/10/24 05/11/24 07:53 06:10 Anion Gap 16 Estim Creat Clear Calc 92.9 Estimated GFR > 60 Random Glucose 131 H Calcium 8.8 Magnesium 2.4 Procalcitonin 0.04 Microbiology Microbiology Results: Microbiology 05/10/24 09:23 Blood Culture - Preliminary Blood - Venous No growth after 24 hours. Assessment and Plan (1) CHF exacerbation: Status: Acute Plan d2 for 69yo M with history bioprosthetic mitral valve replacement/chord repair [2017] with subsequent severe stenosis, persistent atrial flutter on apixaban, ANJELICA on CPAP, HTN, and DM2 presenting with progressive exertional dyspnea, orthopnea, leg edema, and now hemoptysis. Found to have pulmonary edema with cardiogenic pleural effusions related to valvular CHF. acute hypoxic respiratory failure due to acute decompensated heart failure [acute/chronic HFpEF, valvular CHF] - continue diuresis with IV furosemide [negative 1545 mL thus far]; monitor BNP, lytes, I/O, weight. Cardiology following and in discussion with [facility] to see if valve replacement can be expedited. Continue empagliflozin and spironolactone. persistent atrial flutter - continue apixaban and diltiazem asthma/COPD overlap not in acute exac - continue prn nebs, inhaled steroid prostatism - continue finasteride, terazosin DM2 - continue correction-dose lispro, empagliflozin; hold MTF VTE prophylaxis - apixaban dispo - possibly [facility] In my clinical judgment, the patient requires continued inpatient hospitalization for the following reasons: IV diuresis Total time managing care of this patient today: 45 minutes. Quality Stroke Does the patient have a stroke diagnosis?: No VTE Prior VTE?: No VTE Risk Level:: Medical - moderate - high VTE Device Contraindication: N/A - Device Ordered VTE Drug Contraindication: N/A - Med Ordered
[2024-05-11] MEDS: Atorvastatin Calcium 20 MG TABLET PO (20:50)
[2024-05-11] MEDS: dilTIAZem HCL CD 120 MG CAP.ER.DEG PO (20:50)
[2024-05-12] VITALS: BP 119/75; PULSE 67; RESP 20; TEMP 36.2; O2SAT 94
[2024-05-12 04:00] VITALS: BP 103/58; PULSE 64; RESP 20; TEMP 36.3; O2SAT 91
[2024-05-12] MEDS: Omeprazole 40 MG CAPSULE.DR PO (06:16)
[2024-05-12 07:34] VITALS: BP 117/69; PULSE 68; RESP 20; TEMP 36.7; O2SAT 97
[2024-05-12 07:48] LABS: Anion Gap 16 (12-20); Blood Urea Nitrogen 27 mg/dL (9-16); Carbon Dioxide 23 mmol/L (22-29); Chloride 104 mmol/L (96-108); Creatinine Clr Calc Pharmacy 92.9; Estimated Glomerular Filt Rate > 60; Glucose Random 129 mg/dL (60-115); Magnesium 2.3 mg/dL (1.6-2.6); Potassium 3.3 mmol/L (3.3-5.1); Sodium 140 mmol/L (135-145)
[2024-05-12] MEDS: Fluticasone Propionate 250 MCG BLST.W.DEV 1 PUFF INHALE (08:29)
[2024-05-12 08:35] VITALS: PULSE 67; RESP 18; O2SAT 95
[2024-05-12] MEDS: Doxazosin Mesylate 2 MG TABLET 8 MG PO (09:21)
[2024-05-12] MEDS: Spironolactone 25 MG TABLET 12.5 MG PO (09:22)
[2024-05-12] MEDS: Apixaban 5 MG TABLET PO (09:22)
[2024-05-12] MEDS: Cholecalciferol (Vitamin D3) 25 MCG TABLET 50 MCG PO (09:22)
[2024-05-12] MEDS: Finasteride 5 MG TABLET PO (09:22)
[2024-05-12] MEDS: Empagliflozin 10 MG TABLET PO (09:23)
[2024-05-12] MEDS: Cyanocobalamin (Vitamin B-12) 1,000 MCG TABLET 1000 MCG PO (09:23)
[2024-05-12] MEDS: 0.9 % Sodium Chloride Flush 3 ML SYRINGE IVFLUSH ×2 (09:27)
[2024-05-12] MEDS: Fluticasone Propionate Nasal 16 GM SPRAY 1 SPRAY NOSTRIL-B (09:28)
--- NOTE | 2024-05-12 11:07 | HO.PM.IMPN ---
Subjective Subjective Date of Service: 05/12/24 Interval History: breathing much improved HR drops at night to 30s-40s no chest pain Review of Systems Review of Systems: Yes all other systems are reviewed and are negative Physical Exam Vital Signs: Vital Signs: Last Vital Signs Temp 98.1 F 05/12/24 07:34 Pulse 67 05/12/24 08:35 Resp 18 05/12/24 08:35 BP 117/69 05/12/24 07:34 Pulse Ox 97 05/12/24 07:34 O2 Del Method Nasal Cannula 05/12/24 07:34 O2 Flow Rate 3 05/12/24 07:34 BMI result Body Mass Index 28.6 Gen: in no acute distress HEENT: sclera anicteric, moist mucus membranes Neck: supple, no JVD Lungs: clear bilaterally Heart: regular rate and rhythm, no murmurs Abd: soft, non-tender, non-distended Ext: no edema Skin: warm/well-perfused Neuro: alert and oriented x3, no focal findings Psych: appropriate affect Objective Data Active Medications Acetaminophen (Acetaminophen 325 Mg Tablet) 650 mg PO Q6H PRN PRN Reason: Pain, Mild 1-3,fever,headache Acetaminophen/Butalbital/Caffeine (Butalb/Acetamin/Caff 50/325/40 Tablet) 1 tab PO DAILY PRN PRN Reason: Migraine Headache Al Hydroxide/Mg Hydroxide (Magnesium Hydrox/Alum Hydrox 30 Ml Oral.Susp) 30 ml PO Q4H PRN PRN Reason: Heartburn Albuterol Sulfate (Albuterol Sulfate 90 Mcg 8 Gm Inhaler) 2 puff INHALE BID PRN PRN Reason: SOB/Wheezing Apixaban (Apixaban 5 Mg Tablet) 5 mg PO BID [facility] Last Admin: 05/12/24 09:22 Dose: 5 mg Documented By: AGATHA Atorvastatin Calcium (Atorvastatin Calcium 20 Mg Tablet) 20 mg PO BEDTIME [facility] Last Admin: 05/11/24 20:50 Dose: 20 mg Documented By: PAPA Calcium Carbonate (Calcium Carbonate 750 Mg Tab.Chew) 750 mg PO Q4H PRN PRN Reason: Heartburn Clonazepam (Clonazepam 0.5 Mg Tablet) 0.5 mg PO DAILY PRN PRN Reason: Anxiety Cyanocobalamin (Cyanocobalamin (Vitamin B-12) 1,000 Mcg Tablet) 1,000 mcg PO DAILY [facility] Last Admin: 05/12/24 09:23 Dose: 1,000 mcg Documented By: AGATHA Diltiazem HCl (Diltiazem Hcl Cd 120 Mg Cap.Er.Deg) 120 mg PO BEDTIME [facility]; Protocol Last Admin: 05/11/24 20:50 Dose: 120 mg Documented By: PAPA Doxazosin Mesylate (Doxazosin Mesylate 2 Mg Tablet) 8 mg PO DAILY [facility] Last Admin: 05/12/24 09:21 Dose: 8 mg Documented By: AGATHA Empagliflozin (Empagliflozin 10 Mg Tablet) 10 mg PO DAILY [facility] Last Admin: 05/12/24 09:23 Dose: 10 mg Documented By: AGATHA Epinephrine (Epinephrine 1 Mg/Ml Vial) 0.3 mg IM Q10M PRN PRN Reason: Allergic Reaction Finasteride (Finasteride 5 Mg Tablet) 5 mg PO DAILY [facility] Last Admin: 05/12/24 09:22 Dose: 5 mg Documented By: AGATHA Fluticasone Propionate (Fluticasone Propionate Nasal 16 Gm [place]) 1 spray NOSTRIL-B BID [facility] Last Admin: 05/12/24 09:28 Dose: 1 spray Documented By: AGATHA Fluticasone Propionate (Fluticasone Propionate 250 Mcg Blst.W.Dev) 1 puff INHALE RBID [facility] Last Admin: 05/12/24 08:29 Dose: 1 puff Documented By: ERNESTO Furosemide (Furosemide 40 Mg/4 Ml Vial) 40 mg IVPUSH DAILY [facility]; Protocol Last Admin: 05/11/24 08:20 Dose: 40 mg Documented By: OTF Melatonin (Melatonin 3 Mg Tablet) 6 mg PO BEDTIME PRN PRN Reason: Insomnia Omeprazole (Omeprazole 40 Mg Capsule.Dr) 40 mg PO DAILY@0630 [facility] Last Admin: 05/12/24 06:16 Dose: 40 mg Documented By: PAPA Ondansetron HCl (Ondansetron Hcl 4 Mg/2 Ml Vial) 4 mg IVPUSH Q8H PRN PRN Reason: Nausea and Vomiting Polyethylene Glycol (Polyethylene Glycol 3350 17 Gm Powd.Pack) 17 gm PO DAILY PRN PRN Reason: Constipation Sodium Chloride (0.9 % Sodium Chloride Flush 3 Ml Syringe) 3 ml IVFLUSH QSHIFT [facility] Last Admin: 05/12/24 09:27 Dose: 3 ml Documented By: AGATHA Spironolactone (Spironolactone 25 Mg Tablet) 12.5 mg PO DAILY [facility]; Protocol Last Admin: 05/12/24 09:22 Dose: 12.5 mg Documented By: AGATHA Vitamin D (Cholecalciferol (Vitamin D3) 25 Mcg Tablet) 50 mcg PO DAILY [facility] Last Admin: 05/12/24 09:22 Dose: 50 mcg Documented By: AGATHA Labs 05/10/24 07:53 05/12/24 07:20 Labs: Laboratory Results - last 24 hr 05/12/24 07:20 Anion Gap 16 Estim Creat Clear Calc 92.9 Estimated GFR > 60 Random Glucose 129 H Calcium 9.0 Magnesium 2.3 Microbiology Microbiology Results: Microbiology 05/10/24 10:28 Blood Culture - Preliminary Blood - Venous No growth after 24 hours. 05/10/24 09:23 Blood Culture - Preliminary Blood - Venous No growth after 24 hours. Assessment and Plan (1) CHF exacerbation: Status: Acute Plan d3 for 69yo M with history bioprosthetic mitral valve replacement/chord repair [2017] with subsequent severe stenosis, persistent atrial flutter on apixaban, ANJELICA on CPAP, HTN, and DM2 presenting with progressive exertional dyspnea, orthopnea, leg edema, and now hemoptysis. Found to have pulmonary edema with cardiogenic pleural effusions related to valvular CHF. acute hypoxic respiratory failure due to acute decompensated heart failure [acute/chronic HFpEF, valvular CHF] prosthetic mitral valve stenosis - appears euvolemic after diuresing net negative 1.8L with IV furosemide; change to PO furosemide - Cardiology following and in discussion with [facility] to see if TMVR can be expedited; needs CTA TMVR protocol first at [facility] - continue empagliflozin and spironolactone. persistent atrial flutter - continue apixaban and diltiazem; discuss bradycardia with Cardiology asthma/COPD overlap not in acute exac - continue prn nebs, inhaled steroid prostatism - continue finasteride, terazosin DM2 - continue correction-dose lispro, empagliflozin; hold MTF VTE prophylaxis - apixaban dispo - possibly [facility] In my clinical judgment, the patient requires continued inpatient hospitalization for the following reasons: transfer to [facility] Total time managing care of this patient today: 35 minutes. Quality Stroke Does the patient have a stroke diagnosis?: No VTE Prior VTE?: No VTE Risk Level:: Medical - moderate - high VTE Device Contraindication: N/A - Device Ordered VTE Drug Contraindication: N/A - Med Ordered
[2024-05-12] MEDS: Furosemide 40 MG TABLET PO (11:32)
--- NOTE | 2024-05-12 11:37 | MHC.CM.PN ---
Patient will be transferred to [facility].
[2024-05-12 12:00] VITALS: BP 106/68; PULSE 68; RESP 20; TEMP 36.7; O2SAT 96
--- NOTE | 2024-05-12 12:01 | PM.DS ---
DS: Providers Provider Date of Service: 05/12/24 Date of admission: 05/10/24 14:05 Date of discharge: 05/12/24 Primary care physician: Jamar Atkinson MD Consults: 05/10/24 11:14 Consult to Cardiology Routine Consulting Provider: [facility] Reason for consultation: CHF Has provider been notified: Yes DS: Diagnosis Discharge Diagnosis (1) Acute on chronic diastolic heart failure due to valvular disease: Status: Acute (2) Prosthetic mitral valve stenosis: Status: Acute (3) Atrial flutter: Status: Acute DS: Summary Hospital Course Hospital Course: from my admission H+P, 05/10/24: 69yo M with history bioprosthetic mitral valve replacement/chord repair [2017], persistent atrial flutter on apixaban, ANJELICA on CPAP, HTN, and DM2 presenting with progressive exertional dyspnea, orthopnea, and leg edema over the last 3 days. He could hear crackles in his lungs this morning; these cleared when he sat up. Today he coughed up a small amount of blood. He was noted to be hypoxic and is now on 3L O2 via nasal cannula. No recent medication changes and he endorses compliance with furosemide. He did have a recent meal that was higher in sodium than he would like. CT showed pulmonary edema with bilateral cardiogenic pleural effusions. BNP 232 [was 48 back in February]. He was given 40 mg of IV furosemide and is diuresing copiously now. No fever, chills, cough, or chest pain. The prosthetic mitral valve has been noted to be severely stenosed with area of 1.14 cm2 and mean gradient of 11 mm Hg on recent cardiac catheterization; no significant coronary artery disease. 69yo M with history bioprosthetic mitral valve replacement/chord repair [2017] with subsequent severe stenosis, persistent atrial flutter on apixaban, ANJELICA on CPAP, HTN, and DM2 presenting with progressive exertional dyspnea, orthopnea, leg edema, and now hemoptysis. Found to have pulmonary edema with cardiogenic pleural effusions related to valvular CHF. Admitted to the telemetry unit for acute hypoxic respiratory failure due to acute decompensated valvular heart failure with preserved EF, related to the stenosed mitral valve. Cardiology consulted on the case. We diuresed him with IV furosemide to net negative fluid balance of 1.8L, then placed him back on PO furosemide. In discussion with [facility], he was transferred there for TMVR evalutaion to include a CTA. Time Attestation Discharge Coordination Time (in mins): 45 Quality: Safe Use of Opioids Does Pt have an Active Cancer Diagnosis on the Problem List?: No Quality: Stroke Does the patient have a stroke diagnosis?: No Physical Exam Vital Signs: Vital Signs: Last Vital Signs Temp 98.1 F 05/12/24 07:34 Pulse 67 05/12/24 08:35 Resp 18 05/12/24 08:35 BP 117/69 05/12/24 07:34 Pulse Ox 97 05/12/24 07:34 O2 Del Method Nasal Cannula 05/12/24 07:34 O2 Flow Rate 3 05/12/24 07:34 BMI result Body Mass Index 28.6 Gen: in no acute distress HEENT: sclera anicteric, moist mucus membranes Neck: supple, no JVD Lungs: clear bilaterally Heart: regular rate and rhythm, no murmurs Abd: soft, non-tender, non-distended Ext: no edema Skin: warm/well-perfused Neuro: alert and oriented x3, no focal findings Psych: appropriate affect DS: Data Data Completed and Pending Completed studies during hospitalization [Text1]: Laboratory Results WBC 7.5 X10*3/uL (4.8-10.8) 05/10/24 07:53 RBC 4.08 X10*6/uL (4.60-5.80) L 05/10/24 07:53 Hgb 12.3 g/dl (14.0-18.0) L 05/10/24 07:53 Hct 36.7 % (42.0-52.0) L 05/10/24 07:53 MCV 90.0 fL (80.0-98.0) 05/10/24 07:53 MCH 30.1 pg (27.0-33.0) 05/10/24 07:53 MCHC 33.5 g/dl (31.0-36.0) 05/10/24 07:53 RDW 14.6 % (11.0-16.0) 05/10/24 07:53 Plt Count 99 X10*3/uL (160-400) L 05/10/24 07:53 MPV 10.0 fL (9.4-12.4) 05/10/24 07:53 Immature Gran % (Auto) 0.3 % (0.0-0.4) 05/10/24 07:53 Neut % (Auto) 83.5 % (45-73) H 05/10/24 07:53 Lymph % (Auto) 7.0 % (20-40) L 05/10/24 07:53 [place] % (Auto) 8.2 % (2-11) 05/10/24 07:53 Eos % (Auto) 0.7 % (0-4) 05/10/24 07:53 Baso % (Auto) 0.3 % (0-2) 05/10/24 07:53 Lymph # (Auto) 0.5 X10*3/uL (1.2-4.9) L 05/10/24 07:53 [place] # (Auto) 0.6 X10*3/uL (0.1-1.2) 05/10/24 07:53 Eos # (Auto) 0.1 X10*3/uL (0.0-0.4) 05/10/24 07:53 Baso # (Auto) 0.0 X10*3/uL (0.0-0.2) 05/10/24 07:53 Abs Immat Gran (auto) 0.02 X10*3/uL (0.00-0.03) 05/10/24 07:53 Absolute Neuts (auto) 6.3 x10*3/uL (2.0-8.3) 05/10/24 07:53 Absolute Nucleated RBC 0.000 X10*3/uL (0.0-0.012) 05/10/24 07:53 Nucleated RBC % (auto) 0.0 /100WBC (0.0-0.2) 05/10/24 07:53 PT 22.9 SEC (10.9-12.4) H D 05/10/24 07:53 INR 2.0 (0.9-1.1) H 05/10/24 07:53 Sodium 140 mmol/L (135-145) 05/12/24 07:20 Potassium 3.3 mmol/L (3.3-5.1) 05/12/24 07:20 Chloride 104 mmol/L (96-108) 05/12/24 07:20 Carbon Dioxide 23 mmol/L (22-29) 05/12/24 07:20 Anion Gap 16 (12-20) 05/12/24 07:20 BUN 27 mg/dL (9-16) H 05/12/24 07:20 Creatinine 0.80 mg/dL (0.5-1.4) 05/12/24 07:20 Estim Creat Clear Calc 92.9 05/12/24 07:20 Estimated GFR > 60 05/12/24 07:20 Random Glucose 129 mg/dL (60-115) H 05/12/24 07:20 Lactic Acid 1.1 mmol/L (0.5-2.0) 05/10/24 09:23 Calcium 9.0 mg/dL (8.4-10.2) 05/12/24 07:20 Magnesium 2.3 mg/dL (1.6-2.6) 05/12/24 07:20 Total Bilirubin 1.6 mg/dL (0.0-1.0) H 05/10/24 07:53 AST 18 U/L (5-37) 05/10/24 07:53 ALT 12 U/L (0-40) 05/10/24 07:53 Alkaline Phosphatase 52 U/L (39-117) 05/10/24 07:53 Troponin I High Sens 21.3 ng/L (<3.5-35.0) D 05/10/24 07:54 B-Natriuretic Peptide pg/mL (<100) 05/11/24 06:10 Total Protein 6.6 g/dL (6.5-8.0) 05/10/24 07:53 Albumin 3.6 g/dL (3.5-5.0) 05/10/24 07:53 Procalcitonin 0.04 ng/mL 05/10/24 07:53 Urine Color Yellow 05/10/24 08:14 Urine Appearance Clear 05/10/24 08:14 Urine pH 5.0 (5.0-9.0) 05/10/24 08:14 Ur Specific [place] 1.010 (1.005-1.025) 05/10/24 08:14 Urine Protein Negative mg/dL (Neg-Trace) 05/10/24 08:14 Urine Glucose (UA) >=1000 mg/dL (Negative) H 05/10/24 08:14 Urine Ketones Negative mg/dL (Negative) 05/10/24 08:14 Urine Blood Negative (Negative) 05/10/24 08:14 Urine Nitrite Negative (Negative) 05/10/24 08:14 Ur Leukocyte Esterase Negative (Negative) 05/10/24 08:14 Urine RBC 0-2 /HPF (0-2) 05/10/24 08:14 Urine WBC 0-5 /HPF (0-5) 05/10/24 08:14 Ur Squamous Epith Cells 0-2 /HPF (0-2) 05/10/24 08:14 Urine Bacteria None Seen (None Seen) 05/10/24 08:14 Hyaline Casts 0-2 /LPF (0-2) 05/10/24 08:14 Influenza Type A (PCR) NEGATIVE (Negative) 05/10/24 07:53 Influenza Type B (PCR) NEGATIVE (Negative) 05/10/24 07:53 RSV RNA Qual (PCR) NEGATIVE (Negative) 05/10/24 07:53 SARS-CoV-2 RNA (RT-PCR) NEGATIVE (Negative) 05/10/24 07:53 Impressions Chest X-Ray 05/10/24 08:08 IMPRESSION: Pulmonary edema and bilateral pleural effusions, small to moderate volume. Underlying inflammatory versus infectious process should be considered in the correct clinical settings. Electronically signed by: Elio Rosa MD 05/10/2024 08:20 AM EST RP Chest CTA 05/10/24 09:06 IMPRESSION: No acute pulmonary artery emboli. No thoracic aortic aneurysm. Concerning pulmonary edema and bilateral pleural effusions, small to moderate volume likely cardiogenic. Superimposed inflammatory infectious process in the left upper lung lobe cannot be excluded. Follow-up until resolution. Diverticular disease. Fleischner guidelines were followed. Electronically signed by: Elio Rosa MD 05/10/2024 01:24 PM EST RP Discharge Plan Discharge Anticipated Discharge Date/Time: 05/12/24 11:29 Patient Disposition: Xfer Acute Care Hospital Discharge Diagnosis: CHF exacerbation from prosthetic mitral valve stenosis Referrals: [facility] [Other] - 1 Week Jamar Atkinson MD [Primary Care Provider] - 1 Week Discharge Medications: Continued Jardiance 10 mg tablet 10 mg PO DAILY Qty: 90 3RF terazosin 10 mg Capsule 10 mg PO DAILY furosemide 40 mg Tablet 40 mg PO DAILY Qty: 90 0RF Protocol: Hold for SBP< HOLD for SBP < : 90 spironolactone 25 mg tablet 12.5 mg PO DAILY Qty: 90 5RF levalbuterol tartrate 45 mcg/actuation HFA aerosol inhaler 2 puff inhalation BID PRN (Reason: SOB/Wheezing) diltiazem HCl 120 mg capsule,extended release 24hr 120 mg PO BEDTIME Rx Instructions: Stop Amiodarone, Start Diltiazem cyanocobalamin (vitamin B-12) 100 mcg Tablet 100 mcg PO DAILY fluticasone propionate [Flonase Allergy Relief] 50 mcg/actuation spray,suspension 1 spray intranasal BID omeprazole 20 mg capsule,delayed release(DR/EC) 40 mg PO DAILY@0630 cholecalciferol (vitamin D3) 25 mcg (1,000 unit) capsule 50 mcg PO DAILY saw palmetto 160 mg capsule 160 mg PO DAILY Rx Instructions: give with food (meal/snack) Asmanex Twisthaler 220 mcg/ actuation (30) aerosol powdr breath activated 2 inh inhalation BID finasteride 5 mg tablet 5 mg PO DAILY clonazepam 0.5 mg tablet 0.5 mg PO DAILY PRN (Reason: Anxiety) epinephrine [EpiPen] 0.3 mg/0.3 mL auto-injector 0.3 mg IM Q10M PRN (Reason: Allergic Reaction) Rx Instructions: for 2 doses kwndtilxdz-oibmjzhvyvzwj-ragt 50-325-40 mg tablet 1 tab PO DAILY PRN (Reason: Migraine Headache) atorvastatin 20 mg tablet 20 mg PO BEDTIME semaglutide (weight loss) 0.5 mg/0.5 mL pen injector 1 mg subcut CHASE Rx Instructions: administer weeks 5 through 8 of therapy Eliquis 5 mg tablet 5 mg PO BID tadalafil [Cialis] 5 mg tablet 5 mg PO BEDTIME Held metformin 750 mg tablet extended release 24 hr 750 mg PO BID Hold Instructions: Resume on 05/22/24. Rx Instructions: Hold for 3 days Discharge Orders: Discharge Order (Routine); Ordered 05/12/24 Ordered By: Krissy Moncada Diet: diabetic, low sodium Activity on Discharge: As tolerated Stand Alone Forms: Patient Portal Discharge page Print Language: Stateless Care Plan Goals: cardiac health Health Concerns: CHF exacerbation from prosthetic mitral valve stenosis Plan of Treatment: continue furosemide, PO now transfer to [facility] for TMVR evaluation follow up with Cardiolgy afterwards Please follow up with your primary care doctor within 1 week. Return to the hospital if you experience recurrent or worsening symptoms. Assessment: See Discharge Summary.
--- NOTE | 2024-05-12 12:14 | P.PNCA_ITS ---
Subjective Subjective Date of Service: 05/12/24 Interval history: Seen examined at bedside. Doing well. Physical Exam Vital Signs: Last Vital Signs Temp 98.1 F 05/12/24 12:00 Pulse 68 05/12/24 12:00 Resp 20 05/12/24 12:00 BP 106/68 05/12/24 12:00 Pulse Ox 96 05/12/24 12:00 O2 Del Method Nasal Cannula 05/12/24 12:00 O2 Flow Rate 3 05/12/24 12:00 BMI result Body Mass Index 28.6 GENERAL APPEARANCE: On supplemental oxygen. NECK: no carotid bruit, no jugular venous distention. SKIN: no suspicious lesions, warm and dry. HEART: no obvious murmur, regular rate and rhythm. LUNGS: Few crackles at bases. ABDOMEN: soft, nontender. EXTREMITIES: Mild edema. PERIPHERAL PULSES: equal. NEUROLOGIC: No gross deficits, AAO X 3 Objective Labs and Meds 05/10/24 07:53 05/12/24 07:20 Lab results: Laboratory Results - last 24 hr 05/11/24 05/12/24 06:10 07:20 Sodium 140 Potassium 3.3 Chloride 104 Carbon Dioxide 23 Anion Gap 16 BUN 27 H Creatinine 0.80 Estim Creat Clear Calc 92.9 Estimated GFR > 60 Random Glucose 129 H Calcium 9.0 Magnesium 2.3 B-Natriuretic Peptide Progress Note: A&P Assessment and plan (1) Acute on chronic diastolic heart failure due to valvular disease: Status: Acute Plan [age] year gentleman with acute on chronic diastolic heart failure in the setting of prosthetic mitral valve stenosis. Diuresed and clinically euvolemic. Continue diuretics with Lasix 40 mg p.o. b.i.d.. Continue diltiazem. He is on Eliquis 5 mg twice a day for anticoagulation for atrial flutter or atrial fibrillation. We will arrange a bed at [facility] for transfer so he can get TMVR protocol CT. This will be required for transcatheter mitral valve replacement for him because he is not a good surgical candidate as per discussion with Cardiothoracic surgery. Thank you for allowing me to participate in the care of your patient. Please feel free to contact me if you have any questions. Time Spent With Patient Time: Total time managing care of this patient today ____ minutes. Progress Note: Quality Stroke Does the patient have a stroke diagnosis?: No Procedures Date of Service Date of Service: 05/12/24
== END 2024-05-12 16:30 | disposition short-term general hospital (02) | DRG 291 ==
LOC: HO.ED 13:06 → HO.EDOVER 14:08 → HO.IMC 14:53
PROVIDERS: Admitting Provider Family Medicine; Emergency Provider Emergency Medicine; PCP Internal Medicine; Visit Provider Family Medicine
DX: I11.0 Hypertensive heart disease with heart failure (principal); I50.33 Acute on chronic diastolic (congestive) heart failure; J96.01 Acute respiratory failure with hypoxia; T82.857A Stenosis of other cardiac prosthetic devices, implants and grafts, initial encounter; I48.92 Unspecified atrial flutter; R04.2 Hemoptysis; E11.9 Type 2 diabetes mellitus without complications; J44.9 Chronic obstructive pulmonary disease, unspecified; N40.0 Benign prostatic hyperplasia without lower urinary tract symptoms; Y71.8 Miscellaneous cardiovascular devices associated with adverse incidents, not elsewhere classified; G47.33 Obstructive sleep apnea (adult) (pediatric); Z20.822 Contact with and (suspected) exposure to COVID-19; Z79.01 Long term (current) use of anticoagulants; Z79.51 Long term (current) use of inhaled steroids; Z79.899 Other long term (current) drug therapy
CPT/HCPCS: 0241U; 36415; 71046; 71275; 80048; 80053; 81001; 83605; 83735; 83880; 84145; 84484; 85025; 85610; 87040; 93005; 94640; 99285; J1940

== ENCOUNTER → 2024-05-10 08:08 | Outpatient (BNV) | payer MEDICARE, OTHER, SELFPAY | PROVIDERS: Emergency Provider Emergency Medicine; PCP Internal Medicine; Visit Provider Radiology Diagnostic Radiology | DX: J90 Pleural effusion, not elsewhere classified (principal); J81.0 Acute pulmonary edema; K57.32 Diverticulitis of large intestine without perforation or abscess without bleeding | CPT/HCPCS: 71046; 71275 ==

== ENCOUNTER → 2024-05-10 08:11 | Outpatient (BNV) | payer MEDICARE, OTHER, SELFPAY | PROVIDERS: Emergency Provider Emergency Medicine; PCP Internal Medicine; Visit Provider Internal Medicine Cardiovascular Disease | DX: I50.33 Acute on chronic diastolic (congestive) heart failure (principal); T82.857A Stenosis of other cardiac prosthetic devices, implants and grafts, initial encounter; I38 Endocarditis, valve unspecified | CPT/HCPCS: 93010; 99223; 99233 ==

== ENCOUNTER → 2024-05-10 14:05 | Outpatient (BNV) | payer MEDICARE, OTHER, SELFPAY | PROVIDERS: Admitting Provider Family Medicine; Emergency Provider Emergency Medicine; PCP Internal Medicine; Visit Provider Family Medicine | DX: J96.01 Acute respiratory failure with hypoxia (principal); I50.33 Acute on chronic diastolic (congestive) heart failure; Z95.3 Presence of xenogenic heart valve | CPT/HCPCS: 99223; 99232; 99239 ==

== ENCOUNTER 2024-05-24 14:26 | Outpatient (AMB) | payer OTHER, SELFPAY ==
--- NOTE | 2024-05-24 14:55 | A.OFFVIS_ITS ---
Vital Signs 05/24/24 14:56 Height 5 ft 9 in Weight 196 lb 3.382 oz BMI 29.0 BP 104/60 Blood Pressure Location Lt brachial Position Sitting Pulse 68 Pulse Source Pulse Oximeter Intake Visit Reasons: 6 WK follow up Allergies DUSTIN Inhibitors [Dustin Inhibitors] Allergy (Severe, Verified 05/10/24 07:32) Anaphylaxis aspirin Allergy (Severe, Verified 05/10/24 07:32) Anaphylaxis NSAIDS (Non-Steroidal Anti-Inflamma [NSAIDS (NON-STEROIDAL ANTI-INFLAMMA] Allergy (Severe, Verified 05/10/24 07:32) Anaphylaxis pineapple [PINEAPPLE] Allergy (Severe, Verified 05/10/24 07:32) Angioedema thimerosal [Thimerosal] Allergy (Severe, Verified 05/10/24 07:32) Angioedema Cephalosporins [CEPHALOSPORINS] Allergy (Intermediate, Verified 05/10/24 07:32) Rash fluoxetine [From PROZAC] Allergy (Intermediate, Verified 05/10/24 07:32) REQUIRED HOSPITALIZATION Penicillins Allergy (Intermediate, Verified 05/10/24 07:32) Rash tamsulosin Allergy (Mild, Verified 05/10/24 07:32) tacycardia aspartame [ASPARTAME] Allergy (Unknown, Verified 05/10/24 07:32) Unknown hexachlorophene [From PHISOHEX] Allergy (Unknown, Verified 05/10/24 07:32) Unknown melon Allergy (Unknown, Verified 05/10/24 07:32) Unknown perfume Allergy (Unknown, Verified 05/10/24 07:32) Unknown povidone-iodine [From BETADINE] Allergy (Unknown, Verified 05/10/24 07:32) Unknown soap [Betadine] Allergy (Unknown, Verified 05/10/24 07:32) Unknown codeine [Codeine] Adverse Reaction (Intermediate, Verified 05/10/24 07:32) wakes up combative meperidine [From Demerol] Adverse Reaction (Intermediate, Verified 05/10/24 07:32) Hallucinations monosodium glutamate Adverse Reaction (Intermediate, Verified 05/10/24 07:32) Headache morphine Adverse Reaction (Intermediate, Verified 05/10/24 07:32) wakes up combative dexon Allergy (Unknown, Uncoded 04/13/24 10:15) Unknown GLUE IN SHOES Allergy (Unknown, Uncoded 04/13/24 10:15) UNKNOWN PLASTIC TAPE Allergy (Unknown, Uncoded 04/13/24 10:15) skin problems POLYGLACTIC ACID(DEXON & VICRYL) Allergy (Unknown, Uncoded 04/13/24 10:15) UNKNOWN vicryl Allergy (Unknown, Uncoded 04/13/24 10:15) Unknown Medication List - Last Reconciled 05/24/24 by James Fernando MD apixaban (Eliquis) 5 mg PO BID atorvastatin 20 mg PO BEDTIME hbepbxmwrg-hesbbvhdsjmqn-irbh 50-325-40 mg 1 tab PO DAILY PRN cholecalciferol (vitamin D3) 50 mcg PO DAILY clonazepam 0.5 mg PO DAILY PRN cyanocobalamin (vitamin B-12) 100 mcg PO DAILY diltiazem HCl CD 120 mg PO BEDTIME empagliflozin (Jardiance) 10 mg PO DAILY epinephrine (EpiPen) 0.3 mg IM Q10M PRN finasteride 5 mg PO DAILY fluticasone propionate 50 mcg/actuation (Flonase Allergy Relief) 1 spray intranasal BID furosemide 40 mg See Protocol PO DAILY levalbuterol tartrate 45 mcg/actuation 2 puffs inhalation BID PRN metformin ER 750 mg PO BID mometasone (Asmanex Twisthaler) 2 inhalations inhalation BID omeprazole 40 mg PO DAILY@0630 saw palmetto 160 mg PO DAILY semaglutide (weight loss) 1 mg subcut CHASE spironolactone 12.5 mg (1/2 x 25 mg) PO DAILY tadalafil (Cialis) 5 mg PO BEDTIME terazosin 10 mg PO DAILY HPI Comments Details: Jared comes for follow-up. He was admitted again in end of April with decompensated congestive heart failure. Was seen by Cardiovascular surgery and was felt to be high risk for redo mitral valve surgery and was referred for transcatheter mitral valve replacement. He has been evaluated for the same by Dr. Mayes and is awaiting scheduling of the procedure. He continues to be in atrial flutter. He is currently on full oral anticoagulation with Eliquis. He has self withheld his Jardiance and Ozempic for potential surgery upcoming under general anesthesia. He has had no bleeding issues or neurologic events. However he remains highly symptomatic and has progressively significant shortness of breath. Also complains of lightheadedness. This affects his quality of life. He has noted leg swelling. Currently only on Lasix 40 mg once a day. Denies any palpitations. He has no syncopal episodes. [facility] Medical History Atrial flutter Elevated cholesterol History of GI diverticular bleed BPH (benign prostatic hyperplasia) History of blood transfusion GERD (gastroesophageal reflux disease) Type 2 diabetes mellitus Depression with anxiety PTSD (post-traumatic stress disorder) Migraine COPD, mild Asthma HTN (hypertension) Obstructive sleep apnea Enlarged RV (right ventricle) Mitral regurgitation Surgical History History of esophagogastroduodenoscopy (EGD) H/O colonoscopy History of excision of lesion (06/25/22) History of arthroscopy of right knee History of left inguinal hernia repair History of repair of right rotator cuff History of repair of left rotator cuff History of mitral valve replacement S/P MVR (mitral valve replacement) Hx of cardiac cath Family History Father Rheumatic fever Mother No problems noted. 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, 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 Review of Systems Const Denies weakness ENT Denies dizziness Card Denies chest pain, Denies chest pain with activity, Denies syncope, Denies rapid heart rate, Denies pedal edema, Denies edema, Denies leg edema, Denies lightheadedness, Denies palpitations, Denies dyspnea, Denies dyspnea on exertion and Denies orthopnea Resp Denies cough, Denies dyspnea and Denies dyspnea on exertion GI Denies hematochezia and Denies change in stool character Musc Denies abnormal gait, Denies muscle cramps, Denies muscle weakness, Denies numbness, Denies radiating pain into limb and Denies tingling Neuro Denies abnormal gait, Denies dizziness, Denies syncope, Denies numbness, Denies tingling and Denies weakness Endo Denies palpitations Physical Exam Vital Signs: Last Vital Signs Pulse 68 05/24/24 14:56 BP 104/60 05/24/24 14:56 BMI result Body Mass Index 29.0 Const General: cooperative, healthy appearing, comfortable and no acute distress Orientation/consciousness: patient oriented x3 Neck Neck: Yes normal visual inspection Resp Effort & Inspection: normal respiratory effort Auscultation: clear to auscultation bilaterally, no rales, no rhonchi and no wheezes Cardio Jugular venous distension: no JVD Rate: regular rate Rhythm: abnormal rhythm Heart sounds: S1 normal heart sound present, S2 normal heart sound present, no murmurs and no rubs Neuro General: patient oriented x3 Extrem Other: sock marking present General: Yes normal to inspection Psych Appearance: grossly normal Mental Status: mental status grossly normal Speech and movement: Normal speech and movement present Assessment & Plan Assessment & Plan (1) Acute on chronic diastolic heart failure due to valvular disease: Code(s): I50.33 - Acute on chronic diastolic (congestive) heart failure; I38 - Endocarditis, valve unspecified Category: Medical Plan: Patient with persistent symptoms of shortness of breath with exertion and fluid overload related to prosthetic valve stenosis. He is highly symptomatic. Advised him to increase his Lasix to 40 mg b.i.d. along with Aldactone therapy. Agree to hold Jardiance for now for possible potential interventional plan under general anesthesia. Plan is for mitral valve replacement as soon as possible. Management was discussed. Advised that he will continue to require diuretic regimen post procedure but closely monitored. (2) Prosthetic mitral valve stenosis: Code(s): T82.857A - Stenosis of other cardiac prosthetic devices, implants and grafts, initial encounter Category: Medical Plan: Prosthetic mitral valve stenosis with severe stenosis with most recent DOREEN at [facility] showing a mean gradient of 60 mm Hg. There is significant progression to his mitral valve stenosis. He is not considered to be a good surgical candidate due to redo surgery and higher risk. Is scheduled to undergo transcatheter mitral valve replacement by interventional team. He is awaiting response with them. Continue full oral anticoagulation with Eliquis. SBE prophylaxis as per ACC/[facility] guidelines. Heart failure management as above. (3) Atrial flutter: Code(s): I48.92 - Unspecified atrial flutter Category: Medical Qualifiers: Atrial flutter type: typical Qualified Code(s): I48.3 - Typical atrial flutter Plan: Persistent atrial flutter, this is not going to resolve with transcatheter mitral valve replacement. May need to consider either ablation and/or repeat cardioversion amiodarone therapy. 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 Continue full oral anticoagulation Eliquis. Greater than 40 minutes was spent. Medications: On Hold empagliflozin (Jardiance) Hold Comment: Doctor's Order 10 mg PO DAILY 90 tabs 3RF Coding Level of Care Code Est Pt Level 5 (83877) Complex EM visit Add On G2211 Diagnoses Acute on chronic diastolic heart failure due to valvular disease I50.33; I38 Prosthetic mitral valve stenosis T82.857A Typical atrial flutter I48.3 Atrial flutter type: typical
[2024-05-24 14:56] VITALS: BP 104/60; PULSE 68; BMI 29.0
--- OUTSIDE RECORDS SUMMARY | 2024-05-24 16:40 | XMS_ITS | Continuity of Care Document ---
Author Organization [facility] ter Address [address] [place] [id number] Care Team Providers Care Quill Collector Name Role Phone Omer Nath Primary Care Physician [place] [facility] [place]): 05/12/24 - 05/14/[address] [id number] Discharge Disposition: A-D/C Home Attending Physician: Ricardo Patterson MD Admitting Physician: Bozena Bingham MD Referring Physician: Bozena Bingham MD Encounter Type: Disch IP Allergies, Adverse Reactions, Alerts Substance Criticality Severity Reaction Reaction Severity Status morphine Penicillin V potassium Active lisinopril Active Betadine Active Dexone Active Demerol HCl Active Bee Stings Active Other Environmental Allergy 1 Active JARROD inhibitors Activ e thimerosal topical A ctive Other Food Allergy 2 Active penicillin V potassium NSAID Active NSAIDs Thimerosal Active 1VICRYL SUTURES 2MSG, aspartane, pineapple, melons Immunizations Given and Recorded Vaccine Date Status [...] Quantity: 30.0 Unit: tablet Repeat number: 1 Cardizem CD 120 mg/24 hours oral capsule, extended release 120 mg, CD Capsule, By Mouth, 05/14/24 9:00:00 AM EST Start Date: 05/14/24 Stop Date: 05/14/24 Status: Completed Repeat number: 1 DilTIAZem (Eqv-Cardizem CD) 120 mg/24 hours oral capsule, extended release Daily at supper, TAKE ONE CAPSULE BY MOUTH EVERY DAY. STOP AMIODARONE AND START DILTIAZEM Start Date: 05/14/24 Status: Ordered Repeat number: 1 Eliquis 5 [...] Status: Ordered Repeat number: 1 Omeprazole = 40 mg, By Mouth, Daily, 0 Refills, Maintenance, 03/04/17 4:18:09 PM EDT Start Date: 03/04/17 Status: Ordered Repeat number: 1 Ozempic (1 mg dose) 0 Refills, Maintenance, 03/23/24 10:07:00 AM EST, Partial fill upon patient request if the prescription is for a schedule II opioid drug. Start Date: 03/23/24 Status: Ordered Repeat number: 1 Saw Waldron = 320 mg, By Mouth, Daily, 0 [...] terazosin 10 mg oral capsule 10 mg, Capsule, By Mouth, 05/14/24 9:00:00 AM EST Start Date: 05/14/24 Stop Date: 05/14/24 Status: Completed Repeat number: 1 terazosin 10 mg oral capsule 10 mg, 1, capsule, By Mouth, Daily, Refills 0, Maintenance, 08/11/18 9:33:09 AM EDT [...] recent to oldest [Reference Range]: 1 2 3 Height 177 cm (05/14/24 10:20 AM) 177 cm (05/14/24 3:29 AM) 177 cm (05/13/24 8:42 PM) Weight 85.5 kg (05/14/24 6:00 AM) 82.1 kg (05/13/24 5:56 AM) 85 kg (05/12/24 4:48 PM) Oxygen Saturation [94-100 %] 94 % (05/14/24 10:20 AM) 93 % *L* (05/14/24 3:29 AM) 94 % (05/13/24 8:42 PM) Pulse Rate [55-90 bpm] 65 bpm (05/14/24 10:20 AM) 66 bpm (05/14/24 8:52 AM) 67 bpm (05/14/24 3:29 AM) Body Mass Index [18.5-24.99 kg/m2] 26.21 kg/m2 *H* (05/13/24 5:56 AM) 27.13 kg/m2 *H* (05/12/24 4:48 PM) Blood Pressure [90-138/55-84 mm Hg] 121/77mm Hg (05/14/24 10:26 AM) 121/77mm Hg (05/14/24 10:20 AM) 121/72mm Hg (05/14/24 8:52 AM) Respiratory Rate [16-30 br/min] 18 br/min (05/14/24 10:20 AM) 18 br/min (05/13/24 8:42 PM) 18 br/min (05/13/24 4:13 PM) Temperature [96.8-100.4 DegF] 97.8 DegF (05/14/24 10:20 AM) 98.3 DegF (05/14/24 3:29 AM) 97.8 DegF (05/13/24 8:42 PM) Mode of Delivery (Oxygen) Room air (05/14/24 10:20 AM) Room air (05/14/24 3:29 AM) Room air (05/13/24 8:42 PM) Blood pressure sites Arm, left (05/14/24 10:20 AM) Arm, right (05/14/24 3:29 AM) Arm, left (05/13/24 8:42 PM) Temperature Route Oral (05/14/24 10:20 AM) Oral (05/14/24 3:29 AM) Oral (05/13/24 8:42 PM) Dry Weight 85 kg (05/12/24 4:48 PM) Weight Obtained Via Bed scale (05/14/24 6:00 AM) Patient/family stated (05/12/24 4:48 PM) Dry Weight Obtained Via Patient/family s tated (05/12/24 4:48 PM) Social History Social History Type Response Smoking Status Former smoker; Tobac co use times per day: 1 ppd, quit 1996; Number of years: 10; Total pack years: 10; entered on: 04/21/17 Sex Sex Representation Male (finding) History and physical note * Zoila GUTIERREZ, Ray: PERFORM Event Display: History and Physical Hospital Authored Date: [id number] Patient: ??ANDREEA OVIEDO ? Age:??69 Years?Sex:??Male?:??1955?? Chief Complaint/Reason for Consultation shortness of breath History of Present Illness 68-year-old male?? with past medical history of asthma/COPD overlap syndrome not on home oxygen, [id number] type 2 diabetes, GERD, BPH, hyperlipidemia, PTSD, hypertension, ANJELICA on CPAP, mitral regurgitation??s/p bioprosthetic mitral valve with severe stenosis, persistent A-fib/flutter cardioverted in January (when he was admitted??at [facility] for??heart failure exacerbation and??atrial flutter), on anticoagulation with Eliquis,??was recently evaluated by cardiacsurgery team on April 30 for??redo mitral valve surgery??versus transcatheter??mitral valve replacement,??noted to have no significant coronary artery disease on recent cath on March 23, 2024,??presented to [facility] on 05/10/2024??for??shortness of breath.?? He reported??progressive shortness of breath with activity??and orthopnea, leg swelling??and??also noticed??crackles whenhe would lie flat??on his sides.?? He also reported some??blood-tinged phlegm??and was noted to be m ildly hypoxic??on 3 L nasal cannula.?? He reported compliance with his 40 mg??of furosemide and 12.5 mg of spironolactone that he takes every day.?? He did report some??high sodium meal intake.?? At [place] he underwent CTA??of his chest that was??negative for PE,??noted to have concerning??pulmonary edema and bilateral pleural effusion small to moderate volume??thought to be cardiogenic,??no aortic aneurysm was noted.?? BNP was found to be??232??higher than February when it was 48.?? He was diuresed with IV Lasix??to net -1.8 L fluid balance??and was transition to p.o. Lasix today morning.?? Team discussed with cardiology??and recommended??transfer to [facility] for??TMVR evaluation.?On myinterview he is comfortable, denies any chest pain or shortness of breath or palpitation??or orthopnea or PND. ??No fevers or chills or cough or runny nose or sore throat. ??No??confusion or headacheor vision changes or focal weakness. ??No dysuria, urgency or frequency. ??No abdominal pain or constipation or diarrhea or nausea or vomiting. ? Review of Systems All other review of systems were negative with the exception of those noted above in the HPI.?? Objective Measurements?? Height: 177 cm (05/12/24) Weight: 85 kg (05/12/24) Dry Weight: 85 kg (05/12/24) Body Mass Index:??27.13 kg/m2??High (05/12/24) ? Vital Signs?? Temperature: 98.1 DegF (05/12/24 21:17:00) Temperature Route: Oral (05/12/24 21:17:00) Pulse Rate: 66 bpm (05/12/24 21:17:00) Respiratory Rate: 18 br/min (05/12/24 21:17:00) Systolic Blood Pressure: 118 mm Hg (05/12/24 21:17:00) Diastolic Blood Pressure: 71 mm Hg (05/12/24 21:17:00) Blood pressure sites: Arm, left (05/12/24 21:17:00) Mean Arterial Pressure: 87 mm Hg (05/12/24 21:17:00) Pulse Pressure: 47 mm Hg (05/12/24 21:17:00) Oxygen Saturation: 95 % (05/12/24 21:17:00) Mode of Delivery (Oxygen): Room air (05/12/24 21:17:00) Early Warning Score: 2 (05/12/24 21:20:18) ? Intake/Output? No Data Available ? Physical Exam Constitutional: Alert, in no acute distress. Head EENT: Extraocular muscle movement intact.??Moist mucous membranes.?? Neck: Supple. No JVD. Respiratory: Clear to auscultation. No wheezing or crackles. No use of accessory muscles. Cardiovascular: S1S2 regular. ??Murmur present.?? His heart rate is regular on my exam Gastrointestinal: Abdomen soft, non-tender, non-distended. Normal bowel sounds. Genitourinary: No CVA tenderness. Extremities: Trace edema Neurologic: AAOx3, Speech normal. No focal neurological deficits. Skin: No rash. Psychiatric: Normal mood and affect Assessment/Plan Diagnoses 1. ??Prosthetic mitral valve stenosis ??(T82.857A) 2. ??Heart failure with preserved ejection fraction ??(I50.30) 3. ??Atrial flutter ??(I48.92) 4. ??Anticoagulated ??(Z79.01) 5. ??Hypertension ??(I10) 6. ??Hyperlipidemia ??(E78.5) 7. ??Asthma-COPD overlap syndrome ??(J44.89) 8. ??Non-insulin dependent type 2 diabetes mellitus ??(E11.9) 9. ??BPH (benign prostatic hyperplasia) ??(N40.0) 10. ??Atonic bladder ??(N31.2) 11. ??Anxiety ??(F41.9) 12. ??PTSD (post-traumatic stress disorder) ??(F43.10) 13. ??ANJELICA on CPAP ??(G47.33) ?? Prosthetic mitral valve stenosis (T82.857A) ?Associated with??Heart failure with preserved ejection fraction (I50.30),??Atrial flutter (I48.92),??Hypertension (I10),??Hyperlipidemia (E78.5),??Anticoagulated (Z79.01) ? Clinically does not appear to be in volume overload now,??respiratory status??improved??and denies any shortness of breath or orthopnea. - He??was recently evaluated by cardiac surgery team on April 30 for??redo mitral valve surgery??versus transcatheter??mitral valve replacement,??noted to have no significant coronary artery disease on recent cath on March 23, 2024 -Underwent cardioversion??in January??for atrial flutter,??now off of amiodarone??but anticoagulated with Eliquis -Diuresed with IV Lasix??to net 1.8 L??at outside hospital.??CTA??of his chest that was??negative for PE,??noted to have concerning??pulmonary edema and bilateral pleural effusion small to moderate volume??thought to be cardiogenic,??no aortic aneurysm was noted.??BNP was found to be??232??higher th an February when it was 48.? Plan -Cardiology consulted to assist with CT for??TMVR evaluation -Continue Lasix 40 mg p.o. daily,??spironolactone 12.5 mg daily,??magnesium 400 mg daily,??check daily electrolytes and replace as needed. -Discussed with fire management officer since he is not having procedure okay for??continuing Eliquis so we will continue Eliquis 5 mg twice daily -Continue atorvastatin 20 mg daily ?? Asthma-COPD overlap syndrome (J44.89):??Substitute home inhaler Combivent with Breo, albuterol as needed. ?? Non-insulin dependent type 2 diabetes mellitus (E11.9):??Hold metformin while admitted, switch Jardiance to dapagliflozin,??sliding scale insulin with POC glucose check while admitted ?? BPH (benign prostatic hyperplasia) (N40.0) ?Associated with??Atonic bladder (N31.2) ? Continue terazosin, finasteride -Resume tadalafil on discharge ?? Anxiety (F41.9) ?Associated with??PTSD (post-traumatic stress disorder) (F43.10) ? As needed??clonazepam??as he takes at home ?? ANJELICA on CPAP (G47.33):??CPAP ordered ?? GERD, continue PPI Allergies, continue Flonase nasal spray Migraine, resume Fioricet on discharge ?? VTE Prophylaxis:??Eliquis ?VTE Prophylaxis Assessment:??VTE Prophylaxis Ordered ?? Discharge Planning:? Code Status:??Full resuscitation, confirmed with patient ?Order Code Status:??Code Status Ordered ? Estimated Discharge Date ? Histories Allergies Allergies ?(Active and Proposed Allergies Only) Other Environmental Allergy? (Severity: Unknown severity, Onset: Unknown) ?Comments: VICRYL SUTURES Other Food Allergy? (Severity: Unknown severity, Onset: Unknown) ?Comments: MSG, aspartane, pineapple, melons JARROD inhibitors? (Severity: Unknown severity, Onset: Unknown) Bee Stings? (Severity: Unknown severity, Onset: Unknown) Dexone? (Severity: Unknown severity, Onset: Unknown) Betadine? (Severity: Unknown severity, Onset: Unknown) thimerosal topical? (Severity: Unknown severity, Onset: Unknown) NSAIDs? (Severity: Unknown severity, Onset: Unknown) ?Reactions: Thimerosal penicillin V potassium? (Severity: Unknown severity, Onset: Unknown) ?Reactions: NSAID morphine? (Severity: Unknown severity, Onset: Unknown) ?Reactions: Penicillin V potassium Demerol HCl? (Severity: Unknown severity, Onset: Unknown) lisinopril? (Severity: Unknown severity, Onset: Unknown) ? Past Medical History/Problem List Active Problems(19) Anemia BPH (benign prostatic hypertrophy) Decreased hearing of right ear Diabetes mellitus Dyslipidemia Emphysema/COPD Ex-smoker, 1 ppd X10 years, quit 1996 Exposure to lionel gas GERD (gastroesophageal reflux disease) Heart murmur HTN (hypertension) Mitral regurgitation OA (osteoarthritis), s/p right knee Obesity (BMI 37.5 as of 04/21/2017) ANJELICA on CPAP PTSD (post-traumatic stress disorder) Right bundle branch block (RBBB) S/P multiple left inguinal hernia repairs Spondylolisthesis ? Past Surgical History Cardiac catheterization: 04/01/17 DOREEN procedure: 03/06/17 Right Rotator cuff repair: 2014 Arthroscopy of right knee Vasectomy Ganglionectomy of tendon sheath of right wrist Left inguinal Hernia repair ? Social History Tobacco Details:??Former smoker, Tobacco use times per day: 1 ppd, quit 1996. ??10 Number of years:. ??Total pack years: 10. ? Family History No Family History relevant to current presentation ? Medications Home Medications Albuterol/Ipratropium (Combivent Respimat 20 mcg-100 mcg/inh inhalation aerosol)?1?puff(s)?Inhalation?4 times a day apixaban (Eliquis 5 mg oral tablet)?1?tab(s)?5?Milligram?By Mouth?2 times a day Atorvastatin (atorvastatin 20 mg oral tablet)?1?tab(s)?20?Milligram?By Mouth?Daily Cholecalciferol (Vitamin D3)?1,000?International Unit?By Mouth?Daily Clonazepam (clonazePAM 0.5 mg oral tablet)?1?tab(s)?0.5?Milligram?By Mouth Cyanocobalamin (Vitamin B12 1000 mcg oral tablet)?1?tab(s)?1,000?Microgram?By Mouth?Daily Diltiazem?120?Milligram?Daily empagliflozin (Jardiance 10 mg oral tablet)?1?tab(s)?10?Milligram?By Mouth?Daily in AM Finasteride (finasteride 5 mg oral tablet)?1?tab(s)?5?Milligram?By Mouth?Daily Fluticasone Nasal (fluticasone 50 mcg/inh nasal spray)?Daily Furosemide (Lasix 40 mg oral tablet)?40?Milligram?1?tablet?By Mouth?Daily Magnesium Oxide (magnesium oxide 400 mg oral capsule)?1?capsule?400?Milligram?By Mouth?Daily Metformin?750?Milligram?By Mouth?2 times a day Mometasone (Asmanex 220 mcg Inhaler)?Inhalation Montelukast (Singulair 10 mg oral tablet)?10?Milligram?1?tablet?By Mouth?Daily?in the evening Omeprazole?40?Milligram?By Mouth?Daily?20 Saw Waldron?320?Milligram?By Mouth?Daily Spironolactone (spironolactone 25 mg oral tablet)?12.5?Milligram?0.5?tablet?By Mouth?Daily tadalafil?By Mouth?Daily Terazosin (terazosin 10 mg oral capsule)?10?Milligram?1?capsule?By Mouth?Daily atbedtime ? Inpatient Medications Medications (31) Active SCHEDULED: (17) Apixaban 5 mg Tablet (Eliquis) ??5 mg, By Mouth, 2 times a day Atorvastatin 20 mg Tablet (atorvastatin 20 mg oral tablet) ??20 mg, By Mouth, Daily at bedtime Breo Ellipta 100 mcg / 25 mcg Inhaler (Breo Ellipta 100 mcg-25 mcg Inhaler) ??1 puffs, Inhalation, Daily Clonazepam 0.5 mg Tablet (clonazePAM 0.5 mg oral tablet) ??0.5 mg, By Mouth, Daily Dapagliflozin 5 mg Tablet (Dapagliflozin Tablet) ??5 mg, By Mouth, Daily Diltiazem 120 mg/24 hour CD Capsule (Cardizem CD 120 mg/24 hours oral capsule, extended release) ??120 mg, By Mouth, Daily Finasteride 5 mg Tablet (finasteride 5 mg oral tablet) ??5 mg, By Mouth, Daily Fluticasone Propionate 50mcg/inh Nasal Olga (fluticasone 50 mcg/inh nasal spray) ??50 mcg 1 sprays, Nares, Both, Daily Furosemide 40 mg Tablet (Lasix 40 mg oral tablet) ??40 mg, By Mouth, Daily Insulin Lispro 100 units/mL Inj (Insulin LISPRO Sliding Scale) ??2-10 units, Subcutaneous Injection, 3 times a day before meals Magnesium Oxide 400 mg Tablet (magnesium oxide 400 mg oral tablet) ??400 mg, By Mouth, Daily Montelukast 10 mg Tablet (Singulair 10 mg oral tablet) ??10 mg, By Mouth, Daily NaCl 0.9% Flush 3ml (NaCL 0.9% Flush) ??3 mL, IV Push, Every 8 hours Pantoprazole 40 mg EC Tablet (pantoprazole 40 mg oral delayed release tablet) ??40 mg, By Mouth, Daily Spironolactone 25 mg Tablet (spironolactone 25 mg oral tablet) ??12.5 mg, By Mouth, Daily Terazosin 10 mg Capsule (terazosin 10 mg oral capsule) ??10 mg, By Mouth, Daily Vitamin B-12 ??1000 mcg Tablet (Vitamin B12 1000 mcg oral tablet) ??1,000 mcg, By Mouth, Daily CONTINUOUS: (0) PRN: (14) Acetaminophen 325 mg Tablet (Acetaminophen Tablet) ??650 mg, By Mouth, Every 4 hours Albuterol 90mcg/Inhalation Inhaler HFA (albuterol CFC free 90 mcg/inh inhalation aerosol) ??90 mcg 1 puffs, Inhalation, Every 4 hours Dextromethorphan-Guaifenesin 20 mg-200 mg/10 mL Liqu UD (Robitussin DM Liquid) ??10 mL, By Mouth, Every 4 hours Dextrose 50 % Vial (50 mL) (Dextrose 50% Inj Syringe (25Gm)) ??12.5 Gm 25 mL, IV Push Slowly, Every20 minutes Dextrose Inj Syringe (Dextrose 50% Inj Syringe (25Gm)) ??25 Gm, IV Push Slowly, Every 15 minutes Docusate Sodium 100 mg Capsule (Docusate Sodium Capsule) ??100 mg 1 capsule, By Mouth, 2 times a day Glucagon 1 mg Inj (Glucagon Inj) ??1 mg, Intramuscular, Once Glucose 40% Gel (15 Gm) (Glucose Gel) ??15 Gm, By Mouth, Every 20 minutes Glucose 40% Gel (15 Gm) (Glucose Gel) ??30 Gm, By Mouth, Every 20 minutes Melatonin 3 mg Tablet (Melatonin Tablet) ??3 mg, By Mouth, Daily at bedtime NaCl 0.9% Flush 3ml (NaCL 0.9% Flush) ??3 mL, IV Push, Every 8 hours Polyethylene Glycol 17 Gm Powder (MiraLax Powder) ??17 Gm 1 pack/packet, By Mouth, Daily Senna Tablet ??8.6 mg 1 tablet, By Mouth, 2 times a day Simethicone 80 mg Chewable Tablet (Simethicone Tablet) ??80 mg, Chew, 3 times a day ? Results Recent Labs CHEM GENERAL Glucose, POC 132 mg/dL (High)?? 05/12/2024 17:32 ? Cardiology * Event Display: Cardiac Rhythm Strips Authored Date: * Event Display: Cardiac Rhythm Strips Authored Date: Hospital Progress note * Alexandrea Bedolla RN: PERFORM, SIGN, VERIFY Event Display: Progress Note Hospital Authored Date: [id number] Patient: ANDREEA OVIEDO Age: 69 years Sex: Male : 1955 Associated Diagnoses: None Author: Alexandrea Bedolla RN Findings Evaluation Patient A&O x 4, anticitpating discharge today. Aflutter on telemetry. Expected to follow up outpatient for DOREEN. See CIS for complete Assessment. No further needs identified at the time of this note. . * Lyly Brooke RN: PERFORM, SIGN, VERIFY Event Display: Progress Note Hospital Authored Date: [id number] Patient: ANDREEA OVIEDO Age: 69 years Sex: Male : 1955 Associated Diagnoses: None Author: Lyly Brooke RN Findings Problem Related to Alteration in Cardiac Function (new) : Alteration in Cardiac Function/new 05/14/2024 4:00 EST Alteration in Cardiac Status Related to Other: TMVR eval Goals & Outcomes, Cardiac Status Pt will resume/maintain adequate cardiac output, Pt will resume/maintain adequate hemodynamic status, Pt will resume/maintain adequate respiratory function, Pt will resume/maintain intact neuro function, Pt will maintain adequate GI/ function appropriate for pt, Pt will maintain adequate nutrition status, Pt/caregiver will state understanding of diagnosis Cardiac Interventions Implemented Assess/monitor cardiac status, Assess/monitor neuro status, Assess/monitor respiratory status, Document & Monitor O2 Sats; Administer O2 as ordered, Ensure adequate caloric intake, If no bowel movement in 3 days activate bowel regime, Monitor & document daily weight, Prep pt for treatments & procedures, Resolved problem; interventions no longer in effect Goals/Interventions, Cardiac Yes Cardiac, Problem Start 05/13/2024 15:41 Reviewed Plan with, Cardiac Status Patient Patient Progression, Cardiac Status Plan Initiation . Evaluation Assumed care [id number]. A/O x4. VSS. Tele- Aflutter, ray down to 30s- asymptomatic. Pt advised that is not abnormal for him. Room air. No c/o pain or discomfort. Independent in room. Continent of bowel and bladder. Safety maintained, call light within reach. . * Isabela Macdonald RN: PERFORM, SIGN, VERIFY Event Display: Progress Note Hospital Authored Date: [id number] Patient: ANDREEA OVIEDO Age: 69 years Sex: Male : 1955 Associated Diagnoses: None Author: Isabela Macdonald RN Findings Problem Related to Alteration in Cardiac Function (new) : Alteration in Cardiac Function/new 05/13/2024 15:40 EST Alteration in Cardiac Status Related to Other: TMVR eval Goals & Outcomes, Cardiac Status Pt will resume/maintain adequate cardiac output, Pt will resume/maintain adequate hemodynamic status, Pt will resume/maintain adequate respiratory function, Pt will resume/maintain intact neuro function, Pt will maintain adequate GI/ function appropriate for pt, Pt will maintain adequate nutrition status, Pt/caregiver will state understanding of diagnosis Cardiac Interventions Implemented Assess/monitor cardiac status, Assess/monitor neuro status, Assess/monitor respiratory status, Assess for tolerance of IV infusions; verify rate & dose, Document& Monitor O2 Sats; Administer O2 as ordered, If no bowel movement in 3 days activate bowel regime, Monitor & document daily weight, Monitor anticoagulation values, Monitor ECG w/administration of antiarrhythmics (CO 13.420), Obtain 12 Lead ECG and CXR as ordered, Prep pt for treatments & procedures, Teach/encourage deep breath & cough exercises, Teach/encourage use of incentive spirometer, Team conversation regarding appropriate level of care, Turn & reposition Q2 hours per activity restrictions BH Goals/Interventions, Cardiac Yes Cardiac, Problem Start 05/13/2024 15:41 Reviewed Plan with, Cardiac Status Patient, Spouse/significant other Patient Progression, Cardiac Status Plan Initiation . Evaluation A+Ox4. afib on the monitor. lungs clear, room air. independent to the bathroom. trace edema. DOREEN was cancelled d/t farixga and ozempic use, plan to be clears on friday, NPO after midnight and then DOREEN for friday. Heart CT scan this afternoon. no other needs identified at this time. . Consult note * Yakelin GUTIERREZ, Jaylin Nguyen: PERFORM Event Display: Consultation Note Authored Date: Patient: ??ANDREEA OVIEDO ? Age:??69 Years?Sex:??Male?:??1955?? DINAH Lab: I have reviewed the chart, prior TTE and seen the patient/ outside TTE images reviewed. DOREEN for evaluation of # 33 mm bioAVR in 2017 now with symptomatic mitral stenosis, MG 11 mmHg, MVA 1.1cm2. He is suboptimal re-do surgical candidate 2/2 poor visualization at initial surgery, he is being considered for V in V TMVR. His last dose of dapa was yesterday, last dose of ozempic 05/09. He was brought down to the DOREEN suite. Stomach US performed by anesthesia showed significant??residual food. Unable to proceed with anesthesia today. Plan to hold ozempic, dapa. Clear liq diet on Friday, NPO p MN for DOREEN on Thursday 05/17. Communicated with primary team. * Mandy GUTIERREZ, Edwina: PERFORM, MODIFY Event Display: Consultation Note Authored Date: [id number] Patient: ??ANDREEA OVIEDO ? Age:??69 Years?Sex:??Male?:??1955?? History of Present Illness/Interval History In summary patient is a 69-year-old gentleman who had operative repair of his mitral valve regurgitation in 2016, due to challenging anatomy it was replaced with 33 mm bioprosthetic valve, he also has a history of asthma/COPD overlap not on home oxygen, [id number]-rtosciecj type 2 diabetes, GERD, BPH, hyperlipidemia, PTSD, hypertension, ANJELICA on CPAP, persistent A-fib/flutter on anticoagulation with Eliquis who presented to [facility] for evaluation of shortness of breath and some blood tinged phlegm.?? He was found to be in acute hypoxic respiratory failure and was diuresed with IV Lasix and then transition to p.o. Lasix today.?? He was evaluated by Dr. Taylor from [place] [facility] who recommended transferring patient [place] [facility] [place] [place] ?? As per chart review patient is vitally stable blood pressure 114/70, 92% on room air, afebrile.?? Iwent to evaluate patient at bedside, he was sleeping comfortably.?? As per bedside RN patient had no complaints of shortness of breath or chest pain. ?? Patient currently denying any shortness of breath, chest pain, palpitations or any other symptoms. ??He appears euvolemic on exam Review of Systems An extensive review of system was conducted and everything was negative except the ones mentioned above Physical Exam Vitals & Measurements T:??97.6?F?? HR:??67??(Peripheral)?? RR:??18?? BP:??127/77?? SpO2:??92%?? HT:??177??cm?? WT:??82.1??kg?? BMI:??26.21?? Weight lb/oz: 180 lb 16 oz General: Patient in no acute distress?? HEENT: normocephalic, atraumatic Respiratory: bilateral equal air entry, clear to auscultation with no wheezes or crackles. Adequaterespiratory rate and effort on room air.?? CVS: Irregularly irregular. ??Holosystolic murmur. Abdomen: soft, non tender, non distended, bowel sounds present, no organomegaly.?? Extremities: no cyanosis, pulses present and equal bilaterally. . No edema noted b/l.?? Neuro: alert and oriented x3. Cranial nerves II-XII grossly intact. Moving all extremities spontaneously. Normal tones, following simple commands. 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 He was found to be in acute hypoxic respiratory failure and was diuresed with IV Lasix and then transition to p.o. Lasix today.?? He was evaluated by Dr. Taylor from [place] [facility] who recommended transferring patient [place] [facility] [place]. ?? Plan Keep patient n.p.o.??for potential DOREEN. ??Dr. Knott??will look into??his case and decide if patient needs a DOREEN or not CT TMVI protocol ordered Otherwise continue??patient's all other cardiac medications??including p.o. Lasix, Eliquis??and diltiazem. ?? Orders: Echo Transesophageal Allergies JARROD inhibitors Bee Stings Betadine Demerol HCl Dexone NSAIDs??(Thimerosal) Other Environmental Allergy Other Food Allergy lisinopril morphine??(Penicillin V potassium) penicillin V potassium??(NSAID) thimerosal topical Home Medications Albuterol/Ipratropium: 1 puffs, Inhalation, 4 times a day apixaban: 5 mg = 1 tablet, By Mouth, 2 times a day Atorvastatin: 20 mg = 1 tablet, By Mouth, Daily Cholecalciferol: 1,000 International_Units, By Mouth, Daily Clonazepam: 0.5 mg = 1 tablet, By Mouth Cyanocobalamin: 1,000 mcg = 1 tablet, By Mouth, Daily Diltiazem: 120 mg, Daily empagliflozin: 10 mg = 1 tablet, By Mouth, Daily in AM Finasteride: 5 mg = 1 tablet, By Mouth, Daily Fluticasone Nasal: Daily Furosemide: 40 mg = 1 tablet, By Mouth, Daily Magnesium Oxide: 400 mg = 1 capsule, By Mouth, Daily Metformin: 750 mg, By Mouth, 2 times a day Mometasone: Inhalation Montelukast: 10 mg = 1 tablet, By Mouth, Daily, in the evening Omeprazole: 20 mg, By Mouth, Daily Saw [place]ron: 320 mg, By Mouth, Daily semaglutide Spironolactone: 12.5 mg = 0.5 tablet, By Mouth, Daily tadalafil: By Mouth, Daily Terazosin: 10 mg = 1 capsule, By Mouth, Daily at bedtime Hospital Medications Medications (31) Active SCHEDULED: (17) Apixaban 5 mg Tablet (Eliquis) ??5 mg, By Mouth, 2 times a day Atorvastatin 20 mg Tablet (atorvastatin 20 mg oral tablet) ??20 mg, By Mouth, Daily at bedtime Breo Ellipta 100 mcg / 25 mcg Inhaler (Breo Ellipta 100 mcg-25 mcg Inhaler) ??1 puffs, Inhalation, Daily Clonazepam 0.5 mg Tablet (clonazePAM 0.5 mg oral tablet) ??0.5 mg, By Mouth, Daily Dapagliflozin 5 mg Tablet (Dapagliflozin Tablet) ??5 mg, By Mouth, Daily Diltiazem 120 mg/24 hour CD Capsule (Cardizem CD 120 mg/24 hours oral capsule, extended release) ??120 mg, By Mouth, Daily Finasteride 5 mg Tablet (finasteride 5 mg oral tablet) ??5 mg, By Mouth, Daily Fluticasone Propionate 50mcg/inh Nasal Olga (fluticasone 50 mcg/inh nasal spray) ??50 mcg 1 sprays, Nares, Both, Daily Furosemide 40 mg Tablet (Lasix 40 mg oral tablet) ??40 mg, By Mouth, Daily Insulin Lispro 100 units/mL Inj (Insulin LISPRO Sliding Scale) ??2-10 units, Subcutaneous Injection, 3 times a day before meals Magnesium Oxide 400 mg Tablet (magnesium oxide 400 mg oral tablet) ??400 mg, By Mouth, Daily Montelukast 10 mg Tablet (Singulair 10 mg oral tablet) ??10 mg, By Mouth, Daily NaCl 0.9% Flush 3ml (NaCL 0.9% Flush) ??3 mL, IV Push, Every 8 hours Pantoprazole 40 mg EC Tablet (pantoprazole 40 mg oral delayed release tablet) ??40 mg, By Mouth, Daily Spironolactone 25 mg Tablet (spironolactone 25 mg oral tablet) ??12.5 mg, By Mouth, Daily Terazosin 10 mg Capsule (terazosin 10 mg oral capsule) ??10 mg, By Mouth, Daily Vitamin B-12 ??1000 mcg Tablet (Vitamin B12 1000 mcg oral tablet) ??1,000 mcg, By Mouth, Daily CONTINUOUS: (0) PRN: (14) Acetaminophen 325 mg Tablet (Acetaminophen Tablet) ??650 mg, By Mouth, Every 4 hours Albuterol 90mcg/Inhalation Inhaler HFA (albuterol CFC free 90 mcg/inh inhalation aerosol) ??90 mcg 1 puffs, Inhalation, Every 4 hours Dextromethorphan-Guaifenesin 20 mg-200 mg/10 mL Liqu UD (Robitussin DM Liquid) ??10 mL, By Mouth, Every 4 hours Dextrose 50 % Vial (50 mL) (Dextrose 50% Inj Syringe (25Gm)) ??12.5 Gm 25 mL, IV Push Slowly, Every20 minutes Dextrose Inj Syringe (Dextrose 50% Inj Syringe (25Gm)) ??25 Gm, IV Push Slowly, Every 15 minutes Docusate Sodium 100 mg Capsule (Docusate Sodium Capsule) ??100 mg 1 capsule, By Mouth, 2 times a day Glucagon 1 mg Inj (Glucagon Inj) ??1 mg, Intramuscular, Once Glucose 40% Gel (15 Gm) (Glucose Gel) ??15 Gm, By Mouth, Every 20 minutes Glucose 40% Gel (15 Gm) (Glucose Gel) ??30 Gm, By Mouth, Every 20 minutes Melatonin 3 mg Tablet (Melatonin Tablet) ??3 mg, By Mouth, Daily at bedtime NaCl 0.9% Flush 3ml (NaCL 0.9% Flush) ??3 mL, IV Push, Every 8 hours Polyethylene Glycol 17 Gm Powder (MiraLax Powder) ??17 Gm 1 pack/packet, By Mouth, Daily Senna Tablet ??8.6 mg 1 tablet, By Mouth, 2 times a day Simethicone 80 mg Chewable Tablet (Simethicone Tablet) ??80 mg, Chew, 3 times a day Lab Results Cardiology Labs WBC: 6.3 k/mm3 (05/13/24) RBC:??4.13 m/mm3??Low (05/13/24) Hgb:??12.3 Gm/dL??Low (05/13/24) Hct:??35.9 %??Low (05/13/24) MCV: 86.9 femtoliters (05/13/24) MCH: 29.8 pg (05/13/24) MCHC: 34.3 Gm/dL (05/13/24) Platelet Count:??149 k/mm3??Low (05/13/24) RDW-SD: 45.3 femtoliters (05/13/24) Nucleated RBC (Automated): 0 #/100 WBC'S (05/13/24) INR: 1.1 (05/13/24) Protime (PT):??12.2 seconds??High (05/13/24) Sodium: 140 mmol/L (05/13/24) Potassium:??3.5 mmol/L??Low (05/13/24) Chloride: 102 mmol/L (05/13/24) Bicarbonate Level: 22 mmol/L (05/13/24) Glucose Level:??120 mg/dL??High (05/13/24) BUN:??24 mg/dL??High (05/13/24) Creatinine-Blood: 0.79 mg/dL (05/13/24) Calcium: 8.7 mg/dL (05/13/24) Protein, Total: 6.5 Gm/dL (05/13/24) Albumin: 3.4 Gm/dL (05/13/24) Alkaline Phosphatase: 56 units/L (05/13/24) AST (SGOT): 14 units/L (05/13/24) ALT (SGPT): 10 units/L (05/13/24) Bilirubin, Total: 0.9 mg/dL (05/13/24) Diagnostic Impression ECG ECG 12-Lead ?? 08:36:28 Ventricular Rate: 64 BPM Atrial Rate: 81 BPM QRS Duration: 138 ms Q-T Interval: 514 ms QTC Calculation(Bazett): 530 ms R Bostic: 12 degrees T Bostic: 71 degrees Atrial fibrillation with premature ventricular or aberrantly conducted complexes Right bundle branch block Abnormal ECG When compared with ECG of 07-AUG-2017 16:14, Atrial fibrillation has replaced Sinus rhythm Confirmed by DAYDAY MORATAYA MD ([id number]) on 03/23/2024 11:18:04 AM ?? [place]: DAYDAY MORATAYA MD ?? Signed By: Dayday Morataya MD ?? ECG 12-Lead ?? 08:36:28 Please click on pdf link to open report ?? Signed By: Dayday Morataya MD Cardiac Cath Procedure Cardiac Cath Procedure ?? 10:41:00 Conclusions ?? Diagnostic Summary 69-year-old gentleman presenting for severe prosthetic mitral valve stenosis by echocardiography and fatigue/shortness of breath. He also has been in atrial fibrillation and was cardioverted but developed atrial fibrillation again. ?? Hemodynamics: Mild elevated systemic pressures. Normal LVEDP. There is no significant gradient across aortic valve pullback. Pulmonary capillary wedge pressure 15 mmHg, PA 46/13 mean 25, RA 7 mmHg. Cardiac index 2.9 Mean gradient across prosthetic mitral valve 11 mmHg. Mitral valve area 1.14 cm2. ?? Coronary anatomy: No significant coronary artery disease noted. ?? The patient has bioprosthetic mitral valve stenosis which by our assessment is severe. He also has atrial fibrillation which is contributing to his symptoms at this point. No significant coronary artery disease noted. ?? Diagnostic Recommendations Aggressive primary risk factor modification according to ATP III guidelines. DOREEN to further assess the mitral valve and consider cardioversion at the same time. Reassess symptoms in sinus rhythm. If he continues to have significant symptoms then referral to heart team for further assessment for redo mitral valve surgery versus transcatheter mitral valve replacement. ?? ACC Diagnostic Recommendations: Other cardiac therapy without CABG or PCI. ?? Complications:None. ?? Signatures ?? Signed By: Chan Taylor MD Problem List/Past Medical History Ongoing Anemia BPH (benign prostatic hypertrophy) Decreased hearing of right ear Diabetes mellitus Dyslipidemia Emphysema/COPD Ex-smoker, 1 ppd X10 years, quit 1996 Exposure to lionel gas GERD (gastroesophageal reflux disease) Heart murmur HTN (hypertension) Mitral regurgitation OA (osteoarthritis), s/p right knee Obesity (BMI 37.5 as of 04/21/2017) ANJELICA on CPAP PTSD (post-traumatic stress disorder) Right bundle branch block (RBBB) S/P multiple left inguinal hernia repairs Spondylolisthesis Procedure/Surgical History Cardiac catheterization: 04/01/17 DOREEN procedure: 03/06/17 Right Rotator cuff repair: 2014 Arthroscopy of right knee Vasectomy Left inguinal Hernia repair Ganglionectomy of tendon sheath of right wrist Social History Tobacco Former smoker, Tobacco use times per day: 1 ppd, quit 1996. 10 Number of years:. Total pack years: 10. Family History No family history recorded. * Mann Knott MD: PERFORM Event Display: Consultation Note Authored Date: Attending Attestation:??I have seen and evaluated this patient. ??I have discussed the case and itsmanagement with the fellow and agree with the findings and plan as documented in the fellow???s note.? Transthorocacic images reviewed by me personally. It does appear to represent significant MV bioprosthetic valve thickening with significant bioprosthetic valve stenosis. No obvious regurgitation however an eccentric jet of regurgitation can sometimes be missed on transthoracic studies and can influence the very high gradient noted on the echo due to increased flow. Agree with CT scan with TMVR protocol. Suggest DOREEN to further evaluate valve anatomy and to rule out eccentric or localized MR. Patient was taken down for DOREEN however a bedside US by anesthesia suggested presence of stomach contents/food. He is on Ozempic (last dose Friday) in addition to dapagliflozin. DOREEN would have to be postponed to Friday. Discussed with Dr. Mayes of our interventional/TMVR protocol. Discussed also with his primary sales training manager Dr. Taylor. Can be sent home after he gets the CT scan. DOREEN can be performed as an outpatient after review by Dr. Mayes or possibly pre-TMVR procedure in the laboratory technologist/OR.?? Dis cussed extensively with the patient and his . ?? Over 2 hours spent in clinical assessment, review of prior imaging study and coordination of care. * Mandy GUTIERREZ, Edwina: PERFORM, MODIFY, MODIFY Event Display: Consultation Note Authored Date: [id number] Patient: ??ANDREEA OVIEDO ? Age:??69 Years?Sex:??Male?:??1955?? Patient transferred from [facility] after being seen by Dr. Taylor?? on 05/12 for TMVRevaluation for severe bioprosthetic mitral valve stenosis. As per chart review patient is vitally stable blood pressure 114/70, 92% on room air, afebrile.?? Iwent to evaluate patient at bedside, he was sleeping comfortably.?? As per bedside RN patient had no complaints of shortness of breath or chest pain. ?? 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 He was found to be in acute hypoxic respiratory failure and was diuresed with IV Lasix and then transition to p.o. Lasix today.?? He was evaluated by Dr. Taylor from [place] [facility] who recommended transferring patient [place] [facility] [place]. Case will be discussed with Dr. Mayes/interventional cardiology in the morning. ? Note * Alexandrea Bedolla RN: PERFORM Event Display: Discharge/Transfer Note Hospital Authored Date: [id number] Nursing Discharge Note Entered On: 05/14/2024 13:12 EST Performed On: 05/14/2024 13:11 EST by Alexandrea Bedolla RN Nursing Discharge Note 2 Discharge Time : 05/14/2024 13:11 EST Discharge Level of Care at Discharge : Home/Senior Care/Foster Care Patient Left Unit Via : Wheelchair Patient Accompanied Off Unit with : Responsible adult DC Instructions Provided & Signed by Pt : Yes Patient Understands D/C Instructions : Yes Patient Instructions Discharge Signed : Yes Did Pt have Specialty Bed or Wound Vac : No Alexandrea Bedolla RN - 05/14/2024 13:11 EST * Ricardo Patterson MD: PERFORM Event Display: Discharge/Transfer Note Hospital Authored Date: [id number] Patient: ??ANDREEA OVIEDO ? Age:??69 Years?Sex:??Male?:??1955?? 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) Anxiety (F41.9) PTSD (post-traumatic stress disorder) (F43.10) ANJELICA on CPAP (G47.33) _ Discharge Medications Albuterol/Ipratropium (Combivent Respimat 20 mcg-100 mcg/inh inhalation aerosol)?1?puff(s)?Inhalation?4 times a day apixaban (Eliquis 5 mg oral tablet)?1?tab(s)?5?Milligram?By Mouth?2 times a day Atorvastatin (atorvastatin 20 mg oral tablet)?1?tab(s)?20?Milligram?By Mouth?Daily Cholecalciferol (Vitamin D3)?1,000?International Unit?By Mouth?Daily Clonazepam (clonazePAM 0.5 mg oral tablet)?1?tab(s)?0.5?Milligram?By Mouth Cyanocobalamin (Vitamin B12 1000 mcg oral tablet)?1?tab(s)?1,000?Microgram?By Mouth?Daily Diltiazem?120?Milligram?Daily empagliflozin (Jardiance 10 mg oral tablet)?1?tab(s)?10?Milligram?By Mouth?Daily in AM Finasteride (finasteride 5 mg oral tablet)?1?tab(s)?5?Milligram?By Mouth?Daily Fluticasone Nasal (fluticasone 50 mcg/inh nasal spray)?Daily Furosemide (Lasix 40 mg oral tablet)?40?Milligram?1?tablet?By Mouth?Daily Magnesium Oxide (magnesium oxide 400 mg oral capsule)?1?capsule?400?Milligram?By Mouth?Daily Metformin?750?Milligram?By Mouth?2 times a day Mometasone (Asmanex 220 mcg Inhaler)?Inhalation Montelukast (Singulair 10 mg oral tablet)?10?Milligram?1?tablet?By Mouth?Daily?in the evening Omeprazole?40?Milligram?By Mouth?Daily?20 Saw Waldron?320?Milligram?By Mouth?Daily Spironolactone (spironolactone 25 mg oral tablet)?12.5?Milligram?0.5?tablet?By Mouth?Daily tadalafil?By Mouth?Daily Terazosin (terazosin 10 mg oral capsule)?10?Milligram?1?capsule?By Mouth?Daily atbedtime ? Medications Started none Medications Discontinued Hold off on your Farxiga/dapagliflozin??until Friday. ??Plan is to get transesophageal echocardiogram??on Friday. Doses Changed none Allergies Allergies ?(Active and Proposed Allergies Only) Other Environmental Allergy? (Severity: Unknown severity, Onset: Unknown) ?Comments: VICRYL SUTURES Other Food Allergy? (Severity: Unknown severity, Onset: Unknown) ?Comments: MSG, aspartane, pineapple, melons JARROD inhibitors? (Severity: Unknown severity, Onset: Unknown) Bee Stings? (Severity: Unknown severity, Onset: Unknown) Dexone? (Severity: Unknown severity, Onset: Unknown) Betadine? (Severity: Unknown severity, Onset: Unknown) thimerosal topical? (Severity: Unknown severity, Onset: Unknown) NSAIDs? (Severity: Unknown severity, Onset: Unknown) ?Reactions: Thimerosal penicillin V potassium? (Severity: Unknown severity, Onset: Unknown) ?Reactions: NSAID morphine? (Severity: Unknown severity, Onset: Unknown) ?Reactions: Penicillin V potassium Demerol HCl? (Severity: Unknown severity, Onset: Unknown) lisinopril? (Severity: Unknown severity, Onset: Unknown) ? Future Appointments Friday 3:45 PM EST ?? With: Sugey GUTIERREZ, [facility] Where: [facility]iology [address] [place] [address]- Status: Pending Hospital Course ?? 68-year-old gentleman with history of asthma, rrs-[id number]-ddwcktxmm diabetes, hypertension regurgitations post bioprosthetic mitral valve with severe stenosis persistent A-fib on anticoagulation withEliquis, coronary disease presented to the hospital with chief complaint of??shortness of breath. Patient was initially at [facility], was managed for acute hypoxic respiratory failure rec eived diuresis with IV Lasix and eventually was transitioned to p.o. Lasix and transferred to our [place] for further evaluation of TMVR.?? Patient was being planned for??DOREEN on 05/13.?? Patient was on Farxiga/semaglutide??and on ultrasound abdomen patient was noticed to have residual food because of which??DOREEN was postponed for 05/17.?? Patient will then follow-up with the structural cardiology with Dr. Mayes for??transcatheter mitral valve replacement.?? He has appointment coming up on 05/21.??Patient will continue to hold off on his Farxiga/semaglutide??on discharge.?? Can hold Eliquis??1day prior??to DOREEN.?? Patient was cleared by cardiology for home disposition on 05/14. ?? Prosthetic mitral valve stenosis (T82.857A) ?Associated with??Heart failure with preserved ejection fraction (I50.30),??Atrial flutter (I48.92),??Hypertension (I10),??Hyperlipidemia (E78.5),??Anticoagulated (Z79.01) Outpatient follow-up with Dr. Mayes from cardiology for transcatheter mitral valve replacement.?? Appointment coming up on 05/21 DOREEN which was planned??for 05/13 got postponed until 05/17 because of??residual food in the stomachfrom Ozempic/dapagliflozin. ??Patient was recommended to hold off on??Ozempic/dapagliflozin until??DOREEN. ??He can hold off on his Eliquis 1 day prior to DOREEN. ? Atrial flutter History of cardioversion Continue Eliquis, hold Eliquis 1 day prior to DOREEN ? History of??CHF with preserved EF Continue Lasix 40 mg p.o. daily,??spironolactone 12.5 mg daily,??magnesium 400 mg daily ? Hyperlipidemia Statin ? Hypertension Diltiazem ?? Asthma-COPD overlap syndrome (J44.89):?? albuterol as needed. ?? Non-insulin dependent type 2 diabetes mellitus (E11.9):?? Diabetic diet,??hold off on semaglutide/Ozempic until you get DOREEN done. ?? 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 Anxiety (F41.9) ?Associated with??PTSD (post-traumatic stress disorder) (F43.10) ? As needed??clonazepam??as he takes at home ?? ANJELICA on CPAP (G47.33):??CPAP ? CODE STATUS-full code ?? Disposition-discharge home on 05/14/2024 ? Objective as mentioned above ? Measurements?? Height: 177 cm (05/14/24) Weight: 85.5 kg (05/14/24) Dry Weight: 85 kg (05/12/24) Body Mass Index:??26.21 kg/m2??High (05/13/24) ? Vital Signs?? Temperature: 97.8 DegF (05/14/24 10:20:00) Temperature Route: Oral (05/14/24 10:20:00) Pulse Rate: 65 bpm (05/14/24 10:20:00) Respiratory Rate: 18 br/min (05/14/24 10:20:00) Systolic Blood Pressure: 121 mm Hg (05/14/24 10:26:00) Diastolic Blood Pressure: 77 mm Hg (05/14/24 10:26:00) Blood pressure sites: Arm, left (05/14/24 10:20:00) Mean Arterial Pressure: 92 mm Hg (05/14/24 10:20:00) Pulse Pressure: 44 mm Hg (05/14/24 10:20:00) Oxygen Saturation: 94 % (05/14/24 10:20:00) Mode of Delivery (Oxygen): Room air (05/14/24 10:20:00) Early Warning Score: 7 (05/14/24 10:48:35) ? Perfusion Assessment Capillary Refill: < 3 seconds (05/13/24 21:00:00) Cardiac Rhythm: Atrial flutter (05/14/24 03:00:00) Cardiovascular: WNL except (05/13/24 21:00:00) Cardiovascular Assessment Status: Unchanged from recorder's assessment (05/14/24 03:00:00) Cardiovascular Symptoms: None (05/13/24 21:00:00) Dorsalis Pedis Pulse, Left: Normal (05/13/24 21:00:00) Dorsalis Pedis Pulse, Right: Normal (05/13/24 21:00:00) Heart Sounds: S1, S2 (05/13/24 21:00:00) Nail Bed Color, Fingers: [place] (05/13/24 21:00:00) Nail Bed Color, Toes: [place] (05/13/24 21:00:00) Pacemaker: No (05/13/24:00:00) Radial Pulse, Left: Normal (05/13/24 21:00:00) Radial Pulse, Right: Normal (05/13/24 21:00:00) Skin Temperature Lower Extremities: Warm (05/13/24 21:00:00) Skin Temperature Upper Extremities: Warm (05/13/24 21:00:00) ? Basic ADLs Activity Assistance: Independent (05/13/24) Ambulatory devices needed: None (05/13/24) Assistance w bathing/eating/dressing: No (05/12/24) Feeding Assistance: Independent (05/13/24) Hygiene: Self (05/13/24) Need for Assist w/ Walk/Transfer: No (05/12/24) ? . Physical Exam Constitutional: Alert, in no acute distress. Head EENT: Extraocular muscle movement intact.??Moist mucous membranes.?? Neck: Supple. No JVD. Respiratory: Clear to auscultation. No wheezing or crackles. No use of accessory muscles. Cardiovascular: S1S2 regular. No murmurs, rubs or gallops. Gastrointestinal: Abdomen soft, non-tender, non-distended. Normal bowel sounds. Genitourinary: No CVA tenderness. Extremities: No lower extremity pitting??edema. No cyanosis or clubbing. Neurologic: AAOx3, Speech normal. No focal neurological deficits. Skin: No rash. Psychiatric: Normal mood and affect ?? Pending Results CT TMVI Heart ordered on 05/13/2024 Follow-Up Appointments Added Follow Up ?Time Frame ?Comments Andera SUN , Omer?1 week: call to discuss follow up visit?Follow-up with your primary care provider in about 1 week of discharge. ??Call office for appointment. Patient Instructions No plans for??transesophageal echocardiogram??on Friday. ??Continue to hold off on Ozempic/Farxiga until then. ??Hold Eliquis??the day prior to??transesophageal echocardiogram. ?? No??other changes to your home medicines. ? Follow-up Follow-up with your primary care provider in about 1 week of discharge. ??Call office for appointment. Follow-up with??Dr. Mayes??from cardiology for??your mitral valve??replacement. you have an appointment coming up on 05/21 Post Discharge Care Diet: ??Cardiac diet ?? Activity: ??as tolerated ?? Wound Care: ??none ?? Code Status: ??full code ?? Condition: ??stable ?? Prognosis: ??Fair ?? Discharge ?05/14/24 11:03:00 EST ?Order Comment:?? Results Discharge Labs BLOOD COUNT & DIFF WBC 6.3 k/mm3 ()?? 05/13/2024 03:52 RBC 4.13 m/mm3 (Low)?? 05/13/2024 03:52 Hgb 12.3 Gm/dL (Low)?? 05/13/2024 03:52 Hct 35.9 % (Low)?? 05/13/2024 03:52 MCV 86.9 femtoliters ()?? 05/13/2024 03:52 MCH 29.8 pg ()?? 05/13/2024 03:52 MCHC 34.3 Gm/dL ()?? 05/13/2024 03:52 Platelet Count 149 k/mm3 (Low)?? 05/13/2024 03:52 RDW-SD 45.3 femtoliters ()?? 05/13/2024 03:52 MPV 9.5 femtoliters ()?? 05/13/2024 03:52 Nucleated RBC (Automated) 0.0 #/100 WBC'S ()?? 05/13/2024 03:52 Abs. NRBC 0.0 k/mm3 ()?? 05/13/2024 03:52 ?? CHEM GENERAL Sodium 140 mmol/L ()?? 05/14/2024 08:06 Potassium 3.6 mmol/L ()?? 05/14/2024 08:06 Chloride 100 mmol/L ()?? 05/14/2024 08:06 Bicarbonate Level 26 mmol/L ()?? 05/14/2024 08:06 Anion Gap 14 ()?? 05/14/2024 08:06 Glucose Level 103 mg/dL (High)?? 05/14/2024 08:06 Glucose, POC 117 mg/dL (High)?? 05/14/2024 08:05 BUN 25 mg/dL (High)?? 05/14/2024 08:06 Creatinine-Blood 1.01 mg/dL ()?? 05/14/2024 08:06 Estimated GFR Creatinine 80 ML/MIN/1.73 M2 ()?? 05/14/2024 08:06 Calcium 8.9 mg/dL ()?? 05/14/2024 08:06 Magnesium 2.3 mg/dL ()?? 05/13/2024 03:55 Protein, Total 6.5 Gm/dL ()?? 05/13/2024 03:55 Albumin 3.4 Gm/dL ()?? 05/13/2024 03:55 AG Ratio 1.1 ()?? 05/13/2024 03:55 Alkaline Phosphatase 56 units/L ()?? 05/13/2024 03:55 AST (SGOT) 14 units/L ()?? 05/13/2024 03:55 ALT (SGPT) 10 units/L ()?? 05/13/2024 03:55 Bilirubin, Total 0.9 mg/dL ()?? 05/13/2024 03:55 ? COAG INR 1.1 ()?? 05/13/2024 03:52 Protime (PT) 12.2 seconds (High)?? 05/13/2024 03:52 ?? URINE OTHER Est Creatinine Clearance 68.58 mL/min ()?? 05/14/2024 10:43 ? 40??minutes spent on discharge * Alexandrea Bedolla RN: PERFORM Event Display: Patient Education/Instruction Authored Date: [id number] Inpatient Adult Discharge Instructions. [address] [address] Name: ANDREEA OVIEDO : 1955?? Visit: 05/12/2024 16:45?? Current Date: 05/14/2024 12:32 ?? Account: [id number]?? Inpatient Adult Discharge Instructions We would like to thank you for allowing us to assist you with your healthcare needs. The following includes patient education materials and information regarding your injury/illness. Our entire staffstrives to provide an excellent experience for our patients and their families. PLEASE ENSURE YOU FOLLOW-UP PER THE INSTRUCTIONS BELOW! ?? YOUR OPINION IS IMPORTANT TO US! Please complete the survey you may receive by mail or email. Your feedback will be used to make improvements to the healthcare experiences of our patients and their families. Surveys are administered by [employer] ?? If further treatment with your primary care physician or another doctor is recommended, it is important for you to keep the appointment. Call your primary care physician or return to the Emergency Department immediately if your condition worsens, fails to improve, or new symptoms develop. If you need to find a doctor, you can call [facility] Link for a referral at [phone] or toll free at [phone] or log in to [email or web address].. ?? [facility], in keeping with [facility] guidance, no longer requires face masks for staff, patientsor visitors in most situations. Similiar to time spent indoors at other locations, there is the chance that you were exposed to repiratory viruses during your time with us (such as flu or COVID-19). If you develop symptoms concerning for a viral respiratory infection, please seek testing (and treatment if indicated) from your medical provider or home test kit. ?? You can view and manage your care through the patient portal or by using a health care zaida of your choosing. [employer] is a website that allows you to securely view your medical information including your hospital discharge summary, office visit summaries, medications and follow-up visits. You can also request appointments, renew medications, and request access to your medical information using a health care zaida of your choosing, or just ask a question. You can enroll at [email or web address] or register during your next office visit. You have been discharged from [facility], Patient Care Unit: M5??. If you have any questions regarding these instructions, including results of studies pending, afteryou leave, please call us and we will be happy to assist you 09/12. [facility] Your Care Team Attending Physician Ricardo Patterson MD?? Consulting Providers Ricardo Patterson MD?? Discharging Providers Ricardo Patterson MD Your Diagnosis Prosthetic mitral valve stenosis Heart failure with preserved ejection fraction Atrial flutter Anticoagulated Hypertension Hyperlipidemia Asthma-COPD overlap syndrome Non-insulin dependent type 2 diabetes mellitus BPH (benign prostatic hyperplasia) Atonic bladder Anxiety PTSD (post-traumatic stress disorder) ANJELICA on CPAP Tests Performed Below is a partial list of the tests performed during your hospitalization. You may have had other tests and procedures not included in this list. Please discuss all test results with your provider. Basic Metabolic Panel CBC Comprehensive Metabolic Panel GLUCOSE POC INR Mg Level Basic Metabolic Panel?? CBC?? CT [facility] Heart?? Comprehensive Metabolic Panel?? Glucose POC?? INR?? Magnesium Level (Mg Level)?? Primary Care Provider Omer Nath? Advance Directive Health Care Proxy on File Yes - Health Care Proxy Discharge Vitals Temperature: 97.8 DegF Height: 177 cm Pulse Rate: 65 bpm Weight: 85.5 kg Respiratory Rate: 18 br/min Body Mass Index:??26.21 kg/m2??High Systolic Blood Pressure: 121 mm Hg Body surface area: 2.01 Diastolic Blood Pressure: 77 mm Hg ?? Oxygen Saturation: 94 % ?? Studies Pending All studies ordered during this hospital stay have been completed unless listed below. Please discuss all pending results with your provider listed above in these instructions. ?? CT [facility] Heart?? What to do next Instructions From Your Doctor No plans for??transesophageal echocardiogram??on Friday. ??Continue to hold off on Ozempic/Farxiga until then. ??Hold Eliquis??the day prior to??transesophageal echocardiogram. ?? No??other changes to your home medicines. ? Follow-up Follow-up with your primary care provider in about 1 week of discharge. ??Call office for appointment. Follow-up with??Dr. Mayes??from cardiology for??your mitral valve??replacement. you have an appointment coming up on 05/21 ?? Orders??:Cardiac diet :as tolerated Care:none Status:full code :stable :Fair? 05/14/24 11:03:00 EST?? Scheduled Follow-Up Appointments Friday 3:45 PM EST ?? [facility] Cardiology [address] [place] [id number]- Status: Pending You Need to Schedule the Following Appointments Follow Up with??Omer Nath When:??Within 1 week: call to discuss follow up visit Why: Follow-up with your primary care provider in about 1 week of discharge. ??Call office for appointment. Where: [address] [place] [id number]- Discharge Medications ANDREEA OVIEDO :1955 Visit Date:05/12/2024 Medications: Please continue your medications until treatment is completed or stopped by your provider. Medications not listed below should be discontinued. Discuss any questions related to medications with your provider. What How Much When Instructions Next Dose Unchanged Albuterol/ Ipratropium (Combivent Respimat 20 mcg-100 mcg/ inh inhalation aerosol) 1 puff(s) Inhalation 4 times a day as usual Unchanged apixaban (Eliquis 5 mg oral tablet) 1 tab(s) Oral Twice a day this evening Unchanged Atorvastatin (atorvastatin 20 mg oral tablet) 1 tab(s) Oral Daily this evening Unchanged Cholecalciferol (Vitamin D3) 1,000 International Unit Oral Daily tomorrow am Unchanged Clonazepam (clonazePAM 0.5 mg oral tablet) 1 tab(s) Oral as needed Unchanged Cyanocobalamin (Vitamin B12 1000 mcg oral tablet) 1 tab(s) Oral Daily tomorrow am Unchanged Diltiazem 120 Milligram Daily tomorrow am Unchanged empagliflozin (Jardiance 10 mg oral tablet) 1 tab(s) Oral Daily in the morning tomorrow am Unchanged Finasteride (finasteride 5 mg oral tablet) 1 tab(s) Oral Daily tomorrow am Unchanged Fluticasone Nasal (fluticasone 50 mcg/ inh nasal spray) Daily as usual Unchanged Furosemide (Lasix 40 mg oral tablet) 1 tab(s) Oral Daily tomorrow am Unchanged Magnesium Oxide (magnesium oxide 400 mg oral capsule) 1 capsule Oral Daily tomorrow am Unchanged Metformin 750 Milligram Oral Twice a day this evening Unchanged Mometasone (Asmanex 220 mcg Inhaler) Inhalation as usual Unchanged Montelukast (Singulair 10 mg oral tablet) 1 tab(s) Oral Daily in the evening ?? tomorrow pm Unchanged Omeprazole 40 Milligram Oral Daily tomorrow am Unchanged Saw [place]ron 320 Milligram Oral Daily tomorrow am Unchanged semaglutide (Ozempic (1 mg dose)) hold for DOREEN Unchanged Spironolactone (spironolactone 25 mg oral tablet) 0.5 tab(s) Oral Daily tomorrow am Unchanged tadalafil Oral Daily tomorrow am Unchanged Terazosin (terazosin 10 mg oral capsule) 1 capsule Oral Daily tomorrow am Prescription Given During Visit No new medications prescribed at time of discharge.?? Laboratory Results Below is a partial list of the most recent Laboratory test results done prior to this discharge. You may have had other tests and procedures not included in this list. Please discuss all test resultswith your provider. Est Creatinine Clearance - 68.58 mL/min (05/14/2024) Basic Metabolic Panel (05/14/2024) ???Sodium - 140 mmol/L???Potassium - 3.6 mmol/L???Chloride - 100 mmol/L???Bicarbonate Level - 26 mmol/L???Anion Gap - 14???Glucose Level - 103 mg/dL???BUN - 25 mg/dL???Creatinine-Blood - 1.01 mg/dL???Estimated GFR Creatinine - 80 ML/MIN/1.73 M2???Calcium - 8.9 mg/dL CBC (05/13/2024) ???WBC - 6.3 k/mm3???RBC - 4.13 m/mm3???Hgb - 12.3 Gm/dL???Hct - 35.9 %???MCV - 86.9 femtoliters???MCH - 29.8 pg???MCHC - 34.3 Gm/dL???Platelet Count - 149 k/mm3???RDW-SD - 45.3 femtoliters???MPV - 9.5 femtoliters???Nucleated RBC (Automated) - 0.0 #/100 WBC'S???Abs. NRBC - 0.0 k/mm3 Comprehensive Metabolic Panel (05/13/2024) ???Sodium - 140 mmol/L???Potassium - 3.5 mmol/L???Chloride - 102 mmol/L???Bicarbonate Level - 22 mmol/L???Anion Gap - 16???Glucose Level - 120 mg/dL???BUN - 24 mg/dL???Creatinine-Blood - 0.79 mg/dL???Estimated GFR Creatinine - 95 ML/MIN/1.73 M2???Calcium - 8.7 mg/dL???Protein, Total - 6.5 Gm/dL???Albumin - 3.4 Gm/dL???AG Ratio - 1.1???Alkaline Phosphatase - 56 units/L???AST (SGOT) - 14 units/L???ALT (SGPT) - 10 units/L???Bilirubin, Total - 0.9 mg/dL GLUCOSE POC (05/14/2024) ???Glucose, POC - 121 mg/dL INR (05/13/2024) ???INR - 1.1???Protime (PT) - 12.2 seconds Mg Level (05/13/2024) ???Magnesium - 2.3 mg/dL You will be contacted within 72 hours with your results. Allergies (NKA means No Known Allergies) JARROD inhibitors Bee Stings Betadine Demerol HCl Dexone NSAIDs??(Thimerosal) Other Environmental Allergy Other Food Allergy lisinopril morphine??(Penicillin V potassium) penicillin V potassium??(NSAID) thimerosal topical Problems Active Problems??(19) Anemia?? BPH (benign prostatic hypertrophy)?? Decreased hearing of right ear?? Diabetes mellitus?? Dyslipidemia?? Emphysema/COPD?? Ex-smoker, 1 ppd X10 years, quit 1996?? Exposure to lionel gas?? GERD (gastroesophageal reflux disease)?? Heart murmur?? HTN (hypertension)?? Mitral regurgitation?? OA (osteoarthritis), s/p right knee?? Obesity (BMI 37.5 as of 04/21/2017)?? ANJELICA on CPAP?? PTSD (post-traumatic stress disorder)?? Right bundle branch block (RBBB)?? S/P multiple left inguinal hernia repairs?? Spondylolisthesis?? Education Materials Below is the list of Educational Leaflet Providered with your Discharge Instructions. [employer] Patient Education - Discharge Instructions for Mitral Valve Stenosis?? [employer] Patient Education - Transesophageal Echocardiography (DOREEN)?? Valuables and Belongings I fully understand and agree that [facility] accepts no responsibility for all my personal property including clothing, toilet articles, radios, jewelry, dentures, hearing aids, rings, money, or any other property that is in my possession or is brought to me after admission. I understand certain valuables may be placed in a hospital safe for a short period of time. I understand that the hospital is not liable for loss or damage due to accident, fire, or other natural occurrence while said property is in the safe. I accept full responsibility for any personal property that I keep with me, and will not hold the hospital responsible in case of loss or disappearance. I acknowledge that i have been encouraged to send valuables and belongings home. ?? Date for Pt to Sign Valuables/Belongings: 05/12/24 17:31:00 ?? Other Discharge Information ? Pulmonary Rehab Status?? Pulmonary Rehab Discharge Status?? Respiratory Rate: 18 br/min ? Common Emergency Awareness Tips IS IT A STROKE? Act FAST and Check for these signs: FACE Does the face look uneven? ARM Does one arm drift down? SPEECH Does their speech sound strange? TIME Call at any sign of stroke ?? Heart Attack Signs Chest discomfort: Most heart attacks involve discomfort in the center of the chest and lasts more than a few minutes, or goes away and comes back. It can feel like uncomfortable pressure, squeezing, fullness or pain. Discomfort in upper body: Symptoms can include pain or discomfort in one or both arms, back, neck, jaw or stomach. Shortness of breath: With or without discomfort. Other signs: Breaking out in a cold sweat, nausea, or lightheaded. Remember, MINUTES DO MATTER. If you experience any of these heart attack warning signs, call to get immediate medical attention! ?? Smoking can increase your chances of developing chronic health problems and can cause harmful effects to other family members in your house. If you smoke, you are strongly encouraged to quit. Please call [facility] [employer] Link at [phone] or [phone] ([phone]) or log in to [email or web address] for referrals to smoking cessation programs. ?? 089 Suicide & Crisis Lifeline is available 09/12 if you or someone you know needs to find a reason to keep living. By calling 086 you'll be connected to a skilled, trained counselor at a crisis center in your area. INPATIENT DISCHARGE INSTRUCTIONS SIGNATURE PAGE ANDREEA OVIEDO Location:[facility] Registration Date and Time:05/12/2024 16:45 EST Primary Care Physician: Omer Nath, Attending Physician: Ricardo Patterson MD, I ANDREEA OVIEDO, have received the above patient education materials/instructions and have verbalized understanding. If ambulance or transport services are being used I further acknowledge being givena choice of service. ?? If you need to contact me, please call me at this number: . Patient/Package Line Relief Operator Name: Patient/Package Line Relief Operator Signature: Relationship to Patient: Witness Name/Signature: Date: * Alexandrea Bedolla RN: PERFORM Event Display: Patient Education Leaflets Authored Date: Discharge Instructions for Mitral Valve Stenosis ?? 24727 Discharge Instructions for Mitral Valve Stenosis You have been diagnosed with mitral valve stenosis. This means that the mitral valve, located between the left atrium (left upper chamber) and left ventricle (left lower chamber) of the heart, is stiff and doesn???t open correctly. Because of this narrowing of the valve, blood must move through a smaller opening. In moderate to severe cases,??fluid can build up in the lungs,??leading to coughing and breathing problems. You can also develop heart rhythm problems, such as atrial fibrillation. Over time,??mitral valve stenosis may slowly get worse. Most cases of mitral valve stenosis are caused by rheumatic fever. Many people with mild mitral valve stenosis who don't have symptoms don't need treatment. In such cases, regular monitoring of the valve with echocardiograms is typically recommended. Sometimes symptoms can be controlled with medicines alone. In some cases, you may need surgery or a minimally invasive catheter- based procedure to repair or replace the mitral valve. Your sales training manager will recommendtreatment based on your specific condition. Here are things you can do at home. Home care ??? Maintain a healthy weight. Get help to lose any extra pounds. ??? Cut back on salt. oLimit canned, dried, packaged, and fast foods. o Don???t add salt to your food at the table. o Season foods with herbs instead of salt when you cook. o Request no added salt to your order at restaurants. ??? Start an exercise program. Ask your healthcare provider how to get started. You can benefitfrom simple activities, such as walking, gardening, swimming, or dancing. ??? Break the smoking habit. Enroll in a stop-smoking program and ask your healthcare provider about medicines to improve your chances of success. ??? Check with your healthcare provider before taking any [id number] medi cines, herbal products, or vitamin supplements. ??? Take your medicines exactly as directed. Don???t skip doses. ??? Keep all follow-up appointments. ?? Follow-up care Make a follow-up appointment with your healthcare provider, or as directed. ?? Call 911 Call 911??right away if you have any of the following: ??? Chest pain or shortness of breath ??? Weakness in the muscles of your face, arms, or legs ??? Trouble speaking ??? Fainting or dizziness ???Swelling??in your hands, feet, or ankles ??? Irregular, rapid, or pounding heartbeat ?? Last Reviewed Date: 2021 ?? 0341-2917 [employer]. All rights reserved. This information is not intended as a substitute for professional medical care. Always follow your healthcare professional's instructions. ?? * Alexandrea Bedolla RN: PERFORM Event Display: Patient Education Leaflets Authored Date: Transesophageal Echocardiography (DOREEN) ?? 80728 Transesophageal Echocardiography (DOREEN) Transesophageal echocardiography (DOREEN) is a test done to record images of your heart with a probe inside your throat (esophagus). These images help your healthcare provider find and treat problems, such as infection, disease, or defects in your heart???s function, brooks, or valves. This test may bedone when a chest echocardiogram (transthoracic) doesn't give your provider enough information. A probe in your esophagus produces sound waves. Before your test ??? Tell your healthcare provider about all??the medicines you take. Ask if you should take them before the test. Your stomach typically should be empty for this test to prevent vomiting, so your provider will likely tell you not to take them. ??? Follow any directions you're givenfor not eating or drinking before the procedure. ??? Tell your provider if you have ulcers, a hiatal hernia, or problems swallowing. Also report a history of narrowing of the esophagus, or any other past gastrointestinal problems.?? A smaller probe may be needed for your study. ??? Let the providerknow of any allergies to medicines or sedatives. ??? Also let them know if you have dental implantsor dentures that should be removed before the test. ??? Arrange to have someone??drive you??home after the exam. You'll be given a sedative for the test. It won't be safe to drive for a period of time. ?? During your DOREEN ??? When you arrive for your DOREEN, you'll change into a hospital gown, and then be taken to the testing room. ??? Your provider will spray your throat with a numbing medicine. You may be given a medicine through an IV (intravenous) line in your arm to help you relax. You may also be given oxygen. Then you???ll be asked to lie on your left side. ??? The healthcare provider gently puts the small, lubricated probe into your mouth. A small plastic or rubber bite-block will be put in your mouth to prevent you from biting down on the probe during the test. As you swallow, the provider will slowly guide the tube into your esophagus. ??? You may feel the healthcare provider moving the probe. But it shouldn???t hurt or interfere with your breathing. A nurse checks your heart rate, blood pressure, and breathing.??The test usually takes about 15 minutes. ??? The nurse publicity director will suction any saliva out of your mouth, similar to when you have a dental cleaning. ?? After the test ??? Tell your healthcare provider about any pain. Let them know if you cough up or vomit blood, or have trouble swallowing. ??? Your throat may be sore for a few hours. You can eat??and drink again when your throat is no longer numb and you're fully awake. ??? Don't drive a car or run heavy machinery for at least 24 hours after getting sedation. Most people can return to normal activities after 24 hours. Ask your healthcare provider when it's safe for you to return to normal activities. ??? Keep your follow-up appointment to go over the results with your healthcare provider. ??? Your next appointment is: ?? Last Reviewed Date: 2023 ?? [employer]. All rights reserved. This information is not intended as a substitute for professional medical care. Always follow your healthcare professional's instructions. ?? Patient Care team information Care Team Personnel Name: Velvet Curtis Position: [facility] RN Supv Member Role: Primary Care Nurse Name: Valeria Casillas RN Position: [facility] RN Member Role: Primary Care Nurse Name: Beverly Ge RN Position: [facility] Hospital Intelligence Manager Member Role: Primary Care Nurse Name: Lyly Brooke RN Position: [facility] RN Member Role: Primary Care Nurse Name: Belem Corrigan RN Position: [facility] RN Supv Member Role: Primary Care Nurse Name: Omer Nath Position: Reference Physician Member Role: PCP Address: [address] [place] [id number] Telecom: Care Team Related Persons Name: NIR OVIEDO Insurance Providers Guarantor name: Health Plan Information #: 1 Payer: [employer] [facility] Member Number: [id number] Policy Number: NA Group Number: [employer] Health Plan Information #: 4 Payer: [employer] [facility] Member Number: [id number] Policy Number: NA Group Number: [employer] Health Plan Information #: 2 Payer: MEDICARE A INPT 25 Member Number: [id number] Policy Number: [employer] Group Number: [employer] Health Plan Information #: 3 Payer: [employer] A ONLY Member Number: [id number] Policy Number: NA Group Number: [id number] Health Plan Information #: 5 Payer: MEDICARE PART B OUTPT Member Number: NA Policy Number: [employer] Group Number: NA
--- OUTSIDE RECORDS SUMMARY | 2024-05-24 16:40 | XMS_ITS | Continuity of Care Document ---
Author Organization [facility] ter Address [address] [place] [address]- Care Team Providers Care Twist Packer Name Role Phone Omer Nath Primary Care Physician Encounter [facility] Date(s): 05/18/24 - 05/18/[address] [id number] Discharge Disposition: A-D/C Home Attending Physician: Baldo Billings MD Admitting Physician: Baldo Billings MD Referring Physician: Isaiah Guerrero MD Encounter Type: Disch Daystay Allergies, Adverse Reactions, Alerts Substance Criticality Severity Reaction Reaction Severity Status morphine Penicillin V potassium Active lisinopril Active thimerosal topical A ctive Betadine Active Dexone Active Demerol HCl Active penicillin V potassium NSAID Active Bee Stings Active Other Food Allergy 1 Active Other Environmental Allergy 2 Active NSAIDs Thimerosal Active JARROD inhibitors Activ e 1MSG, aspartane, pineapple, melons 2VICRYL SUTURES Immunizations [...] Quantity: 30.0 Unit: tablet Repeat number: 1 DilTIAZem (Eqv-Cardizem CD) 120 [...] 03/23/24 Status: Ordered Repeat number: 1 Saw [place] = 320 mg, By Mouth, Daily, 0 [...] oldest [Reference Range]: 1 2 3 Height 179 cm (05/18/24 6:22 AM) 177 cm (05/18/24 6:22 AM) Weight 84 kg (05/18/24 6:22 AM) 84.5 kg (05/18/24 6:22 AM) Oxygen Saturation [94-100 %] 93 % *L* (05/18/24 9:13 AM) 93 % *L* (05/18/24 9:10 AM) 93 % *L* (05/18/24 9:07 AM) Pulse Rate [55-90 bpm] 78 bpm (05/18/24 9:13 AM) 65 bpm (05/18/24 6:21 AM) Blood Pressure [90-138/55-84 mm Hg] 108/68mm Hg (05/18/24 9:13 AM) 111/71mm Hg (05/18/24 9:10 AM) 113/64mm Hg (05/18/24 9:07 AM) Respiratory Rate [16-30 br/min] 16 br/min (05/18/24 9:13 AM) 17 br/min (05/18/24 9:10 AM) 16 br/min (05/18/24 9:07 AM) Temperature [96.8-100.4 DegF] 97.6 DegF (05/18/24 6:21 AM) Liters per Minute 6 L/min (05/18/24 9:05 AM) Mode of Delivery (Oxygen) Room air (05/18/24 9:13 AM) Room air (05/18/24 9:10 AM) Room air (05/18/24 9:07 AM) Blood pressure sites Arm, left (05/18/24 9:13 AM) Arm, left (05/18/24 9:10 AM) Arm, left (05/18/24 9:07 AM) Temperature Route Temporal (05/18/24 6:21 AM) Dry Weight 84.5 kg (05/18/24 6:22 AM) Social History Social History Type Response Smoking Status Former smoker; Tobac co use times per day: 1 ppd, quit 1996; Number of years: 10; Total pack years: 10; entered on: 04/21/17 Sex Sex Representation Male (finding) US Heart Transesophageal * Event Display: Trans-esophageal Echocardiogram Authored Date: Transesophageal Echocardiography Report (DOREEN) Patient Demographics Patient Name ANDREEA OVIEDO Date of Study 05/18/2024 Corporate Gender Male Facility Race Ethnicity Date of 1955 Height: 70 inches Age 69 year(s) Weight: 180.75 pounds Accession Number [id number] BSA: 2 m2 Room Number PANX BMI: 25.94 kg/m2 Referring Physician Yolanda Colon MD Interpreting Baldo Billings Physician Living Specialist Aaliyah Moore Indications Mitral stenosis. Study Data Type of Study DOREEN procedure:DOREEN with Doppler and Colorflow, 3D Rendering with post processing. Study Date05/18/2024 Start Time: 08:22 AM Study Location: CARE UNIT Study Status: DOREEN Suite Patient Status: Routine Blood Pressure:130/84 mmHg EKG: Within normal limits HR: 62 bpm DOREEN Performed By: Baldo Billings MD Type of Anesthesia: Anesthesia administered by anesthesiologist. Allergies - JARROD inhibitors. - Bee/Wasp stings. - Betadine. - Demerol. - Other allergy:(Dexone, thimerosol). - Lisinopril. - Morphine. - NSAIDs. Doppler Measurements MV Mean Gradient: 16 mmHg TR Velocity:224 cm/s TR Gradient:20.07 mmHg Cardiac Anatomy Left Ventricle/Interventricular Septum The left ventricle is poorly visualized due to shadowing from the prosthetic mitral valve. Left Atrium/Interatrial Septum The left atrium is dilated. There is spontaneous contrast seen in the left atrium and appendage. Aortic Valve The aortic valve is trileaflet. The aortic valve appears mildly thickened. No visual evidence of significant aortic stenosis or regurgitation. Mitral Valve There is a bioprosthesis (33 mm by history) in the aortic position. The prosthetic mitral leaflets appear severely thickened and calcified. Mitral valve opening is severely reduced. 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 Mean gradient 16 mmHg at heart rate 62 bpm. 3D planimetry was performed. Valve area of 0.8 and 1.15 cm2 were obtained, both in the severe range. There is mild mitral regurgitation. Aorta There is no evidence of significant plaque in the aorta. Right Ventricle The right ventricle is poorly visualized. Right Atrium There is no mass or thrombus in the right atrium. Pulmonic Valve The pulmonic valve is grossly normal. The pulmonic valve is functionally normal. Tricuspid Valve The tricuspid valve is grossly normal. There is mild tricuspid regurgitation. Pumonary Artery The pulmonary artery appears grossly normal. Venous Structures There is normal pulmonary venous flow. Pericardium/Extracardiac There is no significant pericardial effusion. Summary Transgastric views were not obtained, as resistance to advancement of the DOREEN probe was felt at the GE junction. There is a bioprosthesis (33 mm) in the aortic position. The prosthetic mitral leaflets appear severely thickened and calcified. Mitral valve opening is severely reduced. 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 Mean gradient 16 mmHg at heart rate 62 bpm. 3D planimetry was performed. Valve area of 0.8 and 1.15 cm2 were obtained, both in the severe range. There is mild mitral regurgitation. The left ventricle is poorly visualized. The right ventricle is poorly visualized. No hemodynamically significant (worse than mild) [place] valve dysfunction. Comparison Comparison is made to the study of March 06, 2017. Signature * Event Display: Trans-esophageal Echocardiogram Authored Date: Hospital Progress note * Mart Gilliland RN: PERFORM Darshana NUNES, Mart: PERFORM, SIGN Mart Gilliland RN: SIGN, VERIFY Mart Gilliland RN: VERIFY, MODIFY, SIGN, MODIFY Event Display: Progress Note Hospital Authored Date: Patient: ANDREEA OVIEDO Age: 69 years Sex: Male : 1955 Associated Diagnoses: None Author: Mart Gilliland RN Findings Evaluation Patient arrived to unit, VSS. #20 IV inserted in right forearm. Medical daystay assessment, home med review, and pre-procedure checklist completed. Resting comfortably awaiting procedure. . * Yoanna Parker RN: PERFORM Event Display: Progress Note Hospital Authored Date: patient returned from planned procedure VSS able to tolerate PO * Yoanna Parker RN: PERFORM Event Display: Progress Note Hospital Authored Date: reviewed discharge instructions Patient demonstrates good knowledge and IV d/c'd Patient dischargedwith Spouse wheeled off unit. Note * Yoanna Parker RN: PERFORM Event Display: Discharge/Transfer Note Hospital Authored Date: Nursing Discharge Note Entered On: 05/18/2024 10:16 EST Performed On: 05/18/2024 10:15 EST by Yoanna Parker RN Nursing Discharge Note 2 Discharge Time : 05/18/2024 10:01 EST Discharge Level of Care at Discharge : Home/Fdc/Foster Care Patient Left Unit Via : Wheelchair Patient Accompanied Off Unit with : Responsible adult DC Instructions Provided & Signed by Pt : Yes Patient Understands D/C Instructions : Yes Patient Instructions Discharge Signed : Yes Did Pt have Specialty Bed or Wound Vac : No Yoanna Parker RN - 05/18/2024 10:15 EST Patient Care team information Care Team Personnel Name: Velvet Curtis Position: [facility] RN Supv Member Role: Primary Care Nurse Name: Vinny RN, Valeria Ribeiro Position: [facility] RN Member Role: Primary Care Nurse Name: Beverly Ge RN Position: [facility] Personal Security Specialist Member Role: Primary Care Nurse Name: Lyly Brooke RN Position: [facility] RN Member Role: Primary Care Nurse Name: Belem Corrigan RN Position: [facility] RN Supv Member Role: Primary Care Nurse Name: Baldo Isaac RN Position: [facility] RN Member Role: Primary Care Nurse Name: Omer Nath Position: Reference Physician Member Role: PCP Address: [address] [place] [address] Telecom: Care Team Related Persons Name: NIR OVIEDO Insurance Providers Guarantor name: SUNNY Health Plan Information #: 2 Payer: MEDICARE PART B OUTPT Member Number: [id number] Policy Number: NA Group Number: NA Health Plan Information #: 1 Payer: [employer] [place] Member Number: [id number] Policy Number: NA Group Number: NA Health Plan Information #: 3 Payer: FOR LIFE MCR A ONLY Member Number: [id number] Policy Number: NA Group Number: [id number]
--- OUTSIDE RECORDS SUMMARY | 2024-05-24 16:40 | XMS_ITS | Continuity of Care Document ---
Author Organization [facility] Brittney ana Address [address] [place] [address]- Care Team Providers Care Trolley Worker Name Role Phone Omer Nath Primary Care Physician Encounter [facility] Date(s): 04/20/24 - 05/20/24 [facility] [address] [place] [address] Drive [address] [place] [address]- Encounter Type: Triage Allergies, Adverse Reactions, Alerts Substance Criticality Severity Reaction Reaction Severity Status morphine Penicillin V potassium Active lisinopril Active Demerol HCl Active penicillin V potassium NSAID Active Bee Stings Active NSAIDs Thimerosal Active JARROD inhibitors Activ e thimerosal topical A ctive Other Food Allergy 1 Active Betadine Active Dexone Active Other Environmental Allergy 2 Active 1MSG, aspartane, pineapple, melons 2VICRYL SUTURES [...] 03/23/24 Status: Ordered Repeat number: 1 Saw [place] = 320 mg, By Mouth, Daily, 0 [...] block (RBBB) Confirmed Active Spondylolisthesis Confirmed Active Social History Social History Type Response Smoking Status Former smoker; Tobac co use times per day: 1 ppd, quit 1996; Number of years: 10; Total pack years: 10; entered on: 04/21/17 Sex Sex Representation Male (finding) Patient Care team information Care Team Personnel Name: Velvet Curtis Position: [facility] RN Supv Member Role: Primary Care Nurse Name: Valeria Casillas RN Position: [facility] RN Member Role: Primary Care Nurse Name: Beverly Ge RN Position: [facility] Hospital Plating Tank Operator Apprentice Member Role: Primary Care Nurse Name: Lyly Brooke RN Position: [facility] RN Member Role: Primary Care Nurse Name: Belem Corrigan RN Position: [facility] RN Supv Member Role: Primary Care Nurse Name: Baldo Isaac RN Position: [facility] RN Member Role: Primary Care Nurse Name: Omer Nath Position: Reference Physician Member Role: PCP Address: [address] [place] [id number] Telecom: Care Team Related Persons Name: NIR OVIEDO Insurance Providers Guarantor name: SUNNY Health Plan Information #: 1 Payer: DIMITRY SUAREZ Member Number: NA Policy Number: NA Group Number: NA
--- OUTSIDE RECORDS SUMMARY | 2024-05-24 16:43 | XMS_ITS | Encounter Summary ---
Author Name [facility] [place] [facility] [place] Address [address] [place] [address] Care Team Providers Care Special Forces Medical Sergeant Name Role Phone CHITO SEGURA Primary Care [...] PART A Feb 16, 2018 PART A [id number] [phone] YENNY OVIEDO PATIENT MEDICARE (WNR) MEDICARE (M) PART B Feb 16, 2018 PART B [id number] YENYN OVIEDO PATIENT MEDICARE (WNR) MEDICARE (M) PART A Oct 17, 2006 PART A [id number] [facility] YENNY OVIEDO PATIENT FOR LIFE TFL* Apr 06, 2018 [id number] YENNY OVIEDO PATIENT Selected Encounter This [...] activities for the patient from all [place] [facility]. This section includes future appointments [...] - NONE [facility] [place] [facility] Nov 27, 2023 07:15 AM AMBULATORY - NONE [facility] [place] [facility] Nov 27, 2023 07:45 AM AMBULATORY - NONE [facility] [place] [facility] Dec 01, 2023 08:00 AM AMBULATORY - MEDICINE [facility] Jan 12, 2024 11:25 AM AMBULATORY - MEDICINE [facility] [place] [facility] Jan 12, 2024 11:40 AM AMBULATORY - MEDICINE [facility] [place] [facility] Jan 22, 2024 01:00 PM AMBULATORY - MEDICINE [facility] [place] [facility] Jan 29, 2024 08:45 AM AMBULATORY - MEDICINE [facility] [place] [facility] Feb 16, 2024 08:00 AM AMBULATORY - MEDICINE [facility] Feb 17, 2024 07:30 AM AMBULATORY - NONE [facility] [place] [facility] Mar 16, 2024 09:30 AM AMBULATORY - NONE [facility] [place] [facility] Mar 30, 2024 07:30 AM AMBULATORY - MEDICINE [facility] [place] [facility] Apr 06, 2024 09:00 AM AMBULATORY - MEDICINE [facility] Apr 12, 2024 08:00 AM AMBULATORY - MEDICINE [facility] Apr 12, 2024 11:00 AM AMBULATORY - MEDICINE [facility] [place] [facility] Apr 12, 2024 01:30 PM AMBULATORY - MEDICINE [facility] [place] [facility] Apr 30, 2024 01:40 PM AMBULATORY - NONE [facility] [place] [facility] Social History: Smoking Status (Most current) [...] 21, 2023 01:30 PM [facility]ACCO [facility] Tobacco Use History This section includes a history of the smoking, or tobacco-related health factors, that were collected on or before the date of the Encounter. The data comes from the [place] facility where the Encounter took place. Date/Time Smoking Status/Tobacco Use Comment F acility Jul 21, 2023 01:30 PM VA-TOBACCO QUIT [facility]RS [facility] Mar 28, 2021 03:28 PM VA-TOBACCO FORMER USER [place] [facility] [place] [facility] Mar 28, 2021 03:28 PM VA-TOBACCO QUIT 15 YRS OR MORE [place] [facility] [place] [facility] Dec 02, 2019 09:36 AM VA-TOBACCO NEVER USED [facility] [place] [facility] Apr 23, 2005 10:19 AM QUIT TOBACCO USE [facility]ST [facility]AR [facility] Advance Directives: All historical and [...]
--- OUTSIDE RECORDS SUMMARY | 2024-05-24 16:45 | XMS_ITS | Encounter Summary ---
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 [place] [facility] [place] Address [address] [place] [address] Care Team Providers Care Wood Scaler Name Role Phone CHITO MEDRANO Primary Care [...] PART A Feb 16, 2018 PART A [id number] YENNY OVIEDO PATIENT MEDICARE (WNR) MEDICARE (M) PART B Feb 16, 2018 PART B [id number] YENNY OVIEDO ES PATIENT MEDICARE (WNR) MEDICARE (M) PART A Oct 17, 2006 PART A [id number] [facility] YENNY OVIEDO PATIENT FOR LIFE TFL* Apr 06, 2018 [id number] [phone] YENNY OVIEDO PATIENT Selected Encounter This section includes the information on record at [place] for the Encounter. Date/Time Encounter Type Encounter Description Reason Provider Source May 10, 2024 08:53 AM Outpatient Encounter PRIMARY CARE/MEDICINE BEVERLY FLORES IHE Encounter Template Text not used by [place] Plan of Treatment: Future Appointments (+ 6 months) and Future Tests (+/- 45 days) The Plan of Treatment section includes future care activities for the patient from all [place] [facility]. This section includes future appointments [...] 28, 2024 08:30 AM AMBULATORY - MEDICINE [place] [facility] May 31, 2024 11:00 AM AM[place] [facility] Jun 01, 2024 07:30 AM [facility] Jun 28, 2024 08:00 AM AM[facility]ULATORY - MEDICINE [facility] Aug 23, 2024 08:00 AM [facility] October 08, 2024 09:00 AM AMBULATORY - [facility] Active, Pending, and Scheduled Orders This section includes a listing of several types of active, pending, and scheduled orders, including clinic medications orders, diagnostic test orders, procedure orders and consult orders; where the start date of the order is 45 days before the date of the Encounter or 45 days after the date of theEncounter. The data comes from all [facility]. Test Date/Time Test Type Test Details Facility Name Apr 15, 2024 07:42 AM Consult Order COMMUNITY CARE-CARDIAC SURGERY Cons Manager [facility] Social History: Smoking Status (Most current) [...] Ginger ellis Jul 21, 2023 01:30 PM [place]-TOBACCO FORMER USER [facility] Tobacco Use History This section includes a history of the smoking, or tobacco-related health factors, that were collected on or before the date of the Encounter. The data comes from the [place] facility where the Encounter took place. Date/Time Smoking Status/Tobacco Use Comment F acility Jul 21, 2023 01:30 PM VA-TOBACCO QUIT 15 YRS OR MORE [place] [facility] [facility] Mar 28, 2021 03:28 PM VA-TOBACCO FORMER USER [place] CNT [facility] Mar 28, 2021 03:28 PM VA-TOBACCO QUIT 15 YRS OR MORE [place] [facility] Dec 02, 2019 09:36 AM VA-TOBACCO NEVER USED [facility] Apr 23, 2005 10:19 AM QUIT [facility]BAC[facility] USE [facility] Advance Directives: All historical [...] 16, 2011 ADVANCE DIRECTIVE DISCUSSION MARGARITA TERRAZAS [place] Encounter Notes: All associated encounter notes This section contains the clinical notes associated to the Encounter. Date/Time Encounter Note(s) Provider Source May 10, 2024 08:53 AM PRIMARY CARE [place] MESSAGING: LOCAL TITLE: PRIMARY CARE SECURE MESSAGING STANDARD TITLE: PRIMARY CARE SECURE MESSAGING DATE OF NOTE: MAY 10, 2024@08:53 ENTRY DATE: MAY 10, 2024@08:53:42 AUTHOR: DERIC FLORES EXP COSIGNER: URGENCY: STATUS: COMPLETED ------Original Message -------- Sent: 05/08/2024 11:39 AM ET From: ANDREEA OVIEDO To: Sebas MEDRANO_PRIMARY CARE_[facility] Subject: Medication:Lasix 40mg Aisha, On Mar I asked about the Lasix 40mg I was taking and asked if you wanted me to have Dr. Fernando fax you his order or if you were good with the discharge summary from the hospital. I did not realize DINO Medrano provided a script for Spironolactone, but had not ordered the Lasix as well until now. Please let me know if he is going to order it or if I should return to Dr. Fernando for another script Friday. I only have enough for a few more days and I am able to pick it up at the [place] pharmacy [facility] or [place] if DINO Medrano orders it. Thanks, Edwar Bernstein Still have not heard from Dr. Mayes at [facility] regarding what procedure I am to have. /lisa/ DERIC FLORES LPN Signed: 05/10/2024 08:53 Receipt Acknowledged By: 05/10/2024 11:08 /lisa/ AISHA SANDERS, RN REGISTERED NURSE [facility] [place] [facility]
--- OUTSIDE RECORDS SUMMARY | 2024-05-24 16:46 | XMS_ITS | Encounter Summary ---
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 Address [address] [place] [address] Care Team Providers Care Financial Reporting Advisor Name Role Phone CHITO SEGURA Primary Care [...] PART A Feb 16, 2018 PART A [id number] YENNY OVIEDO PATIENT MEDICARE (WNR) MEDICARE (M) PART B Feb 16, 2018 PART B [id number] YENNY OVIEDO ES PATIENT MEDICARE (WNR) MEDICARE (M) PART A Oct 17, 2006 PART A [id number] [facility] [phone] YENNY OVIEDO PATIENT FOR LIFE TFL* Apr 06, 2018 [id number] [phone] YENNY OVIEDO PATIENT Selected Encounter This section includes the information on record at [place] for the Encounter. Date/Time Encounter Type Encounter Description Reason Provider Source May 14, 2024 08:16 AM Outpatient Encounter PRIMARY CARE/MEDICINE AISHA SANDERS E Encounter Template Text not used by [place] Plan of Treatment: Future Appointments (+ 6 months) and Future Tests (+/- 45 days) The Plan of Treatment section includes future care activities for the patient from all [place] [facility]. This section includes future appointments and future [...] 08:30 AM AMBULATORY - MEDICINE [place] C NTR [facility] May 31, 2024 11:00 AM AMBULATORY - MEDICINE [place] C NTRL [facility] Jun 01, 2024 07:30 AM [facility] Jun 28, 2024 08:00 AM AMBULATORY - MEDICINE [facility] Aug 23, 2024 08:00 AM AMBULATORY - MEDICINE [facility] October 08, 2024 09:00 AM AMBULATORY - MEDICINE [facility] Active, Pending, and Scheduled Orders This section includes a listing of several types of active, pending, and scheduled orders, including clinic medications orders, diagnostic test orders, procedure orders and consult orders; where the start date of the order is 45 days before the date of the Encounter or 45 days after the date of theEncounter. The data comes from all [facility]. Test Date/Time Test Type Test Details Facility Name Apr 15, 2024 07:42 AM Consult Order COMMUNITY CARE-CARDIAC SURGERY Cons Senior Software Engineering Manager's Choice [facility] Social History: Smoking Status (Most current) [...] 21, 2023 01:30 PM VA-TOBACCO FORMER USER [facility] Tobacco Use History This section includes a history of the smoking, or tobacco-related health factors, that were collected on or before the date of the Encounter. The data comes from the [place] facility where the Encounter took place. Date/Time Smoking Status/Tobacco Use Comment F acility Jul 21, 2023 01:30 PM VA-TOBACCO QUIT 15 YRS OR MORE [place]TR [place] [facility] Mar 28, 2021 03:28 PM VA-TOBACCO [facility] [place] [facility] Mar 28, 2021 03:28 PM VA-TOBACCO QUIT 15 YRS OR MORE [place] CNTR [place] [facility] Dec 02, 2019 09:36 AM VA-TOBACCO NEVER USED [place] CNTR [place] [facility] Apr 23, 2005 10:19 AM QUIT TOBACCO USE IN PAST YEAR [facility] Advance Directives: All historical and current [...] 16, 2011 ADVANCE DIRECTIVE DISCUSSION MARGARITA TERRAZAS [place] Encounter Notes: All associated encounter notes This section contains the clinical notes associated to the Encounter. Date/Time Encounter Note(s) Provider Source May 17, 2024 08:47 AM PRIMARY CARE [employer] E MESSAGING: LOCAL TITLE: PRIMARY CARE SECURE MESSAGING STANDARD TITLE: PRIMARY CARE SECURE MESSAGING DATE OF NOTE: MAY 17, 2024@08:47 ENTRY DATE: MAY 17, 2024@08:47:03 AUTHOR: DERIC FLORES EXP COSIGNER: URGENCY: STATUS: COMPLETED ------Original Message -------- Sent: 05/14/2024 07:28 PM ET From: ANDREEA OVIEDO To: Sebas SEGURA_PRIMARY CARE_[facility] Subject: General:Edwar Ware, I just received your messages at 1905 this evening. I was FINALLY discharged from [facility] ([facility]) today around 1300. I had a CT scan yesterday afternoon and was to be released afterwards, but it had not been read and I was not discharged as a result. The staffing was at holiday levels and was the message/reason I received for the delay and it was not until after 1200 today the ball started rolling. I was called today at home by [facility] and am to have a DOREEN Friday at [address] Billings for a mitral valve evaluation. I suspect all the pertinent notes will be available to you on the [facility] Portal by Friday regarding my recent stay and DOREEN results will follow. Please contact my Lizzy or let us know what records she can fwd to you from my admission to [facility] for CHF, pulmonary edema and bilateral pleural effusion and eventual transfer by [facility] to [facility] on Apr once I was considered stable. If you would like to speak with Lizzy directly the cell number is [phone] and she is my health care proxy allowed to share or divulge and receive any and all information regarding me or my care. She is also a better historian than me in all respects. I am trying to keep you in the loop so please pardon the excess details. Thanks for everything, I will call the number early Friday morning. Edwar Oviedo /lisa/ DERIC FLORES LPN Signed: 05/17/2024 08:47 Receipt Acknowledged By: 05/17/2024 12:59 /lisa/ AISHA SANDERS, RN REGISTERED NURSE DERIC FLORES [place] [facility] May 14, 2024 08:16 AM PRIMARY CARE SECUR E MESSAGING: LOCAL TITLE: PRIMARY CARE SECURE MESSAGING STANDARD TITLE: PRIMARY CARE SECURE MESSAGING DATE OF NOTE: MAY 14, 2024@08:16 ENTRY DATE: MAY 14, 2024@08:16:54 AUTHOR: AISHA SANDERS EXP COSIGNER: URGENCY: STATUS: COMPLETED ------Original Message -------- Sent: 05/13/2024 12:18 PM ET From: ANDREEA OVIEDO To: Sebas SEGURA_PRIMARY CARE_[facility] Subject: General:Edwar Oviedo I have been transferred from [facility] to [facility] as an inpatient.I am waiting to have a CT scan of my heart and they also wish to do a DOREEN on Friday. I have seen Dr. Knott and I suspect you would be able to access his notes in the computer. It would seem if they are leaning towards [facility] in replacement of the failing valve. That decision to be determined. ------Original Message -------- Sent: 05/14/2024 08:16 AM ET From: AISHA SANDERS To: ANDREEA OVIEDO Subject: General:Edwar Oviedo Good Morning, Sounds like you are in good hands @ [facility], we are following your progress. Let us know if you need referrals or consults with discharge planning. Thank you for your service, MANJU Ware - PACT Senior Tax Analyst /es/ AISHA SANDERS RN REGISTERED NURSE Signed: 05/14/2024 08:16 AISHA SANDERS [place] CNTRL [place] [facility]
--- OUTSIDE RECORDS SUMMARY | 2024-05-24 16:46 | XMS_ITS | Encounter Summary ---
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 Address [address] [place] [id number] Care Team Providers Care Dry Room Attendant Name Role Phone CHITO SEGURA Primary [...] PART A Feb 16, 2018 PART A [id number] YENNY OVIEDO PATIENT MEDICARE (WNR) MEDICARE (M) PART B Feb 16, 2018 PART B [id number] YENNY OVIEDO ES PATIENT MEDICARE (WNR) MEDICARE (M) PART A Oct 17, 2006 PART A [id number] YENNY OVIEDO PATIENT FOR LIFE TFL* Apr 06, 2018 [id number] YENNY OVIEDO PATIENT Selected Encounter This section includes the information on record at [place] for the Encounter. Date/Time Encounter Type Encounter Description Reason Pro vider Source Apr 08, 2024 12:00 AM Outpatient Encounter COMMUNITY CARE CONSULT IHE Encounter Template Text not used by [place] Plan of Treatment: Future Appointments (+ 6 months) and Future Tests (+/- 45 days) The Plan of Treatment section includes future care activities for the patient from all [place] [facility]. This section includes future appointments and future orders which are active, pending or scheduled. Future Appointments This section includes appointments that were scheduled to occur 6 months from the date of the Encounter, up to a maximum of 20 appointments. The data comes from all [facility]. Appointment Date/Time Appointment Type Appointme nt Facility Name Apr 12, 2024 08:00 AM AMBULATORY - MEDICINE [facility] Apr 12, 2024 11:00 AM AMBULATORY - MEDICINE [place] [facility] Apr 12, 2024 01:30 PM AMBULATORY - MEDICINE [place] C [place] [facility] Apr 30, 2024 01:40 PM AMBULATORY - NONE [place] [facility] May 28, 2024 08:30 AM AMBULATORY - MEDICINE [place] C [place] [facility] May 31, 2024 11:00 AM AMBULATORY - MEDICINE [place] C [place] [facility] Jun 01, 2024 07:30 AM AMBULATORY - NONE [place] [facility] Jun 28, 2024 08:00 AM AMBULATORY - MEDICINE [facility] Aug 23, 2024 08:00 AM AMBULATORY - MEDICINE [facility] Active, Pending, and Scheduled Orders This section includes a listing of several types of active, pending, and scheduled orders, including clinic medications orders, diagnostic test orders, procedure orders and consult orders; where the start date of the order is 45 days before the date of the Encounter or 45 days after the date of theEncounter. The data comes from all [facility]. Test Date/Time Test Type Test Details Facility Name Apr 15, 2024 07:42 AM Consult Order COMMUNITY CARE-CARDIAC SURGERY Cons Medical Voucher Clerk's Choice [place] [facility] Social History: Smoking Status (Most [...] 01:30 PM VA-TOBACCO FORMER USER [facility] Tobacco Use History This section includes a history of the smoking, or tobacco-related health factors, that were collected on or before the date of the Encounter. The data comes from the [place] facility where the Encounter took place. Date/Time Smoking Status/Tobacco Use Comment Wilberto holbrook Jul 21, 2023 01:30 PM VA-TOBACCO QUIT 15 YRS OR MORE [facility] Mar 28, 2021 03:28 PM VA-TOBACCO [facility] Mar 28, 2021 03:28 PM VA-TOBACCO QUIT 15 YRS OR MORE [facility] Dec 02, 2019 09:36 AM VA-TOBACCO NEVER USED [facility] Apr 23, 2005 10:19 AM QUIT TOBACCO USE IN PAST YEAR [facility] Advance Directives: All historical and current [...] 16, 2011 ADVANCE DIRECTIVE DISCUSSION MARGARITA TERRAZAS [place] Encounter Notes: All associated encounter notes This section contains the clinical notes associated to the Encounter. Date/Time Encounter Note(s) Provider Source Apr 08, 2024 12:00 AM NONVA CONSULT: LOCAL TITLE: COMMUNITY CARE-CONSULT RESULT NOTE STANDARD TITLE: NONVA CONSULT DATE OF NOTE: APR 08, 2024 ENTRY DATE: MAY 17, 2024@08:19:58 AUTHOR: ALICIA SIMPSON COSIGNER: URGENCY: STATUS: COMPLETED VistA Imaging - Scanned Document SCANNED DOCUMENT SIGNATURE NOT REQUIRED Electronically Filed: 05/17/2024 by: SORAIDA SIMPSON Water Filtration Technician SORAIDA SIMPSON [facility]
--- OUTSIDE RECORDS SUMMARY | 2024-05-24 16:46 | XMS_ITS ---
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 Address [address] [place] [address] Care Team Providers Care Conduit Installer Name Role Phone OMER MEDRANO Primary Care [...] PART A Feb 16, 2018 PART A [id number] YENNY OVIEDO PATIENT MEDICARE (WNR) MEDICARE (M) PART B Feb 16, 2018 PART B [id number] YENNY OVIEDO ES PATIENT MEDICARE (WNR) MEDICARE (M) PART A Oct 17, 2006 PART A [id number] [facility] YENNY OVIEDO PATIENT FOR LIFE TFL* Apr 06, 2018 [id number] YENNY OVIEDO PATIENT Selected Encounter This section includes the information on record at [place] for the Encounter. Date/Time Encounter Type Encounter Description Reason Provider Source May 10, 2024 11:08 AM Outpatient Encounter PRIMARY CARE/MEDICINE AISHA SANDERS E Encounter Template Text not used by [place] Plan of Treatment: Future Appointments (+ 6 months) and Future Tests (+/- 45 days) The Plan of Treatment section includes future care activities for the patient from all [place] [facility]. This section includes future appointments [...] 08:30 AM AMBULATORY - MEDICINE [place] C NTR [facility]STRN [facility] May 31, 2024 11:00 AM AMBULATORY - MEDICINE [place] C NTRL [facility] Jun 01, 2024 07:30 AM [facility] Jun 28, 2024 08:00 AM AMBULATORY - MEDICINE [facility] Aug 23, 2024 08:00 AM AMBULATORY - MEDICINE [facility] October 08, 2024 09:00 AM [facility] Active, Pending, and Scheduled Orders This section includes a listing of several types of active, pending, and scheduled orders, including clinic medications orders, diagnostic test orders, procedure orders and consult orders; where the start date of the order is 45 days before the date of the Encounter or 45 days after the date of theEncounter. The data comes from all [facility]. Test Date/Time Test Type Test Details Facility Name Apr 15, 2024 07:42 AM Consult Order COMMUNITY CARE-CARDIAC SURGERY Cons Stevedoring Supervisor's Choice [facility] Social History: Smoking Status (Most current) [...] 2023 01:30 PM VA-TOBACCO FORMER USER [facility] Tobacco Use History This section includes a history of the smoking, or tobacco-related health factors, that were collected on or before the date of the Encounter. The data comes from the [place] facility where the Encounter took place. Date/Time Smoking Status/Tobacco Use Comment F acility Jul 21, 2023 01:30 PM VA-TOBACCO QUIT 15 YRS OR MORE [place] [facility] Mar 28, 2021 03:28 PM VA-TOBACCO FORMER USER [place] [facility] Mar 28, 2021 03:28 PM VA-TOBACCO QUIT 15 YRS OR MORE [place] [facility] Dec 02, 2019 09:36 AM VA-TOBACCO NEVER USED [place] CNTR [place] [facility] Apr 23, 2005 10:19 AM QUIT TOBACCO USE [facility] Advance Directives: All historical and current [...] 16, 2011 ADVANCE DIRECTIVE DISCUSSION MARGARITA TERRAZAS [place] Encounter Notes: All associated encounter notes This section contains the clinical notes associated to the Encounter. Date/Time Encounter Note(s) Provider Source May 10, 2024 01:03 PM PRIMARY CARE SECURE MESSAGING: LOCAL TITLE: PRIMARY CARE SECURE MESSAGING STANDARD TITLE: PRIMARY CARE SECURE MESSAGING DATE OF NOTE: MAY 10, 2024@13:03 ENTRY DATE: MAY 10, 2024@13:03:33 AUTHOR: DERIC FLORES EXP COSIGNER: URGENCY: STATUS: COMPLETED ------Original Message ------ Sent: 05/10/2024 11:16 AM ET From: ANDREEA OVIEDO To: Sebas MEDRANO_PRIMARY CARE_[facility] Subject: Medication:julienne Ware, I am back in the hospital with pulmonary edema and bilateral pleural effusions. Am being admitted. Andreea Oviedo ------Original Message ------ Sent: 05/10/2024 11:20 AM ET From: DERIC FLORES To: ANDREEA OVIEDO Subject: Medication:lasik so sorry to hear, what hospital are you in? get well soon!! ------Original Message ------ Sent: 05/10/2024 11:49 AM ET From: ANDREEA OVIEDO To: Sebas MEDRANO_PRIMARY CARE_[facility] Subject: Medication:[facility]. Andreea Oviedo /lisa/ DERIC FLORES LPN Signed: 05/10/2024 13:03 Receipt Acknowledged By: 05/11/2024 08:48 /lisa/ Omer Medrano PA-C STAFF PHYSICIAN LEAD REFINERY SUPERVISOR DERIC FLORES [place]L [place] [facility] May 10, 2024 11:08 AM PRIMARY CARE SECURE MESSAGING: LOCAL TITLE: PRIMARY CARE SECURE MESSAGING STANDARD TITLE: PRIMARY CARE SECURE MESSAGING DATE OF NOTE: MAY 10, 2024@11:08 ENTRY DATE: MAY 10, 2024@11:08:06 AUTHOR: AISHA SANDERS EXP COSIGNER: URGENCY: STATUS: COMPLETED ------Original Message ------ Sent: 05/10/2024 11:08 AM ET From: AISHA SANDERS To: ANDREEA OVIEDO Subject: Medication:lasik Good Morning, It looks like Dr. Fernando ordered the Spironolactone via the [place] pharmacy. This is allowed when you have an active consult from the [place] to see that provider, which you do until 07/27/2024. He did not send one over for Lasik. If you need a refill on this I would ask his office to send over the script to us to be filled here and mailed. Our Pharmacy Fax # is . Once it is ordered you can always pick some up from the nearest pharmacy until the mail arrives. Thank you for your service, MANJU Ware - PACT As400 Developer /es/ AISHA SANDERS RN REGISTERED NURSE Signed: 05/10/2024 11:08 AISHA SANDERS [facility]
--- OUTSIDE RECORDS SUMMARY | 2024-05-24 16:46 | XMS_ITS | Encounter Summary ---
Author Name [place] Address [address] [place] [address] Care Team Providers Care Walnut Dehydrator Operator Name Role Phone CHITO SEGURA Primary [...] PART A Feb 16, 2018 PART A [id number] YENNY OVIEDO PATIENT MEDICARE (WNR) MEDICARE (M) PART B Feb 16, 2018 PART B [id number] YENNY OVIEDO ES PATIENT MEDICARE (WNR) MEDICARE (M) PART A Oct 17, 2006 PART A [id number] [facility] [phone] YENNY OVIEDO PATIENT FOR LIFE TFL* Apr 06, 2018 [id number] [phone] YENNY OVIEDO PATIENT Selected Encounter This section includes the information on record at [place] for the Encounter. Date/Time Encounter Type Encounter Description Reason Provider Source May 10, 2024 02:36 PM Outpatient Encounter PRIMARY CARE/MEDICINE BEVERLY FLORES IHE Encounter Template Text not used by [place] Plan of Treatment: Future Appointments (+ 6 months) and Future Tests (+/- 45 days) The Plan of Treatment section includes future care activities for the patient from all [place] [facility]. This section includes future appointments and future orders which are active, pending or scheduled. Future Appointments This section includes appointments that were scheduled to occur 6 months from the date of the Encounter, up to a maximum of 20 appointments. The data comes from all [place] treatment facilities. Appointment Date/Time Appointment Type Appointme nt Facility Name May 28, 2024 08:30 AM AMBULATORY - MEDICINE [place] C [facility] [facility] [facility] May 31, 2024 11:00 AM AMBULATORY - [facility]ICINE [place] [facility] Jun 01, 2024 07:30 AM [facility] Jun 28, 2024 08:00 AM AMBULATORY - MEDICINE [facility] Aug 23, 2024 08:00 AM [facility] October 08, 2024 09:00 AM [facility] Active, Pending, and Scheduled Orders This section includes a listing of several types of active, pending, and scheduled orders, including clinic medications orders, diagnostic test orders, procedure orders and consult orders; where the start date of the order is 45 days before the date of the Encounter or 45 days after the date of theEncounter. The data comes from all [facility]. Test Date/Time Test Type Test Details Facility Name Apr 15, 2024 07:42 AM Consult Order COMMUNITY CARE-CARDIAC SURGERY Cons White Spooler's Choice [facility] Social History: Smoking Status (Most [...] Ginger ellis Jul 21, 2023 01:30 PM [place]-TOBACCO FORMER USER [facility] Tobacco Use History This section includes a history of the smoking, or tobacco-related health factors, that were collected on or before the date of the Encounter. The data comes from the [place] facility where the Encounter took place. Date/Time Smoking Status/Tobacco Use Comment F acility Jul 21, 2023 01:30 PM VA-TOBACCO QUIT 15 YRS OR MORE [place]TR [place] [facility] Mar 28, 2021 03:28 PM VA-TOBACCO FORMER USER [place] [facility] Mar 28, 2021 03:28 PM VA-TOBACCO QUIT 15 YRS OR MORE [place]TR [place] [facility] Dec 02, 2019 09:36 AM VA-TOBACCO NEVER USED [place] CNTR [place] [facility] Apr 23, 2005 10:19 AM QUIT TOBACCO [facility] Advance Directives: All historical and current [...] 16, 2011 ADVANCE DIRECTIVE DISCUSSION MARGARITA TERRAZAS [place] Encounter Notes: All associated encounter notes This section contains the clinical notes associated to the Encounter. Date/Time Encounter Note(s) Provider Source May 10, 2024 02:36 PM PRIMARY CARE SECUR E MESSAGING: LOCAL TITLE: PRIMARY CARE SECURE MESSAGING STANDARD TITLE: PRIMARY CARE SECURE MESSAGING DATE OF NOTE: MAY 10, 2024@14:36 ENTRY DATE: MAY 10, 2024@14:36:52 AUTHOR: DERIC FLORES EXP COSIGNER: URGENCY: STATUS: COMPLETED ------Original Message -------- Sent: 05/10/2024 01:45 PM ET From: ANDREEA OVIEDO To: Sebas SEGURA_PRIMARY CARE_[facility] Subject: General:Cardiac admission I am being admitted to [facility] thru 05/13 or 05/14, then being transferred to [facility] for a specialized CT scan to determine specifications for the TAVR. I have an appointment with Dr. Mayes concerning this on 05/21/2024. Andreea Oviedo /lisa/ DERIC FLORES LPN Signed: 05/10/2024 14:36 DERIC FLORES [facility]
--- OUTSIDE RECORDS SUMMARY | 2024-05-24 16:47 | XMS_ITS | Patient Health Record ---
Author Organization [facility] Address [address] [place] [address] Care Team Providers Care Veneer Glue Spreader Name Role Phone Jamar Atkinson MD Primary Care Provider Migel Godinez Unavailable [phone] ALLERGIES Allergen (clinical drug ingredient) Drug/Non Drug [...] a day for 30 day(s) Active Saw [place] (Serenoa repens) 320 MG as directed Orally [...] reflux disease without esophagitis (K21.9) Active confirmed [id number] Problem Family history of colon cancer (Z80.0) Active confirmed 232658968 Problem Encounter for screening for malignant neoplasm of colon (Z12.11) Active confirmed 527683358 Problem 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) Active confirmed 950736069 Problem Diverticulosis of colon (K57.30) Active confirmed Diverticulosi s of colon (550669624) Problem Gastric polyp (K31.7) Active confirmed Gastric polyp (95012025) Problem Romeo esophagus (K22.70) Active confirmed Romeo esophagus (600346633) PLAN OF TREATMENT Pending Test Test Name Order Date Pathology 11/05/2021 Future Test Test Name Order Date UPPER GI ENDOSCOPY 07/28/2018 COLONOSCOPY 07/28/2018 UPPER GI ENDOSCOPY 09/19/2021 COLONOSCOPY 09/19/2021 Insurance Providers Payer Name Payer Address Payer Phone Subscriber Number Group Number Insured Name Patient Relationship to Insured Coverage Start Date Coverage End Date MEDICARE OF [place] [address] [place] [address] [id number] ANDREEA OVIEDO Self - patient is the insured [employer] [address] [place] [address] [phone] [id number] ANDREEA OVIEDO Self - patient is the insured MEDICAL (GENERAL) HISTORY Medical History History ICD Code NIDDM COPD Asthma PTSD Denies VA,CVA,renal disease BPH Negative colonoscopies in , 2006, [...]
--- OUTSIDE RECORDS SUMMARY | 2024-05-24 16:47 | XMS_ITS | Encounter Summary ---
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 [place] [facility] [place] Address [address] [place] [address] Care Team Providers Care Nail Setter Name Role Phone OMER MEDRANO Primary Care [...] PART A Feb 16, 2018 PART A [id number] [phone] YENNY OVIEDO PATIENT MEDICARE (WNR) MEDICARE (M) PART B Feb 16, 2018 PART B [id number] YENNY OVIEDO ES PATIENT MEDICARE (WNR) MEDICARE (M) PART A Oct 17, 2006 PART A [id number] [phone] YENNY OVIEDO PATIENT FOR LIFE TFL* Apr 06, 2018 [id number] YENNY OVIEDO PATIENT Selected Encounter This section includes the information on record at [place] for the Encounter. Date/Time Encounter Type Encounter Description Reason Pro vider Source May 17, 2024 01:40 PM Outpatient Encounter COMMUNITY CARE CONSULT IHE Encounter Template Text not used by [place] Plan of Treatment: Future Appointments (+ 6 months) and Future Tests (+/- 45 days) The Plan of Treatment section includes future care activities for the patient from all [place] [facility]. This section includes future appointments and future orders which are active, pending or scheduled. Future Appointments This section includes appointments that were scheduled to occur 6 months from the date of the Encounter, up to a maximum of 20 appointments. The data comes from all [facility] facilities. Appointment Date/Time Appointment Type Appointme nt Facility Name May 28, 2024 08:30 AM AMBULATORY [facility] May 31, 2024 11:00 AM [facility] Jun 01, 2024 07:30 AM AMBULATORY - NONE [facility] Jun 28, 2024 08:00 AM [facility]ORY - MEDICINE [facility] Aug 23, 2024 08:00 AM [facility] October 08, 2024 09:00 AM [facility] Active, Pending, and Scheduled Orders This [...] AM Consult Order COMMUNITY CARE-CARDIAC SURGERY Cons Briquetting Machine Operator's Choice [facility] Social History: Smoking Status (Most current) [...] Ginger ellis Jul 21, 2023 01:30 PM [place]-TOBACCO FORMER USER [facility] Tobacco Use History This section includes a history of the smoking, or tobacco-related health factors, that were collected on or before the date of the Encounter. The data comes from the [place] facility where the Encounter took place. Date/Time Smoking Status/Tobacco Use Comment F acility Jul 21, 2023 01:30 PM [place]-TOBACCO QUIT 15 YRS OR MORE [place] [facility] [place] [facility] Mar 28, 2021 03:28 PM VA-TOBACCO FORMER USER [place] [facility] [place] [facility] Mar 28, 2021 03:28 PM VA-TOBACCO QUIT 15 YRS OR MORE [place] [facility] [place] [facility] Dec 02, 2019 09:36 AM VA-TOBACCO NEVER USED [place] [facility] [place] [facility] Apr 23, 2005 10:19 AM QUIT TOBACCO USE IN PAST YEAR [place] [facility] [facility] Advance Directives: All historical and current [...] 16, 2011 ADVANCE DIRECTIVE DISCUSSION MARGARITA TERRAZAS [place] Encounter Notes: All associated encounter notes This section contains the clinical notes associated to the Encounter. Date/Time Encounter Note(s) Provider Source May 17, 2024 01:40 PM NONVA NOTE: LOCAL TITLE: COMMUNITY CARE-FIOR SELF PRESENTING CARE COORD PLAN STANDARD TITLE: NONVA NOTE DATE OF NOTE: MAY 17, 2024@13:40 ENTRY DATE: MAY 17, 2024@13:40:11 AUTHOR: MARIYA HINOJOSA COSIGNER: URGENCY: STATUS: COMPLETED COMMUNITY CARE-FIOR SELF PRESENTING CARE COORD PLAN NOTE Has ADDENDA Emergency Notification Intake Date Presenting to the Facility: Apr Method of Contact: Notified from Network Game Interaction worklist Notification ID: [id number] [facility] Referral #: [id number] [facility] Name: Hospital: [facility] Address: City: [place] State: [place] Zip Code: Phone : [facility] Facility Point of Contact: Name: Lea Phone: Chief complaint: T82.299D I50.30 Z79.01 I48.92 Primary Diagnosis: Disposition Admitted Route of Admission: ER Date of Admission: Apr Admitting Diagnosis: T82.857A I50.30 Z79.01 I48.92 Community Care Provider: Ramona Level of Care: /lisa/ MARIYA IRENE Signed: 05/17/2024 13:41 Receipt Acknowledged By: 05/17/2024 13:42 /es/ AISHA SANDERS RN REGISTERED NURSE 05/21/2024 08:25 /es/ SUSAN JASSO Registered Nurse Electron Beam Photo Mask Technician 05/18/2024 09:22 /es/ Omer Medrano PA-C STAFF PHYSICIAN AUTOMOBILE BODY REPAIRER HELPER 05/21/2024 ADDENDUM STATUS: COMPLETED was admitted to [facility] on 05/12 he was transfered from [facility] where he presented with symptoms of CHF. He was discharged on 05/14. /lisa/ SUSAN JASSO Registered Nurse Electron Beam Photo Mask Technician Signed: 05/21/2024 08:35 MARIYA HINOJOSA [place]
--- OUTSIDE RECORDS SUMMARY | 2024-05-24 16:47 | XMS_ITS ---
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 Address [address] [place] [address] Care Team Providers Care Fire Engine Operator Name Role Phone OMER MEDRANO Primary [...] PART A Feb 16, 2018 PART A [id number] YENNY OVIEDO PATIENT MEDICARE (WNR) MEDICARE (M) PART B Feb 16, 2018 PART B [id number] YENNY OVIEDO ES PATIENT MEDICARE (WNR) MEDICARE (M) PART A Oct 17, 2006 PART A [id number] YENNY OVIEDO PATIENT FOR LIFE TFL* Apr 06, 2018 [id number] [phone] YENNY OVIEDO PATIENT Selected Encounter This section includes the information on record at [place] for the Encounter. Date/Time Encounter Type Encounter Description Reason Pro vider Source May 17, 2024 12:23 PM Outpatient Encounter COMMUNITY CARE CONSULT IHE Encounter Template Text not used by [place] Plan of Treatment: Future Appointments (+ 6 months) and Future Tests (+/- 45 days) The Plan of Treatment section includes future care activities for the patient from all [place] [facility]. This section includes future appointments and future orders which are active, pending or scheduled. Future Appointments This section includes appointments that were scheduled to occur 6 months from the date of the Encounter, up to a maximum of 20 appointments. The data comes from all [facility] facilities. Appointment Date/Time Appointment Type Appointme nt Facility Name May 28, 2024 08:30 AM [facility] May 31, 2024 11:00 AM [facility] Jun 01, 2024 07:30 AM AMBULATORY - NONE [facility] Jun 28, 2024 08:00 AM AMBULATORY - MEDICINE [facility] Aug 23, 2024 08:00 AM [facility] October 08, 2024 09:00 AM AMBULATORY [facility] Active, Pending, and Scheduled Orders This section includes a listing of several types of active, pending, and scheduled orders, including clinic medications orders, diagnostic test orders, procedure orders and consult orders; where the start date of the order is 45 days before the date of the Encounter or 45 days after the date of theEncounter. The data comes from all [facility]. Test Date/Time Test Type Test Details Facility Name Apr 15, 2024 07:42 AM Consult Order COMMUNITY CARE-CARDIAC SURGERY Cons Seafood And Service Meat Manager's Choice [facility] Social History: Smoking Status (Most current) [...] Ginger fortuney Jul 21, 2023 01:30 PM [place]-TOBACCO FORMER USER [facility] Tobacco Use History This section includes a history of the smoking, or tobacco-related health factors, that were collected on or before the date of the Encounter. The data comes from the [place] facility where the Encounter took place. Date/Time Smoking Status/Tobacco Use Comment F acility Jul 21, 2023 01:30 PM VA-TOBACCO QUIT 15 YRS OR MORE [place] [facility] [facility] [facility] Mar 28, 2021 03:28 PM VA-TOBACCO FORMER USER [place] [facility] [facility] [facility] Mar 28, 2021 03:28 PM VA-TOBACCO QUIT 15 YRS OR MORE [place] [facility] [place] [facility] Dec 02, 2019 09:36 AM VA-TOBACCO NEVER USED [place] [facility] [facility] [facility] Apr 23, 2005 10:19 AM QUIT TOBACCO USE IN PAST YEAR [place] [facility] Advance Directives: All historical and current [...] 16, 2011 ADVANCE DIRECTIVE DISCUSSION MARGARITA TERRAZAS [place] Encounter Notes: All associated encounter notes This section contains the clinical notes associated to the Encounter. Date/Time Encounter Note(s) Provider Source May 17, 2024 12:23 PM NONVA NOTE: LOCAL TITLE: [facility] PRESENTING CARE COORD PLAN STANDARD TITLE: NONVA NOTE DATE OF NOTE: MAY 17, 2024@12:23 ENTRY DATE: MAY 17, 2024@12:24:03 AUTHOR: MARIYA HINOJOSA COSIGNER: URGENCY: STATUS: COMPLETED Emergency Notification Intake Date Presenting to the Facility: Apr Method of Contact: Notified from [facility] worklist Notification ID: [id number] [facility] Referral [facility] Hospital Name: Hospital: [facility] Address: City: [place] State: [place] Zip Code: Phone : [facility] Facility Point of Contact: Name: [place] Phone: Chief complaint: SPITTING UP BLOOD, CHILLS Primary Diagnosis: CHF, PROSTHETIC MITRAL VALVE STENOSIS Disposition Admitted Route of Admission: ER Date of Admission: Apr Admitting Diagnosis: CHF, PROSTHETIC MITRAL VALVE STENOSIS Community Care Provider: Confirm Level of Care: /es/ MARIYA HINOJOSA AMSA Signed: 05/17/2024 12:25 Receipt Acknowledged By: 05/17/2024 13:07 /es/ AISHA SANDERS, MANJU REGISTERED NURSE 05/21/2024 08:42 /es/ SUSAN JASSO Registered Nurse Wharf Helper 05/18/2024 09:22 /es/ Omer Medrano PA-C STAFF PHYSICIAN DESKTOP PUBLISHING OPERATOR MARIYA HINOJOSA [place]
--- OUTSIDE RECORDS SUMMARY | 2024-05-24 16:47 | XMS_ITS | Encounter Summary ---
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 Address [address] [place] [address] Care Team Providers Care Cannon Fire Direction Specialist Name Role Phone CHITO SEGURA Primary [...] PART A Feb 16, 2018 PART A [id number] YENNY OVIEDO PATIENT MEDICARE (WNR) MEDICARE (M) PART B Feb 16, 2018 PART B [id number] YENNY OVIEDO ES PATIENT MEDICARE (WNR) MEDICARE (M) PART A Oct 17, 2006 PART A [id number] [facility] [phone] YENNY OVIEDO PATIENT FOR LIFE TFL* Apr 06, 2018 [id number] YENNY OVIEDO PATIENT Selected Encounter This section includes the information on record at [place] for the Encounter. Date/Time Encounter Type Encounter Description Reason Provider Source May 17, 2024 10:53 AM Outpatient Encounter PRIMARY CARE/MEDICINE BEVERLY FLORES IHE Encounter Template Text not used by [place] Plan of Treatment: Future Appointments (+ 6 months) and Future Tests (+/- 45 days) The Plan of Treatment section includes future care activities for the patient from all [place] [facility]. This section [...] 28, 2024 08:30 AM AMBULATORY - MEDICINE [place] C [facility] May 31, 2024 11:00 AM AMBULATORY - MEDICINE [place] [facility] Jun 01, 2024 07:30 AM [facility]UL[facility]ORY - NONE [facility] Jun 28, 2024 08:00 AM AMBULATORY - MEDICINE [facility] Aug 23, 2024 08:00 AM [facility] October 08, 2024 09:00 AM [facility] Active, Pending, and Scheduled Orders This section includes a listing of several types of active, pending, and scheduled orders, including clinic medications orders, diagnostic test orders, procedure orders and consult orders; where the start date of the order is 45 days before the date of the Encounter or 45 days after the date of theEncounter. The data comes from all [facility]. Test Date/Time Test Type Test Details Facility Name Apr 15, 2024 07:42 AM Consult Order COMMUNITY CARE-CARDIAC SURGERY Cons Rounder Hand's Choice [facility] Social History: Smoking Status (Most [...] Ginger ellis Jul 21, 2023 01:30 PM [place]-TOBACCO FORMER USER [facility] Tobacco Use History This section includes a history of the smoking, or tobacco-related health factors, that were collected on or before the date of the Encounter. The data comes from the [place] facility where the Encounter took place. Date/Time Smoking Status/Tobacco Use Comment F acility Jul 21, 2023 01:30 PM VA-TOBACCO QUIT 15 YRS OR MORE [place] [facility] [place] [facility] Mar 28, 2021 03:28 PM VA-TOBACCO FORMER USER [place] [facility] Mar 28, 2021 03:28 PM VA-TOBACCO QUIT 15 YRS OR MORE [place] [facility] [place] [facility] Dec 02, 2019 09:36 AM VA-TOBACCO NEVER USED [place] [facility] [place] [facility] Apr 23, 2005 10:19 AM QUIT TOBACCO USE IN PAST YEAR [facility] Advance Directives: All historical and [...] 16, 2011 ADVANCE DIRECTIVE DISCUSSION MARGARITA TERRAZAS [place] Encounter Notes: All associated encounter notes This section contains the clinical notes associated to the Encounter. Date/Time Encounter Note(s) Provider Source May 17, 2024 10:53 AM PRIMARY CARE SECURE MESSAGING: LOCAL TITLE: PRIMARY CARE SECURE MESSAGING STANDARD TITLE: PRIMARY CARE SECURE MESSAGING DATE OF NOTE: MAY 17, 2024@10:53 ENTRY DATE: MAY 17, 2024@10:53:01 AUTHOR: DERIC FLORES EXP COSIGNER: URGENCY: STATUS: COMPLETED ------Original Message ------ Sent: 05/15/2024 10:24 AM ET From: ANDREEA OVIEDO To: Sebas SEGURA_PRIMARY CARE_[facility] Subject: General:Followed instructions and information Per instructions I called the emergency number to assure I have done all that is required in sharing information with you. I spoke with a rep who was extremely helpful and provided me case ref numbers for both [facility] and [facility] admissions. I also was provided an auth number for my [facility] admission. The delivery representative has informed me that I have completed all that I am responsible for at this time and there are no more items that require action from me. Again, please let me or my know if there is something you need or I must do to keep things progressing smoothly. Happy , Edwar Wilye ------Original Message ------ Sent: 05/17/2024 08:22 AM ET From: DERIC FLORES To: ANDREEA OVIEDO Subject: General:Followed instructions and information Thank You, we will contact you for any other information needed. We hope you are on the mend. Happy ! ------Original Message ------ Sent: 05/17/2024 10:45 AM ET From: ANDREEA OVIEDO To: Sebas SEGURA_PRIMARY CARE_[facility] Subject: General:Followed instructions and information Thank you for the reply. My DOREEN is tomorrow at [facility] and from there I hope to hear of a date to address the deteriorating mitral valve replacement by use of a TMVR instead of a thoracotomy approach. Will keep you all current as things progress in the event something needs to be done or shared on our end. Teresa /lisa/ DERIC FLORES LPN Signed: 05/17/2024 10:53 DERIC FLORES [place] [facility]
== END 2024-05-24 15:26 | disposition home or self-care (01) ==
PROVIDERS: PCP Internal Medicine; Visit Provider Internal Medicine Cardiovascular Disease
DX: I50.33 Acute on chronic diastolic (congestive) heart failure (principal); I38 Endocarditis, valve unspecified; T82.857A Stenosis of other cardiac prosthetic devices, implants and grafts, initial encounter; I48.3 Typical atrial flutter
CPT/HCPCS: 99215; G2211

== ENCOUNTER → 2024-05-24 14:26 | Outpatient (BNVA) | payer OTHER, SELFPAY | PROVIDERS: PCP Internal Medicine; Visit Provider Internal Medicine Cardiovascular Disease | DX: I50.33 Acute on chronic diastolic (congestive) heart failure (principal); I38 Endocarditis, valve unspecified; I48.3 Typical atrial flutter; T82.857D Stenosis of other cardiac prosthetic devices, implants and grafts, subsequent encounter | CPT/HCPCS: 99212 ==

== ENCOUNTER 2024-06-17 06:06 | Outpatient (REF) | payer MEDICARE, OTHER, SELFPAY ==
--- OUTSIDE RECORDS SUMMARY | 2024-06-17 06:09 | XMS_ITS | Patient Health Record ---
Author Organization [facility] Address [address] [place] [address] Care Team Providers Care Political Advisor Name Role Phone Jamar Atkinson MD Primary Care Provider Migel Godinez Unavailable [phone] ALLERGIES Allergen (clinical drug ingredient) Drug/Non Drug [...] a day for 30 day(s) Active Saw [place] (Serenoa repens) 320 MG as directed Orally [...] reflux disease without esophagitis (K21.9) Active confirmed 894040369 Problem Family history of colon cancer (Z80.0) Active confirmed 079341470 Problem Encounter for screening for malignant neoplasm of colon (Z12.11) Active confirmed 187108917 Problem 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) Active confirmed 546417897 Problem Diverticulosis of colon (K57.30) Active confirmed Diverticulosi s of colon (419406812) Problem Gastric polyp (K31.7) Active confirmed Gastric polyp (36488309) Problem Romeo esophagus (K22.70) Active confirmed Romeo esophagus (141654798) PLAN OF TREATMENT Pending Test Test Name Order Date Pathology 11/05/2021 Future Test Test Name Order Date UPPER GI ENDOSCOPY 07/28/2018 COLONOSCOPY 07/28/2018 UPPER GI ENDOSCOPY 09/19/2021 COLONOSCOPY 09/19/2021 Insurance Providers Payer Name Payer Address Payer Phone Subscriber Number Group Number Insured Name Patient Relationship to Insured Coverage Start Date Coverage End Date MEDICARE OF [place] [address] [place] [address] [id number] ANDREEA OVIEDO Self - patient is the insured [employer] [address] [place] [address] [phone] [id number] ANDREEA OVIEDO Self - patient is the insured MEDICAL (GENERAL) HISTORY Medical History History ICD Code NIDDM COPD Asthma PTSD Denies [place],CVA,renal disease BPH Negative colonoscopies in , 2006, [...]
[2024-06-17 06:28] LABS: MANUAL DIFF FLAG NO
[2024-06-17 07:32] LABS: Basophils Percent Auto 0.6 % (0-2); Eosinophils Absolute Auto 0.1 X10*3/uL (0.0-0.4); Hematocrit 36.6 % (42.0-52.0); Hemoglobin 12.2 g/dl (14.0-18.0); Imm Gran Abs Auto 0.02 X10*3/uL (0.00-0.03); Imm Gran Pct Auto 0.3 % (0.0-0.4); Lymphocytes Absolute Auto 0.7 X10*3/uL (1.2-4.9); Lymphocytes Percent Auto 10.4 % (20-40); Mean Corpuscular HGB Conc 33.3 g/dl (31.0-36.0); Mean Corpuscular Hemoglobin 29.6 pg (27.0-33.0); Mean Corpuscular Volume 88.8 fL (80.0-98.0); Mean Platelet Volume 9.9 fL (9.4-12.4); Monocytes Absolute Auto 0.5 X10*3/uL (0.1-1.2); Monocytes Percent Auto 7.2 % (2-11); Neutrophils Absolute Auto 5.2 x10*3/uL (2.0-8.3); Neutrophils Percent Auto 79.5 % (45-73); Platelet Count 106 X10*3/uL (160-400); Red Blood Count 4.12 X10*6/uL (4.60-5.80); Red Cell Distribution Width 14.6 % (11.0-16.0); White Blood Count 6.5 X10*3/uL (4.8-10.8)
[2024-06-17 07:55] LABS: Alanine Aminotransferase 10 U/L (0-40); Albumin Level 3.7 g/dL (3.5-5.0); Alkaline Phosphatase 54 U/L (39-117); Anion Gap 14 (12-20); Aspartate Amino Transferase 17 U/L (5-37); Bilirubin Total 1.4 mg/dL (0.0-1.0); Blood Urea Nitrogen 30 mg/dL (9-16); Calcium 9.1 mg/dL (8.4-10.2); Carbon Dioxide 26 mmol/L (22-29); Chloride 104 mmol/L (96-108); Cholesterol 107 mg/dL (<200); Estimated Glomerular Filt Rate > 60; Glucose Fasting 166 mg/dL (60-99); HDL Cholesterol 35 mg/dL (>40); LDL Cholesterol Calculated 50 mg/dL (<100); Potassium 3.8 mmol/L (3.3-5.1); Sodium 140 mmol/L (135-145); Total Protein 7.1 g/dL (6.5-8.0); Triglycerides 112 mg/dL (<150)
[2024-06-17 08:15] LABS: Prostate Specific Antigen < 0.10 ng/mL (<0.05-4.0)
== END 2024-06-17 06:07 | disposition home or self-care (01) ==
LOC: HO.LAB 06:06
PROVIDERS: PCP Internal Medicine; Visit Provider Internal Medicine
DX: Z00.00 Encounter for general adult medical examination without abnormal findings (principal); E11.9 Type 2 diabetes mellitus without complications; Z12.5 Encounter for screening for malignant neoplasm of prostate; I48.91 Unspecified atrial fibrillation; J44.9 Chronic obstructive pulmonary disease, unspecified
CPT/HCPCS: 36415; 80053; 80061; 84153; 85025

== ENCOUNTER 2024-06-21 14:53 | Outpatient (AMB) | payer OTHER, SELFPAY ==
[2024-06-21 15:07] VITALS: BP 110/66; PULSE 110; BMI 29.0
--- NOTE | 2024-06-21 15:07 | A.OFFVIS_ITS ---
Vital Signs 06/21/24 15:07 Height 5 ft 9 in Weight 196 lb 3.382 oz BMI 29.0 BP 110/66 Blood Pressure Location Lt brachial Position Sitting Pulse 110 H Intake Visit Reasons: 4 wk follow up Intake Note: 4 week follow-up having surgery Friday not feeling well sob dizzy Ornament Stapler Required: No Fiberglass Container Winding Operator: Fiberglass Container Winding Operator Present Accompanied by: Spouse Allergies DUSTIN Inhibitors [Dustin Inhibitors] Allergy (Severe, Verified 05/10/24 07:32) Anaphylaxis aspirin Allergy (Severe, Verified 05/10/24 07:32) Anaphylaxis NSAIDS (Non-Steroidal Anti-Inflamma [NSAIDS (NON-STEROIDAL ANTI-INFLAMMA] Allergy (Severe, Verified 05/10/24 07:32) Anaphylaxis pineapple [PINEAPPLE] Allergy (Severe, Verified 05/10/24 07:32) Angioedema thimerosal [Thimerosal] Allergy (Severe, Verified 05/10/24 07:32) Angioedema Cephalosporins [CEPHALOSPORINS] Allergy (Intermediate, Verified 05/10/24 07:32) Rash fluoxetine [From PROZAC] Allergy (Intermediate, Verified 05/10/24 07:32) REQUIRED HOSPITALIZATION Penicillins Allergy (Intermediate, Verified 05/10/24 07:32) Rash tamsulosin Allergy (Mild, Verified 05/10/24 07:32) tacycardia aspartame [ASPARTAME] Allergy (Unknown, Verified 05/10/24 07:32) Unknown hexachlorophene [From PHISOHEX] Allergy (Unknown, Verified 05/10/24 07:32) Unknown melon Allergy (Unknown, Verified 05/10/24 07:32) Unknown perfume Allergy (Unknown, Verified 05/10/24 07:32) Unknown povidone-iodine [From BETADINE] Allergy (Unknown, Verified 05/10/24 07:32) Unknown soap [Betadine] Allergy (Unknown, Verified 05/10/24 07:32) Unknown codeine [Codeine] Adverse Reaction (Intermediate, Verified 05/10/24 07:32) wakes up combative meperidine [From Demerol] Adverse Reaction (Intermediate, Verified 05/10/24 07:32) Hallucinations monosodium glutamate Adverse Reaction (Intermediate, Verified 05/10/24 07:32) Headache morphine Adverse Reaction (Intermediate, Verified 05/10/24 07:32) wakes up combative dexon Allergy (Unknown, Uncoded 04/13/24 10:15) Unknown GLUE IN SHOES Allergy (Unknown, Uncoded 04/13/24 10:15) UNKNOWN PLASTIC TAPE Allergy (Unknown, Uncoded 04/13/24 10:15) skin problems POLYGLACTIC ACID(DEXON & VICRYL) Allergy (Unknown, Uncoded 04/13/24 10:15) UNKNOWN vicryl Allergy (Unknown, Uncoded 04/13/24 10:15) Unknown Medication List - Last Reconciled 06/21/24 by James Fernando MD apixaban (Eliquis) 5 mg PO BID atorvastatin 20 mg PO BEDTIME jdmeoezpje-nyxagqkmthxbi-rubk 50-325-40 mg 1 tab PO DAILY PRN cholecalciferol (vitamin D3) 50 mcg PO DAILY clonazepam 0.5 mg PO DAILY PRN cyanocobalamin (vitamin B-12) 100 mcg PO DAILY diltiazem HCl CD 120 mg PO BEDTIME empagliflozin (Jardiance) 10 mg PO DAILY epinephrine (EpiPen) 0.3 mg IM Q10M PRN finasteride 5 mg PO DAILY fluticasone propionate 50 mcg/actuation (Flonase Allergy Relief) 1 spray intranasal BID furosemide 40 mg See Protocol PO DAILY levalbuterol tartrate 45 mcg/actuation 2 puffs inhalation BID PRN metformin ER 750 mg PO BID mometasone (Asmanex Twisthaler) 2 inhalations inhalation BID omeprazole 40 mg PO DAILY@0630 saw palmetto 160 mg PO DAILY spironolactone 12.5 mg (1/2 x 25 mg) PO DAILY tadalafil (Cialis) 5 mg PO BEDTIME terazosin 10 mg PO DAILY HPI Comments Details: Jared comes for follow-up. He has noted gradual decline in his overall exercise capacity with progressively worsening shortness of breath with minimal exertion. He also has significant orthopnea and has to sleep in his recliner. He said all he also feels very weak and has disequilibrium now. He is scheduled to undergo transcatheter mitral valve replacement of bioprosthetic mitral stenosis on June [address] Mayes. Plan to be performed at [facility]. He remains in atrial flutter. He was had no evidence of fluid gain. Denies any abdominal distension, leg edema. He has gradually lost some weight. He is taking all his medications. No palpitations. No syncopal episodes. He was stopped his Jardiance for the purposes of the procedure. He is also off Eliquis after tomorrow. [facility] Medical History (Updated 06/21/24 @ 15:40 by James Fernando MD) Paroxysmal atrial flutter Prosthetic valve dysfunction Atrial flutter Elevated cholesterol History of GI diverticular bleed BPH (benign prostatic hyperplasia) History of blood transfusion GERD (gastroesophageal reflux disease) Type 2 diabetes mellitus Depression with anxiety PTSD (post-traumatic stress disorder) Migraine COPD, mild Asthma HTN (hypertension) Obstructive sleep apnea Enlarged RV (right ventricle) Mitral regurgitation Surgical History (Updated 06/21/24 @ 15:40 by James Fernando MD) S/P MVR (mitral valve replacement) History of esophagogastroduodenoscopy (EGD) H/O colonoscopy History of excision of lesion (06/25/22) History of arthroscopy of right knee History of left inguinal hernia repair History of repair of right rotator cuff History of repair of left rotator cuff History of mitral valve replacement Hx of cardiac cath Family History Father Rheumatic fever Mother No problems noted. 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, 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 Review of Systems Const Denies chills, Denies fatigue, Denies fever(s), Denies frequent falls, Denies weakness, Denies weight gain and Denies weight loss ENT Denies dizziness Card Denies chest pain, Denies leg edema, Denies lightheadedness, Denies palpitations, Denies dyspnea, Denies dyspnea on exertion, Denies orthopnea and Denies other (loss of consciousness) Resp Denies cough, Denies dyspnea and Denies dyspnea on exertion GI Denies hematochezia and Denies change in stool character Musc Denies abnormal gait, Denies muscle weakness, Denies numbness, Denies radiating pain into limb and Denies tingling Neuro Denies abnormal gait, Denies dizziness, Denies frequent falls, Denies numbness, Denies tingling and Denies weakness Endo Denies fatigue and Denies palpitations Physical Exam Vital Signs: Last Vital Signs Pulse 110 H 06/21/24 15:07 BP 110/66 06/21/24 15:07 BMI result Body Mass Index 29.0 Const General: cooperative, healthy appearing, comfortable and no acute distress Orientation/consciousness: patient oriented x3 Neck Neck: Yes normal visual inspection Resp Effort & Inspection: normal respiratory effort Auscultation: clear to auscultation bilaterally, no rales, no rhonchi and no wheezes Cardio Jugular venous distension: no JVD Rate: regular rate Rhythm: abnormal rhythm Heart sounds: S1 normal heart sound present, S2 normal heart sound present, no murmurs and no rubs Neuro General: patient oriented x3 Extrem Other: sock marking present General: Yes normal to inspection Psych Appearance: grossly normal Mental Status: mental status grossly normal Speech and movement: Normal speech and movement present Assessment & Plan Assessment & Plan (1) Prosthetic mitral valve stenosis: Code(s): T82.857A - Stenosis of other cardiac prosthetic devices, implants and grafts, initial encounter Category: Medical Plan: Prosthetic mitral valve stenosis with progressive symptoms with markedly limited exercise capacity with significant shortness of breath. Plan to undergo transcatheter mitral valve replacement in the near future. I think this is going to lead to significant improvement in his overall symptoms. There has been overall significant deterioration in his overall health including deconditioning. I would recommend once he has completed treatment is feeling better would participate in phase 2 cardiac rehabilitation. He is scheduled for an echocardiogram in 2 weeks time. I would advise him to restart his oral anticoagulation therapy as well as Jardiance and diuretic therapy post procedure and gradually withdrawn as needed. Will need to discuss about atrial flutter management, see below. 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 Continue furosemide therapy. His Jardiance has been withheld for the upcoming procedure. Continue rate control approach. Additional diuretics as need be. Will do significantly better since valve replacement. (3) Atrial flutter: Code(s): I48.92 - Unspecified atrial flutter Category: Medical Qualifiers: Atrial flutter type: typical Qualified Code(s): I48.3 - Typical atrial flutter Plan: Persistent atrial flutter most likely related to untreated prosthetic mitral valve stenosis and has not been able to maintain rhythm. Continue rate control for now. Continue full oral anticoagulation Eliquis. Will discuss rhythm management wants to mitral valve is replaced and Ca if there is any significant clinical improvement. I think in the long run she would pursue rhythm control approach Will follow up in the clinic in 6 weeks time, sooner p.r.n.. Thank you for allowing me to partake in his care Coding Level of Care Code Est Pt Level 4 (06100) Complex EM visit Add On G2211 Diagnoses Prosthetic mitral valve stenosis T82.857A Acute on chronic diastolic heart failure due to valvular disease I50.33; I38 Typical atrial flutter I48.3 Atrial flutter type: typical
== END 2024-06-21 15:36 | disposition home or self-care (01) ==
PROVIDERS: PCP Internal Medicine; Visit Provider Internal Medicine Cardiovascular Disease
DX: T82.857A Stenosis of other cardiac prosthetic devices, implants and grafts, initial encounter (principal); I50.33 Acute on chronic diastolic (congestive) heart failure; I38 Endocarditis, valve unspecified; I48.3 Typical atrial flutter
CPT/HCPCS: 99214; G2211

== ENCOUNTER → 2024-06-21 14:53 | Outpatient (BNVA) | payer OTHER, SELFPAY | PROVIDERS: PCP Internal Medicine; Visit Provider Internal Medicine Cardiovascular Disease | DX: T82.857A Stenosis of other cardiac prosthetic devices, implants and grafts, initial encounter (principal); I38 Endocarditis, valve unspecified; I50.33 Acute on chronic diastolic (congestive) heart failure; I48.3 Typical atrial flutter; Z79.01 Long term (current) use of anticoagulants | CPT/HCPCS: 99212 ==

== ENCOUNTER → 2024-08-02 07:40 | Outpatient (REF) | payer MEDICARE, OTHER, SELFPAY ==
--- NOTE | 2024-08-02 07:54 | CA_ITS ---
Transthoracic Echocardiogram Patient (Last, First, Middle): Jared Jama, Gender: Male Date of : 1955 Age: 69 Procedure Date: 08/02/2024 Procedure Type: Transthoracic Echocardiogram Location: OP Height: 175.26 cm Weight: 85.28 kg BSA: 2.01 m2 Heart Rate: 76 bpm BP: 85 / 50 mmHg Testing Manager: AMANDA Sandhu MD: Dayana Mayes MD Symptoms: s/p MVR Study Quality: Fair ECG Rhythm: Atrial Fibrillation Conclusions: - The left ventricular systolic function is normal. The calculated ejection fraction is 63% by biplane method. - A bioprosthetic mitral valve is present. The prosthetic mitral valve appears to be functioning normally. Findings Left Ventricle Normal left ventricular cavity size. The left ventricular systolic function is normal. The calculated ejection fraction is 63% by biplane method. There is no evidence of regional wall motion abnormalities. Diastolic function is indeterminate on the basis of available data. There is mild septal asymmetric hypertrophy. Right Ventricle Mildly increased right ventricular cavity size. There is low normal right ventricular systolic function. Atria The left atrium is moderately dilated. The right atrium is normal in size. Aortic Valve There is a normal trileaflet aortic valve. There is mild calcification of the aortic valve. There is no aortic valve stenosis. There is no aortic valve regurgitation. Mitral Valve A bioprosthetic mitral valve is present. The prosthetic mitral valve appears to be functioning normally. There is no mitral valve regurgitation. Mean gradient across the mitral valve 6-7 mm Hg at 74/Min. Pulmonic Valve The pulmonic valve is likely normal. Tricuspid Valve There is mild tricuspid valve regurgitation. There is no evidence of pulmonary hypertension. Great Vessels The asc aorta and aortic arch are normal in size. Venous The inferior vena cava is dilated and collapses greater than 50% with inspiration. Pericardium/Pleural There is no evidence of pericardial effusion. Prior Study Comparison No significant change compared to prior study dated: 02/26/2024. Measurements 2D Linear Measurements IVSd: 1.08 0.6-0.9/0.6-1.0 cm LVIDd: 3.29 3.9-5.3/4.2-5.9 cm LVIDd Index: 1.64 2.4-3.2/2.2-3.1 cm/m2 LVIDs: 2.11 2.0-3.6 cm LVPWd: 0.99 0.7-1.1 cm LA Diam: 3.70 2.7-3.8/3.0-4.0 cm LAIDs Index: 1.84 1.5-2.3 cm/m2 LV Mass: 123.11 67-162/88-224 g LV Mass Index: 61.25 43-95/49-115 g/m2 LVOT Diam: 2.50 3.0+(-)1.3 cm 2D Systolic Function EF 4C: 60.40 >55% EF 2C: 64.10 >55% EF BiP: 63.40 >55% Mitral Valve MV VTI: 0.67 MV Pk Jose: 1.98 MV Mn Jose: 1.31 MV Pk Grad: 16.00 MV Mn Grad: 8.00 MV Pk E: 2.12 MV PK A: 1.45 MV Decel Time: 190.00 E/A: 1.50 E'Lateral: 7.51 E'Medial: 7.14 E/E' Med: 29.70 E/E' Lat: 28.20 PHT: 56.00 MVA PHT: 3.93 MVA Continuity: 1.76 Decel [place]: 11.17 Aortic Valve AoV Pk Jose: 1.63 AoV Mn Jose: 1.20 AoV VTI: 0.33 AoV Pk Grad: 11.00 Aov Mn Grad: 6.00 ANDRES Cont.VTI: 3.54 LVOT LVOT Pk Jose: 1.18 LVOT Mn Jose: 0.84 LVOT VTI: 0.24 LVOT Pk Grad: 6.00 LVOT Mn Grad: 3.00 LVOT Diam: 2.50 LVOT Area: 4.91 Diastolic Function MV Pk E: 2.12 MV Pk A: 1.45 E/A: 1.50 E'Medial: 7.14 E/E' Med: 29.70 E' Laterial: 7.51 E/E' Lat: 28.20 Right Ventricle TAPSE (mm): 16.40 TVS' Jose: 10.20 Tricuspid Valve TR Pk Jose: 2.49 TR Pk Grad: 25.00 RA Press: 8.00 RVSP: 33.00 Great Vessels Aorta Sinus of Valsalva: 3.90 2.0-3.5 cm Ao Asc: 3.90 2.1-3.4 cm Ao Arch: 3.40 Pulmonary Valve PV Pk Jose: 1.07 Peak PV Grad: 5.00 Updated in Other Vendor System with Status of Final Ok Montero MD electronically signed on 08/02/2024 9:48:03 AM with status of Final
== END ==
LOC: HO.CARD 07:40
PROVIDERS: PCP Internal Medicine; Visit Provider Internal Medicine Cardiovascular Disease
DX: I34.2 Nonrheumatic mitral (valve) stenosis (principal)
CPT/HCPCS: 93306

== ENCOUNTER → 2024-08-02 07:54 | Outpatient (BNV) | payer MEDICARE, OTHER, SELFPAY | PROVIDERS: PCP Internal Medicine; Visit Provider Internal Medicine | DX: Z95.2 Presence of prosthetic heart valve (principal); I35.1 Nonrheumatic aortic (valve) insufficiency | CPT/HCPCS: 93306 ==

== ENCOUNTER 2024-08-14 15:08 | Inpatient (IN) | payer OTHER, SELFPAY ==
--- NOTE | ~2024-08-14 | CT_ITS ---
CLINICAL HISTORY: Stroke Protocol CTA HEAD WITH CONTRAST, 3D POSTPROCESSING CTA NECK WITH CONTRAST, WITH 3D POSTPROCESSING Comparison: CT/SR - CT HEAD FOR STROKE - 08/14/24 15:17 EDT Findings: Aortic arch: Three-vessel arch with patent branch origins. Vertebral arteries: No occlusion or dissection. The left vertebral artery is dominant. Extracranial carotid arteries: There is calcific plaque in the right carotid bifurcation and proximal ICA. There is 65 percent stenosis in the proximal ICA per NASCET criteria. There is calcific plaque in the proximal left ICA with 50 percent stenosis. No occlusion, aneurysm or dissection. Intracranial carotid arteries: Bilateral calcific plaque. No occlusion or flow-limiting stenosis. Vertebrobasilar system: Patent. The right vertebral artery terminates in the PICA, a normal variant Cerebellar arteries: Patent. Posterior cerebral arteries: Patent. No occlusion or aneurysm. Anterior cerebral arteries: Patent. No occlusion or aneurysm. Hypoplastic A1 segment on the right is a normal variant. Middle cerebral arteries: Patent. No occlusion or aneurysm. No enhancing intracranial mass lesion. Dural venous sinuses are patent. No enhancing cervical mass or fluid collection. There is a 1.9 cm heterogeneous hyperdense lesion in the right lobe of the thyroid. No acute abnormalities in the included lungs. No acute osseous abnormalities. Median sternotomy. Impression: 1. Patent head CTA. No large vessel occlusion or flow-limiting stenosis. 2. Calcific plaque in the bilateral proximal ICAs with 65 percent stenosis on the right and 50 percent stenosis on the left. 3. Indeterminate right thyroid lesion can be further characterized with ultrasound on a nonemergent elective basis. This document has been electronically signed by: Yissel Shepard DO on 08/14/2024 16:33:16
--- NOTE | ~2024-08-14 | CT_ITS ---
CLINICAL HISTORY: Stroke Protocol CT HEAD WITHOUT CONTRAST Comparison: None Findings: No acute intracranial hemorrhage, extra-axial fluid collection, hydrocephalus or midline shift. Age appropriate generalized parenchymal atrophy. There are periventricular and subcortical white matter hypodensities which are nonspecific but most likely related to microangiopathic gliosis. No evidence for acute large territorial infarct. Remote lacunar infarct in the right basal ganglia. Remote lacunar infarct versus prominent perivascular space in the left lentiform nucleus. Intracranial arteriosclerosis. Nonspecific mucosal thickening in the bilateral maxillary and left sphenoid sinuses. No mastoid fluid. Visualized orbits: No acute abnormalities. There is no acute fracture. IMPRESSION: 1. No acute intracranial process. This document has been electronically signed by: Yissel Shepard DO on 08/14/2024 15:47:31
--- NOTE | ~2024-08-14 | MR_ITS ---
CLINICAL HISTORY: TIA MR Brain without gadolinium Comparison: CT/[place]/SR - CT HEAD FOR STROKE - 08/14/24 15:17 EDT Findings: There is 11 mm focus of restricted diffusion in the right lentiform nucleus. There is a 6 mm focus of restricted diffusion in the body of the right caudate. No intra-axial mass or hemorrhage. No midline shift. No hydrocephalus. Prominent perivascular space in the left lentiform nucleus. Vascular flow voids are intact. Visualized orbits: No acute abnormalities. Nonspecific maxillary, ethmoid and sphenoid sinus disease. No focal bone lesion. IMPRESSION: 1. Acute lacunar infarcts in the right basal ganglia. 2. Minimal burden of periventricular and subcortical white matter signal alteration. Findings are nonspecific. Differential diagnosis includes but is not limited to microangiopathic gliosis, chronic migraines, remote trauma, remote inflammatory/infectious process or demyelinating process. 3. Nonspecific paranasal sinus disease. This document has been electronically signed by: Yissel Shepard DO on 08/14/2024 20:11:13
--- NOTE | 2024-08-14 15:13 | ECG_ITS ---
Test Reason : ?STROKE Blood Pressure : */* mmHG Vent. Rate : 85 BPM Atrial Rate : * BPM P-R Int : * ms QRS Dur : 132 ms QT Int : 428 ms P-R-T Axes : * -27 49 degrees QTcB Int : 509 ms atrial flutter with variable conduction Right bundle branch block Abnormal ECG When compared with ECG of 10-May-2024 07:42, Atrial flutter has replaced Sinus rhythm Referred By: Michael Dos Santos Electronically Signed By: BASILIA VERONICA MD
--- NOTE | 2024-08-14 15:13 | ED.NEUROSD ---
HPI - Neuro Symptoms/Deficit General Chief Complaint: Stroke Stated Complaint: ?stroke Time Seen by Provider: 08/14/24 15:12 Source: family Mode of arrival: wheelchair Limitations: no limitations History of Present Illness ED Provider: HPI Narrative: 69yo M with history bioprosthetic mitral valve replacement/chord repair [2017], persistent atrial flutter on apixaban, ANJELICA on CPAP, HTN, and DM2 comes here for acute onset of left-sided weakness with difficulty in speaking patient apparently was on the passenger side driving from [employer] suddenly noticed perioral numbness more on the left side and numbness of the left side of the face followed by difficulty in his speaking and heaviness of the left side of the arm and had difficulty in coming out of the car felt left side was weak symptoms started at 12:20 p.m. patient took his a.m. Eliquis Related Data Home Medications ?Medication ?Instructions ?Recorded ?Confirmed cholecalciferol (vitamin D3) 25 50 mcg PO DAILY 11/08/20 06/21/24 mcg (1,000 unit) capsule clonazepam 0.5 mg tablet 0.5 mg PO DAILY PRN Anxiety 11/08/20 06/21/24 epinephrine 0.3 mg/0.3 mL 0.3 mg IM Q10M PRN Allergic 11/08/20 06/21/24 injection, auto-injector (EpiPen) Reaction finasteride 5 mg tablet 5 mg PO DAILY 11/08/20 06/21/24 mometasone 220 mcg/actuation(30 2 inh inhalation BID 11/08/20 06/21/24 doses) breath activated powder inhaler (Asmanex Twisthaler) saw palmetto 160 mg capsule 160 mg PO DAILY 11/08/20 06/21/24 fluticasone propionate 50 1 spray intranasal BID 02/13/21 06/21/24 mcg/actuation nasal spray,suspension (Flonase Allergy Relief) [id number]-[id number] 1 tab PO DAILY PRN Migraine 04/19/22 06/21/24 50 mg-325 mg-40 mg tablet Headache atorvastatin 20 mg tablet 20 mg PO BEDTIME 12/25/22 06/21/24 omeprazole 20 mg capsule,delayed 40 mg PO DAILY@0630 01/30/23 06/21/24 release apixaban 5 mg tablet (Eliquis) 5 mg PO BID 01/05/24 06/21/24 terazosin 10 mg capsule 10 mg PO DAILY 02/03/24 06/21/24 tadalafil 5 mg tablet (Cialis) 5 mg PO BEDTIME 03/04/24 06/21/24 metformin 750 mg tablet,extended 750 mg PO BID 04/08/24 06/21/24 release 24 hr cyanocobalamin (vitamin B-12) 100 100 mcg PO DAILY 05/10/24 06/21/24 mcg tablet diltiazem HCl 120 mg 120 mg PO BEDTIME 05/10/24 06/21/24 capsule,extended release 24 hr levalbuterol tartrate 45 2 puff inhalation BID PRN 05/10/24 06/21/24 mcg/actuation aerosol inhaler SOB/Wheezing Previous Rx's ?Medication ?Instructions ?Recorded spironolactone 25 mg tablet 12.5 mg (1/2 x 25 mg) PO DAILY #90 02/05/24 tabs empagliflozin 10 mg tablet 10 mg PO DAILY #90 tabs 04/13/24 (Jardiance) furosemide 40 mg tablet 40 mg PO DAILY #90 tabs 05/13/24 Allergies Allergy/AdvReac Type Severity Reaction Status Date / Time DUSTIN Inhibitors Allergy Severe Anaphylaxis Verified 08/14/24 15:24 [Dustin Inhibitors] pineapple [PINEAPPLE] Allergy Severe Angioedema Verified 08/14/24 15:24 thimerosal [Thimerosal] Allergy Severe Angioedema Verified 08/14/24 15:24 fluoxetine [From PROZAC] Allergy Intermediate REQUIRED Verified 08/14/24 15:24 HOSPITALIZATION Penicillins Allergy Intermediate Rash Verified 08/14/24 15:24 tamsulosin Allergy Mild tacycardia Verified 08/14/24 15:24 aspartame [ASPARTAME] Allergy Unknown Unknown Verified 08/14/24 15:24 hexachlorophene Allergy Unknown Unknown Verified 08/14/24 15:24 [From PHISOHEX] melon Allergy Unknown Unknown Verified 08/14/24 15:24 perfume Allergy Unknown Unknown Verified 08/14/24 15:24 povidone-iodine Allergy Unknown Unknown Verified 08/14/24 15:22 [From BETADINE] soap [Betadine] Allergy Unknown Unknown Verified 08/14/24 15:22 codeine [Codeine] AdvReac Intermediate wakes up Verified 08/14/24 15:24 combative meperidine [From Demerol] AdvReac Intermediate Hallucinati Verified 08/14/24 15:24 ons monosodium glutamate AdvReac Intermediate Headache Verified 08/14/24 15:24 morphine AdvReac Intermediate wakes up Verified 08/14/24 15:24 combative dexon Allergy Unknown Unknown Uncoded 08/14/24 15:24 GLUE IN SHOES Allergy Unknown UNKNOWN Uncoded 08/14/24 15:24 PLASTIC TAPE Allergy Unknown skin Uncoded 08/14/24 15:24 problems POLYGLACTIC ACID(DEXON & Allergy Unknown UNKNOWN Uncoded 08/14/24 15:24 VICRYL) vicryl Allergy Unknown Unknown Uncoded 08/14/24 15:24 Review of Systems Review of Systems: Yes all other systems are reviewed and are negative PMFSH Past Medical History Medical History Paroxysmal atrial flutter Prosthetic valve dysfunction Atrial flutter Elevated cholesterol History of GI diverticular bleed BPH (benign prostatic hyperplasia) History of blood transfusion GERD (gastroesophageal reflux disease) Type 2 diabetes mellitus Depression with anxiety PTSD (post-traumatic stress disorder) Migraine COPD, mild Asthma HTN (hypertension) Obstructive sleep apnea Enlarged RV (right ventricle) Mitral regurgitation Surgical History S/P MVR (mitral valve replacement) History of esophagogastroduodenoscopy (EGD) H/O colonoscopy History of excision of lesion (06/25/22) History of arthroscopy of right knee History of left inguinal hernia repair History of repair of right rotator cuff History of repair of left rotator cuff History of mitral valve replacement Hx of cardiac cath Family History Family History Father Rheumatic fever Mother No problems noted. 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 Oriented X3. No acute distress. Eyes: PERRLA, No Nystagmus ENT: Pharynx normal. Oral Mucosa moist Neck: Normal inspection. Neck supple. CVS: Irregularly irregular heart rate no murmur or rub Pulses normal. Respiratory: No respiratory distress. Equal air entry bilateral, no wheezing/rales/rhonchi Abdomen: Soft and nontender. Bowel sounds are present, no mass palpable, no CVA tenderness Skin: Skin warm and dry. Normal skin color. Normal skin turgor. Extremities: No lower extremity edema. No calf tenderness Neuro: Oriented X 3. Slight weakness in the left leg +4/5. No sensory deficit.No cerebellar signs , cranial nerves II-XII intact except for left facial droop++ Medications Administered Discontinued Medications Generic Name Dose Route Start Last Admin Trade Name Freq PRN Reason Stop Dose Admin Iohexol 70 ml 08/14/24 15:31 08/14/24 15:31 Iohexol 350 Mg/Ml 75 Ml Infus..Btl IV 08/14/24 15:32 70 ml ONCE ONE Administration Medical Decision Making Medical Decision Making [facility] Narrative: Patient with right MCA TIA findings with rapid recovery when he patient's arrived patient had the slurred speech and slight numbness of the face on the left side within 30 minutes patient felt better no dysarthria at this time slight weakness of the left lower extremity noticed and left facial droop still present case discussed with Dr. Jacobo neurologist agreed to continue Eliquis for now further evaluation after CTA and MRI Differential Diagnosis Differential Diagnoses: The differential diagnosis associated with the presentation includes Admission/Observation Consideration of admission/observation: Escalation of care including admission/observation considered Consult Healthcare Provider Management of the patient was discussed with: Hospitalist Lab Data MDM Lab Attestation statement: I reviewed the patient's lab results. 08/14/24 15:13 08/14/24 15:14 Labs: Lab Results 08/14/24 08/14/24 Range/Units 15:13 15:14 WBC 8.4 (4.8-10.8) X10*3/uL RBC 4.31 L (4.60-5.80) X10*6/uL Hgb 12.3 L (14.0-18.0) g/dl Hct 36.4 L (42.0-52.0) % MCV 84.5 (80.0-98.0) fL MCH 28.5 (27.0-33.0) pg MCHC 33.8 (31.0-36.0) g/dl RDW 16.0 (11.0-16.0) % Plt Count 123 L (160-400) X10*3/uL MPV 9.0 L (9.4-12.4) fL Immature Gran % (Auto) 0.5 H (0.0-0.4) % Neut % (Auto) 82.3 H (45-73) % Lymph % (Auto) 8.1 L (20-40) % Kimble % (Auto) 8.3 (2-11) % Eos % (Auto) 0.4 (0-4) % Baso % (Auto) 0.4 (0-2) % Lymph # (Auto) 0.7 L (1.2-4.9) X10*3/uL Kimble # (Auto) 0.7 (0.1-1.2) X10*3/uL Eos # (Auto) 0.0 (0.0-0.4) X10*3/uL Baso # (Auto) 0.0 (0.0-0.2) X10*3/uL Abs Immat Gran (auto) 0.04 H (0.00-0.03) X10*3/uL Absolute Neuts (auto) 6.9 (2.0-8.3) x10*3/uL Absolute Nucleated RBC 0.000 (0.0-0.012) X10*3/uL Nucleated RBC % (auto) 0.0 (0.0-0.2) /100WBC Hold Purple Top SEE NOTE PT 17.7 H D (10.9-12.4) SEC Whole Blood PT 16.5 H (11.1-13.5) sec INR 1.5 H (0.9-1.1) Whole Blood INR 1.4 H (0.9-1.1) APTT 34.9 (26.0-36.8) SEC Sodium 141 (135-145) mmol/L Potassium 4.4 (3.3-5.1) mmol/L Chloride 109 H (96-108) mmol/L Carbon Dioxide 23 (22-29) mmol/L Anion Gap 13 (12-20) BUN 17 H (9-16) mg/dL Creatinine 0.75 (0.5-1.4) mg/dL Estim Creat Clear Calc 93.2 Estimated GFR > 60 POC Glucose 127 H (60-115) mg/dL Random Glucose 123 H (60-115) mg/dL Calcium 9.0 (8.4-10.2) mg/dL Troponin I High Sens 4.1 D (<3.5-35.0) ng/L Triglycerides 128 (<150) mg/dL Cholesterol 97 (<200) mg/dL LDL Cholesterol, Calc 42 (<100) mg/dL HDL Cholesterol 30 L (>40) mg/dL Independent Interpretation I performed an independent interpretation of an: EKG Interpretation: Atrial fibrillation with ventricular rate of 85 beats per minute right bundle-branch block no acute ST-T no acute ischemia Radiology Impression Discussion of test interpretation with radiology: I have reviewed the radiologist's reading. Radiologist Impression: Findings: No acute intracranial hemorrhage, extra-axial fluid collection, hydrocephalus or midline shift. Age appropriate generalized parenchymal atrophy. There are periventricular and subcortical white matter hypodensities which are nonspecific but most likely related to microangiopathic gliosis. No evidence for acute large territorial infarct. Remote lacunar infarct in the right basal ganglia. Remote lacunar infarct versus prominent perivascular space in the left lentiform nucleus. Intracranial arteriosclerosis. Nonspecific mucosal thickening in the bilateral maxillary and left sphenoid sinuses. No mastoid fluid. Visualized orbits: No acute abnormalities. There is no acute fracture. IMPRESSION: 1. No acute intracranial process. Impression: 1. Patent head CTA. No large vessel occlusion or flow-limiting stenosis. 2. Calcific plaque in the bilateral proximal ICAs with 65 percent stenosis on the right and 50 percent stenosis on the left. 3. Indeterminate right thyroid lesion can be further characterized with ultrasound on a nonemergent elective basis. This document has been electronically signed by: Yissel Shepard DO on 08/14/2024 16:33:16 NIH Stroke Scale Internal: Initial- Upon Arrival Level of Consciousness: Alert Level of Consciousness Questions: Answers both questions correctly Level of Consciousness Commands: Performs both tasks correctly Best Gaze: Normal Visual: No visual loss Facial Palsy: Minor paralyis Motor Arm (Right): No drift Motor Arm (Left): No drift Motor Leg (Right): No drift Motor Leg (Left): No drift Limb Ataxia: Absent Sensory: Normal Best Language: No aphasia Dysarthia: Mild to moderate dysarthria Extinction and Inattention: No abnormality Score: 2 Critical Care Time Critical Care Time Critical Care Time: Yes Total Critical Care Time: 55 Attestation: The patient was critically ill with a high probability of imminent or life threatening deterioration. I spent greater than60 ???minutes of discontinuous time evaluating the patient,delivering critical care at the bedside, discussing and evaluating pertinent data with consultants. Critical care time does not include time spent performing separately billable procedures or teaching. Total time spent performing critical care was ?55??minutes. Discharge Plan Discharge Clinical Impression: Transient cerebral ischemia Patient Disposition: Admitted As Inpatient Print Language: Cuban
[2024-08-14 15:19] VITALS: BMI 27.5
[2024-08-14 15:22] LABS: Basophils Percent Auto 0.4 % (0-2); Eosinophils Percent Auto 0.4 % (0-4); Hematocrit 36.4 % (42.0-52.0); Hemoglobin 12.3 g/dl (14.0-18.0); Imm Gran Abs Auto 0.04 X10*3/uL (0.00-0.03); Imm Gran Pct Auto 0.5 % (0.0-0.4); Lymphocytes Absolute Auto 0.7 X10*3/uL (1.2-4.9); Lymphocytes Percent Auto 8.1 % (20-40); MANUAL DIFF FLAG NO; Mean Corpuscular HGB Conc 33.8 g/dl (31.0-36.0); Mean Corpuscular Hemoglobin 28.5 pg (27.0-33.0); Mean Corpuscular Volume 84.5 fL (80.0-98.0); Monocytes Absolute Auto 0.7 X10*3/uL (0.1-1.2); Monocytes Percent Auto 8.3 % (2-11); Neutrophils Absolute Auto 6.9 x10*3/uL (2.0-8.3); Neutrophils Percent Auto 82.3 % (45-73); Platelet Count 123 X10*3/uL (160-400); Red Blood Count 4.31 X10*6/uL (4.60-5.80); White Blood Count 8.4 X10*3/uL (4.8-10.8)
[2024-08-14 15:25] LABS: Prothrombin Time Whole Bld POC 16.5 sec (11.1-13.5); ~PT, ~INR - Anti Coag Clinic 1.4 (0.9-1.1)
[2024-08-14 15:26] LABS: Glucose, Whole Blood 127 mg/dL (60-115)
[2024-08-14 15:27] LABS: INTERNATIONAL NORM RATIO 1.5 (0.9-1.1); Prothrombin Time 17.7 SEC (10.9-12.4)
[2024-08-14 15:30] LABS: Partial Thromboplastin Time 34.9 SEC (26.0-36.8)
[2024-08-14] MEDS: iohexoL 350 MG/ML 75 ML INFUS..BTL 70 ML IV (15:31)
[2024-08-14 15:33] VITALS: BP 139/80; PULSE 80; RESP 18; TEMP 36.8; O2SAT 94
--- NOTE | 2024-08-14 15:38 | PC.NURSE ---
patient presented from triage, him and his were visiting family in another state, patient asked to drive, patient ambulated to [facility] side of car. LKW [id number] - states he fell asleep and woke up requesting to go to hospital. patient presented unable to ambulate, left sided weakness, slurred speech, drooling, left sided facial droop. #20 placed in the left FA, labs obtained and sent. patient bed scale weight, sent to CT scan. patient VSS, patient reports he is on eliquis for afib, patient resp even and unlabored. patient appears to have left sided facial droop, his speech is becoming more clear, no word searching. patient left arm weaker than right. pupils equal and reactive to light bilat. patient afib on the monitor rate 80s.
[2024-08-14 15:56] LABS: Anion Gap 13 (12-20); Blood Urea Nitrogen 17 mg/dL (9-16); Carbon Dioxide 23 mmol/L (22-29); Chloride 109 mmol/L (96-108); Cholesterol 97 mg/dL (<200); Creatinine Clr Calc Pharmacy 93.2; Estimated Glomerular Filt Rate > 60; Glucose Random 123 mg/dL (60-115); HDL Cholesterol 30 mg/dL (>40); LDL Cholesterol Calculated 42 mg/dL (<100); Potassium 4.4 mmol/L (3.3-5.1); Sodium 141 mmol/L (135-145); Triglycerides 128 mg/dL (<150)
[2024-08-14 16:03] LABS: Troponin-I High Sensitivity 4.1 ng/L (<3.5-35.0)
[2024-08-14 16:10] LABS: Stroke Lab Use COMPLETE
[2024-08-14 16:25] VITALS: BP 144/79; PULSE 77; RESP 22; TEMP 36.8; O2SAT 93
[2024-08-14 17:03] VITALS: BP 138/70; PULSE 75; RESP 20; O2SAT 95
[2024-08-14] MEDS: Apixaban 5 MG TABLET PO ×2 (17:44→20:56)
--- NOTE | 2024-08-14 17:45 | PHA.MEDREC ---
Addendum entered by Saúl Aj [facility] 08/14/24 18:11: MED REC CHECKED BY [facility] Original Note: Pharmacy Consult ? Medication Reconciliation Pharmacy has completed the medication reconciliation. Spoke with patients to confirm medications verified by claim history and MD med list. They confirmed Ozempic 1 mg every Friday, had last Friday. Patient and spouse say he rarely uses clonazepam but have it at home as needed. He cuts in half spironolactone and atorvastatin. He takes 2 caps of omeprazole in the evening. He is no longer taking amiodarone or mag oxide. Spouse says he took all of his morning medications today except for lasic and spironolactone.
--- NOTE | 2024-08-14 17:53 | PM.IMHP ---
History of Present Illness Date of Service: 08/14/24 Attending physician on admission: Mark Rosales Chief Complaint: numbness and tingling 69-year-old male with history of paroxysmal atrial flutter anticoagulated with Eliquis, history of MVP/mitral valve regurgitation s/p MVR with bioprosthetic valve, asthma/COPD overlap, hypertension, migraines, [id number] type 2 diabetes, BPH, hyperlipidemia presented to the ED earlier today for evaluation of stroke-like symptoms. He reports that earlier today he was at [place] and while driving back, developed numbness tingling around his lips while eating [employer]. He also felt he was drooling. Shortly after while in the car, he felt like he was slurring his speech and he reports he felt numbness and tingling in the left hand and the left arm. He felt as if he could not lift his leg. Symptoms started at 1220 per his who was with him when symptoms started. Symptoms resolved around 230 per patient. He has been compliant with his eliquis. No hx cva. In the ED, vital signs have been stable. Hematology studies unremarkable with chronic anemia and chronic thrombocytopenia consistent with baseline. Renal function electrolyte levels normal. CTA of the head and neck negative for any large vessel occlusion or flow-limiting stenosis. There is bilateral proximal ICA stenosis, 65% on the right and 50% of the left. Possible right thyroid lesion, recommend further ultrasound non emergently. Head CT negative for any acute intracranial abnormality. EKG shows atrial fibrillation with right bundle branch block, rate 85, no ST/T-wave abnormality. In the ED, received Eliquis. Review of Systems Review of Systems: Yes all other systems are reviewed and are negative [facility] Medical History Paroxysmal atrial flutter Prosthetic valve dysfunction Atrial flutter Elevated cholesterol History of GI diverticular bleed BPH (benign prostatic hyperplasia) History of blood transfusion GERD (gastroesophageal reflux disease) Type 2 diabetes mellitus Depression with anxiety PTSD (post-traumatic stress disorder) Migraine COPD, mild Asthma HTN (hypertension) Obstructive sleep apnea Enlarged RV (right ventricle) Mitral regurgitation Family History Father Rheumatic fever Mother No problems noted. Sister Hx of aortic valve repair Brother Mitral valve replaced Surgical History S/P MVR (mitral valve replacement) History of esophagogastroduodenoscopy (EGD) H/O colonoscopy History of excision of lesion (06/25/22) History of arthroscopy of right knee History of left inguinal hernia repair History of repair of right rotator cuff History of repair of left rotator cuff History of mitral valve replacement Hx of cardiac cath Social History Household Members: Family Housing: House Do you presently have visiting nurse or other home services: No Alcohol intake: current Alcohol intake frequency: holidays/special occasions only Comment: pt refusing precautions steady on feet Patient Tobacco Use Status: Former Tobacco user Advance Directives: Yes Advance Directives on File: Yes Advance Directives Date on File: 02/03/24 service: Yes Current occupational status: retired Current occupation: ambidextrous, 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 Meds Allergies Allergy/AdvReac Type Severity Reaction Status Date / Time DUSTIN Inhibitors Allergy Severe Anaphylaxis Verified 08/14/24 15:24 [Dustin Inhibitors] pineapple [PINEAPPLE] Allergy Severe Angioedema Verified 08/14/24 15:24 thimerosal [Thimerosal] Allergy Severe Angioedema Verified 08/14/24 15:24 fluoxetine [From PROZAC] Allergy Intermediate REQUIRED Verified 08/14/24 15:24 HOSPITALIZATION Penicillins Allergy Intermediate Rash Verified 08/14/24 15:24 tamsulosin Allergy Mild tacycardia Verified 08/14/24 15:24 aspartame [ASPARTAME] Allergy Unknown Unknown Verified 08/14/24 15:24 hexachlorophene Allergy Unknown Unknown Verified 08/14/24 15:24 [From PHISOHEX] melon Allergy Unknown Unknown Verified 08/14/24 15:24 perfume Allergy Unknown Unknown Verified 08/14/24 15:24 povidone-iodine Allergy Unknown Unknown Verified 08/14/24 15:22 [From BETADINE] soap [Betadine] Allergy Unknown Unknown Verified 08/14/24 15:22 codeine [Codeine] AdvReac Intermediate wakes up Verified 08/14/24 15:24 combative meperidine [From Demerol] AdvReac Intermediate Hallucinati Verified 08/14/24 15:24 ons monosodium glutamate AdvReac Intermediate Headache Verified 08/14/24 15:24 morphine AdvReac Intermediate wakes up Verified 08/14/24 15:24 combative dexon Allergy Unknown Unknown Uncoded 08/14/24 15:24 GLUE IN SHOES Allergy Unknown UNKNOWN Uncoded 08/14/24 15:24 PLASTIC TAPE Allergy Unknown skin Uncoded 08/14/24 15:24 problems POLYGLACTIC ACID(DEXON & Allergy Unknown UNKNOWN Uncoded 08/14/24 15:24 VICRYL) vicryl Allergy Unknown Unknown Uncoded 08/14/24 15:24 Active Medications: Current Medications Acetaminophen (Acetaminophen 325 Mg Tablet) 650 mg PO Q6H PRN PRN Reason: Pain, Mild 1-3,fever,headache Aspirin (Aspirin Enteric Coated 81 Mg Tablet.Dr) 81 mg PO DAILY COLT Calcium Carbonate (Calcium Carbonate 750 Mg Tab.Chew) 750 mg PO Q4H PRN PRN Reason: Heartburn Magnesium Hydroxide (Milk Of Magnesia 30 Ml Oral.Susp) 30 ml PO DAILY PRN PRN Reason: Constipation Melatonin (Melatonin 3 Mg Tablet) 6 mg PO BEDTIME PRN PRN Reason: Insomnia Sodium Chloride (0.9 % Sodium Chloride Flush 3 Ml Syringe) 3 ml IVFLUSH QSHIFT [facility] Home Medications ?Medication ?Instructions ?Recorded ?Confirmed ?Last Taken ?Type cholecalciferol (vitamin D3) 25 25 mcg PO DAILY 11/08/20 08/14/24 05/10/24 History mcg (1,000 unit) capsule clonazepam 0.5 mg tablet 0.5 mg PO DAILY PRN Anxiety 11/08/20 08/14/24 02/01/24 History finasteride 5 mg tablet 5 mg PO DAILY 11/08/20 08/14/24 05/10/24 History mometasone 220 mcg/actuation(30 2 inh inhalation BID 11/08/20 08/14/24 05/10/24 History doses) breath activated powder inhaler (Asmanex Twisthaler) saw palmetto 160 mg capsule 160 mg PO DAILY 11/08/20 08/14/24 05/10/24 History fluticasone propionate 50 1 spray intranasal BID 02/13/21 08/14/24 05/10/24 History mcg/actuation nasal spray,suspension (Flonase Allergy Relief) omeprazole 20 mg capsule,delayed 40 mg PO QPM 01/30/23 08/14/24 05/10/24 History release apixaban 5 mg tablet (Eliquis) 5 mg PO BID 01/05/24 08/14/24 05/10/24 History terazosin 10 mg capsule 10 mg PO DAILY 02/03/24 08/14/24 05/10/24 History tadalafil 5 mg tablet (Cialis) 5 mg PO BEDTIME 03/04/24 08/14/24 05/10/24 History metformin 750 mg tablet,extended 750 mg PO QPM 04/08/24 08/14/24 05/10/24 History release 24 hr diltiazem HCl 120 mg 120 mg PO BEDTIME 05/10/24 08/14/24 05/10/24 History capsule,extended release 24 hr atorvastatin 40 mg tablet 20 mg PO BEDTIME 08/14/24 08/14/24 Unknown History cyanocobalamin (vitamin B-12) 1,000 mcg PO DAILY 08/14/24 08/14/24 Unknown History 1,000 mcg tablet ketoconazole 2 % topical cream 1 appl topical BID PRN Rash 08/14/24 08/14/24 Unknown History miconazole nitrate 2 % topical 1 appl topical DAILY PRN Rash 08/14/24 08/14/24 Unknown History powder montelukast 10 mg tablet 10 mg PO BEDTIME 08/14/24 08/14/24 Unknown History semaglutide 1 mg/dose (4 mg/3 mL) 1 mg subcut CHASE 08/14/24 08/14/24 08/08/24 History subcutaneous pen injector (Ozempic) Physical Exam Vital Signs and Narrative: Vital Signs: Last Vital Signs Temp 98.2 F 08/14/24 16:25 Pulse 75 08/14/24 17:03 Resp 20 08/14/24 17:03 BP 138/70 08/14/24 17:03 Pulse Ox 95 08/14/24 17:03 O2 Del Method Room Air 08/14/24 17:03 BMI result Body Mass Index 27.5 Constitutional - Awake and Alert, No apparent distress Eyes - PERRLA, EOMI Cardiovascular - S1S2, RRR, No edema Respiratory - Normal lung expansion, Normal respiratory effort, No respiratory distress, CTA bilaterally Gastrointestinal - NT / ND; +BS; No rebound or guarding Extremities - no calf tenderness bilaterally, no swelling Skin - Warm/Dry Neurological - Alert & oriented x3, CN II-XII in tact, 5/5 strength BUE and BLE, downgoing Babinski, symmetric patellar reflexes Psychological - Appropriate affect Results Labs 08/14/24 15:13 08/14/24 15:14 Labs: Laboratory Results - last 24 hr 08/14/24 08/14/24 15:13 15:14 MCV 84.5 MCH 28.5 MCHC 33.8 RDW 16.0 Plt Count 123 L MPV 9.0 L Immature Gran % (Auto) 0.5 H Neut % (Auto) 82.3 H Lymph % (Auto) 8.1 L [place] % (Auto) 8.3 Eos % (Auto) 0.4 Baso % (Auto) 0.4 Lymph # (Auto) 0.7 L [place] # (Auto) 0.7 Eos # (Auto) 0.0 Baso # (Auto) 0.0 Abs Immat Gran (auto) 0.04 H Absolute Neuts (auto) 6.9 Absolute Nucleated RBC 0.000 Nucleated RBC % (auto) 0.0 Hold Purple Top SEE NOTE PT 17.7 H D Whole Blood PT 16.5 H INR 1.5 H Whole Blood INR 1.4 H APTT 34.9 Anion Gap 13 Estim Creat Clear Calc 93.2 Estimated GFR > 60 POC Glucose 127 H Random Glucose 123 H Calcium 9.0 Triglycerides 128 Cholesterol 97 LDL Cholesterol, Calc 42 HDL Cholesterol 30 L Assessment and Plan (1) Paresthesias: Status: Acute Plan 69-year-old male with history of paroxysmal atrial flutter anticoagulated with Eliquis, history of MVP/mitral valve regurgitation s/p MVR with bioprosthetic valve, asthma/COPD overlap, hypertension, migraines, [id number] type 2 diabetes, BPH, hyperlipidemia admitted for possible TIA Possible TIA gradual symptoms onset perioral paresthesias, left upper extremity paresthesias and weakness, slurred speech CT head negative for acute intracranial abnormality. CTA of the head/neck negative for any large vessel occlusion or flow-limiting stenosis Give 325 mg aspirin now and continue 81 mg daily Continue Eliquis MRI brain ordered Nursing swallow evaluation, stroke education Lipid panel. High-dose statin initiated Defer echo to Neurology Neurology consult Monitor on telemetry Heart failure preserved ejection fraction Clinically euvolemic Continue Lasix, Jardiance, diltiazem, spironolactone Persistent atrial fibrillation/flutter Continue Eliquis for anticoagulation Continue diltiazem [id number] type 2 diabetes Hold metformin, Ozempic. Continue Jardiance POC glucose, diabetic diet Sliding scale insulin Asthma/COPD overlap No acute exacerbation Continue maintenance inhalers, albuterol p.r.n. GERD PPI BPH Continue Cialis, terazosin, s saw palmetto PTSD/mood disorder Continue home meds Anemia of chronic disease H/H baseline Chronic thrombocytopenia Improved from baseline, monitor given antiplatelet therapy and Eliquis DVT prophylaxis-Eliquis Full code Patient requires inpatient stay at least 2 midnights for further workup of TIA/CVA requiring advanced imaging, cardiac monitoring, and expert consultation as well as monitoring for any recurrence of symptoms Quality Stroke Does the patient have a stroke diagnosis?: No VTE Prior VTE?: No VTE Risk Level:: Medical - moderate - high VTE Device Contraindication: Treatment Not Indicated VTE Drug Contraindication: N/A - Med Ordered
[2024-08-14] MEDS: Aspirin 325 MG TABLET PO (18:30)
--- NOTE | 2024-08-14 19:15 | PC.NURSE ---
Sent for MRI
[2024-08-14 20:00] VITALS: BP 122/74; PULSE 80; RESP 16; O2SAT 100
--- NOTE | 2024-08-14 20:33 | PC.NURSE ---
Patient returned from MRI. No droop and tongue midline. Speech clear. Patient states his tongue still feels a little thick. Good hand gfasps. No drift. Positive dorsal flexion/extension. Sensation symmetrical. Respirations even and non-labored. Abdomen soft, non-tender with positive bowel sounds. Positive pedal pulses with no edema. Pending transfer to in-patient bed.
[2024-08-14] MEDS: Omeprazole 40 MG CAPSULE.DR PO (20:56)
[2024-08-14] MEDS: dilTIAZem HCL CD 120 MG CAP.ER.DEG PO (20:56)
[2024-08-14] MEDS: Montelukast Sodium 10 MG TABLET PO (20:56)
[2024-08-14] MEDS: Atorvastatin Calcium 40 MG TABLET PO (20:56)
[2024-08-14 21:48] LABS: Glucose, Whole Blood 115 mg/dL (60-115)
[2024-08-15] VITALS: PULSE 75; RESP 17; TEMP 36.7; O2SAT 94
--- NOTE | 2024-08-15 00:35 | PC.NURSE ---
Took over care from MANJU Maldonado at 23:11pm, pt able to answer question appropriately, nuero check completed, swallow evaluation completed, pt able to communicated his needs.
[2024-08-15 03:42] VITALS: BP 107/66; PULSE 54; RESP 17; TEMP 36.2; O2SAT 92
[2024-08-15 07:14] VITALS: BP 126/70; PULSE 65; RESP 18; TEMP 36.9; O2SAT 94
[2024-08-15 07:39] LABS: Glucose, Whole Blood 127 mg/dL (60-115)
[2024-08-15 08:11] LABS: MANUAL DIFF FLAG NO
[2024-08-15 08:19] LABS: Basophils Percent Auto 0.5 % (0-2); Eosinophils Percent Auto 0.5 % (0-4); Hematocrit 36.8 % (42.0-52.0); Imm Gran Abs Auto 0.04 X10*3/uL (0.00-0.03); Imm Gran Pct Auto 0.5 % (0.0-0.4); Lymphocytes Absolute Auto 0.5 X10*3/uL (1.2-4.9); Lymphocytes Percent Auto 6.4 % (20-40); Mean Corpuscular HGB Conc 32.6 g/dl (31.0-36.0); Mean Corpuscular Hemoglobin 27.9 pg (27.0-33.0); Mean Corpuscular Volume 85.6 fL (80.0-98.0); Mean Platelet Volume 9.1 fL (9.4-12.4); Monocytes Absolute Auto 0.6 X10*3/uL (0.1-1.2); Monocytes Percent Auto 7.6 % (2-11); Neutrophils Absolute Auto 6.3 x10*3/uL (2.0-8.3); Neutrophils Percent Auto 84.5 % (45-73); Platelet Count 118 X10*3/uL (160-400); Red Cell Distribution Width 16.1 % (11.0-16.0); White Blood Count 7.5 X10*3/uL (4.8-10.8)
[2024-08-15 08:33] LABS: Anion Gap 11 (12-20); Blood Urea Nitrogen 16 mg/dL (9-16); Calcium 8.8 mg/dL (8.4-10.2); Carbon Dioxide 24 mmol/L (22-29); Chloride 108 mmol/L (96-108); Creatinine Clr Calc Pharmacy 101.3; Estimated Glomerular Filt Rate > 60; Glucose Random 139 mg/dL (60-115); Potassium 3.9 mmol/L (3.3-5.1); Sodium 139 mmol/L (135-145)
[2024-08-15] MEDS: Aspirin Enteric Coated 81 MG TABLET.DR PO (08:48)
[2024-08-15] MEDS: Cyanocobalamin (Vitamin B-12) 1,000 MCG TABLET 1000 MCG PO (08:48)
[2024-08-15] MEDS: Furosemide 40 MG TABLET PO (08:48)
[2024-08-15] MEDS: Spironolactone 25 MG TABLET 12.5 MG PO (08:48)
[2024-08-15] MEDS: Doxazosin Mesylate 2 MG TABLET 8 MG PO (08:49)
[2024-08-15] MEDS: Apixaban 5 MG TABLET PO (08:49)
[2024-08-15] MEDS: Empagliflozin 10 MG TABLET PO (08:50)
[2024-08-15] MEDS: Finasteride 5 MG TABLET PO (08:50)
[2024-08-15] MEDS: Cholecalciferol (Vitamin D3) 25 MCG TABLET PO (08:52)
--- NOTE | 2024-08-15 09:02 | HO.PM.IMPN ---
Subjective Subjective Date of Service: 08/15/24 Interval History: some parasthesias on tongue, otherwise all symptoms resolved Physical Exam Vital Signs: Vital Signs: Last Vital Signs Temp 98.4 F 08/15/24 07:14 Pulse 65 08/15/24 07:14 Resp 18 08/15/24 07:14 BP 126/70 08/15/24 07:14 Pulse Ox 94 08/15/24 07:14 O2 Del Method Room Air 08/15/24 07:14 BMI result Body Mass Index 27.5 General: AO X 3, no acute distress Resp: CTA bilateral, no accessory muscles used CVS: S1,S2,RRR GI: soft, non tender, non distended Neuro: motor grossly intact, alert Psych: appropriate affect, appropriate insight Objective Data Active Medications Acetaminophen (Acetaminophen 325 Mg Tablet) 650 mg PO Q6H PRN PRN Reason: Pain, Mild 1-3,fever,headache Apixaban (Apixaban 5 Mg Tablet) 5 mg PO BID [facility] Last Admin: 08/15/24 08:49 Dose: 5 mg Documented By: ENOC Aspirin (Aspirin Enteric Coated 81 Mg Tablet.) 81 mg PO DAILY [facility] Last Admin: 08/15/24 08:48 Dose: 81 mg Documented By: ENOC Atorvastatin Calcium (Atorvastatin Calcium 40 Mg Tablet) 40 mg PO BEDTIME [facility] Last Admin: 08/14/24 20:56 Dose: 40 mg Documented By: SCIRPFREDRICK Calcium Carbonate (Calcium Carbonate 750 Mg Tab.Chew) 750 mg PO Q4H PRN PRN Reason: Heartburn Clonazepam (Clonazepam 0.5 Mg Tablet) 0.5 mg PO DAILY PRN PRN Reason: Anxiety Clotrimazole (Clotrimazole 1 % Cream 15 Gm Tube) 1 appl TOPICAL BID PRN PRN Reason: Rash Cyanocobalamin (Cyanocobalamin (Vitamin B-12) 1,000 Mcg Tablet) 1,000 mcg PO DAILY [facility] Last Admin: 08/15/24 08:48 Dose: 1,000 mcg Documented By: ENOC Dextrose (Dextrose 50 % 25 Gm/50 Ml Syringe) 25 gm IVPUSH Q15M PRN; Protocol PRN Reason: per Hypoglycemia Standing Ord. Diltiazem HCl (Diltiazem Hcl Cd 120 Mg Cap.Er.Deg) 120 mg PO BEDTIME [facility]; Protocol Last Admin: 08/14/24 20:56 Dose: 120 mg Documented By: MELECIO Doxazosin Mesylate (Doxazosin Mesylate 2 Mg Tablet) 8 mg PO DAILY [facility] Last Admin: 08/15/24 08:49 Dose: 8 mg Documented By: ENOC Empagliflozin (Empagliflozin 10 Mg Tablet) 10 mg PO DAILY [facility] Last Admin: 08/15/24 08:50 Dose: 10 mg Documented By: ENOC Finasteride (Finasteride 5 Mg Tablet) 5 mg PO DAILY [facility] Last Admin: 08/15/24 08:50 Dose: 5 mg Documented By: ENOC Fluticasone Propionate (Fluticasone Propionate Nasal 16 Gm [place]) 1 spray NOSTRIL-B BID [facility] Last Admin: 08/14/24 23:00 Dose: Not Given Documented By: MELECIO Non-Admin Reason: Med Not Available Fluticasone Propionate (Fluticasone Propionate 250 Mcg Blst.W.Dev) 2 puff INHALE RBID [facility] Last Admin: 08/15/24 07:45 Dose: Not Given Documented By: BHUPINDER Non-Admin Reason: med unavailable, pharmacy called Furosemide (Furosemide 40 Mg Tablet) 40 mg PO DAILY [facility]; Protocol Last Admin: 08/15/24 08:48 Dose: 40 mg Documented By: ENOC Glucose (Glucose Gel 15 Gm Gel..Gram.) 15 gm PO Q15M PRN; Protocol PRN Reason: per Hypoglycemia Standing Ord. Insulin Human Lispro (Insulin Lispro 100 Unit/Ml 3 Ml Vial) 0 unit SUBCUT QIDACHS [facility]; Protocol Last Admin: 08/15/24 07:50 Dose: Not Given Documented By: ENOC Non-Admin Reason: No Insulin Coverage Magnesium Hydroxide (Milk Of Magnesia 30 Ml Oral.Susp) 30 ml PO DAILY PRN PRN Reason: Constipation Melatonin (Melatonin 3 Mg Tablet) 6 mg PO BEDTIME PRN PRN Reason: Insomnia Miconazole Nitrate (Miconazole Nitrate 2% Powder 85 Gm Bottle) 1 appl TOPICAL DAILY PRN; Protocol PRN Reason: Rash Montelukast Sodium (Montelukast Sodium 10 Mg Tablet) 10 mg PO BEDTIME [facility] Last Admin: 08/14/24 20:56 Dose: 10 mg Documented By: MELECIO Non-Formulary Medication (Tadalafil [Cialis]) 5 mg PO BEDTIME [facility] Omeprazole (Omeprazole 40 Mg Capsule.Dr) 40 mg PO BEDTIME [facility] Last Admin: 08/14/24 20:56 Dose: 40 mg Documented By: MELECIO Sodium Chloride (0.9 % Sodium Chloride Flush 3 Ml Syringe) 3 ml IVFLUSH QSHIFT [facility] Last Admin: 08/15/24 09:01 Dose: Not Given Documented By: ENOC Non-Admin Reason: Previously Administered Spironolactone (Spironolactone 25 Mg Tablet) 12.5 mg PO DAILY [facility]; Protocol Last Admin: 08/15/24 08:48 Dose: 12.5 mg Documented By: ENOC Vitamin D (Cholecalciferol (Vitamin D3) 25 Mcg Tablet) 25 mcg PO DAILY [facility] Last Admin: 08/15/24 08:52 Dose: 25 mcg Documented By: ENOC Labs 08/15/24 07:49 08/15/24 07:49 Labs: Laboratory Results - last 24 hr 08/14/24 08/14/24 08/14/24 15:13 15:14 20:54 MCV 84.5 MCH 28.5 MCHC 33.8 RDW 16.0 Plt Count 123 L MPV 9.0 L Immature Gran % (Auto) 0.5 H Neut % (Auto) 82.3 H Lymph % (Auto) 8.1 L [place] % (Auto) 8.3 Eos % (Auto) 0.4 Baso % (Auto) 0.4 Lymph # (Auto) 0.7 L [place] # (Auto) 0.7 Eos # (Auto) 0.0 Baso # (Auto) 0.0 Abs Immat Gran (auto) 0.04 H Absolute Neuts (auto) 6.9 Absolute Nucleated RBC 0.000 Nucleated RBC % (auto) 0.0 Hold Purple Top SEE NOTE PT 17.7 H D Whole Blood PT 16.5 H INR 1.5 H Whole Blood INR 1.4 H APTT 34.9 Anion Gap 13 Estim Creat Clear Calc 93.2 Estimated GFR > 60 POC Glucose 127 H 115 Random Glucose 123 H Calcium 9.0 Triglycerides 128 Cholesterol 97 LDL Cholesterol, Calc 42 HDL Cholesterol 30 L 08/15/24 08/15/24 07:13 07:49 MCV 85.6 MCH 27.9 MCHC 32.6 RDW 16.1 H Plt Count 118 L MPV 9.1 L Immature Gran % (Auto) 0.5 H Neut % (Auto) 84.5 H Lymph % (Auto) 6.4 L [place] % (Auto) 7.6 Eos % (Auto) 0.5 Baso % (Auto) 0.5 Lymph # (Auto) 0.5 L [place] # (Auto) 0.6 Eos # (Auto) 0.0 Baso # (Auto) 0.0 Abs Immat Gran (auto) 0.04 H Absolute Neuts (auto) 6.3 Absolute Nucleated RBC 0.000 Nucleated RBC % (auto) 0.0 Hold Purple Top PT Whole Blood PT INR Whole Blood INR APTT Anion Gap 11 L Estim Creat Clear Calc 101.3 Estimated GFR > 60 POC Glucose 127 H Random Glucose 139 H Calcium 8.8 Triglycerides Cholesterol LDL Cholesterol, Calc HDL Cholesterol Assessment and Plan (1) CVA (cerebral vascular accident): Status: Acute Plan 69M PMH paroxysmal atrial flutter, history of mitral valve prolapse status post bioprosthetic valve, COPD/asthma, hypertension, migraine, diabetes, BPH, hyperlipidemia presented with dysarthria, left upper extremity paresthesias and weak Acute right basal ganglia CVA Continue Eliquis and aspirin and statin, follow up Neurology Does not appear to have any significant residual deficits Chronic diastolic chf Continue Lasix, Jardiance, diltiazem, spironolactone Persistent atrial flutter conitnue cardizem, eliquis dm insulin copd/asthma stable gerd ppi bph alpha karis chronic ITP stable dvt prophylaxis - eliquis full code reason for continued hospitalization:neuro eval pending Quality Stroke Does the patient have a stroke diagnosis?: No VTE Prior VTE?: No VTE Risk Level:: Medical - moderate - high VTE Device Contraindication: Treatment Not Indicated VTE Drug Contraindication: N/A - Med Ordered
--- NOTE | 2024-08-15 09:52 | MHC.CM.PN ---
CM met with Patient and his /HCP/Yoly at bedside and addressed IMM with him (original was given to Patient and a copy has been placed on the chart). Patient lives in a house with his , who will transport to home if home dc is the plan. Patient will benefit from PT/OT Evals to assist with disposition. CM has initiated and will follow for dc planning. PCP/PA is Omer Mendez.
[2024-08-15 11:08] VITALS: BP 115/66; PULSE 64; RESP 16; TEMP 36.8; O2SAT 94
[2024-08-15 11:38] LABS: Glucose, Whole Blood 160 mg/dL (60-115)
[2024-08-15] MEDS: Insulin Lispro 100 UNIT/ML 3 ML VIAL SUBCUT (11:56)
--- NOTE | 2024-08-15 12:33 | PM.NEUROCN ---
History of Present Illness Data of Consult Service Date: 08/15/24 Primary Care Provider: DINO Ledezma [facility] Reason for consult: Stroke 69-year-old male with history of paroxysmal atrial flutter anticoagulated with Eliquis, history of MVP/mitral valve regurgitation s/p MVR with bioprosthetic valve, asthma/COPD overlap, hypertension, migraines, [id number] type 2 diabetes, BPH, hyperlipidemia presented to the ED earlier today for evaluation of stroke-like symptoms. In the morning he was having a numb feeling around his mouth. After driving for half an hour he did not feel well and asked his to take over. According to them this was not unusual as he usually would taken up in afternoon. He slept on the passenger seat for more than an hour and when he woke up his left hand was weak and numb. He tried to come out of the car but could not do it. He asked to come to emergency room and when he was brought here he could not come out of car and had to be helped. Now he was feeling better in arm numbness and weakness has improved. Because of anticoagulation on board, he was not considered a candidate for TNK type of treatment. Review of Systems Review of Systems: No associated headache. [facility] Past Medical History Medical History (Updated 08/15/24 @ 12:35 by Kait Jacobo MD) CVA (cerebral vascular accident) Paroxysmal atrial flutter Prosthetic valve dysfunction Atrial flutter Elevated cholesterol History of GI diverticular bleed BPH (benign prostatic hyperplasia) History of blood transfusion GERD (gastroesophageal reflux disease) Type 2 diabetes mellitus Depression with anxiety PTSD (post-traumatic stress disorder) Migraine COPD, mild Asthma HTN (hypertension) Obstructive sleep apnea Enlarged RV (right ventricle) Mitral regurgitation Family History Family History Father Rheumatic fever Mother No problems noted. Sister Hx of aortic valve repair Brother Mitral valve replaced Surgical History Surgical History S/P MVR (mitral valve replacement) History of esophagogastroduodenoscopy (EGD) H/O colonoscopy History of excision of lesion (06/25/22) History of arthroscopy of right knee History of left inguinal hernia repair History of repair of right rotator cuff History of repair of left rotator cuff History of mitral valve replacement Hx of cardiac cath Social History Social History Household Members: Family Housing: House Do you presently have visiting nurse or other home services: No Alcohol intake: current Alcohol intake frequency: holidays/special occasions only Comment: pt refusing precautions steady on feet Patient Tobacco Use Status: Former Tobacco user Second Hand Smoke Exposure: No Advance Directives Date on File: 02/03/24 service: Yes Current occupational status: retired Current occupation: ambidextrous, 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 Meds Allergies Allergy/AdvReac Type Severity Reaction Status Date / Time DUSTIN Inhibitors Allergy Severe Anaphylaxis Verified 08/14/24 15:24 [Dustin Inhibitors] pineapple [PINEAPPLE] Allergy Severe Angioedema Verified 08/14/24 15:24 thimerosal [Thimerosal] Allergy Severe Angioedema Verified 08/14/24 15:24 fluoxetine [From PROZAC] Allergy Intermediate REQUIRED Verified 08/14/24 15:24 HOSPITALIZATION Penicillins Allergy Intermediate Rash Verified 08/14/24 15:24 tamsulosin Allergy Mild tacycardia Verified 08/14/24 15:24 aspartame [ASPARTAME] Allergy Unknown Unknown Verified 08/14/24 15:24 hexachlorophene Allergy Unknown Unknown Verified 08/14/24 15:24 [From PHISOHEX] melon Allergy Unknown Unknown Verified 08/14/24 15:24 perfume Allergy Unknown Unknown Verified 08/14/24 15:24 povidone-iodine Allergy Unknown Unknown Verified 08/14/24 15:22 [From BETADINE] soap [Betadine] Allergy Unknown Unknown Verified 08/14/24 15:22 codeine [Codeine] AdvReac Intermediate wakes up Verified 08/14/24 15:24 combative meperidine [From Demerol] AdvReac Intermediate Hallucinati Verified 08/14/24 15:24 ons monosodium glutamate AdvReac Intermediate Headache Verified 08/14/24 15:24 morphine AdvReac Intermediate wakes up Verified 08/14/24 15:24 combative dexon Allergy Unknown Unknown Uncoded 08/14/24 15:24 GLUE IN SHOES Allergy Unknown UNKNOWN Uncoded 08/14/24 15:24 PLASTIC TAPE Allergy Unknown skin Uncoded 08/14/24 15:24 problems POLYGLACTIC ACID(DEXON & Allergy Unknown UNKNOWN Uncoded 08/14/24 15:24 VICRYL) vicryl Allergy Unknown Unknown Uncoded 08/14/24 15:24 Active Medications: Current Medications Acetaminophen (Acetaminophen 325 Mg Tablet) 650 mg PO Q6H PRN PRN Reason: Pain, Mild 1-3,fever,headache Apixaban (Apixaban 5 Mg Tablet) 5 mg PO BID [facility] Last Admin: 08/15/24 08:49 Dose: 5 mg Aspirin (Aspirin Enteric Coated 81 Mg Tablet.Dr) 81 mg PO DAILY [facility] Last Admin: 08/15/24 08:48 Dose: 81 mg Atorvastatin Calcium (Atorvastatin Calcium 40 Mg Tablet) 40 mg PO BEDTIME [facility] Last Admin: 08/14/24 20:56 Dose: 40 mg Calcium Carbonate (Calcium Carbonate 750 Mg Tab.Chew) 750 mg PO Q4H PRN PRN Reason: Heartburn Clonazepam (Clonazepam 0.5 Mg Tablet) 0.5 mg PO DAILY PRN PRN Reason: Anxiety Clotrimazole (Clotrimazole 1 % Cream 15 Gm Tube) 1 appl TOPICAL BID PRN PRN Reason: Rash Cyanocobalamin (Cyanocobalamin (Vitamin B-12) 1,000 Mcg Tablet) 1,000 mcg PO DAILY [facility] Last Admin: 08/15/24 08:48 Dose: 1,000 mcg Dextrose (Dextrose 50 % 25 Gm/50 Ml Syringe) 25 gm IVPUSH Q15M PRN; Protocol PRN Reason: per Hypoglycemia Standing Ord. Diltiazem HCl (Diltiazem Hcl Cd 120 Mg Cap.Er.Deg) 120 mg PO BEDTIME [facility]; Protocol Last Admin: 08/14/24 20:56 Dose: 120 mg Doxazosin Mesylate (Doxazosin Mesylate 2 Mg Tablet) 8 mg PO DAILY [facility] Last Admin: 08/15/24 08:49 Dose: 8 mg Empagliflozin (Empagliflozin 10 Mg Tablet) 10 mg PO DAILY [facility] Last Admin: 08/15/24 08:50 Dose: 10 mg Finasteride (Finasteride 5 Mg Tablet) 5 mg PO DAILY [facility] Last Admin: 08/15/24 08:50 Dose: 5 mg Fluticasone Propionate (Fluticasone Propionate Nasal 16 Gm [place]) 1 spray NOSTRIL-B BID [facility] Last Admin: 08/14/24 23:00 Dose: Not Given Fluticasone Propionate (Fluticasone Propionate 250 Mcg Blst.W.Dev) 1 puff INHALE RBID [facility] Last Admin: 08/15/24 10:40 Dose: Not Given Furosemide (Furosemide 40 Mg Tablet) 40 mg PO DAILY [facility]; Protocol Last Admin: 08/15/24 08:48 Dose: 40 mg Glucose (Glucose Gel 15 Gm Gel..Gram.) 15 gm PO Q15M PRN; Protocol PRN Reason: per Hypoglycemia Standing Ord. Insulin Human Lispro (Insulin Lispro 100 Unit/Ml 3 Ml Vial) 0 unit SUBCUT QIDACHS [facility]; Protocol Last Admin: 08/15/24 11:56 Dose: 1 unit Magnesium Hydroxide (Milk Of Magnesia 30 Ml Oral.Susp) 30 ml PO DAILY PRN PRN Reason: Constipation Melatonin (Melatonin 3 Mg Tablet) 6 mg PO BEDTIME PRN PRN Reason: Insomnia Miconazole Nitrate (Miconazole Nitrate 2% Powder 85 Gm Bottle) 1 appl TOPICAL DAILY PRN; Protocol PRN Reason: Rash Montelukast Sodium (Montelukast Sodium 10 Mg Tablet) 10 mg PO BEDTIME [facility] Last Admin: 08/14/24 20:56 Dose: 10 mg Non-Formulary Medication (Tadalafil [Cialis]) 5 mg PO BEDTIME COLT Omeprazole (Omeprazole 40 Mg Capsule.Dr) 40 mg PO BEDTIME [facility] Last Admin: 08/14/24 20:56 Dose: 40 mg Sodium Chloride (0.9 % Sodium Chloride Flush 3 Ml Syringe) [facility] Last Admin: 08/15/24 09:01 Dose: Not Given Spironolactone (Spironolactone 25 Mg Tablet) 12.5 mg PO DAILY [facility]; Protocol Last Admin: 08/15/24 08:48 Dose: 12.5 mg Vitamin D (Cholecalciferol (Vitamin D3) 25 Mcg Tablet) 25 mcg PO DAILY [facility] Last Admin: 08/15/24 08:52 Dose: 25 mcg Home Medications ?Medication ?Instructions ?Recorded ?Confirmed ?Last Taken ?Type cholecalciferol (vitamin D3) 25 25 mcg PO DAILY 11/08/20 08/14/24 05/10/24 History mcg (1,000 unit) capsule clonazepam 0.5 mg tablet 0.5 mg PO DAILY PRN Anxiety 11/08/20 08/14/24 02/01/24 History finasteride 5 mg tablet 5 mg PO DAILY 11/08/20 08/14/24 05/10/24 History mometasone 220 mcg/actuation(30 2 inh inhalation BID 11/08/20 08/14/24 05/10/24 History doses) breath activated powder inhaler (Asmanex Twisthaler) saw palmetto 160 mg capsule 160 mg PO DAILY 11/08/20 08/14/24 05/10/24 History fluticasone propionate 50 1 spray intranasal BID 02/13/21 08/14/24 05/10/24 History mcg/actuation nasal spray,suspension (Flonase Allergy Relief) omeprazole 20 mg capsule,delayed 40 mg PO QPM 01/30/23 08/14/24 05/10/24 History release apixaban 5 mg tablet (Eliquis) 5 mg PO BID 01/05/24 08/14/24 05/10/24 History terazosin 10 mg capsule 10 mg PO DAILY 02/03/24 08/14/24 05/10/24 History tadalafil 5 mg tablet (Cialis) 5 mg PO BEDTIME 03/04/24 08/14/24 05/10/24 History metformin 750 mg tablet,extended 750 mg PO QPM 04/08/24 08/14/24 05/10/24 History release 24 hr diltiazem HCl 120 mg 120 mg PO BEDTIME 05/10/24 08/14/24 05/10/24 History capsule,extended release 24 hr atorvastatin 40 mg tablet 20 mg PO BEDTIME 08/14/24 08/14/24 Unknown History cyanocobalamin (vitamin B-12) 1,000 mcg PO DAILY 08/14/24 08/14/24 Unknown History 1,000 mcg tablet ketoconazole 2 % topical cream 1 appl topical BID PRN Rash 08/14/24 08/14/24 Unknown History miconazole nitrate 2 % topical 1 appl topical DAILY PRN Rash 08/14/24 08/14/24 Unknown History powder montelukast 10 mg tablet 10 mg PO BEDTIME 08/14/24 08/14/24 Unknown History semaglutide 1 mg/dose (4 mg/3 mL) 1 mg subcut CHASE 08/14/24 08/14/24 08/08/24 History subcutaneous pen injector (Ozempic) Physical Exam Vital Signs: Vital Signs: Last Vital Signs Temp 98.3 F 08/15/24 11:08 Pulse 64 08/15/24 11:08 Resp 16 08/15/24 11:08 BP 115/66 08/15/24 11:08 Pulse Ox 94 08/15/24 11:08 O2 Del Method Room Air 08/15/24 11:08 BMI result Body Mass Index 27.5 Neuro: Other: He is alert and awake with normal spontaneity of speech fluency comprehension and affect. Face is symmetrical. Visual mathews are full. There was no focal arm or leg weakness. Plantars are flexor. Speech is normal. Results Labs 08/15/24 07:49 08/15/24 07:49 Labs: Short CBC 08/14/24 08/15/24 Range/Units 15:13 07:49 WBC 8.4 7.5 (4.8-10.8) X10*3/uL Hgb 12.3 L 12.0 L (14.0-18.0) g/dl Hct 36.4 L 36.8 L (42.0-52.0) % Plt Count 123 L 118 L (160-400) X10*3/uL BMP 08/14/24 08/15/24 15:14 07:49 Sodium 141 139 Potassium 4.4 3.9 Chloride 109 H 108 Carbon Dioxide 23 24 BUN 17 H 16 Creatinine 0.75 0.69 Calcium 9.0 8.8 MRI of brain revealed a small right subcortical ischemic infarction. CTA revealed moderate right internal carotid artery atherosclerotic disease. Assessment and Plan (1) CVA (cerebral vascular accident): Qualifiers: CVA mechanism: embolism Precerebral and cerebral artery: middle cerebral artery Laterality of affected vessel: right Qualified Code(s): I63.411 - Cerebral infarction due to embolism of right middle cerebral artery Status: Acute 69 years old man with atrial flutter on anticoagulation taking medicines regularly developed perioral numbness. After awhile he developed left arm weakness and difficulty standing up. Now he was back to baseline. His brain imaging has revealed a small acute right middle cerebral artery infarct that could explain left arm weakness and numbness. Perioral numbness is not explainable and might be due to a smaller embolism. Overall situation is suggestive of cardiac source of embolism. He said that he has not missed dose of anticoagulation. CTA revealed moderate right internal carotid artery disease. I recommend continuing anticoagulation, instructions to take it regularly, and add baby aspirin couple of times a week. Carotid ultrasound should be repeated in 6 months' time. Procedures Date of Service Date of Service: 08/15/24
--- NOTE | 2024-08-15 13:06 | PM.DS ---
DS: Providers Provider Date of Service: 08/15/24 Date of admission: 08/14/24 17:44 Date of discharge: 08/15/24 Primary care physician: DINO Ledezma Consults: 08/14/24 17:46 Consult to Neurology Routine Consulting Provider: [facility] Reason for consultation: tia DS: Diagnosis Discharge Diagnosis (1) CVA (cerebral vascular accident): Status: Acute DS: Summary Hospital Course Hospital Course: from initial hpi: 69-year-old male with history of paroxysmal atrial flutter anticoagulated with Eliquis, history of MVP/mitral valve regurgitation s/p MVR with bioprosthetic valve, asthma/COPD overlap, hypertension, migraines, [id number] type 2 diabetes, BPH, hyperlipidemia presented to the ED earlier today for evaluation of stroke-like symptoms. He reports that earlier today he was at [place] and while driving back, developed numbness tingling around his lips while eating [place]. He also felt he was drooling. Shortly after while in the car, he felt like he was slurring his speech and he reports he felt numbness and tingling in the left hand and the left arm. He felt as if he could not lift his leg. Symptoms started at 1220 per his who was with him when symptoms started. Symptoms resolved around 230 per patient. He has been compliant with his eliquis. No hx cva. In the ED, vital signs have been stable. Hematology studies unremarkable with chronic anemia and chronic thrombocytopenia consistent with baseline. Renal function electrolyte levels normal. CTA of the head and neck negative for any large vessel occlusion or flow-limiting stenosis. There is bilateral proximal ICA stenosis, 65% on the right and 50% of the left. Possible right thyroid lesion, recommend further ultrasound non emergently. Head CT negative for any acute intracranial abnormality. EKG shows atrial fibrillation with right bundle branch block, rate 85, no ST/T-wave abnormality. In the ED, received Eliquis. hospital course: Patient was admitted for acute right basal ganglia CVA. Symptoms resolved. Was continued on apixaban and statin, seen by Dr. Jacobo of Neurology who recommended starting on baby aspirin 3 times a week and continuing apixaban and statin. For chronic diastolic CHF was continued on Lasix, Jardiance, diltiazem, spironolactone. For persistent atrial flutter was continued on diltiazem and Eliquis. For diabetes was continued on insulin. For COPD/ asthma was stable. for BPH was continued on alpha-karis. For chronic ITP with stable. Patient without residual deficits and will be discharged home. Time Attestation Discharge Coordination Time (in mins): 34 Quality: Safe Use of Opioids Does Pt have an Active Cancer Diagnosis on the Problem List?: No Quality: Stroke Does the patient have a stroke diagnosis?: Yes Reason for No Anti-thrombotic at DC: N/A - Med Ordered Reason for No Anticoagulant at DC: N/A - Med Ordered Reason Not Initiating IV-Tpa: Drug treatment not indicated Reason for No Anti-thrombotic by Day Two: N/A - Med Ordered Reason for No Statin at DC: N/A - Med Ordered Physical Exam Vital Signs: Vital Signs: Last Vital Signs Temp 98.3 F 08/15/24 11:08 Pulse 64 08/15/24 11:08 Resp 16 08/15/24 11:08 BP 115/66 08/15/24 11:08 Pulse Ox 94 08/15/24 11:08 O2 Del Method Room Air 08/15/24 11:08 BMI result Body Mass Index 27.5 Neuro: Other: He is alert and awake with normal spontaneity of speech fluency comprehension and affect. Face is symmetrical. Visual mathews are full. There was no focal arm or leg weakness. Plantars are flexor. Speech is normal. DS: Data Data Completed and Pending Completed studies during hospitalization [Text1]: Procedures Assistance with Respiratory Ventilation, Less than 24 Consecutive Hours, Continuous Positive Airway Pressure (05/10/24) Sabianism of Cardiac Rhythm, Single (02/01/24) Labs on day of discharge: Laboratory Results - last 24 hr 08/14/24 08/14/24 08/14/24 15:13 15:14 20:54 WBC 8.4 RBC 4.31 L Hgb 12.3 L Hct 36.4 L MCV 84.5 MCH 28.5 MCHC 33.8 RDW 16.0 Plt Count 123 L MPV 9.0 L Immature Gran % (Auto) 0.5 H Neut % (Auto) 82.3 H Lymph % (Auto) 8.1 L Callow[place] % (Auto) 8.3 Eos % (Auto) 0.4 Baso % (Auto) 0.4 Lymph # (Auto) 0.7 L [place] # (Auto) 0.7 Eos # (Auto) 0.0 Baso # (Auto) 0.0 Abs Immat Gran (auto) 0.04 H Absolute Neuts (auto) 6.9 Absolute Nucleated RBC 0.000 Nucleated RBC % (auto) 0.0 Hold Purple Top SEE NOTE PT 17.7 H D Whole Blood PT 16.5 H INR 1.5 H Whole Blood INR 1.4 H APTT 34.9 Sodium 141 Potassium 4.4 Chloride 109 H Carbon Dioxide 23 Anion Gap 13 BUN 17 H Creatinine 0.75 Estim Creat Clear Calc 93.2 Estimated GFR > 60 POC Glucose 127 H 115 Random Glucose 123 H Calcium 9.0 Troponin I High Sens 4.1 D Triglycerides 128 Cholesterol 97 LDL Cholesterol, Calc 42 HDL Cholesterol 30 L 08/15/24 08/15/24 08/15/24 07:13 07:49 11:10 WBC 7.5 RBC 4.30 L Hgb 12.0 L Hct 36.8 L MCV 85.6 MCH 27.9 MCHC 32.6 RDW 16.1 H Plt Count 118 L MPV 9.1 L Immature Gran % (Auto) 0.5 H Neut % (Auto) 84.5 H Lymph % (Auto) 6.4 L [place]allow[place] % (Auto) 7.6 Eos % (Auto) 0.5 Baso % (Auto) 0.5 Lymph # (Auto) 0.5 L [place] # (Auto) 0.6 Eos # (Auto) 0.0 Baso # (Auto) 0.0 Abs Immat Gran (auto) 0.04 H Absolute Neuts (auto) 6.3 Absolute Nucleated RBC 0.000 Nucleated RBC % (auto) 0.0 Hold Purple Top PT Whole Blood PT INR Whole Blood INR APTT Sodium 139 Potassium 3.9 Chloride 108 Carbon Dioxide 24 Anion Gap 11 L BUN 16 Creatinine 0.69 Estim Creat Clear Calc 101.3 Estimated GFR > 60 POC Glucose 127 H 160 H Random Glucose 139 H Calcium 8.8 Troponin I High Sens Triglycerides Cholesterol LDL Cholesterol, Calc HDL Cholesterol Discharge Plan Discharge Anticipated Discharge Date/Time: 08/15/24 13:04 Patient Disposition: Home, Self-Care Discharge Diagnosis: cva Referrals: Omer Mendez PA [Primary Care Provider] - 1 Week Discharge Medications: New aspirin 81 mg Tablet,Delayed Release (Dr/Ec) 81 mg PO 3XW Qty: 30 0RF Continued Jardiance 10 mg tablet 10 mg PO DAILY Qty: 90 3RF furosemide 40 mg tablet 40 mg PO DAILY Qty: 90 0RF Protocol: Hold for SBP< HOLD for SBP < : 90 terazosin 10 mg Capsule 10 mg PO DAILY spironolactone 25 mg tablet 12.5 mg PO DAILY Qty: 90 5RF diltiazem HCl 120 mg capsule,extended release 24hr 120 mg PO BEDTIME Rx Instructions: Stop Amiodarone, Start Diltiazem atorvastatin 40 mg Tablet 20 mg PO BEDTIME miconazole nitrate 2 % Powder 1 appl TOPICAL DAILY PRN (Reason: Rash) cyanocobalamin (vitamin B-12) 1,000 mcg Tablet 1,000 mcg PO DAILY montelukast 10 mg Tablet 10 mg PO BEDTIME ketoconazole 2 % Cream 1 appl TOPICAL BID PRN (Reason: Rash) Ozempic 1 mg/dose (4 mg/3 mL) Pen Injector 1 mg SUBCUT CHASE fluticasone propionate [Flonase Allergy Relief] 50 mcg/actuation spray,suspension 1 spray intranasal BID omeprazole 20 mg capsule,delayed release(DR/EC) 40 mg PO QPM cholecalciferol (vitamin D3) 25 mcg (1,000 unit) capsule 25 mcg PO DAILY saw palmetto 160 mg capsule 160 mg PO DAILY Rx Instructions: give with food (meal/snack) Asmanex Twisthaler 220 mcg/ actuation (30) aerosol powdr breath activated 2 inh inhalation BID finasteride 5 mg tablet 5 mg PO DAILY clonazepam 0.5 mg tablet 0.5 mg PO DAILY PRN (Reason: Anxiety) Rx Instructions: PDMP 07/24/2023 Eliquis 5 mg tablet 5 mg PO BID metformin 750 mg tablet extended release 24 hr 750 mg PO QPM Rx Instructions: Hold for 3 days tadalafil [Cialis] 5 mg tablet 5 mg PO BEDTIME Discharge Orders: Discharge Order (Routine); Ordered 08/15/24 Ordered By: Mark Rosales Diet: Advance to usual diet Activity on Discharge: As tolerated Stand Alone Forms: Patient Portal Discharge page Print Language: Yakut Care Plan Goals: prevent further strokes Health Concerns: stroke Plan of Treatment: continue eliquis, add baby aspirin 3 times per week Assessment: see above
--- NOTE | 2024-08-15 13:13 | MHC.CM.PN ---
Patient has been medically cleared for dc to [facility] today, self care.
== END 2024-08-15 14:33 | disposition home or self-care (01) | DRG 65 ==
LOC: HO.ED 16:10 → HO.EDOVER 17:54 → HO.IMC 19:28 → HO.EDOVER 21:18 → HO.IMC 23:29
PROVIDERS: Admitting Provider Physician Assistant; Emergency Provider Internal Medicine; PCP Physician Assistant; Visit Provider Internal Medicine
DX: I63.411 Cerebral infarction due to embolism of right middle cerebral artery (principal); D69.3 Immune thrombocytopenic purpura; I48.92 Unspecified atrial flutter; I50.32 Chronic diastolic (congestive) heart failure; G47.33 Obstructive sleep apnea (adult) (pediatric); I11.0 Hypertensive heart disease with heart failure; E11.9 Type 2 diabetes mellitus without complications; N40.0 Benign prostatic hyperplasia without lower urinary tract symptoms; J44.9 Chronic obstructive pulmonary disease, unspecified; R47.81 Slurred speech; K21.9 Gastro-esophageal reflux disease without esophagitis; F43.10 Post-traumatic stress disorder, unspecified; R20.2 Paresthesia of skin; R29.702 NIHSS score 2; Z95.2 Presence of prosthetic heart valve; Z79.01 Long term (current) use of anticoagulants; Z79.51 Long term (current) use of inhaled steroids; Z79.82 Long term (current) use of aspirin; Z79.84 Long term (current) use of oral hypoglycemic drugs; Z79.899 Other long term (current) drug therapy
CPT/HCPCS: 36415; 70450; 70496; 70498; 70551; 80048; 80061; 82947; 84484; 85025; 85610; 85730; 93005; 99285; Q9967

== ENCOUNTER → 2024-08-14 15:13 | Outpatient (BNV) | payer MEDICARE, OTHER, SELFPAY | PROVIDERS: Admitting Provider Physician Assistant; Emergency Provider Internal Medicine; PCP Physician Assistant; Visit Provider Internal Medicine Cardiovascular Disease | DX: I48.92 Unspecified atrial flutter (principal); I45.10 Unspecified right bundle-branch block | CPT/HCPCS: 93010 ==

== ENCOUNTER → 2024-08-14 15:13 | Outpatient (BNV) | payer MEDICARE, OTHER, SELFPAY | PROVIDERS: Emergency Provider Internal Medicine; PCP Physician Assistant; Visit Provider Radiology Diagnostic Radiology | DX: I65.23 Occlusion and stenosis of bilateral carotid arteries (principal); E04.1 Nontoxic single thyroid nodule; I63.81 Other cerebral infarction due to occlusion or stenosis of small artery; I63.9 Cerebral infarction, unspecified | CPT/HCPCS: 70450; 70496; 70498; 70551 ==

== ENCOUNTER → 2024-08-14 17:44 | Outpatient (BNV) | payer MEDICARE, OTHER, SELFPAY | PROVIDERS: Admitting Provider Physician Assistant; Emergency Provider Internal Medicine; PCP Physician Assistant; Visit Provider Psychiatry & Neurology Neurology | DX: I63.411 Cerebral infarction due to embolism of right middle cerebral artery (principal) | CPT/HCPCS: 99222 ==

== ENCOUNTER → 2024-08-14 17:44 | Outpatient (BNV) | payer MEDICARE, OTHER, SELFPAY | PROVIDERS: Admitting Provider Physician Assistant; Emergency Provider Internal Medicine; PCP Physician Assistant; Visit Provider Physician Assistant | DX: R20.2 Paresthesia of skin (principal) | CPT/HCPCS: 99223 ==

== ENCOUNTER 2024-08-18 13:47 | Outpatient (AMB) | payer MEDICARE, OTHER, SELFPAY ==
[2024-08-18 14:05] VITALS: BP 120/70; PULSE 83; BMI 27.2
--- NOTE | 2024-08-18 14:05 | A.OFFVIS_ITS ---
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: No Nuclear Equipment Sales Engineer: Nuclear Equipment Sales Engineer Present Accompanied by: Spouse Allergies DUSTIN Inhibitors [Dustin Inhibitors] Allergy (Severe, Verified 08/14/24 15:24) Anaphylaxis pineapple [PINEAPPLE] Allergy (Severe, Verified 08/14/24 15:24) Angioedema thimerosal [Thimerosal] Allergy (Severe, Verified 08/14/24 15:24) Angioedema fluoxetine [From PROZAC] Allergy (Intermediate, Verified 08/14/24 15:24) REQUIRED HOSPITALIZATION Penicillins Allergy (Intermediate, Verified 08/14/24 15:24) Rash tamsulosin Allergy (Mild, Verified 08/14/24 15:24) tacycardia aspartame [ASPARTAME] Allergy (Unknown, Verified 08/14/24 15:24) Unknown hexachlorophene [From PHISOHEX] Allergy (Unknown, Verified 08/14/24 15:24) Unknown melon Allergy (Unknown, Verified 08/14/24 15:24) Unknown perfume Allergy (Unknown, Verified 08/14/24 15:24) Unknown povidone-iodine [From BETADINE] Allergy (Unknown, Verified 08/14/24 15:22) Unknown soap [Betadine] Allergy (Unknown, Verified 08/14/24 15:22) Unknown codeine [Codeine] Adverse Reaction (Intermediate, Verified 08/14/24 15:24) wakes up combative meperidine [From Demerol] Adverse Reaction (Intermediate, Verified 08/14/24 15:24) Hallucinations monosodium glutamate Adverse Reaction (Intermediate, Verified 08/14/24 15:24) Headache morphine Adverse Reaction (Intermediate, Verified 08/14/24 15:24) wakes up combative dexon Allergy (Unknown, Uncoded 08/14/24 15:24) Unknown GLUE IN SHOES Allergy (Unknown, Uncoded 08/14/24 15:24) UNKNOWN PLASTIC TAPE Allergy (Unknown, Uncoded 08/14/24 15:24) skin problems POLYGLACTIC ACID(DEXON & VICRYL) Allergy (Unknown, Uncoded 08/14/24 15:24) UNKNOWN vicryl Allergy (Unknown, Uncoded 08/14/24 15:24) Unknown Medication List - Last Reconciled 08/18/24 by James Fernando MD apixaban (Eliquis) 5 mg PO BID aspirin 81 mg PO 3XW atorvastatin 20 mg PO BEDTIME cholecalciferol (vitamin D3) 25 mcg PO DAILY clonazepam 0.5 mg PO DAILY PRN cyanocobalamin (vitamin B-12) 1,000 mcg PO DAILY diltiazem HCl CD 120 mg PO BEDTIME empagliflozin (Jardiance) 10 mg PO DAILY finasteride 5 mg PO DAILY fluticasone propionate 50 mcg/actuation (Flonase Allergy Relief) 1 spray intranasal BID furosemide 40 mg See Protocol PO DAILY ketoconazole 2% 1 appl topical BID PRN metformin ER 750 mg PO QPM miconazole nitrate 2% 1 appl topical DAILY PRN mometasone (Asmanex Twisthaler) 2 inhalations inhalation BID montelukast 10 mg PO BEDTIME omeprazole 40 mg PO QPM saw palmetto 160 mg PO DAILY semaglutide (Ozempic) 1 mg subcut CHASE spironolactone 12.5 mg (1/2 x 25 mg) PO DAILY tadalafil (Cialis) 5 mg PO BEDTIME terazosin 10 mg PO DAILY HPI Comments Details: Jared comes for follow-up. Over the weekend had neurologic symptoms and subsequently had brain MRI imaging which shows acute basal ganglia CVA. He was then started on aspirin therapy in addition to Eliquis therapy. He said he has been very persistently taking his Eliquis therapy. Continues to have symptoms of fatigue although says since mitral valve replacement and feels a lot better. He has been able to go up and down the stairs without significant symptoms. His leg edema has improved. He is currently developing some left breast swelling he thinks related to spironolactone therapy. It is undergoing imaging for the [facility] in the near future. He was taking all his medications including current diuretic dose. No lightheadedness, syncope. Still participate in phase 2 cardiac rehabilitation which has been on hold since his CVA. No orthopnea, PND, leg edema, lightheadedness, syncope. [facility] Medical History CVA (cerebral vascular accident) Paroxysmal atrial flutter Prosthetic valve dysfunction Atrial flutter Elevated cholesterol History of GI diverticular bleed BPH (benign prostatic hyperplasia) History of blood transfusion GERD (gastroesophageal reflux disease) Type 2 diabetes mellitus Depression with anxiety PTSD (post-traumatic stress disorder) Migraine COPD, mild Asthma HTN (hypertension) Obstructive sleep apnea Enlarged RV (right ventricle) Mitral regurgitation Surgical History S/P MVR (mitral valve replacement) History of esophagogastroduodenoscopy (EGD) H/O colonoscopy History of excision of lesion (06/25/22) History of arthroscopy of right knee History of left inguinal hernia repair History of repair of right rotator cuff History of repair of left rotator cuff History of mitral valve replacement Hx of cardiac cath Family History Father Rheumatic fever Mother No problems noted. Sister Hx of aortic valve repair Brother Mitral valve replaced Social History Household Members: Family Housing: House Do you presently have visiting nurse or other home services: No Alcohol intake: current Alcohol intake frequency: holidays/special occasions only Comment: pt refusing precautions steady on feet Patient Tobacco Use Status: Former Tobacco user Second Hand Smoke Exposure: No Advance Directives Date on File: 02/03/24 service: Yes Current occupational status: retired Current occupation: ambidextrous, 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 Review of Systems Const Denies chills, Denies fatigue, Denies fever(s), Denies frequent falls, Denies weakness, Denies weight gain and Denies weight loss ENT Denies dizziness Card Denies chest pain, Denies leg edema, Denies lightheadedness, Denies palpitations, Denies dyspnea, Denies dyspnea on exertion, Denies orthopnea and Denies other (loss of consciousness) Resp Denies cough, Denies dyspnea and Denies dyspnea on exertion GI Denies hematochezia and Denies change in stool character Musc Denies abnormal gait, Denies muscle weakness, Denies numbness, Denies radiating pain into limb and Denies tingling Neuro Denies abnormal gait, Denies dizziness, Denies frequent falls, Denies numbness, Denies tingling and Denies weakness Endo Denies fatigue and Denies palpitations Physical Exam Vital Signs: Last Vital Signs Pulse 83 08/18/24 14:05 BP 120/70 08/18/24 14:05 BMI result Body Mass Index 27.2 Const General: cooperative, healthy appearing, comfortable and no acute distress Orientation/consciousness: patient oriented x3 Neck Neck: Yes normal visual inspection Resp Effort & Inspection: normal respiratory effort Auscultation: clear to auscultation bilaterally, no rales, no rhonchi and no wheezes Cardio Jugular venous distension: no JVD Rate: regular rate Rhythm: abnormal rhythm Heart sounds: S1 normal heart sound present, S2 normal heart sound present, no murmurs and no rubs Neuro General: patient oriented x3 Extrem Other: sock marking present General: Yes normal to inspection, No clubbing, No cyanosis and No edema Psych Appearance: grossly normal Mental Status: mental status grossly normal Speech and movement: Normal speech and movement present Assessment & Plan Assessment & Plan (1) Status post transcatheter mitral valve replacement: Code(s): Z95.2 - Presence of prosthetic heart valve Category: Surgical Plan: Status post transcatheter 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 Doing extremely well from that perspective. Still continues to have symptoms of fatigue which may be multifactorial related to deconditioning, related to recent stroke, related to persistent atrial flutter. I have recommended him to pursue cardiac rehab for now. If his symptoms persist after 4-6 weeks of exercise program may pursue rhythm control approach. This was discussed with him. Continue Eliquis therapy and aspirin therapy. SBE prophylaxis as per ACC/[facility] guidelines. (2) Heart failure due to valvular disease: Code(s): I50.9 - Heart failure, unspecified; I38 - Endocarditis, valve unspecified Category: Medical Plan: Heart failure secondary to valvular heart disease with secondary pulmonary hypertension. Clinically doing very well on current therapy. Continue current diuretic therapy. Continue therapy with Jardiance. Given his gynecomastia will suggest to switch him to eplerenone therapy. Continue monitor renal function. Daily weight monitoring avoidance salt loading was discussed. Continue to participate in cardiac rehab. (3) Atrial flutter: Code(s): I48.92 - Unspecified atrial flutter Category: Medical Qualifiers: Atrial flutter type: typical Qualified Code(s): I48.3 - Typical atrial flutter Plan: Persistent atrial flutter despite mitral valve replacement related to structural left atrial abnormality. Patient currently still has symptoms fatigue which could be multifactorial. Participate in phase 2 cardiac rehabilitation if still persist symptomatic will pursue rhythm control approach. Will require amiodarone loading as well as continue use of oral anticoagulant therapy. (4) CVA (cerebral vascular accident): Code(s): I63.9 - Cerebral infarction, unspecified Category: Medical Qualifiers: CVA mechanism: embolism Precerebral and cerebral artery: middle cerebral artery Laterality of affected vessel: right Qualified Code(s): I63.411 - Cerebral infarction due to embolism of right middle cerebral artery Plan: Recent CVA in the setting of taking full oral anticoagulation with Eliquis. Most likely related to mitral replacement although could also be related carotid disease. Agree with aspirin therapy and should probably continue dual therapy with increase risk of bleeding but will require to avoid recurrent episodes. Follow up in the clinic in 6 weeks time, sooner p.r.n.. Thank you for allowing me to partake in his care Medications: New eplerenone 12.5 mg (1/2 x 25 mg) PO DAILY 30 tabs 5RF eplerenone 12.5 mg (1/2 x 25 mg) PO DAILY 30 tabs 5RF Discontinued spironolactone Discontinued Reason: Doctor's Order 12.5 mg (1/2 x 25 mg) PO DAILY 90 tabs 5RF Coding Level of Care Code Est Pt Level 4 (28384) Complex EM visit Add On G2211 Diagnoses Status post transcatheter mitral valve replacement Z95.2 Heart failure due to valvular disease I50.9; I38 Typical atrial flutter I48.3 Atrial flutter type: typical Cerebrovascular accident (CVA) due to embolism of right middle cerebral artery I63.411 CVA mechanism: embolism Precerebral and cerebral artery: middle cerebral artery Laterality of affected vessel: right
--- OUTSIDE RECORDS SUMMARY | 2024-08-18 16:30 | XMS_ITS | Encounter Summary ---
Author Name [facility] [place] [facility] Address [address] [place] [id number] Care Team Providers Care Admissions Gate Attendant Name Role Phone CHITO MEDRANO Primary Care [...] PART A Feb 16, 2018 PART A [id number] YENNY OVIEDO PATIENT MEDICARE (WNR) MEDICARE (M) PART B Feb 16, 2018 PART B [id number] YENNY OVIEDO ES PATIENT MEDICARE (WNR) MEDICARE (M) PART A Oct 17, 2006 PART A [id number] [facility] YENNY OVIEDO PATIENT FOR LIFE TFL* Apr 06, 2018 [id number] YENNY OVIEDO PATIENT Selected Encounter This section includes the information on record at [place] for the Encounter. Date/Time Encounter Type Encounter Description Reason Provider Source Aug 18, 2024 03:22 PM Outpatient Encounter PRIMARY CARE/MEDICINE AISHA SANDERS Ayah Encounter Template Text not used by [place] Plan of Treatment: Future Appointments (+ 6 months) and Future Tests (+/- 45 days) The Plan of Treatment section includes future care activities for the [facility] This section includes future appointments and future orders which are active, pending or scheduled. Future Appointments This section includes appointments that were scheduled to occur 6 months from the date of the Encounter, up to a maximum of 20 appointments. The data comes from all [facility]. Appointment Date/Time Appointment Type Appointme nt Facility Name Aug 23, 2024 08:00 AM [facility] October 08, 2024 09:00 AM AMBULATORY - MEDICINE [facility] Nov 01, 2024 08:00 AM AMBULATORY - MEDICINE [facility] Nov 05, 2024 08:00 AM AMBULATORY - MEDICINE [facility] Jan 04, 2025 07:30 AM AMBULATORY - NONE [facility] Active, Pending, and Scheduled Orders This section includes a listing of several types of active, pending, and scheduled orders, including clinic medications orders, diagnostic test orders, procedure orders and consult orders; where the start date of the order is 45 days before the date of the Encounter or 45 days after the date of theEncounter. The data comes from all [facility]. Test Date/Time Test Type Test Details Facility Name Jul 30, 2024 08:59 AM Consult Order COMMUNITY CARE-MAMMOGRAPHY [facility]NOSTIC Cons Language Tutor's Choice [facility] Aug 23, 2024 12:00 AM Laboratory - Chemistry Order CBC AND DIFF (AUTO) BLOOD (LAV-BLOOD) [facility] Aug 23, 2024 12:00 AM Laboratory - Chemistry Order BASIC METABOLIC PANEL (fasting) BLOOD (SST-SERUM) [facility] Aug 25, 2024 12:00 AM Imaging - Ultrasou nd Order ULTRASOUND NECK (THYROID,HEAD,SOFT TISSUE) [facility] Lab Results: +/- 30 days of [...] - Unit Interpretation Reference Range Comment Jul 23, 2024 09:42 AM [facility] HEMOGLOBIN A1C PANEL Specimen Type: BLOOD Comment: Values obtained from A1C measurements can vary. For atypical A1C assays, a reported value of 7.0 could actually be between 6.72 and 7.28 if measured by a reference method. A reported value of 9.0 could actually be between 8.73 and 9.27. Ref: http://www.ngs p.org/CAPdata. asp Ordering Provider: AYUSH MEDRANO F Report Released Date/Time: Jul 23, 2024 08:10 AM Reporting Lab: [address] [address] Performing Lab: [address] [address] HEMOGLOBIN A1C 6.5 H 4.0-5.6 Jul 23, 2024 09:42 AM [facility] VITAMIN B12 Specimen Type: SERUM No comment entered. Ordering Provider: AYUSH MEDRANO F Report Released Date/Time: Jul 23, 2024 08:10 AM Reporting Lab: [facility] [address] [facility] [address] Performing Lab: [address] [address] VITAMIN B12 >2000 pg/mL H 200-900 Jul 23, 2024 09:42 AM [facility] MICROALBUMIN CREATININE RATIO PANEL Specimen Type: URINE No comment entered. Ordering Provider: AYUSH MEDRANO F Report Released Date/Time: Jul 23, 2024 08:10 AM Reporting Lab: [address] [address] Performing Lab: [address] [address] MICROALBUMIN/C REATININE RATIO 19.8 mg/g 0-29.9 MICROALBUMIN,Q UANTITATIVE 1.3 mg/dL RR UNAVAIL CREATININE URINE 65.62 mg/dL Jul 23, 2024 09:42 AM [facility] LIPID PANEL FASTING Specimen Type: SERUM No comment entered. Ordering Provider: AYUSH MEDRANO F Report Released Date/Time: Jul 23, 2024 08:10 AM Reporting Lab: [facility] [address] [facility] [address] Performing Lab: [address] [address] CHOLESTEROL 121 mg/dL TRIGLYCERIDE 169 mg/dL H 0-150 LDL calculated 58 mg/dL 0-129 CHOL/HDL 4.2 HDL CHOLESTEROL 29 mg/dL L 40-60 Jul 23, 2024 09:42 AM [facility] LIVER FUNCTION Specimen Type: SERUM No comment entered. Ordering Provider: AYUSH MEDRANO F Report Released Date/Time: Jul 23, 2024 08:10 AM Reporting Lab: [facility] [address] [facility] [address] Performing Lab: [address] [address] PROTEIN,TOTAL 7.3 g/dL 6.0-8.3 ALBUMIN 3.5 g/dL 3.5-5.0 ALKALINE PHOSPHATASE 60 U/L 40-150 AST 23 U/L 5-34 ALT 18 U/L BILIRUBIN, TOTAL 2.1 mg/dL H 0.2-1.2 BILIRUBIN, DIRECT 0.9 mg/dL H 0-0.5 Jul 23, 2024 09:42 AM [facility] BASIC METABOLIC PANEL (fasting) Specimen Type: SERUM No comment entered. Ordering Provider: AYUSH MEDRANO F Report Released Date/Time: Jul 23, 2024 08:10 AM Reporting Lab: [facility] [address] [facility] [address] Performing Lab: [address] [address] UREA NITROGEN 25 mg/dL 7-25 GLUCOSE 154 mg/dL H 65-100 SODIUM 134 mmol/L L 135-145 POTASSIUM 3.3 mmol/L L 3.5-5.0 CHLORIDE 96 mmol/L L 100-110 CO2 25 meq/L 20-30 CALCIUM 8.6 mg/dL 8.5-10.2 CREATININE, Serum 1.01 mg/dL 0.50-1.40 eGFR(CKD-EPI 2020) 79 mL/min >60 Jul 23, 2024 09:42 AM [facility] VITAMIN D (25-OH) Specimen Type: SERUM No comment entered. Ordering Provider: AYUSH MEDRANO Report Released Date/Time: Jul 23, 2024 08:10 AM Reporting Lab: [address] [address] Performing Lab: [address] [address] VITAMIN D (25-OH) 37 ng/mL 20-50 Social History: Smoking Status (Most current) and [...] Current Smoking Status Comment Ginger ellis Jul 30, 2024 08:00 AM VA-TOBACCO USE FOR NICOLE CIGARETTES [facility] Tobacco Use History This section includes a history of the smoking, or tobacco-related health factors, that were collected on or before the date of the Encounter. The data comes from the [place] facility where the Encounter took place. Date/Time Smoking Status/Tobacco Use Comment F yusef Jul 30, 2024 08:00 AM VA-TOBACCO USE FOR NICOLE CIGARETTES [facility] Jul 21, 2023 01:30 PM VA-TOBACCO FORMER USER [facility] Jul 21, 2023 01:30 PM VA-TOBACCO QUIT 15 YRS OR MORE [facility] Mar 28, 2021 03:28 PM VA-TOBACCO FORMER USER [facility] Mar 28, 2021 03:28 PM VA-TOBACCO QUIT 15 YRS OR MORE [facility] Dec 02, 2019 09:36 AM VA-TOBACCO NEVER USED [facility] Apr 23, 2005 10:19 AM QUIT TOBACCO USE IN PAST YEAR [facility] Advance Directives: All historical and current [...] Encounter. Date/Time Encounter Note(s) Provider Source Aug 18, 2024 03:22 PM PRIMARY CARE [place] MESSAGING: LOCAL TITLE: PRIMARY CARE SECURE MESSAGING STANDARD TITLE: PRIMARY CARE SECURE MESSAGING DATE OF NOTE: AUG 18, 2024@15:22 ENTRY DATE: AUG 18, 2024@15:22:59 AUTHOR: AISHA SANDERS EXP COSIGNER: URGENCY: STATUS: COMPLETED ------Original Message -------- Sent: 08/18/2024 03:22 PM ET From: AISHA SANDERS To: ANDREEA OVIEDO Subject: Medication:[facility] Admission Good Afternoon, Mr. Medrano reviewed all of your notes and has ordered a follow-up ultrasound of your Thyroid, the radiology team will call you you to schedule this. He has ordered the baby aspirin for you to take 3 times a week. The Neurologist has also requested a Carotid Ultrasound in 6 months and that has also been ordered. If you are interested in any Physical or Speech Therapy here please let us know and we can arrange. Thank you for your service, MANJU Ware - PACT Ocean Fishing Guide /es/ AISHA SANDERS RN REGISTERED NURSE Signed: 08/18/2024 15:22 AISHA SANDERS [facility]
--- OUTSIDE RECORDS SUMMARY | 2024-08-18 16:31 | XMS_ITS | Continuity of Care Document ---
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 It does not include entries that were removed or entered in error. Problem Status Onset Date Problem Type Date of Resolution Comments Source Atrial fibrillation (SCT 68657825) Active Condition [facility] [place] [facility] Benign essential hypertension (SNOMED CT 1793518) Active Condition Jan 07, 2008 Entered By: JULIO CHAMPION Comment: Dr Saunders [facility] [place] [facility] Benign localized hyperplasia of prostate Active Condition [place] COPD - Chronic Obstructive Pulmonary Disease (SCT 64021985) Active Condition [facility] Deficiency of vitamin D3 Active Condition [place] Degenerative arthritis (SNOMED CT 065650244) Active Condition [place] Diabetes mellitus type 2 (SNOMED CT 38830270) Active Condition [place] Disorder of rotator cuff Active Condition [place] Diverticulitis, Colonic * (ICD-9-CM 562.11) Active Condition Jan 03 22 Entered By: SAMI PARRY Comment: COLONOSCOPY - Oct Other: [facility], [place], [place] REPEAT 5 YEARS [facility] [place] [facility] Exposure to potentially hazardous substance (SCT 720095390622257) Active Condition Aug 26 4 Entered By: NIKIA PHILIP Comment: Entered automatically through [facility] Problem List documentation program [facility] [place] [facility] Gastroesophageal reflux disease Active Condition [facility] Gastroesophageal Reflux Disorder Active Condition [facility] Hyperlipidaemia (SNOMED CT 43096844) Active Condition [facility] [place] [facility] Long-term current use of anticoagulant Active Condition [facility] (6[facility]GE) Lumbar Radiculopathy Active Condition May 15, 2011 Entered By: MEETA DESIR Comment: EMG motor loss post.tib Bilat Chronic R. L5-S1 dennerv.May 15, 2011 Entered By: MEETA DESIR Comment: L-S MRI 01/27 disc bulge + mild mod stenosis L3-4, 4-5.+May 15, 2011 Entered By: MEETA DESIR Comment: R.L4-5 foraminal narrowing. Schmorl's node T12 [facility] [place] [facility] Mitral Valve Prolapse Active Condition Dec 03, 2007 Entered By: JULIO CHAMPION Comment: Sees Dr Kassidy Campbell [phone] 2008 Entered By: MEETA DESIR Comment: ECHO 01/25 EF 55-60%. AV mildly thickened. No AI/. mild LAESep 2008 Entered By: MEETA DESIR Comment: myxom. degen MV. mild MVP.mild-mod MR. mild TR. [id number] 2010 Entered By: MEETA DESIR Comment: Echo 02/26EF60%,2-3+ MR,LAE,myx.dege n MV, no change fr 2008 [place] Obesity Active Condition [facility] [place] [facility] Panic Attacks Active Condition [facility] [place] [facility] Posttraumatic Stress Disorder Active Condition [facility] [place] [facility] - Sleep apnea syndrome Active Condition [place] Thrombocytopenia Active Condition [facility] Gynecomastia Inactive Condition 12/03/2007Mar Entered By: MARILYN SEGURA AM Comment: right [facility] [place] [facility] Hernia, Inguinal (ICD-9-CM 550.90) Inactive Condition 05/21/2007 [facility] [place] [facility] Intolerance to Benzodiazpine(sienna ble to function and oversedated.) Inactive Condition 12/03/2007 [facility] [place] [facility] Intolerance to Narcotics(hallucin ates and dazed.) Inactive Condition 12/03/2007 [facility] [place] [facility] Diagnosis: ICD-10-CM I48.91 Unspecified atrial fibrillation Active Diagnosis [facility] [place] [facility] Diagnosis: ICD-10-CM L60.3 Nail dystrophy Active Diagnosis [facility] Diagnosis: ICD-10-CM K03.6 Deposits [accretions] on teeth Active Diagnosis [facility] [place] [facility] Diagnosis: ICD-10-CM E11.8 Type 2 diabetes mellitus with unspecified complications Active Diagnosis [place] Diagnosis: ICD-10-CM Z46.0 Encounter for fit/adjst of spectacles and contact lenses Active Diagnosis [facility] [facility] Diagnosis: ICD-10-CM E11.9 Type 2 diabetes mellitus without complications [facility] [place] Diagnosis: ICD-10-CM K03.81 Cracked tooth Active Diagnosis [facility] [place] [facility] Diagnosis: ICD-10-CM Z51.81 Encounter for therapeutic drug level monitoring Active Diagnosis [facility] (631GE) Diagnosis: ICD-10-CM G47.30 Sleep apnea, unspecified Active Diagnosis [place] [facility] [place] [facility] Diagnosis: ICD-10-CM R00.2 Palpitations Active Diagnosis [place] [facility] [place] [facility] Diagnosis: ICD-10-CM G47.33 Obstructive sleep apnea (adult) (pediatric) Active Diagnosis [facility] Diagnosis: ICD-10-CM M25.312 Other instability, left shoulder Active Diagnosis [facility] [place] [facility] Medications Combined list of outpatient medications from Department of Defense and Veterans Affairs facilities.Medications provided include 1) outpatient medications from the last 15 months, and 2) patient-reported medications. Medication Details Route Status Patient Instructions Prescription Expires Prescription Number Last Dispense Date Ordering Provider Order Date Order Qty Source ALBUTEROL 100MCG/IPRA TROPIUM BR 20MCG/SPRAY INHALER,ORA L,4GM INHALE 1 PUFF BY MOUTH FOUR TIMES DAILY NEEDED --FOR BREATHIN G ORAL ACTIVE 02/11/2025 [id number] CHITO SEGURA 2023 2 [facility] [place] [facility] AMIODARONE HCL 200MG TAB TAKE ONE TABLET BY MOUTH ONCE DAILY ORAL DISCONT INUED BY PROVIDE R 02/05/2025 [id number] NATHANIEL VERONICA 2023 30 [facility] [place] [facility] [facility] APIXABAN 5MG TAB TAKE ONE TABLET BY MOUTH EVERY 12 HOURS FOR PREVENTI ON OF BLOOD CLOTS ORAL ACTIVE 02/18/2025 [id number] 5 CHITO SEGURA 2023 180 [facility] ATORVASTATI N CA 40MG TAB TAKE ONE-HALF TABLET BY MOUTH EVERY EVENING FOR CHOLESTE ROL ORAL ACTIVE 05/29/2025 [id number] 5 CHITO SEGURA 2024 45 [facility] [place] [facility] ATORVASTATI N CA 40MG TAB TAKE ONE-HALF TABLET BY MOUTH EVERY EVENING FOR CHOLESTE ROL ORAL DISCONT INUED 04/28/2024 [id number] 4 CHITO SEGURA 2023 45 [facility] [place] [facility] CEPHALEXIN 500MG CAP TAKE FOUR CAPSULES BY MOUTH ONE TIME 1 HOUR PRIOR TO DENTAL APPOINTM ENT (8 CAPSULES COVERS 2 DENTAL APPOINTM ENTS) 1 HOUR PRIOR TO DENTAL APPOINTM ENT (8 CAPSULES COVERS 2 DENTAL APPOINTM ENTS) ORAL 07/01/2024 [id number] VIKI KELLEY [address] [facility] [place] [facility] CEPHALEXIN 500MG CAP TAKE FOUR CAPSULES BY MOUTH ONE TIME ; TAKE ONE HOUR PRIOR TO DENTAL APPOINTM ENT (8 CAPSULES COVERS 2 DENTAL APPOINTM ENTS) ORAL 03/20/2024 [id number] VIKI KELLEY [address] [facility] [place] [facility] CHOLECALCIF NICK 25MCG (1,000UNIT) TAB TAKE ONE TABLET BY MOUTH ONCE DAILY FOR VITAMIN SUPPLEME NTATION ORAL ACTIVE 05/29/2025 [id number] 5 CHITO SEGURA [address] [facility] [place] [facility] CLONAZEPAM 0.5MG TAB TAKE ONE TABLET BY MOUTH AT BEDTIME NEEDED FOR PANIC DISORDER (DO NOT TAKE WITH ALCOHOL OR ANY MEDICATI ONS THAT ARE SEDATING . DO NOT DRIVE OR OPERATE VeroseeR [employer] WHILE TAKING THIS) ORAL DISCONT INUED 07/17/2023 [id number] ROBERTSRA DERECK Poon 2023 30 [facility] CLONAZEPAM 0.5MG TAB TAKE ONE TABLET BY MOUTH AT BEDTIME NEEDED FOR PANIC DISORDER (DO NOT TAKE WITH ALCOHOL OR ANY MEDICATI ONS THAT ARE SEDATING . DO NOT DRIVE OR OPERATE MACHINER Y WHILE TAKING THIS) ORAL 08/20/2023 [id number] 4 CHITO SEGURA 2023 30 [facility] [place] [facility] CYANOCOBALA MIN 1000MCG TAB TAKE ONE TABLET BY MOUTH ONCE DAILY ORAL ACTIVE 01/22/2025 [id number] 5 CHITO SEGURA 2023 90 [facility] [place] [facility] [facility] CYANOCOBALA MIN 1000MCG TAB TAKE ONE TABLET BY MOUTH ONCE DAILY ORAL DISCONT INUED 04/28/2024 [id number] CHITO SEGURA 2022 90 [facility] [place] [facility] DICLOFENAC 1% GEL (EQV-VOLTAR EN) GEL,TOP APPLY TOPICALL Y FOUR TIMES A DAY TOPICA L ACTIVE CHITO SEGURA 2022 [facility] [place] [facility] [facility] DILTIAZEM (EQV-CARDIZ EM AB3) 120MG 24HR CAP TAKE ONE CAPSULE BY MOUTH ONCE DAILY FOR HIGH BLOOD PRESSURE ORAL ACTIVE 07/31/2025 [id number] 5 CHITO SEGURA 2024 90 [facility] [place] [facility] DILTIAZEM (EQV-CARDIZ EM AB3) 120MG 24HR CAP TAKE ONE CAPSULE BY MOUTH ONCE DAILY FOR HIGH BLOOD PRESSURE ORAL DISCONT INUED 08/26/2024 [id number] 5 CHITO SEGURA 2024 90 [facility] [place] [facility] [facility] DILTIAZEM (EQV-CARDIZ EM AB3) 120MG 24HR CAP TAKE ONE CAPSULE BY MOUTH ONCE DAILY FOR HIGH BLOOD PRESSURE ORAL DISCONT INUED 06/08/2024 [id number] 4 CHITO SEGURA 2023 90 [facility] [place] [facility] [facility] DILTIAZEM (EQV-CARDIZ EM AB3) 180MG 24HR CAP TAKE ONE CAPSULE BY MOUTH ONCE DAILY ORAL DISCONT INUED BY PROVIDE R 06/04/2024 [id number] 4 NATHANIEL VERONICA AV 2023 90 [facility] [place] [facility] [facility] EMPAGLIFLOZ IN 10MG TAB TAKE ONE TABLET BY MOUTH ONCE DAILY ORAL ACTIVE TANAEULALIA ENCARNACION BIE 2023 [place] EMPAGLIFLOZ IN 25MG TAB TAKE ONE-HALF TABLET BY MOUTH ONCE DAILY FOR TYPE 2 DIABETES MELLITUS ORAL DISCONT INUED BY PROVIDE R 04/13/2025 [id number] EULALIA FAJARDO 2023 45 [place] EPINEPHRINE (EQV-EPI-PE N) 0.3MG/0.3ML INJECTOR INJECT DIRECTED INTRAMUS CULARLY NEEDED FOR LIFE THREATEN ING ALLERGIC REACTION INTRAM USCULA R 04/21/2024 [id number] 4 CHITO SEGURA 2023 2 [facility] [place] [facility] FINASTERIDE 5MG TAB TAKE ONE TABLET BY MOUTH DAILY FOR PROSTATE ORAL ACTIVE 01/22/2025 [id number] 5 CHITO SEGURA 2023 90 [facility] [place] [facility] FINASTERIDE 5MG TAB TAKE ONE TABLET BY MOUTH DAILY FOR PROSTATE ORAL DISCONT INUED 02/19/2024 [id number] 4 DAVID MOORE F 2022 90 [place] FLUTICASONE PROPIONATE 50MCG/SPRAY SOLN,NASAL, 16GM INSTILL 2 SPRAYS INTO EACH NOSTRIL ONCE DAILY NEEDED FOR NASAL IRRITATI ON/INFLA MMATION NASAL DISCONT INUED 02/19/2024 [id number] 4 DAVID MOORE F 2022 3 [place] FLUTICASONE PROPIONATE 50MCG/SPRAY SOLN,NASAL, 16GM INSTILL 2 SPRAYS INTO EACH NOSTRIL ONCE DAILY NEEDED FOR NASAL IRRITATI ON/INFLA MMATION NASAL 07/21/2024 [id number] 4 CHITO SEGURA 2023 3 [facility] [place] [facility] FUROSEMIDE 40MG TAB TAKE ONE TABLET BY MOUTH EVERY MORNING TO REMOVE FLUID/CO NTROL BLOOD PRESSURE ORAL ACTIVE 07/31/2025 [id number] 5 CHITO SEGURA 2024 90 [facility] [place] [facility] [facility] FUROSEMIDE 40MG TAB TAKE ONE TABLET BY MOUTH TWICE DAILY TO REMOVE FLUID/CO NTROL BLOOD PRESSURE ORAL DISCONT INUED (EDIT) 05/29/2025 [id number] 5 CHITO SEGURA 2024 180 [facility] [place] [facility] [facility] KETOCONAZOL E 2% CREAM,TOP APPLY A SMALL AMOUNT TOPICALL Y TWICE DAILY FOR FUNGAL INFECTIO N OF SKIN TOPICA L ACTIVE 07/08/2025 [id number] CODYCHAVA F 2024 60 [place] KETOCONAZOL E 2% CREAM,TOP APPLY A THIN LAYER TOPICALL Y TWICE DAILY FOR ATHLETE' S FOOT TOPICA L 06/13/2024 [id number] CODYCHAVA F 2023 60 [place] METFORMIN HCL 750MG 24HR TAB,SA TAKE ONE TABLET BY MOUTH EVERY EVENING FOR TYPE 2 DIABETES MELLITUS ORAL ACTIVE 04/13/2025 [id number] 5 EULALIA FAJARDO 2024 90 [place] METFORMIN HCL 750MG 24HR TAB,SA TAKE TWO TABLETS BY MOUTH EVERY EVENING ORAL DISCONT INUED (EDIT) 07/21/2024 [id number] 4 CHITO SEGURA 2023 180 [facility] [place] [facility] [facility] METOPROLOL SUCCINATE 25MG TAB,SA TAKE ONE TABLET BY MOUTH TWICE DAILY FOR HEART FAILURE ORAL DISCONT INUED BY SHEMAR R 04/28/2024 [id number] CHITO SEGURA 2022 180 [facility] [place] [facility] [facility] METRONIDAZO LE 500MG TAB TAKE FOUR TABLETS BY MOUTH ONE TIME DENTAL PRE-MEDI CATION (COVERS 2 APPOINTM ENTS) ORAL 03/18/2024 [id number] DESIISA WINTERRE 2023 8 [facility] [place] [facility] MICONAZOLE NITRATE 2% PWDR,TOP APPLY SMALL AMOUNT TOPICALL Y ONCE DAILY NEEDED FOR ATHLETE' S FOOT TOPICA L ACTIVE 07/08/2025 [id number] CHAVA ROSS F 2024 85 [place] MICONAZOLE NITRATE 2% PWDR,TOP APPLY SMALL AMOUNT TOPICALL Y TWICE DAILY FOR ATHLETE' S FOOT TOPICA L 07/03/2024 [id number] 4 CHAVA ROSS F 2023 85 [place] MOMETASONE FUROATE 200MCG/ACTU AT INHL,ORAL,1 20D,13GM INHALE 2 PUFFS BY MOUTH TWICE DAILY FOR CONTROLL ER MEDICATI ON FOR ASTHMA --RINSE MOUTH AFTER EACH USE RESPIR ATORY (INHAL ATION) ACTIVE 01/22/2025 [id number] 5 CHITO SEGURA 2023 3 [facility] [place] [facility] MOMETASONE FUROATE 200MCG/ACTU AT INHL,ORAL,1 20D,13GM INHALE 2 PUFFS BY MOUTH TWICE DAILY FOR CONTROLL ER MEDICATI ON FOR ASTHMA --RINSE MOUTH AFTER EACH USE RESPIR ATORY (INHAL ATION) DISCONT INUED 04/23/2024 [id number] SAMI PARRY 2022 3 [place] MONTELUKAST NA 10MG TAB TAKE ONE TABLET BY MOUTH EVERY EVENING FOR CONTROLL ER MEDICATI ON FOR ASTHMA ORAL ACTIVE 05/29/2025 [id number] 5 CHITO SEGURA 2024 90 [facility] [place] [facility] MONTELUKAST NA 10MG TAB TAKE ONE TABLET BY MOUTH EVERY EVENING FOR CONTROLL ER MEDICATI ON FOR ASTHMA ORAL DISCONT INUED 04/28/2024 [id number] CHITO SEGURA 2023 90 [facility] [place] [facility] [facility] OMEPRAZOLE 20MG CAP,EC TAKE TWO CAPSULES BY MOUTH DAILY FOR STOMACH ACID ORAL ACTIVE 05/29/2025 [id number] COLTONCHITO Ladd 2024 180 [facility] [place] [facility] [facility] OMEPRAZOLE 20MG CAP,EC TAKE TWO CAPSULES BY MOUTH DAILY FOR STOMACH ACID ORAL DISCONT INUED 07/21/2024 [id number] 4 CHITO SEGURA Wilberto 2023 180 [facility] [place] [facility] OMEPRAZOLE 20MG CAP,EC TAKE TWO CAPSULES BY MOUTH DAILY FOR STOMACH ACID ORAL DISCONT INUED 02/19/2024 [id number] 4 DAVID MOORE F 2022 180 [facility] [place] OTHER CAP/TAB TAKE BUTALBIT AL BY MOUTH ONCE DAILY NEEDED ORAL ACTIVE CHITO SEGURA 2023 [facility] SAW [place] CAP/TAB TAKE BY MOUTH ORAL ACTIVE CHITO SEGURA 2023 [facility] [place] [facility] SEMAGLUTIDE 1MG/0.75ML INJ,SOLN,PE N,3ML INJECT 1MG SUBCUTAN EOUSLY ONCE A WEEK FOR TYPE 2 DIABETES MELLITUS SUBCUT ANEOUS SUSPEND ED 04/20/2025 [id number] EULALIA FAJARDO 2024 3 [place] SEMAGLUTIDE 1MG/0.75ML INJ,SOLN,PE N,3ML INJECT 1MG SUBCUTAN EOUSLY ONCE A WEEK FOR TYPE 2 DIABETES MELLITUS SUBCUT ANEOUS DISCONT INUED 04/20/2025 [id number] 4 EULALIA FAJARDO 2023 1 [place] SEMAGLUTIDE 1MG/0.75ML INJ,SOLN,PE N,3ML INJECT 1MG SUBCUTAN EOUSLY ONCE A WEEK FOR TYPE 2 DIABETES MELLITUS SUBCUT ANEOUS DISCONT INUED 06/09/2024 [id number] EULALIA FAJARDO 2023 1 [place] SEMAGLUTIDE 1MG/0.75ML INJ,SOLN,PE N,3ML INJECT 1MG SUBCUTAN EOUSLY ONCE A WEEK SUBCUT ANEOUS DISCONT INUED 04/14/2024 [id number] EULALIA FAJARDO BIE 2022 1 [place] SEMAGLUTIDE 2MG/0.75ML INJ,SOLN,PE N,3ML INJECT 2MG SUBCUTAN EOUSLY ONCE A WEEK FOR TYPE 2 DIABETES MELLITUS SUBCUT ANEOUS DISCONT INUED 06/04/2024 [id number] 4 TANAEULALIA BIAyah 2023 1 [place] SPIRONOLACT ONE 25MG TAB TAKE ONE-HALF TABLET BY MOUTH ONCE DAILY ORAL ACTIVE 02/05/2025 [id number] 5 NATHANIEL VERONICA AV 2023 30 [facility] [place] [facility] TADALAFIL 5MG TAB TAKE ONE TABLET BY MOUTH ONCE DAILY FOR BPH ORAL ACTIVE 02/21/2025 [id number] 5 CHITO SEGURA 2023 30 [facility] [place] [facility] [facility] TADALAFIL 5MG TAB TAKE ONE TABLET BY MOUTH ONCE DAILY FOR BPH ORAL DISCONT INUED 07/21/2024 [id number] 4 CHITO SEGURA 2023 30 [facility] [place] [facility] [facility] TADALAFIL 5MG TAB TAKE ONE TABLET BY MOUTH ONCE DAILY FOR BPH ORAL DISCONT INUED 02/07/2024 [id number] 4 DAVID MOORE F 2022 30 [place] TERAZOSIN HCL 10MG CAP TAKE ONE CAPSULE BY MOUTH AT BEDTIME FOR BPH ORAL ACTIVE 05/29/2025 [id number] 5 CHITO SEGURA 2024 90 [facility] [place] [facility] [facility] TERAZOSIN HCL 10MG CAP TAKE ONE CAPSULE BY MOUTH AT BEDTIME FOR BPH ORAL DISCONT INUED 07/21/2024 [id number] 4 CHITO SEGURA 2023 90 [facility] [place] [facility] [facility] TERAZOSIN HCL 10MG CAP TAKE ONE CAPSULE BY MOUTH AT BEDTIME FOR BPH ORAL DISCONT INUED 12/14/2023 [id number] 4 DAVID MOORE F 2022 90 [place] TRIAMCINOLO NE ACETONIDE 0.1% CREAM,TOP APPLY A THIN LAYER TOPICALL Y TWICE DAILY FOR ITCHING TOPICA L 06/09/2024 [id number] 4 CHAVA ROSS F 2023 454 [place] WATER FOR IRRIGATION, STERILE IRRIGATE MODERATE AMOUNT DIRECTED ONCE DAILY FOR C-PAP MACHINE NOT APPLIC ABLE DISCONT INUED 07/26/2023 [id number] 4 SAMI PARRY 2022 [id number] [place] WATER FOR IRRIGATION, STERILE IRRIGATE MODERATE AMOUNT DIRECTED ONCE DAILY FOR C-PAP MACHINE NOT APPLIC ABLE 07/21/2024 [id number] 5 CHITO SEGURA F 2023 [id number] [facility] [place] [facility] Allergies, Adverse Reactions, Alerts Combined list of allergies from Department of Defense and Veterans Affairs facilities. It does not include entries that were removed or entered in error. Substance Category Reaction Severity Reaction type Status Date Reported Comments Source LISINOPRIL Propensity to adverse reactions to drug (finding) active 5 [facility] [place] LOSARTAN Propensity to adverse reactions to drug (finding) Palpitation s active 4 [facility] MELONS Propensity to adverse reactions to food (finding) Dyspnea active 5 [facility] [place] MONOSODIUM GLUTAMATE Propensity to adverse reactions to food (finding) Migraine headaches active 5 [facility] NONSTEROIDAL ANTI-INFLAMM ATORY Propensity to adverse reactions to drug (finding) active 5 [facility] PAXIL Propensity to adverse reactions to drug (finding) AGITATION active 5 [facility] [place] [facility] PHISOHEX Propensity to adverse reactions to drug (finding) Urticaria active 5 [facility] PINEAPPLES Propensity to adverse reactions to food (finding) Urticaria active 5 [facility] POVIDONE IODINE Propensity to adverse reactions to drug (finding) Urticaria active 5 [facility] TAMSULOSIN Propensity to adverse reactions to drug (finding) Tachycardia active 3 [facility] [place] THIMEROSAL Propensity to adverse reactions to drug (finding) CONJUNCTIVA L CONGESTION, Urticaria active 5 [facility] Immunizations Combined list of available immunizations from the Department of Defense and Veterans Affairs facilities. Immunization Series Date Given Administered By Site Reaction Lot Number CVX Code Drug Resolution Expert Status Comments Source INFLUENZA, UNSPECIFIED FORMULATION 2022 88 complet ed [facility] COVID-19 (PFIZER), MRNA, LNP-S, BIVALENT BOOSTER, PF, 30 MCG/0.3 ML DOSE 1 2022 300 complet ed [facility] INFLUENZA, UNSPECIFIED FORMULATION 2021 88 complet ed [facility] COVID-19 (MODERNA), MRNA, LNP-S, PF, 100 MCG/0.5ML DOSE OR 50 MCG/0.25ML DOSE 3 2021 207 complet ed [facility] TD(ADULT) UNSPECIFIED FORMULATION [address] Jamar Atkinson [address], [address] [facility] [place] [facility] [facility] COVID-19 (MODERNA), MRNA, LNP-S, PF, 100 MCG/0.5ML DOSE OR 50 MCG/0.25ML DOSE 3 2020 207 complet ed [facility] INFLUENZA, UNSPECIFIED FORMULATION 2020 88 complet ed [facility] COVID-19 (MODERNA), MRNA, LNP-S, PF, 100 MCG/0.5 ML DOSE 2 2020 207 complet ed MOD; [id number]; 1 [place] COVID-19 (MODERNA), MRNA, LNP-S, PF, 100 MCG/0.5 ML DOSE 1 2020 207 complet ed MOD; [id number]; 1 [place] ZOSTER RECOMBINANT 2 2019 187 complet ed [place] INFLUENZA, UNSPECIFIED FORMULATION 2019 88 complet ed [facility] ZOSTER RECOMBINANT 1 2019 187 complet ed [facility] ZOSTER (SHINGLES) (HISTORICAL) 2014 121 complet ed Proximal Left Arm [place] DTAP, UNSPECIFIED FORMULATION 2010 107 complet ed Site: Left Deltoid [place] TD(ADULT) UNSPECIFIED FORMULATION 2004 RAUL ERAZO 139 complet ed [facility] Results Combined list of recent chemistry, hematology and other laboratory results from Department of Defense and Veterans Affairs, ranging from 15 months to all on record, depending upon the facility. Order Name Results Value Reference Range Date Interpretation Specimen Comments Source BASIC METABOLIC PANEL (fasting) UREA NITROGEN [MASS/VOLUM E] IN SERUM OR PLASMA 25 mg/dL 7 - 25 07/23 Specimen Type: SERUM No comment entered. Ordering Provider: Sebas SEGURA Report Released Date/Time: Jul 23, 2024 08:10 AM Reporting Lab: [facility] [place] [facility] [address] [facility] [address] Performing Lab: [facility] [place] [facility] [address] [facility] [address] [facility] [place] [facility] BASIC METABOLIC PANEL (fasting) GLUCOSE [MASS/VOLUM E] IN SERUM OR PLASMA 154 mg/dL 65 - 100 07/23 H Specimen Type: SERUM No comment entered. Ordering Provider: Sebas SEGURA Report Released Date/Time: Jul 23, 2024 08:10 AM Reporting Lab: [facility] [place] [facility] [address] [facility] [address] Performing Lab: [facility] [place] [facility] [address] [facility] [address] [facility] [place] [facility] BASIC METABOLIC PANEL (fasting) SODIUM [MOLES/VOLU ME] IN SERUM OR PLASMA 134 mmol/L 135 - 145 07/23 L Specimen Type: SERUM No comment entered. Ordering Provider: Sebas SEGURA Report Released Date/Time: Jul 23, 2024 08:10 AM Reporting Lab: [facility] [place] [facility] [address] [facility] [address] Performing Lab: [facility] [place] [facility] [address] [facility] [address] [facility] BASIC METABOLIC PANEL (fasting) POTASSIUM [MOLES/VOLU ME] IN SERUM OR PLASMA 3.3 mmol/L 3.5 - 5.0 07/23 L Specimen Type: SERUM No comment entered. Ordering Provider: Sebas SEGURA Report Released Date/Time: Jul 23, 2024 08:10 AM Reporting Lab: [facility] [place] [facility] [address] [facility] [phone] Performing Lab: [facility] [place] [facility] [address] [facility] [address] [facility] BASIC METABOLIC PANEL (fasting) CHLORIDE [MOLES/VOLU ME] IN SERUM OR PLASMA 96 mmol/L 100 - 110 07/23 L Specimen Type: SERUM No comment entered. Ordering Provider: Sebas SEGURA Report Released Date/Time: Jul 23, 2024 08:10 AM Reporting Lab: [facility] [place] [facility] [address] [facility] [address] Performing Lab: [facility] [place] [facility] [address] [facility] [address] [facility] BASIC METABOLIC PANEL (fasting) CARBON DIOXIDE, TOTAL [MOLES/VOLU ME] IN SERUM OR PLASMA 25 meq/L 20 - 30 07/23 Specimen Type: SERUM No comment entered. Ordering Provider: Sebas SEGURA Report Released Date/Time: Jul 23, 2024 08:10 AM Reporting Lab: [facility] [place] [address] [address] Performing Lab: [facility] [place] [facility] [address] [facility] [address] [facility] [facility] BASIC METABOLIC PANEL (fasting) CALCIUM [MASS/VOLUM E] IN SERUM OR PLASMA 8.6 mg/dL 8.5 - 10.2 07/23 Specimen Type: SERUM No comment entered. Ordering Provider: Sebas SEGURA Report Released Date/Time: Jul 23, 2024 08:10 AM Reporting Lab: [facility] [place] [address] [address] Performing Lab: [facility] [place] [address] [address] [facility] BASIC METABOLIC PANEL (fasting) CREATININE [MASS/VOLUM E] IN SERUM OR PLASMA 1.01 mg/dL 0.50 - 1.40 07/23 Specimen Type: SERUM No comment entered. Ordering Provider: Sebas SEGURA Report Released Date/Time: Jul 23, 2024 08:10 AM Reporting Lab: [facility] [place] [address] [address] Performing Lab: [facility] [place] [address] [address] [facility] [place] [facility] BASIC METABOLIC PANEL (fasting) GLOMERULAR FILTRATION RATE/1.73 SQ M.PREDICTED [VOLUME RATE/AREA] IN SERUM, PLASMA OR BLOOD BY CREATININE- BASED FORMULA (CKD-EPI 2020) 79 mL/min 60 07/23 Specimen Type: SERUM No comment entered. Ordering Provider: Sebas SEGURA Report Released Date/Time: Jul 23, 2024 08:10 AM Reporting Lab: [facility] [place] [address] [address] Performing Lab: [facility] [address] [address] [facility] HEMOGLOBI N A1C PANEL HEMOGLOBIN A1C/HEMOGLO BIN.TOTAL IN BLOOD BY HPLC 6.5 4.0 - 5.6 07/23 H Specimen Type: BLOOD Comment: Values obtained from A1C measurement s can vary. For atypical A1C assays, a reported value of 7.0 could actually be between 6.72 and 7.28 if measured by a reference method. A reported value of 9.0 could actually be between 8.73 and 9.27. Ref: http://www. ngsp.org/[place] Pdata.asp Ordering Provider: Sebas SEGURA Report Released Date/Time: Jul 23, 2024 08:10 AM Reporting Lab: [address] [address] Performing Lab: [address] [address] [facility] LIPID PANEL FASTING CHOLESTEROL [MASS/VOLUM E] IN SERUM OR PLASMA 121 mg/dL 07/23 Specimen Type: SERUM No comment entered. Ordering Provider: Sebas SEGURA Report Released Date/Time: Jul 23, 2024 08:10 AM Reporting Lab: [address] [address] Performing Lab: [address] [address] [facility] LIPID PANEL FASTING TRIGLYCERID E [MASS/VOLUM E] IN SERUM OR PLASMA 169 mg/dL 0 - 150 07/23 H Specimen Type: SERUM No comment entered. Ordering Provider: Sebas SEGURA Report Released Date/Time: Jul 23, 2024 08:10 AM Reporting Lab: [facility] [address] [address] Performing Lab: [address] [address] [facility] LIPID PANEL FASTING CHOLESTEROL IN LDL [MASS/VOLUM E] IN SERUM OR PLASMA BY CALCULATION 58 mg/dL 0 - 129 07/23 Specimen Type: SERUM No comment entered. Ordering Provider: Sebas SEGURA Report Released Date/Time: Jul 23, 2024 08:10 AM Reporting Lab: [facility] [place] [facility] [address] [facility] [address] Performing Lab: [facility] [address] [facility]ITALCHUSE [facility] LIPID PANEL FASTING CHOLESTEROL .TOTAL/CHOL ESTEROL IN HDL [MASS RATIO] IN SERUM OR PLASMA 4.2 07/23 Specimen Type: SERUM No comment entered. Ordering Provider: Sebas SEGURA Report Released Date/Time: Jul 23, 2024 08:10 AM Reporting Lab: [facility]ITALRL TRN [facility] [address] Performing Lab: [facility]ITALRL TRN [facility] [address] [facility]ITALRCHOCTAW GENERAL HOSPITALN [facility] LIPID PANEL FASTING CHOLESTEROL IN HDL [MASS/VOLUM E] IN SERUM OR PLASMA 29 mg/dL 40 - 60 07/23 L Specimen Type: SERUM No comment entered. Ordering Provider: Sebas SEGURA Report Released Date/Time: Jul 23, 2024 08:10 AM Reporting Lab: [facility]RL [facility]N [facility] [address] Performing Lab: [facility] [place] [facility]ITAL[facility] [address] [address] [facility]ITALRL TRN [facility] LIVER FUNCTION PROTEIN [MASS/VOLUM E] IN SERUM OR PLASMA 7.3 g/dL 6.0 - 8.3 07/23 Specimen Type: SERUM No comment entered. Ordering Provider: Sebas SEGURA Report Released Date/Time: Jul 23, 2024 08:10 AM Reporting Lab: [facility] TRN [facility] [address] Performing Lab: [facility] [facility] [address] [facility] [place] [facility] LIVER FUNCTION ALBUMIN [MASS/VOLUM E] IN SERUM OR PLASMA 3.5 g/dL 3.5 - 5.0 07/23 Specimen Type: SERUM No comment entered. Ordering Provider: Sebas SGEURA Report Released Date/Time: Jul 23, 2024 08:10 AM Reporting Lab: [facility] [place] [facility] [address] [facility] [address] Performing Lab: [facility] [place] [facility] [address] [facility] [address] [facility] [place] [facility] LIVER FUNCTION ALKALINE PHOSPHATASE [ENZYMATIC ACTIVITY/VO LUME] IN SERUM OR PLASMA 60 U/L 40 - 150 07/23 Specimen Type: SERUM No comment entered. Ordering Provider: Sebas SEGURA Report Released Date/Time: Jul 23, 2024 08:10 AM Reporting Lab: [facility] [place] [facility] [address] [facility] [address] Performing Lab: [facility] [place] [facility] [address] [facility] [address] [facility] [place] [facility] LIVER FUNCTION ASPARTATE AMINOTRANSF ERASE [ENZYMATIC ACTIVITY/VO LUME] IN SERUM OR PLASMA 23 U/L 5 - 34 07/23 Specimen Type: SERUM No comment entered. Ordering Provider: Sebas SEGURA Report Released Date/Time: Jul 23, 2024 08:10 AM Reporting Lab: [facility] [place] [facility] [address] [facility] [address] Performing Lab: [facility] [place] [facility] [address] [facility] [address] [facility] [place] [facility] LIVER FUNCTION ALANINE AMINOTRANSF ERASE [ENZYMATIC ACTIVITY/VO LUME] IN SERUM OR PLASMA 18 U/L 07/23 Specimen Type: SERUM No comment entered. Ordering Provider: Sebas SEGURA Report Released Date/Time: Jul 23, 2024 08:10 AM Reporting Lab: [facility] [place] [facility] [address] [facility] [address] Performing Lab: [facility] [place] [facility] [address] [facility] [address] [facility] [place] [place] [facility] LIVER FUNCTION BILIRUBIN.T OTAL [MASS/VOLUM E] IN SERUM OR PLASMA 2.1 mg/dL 0.2 - 1.2 07/23 H Specimen Type: SERUM No comment entered. Ordering Provider: Sebas SEGURA Report Released Date/Time: Jul 23, 2024 08:10 AM Reporting Lab: [facility] [place] [facility] [address] [facility] [address] Performing Lab: [facility] [place] [facility] [address] [facility] [address] [facility] [place] [facility] LIVER FUNCTION BILIRUBIN.D IRECT [MASS/VOLUM E] IN SERUM OR PLASMA 0.9 mg/dL 0 - 0.5 07/23 H Specimen Type: SERUM No comment entered. Ordering Provider: Sebas SEGURA F Report Released Date/Time: Jul 23, 2024 08:10 AM Reporting Lab: [facility] [place] [facility] [address] [facility] [address] Performing Lab: [facility] [place] [facility] [address] [facility] [address] [facility] [place] [facility] MICROALBU MIN CREATININ E RATIO PANEL MICROALBUMI N/CREATININ E [MASS RATIO] IN URINE 19.8 mg/g 0 - 29.9 07/23 Specimen Type: URINE No comment entered. Ordering Provider: Sebas SEGURA F Report Released Date/Time: Jul 23, 2024 08:10 AM Reporting Lab: [facility] [place] [facility] [address] [facility] [address] Performing Lab: [facility] [place] [facility] [address] [facility] [address] [facility] [place] [facility] MICROALBU MIN CREATININ E RATIO PANEL MICROALBUMI N [MASS/VOLUM E] IN URINE 1.3 mg/dL 07/23 Specimen Type: URINE No comment entered. Ordering Provider: Sebas SEGURA Report Released Date/Time: Jul 23, 2024 08:10 AM Reporting Lab: [facility] [place] [facility] [address] [facility] [address] Performing Lab: [facility] [place] [facility] [address] [facility] [address] [facility] [place] [facility] MICROALBU MIN CREATININ E RATIO PANEL CREATININE [MASS/VOLUM E] IN URINE 65.62 mg/dL 07/23 Specimen Type: URINE No comment entered. Ordering Provider: Sebas SEGURA Report Released Date/Time: Jul 23, 2024 08:10 AM Reporting Lab: [facility] [place] [place] [address] [address] Performing Lab: [facility] [place] [address] [address] [facility] [place] [place] [facility] VITAMIN B12 COBALAMIN (VITAMIN B12) [MASS/VOLUM E] IN SERUM OR PLASMA >2000p g/mL 200 - 900 07/23 H Specimen Type: SERUM No comment entered. Ordering Provider: Sebas SEGURA Report Released Date/Time: Jul 23, 2024 08:10 AM Reporting Lab: [facility] [place] [address] [address] Performing Lab: [facility] [place] [facility] [address] [facility] [address] [facility] [place] [place] [facility] VITAMIN D (25-OH) 25-HYDROXYV ITAMIN D3 [MASS/VOLUM E] IN SERUM OR PLASMA 37 ng/mL 20 - 50 07/23 Specimen Type: SERUM No comment entered. Ordering Provider: Sebas SEGURA Report Released Date/Time: Jul 23, 2024 08:10 AM Reporting Lab: [facility] [place] [address] [address] Performing Lab: [facility] [place] [address] [address] [facility] [place] [facility] CREATININ E (eGFR 2020) CREATININE [MASS/VOLUM E] IN SERUM OR PLASMA 0.84 mg/dL 0.50 - 1.40 02/26 Specimen Type: SERUM No comment entered. Ordering Provider: Sebas SEGURA Report Released Date/Time: Feb 23, 2024 02:44 PM Reporting Lab: [facility] [place] [facility] [address] [facility] [address] Performing Lab: [facility] [place] [facility] [address] [facility] [address] [facility] [place] [facility] CREATININ E (eGFR 2020) GLOMERULAR FILTRATION RATE/1.73 SQ M.PREDICTED [VOLUME RATE/AREA] IN SERUM, PLASMA OR BLOOD BY CREATININE- BASED FORMULA (CKD-EPI 2020) >90mL/ min 60 02/26 Specimen Type: SERUM No comment entered. Ordering Provider: Sebas SEGURA Report Released Date/Time: Feb 23, 2024 02:44 PM Reporting Lab: [facility] [place] [facility] [address] [facility] [address] Performing Lab: [facility] [place] [place] [facility] [address] [facility] [address] [facility]ITALRL TRN [place] [facility] LIVER FUNCTION PROTEIN [MASS/VOLUM E] IN SERUM OR PLASMA 6.3 g/dL 6.0 - 8.3 02/26 Specimen Type: SERUM No comment entered. Ordering Provider: Sebas SEGURA Report Released Date/Time: Feb 23, 2024 02:44 PM Reporting Lab: [facility] [place] [facility] [address] [facility] [address] Performing Lab: [facility] [place] [facility] [address] [facility] [address] [facility] [place] [facility] LIVER FUNCTION ALBUMIN [MASS/VOLUM E] IN SERUM OR PLASMA 3.5 g/dL 3.5 - 5.0 02/26 Specimen Type: SERUM No comment entered. Ordering Provider: Sebas SEGURA Report Released Date/Time: Feb 23, 2024 02:44 PM Reporting Lab: [facility] [place] [facility] [address] [facility] [address] Performing Lab: [facility] [place] [facility] [address] [facility] [address] [facility] [place] [place] [facility] LIVER FUNCTION ALKALINE PHOSPHATASE [ENZYMATIC ACTIVITY/VO LUME] IN SERUM OR PLASMA 45 U/L 40 - 150 02/26 Specimen Type: SERUM No comment entered. Ordering Provider: Sebas SEGURA Report Released Date/Time: Feb 23, 2024 02:44 PM Reporting Lab: [facility] [place] [facility] [address] [facility] [address] Performing Lab: [facility] [place] [facility] [address] [facility] [address] [facility] [place] [place] [facility] LIVER FUNCTION ASPARTATE AMINOTRANSF ERASE [ENZYMATIC ACTIVITY/VO LUME] IN SERUM OR PLASMA 19 U/L 5 - 34 02/26 Specimen Type: SERUM No comment entered. Ordering Provider: Sebas SEGURA Report Released Date/Time: Feb 23, 2024 02:44 PM Reporting Lab: [facility] [place] [facility] [address] [facility] [address] Performing Lab: [facility] [place] [facility] [address] [facility] [address] [facility] [place] [facility] LIVER FUNCTION ALANINE AMINOTRANSF ERASE [ENZYMATIC ACTIVITY/VO LUME] IN SERUM OR PLASMA 23 U/L 02/26 Specimen Type: SERUM No comment entered. Ordering Provider: Sebas SEGURA Report Released Date/Time: Feb 23, 2024 02:44 PM Reporting Lab: [facility] [place] [facility] [address] [facility] [address] Performing Lab: [facility] [place] [facility] [address] [facility] [address] [facility] [place] [facility] LIVER FUNCTION BILIRUBIN.T OTAL [MASS/VOLUM E] IN SERUM OR PLASMA 0.6 mg/dL 0.2 - 1.2 02/26 Specimen Type: SERUM No comment entered. Ordering Provider: Sebas SEGURA Report Released Date/Time: Feb 23, 2024 02:44 PM Reporting Lab: [facility] [place] [facility] [address] [facility] [address] Performing Lab: [facility] [place] [facility] [address] [facility] [address] [facility] [place] [facility] PT & INR (COUMADIN ) INR IN PLATELET POOR PLASMA BY COAGULATION ASSAY 1.4 02/26 Specimen Type: PLASMA No comment entered. Ordering Provider: Sebas SEGURA Report Released Date/Time: Feb 23, 2024 02:44 PM Reporting Lab: [facility] [place] [facility] [address] [facility] [address] Performing Lab: [facility] [place] [facility] [address] [facility] [address] [facility] [place] [facility] PT & INR (COUMADIN ) PROTHROMBIN TIME (PT) 15.4 s 10.0 - 13.1 02/26 H Specimen Type: PLASMA No comment entered. Ordering Provider: Sebas SEGURA Report Released Date/Time: Feb 23, 2024 02:44 PM Reporting Lab: [facility] [place] [facility] [address] [facility] [address] Performing Lab: [facility] [place] [place] [address] [address] [facility] [place] [facility] Vital Signs Combined list of inpatient and outpatient Vital Signs from Department of Defense and Veterans Affairs, ranging from 12 months to all on record, depending upon the facility. Vital Sign Value Date Comments Source SYSTOLIC BLOOD PRESSURE 120 07/31/19 25 08:01:22 [facility] [place] [facility] DIASTOLIC BLOOD PRESSURE 76 025 08:01:22 [facility] [place] [facility] PULSE OXIMETRY 98 07/30/2024 08:01:22 [facility] [place] [facility] WEIGHT 199 07/30/2024 08:01:22 [facility] [place] [facility] BMI 29 kg/m2 07/30/2024 08:01:22 [facility] [place] [facility] PAIN 8 07/30/2024 08:01:22 [facility] [place] [facility] TEMPERATURE 98.3 07/30/2024 08:01:22 [facility] [place] [facility] PULSE 71 07/30/2024 08[facility]01:22 [facility] [place] [facility] RESPIRATION 16 07/30/2024 08:01:22 [facility] [place] [facility] SYSTOLIC BLOOD PRESSURE 120 05/28/19 25 08:42:15 [facility] [place] [facility] DIASTOLIC BLOOD PRESSURE 70 025 08:42:15 [facility] [place] [facility] PULSE OXIMETRY 95 05/28/2024 08:42:15 [facility] [place] [facility] WEIGHT 198 05/28/2024 08:42:15 [facility] [place] [facility] BMI 28 kg/m2 05/28/2024 08:42:15 [facility] [place] [facility] PAIN 0 05/28/2024 08:42:15 [facility] [place] [facility] TEMPERATURE 98 05/28/2024 08:42:15 [facility] [place] [facility] PULSE 74 05/28/2024 08:42:15 [facility] [place] [facility] RESPIRATION 16 05/28/2024 08:42:15 [facility] [place] [facility] WEIGHT 196 04/06/2024 08:58:05 [place] BMI 28 kg/m2 04/06/2024 08:58:05 [place] SYSTOLIC BLOOD PRESSURE 130 01/22/20 24 13:00:32 [facility] [place] [facility] DIASTOLIC BLOOD PRESSURE 80 024 13:00:32 [facility] [place] [facility] PULSE OXIMETRY 96 01/22/2024 13:00:32 [facility] [place] [facility] WEIGHT 220 01/22/2024 13:00:32 [facility] [place] [facility] BMI 32 kg/m2 01/22/2024 13:00:32 [facility] [place] [facility] PAIN 3 01/22/2024 13:00:32 [facility] [place] [facility] TEMPERATURE 98.7 01/22/2024 13:00:32 [facility] [place] [facility] PULSE 56 01/22/2024 13:00:32 [facility] [place] [facility] RESPIRATION 16 01/22/2024 13:00:32 [facility] [place] [facility] SYSTOLIC BLOOD PRESSURE 145 11/18/19 24 11:14:02 [facility] [place] [facility] DIASTOLIC BLOOD PRESSURE 90 024 11:14:02 [facility] [place] [facility] PULSE OXIMETRY 96 11/18/2023 11:14:02 [facility] [place] [facility] PULSE 69 11/18/2023 11:14:02 [facility] [place] [facility] Encounters Combined list of: 1) Encounters from Department of Veterans Affairs facilities going backup to the last 18 months, not all VA inpatient encounters are included; 2) Encounters from the Department of Defense facilities going backup to 280 months. Location Location Details Encounter Type Encounter Number Reason For Visit Attending Provider ADM Date DC Date Status Disposition Source [facility] En[facility] [id number] 02[facility]17 [facility] [id number] 02/17 [facility] En[facility] [id number] 02/27 [facility] [place] MT[place] BY PHARM ADDL 15 MIN [id number] Diagnos is: ICD-10- CM E11.8 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 TANA,KHUSHI IE 03/04 [place] [facility] (89GE) QNHP OL DIG ASSMT&MGMT 5-10 [id number] Diagnos is: ICD-10- CM E11.8 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 ERICH,CHR ISTINE F 03/05 [facility] (631GE) ANGELLA RAMIREZ COLLJ & INTERPJ DATA EA 30 D [id number] Diagnos is: ICD-10- CM G47.30 Sleep apnea, unspeci fied STEVE CURRY A 03/10 [facility] [place] [facility] Outpatient Encounter [id number] 03/13 [facility] EYE EXAM&TX ESTAB PT 1/>VST [id number] Diagnos is: ICD-10- CM E11.9 Type 2 diabete s mellitu s without complic ations TAVIA RONDON 03/13 [facility] Outpatient Encounter [id number] 03/13 [facility] FIT SPECTACLES BIFOCAL [id number] Diagnos is: ICD-10- CM Z46.0 Encount er for fit/adj st of spectac les and contact lenses DIPESH TERRAZAS 03/13 [facility] Outpatient Encounter [id number] 03/31 [facility] [place] REPAIR & ADJUST SPECTACLES [id number] Diagnos is: ICD-10- CM Z46.0 Encount er for fit/adj st of spectac les and contact lenses SUMIBARTOLOME MIKE DANIELS 03/31 [facility] CASE MGMT-ORAL HEALTH LIT [id number] Diagnos is: ICD-10- CM K03.6 Deposit s [accret ions] on teeth MONOTHUAN JEREL K 04/01 [facility] [place] [facility] [place] OFFICE O/P EST LOW 20-29 MIN [id number] Diagnos is: ICD-10- CM L60.3 Nail dystrop hy CHAVA ROSSStewart MORALES F 04/07 [place] [facility] MTMS BY PHARM ADDL 15 MIN [id number] Diagnos is: ICD-10- CM E11.8 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 TANA,KHUSHI IE 04/14 [place] [facility] Outpatient Encounter [id number] Stewart SANDERS 04/15 [facility] OFFICE O/P EST LOW 20-29 MIN [id number] Diagnos is: ICD-10- CM G47.30 Sleep apnea, unspeci fied CHITO SEGURA F 04/28 [facility] En[facility] [id number] 05/01 [facility] Encounter [id number] 05/14 [facility] THERAPEUTI C EXERCISES [id number] Diagnos is: ICD-10- CM M25.312 Other instabi estellay, left DENNIS Oliveira E 05/27 [facility] RPR&REFITG SPECT XCP APHAKIA [id number] Diagnos is: ICD-10- CM Z46.0 Encount er for fit/adj st of spectac les and contact lenses DIPESH TERRAZAS 05/30 [facility] Out[facility] Encounter [id number] 05/30 [facility] Encounter [id number] Stewart SANDERS 05/30 [facility] THERAPEUTI C EXERCISES [id number] Diagnos is: ICD-10- CM M25.312 Other instabi lity, DENNIS Salazar E 06/03 [facility] [place] 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 15 MIN [id number] Diagnos is: ICD-10- CM E11.8 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 KHUSHI FAJARDO IE 06/04 [place] [facility] Out[facility] Encounter [id number] 06/04 [facility] Encounter [id number] 06/06 [facility] [place] OFFICE O/P EST LOW 20 MIN [id number] Diagnos is: ICD-10- CM L60.3 Nail dystrop hy CODY,CHARL ES F 06/09 [place] [facility] BY PHARM ADDL 15 MIN [id number] Diagnos is: ICD-10- CM E11.8 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 TANA,KHUSHI IE 06/09 [place] [facility] Out[facility] Encounter [id number] Stewart SANDERS 06/09 [facility] Encounter [id number] 06/09 [facility] THERAPEUTI C EXERCISES [id number] Diagnos is: ICD-10- CM M25.312 Other instabi lity, left shoulde r DENNIS PIKE LIE E 06/09 [facility] THERAPEUTI C EXERCISES [id number] Diagnos is: ICD-10- CM M25.312 Other instabi lity, left shoulde april DENNIS PIKE LIE E 06/16 [facility] En[facility] [id number] 06/17 [facility] THERAPEUTI C EXERCISES [id number] Diagnos is: ICD-10- CM M25.312 Other instabi lity, left shoulde r DENNIS PIKE LIE E 06/23 [facility] SELF-MGMT EDUC & TRAIN 1 [place] [id number] Diagnos is: ICD-10- CM G47.30 Sleep apnea, unspeci fied JARMOLOWLIBORIO WAYNE McintyreSY 06/23 [facility] Outpatient [facility]counter [id number] Stewart SANDERS 06/23 [facility] Outpatient Encounter [id number] HEATHER WITT 07/03 [facility] THERAPEUTI C EXERCISES [id number] [id number] Diagnos is: ICD-10- CM M25.312 Other instabi lity, left shoulde r MACHBAIRON,EDNNIS LIE E 07/04 [facility] THERAPEUTI C EXERCISES [id number] [id number] Diagnos is: ICD-10- CM M25.312 Other instabi lity, left shoulde r MACHON,DENNIS LIE E 07/08 [facility] Outpatient Encounter [id number] Stewart SANDERS 07/14 [facility] THERAPEUTI C EXERCISES [id number] [id number] Diagnos is: ICD-10- CM M25.312 Other instabi lity, left shoulde r MACHON,DENNIS LIE E [facility] POS AIRWAY PRESSURE FILTER 06577-3.63 [id number] Diagnos is: ICD-10- CM G47.30 Sleep apnea, unspeci fied ST AMANT,FLORI E P [facility] OFFICE O/P EST LOW 20 MIN [id number] [id number] Diagnos is: ICD-10- CM G47.30 Sleep apnea, unspeci fied CHITO SEGURA F 07/20 [facility] THERAPEUTI C EXERCISES 91104-2.63 [id number] Diagnos is: ICD-10- CM M25.312 Other instabi lity, left shoulde r MACHBAIRON,DENNIS LIE E 07/23 [facility] THERAPEUTI C EXERCISES 49748-5.63 [id number] Diagnos is: ICD-10- CM M25.312 Other instabi lity, left shoulde r MACHBAIRON,DENNIS LIE E 07/30 [facility] [place] OFFICE O/P EST LOW 20 MIN 97236-6.63 [id number] Diagnos is: ICD-10- CM L60.3 Nail dystrop hy MORIS ROSS ES F 08/03 [facility] ADDL 15 MIN 89687-5.63 [id number] 85 Diagnos is: ICD-10- CM E11.8 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 KHUSHI FAJARDO IE 08/03 [place] [facility] THERAPEUTI C EXERCISES 55331-5.63 [id number] Diagnos is: ICD-10- CM M25.312 Other instabi lity, left shoulde r MACHBAIRON,DENNIS LIE E 08/05 [facility] Outpatient Encounter [id number] JAIR CAM ICA L 08/12 [facility] THERAPEUTI C EXERCISES 57474-9.63 [id number] Diagnos is: ICD-10- CM M25.312 Other instabi lity, left shoulde Ayah Rajan OFELIA 08/19 [facility] THERAPEUTI C EXERCISES 29563-5.63 [id number] Diagnos is: ICD-10- CM M25.312 Other instabi lity, left shoulde april PIKE,DENNIS LIE E 08/25 [facility] THERAPEUTI C EXERCISES 80655-5.63 [id number] Diagnos is: ICD-10- CM M25.312 Other instabi lity, left shoulde april PIKE,DENNIS LIE E 08/31 [facility] DIABETIC CUSTOM MOLDED SHOE 39218-1.63 [id number] 69 Diagnos is: ICD-10- CM E11.9 Type 2 diabete s mellitu s without complic ations HEATHER WITT 09/08 [place] [facility] Outpatient Encounter [id number] 09/08 [facility] THERAPEUTI C EXERCISES 74176-0.63 [id number] Diagnos is: ICD-10- CM M25.312 Other instabi lity, left shoulde april PIKE,DENNIS LIE E 09/14 [facility] THERAPEUTI C EXERCISES [id number] [id number] Diagnos is: ICD-10- CM M25.312 Other instabi lity, left shoulde april PIKE,DENNIS LIE E 09/21 [facility] OFFICE O/P EST LOW 20 MIN 05661-0.63 [id number].[id number] 95 Diagnos is: ICD-10- CM L60.3 Nail dystrop hy CODY,CHARL ES F 09/28 [place] MTMS BY PHARM ADDL 15 MIN 28666-7.63 [id number] Diagnos is: ICD-10- CM E11.8 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 TANA,KHUSHI IE 09/28 [place] [facility] KRISTOPHER MDLTY 1+ULTRASOU ND EA 15 62534-3.63 [id number] Diagnos is: ICD-10- CM M25.312 Other instabi lity, left shoulde r MACHBAIRON,DENNIS LIE E 09/30 [facility] THERAPEUTI C EXERCISES 93014-5.63 [id number] Diagnos is: ICD-10- CM M25.312 Other instabi lity, left shoulde r MACHBAIRON,DENNIS LIE E 10/06 [facility] THERAPEUTI C EXERCISES 50901-1.63 [id number] Diagnos is: ICD-10- CM M25.312 Other instabi lity, left shoulde r MACHBAIRON,DENNIS LIE E 10/15 [facility] THERAPEUTI C EXERCISES 90609-0.63 [id number] Diagnos is: ICD-10- CM M25.312 Other instabi lity, left shoulde r MACHON,DENNIS LIE E 11/02 [facility] [place] DIABETIC CUSTOM MOLDED SHOE 70322-0.63 [id number] 30 Diagnos is: ICD-10- CM E11.9 Type 2 diabete s mellitu s without complic ations HEATHER WITT 11/05 [place] [facility] THERAPEUTI C EXERCISES 24440-4.63 [id number] Diagnos is: ICD-10- CM M25.312 Other instabi lity, left shoulde r MACHBAIRON,DENNIS LIE E 11/09 [facility] Outpatient Encounter [id number] [id number] HEATHER WITT L 11/09 [facility] POS AIRWAY PRESSURE CPAP [id number] [id number] Diagnos is: ICD-10- CM G47.30 Sleep apnea, unspeci fied STEVE CURRY N A 11/09 [facility] Outpatient Encounter [id number] [id number] [facility] INTRAORAL PERIAPICAL FIRST 07410-663 [id number] Diagnos is: ICD-10- CM K03.81 Cracked tooth LUNA SEXTON AM 11/17 [facility] REPL WATER CHAMBER, PAP DEV 43270-5.63 [id number] Diagnos is: ICD-10- CM G47.30 Sleep apnea, unspeci fied ST AMFLORI HANCOCK E P 11/23 [facility] Outpatient Encounter [id number] 11[facility]25 [facility] ORAL HYGIENE INSTRUCTIO N [id number] [id number] Diagnos is: ICD-10- CM K03.6 Deposit s [accret ions] on teeth THUAN VILLAREAL K 11/26 [facility] DENTAL BITEWING FOUR IMAGES [id number] [id number] Diagnos is: ICD-10- CM K03.6 Deposit s [accret ions] on teeth VIKI KELLEY 11/26 [facility] Outpatient Encounter [id number] [id number] 11/30 [facility] OFFICE O/P EST LOW 20 MIN [id number] [id number] Diagnos is: ICD-10- CM L60.3 Nail dystrop hy MORIS ROSS ES F 11/30 [place] [facility] Outpatient Encounter [id number] 12/29 [facility] Outpatient Encounter [id number] [id number] [facility] Outpatient Encounter [id number] [id number] Diagnos is: ICD-10- CM G47.33 Obstruc tive sleep apnea (adult) (pediat kat) KIARRA MELENDEZ 01/01 [facility] Outpatient Encounter [id number] [id number] 01/04 [facility] POS AIRWAY PRESSURE CPAP [id number] [id number] Diagnos is: ICD-10- CM G47.30 Sleep apnea, unspeci fied ST AMSANTI,FLORI E P 01/04 [facility] Outpatient Encounter [id number] 01[facility]11 [facility] Outpatient Encounter [id number] [id number] Stewart SANDERS 01/15 [facility] OFFICE O/P EST LOW 20 MIN [id number] [id number] Diagnos is: ICD-10- CM R00.2 PalpCHITO Roberts 01/21 [facility] Out[facility] Encounter [id number] [id number] 01/22 [facility] COLLJ & INTERPJ DATA EA 30 D 15503-5.63 [id number] Diagnos is: ICD-10- CM G47.30 Sleep apnea, unspeci finano STEVE CURRY 01/27 [facility] Out[facility] Encounter [id number] 01/31 [facility] Out[facility] Encounter [id number] [id number] 02/02 [facility] Out[facility] Encounter [id number] 1.02/03 [facility] Out[facility] Encounter [id number] [id number]/03 [facility] Out[facility] Encounter [id number] [id number] Stewart SANDERS 02/10 [facility] Out[facility] Encounter [id number] 02/11 [facility] Out[facility] Encounter [id number] [id number] Stewart SANDERS 02/11 [facility] Out[facility] Encounter [id number] [id number] 02/11 [facility] OFFICE O/P EST LOW 20 MIN [id number] 1BY.[id number] 11 Diagnos is: ICD-10- CM L60.3 Nail dystrop hy ROSS,CHARL ES F 02/15 [place] [facility] Out[facility] Encounter [id number] [id number] 02/15 [facility] RESIN THREE SURFACES-A NTERIO [id number] [id number] Diagnos is: ICD-10- CM K03.6 Deposit s [accret ions] on teeth ISA KELLEYRE 02/16 [facility] Encounter [id number] 02/18 [facility] Out[facility] Encounter [id number] [id number] 02/18 [facility] Out[facility] Encounter [id number] [id number] JAMIL FLORES ISTOPHER E 02/19 [facility] (6[facility]GE) 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 15 MIN 23109-2.63 [id number] Diagnos is: ICD-10- CM Z51.81 Encount er for therape utic drug level monitor JAMIL Patterson ISTINE F 02/26 [facility] (6[facility] Out[facility] Encounter [id number] 1.03/042024 [facility] Out[facility] Encounter [id number] MOEStewart HERNANDEZDmitry Peter 03/09 [facility] BRIEF ASSESSMENT [id number] [id number] Diagnos is: ICD-10- CM K03.81 Cracked tooth HOVIKI WINTER 03/16 [facility] Out[facility] Encounter [id number] 03/23 [facility] FIT SPECTACLES BIFOCAL [id number] [id number] Diagnos is: ICD-10- CM Z46.0 Encount er for fit/adj st of spectac les and contact lenses ALCONTAVIA 03/30 [facility] COMPRE OPH EXAM EST PT 1/> [id number] [id number] Diagnos is: ICD-10- CM E11.9 Type 2 diabete s mellitu s without complic ations TAVIA RONDON 03/30 [facility] Out[facility] Encounter [id number] 03/30 [facility] Out[facility] Encounter [id number] [id number] BARTOLOME JONAS 03/30 [facility] Out[facility] Encounter [id number] [id number] BARTOLOME JONAS 03/30 [facility] Out[facility] Encounter [id number] 1. [facility] ISTOPHER E 04/02 [facility] [place] MTMS BY PHARM ADDL 15 MIN 04306-6.63 1BY. 71 Diagnos is: ICD-10- CM E11.8 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 TANA,KHUSHI IE 04/06 [place] [facility] Outpatient Encounter [id number] 04/08 [facility] Outpatient Encounter [id number] 1. [facility] ISTOPHER E 04/09 [facility] [place] OFFICE O/P EST LOW 20 MIN [id number] [id number] Diagnos is: ICD-10- CM L60.3 Nail dystrop hy ROSS,CHARL ES F 04/12 [place] [facility] RPR&REFITG SPECT XCP APHAKIA 30179-6.63 1. 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 [facility] ISTOPHER E 04/12 [facility] Outpatient Encounter [id number] [facility] Out[facility] Encounter [id number] [id number] 04/19 [facility] QNHP OL DIG ASSMT&MGMT 5-10 84790-8.63 1GF. 00 Diagnos is: ICD-10- CM E11.8 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 BRIAN RANGEL J 04/19 [facility] Out[facility] Encounter [id number] Stewart SANDERS 04/23 [facility] Out[facility] Encounter [id number] 04/30 [facility] Out[facility] Encounter [id number] Stewart SANDERS 05/03 [facility] Out[facility] Encounter [id number] 05/10 [facility] Out[facility] Encounter [id number] [id number] [facility] ISTOPHER E 05/10 [facility] Out[facility] Encounter [id number] Stewart SANDERS 05/10 [facility] Out[facility] Encounter [id number] [facility] ISTOPHER E 05/10 [facility] Out[facility]counter [id number] [id number] 05/12 [facility] Out[facility] Encounter [id number] [id number] MOEDAVIDStewart 05/14 [facility] Out[facility] Encounter [id number] [id number] JAMIL FLORES ISTOPHER E 05/17 [facility] Out[facility] Encounter [id number] 05/17 [facility] Out[facility] Encounter [id number] 05/17 [facility] Out[facility] Encounter [id number] [id number] 05/21 [facility] Out[facility] Encounter [id number] [id number]/24 [facility] OFFICE O/P EST LOW 20 MIN [id number] [id number] Diagnos is: ICD-10- CM I48.91 Unspeci fied atrial fibrill ation RADHACHITO SEGURA Wilberto 05/28 [facility] Out[facility] Encounter [id number] [id number]/31 [facility] [place] 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 15 MIN 92719-2.63 1BY. Diagnos is: ICD-10- CM E11.8 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 KHUSHI FAJARDO IE 05/31 [facility] [place] [facility] ORAL HYGIENE INSTRUCTIO N [id number] [id number] Diagnos is: ICD-10- CM K03.6 Deposit s [accret ions] on teeth THUAN VILLAREAL 06/01 [facility] [place] [place] [facility] [place] Outpatient Encounter [id number] 06/25 [facility] [place] [place] [facility] OFFICE O/P EST LOW 20 MIN [id number] [id number] Diagnos is: ICD-10- CM L60.3 Nail dystrop hy MORIS ROSS F 06/28 [facility] [place] [facility] [place] Outpatient Encounter [id number] Stewart SANDERS 06/28 [facility] [place] [place] [facility] [place] Outpatient Encounter [id number] Stewart SANDERS 06/28 [facility] [place] [place] [facility] [place] Outpatient Encounter [id number] HEATHER WITT 07/06 [facility] [place] [place] [place] Outpatient Encounter [id number] 07/07 [facility] [place] [place] [place] Outpatient Encounter [id number] 07/15 [facility] [place] [place] [place] OFFICE O/P EST LOW 20 MIN [id number] Diagnos is: ICD-10- CM I48.91 Unspeci fied atrial fibrill atCHITO Stubbs 07/30 [facility] [place] [place] [place] [facility] Outpatient Encounter [id number] 08/16 [facility] [place] [facility] Social History Combined list of available smoking, tobacco, and other social history from Department of Defense and Veterans Affairs facilities. Social History Type Response Date Comment Source Tobacco smoking status NHIS MT-TOBACCO NEVER USED OTHER TYPE 07/30/2024 [facility] [place] [facility] History of tobacco use MT-TOBACCO USE FORMER CIGARETTES 07/30/2024 [facility] [place] [facility] History of tobacco use MT-TOBACCO FORMER USER 07/21/2023 [facility] [place] [facility] History of tobacco use MT-TOBACCO FORMER USER 07/22/2022 [place] History of tobacco use MT-TOBACCO FORMER USER 03/28/2021 [facility] [employer] [place] [facility] of [facility]/2019 [facility] [place] [facility] of [facility] OR MORE 12/02/2018 [facility] History of tobacco use MT-TOBACCO FORMER USER 04/20/2018 [place] History of tobacco use QUIT TOBACCO USE > 7 YEARS AGO 12/16/2016 [facility] History of tobacco use QUIT TOBACCO USE > 7 YEARS AGO 07/17/2015 quit many yrs ago [facility] History of tobacco use QUIT TOBACCO USE > 7 YEARS AGO 08/04/2009 quit over ten years ago [facility] History of tobacco use QUIT TOBACCO USE 1-7 YEARS AGO 12/03/2007 [facility] History of tobacco use QUIT TOBACCO USE 1-7 YEARS AGO 05/21/2007 [facility] History of tobacco use QUIT TOBACCO USE IN PAST YEAR 04/23/2005 [facility] [place] [facility] History of tobacco use CURRENT SMOKER 07/25/2004 Smokes about 10 cigarettes/day, and trying to quit on his own [facility] History of tobacco use LIFETIME NON-TOBACCO USER 04/27/2004 [place] History of tobacco use PREVIOUS SMOKER 10/05/1999 [place] Plan of Care List of future care [facility]. Additional future care activities may be listed in the Assessment and Plan section. Date/Time Care Activity Care Activity Detail Facili ty 08/23/2024 AMBULATORY - MEDICINE AMBULATORY - MEDICI [facility] Advance Directives List of completed, amended, or rescinded Advance Directives on record at [facility] facilities. An actual copy of the Directive is not included. Date Advance Directive Provider Source 12/16/2011 ADVANCE DIRECTIVE DISCUSSION MARGAR[facility]
--- OUTSIDE RECORDS SUMMARY | 2024-08-18 16:31 | XMS_ITS | Encounter Summary ---
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 Organization [facility] Address [address] [place] [id number] Care Team Providers [employer] Name Role Phone CHITO MEDRANO Primary Care [...] PART A Feb 16, 2018 PART A [id number] YENNY OVIEDO PATIENT MEDICARE (WNR) MEDICARE (M) PART B Feb 16, 2018 PART B [id number] YENNY OVIEDO ES PATIENT MEDICARE (WNR) MEDICARE (M) PART A Oct 17, 2006 PART A [id number] [facility] YENNY OVIEDO PATIENT FOR LIFE TFL* Apr 06, 2018 [id number] YENNY OVIEDO PATIENT Selected Encounter This section includes the information on record at [place] for the Encounter. Date/Time Encounter Type Encounter Description Reason Pro vider Source Aug 16, 2024 03:00 PM Outpatient Encounter COMMUNITY CARE CONSULT IHE Encounter Template Text not used by [place] Plan of Treatment: Future Appointments (+ 6 months) and Future Tests (+/- 45 days) The Plan of Treatment section includes [facility] care [facility] the [facility] This section includes future [...] - MEDICINE [facility] October 08, 2024 09:00 AM [facility] Nov 01, 2024 08:00 AM [facility] Nov 05, 2024 08:00 AM AMBULATORY - MEDICINE [facility] Jan 04, 2025 07:30 AM AMBULATORY - NONE [facility] Active, Pending, and Scheduled Orders This section [...] Consult Order COMMUNITY CARE-MAMMOGRAPHY MALE DIAGNOSTIC Cons Label Maker's Choice [facility] Aug 23, 2024 12:00 AM Laboratory - Chemistry Order CBC AND DIFF (AUTO) BLOOD (LAV-BLOOD) SP [facility] Aug 23, 2024 12:00 AM Laboratory - Chemistry Order BASIC METABOLIC PANEL (fasting) BLOOD (SST-SERUM) SP [facility] Aug 25, 2024 12:00 AM Imaging - Ultrasou nd Order ULTRASOUND NECK (THYROID,HEAD,SOFT TISSUE) [facility] Lab Results: +/- 30 days of the encounter This section includes the Chemistry and Hematology Lab Results on record with [place] for the patient. Radiology Reports and Pathology Reports are provided separately, in subsequent sections. Lab Results This section contains the Chemistry/Hematology Results that were resulted 30 days before or 30 daysafter the date of the Encounter. Date/Time Source Result Type Result - Unit Interpretation Reference Range Comment Jul 23, 2024 09:42 AM [facility] HEMOGLOBIN A1C PANEL Specimen Type: BLOOD Comment: [...] Jul 23, 2024 08:10 AM Reporting Lab: [address] [address] Performing Lab: [address] [address] HEMOGLOBIN A1C 6.5 H 4.0-5.6 Jul 23, 2024 09:42 AM [facility] VITAMIN B12 Specimen Type: SERUM No comment entered. Ordering Provider: AYUSH MEDRANO F Report Released Date/Time: Jul 23, 2024 08:10 AM Reporting Lab: [address] [address] Performing Lab: [address] [address] VITAMIN B12 >2000 pg/mL H 200-900 Jul 23, 2024 09:42 AM [facility] MICROALBUMIN CREATININE RATIO PANEL Specimen Type: URINE No comment entered. Ordering Provider: AYUSH MEDRANO F Report Released Date/Time: Jul 23, 2024 08:10 AM Reporting Lab: [address] [address] [facility] [address] MICROALBUMIN/C REATININE RATIO 19.8 mg/g 0-29.9 MICROALBUMIN,Q UANTITATIVE 1.3 mg/dL RR UNAVAIL CREATININE URINE 65.62 mg/dL Jul 23, 2024 09:42 AM [facility] LIPID PANEL FASTING Specimen Type: SERUM No comment entered. Ordering Provider: AYUSH MEDRANO F Report Released Date/Time: Jul 23, 2024 08:10 AM Reporting Lab: [facility] [address] [facility] [address] Performing Lab: [facility] [address] [facility] [address] CHOLESTEROL 121 mg/dL TRIGLYCERIDE 169 mg/dL H 0-150 LDL calculated 58 mg/dL 0-129 CHOL/HDL 4.2 HDL CHOLESTEROL 29 mg/dL L 40-60 Jul 23, 2024 09:42 AM [facility] BASIC METABOLIC PANEL (fasting) Specimen Type: SERUM No comment entered. Ordering Provider: AYUSH MEDRANO F Report Released Date/Time: Jul 23, 2024 08:10 AM Reporting Lab: [facility] [address] [facility] [address] Performing Lab: [facility] [address] [facility] [address] UREA NITROGEN 25 mg/dL 7-25 GLUCOSE 154 mg/dL H 65-100 SODIUM 134 mmol/L L 135-145 POTASSIUM 3.3 mmol/L L 3.5-5.0 CHLORIDE 96 mmol/L L 100-110 CO2 25 meq/L 20-30 CALCIUM 8.6 mg/dL 8.5-10.2 CREATININE, Serum 1.01 mg/dL 0.50-1.40 eGFR(CKD-EPI 2020) 79 mL/min >60 Jul 23, 2024 09:42 AM [facility] LIVER FUNCTION Specimen Type: SERUM No comment entered. Ordering Provider: AYUSH MEDRANO F Report Released Date/Time: Jul 23, 2024 08:10 AM Reporting Lab: [facility] [address] [facility] [address] Performing Lab: [address] [address] PROTEIN,TOTAL 7.3 g/dL 6.0-8.3 ALBUMIN 3.5 g/dL 3.5-5.0 ALKALINE PHOSPHATASE 60 U/L 40-150 AST 23 U/L 5-34 ALT 18 U/L BILIRUBIN, TOTAL 2.1 mg/dL H 0.2-1.2 BILIRUBIN, DIRECT 0.9 mg/dL H 0-0.5 Jul 23, 2024 09:42 AM [facility] VITAMIN D (25-OH) Specimen Type: SERUM No comment entered. Ordering Provider: AYUSH MEDRANO Report Released Date/Time: Jul 23, 2024 08:10 AM Reporting Lab: [address] [address] Performing Lab: [address] [address] VITAMIN D (25-OH) 37 ng/mL 20-50 Social [...] 08:00 AM VA-TOBACCO USE FOR NICOLE CIGARETTES [facility] Tobacco Use History This section includes a history of the smoking, or tobacco-related health factors, that were collected on or before the date of the Encounter. The data comes from the [place] facility where the Encounter took place. Date/Time Smoking Status/Tobacco Use Comment F yusef Jul 30, 2024 08:00 AM VA-TOBACCO [facility] C[facility]ETTES [facility] [place] [facility] Jul 21, 2023 01:30 PM [facility] [place] [facility] Jul 21, 2023 01:30 PM VA-TOBACCO QUIT [facility] Mar 28, 2021 03:28 PM [facility] Mar 28, 2021 03:28 PM VA-TOBACCO [facility]IT [facility] Dec 02, 2019 09:36 AM VA-TOBACCO NEVER [facility]ED [facility] Apr 23, 2005 10:19 AM QUIT TOBACCO USE IN PAST YEAR [facility] Advance Directives: All historical and current Section [...] 16, 2011 ADVANCE DIRECTIVE DISCUSSION MARGARITA TERRAZAS CARNEGIE Encounter Notes: All associated encounter notes This section contains the clinical notes associated to the Encounter. Date/Time Encounter Note(s) Provider Source Aug 16, 2024 03:00 PM NONVA NOTE: LOCAL TITLE: COMMUNITY CARE-FIOR SELF PRESENTING CARE COORD PLAN STANDARD TITLE: NONVA NOTE DATE OF NOTE: AUG 16, 2024@15:00 ENTRY DATE: AUG 16, 2024@15:00:28 AUTHOR: MARIYA HINOJOSA EXP COSIGNER: URGENCY: STATUS: COMPLETED COMMUNITY CARE-FIOR SELF PRESENTING CARE COORD PLAN NOTE Has ADDENDA Emergency Notification Intake Date Presenting to the Facility: Jul Method of Contact: Notified from [employer] worklist Notification ID: [id number] [facility] Referral #: [facility] Name: Hospital: [facility] Address: City: [place] State: [place] Zip Code: Phone : [facility] Point of Contact: Name: Vale Phone: Chief complaint: ?STROKE Primary Diagnosis: I63.411, I63.9, R20.2 Disposition Admitted Route of Admission: ER Date of Admission: Jul Admitting Diagnosis: I63.411, I63.9, R20.2 Community Care Provider: Ramona Level of Care: /lisa/ MARIYA IRENE Signed: 08/16/2024 15:08 Receipt Acknowledged By: * AWAITING SIGNATURE * MARY BOLTON 08/16/2024 15:10 /lisa/ AISHA SANDERS, MANJU REGISTERED NURSE * AWAITING SIGNATURE * BARAK OTT * AWAITING SIGNATURE * SANDER MERRITT 08/16/2024 15:44 /es/ Chito Medrano PA-C STAFF PHYSICIAN ARTIST SCIENTIFIC 08/16/2024 ADDENDUM STATUS: COMPLETED Recieved notes from [place], will place in PCP fax folder for review. /es/ AISHA SANDERS RN REGISTERED NURSE Signed: 08/16/2024 15:10 MARIYA HINOJOSA PANACEA
--- OUTSIDE RECORDS SUMMARY | 2024-08-18 16:31 | XMS_ITS ---
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 Organization [facility] Address [address] [place] [address] Care Team Providers [employer] Specialist Name Role Phone CHITO MEDRANO Primary Care [...] PART A Feb 16, 2018 PART A [id number] YENNY OVIEDO ES PATIENT MEDICARE (WNR) MEDICARE (M) PART B Feb 16, 2018 PART B [id number] YENNY OVIEDO ES PATIENT MEDICARE (WNR) MEDICARE (M) PART A Oct 17, 2006 PART A [id number] YENNY OVIEDO PATIENT FOR LIFE TFL* Apr 06, 2018 [id number] YENNY OVIEDO PATIENT Selected Encounter This section includes the information on record at ME for the Encounter. Date/Time Encounter Type Encounter Description Reason Provider Source Jul 30, 2024 08:00 AM OFFICE O/P EST LOW 20 MIN PRIMARY CARE/MEDICINE ICD-10-CM I48.91 Unspecified atrial fibrillation CUCOELIEL GARCIA LIZA F [facility] Encounter Template Text not used by ME Assessments - Encounter Diagnoses This section includes the primary and secondary diagnoses documented for the Encounter. Date/Time Primary/Secondary Diagnosis Diagnosis Name Provider Source Jul 30, 2024 09:00 AM PRIMARY Unspecified atrial fibrillation ELIEL MEDRANO Wilberto [place] [facility] [place] [facility] Jul 30, 2024 09:00 AM SECONDARY Hypertension secondary to endocrine disorders ELIEL MEDRANO Wilberto [facility] [place] [facility] Jul 30, 2024 09:00 AM SECONDARY Other hyperlipidemia ELIEL MEDRANO Wilberto [facility] [place] [facility] Plan of Treatment: Future Appointments (+ 6 months) and Future Tests (+/- 45 days) The Plan of Treatment section includes future care activities for the patient [facility] This section includes future appointments and future orders which are active, pending or scheduled. Future Appointments This section includes appointments that were scheduled to occur 6 months from the date of the Encounter, up to a maximum of 20 appointments. The data comes from all [place] treatment facilities. Appointment Date/Time Appointment Type Appointme nt Facility Name Aug 23, 2024 08:00 AM [facility] October 08, 2024 09:00 AM AMBULATORY - MEDICINE [facility] Nov 01, 2024 08:00 AM AMBULATORY - MEDICINE [facility] Nov 05, 2024 08:00 AM AMBULATORY - MEDICINE [facility] [place] [facility] Jan 04, 2025 07:30 AM AMBULATORY - NONE [place] [facility] [place] [facility] Active, Pending, and Scheduled Orders This section includes a listing of several types of active, pending, and scheduled orders, including clinic medications orders, diagnostic test orders, procedure orders and consult orders; where the start date of the order is 45 days before the date of the Encounter or 45 days after the date of theEncounter. The data comes from all ME treatment [facility]. Test Date/Time Test Type Test Details Facility Name Jul 30, 2024 08:59 AM Consult Order COMMUNITY CARE-MAMMOGRAPHY MALE DIAGNOSTIC Cons Helpdesk Technician's Choice [facility] Aug 23, 2024 12:00 AM Laboratory - Chemistry Order CBC AND DIFF (AUTO) BLOOD (LAV-BLOOD) SP [facility] Aug 23, 2024 12:00 AM Laboratory - Chemistry Order BASIC METABOLIC PANEL (fasting) BLOOD (SST-SERUM) SP [facility] Aug 25, 2024 12:00 AM Imaging - Ultrasou nd Order ULTRASOUND NECK (THYROID,HEAD,SOFT TISSUE) [facility] Lab Results: +/- 30 days of the encounter This section includes the Chemistry and Hematology Lab Results on record with ME for the patient. Radiology Reports and Pathology Reports are provided separately, in subsequent sections. Lab Results This section contains the Chemistry/Hematology Results that were resulted 30 days before or 30 daysafter the date of the Encounter. Date/Time Source Result Type Result - Unit Interpretation Reference Range Comment Jul 23, 2024 09:42 AM [facility] HEMOGLOBIN A1C PANEL Specimen Type: BLOOD [...] Jul 23, 2024 08:10 AM Reporting Lab: [address] [address] Performing Lab: [address] [address] HEMOGLOBIN A1C 6.5 H 4.0-5.6 Jul 23, 2024 09:42 AM [facility] VITAMIN B12 Specimen Type: SERUM No comment entered. Ordering Provider: AYUSH MEDRANO Report Released Date/Time: Jul 23, 2024 08:10 AM Reporting Lab: [address] [address] Performing Lab: [address] [place] [address] VITAMIN B12 >2000 pg/mL H 200-900 Jul 23, 2024 09:42 AM [facility] MICROALBUMIN CREATININE RATIO PANEL Specimen Type: URINE No comment entered. Ordering Provider: AYUSH MEDRANO F Report Released Date/Time: Jul 23, 2024 08:10 AM Reporting Lab: [address] [address] Performing Lab: [address] [address] MICROALBUMIN/C REATININE RATIO 19.8 mg/g 0-29.9 MICROALBUMIN,Q UANTITATIVE 1.3 mg/dL RR UNAVAIL CREATININE URINE 65.62 mg/dL Jul 23, 2024 09:42 AM [facility] LIPID PANEL FASTING Specimen Type: SERUM No comment entered. Ordering Provider: AYUSH MEDRANO F Report Released Date/Time: Jul 23, 2024 08:10 AM Reporting Lab: [address] [address] Performing Lab: [address] [address] CHOLESTEROL 121 mg/dL TRIGLYCERIDE 169 mg/dL H 0-150 LDL calculated 58 mg/dL 0-129 CHOL/HDL 4.2 HDL CHOLESTEROL 29 mg/dL L 40-60 Jul 23, 2024 09:42 AM [facility] LIVER FUNCTION Specimen Type: SERUM No comment entered. Ordering Provider: AYUSH MEDRANO F Report Released Date/Time: Jul 23, 2024 08:10 AM Reporting Lab: [address] [address] Performing Lab: [address] [address] PROTEIN,TOTAL 7.3 g/dL 6.0-8.3 ALBUMIN 3.5 g/dL 3.5-5.0 ALKALINE PHOSPHATASE 60 U/L 40-150 AST 23 U/L 5-34 ALT 18 U/L BILIRUBIN, TOTAL 2.1 mg/dL H 0.2-1.2 BILIRUBIN, DIRECT 0.9 mg/dL H 0-0.5 Jul 23, 2024 09:42 AM [facility] BASIC METABOLIC PANEL (fasting) Specimen Type: SERUM No comment entered. Ordering Provider: AYUSH MEDRAON F Report Released Date/Time: Jul 23, 2024 08:10 AM Reporting Lab: [facility] [address] [facility] [address] Performing Lab: [address] [address] UREA NITROGEN 25 mg/dL 7-25 GLUCOSE 154 mg/dL H 65-100 SODIUM 134 mmol/L L 135-145 POTASSIUM 3.3 mmol/L L 3.5-5.0 CHLORIDE 96 mmol/L L 100-110 CO2 25 meq/L 20-30 CALCIUM 8.6 mg/dL 8.5-10.2 CREATININE, Serum 1.01 mg/dL 0.50-1.40 eGFR(CKD-EPI 2020) 79 mL/min >60 Jul 23, 2024 09:42 AM [facility] VITAMIN D (25-OH) Specimen Type: SERUM No comment entered. Ordering Provider: AYUSH MEDRANO Report Released Date/Time: Jul 23, 2024 08:10 AM Reporting Lab: [address] [address] Performing Lab: [address] [address] VITAMIN D (25-OH) 37 ng/mL 20-50 Vital Signs: All taken on the encounter date This section contains inpatient and outpatient Vital Signs collected on the date of the Encounter. Date/Time Temperature Pulse Blood Pressure Respiratory Rate SP02 Pain Height Weight Body Mass Index Source Jul 30, 2024 08:01 AM 98.3 71 120/76 16 98 8 199 29 [facility] Social History: Smoking Status (Most current) and Tobacco Use (All prior to encounter date) This section includes the most current, and the historical, smoking and tobacco- related health factors from the ME facility where the Encounter took place. Current Smoking Status This section includes the most current smoking, or tobacco-related health factor, from the ME facility where the Encounter took place. Date/Time Current Smoking Status Comment Ginger ellis Jul 30, 2024 08:00 AM VA-TOBACCO USE FOR NICOLE CIGARETTES [facility] Tobacco Use History This section includes a history of the smoking, or tobacco-related health factors, that were collected on or before the date of the Encounter. The data comes from the ME facility where the Encounter took place. Date/Time Smoking Status/Tobacco Use Comment Wilberto holbrook Jul 30, 2024 08:00 AM VA-TOBACCO USE FOR NICOLE CIGARETTES [facility] [place] [facility] Jul 21, 2023 01:30 PM VA-TOBACCO FORMER USER [facility] [place] [facility] Jul 21, 2023 01:30 PM VA-TOBACCO QUIT 15 YRS OR MORE [facility] [place] [facility] Mar 28, 2021 03:28 PM VA-TOBACCO FORMER USER [facility] [place] [facility] Mar 28, 2021 03:28 PM VA-TOBACCO QUIT 15 YRS OR MORE [facility] [place] [facility] Dec 02, 2019 09:36 AM VA-TOBACCO NEVER USED [facility] [place] [facility] Apr 23, 2005 10:19 AM QUIT TOBACCO USE IN PAST YEAR [facility] Advance Directives: All historical and current Section Date Range: From patient's date of to the date document was created. This section includes ALL of a patient's completed or amended [place] Advance and Rescinded Directives. The entries below indicate that a directive exists for the patient, but an actual copy is not included with this document. The data comes from all ME facilities. Date Advance Directives Provider Source Dec 16, 2011 ADVANCE DIRECTIVE DISCUSSION MARGARITA TERRAZAS Encounter Notes: All associated encounter notes This section contains the clinical notes associated to the Encounter. Date/Time Encounter Note(s) Provider Source Aug 18, 2024 02:26 PM ADDENDUM: LOCAL TITLE: Addendum STANDARD TITLE: ADDENDUM DATE OF NOTE: AUG 18, 2024@14:26:16 ENTRY DATE: AUG 18, 2024@14:26:17 AUTHOR: VANWAGNER,CHITO F EXP COSIGNER: URGENCY: STATUS: COMPLETED I reviewed faXES OF his 08/14/2024 cva, seen and admitted at [place]. I ordered US thyroid in f/u of probable nodule seen in CTA head/neck, routine, next available Baby aspirin 3 times a week as neurology recommended and ultrasound six months as they asked as well. Please call, discuss, inquire about other needs? Notes stated no residual, but PT and speech therapy are an option if needed. /lisa/ Chito Medrano PA-C STAFF PHYSICIAN BOX LIDDER Signed: 08/18/2024 14:29 Receipt Acknowledged By: 08/18/2024 15:22 /es/ AISHA SANDERS, MANJU REGISTERED NURSE --- Original Document --- 07/30/24 DINO NOTE: CC/HPI/A/P: 69 year old MALE here in follow-up for; mitral valve repair last month, doing very well I had given up reports that he felt better immediatly upon recovering from anesthesia! In cardiac rehab, f/u with Dr Fernando at [facility] in August, pending appt. Left breast pain, onset 'before spironolactone resumed this winter' phx of gynecomastia. Exam finds tender left supero-lateral gynecomastia, moderate. Mammo at [facility], He will call Cardio today and ask if he may stop spironolactone now. Review of systems: Patient reports no changes from [facility], in meds or any admissions. Active problems - Computerized Problem List is the source for the followin. Long-term current use of anticoagulant 2. Atrial fibrillation ([facility] [id number]) 3. Exposure to potentially hazardous substance ([facility] [id number]) Entered automatically through [facility] Problem List documentation program 4. SAS - Sleep apnea syndrome 5. COPD - Chronic Obstructive Pulmonary Disease ([facility] [id number]) 6. Gastroesophageal reflux disease 7. Benign localized hyperplasia of prostate 8. Deficiency of vitamin D3 9. Thrombocytopenia 10. Diabetes mellitus type 2 (SNOMED CT 28700091) 11. Disorder of rotator cuff 12. Lumbar Radiculopathy EMG motor loss post.tib Bilat Chronic R. L5-S1 dennerv. L-S MRI 01/27 disc bulge + mild mod stenosis L3-4, 4-5.+ R.L4-5 foraminal narrowing. Schmorl's node T12 13. Diverticulitis, Colonic * 14. Gastroesophageal Reflux Disorder 15. Degenerative arthritis (SNOMED CT 270396999) 16. Mitral Valve Prolapse ECHO 01/25 EF 55-60%. AV mildly thickened. No AI/. mild LAE myxom. degen MV. mild MVP.mild-mod MR. mild TR. AYP19-63os Echo 02/26EF60%,2-3+MR,LAE,myx. degen MV, no change fr [address] Kassidy Campbell [phone] 17. Hyperlipidaemia (SNOMED CT 13035727) 18. Benign essential hypertension (SNOMED CT 1661081) Dr Saunders 19. Obesity 20. Posttraumatic Stress Disorder 21. Panic Attacks SERVICE CONNECTED % - 80 VA and Non VA meds were reconciled with the patient who left with a corrected copy. See medication page for details. Active and Recently Outpatient Medications (excluding Supplies): Active Outpatient Medications Status 1) ALBUTEROL 100/IPRATRO 20MCG 120D PO INHL INHALE 1 PUFF BY ACTIVE MOUTH FOUR TIMES DAILY NEEDED --FOR BREATHING Indication: FOR BRONCHOSPASM 2) APIXABAN 5MG TAB TAKE ONE TABLET BY MOUTH EVERY 12 HOURS ACTIVE Indication: FOR PREVENTION OF BLOOD CLOTS 3) ATORVASTATIN CALCIUM 40MG TAB TAKE ONE-HALF TABLET BY MOUTH ACTIVE EVERY EVENING FOR CHOLESTEROL Indication: FOR HIGH CHOLESTEROL 4) CHOLECALCIF 25MCG (D3-1,000UNIT) TAB TAKE ONE TABLET BY ACTIVE MOUTH ONCE DAILY FOR VITAMIN SUPPLEMENTATION Indication: FOR VITAMIN D DEFICIENCY 5) CYANOCOBALAMIN 1000MCG TAB TAKE ONE TABLET BY MOUTH ONCE ACTIVE DAILY Indication: FOR PREVENTION OF VITAMIN B12 DEFICIENCY 6) DILTIAZEM (EQV-CARDIZEM) 120MG 24HR CAP TAKE ONE CAPSULE BY ACTIVE MOUTH ONCE DAILY Indication: FOR HIGH BLOOD PRESSURE 7) FINASTERIDE 5MG TAB TAKE ONE TABLET BY MOUTH DAILY FOR ACTIVE PROSTATE 8) FUROSEMIDE 40MG TAB TAKE ONE TABLET BY MOUTH TWICE DAILY TO ACTIVE (S) REMOVE FLUID/CONTROL BLOOD PRESSURE Indication: FOR HIGH BLOOD PRESSURE 9) KETOCONAZOLE 2% CREAM APPLY A SMALL AMOUNT TOPICALLY TWICE ACTIVE DAILY Indication: FOR FUNGAL INFECTION OF SKIN 10) METFORMIN HCL 750MG 24HR SA TAB TAKE ONE TABLET BY MOUTH ACTIVE EVERY EVENING Indication: FOR TYPE 2 DIABETES MELLITUS 11) MICONAZOLE NITRATE 2% TOP PWDR APPLY SMALL AMOUNT TOPICALLY ACTIVE ONCE DAILY NEEDED Indication: FOR ATHLETE'S FOOT 12) MOMETASONE 200MCG/ACTUAT 120D ORAL INHL INHALE 2 PUFFS BY ACTIVE MOUTH TWICE DAILY --RINSE MOUTH AFTER EACH USE Indication: FOR CONTROLLER MEDICATION FOR ASTHMA 13) MONTELUKAST NA 10MG TAB TAKE ONE TABLET BY MOUTH EVERY ACTIVE EVENING Indication: FOR CONTROLLER MEDICATION FOR ASTHMA 14) OMEPRAZOLE 20MG EC CAP TAKE TWO CAPSULES BY MOUTH DAILY FOR ACTIVE (S) STOMACH ACID 15) SEMAGLUTIDE 1MG/0.75ML INJ PEN 3ML INJECT 1MG SUBCUTANEOUSLY ACTIVE (S) ONCE A WEEK Indication: FOR TYPE 2 DIABETES MELLITUS 16) SPIRONOLACTONE 25MG TAB TAKE ONE-HALF TABLET BY MOUTH ONCE ACTIVE DAILY 17) TADALAFIL 5MG TAB TAKE ONE TABLET BY MOUTH ONCE DAILY FOR ACTIVE BPH Indication: FOR ERECTILE DYSFUNTION 18) TERAZOSIN HCL 10MG CAP TAKE ONE CAPSULE BY MOUTH AT BEDTIME ACTIVE FOR BPH Inactive Outpatient Medications Status 1) CEPHALEXIN 500MG CAP TAKE FOUR CAPSULES BY MOUTH ONE TIME 1 HOUR PRIOR TO DENTAL APPOINTMENT (8 CAPSULES COVERS 2 DENTAL APPOINTMENTS) Indication: FOR INFECTION CAUSED BY BACTERIA 2) FLUTICASONE PROP 50MCG 120D NASAL INHL INSTILL 2 SPRAYS INTO EACH NOSTRIL ONCE DAILY NEEDED FOR NASAL IRRITATION/INFLAMMATION 3) MICONAZOLE NITRATE 2% TOP PWDR APPLY SMALL AMOUNT TOPICALLY TWICE DAILY Indication: FOR ATHLETE'S FOOT 4) WATER STERILE FOR IRRIGATION IRRIGATE MODERATE AMOUNT DIRECTED ONCE DAILY FOR C-PAP MACHINE Active Non-VA Medications Status 1) Non-VA EMPAGLIFLOZIN 10MG TAB 10MG BY MOUTH ONCE DAILY ACTIVE Indication: UNKNOWN 2) Non-VA OTHER CAP/TAB BUTALBITAL BY MOUTH ONCE DAILY ACTIVE NEEDED 24 Total Medications 98.3 F [36.8 C] (07/30/2024 08:01) 71 (07/30/2024 08:01) 16 (07/30/2024 08:01) 120/76 (07/30/2024 08:01) 8 (07/30/2024 08:01) 70 in [177.8 cm] (01/03/2022 10:15) 199 lb [90.26 kg] (07/30/2024 08:01) BMI: 28.6 Neuro: Alert and oriented times three, grossly nonfocal, nasolabial folds intact. Recent labs reviewed with patient today:yes ' They will send a proxy. I don't find ours in his chart. I think the CWADs was entered incorrectly. They report sending outside shot list several times. Please check [facility] and [facility] for attachements. MRS will PRINT copy nad bring to next appt. /lisa/ Chito Medrano PA-C STAFF PHYSICIAN BOX LIDDER Signed: 07/30/2024 09:00 CHITO MEDRANO [facility] [place] [facility] Jul 30, 2024 08:47 AM PHYSICIAN BOX LIDDER NOTE: LOCAL TITLE: DINO NOTE STANDARD TITLE: PHYSICIAN BOX LIDDER NOTE DATE OF NOTE: JUL 30, 2024@08:47 ENTRY DATE: JUL 30, 2024@08:47:36 AUTHOR: CHITO MEDRANO EXP COSIGNER: URGENCY: STATUS: COMPLETED DINO NOTE Has ADDENDA CC/HPI/A/P: 69 year old MALE here in follow-up for; mitral valve repair last month, doing very well I had given up reports that he felt better immediatly upon recovering from anesthesia! In cardiac rehab, f/u with Dr Fernando at [facility] in August, pending appt. Left breast pain, onset 'before spironolactone resumed this winter' phx of gynecomastia. Exam finds tender left supero-lateral gynecomastia, moderate. Mammo at [facility], He will call Cardio today and ask if he may stop spironolactone now. Review of systems: Patient reports no changes from [facility], in meds or any admissions. Active problems - Computerized Problem List is the source for the followin. Long-term current use of anticoagulant 2. Atrial fibrillation ([facility] [id number]) 3. Exposure to potentially hazardous substance ([facility] [id number]) Entered automatically through [facility] Problem List documentation program 4. SAS - Sleep apnea syndrome 5. COPD - Chronic Obstructive Pulmonary Disease ([facility] 43161995) 6. Gastroesophageal reflux disease 7. Benign localized hyperplasia of prostate 8. Deficiency of vitamin D3 9. Thrombocytopenia 10. Diabetes mellitus type 2 (SNOMED CT 75016718) 11. Disorder of rotator cuff 12. Lumbar Radiculopathy EMG motor loss post.tib Bilat Chronic R. L5-S1 dennerv. L-S MRI 01/27 disc bulge + mild mod stenosis L3-4, 4-5.+ R.L4-5 foraminal narrowing. Schmorl's node T12 13. Diverticulitis, Colonic * 14. Gastroesophageal Reflux Disorder 15. Degenerative arthritis (SNOMED CT 160494991) 16. Mitral Valve Prolapse ECHO 01/25 EF 55-60%. AV mildly thickened. No AI/. mild LAE myxom. degen MV. mild MVP.mild-mod MR. mild TR. QSA44-63lb Echo 02/26EF60%,2-3+MR,LAE,myx. degen MV, no change fr [address] Kassidy Campbell [phone] 17. Hyperlipidaemia (SNOMED CT 85332594) 18. Benign essential hypertension (SNOMED CT 2824112) Dr Saunders 19. Obesity 20. Posttraumatic Stress Disorder 21. Panic Attacks SERVICE CONNECTED % - 80 VA and Non VA meds were reconciled with the patient who left with a corrected copy. See medication page for details. Active and Recently Outpatient Medications (excluding Supplies): Active Outpatient Medications Status 1) ALBUTEROL 100/IPRATRO 20MCG 120D PO INHL INHALE 1 PUFF BY ACTIVE MOUTH FOUR TIMES DAILY NEEDED --FOR BREATHING Indication: FOR BRONCHOSPASM 2) APIXABAN 5MG TAB TAKE ONE TABLET BY MOUTH EVERY 12 HOURS ACTIVE Indication: FOR PREVENTION OF BLOOD CLOTS 3) ATORVASTATIN CALCIUM 40MG TAB TAKE ONE-HALF TABLET BY MOUTH ACTIVE EVERY EVENING FOR CHOLESTEROL Indication: FOR HIGH CHOLESTEROL 4) CHOLECALCIF 25MCG (D3-1,000UNIT) TAB TAKE ONE TABLET BY ACTIVE MOUTH ONCE DAILY FOR VITAMIN SUPPLEMENTATION Indication: FOR VITAMIN D DEFICIENCY 5) CYANOCOBALAMIN 1000MCG TAB TAKE ONE TABLET BY MOUTH ONCE ACTIVE DAILY Indication: FOR PREVENTION OF VITAMIN B12 DEFICIENCY 6) DILTIAZEM (EQV-CARDIZEM) 120MG 24HR CAP TAKE ONE CAPSULE BY ACTIVE MOUTH ONCE DAILY Indication: FOR HIGH BLOOD PRESSURE 7) FINASTERIDE 5MG TAB TAKE ONE TABLET BY MOUTH DAILY FOR ACTIVE PROSTATE 8) FUROSEMIDE 40MG TAB TAKE ONE TABLET BY MOUTH TWICE DAILY TO ACTIVE (S) REMOVE FLUID/CONTROL BLOOD PRESSURE Indication: FOR HIGH BLOOD PRESSURE 9) KETOCONAZOLE 2% CREAM APPLY A SMALL AMOUNT TOPICALLY TWICE ACTIVE DAILY Indication: FOR FUNGAL INFECTION OF SKIN 10) METFORMIN HCL 750MG 24HR SA TAB TAKE ONE TABLET BY MOUTH ACTIVE EVERY EVENING Indication: FOR TYPE 2 DIABETES MELLITUS 11) MICONAZOLE NITRATE 2% TOP PWDR APPLY SMALL AMOUNT TOPICALLY ACTIVE ONCE DAILY NEEDED Indication: FOR ATHLETE'S FOOT 12) MOMETASONE 200MCG/ACTUAT 120D ORAL INHL INHALE 2 PUFFS BY ACTIVE MOUTH TWICE DAILY --RINSE MOUTH AFTER EACH USE Indication: FOR CONTROLLER MEDICATION FOR ASTHMA 13) MONTELUKAST NA 10MG TAB TAKE ONE TABLET BY MOUTH EVERY ACTIVE EVENING Indication: FOR CONTROLLER MEDICATION FOR ASTHMA 14) OMEPRAZOLE 20MG EC CAP TAKE TWO CAPSULES BY MOUTH DAILY FOR ACTIVE (S) STOMACH ACID 15) SEMAGLUTIDE 1MG/0.75ML INJ PEN 3ML INJECT 1MG SUBCUTANEOUSLY ACTIVE (S) ONCE A WEEK Indication: FOR TYPE 2 DIABETES MELLITUS 16) SPIRONOLACTONE 25MG TAB TAKE ONE-HALF TABLET BY MOUTH ONCE ACTIVE DAILY 17) TADALAFIL 5MG TAB TAKE ONE TABLET BY MOUTH ONCE DAILY FOR ACTIVE BPH Indication: FOR ERECTILE DYSFUNTION 18) TERAZOSIN HCL 10MG CAP TAKE ONE CAPSULE BY MOUTH AT BEDTIME ACTIVE FOR BPH Inactive Outpatient Medications Status 1) CEPHALEXIN 500MG CAP TAKE FOUR CAPSULES BY MOUTH ONE TIME 1 HOUR PRIOR TO DENTAL APPOINTMENT (8 CAPSULES COVERS 2 DENTAL APPOINTMENTS) Indication: FOR INFECTION CAUSED BY BACTERIA 2) FLUTICASONE PROP 50MCG 120D NASAL INHL INSTILL 2 SPRAYS INTO EACH NOSTRIL ONCE DAILY NEEDED FOR NASAL IRRITATION/INFLAMMATION 3) MICONAZOLE NITRATE 2% TOP PWDR APPLY SMALL AMOUNT TOPICALLY TWICE DAILY Indication: FOR ATHLETE'S FOOT 4) WATER STERILE FOR IRRIGATION IRRIGATE MODERATE AMOUNT DIRECTED ONCE DAILY FOR C-PAP MACHINE Active Non-VA Medications Status 1) Non-VA EMPAGLIFLOZIN 10MG TAB 10MG BY MOUTH ONCE DAILY ACTIVE Indication: UNKNOWN 2) Non-VA OTHER CAP/TAB BUTALBITAL BY MOUTH ONCE DAILY ACTIVE NEEDED 24 Total Medications 98.3 F [36.8 C] (07/30/2024 08:01) 71 (07/30/2024 08:01) 16 (07/30/2024 08:01) 120/76 (07/30/2024 08:01) 8 (07/30/2024 08:01) 70 in [177.8 cm] (01/03/2022 10:15) 199 lb [90.26 kg] (07/30/2024 08:01) BMI: 28.6 Neuro: Alert and oriented times three, grossly nonfocal, nasolabial folds intact. Recent labs reviewed with patient today:yes ' They will send a proxy. I don't find ours in his chart. I think the CWADs was entered incorrectly. They report sending outside shot list several times. Please check [facility] and [facility] for attachements. MRS will PRINT copy nad bring to next appt. /lisa/ Chito Medrano PA-C STAFF PHYSICIAN BOX LIDDER Signed: 07/30/2024 09:00 08/18/2024 ADDENDUM STATUS: COMPLETED I reviewed faXES OF his 08/14/2024 cva, seen and admitted at [place]. I ordered US thyroid in f/u of probable nodule seen in CTA head/neck, routine, next available Baby aspirin 3 times a week as neurology recommended and ultrasound six months as they asked as well. Please call, discuss, inquire about other needs? Notes stated no residual, but PT and speech therapy are an option if needed. /lisa/ Chito Medrano PA-C STAFF PHYSICIAN BOX LIDDER Signed: 08/18/2024 14:29 Receipt Acknowledged By: * AWAITING SIGNATURE * AISHA SANDERS WILLIAM F [facility] [place] [facility] Jul 30, 2024 08:04 AM PREVENTIVE MEDICINE NURSING NOTE: LOCAL TITLE: CLINICAL REMINDERS/NURSING STANDARD TITLE: PREVENTIVE MEDICINE NURSING NOTE DATE OF NOTE: JUL 30, 2024@08:04 ENTRY DATE: JUL 30, 2024@08:04:32 AUTHOR: DERIC FLORES: URGENCY: STATUS: COMPLETED Homelessness/Food Insecurity Screen: In the past 2 [...] Not worried about housing near future The reports the following: Within the past 12 [...] Use Screening: The patient is a former cigarette smoker. Quit smoking GREATER THAN OR EQUAL to 15 years. The patient has never used other types of tobacco. Alcohol Use Screen (AUDIT-C): Alcohol Screen: SCREEN [...] you were drinking in the past year? Zero drinks 3. How often did you have six or more drinks on one occasion in the past year? Never /es/ DERIC FLORES LPN Signed: 07/30/2024 08:19 DERIC FLORES [facility]
== END 2024-08-18 14:31 | disposition home or self-care (01) ==
LOC: HO.HCS 13:48
PROVIDERS: PCP Internal Medicine; Visit Provider Internal Medicine Cardiovascular Disease
DX: Z95.2 Presence of prosthetic heart valve (principal); I50.9 Heart failure, unspecified; I38 Endocarditis, valve unspecified; I48.3 Typical atrial flutter; I63.411 Cerebral infarction due to embolism of right middle cerebral artery
CPT/HCPCS: 99214; G2211

== ENCOUNTER → 2024-08-18 13:47 | Outpatient (BNVA) | payer MEDICARE, OTHER, SELFPAY | PROVIDERS: PCP Internal Medicine; Visit Provider Internal Medicine Cardiovascular Disease | DX: I63.411 Cerebral infarction due to embolism of right middle cerebral artery (principal); I48.3 Typical atrial flutter; I50.9 Heart failure, unspecified; I38 Endocarditis, valve unspecified; Z95.2 Presence of prosthetic heart valve | CPT/HCPCS: 99212 ==

== ENCOUNTER 2024-09-15 21:06 | Inpatient (IN) | payer OTHER, SELFPAY ==
--- NOTE | 2024-09-15 | ECG_ITS ---
Test Reason : WEAKNESS Blood Pressure : */* mmHG Vent. Rate : 103 BPM Atrial Rate : * BPM P-R Int : * ms QRS Dur : 124 ms QT Int : 356 ms P-R-T Axes : * 18 35 degrees QTcB Int : 466 ms Atrial fibrillation with rapid ventricular response Right bundle branch block Marked ST abnormality, possible septal subendocardial injury Abnormal ECG When compared with ECG of 14-Aug-2024 15:31, QRS axis Shifted right Referred By: Generic ED Physician Electronically Signed By: Chan Taylor
--- NOTE | ~2024-09-15 | XR_ITS ---
CLINICAL HISTORY: fever 1 view chest x-ray Comparison: 05/10/2024 Findings: Lungs are clear without acute infiltrates. No pneumothorax. Heart size enlarged. Sternotomy for cardiac valve replacement. No acute bony abnormalities. Impression: No acute processes This document has been electronically signed by: Dayday Carney MD on 09/15/2024 22:41:20
--- NOTE | ~2024-09-15 | XR_ITS ---
CLINICAL HISTORY: dyspnea 1 view chest x-ray Comparison: Chest x-ray from 09/15/2024 Findings: Recurrent and/or worsening small bilateral pleural effusions with underlying atelectasis/consolidation of the lung bases. Additional pulmonary opacities may reflect pulmonary edema or pneumonitis given interstitial predominance. Cardiomegaly, sternotomy wires, and prosthetic valve again noted. Tendon anchors in left humerus head. IMPRESSION: Small pleural effusions with likely pulmonary edema. This document has been electronically signed by: Jorge Alberto Perea MD on 09/19/2024 21:13:44
--- NOTE | ~2024-09-15 | CT_ITS ---
CLINICAL HISTORY: fever of unknown origin CT chest without contrast Comparison: 05/10/2024 Findings: Trace bilateral pleural effusions. Posterior bilateral lower lobe atelectasis. No significant mediastinal adenopathy noted. No acute focal bony abnormalities. Prior sternotomy for mitral valve replacement. Stable thyroid nodule. Impression: Bilateral pleural effusions with lower lobe atelectasis This document has been electronically signed by: Dayday Carney MD on 09/15/2024 23:51:37
--- NOTE | ~2024-09-15 | FL_ITS ---
EXAMINATION: XR BARIUM SWALLOW CLINICAL INFORMATION: Dysphagia COMPARISON: None available. TECHNIQUE: Routine modified barium swallow was performed under lateral fluoroscopy in presence of speech therapist and oral administration of various consistencies of barium. FINDINGS: On oral administration of thin barium there is shay laryngeal penetration but no aspiration seen. There is improved with time. No retention seen in the valleculae or piriform sinuses. On oral administration of puree and solid food there is normal oral mastication and propagation bolus from oral cavity through the pharynx into esophagus without obstruction narrowing. There is mild retention in the valleculae with small amount persisting over time but clearing with thin barium. FLUOROSCOPY TIME: 3 minutes 8 seconds. DOSE AREA PRODUCT: 220.1 uGy-m2 (microgray-meter squared) FL/FL Modified Barium Swallow IMPRESSION: Laryngeal penetration with thin barium on initial images. No laryngeal aspiration seen. Electronically signed by: Trevor Wheatley MD 09/22/2024 11:55 AM EDT
--- NOTE | ~2024-09-15 | CT_ITS ---
CLINICAL HISTORY: fever of unknown origin CT abdomen and pelvis without contrast Comparison: None Findings: Chest findings in chest CT report. Degenerative change lumbar spine and hips. No acute bony abnormality noted. Liver and spleen within normal limits. Pancreas and adrenal glands unremarkable. Gallbladder within normal limits. No bilateral renal stone or hydronephrosis. No focal renal abnormality or ureteral dilation. Incidental horseshoe kidney variant. No evidence for aortic aneurysm. No free fluid or adenopathy in the pelvis. No diverticulitis. Appendix unremarkable. Impression: No acute processes This document has been electronically signed by: Dayday Carney MD on 09/15/2024 23:47:22
[2024-09-15 21:11] VITALS: BP 106/65; PULSE 97; RESP 18; TEMP 37.7; O2SAT 99
[2024-09-15 21:30] VITALS: BP 132/61; PULSE 91; RESP 18; TEMP 40.2; O2SAT 96
--- NOTE | 2024-09-15 21:30 | PC.NURSE ---
pt from wr to ed13 via wheelchair, oral temp 99.7F. pt changed to hospital attire and placed on cardiac monitoring. pt in agreement to rectal temp and obtained, 104.4F, MD craven made aware and at bedside. iv established. labs obtained. awaiting further orders.
[2024-09-15 21:43] VITALS: BMI 24.3
[2024-09-15 21:49] LABS: Basophils Percent Auto 0.2 % (0-2); Eosinophils Percent Auto 0.2 % (0-4); Hemoglobin 11.8 g/dl (14.0-18.0); Imm Gran Abs Auto 0.03 X10*3/uL (0.00-0.03); Imm Gran Pct Auto 0.5 % (0.0-0.4); Lymphocytes Absolute Auto 0.2 X10*3/uL (1.2-4.9); Lymphocytes Percent Auto 3.5 % (20-40); MANUAL DIFF FLAG SCAN; Mean Corpuscular HGB Conc 33.7 g/dl (31.0-36.0); Mean Corpuscular Hemoglobin 27.4 pg (27.0-33.0); Mean Corpuscular Volume 81.2 fL (80.0-98.0); Mean Platelet Volume 9.2 fL (9.4-12.4); Monocytes Absolute Auto 0.1 X10*3/uL (0.1-1.2); Monocytes Percent Auto 1.1 % (2-11); Neutrophils Absolute Auto 5.9 x10*3/uL (2.0-8.3); Neutrophils Percent Auto 94.5 % (45-73); Platelet Count 111 X10*3/uL (160-400); Red Blood Count 4.31 X10*6/uL (4.60-5.80); Red Cell Distribution Width 15.9 % (11.0-16.0); SCAN SMEAR FLAG 1; White Blood Count 6.3 X10*3/uL (4.8-10.8)
--- NOTE | 2024-09-15 21:50 | ED_ITS ---
HPI - General Adult General Chief complaint: Weakness Stated complaint: fever Time Seen by Provider: 09/15/24 21:31 Source: patient and family Limitations: no limitations History of Present Illness ED Provider: Dr. Whit Brannon HPI narrative: Patient comes to the emergency room complaining of weakness, fever, chills, body aches for 1 day. Patient states that over last hour, all of his symptoms got worse. According to the patient's , today the patient got significantly more weak. Patient has taken a total of 2000 mg of acetaminophen today to help control the chills and generalized malaise. According to the patient's , 2 days ago patient had a CAT scan of the abdomen pelvis done because patient was complaining of generalized back pain and his PCP wanted to make sure that nothing was missed. According to the patient's , the results were negative for any acute findings. Related Data Home Medications ?Medication ?Instructions ?Recorded ?Confirmed cholecalciferol (vitamin D3) 25 25 mcg PO DAILY 11/08/20 08/18/24 mcg (1,000 unit) capsule clonazepam 0.5 mg tablet 0.5 mg PO DAILY PRN Anxiety 11/08/20 08/18/24 finasteride 5 mg tablet 5 mg PO DAILY 11/08/20 08/18/24 mometasone 220 mcg/actuation(30 2 inh inhalation BID 11/08/20 08/18/24 doses) breath activated powder inhaler (Asmanex Twisthaler) saw palmetto 160 mg capsule 160 mg PO DAILY 11/08/20 08/18/24 fluticasone propionate 50 1 spray intranasal BID 02/13/21 08/18/24 mcg/actuation nasal spray,suspension (Flonase Allergy Relief) omeprazole 20 mg capsule,delayed 40 mg PO QPM 01/30/23 08/18/24 release apixaban 5 mg tablet (Eliquis) 5 mg PO BID 01/05/24 08/18/24 terazosin 10 mg capsule 10 mg PO DAILY 02/03/24 08/18/24 tadalafil 5 mg tablet (Cialis) 5 mg PO BEDTIME 03/04/24 08/18/24 metformin 750 mg tablet,extended 750 mg PO QPM 04/08/24 08/18/24 release 24 hr diltiazem HCl 120 mg 120 mg PO BEDTIME 05/10/24 08/18/24 capsule,extended release 24 hr atorvastatin 40 mg tablet 20 mg PO BEDTIME 08/14/24 08/18/24 cyanocobalamin (vitamin B-12) 1,000 mcg PO DAILY 08/14/24 08/18/24 1,000 mcg tablet ketoconazole 2 % topical cream 1 appl topical BID PRN Rash 08/14/24 08/18/24 miconazole nitrate 2 % topical 1 appl topical DAILY PRN Rash 08/14/24 08/18/24 powder montelukast 10 mg tablet 10 mg PO BEDTIME 08/14/24 08/18/24 semaglutide 1 mg/dose (4 mg/3 mL) 1 mg subcut CHASE 08/14/24 08/18/24 subcutaneous pen injector (Ozempic) Previous Rx's ?Medication ?Instructions ?Recorded empagliflozin 10 mg tablet 10 mg PO DAILY #90 tabs 04/13/24 (Jardiance) furosemide 40 mg tablet 40 mg PO DAILY #90 tabs 05/13/24 aspirin 81 mg tablet,delayed 81 mg PO 3XW #30 tabs 08/15/24 release eplerenone 25 mg tablet 12.5 mg (1/2 x 25 mg) PO DAILY #30 08/18/24 tabs Allergies Allergy/AdvReac Type Severity Reaction Status Date / Time DUSTIN Inhibitors Allergy Severe Anaphylaxis Verified 09/15/24 21:16 [Dustin Inhibitors] pineapple [PINEAPPLE] Allergy Severe Angioedema Verified 09/15/24 21:16 thimerosal [Thimerosal] Allergy Severe Angioedema Verified 09/15/24 21:16 fluoxetine [From PROZAC] Allergy Intermediate REQUIRED Verified 09/15/24 21:16 HOSPITALIZATION Penicillins Allergy Intermediate Rash Verified 09/15/24 21:16 tamsulosin Allergy Mild tacycardia Verified 09/15/24 21:16 aspartame [ASPARTAME] Allergy Unknown Unknown Verified 09/15/24 21:16 hexachlorophene Allergy Unknown Unknown Verified 09/15/24 21:16 [From PHISOHEX] melon Allergy Unknown Unknown Verified 09/15/24 21:16 perfume Allergy Unknown Unknown Verified 09/15/24 21:16 povidone-iodine Allergy Unknown Unknown Verified 09/15/24 21:16 [From BETADINE] soap [Betadine] Allergy Unknown Unknown Verified 09/15/24 21:16 codeine [Codeine] AdvReac Intermediate wakes up Verified 09/15/24 21:16 combative meperidine [From Demerol] AdvReac Intermediate Hallucinati Verified 09/15/24 21:16 ons monosodium glutamate AdvReac Intermediate Headache Verified 09/15/24 21:16 morphine AdvReac Intermediate wakes up Verified 09/15/24 21:16 combative dexon Allergy Unknown Unknown Uncoded 09/15/24 21:16 GLUE IN SHOES Allergy Unknown UNKNOWN Uncoded 09/15/24 21:16 PLASTIC TAPE Allergy Unknown skin Uncoded 09/15/24 21:16 problems POLYGLACTIC ACID(DEXON & Allergy Unknown UNKNOWN Uncoded 09/15/24 21:16 VICRYL) vicryl Allergy Unknown Unknown Uncoded 09/15/24 21:16 Review of Systems 2 Review of Systems: Constitutional : No Weight loss, complaining of fever and chills, No Night Sweats, complaining of fatigue and generalized malaise ENT/Mouth : No Hearing loss, No Ear Pain, No Nasal Congestion, No Sinus Pain, No Hoarseness, No sore throat, No Rhinorrhea, No Swallowing Difficulty Eyes: No Eye Pain, No Swelling, No Redness, No Foreign Body, No Discharge, No Vision Changes Cardiovascular : No Chest Pain, No SOB, No Dyspnea on Exertion, No Orthopnea, No Edema, No Palpitations Respiratory : No Cough, No Sputum, No Wheezing, No Smoke Exposure, No Dyspnea Gastrointestinal : No Nausea, No Vomiting, No Diarrhea, No Constipation, No abdominal Pain, No Hematochezia, No Melena Genitourinary : no irregular bleeding, No Dysuria, No Urinary Frequency, No Hematuria, No Urinary Incontinence, No Urgency, No Flank Pain, No Urinary Flow Changes, No Hesitancy Musculoskeletal : No joint pain, No Myalgias, No Joint Swelling Skin : No Skin Lesions, No rash Neuro : No Weakness, No Numbness, No Paresthesias, No Loss of Consciousness, No Dizziness, No Headache Psych : No Anxiety/Panic, No Depression, No SI/HI/AH/VH, No Social Issues, Heme/Lymph: No Bruising, No Bleeding,No Lymphadenopathy Endocrine : No Polyuria, No Polydipsia, No Temperature Intolerance PMFSH Past Medical History Medical History CVA (cerebral vascular accident) Paroxysmal atrial flutter Prosthetic valve dysfunction Atrial flutter Elevated cholesterol History of GI diverticular bleed BPH (benign prostatic hyperplasia) History of blood transfusion GERD (gastroesophageal reflux disease) Type 2 diabetes mellitus Depression with anxiety PTSD (post-traumatic stress disorder) Migraine COPD, mild Asthma HTN (hypertension) Obstructive sleep apnea Enlarged RV (right ventricle) Mitral regurgitation Surgical History S/P MVR (mitral valve replacement) History of esophagogastroduodenoscopy (EGD) H/O colonoscopy History of excision of lesion (06/25/22) History of arthroscopy of right knee History of left inguinal hernia repair History of repair of right rotator cuff History of repair of left rotator cuff History of mitral valve replacement Hx of cardiac cath Family History Family History Father Rheumatic fever Mother No problems noted. 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, 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 Physical Exam ED Vital Signs: Vital Signs - 24 hr 09/15/24 21:11 09/15/24 21:30 09/15/24 22:00 Temperature 99.8 F 104.4 F H 105.1 F H Pulse Rate 97 91 Respiratory Rate 18 18 Blood Pressure 106/65 132/61 Pulse Oximetry 99 96 Oxygen Delivery Method Room Air Room Air Oxygen Flow Rate 09/15/24 22:51 09/15/24 23:18 09/15/24 23:18 Temperature 103.3 F H 102.4 F H Pulse Rate 93 Respiratory Rate 20 Blood Pressure 94/50 L Pulse Oximetry 88 L 91 L Oxygen Delivery Method Room Air Nasal Cannula Oxygen Flow Rate 2 09/16/24 00:05 09/16/24 00:18 Temperature 101 F H 100.8 F H Pulse Rate 83 89 Respiratory Rate 20 24 H Blood Pressure 86/47 L 84/47 L Pulse Oximetry 92 92 Oxygen Delivery Method Nasal Cannula Nasal Cannula Oxygen Flow Rate 2 2 BMI result Body Mass Index 24.3 Const Other: Appearance: Alert. Oriented X3. Seems weak, ill-appearing. Eyes: Pupils equal, round and reactive to light. ENT: Pharynx normal. Dry oral mucosa, cracked lips Neck: Normal inspection. Neck supple. No lymph nodes noted. No crepitus CVS: Normal heart rate and rhythm. Pulses normal. Normal S1 and S2 Respiratory: No respiratory distress. Breath sounds normal. No Wheezing. No rales Abdomen: Soft and nontender. No rigidity. No distention. Skin: Very warm to touch and dry. Normal skin color. Normal skin turgor. Extremities: No lower extremity edema. No Lacerations. No Rash Neuro: Oriented X 3. No motor deficit. No sensory deficit. Moving all extremities. No slurred speech. CN 2 through 12 grossly intact Psych: calm, cooperative, normal affect Course Course Course Narrative: I was informed by the patient's nurse that his temperature is 104.4 degrees. Patient's blood pressure normal, heart rate normal, oxygen saturation normal. At this time, 21:54, sepsis is not suspected Patient is empirically being treated with IV fluids and ceftriaxone All of patient's labs and imaging pending I reviewed patient's transthoracic echocardiogram from July of 2024: The left ventricular systolic function is normal, ejection fraction 63%. Medications Administered Generic Name Dose Route Start Last Admin Trade Name Freq PRN Reason Stop Dose Admin Albumin Human 100 mls @ 133.333 mls/hr 09/15/24 23:30 09/16/24 00:25 Kedbumin 25 % IV 09/16/24 01:14 133.33 mls/hr Q1H COLT Administration Azithromycin 500 mg/ Sodium 250 mls @ 125 mls/hr 09/15/24 23:28 09/15/24 23:36 Chloride IV 09/16/24 01:27 125 mls/hr ONCE ONE Administration Discontinued Medications Generic Name Dose Route Start Last Admin Trade Name Freq PRN Reason Stop Dose Admin Ceftriaxone Sodium 1 gm 09/15/24 21:43 09/15/24 22:08 Ceftriaxone Sodium 1 Gm Vial IVPUSH 09/15/24 21:44 1 gm ONCE ONE Administration Sodium Chloride 2,307 mls @ 2,307 mls/hr 09/15/24 21:54 09/15/24 23:17 Ns 30 ml/kg infuse over 1 hr (2307 ml) 09/15/24 22:53 Infused IV Infusion .Q1H STA Acetaminophen 1,000 mg in 100 mls @ 400 mls/hr 09/15/24 22:12 09/15/24 22:36 Ofirmev IV 09/15/24 22:26 Infused ONCE ONE Infusion Sodium Chloride 1,000 mls @ 999 mls/hr 09/15/24 23:25 09/16/24 00:05 Ns IVCONT 09/16/24 00:25 Infused .Q1H1M ONE Infusion Medical Decision Making Medical Decision Making MDM Narrative: At this time, 22:05, lab called with critical labs. Lactic acid is 7.1. sepsis is suspected, sepsis protocol has been started at this time Patient already receiving fluids and antibiotics At this time, hematology chemistry and x-rays are still pending. According to the patient's , he took 1000 mg of acetaminophen at 05:00, then 1000 more mg at noon, and then 1000 more around 17:00. We will proceed with another dose of 1000 mg IV Ofirmev, this is the last dose of Tylenol that we can give in this 24 hour. Patient is on Eliquis and therefore NSAIDs will be avoided 22:50, patient's labs are back, normal hematology, no significant abnormality and chemistry, serology negative for influenza COVID RSV Chest x-ray negative for infiltrates Urine is still pending. 2325: Patient's temperature 102 degrees, fever decreasing. My interpretation of CT scan, bilateral lower lobe pneumonia. My interpretation of CT scan of the abdomen: No obvious abnormality. Radiology reports pending Patient's blood pressure in the low 90s systolic. Patient will be given albumin, 1 more L of fluids. Patient seems to be dehydrated. Also, we will add azithromycin. At 12:18, I was informed by the patient's nurse that the patient's blood pressure is dropping, currently 84/47. Patient's current temperature 100.8 degrees F. Patient has received a sepsis bolus of fluids, albumin, antibiotics. Levophed will be started at this time I discussed the patient with Dr. Meraz, patient accepted to the ICU I discussed the above-mentioned with the patient and family at bedside, patient being admitted 12:25: FOCUS exam has been performed Differential Diagnosis Differential Diagnoses: The differential diagnosis associated with the presentation includes (Sepsis, pneumonia, UTI, viral syndrome) Admission/Observation Consideration of admission/observation: Escalation of care including admission/observation considered Consult Healthcare Provider Management of the patient was discussed with: Transportation Planner Lab Data MDM Lab Attestation statement: I reviewed the patient's lab results. 09/15/24 21:37 09/15/24 21:37 Labs: Lab Results 09/15/24 09/15/24 09/15/24 Range/Units 21:37 22:34 23:55 WBC 6.3 (4.8-10.8) X10*3/uL RBC 4.31 L (4.60-5.80) X10*6/uL Hgb 11.8 L (14.0-18.0) g/dl Hct 35.0 L (42.0-52.0) % MCV 81.2 (80.0-98.0) fL MCH 27.4 (27.0-33.0) pg MCHC 33.7 (31.0-36.0) g/dl RDW 15.9 (11.0-16.0) % Plt Count 111 L (160-400) X10*3/uL MPV 9.2 L (9.4-12.4) fL Immature Gran % (Auto) 0.5 H (0.0-0.4) % Neut % (Auto) 94.5 H (45-73) % Lymph % (Auto) 3.5 L (20-40) % [place] % (Auto) 1.1 L (2-11) % Eos % (Auto) 0.2 (0-4) % Baso % (Auto) 0.2 (0-2) % Lymph # (Auto) 0.2 L (1.2-4.9) X10*3/uL [place] # (Auto) 0.1 (0.1-1.2) X10*3/uL Eos # (Auto) 0.0 (0.0-0.4) X10*3/uL Baso # (Auto) 0.0 (0.0-0.2) X10*3/uL Abs Immat Gran (auto) 0.03 (0.00-0.03) X10*3/uL Absolute Neuts (auto) 5.9 (2.0-8.3) x10*3/uL Absolute Nucleated RBC 0.000 (0.0-0.012) X10*3/uL Nucleated RBC % (auto) 0.0 (0.0-0.2) /100WBC Smear Tech's Comments VERIFIED PT 24.2 H D (10.9-12.4) SEC INR 2.1 H (0.9-1.1) Sodium 137 (135-145) mmol/L Potassium 3.6 (3.3-5.1) mmol/L Chloride 98 (96-108) mmol/L Carbon Dioxide 20 L (22-29) mmol/L Anion Gap 23 H (12-20) BUN 22 H (9-16) mg/dL Creatinine 0.90 (0.5-1.4) mg/dL Estim Creat Clear Calc 77.7 Estimated GFR > 60 Random Glucose 191 H (60-115) mg/dL Lactic Acid 7.1 H* (0.5-2.0) mmol/L Lactic Acid F/U @ 2Hr 2.8 H* (0.5-2.0) mmol/L Calcium 8.7 (8.4-10.2) mg/dL Total Bilirubin 0.9 (0.0-1.0) mg/dL AST 28 (5-37) U/L ALT 6 (0-40) U/L Alkaline Phosphatase 69 (39-117) U/L Troponin I High Sens 8.2 D (<3.5-35.0) ng/L B-Natriuretic Peptide 149 H (<100) pg/mL Total Protein 6.9 (6.5-8.0) g/dL Albumin 3.2 L (3.5-5.0) g/dL Urine Color Yellow Urine Appearance Clear Urine pH 5.5 (5.0-9.0) Ur Specific Shock 1.025 (1.005-1.025) Urine Protein Negative (Neg-Trace) mg/dL Urine Glucose (UA) >=1000 H (Negative) mg/dL Urine Ketones Negative (Negative) mg/dL Urine Blood Negative (Negative) Urine Nitrite Negative (Negative) Ur Leukocyte Esterase Trace H (Negative) Urine RBC 0-2 (0-2) /HPF Urine WBC 6-10 (0-5) /HPF Ur Squamous Epith Cells 0-2 (0-2) /HPF Urine Bacteria 4+ (None Seen) Hyaline Casts 0-2 (0-2) /LPF Urine Opiates Screen Not Detected (Not Detect) Ur Buprenorphine Scrn Not Detected (Not Detect) ng/mL Ur Oxycodone Screen Not Detected (Not Detect) ng/mL Urine Methadone Screen Not Detected (Not Detect) ng/mL Urine Fentanyl Screen Not Detected (Not Detect) Ur Barbiturates Screen Not Detected (Not Detect) Ur Phencyclidine Scrn Not Detected (Not Detect) Ur Amphetamines Screen Not Detected (Not Detect) U Benzodiazepines Scrn Not Detected (Not Detect) Urine Cocaine Screen Not Detected (Not Detect) U Marijuana (THC) Screen Not Detected (Not Detect) Influenza Type A (PCR) NEGATIVE (Negative) Influenza Type B (PCR) NEGATIVE (Negative) RSV RNA Qual (PCR) NEGATIVE (Negative) SARS-CoV-2 RNA (RT-PCR) NEGATIVE (Negative) Independent Interpretation I performed an independent interpretation of an: EKG and CT Scan Interpretation: My interpretation of EKG: Atrial fibrillation, heart rate 103, right bundle branch block, QTC 466, no EKG changes compared to EKG of July of 2024 Radiology Impression Discussion of test interpretation with radiology: I have reviewed the radiologist's reading. Radiologist Impression: Chest findings in chest CT report. Degenerative change lumbar spine and hips. No acute bony abnormality noted. Liver and spleen within normal limits. Pancreas and adrenal glands unremarkable. Gallbladder within normal limits. No bilateral renal stone or hydronephrosis. No focal renal abnormality or ureteral dilation. Incidental horseshoe kidney variant. No evidence for aortic aneurysm. No free fluid or adenopathy in the pelvis. No diverticulitis. Appendix unremarkable. Independent Historian Clinical information obtained from an independent historian. History obtained from or confirmed by: Spouse External Record Review External record reviewed: Inpatient record Critical Care Time Critical Care Time Critical Care Time: Yes Total Critical Care Time: 90 Attestation: I have personally provided critical care time. Time includes review of lab data, radiology results, discussion with consultants, and monitoring for potential decompensation. Intervention performed as documented. Discharge Plan Discharge Clinical Impression: Sepsis, Dehydration, Pneumonia, Acute UTI Patient Disposition: Admitted As Inpatient Print Language: Lao
[2024-09-15 21:55] LABS: INTERNATIONAL NORM RATIO 2.1 (0.9-1.1); Prothrombin Time 24.2 SEC (10.9-12.4)
[2024-09-15 22:00] VITALS: TEMP 40.6
--- NOTE | 2024-09-15 22:00 | PC.NURSE ---
cooling blanket and ice packs placed.
[2024-09-15 22:03] LABS: Lactic Acid 7.1 mmol/L (0.5-2.0)
[2024-09-15 22:06] LABS: Alanine Aminotransferase 6 U/L (0-40); Albumin Level 3.2 g/dL (3.5-5.0); Alkaline Phosphatase 69 U/L (39-117); Anion Gap 23 (12-20); Aspartate Amino Transferase 28 U/L (5-37); Bilirubin Total 0.9 mg/dL (0.0-1.0); Blood Urea Nitrogen 22 mg/dL (9-16); Calcium 8.7 mg/dL (8.4-10.2); Carbon Dioxide 20 mmol/L (22-29); Chloride 98 mmol/L (96-108); Creatinine Clr Calc Pharmacy 77.7; Estimated Glomerular Filt Rate > 60; Glucose Random 191 mg/dL (60-115); Potassium 3.6 mmol/L (3.3-5.1); Sodium 137 mmol/L (135-145); Total Protein 6.9 g/dL (6.5-8.0)
[2024-09-15] MEDS: 0.9 % Sodium Chloride 2,307 ML 2307 ML IV (22:08)
[2024-09-15] MEDS: cefTRIAXone sodium 1 GM VIAL IVPUSH (22:08)
[2024-09-15 22:12] LABS: Troponin-I High Sensitivity 8.2 ng/L (<3.5-35.0)
[2024-09-15 22:17] LABS: SLIDE REVIEW VERIFIED
[2024-09-15] MEDS: Acetaminophen 1,000 MG/100 ML PIGGYBACK 400 MG IV (22:21)
[2024-09-15 22:24] LABS: Influenza A PCR NEGATIVE (Negative); Influenza B PCR NEGATIVE (Negative); Resp Syncy Virus RNA Qual PCR NEGATIVE (Negative); SARS COV2 PCR INHOUSE NEGATIVE (Negative)
--- NOTE | 2024-09-15 22:24 | PC.NURSE ---
Addendum entered by Joesph Belcher 09/15/24 22:48: 2234 - straight cath done approx 200mL dark yellow UO, pt tolerated well. sent to lab. Original Note: pt attempted to urinate at bedside, unable to. per md craven verbal to straight cath. pt in agreement.
[2024-09-15 22:49] LABS: Appearance Urine Clear; Color Urine Yellow; Glucose Urine UA >=1000 mg/dL (Negative); Leukocyte Esterase Urine Trace (Negative); Nitrite Urine Negative (Negative); PH 5.5 (5.0-9.0); Specific Gravity - Urine 1.025 (1.005-1.025); UMIC TRIGGER UACC YES; Urine Blood Negative (Negative); Urine Ketones Negative (Negative); Urine Protein Negative (Neg-Trace)
[2024-09-15 22:51] VITALS: TEMP 39.6
[2024-09-15 22:58] LABS: Amphetamine Screen Urine Not Detected (Not Detect); Barbiturates, Urine Not Detected (Not Detect); Benzodiazepines Screen Urine Not Detected (Not Detect); Buprenorphine Scr Not Detected (Not Detect); Cannabinoid Screen Urine Not Detected (Not Detect); Cocaine Screen Urine Not Detected (Not Detect); Fentanyl, urine Not Detected (Not Detect); Methadone Screen, Urine Not Detected (Not Detect); Opiate Screen Urine Not Detected (Not Detect); Oxycodone Screen Urine Not Detected (Not Detect); Phencyclidine Screen Urine Not Detected (Not Detect)
[2024-09-15 23:02] LABS: Bacteria Urine 4+ (None Seen); Hyaline Casts Urine 0-2 /LPF (0-2); RBC Urine 0-2 /HPF (0-2); Squamous Epithelial Cell Urine 0-2 /HPF (0-2); UACC Culture Trigger YES
[2024-09-15 23:18] VITALS: BP 94/50; PULSE 93; RESP 20; TEMP 39.1; O2SAT 88; O2SAT 91
--- NOTE | 2024-09-15 23:18 | PC.NURSE ---
MD aware of o2 and BP. pt placed on 2LNC. per md 1L NS and albumin for bp.
[2024-09-15] MEDS: 0.9 % Sodium Chloride 1,000 ML 999 ML IVCONT (23:32)
[2024-09-15] MEDS: Azithromycin 500 MG in 0.9 % Sodium Chloride 250 ML 125 MG IV (23:36)
[2024-09-15] MEDS: Albumin Human 25 % 100 ML 133.33 ML IV (23:38)
[2024-09-15 23:46] LABS: Reflex Lactate? Lactic Acid Added
[2024-09-15 23:54] LABS: B Type Natriuretic Peptide 149 pg/mL (<100)
[2024-09-16] VITALS (39 sets, daily range): BP systolic 84–128; BP diastolic 47–78; PULSE 51–89; RESP 16–26; TEMP 36.4–38.3; O2SAT 92–97; BMI 23.4
[2024-09-16 00:23] LABS: ~Lactic Acid-LAB USE ONLY 2.8 mmol/L (0.5-2.0)
[2024-09-16] MEDS: Albumin Human 25 % 100 ML 133.33 ML IV (00:25)
[2024-09-16] MEDS: Norepinephrine Bitartrate/D5W 8 MG/250 ML PLAST..BAG 7.21 MG IVCONT (00:37)
--- NOTE | 2024-09-16 00:52 | P.HPCC_ITS ---
History of Present Illness Date of Service: 09/16/24 Attending physician on admission: Trav Meraz Chief Complaint: Weakness ?The patient is a 69-year-old male with a past medical history of paroxysmal atrial flutter (on Eliquis), ? diabetes mellitus type 2 (on jardiance), history of MVP/mitral valve regurgitation s/p MVR with bioprosthetic valve, asthma/COPD overlap, hypertension, migraines, BPH, hyperlipidemia who presented to emergency department with complaints of weakness, fever, chills, body aches for x1 day.? According to patient?s symptoms worsening,? despite administration of 2000 mg of acetaminophen.?? ? reports 2 days ago patient had a CAT scan of the abdomen pelvis done because patient was complaining of generalized back pain, states the results were negative for any acute findings. ?On arrival to the emergency department patient?s? T high 105.1,? hypotensive to? systolic of 80s, hypoxic to 88% on room air, and tachypneic.? Patient noted to be lethargic,? but able to answer some questions.? ?Laboratory data significant for serum bicarb 20, anion gap 23, lactic 7.1 ?Urine positive for leukocyte esterase and glucose ?Viral panel negative IMAGING:? ?ABDOMINAL CT: no acute findings ED COURSE:? Received a total of 3.3 L bolus, 200 mL of albumin, 1000 mg IV Tylenol, ceftriaxone 1 g and azithromycin 500 mg.? Despite fluid administration patient required initiation of vasopressor support Review of Systems 2 Review of Systems: Yes all other systems are reviewed and are negative PMFSH Past Medical History Medical History CVA (cerebral vascular accident) Paroxysmal atrial flutter Prosthetic valve dysfunction Atrial flutter Elevated cholesterol History of GI diverticular bleed BPH (benign prostatic hyperplasia) History of blood transfusion GERD (gastroesophageal reflux disease) Type 2 diabetes mellitus Depression with anxiety PTSD (post-traumatic stress disorder) Migraine COPD, mild Asthma HTN (hypertension) Obstructive sleep apnea Enlarged RV (right ventricle) Mitral regurgitation Family History Family History Father Rheumatic fever Mother No problems noted. Sister Hx of aortic valve repair Brother Mitral valve replaced Surgical History Surgical History S/P MVR (mitral valve replacement) History of esophagogastroduodenoscopy (EGD) H/O colonoscopy History of excision of lesion (06/25/22) History of arthroscopy of right knee History of left inguinal hernia repair History of repair of right rotator cuff History of repair of left rotator cuff History of mitral valve replacement Hx of cardiac cath Social History Social History Household Members: Family Housing: House Do you presently have visiting nurse or other home services: No Alcohol intake: current Alcohol intake frequency: does not drink Comment: pt refusing precautions steady on feet Patient Tobacco Use Status: Former Tobacco user Smoked in Last 30 Days: No Patient Interested in Nicotine Replacement: No Second Hand Smoke Exposure: No Use of substances other than those prescribed or required for medical reasons: No Currently Displaying Signs/Symptoms of Drug Intoxication Withdrawal: No Have you been hit, kicked, punched, or otherwise hurt by someone within the past year? If so, by whom?: No Do you feel safe in your current relationship?: Yes Is there a partner from a previous relationship who is making you feel unsafe now?: No Are you made to feel afraid or neglected: No Advance Directives: Yes Advance Directives on File: Yes Advance Directives Date on File: 02/03/24 Do you have a plan to hurt others: No Plan Recently lost weight without trying: No How much weight loss: Unsure Eating poorly because of decreased appetite: No Nutrition screen score: 2 Nutrition Risks: No Nutritional Risk Poor oral hygiene: No service: No Current occupational status: retired Current occupation: ambidextrous, 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 Meds Allergies Allergy/AdvReac Type Severity Reaction Status Date / Time DUSTIN Inhibitors Allergy Severe Anaphylaxis Verified 09/15/24 21:16 [Dustin Inhibitors] pineapple [PINEAPPLE] Allergy Severe Angioedema Verified 09/15/24 21:16 thimerosal [Thimerosal] Allergy Severe Angioedema Verified 09/15/24 21:16 fluoxetine [From PROZAC] Allergy Intermediate REQUIRED Verified 09/15/24 21:16 HOSPITALIZATION Penicillins Allergy Intermediate Rash Verified 09/15/24 21:16 tamsulosin Allergy Mild tacycardia Verified 09/15/24 21:16 aspartame [ASPARTAME] Allergy Unknown Unknown Verified 09/15/24 21:16 hexachlorophene Allergy Unknown Unknown Verified 09/15/24 21:16 [From PHISOHEX] melon Allergy Unknown Unknown Verified 09/15/24 21:16 perfume Allergy Unknown Unknown Verified 09/15/24 21:16 povidone-iodine Allergy Unknown Unknown Verified 09/15/24 21:16 [From BETADINE] soap [Betadine] Allergy Unknown Unknown Verified 09/15/24 21:16 codeine [Codeine] AdvReac Intermediate wakes up Verified 09/15/24 21:16 combative meperidine [From Demerol] AdvReac Intermediate Hallucinati Verified 09/15/24 21:16 ons monosodium glutamate AdvReac Intermediate Headache Verified 09/15/24 21:16 morphine AdvReac Intermediate wakes up Verified 09/15/24 21:16 combative dexon Allergy Unknown Unknown Uncoded 09/15/24 21:16 GLUE IN SHOES Allergy Unknown UNKNOWN Uncoded 09/15/24 21:16 PLASTIC TAPE Allergy Unknown skin Uncoded 09/15/24 21:16 problems POLYGLACTIC ACID(DEXON & Allergy Unknown UNKNOWN Uncoded 09/15/24 21:16 VICRYL) vicryl Allergy Unknown Unknown Uncoded 09/15/24 21:16 Active Medications: Current Medications Albumin Human (Kedbumin 25 %) 100 mls @ 133.333 mls/hr IV Q1H [facility] Stop: 09/16/24 01:14 Last Admin: 09/16/24 00:25 Dose: 133.33 mls/hr Azithromycin 500 mg/ Sodium (Chloride) 250 mls @ 125 mls/hr IV ONCE ONE Stop: 09/16/24 01:27 Last Admin: 09/15/24 23:36 Dose: 125 mls/hr Norepinephrine Bitartrate (Levophed) 8 mg in 250 mls @ 0 mls/hr IVCONT .Q0M [facility]; Protocol Last Titration: 09/16/24 00:42 Dose: 0.07 mcg/kg/min, 10.09 mls/hr Home Medications ?Medication ?Instructions ?Recorded ?Confirmed ?Last Taken ?Type cholecalciferol (vitamin D3) 25 25 mcg PO DAILY 11/08/20 09/16/24 09/15/24 History mcg (1,000 unit) capsule clonazepam 0.5 mg tablet 0.25 - 0.5 mg PO DAILY PRN Anxiety 11/08/20 09/16/24 02/01/24 History finasteride 5 mg tablet 5 mg PO DAILY 11/08/20 09/16/24 09/15/24 History saw palmetto 160 mg capsule 160 mg PO DAILY 11/08/20 09/16/24 09/15/24 History fluticasone propionate 50 1 spray intranasal BID 02/13/21 09/16/24 09/15/24 History mcg/actuation nasal spray,suspension (Flonase Allergy Relief) omeprazole 20 mg capsule,delayed 40 mg PO BEDTIME@2100 01/30/23 09/16/24 09/15/24 History release apixaban 5 mg tablet (Eliquis) 5 mg PO BID 01/05/24 09/16/24 09/15/24 History terazosin 10 mg capsule 10 mg PO DAILY 02/03/24 09/16/24 09/15/24 History tadalafil 5 mg tablet (Cialis) 5 mg PO BEDTIME 03/04/24 09/16/24 09/15/24 History metformin 750 mg tablet,extended 750 mg PO BEDTIME 04/08/24 09/16/24 09/12/24 History release 24 hr diltiazem HCl 120 mg 120 mg PO BEDTIME 05/10/24 09/16/24 09/15/24 History capsule,extended release 24 hr atorvastatin 40 mg tablet 20 mg PO BEDTIME 08/14/24 09/16/24 09/15/24 History cyanocobalamin (vitamin B-12) 1,000 mcg PO DAILY 08/14/24 09/16/24 09/15/24 History 1,000 mcg tablet ketoconazole 2 % topical cream 1 appl topical DAILY PRN Rash 08/14/24 09/16/24 Unknown History miconazole nitrate 2 % topical 1 appl topical DAILY PRN Rash 08/14/24 09/16/24 Unknown History powder montelukast 10 mg tablet 10 mg PO BEDTIME 08/14/24 09/16/24 09/15/24 History acetaminophen 500 mg tablet 1,000 mg PO TID PRN Back Pain 09/16/24 09/16/24 Unknown History aspirin 81 mg tablet,delayed 81 mg PO MOWEFR 09/16/24 09/16/24 09/15/24 History release idsxlxuvtk-wjrmmsrhgteyx-ejfjzeut 1 tab PO Q6H PRN Migraine Headache 09/16/24 09/16/24 Unknown History 50 mg-325 mg-40 mg tablet cyclobenzaprine 10 mg tablet 10 mg PO BEDTIME PRN Back Pain 09/16/24 09/16/24 Unknown History diclofenac sodium 1 % topical gel 2 g topical QID PRN Pain 09/16/24 09/16/24 Unknown History ipratropium 20 mcg-albuterol 100 1 puff inhalation QID PRN 09/16/24 09/16/24 Unknown History mcg/actuation mist for inhalation Shortness Of Breath Or Wheezing mometasone 200 mcg/actuation HFA 2 puff inhalation BID 09/16/24 09/16/24 Unknown History aerosol inhaler Physical Exam 2 Vital Signs: Vital Signs: Last Vital Signs Temp 100.5 F H 09/16/24 00:49 Pulse 71 09/16/24 00:49 Resp 20 09/16/24 00:49 BP 100/55 L 09/16/24 00:49 Pulse Ox 93 09/16/24 00:49 O2 Del Method Nasal Cannula 09/16/24 00:49 O2 Flow Rate 2 09/16/24 00:49 BMI result Body Mass Index 24.3 SEPSIS FOCUS EXAM PERFORMED AT 0100 on 09/16/2024 ?General:? Lethargic, able to answer yes and no questions. ?HEENT:? Head is normocephalic, atraumatic, pupils equal round reactive to light accommodation bilaterally.? Buccal mucosa is dry, Neck is supple ?Cardiac:? AFib rate control, no murmurs rubs or gallops. ?Pulmonary:? Clear to auscultation, no wheezes, rales or rhonchi. ?Abdomen:? ?Abdomen soft, non-tender, non-distended. Normal bowel sounds. No pulsatile mass. No hepatosplenomegaly. ?Musculoskeletal:? Moving all 4 extremities upon request a major joints, there is no crepitus or tenderness.? The strength is 5/5 bilaterally and throughout all 4 extremities.? Gait not assessed at this point. ?Neurologic:? cranial nerves 2-12 are grossly intact.? No focal deficits noted.Motor strength as above.?? ?Skin:? Intact, no lesions, edema, erythema, clubbing or cyanosis.? No ulcers. Vascular:? 2+ pulses upper and lower extremities distally.? Results Labs 09/17/24 05:40 09/17/24 05:40 Labs: Laboratory Results - last 24 hr 09/15/24 09/15/24 09/15/24 21:37 22:34 23:55 MCV 81.2 MCH 27.4 MCHC 33.7 RDW 15.9 Plt Count 111 L MPV 9.2 L Immature Gran % (Auto) 0.5 H Neut % (Auto) 94.5 H Lymph % (Auto) 3.5 L [place] % (Auto) 1.1 L Eos % (Auto) 0.2 Baso % (Auto) 0.2 Lymph # (Auto) 0.2 L [place] # (Auto) 0.1 Eos # (Auto) 0.0 Baso # (Auto) 0.0 Abs Immat Gran (auto) 0.03 Absolute Neuts (auto) 5.9 Absolute Nucleated RBC 0.000 Nucleated RBC % (auto) 0.0 Smear Tech's Comments VERIFIED PT 24.2 H D INR 2.1 H Anion Gap 23 H Estim Creat Clear Calc 77.7 Estimated GFR > 60 Random Glucose 191 H Lactic Acid 7.1 H* Lactic Acid F/U @ 2Hr 2.8 H* Calcium 8.7 Total Bilirubin 0.9 AST 28 ALT 6 Alkaline Phosphatase 69 B-Natriuretic Peptide 149 H Total Protein 6.9 Albumin 3.2 L Urine Color Yellow Urine Appearance Clear Urine pH 5.5 Ur Specific [place] 1.025 Urine Protein Negative Urine Glucose (UA) >=1000 H Urine Ketones Negative Urine Blood Negative Urine Nitrite Negative Ur Leukocyte Esterase Trace H Urine RBC 0-2 Urine WBC 6-10 Ur Squamous Epith Cells 0-2 Urine Bacteria 4+ Hyaline Casts 0-2 Urine Opiates Screen Not Detected Ur Buprenorphine Scrn Not Detected Ur Oxycodone Screen Not Detected Urine Methadone Screen Not Detected Urine Fentanyl Screen Not Detected Ur Barbiturates Screen Not Detected Ur Phencyclidine Scrn Not Detected Ur Amphetamines Screen Not Detected U Benzodiazepines Scrn Not Detected Urine Cocaine Screen Not Detected U Marijuana (THC) Screen Not Detected Influenza Type A (PCR) NEGATIVE Influenza Type B (PCR) NEGATIVE RSV RNA Qual (PCR) NEGATIVE SARS-CoV-2 RNA (RT-PCR) NEGATIVE Assessment and Plan (1) Acute UTI: Status: Acute (2) Septic shock: Status: Acute Plan Neuro:? ?Lethargy:? related to septic shock,? should improve with correction of infection.? Cardiac:?? ?Septic shock- ? lactate elevated to 7.1, ? urine positive for UTI.? urosepsis likely the cause of UTI.? received appropriate fluid resuscitation in the emergency department.? We will continue antibiotics. Wean Levophed as tolerated? Pulmonary:?? ?No acute issues Renal:?? ?No acute issues GI:?? ?No acute issues Endo:?No acute issues Heme/Onc:? ?No acute? issues ID:? ?Septic shock/ uti:? received ceftriaxone in the emergency department.? Blood cultures are pending.? We will continue ceftriaxone? until cultures are resulted Psych:? No acute issues. Misc:? no acute issues Diet: cardiac Prophylaxis: ? Home eliquis? Code? status: ? ? FULL CODE.? Critical care time: x 60 min of critical care time?
--- NOTE | 2024-09-16 01:00 | PC.NURSE ---
pt states does not have to urinate, bladder scan showed 114mL.
--- NOTE | 2024-09-16 01:51 | PC.NURSE ---
cooling blanket removed per MANAGER SPRING.
[2024-09-16 01:58] LABS: Reflex Lactate? 2 Y
--- NOTE | 2024-09-16 02:15 | PC.NURSE ---
report given to [facility] WEB SITE SPECIALIST.
--- NOTE | 2024-09-16 02:16 | PC.NURSE ---
this RN carolyn labs with straight stick needle.
[2024-09-16 02:36] LABS: Anion Gap 15 (12-20); Beta-Hydroxybutyrate 1.13 mmol/L (0.02-0.27); Blood Urea Nitrogen 22 mg/dL (9-16); Calcium 7.7 mg/dL (8.4-10.2); Carbon Dioxide 22 mmol/L (22-29); Chloride 105 mmol/L (96-108); Estimated Glomerular Filt Rate > 60; Glucose Random 178 mg/dL (60-115); Magnesium 1.7 mg/dL (1.6-2.6); Phosphorus 2.3 mg/dL (2.7-4.5); Potassium 2.8 mmol/L (3.3-5.1); Sodium 139 mmol/L (135-145)
[2024-09-16] MEDS: Potassium Phosphate/NS 15 MMOL/250 ML PLAST..BAG 62.5 MMOL IV (03:00)
[2024-09-16] MEDS: Potassium Chloride Packet 20 MEQ PACKET 80 MEQ PO (03:00)
[2024-09-16 05:25] LABS: VBG Base Excess -0.2 mmol/L; VBG HCO3 21 mmol/L (22-26); VBG pCO2 28 mmHg; VBG pO2 196 mmHg
[2024-09-16 05:30] LABS: Basophils Percent Auto 0.2 % (0-2); Hemoglobin 10.5 g/dl (14.0-18.0); Imm Gran Abs Auto 0.09 X10*3/uL (0.00-0.03); Imm Gran Pct Auto 0.7 % (0.0-0.4); Lymphocytes Absolute Auto 0.4 X10*3/uL (1.2-4.9); Lymphocytes Percent Auto 2.6 % (20-40); MANUAL DIFF FLAG SCAN; Mean Corpuscular HGB Conc 33.9 g/dl (31.0-36.0); Mean Corpuscular Hemoglobin 27.6 pg (27.0-33.0); Mean Corpuscular Volume 81.6 fL (80.0-98.0); Mean Platelet Volume 9.7 fL (9.4-12.4); Monocytes Absolute Auto 0.8 X10*3/uL (0.1-1.2); Monocytes Percent Auto 5.6 % (2-11); Neutrophils Absolute Auto 12.2 x10*3/uL (2.0-8.3); Neutrophils Percent Auto 90.9 % (45-73); Red Cell Distribution Width 16.1 % (11.0-16.0); SCAN SMEAR FLAG 1; White Blood Count 13.4 X10*3/uL (4.8-10.8)
[2024-09-16 05:31] LABS: Platelet Count 97 X10*3/uL (160-400)
[2024-09-16 06:01] LABS: Alanine Aminotransferase 20 U/L (0-40); Albumin Level 3.1 g/dL (3.5-5.0); Alkaline Phosphatase 68 U/L (39-117); Anion Gap 16 (12-20); Aspartate Amino Transferase 48 U/L (5-37); Bilirubin Total 0.8 mg/dL (0.0-1.0); Blood Urea Nitrogen 20 mg/dL (9-16); Calcium 7.7 mg/dL (8.4-10.2); Carbon Dioxide 20 mmol/L (22-29); Chloride 107 mmol/L (96-108); Creatinine Clr Calc Pharmacy 102.8; Estimated Glomerular Filt Rate > 60; Glucose Random 231 mg/dL (60-115); Magnesium 1.7 mg/dL (1.6-2.6); Phosphorus 3.6 mg/dL (2.7-4.5); Potassium 4.7 mmol/L (3.3-5.1); Sodium 138 mmol/L (135-145); Total Protein 5.8 g/dL (6.5-8.0)
[2024-09-16 06:07] LABS: Venous Blood Gas Refer to POC result
[2024-09-16] MEDS: Albumin Human 25 % 100 ML IV ×2 (07:35→14:34)
--- NOTE | 2024-09-16 08:55 | PHA.MEDREC ---
Addendum entered by Cassidy Mitchell RPh 09/16/24 12:53: reviewed by [facility]: of note pt is giving him cyclobenzaprine tid even though rx says bedtime only because it works for her that way . Kept home meds as bedtime only due to concerns for increased sedation. Pt also gets clonazepam infrequently for anxiety and is still using tablets from rx in July 2023. Addendum entered by Nia Booker 09/16/24 12:04: Received med list from [facility] around 1100. I noticed Butalbital-Acetaminophen, Diclofenac and Ipratropium-Albuterol were on the list as active medications but the patients never confirmed those. I spoke again with the patient and and the was able to confirm the patient still uses these medications as needed. Original Note: Pharmacy Consult ? Medication Reconciliation Pharmacy reviewed med rec done by nursing. Spoke with patient and he informed he that he is apart of the [facility] and gets all his medications filled there and also stated his was coming in and could confirm the medications. The patient was able to confirm he takes Baby Aspirin on Mondays, Wednesdays and Fridays and confirmed he took yesterday. I faxed the [facility] to get a list this am. The came in and was able to confirm all the medications including doses. The confirmed the patients Jardiance 10mg tabs once at bedtime and confirmed they are getting that filled through [facility]. She also confirmed the pt last took the Metformin 750mg tab this past Tuesday 09/[address] appointment he had Friday which he got CT contrast in, the Dr stopped it for 3 days and the pt was suppose to start it again today. Will update med list if needed when we get a list from [facility].
[2024-09-16] MEDS: Cyclobenzaprine HCl 10 MG TABLET PO ×3 (09:12→20:13)
[2024-09-16] MEDS: Apixaban 5 MG TABLET PO ×2 (09:12→20:14)
[2024-09-16 11:15] LABS: Adenovirus PCR Not Detected (Not Detect.); Bordetella parapertussis PCR Not Detected (Not Detect.); Bordetella pertussis PCR Not Detected (Not Detect.); Chlamydia pneumoniae PCR Not Detected (Not Detect.); Coronavirus 229E PCR Not Detected (Not Detect.); Coronavirus HKU1 PCR Not Detected (Not Detect.); Coronavirus NL63 PCR Not Detected (Not Detect.); Coronavirus OC43 PCR Not Detected (Not Detect.); Human metapneumovirus PCR Not Detected (Not Detect.); Influenza A PCR Not Detected (Not Detect.); Influenza B PCR Not Detected (Not Detect.); Mycoplasma pneumoniae PCR Not Detected (Not Detect.); Parainfluenza 1 PCR Not Detected (Not Detect.); Parainfluenza 2 PCR Not Detected (Not Detect.); Parainfluenza 3 PCR Not Detected (Not Detect.); Parainfluenza 4 PCR Not Detected (Not Detect.); RSV PCR Not Detected (Not Detect.); Rhino/Enterovirus PCR Not Detected (Not Detect.)
--- NOTE | 2024-09-16 11:26 | MHC.CLN ---
PT WITH 18% SIGNIFICANT WT LOSS X 6 MONTHS-FAMILY MEMBER REPORTED SOME WT LOSS INTENTIONAL R/T DM WITH AIC >12% AND INITIATION OF OZEMPIC WHICH CAUSED INTENTIONAL/DESIRED WT LOSS, HOWEVER SOME UNINTENTIONAL WT LOSS FROM FLUID R/T CHF AND ACUTE ILLNESS WITH HOSPITALIZATIONS X2 PT DOES NOT APPEAR MALNOURISHED S/P NFPE NOTED REPORTED OZEMPIC STOPPED ON AUGUST 29, 2024 PT STATED HE WOULD LIKE TO MAINTAIN WT BETWEEN 150-160# WITHIN IBW RANGE, HOWEVER REPORTS PT WITH POOR PO INTAKE AT HOME RESEARCH QUALITY ASSURANCE SPECIALIST PT CURRENTLY ON CARDIAC DIET PT DRINKS ENSURE PLUS VANILLA AT HOME AND ALTHOUGH HE DISLIKES HE DOES DRINK IT TO INCREASE KCALS PT RECEPTIVE TO TRIAL OF MAGIC CUP TID WITH MEALS AND WILL CONTINUE ENSURES MONITOR PO INTAKE AND GOAL FOR WT MAINTENANCE SEE ALSO FULL CLINICAL NUTRITION ASSESSMENT
[2024-09-16 11:52] LABS: Influenza A H1 PCR Not Detected (Not Detect.); Influenza A H1-2009 PCR Not Detected (Not Detect.); Influenza A H3 PCR Not Detected (Not Detect.); SARS-CoV-2 PCR Not Detected (Not Detect.)
[2024-09-16] MEDS: Lidocaine 4 % Patch ADH..PATCH 2 PATCH TRANSDERMA (11:57)
[2024-09-16] MEDS: Acetaminophen 325 MG TABLET 975 MG PO ×2 (14:34→20:14)
--- NOTE | 2024-09-16 14:37 | MHC.CM.PN ---
Pt admitted to ICU for pressor support in the setting of UTI/sepsis. Pt resides at home w/family and is independent with all care needs. He has no services or DME. Family to transport to home. HCP on file
--- NOTE | 2024-09-16 17:45 | PC.NURSE ---
Assumed care at 0700- norepinephrine gtt weaned off per JUL. Albumin given x2. SBPs 80s-90s with MAPs >65- MD aware. Pt. A&Ox4, c/o back spasms-PRN tylenol and flexeril administered per JUL with good effect per pt. Afib on tele, HR 40s-70s with occasional PVCs. Pt weaned to RA, O2 sats >92%. LS CTA, no c/o sob, RR 16-24. Pt. 1 ast oob to commode, tolerates activity well. Family at bedside, updated by MD and this RN. Plan of care ongoing.
[2024-09-16] MEDS: cefTRIAXone sodium 1 GM VIAL IVPUSH (20:13)
[2024-09-16] MEDS: Omeprazole 40 MG CAPSULE.DR PO (20:48)
[2024-09-16] MEDS: Montelukast Sodium 10 MG TABLET PO (20:49)
[2024-09-16] MEDS: Atorvastatin Calcium 20 MG TABLET PO (20:49)
[2024-09-17] VITALS (24 sets, daily range): BP systolic 94–146; BP diastolic 61–81; PULSE 51–99; RESP 16–26; TEMP 36.2–38.9; O2SAT 88–97; BMI 23.8
[2024-09-17] MEDS: Norepinephrine Bitartrate/D5W 8 MG/250 ML PLAST..BAG 4.33 MG IVCONT (05:39)
[2024-09-17 05:47] LABS: VBG Base Excess 2.8 mmol/L; VBG HCO3 25 mmol/L (22-26); VBG pCO2 32 mmHg; VBG pH 7.49 (7.32-7.43); VBG pO2 52 mmHg
[2024-09-17 05:48] LABS: MANUAL DIFF FLAG NO
[2024-09-17 05:55] LABS: Basophils Percent Auto 0.5 % (0-2); Eosinophils Percent Auto 0.5 % (0-4); Hematocrit 31.9 % (42.0-52.0); Hemoglobin 10.6 g/dl (14.0-18.0); Imm Gran Abs Auto 0.04 X10*3/uL (0.00-0.03); Imm Gran Pct Auto 0.5 % (0.0-0.4); Lymphocytes Absolute Auto 0.5 X10*3/uL (1.2-4.9); Lymphocytes Percent Auto 6.2 % (20-40); Mean Corpuscular HGB Conc 33.2 g/dl (31.0-36.0); Mean Corpuscular Hemoglobin 27.7 pg (27.0-33.0); Mean Corpuscular Volume 83.3 fL (80.0-98.0); Mean Platelet Volume 9.5 fL (9.4-12.4); Monocytes Absolute Auto 0.5 X10*3/uL (0.1-1.2); Monocytes Percent Auto 5.6 % (2-11); Neutrophils Absolute Auto 7.6 x10*3/uL (2.0-8.3); Neutrophils Percent Auto 86.7 % (45-73); Red Blood Count 3.83 X10*6/uL (4.60-5.80); Red Cell Distribution Width 16.3 % (11.0-16.0); White Blood Count 8.7 X10*3/uL (4.8-10.8)
[2024-09-17 06:06] LABS: Platelet Count 82 X10*3/uL (160-400)
[2024-09-17 06:11] LABS: Albumin Level 3.4 g/dL (3.5-5.0); Anion Gap 12 (12-20); Blood Urea Nitrogen 12 mg/dL (9-16); Calcium 8.4 mg/dL (8.4-10.2); Carbon Dioxide 24 mmol/L (22-29); Chloride 105 mmol/L (96-108); Creatinine Clr Calc Pharmacy 124.9; Estimated Glomerular Filt Rate > 60; Glucose Random 164 mg/dL (60-115); Magnesium 1.7 mg/dL (1.6-2.6); Phosphorus 2.3 mg/dL (2.7-4.5); Potassium 3.6 mmol/L (3.3-5.1); Sodium 137 mmol/L (135-145)
--- NOTE | 2024-09-17 06:18 | PC.NURSE ---
Assumed care at 1900. Patient is alert and oriented x4, very pleasant though occasionally forgetful. Slow Afib on tele, HR 50s-70s. Levophed gtt running per MAR for MAP goal > 65. Lung sounds clear to auscultation, saturating well on room air. Abdomen large and round, bowel sounds active x4. Patient able to ambulate 1 assist up to use the commode/urinal. Skin warm dry and intact. Patient reports intermittent back pain/spasms, well controlled with PRN TID tylenol and flexeril, see MAR. Patient resting comfortably in bed, bed alarm off per patient request, call butler within reach.
[2024-09-17 06:27] LABS: Venous Blood Gas Refer to POC result
[2024-09-17] MEDS: Potassium Phosphate/NS 15 MMOL/250 ML PLAST..BAG 62.5 MMOL IV (08:47)
[2024-09-17] MEDS: Acetaminophen 325 MG TABLET 975 MG PO ×2 (08:47→20:56)
[2024-09-17] MEDS: Cyclobenzaprine HCl 10 MG TABLET PO ×2 (08:51→20:55)
[2024-09-17] MEDS: Apixaban 5 MG TABLET PO ×2 (08:52→20:50)
--- NOTE | 2024-09-17 11:24 | PM.CCPN ---
Subjective Subjective Date of Service: 09/17/24 Interval History: 69-year-old gentleman with underlying history of paroxysmal AFib on Eliquis, diabetes mellitus type 2, history of MVP/MVR status post replacement with bioprosthetic valve, asthma/COPD overlap, BPH admitted on 09/16/2024 with septic shock with likely UTI source and resultant Gram-positive bacteremia with poor response to initial IV fluid resuscitation requiring pressor support. No events overnight. Titrated off pressor support. Critical Care Time (minutes): 30 Physical Exam Vital Signs: Vital Signs: Last Vital Signs Temp 97.2 F 09/17/24 08:00 Pulse 85 09/17/24 11:00 Resp 25 H 09/17/24 11:00 BP 96/61 09/17/24 11:00 Pulse Ox 92 09/17/24 11:00 O2 Del Method Room Air 09/17/24 11:00 O2 Flow Rate 1 09/17/24 05:00 BMI result Body Mass Index 23.8 Const: General: no acute distress, alert and awake Eyes: Sclerae: sclerae normal EOM: EOMs intact bilaterally Neck: Neck: Yes no lymphadenopathy, Yes trachea midline and Yes supple Resp: Effort & Inspection: normal respiratory effort and no respiratory distress Auscultation: clear to auscultation bilaterally Cardio: Rate: regular rate Rhythm: regular rhythm Heart sounds: no gallops, no murmurs and no rubs GI: Palpation (GI): Soft to palpation and Other GI palpation findings present ( Nontender) Auscultation: normal bowel sounds Extrem: General: Yes no pedal edema, No clubbing and No cyanosis Objective Data Labs 09/17/24 05:40 09/17/24 05:40 Labs: Laboratory Results - last 24 hr 09/16/24 09/17/24 09/17/24 02:07 05:40 05:43 WBC 8.7 RBC 3.83 L Hgb 10.6 L Hct 31.9 L MCV 83.3 MCH 27.7 MCHC 33.2 RDW 16.3 H Plt Count 82 L MPV 9.5 Immature Gran % (Auto) 0.5 H Neut % (Auto) 86.7 H Lymph % (Auto) 6.2 L [place] % (Auto) 5.6 Eos % (Auto) 0.5 Baso % (Auto) 0.5 Lymph # (Auto) 0.5 L [place] # (Auto) 0.5 Eos # (Auto) 0.0 Baso # (Auto) 0.0 Abs Immat Gran (auto) 0.04 H Absolute Neuts (auto) 7.6 Absolute Nucleated RBC 0.000 Nucleated RBC % (auto) 0.0 VBG pH 7.49 H VBG pCO2 32 VBG pO2 52 VBG HCO3 25 VBG O2 Saturation 83.0 VBG Base Excess 2.8 Sodium 137 Potassium 3.6 D Chloride 105 Carbon Dioxide 24 Anion Gap 12 BUN 12 Creatinine 0.56 Estim Creat Clear Calc 124.9 Estimated GFR > 60 Random Glucose 164 H Calcium 8.4 D Phosphorus 2.3 L Magnesium 1.7 Albumin 3.4 L Respiratory Panel Capps See Note Adenovirus (Rapid PCR) Not Detected B.pert (TEM-PCR) Not Detected B.parapertussis DNA PCR Not Detected C. pneumoniae DNA (PCR) Not Detected Coronavirus OC43 (PCR) Not Detected Coronavirus HKU1 (PCR) Not Detected Coronavirus 229E (PCR) Not Detected Coronavirus NL63 (PCR) Not Detected Human Metapneumovir PCR Not Detected Influenza A (RT-PCR) Not Detected Influenza A (H1) PCR Not Detected Influ A (H1/09) PCR Not Detected Influenza A (H3) PCR Not Detected Influenza B (RT-PCR) Not Detected M. pneumoniae (PCR) Not Detected Parainfluenza 1 (PCR) Not Detected Parainfluenza 2 (PCR) Not Detected Parainfluenza 3 (PCR) Not Detected Parainfluenza 4 (PCR) Not Detected RSV (PCR) Not Detected Entero/Rhino (PCR) Not Detected SARS-CoV-2 RNA (RT-PCR) Not Detected Microbiology Microbiology Results: Microbiology 09/15/24 Unknown Urine clean catch - Clean Catch Midstream Urine Culture - Preliminary Enterococcus/Streptococcus sp 09/15/24 21:45 Blood - Venous Blood Culture - Preliminary Enterococcus/Streptococcus sp 09/15/24 21:37 Blood - Venous Blood Culture - Preliminary Enterococcus/Streptococcus sp Progress Note: A&P Assessment and plan (1) Gram-positive bacteremia: Status: Acute (2) Acute UTI: Status: Acute (3) Type 2 diabetes mellitus: Status: Acute (4) Atrial flutter: Status: Acute Plan Assessment: 68 old gentleman septic shock secondary to Gram-positive bacteremia with source initially requiring pressor support. Plan: Neuro: No acute issues. Cardiac: Septic shock, resolved. Underlying history of hypertension and paroxysmal AFib on anticoagulation. Pulmonary: No acute issues. Renal: No acute issues. Endo: No acute issues. GI: No acute issues. ID: Streptococcal/enterococcal UTI with bacteremia, ceftriaxone switched to vancomycin. Heme/Onc: No acute issues. Psych: No acute issues. Miscellaneous: No acute issues. Prophylaxis: Eliquis Diet: Regular Critical care time spent: 30 minutes Quality Stroke Does the patient have a stroke diagnosis?: No VTE Prior VTE?: No VTE Risk Level:: Medical - moderate - high VTE Device Contraindication: N/A - Device Ordered VTE Drug Contraindication: N/A - Med Ordered
[2024-09-17] MEDS: Aspirin Enteric Coated 81 MG TABLET.DR PO (11:29)
--- NOTE | 2024-09-17 12:17 | MHC.CLN ---
F/U PT WITH 18% SIGNIFICANT WT LOSS X 6 MONTHS SEE FULL CLINICAL NUTRITION ASSESSMENT DATED 09/16/24 NSG REPORTED PT ATE 80% OF BREAKFAST TODAY DIET RX; CARDIAC DIET PT DRINKS ENSURE PLUS VANILLA AT HOME AND ALTHOUGH HE DISLIKES HE DOES DRINK IT TO INCREASE KCALS PT RECEIVING MAGIC CUP TID WITH MEALS AND WILL CONTINUE ENSURES MONITOR PO INTAKE AND GOAL FOR WT MAINTENANCE
[2024-09-17] MEDS: vancomycin/NS 2,000 MG/500 ML PLAST..BAG 250 MG IV (12:37)
[2024-09-17] MEDS: Albumin Human 25 % 100 ML IV ×3 (12:38→23:49)
--- NOTE | 2024-09-17 13:42 | PHA.PROG ---
Admission Date/Time: September 16, 2024 00:53 Indication: Bacteremia Weight in k.1 kg Adjusted body weight in Kg: [place] body weight in Kg: Obesity Dosing Indication % IBW:BMI 23.8 Serum Creatinine - Last 168 Hours 09/15/24 09/16/24 09/16/24 21:37 02:07 05:21 Creatinine 0.90 0.76 0.68 09/17/24 05:40 Creatinine 0.56 Estimated CrCl and GFR - Last 168 Hours 09/15/24 09/16/24 09/16/24 21:37 02:07 05:21 Estim Creat Clear Calc 77.7 92.0 102.8 Estimated GFR > 60 > 60 > 60 09/17/24 05:40 Estim Creat Clear Calc 124.9 Estimated GFR > 60 Vancomycin Loading Dose: 2000mg X1 Current Vancomycin Dosing Regimen: 1250mg Q12H Vancomycin Monitoring using AUC goal of 400 - 600 range with trough as surrogate marker: 526 Date and Time for next Vancomycin Level to be drawn: 09/18 @1100 Pharmacist Comments on Vancomycin Plan: Pt renal function and weight are normal, targeting predicted trough of 15.6. To be adjusted as needed after trough and based on renal function stability. Vancomycin dosing will take advantage of [employer] as a clinical decision support tool that uses Bayesian modeling to calculate individual patient's pharmacokinetic parameters and forecast the patient's drug concentration time course with the target goal AUC 24 range of 400 - 600 mg/L/hr.
--- NOTE | 2024-09-17 15:00 | MHC.CM.PN ---
Pt continues ICU care for septic shock (UTI) - Levo to be titrated down. Pt from home w/family. CM to follow for finalization of d/c needs.
[2024-09-17] MEDS: Atorvastatin Calcium 20 MG TABLET PO (20:50)
[2024-09-17] MEDS: Montelukast Sodium 10 MG TABLET PO (20:50)
[2024-09-17] MEDS: Omeprazole 40 MG CAPSULE.DR PO (20:50)
[2024-09-18] MEDS: vancomycin HCL 1,250 MG in 0.9 % Sodium Chloride 250 ML 166.67 MG IV (02:55)
[2024-09-18 03:55] VITALS: BP 100/74; PULSE 101; RESP 16; TEMP 37.2; O2SAT 89
[2024-09-18] MEDS: Albumin Human 25 % 100 ML IV (05:54)
[2024-09-18 06:00] VITALS: BMI 23.7
[2024-09-18 06:23] LABS: MANUAL DIFF FLAG NO
[2024-09-18 06:27] LABS: Basophils Percent Auto 0.3 % (0-2); Hematocrit 29.8 % (42.0-52.0); Imm Gran Abs Auto 0.12 X10*3/uL (0.00-0.03); Imm Gran Pct Auto 1.1 % (0.0-0.4); Lymphocytes Absolute Auto 0.6 X10*3/uL (1.2-4.9); Lymphocytes Percent Auto 5.5 % (20-40); Mean Corpuscular HGB Conc 33.6 g/dl (31.0-36.0); Mean Corpuscular Hemoglobin 27.6 pg (27.0-33.0); Mean Corpuscular Volume 82.3 fL (80.0-98.0); Mean Platelet Volume 9.8 fL (9.4-12.4); Monocytes Absolute Auto 0.6 X10*3/uL (0.1-1.2); Monocytes Percent Auto 5.8 % (2-11); Neutrophils Absolute Auto 9.3 x10*3/uL (2.0-8.3); Neutrophils Percent Auto 87.3 % (45-73); Red Blood Count 3.62 X10*6/uL (4.60-5.80); Red Cell Distribution Width 16.2 % (11.0-16.0); White Blood Count 10.7 X10*3/uL (4.8-10.8)
[2024-09-18 06:31] LABS: Platelet Count 67 X10*3/uL (160-400)
[2024-09-18 06:47] LABS: Albumin Level 3.7 g/dL (3.5-5.0); Anion Gap 14 (12-20); Blood Urea Nitrogen 17 mg/dL (9-16); Calcium 8.7 mg/dL (8.4-10.2); Carbon Dioxide 21 mmol/L (22-29); Chloride 107 mmol/L (96-108); Creatinine Clr Calc Pharmacy 94.5; Estimated Glomerular Filt Rate > 60; Glucose Random 208 mg/dL (60-115); Magnesium 1.7 mg/dL (1.6-2.6); Phosphorus 3.6 mg/dL (2.7-4.5); Potassium 4.4 mmol/L (3.3-5.1); Sodium 138 mmol/L (135-145)
[2024-09-18 08:00] VITALS: BP 104/71; PULSE 72; RESP 18; TEMP 36.5; O2SAT 92
[2024-09-18] MEDS: Cyclobenzaprine HCl 10 MG TABLET PO ×2 (08:39→21:03)
[2024-09-18] MEDS: Apixaban 5 MG TABLET PO ×2 (08:40→21:02)
[2024-09-18 11:30] LABS: Vancomycin Random 13.5 mcg/mL (15-20)
--- NOTE | 2024-09-18 11:57 | HE.PHANOTE ---
RE: VANCO DOSING Trough came back as 13.5 mg/L and renal function is declining. Continue with 1250 mg q12h, next trough is scheduled for 09/19/24 @1100.
[2024-09-18 12:00] VITALS: BP 100/73; PULSE 77; RESP 18; TEMP 36.7; O2SAT 97
[2024-09-18] MEDS: oxyBUTYnin chloride ER 5 MG TAB.ER.24 PO (12:13)
[2024-09-18] MEDS: vancomycin HCL 1,250 MG in 0.9 % Sodium Chloride 250 ML 166.66 MG IV (12:14)
[2024-09-18] MEDS: Fluticasone Propionate Nasal 16 GM SPRAY 1 SPRAY NOSTRIL-B (12:14)
--- NOTE | 2024-09-18 14:56 | HO.PM.IMPN ---
Subjective Subjective Date of Service: 09/18/24 Interval History: No acute issues overnight. Review of Systems Denies chest pain Denies shortness of breath Denies nausea vomiting diarrhea Denies fever chills Physical Exam Vital Signs: Vital Signs: Last Vital Signs Temp 98.0 F 09/18/24 12:00 Pulse 77 09/18/24 12:00 Resp 18 09/18/24 12:00 BP 100/73 09/18/24 12:00 Pulse Ox 97 09/18/24 12:00 O2 Del Method Room Air 09/18/24 12:00 O2 Flow Rate 1 09/17/24 05:00 BMI result Body Mass Index 23.7 Const: Other: Awake alert no acute distress Resp: Other: Bilateral basilar end inspiratory crackles Cardio: Other: No S4; positive S1-S2; no S3 GI: Other: Soft nontender nondistended normoactive bowel sounds Extrem: Other: No edema bilaterally Objective Data Active Medications Acetaminophen (Acetaminophen 325 Mg Tablet) 975 mg PO TID PRN PRN Reason: Pain, Moderate(Pain Scale 4-6) Last Admin: 09/17/24 20:56 Dose: 975 mg Documented By: ELA Apixaban (Apixaban 5 Mg Tablet) 5 mg PO BID [facility] Last Admin: 09/18/24 08:40 Dose: 5 mg Documented By: BRITT Aspirin (Aspirin Enteric Coated 81 Mg Tablet.) 81 mg PO MOWEFR [facility] Last Admin: 09/17/24 11:29 Dose: 81 mg Documented By: SOFI Comments: medication was unavailable Atorvastatin Calcium (Atorvastatin Calcium 20 Mg Tablet) 20 mg PO BEDTIME [facility] Last Admin: 09/17/24 20:50 Dose: 20 mg Documented By: ELA Cyclobenzaprine HCl (Cyclobenzaprine Hcl 10 Mg Tablet) 10 mg PO TID PRN PRN Reason: Muscle Spasm Last Admin: 09/18/24 08:39 Dose: 10 mg Documented By: BRITT Fluticasone Propionate (Fluticasone Propionate Nasal 16 Gm [place]) 1 spray NOSTRIL-B BID [facility] Last Admin: 09/18/24 12:14 Dose: 1 spray Documented By: BRITT Vancomycin HCl 1,250 mg/ (Sodium Chloride) 250 mls @ 166.667 mls/hr IV Q12H [facility] Last Infusion: 05/03/25 13:49 Dose: Infused Documented By: BRITT Lactated Ringer's (Lr) 1,000 mls @ 100 mls/hr IVCONT .Q10H [facility] Lidocaine (Lidocaine 4 % Patch Adh..Patch) 2 patch TRANSDERMA DAILY [facility]; Protocol Last Admin: 09/18/24 08:41 Dose: Not Given Documented By: BRITT Non-Admin Reason: Patient Refused Montelukast Sodium (Montelukast Sodium 10 Mg Tablet) 10 mg PO BEDTIME [facility] Last Admin: 09/17/24 20:50 Dose: 10 mg Documented By: ELA Omeprazole (Omeprazole 40 Mg Capsule.Dr) 40 mg PO BEDTIME@2100 [facility] Last Admin: 09/17/24 20:50 Dose: 40 mg Documented By: ELA Oxybutynin Chloride (Oxybutynin Chloride Er 5 Mg Tab.Er.24) 5 mg PO DAILY [facility] Last Admin: 09/18/24 12:13 Dose: 5 mg Documented By: BRITT Pharmacy Consult (Consult Rx Vancomycin Dosing) 1 each MISCELLANE DAILY PRN PRN Reason: Consult order Labs 09/18/24 06:10 09/18/24 06:10 Labs: Laboratory Results - last 24 hr 09/18/24 09/18/24 06:10 11:05 MCV 82.3 MCH 27.6 MCHC 33.6 RDW 16.2 H Plt Count 67 L MPV 9.8 Immature Gran % (Auto) 1.1 H Neut % (Auto) 87.3 H Lymph % (Auto) 5.5 L [place] % (Auto) 5.8 Eos % (Auto) 0.0 Baso % (Auto) 0.3 Lymph # (Auto) 0.6 L [place] # (Auto) 0.6 Eos # (Auto) 0.0 Baso # (Auto) 0.0 Abs Immat Gran (auto) 0.12 H Absolute Neuts (auto) 9.3 H Absolute Nucleated RBC 0.000 Nucleated RBC % (auto) 0.0 Anion Gap 14 Estim Creat Clear Calc 94.5 Estimated GFR > 60 Random Glucose 208 H Calcium 8.7 Phosphorus 3.6 Magnesium 1.7 Albumin 3.7 Random Vancomycin 13.5 L Microbiology Microbiology Results: Microbiology 09/17/24 09:59 Blood Culture - Preliminary Blood - Venous Prelim: GPC Gram Stain only 09/17/24 09:59 Blood Culture - Preliminary Blood - Venous No growth after 24 hours. 09/15/24 21:45 Blood Culture - Final Blood - Venous Enterococcus faecalis 09/15/24 21:37 Blood Culture - Final Blood - Venous Enterococcus faecalis 09/15/24 Unknown Urine Culture - Final Urine clean catch - Clean Catch Midstream Enterococcus faecalis Assessment and Plan (1) Septic shock: Status: Acute (2) Gram-positive bacteremia: Status: Acute (3) Type 2 diabetes mellitus: Status: Acute Plan 69-year-old male with a past medical history of paroxysmal atrial flutter (on Eliquis), ? diabetes mellitus type 2 (on jardiance), history of MVP/mitral valve regurgitation s/p MVR with bioprosthetic valve, asthma/COPD overlap, hypertension, migraines, BPH, hyperlipidemia who presented to emergency department with complaints of weakness, fever, chills, body aches for x1 day.? 1. Septic shock secondary to Enterococcus bacteremia/UTI -vancomycin (1)... Thrombocytopenic. We will discuss antibiotic choice with ID -repeat cultures 1/2 positive GPC -await final results 2. Paroxysmal atrial fibrillation -acceptable control at this time -continue Eliquis/other outpatient therapies 3. Diabetes type 2 -lispro correctional scale -add back orals as appropriate -adjust as indicated 4. Dysphagia -speech consult Full code Eliquis Patient requires ongoing hospitalization for IV antibiotics to treat Enterococcus bacteremia Quality Stroke Does the patient have a stroke diagnosis?: No VTE Prior VTE?: No VTE Risk Level:: Medical - moderate - high VTE Device Contraindication: N/A - Device Ordered VTE Drug Contraindication: N/A - Med Ordered
[2024-09-18] MEDS: Lactated Ringers 1,000 ML 100 ML IVCONT (15:22)
[2024-09-18 15:44] VITALS: BP 114/64; PULSE 64; RESP 20; TEMP 36.7; O2SAT 95
[2024-09-18 18:46] VITALS: O2SAT 95
[2024-09-18 19:38] VITALS: BP 103/73; PULSE 95; RESP 18; TEMP 36.7; O2SAT 95
[2024-09-18] MEDS: Omeprazole 40 MG CAPSULE.DR PO (21:02)
[2024-09-18] MEDS: Montelukast Sodium 10 MG TABLET PO (21:02)
[2024-09-18] MEDS: Atorvastatin Calcium 20 MG TABLET PO (21:02)
[2024-09-18] MEDS: Acetaminophen 325 MG TABLET 975 MG PO (21:04)
[2024-09-19] VITALS (9 sets, daily range): BP systolic 106–136; BP diastolic 61–83; PULSE 64–128; RESP 16–22; TEMP 35.5–38.5; O2SAT 90–96; BMI 23.8
[2024-09-19] MEDS: Lactated Ringers 1,000 ML 100 ML IVCONT ×3 (01:14→23:42)
[2024-09-19] MEDS: vancomycin HCL 1,250 MG in 0.9 % Sodium Chloride 250 ML 166.67 MG IV ×2 (01:25→11:43)
[2024-09-19 07:54] LABS: Creatinine Clr Calc Pharmacy 137.1; Estimated Glomerular Filt Rate > 60
[2024-09-19] MEDS: oxyBUTYnin chloride ER 5 MG TAB.ER.24 PO (08:08)
[2024-09-19] MEDS: Fluticasone Propionate Nasal 16 GM SPRAY 1 SPRAY NOSTRIL-B (08:09)
[2024-09-19] MEDS: Apixaban 5 MG TABLET PO ×2 (08:09→20:13)
[2024-09-19] MEDS: Acetaminophen 325 MG TABLET 975 MG PO ×2 (08:17→18:29)
[2024-09-19] MEDS: Cyclobenzaprine HCl 10 MG TABLET PO ×2 (08:17→18:29)
[2024-09-19 08:19] LABS: MANUAL DIFF FLAG NO
[2024-09-19 08:23] LABS: Basophils Percent Auto 0.4 % (0-2); Eosinophils Absolute Auto 0.1 X10*3/uL (0.0-0.4); Eosinophils Percent Auto 1.3 % (0-4); Hematocrit 30.4 % (42.0-52.0); Imm Gran Abs Auto 0.04 X10*3/uL (0.00-0.03); Imm Gran Pct Auto 0.5 % (0.0-0.4); Lymphocytes Absolute Auto 0.7 X10*3/uL (1.2-4.9); Lymphocytes Percent Auto 8.5 % (20-40); Mean Corpuscular HGB Conc 32.9 g/dl (31.0-36.0); Mean Corpuscular Hemoglobin 27.5 pg (27.0-33.0); Mean Corpuscular Volume 83.5 fL (80.0-98.0); Mean Platelet Volume 10.1 fL (9.4-12.4); Monocytes Absolute Auto 0.5 X10*3/uL (0.1-1.2); Neutrophils Absolute Auto 6.6 x10*3/uL (2.0-8.3); Neutrophils Percent Auto 83.3 % (45-73); Red Blood Count 3.64 X10*6/uL (4.60-5.80); Red Cell Distribution Width 16.3 % (11.0-16.0); White Blood Count 7.9 X10*3/uL (4.8-10.8)
[2024-09-19 08:26] LABS: Platelet Count 79 X10*3/uL (160-400)
[2024-09-19 08:30] LABS: Anion Gap 15 (12-20); Carbon Dioxide 22 mmol/L (22-29); Chloride 106 mmol/L (96-108); Sodium 139 mmol/L (135-145)
[2024-09-19 09:51] LABS: Vancomycin Random 17.1 mcg/mL (15-20)
--- NOTE | 2024-09-19 10:33 | HE.PHANOTE ---
RE: VANCO DOSING Random came back as 17.1 mg/L @0926 (even though trough was scheduled @1100) and renal function is improving. Continue with 1250 mg q12h, next trough is scheduled for 09/20/24 @1100.
--- NOTE | 2024-09-19 11:01 | P.PNIM_ITS ---
Subjective Subjective Date of Service: 09/19/24 Interval History: No acute issues overnight. Overall feels better, no fever or chills Review of Systems Denies chest pain Denies shortness of breath Denies nausea vomiting diarrhea Denies fever chills Physical Exam 2 Vital Signs: Vital Signs: Last Vital Signs Temp 98.1 F 09/19/24 08:00 Pulse 84 09/19/24 08:00 Resp 18 09/19/24 08:00 BP 120/83 09/19/24 08:00 Pulse Ox 94 09/19/24 08:00 O2 Del Method Room Air 09/19/24 08:00 O2 Flow Rate 2 09/18/24 15:44 BMI result Body Mass Index 23.8 Objective Data Active Medications Acetaminophen (Acetaminophen 325 Mg Tablet) 975 mg PO TID PRN PRN Reason: Pain, Moderate(Pain Scale 4-6) Last Admin: 09/19/24 08:17 Dose: 975 mg Documented By: JOHANA Apixaban (Apixaban 5 Mg Tablet) 5 mg PO BID [facility] Last Admin: 09/19/24 08:09 Dose: 5 mg Documented By: JOHANA Aspirin (Aspirin Enteric Coated 81 Mg Tablet.) 81 mg PO MOWEFR [facility] Last Admin: 09/17/24 11:29 Dose: 81 mg Documented By: SOFI Comments: medication was unavailable Atorvastatin Calcium (Atorvastatin Calcium 20 Mg Tablet) 20 mg PO BEDTIME [facility] Last Admin: 09/18/24 21:02 Dose: 20 mg Documented By: ELA Cyclobenzaprine HCl (Cyclobenzaprine Hcl 10 Mg Tablet) 10 mg PO TID PRN PRN Reason: Muscle Spasm Last Admin: 09/19/24 08:17 Dose: 10 mg Documented By: JOHANA Fluticasone Propionate (Fluticasone Propionate Nasal 16 Gm [place]) 1 spray NOSTRIL-B BID [facility] Last Admin: 09/19/24 08:09 Dose: 1 spray Documented By: JOHANA Vancomycin HCl 1,250 mg/ (Sodium Chloride) 250 mls @ 166.667 mls/hr IV Q12H [facility] Last Infusion: 09/19/24 02:55 Dose: Infused Documented By: ELA Lactated Ringer's (Lr) 1,000 mls @ 100 mls/hr IVCONT .Q10H [facility] Last Admin: 09/19/24 01:14 Dose: 100 mls/hr Documented By: ELA Lidocaine (Lidocaine 4 % Patch Adh..Patch) 2 patch TRANSDERMA DAILY [facility]; Protocol Last Admin: 09/19/24 08:09 Dose: Not Given Documented By: JOHANA Non-Admin Reason: Patient Refused Montelukast Sodium (Montelukast Sodium 10 Mg Tablet) 10 mg PO BEDTIME [facility] Last Admin: 09/18/24 21:02 Dose: 10 mg Documented By: ELA Omeprazole (Omeprazole 40 Mg Capsule.Dr) 40 mg PO BEDTIME@2100 [facility] Last Admin: 09/18/24 21:02 Dose: 40 mg Documented By: ELA Oxybutynin Chloride (Oxybutynin Chloride Er 5 Mg Tab.Er.24) 5 mg PO DAILY [facility] Last Admin: 09/19/24 08:08 Dose: 5 mg Documented By: JOHANA Pharmacy Consult (Consult Rx Vancomycin Dosing) 1 each MISCELLANE DAILY PRN PRN Reason: Consult order Labs 09/19/24 06:59 09/19/24 06:59 Labs: Laboratory Results - last 24 hr 09/18/24 09/19/24 09/19/24 11:05 06:59 09:26 MCV 83.5 MCH 27.5 MCHC 32.9 RDW 16.3 H Plt Count 79 L MPV 10.1 Immature Gran % (Auto) 0.5 H Neut % (Auto) 83.3 H Lymph % (Auto) 8.5 L [place] % (Auto) 6.0 Eos % (Auto) 1.3 Baso % (Auto) 0.4 Lymph # (Auto) 0.7 L [place] # (Auto) 0.5 Eos # (Auto) 0.1 Baso # (Auto) 0.0 Abs Immat Gran (auto) 0.04 H Absolute Neuts (auto) 6.6 Absolute Nucleated RBC 0.000 Nucleated RBC % (auto) 0.0 Hold Purple Top SEE NOTE Anion Gap 15 Estim Creat Clear Calc 137.1 Estimated GFR > 60 Random Vancomycin 13.5 L 17.1 Microbiology Microbiology Results: Microbiology 09/17/24 09:59 Blood Culture - Preliminary Blood - Venous Enterococcus/Streptococcus sp 09/17/24 09:59 Blood Culture - Preliminary Blood - Venous No growth after 24 hours. 09/15/24 21:45 Blood Culture - Final Blood - Venous Enterococcus faecalis 09/15/24 21:37 Blood Culture - Final Blood - Venous Enterococcus faecalis 09/15/24 Unknown Urine Culture - Final Urine clean catch - Clean Catch Midstream Enterococcus faecalis Assessment and Plan (1) Septic shock: Status: Acute (2) Gram-positive bacteremia: Status: Acute (3) Type 2 diabetes mellitus: Status: Acute Plan 69-year-old male with a past medical history of paroxysmal atrial flutter (on Eliquis), ? diabetes mellitus type 2 (on jardiance), history of MVP/mitral valve regurgitation s/p MVR with bioprosthetic valve, asthma/COPD overlap, hypertension, migraines, BPH, hyperlipidemia who presented to emergency department with complaints of weakness, fever, chills, body aches for x1 day.? 1. Septic shock secondary to Enterococcus bacteremia/UTI, shock resolved -vancomycin (1)... Thrombocytopenic. We will discuss antibiotic choice with ID -repeat cultures 1/2 positive GPC -await final results -Pat states pen allergy with rash as kid -awaiting iD input for possible transition to PO Augmentin or zyvox 2. Paroxysmal atrial fibrillation -acceptable control at this time -continue Eliquis/other outpatient therapies 3. Diabetes type 2 -lispro correctional scale -add back orals as appropriate -adjust as indicated 4. Dysphagia -speech consult Full code Eliquis Patient requires ongoing hospitalization for IV antibiotics to treat Enterococcus bacteremia Quality Stroke Does the patient have a stroke diagnosis?: No VTE Prior VTE?: No VTE Risk Level:: Medical - moderate - high VTE Device Contraindication: N/A - Device Ordered VTE Drug Contraindication: N/A - Med Ordered
[2024-09-19] MEDS: cefTRIAXone sodium 2 GM VIAL IVPUSH (18:29)
[2024-09-19] MEDS: DAPTOmycin 600 MG in 0.9 % Sodium Chloride 50 ML 124 MG IV (18:29)
--- NOTE | 2024-09-19 18:47 | PC.NURSE ---
183 patient rang call butler and was found to be tremulous, patient stating that it all of a sudden hit him while trying to eat his dinner and was unable to finish eating. Patient states that he feels like he is freezing and asking for warm blanket. This RN took patient temp rectally, 101.3, Patient states that these were the same symptoms as the last time he had a fever. MD notified and Tylenol given as well as ordered antibiotics. Patients respiratory rate elevated and increased SOB. Able to get patient comfortable in bed, per MD will get x-ray and continue to check temps rectally. All other needs met at this time and call butler within reach. 185 tremors stating to lessen and decreased SOB
[2024-09-19] MEDS: Acetaminophen 1,000 MG/100 ML PIGGYBACK 400 MG IV (19:43)
[2024-09-19] MEDS: Omeprazole 40 MG CAPSULE.DR PO (20:13)
[2024-09-19] MEDS: dilTIAZem HCL CD 120 MG CAP.ER.DEG PO (20:13)
[2024-09-19] MEDS: Atorvastatin Calcium 20 MG TABLET PO (20:13)
[2024-09-19] MEDS: Montelukast Sodium 10 MG TABLET PO (20:13)
[2024-09-19] MEDS: Fluticasone Propionate 250 MCG BLST.W.DEV 1 PUFF INHALE (20:16)
[2024-09-20] VITALS (11 sets, daily range): BP systolic 98–133; BP diastolic 66–84; PULSE 60–85; RESP 16–18; TEMP 36.5–37.3; O2SAT 91–97; BMI 28.1
[2024-09-20 06:59] LABS: Anion Gap 14 (12-20); Blood Urea Nitrogen 13 mg/dL (9-16); Calcium 8.6 mg/dL (8.4-10.2); Carbon Dioxide 23 mmol/L (22-29); Chloride 106 mmol/L (96-108); Creatinine Clr Calc Pharmacy 126.6; Estimated Glomerular Filt Rate > 60; Glucose Random 147 mg/dL (60-115); Potassium 4.2 mmol/L (3.3-5.1); Sodium 139 mmol/L (135-145)
--- NOTE | 2024-09-20 07:00 | CA_ITS ---
Transthoracic Echocardiogram Patient (Last, First, Middle): Jared Jama, Gender: Male Date of : 1955 Age: 69 Procedure Date: 09/20/2024 Procedure Type: Transthoracic Echocardiogram Location: [facility] [place] Height: 177.8 cm Weight: 88.45 kg BSA: 2.06 m2 Heart Rate: bpm BP: 118 / 79 mmHg Stack Matcher: Referring MD: Harjeet Lizama MD Symptoms: Fever and bacteremia Study Quality: Adequate ECG Rhythm: Undetermined Conclusions: - The left ventricular systolic function is moderately decreased. The calculated ejection fraction is 39% by biplane method. - Severely increased right ventricular cavity size. - Bioprosthetic mitral valve noted; about 1.8 cm long linear vegetation attached to the valve. No obvious valvular dysfunction. Findings Left Ventricle Mildly increased left ventricular cavity size. There is mildly increased left ventricular wall thickness. The left ventricular systolic function is moderately decreased. The calculated ejection fraction is 39% by biplane method. There is moderate global hypokinesis. Diastolic function is indeterminate on the basis of available data. Right Ventricle Severely increased right ventricular cavity size. There is mildly decreased right ventricular systolic function. Aortic Valve There is mild calcification of the aortic valve. There is no aortic valve regurgitation. Mitral Valve A bioprosthetic mitral valve is present. There is no mitral valve regurgitation. Suspect linear vegetation attached to the bioprosthetic mitral valve; about 1.8cm in length. Mean gradient across the valve 4 mm Hg at 61/Min. Pulmonic Valve The pulmonic valve is likely normal. Tricuspid Valve Normal tricuspid valve structure. There is mild tricuspid valve regurgitation. Mild pulmonary hypertension is present. Great Vessels The aorta was not well visualized. Venous The inferior vena cava is dilated and collapses less than 50% with inspiration. Pericardium/Pleural There is no evidence of pericardial effusion. Prior Study Comparison Changes noted compared to prior study dated: 08/02/2024. See comment on mitral valve. Decrease in LVEF. Measurements 2D Linear Measurements IVSd: 1.24 0.6-0.9/0.6-1.0 cm LVIDd: 5.85 3.9-5.3/4.2-5.9 cm LVIDd Index: 2.84 2.4-3.2/2.2-3.1 cm/m2 LVIDs: 3.91 2.0-3.6 cm LVPWd: 1.26 0.7-1.1 cm LA Diam: 4.80 2.7-3.8/3.0-4.0 cm LAIDs Index: 2.33 1.5-2.3 cm/m2 LV Mass: 397.26 67-162/88-224 g LV Mass Index: 192.84 43-95/49-115 g/m2 2D Systolic Function EF 4C: 40.60 >55% EF 2C: 42.50 >55% EF BiP: 38.50 >55% Mitral Valve MV VTI: 0.63 MV Pk Jose: 1.62 MV Mn Jose: 0.94 MV Pk Grad: 10.00 MV Mn Grad: 4.00 MV Pk E: 1.42 MV Decel Time: 558.00 E'Lateral: 6.31 E'Medial: 3.81 E/E' Med: 37.30 E/E' Lat: 22.50 PHT: 163.00 MVA PHT: 1.35 Decel [place]: 2.55 Aortic Valve AoV Pk Jose: 1.22 AoV Mn Jose: 0.87 AoV VTI: 0.29 AoV Pk Grad: 6.00 Aov Mn Grad: 4.00 LVOT LVOT Pk Jose: 0.82 LVOT Mn Jose: 0.52 LVOT VTI: 0.16 LVOT Pk Grad: 3.00 LVOT Mn Grad: 1.00 Diastolic Function MV Pk E: 1.42 E'Medial: 3.81 E/E' Med: 37.30 E' Laterial: 6.31 E/E' Lat: 22.50 Right Ventricle TAPSE (mm): 15.10 Tricuspid Valve TR Pk Jose: 2.40 TR Pk Grad: 23.00 RA Press: 15.00 RVSP: 38.00 Pulmonary Valve PV Pk Jose: 1.00 Peak PV Grad: 4.00 Updated in Other Vendor System with Status of Final Ok Montero MD electronically signed on 09/20/2024 4:47:17 PM with status of Final
[2024-09-20 07:10] LABS: Hematocrit 29.5 % (42.0-52.0); Hemoglobin 9.8 g/dl (14.0-18.0); Mean Corpuscular HGB Conc 33.2 g/dl (31.0-36.0); Mean Corpuscular Hemoglobin 27.7 pg (27.0-33.0); Mean Corpuscular Volume 83.3 fL (80.0-98.0); Mean Platelet Volume 11.5 fL (9.4-12.4); Red Blood Count 3.54 X10*6/uL (4.60-5.80); Red Cell Distribution Width 16.1 % (11.0-16.0); White Blood Count 8.2 X10*3/uL (4.8-10.8)
[2024-09-20 07:13] LABS: Platelet Count 81 X10*3/uL (160-400)
[2024-09-20] MEDS: Acetaminophen 325 MG TABLET 975 MG PO ×2 (07:26→16:57)
[2024-09-20] MEDS: Cyclobenzaprine HCl 10 MG TABLET PO ×2 (07:27→16:58)
[2024-09-20] MEDS: Fluticasone Propionate 250 MCG BLST.W.DEV 1 PUFF INHALE ×2 (07:37→20:25)
[2024-09-20] MEDS: Cholecalciferol (Vitamin D3) 25 MCG TABLET PO (09:23)
[2024-09-20] MEDS: oxyBUTYnin chloride ER 5 MG TAB.ER.24 PO (09:23)
[2024-09-20] MEDS: Lactated Ringers 1,000 ML 100 ML IVCONT (09:24)
[2024-09-20] MEDS: Cyanocobalamin (Vitamin B-12) 1,000 MCG TABLET 1000 MCG PO (09:24)
[2024-09-20] MEDS: Finasteride 5 MG TABLET PO (09:24)
[2024-09-20] MEDS: Apixaban 5 MG TABLET PO ×2 (09:24→20:38)
[2024-09-20] MEDS: Aspirin Enteric Coated 81 MG TABLET.DR PO (09:25)
[2024-09-20] MEDS: Fluticasone Propionate Nasal 16 GM SPRAY 1 SPRAY NOSTRIL-B ×2 (09:26→20:40)
--- NOTE | 2024-09-20 11:17 | HO.PM.IMPN ---
Subjective Subjective Date of Service: 09/20/24 Interval History: Patient had fevers overnights, presently afebrile, Review of Systems no headache, no photophobia Physical Exam Vital Signs: Vital Signs: Last Vital Signs Temp 98.4 F 09/20/24 08:16 Pulse 79 09/20/24 07:44 Resp 18 09/20/24 07:44 BP 124/84 09/20/24 07:44 Pulse Ox 93 09/20/24 07:44 O2 Del Method Room Air 09/20/24 07:44 O2 Flow Rate 2 09/19/24 23:51 BMI result Body Mass Index 28.1 General: AO X 3, no acute distress Resp: CTA bilateral CVS: S1,S2,RRR GI: +BS, NT, no distention Skin: No rash Neuro: motor grossly intact Psych: appropriate affect Objective Data Active Medications Acetaminophen (Acetaminophen 325 Mg Tablet) 975 mg PO TID PRN PRN Reason: Pain, Moderate(Pain Scale 4-6) Last Admin: 09/20/24 07:26 Dose: 975 mg Documented By: HEDY Acetaminophen (Acetaminophen 325 Mg Tablet) 650 mg PO Q6H PRN PRN Reason: Fever >101 Acetaminophen/Butalbital/Caffeine (Butalb/Acetamin/Caff 50/325/40 Tablet) 1 tab PO Q6H PRN PRN Reason: Migraine Headache Albuterol/Ipratropium (Albuterol/Iprat 2.5/0.5mg 3 Ml Ampul.Neb) 3 ml INHALE QID PRN PRN Reason: Shortness Of Breath Or Wheezing Apixaban (Apixaban 5 Mg Tablet) 5 mg PO BID [facility] Last Admin: 09/20/24 09:24 Dose: 5 mg Documented By: JOHANA Aspirin (Aspirin Enteric Coated 81 Mg Tablet.) 81 mg PO MOWEFR [facility] Last Admin: 09/20/24 09:25 Dose: 81 mg Documented By: JOHANA Atorvastatin Calcium (Atorvastatin Calcium 20 Mg Tablet) 20 mg PO BEDTIME [facility] Last Admin: 09/19/24 20:13 Dose: 20 mg Documented By: HEDY Ceftriaxone Sodium (Ceftriaxone Sodium 2 Gm Vial) 2 gm IVPUSH Q24H [facility] Last Admin: 09/19/24 18:29 Dose: 2 gm Documented By: JOHANA Clonazepam (Clonazepam 0.5 Mg Tablet) 0.25 mg PO DAILY PRN PRN Reason: Anxiety Cyanocobalamin (Cyanocobalamin (Vitamin B-12) 1,000 Mcg Tablet) 1,000 mcg PO DAILY [facility] Last Admin: 09/20/24 09:24 Dose: 1,000 mcg Documented By: JOHANA Cyclobenzaprine HCl (Cyclobenzaprine Hcl 10 Mg Tablet) 10 mg PO TID PRN PRN Reason: Muscle Spasm Last Admin: 09/20/24 07:27 Dose: 10 mg Documented By: HEDY Diltiazem HCl (Diltiazem Hcl Cd 120 Mg Cap.Er.Deg) 120 mg PO BEDTIME [facility]; Protocol Last Admin: 09/19/24 20:13 Dose: 120 mg Documented By: HEDY Empagliflozin (Empagliflozin 10 Mg Tablet) 10 mg PO DAILY [facility] Last Admin: 09/20/24 09:24 Dose: Not Given Documented By: JOHANA Non-Admin Reason: Patient Refused Finasteride (Finasteride 5 Mg Tablet) 5 mg PO DAILY [facility] Last Admin: 09/20/24 09:24 Dose: 5 mg Documented By: JOHANA Fluticasone Propionate (Fluticasone Propionate Nasal 16 Gm [place]) 1 spray NOSTRIL-B BID [facility] Last Admin: 09/20/24 09:26 Dose: 1 spray Documented By: JOHANA Fluticasone Propionate (Fluticasone Propionate 250 Mcg Blst.W.Dev) 1 puff INHALE RBID [facility] Last Admin: 09/20/24 07:37 Dose: 1 puff Documented By: TOMMY Lactated Ringer's (Lr) 1,000 mls @ 100 mls/hr IVCONT .Q10H [facility] Last Admin: 09/20/24 09:24 Dose: 100 mls/hr Documented By: JOHANA Daptomycin 600 mg/ Sodium (Chloride) 62 mls @ 124 mls/hr IV Q24H [facility] Last Infusion: 09/19/24 19:00 Dose: Infused Documented By: HEDY Lidocaine (Lidocaine 4 % Patch Adh..Patch) 2 patch TRANSDERMA DAILY [facility]; Protocol Last Admin: 09/20/24 09:28 Dose: Not Given Documented By: JOHANA Non-Admin Reason: Patient Refused Montelukast Sodium (Montelukast Sodium 10 Mg Tablet) 10 mg PO BEDTIME [facility] Last Admin: 09/19/24 20:13 Dose: 10 mg Documented By: HEDY Omeprazole (Omeprazole 40 Mg Capsule.Dr) 40 mg PO BEDTIME@2100 [facility] Last Admin: 09/19/24 20:13 Dose: 40 mg Documented By: HEDY Oxybutynin Chloride (Oxybutynin Chloride Er 5 Mg Tab.Er.24) 5 mg PO DAILY [facility] Last Admin: 09/20/24 09:23 Dose: 5 mg Documented By: JOHANA Vitamin D (Cholecalciferol (Vitamin D3) 25 Mcg Tablet) 25 mcg PO DAILY [facility] Last Admin: 09/20/24 09:23 Dose: 25 mcg Documented By: JOHANA Labs 09/20/24 05:58 09/20/24 05:58 Labs: Laboratory Results - last 24 hr 09/20/24 05:58 MCV 83.3 MCH 27.7 MCHC 33.2 RDW 16.1 H Plt Count 81 L MPV 11.5 Absolute Nucleated RBC 0.000 Nucleated RBC % (auto) 0.0 Anion Gap 14 Estim Creat Clear Calc 126.6 Estimated GFR > 60 Random Glucose 147 H Calcium 8.6 Total Creatine Kinase 17 L Microbiology Microbiology Results: Microbiology 09/17/24 09:59 Blood Culture - Preliminary Blood - Venous Prelim: GPC Gram Stain only 09/17/24 09:59 Blood Culture - Preliminary Blood - Venous Enterococcus faecalis Assessment and Plan (1) Septic shock: Status: Acute (2) Gram-positive bacteremia: Status: Acute (3) Type 2 diabetes mellitus: Status: Acute Plan 69-year-old male with a past medical history of paroxysmal atrial flutter (on Eliquis), ? diabetes mellitus type 2 (on jardiance), history of MVP/mitral valve regurgitation s/p MVR with bioprosthetic valve, asthma/COPD overlap, hypertension, migraines, BPH, hyperlipidemia who presented to emergency department with complaints of weakness, fever, chills, body aches for x1 day.? Septic shock secondary to Enterococcus bacteremia/UTI, shock resolved -vancomycin changed to Dapto and Ceftriaxone 09/19 -to TTE today today to rule out -repeat cultures 1/2 positive GPC -repeat blood cultures, repeat uA -Pt states pen allergy with rash as kid -awaiting iD input Paroxysmal atrial fibrillation -acceptable control at this time -continue Eliquis, cardizem for rate control Diabetes type 2 Sliding scale, jardiance and diabetic diet -add back orals as appropriate -adjust as indicated Dysphagia -speech consult Full code [place] Patient requires ongoing hospitalization for IV antibiotics to treat Enterococcus bacteremia Quality Stroke Does the patient have a stroke diagnosis?: No VTE Prior VTE?: No VTE Risk Level:: Medical - moderate - high VTE Device Contraindication: N/A - Device Ordered VTE Drug Contraindication: N/A - Med Ordered
--- NOTE | 2024-09-20 11:35 | MHC.CLN ---
F/U PO INTAKE 50% AVERAGE NOTED FEVER YESTERDAY DIET RX; CARDIAC DIET-APPROPRIATE PT RECEIVING MAGIC CUP TID WITH MEALS AND WILL CONTINUE ENSURES MAGIC CUP PROVIDES 870KCALS, 27G PROTEIN WITH 100% ACCEPTANCE ENSURE BID PROVIDE 700KCALS, 40G PROTEIN WITH 100% ACCEPTANCE MONITOR PO INTAKE AND GOAL FOR WT MAINTENANCE
--- NOTE | 2024-09-20 12:28 | MHC.CM.PN ---
DX UTI Sepsis Blood cultures have been Positive. Final Cultures are still pending. DP home no services. Family will provide transportation home.
--- NOTE | 2024-09-20 14:14 | MHC.SL.SWA ---
Speech Pathologist Impression: Pt presents with mild to moderate oropharyngeal dysphagia characterized by unilateral lingual weakness (R side), mild delay in initiating pharyngeal swallow upon AP transit, use of multiple swallows to clear residuals (persistent globus sensation on R side), inconsistent throat clear, and overall decreased sensation of taste, resulting in poor PO intake, weight loss and aversion to PO. Risk of Aspiration Due to: Medically Fragile Poor PO Intake Dysphasia Diet Status: Liquid Consistency and Strategies for Safe Swallow: Liquid Intake Recommendation: Thin Liquid Intake Strategies: Solid Food Consistency: Dietary Recommendations: Regular Additional Modifications to Solid Foods: Oral Medication Intake: Whole with Puree Please contact the pharmacy regarding appropriate crushable or liquid drug formulations that are available whenever modified delivery is recommended. Compensatory Strategies and Precautions to be Taken for Safe Swallow: Sitting Upright (90 deg) Chin Tuck Double Swallow Alternate Liquids/Solids Supervision While Eating and Drinking for Safe Swallow: None Needed Foods to Avoid: Swallowing Recommended Treatments: Base of Tongue Exercises Thermal Stimulation Gustatory Stimulation Pharyngeal Resistive Exer Compens. Strategy Educat. 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 [facility] to visualize swallow mechanism and with recc STYLIST ASSISTANT treatment to address dysphagia and dysarthria in promoting resumption of PLOF to best of pt potential. Frequency/Duration: M-F Daily Date Range for Service Req: Timeline to reassess: Street And Building Decorator Clinican/Clinical Fellow: No Supervisory Statement: I have reviewed and agree with the student/clinical fellow's documentation: N/A Speech Language Pathologist: Brianna Sahu M.S., [facility]-STYLIST ASSISTANT
--- NOTE | 2024-09-20 14:21 | W.PM.IDCN ---
History of Present Illness Data of Consult Service Date: 09/20/24 [facility] Primary Care Provider: DINO Ledezma HPI Reason for consult: sepsis He presents with fatigue,aches and chills for a day. He had temperature of 101.3 and heart rate 128 when seen in ER. He has urine 6-10 WBC and trace LE. He was started on Vancomycin for blood culture enterococcus faecalis two sets 09/15 and two sets / and urine shows organism as well. He had TTE unremarkable. Review of Systems Review of Systems: Yes all other systems are reviewed and are negative [facility] Past Medical History Medical History CVA (cerebral vascular accident) Paroxysmal atrial flutter Prosthetic valve dysfunction Atrial flutter Elevated cholesterol History of GI diverticular bleed BPH (benign prostatic hyperplasia) History of blood transfusion GERD (gastroesophageal reflux disease) Type 2 diabetes mellitus Depression with anxiety PTSD (post-traumatic stress disorder) Migraine COPD, mild Asthma HTN (hypertension) Obstructive sleep apnea Enlarged RV (right ventricle) Mitral regurgitation Family History Family History Father Rheumatic fever Mother No problems noted. Sister Hx of aortic valve repair Brother Mitral valve replaced Family history: reviewed and not pertinent Surgical History Surgical History S/P MVR (mitral valve replacement) History of esophagogastroduodenoscopy (EGD) H/O colonoscopy History of excision of lesion (06/25/22) History of arthroscopy of right knee History of left inguinal hernia repair History of repair of right rotator cuff History of repair of left rotator cuff History of mitral valve replacement Hx of cardiac cath Social History Social History Household Members: Family Housing: House Do you presently have visiting nurse or other home services: No Alcohol intake: current Alcohol intake frequency: does not drink Comment: refusing alarms Patient Tobacco Use Status: Former Tobacco user Smoked in Last 30 Days: No Patient Interested in Nicotine Replacement: No Second Hand Smoke Exposure: No Use of substances other than those prescribed or required for medical reasons: No Currently Displaying Signs/Symptoms of Drug Intoxication Withdrawal: No Have you been hit, kicked, punched, or otherwise hurt by someone within the past year? If so, by whom?: No Do you feel safe in your current relationship?: Yes Is there a partner from a previous relationship who is making you feel unsafe now?: No Are you made to feel afraid or neglected: No Advance Directives: Yes Advance Directives on File: Yes Advance Directives Date on File: 02/03/24 Do you have a plan to hurt others: No Plan Recently lost weight without trying: No How much weight loss: Unsure Eating poorly because of decreased appetite: No Nutrition screen score: 2 Nutrition Risks: No Nutritional Risk Poor oral hygiene: No service: No Current occupational status: retired Current occupation: ambidextrous, 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 Meds Allergies Allergy/AdvReac Type Severity Reaction Status Date / Time DUSTIN Inhibitors Allergy Severe Anaphylaxis Verified 09/15/24 21:16 [Dustin Inhibitors] pineapple [PINEAPPLE] Allergy Severe Angioedema Verified 09/15/24 21:16 thimerosal [Thimerosal] Allergy Severe Angioedema Verified 09/15/24 21:16 fluoxetine [From PROZAC] Allergy Intermediate REQUIRED Verified 09/15/24 21:16 HOSPITALIZATION Penicillins Allergy Intermediate Rash Verified 09/15/24 21:16 tamsulosin Allergy Mild tacycardia Verified 09/15/24 21:16 aspartame [ASPARTAME] Allergy Unknown Unknown Verified 09/15/24 21:16 hexachlorophene Allergy Unknown Unknown Verified 09/15/24 21:16 [From PHISOHEX] melon Allergy Unknown Unknown Verified 09/15/24 21:16 perfume Allergy Unknown Unknown Verified 09/15/24 21:16 povidone-iodine Allergy Unknown Unknown Verified 09/15/24 21:16 [From BETADINE] soap [Betadine] Allergy Unknown Unknown Verified 09/15/24 21:16 codeine [Codeine] AdvReac Intermediate wakes up Verified 09/15/24 21:16 combative meperidine [From Demerol] AdvReac Intermediate Hallucinati Verified 09/15/24 21:16 ons monosodium glutamate AdvReac Intermediate Headache Verified 09/15/24 21:16 morphine AdvReac Intermediate wakes up Verified 09/15/24 21:16 combative dexon Allergy Unknown Unknown Uncoded 09/15/24 21:16 GLUE IN SHOES Allergy Unknown UNKNOWN Uncoded 09/15/24 21:16 PLASTIC TAPE Allergy Unknown skin Uncoded 09/15/24 21:16 problems POLYGLACTIC ACID(DEXON & Allergy Unknown UNKNOWN Uncoded 09/15/24 21:16 VICRYL) vicryl Allergy Unknown Unknown Uncoded 09/15/24 21:16 Active Medications: Current Medications Acetaminophen (Acetaminophen 325 Mg Tablet) 975 mg PO TID PRN PRN Reason: Pain, Moderate(Pain Scale 4-6) Last Admin: 09/20/24 07:26 Dose: 975 mg Acetaminophen (Acetaminophen 325 Mg Tablet) 650 mg PO Q6H PRN PRN Reason: Fever >101 Acetaminophen/Butalbital/Caffeine (Butalb/Acetamin/Caff 50/325/40 Tablet) 1 tab PO Q6H PRN PRN Reason: Migraine Headache Albuterol/Ipratropium (Albuterol/Iprat 2.5/0.5mg 3 Ml Ampul.Neb) 3 ml INHALE QID PRN PRN Reason: Shortness Of Breath Or Wheezing Apixaban (Apixaban 5 Mg Tablet) 5 mg PO BID [facility] Last Admin: 09/20/24 09:24 Dose: 5 mg Aspirin (Aspirin Enteric Coated 81 Mg Tablet.Dr) 81 mg PO MOWEFR [facility] Last Admin: 09/20/24 09:25 Dose: 81 mg Atorvastatin Calcium (Atorvastatin Calcium 20 Mg Tablet) 20 mg PO BEDTIME [facility] Last Admin: 09/19/24 20:13 Dose: 20 mg Ceftriaxone Sodium (Ceftriaxone Sodium 2 Gm Vial) 2 gm IVPUSH Q24H [facility] Last Admin: 09/19/24 18:29 Dose: 2 gm Clonazepam (Clonazepam 0.5 Mg Tablet) 0.25 mg PO DAILY PRN PRN Reason: Anxiety Cyanocobalamin (Cyanocobalamin (Vitamin B-12) 1,000 Mcg Tablet) 1,000 mcg PO DAILY [facility] Last Admin: 09/20/24 09:24 Dose: 1,000 mcg Cyclobenzaprine HCl (Cyclobenzaprine Hcl 10 Mg Tablet) 10 mg PO TID PRN PRN Reason: Muscle Spasm Last Admin: 09/20/24 07:27 Dose: 10 mg Diltiazem HCl (Diltiazem Hcl Cd 120 Mg Cap.Er.Deg) 120 mg PO BEDTIME [facility]; Protocol Last Admin: 09/19/24 20:13 Dose: 120 mg Empagliflozin (Empagliflozin 10 Mg Tablet) 10 mg PO DAILY [facility] Last Admin: 09/20/24 09:24 Dose: Not Given Finasteride (Finasteride 5 Mg Tablet) 5 mg PO DAILY [facility] Last Admin: 09/20/24 09:24 Dose: 5 mg Fluticasone Propionate (Fluticasone Propionate Nasal 16 Gm [place]) 1 spray NOSTRIL-B BID [facility] Last Admin: 09/20/24 09:26 Dose: 1 spray Fluticasone Propionate (Fluticasone Propionate 250 Mcg Blst.W.Dev) 1 puff INHALE RBID [facility] Last Admin: 09/20/24 07:37 Dose: 1 puff Lactated Ringer's (Lr) 1,000 mls @ 100 mls/hr IVCONT .Q10H [facility] Last Admin: 09/20/24 09:24 Dose: 100 mls/hr Daptomycin 600 mg/ Sodium (Chloride) 62 mls @ 124 mls/hr IV Q24H [facility] Last Infusion: 09/19/24 19:00 Dose: Infused Lidocaine (Lidocaine 4 % Patch Adh..Patch) 2 patch TRANSDERMA DAILY [facility]; Protocol Last Admin: 09/20/24 09:28 Dose: Not Given Montelukast Sodium (Montelukast Sodium 10 Mg Tablet) 10 mg PO BEDTIME [facility] Last Admin: 09/19/24 20:13 Dose: 10 mg Omeprazole (Omeprazole 40 Mg Capsule.Dr) 40 mg PO BEDTIME@2100 [facility] Last Admin: 09/19/24 20:13 Dose: 40 mg Oxybutynin Chloride (Oxybutynin Chloride Er 5 Mg Tab.Er.24) 5 mg PO DAILY [facility] Last Admin: 09/20/24 09:23 Dose: 5 mg Vitamin D (Cholecalciferol (Vitamin D3) 25 Mcg Tablet) 25 mcg PO DAILY [facility] Last Admin: 09/20/24 09:23 Dose: 25 mcg Home Medications ?Medication ?Instructions ?Recorded ?Confirmed ?Last Taken ?Type cholecalciferol (vitamin D3) 25 25 mcg PO DAILY 11/08/20 09/16/24 09/15/24 History mcg (1,000 unit) capsule clonazepam 0.5 mg tablet 0.25 - 0.5 mg PO DAILY PRN Anxiety 11/08/20 09/16/24 02/01/24 History finasteride 5 mg tablet 5 mg PO DAILY 11/08/20 09/16/24 09/15/24 History saw palmetto 160 mg capsule 160 mg PO DAILY 11/08/20 09/16/24 09/15/24 History fluticasone propionate 50 1 spray intranasal BID 02/13/21 09/16/24 09/15/24 History mcg/actuation nasal spray,suspension (Flonase Allergy Relief) omeprazole 20 mg capsule,delayed 40 mg PO BEDTIME@2100 01/30/23 09/16/24 09/15/24 History release apixaban 5 mg tablet (Eliquis) 5 mg PO BID 01/05/24 09/16/24 09/15/24 History terazosin 10 mg capsule 10 mg PO DAILY 02/03/24 09/16/24 09/15/24 History tadalafil 5 mg tablet (Cialis) 5 mg PO BEDTIME 03/04/24 09/16/24 09/15/24 History metformin 750 mg tablet,extended 750 mg PO BEDTIME 04/08/24 09/16/24 09/12/24 History release 24 hr diltiazem HCl 120 mg 120 mg PO BEDTIME 05/10/24 09/16/24 09/15/24 History capsule,extended release 24 hr atorvastatin 40 mg tablet 20 mg PO BEDTIME 08/14/24 09/16/24 09/15/24 History cyanocobalamin (vitamin B-12) 1,000 mcg PO DAILY 08/14/24 09/16/24 09/15/24 History 1,000 mcg tablet ketoconazole 2 % topical cream 1 appl topical DAILY PRN Rash 08/14/24 09/16/24 Unknown History miconazole nitrate 2 % topical 1 appl topical DAILY PRN Rash 08/14/24 09/16/24 Unknown History powder montelukast 10 mg tablet 10 mg PO BEDTIME 08/14/24 09/16/24 09/15/24 History acetaminophen 500 mg tablet 1,000 mg PO TID PRN Back Pain 09/16/24 09/16/24 Unknown History aspirin 81 mg tablet,delayed 81 mg PO MOWEFR 09/16/24 09/16/24 09/15/24 History release tbrzxrphyn-uejhixqusjvdq-zsgzehet 1 tab PO Q6H PRN Migraine Headache 09/16/24 09/16/24 Unknown History 50 mg-325 mg-40 mg tablet cyclobenzaprine 10 mg tablet 10 mg PO BEDTIME PRN Back Pain 09/16/24 09/16/24 Unknown History diclofenac sodium 1 % topical gel 2 g topical QID PRN Pain 09/16/24 09/16/24 Unknown History ipratropium 20 mcg-albuterol 100 1 puff inhalation QID PRN 09/16/24 09/16/24 Unknown History mcg/actuation mist for inhalation Shortness Of Breath Or Wheezing mometasone 200 mcg/actuation HFA 2 puff inhalation BID 09/16/24 09/16/24 Unknown History aerosol inhaler Physical Exam Vital Signs: Vital Signs: Last Vital Signs Temp 97.7 F 09/20/24 11:48 Pulse 62 09/20/24 11:48 Resp 16 09/20/24 11:48 BP 98/66 09/20/24 11:48 Pulse Ox 94 09/20/24 11:48 O2 Del Method Room Air 09/20/24 11:48 O2 Flow Rate 2 09/19/24 23:51 BMI result Body Mass Index 28.1 Const: General: cooperative HEENT: Head: Yes normal to inspection Face and sinus: Yes normal facial exam Mouth: Normal oral and palatal mucosa present Teeth and gingiva: dentition normal Eyes: General: appearance normal, both eyes and all related structures Pupils: Equal, round and reactive pupils present Resp: Effort & Inspection: normal respiratory effort Cardio: Rate: regular rate Rhythm: regular rhythm GI: Palpation (GI): Soft to palpation and nontender : General: Yes no CVA tenderness Back/Spine/Pelvis: Back: no CVA tenderness Skin: General skin exam: no rashes or lesions noted Neuro: General: moves all extremities Cranial nerves: Yes Equal, round and reactive pupils present Extrem: Other: trace edema Psych: Appearance: grossly normal Results Labs 09/20/24 05:58 09/20/24 05:58 Labs: Short CBC 09/20/24 Range/Units 05:58 WBC 8.2 (4.8-10.8) X10*3/uL Hgb 9.8 L (14.0-18.0) g/dl Hct 29.5 L (42.0-52.0) % Plt Count 81 L (160-400) X10*3/uL BMP 09/20/24 05:58 Sodium 139 Potassium 4.2 Chloride 106 Carbon Dioxide 23 BUN 13 Creatinine 0.60 Calcium 8.6 Cardiac Enzymes 09/20/24 Range/Units 05:58 Total Creatine Kinase 17 L (38-174) U/L Microbiology Microbiology Results: Microbiology 09/17/24 09:59 Blood - Venous Blood Culture - Preliminary Prelim: GPC Gram Stain only 09/17/24 09:59 Blood - Venous Blood Culture - Preliminary Enterococcus faecalis 09/15/24 21:45 Blood - Venous Blood Culture - Final Enterococcus faecalis 09/15/24 21:37 Blood - Venous Blood Culture - Final Enterococcus faecalis 09/15/24 Unknown Urine clean catch - Clean Catch Midstream Urine Culture - Final Enterococcus faecalis Assessment and Plan (1) Septic shock: Status: Acute (2) Acute UTI: Status: Acute Plan Enterococcus faecalis bacteremia. He has prosthetic aortic valve done by [facility] on 06/25 and open procedure done 2016. 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 Likely source UTI. He has no recent procedures. Would switch to IV Daptomycin instead of Vancomycin due to ease of achieving levels. Would also add Ceftriaxone for synergy. He has bacteremia 09/15 and 09/17,persistent so check DOREEN if still bacteremic despite new regimen change. Otherwise likely 6 weeks IV Daptomycin and Ceftriaxone and no rifampin or rifabutin due to concern over anticoagulation interactions with eliquis , Check CK, creatinine and CBC weekly. Follow Dr Rajput.
[2024-09-20] MEDS: cefTRIAXone sodium 2 GM VIAL IVPUSH (16:58)
[2024-09-20] MEDS: DAPTOmycin 600 MG in 0.9 % Sodium Chloride 50 ML 124 MG IV (16:58)
[2024-09-20 17:52] LABS: Appearance Urine Clear; Color Urine Yellow; Glucose Urine UA 500 mg/dL (Negative); Leukocyte Esterase Urine Negative (Negative); Nitrite Urine Negative (Negative); PH 5.5 (5.0-9.0); UMIC TRIGGER UACC YES; Urine Blood Negative (Negative); Urine Ketones Negative (Negative); Urine Protein 30 (1+) mg/dL (Neg-Trace)
[2024-09-20 18:07] LABS: Bacteria Urine None Seen (None Seen); Hyaline Casts Urine 0-2 /LPF (0-2); RBC Urine 0-2 /HPF (0-2); WBC Urine 0-5 /HPF (0-5)
[2024-09-20] MEDS: Montelukast Sodium 10 MG TABLET PO (20:38)
[2024-09-20] MEDS: dilTIAZem HCL CD 120 MG CAP.ER.DEG PO (20:39)
[2024-09-20] MEDS: Omeprazole 40 MG CAPSULE.DR PO (20:39)
[2024-09-20] MEDS: Atorvastatin Calcium 20 MG TABLET PO (20:40)
[2024-09-21] MEDS: Cyclobenzaprine HCl 10 MG TABLET PO ×3 (00:54→16:59)
[2024-09-21 03:07] VITALS: BP 108/69; PULSE 68; RESP 16; TEMP 37.1; O2SAT 93
[2024-09-21 06:00] VITALS: BMI 28.9
[2024-09-21 07:17] VITALS: BP 99/64; PULSE 85; RESP 16; TEMP 37.7; O2SAT 91
[2024-09-21 07:30] LABS: Hematocrit 29.5 % (42.0-52.0); Mean Corpuscular HGB Conc 33.9 g/dl (31.0-36.0); Mean Corpuscular Hemoglobin 27.6 pg (27.0-33.0); Mean Corpuscular Volume 81.5 fL (80.0-98.0); Mean Platelet Volume 10.9 fL (9.4-12.4); Red Blood Count 3.62 X10*6/uL (4.60-5.80); Red Cell Distribution Width 16.3 % (11.0-16.0); White Blood Count 8.4 X10*3/uL (4.8-10.8)
[2024-09-21 07:31] LABS: Platelet Count 95 X10*3/uL (160-400)
[2024-09-21] MEDS: Fluticasone Propionate 250 MCG BLST.W.DEV 1 PUFF INHALE (07:47)
[2024-09-21 07:49] LABS: Anion Gap 14 (12-20); Blood Urea Nitrogen 9 mg/dL (9-16); Calcium 8.4 mg/dL (8.4-10.2); Carbon Dioxide 22 mmol/L (22-29); Chloride 106 mmol/L (96-108); Creatinine Clr Calc Pharmacy 135.1; Estimated Glomerular Filt Rate > 60; Glucose Random 153 mg/dL (60-115); Potassium 3.6 mmol/L (3.3-5.1); Sodium 138 mmol/L (135-145)
[2024-09-21 07:50] VITALS: PULSE 77; RESP 15; O2SAT 90
[2024-09-21] MEDS: Cyanocobalamin (Vitamin B-12) 1,000 MCG TABLET 1000 MCG PO (07:59)
[2024-09-21] MEDS: oxyBUTYnin chloride ER 5 MG TAB.ER.24 PO (08:00)
[2024-09-21] MEDS: Acetaminophen 325 MG TABLET 975 MG PO ×2 (08:00→16:59)
[2024-09-21] MEDS: Finasteride 5 MG TABLET PO (08:00)
[2024-09-21] MEDS: Empagliflozin 10 MG TABLET PO (08:01)
[2024-09-21] MEDS: Cholecalciferol (Vitamin D3) 25 MCG TABLET PO (08:01)
[2024-09-21] MEDS: Apixaban 5 MG TABLET PO (08:01)
[2024-09-21] MEDS: Fluticasone Propionate Nasal 16 GM SPRAY 1 SPRAY NOSTRIL-B (08:01)
--- NOTE | 2024-09-21 10:06 | PM.CNCAR ---
History of Present Illness History of Present Illness Date of Service: 09/21/24 Chief complaint: UTI/Septic shock Narrative: This is a cardiology consultation regarding prosthetic valve endocarditis. 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 He also has persistent atrial flutter history. Congestive heart failure/pulmonary hypertension. Current admission is because of weakness, fever, chills, body aches. When he came to the ER, temperature was as much as 105 degrees. He was hypotensive into the 80s. Hypoxic. Lethargic. Subsequently, he was admitted for further care. Blood cultures were drawn and they were positive for Enterococcus faecalis. Echocardiogram was performed and that showed vegetation in the prosthetic mitral valve. Hence we are consulted. Patient states that he is generally weak and tired. When he starts any physical activity, he gets short of breath. Review of Systems Review of Systems: Yes all other systems are reviewed and are negative Constitutional: Constitutional: Reports as per HPI, Reports no additional constitutional complaints, Reports fatigue, Reports lethargy and Reports malaise Eyes: Eyes: Reports as per HPI and Denies no additional eye complaints ENT: Denies system reviewed and no additional complaints, except as documented and Reports as per HPI Cardiovascular: Cardiovascular: Reports as per HPI, Reports no additional cardiovascular complaints, Denies acrocyanosis, Denies cool extremities, Denies chest pain, Denies leg edema, Denies lightheadedness, Denies palpitations and Reports dyspnea Respiratory: Respiratory: Reports as per HPI, Denies no additional respiratory complaints and Reports dyspnea Gastrointestinal: Gastrointestinal: Reports as per HPI and Denies no additional gastrointestinal complaints Genitourinary: Genitourinary: Reports no additional male genitourinary complaints and Reports as per HPI Musculoskeletal: Musculoskeletal: Reports no additional musculoskeletal complaints and Reports as per HPI Integumentary/Breasts: Skin/Breast: Reports system reviewed and no additional complaints, except as docu Neurologic: Reports system reviewed and no additional complaints, except as documented and Reports as per HPI Psychiatric: Psychiatric: Reports no additional psychiatric complaints and Reports as per HPI Endocrine: Endocrine: Reports no additional endocrine complaints, Reports as per HPI, Reports fatigue and Denies palpitations Hematologic/Lymphatic: Hematologic/Lymphatic: Reports no additional hematologic/lymphatic complaints and Reports as per HPI Allergic/Immunologic: Allergic/Immunologic: Reports no additional allergic/immunologic complaints and Reports as per HPI PMF Past Medical History Medical History CVA (cerebral vascular accident) Paroxysmal atrial flutter Prosthetic valve dysfunction Atrial flutter Elevated cholesterol History of GI diverticular bleed BPH (benign prostatic hyperplasia) History of blood transfusion GERD (gastroesophageal reflux disease) Type 2 diabetes mellitus Depression with anxiety PTSD (post-traumatic stress disorder) Migraine COPD, mild Asthma HTN (hypertension) Obstructive sleep apnea Enlarged RV (right ventricle) Mitral regurgitation Family History Family History Father Rheumatic fever Mother No problems noted. Sister Hx of aortic valve repair Brother Mitral valve replaced Family history: reviewed and not pertinent Surgical History Surgical History S/P MVR (mitral valve replacement) History of esophagogastroduodenoscopy (EGD) H/O colonoscopy History of excision of lesion (06/25/22) History of arthroscopy of right knee History of left inguinal hernia repair History of repair of right rotator cuff History of repair of left rotator cuff History of mitral valve replacement Hx of cardiac cath Social History Social History Household Members: Family Housing: House Do you presently have visiting nurse or other home services: No Alcohol intake: current Alcohol intake frequency: does not drink Comment: refusing alarms Patient Tobacco Use Status: Former Tobacco user Smoked in Last 30 Days: No Patient Interested in Nicotine Replacement: No Second Hand Smoke Exposure: No Use of substances other than those prescribed or required for medical reasons: No Currently Displaying Signs/Symptoms of Drug Intoxication Withdrawal: No Have you been hit, kicked, punched, or otherwise hurt by someone within the past year? If so, by whom?: No Do you feel safe in your current relationship?: Yes Is there a partner from a previous relationship who is making you feel unsafe now?: No Are you made to feel afraid or neglected: No Advance Directives: Yes Advance Directives on File: Yes Advance Directives Date on File: 02/03/24 Do you have a plan to hurt others: No Plan Recently lost weight without trying: No How much weight loss: Unsure Eating poorly because of decreased appetite: No Nutrition screen score: 2 Nutrition Risks: No Nutritional Risk Poor oral hygiene: No service: No Current occupational status: retired Current occupation: ambidextrous, 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 Meds Allergies Allergy/AdvReac Type Severity Reaction Status Date / Time DUSTIN Inhibitors Allergy Severe Anaphylaxis Verified 09/15/24 21:16 [Dustin Inhibitors] pineapple [PINEAPPLE] Allergy Severe Angioedema Verified 09/15/24 21:16 thimerosal [Thimerosal] Allergy Severe Angioedema Verified 09/15/24 21:16 fluoxetine [From PROZAC] Allergy Intermediate REQUIRED Verified 09/15/24 21:16 HOSPITALIZATION Penicillins Allergy Intermediate Rash Verified 09/15/24 21:16 tamsulosin Allergy Mild tacycardia Verified 09/15/24 21:16 aspartame [ASPARTAME] Allergy Unknown Unknown Verified 09/15/24 21:16 hexachlorophene Allergy Unknown Unknown Verified 09/15/24 21:16 [From PHISOHEX] melon Allergy Unknown Unknown Verified 09/15/24 21:16 perfume Allergy Unknown Unknown Verified 09/15/24 21:16 povidone-iodine Allergy Unknown Unknown Verified 09/15/24 21:16 [From BETADINE] soap [Betadine] Allergy Unknown Unknown Verified 09/15/24 21:16 codeine [Codeine] AdvReac Intermediate wakes up Verified 09/15/24 21:16 combative meperidine [From Demerol] AdvReac Intermediate Hallucinati Verified 09/15/24 21:16 ons monosodium glutamate AdvReac Intermediate Headache Verified 09/15/24 21:16 morphine AdvReac Intermediate wakes up Verified 09/15/24 21:16 combative dexon Allergy Unknown Unknown Uncoded 09/15/24 21:16 GLUE IN SHOES Allergy Unknown UNKNOWN Uncoded 09/15/24 21:16 PLASTIC TAPE Allergy Unknown skin Uncoded 09/15/24 21:16 problems POLYGLACTIC ACID(DEXON & Allergy Unknown UNKNOWN Uncoded 09/15/24 21:16 VICRYL) vicryl Allergy Unknown Unknown Uncoded 09/15/24 21:16 Active Medications: Current Medications Acetaminophen (Acetaminophen 325 Mg Tablet) 975 mg PO TID PRN PRN Reason: Pain, Moderate(Pain Scale 4-6) Last Admin: 09/21/24 08:00 Dose: 975 mg Acetaminophen (Acetaminophen 325 Mg Tablet) 650 mg PO Q6H PRN PRN Reason: Fever >101 Acetaminophen/Butalbital/Caffeine (Butalb/Acetamin/Caff 50/325/40 Tablet) 1 tab PO Q6H PRN PRN Reason: Migraine Headache Albuterol/Ipratropium (Albuterol/Iprat 2.5/0.5mg 3 Ml Ampul.Neb) 3 ml INHALE QID PRN PRN Reason: Shortness Of Breath Or Wheezing Apixaban (Apixaban 5 Mg Tablet) 5 mg PO BID [facility] Last Admin: 09/21/24 08:01 Dose: 5 mg Aspirin (Aspirin Enteric Coated 81 Mg Tablet.Dr) 81 mg PO MOWEFR [facility] Last Admin: 09/20/24 09:25 Dose: 81 mg Atorvastatin Calcium (Atorvastatin Calcium 20 Mg Tablet) 20 mg PO BEDTIME [facility] Last Admin: 09/20/24 20:40 Dose: 20 mg Ceftriaxone Sodium (Ceftriaxone Sodium 2 Gm Vial) 2 gm IVPUSH Q24H [facility] Last Admin: 09/20/24 16:58 Dose: 2 gm Clonazepam (Clonazepam 0.5 Mg Tablet) 0.25 mg PO DAILY PRN PRN Reason: Anxiety Cyanocobalamin (Cyanocobalamin (Vitamin B-12) 1,000 Mcg Tablet) 1,000 mcg PO DAILY [facility] Last Admin: 09/21/24 07:59 Dose: 1,000 mcg Cyclobenzaprine HCl (Cyclobenzaprine Hcl 10 Mg Tablet) 10 mg PO TID PRN PRN Reason: Muscle Spasm Last Admin: 09/21/24 07:59 Dose: 10 mg Diltiazem HCl (Diltiazem Hcl Cd 120 Mg Cap.Er.Deg) 120 mg PO BEDTIME [facility]; Protocol Last Admin: 09/20/24 20:39 Dose: 120 mg Empagliflozin (Empagliflozin 10 Mg Tablet) 10 mg PO DAILY [facility] Last Admin: 09/21/24 08:01 Dose: 10 mg Finasteride (Finasteride 5 Mg Tablet) 5 mg PO DAILY [facility] Last Admin: 09/21/24 08:00 Dose: 5 mg Fluticasone Propionate (Fluticasone Propionate Nasal 16 Gm [place]) 1 spray NOSTRIL-B BID [facility] Last Admin: 09/21/24 08:01 Dose: 1 spray Fluticasone Propionate (Fluticasone Propionate 250 Mcg Blst.W.Dev) 1 puff INHALE RBID [facility] Last Admin: 09/21/24 07:47 Dose: 1 puff Daptomycin 600 mg/ Sodium (Chloride) 62 mls @ 124 mls/hr IV Q24H [facility] Last Infusion: 09/20/24 17:32 Dose: Infused Lidocaine (Lidocaine 4 % Patch Adh..Patch) 2 patch TRANSDERMA DAILY [facility]; Protocol Last Admin: 09/21/24 08:01 Dose: Not Given Montelukast Sodium (Montelukast Sodium 10 Mg Tablet) 10 mg PO BEDTIME [facility] Last Admin: 09/20/24 20:38 Dose: 10 mg Omeprazole (Omeprazole 40 Mg Capsule.Dr) 40 mg PO BEDTIME@2100 [facility] Last Admin: 09/20/24 20:39 Dose: 40 mg Oxybutynin Chloride (Oxybutynin Chloride Er 5 Mg Tab.Er.24) 5 mg PO DAILY [facility] Last Admin: 09/21/24 08:00 Dose: 5 mg Vitamin D (Cholecalciferol (Vitamin D3) 25 Mcg Tablet) 25 mcg PO DAILY [facility] Last Admin: 09/21/24 08:01 Dose: 25 mcg Home Medications ?Medication ?Instructions ?Recorded ?Confirmed ?Last Taken ?Type cholecalciferol (vitamin D3) 25 25 mcg PO DAILY 11/08/20 09/16/24 09/15/24 History mcg (1,000 unit) capsule clonazepam 0.5 mg tablet 0.25 - 0.5 mg PO DAILY PRN Anxiety 11/08/20 09/16/24 02/01/24 History finasteride 5 mg tablet 5 mg PO DAILY 11/08/20 09/16/24 09/15/24 History saw palmetto 160 mg capsule 160 mg PO DAILY 11/08/20 09/16/24 09/15/24 History fluticasone propionate 50 1 spray intranasal BID 02/13/21 09/16/24 09/15/24 History mcg/actuation nasal spray,suspension (Flonase Allergy Relief) omeprazole 20 mg capsule,delayed 40 mg PO BEDTIME@2100 01/30/23 09/16/24 09/15/24 History release apixaban 5 mg tablet (Eliquis) 5 mg PO BID 01/05/24 09/16/24 09/15/24 History terazosin 10 mg capsule 10 mg PO DAILY 02/03/24 09/16/24 09/15/24 History tadalafil 5 mg tablet (Cialis) 5 mg PO BEDTIME 03/04/24 09/16/24 09/15/24 History metformin 750 mg tablet,extended 750 mg PO BEDTIME 04/08/24 09/16/24 09/12/24 History release 24 hr diltiazem HCl 120 mg 120 mg PO BEDTIME 05/10/24 09/16/24 09/15/24 History capsule,extended release 24 hr atorvastatin 40 mg tablet 20 mg PO BEDTIME 08/14/24 09/16/24 09/15/24 History cyanocobalamin (vitamin B-12) 1,000 mcg PO DAILY 08/14/24 09/16/24 09/15/24 History 1,000 mcg tablet ketoconazole 2 % topical cream 1 appl topical DAILY PRN Rash 08/14/24 09/16/24 Unknown History miconazole nitrate 2 % topical 1 appl topical DAILY PRN Rash 08/14/24 09/16/24 Unknown History powder montelukast 10 mg tablet 10 mg PO BEDTIME 08/14/24 09/16/24 09/15/24 History acetaminophen 500 mg tablet 1,000 mg PO TID PRN Back Pain 09/16/24 09/16/24 Unknown History aspirin 81 mg tablet,delayed 81 mg PO MOWEFR 09/16/24 09/16/24 09/15/24 History release [id number] 1 tab PO Q6H PRN Migraine Headache 09/16/24 09/16/24 Unknown History 50 mg-325 mg-40 mg tablet cyclobenzaprine 10 mg tablet 10 mg PO BEDTIME PRN Back Pain 09/16/24 09/16/24 Unknown History diclofenac sodium 1 % topical gel 2 g topical QID PRN Pain 09/16/24 09/16/24 Unknown History ipratropium 20 mcg-albuterol 100 1 puff inhalation QID PRN 09/16/24 09/16/24 Unknown History mcg/actuation mist for inhalation Shortness Of Breath Or Wheezing mometasone 200 mcg/actuation HFA 2 puff inhalation BID 09/16/24 09/16/24 Unknown History aerosol inhaler Physical Exam Vital Signs: Vital Signs: Last Vital Signs Temp 99.8 F 09/21/24 07:17 Pulse 77 09/21/24 07:50 Resp 15 09/21/24 07:50 BP 99/64 09/21/24 07:17 Pulse Ox 91 L 09/21/24 07:17 O2 Del Method Room Air 09/21/24 07:17 O2 Flow Rate 2 09/19/24 23:51 BMI result Body Mass Index 28.9 Const: General: comfortable and no acute distress Orientation/consciousness: patient oriented x3 HEENT: Other: Unremarkable Head: Yes normal to inspection Neck: Neck: Yes normal visual inspection Chest: Chest palpation & inspection: normal inspection of the chest Resp: Auscultation: clear to auscultation bilaterally Cardio: Palpation: normal PMI Heart sounds: S1 normal heart sound present, S2 normal heart sound present, no gallops, no murmurs and no rubs GI: Palpation (GI): Soft to palpation Back/Spine/Pelvis: Other: unremarkable Skin: General skin exam: no rashes or lesions noted Neuro: General: patient oriented x3 Extrem: General: Yes normal to inspection Psych: Mental Status: mental status grossly normal Objective Labs and Meds 09/21/24 06:58 09/21/24 06:58 Lab results: Laboratory Results - last 24 hr 09/20/24 09/21/24 17:31 06:58 WBC 8.4 RBC 3.62 L Hgb 10.0 L Hct 29.5 L MCV 81.5 MCH 27.6 MCHC 33.9 RDW 16.3 H Plt Count 95 L MPV 10.9 Absolute Nucleated RBC 0.000 Nucleated RBC % (auto) 0.0 Sodium 138 Potassium 3.6 Chloride 106 Carbon Dioxide 22 Anion Gap 14 BUN 9 Creatinine 0.57 Estim Creat Clear Calc 135.1 Estimated GFR > 60 Random Glucose 153 H Calcium 8.4 Total Creatine Kinase 13 L Urine Color Yellow Urine Appearance Clear Urine pH 5.5 Ur Specific [place] 1.020 Urine Protein 30 (1+) H Urine Glucose (UA) 500 H Urine Ketones Negative Urine Blood Negative Urine Nitrite Negative Ur Leukocyte Esterase Negative Urine RBC 0-2 Urine WBC 0-5 Ur Squamous Epith Cells 3-5 Urine Bacteria None Seen Hyaline Casts 0-2 ECG Interpretation: EKG with atrial fibrillation at a rate of 103/Min; right bundle-branch block pattern. Assessment and Plan (1) Prosthetic valve endocarditis: Status: Acute Plan In the echocardiogram yesterday, LVEF depressed at 39%. Severely increased right ventricular size. Bioprosthetic mitral valve with a 1.8 cm long vegetation. However, no overt valvular dysfunction identified on the transthoracic study. Blood cultures from 09/15/2024 but positive for Enterococcus faecalis. Urine was also positive for the same. In the repeat blood culture from 09/17 Enterococcus as well as Streptococcus. Most recent culture from 09/20 still pending. It seems that he was toxic/septic upon arrival with temperature of as much as 105 degrees F but now improved. Not entirely clear if this vegetation is going to resolve with antibiotics only. But he will also be high-risk for any surgical interventions. Overall, difficult scenario. We will discuss with [facility] and consider transfer. Discussed with Dr. Lizama. For the time being, continue the current level of antibiotics as recommended by ID. Procedures Date of Service Date of Service: 09/21/24
[2024-09-21 11:05] VITALS: BP 117/72; PULSE 87; RESP 16; TEMP 36.6; O2SAT 95
--- NOTE | 2024-09-21 12:35 | MHC.SLORD ---
Speech Language Pathology Order Status: Pt recommended to be seen for MBSS by ROD GREASER. ROD GREASER communicated w/ MD via [place] RE: MBSS Rec.
--- NOTE | 2024-09-21 12:47 | P.DS_ITS ---
DS: Providers Provider Date of Service: 09/21/24 Date of admission: 09/16/24 00:53 Date of discharge: 09/21/24 Primary care physician: DINO Ledezma Consults: 09/20/24 12:38 Consult to Infectious Diseases Routine Consulting Provider: [facility] Reason for consultation: sepsis Has provider been notified: Yes 09/21/24 07:34 Consult to Cardiology Routine Consulting Provider: [facility] Reason for consultation: infective endocarditis DS: Diagnosis Discharge Diagnosis (1) Prosthetic valve endocarditis: Status: Acute DS: Summary Hospital Course Hospital Course: admission hpi Chief Complaint: Weakness ?The patient is a 69-year-old male with a past medical history of paroxysmal atrial flutter (on Eliquis), ? diabetes mellitus type 2 (on jardiance), history of MVP/mitral valve regurgitation s/p MVR with bioprosthetic valve, asthma/COPD overlap, hypertension, migraines, BPH, hyperlipidemia who presented to emergency department with complaints of weakness, fever, chills, body aches for x1 day.? According to patient?s symptoms worsening,? despite administration of 2000 mg of acetaminophen.?? ? reports 2 days ago patient had a CAT scan of the abdomen pelvis done because patient was complaining of generalized back pain, states the results were negative for any acute findings. ?On arrival to the emergency department patient?s? T high 105.1,? hypotensive to? systolic of 80s, hypoxic to 88% on room air, and tachypneic.? Patient noted to be lethargic,? but able to answer some questions.? ?Laboratory data significant for serum bicarb 20, anion gap 23, lactic 7.1 ?Urine positive for leukocyte esterase and glucose ?Viral panel negative IMAGING:? ?ABDOMINAL CT: no acute findings ED COURSE:? Received a total of 3.3 L bolus, 200 mL of albumin, 1000 mg IV Tylenol, ceftriaxone 1 g and azithromycin 500 mg.? Despite fluid administration patient required initiation of vasopressor support hospital course 69-year-old male with a past medical history of paroxysmal atrial flutter (on Eliquis), type 2 diabetes mellitus (on Jardiance), history of mitral valve prolapse/mitral regurgitation status post mitral valve replacement with a bioprosthetic valve, asthma-COPD overlap, hypertension, migraines, benign prostatic hyperplasia, and hyperlipidemia, presented to the emergency department with weakness, fever up to 105, chills, and body aches for one day and found to be hypotensive with systolic BP in the 80s. He was admitted to the ICU for shock, which responded to IV fluids. Urine and blood cultures grew Enterococcus faecalis. He was initially treated with ceftriaxone and azithromycin for a possible respiratory source. Vancomycin was added on 09/18 for Enterococcus bacteremia and uti, but later switched to daptomycin and ceftriaxone per Infectious Disease (ID) recommendations due to persistent bacteremia. * Initial positive blood culture: 09/15 * Repeat culture: 09/17 ? also positive * Latest cultures from 09/20 ? results pending A transthoracic echocardiogram on 09/20 revealed 1. 8 cm vegetation on the mitral valve. Cardiology has recommended transfer to [facility] [place] for further management and cosideration for intervention by cardiac thoracic surgery. Of note, the patient had a stroke in late July, and there is now concern for septic embolism as the etiology of the stroke. Paroxysmal atrial fibrillation -acceptable control at this time -continue Eliquis, ASA, cardizem for rate control Diabetes type 2 Sliding scale, jardiance and diabetic diet Dysphagia, likely related to stroke--seen by [facility] and had Modified barium study with the following finding and recommendaion There was penetration seen with thin liquids, thickened liquids, and puree. Cleared with throat clearing. No evidence of aspiration on this exam. Moderate retention in the pharynx, which collected mostly in the valleculae. Dry swallows and chin tuck maneuver were effective in reducing residuals. Recommend continue on REGULAR/THIN with strategies (chin tuck on dry swallow, avoid straws). Recommend speech therapy for dysphagia treatment at next level of care. To [facility] Final diagnoses: Prosthetic mitral valve endocarditis Septic shock pneumonia Dysphagia. Plan discussed with Time Attestation Discharge Coordination Time (in mins): 45 Quality: Safe Use of Opioids Does Pt have an Active Cancer Diagnosis on the Problem List?: No Quality: Stroke Does the patient have a stroke diagnosis?: No Physical Exam Vital Signs: Vital Signs: Last Vital Signs Temp 97.8 F 09/21/24 11:05 Pulse 87 09/21/24 11:05 Resp 16 09/21/24 11:05 BP 117/72 09/21/24 11:05 Pulse Ox 95 09/21/24 11:05 O2 Del Method Room Air 09/21/24 11:05 O2 Flow Rate 2 09/19/24 23:51 BMI result Body Mass Index 28.9 DS: Data Data Completed and Pending Completed studies during hospitalization [Text1]: Procedures Assistance with Respiratory Ventilation, Less than 24 Consecutive Hours, Continuous Positive Airway Pressure (05/10/24) Sabianism of Cardiac Rhythm, Single (02/01/24) Labs on day of discharge: Laboratory Results - last 24 hr 09/20/24 09/21/24 17:31 06:58 WBC 8.4 RBC 3.62 L Hgb 10.0 L Hct 29.5 L MCV 81.5 MCH 27.6 MCHC 33.9 RDW 16.3 H Plt Count 95 L MPV 10.9 Absolute Nucleated RBC 0.000 Nucleated RBC % (auto) 0.0 Sodium 138 Potassium 3.6 Chloride 106 Carbon Dioxide 22 Anion Gap 14 BUN 9 Creatinine 0.57 Estim Creat Clear Calc 135.1 Estimated GFR > 60 Random Glucose 153 H Calcium 8.4 Total Creatine Kinase 13 L Urine Color Yellow Urine Appearance Clear Urine pH 5.5 Ur Specific [place] 1.020 Urine Protein 30 (1+) H Urine Glucose (UA) 500 H Urine Ketones Negative Urine Blood Negative Urine Nitrite Negative Ur Leukocyte Esterase Negative Urine RBC 0-2 Urine WBC 0-5 Ur Squamous Epith Cells 3-5 Urine Bacteria None Seen Hyaline Casts 0-2 Preliminary micro results at discharge 09/17/24 09:59 Blood Culture - Preliminary Blood - Venous Enterococcus/Streptococcus sp Discharge Plan Discharge Anticipated Discharge Date/Time: 09/21/24 18:23 Patient Disposition: Xfer Acute [facility] Discharge Diagnosis: Prosthetic valve endocarditis Referrals: Omer Mendez PA [Primary Care Provider] - 1 Week Discharge Medications: New ceftriaxone 2 gram Recon Soln 2 g IVPUSH Q24H Qty: 30 0RF daptomycin 350 mg Recon Soln 600 mg IV Q24H Qty: 30 0RF Continued Jardiance 10 mg tablet 10 mg PO DAILY Qty: 90 3RF furosemide 40 mg tablet 40 mg PO DAILY Qty: 90 0RF Protocol: Hold for SBP< HOLD for SBP < : 90 terazosin 10 mg Capsule 10 mg PO DAILY diltiazem HCl 120 mg capsule,extended release 24hr 120 mg PO BEDTIME Rx Instructions: Stop Amiodarone, Start Diltiazem atorvastatin 40 mg Tablet 20 mg PO BEDTIME miconazole nitrate 2 % Powder 1 appl TOPICAL DAILY PRN (Reason: Rash) cyanocobalamin (vitamin B-12) 1,000 mcg Tablet 1,000 mcg PO DAILY montelukast 10 mg Tablet 10 mg PO BEDTIME ketoconazole 2 % Cream 1 appl TOPICAL DAILY PRN (Reason: Rash) cyclobenzaprine 10 mg Tablet 10 mg PO BEDTIME PRN (Reason: Back Pain) aspirin 81 mg tablet,delayed release (DR/EC) 81 mg PO MOWEFR acetaminophen 500 mg Tablet 1,000 mg PO TID PRN (Reason: Back Pain) ipratropium-albuterol 20-100 mcg/actuation Mist 1 puff INHALATION QID PRN (Reason: Shortness Of Breath Or Wheezing) [id number] 50-325-40 mg tablet 1 tab PO Q6H PRN (Reason: Migraine Headache) diclofenac sodium 1 % Gel 2 g TOPICAL QID PRN (Reason: Pain) Rx Instructions: apply to single elbow, wrist or hand; for hand includes palm/fingers/back of hand mometasone 200 mcg/actuation Hfa Aerosol Inhaler 2 puff INHALATION BID fluticasone propionate [Flonase Allergy Relief] 50 mcg/actuation spray,suspension 1 spray intranasal BID omeprazole 20 mg capsule,delayed release(DR/EC) 40 mg PO BEDTIME@2100 cholecalciferol (vitamin D3) 25 mcg (1,000 unit) capsule 25 mcg PO DAILY saw palmetto 160 mg capsule 160 mg PO DAILY Rx Instructions: give with food (meal/snack) finasteride 5 mg tablet 5 mg PO DAILY clonazepam 0.5 mg tablet 0.25 - 0.5 mg PO DAILY PRN (Reason: Anxiety) Rx Instructions: PDMP 07/24/2023 Eliquis 5 mg tablet 5 mg PO BID metformin 750 mg tablet extended release 24 hr 750 mg PO BEDTIME Rx Instructions: Hold for 3 days tadalafil [Cialis] 5 mg tablet 5 mg PO BEDTIME eplerenone 25 mg tablet 12.5 mg PO DAILY Qty: 30 5RF Discharge Orders: Discharge Order (Routine); Ordered 09/21/24 Ordered By: Harjeet Lizama Diet: Diabetic diet Activity on Discharge: As tolerated Stand Alone Forms: Patient Portal Discharge page Print Language: Maltese Care Plan Goals: recovery fron prosthetic valve endocarditis and bacteremia Health Concerns: endocarditis of mitral valve bacteremia Plan of Treatment: take daptomycin and ceftriaxone as recommended request ID consult and cardiac thoracic consultations Assessment: See above
--- NOTE | 2024-09-21 12:59 | MHC.SLORD ---
Speech Language Pathology Order Status: MBSS is scheduled for 2:30pm. Radiology to arrange for transport.
--- NOTE | 2024-09-21 13:00 | P.PNIM_ITS ---
Subjective Subjective Date of Service: 09/21/24 Interval History: Fever resolved, echo shows mitral valve vegetations Physical Exam 2 Vital Signs: Vital Signs: Last Vital Signs Temp 97.8 F 09/21/24 11:05 Pulse 87 09/21/24 11:05 Resp 16 09/21/24 11:05 BP 117/72 09/21/24 11:05 Pulse Ox 95 09/21/24 11:05 O2 Del Method Room Air 09/21/24 11:05 O2 Flow Rate 2 09/19/24 23:51 BMI result Body Mass Index 28.9 General: AO X 3, no acute distress Resp: CTA bilateral CVS: S1,S2,RRR GI: +BS, NT, no distention Skin: No rash Neuro: motor grossly intact Psych: appropriate affect Objective Data Active Medications Acetaminophen (Acetaminophen 325 Mg Tablet) 975 mg PO TID PRN PRN Reason: Pain, Moderate(Pain Scale 4-6) Last Admin: 09/21/24 08:00 Dose: 975 mg Documented By: DOREEN Acetaminophen (Acetaminophen 325 Mg Tablet) 650 mg PO Q6H PRN PRN Reason: Fever >101 Acetaminophen/Butalbital/Caffeine (Butalb/Acetamin/Caff 50/325/40 Tablet) 1 tab PO Q6H PRN PRN Reason: Migraine Headache Albuterol/Ipratropium (Albuterol/Iprat 2.5/0.5mg 3 Ml Ampul.Neb) 3 ml INHALE QID PRN PRN Reason: Shortness Of Breath Or Wheezing Apixaban (Apixaban 5 Mg Tablet) 5 mg PO BID [facility] Last Admin: 09/21/24 08:01 Dose: 5 mg Documented By: DOREEN Aspirin (Aspirin Enteric Coated 81 Mg Tablet.) 81 mg PO MOWEFR [facility] Last Admin: 09/20/24 09:25 Dose: 81 mg Documented By: JOHANA Atorvastatin Calcium (Atorvastatin Calcium 20 Mg Tablet) 20 mg PO BEDTIME [facility] Last Admin: 09/20/24 20:40 Dose: 20 mg Documented By: HEDY Ceftriaxone Sodium (Ceftriaxone Sodium 2 Gm Vial) 2 gm IVPUSH Q24H [facility] Last Admin: 09/20/24 16:58 Dose: 2 gm Documented By: JOHANA Clonazepam (Clonazepam 0.5 Mg Tablet) 0.25 mg PO DAILY PRN PRN Reason: Anxiety Cyanocobalamin (Cyanocobalamin (Vitamin B-12) 1,000 Mcg Tablet) 1,000 mcg PO DAILY [facility] Last Admin: 09/21/24 07:59 Dose: 1,000 mcg Documented By: DOREEN Cyclobenzaprine HCl (Cyclobenzaprine Hcl 10 Mg Tablet) 10 mg PO TID PRN PRN Reason: Muscle Spasm Last Admin: 09/21/24 07:59 Dose: 10 mg Documented By: DOREEN Diltiazem HCl (Diltiazem Hcl Cd 120 Mg Cap.Er.Deg) 120 mg PO BEDTIME [facility]; Protocol Last Admin: 09/20/24 20:39 Dose: 120 mg Documented By: HEDY Empagliflozin (Empagliflozin 10 Mg Tablet) 10 mg PO DAILY [facility] Last Admin: 09/21/24 08:01 Dose: 10 mg Documented By: DOREEN Finasteride (Finasteride 5 Mg Tablet) 5 mg PO DAILY [facility] Last Admin: 09/21/24 08:00 Dose: 5 mg Documented By: DOREEN Fluticasone Propionate (Fluticasone Propionate Nasal 16 Gm [place]) 1 spray NOSTRIL-B BID [facility] Last Admin: 09/21/24 08:01 Dose: 1 spray Documented By: DOREEN Fluticasone Propionate (Fluticasone Propionate 250 Mcg Blst.W.Dev) 1 puff INHALE RBID [facility] Last Admin: 09/21/24 07:47 Dose: 1 puff Documented By: OYVANY Daptomycin 600 mg/ Sodium (Chloride) 62 mls @ 124 mls/hr IV Q24H [facility] Last Infusion: 09/20/24 17:32 Dose: Infused Documented By: JOHANA Lidocaine (Lidocaine 4 % Patch Adh..Patch) 2 patch TRANSDERMA DAILY [facility]; Protocol Last Admin: 09/21/24 08:01 Dose: Not Given Documented By: DOREEN Non-Admin Reason: Patient Refused Montelukast Sodium (Montelukast Sodium 10 Mg Tablet) 10 mg PO BEDTIME [facility] Last Admin: 09/20/24 20:38 Dose: 10 mg Documented By: HEDY Omeprazole (Omeprazole 40 Mg Capsule.Dr) 40 mg PO BEDTIME@2100 [facility] Last Admin: 09/20/24 20:39 Dose: 40 mg Documented By: HEDY Oxybutynin Chloride (Oxybutynin Chloride Er 5 Mg Tab.Er.24) 5 mg PO DAILY [facility] Last Admin: 09/21/24 08:00 Dose: 5 mg Documented By: DOREEN Vitamin D (Cholecalciferol (Vitamin D3) 25 Mcg Tablet) 25 mcg PO DAILY [facility] Last Admin: 09/21/24 08:01 Dose: 25 mcg Documented By: DOREEN Labs 09/21/24 06:58 09/21/24 06:58 Labs: Laboratory Results - last 24 hr 09/20/24 09/21/24 17:31 06:58 MCV 81.5 MCH 27.6 MCHC 33.9 RDW 16.3 H Plt Count 95 L MPV 10.9 Absolute Nucleated RBC 0.000 Nucleated RBC % (auto) 0.0 Anion Gap 14 Estim Creat Clear Calc 135.1 Estimated GFR > 60 Random Glucose 153 H Calcium 8.4 Total Creatine Kinase 13 L Urine Color Yellow Urine Appearance Clear Urine pH 5.5 Ur Specific [place] 1.020 Urine Protein 30 (1+) H Urine Glucose (UA) 500 H Urine Ketones Negative Urine Blood Negative Urine Nitrite Negative Ur Leukocyte Esterase Negative Urine RBC 0-2 Urine WBC 0-5 Ur Squamous Epith Cells 3-5 Urine Bacteria None Seen Hyaline Casts 0-2 Microbiology Microbiology Results: Microbiology 09/17/24 09:59 Blood Culture - Preliminary Blood - Venous Enterococcus/Streptococcus sp 09/17/24 09:59 Blood Culture - Final Blood - Venous Enterococcus faecalis Assessment and Plan (1) HTN (hypertension): Status: Acute (2) Endocarditis: Status: Acute Plan 69-year-old male with a past medical history of paroxysmal atrial flutter (on Eliquis), type 2 diabetes mellitus (on Jardiance), history of mitral valve prolapse/mitral regurgitation status post mitral valve replacement with a bioprosthetic valve, asthma-COPD overlap, hypertension, migraines, benign prostatic hyperplasia, and hyperlipidemia, presented to the emergency department with weakness, fever, chills, and body aches for one day. He was admitted to the ICU in shock, which responded to IV fluids. Urine and blood cultures grew Enterococcus faecalis. He was initially treated with ceftriaxone and azithromycin for a possible respiratory source. Vancomycin was added on 09/18 for Enterococcus, but later switched to daptomycin and ceftriaxone per Infectious Disease (ID) recommendations due to persistent bacteremia. * Initial positive blood culture: 09/15 * Repeat culture: 09/17 ? also positive * Latest cultures from 09/20 ? results pending A transthoracic echocardiogram on 09/20 revealed vegetation on the mitral valve. Cardiology has recommended transfer to [facility]. Of note, the patient had a stroke in late July, and there is now concern for septic embolism as the etiology of the stroke. Paroxysmal atrial fibrillation -acceptable control at this time -continue Eliquis, ASA, cardizem for rate control Diabetes type 2 Sliding scale, jardiance and diabetic diet Dysphagia, likely related to stroke -speech consult Full code [place] Patient requires ongoing hospitalization for IV antibiotics to treat Enterococcus bacteremia Quality Stroke Does the patient have a stroke diagnosis?: No VTE Prior VTE?: No VTE Risk Level:: Medical - moderate - high VTE Device Contraindication: N/A - Device Ordered VTE Drug Contraindication: N/A - Med Ordered
[2024-09-21 15:36] VITALS: BP 119/81; PULSE 75; RESP 16; TEMP 37.1; O2SAT 96
[2024-09-21] MEDS: cefTRIAXone sodium 2 GM VIAL IVPUSH (16:44)
[2024-09-21] MEDS: DAPTOmycin 600 MG in 0.9 % Sodium Chloride 50 ML 124 MG IV (16:44)
--- NOTE | 2024-09-21 17:25 | MHC.SL.IMP ---
Date of Plan of Treatment: 09/21/24 Onset of Symptoms/Illness: 09/20/24 Date Treatment Started: 09/20/24 Admitting Diagnosis: Hypertension, Endocarditis Primary Speech & Language Diagnosis: R13.12 Oropharyngeal Phase Dysphagia Secondary Speech & Language Diagnosis: R47.1 Dysarthria Reason for Today's Visit: [id number] Modified Barium Swallow Study Pre-evaluation Dietary Consistencies: Regular Pre-evaluation Liquid Consistency: Thin Pre-evaluation Medication Administration: Whole with Liquid Medical History: Modified Barium Swallow Study Fluoroscopic Evaluation of Swallowing Function CPT Code 44146 Evaluation Year: 2024 Reason for Study: Dysphagia after stroke in July Referring Physician: Harjeet Lizama MD Evaluating Clinician: Sejal Drummond MA, CCC-WIRE CHARGER Study Number: 1 Patient Name: Jared Jama Status: Inpatient, Wheelchair Age: 69 Gender: Male Medical History Medical History CVA (cerebral vascular accident) Paroxysmal atrial flutter Prosthetic valve dysfunction Atrial flutter Elevated cholesterol History of GI diverticular bleed BPH (benign prostatic hyperplasia) History of blood transfusion GERD (gastroesophageal reflux disease) Type 2 diabetes mellitus Depression with anxiety PTSD (post-traumatic stress disorder) Migraine COPD, mild Asthma HTN (hypertension) Obstructive sleep apnea Enlarged RV (right ventricle) Mitral regurgitation Surgical History S/P MVR (mitral valve replacement) History of esophagogastroduodenoscopy (EGD) H/O colonoscopy History of excision of lesion (06/25/22) History of arthroscopy of right knee History of left inguinal hernia repair History of repair of right rotator cuff History of repair of left rotator cuff History of mitral valve replacement Hx of cardiac cath Current (pre-evaluation) Intake/Diet: Route: PO Diet Grade: Regular Liquid Consistencies: Thin Pre-Study Functional Oral Intake Scale (FOIS): 7- Total oral intake with no restrictions Pain: None reported at time of study SUBJECTIVE: Patient is a 69 year old male brought to the ED with concerns of weakness, fever, chills, and body aches. He was admitted to the ICU w/ septic shock secondary to UTI. Patient also presented with dysphagia, with onset of symptoms after a CVA in late July. Patient c/o globus sensation, decrease in taste sensation/decreased appetite, and throat clearing when drinking liquids too quickly. Patient says he must take very small bites and chew food well. He also tucks his chin with some relief to help clear residuals. At bedside, patient presented with R-lingual weakness, mildly delayed swallow, multiple swallow attempts, and inconsistent throat clear. He was subsequently sent for a modified barium swallow study to further evaluate the extent of his pharyngeal dysphagia. Pertinent medical history includes CVA, GERD, COPD, asthma, hx mitral valve prolapse/mitral regurgitation s/p mitral valve replacement w/ a bioprosthetic valve, and ANJELICA. Food and Liquid Trials: Oral Impairment: Lip Closure: 1=Interlabial escape; no progression to anterior tip Oral Impairment: Tongue Control During Bolus Hold: 2=Posterior escape of less than half of bolus Oral Impairment: Bolus Preparation/Mastication: 1=Slow prolonged chewing/mashing with complete re-collection Oral Impairment: Bolus Transport/Lingual Motion: 1= Delayed initiation of tongue motion Oral Impairment: Oral Residue: 1=Trace residue lining oral structures Oral Impairment:Initiation of Pharyngeal Swallow: 2=Bolus head at posterior laryngeal surface of epiglottis Pharyngeal Impairment: Soft Palate Elevation: 0=No bolus between soft palate (SP)/pharyngeal wall (PW) Pharyngeal Impairment: Laryngeal Elevation: 1=Partial thyroid cartilage/arytenoids to epiglottic petiole movement Pharyngeal Impairment: Anterior Hyoid Excursion: 1=Partial anterior movement Pharyngeal Impairment: Epiglottic Movement: 2=No inversion Pharyngeal Impairment: Laryngeal Vestibular Closure:: 1=Incomplete: narrow column air/contrast in laryngeal vestibule Pharyngeal Impairment: Pharyngeal Stripping Wave: 0=Present: complete Pharyngeal Impairment: Pharyngeal Contraction: Did not test Pharyngeal Impairment: Pharyngoesophageal Segment Openin=Partial distention/partial duration: partial obstruction of flow Pharyngeal Impairment: Tongue Base (TB) Retraction: 0=No contrast between tongue base and posterior pharyngeal wall Pharyngeal Impairment: Pharyngeal Residue: 2=Collection of residue within or on pharyngeal structures Pharyngeal Impairment: Esophageal Clearance Upright Position: Did not test Impressions and Recommendations OBJECTIVE: Time-out: performed at 15:00 Evaluation Start: 14:30; Stop: 14:35 Patient Positioning: Seated 70-90 degrees Viewing Planes: LATERAL ONLY Contrast: MBSImP? Standardized Protocol using commercially prepared, standardized Barium viscosities, including: Varibar? THIN LIQUID (40% w/v, <15 cps) , Varibar? NECTAR (40% w/v, <150-450 cps) , Varibar? THIN HONEY (40% w/v, <800-1800 cps) , Varibar? PUDDING (40% w/v, <8045-8367 cps) , 1/2 Shortbread Cookie (1 x1 x.25 ) MBSImP ID: [id number] [facility] Results: Lip closure for intraoral bolus containment resulted in interlabial escape, without progression to the anterior lip. Tongue control during bolus hold resulted in posterior escape of less than half of the bolus. Bolus preparation and mastication resulted in slow, prolonged chewing/mashing but with complete re-collection. Bolus transport/lingual motion demonstrated delayed initiation of tongue motion. Oral residue was a trace, lining oral structures. Initiation of the pharyngeal swallow occurred as the bolus head was at the posterior laryngeal surface of the epiglottis. Soft palate elevation resulted in no bolus between the soft palate and the pharyngeal wall. Laryngeal elevation was decreased, with partial superior movement of the thyroid cartilage/partial approximation of the arytenoids to the epiglottic petiole. Anterior hyoid excursion demonstrated partial anterior movement. Epiglottic movement resulted in no inversion. Laryngeal vestibular closure was incomplete, with a narrow column of air/contrast noted within the laryngeal vestibule at the height of the swallow. Pharyngeal stripping wave was present and complete. Pharyngeal contraction could not be determined due to logistical reasons not related to physiologic impairment. Pharyngoesophageal segment opening demonstrated partial distension/partial duration, with partial obstruction of bolus flow. Tongue base retraction allowed no contrast between the retracted tongue base and the posterior pharyngeal wall. Pharyngeal residue was a collection of residue within or on pharyngeal structures. Esophageal clearance in the upright position could not be assessed due to logistical reasons not related to physiologic impairment. Oral Impairment Score: 6 Pharyngeal Impairment Score: 8 (absence of score, component 13) Esophageal Impairment Score: --- (absence of score, component 17) Laryngeal Penetration and Aspiration: Neither penetration nor aspiration was observed in today's study with Cookie. Penetration was observed in today's study. Pudding-thick, Honey-thick, Thin Contrast entered the airway, remained above the vocal folds, and were ejected from the airway. [place]-thick Contrast entered the airway, contacted the vocal folds, and was ejected from the airway. ASSESSMENT: This exam was performed by the radiologist and the speech pathologist. Patient was sitting in a wheelchair for lateral view only. He was able to feed himself and trialed thin (individual & rapid cup sips), nectar thick (individual cup sips), honey thick (individual cup sips), puree, and regular solids. There was interlabial escape but no spilling beyond the heriberto border. Impaired tongue control with premature posterior escape of <50% bolus, which collected in the valleculae prior to the pharyngeal swallow trigger. Mastication was mildly slowed and prolonged. Mildly delayed posterior lingual motion, with brisk movement. Trace residue seen lining the tongue and floor of mouth on both solids and liquids. Pharyngeal swallow trigger initiated as the bolus head reached the posterior laryngeal surface of the epiglottis. No evidence of nasopharyngeal reflux. Partial laryngeal elevation with partial to no epiglottic inversion and incomplete laryngeal vestibular closure. There was penetration above the vocal folds on trials of thin, honey thick, and pureed consistencies. A trace amount of contrast entered the airway and ejected either spontaneously or with a throat clear. There was penetration to the level of the vocal folds on nectar thick liquid. Patient with sensitive protective reflex, as he immediately cleared his throat and cleared contrast from the laryngeal vestibule. No aspiration seen during this exam. There was a moderate degree of residue, which collected mostly in the valleculae, but also coated the tongue base and pyriforms. Patient was able to clear most residue on a dry swallow with chin tuck posturing when bolus size was smaller. On larger quantities, patient exhibited more difficulty clearing residue. The following compensatory strategies have not been used until today's study, but when employed, improved swallowing function: Bolus Volume Change decreased Pharyngeal Residue Chin Tuck decreased Pharyngeal Residue Additional Swallow(s) per Bolus decreased Pharyngeal Residue Throat Clear eliminated Penetration The following compensatory strategies appear to have had a negative impact on swallowing function: [place]-thick Liquid increased Penetration Honey-thick Liquid increased Pharyngeal Residue Liquid Intake Recommendation: Thin Liquid Intake Strategies: Small Sips, No Straws, Double Swallow Dietary Recommendations: Regular Medication Administration: Whole with Puree Please contact the pharmacy regarding appropriate crushable or liquid drug formulations that are available whenever modified delivery is recommended. Compensatory Strategies Recommended: Sitting Upright (90 deg), Chin Tuck, Double Swallow, No Straw, Liquids from Cup, Liquids from Spoon, Small Bites and Sips, Alternate Liquids/Solids, Rate of Ingestion Change, Avoid Specific Foods Supervision during eating and or drinking: Intermittent Supervision Recommended Treatments: Pharyngeal Resistive Exer, Compens. Strategy Educat. Recommendation for Speech Therapy: Outpatient Speech Therapy Inpatient Speech Therapy Modified Barium Swallow Study - Outpatient Text Comment: Intake Recommendations: Route: PO Diet Grade: Regular Liquid Consistencies: Thin Post-Study Functional Oral Intake Scale (FOIS): 6- Total oral intake with no special preparation, but must avoid specific foods or liquid items Patient presents with mild to moderate oropharyngeal dysphagia, marked by the following impairments: Oral phase mildly impaired by: -Reduced tongue control with premature posterior escape -Slowed and prolonged mastication -Delayed AP transport Pharyngeal phase moderately impaired by: -Partial laryngeal elevation -Partial to no epiglottic inversion -Incomplete laryngeal vestibular closure -Penetration on liquids and semi-solid -Moderate pharyngeal retention Oral phase was mildly slowed and delayed, but with good overall clearance. Pharyngeal swallow trigger was delayed. Compromised airway protection with partial, at times, absent epiglottic inversion and incomplete laryngeal vestibular closure. There was penetration seen with thin liquids, thickened liquids, and puree. Patient responded sensitively when contrast entered the laryngeal vestibule and ejected contrast with spontaneous throat clearing. No evidence of aspiration on this exam. There was a moderate amount of retention in the pharynx, which collected mostly in the valleculae. Dry swallows and chin tuck maneuver were effective in reducing residuals. Recommend continue on a REGULAR texture diet and THIN LIQUIDS, pills WHOLE in LIQUID or PUREE. Patient is recommended compensatory feeding strategies to reduce the risk of aspiration and to promote pharyngeal clearance: -Take one small sip at a time -Avoid chain sipping or ?chugging? behavior -Avoid the use of straws -Drink via teaspoon or cup -Clear throat as needed -Avoid foods which are overly hard/tough; avoid mixed consistencies -Chew food well -Dry swallow after each bite/sip -After each bite, tuck chin and swallow again to clear residue -Maintain upright 90 degree position during PO intake and for at least 30 minutes afterwards Therapy Recommendations: Recommend continue with speech therapy for the treatment of dysphagia during inpatient stay and at the next level of care. The following compensatory strategies and/or therapeutic exercises will be part of the upcoming therapy/management plan: Bolus Volume Change Chin Tuck Additional Swallow(s) per Bolus Throat Clear Senior Living Goals: ? The patient will tolerate the least restrictive diet with a safe/efficient swallow to maintain adequate nutrition and hydration. ? The patient will demonstrate improved swallowing function via repeat clinical evaluation, videoendoscopy/videofluoroscopy and/or patient self-rating scores. ? The patient and/or family will participate in further education for swallowing goals. Short Term Goals: ? Diet - The patient will tolerate a regular diet with thin liquids without signs or symptoms of penetration/aspiration 100% of the time. - The patient will participate in therapeutic PO trials with the WIRE CHARGER. ? Guidelines - The patient will comply with/recall the following guidelines/strategies 100% of the time with minimal cuing: Bolus Volume Change, Rate of Ingestion Change, Chin Tuck, Additional Swallow(s) per Bolus, Throat Clear, No Straws. ? Independent Home Exercise - The patient will perform 10 repetitions of the Effortful Swallow, Cammy Maneuver, Cyndy Maneuver 2 times a day with 100% accuracy and no cuing as part of a home exercise program. ? Structured Therapy - The patient will demonstrate 100% accuracy and require minimal cuing in structured swallowing therapy with the WIRE CHARGER using the following exercises/therapy approaches and therapy assisted devices: Effortful Swallow, Cammy Maneuver, Cyndy Maneuver, . ? Education - The patient, family will verbalize/demonstrate understanding of the results of this evaluation, the above recommendations, and the swallowing guidelines. Frequency/Duration: M-F while inpatient Date Range for Service Requested: Timeline to reassess: 3 months Clinician - Supplemental, Miscellaneous Communication: It is important to note MBSS objective studies are snapshots in time and Patient function might vary with factors such as time of day or concomitant medical conditions. For this reason, the final treatment plan for this patient should rest with their medical care team. Additional recommendations should be considered with the totality of the Patient in mind. Thank for the opportunity to participate in the care of this patient. If you have any questions about the content of this report, please contact the [facility] at [facility]. Education: Education regarding findings from today's study and plans for therapy were provided to Patient only through Verbal Instruction. Understanding was expressed by the Patient only. Senior Sales Manager Clinician/Clinical Fellow: No Supervisory Statement: N/A Speech Language Pathologist: Sejal Drummond M.A., [facility]-WIRE CHARGER
[2024-09-21 19:24] VITALS: BP 154/79; PULSE 84; RESP 17; TEMP 36.8; O2SAT 91
== END 2024-09-21 19:15 | disposition short-term general hospital (02) | DRG 871 ==
LOC: HO.ED 09-16 00:34 → HO.EDOVER 09-16 01:11 → HO.ICU 09-16 02:16 → HO.IMC 09-17 15:43
PROVIDERS: Internal Medicine Pulmonary Disease; Admitting Provider Registered Nurse Community Health; Emergency Provider Emergency Medicine; PCP Physician Assistant; Visit Provider Internal Medicine
DX: A41.81 Sepsis due to Enterococcus (principal); I33.0 Acute and subacute infective endocarditis; J18.9 Pneumonia, unspecified organism; R65.21 Severe sepsis with septic shock; N39.0 Urinary tract infection, site not specified; J44.0 Chronic obstructive pulmonary disease with (acute) lower respiratory infection; E11.9 Type 2 diabetes mellitus without complications; I48.0 Paroxysmal atrial fibrillation; Q63.1 Lobulated, fused and horseshoe kidney; I69.391 Dysphagia following cerebral infarction; R13.10 Dysphagia, unspecified; J45.909 Unspecified asthma, uncomplicated; Z20.822 Contact with and (suspected) exposure to COVID-19; Z95.2 Presence of prosthetic heart valve; Z87.891 Personal history of nicotine dependence; Z79.01 Long term (current) use of anticoagulants; Z79.82 Long term (current) use of aspirin; Z79.84 Long term (current) use of oral hypoglycemic drugs; Z79.899 Other long term (current) drug therapy
CPT/HCPCS: 0241U; 36415; 71045; 71250; 74176; 74230; 80048; 80051; 80053; 80202; 80307; 81001; 82010; 82040; 82550; 82565; 82803; 83605; 83735; 83880; 84100; 84484; 85025; 85027; 85610; 87040; 87077; 87086; 87088; 87186; 87205; 87633; 92610; 92611; 93005; 93306; 94640; 97162; 99285; J0131; J0456; J0696; J0878; J3370; J3371; J7120; P9047

== ENCOUNTER → 2024-09-15 21:42 | Outpatient (BNV) | payer MEDICARE, OTHER, SELFPAY | PROVIDERS: Emergency Provider Emergency Medicine; Visit Provider Radiology Diagnostic Radiology | DX: R53.1 Weakness (principal); R50.9 Fever, unspecified; J98.11 Atelectasis; J90 Pleural effusion, not elsewhere classified | CPT/HCPCS: 71045; 71250; 74176 ==

== ENCOUNTER → 2024-09-15 21:50 | Outpatient (BNV) | payer OTHER, MEDICARE, SELFPAY | PROVIDERS: Admitting Provider Registered Nurse Community Health; Emergency Provider Emergency Medicine; Visit Provider Internal Medicine Cardiovascular Disease | DX: I48.91 Unspecified atrial fibrillation (principal); I45.10 Unspecified right bundle-branch block | CPT/HCPCS: 93010 ==

== ENCOUNTER 2024-09-16 00:53 | Outpatient (BNV) | payer OTHER, MEDICARE, SELFPAY | END 2024-09-19 19:16 | PROVIDERS: Admitting Provider Registered Nurse Community Health; Emergency Provider Emergency Medicine; PCP Physician Assistant; Visit Provider Radiology Neuroradiology | DX: J90 Pleural effusion, not elsewhere classified (principal) | CPT/HCPCS: 71045 ==

== ENCOUNTER 2024-09-16 00:53 | Outpatient (BNV) | payer OTHER, MEDICARE, SELFPAY | END 2024-09-20 07:00 | PROVIDERS: Admitting Provider Registered Nurse Community Health; Emergency Provider Emergency Medicine; PCP Physician Assistant; Visit Provider Internal Medicine | DX: I35.0 Nonrheumatic aortic (valve) stenosis (principal); Z95.2 Presence of prosthetic heart valve | CPT/HCPCS: 93306 ==

== ENCOUNTER 2024-09-16 00:53 | Outpatient (BNV) | payer OTHER, SELFPAY | END 2024-09-21 14:30 | PROVIDERS: Admitting Provider Registered Nurse Community Health; Emergency Provider Emergency Medicine; PCP Physician Assistant; Visit Provider Radiology Diagnostic Radiology | DX: R13.10 Dysphagia, unspecified (principal) | CPT/HCPCS: 74230 ==

== ENCOUNTER → 2024-09-16 00:53 | Outpatient (BNV) | payer OTHER, MEDICARE, SELFPAY | PROVIDERS: Admitting Provider Registered Nurse Community Health; Emergency Provider Emergency Medicine; PCP Physician Assistant; Visit Provider Internal Medicine | DX: A41.9 Sepsis, unspecified organism (principal); R65.21 Severe sepsis with septic shock; N39.0 Urinary tract infection, site not specified | CPT/HCPCS: 99222 ==

== ENCOUNTER → 2024-09-16 00:53 | Outpatient (BNV) | payer OTHER, MEDICARE, SELFPAY | PROVIDERS: Admitting Provider Registered Nurse Community Health; Emergency Provider Emergency Medicine; PCP Physician Assistant; Visit Provider Internal Medicine Pulmonary Disease | DX: I48.3 Typical atrial flutter (principal); E11.9 Type 2 diabetes mellitus without complications; R78.81 Bacteremia; N39.0 Urinary tract infection, site not specified | CPT/HCPCS: 99291 ==

== ENCOUNTER → 2024-09-16 00:53 | Outpatient (BNV) | payer OTHER, SELFPAY | PROVIDERS: Admitting Provider Registered Nurse Community Health; Emergency Provider Emergency Medicine; PCP Physician Assistant; Visit Provider Hospitalist | DX: I10 Essential (primary) hypertension (principal); I38 Endocarditis, valve unspecified; T82.6XXA Infection and inflammatory reaction due to cardiac valve prosthesis, initial encounter; I33.0 Acute and subacute infective endocarditis | CPT/HCPCS: 99232; 99239; 99499 ==

== ENCOUNTER → 2024-09-16 00:53 | Outpatient (BNV) | payer OTHER, MEDICARE, SELFPAY | PROVIDERS: Admitting Provider Registered Nurse Community Health; Emergency Provider Emergency Medicine; PCP Physician Assistant; Visit Provider Registered Nurse Community Health | DX: A41.9 Sepsis, unspecified organism (principal); R65.21 Severe sepsis with septic shock; N39.0 Urinary tract infection, site not specified | CPT/HCPCS: 99291 ==

== ENCOUNTER → 2024-09-16 00:53 | Outpatient (BNV) | payer OTHER, MEDICARE, SELFPAY | PROVIDERS: Admitting Provider Registered Nurse Community Health; Emergency Provider Emergency Medicine; PCP Physician Assistant; Visit Provider Internal Medicine | DX: T82.6XXA Infection and inflammatory reaction due to cardiac valve prosthesis, initial encounter (principal); I33.0 Acute and subacute infective endocarditis | CPT/HCPCS: 99223 ==

== ENCOUNTER 2024-10-12 08:35 | Outpatient (AMB) | payer MEDICARE, OTHER, SELFPAY ==
--- NOTE | 2024-10-12 08:37 | A.OFFVIS_ITS ---
Intake Visit Reasons: 6m follow up Intake Note: Pt presents to the office today for a 6 month follow up. PVR:0ml Allergies DUSTIN Inhibitors [Dustin Inhibitors] Allergy (Severe, Verified 10/12/24 08:38) Anaphylaxis pineapple [PINEAPPLE] Allergy (Severe, Verified 10/12/24 08:38) Angioedema thimerosal [Thimerosal] Allergy (Severe, Verified 10/12/24 08:38) Angioedema fluoxetine [From PROZAC] Allergy (Intermediate, Verified 10/12/24 08:38) REQUIRED HOSPITALIZATION Penicillins Allergy (Intermediate, Verified 10/12/24 08:38) Rash tamsulosin Allergy (Mild, Verified 10/12/24 08:38) tacycardia aspartame [ASPARTAME] Allergy (Unknown, Verified 10/12/24 08:38) Unknown hexachlorophene [From PHISOHEX] Allergy (Unknown, Verified 10/12/24 08:38) Unknown melon Allergy (Unknown, Verified 10/12/24 08:38) Unknown perfume Allergy (Unknown, Verified 10/12/24 08:38) Unknown povidone-iodine [From BETADINE] Allergy (Unknown, Verified 10/12/24 08:38) Unknown soap [Betadine] Allergy (Unknown, Verified 10/12/24 08:38) Unknown codeine [Codeine] Adverse Reaction (Intermediate, Verified 10/12/24 08:38) wakes up combative meperidine [From Demerol] Adverse Reaction (Intermediate, Verified 10/12/24 08:38) Hallucinations monosodium glutamate Adverse Reaction (Intermediate, Verified 10/12/24 08:38) Headache morphine Adverse Reaction (Intermediate, Verified 10/12/24 08:38) wakes up combative dexon Allergy (Unknown, Uncoded 10/12/24 08:38) Unknown GLUE IN SHOES Allergy (Unknown, Uncoded 10/12/24 08:38) UNKNOWN PLASTIC TAPE Allergy (Unknown, Uncoded 10/12/24 08:38) skin problems POLYGLACTIC ACID(DEXON & VICRYL) Allergy (Unknown, Uncoded 10/12/24 08:38) UNKNOWN vicryl Allergy (Unknown, Uncoded 10/12/24 08:38) Unknown HPI Comments Details: Jared is a pleasant male. He is a patient of Dr. Atkinson. He seen for the following urologic issues - Lower urinary tract symptoms - detrusor hyperactivity and impaired contractility Multiple significant events since last visit Mitral valve catheter replacement for failure Postprocedure suffered urinary tract infection with sepsis and now has valve vegetation Had been placed on Jardiance for failure - had multiple impacts from Jardiance including polydipsia, nocturia x3 secondary to polyuria Original cardiac trials using Jardiance for failure excluded patients with BPH and incomplete bladder emptying secondary to high risk for urinary tract infect ion Recommendation to cease Jardiance since high risk for recurrent sepsis and possible May need to restart metformin Has upcoming appointment with Endocrine in 6 weeks Has been on combination therapy with finasteride, tadalafil, and terazosin Failed previous oxybutynin and tolterodine - 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 Lower urinary tract symptoms Progressive weakness of stream, nocturia, incomplete bladder emptying Background diabetes for greater than 10 years Current therapy with finasteride and terazosin Prior therapy with alpha blockers - did not tolerate tamsulosin secondary to increased heart rate 11/08 Cystoscopy Bladder neck open Trabeculation grade 3 - small diverticulum [facility] Medical History CVA (cerebral vascular accident) Paroxysmal atrial flutter Prosthetic valve dysfunction Atrial flutter Elevated cholesterol History of GI diverticular bleed BPH (benign prostatic hyperplasia) History of blood transfusion GERD (gastroesophageal reflux disease) Type 2 diabetes mellitus Depression with anxiety PTSD (post-traumatic stress disorder) Migraine COPD, mild Asthma HTN (hypertension) Obstructive sleep apnea Enlarged RV (right ventricle) Mitral regurgitation Surgical History S/P MVR (mitral valve replacement) History of esophagogastroduodenoscopy (EGD) H/O colonoscopy History of excision of lesion (06/25/22) History of arthroscopy of right knee History of left inguinal hernia repair History of repair of right rotator cuff History of repair of left rotator cuff History of mitral valve replacement Hx of cardiac cath Family History Father Rheumatic fever Mother No problems noted. Sister Hx of aortic valve repair Brother Mitral valve replaced Social History Household Members: Family Housing: House Do you presently have visiting nurse or other home services: No Alcohol intake: current Alcohol intake frequency: does not drink Comment: refusing alarms Patient Tobacco Use Status: Former Tobacco user Second Hand Smoke Exposure: No Advance Directives Date on File: 02/03/24 service: No Current occupational status: retired Current occupation: ambidextrous, 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 Review of Systems Const Denies chills and Denies fever(s) Card Reports no additional complaints and Denies syncope Resp Denies cough GI Denies abdominal pain and Denies heartburn Reports as per HPI and Denies change in libido Neuro Denies syncope Psych Denies change in libido Endo Denies change in libido Physical Exam Const General: cooperative, healthy appearing, comfortable and no acute distress Orientation/consciousness: patient oriented x3 HEENT Face and sinus: Yes normal facial exam Mouth: moist mucous membranes Neck Neck: Yes normal visual inspection, Yes full ROM and Yes trachea midline Chest Chest palpation & inspection: normal inspection of the chest Resp Effort & Inspection: normal respiratory effort, able to speak in complete sentences and no respiratory distress GI Inspection: Yes normal to inspection Back/Spine/Pelvis Cervical Spine: normal cervical lordosis Thoracic/Lumbar Spine: thoracic and lumbar spine normal to inspection Skin General skin exam: no rashes or lesions noted Neuro General: patient oriented x3, gait normal, tone normal and moves all extremities Extrem General: Yes normal to inspection and Yes capillary refill normal Office Procedures Post Void Residual Post Residual Void Post Void Residual (PVR): 0 42505-Ihit Void Residual by ultrasound Results AMB Urinalysis, Automated UA Leukoctes 0 Brenna/uL Last Edit by Waleska Mac CMA on 10/12/24 08:49 UA Nitrite Negative Last Edit by Waleska Mac CMA on 10/12/24 08:49 UA Urobilinogen 0.2 mg/dL Last Edit by Waleska Mac CMA on 10/12/24 08:49 UA Protein 15 mg/dL Last Edit by Waleska Mac CMA on 10/12/24 08:49 UA pH 6.0 Last Edit by Waleska Mac CMA on 10/12/24 08:49 UA Blood 0 Kory/uL Last Edit by Waleska Mac CMA on 10/12/24 08:49 UA Specific [place] 1.010 Last Edit by Waleska Mac CMA on 10/12/24 08:49 UA Ketone Negative Last Edit by Waleska Mac CMA on 10/12/24 08:49 UA Bilirubin 0 mg/dL Last Edit by Waleska Mac CMA on 10/12/24 08:49 UA Glucose 1000 mg/dL Last Edit by Waleska Mac CMA on 10/12/24 08:49 Results Reviewed Results Reviewed: Laboratory Last Values Urine pH (Auto) 6.0 10/12/24 08:43 Specific [place] (Auto) 1.010 10/12/24 08:43 Urine Protein (Auto) 15 mg/dL 10/12/24 08:43 Glucose (UA)(Auto) 1000 mg/dL 10/12/24 08:43 Urine Ketones (Auto) Negative 10/12/24 08:43 Urine Blood (Auto) 0 Kory/uL 10/12/24 08:43 Urine Nitrite (Auto) Negative 10/12/24 08:43 Urine Bilirubin (Auto) 0 mg/dL 10/12/24 08:43 Urine Urobilinogen (Auto) 0.2 mg/dL 10/12/24 08:43 Leukocyte Esterase (Auto) 0 Brenna/uL 10/12/24 08:43 Assessment & Plan Assessment & Plan (1) Nocturia more than twice per night: Code(s): R35.1 - Nocturia Category: Medical (2) Overactive bladder: Code(s): N32.81 - Overactive bladder Category: Medical (3) BPH (benign prostatic hyperplasia): Code(s): N40.0 - Benign prostatic hyperplasia without lower urinary tract symptoms Category: Medical Plan Cease Jardiance Six-month follow-up Orders: Orders AMB Urinalysis Automated Today N39.0 - Urinary tract infection, site not specified AMB Post Void Residual by ultrasound Today N40.0 - Benign prostatic hyperplasia without lower urinary tract symptoms Medications: Discontinued empagliflozin (Jardiance) Discontinued Reason: Doctor's Order 10 mg PO DAILY 90 tabs 3RF Patient Instructions: This note is constructed using voice recognition software. While every effort has been made to ensure accuracy bone drier operator errors may have been included. Imaging studies, laboratory and physical exam results were discussed and reviewed in detail. No major barriers to patient understanding were identified. An opportunity to ask questions regarding the treatment plan was provided. All questions were answered. The patient expressed understanding and agreement with the above treatment plan. The patient is aware they should contact our office by phone for worsening of their current condition or the appearance of new urologic symptoms. Compliance is encouraged with any medications and followup testing that is ordered. It is a privilege to participate in the urologic care of your patient. If you have any questions or concerns regarding treatment for the above conditions, or other urologic issues, please do not hesitate to contact me. The office te félix contact is [phone]. Sincerely, Dr Pierre Rajput MD, [facility] - Urology Compassionate Specialist Care for the Genitourinary System Coding Level of Care Code Est Pt Level 4 (51150) Complex EM visit Add On G2211 Diagnoses Nocturia more than twice per night R35.1 Overactive bladder N32.81 BPH (benign prostatic hyperplasia) N40.0 CPT Codes Post Residual Void - PVR CPT Code: 22189-Icsl Void Residual by ultrasound ([id number])
== END 2024-10-12 09:22 | disposition home or self-care (01) ==
LOC: HO.HUSH 08:35
PROVIDERS: PCP Internal Medicine; Visit Provider Urology
DX: R35.1 Nocturia (principal); N32.81 Overactive bladder; N40.0 Benign prostatic hyperplasia without lower urinary tract symptoms; N39.0 Urinary tract infection, site not specified
CPT/HCPCS: 99214; G2211

== ENCOUNTER → 2024-10-12 08:35 | Outpatient (BNVA) | payer MEDICARE, OTHER, SELFPAY | PROVIDERS: PCP Internal Medicine; Visit Provider Urology | DX: N40.1 Benign prostatic hyperplasia with lower urinary tract symptoms (principal); R35.1 Nocturia; N32.81 Overactive bladder; R39.12 Poor urinary stream; R39.14 Feeling of incomplete bladder emptying | CPT/HCPCS: 51798; 81003; 99212 ==

== ENCOUNTER 2025-03-03 12:39 | Outpatient (AMB) | payer MEDICARE, OTHER, SELFPAY ==
[2025-03-03 12:47] VITALS: BP 124/82; PULSE 55; BMI 28.5
--- NOTE | 2025-03-03 12:47 | MHC.OFFVIS ---
Vital Signs 03/03/25 12:47 Height 5 ft 10 in Weight 198 lb 6.656 oz BMI 28.5 BP 124/82 Blood Pressure Location Lt brachial Position Sitting Pulse 55 Intake Visit Reasons: follow-up clearance dental now 06/01 upper and lowe Intake Note: Follow-up clearance for dental work, Thyroid, and then 06/01 upper and lower endo with aspirn and eliguis instructions Stock Control Clerk Required: No Concrete Batching Plant Operator: Concrete Batching Plant Operator Present Accompanied by: Spouse Allergies DUSTIN Inhibitors (Dustin Inhibitors) Allergy (Severe, Verified 10/12/24 08:38) Anaphylaxis pineapple (PINEAPPLE) Allergy (Severe, Verified 10/12/24 08:38) Angioedema thimerosal (Thimerosal) Allergy (Severe, Verified 10/12/24 08:38) Angioedema fluoxetine (From PROZAC) Allergy (Intermediate, Verified 10/12/24 08:38) REQUIRED HOSPITALIZATION Penicillins Allergy (Intermediate, Verified 10/12/24 08:38) Rash tamsulosin Allergy (Mild, Verified 10/12/24 08:38) tacycardia aspartame (ASPARTAME) Allergy (Unknown, Verified 10/12/24 08:38) Unknown hexachlorophene (From PHISOHEX) Allergy (Unknown, Verified 10/12/24 08:38) Unknown melon Allergy (Unknown, Verified 10/12/24 08:38) Unknown perfume Allergy (Unknown, Verified 10/12/24 08:38) Unknown povidone-iodine (From BETADINE) Allergy (Unknown, Verified 10/12/24 08:38) Unknown soap (Betadine) Allergy (Unknown, Verified 10/12/24 08:38) Unknown codeine (Codeine) Adverse Reaction (Intermediate, Verified 10/12/24 08:38) wakes up combative meperidine (From Demerol) Adverse Reaction (Intermediate, Verified 10/12/24 08:38) Hallucinations monosodium glutamate Adverse Reaction (Intermediate, Verified 10/12/24 08:38) Headache morphine Adverse Reaction (Intermediate, Verified 10/12/24 08:38) wakes up combative dexon Allergy (Unknown, Uncoded 10/12/24 08:38) Unknown GLUE IN SHOES Allergy (Unknown, Uncoded 10/12/24 08:38) UNKNOWN PLASTIC TAPE Allergy (Unknown, Uncoded 10/12/24 08:38) skin problems POLYGLACTIC ACID(DEXON & VICRYL) Allergy (Unknown, Uncoded 10/12/24 08:38) UNKNOWN vicryl Allergy (Unknown, Uncoded 10/12/24 08:38) Unknown Medication List - Last Reconciled 03/03/25 by James Fernando MD acetaminophen 1,000 mg PO TID PRN apixaban (Eliquis) 5 mg PO BID aspirin 81 mg PO MOWEFR atorvastatin 20 mg PO BEDTIME ayehossqpn-qobtzggrjewqb-ypat 50-325-40 mg 1 tab PO Q6H PRN cholecalciferol (vitamin D3) 25 mcg PO DAILY clonazepam 0.25 - 0.5 mg PO DAILY PRN cyanocobalamin (vitamin B-12) 1,000 mcg PO DAILY diclofenac sodium 1% 2 grams topical QID PRN diltiazem HCl CD 120 mg PO BEDTIME eplerenone 12.5 mg (1/2 x 25 mg) PO DAILY finasteride 5 mg PO DAILY fluticasone propionate 50 mcg/actuation (Flonase Allergy Relief) 1 spray intranasal BID furosemide 40 mg See Protocol PO DAILY ipratropium-albuterol 20-100 mcg/actuation 1 puff inhalation QID PRN ketoconazole 2% 1 appl topical DAILY PRN metformin ER 750 mg PO BEDTIME miconazole nitrate 2% 1 appl topical DAILY PRN mometasone 200 mcg/actuation 2 puffs inhalation BID montelukast 10 mg PO BEDTIME omeprazole 40 mg PO BEDTIME@2100 saw palmetto 160 mg PO DAILY tadalafil (Cialis) 5 mg PO BEDTIME terazosin 10 mg PO DAILY HPI Comments Details: Edwar comes for follow-up after hospitalization September with Enterococcus septicemia with prosthetic valve endocarditis. This was suspected to be related to urinary tract infection. Patient had a very prolonged hospital course and then subsequent rehab course. Patient then finished 6 weeks of antibiotics IV. Subsequently had repeat blood cultures which has been negative. He has not sepsis symptoms with no fever or he has been gradually recuperating. He said he has been walking and the other day walk 3 miles although with multiple breaks. His main issues continued pain in his back. He has not had any heart failure symptoms, PND, worsening leg edema or weight gain. Echocardiogram done during september also had shown reduction LV ejection fraction of 39% although this was in the setting of severe sepsis. Prior to that his echocardiogram showed normal LV ejection fraction. No repeat echocardiogram has been performed. He is quite overall frustrated with care but he said he is getting better. He is taking all his medications. He has not had any repeat neurologic symptoms on current medications. He has developed some noncardiac issues including a chipped tooth for which he needs to undergo local procedure. He had also was noted to have thyroid nodule for which she needs fine-needle aspiration. He also needs to undergo upper and lower endoscopy in May. He has not developed any bleeding issues. He denies any chest pain. No lightheadedness, syncope. Taking all his medications. [facility] Medical History (Updated 03/03/25 @ 14:25 by James Fernando MD) Atrial flutter Acute on chronic diastolic heart failure due to valvular disease Prosthetic mitral valve stenosis CVA (cerebral vascular accident) Paroxysmal atrial flutter Prosthetic valve dysfunction Elevated cholesterol History of GI diverticular bleed BPH (benign prostatic hyperplasia) History of blood transfusion GERD (gastroesophageal reflux disease) Type 2 diabetes mellitus Depression with anxiety PTSD (post-traumatic stress disorder) Migraine COPD, mild Asthma HTN (hypertension) Obstructive sleep apnea Enlarged RV (right ventricle) Mitral regurgitation Surgical History S/P MVR (mitral valve replacement) History of esophagogastroduodenoscopy (EGD) H/O colonoscopy History of excision of lesion (06/25/22) History of arthroscopy of right knee History of left inguinal hernia repair History of repair of right rotator cuff History of repair of left rotator cuff History of mitral valve replacement Hx of cardiac cath Family History Father Rheumatic fever Mother No problems noted. Sister Hx of aortic valve repair Brother Mitral valve replaced Social History Household Members: Family Housing: House Do you presently have visiting nurse or other home services: No Alcohol intake: current Alcohol intake frequency: does not drink Comment: refusing alarms Patient Tobacco Use Status: Former Tobacco user Second Hand Smoke Exposure: No Advance Directives Date on File: 02/03/24 service: No Current occupational status: retired Current occupation: ambidextrous, 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 Review of Systems Const Denies chills, Denies fatigue, Denies fever(s), Denies frequent falls, Denies weakness, Denies weight gain and Denies weight loss ENT Denies dizziness Card Denies chest pain, Denies leg edema, Denies lightheadedness, Denies palpitations, Denies dyspnea, Denies dyspnea on exertion, Denies orthopnea and Denies other (loss of consciousness) Resp Denies cough, Denies dyspnea and Denies dyspnea on exertion GI Denies hematochezia and Denies change in stool character Musc Denies abnormal gait, Denies muscle weakness, Denies numbness, Denies radiating pain into limb and Denies tingling Neuro Denies abnormal gait, Denies dizziness, Denies frequent falls, Denies numbness, Denies tingling and Denies weakness Endo Denies fatigue and Denies palpitations Physical Exam Vital Signs: Last Vital Signs Pulse 55 03/03/25 12:47 BP 124/82 03/03/25 12:47 BMI result Body Mass Index 28.5 Const General: cooperative, healthy appearing, comfortable and no acute distress Orientation/consciousness: patient oriented x3 Neck Neck: Yes normal visual inspection Resp Effort & Inspection: normal respiratory effort Auscultation: clear to auscultation bilaterally, no rales, no rhonchi and no wheezes Cardio Jugular venous distension: no JVD Rate: regular rate Rhythm: abnormal rhythm Heart sounds: S1 normal heart sound present, S2 normal heart sound present, no murmurs and no rubs Neuro General: patient oriented x3 Extrem Other: sock marking present General: Yes normal to inspection, No clubbing, No cyanosis and No edema Psych Appearance: grossly normal Mental Status: mental status grossly normal Speech and movement: Normal speech and movement present Office Procedures EKG Details: EKG shows atrial fibrillation with slow ventricular response with bifascicular block with right bundle and left anterior fascicular block. [id number], Complete Assessment & Plan Assessment & Plan (1) Prosthetic valve endocarditis: Code(s): T82.6XXA - Infection and inflammatory reaction due to cardiac valve prosthesis, initial encounter; I33.0 - Acute and subacute infective endocarditis Category: Medical Plan: Patient with recent hospitalization with sepsis with Gram-positive cocci. This turned out to be Enterococcus. This was treated with 6 weeks of antibiotics with resolution of his sepsis and bacteremia. Since then he has not had any recurrent symptoms. Needs a follow-up echocardiogram to evaluate for resolution of the endocarditis vegetation. Was discussed with him. He is in agreement. (2) Status post transcatheter mitral valve replacement: Code(s): Z95.2 - Presence of prosthetic heart valve Category: Medical Plan: Status post transcatheter mitral valve replacement for severe mitral stenosis. Patient developed subsequent complication of stroke in his on aspirin therapy in addition. Continue warfarin and aspirin therapy. SBE prophylaxis as per ACC/[facility] guidelines. Follow-up echocardiogram as above. (3) Heart failure due to valvular disease: Code(s): I50.9 - Heart failure, unspecified; I38 - Endocarditis, valve unspecified Category: Medical Plan: Heart failure prior to valve replacement. Clinically still having propensity for heart failure, currently controlled by diuretic regimen furosemide. Advised to continue furosemide therapy. Daily weight monitoring avoidance salt loading was discussed. Not on SGLT2 inhibitor therapy due to intolerance. Continue eplerenone which she is tolerating well. Continue rate control for digoxin. Follow-up echocardiogram near future. Noted cardiomyopathy during severe sepsis most likely related to stress-induced cardiomyopathy rather than a cardiomyopathy process. (4) Atrial flutter: Code(s): I48.92 - Unspecified atrial flutter Category: Medical Qualifiers: Atrial flutter type: typical Qualified Code(s): I48.3 - Typical atrial flutter Plan: Chronic atrial flutter persistent with significant left atrial enlargement and has failed rhythm control approach. He has no symptoms currently and will pursue rate control with Cardizem for now pending findings of echocardiogram. If he has persistent cardiomyopathy process will need to switch to an alternative therapy for rate control. Continue full oral anticoagulation, currently on Eliquis 5 mg b.i.d.. Quarterly renal function test should be pursued. (5) Preoperative cardiovascular examination: Code(s): Z01.810 - Encounter for preprocedural cardiovascular examination Plan: Preoperative cardiovascular examination for tooth repair. This is a low risk procedure and can be done however our advise antibiotic prophylaxis prior to doing tooth repair. I would hold off on holding his Eliquis therapy at this point in time. Preoperative cardiovascular risk stratification for fine-needle aspiration for thyroid nodule. This is also low risk procedure. Patient is optimized to undergo the procedure. There was no antibiotic prophylaxis required although I would avoid holding his oral anticoagulation therapy if possible otherwise hold it for 1-2 doses. Resume as soon as possible after the procedure. Preoperative cardiovascular risk stratification for endoscopy and colonoscopy. This is low to intermediate risk procedure. He has multiple comorbidities for heart issues. At this point time he is optimized to undergo the procedure at current clinical status with low to intermediate risk for perioperative cardiovascular morbidity mortality. If oral anticoagulation needs to be withheld, would bridge with Lovenox therapy. Will follow up in the clinic in 3 months time, sooner PRN. Greater than 40 minutes was spent in managing his complex care. Orders: Orders CA echo transthoracic complete Today I33.0 - Acute and subacute infective endocarditis, T82.6XXA - Infection and inflammatory reaction due to cardiac valve prosthesis, initial encounter Medications: New amoxicillin 2,000 mg (4 x 500 mg) PO ONCE PRN 8 tabs 0RF Prior to dental work I33.0 - Acute and subacute infective endocarditis, T82.6XXA - Infection and inflammatory reaction due to cardiac valve prosthesis, initial encounter Coding Level of Care Code Est Pt Level 5 (93384) Complex EM visit Add On G2211 Diagnoses Prosthetic valve endocarditis T82.6XXA; I33.0 Status post transcatheter mitral valve replacement Z95.2 Heart failure due to valvular disease I50.9; I38 Typical atrial flutter I48.3 Atrial flutter type: typical Preoperative cardiovascular examination Z01.810 CPT Codes EKG - CPT: 10431-Fnbhumlgfkxifjtiz, Complete ([id number])
== END 2025-03-03 13:31 | disposition home or self-care (01) ==
LOC: HO.HCS 12:40
PROVIDERS: PCP Physician Assistant; Visit Provider Internal Medicine Cardiovascular Disease
DX: I33.0 Acute and subacute infective endocarditis (principal); I50.9 Heart failure, unspecified; I38 Endocarditis, valve unspecified; I48.3 Typical atrial flutter; T82.6XXA Infection and inflammatory reaction due to cardiac valve prosthesis, initial encounter; Z95.2 Presence of prosthetic heart valve; Z01.810 Encounter for preprocedural cardiovascular examination
CPT/HCPCS: 93010; 99215; G2211

== ENCOUNTER → 2025-03-03 12:39 | Outpatient (BNVA) | payer MEDICARE, OTHER, SELFPAY | PROVIDERS: PCP Physician Assistant; Visit Provider Internal Medicine Cardiovascular Disease | DX: Z01.810 Encounter for preprocedural cardiovascular examination (principal); T82.6XXD Infection and inflammatory reaction due to cardiac valve prosthesis, subsequent encounter; I33.0 Acute and subacute infective endocarditis; I51.7 Cardiomegaly; I50.9 Heart failure, unspecified; I48.3 Typical atrial flutter; Z95.2 Presence of prosthetic heart valve; Z79.01 Long term (current) use of anticoagulants; Z79.82 Long term (current) use of aspirin; Z79.899 Other long term (current) drug therapy | CPT/HCPCS: 93005; 99212 ==

== ENCOUNTER 2025-03-22 10:22 | Outpatient (AMB) | payer MEDICARE, OTHER, SELFPAY ==
--- NOTE | 2025-03-22 10:30 | MHC.OFFVIS ---
Vital Signs 03/22/25 10:35 Height 5 ft 10 in Weight 192 lb BMI 27.5 BP 132/71 Blood Pressure Location Lt brachial Position Sitting Pulse 76 Intake Visit Reasons: ingunial hernia Intake Note: Patient is seen in office for evaluation of an inguinal hernia. Pt c/o: states has 3 hernias, one umbilical and bilateral inguinal, left groin is more noticeable, had 5 hernias repair in the past, denies n/v/d/c, is on Eliquis (Dr Cornejo) Armor Reconnaissance Specialist Required: No Accompanied by: Family/Other Allergies DUSTIN Inhibitors (Dustin Inhibitors) Allergy (Severe, Verified 03/22/25 10:33) Anaphylaxis pineapple (PINEAPPLE) Allergy (Severe, Verified 03/22/25 10:33) Angioedema thimerosal (Thimerosal) Allergy (Severe, Verified 03/22/25 10:33) Angioedema fluoxetine (From PROZAC) Allergy (Intermediate, Verified 03/22/25 10:33) REQUIRED HOSPITALIZATION tamsulosin Allergy (Mild, Verified 03/22/25 10:33) tacycardia aspartame (ASPARTAME) Allergy (Unknown, Verified 03/22/25 10:33) Unknown hexachlorophene (From PHISOHEX) Allergy (Unknown, Verified 03/22/25 10:33) Unknown melon Allergy (Unknown, Verified 03/22/25 10:33) Unknown perfume Allergy (Unknown, Verified 03/22/25 10:33) Unknown povidone-iodine (From BETADINE) Allergy (Unknown, Verified 03/22/25 10:33) Unknown soap (Betadine) Allergy (Unknown, Verified 03/22/25 10:33) Unknown codeine (Codeine) Adverse Reaction (Intermediate, Verified 03/22/25 10:33) wakes up combative meperidine (From Demerol) Adverse Reaction (Intermediate, Verified 03/22/25 10:33) Hallucinations monosodium glutamate Adverse Reaction (Intermediate, Verified 03/22/25 10:33) Headache morphine Adverse Reaction (Intermediate, Verified 03/22/25 10:33) wakes up combative dexon Allergy (Unknown, Uncoded 03/22/25 10:33) Unknown GLUE IN SHOES Allergy (Unknown, Uncoded 03/22/25 10:33) UNKNOWN PLASTIC TAPE Allergy (Unknown, Uncoded 03/22/25 10:33) skin problems POLYGLACTIC ACID(DEXON & VICRYL) Allergy (Unknown, Uncoded 03/22/25 10:33) UNKNOWN vicryl Allergy (Unknown, Uncoded 03/22/25 10:33) Unknown Medication List - Last Reconciled 03/22/25 by German Lopez MD acetaminophen 1,000 mg PO TID PRN amoxicillin 2,000 mg (4 x 500 mg) PO ONCE PRN apixaban (Eliquis) 5 mg PO BID aspirin 81 mg PO MOWEFR atorvastatin 20 mg PO BEDTIME rttroveftv-hagnaetvpiclj-fbrv 50-325-40 mg 1 tab PO Q6H PRN cholecalciferol (vitamin D3) 25 mcg PO DAILY clonazepam 0.25 - 0.5 mg PO DAILY PRN cyanocobalamin (vitamin B-12) 1,000 mcg PO DAILY diclofenac sodium 1% 2 grams topical QID PRN diltiazem HCl CD 120 mg PO BEDTIME eplerenone 12.5 mg (1/2 x 25 mg) PO DAILY finasteride 5 mg PO DAILY fluticasone propionate 50 mcg/actuation (Flonase Allergy Relief) 1 spray intranasal BID furosemide 40 mg See Protocol PO DAILY ipratropium-albuterol 20-100 mcg/actuation 1 puff inhalation QID PRN ketoconazole 2% 1 appl topical DAILY PRN metformin ER 750 mg PO BEDTIME miconazole nitrate 2% 1 appl topical DAILY PRN mometasone 200 mcg/actuation 2 puffs inhalation BID montelukast 10 mg PO BEDTIME omeprazole 40 mg PO BEDTIME@2100 saw palmetto 160 mg PO DAILY tadalafil (Cialis) 5 mg PO BEDTIME terazosin 10 mg PO DAILY HPI Comments Details: 70-year-old male patient with multiple medical problems presenting for evaluation of possible bilateral inguinal hernias and an umbilical hernia noted on recent imaging. He underwent a CT abdomen and pelvis on 09/15/2024 which noted a fat containing bilateral inguinal hernia and umbilical hernia. The patient denies any significant abdominal pain especially in the groins in his uncertain about any palpable lump. He does have an extensive past medical history including cardiac disease, atrial flutter and valvular heart disease. He underwent a mitral valve replacement in his currently on anticoagulation. His latest ejection fraction was approximately 39%. He denies nausea, vomiting, fever, chills, diarrhea, or constipation. [facility] Medical History Atrial flutter Acute on chronic diastolic heart failure due to valvular disease Prosthetic mitral valve stenosis CVA (cerebral vascular accident) Paroxysmal atrial flutter Prosthetic valve dysfunction Elevated cholesterol History of GI diverticular bleed BPH (benign prostatic hyperplasia) History of blood transfusion GERD (gastroesophageal reflux disease) Type 2 diabetes mellitus Depression with anxiety PTSD (post-traumatic stress disorder) Migraine COPD, mild Asthma HTN (hypertension) Obstructive sleep apnea Enlarged RV (right ventricle) Mitral regurgitation Surgical History S/P MVR (mitral valve replacement) History of esophagogastroduodenoscopy (EGD) H/O colonoscopy History of excision of lesion (06/25/22) History of arthroscopy of right knee History of left inguinal hernia repair History of repair of right rotator cuff History of repair of left rotator cuff History of mitral valve replacement Hx of cardiac cath Family History Father Rheumatic fever Mother No problems noted. Sister Hx of aortic valve repair Brother Mitral valve replaced Social History Household Members: Family Housing: House Do you presently have visiting nurse or other home services: No Alcohol intake: current Alcohol intake frequency: does not drink Comment: refusing alarms Patient Tobacco Use Status: Former Tobacco user Second Hand Smoke Exposure: No Advance Directives Date on File: 02/03/24 service: No Current occupational status: retired Current occupation: ambidextrous, 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 Review of Systems Const All systems reviewed & are unremarkable except as noted in HPI and below Physical Exam Vital Signs: Last Vital Signs Pulse 76 03/22/25 10:35 BP 132/71 03/22/25 10:35 BMI result Body Mass Index 27.5 Const General: cooperative and no acute distress Nutritional Appearance: well nourished Orientation/consciousness: patient oriented x3 Limitations: no limitations HEENT Head: Yes normocephalic and Yes atraumatic Ears: hearing grossly normal bilaterally Resp Effort & Inspection: normal respiratory effort, no audible wheezes, no cough and no respiratory distress Cardio Jugular venous distension: no JVD GI Other: Large pannus, soft and nondistended, nontender to palpation, no rebound, guarding or rigidity. No palpable hernias noted on either side. Patient examined in the standing position with Valsalva maneuvers and no definite hernias are appreciated. Inspection: Yes normal to inspection Skin Other: Warm, dry, no rash Neuro General: patient oriented x3 Extrem General: Yes no clubbing, cyanosis or edema Assessment & Plan Assessment & Plan (1) Bilateral inguinal hernia: Code(s): K40.20 - Bilateral inguinal hernia, without obstruction or gangrene, not specified as recurrent Category: Medical Qualifiers: Obstruction and gangrene presence: without obstruction or gangrene Recurrence: non-recurrent Qualified Code(s): K40.20 - Bilateral inguinal hernia, without obstruction or gangrene, not specified as recurrent Plan 70-year-old male patient presenting with a CT finding of a possible fat containing bilateral inguinal hernia. Patient currently is asymptomatic with no associated symptoms for inguinal hernia. On examination no definite inguinal hernias are palpable with Valsalva maneuvers. The patient has multiple medical issues and certainly would be at high risk for surgery and general anesthesia. I recommended observation with repair only if he becomes more symptomatic. He expressed understanding and agrees with the plan. Coding Level of Care Code New Pt Level 4 (11465) Diagnoses Non-recurrent bilateral inguinal hernia without obstruction or gangrene K40.20 Obstruction and gangrene presence: without obstruction or gangrene Recurrence: non-recurrent
[2025-03-22 10:35] VITALS: BP 132/71; PULSE 76; BMI 27.5
== END 2025-03-22 10:47 | disposition home or self-care (01) ==
LOC: HO.HGS 10:22
PROVIDERS: PCP Physician Assistant; Visit Provider Surgery
DX: K40.20 Bilateral inguinal hernia, without obstruction or gangrene, not specified as recurrent (principal)
CPT/HCPCS: 99214

== ENCOUNTER → 2025-03-22 10:22 | Outpatient (BNVA) | payer MEDICARE, OTHER, SELFPAY | PROVIDERS: PCP Physician Assistant; Visit Provider Surgery | DX: Z71.2 Person consulting for explanation of examination or test findings (principal); K40.20 Bilateral inguinal hernia, without obstruction or gangrene, not specified as recurrent | CPT/HCPCS: 99212 ==

== ENCOUNTER → 2025-04-08 07:37 | Outpatient (REF) | payer MEDICARE, OTHER, SELFPAY ==
--- NOTE | 2025-04-08 07:41 | CA_ITS ---
Transthoracic Echocardiogram Patient (Last, First, Middle): Jared Jama, Gender: M Date of : 1955 Age: 70 Procedure Date: 04/08/2025 Procedure Type: Transthoracic Echocardiogram Location: OP Height: 177.8 cm Weight: 87.09 kg BSA: 2.05 m2 Heart Rate: 67 bpm BP: 124 / 68 mmHg Endless Steamer Tender: TO Referring MD: Jmaes Fernando MD Symptoms: T82.6XXA - Infection and inflammatory reaction due to cardiac valve pros... Study Quality: Adequate ECG Rhythm: Sinus Conclusions: - The left ventricular systolic function is mildly decreased. The calculated ejection fraction is 51% by biplane method. - A bioprosthetic mitral valve is present. The prosthetic mitral valve appears to be functioning normally. - Mild pulmonary hypertension is present. Findings Procedure Information The study quality is limited by the patients inability to tolerate the test. Left Ventricle Normal left ventricular cavity size. There is mildly increased left ventricular wall thickness. The left ventricular systolic function is mildly decreased. The calculated ejection fraction is 51% by biplane method. There is mild global hypokinesis. Diastolic function is indeterminate on the basis of available data. Right Ventricle Mildly increased right ventricular cavity size. There is mildly decreased right ventricular systolic function. Atria The left atrium is moderately dilated. The right atrium is mildly dilated. Aortic Valve There is a normal trileaflet aortic valve. There is mild calcification of the aortic valve. There is no aortic valve stenosis. There is no aortic valve regurgitation. Mitral Valve A bioprosthetic mitral valve is present. The prosthetic mitral valve appears to be functioning normally. There is no mitral valve regurgitation. Mean gradient across the mitral valve 7 mm Hg at 62/Min. Pulmonic Valve The pulmonic valve is likely normal. Tricuspid Valve There is mild to moderate tricuspid valve regurgitation. Mild pulmonary hypertension is present. Great Vessels The asc aorta and aortic arch are normal in size. Venous The inferior vena cava is dilated and collapses less than 50% with inspiration. Pericardium/Pleural There is no evidence of pericardial effusion. Prior Study Comparison Changes noted compared to prior study dated: 09/20/2024. LVEF slightly higher. Previously noted mitral valve vegetation not clearly seen. Measurements 2D Linear Measurements IVSd: 1.28 0.6-0.9/0.6-1.0 cm LVIDd: 4.56 3.9-5.3/4.2-5.9 cm LVIDd Index: 2.22 2.4-3.2/2.2-3.1 cm/m2 LVIDs: 3.50 2.0-3.6 cm LVPWd: 1.14 0.7-1.1 cm LA Diam: 4.80 2.7-3.8/3.0-4.0 cm LAIDs Index: 2.34 1.5-2.3 cm/m2 LV Mass: 255.06 67-162/88-224 g LV Mass Index: 124.42 43-95/49-115 g/m2 LVOT Diam: 2.40 3.0+(-)1.3 cm 2D Systolic Function EF 4C: 52.40 >55% EF 2C: 46.40 >55% EF BiP: 51.20 >55% Mitral Valve MV VTI: 0.69 MV Pk Jose: 2.09 MV Mn Jose: 1.35 MV Pk Grad: 17.00 MV Mn Grad: 8.00 E'Lateral: 5.87 E'Medial: 4.75 MVA Continuity: 1.52 Aortic Valve AoV Pk Jose: 1.35 AoV Mn Jose: 0.93 AoV VTI: 0.27 AoV Pk Grad: 7.00 Aov Mn Grad: 4.00 ANDRES Cont.VTI: 3.81 LVOT LVOT Pk Jose: 1.00 LVOT Mn Jose: 0.70 LVOT VTI: 0.23 LVOT Pk Grad: 4.00 LVOT Mn Grad: 2.00 LVOT Diam: 2.40 LVOT Area: 4.52 Diastolic Function E'Medial: 4.75 E' Laterial: 5.87 Right Ventricle TAPSE (mm): 18.00 TVS' Jose: 10.90 Tricuspid Valve TR Pk Jose: 2.72 TR Pk Grad: 30.00 RA Press: 15.00 RVSP: 45.00 Great Vessels Aorta Sinus of Valsalva: 3.98 2.0-3.5 cm Ao Asc: 3.70 2.1-3.4 cm Ao Arch: 3.30 Updated in Other Vendor System with Status of Final Ok Montero MD electronically signed on 04/09/2025 1:31:42 PM with status of Final
== END ==
LOC: HO.CARD 07:37
PROVIDERS: PCP Physician Assistant; Visit Provider Internal Medicine Cardiovascular Disease
DX: I33.0 Acute and subacute infective endocarditis (principal); T82.6XXA Infection and inflammatory reaction due to cardiac valve prosthesis, initial encounter
CPT/HCPCS: 93306

== ENCOUNTER → 2025-04-08 07:41 | Outpatient (BNV) | payer MEDICARE, OTHER, SELFPAY | PROVIDERS: PCP Physician Assistant; Visit Provider Internal Medicine | DX: I27.20 Pulmonary hypertension, unspecified (principal) | CPT/HCPCS: 93306 ==

== ENCOUNTER 2025-04-13 09:45 | Outpatient (AMB) | payer MEDICARE, OTHER, SELFPAY ==
--- NOTE | 2025-04-13 09:57 | A.OFFVIS_ITS ---
Intake Visit Reasons: 6M UA/PVR(Set) Intake Note: Reason for Visit: UA/PVR Follow Up Urology Meds: Terazosin, Finasteride, Tadalafil Blood Thinners: Eliquis, Aspirin Labs: Last PSA: <0.10 (06/17/2024) Imaging: None Last PVR: 0ml PVR:23ml And Drying Supervisor Cooking Casing Required: No Accompanied by: Self / Same As Patient Allergies DUSTIN Inhibitors (Dustin Inhibitors) Allergy (Severe, Verified 04/13/25 09:57) Anaphylaxis pineapple (PINEAPPLE) Allergy (Severe, Verified 04/13/25 09:57) Angioedema thimerosal (Thimerosal) Allergy (Severe, Verified 04/13/25 09:57) Angioedema fluoxetine (From PROZAC) Allergy (Intermediate, Verified 04/13/25 09:57) REQUIRED HOSPITALIZATION tamsulosin Allergy (Mild, Verified 04/13/25 09:57) tacycardia aspartame (ASPARTAME) Allergy (Unknown, Verified 04/13/25 09:57) Unknown hexachlorophene (From PHISOHEX) Allergy (Unknown, Verified 04/13/25 09:57) Unknown melon Allergy (Unknown, Verified 04/13/25 09:57) Unknown perfume Allergy (Unknown, Verified 04/13/25 09:57) Unknown povidone-iodine (From BETADINE) Allergy (Unknown, Verified 04/13/25 09:57) Unknown soap (Betadine) Allergy (Unknown, Verified 04/13/25 09:57) Unknown codeine (Codeine) Adverse Reaction (Intermediate, Verified 04/13/25 09:57) wakes up combative meperidine (From Demerol) Adverse Reaction (Intermediate, Verified 04/13/25 09:57) Hallucinations monosodium glutamate Adverse Reaction (Intermediate, Verified 04/13/25 09:57) Headache morphine Adverse Reaction (Intermediate, Verified 04/13/25 09:57) wakes up combative dexon Allergy (Unknown, Uncoded 04/13/25 09:57) Unknown GLUE IN SHOES Allergy (Unknown, Uncoded 04/13/25 09:57) UNKNOWN PLASTIC TAPE Allergy (Unknown, Uncoded 04/13/25 09:57) skin problems POLYGLACTIC ACID(DEXON & VICRYL) Allergy (Unknown, Uncoded 04/13/25 09:57) UNKNOWN vicryl Allergy (Unknown, Uncoded 04/13/25 09:57) Unknown HPI Comments Details: Jared is a pleasant male. He is a patient of Dr. Atkinson. 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 Last visit recommendation to cease Jardiance secondary to polydipsia, nocturia, urinary tract infection May try tadalafil 10 mg as there may be Cardiac benefits Lower urinary tract symptoms Progressive weakness of stream, nocturia, incomplete bladder emptying Background diabetes for greater than 10 years Current therapy with finasteride and terazosin Prior therapy with alpha blockers - did not tolerate tamsulosin secondary to increased heart rate 11/08 Cystoscopy Bladder neck open Trabeculation grade 3 - small diverticulum PFSH Medical History Atrial flutter Acute on chronic diastolic heart failure due to valvular disease Prosthetic mitral valve stenosis CVA (cerebral vascular accident) Paroxysmal atrial flutter Prosthetic valve dysfunction Elevated cholesterol History of GI diverticular bleed BPH (benign prostatic hyperplasia) History of blood transfusion GERD (gastroesophageal reflux disease) Type 2 diabetes mellitus Depression with anxiety PTSD (post-traumatic stress disorder) Migraine COPD, mild Asthma HTN (hypertension) Obstructive sleep apnea Enlarged RV (right ventricle) Mitral regurgitation Surgical History S/P MVR (mitral valve replacement) History of esophagogastroduodenoscopy (EGD) H/O colonoscopy History of excision of lesion (06/25/22) History of arthroscopy of right knee History of left inguinal hernia repair History of repair of right rotator cuff History of repair of left rotator cuff History of mitral valve replacement Hx of cardiac cath Family History Father Rheumatic fever Mother No problems noted. Sister Hx of aortic valve repair Brother Mitral valve replaced Social History Household Members: Family Housing: House Do you presently have visiting nurse or other home services: No Alcohol intake: current Alcohol intake frequency: does not drink Comment: refusing alarms Patient Tobacco Use Status: Former Tobacco user Second Hand Smoke Exposure: No Advance Directives Date on File: 02/03/24 service: No Current occupational status: retired Current occupation: ambidextrous, 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 Review of Systems Const Denies chills and Denies fever(s) Card Reports no additional complaints and Denies syncope Resp Denies cough GI Denies abdominal pain and Denies heartburn Reports as per HPI and Denies change in libido Neuro Denies syncope Psych Denies change in libido Endo Denies change in libido Physical Exam Const General: cooperative, healthy appearing, comfortable and no acute distress Orientation/consciousness: patient oriented x3 HEENT Face and sinus: Yes normal facial exam Mouth: moist mucous membranes Neck Neck: Yes normal visual inspection, Yes full ROM and Yes trachea midline Chest Chest palpation & inspection: normal inspection of the chest Resp Effort & Inspection: normal respiratory effort, able to speak in complete sentences and no respiratory distress GI Inspection: Yes normal to inspection Back/Spine/Pelvis Cervical Spine: normal cervical lordosis Thoracic/Lumbar Spine: thoracic and lumbar spine normal to inspection Skin General skin exam: no rashes or lesions noted Neuro General: patient oriented x3, gait normal, tone normal and moves all extremities Extrem General: Yes normal to inspection and Yes capillary refill normal Office Procedures Post Void Residual Post Residual Void Post Void Residual (PVR): 23 [id number] Void Residual by ultrasound Results AMB Urinalysis, Automated UA Leukoctes 0 Brenna/uL Last Edit by FORREST Herrera on 04/13/25 10:09 UA Nitrite Negative Last Edit by FORREST Herrera on 04/13/25 10:09 UA Urobilinogen 0.2 mg/dL Last Edit by FORREST Herrera on 04/13/25 10:0 9 UA Protein 0 mg/dL Last Edit by FORREST Herrera on 04/13/25 10:09 UA pH 5.5 Last Edit by FORREST Herrera on 04/13/25 10:09 UA Blood 0 Kory/uL Last Edit by FORREST Herrera on 04/13/25 10:09 UA Specific [place] 1.010 Last Edit by FORREST Herrera on 04/13/25 10: 09 UA Ketone Negative Last Edit by Camryn Lanza RMA on 04/13/25 10:09 UA Bilirubin 0 mg/dL Last Edit by Camryn Lanza, RMA on 04/13/25 10:09 UA Glucose 0 mg/dL Last Edit by Camryn Lanza, RMA on 04/13/25 10:09 Results Reviewed Results Reviewed: Laboratory Last Values Urine pH (Auto) 5.5 04/13/25 10:08 Specific [place] (Auto) 1.010 04/13/25 10:08 Urine Protein (Auto) 0 mg/dL 04/13/25 10:08 Glucose (UA)(Auto) 0 mg/dL 04/13/25 10:08 Urine Ketones (Auto) Negative 04/13/25 10:08 Urine Blood (Auto) 0 Kory/uL 04/13/25 10:08 Urine Nitrite (Auto) Negative 04/13/25 10:08 Urine Bilirubin (Auto) 0 mg/dL 04/13/25 10:08 Urine Urobilinogen (Auto) 0.2 mg/dL 04/13/25 10:08 Leukocyte Esterase (Auto) 0 Brenna/uL 04/13/25 10:08 Assessment & Plan Assessment & Plan (1) Weak urinary stream: Code(s): R39.12 - Poor urinary stream Category: Medical (2) Erectile dysfunction associated with type 2 diabetes mellitus: Code(s): E11.69 - Type 2 diabetes mellitus with other specified complication; N52.1 - Erectile dysfunction due to diseases classified elsewhere Category: Medical (3) Overactive bladder: Code(s): N32.81 - Overactive bladder Category: Medical Plan Six-month follow-up Orders: Orders AMB Post Void Residual by ultrasound Today N32.81 - Overactive bladder AMB Urinalysis Automated Today Z13.9 - Encounter for screening, unspecified Patient Instructions: This note is constructed using voice recognition software. While every effort has been made to ensure accuracy material control supervisor errors may have been included. Imaging studies, laboratory and physical exam results were discussed and reviewed in detail. No major barriers to patient understanding were identified. An opportunity to ask questions regarding the treatment plan was provided. All questions were answered. The patient expressed understanding and agreement with the above treatment plan. The patient is aware they should contact our office by phone for worsening of their current condition or the appearance of new urologic symptoms. Compliance is encouraged with any medications and followup testing that is ordered. It is a privilege to participate in the urologic care of your patient. If you have any questions or concerns regarding treatment for the above conditions, or other urologic issues, please do not hesitate to contact me. The office telephone contact is [phone]. Sincerely, Dr Pierre Rajput MD, [facility] - Urology Compassionate Specialist Care for the Genitourinary System Coding Level of Care Code Est Pt Level 3 (89625) Complex visit Add On G2211 Diagnoses Weak urinary stream R39.12 Erectile dysfunction associated with type 2 diabetes mellitus E11.69; N52.1 Overactive bladder N32.81 CPT Codes Post Residual Void - PVR CPT Code: 26345-Mjdf Void Residual by ultrasound ([id number])
== END 2025-04-13 10:52 | disposition home or self-care (01) ==
LOC: HO.HUSH 09:46
PROVIDERS: PCP Internal Medicine; Visit Provider Urology
DX: R39.12 Poor urinary stream (principal); E11.69 Type 2 diabetes mellitus with other specified complication; N52.1 Erectile dysfunction due to diseases classified elsewhere; N32.81 Overactive bladder; Z13.9 Encounter for screening, unspecified
CPT/HCPCS: 99213; G2211

== ENCOUNTER → 2025-04-13 09:45 | Outpatient (BNVA) | payer MEDICARE, OTHER, SELFPAY | PROVIDERS: PCP Internal Medicine; Visit Provider Urology | DX: R39.12 Poor urinary stream (principal); E11.69 Type 2 diabetes mellitus with other specified complication; N52.1 Erectile dysfunction due to diseases classified elsewhere; N32.81 Overactive bladder | CPT/HCPCS: 51798; 81003; 99212 ==